=== PATIENT | female | born 1975 | race Caucasian/White ===

== ENCOUNTER 2018-04-30 19:15 | Emergency (ER) | payer OTHER, SELFPAY ==
[2018-04-30 19:16] VITALS: BP 160/94; PULSE 114; RESP 16; TEMP 36.9; O2SAT 97; BMI 21.7
--- NOTE | 2018-04-30 20:34 | ED.DCSUM_ITS ---
- ER Visit Summary Date of Service: 04/30/18 Chief Complaint: Wants EtOH level drawn History of Present Illness: The patient is a 42 F who reports that a custody agreement with her ex which allows for random alcohol checks. Patient reportedly blue at the level of approximately 0.014 tonight. Per the custody agreement she has to have a blood test drawn within 2 hours. Patient states she has not had any alcohol since 11 PM last night presents shortly after 7 PM for evaluation. She does not have a plan on how this blood test was supposed to be ordered when this is required so she came to the ER for her test. Physical Examination: Vital signs significant for blood pressure of 160/94 with a heart rate of 114. Patient sitting upright in bed no acute distress. Heart is regular rate and rhythm. Lung sounds clear. Abdomen soft nontender. Test Results: EtOH level was drawn and was specifically requested to run the same as she has a legal drop. This returns less than 3. Emergency Department Course and Treatment: I did discuss with the patient that this is not an appropriate emergency room test. The test that we run her alcohol levels off of it is not considered a legal test. Patient needs to contact her primary care physician or someone else who can have a standing order for this test when and if it is needed, but use of the emergency room for this test is not appropriate. Treatment Plan: [] Disposition: Discharge Impression: Requested lab draw This note was generated with [employer] dictation software. It may contain incorrect words, spelling, and punctuation that were not noted in review of the chart prior to signing ED Disposition - Plan for ED Patient: Disposition: Home or Assisted Living Chief Complaint: Abn Labs Referrals: Valerie Mullins MD [Primary Care Provider] -
[2018-04-30 21:47] LABS: Alcohol, Blood (Medical)-Serum < 3.0 mg/dL
[2018-04-30 22:12] VITALS: BP 149/99; PULSE 95; O2SAT 96
--- NOTE | 2018-04-30 22:13 | ED.RN ---
BLOOD ALCOHOL DONE ON ANOTHER MACHINE IN THE LAB WITH A RESULT OF < 3. RESULTS GIVEN TO PATIENT BY DR. BUSTAMANTE.
--- OUTSIDE RECORDS SUMMARY | 2018-06-24 00:53 | XMS RPT_ITS ---
:1975 Author Organization OH[facility] Care Team Providers Name Role Phone MICHAELA ABDUL Attending Unavailable TALAMPAS MICHAELA Aisha Attending Unavailable TALAMPASJULIANA Aisha Referring Unavailable Talampas, Michaela Attending Unavailable Talampas, Michaela Primary Care Unavailable Talampas Michaela Attending Unavailable Talampas, Michaela Referring Unavailable Talampas, Michaela Primary Care Unavailable Talampas, Michaela Primary Care Unavailable Edith Mccloud Attending Unavailable PROBLEMS PROBLEMS DATE TYPE CONDITION / CODE ATTENDING STATUS SOURCE 06/02/2017 Unknown G62.9 - Talampwillie, Michaela Active [facility] Polyneuropathy, Community unspecified / Hospital G62.9(ICD-10) Repository 06/02/2017 Unknown G43.109 - Talampas, Michaela Active [facility] Migraine with Community aura, not Hospital intractable, Repository without status migrainosus / G43.109(ICD-10) PROCEDURES PROCEDURES No Procedure Records FoundRESULTS RESULTS EMERGENCY DEPARTMENT Observed: 05/01/2018 Status: F Source: [place] SUMMARY 12:47 AM [facility] REPOSITORY [facility] Medical Records Department [address] [place] [address] Emergency Department Summary 04/30/182032 MR#: [id number] Acct: [id number] Name: ZARA MCINTOSH Rep #: [id number] : 1975 42 From: Edith Mccloud MD PCP: Michaela Abdul MD Status: DEP ER - ER Visit Summary Date of Service: 04/30/18 Chief Complaint: Wants EtOH level drawn History of Present Illness: The patient is a 42 F who reports that a custody agreement with her ex which allows for random alcohol checks. Patient reportedly blue at the level of approximately 0.014 tonight. Per the custody agreement she has to have a blood test drawn within 2 hours. Patient states she has not had any alcohol since 11 PM last night presents shortly after 7 PM for evaluation. She does not have a plan on how this blood test was supposed to be ordered when this is required so she came to the ER for her test. Physical Examination: Vital signs significant for blood pressure of 160/94 with a heart rate of 114. Patient sitting upright in bed no acute distress. Heart is regular rate and rhythm. Lung sounds clear. Abdomen soft nontender. Test Results: EtOH level was drawn and was specifically requested to run the same as she has a legal drop. This returns less than 3. Emergency Department Course and Treatment: I did discuss with the patient that this is not an appropriate emergency room test. The test that we run her alcohol levels off of it is not considered a legal test. Patient needs to contact her primary care physician or someone else who can have a standing order for this test when and if it is needed, but use of the emergency room for this test is not appropriate. Treatment Plan: [] Disposition: Discharge Impression: Requested lab draw This note was generated with Munchkin dictation software. It may contain incorrect words, spelling, and punctuation that were not noted in review of the chart prior to signing ED Disposition - Plan for ED Patient: Disposition: Home or Assisted Living Chief Complaint: Abn Labs Referrals: Michaela Abdul MD [Primary Care Provider] - What to do if you have Problems For any increased pain, shortness of breath, bleeding, nausea or vomiting, chest pain, or any unexpected problems, contact your Primary Care Provider. Call [facility] ([phone]) or report to the closest Emergency Room. Call 911 if necessary. 05/01/18 0047 <Electronically signed by Edith Mccloud MD> Date Edith Mccloud MD Cosigner Signature (If Indicated): Date CC: Michaela Abdul MD DISCHARGE INSTRUCTION Observed: 04/30/2018 Status: F Source: [place] 8:35 PM [facility] REPOSITORY [facility] Medical Records Department [address] [place] [address] Discharge Instruction 04/30/182033 MR#: [id number] Acct: [id number] Name: ZARA MCINTOSH Rep #: [id number] : 1975 42 From: Edith Mccloud MD PCP: Michaela Abdul MD Status: REG ER ED Disposition - Plan for ED Patient: Disposition: Home or Assisted Living Chief Complaint: Abn Labs Referrals: Michaela Abdul MD [Primary Care Provider] - What to do if you have Problems For any increased pain, shortness of breath, bleeding, nausea or vomiting, chest pain, or any unexpected problems, contact your Primary Care Provider. Call [facility] ([phone]) or report to the closest Emergency Room. Call 911 if necessary. 04/30/182034 <Electronically signed by Edith Mccloud MD> Date Edith Mccloud MD Cosigner Signature (If Indicated): Date CC: Michaela Abdul MD ALCOHOL, BLOOD Collected: 04/30/2018 Status: C Source: [place] (MEDICAL)-SERUM 7:44 PM [facility] REPOSITORY TYPE CODE TESTS RESULT OUT OF RANGE REFERENCE UNITS LAB L501.9100 mg/dL Normal SERUM < 3.0 ETOH Result Comment: RESULTS CALLED TO AMANDEEP 04/30/182145 Sofi Munguia. REPORT READ BACK BY SAME. The serum:whole blood ethanol ratio is approximately 1.14 and varies slightly with hematocrit. Medical Alcohol reference interval and critical value in non-tolerant individuals; 50 - 100 Impairment 100 Intoxication 100 - 250 Severe Poisoning 250 - 400 Deep/possible fatal coma AMENDED REPORT 04/30/182143 SERUM ETOH previously reported as: 3.0 mg/dL The serum:whole blood ethanol ratio is approximately 1.14 and varies slightly with hematocrit. Medical Alcohol reference interval and critical value in non-tolerant individuals; 50 - 100 Impairment 100 Intoxication 100 - 250 Severe Poisoning 250 - 400 Deep/possible fatal coma Performed By: #### L501.9100 #### [facility] [address] [place], [address] PROGRESS Observed: 04/18/2018 Status: COMPLETED Source: [place] 6:14 PM [facility] [place] REPOSITORY HNO ID: [id number] Author: Michaela Abdul Service: (none) Author Type: Physician Type: Progress Notes Filed: 04/30/2018 9:59 PM Note Text: This note was created using [employer]. Subjective Zara Mcintosh is a 42 year old female. Patient presents with: Recheck: Follow up SUBJECTIVE: Zara Mcintosh is a 42 year old year old lady here today for 6 month follow up appointment for review of medical conditions. Things doing okay. But still with nerve pain in hands. Tight shoes on feet feels better; cannot walk bare foot. Needs hard sole. Hands a little worse with being on computer more at work. Has not seen neurologist yet. Doing okay on anxiety med just orn. Noted spots on chest--not healing. at least 3 months. Can itch. Will bleed when itched but not severe bleeding. One with tiny crust. One in mid-chest there the longest. About 6mm diameter. Also noted issues with scalp psoriasis--scaling. has white plaques in the scalp. PAST MEDICAL HISTORY Diagnosis Date - Allergic rhinitis, cause unspecified 10/27/2006 - Diarrhea - Generalized anxiety disorder - Migraine headache with aura 01/17/2013 rarely has; only had 2 since last appointment - Polyneuropathy (HCC) EMG 2017 Current Outpatient Prescriptions: doxepin capsule 10 mg Take 2-3 capsules by mouth daily at bedtime. gabapentin (NEURONTIN) 100 mg capsule Take 1 capsule by mouth three times daily for 180 days. As directed DULoxetine (CYMBALTA) 20 mg capsule Take 1 capsule by mouth twice daily. SUMAtriptan (IMITREX) 50 mg tablet Take 1 tablet by mouth as needed. Take at onset of migraine and may repeat after 2 hours if needed prochlorperazine (COMPAZINE) 10 mg tablet Take 1 tablet by mouth every 6 hours as needed. Levocetirizine (XYZAL) 5 mg tablet Take one to two tablets once daily as needed (for itching, sneezing or runny nose.) Azelastine (ASTEPRO) 0.15 % (205.5 mcg) spry Use 2 Sprays in each nostril twice daily as needed. fluticasone (FLONASE) 50 mcg/actuation nasal spray 2 sprays to each nostril one to two times daily. olopatadine (PATANOL) 0.1 % ophthalmic solution Use 1-2 Drops in both eyes twice daily as needed. ALPRAZolam (XANAX) 0.25 mg tablet Take 1-2 tablets by mouth twice daily as needed for Anxiety for up to 30 days. cyanocobalamin (VITAMIN B-12) 1,000 mcg tab Take 1 tablet by mouth once daily. (Patient not taking: Reported on 10/22/2017 ) No current facility-administered medications for this visit. Review of Systems Skin: See HPI Neurological: See HPI Psychiatric/Behavioral: See HPI Objective BP 130/98 Pulse 88 Resp 20 Wt 61.9 kg (136 lb 6.4 oz) BMI 21.36 kg/m? Physical Exam Constitutional: She is oriented to person, place, and time. She appears well-developed and well-nourished. HENT: Head: Normocephalic. Eyes: Conjunctivae are normal. Cardiovascular: Normal rate and regular rhythm. Pulmonary/Chest: Effort normal and breath sounds normal. Neurological: She is alert and oriented to person, place, and time. Skin: Skin is warm and dry. Scalp with areas of white scale, some areas with thick while plaque Psychiatric: She has a normal mood and affect. Thought content normal. Assessment and Plan Encounter Diagnosis ICD-10-CM 1. Generalized anxiety disorder F41.1 ALPRAZolam (XANAX) 0.25 mg tablet DULoxetine (CYMBALTA) 20 mg capsule gabapentin (NEURONTIN) 100 mg capsule 2. Polyneuropathy (HCC) G62.9 DULoxetine (CYMBALTA) 20 mg capsule gabapentin (NEURONTIN) 100 mg capsule doxepin capsule 10 mg 3. Scalp psoriasis L40.9 mometasone (ELOCON) 0.1 % cream 4. Migraine with aura and without status migrainosus, not intractable G43.109 SUMAtriptan (IMITREX) 50 mg tablet flared up with stressors 5. Primary insomnia F51.01 gabapentin (NEURONTIN) 100 mg capsule doxepin capsule 10 mg 6. Skin lesions L98.9 CONSULT TO DERMATOLOGY chest--not resolving; nodular/papular; can be itchy Above issues addressed with patient. Patient involved in shared decision making for management of medical issues. History and medications reviewed. Epic updated as needed Refills taken care of and meds adjusted as indicated after reviewed history, exam and labs. Health Maintenance reviewed. Updated record and/or ordered tests as recorded. Encouraged on efforts at healthy diet and regular exercise and adequate sleep. Will try elocon for scalp while waiting to see instructional facilitator for scalp psoriasis issue as well as for the spot on her chest that she has been worried about. Further evaluation and treatment as indicated. Discussed ongoing pain issues. Meds as discussed. See neurologist as indicated. Further evaluation and treatment as indicated. Anxiety doing okay. Continue present management. PDMP website checked and validated. All prescriptions have been APPROPRIATELY filled. No suspicious activity was identified. 03/31/2018 by Michaela Abdul MD The majority of the visit was spent counseling and/or coordinating care for the patient. Cddz-km-zmjc time was at least 25 minutes. Michaela Abdul MD CNOV Observed: 04/18/2018 Status: COMPLETED Source: [place] 5:40 PM [facility] REPOSITORY Office Visit (INTMWS) ZARA MCINTOSH ([id number]) 1975 F Date Time Provider Department 04/18/18 5:40 PM MICHAELA ABDUL INTZ[place] During your visit today, we recorded the following information about you: Pulse Respiration Blood pressure Weight 88/minute 20/minute 130/98 61.9 kg Michaela Abdul MD 04/30/2018 9:59 PM Signed This note was created using [employer]. Subjective Zara Mcintosh is a 42 year old female. Patient presents with: Recheck: Follow up SUBJECTIVE: Zara Mcintosh is a 42 year old year old lady here today for 6 month follow up appointment for review of medical conditions. Things doing okay. But still with nerve pain in hands. Tight shoes on feet feels better; cannot walk bare foot. Needs hard sole. Hands a little worse with being on computer more at work. Has not seen neurologist yet. Doing okay on anxiety med just orn. Noted spots on chest--not healing. at least 3 months. Can itch. Will bleed when itched but not severe bleeding. One with tiny crust. One in mid-chest there the longest. About 6mm diameter. Also noted issues with scalp psoriasis--scaling. has white plaques in the scalp. PAST MEDICAL HISTORY Diagnosis Date - Allergic rhinitis, cause unspecified 10/27/2006 - Diarrhea - Generalized anxiety disorder - Migraine headache with aura 01/17/2013 rarely has; only had 2 since last appointment - Polyneuropathy (HCC) EMG 2017 Current Outpatient Prescriptions: doxepin capsule 10 mg Take 2-3 capsules by mouth daily at bedtime. gabapentin (NEURONTIN) 100 mg capsule Take 1 capsule by mouth three times daily for 180 days. As directed DULoxetine (CYMBALTA) 20 mg capsule Take 1 capsule by mouth twice daily. SUMAtriptan (IMITREX) 50 mg tablet Take 1 tablet by mouth as needed. Take at onset of migraine and may repeat after 2 hours if needed prochlorperazine (COMPAZINE) 10 mg tablet Take 1 tablet by mouth every 6 hours as needed. Levocetirizine (XYZAL) 5 mg tablet Take one to two tablets once daily as needed (for itching, sneezing or runny nose.) Azelastine (ASTEPRO) 0.15 % (205.5 mcg) spry Use 2 Sprays in each nostril twice daily as needed. fluticasone (FLONASE) 50 mcg/actuation nasal spray 2 sprays to each nostril one to two times daily. olopatadine (PATANOL) 0.1 % ophthalmic solution Use 1-2 Drops in both eyes twice daily as needed. ALPRAZolam (XANAX) 0.25 mg tablet Take 1-2 tablets by mouth twice daily as needed for Anxiety for up to 30 days. cyanocobalamin (VITAMIN B-12) 1,000 mcg tab Take 1 tablet by mouth once daily. (Patient not taking: Reported on 10/22/2017 ) No current facility-administered medications for this visit. Review of Systems Skin: See HPI Neurological: See HPI Psychiatric/Behavioral: See HPI Objective BP 130/98 Pulse 88 Resp 20 Wt 61.9 kg (136 lb 6.4 oz) BMI 21.36 kg/m? Physical Exam Constitutional: She is oriented to person, place, and time. She appears well-developed and well-nourished. HENT: Head: Normocephalic. Eyes: Conjunctivae are normal. Cardiovascular: Normal rate and regular rhythm. Pulmonary/Chest: Effort normal and breath sounds normal. Neurological: She is alert and oriented to person, place, and time. Skin: Skin is warm and dry. Scalp with areas of white scale, some areas with thick while plaque Psychiatric: She has a normal mood and affect. Thought content normal. Assessment and Plan Encounter Diagnosis ICD-10-CM 1. Generalized anxiety disorder F41.1 ALPRAZolam (XANAX) 0.25 mg tablet DULoxetine (CYMBALTA) 20 mg capsule gabapentin (NEURONTIN) 100 mg capsule 2. Polyneuropathy (HCC) G62.9 DULoxetine (CYMBALTA) 20 mg capsule gabapentin (NEURONTIN) 100 mg capsule doxepin capsule 10 mg 3. Scalp psoriasis L40.9 mometasone (ELOCON) 0.1 % cream 4. Migraine with aura and without status migrainosus, not intractable G43.109 SUMAtriptan (IMITREX) 50 mg tablet flared up with stressors 5. Primary insomnia F51.01 gabapentin (NEURONTIN) 100 mg capsule doxepin capsule 10 mg 6. Skin lesions L98.9 CONSULT TO DERMATOLOGY chest--not resolving; nodular/papular; can be itchy Above issues addressed with patient. Patient involved in shared decision making for management of medical issues. History and medications reviewed. Epic updated as needed Refills taken care of and meds adjusted as indicated after reviewed history, exam and labs. Health Maintenance reviewed. Updated record and/or ordered tests as recorded. Encouraged on efforts at healthy diet and regular exercise and adequate sleep. Will try elocon for scalp while waiting to see instructional facilitator for scalp psoriasis issue as well as for the spot on her chest that she has been worried about. Further evaluation and treatment as indicated. Discussed ongoing pain issues. Meds as discussed. See neurologist as indicated. Further evaluation and treatment as indicated. Anxiety doing okay. Continue present management. PDMP website checked and validated. All prescriptions have been APPROPRIATELY filled. No suspicious activity was identified. 03/31/2018 by Michaela Abdul MD The majority of the visit was spent counseling and/or coordinating care for the patient. Tqgq-ig-wdid time was at least 25 minutes. MD Michaela Dowell MD 04/18/2018 6:[address] Gonzalez--main practice in [place]; comes to [place]. Consider running socks or plantar fasciitis splints for night . Also can use the socks during the day. Okay to try Alpha lipoic acid and/or B12. Referring Provider: MICHAELA ABDUL [[id number]] Allergies As of Date: 04/18/2018 Noted Allergy Reaction CODEINE 11/29/2005 8 - GI Upset Comments: intolerance environmental [Other] 10/28/2011 14 - Other: See Comments Comments: Cats Dogs Dust mites grasses (September and October) weeds (December, January and February) ragweed (December, January and February MORPHINE 11/29/2005 11 - Vomiting PHENERGAN (PROMETHAZINE HCL) 11/29/2005 11 - Vomiting ZITHROMAX (AZITHROMYCIN) 11/29/2005 6 - Diarrhea 8 - GI Upset Comments: intolerance Date Reviewed: 04/18/2018 Reviewed by: Vanessa Barone LPN - Fully Assessed Reason for Visit: Recheck [92] Cmt: Follow up Primary Visit Diagnosis:Generalized anxiety disorder [F41.1] Other Visit Diagnoses:Polyneuropathy (HCC) [G62.9] Scalp psoriasis [L40.9] Migraine with aura and without status migrainosus, not intractable [G43.109] Comment:flared up with stressors Primary insomnia [F51.01] Skin lesions [L98.9] Comment:chest--not resolving; nodular/papular; can be itchy Order(s):ALPRAZolam (XANAX) 0.25 mg tabletTake 1-2 tablets by mouth twice daily as needed for Anxiety for up to 180 days.Disp: 40 tabletRfl: 1 DULoxetine (CYMBALTA) 20 mg capsuleTake 1 capsule by mouth twice daily.Disp: 180 capsuleRfl: 3 SUMAtriptan (IMITREX) 50 mg tabletTake 1 tablet by mouth as needed. Take at onset of migraine and may repeat after 2 hours if neededDisp: 27 tabletRfl: 3 gabapentin (NEURONTIN) 100 mg capsuleTake 1-2 capsules by mouth three times daily for 180 days. As directedDisp: 540 capsuleRfl: 1 doxepin capsule 10 mgTake 2 capsules by mouth daily at bedtime.Disp: 180 capsuleRfl: 3 CONSULT TO DERMATOLOGY [9003] Order #: [id number]: 1 mometasone (ELOCON) 0.1 % creamApply 1 application to affected area once daily. To scalp. Rinse off in morningDisp: 45 gRfl: 2 Prescriptions as of 04/18/2018 Sig: DULOXETINE 20 MG CAPSULE,CASSIE* Take 1 capsule by mouth twice* SUMATRIPTAN 50 MG TABLET Take 1 tablet by mouth as nee* GABAPENTIN 100 MG CAPSULE Take 1-2 capsules by mouth th* DOXEPIN 10 MG CAPSULE Take 2 capsules by mouth teresa* PROCHLORPERAZINE MALEATE 10 M* Take 1 tablet by mouth every * LEVOCETIRIZINE 5 MG TABLET Take one to two tablets once * AZELASTINE 0.15 % (205.5 MCG)* Use 2 Sprays in each nostril * FLUTICASONE 50 MCG/ACTUATION * 2 sprays to each nostril one * OLOPATADINE 0.1 % EYE DROPS Use 1-2 Drops in both eyes tw* ALPRAZOLAM 0.25 MG TABLET Take 1-2 tablets by mouth twi* MOMETASONE 0.1 % TOPICAL CREAM Apply 1 application to affect* CYANOCOBALAMIN (VIT B-12) 1,0* Take 1 tablet by mouth once d* Patient not taking: Reported on 10/22/2017 Problem List As Of Date 04/18/2018 Noted Resolved ALLERGIC RHINITIS NOS [J30.9] INVALID FOR* GENERALIZED ANXIETY DIS [F41.1] ASTHMA UNSPECIFIED WITH EXAC [J45.901] INVALID FOR* Insomnia [G47.00] INVALID FOR* Acute atopic conjunctivitis [H10.10] INVALID FOR* More... Menorrhagia [N92.0] INVALID FOR* PMDD (premenstrual dysphoric disorder) [F32.81] INVALID FOR* Dysmenorrhea [N94.6] INVALID FOR* Diarrhea [R19.7] Migraine with aura and without status migrainos*INVALID FOR* Polyneuropathy (HCC) [G62.9] More... Other instructions from your clinician: Dr. Gonzalez--main practice in [place]; comes to [place]. Consider running socks or plantar fasciitis splints for night . Also can use the socks during the day. Okay to try Alpha lipoic acid and/or B12. Prescriptions ordered this encounter Disp Refills Start End ALPRAZOLAM 0.25 MG TABLET 40 t* 1 04/18/2018 10/15/2018 Class: Print RX Cmt: 40 pills for 3 months and with 1 refill lasts at least 6 months Route: ORAL Sig: Take 1-2 tablets by mouth twice daily as needed for Anxiety for up to 180 days. DULOXETINE 20 MG CAPSULE,DELAYED REL* 180 * 3 04/18/2018 Route: ORAL Sig: Take 1 capsule by mouth twice daily. SUMATRIPTAN 50 MG TABLET 27 t* 3 04/18/2018 Class: [facility] Route: ORAL Sig: Take 1 tablet by mouth as needed. Take at onset of migraine and may repeat after 2 hours if needed GABAPENTIN 100 MG CAPSULE 540 * 1 04/18/2018 10/15/2018 Class: [facility] Route: ORAL Sig: Take 1-2 capsules by mouth three times daily for 180 days. As directed DOXEPIN 10 MG CAPSULE 180 * 3 04/18/2018 Class: [facility] Route: ORAL Sig: Take 2 capsules by mouth daily at bedtime. MOMETASONE 0.1 % TOPICAL CREAM 45 g 2 04/18/2018 Route: TOPICAL Sig: Apply 1 application to affected area once daily. To scalp. Rinse off in morning Medications Discontinued During This Encounter ALPRAZolam (XANAX) 0.25 mg tablet 20 t* 0 12/20/2017 04/18/2018 Class: Print RX Route: ORAL Sig: Take 1-2 tablets by mouth twice daily as needed for Anxiety for up to 30 days. Disc: Reason for discontinue is not on file. DULoxetine (CYMBALTA) 20 mg capsule 60 c* 5 10/22/2017 04/18/2018 Route: ORAL Sig: Take 1 capsule by mouth twice daily. Disc: Reason for discontinue is not on file. SUMAtriptan (IMITREX) 50 mg tablet 9 ta* 2 09/21/2017 04/18/2018 Route: ORAL Sig: Take 1 tablet by mouth as needed. Take at onset of migraine and may repeat after 2 hours if needed Disc: Reason for discontinue is not on file. gabapentin (NEURONTIN) 100 mg capsule 90 c* 5 10/22/2017 04/18/2018 Route: ORAL Sig: Take 1 capsule by mouth three times daily for 180 days. As directed Disc: Reason for discontinue is not on file. doxepin capsule 10 mg 90 c* 11 10/22/2017 04/18/2018 Route: ORAL Sig: Take 2-3 capsules by mouth daily at bedtime. Disc: Reason for discontinue is not on file. Disposition: Return in about 6 months (around 10/16/2018) for 6 months follow up. Follow-up and Disposition History Recorded Encounter Status:Closed by MICHAELA ABDUL MD on 04/30/18 PROGRESS Observed: 10/22/2017 Status: COMPLETED Source: [place] 9:04 AM [facility] REPOSITORY O ID: [id number] Author: Michaela Abdul Service: (none) Author Type: Physician Type: Progress Notes Filed: 11/02/2017 1:10 AM Note Text: Patient presents with: Recheck SUBJECTIVE: Zara Mcintosh is a 42 year old year old lady here today for follow up appointment for review of medical conditions. Ongoing pain in both feet. Hands numb but not painful. Noted had EMG lower extremities and declined getting upper extremity EMGs. Not sleeping well. Hard to be active. Contributes to depression and anxiety. PAST MEDICAL HISTORY Diagnosis Date - Allergic rhinitis, cause unspecified 10/27/2006 - Diarrhea - Generalized anxiety disorder - Migraine headache with aura 01/17/2013 rarely has; only had 2 since last appointment Current Outpatient Prescriptions: ALPRAZolam (XANAX) 0.25 mg tablet Take 1-2 tablets by mouth twice daily as needed for Anxiety for up to 30 days. doxepin capsule 10 mg Take 1-3 capsules by mouth daily at bedtime. SUMAtriptan (IMITREX) 50 mg tablet Take 1 tablet by mouth as needed. Take at onset of migraine and may repeat after 2 hours if needed gabapentin (NEURONTIN) 100 mg capsule Take 1 capsule by mouth daily at bedtime for 30 days. prochlorperazine (COMPAZINE) 10 mg tablet Take 1 tablet by mouth every 6 hours as needed. DULoxetine (CYMBALTA) 20 mg capsule Take 1 capsule by mouth once daily. Levocetirizine (XYZAL) 5 mg tablet Take one to two tablets once daily as needed (for itching, sneezing or runny nose.) Azelastine (ASTEPRO) 0.15 % (205.5 mcg) spry Use 2 Sprays in each nostril twice daily as needed. fluticasone (FLONASE) 50 mcg/actuation nasal spray 2 sprays to each nostril one to two times daily. olopatadine (PATANOL) 0.1 % ophthalmic solution Use 1-2 Drops in both eyes twice daily as needed. cyanocobalamin (VITAMIN B-12) 1,000 mcg tab Take 1 tablet by mouth once daily. (Patient not taking: Reported on 10/22/2017 ) No current facility-administered medications for this visit. OBJECTIVE: BP 112/60 (BP Site: Right Arm, BP Position: Sitting, BP Cuff Size: Regular Adult) Pulse 100 Temp 37.2 ?C (98.9 ?F) (Temporal Artery) Resp 20 Wt 58.1 kg (128 lb) BMI 20.05 kg/m? Patient is alert, oriented times 3, no apparent distress, affect is bright, reactive. Heart: Regular rate, rhythm, no murmurs, gallops, rubs. Lungs: Clear to auscultation, bilaterally, breathing non labored. Ext: No cyanosis, clubbing, or edema. pain with light touch legs ASSESSMENT AND PLAN: Encounter Diagnosis ICD-10-CM 1. Polyneuropathy (HCC) G62.9 doxepin capsule 10 mg gabapentin (NEURONTIN) 100 mg capsule DULoxetine (CYMBALTA) 20 mg capsule 2. Primary insomnia F51.01 doxepin capsule 10 mg gabapentin (NEURONTIN) 100 mg capsule 3. Generalized anxiety disorder F41.1 gabapentin (NEURONTIN) 100 mg capsule DULoxetine (CYMBALTA) 20 mg capsule Meds as above. Will adjust meds as needed to help with control of pain as well as depression and anxiety symptoms associated with persistent and chronic pain. Make sure sleeping adequately since sleep deprivation can contribute to increased pain. Discussed that Cymbalta can help with pain as well as depression and anxiety. Doxepin for sleep could be increased as needed as tolerated for better sleep and pain control. Further evaluation and treatment as indicated. Will hold off on EMG/NCT upper extremity for now. Above issues addressed with patient. Patient involved in shared decision making for management of her medical issues. History and medications reviewed. Epic updated as needed Refills taken care of and meds adjusted as indicated after reviewed history, exam and labs. Health Maintenance reviewed. Updated record and/or ordered tests as recorded. Encouraged on efforts at healthy diet and regular exercise and adequate sleep. The majority of the visit was spent counseling and/or coordinating care for the patient. Dwpw-oa-cnbv time was at least 25 minutes. Michaela Abdul MD CNOV Observed: 10/22/2017 Status: COMPLETED Source: [place] 8:20 AM [facility] REPOSITORY Office Visit (INTMWS) ZARA MCINTOSH ([id number]) 1975 F Date Time Provider Department 10/22/17 8:20 AM MICHAELA ABDUL [facility] During your visit today, we recorded the following information about you: Temperature Pulse Respiration Blood pressure 98.9 degrees 100/minute 20/minute 112/60 Weight 58.1 kg Michaela Abdul MD 11/02/2017 1:10 AM Signed Patient presents with: Recheck SUBJECTIVE: Zara Mcintosh is a 42 year old year old lady here today for follow up appointment for review of medical conditions. Ongoing pain in both feet. Hands numb but not painful. Noted had EMG lower extremities and declined getting upper extremity EMGs. Not sleeping well. Hard to be active. Contributes to depression and anxiety. PAST MEDICAL HISTORY Diagnosis Date - Allergic rhinitis, cause unspecified 10/27/2006 - Diarrhea - Generalized anxiety disorder - Migraine headache with aura 01/17/2013 rarely has; only had 2 since last appointment Current Outpatient Prescriptions: ALPRAZolam (XANAX) 0.25 mg tablet Take 1-2 tablets by mouth twice daily as needed for Anxiety for up to 30 days. doxepin capsule 10 mg Take 1-3 capsules by mouth daily at bedtime. SUMAtriptan (IMITREX) 50 mg tablet Take 1 tablet by mouth as needed. Take at onset of migraine and may repeat after 2 hours if needed gabapentin (NEURONTIN) 100 mg capsule Take 1 capsule by mouth daily at bedtime for 30 days. prochlorperazine (COMPAZINE) 10 mg tablet Take 1 tablet by mouth every 6 hours as needed. DULoxetine (CYMBALTA) 20 mg capsule Take 1 capsule by mouth once daily. Levocetirizine (XYZAL) 5 mg tablet Take one to two tablets once daily as needed (for itching, sneezing or runny nose.) Azelastine (ASTEPRO) 0.15 % (205.5 mcg) spry Use 2 Sprays in each nostril twice daily as needed. fluticasone (FLONASE) 50 mcg/actuation nasal spray 2 sprays to each nostril one to two times daily. olopatadine (PATANOL) 0.1 % ophthalmic solution Use 1-2 Drops in both eyes twice daily as needed. cyanocobalamin (VITAMIN B-12) 1,000 mcg tab Take 1 tablet by mouth once daily. (Patient not taking: Reported on 10/22/2017 ) No current facility-administered medications for this visit. OBJECTIVE: BP 112/60 (BP Site: Right Arm, BP Position: Sitting, BP Cuff Size: Regular Adult) Pulse 100 Temp 37.2 ?C (98.9 ?F) (Temporal Artery) Resp 20 Wt 58.1 kg (128 lb) BMI 20.05 kg/m? Patient is alert, oriented times 3, no apparent distress, affect is bright, reactive. Heart: Regular rate, rhythm, no murmurs, gallops, rubs. Lungs: Clear to auscultation, bilaterally, breathing non labored. Ext: No cyanosis, clubbing, or edema. pain with light touch legs ASSESSMENT AND PLAN: Encounter Diagnosis ICD-10-CM 1. Polyneuropathy (HCC) G62.9 doxepin capsule 10 mg gabapentin (NEURONTIN) 100 mg capsule DULoxetine (CYMBALTA) 20 mg capsule 2. Primary insomnia F51.01 doxepin capsule 10 mg gabapentin (NEURONTIN) 100 mg capsule 3. Generalized anxiety disorder F41.1 gabapentin (NEURONTIN) 100 mg capsule DULoxetine (CYMBALTA) 20 mg capsule Meds as above. Will adjust meds as needed to help with control of pain as well as depression and anxiety symptoms associated with persistent and chronic pain. Make sure sleeping adequately since sleep deprivation can contribute to increased pain. Discussed that Cymbalta can help with pain as well as depression and anxiety. Doxepin for sleep could be increased as needed as tolerated for better sleep and pain control. Further evaluation and treatment as indicated. Will hold off on EMG/NCT upper extremity for now. Above issues addressed with patient. Patient involved in shared decision making for management of her medical issues. History and medications reviewed. Epic updated as needed Refills taken care of and meds adjusted as indicated after reviewed history, exam and labs. Health Maintenance reviewed. Updated record and/or ordered tests as recorded. Encouraged on efforts at healthy diet and regular exercise and adequate sleep. The majority of the visit was spent counseling and/or coordinating care for the patient. Mwnn-ib-cjrm time was at least 25 minutes. MD Michaela Dowell MD 10/22/2017 9:[address] Gonzalez for Neurology Referring Provider: SELF [[id number]] Allergies As of Date: 10/22/2017 Noted Allergy Reaction CODEINE 11/29/2005 8 - GI Upset Comments: intolerance environmental [Other] 10/28/2011 14 - Other: See Comments Comments: Cats Dogs Dust mites grasses (September and October) weeds (December, January and February) ragweed (December, January and February MORPHINE 11/29/2005 11 - Vomiting PHENERGAN (PROMETHAZINE HCL) 11/29/2005 11 - Vomiting ZITHROMAX (AZITHROMYCIN) 11/29/2005 6 - Diarrhea 8 - GI Upset Comments: intolerance Date Reviewed: 10/22/2017 Reviewed by: Ave Lara LPN - Fully Assessed Reason for Visit: Recheck [92] Primary Visit Diagnosis:Polyneuropathy (HCC) [G62.9] Other Visit Diagnoses:Primary insomnia [F51.01] Generalized anxiety disorder [F41.1] Order(s):doxepin capsule 10 mgTake 2-3 capsules by mouth daily at bedtime.Disp: 90 capsuleRfl: 11 gabapentin (NEURONTIN) 100 mg capsuleTake 1 capsule by mouth three times daily for 180 days. As directedDisp: 90 capsuleRfl: 5 DULoxetine (CYMBALTA) 20 mg capsuleTake 1 capsule by mouth twice daily.Disp: 60 capsuleRfl: 5 Prescriptions as of 10/22/2017 Sig: DOXEPIN 10 MG CAPSULE Take 2-3 capsules by mouth da* GABAPENTIN 100 MG CAPSULE Take 1 capsule by mouth three* DULOXETINE 20 MG CAPSULE,CASSIE* Take 1 capsule by mouth twice* ALPRAZOLAM 0.25 MG TABLET Take 1-2 tablets by mouth twi* SUMATRIPTAN 50 MG TABLET Take 1 tablet by mouth as nee* PROCHLORPERAZINE MALEATE 10 M* Take 1 tablet by mouth every * LEVOCETIRIZINE 5 MG TABLET Take one to two tablets once * AZELASTINE 0.15 % (205.5 MCG)* Use 2 Sprays in each nostril * FLUTICASONE 50 MCG/ACTUATION * 2 sprays to each nostril one * OLOPATADINE 0.1 % EYE DROPS Use 1-2 Drops in both eyes tw* CYANOCOBALAMIN (VIT B-12) 1,0* Take 1 tablet by mouth once d* Patient not taking: Reported on 10/22/2017 Problem List As Of Date 10/22/2017 Noted Resolved ALLERGIC RHINITIS NOS [J30.9] INVALID FOR* GENERALIZED ANXIETY DIS [F41.1] ASTHMA UNSPECIFIED WITH EXAC [J45.901] INVALID FOR* Insomnia [G47.00] INVALID FOR* Acute atopic conjunctivitis [H10.10] INVALID FOR* More... Menorrhagia [N92.0] INVALID FOR* PMDD (premenstrual dysphoric disorder) [F32.81] INVALID FOR* Dysmenorrhea [N94.6] INVALID FOR* Diarrhea [R19.7] Migraine with aura and without status migrainos*INVALID FOR* Polyneuropathy (HCC) [G62.9] More... Other instructions from your clinician: Dr. Gonzalez for Neurology Prescriptions ordered this encounter Disp Refills Start End DOXEPIN 10 MG CAPSULE 90 c* 11 10/22/2017 Route: ORAL Sig: Take 2-3 capsules by mouth daily at bedtime. GABAPENTIN 100 MG CAPSULE 90 c* 5 10/22/2017 04/20/2018 Route: ORAL Sig: Take 1 capsule by mouth three times daily for 180 days. As directed DULOXETINE 20 MG CAPSULE,DELAYED REL* 60 c* 5 10/22/2017 Route: ORAL Sig: Take 1 capsule by mouth twice daily. Medications Discontinued During This Encounter doxepin capsule 10 mg 90 c* 0 09/21/2017 10/22/2017 Route: ORAL Sig: Take 1-3 capsules by mouth daily at bedtime. Disc: Reason for discontinue is not on file. gabapentin (NEURONTIN) 100 mg capsule 30 c* 0 09/21/2017 10/22/2017 Route: ORAL Sig: Take 1 capsule by mouth daily at bedtime for 30 days. Disc: Reason for discontinue is not on file. DULoxetine (CYMBALTA) 20 mg capsule 30 c* 2 04/25/2017 10/22/2017 Route: ORAL Sig: Take 1 capsule by mouth once daily. Disc: Reason for discontinue is not on file. Disposition: Return in about 6 months (around 04/24/2018) for 6 months follow up. Follow-up and Disposition History Recorded Encounter Status:Closed by MICHAELA ABDUL MD on 11/02/17 CNPTOUTRNNEKA Observed: 10/04/2017 Status: COMPLETED Source: [place] 12:00 AM [facility] REPOSITORY Patient Outreach (INTMWH) LEAZARA ([id number]) 1975 F Date Time Provider Department 10/04/17 MICHAELA ABDUL [facility] During your visit today, we recorded the following information about you: Allergies As of Date: 10/04/2017 Noted Allergy Reaction CODEINE 11/29/2005 8 - GI Upset Comments: intolerance environmental [Other] 10/28/2011 14 - Other: See Comments Comments: Cats Dogs Dust mites grasses (September and October) weeds (December, January and February) ragweed (December, January and February MORPHINE 11/29/2005 11 - Vomiting PHENERGAN (PROMETHAZINE HCL) 11/29/2005 11 - Vomiting ZITHROMAX (AZITHROMYCIN) 11/29/2005 6 - Diarrhea 8 - GI Upset Comments: intolerance Date Reviewed: 04/25/2017 Reviewed by: Vanessa Barone LPN - Fully Assessed Visit Diagnosis:Medication management [Z79.899] Order(s):HGB A1C [MRYYP2W] Order #: [id number] FUTURE LIPID PANEL BASIC [SQLIPB] Order #: [id number] FUTURE Prescriptions as of 10/04/2017 Sig: SUMATRIPTAN 50 MG TABLET Take 1 tablet by mouth as nee* X ALPRAZOLAM 0.25 MG TABLET Take 1-2 tablets by mouth twi* X DOXEPIN 10 MG CAPSULE Take 1-3 capsules by mouth da* X GABAPENTIN 100 MG CAPSULE Take 1 capsule by mouth daily* PROCHLORPERAZINE MALEATE 10 M* Take 1 tablet by mouth every * X DULOXETINE 20 MG CAPSULE,CASSIE* Take 1 capsule by mouth once * LEVOCETIRIZINE 5 MG TABLET Take one to two tablets once * CYANOCOBALAMIN (VIT B-12) 1,0* Take 1 tablet by mouth once d* Patient not taking: Reported on 10/22/2017 AZELASTINE 0.15 % (205.5 MCG)* Use 2 Sprays in each nostril * FLUTICASONE 50 MCG/ACTUATION * 2 sprays to each nostril one * OLOPATADINE 0.1 % EYE DROPS Use 1-2 Drops in both eyes tw* Problem List As Of Date 10/04/2017 Noted Resolved ALLERGIC RHINITIS NOS [J30.9] INVALID FOR* GENERALIZED ANXIETY DIS [F41.1] ASTHMA UNSPECIFIED WITH EXAC [J45.901] INVALID FOR* Insomnia [G47.00] INVALID FOR* Acute atopic conjunctivitis [H10.10] INVALID FOR* More... Menorrhagia [N92.0] INVALID FOR* PMDD (premenstrual dysphoric disorder) [F32.81] INVALID FOR* Dysmenorrhea [N94.6] INVALID FOR* Diarrhea [R19.7] Migraine with aura and without status migrainos*INVALID FOR* Encounter Status:Closed by EPIC, PRODUSER on 03/10/18 NCS AND/OR EMG Observed: 06/01/2017 Status: F Source: [place] PATIENT 3:44 PM [facility] REPOSITORY [facility] Pulmonary Services/Neurology [address] [place] [address] MR#: [id number] Acct: [id number] Name: ZARA MCINTOSH Rep #: [id number] : 1975 41 From: Tello Guillory MD Referring Dr: Michaela Abdul MD Status: REG CLI Ordering Dr: Date: Location: [facility] Sex: F C NCS and/or EMG Patient Report Ordering Doctor: Michaela Abdul DATE OF SERVICE: 06/01/17 Zara Mcintosh is a 41-year-old female with chief complaint of numbness and burning in both feet. Symptoms have been present for approximately 1 year. She also is noticing numbness in the fingertips. She denies any injury. She reports difficulty walking long distances. Electrodiagnostic findings: Left peroneal motor nerve demonstrates normal distal latency, amplitude with mildly reduction and reduced conduction velocity. Right peroneal motor nerve demonstrates normal distal latency, normal amplitude and mildly reduced conduction velocity. Reduced tibial conduction velocity is noted bilaterally with mildly prolonged right sided distal latency. Prolonged sural latency is noted bilaterally. On needle EMG, all muscles tested in the lower limbs showed no evidence of denervation with normal motor unit action potentials. Electrodiagnostic impression: This is an abnormal study in the lower limbs. 1. Findings suggestive of peripheral polyneuropathy, with evidence of motor and sensory nerve involvement. Etiology of this condition is unknown. Would recommend correlation with one upper limb for a more complete study. 2. No electrodiagnostic evidence is noted for lumbosacral radiculopathy. If there are any further questions, please do not hesitate to contact me 06/01/17 1544 <Electronically signed by Tello Guillory MD> Date Tello Guillory MD CC: Tello Guillory; Michaela Abdul MD Date Dictated: 06/01/17 1501 Date Transcribed: 06/01/171500 [employer] [place] Partie: PARRIS Signed ALLERGIES ALLERGIES DATE TYPE / CODE NAME / CODE REACTION SEVERITY SOURCE Drug codeine/[id number] Nausea Unknown [place] 8 Allergy/558687832( 0(RXNORM) [facility] Drug azithromycin/F006 Diarrhea Unknown [place] 8 Allergy/916639257( 569662(RXNORM) [facility] SNOMED CT) Hospital Repository Drug No Known Unknown [place] 3 Allergy/898441716( Allergies/C959869 [facility]) 388(RXNORM) Hospital Repository Miscellaneous OTHER OTHER: SEE C [place] 2 Allergy/570301779( [facility] SNOMED CT) [place] Rep[facility] DRUG CODEINE GI UPSET [place] 6 INGREDI/327615385( [facility] SNOMED CT) [place] [facility] DRUG MORPHINE Vomiting [place] 6 INGREDI/306833688( [facility] SNOMED CT) [place] [facility] DRUG PROMETHAZINE HCL Vomiting [place] 6 INGREDI/939062650( [facility] SNOMED CT) [place] Rep[facility] DRUG AZITHROMYCIN DIARRHEA [place] 6 INGREDI/590388142( [facility] SNOMED CT) [place] Rep[facility] ENCOUNTERS ENCOUNTERS ADMIT/DISCHARGE ACCOUNT ADMITTING ENCOUNTER LOCATION SOURCE NUMBER CLASS 04/30/2018/04/30/20 [id number] Emergency [place] 18 [facility] ing:ED Repository 04/18/2018/05/01/20 [id number] Ambulatory [address] Repository 10/22/2017/11/03/19 [id number] Ambulatory [address] Repository 09/13/2017 [id number] General acute hospital ing:PSN Repository 06/01/2017 [id number] General acute hospital ing:PSN Repository PAYERS PAYERS ENCOUNTER GUARANTOR PAYER SUBSCRIBER SOURCE 04/30/2018 ZARA L Primary ZARA L [place] [id number] Insurance:MEDICAL METSKERDOB: [facility] [id number] Number: Repository [address]Kje: [phone] [id number] [phone] () Date:[id number] [address] [place] [address]UR: 04/30/2018 Secondary NOT GIVENUNK Negin Insurance:SELF PAY [facility] Number: Effective Repository Date:2018-04-30 09/13/2017 ZARA L Primary ZARA L Negin [id number] [place] Insurance:[facility] METSKERDOB: [address] [id number] [address]Zgm: [phone]) Number: Repository [phone] () [id number] Date:[id number] [address], [place] [address]WX: 09/13/2017 Secondary NOT GIVENUNK Negin Insurance:SELF PAY [facility] Number: Effective Repository Date:2017-06-24 06/01/2017 ZARA L Primary ZARA L Negin [id number] Insurance:[facility] METSKERDOB: [place] [address], [place] Number: Repository [id number]: [phone] [phone] () Date:[id number], [place] [address]WO: 06/01/2017 Secondary NOT GIVENUNK Negin Insurance:SELF PAY [facility] Number: Effective Repository Date:2017-04-27
== END 2018-04-30 22:13 | disposition home or self-care (01) ==
PROVIDERS: Emergency Provider Emergency Medicine; Family Provider Internal Medicine; PCP Internal Medicine
DX: Z02.83 Encounter for blood-alcohol and blood-drug test (principal); F41.9 Anxiety disorder, unspecified; G62.9 Polyneuropathy, unspecified; Z79.899 Other long term (current) drug therapy
CPT/HCPCS: 80320; 99282; G0480

== ENCOUNTER 2019-08-30 12:28 | Inpatient (IN) | payer OTHER, SELFPAY ==
[2019-08-30 12:30] VITALS: BP 152/89; PULSE 115; RESP 18; TEMP 36.4; O2SAT 97; BMI 22.4
--- NOTE | 2019-08-30 12:42 | US_ITS ---
STUDY: ABDOMINAL ULTRASOUND - RIGHT UPPER QUADRANT REASON FOR VISIT: Female, 44 years old ABD PAIN -- ASCITES TECHNIQUE: Ultrasound evaluation of the right upper quadrant was performed with real-time and static santo-scale imaging. TECHNICAL QUALITY: Limited. Examination limited due to the patient?s condition. COMPARISON: None. FINDINGS: Liver: The liver is enlarged and measures 19.4 cm. There is increased echogenicity consistent with fatty infiltration. The bile ducts are within normal limits. There is hepatic color flow. The direction of portal flow is hepatopetal. There is no demonstrated mass lesion. Gallbladder: Normal distended gallbladder. The gallbladder wall measures 1.8 mm. There is a negative sonographic Moore''s sign. There is no pericholecystic fluid. There are no gallstones. Common Bile Duct (C.B.D.): The common bile duct measures 6.2 mm. Pancreas: Normal size of the head, body and tail of the pancreas. There is normal echogenicity of the pancreas. There is no demonstrated pancreatic mass or cyst. Right Kidney: Normal size of the right kidney. The right kidney measures 10.2 cm x 4.8 cm x 3.9 cm. Normal renal cortex. The right cortex measures 1.1 cm. There is no demonstrated renal mass or cyst. There is no right hydronephrosis. US/Abdomen Limited IMPRESSION: Hepatomegaly. Diffuse fatty infiltration of the liver. Electronically Signed: Denzel Quijano, at 14:25 EDT , Service support ,
--- NOTE | 2019-08-30 12:43 | EKG12_ITS ---
Test Reason : Blood Pressure : / mmHG Vent. Rate : 095 BPM Atrial Rate : 095 BPM P-R Int : 144 ms QRS Dur : 072 ms QT Int : 336 ms P-R-T Axes : 050 061 041 degrees QTc Int : 422 ms Normal sinus rhythm Normal ECG Confirmed by EDUARDO BECK, SIN ([id number]), digital editor YUE JACOBO ([id number]) on 09/04/2019 2:16:09 PM Referred By: CHAYO Confirmed By:TELMA CLARK MD
--- NOTE | 2019-08-30 12:44 | ED.DCSUM_ITS ---
History of Present Illness Informant: Patient - Abdominal Pain/Flank Pain Onset: Yesterday Context: Gradual Onset Timing: Continuous Quality: Dull Location: Diffuse Current Severity: Severe Maximum Severity: Severe Worsened by: Movement Relieved by: Remaining Still - Nausea/Vomiting/Emesis GI Symptom: Nausea. Negative for: Vomiting - Diarrhea/Melena/Hematochezia GI Symptom: Negative for: Diarrhea, Melena, Hematochezia Associated Symptoms: Negative for: Dysuria, Frequency, Hematuria, Urgency Narrative: 44-year-old female presents to the emergency department with diffuse abdominal pain and distention that she states is been getting worse since yesterday. Her abdomen is extremely swollen. She has not had any vomiting or diarrhea, melena or hematochezia. No urinary symptoms or back pain. No chest pain or shortness of breath. No leg pain or swelling. She denies history of similar symptoms. She has been eating and drinking normally. She has not had a fever. Denies alcohol use. Denies drug use. Denies history of cirrhosis or hepatitis. Prior similar symptoms: No Recent Illness/Hospitalization: No <Elliot Cabezas - Last Filed: 08/30/19 17:21> <Mya Davies - Last Filed: 08/30/19 18:25> Chief Complaint: Abd Pain Past Medical History Prior records reviewed: Yes Past Medical History: - - Hypertension, hyperlipidemia, type 2 diabetes mellitus, peripheral neuropathy Surgical History: no surgical history Smoking Status: Current every day smoker <Elliot Cabezas - Last Filed: 08/30/19 17:21> <Mya Davies - Last Filed: 08/30/19 18:25> - Allergies and Home Meds Allergies/Adverse Reactions: Allergies azithromycin [From Zithromax] Adverse Reaction (Verified 08/30/19 12:32) Diarrhea codeine Adverse Reaction (Verified 08/30/19 12:32) Nausea promethazine [From Phenergan] Adverse Reaction (Verified 08/30/19 15:11) Vomiting Primary Care Physician: Valerie Mullins MD [Primary Care Provider] - Review of Systems All systems negative except as indicated General: Denies: Chills, Fever Eyes: Denies: Visual changes - bilaterally, Blurred Vision - bilaterally, Diplopia ENT: Denies: Rhinorrhea, Sore throat Cardiovascular: Denies: Chest pain, Palpitations, Heart racing Respiratory: Denies: Dyspnea, Cough, Sputum, Dyspnea on exertion, Orthopnea, Paroxysmal nocturnal dyspnea Gastrointestinal: Reports: Abdominal pain. Denies: Nausea, Vomiting, Diarrhea, Constipation, Melena, Hematochezia Genitourinary: Denies: Dysuria, Hematuria, Frequency Musculoskeletal: Denies: Myalgias, Arthralgias, Neck pain, Back pain, Swelling, Extremity Pain Skin: Denies: Rash, Abscess, Abrasions, Wounds Neurological: Denies: Headache, Weakness, Parasthesia, Numbness <Elliot Cabezas - Last Filed: 08/30/19 17:21> Physical Exam Vital Signs/Narrative: Vital Signs Temp Pulse Resp BP Pulse Ox 08/30/19 12:30 97.6 F L 115 H 18 152/89 H 97 Inital Vital Signs reviewed: Yes General: Well nourished, Well developed, No Acute Distress Head: Normocephalic, Atraumatic Eyes: Perrl, EOMI ENT: Moist mucous membranes Neck: Supple, Nontender Cardiovascular: Regular rate, Regular rhythm, No murmurs Respiratory: No distress, CTA bilaterally, Chest nontender Abdomen: Soft, Nontender, Normal bowel sounds, - - diffusely distended with positive fluid wave Back: Nontender, Normal Inspection Extremities: Nontender, No edema Skin: Normal color, No rash, No Trauma Neurological: Alert, Oriented x3 Psychological: Normal affect, Normal Mood <Elliot Cabezas - Last Filed: 08/30/19 17:21> Vital Signs/Narrative: Vital Signs Pulse Resp BP Pulse Ox 08/30/19 17:08 89 16 143/91 H 96 <Mya Davies - Last Filed: 08/30/19 18:25> Diagnostic/Tx/Re-eval - Medical Decision Making Patient's pain initially treated with Toradol fluids and Zofran. Laboratory work-up was remarkable for white blood cell count of 12. Her lipase is nearly 7694. The rest of her labs are fairly unremarkable. We initially obtained an abdominal ultrasound that showed hepatomegaly with diffuse fatty infiltration of the liver but no other acute abnormality. No gallstones or signs of cholecystitis. Chest x-ray unremarkable as well. CT scan abdomen and pelvis shows findings that indicate non-complicated acute pancreatitis. Repeat exam patient was having continued pain and was given a dose of morphine. We spoke with the hospitalist Dr. Dominguez who evaluated patient in ED. Impressions Abdomen Ultrasound 08/30/19 12:42 IMPRESSION: Hepatomegaly. Diffuse fatty infiltration of the liver. Electronically Signed: Denzel Quijano, at 14:25 EDT , Service support , Chest X-Ray 08/30/19 13:55 IMPRESSION: Normal x-ray examination of the chest. Electronically Signed: Denzel Quijano, at 14:13 EDT , Service support , Abdomen/Pelvis CT 08/30/19 14:26 IMPRESSION: Findings indicative of a noncomplicated acute pancreatitis. Hepatomegaly and diffuse fatty infiltration of the liver. Electronically Signed: Denzel Quijano, at 15:49 EDT , Service support , 08/30/19 12:42 Abdomen Limited [US] Stat 08/30/19 13:55 Chest 1 View (Portable) [RAD] Stat 08/30/19 14:26 CT Abd [Abdomen/Pelvis W IV Cont ONLY] [CT] Stat Laboratory Results 08/30/19 08/30/19 08/30/19 12:45 12:45 12:45 WBC 12.2 H RBC 4.65 Hgb 16.2 H Hct 45.9 MCV 98.7 MCH 34.8 H MCHC 35.3 RDW Std Deviation 41.1 RDW Coeff of Teressa 11.4 L Plt Count 252 MPV 9.6 Immature Gran % (Auto) 0.900 Neut % (Auto) 73.3 H Lymph % (Auto) 18.7 L [place] % (Auto) 5.7 Eos % (Auto) 0.8 Baso % (Auto) 0.6 Absolute Neuts (auto) 9.0 H Absolute Lymphs (auto) 2.28 Nucleated RBC % 0 PT 12.8 INR 1.0 Sodium 136 Potassium 3.3 L Chloride 97 L Carbon Dioxide 26.0 Anion Gap 13 BUN 12 Creatinine 0.82 Estim Creat Clear Calc 81.11 Est GFR (MDRD) Af Amer 96 Est GFR (MDRD) Non-Af 80 BUN/Creatinine Ratio 14.5 Glucose 302 H Calcium 9.0 Total Bilirubin 0.40 AST 50 H ALT 64 H Alkaline Phosphatase 60 Ammonia Troponin I < 0.015 B-Natriuretic Peptide Total Protein 7.7 Albumin 3.8 Globulin 3.9 Albumin/Globulin Ratio 1.0 Lipase 7694 H Urine Color Urine Clarity Urine pH Ur Specific [place] Urine Protein Urine Glucose (UA) Urine Ketones Urine Occult Blood Urine Nitrite Urine Bilirubin Urine Urobilinogen Ur Leukocyte Esterase Urine RBC Urine WBC Ur Squamous Epith Cells Urine Bacteria Urine Mucus 08/30/19 08/30/19 08/30/19 12:45 12:50 13:05 WBC RBC Hgb Hct MCV MCH MCHC RDW Std Deviation RDW Coeff of Teressa Plt Count MPV Immature Gran % (Auto) Neut % (Auto) Lymph % (Auto) [place] % (Auto) Eos % (Auto) Baso % (Auto) Absolute Neuts (auto) Absolute Lymphs (auto) Nucleated RBC % PT INR Sodium Potassium Chloride Carbon Dioxide Anion Gap BUN Creatinine Estim Creat Clear Calc Est GFR (MDRD) Af Amer Est GFR (MDRD) Non-Af BUN/Creatinine Ratio Glucose Calcium Total Bilirubin AST ALT Alkaline Phosphatase Ammonia 23.0 Troponin I B-Natriuretic Peptide 4.8 Total Protein Albumin Globulin Albumin/Globulin Ratio Lipase Urine Color Yellow Urine Clarity Clear Urine pH 5.0 Ur Specific [place] 1.025 Urine Protein 30 H Urine Glucose (UA) 1000 H Urine Ketones 15 H Urine Occult Blood 250 H Urine Nitrite Negative Urine Bilirubin 1 H Urine Urobilinogen 1 H Ur Leukocyte Esterase 25 H Urine RBC 5-10 SEEN Urine WBC 0-5 SEEN Ur Squamous Epith Cells 0-5 SEEN Urine Bacteria RARE Urine Mucus 1+ <Elliot Cabezas - Last Filed: 08/30/19 17:21> - Medical Decision Making Patient reevaluated for pain. She had initially been given 4 mg of IV morphine after the Toradol as it did not provide adequate pain relief. Patient is evaluated by hospitalist who would like to replace potassium and see if we get her pain under control enough to be discharged home. Page was sent to her PCP. Spoke to the on-call physician who is not familiar with the patient. He works at a different office. He was hesitant about outpatient follow-up. On reevaluation the patient still having significant amount of abdominal pain. She is redosed with morphine and Zofran. Decision was made to admit her at this time. Patient agreeable with this plan. She is hemodynamically stable for the general medical floor at time of disposition. <Mya Davies - Last Filed: 08/30/19 18:25> ED Disposition <Elliot Cabezas - Last Filed: 08/30/19 17:21> <Mya Davies - Last Filed: 08/30/19 18:25> - Plan for ED Patient: Disposition: Acute Care Hospital [facility] Diagnosis: Acute pancreatitis Referrals: Valerie Mullins MD [Primary Care Provider] -
[2019-08-30 13:14] LABS: Absolute Lymphocyte Count 2.28 X10^3/uL (0.83-4.51); Basophil# 0.07 X10^3/uL; Basophil% 0.6 % (0-1); Eosinophils% 0.8 % (0-5); Hematocrit 45.9 % (37-47); Hemoglobin 16.2 g/dL (12.0-15.0); Lymphocyte # 2.28 X10^3/ul (4.0); Lymphocyte % 18.7 % (19-41); Mean Corp Hgb Conc 35.3 g/dL (32-36); Mean Corpuscular Hgb 34.8 pg (27.0-32.0); Mean Corpuscular Volume 98.7 fL (81-99); Mean Platelet Vol. 9.6 fl (6.2-12.0); Monocyte% 5.7 % (0-10); NRBC Flagged by Analyzer 0 % (0-5); Neutrophil # 8.95 X10^3/uL (2.7-7.7); Neutrophil % 73.3 % (47-70); Platelet Count 252 K/mm3 (150-450); RBC Distribution Width CV 11.4 % (11.6-14.6); RBC Distribution Width SD 41.1 fl (35.1-43.9); Red Blood Count 4.65 M/mm3 (4.2-5.4); White Blood Count 12.2 K/mm3 (4.4-11.0)
[2019-08-30 13:15] LABS: AST(SGOT) 50 U/L (15-37); Alanine Aminotransfer ALT/SGPT 64 U/L (13-56); Albumin, Serum 3.8 g/dL (3.2-5.0); Alkaline Phosphatase 60 U/L (45-117); Anion Gap 13 (5-15); BUN 12 mg/dL (7-18); BUN/Creat Ratio 14.5 RATIO (10-20); Chloride 97 mmol/L (98-107); Creatinine, Serum 0.82 mg/dL (0.55-1.02); EST Glomerular Filtration Rate 80 mL/min (>60); Est Glom Filt Rate - Afr Amer 96 mL/min (>60); Estimated Creatinine Clearance 81.11 ml/min; Globulin 3.9 g/dL (2.2-4.2); Glucose 302 mg/dL (74-106); Lipase 7694 U/L (73-393); Potassium 3.3 mmol/L (3.5-5.1); Protein, Total 7.7 g/dL (6.4-8.2); Prothrombin Time (Protime)PT. 12.8 SECONDS (11.7-14.9); Sodium Level 136 mmol/L (136-145)
[2019-08-30 13:16] LABS: Color, Urine Yellow (Yellow); Glucose, Dipstick 1000 mg/dl (Normal); Ketone-Dipstick 15 mg/dl (Negative); Leukocyte Esterase-Dipstick 25 /ul (Negative); Nitrite-Dipstick Negative (Negative); Occult Blood-Urine 250 /ul (Negative); Protein-Dipstick 30 mg/dl (Negative); Specific Gravity, Urine 1.025 (1.002-1.030); Urine Clarity Clear (Clear); Urine Urobilinogen 1 mg/dl (Normal)
[2019-08-30 13:21] LABS: Urine Bilirubin Dipstick 1 mg/dL (Negative)
[2019-08-30 13:23] LABS: Bacteria RARE /hpf (None Seen); Mucous, Urine 1+ /hpf (<or=2+); Red Blood Cells-Urine 5-10 SEEN /hpf (0-5); Squamous Epithelial Cells - UA 0-5 SEEN /hpf (5-10); White Blood Cells 0-5 SEEN /hpf (0-5)
[2019-08-30 13:33] LABS: BNP,B-Type NATRIURETIC PEPTIDE 4.8 pg/mL (0-100)
--- NOTE | 2019-08-30 13:55 | RAD_ITS ---
STUDY: X-RAY CHEST REASON FOR EXAM: Female, 44 years old. ABDOMEN PAIN, DISTENTION; -- COUGH TECHNIQUE: Single AP portable view of the chest. COMPARISON: None. FINDINGS: The lungs are clear and expanded. There is no demonstrated pleural abnormality. Normal size heart. Normal mediastinum and niurka. Normal visualized pulmonary arteries. Normal visualized aortic arch and descending thoracic aorta. Normal visualized thoracic spine. Normal visualized ribs, clavicles, and shoulders. There is no demonstrated abnormality of the visualized soft tissue structures of the upper abdomen. RAD/Chest 1 View (Portable) IMPRESSION: Normal x-ray examination of the chest. Electronically Signed: Denzel Quijano, at 14:13 EDT , Service support ,
--- NOTE | 2019-08-30 14:26 | CT_ITS ---
STUDY: CT ABDOMEN AND PELVIS WITHOUT CONTRAST REASON FOR EXAM: Female, 44 years old. ABD PAIN, DISTENTION, ALSO BEING TREATED FOR COUGH RADIATION DOSAGE (If Supplied By Facility): CTDIvol = ( 9.05 ) mGy, DLP = ( 406.11 ) mGycm TECHNIQUE: Transaxial images were obtained from the dome of the diaphragm to the symphysis pubis without oral contrast, and without intravenous contrast. Sagittal and coronal images were reconstructed. Individualized dose optimization techniques were used for this CT. COMPARISON: None. FINDINGS: The visualized lung bases are unremarkable. The visualized portions of the heart are within normal limits. There is decreased attenuation of the liver consistent with steatosis. Hepatomegaly. Normal gallbladder and extrahepatic biliary system. Normal spleen. There is diffuse enlargement of the pancreas with clive-pancreatic edema suggesting acute pancreatitis. Normal bilateral adrenal glands. Normal right kidney. Normal left kidney. Normal visualized stomach. Normal small intestine. Normal colon. The appendix is visualized and appears normal. Normal abdominal aorta. Normal inferior vena cava. Normal retroperitoneum. Normal urinary bladder. There is a 2.3 cm x 2.5 cm left ovarian cyst. Normal abdominal wall. Normal osseous structures. CT/Abdomen/Pelvis W IV Cont ONLY IMPRESSION: Findings indicative of a noncomplicated acute pancreatitis. Hepatomegaly and diffuse fatty infiltration of the liver. Electronically Signed: Denzel Quijano, at 15:49 EDT , Service support ,
[2019-08-30] MEDS: Ketorolac 30 MG/ML Syringe IV (15:12)
[2019-08-30] MEDS: Ondansetron 4 MG/2 ML Vial IV ×2 (15:20→18:37)
[2019-08-30 17:08] VITALS: BP 143/91; PULSE 89; RESP 16; O2SAT 96
[2019-08-30] MEDS: Morphine 4 MG/ML Syringe IV ×2 (17:10→21:42)
[2019-08-30] MEDS: 0.9% Normal Saline 1,000 ML 999 ML IV (17:11)
[2019-08-30] MEDS: Potassium Chloride 10mEq/100mL 10 MEQ/100 ML IV.SOLN. 100 MEQ IV BOLUS ×2 (17:11→18:32)
--- NOTE | 2019-08-30 18:28 | PCM.HP.STD ---
<Shon Valles - Last Filed: 08/30/19 18:28> Problem List (1) Acute pancreatitis Status: Acute (2) Diabetes Status: Chronic Qualifiers: Diabetes mellitus type: type 2 (3) HTN (hypertension) Status: Chronic (4) HLD (hyperlipidemia) Status: Chronic (5) Alcoholism Status: Chronic (6) Nicotine abuse Status: Chronic History of Present Illness Date of Admission: 08/30/19 Chief Complaint: abd pain The patient is a 44 year old F with pmhx of DMt2, HTN, HLD, alcoholism, nicotine abuse who presented to the ER with c/o abdominal pain. This began yesterday afternoon. It is a severe sharp pain in the midepigastric region radiating into the back at times. She is nauseous and vomited the last time she tried to eat a piece of banana breat this AM at about 0730. She also complains of bloating. No fever/chills, chronic diarrhea, no changes. She has had little improvement in the ER. She appears to have pancreatitis. She denies hx of pancreatitis. She states she has been sober 6 months. She does take a statin and losartan, and does not appear to have well controlled DMt2. She is on day 5 of a prednisone taper right now that she states was started for a chronic cough for the past 1.5 months. [] Past Medical History Past Medical History (Chronic Problems): Chronic Problems Diabetes (Chronic) HTN (hypertension) (Chronic) HLD (hyperlipidemia) (Chronic) Alcoholism (Chronic) Nicotine abuse (Chronic) Allergies azithromycin [From Zithromax] Adverse Reaction (Verified 08/30/19 12:32) Diarrhea codeine Adverse Reaction (Verified 08/30/19 12:32) Nausea promethazine [From Phenergan] Adverse Reaction (Verified 08/30/19 15:11) Vomiting Home Medications: Ambulatory Orders Medication Instructions Recorded Duloxetine Hcl [Cymbalta] 20 mg PO BID 04/30/18 Benzonatate [Tessalon Perle] 100 mg PO TID PRN PRN 08/30/19 Doxepin HCl 150 mg PO QHS 08/30/19 Gabapentin [Neurontin] 200 mg PO TID 08/30/19 Losartan Potassium [Cozaar] 50 mg PO DAILY 08/30/19 Prednisone See Taper PO DAILY 08/30/19 Rosuvastatin Calcium 5 mg PO QHS 08/30/19 metFORMIN (XR) [Glucophage Xr] 500 mg PO DAILY 08/30/19 Surgical History: no surgical history Psychiatric History: No pertinent psych hx TECHNICAL SOLUTION ARCHITECT History: No pertinent TECHNICAL SOLUTION ARCHITECT history Lives: With Family Smoking Status: Current every day smoker Tobacco Use: Cigarettes Alcohol: Sober Drugs: None - *Family History Maternal History Items: Cancer - breast cancer, uterine cancer Paternal History Items: Cancer Review of Systems Constitutional: Denies: Chills, Fever, Weight Change HEENT: Denies: Head Aches, Sinus Congestion, Sinus Drainage Cardiovascular: Denies: Chest Pain, Heaviness, Light Headedness, Palpitations Respiratory: Denies: Cough, Shortness of Breath, Shortness of breath at rest, Sputum production Gastrointestinal: Reports: Abdominal Pain, Diarrhea, Nausea, Vomiting Genitourinary: Denies: Dysuria, Hesitancy, Urgency Musculoskeletal: Denies: Joint Pain, Joint Tenderness Skin: Denies: Rash, Wounds Neurological: Denies: Numbness, Tingling, Focal weakness Psychiatric: Denies: Anxiety, Depression, Homicidal Ideations, Suicidal Ideations Hematologic/ Lymphatic: Denies: Easy Bruising, Easy Bleeding VTE Information - Inpt Only VTE Present on Admission: No VTE Mechan Device Prophylaxis: None VTE Pharm Prophylaxis ordered?: No Reason prophylaxis not ordered:: Procedure Not Indicated Patient Problems: Active and Suspected Problems Acute pancreatitis (Acute) - Physical Exam Vitals/I&O's: Vital Signs Temp Pulse Resp BP Pulse Ox 97.6 F L 89 16 143/91 H 96 08/30/19 12:30 08/30/19 17:08 08/30/19 17:08 08/30/19 17:08 08/30/19 17:08 Oxygen Delivery Method Room Air Weight: 138 lb 14.259 oz Body Mass Index (BMI) 22.4 General: Alert, Oriented x3, Cooperative HEENT: Atraumatic, PERRLA, EOMI, Normocephalic Neck: Supple, No JVD, Negative Carotid Bruits Lungs: Clear to auscultation, Normal air movement Cardiovascular: Regular rate, No murmurs Abdomen: Soft, Hypoactive Bowel Sounds, Distended, Tender Extremities: No edema, Capillary Refill Less than 3 Seconds Skin: No rashes, No breakdown Musculoskeletal: No Tenderness to Palpation of Joints or Extremities Neurological: Cranial nerves II-XII grossly intact Psych/Mental Status: Normal Affect, Appropriate, Alert and oriented to time, place, person, mood and affect Laboratory Results 08/30/19 12:45: WBC 12.2 H, RBC 4.65, Hgb 16.2 H, Hct 45.9, MCV 98.7, MCH 34.8 H, MCHC 35.3, RDW Std Deviation 41.1, RDW Coeff of Teressa 11.4 L, Plt Count 252, MPV 9.6, Immature Gran % (Auto) 0.900, Neut % (Auto) 73.3 H, Lymph % (Auto) 18.7 L, [place] % (Auto) 5.7, Eos % (Auto) 0.8, Baso % (Auto) 0.6, Absolute Neuts (auto) 9.0 H, Absolute Lymphs (auto) 2.28, Nucleated RBC % 0 08/30/19 12:45: PT 12.8, INR 1.0 08/30/19 12:45: Sodium 136, Potassium 3.3 L, Chloride 97 L, Carbon Dioxide 26.0, Anion Gap 13, BUN 12, Creatinine 0.82, Estim Creat Clear Calc 81.11, Est GFR (MDRD) Af Amer 96, Est GFR (MDRD) Non-Af 80, BUN/Creatinine Ratio 14.5, Glucose 302 H, Calcium 9.0, Total Bilirubin 0.40, AST 50 H, ALT 64 H, Alkaline Phosphatase 60, Troponin I < 0.015, Total Protein 7.7, Albumin 3.8, Globulin 3.9, Albumin/Globulin Ratio 1.0, Lipase 7694 H 08/30/19 12:45: B-Natriuretic Peptide 4.8 08/30/19 12:50: Ammonia 23.0 08/30/19 13:05: Urine Color Yellow, Urine Clarity Clear, Urine pH 5.0, Ur Specific [place] 1.025, Urine Protein 30 H, Urine Glucose (UA) 1000 H, Urine Ketones 15 H, Urine Occult Blood 250 H, Urine Nitrite Negative, Urine Bilirubin 1 H, Urine Urobilinogen 1 H, Ur Leukocyte Esterase 25 H, Urine RBC 5-10 SEEN, Urine WBC 0-5 SEEN, Ur Squamous Epith Cells 0-5 SEEN, Urine Bacteria RARE, Urine Mucus 1+ Current Medications Potassium Chloride () 10 meq in 100 mls @ 100 mls/hr IV BOLUS Q1H ABE Stop: 08/30/19 18:44 Last Admin: 08/30/19 17:11 Dose: 100 mls/hr Documented by: Assessment/Plan All Active Problems Acute pancreatitis (Acute) 1. Acute pancreatitis unclear etiology - no prior episode. Lipase 7693. CT c/w pancreatitis. Abd US shows hepatomegaly and fatty liver dz. WBC 12.2. K 3.3. Hold statin and losartan. Check lipid panel, a1c, etoh and drug screen. start fluids, pain meds, antiemetics. allergic to Phenergan. 2. DMt2 - glucose 302 and significant glycosuria. check a1c. provide SSI. hold orals. 3. HLD - hold statin 4. HTN - hold losartan. 5. ? Asthma, with chronic cough - on day 5 of prednisone taper. uses home albuterol inhaler. has had cough for 1.5 months. DVT ppx: early ambulation This patient was seen by Shon Valles PA-C under the supervision of Dr. Dominguez. <Lea Dominguez - Last Filed: 08/30/19 18:58> History of Present Illness The patient is a 44 year old F [] Past Medical History Allergies azithromycin [From Zithromax] Adverse Reaction (Verified 08/30/19 12:32) Diarrhea codeine Adverse Reaction (Verified 08/30/19 12:32) Nausea promethazine [From Phenergan] Adverse Reaction (Verified 08/30/19 15:11) Vomiting - Physical Exam Vitals/I&O's: Vital Signs Temp Pulse Resp BP Pulse Ox 97.6 F L 88 17 143/83 H 96 08/30/19 18:40 08/30/19 18:40 08/30/19 18:40 08/30/19 18:40 08/30/19 18:40 Oxygen Delivery Method Room Air Weight: 63 kg Body Mass Index (BMI) 22.4 Intake and Output for Last 24 Hours 08/28/19 08/29/19 08/30/19 23:59 23:59 23:59 Intake Total 100 / 100 Balance 100 / 100 Laboratory Results 08/30/19 12:45: WBC 12.2 H, RBC 4.65, Hgb 16.2 H, Hct 45.9, MCV 98.7, MCH 34.8 H, MCHC 35.3, RDW Std Deviation 41.1, RDW Coeff of Teressa 11.4 L, Plt Count 252, MPV 9.6, Immature Gran % (Auto) 0.900, Neut % (Auto) 73.3 H, Lymph % (Auto) 18.7 L, [place] % (Auto) 5.7, Eos % (Auto) 0.8, Baso % (Auto) 0.6, Absolute Neuts (auto) 9.0 H, Absolute Lymphs (auto) 2.28, Nucleated RBC % 0 08/30/19 12:45: PT 12.8, INR 1.0 08/30/19 12:45: Sodium 136, Potassium 3.3 L, Chloride 97 L, Carbon Dioxide 26.0, Anion Gap 13, BUN 12, Creatinine 0.82, Estim Creat Clear Calc 81.11, Est GFR (MDRD) Af Amer 96, Est GFR (MDRD) Non-Af 80, BUN/Creatinine Ratio 14.5, Glucose 302 H, Calcium 9.0, Total Bilirubin 0.40, AST 50 H, ALT 64 H, Alkaline Phosphatase 60, Troponin I < 0.015, Total Protein 7.7, Albumin 3.8, Globulin 3.9, Albumin/Globulin Ratio 1.0, Lipase 7694 H 08/30/19 12:45: B-Natriuretic Peptide 4.8 08/30/19 12:50: Ammonia 23.0 08/30/19 13:05: Urine Color Yellow, Urine Clarity Clear, Urine pH 5.0, Ur Specific [place] 1.025, Urine Protein 30 H, Urine Glucose (UA) 1000 H, Urine Ketones 15 H, Urine Occult Blood 250 H, Urine Nitrite Negative, Urine Bilirubin 1 H, Urine Urobilinogen 1 H, Ur Leukocyte Esterase 25 H, Urine RBC 5-10 SEEN, Urine WBC 0-5 SEEN, Ur Squamous Epith Cells 0-5 SEEN, Urine Bacteria RARE, Urine Mucus 1+ Assessment/Plan This patient was seen in conjunction with HERNÁN Kaufman. I have independently interviewed and examined the patient and reviewed pertinent historical, laboratory, and other data. Please refer to HERNÁN Kaufman note for his patient's presentation, findings, and recommendations. I have reviewed and his note and concur with his documentation 44-year-old female with past medical history of hypertension, type II DM, hyperlipidemia, history of alcohol use disorder but quit 6 months ago, nicotine dependence who comes in with progressive epigastric discomfort that radiates into her back associated with nausea and vomiting. She denied any fever or chills or diarrhea. She was kept in the ED and hydrated, she has minimal improvement in her symptoms. Recently was on a prednisone taper for chronic cough. Denied any active upper respiratory symptoms. No fevers. No sick contacts. Physical Exam: Gen: appears slightly in pain, not pale, not jaundiced CVS:HS I +II, regular, no murmurs RESP: CTA GI: Distended, BS present and normal, soft, tenderness over epigastric region, no palpable organs EXT:No edema Lipase was 7694, potassium 3.3 ASSESSMENT: 1. Acute pancreatitis, unclear etiology, ultrasound of the gallbladder was negative for cholelithiasis 2. Hypertension, controlled 3. Type II DM, uncontrolled 4. Hyperlipidemia 5. Hypokalemia Plan: Keep n.p.o., IV fluids Potassium replaced in the ED Hold metformin, losartan, rosuvastatin Hydralazine as needed Accu-Cheks with insulin sliding scale Recheck blood work in a.m. Inpatient E&M: [id number] Init Hosp L2
[2019-08-30] MEDS: morphine 8 MG/ML Syringe 6 MG IV (18:37)
[2019-08-30 18:40] VITALS: BP 143/83; PULSE 88; RESP 17; TEMP 36.4; O2SAT 96
[2019-08-30 18:57] VITALS: BMI 22.6
[2019-08-30 19:02] VITALS: BP 154/96; PULSE 78; RESP 16; TEMP 36.9; O2SAT 96
[2019-08-30 19:05] VITALS: BMI 22.6
[2019-08-30 19:31] LABS: Bedside Glucose 244 mg/dL (70-110)
[2019-08-30] MEDS: 0.9% Normal Saline 1,000 ML 150 ML IV (19:42)
[2019-08-30 20:00] VITALS: RESP 18
[2019-08-30 21:13] VITALS: BP 160/81; PULSE 85; RESP 20; TEMP 36.8; O2SAT 93
[2019-08-30] MEDS: 0.9% Saline Lock 10 ML Syringe IV (21:43)
[2019-08-30 21:44] LABS: Amphetamine Urine VISTA NEGATIVE (<1000 ng/mL); Barbiturate Urine VISTA NEGATIVE (< 200 ng/mL); Benzodiazepine Urine VISTA NEGATIVE (< 200 ng/mL); Cocaine Urine VISTA NEGATIVE (< 300 ng/mL); Ecstacy Urine VISTA NEGATIVE (< 500 ng/mL); Methadone Urine VISTA NEGATIVE (< 300 ng/mL); PCP Urine VISTA NEGATIVE (< 25 ng/mL); THC Urine VISTA NEGATIVE (< 50 ng/mL); Vista UDS pH Range 6
[2019-08-30] MEDS: proCHLORPERazine 10 MG/2 ML Vial 5 MG IV (23:44)
[2019-08-30] MEDS: Insulin Lispro 100 UNIT/ML INSULN.PEN SC (23:55)
[2019-08-31 00:01] VITALS: BP 153/82; PULSE 89; RESP 18; TEMP 36.9; O2SAT 93
[2019-08-31 00:41] LABS: Bedside Glucose 267 mg/dL (70-110)
[2019-08-31] MEDS: Morphine 4 MG/ML Syringe IV ×3 (01:09→07:26)
[2019-08-31] MEDS: 0.9% Normal Saline 1,000 ML 150 ML IV (02:07)
[2019-08-31 04:13] VITALS: BP 152/96; PULSE 103; RESP 18; TEMP 37.3; O2SAT 92
[2019-08-31] MEDS: Ondansetron 4 MG/2 ML Vial IV ×3 (04:15→20:00)
[2019-08-31 05:45] LABS: Absolute Lymphocyte Count 0.55 X10^3/uL (0.83-4.51); Absolute Neutrophil Count 12.2 X10^3/uL (2.0-7.7); Basophil# 0.04 X10^3/uL; Basophil% 0.3 % (0-1); Eosinophil# 0.07 X10^3/uL; Eosinophils% 0.5 % (0-5); Hematocrit 41.6 % (37-47); Hemoglobin 14.5 g/dL (12.0-15.0); Lymphocyte # 0.55 X10^3/ul (4.0); Lymphocyte % 4.1 % (19-41); Mean Corp Hgb Conc 34.9 g/dL (32-36); Mean Corpuscular Volume 100.5 fL (81-99); Mean Platelet Vol. 9.4 fl (6.2-12.0); NRBC Flagged by Analyzer 0 % (0-5); Neutrophil # 12.24 X10^3/uL (2.7-7.7); Neutrophil % 91.4 % (47-70); POSITIVE DIFFERENTIAL YES; Platelet Count 205 K/mm3 (150-450); RBC Distribution Width CV 11.6 % (11.6-14.6); RBC Distribution Width SD 42.3 fl (35.1-43.9); Red Blood Count 4.14 M/mm3 (4.2-5.4); White Blood Count 13.4 K/mm3 (4.4-11.0)
[2019-08-31 05:46] LABS: Differential Indicated SCAN CRITERIA MET
[2019-08-31] MEDS: Insulin Lispro 100 UNIT/ML INSULN.PEN SC ×3 (05:53→18:06)
[2019-08-31 05:59] LABS: AST(SGOT) 33 U/L (15-37); Alanine Aminotransfer ALT/SGPT 44 U/L (13-56); Albumin, Serum 3.1 g/dL (3.2-5.0); Alkaline Phosphatase 49 U/L (45-117); Anion Gap 8 (5-15); BUN 8 mg/dL (7-18); BUN/Creat Ratio 11.4 RATIO (10-20); Calcium,Total 7.6 mg/dL (8.5-10.1); Chloride 103 mmol/L (98-107); EST Glomerular Filtration Rate 96 mL/min (>60); Est Glom Filt Rate - Afr Amer 116 mL/min (>60); Estimated Creatinine Clearance 95.01 ml/min; Glucose 241 mg/dL (74-106); Lipase 12444 U/L (73-393); Potassium 4.1 mmol/L (3.5-5.1); Protein, Total 6.1 g/dL (6.4-8.2); Sodium Level 136 mmol/L (136-145)
[2019-08-31 06:06] LABS: Bedside Glucose 245 mg/dL (70-110)
[2019-08-31] MEDS: proCHLORPERazine 10 MG/2 ML Vial 5 MG IV ×3 (07:26→22:55)
[2019-08-31] MEDS: 0.9% Normal Saline 1,000 ML 200 ML IV ×3 (09:12→20:16)
--- NOTE | 2019-08-31 09:15 | CASEMGMT ---
According to the MMO website, the following are in-network tertiary facilities: [facility], [place], [facility], [facility], [facility], [facility], [facility], and . Jose DURAN CM
[2019-08-31 09:33] LABS: Cholesterol 247 mg/dL (200); High Density Lipoprotein 25 mg/dL; Triglycerides 640 mg/dL
[2019-08-31 09:34] LABS: Hemoglobin A1c 7.7 % (4.2-6.3)
--- NOTE | 2019-08-31 10:05 | PCM.PN.HOSP ---
<Shon Valles - Last Filed: 08/31/19 10:05> Patient Problems: Active and Suspected Problems Acute pancreatitis (Acute) Reason for Visit: abd pain Subjective: no improvement in abd pain. increased nausea/vomiting this AM. no bm. no fever / chills. Vitals/I&O's: Vital Signs Temp Pulse Resp BP Pulse Ox 99.1 F 103 H 18 152/96 H 92 08/31/19 04:13 08/31/19 04:13 08/31/19 04:13 08/31/19 04:13 08/31/19 04:13 Oxygen Delivery Method Room Air Weight: 140 lb 1.6 oz Body Mass Index (BMI) 22.6 Intake and Output for Last 24 Hours 08/29/19 08/30/19 08/31/19 23:59 23:59 23:59 Intake Total 1200 / 1200 2.5 / 1961.5 Balance 1200 / 1200 2.5 / 1961.5 General: Alert, Oriented x3, Cooperative HEENT: Atraumatic, PERRLA, EOMI, Normocephalic Neck: Supple, No JVD, Negative Carotid Bruits Lungs: Clear to auscultation, Normal air movement Cardiovascular: Regular rate, No murmurs Abdomen: Bowel Sounds Present, Soft, Tender - diffusely tender to light palp worse in midepigastric region Extremities: No edema, Capillary Refill Less than 3 Seconds Skin: No rashes, No breakdown Musculoskeletal: No Tenderness to Palpation of Joints or Extremities Neurological: Cranial nerves II-XII grossly intact Psych/Mental Status: Normal Affect, Appropriate, Alert and oriented to time, place, person, mood and affect Laboratory Results 08/30/19 12:45: WBC 12.2 H, RBC 4.65, Hgb 16.2 H, Hct 45.9, MCV 98.7, MCH 34.8 H, MCHC 35.3, RDW Std Deviation 41.1, RDW Coeff of Teressa 11.4 L, Plt Count 252, MPV 9.6, Immature Gran % (Auto) 0.900, Neut % (Auto) 73.3 H, Lymph % (Auto) 18.7 L, [place] % (Auto) 5.7, Eos % (Auto) 0.8, Baso % (Auto) 0.6, Absolute Neuts (auto) 9.0 H, Absolute Lymphs (auto) 2.28, Nucleated RBC % 0 08/30/19 12:45: PT 12.8, INR 1.0 08/30/19 12:45: Sodium 136, Potassium 3.3 L, Chloride 97 L, Carbon Dioxide 26.0, Anion Gap 13, BUN 12, Creatinine 0.82, Estim Creat Clear Calc 81.11, Est GFR (MDRD) Af Amer 96, Est GFR (MDRD) Non-Af 80, BUN/Creatinine Ratio 14.5, Glucose 302 H, Calcium 9.0, Total Bilirubin 0.40, AST 50 H, ALT 64 H, Alkaline Phosphatase 60, Troponin I < 0.015, Total Protein 7.7, Albumin 3.8, Globulin 3.9, Albumin/Globulin Ratio 1.0, Lipase 7694 H 08/30/19 12:45: B-Natriuretic Peptide 4.8 08/30/19 12:50: Ammonia 23.0 08/30/19 13:05: Urine Color Yellow, Urine Clarity Clear, Urine pH 5.0, Ur Specific [place] 1.025, Urine Protein 30 H, Urine Glucose (UA) 1000 H, Urine Ketones 15 H, Urine Occult Blood 250 H, Urine Nitrite Negative, Urine Bilirubin 1 H, Urine Urobilinogen 1 H, Ur Leukocyte Esterase 25 H, Urine RBC 5-10 SEEN, Urine WBC 0-5 SEEN, Ur Squamous Epith Cells 0-5 SEEN, Urine Bacteria RARE, Urine Mucus 1+ 08/30/19 13:05: Urine Opiates Screen NEGATIVE, Urine Methadone Screen NEGATIVE, Ur Barbiturates Screen NEGATIVE, Ur Phencyclidine Scrn NEGATIVE, Ur Amphetamines Screen NEGATIVE, U Methamphetamin-MDMA NEGATIVE, U Benzodiazepines Scrn NEGATIVE, Urine Cocaine Screen NEGATIVE, U Cannabinoids Screen NEGATIVE, Ur Drug Screen Comment 08/30/19 19:20: POC Glucose 244 H 08/30/19 19:21: Ethyl Alcohol 7.0 08/30/19 23:50: POC Glucose 267 H 08/31/19 05:20: WBC 13.4 H, RBC 4.14 L, Hgb 14.5, Hct 41.6, MCV 100.5 H, MCH 35.0 H, MCHC 34.9, RDW Std Deviation 42.3, RDW Coeff of Teressa 11.6, Plt Count 205, MPV 9.4, Immature Gran % (Auto) 0.700, Neut % (Auto) 91.4 H, Lymph % (Auto) 4.1 L, [place] % (Auto) 3.0, Eos % (Auto) 0.5, Baso % (Auto) 0.3, Absolute Neuts (auto) 12.2 H, Absolute Lymphs (auto) 0.55 L, Nucleated RBC % 0, Differential Comment 08/31/19 05:20: Sodium 136, Potassium 4.1, Chloride 103, Carbon Dioxide 25.0, Anion Gap 8, BUN 8, Creatinine 0.70, Estim Creat Clear Calc 95.01, Est GFR (MDRD) Af Amer 116, Est GFR (MDRD) Non-Af 96, BUN/Creatinine Ratio 11.4, Glucose 241 H, Calcium 7.6 L, Total Bilirubin 0.80, AST 33, ALT 44, Alkaline Phosphatase 49, Total Protein 6.1 L, Albumin 3.1 L, Globulin 3.0, Albumin/Globulin Ratio 1.0, Lipase 58382 H 08/31/19 05:20: Triglycerides 640 H, Cholesterol 247 H, LDL Cholesterol TNP, VLDL Cholesterol TNP, HDL Cholesterol 25 L 08/31/19 05:20: Hemoglobin A1c 7.7 H 08/31/19 05:52: POC Glucose 245 H Current Medications Dextrose (D50w Syringe) 0 gm IV X1 PRN; Protocol PRN Reason: Hypoglycemia Glucagon () 1 mg IM .X1 PRN PRN Reason: Hypoglycemia Hydromorphone HCl (Dilaudid Inj) 1 mg IV Q3H PRN PRN PRN Reason: Pain Score 6-10/10 Sodium Chloride () 1,000 mls @ 200 mls/hr IV .Q5H ABE Last Admin: 08/31/19 09:12 Dose: 200 mls/hr Documented by: Insulin Human Lispro (Humalog Kwikpen (Bk)) 0 unit SC Q6 ABE; Protocol Last Admin: 08/31/19 05:53 Dose: 2 u Documented by: Ketorolac Tromethamine (Toradol (Bkc)) 15 mg IV Q6H PRN PRN PRN Reason: pain 1-10/10 Stop: 09/05/19 09:33 Nutritional Formula (Lactose Free) (Glucerna Shake) 120 ml PO 4X/DAY [facility] Ondansetron HCl (Zofran) 4 mg IV Q6H PRN PRN PRN Reason: NAUSEA/VOMITING Last Admin: 08/31/19 04:15 Dose: 4 mg Documented by: Prednisone () 40 mg PO DAILY@0800 [facility]; Taper Stop: 09/10/19 07:59 Prochlorperazine Edisylate (Compazine Iv) 5 mg IV Q6H PRN PRN PRN Reason: NAUSEA/VOMITING Last Admin: 08/31/19 07:26 Dose: 5 mg Documented by: Senna/Docusate Sodium (Senokot-S, Marilia-Colace) 2 tablet PO BID PRN PRN PRN Reason: Constipation Sodium Chloride () 10 - 40 ml IV UD PRN PRN Reason: SALINE FLUSH Last Admin: 08/30/19 21:43 Dose: 10 ml Documented by: Medical Necessity - Tobacco Use Smoking Status: Current every day smoker Tobacco Use: Cigarettes Assessment/Plan All Active Problems Acute pancreatitis (Acute) 1. Acute pancreatitis unclear etiology - no prior episode. [place] [address], and wbc increased. CT c/w pancreatitis. Abd US shows hepatomegaly and fatty liver dz. WBC 12.2. K 3.3. Hold statin and losartan. moderately elevated trigs on lipid panel. 2. DMt2 - continue SSI. a1c pending. 3. HLD - hold statin 4. HTN - hold losartan. 5. ? Asthma, with chronic cough - on day 5 of prednisone taper. uses home albuterol inhaler. has had cough for 1.5 months. DVT ppx: early ambulation This patient was seen by Shon Valles PA-C under the supervision of Dr. Burk <Raymond Burk - Last Filed: 08/31/19 11:03> Subjective: Still with abdominal pain. Morphine of little help. Vitals/I&O's: Vital Signs Temp Pulse Resp BP Pulse Ox 37.2 C 94 18 164/95 H 94 08/31/19 10:06 08/31/19 10:06 08/31/19 10:06 08/31/19 10:06 08/31/19 10:06 Oxygen Delivery Method Room Air Weight: 63.548 kg Body Mass Index (BMI) 22.6 Intake and Output for Last 24 Hours 08/29/19 08/30/19 08/31/19 23:59 23:59 23:59 Intake Total 1199 / 1200 1961.1961. Balance 1199 / 1199 General: Alert, Cooperative HEENT: Atraumatic, Normocephalic Neck: No Nodes, Trachea Midline Lungs: Clear to auscultation, Normal air movement, No rhonchi, No wheeze Cardiovascular: Regular rate, Regular Rhythm, Normal S1, Normal S2, No murmurs Abdomen: Bowel Sounds Present, Soft, Tender Extremities: No edema, No Calf Tenderness Skin: No rashes, No breakdown Psych/Mental Status: Normal Affect, Appropriate Laboratory Results 08/30/19 12:45: WBC 12.2 H, RBC 4.65, Hgb 16.2 H, Hct 45.9, MCV 98.7, MCH 34.8 H, MCHC 35.3, RDW Std Deviation 41.1, RDW Coeff of Teressa 11.4 L, Plt Count 252, MPV 9.6, Immature Gran % (Auto) 0.900, Neut % (Auto) 73.3 H, Lymph % (Auto) 18.7 L, [place] % (Auto) 5.7, Eos % (Auto) 0.8, Baso % (Auto) 0.6, Absolute Neuts (auto) 9.0 H, Absolute Lymphs (auto) 2.28, Nucleated RBC % 0 08/30/19 12:45: PT 12.8, INR 1.0 08/30/19 12:45: Sodium 136, Potassium 3.3 L, Chloride 97 L, Carbon Dioxide 26.0, Anion Gap 13, BUN 12, Creatinine 0.82, Estim Creat Clear Calc 81.11, Est GFR (MDRD) Af Amer 96, Est GFR (MDRD) Non-Af 80, BUN/Creatinine Ratio 14.5, Glucose 302 H, Calcium 9.0, Total Bilirubin 0.40, AST 50 H, ALT 64 H, Alkaline Phosphatase 60, Troponin I < 0.015, Total Protein 7.7, Albumin 3.8, Globulin 3.9, Albumin/Globulin Ratio 1.0, Lipase 7694 H 08/30/19 12:45: B-Natriuretic Peptide 4.8 08/30/19 12:50: Ammonia 23.0 08/30/19 13:05: Urine Color Yellow, Urine Clarity Clear, Urine pH 5.0, Ur Specific [place] 1.025, Urine Protein 30 H, Urine Glucose (UA) 1000 H, Urine Ketones 15 H, Urine Occult Blood 250 H, Urine Nitrite Negative, Urine Bilirubin 1 H, Urine Urobilinogen 1 H, Ur Leukocyte Esterase 25 H, Urine RBC 5-10 SEEN, Urine WBC 0-5 SEEN, Ur Squamous Epith Cells 0-5 SEEN, Urine Bacteria RARE, Urine Mucus 1+ 08/30/19 13:05: Urine Opiates Screen NEGATIVE, Urine Methadone Screen NEGATIVE, Ur Barbiturates Screen NEGATIVE, Ur Phencyclidine Scrn NEGATIVE, Ur Amphetamines Screen NEGATIVE, U Methamphetamin-MDMA NEGATIVE, U Benzodiazepines Scrn NEGATIVE, Urine Cocaine Screen NEGATIVE, U Cannabinoids Screen NEGATIVE, Ur Drug Screen Comment 08/30/19 19:20: POC Glucose 244 H 08/30/19 19:21: Ethyl Alcohol 7.0 08/30/19 23:50: POC Glucose 267 H 08/31/19 05:20: WBC 13.4 H, RBC 4.14 L, Hgb 14.5, Hct 41.6, MCV 100.5 H, MCH 35.0 H, MCHC 34.9, RDW Std Deviation 42.3, RDW Coeff of Teressa 11.6, Plt Count 205, MPV 9.4, Immature Gran % (Auto) 0.700, Neut % (Auto) 91.4 H, Lymph % (Auto) 4.1 L, [place] % (Auto) 3.0, Eos % (Auto) 0.5, Baso % (Auto) 0.3, Absolute Neuts (auto) 12.2 H, Absolute Lymphs (auto) 0.55 L, Nucleated RBC % 0, Differential Comment 08/31/19 05:20: Sodium 136, Potassium 4.1, Chloride 103, Carbon Dioxide 25.0, Anion Gap 8, BUN 8, Creatinine 0.70, Estim Creat Clear Calc 95.01, Est GFR (MDRD) Af Amer 116, Est GFR (MDRD) Non-Af 96, BUN/Creatinine Ratio 11.4, Glucose 241 H, Calcium 7.6 L, Total Bilirubin 0.80, AST 33, ALT 44, Alkaline Phosphatase 49, Total Protein 6.1 L, Albumin 3.1 L, Globulin 3.0, Albumin/Globulin Ratio 1.0, Lipase 42638 H 08/31/19 05:20: Triglycerides 640 H, Cholesterol 247 H, LDL Cholesterol TNP, VLDL Cholesterol TNP, HDL Cholesterol 25 L 08/31/19 05:20: Hemoglobin A1c 7.7 H 08/31/19 05:52: POC Glucose 245 H Current Medications Dextrose (D50w Syringe) 0 gm IV X1 PRN; Protocol PRN Reason: Hypoglycemia Glucagon () 1 mg IM .X1 PRN PRN Reason: Hypoglycemia Hydromorphone HCl (Dilaudid Inj) 1 mg IV Q3H PRN PRN PRN Reason: Pain Score 6-03/08 Last Admin: 08/31/19 10:10 Dose: 1 mg Documented by: Sodium Chloride () 1,000 mls @ 200 mls/hr IV .Q5H ABE Last Admin: 08/31/19 09:12 Dose: 200 mls/hr Documented by: Insulin Human Lispro (Humalog Kwikpen (Bkc)) 0 unit SC Q6 ABE; Protocol Last Admin: 08/31/19 05:53 Dose: 2 u Documented by: Ketorolac Tromethamine (Toradol (Bkc)) 15 mg IV Q6H PRN PRN PRN Reason: pain -03/08 Stop: 09/05/19 09:33 Nutritional Formula (Lactose Free) (Glucerna Shake) 120 ml PO 4X/DAY [facility] Last Admin: 08/31/19 10:08 Dose: Not Given Documented by: Ondansetron HCl (Zofran) 4 mg IV Q6H PRN PRN PRN Reason: NAUSEA/VOMITING Last Admin: 08/31/19 04:15 Dose: 4 mg Documented by: Prednisone () 40 mg PO DAILY@0800 [facility]; Taper Stop: 09/10/19 07:59 Prochlorperazine Edisylate (Compazine Iv) 5 mg IV Q6H PRN PRN PRN Reason: NAUSEA/VOMITING Last Admin: 08/31/19 07:26 Dose: 5 mg Documented by: Senna/Docusate Sodium (Senokot-S, Marilia-Colace) 2 tablet PO BID PRN PRN PRN Reason: Constipation Sodium Chloride () 10 - 40 ml IV UD PRN PRN Reason: SALINE FLUSH Last Admin: 08/30/19 21:43 Dose: 10 ml Documented by: STROKE Vital Signs/Narrative: Vital Signs Temp Pulse Resp BP Pulse Ox 08/31/19 10:06 37.2 C 94 18 164/95 H 94 Assessment/Plan Patient seen and examined independently. Data reviewed. I agree with the above note by the physician computer assistant. 1. Acute pancreatitis: Ongoing. Lipase is worse. Continue with IV fluids but will increase rates from 150 to 200 cc/h. Will optimize pain medication with changing the morphine over to hydromorphone and add ketorolac as needed. Patient states that she is sober and her alcohol level is negative when she presented so not felt to be alcoholic. Ultrasound and CAT scan were negative for any gallstones so not felt to be gallstone related. No other clear etiology readily available at this time. Patient informed that if she gets worse, though unlikely, then she may need referral to a tertiary facility to be seen by gastroenterology. Inpatient E&M: 94324 Subs Hosp L2
[2019-08-31 10:06] VITALS: BP 164/95; PULSE 94; RESP 18; TEMP 37.2; O2SAT 94
[2019-08-31] MEDS: HYDROmorphone 1 MG/ML Syringe IV ×5 (10:10→22:55)
--- NOTE | 2019-08-31 11:08 | CASEMGMT ---
ROGER LEIJA assessment: Face to Face with patient for initial transition planning/care coordination assessment. ROGER LEIJA introduced self and role at [facility], pt voices understanding and consents to assessment at this time. Pt is lying in bed in no distress at this time. Pt is A/Ox4 at this time and answers all questions appropriately at this time. Care providers, pharmacy, and demographics verified at this time. PCP: Susanna Specialists: Carlos, neuro; Endo in [place]; [facility] Preferred Pharmacy: [facility] [place] Insurance: MMO Prescription Benefit: MMO Living Will/HPOA: Pt states does not have LW/HPOA but is interested in AD info at this time. Raymond SW aware, voices understanding. LNOK: Theresa Soares, mother Living Arrangements: Pt states lives in 1 story home with her 13 and 14yo children and states no concerns at home at this time. Pt states is independent with ADL's. Transportation: Pt states drives self and states no transportation concerns at this time. DME/HHC: Pt states no current DME or need for any at this time. Pt states no hx of HHC or SNF at this time. Pt states no concerns with going home at time of discharge. 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 Pt states does smoke about 7-10cigarettes daily and does not drink ETOH. Pt states no further concerns/needs at this time. CM to follow for any further discharge planning/needs. Advised pt to ask for CM if any further questions/concerns/needs arise, voices understanding. Pt Goal: Home Plan[place] ROGER LEIJA
[2019-08-31 11:36] LABS: Bedside Glucose 193 mg/dL (70-110)
[2019-08-31] MEDS: 0.9% Saline Lock 10 ML Syringe IV ×2 (13:13→15:23)
--- NOTE | 2019-08-31 14:41 | CASEMGMT ---
Social Work Referral received from RNCM that pt would like further information on Advance directives. SW met with pt who states that she just had medicine and does not want to complete information at this time. SW provided rack card on advance directives with number to call as outpatient if she would like assistance in completing documents. DIANA Akins
[2019-08-31 16:15] VITALS: BP 137/104; PULSE 98; RESP 18; TEMP 36.6; O2SAT 94
[2019-08-31 18:11] LABS: Bedside Glucose 219 mg/dL (70-110)
[2019-08-31 22:15] VITALS: BP 156/100; PULSE 115; RESP 16; TEMP 36.7; O2SAT 95
[2019-09-01] MEDS: HYDROmorphone 1 MG/ML Syringe IV ×3 (02:04→08:20)
[2019-09-01] MEDS: Ondansetron 4 MG/2 ML Vial IV ×3 (02:04→14:30)
[2019-09-01] MEDS: Insulin Lispro 100 UNIT/ML INSULN.PEN SC ×4 (02:16→21:47)
[2019-09-01] MEDS: 0.9% Normal Saline 1,000 ML 200 ML IV ×5 (02:18→22:58)
[2019-09-01 02:36] LABS: Bedside Glucose 193 mg/dL (70-110)
[2019-09-01 03:43] VITALS: BP 149/94; PULSE 87; RESP 16; TEMP 36.6; O2SAT 97
[2019-09-01] MEDS: proCHLORPERazine 10 MG/2 ML Vial 5 MG IV ×3 (05:38→18:34)
[2019-09-01 05:56] LABS: Bedside Glucose 181 mg/dL (70-110)
[2019-09-01 07:10] LABS: Absolute Lymphocyte Count 0.88 X10^3/uL (0.83-4.51); Absolute Neutrophil Count 12.3 X10^3/uL (2.0-7.7); Basophil# 0.06 X10^3/uL; Basophil% 0.4 % (0-1); Eosinophil# 0.24 X10^3/uL; Eosinophils% 1.7 % (0-5); Hematocrit 37.1 % (37-47); Hemoglobin 12.9 g/dL (12.0-15.0); Lymphocyte # 0.88 X10^3/ul (4.0); Lymphocyte % 6.1 % (19-41); Mean Corp Hgb Conc 34.8 g/dL (32-36); Mean Corpuscular Hgb 34.5 pg (27.0-32.0); Mean Corpuscular Volume 99.2 fL (81-99); Mean Platelet Vol. 9.7 fl (6.2-12.0); Monocyte# 0.73 X10^3/uL; Monocyte% 5.1 % (0-10); NRBC Flagged by Analyzer 0 % (0-5); Neutrophil # 12.26 X10^3/uL (2.7-7.7); Neutrophil % 85.7 % (47-70); Platelet Count 159 K/mm3 (150-450); RBC Distribution Width CV 11.6 % (11.6-14.6); RBC Distribution Width SD 41.8 fl (35.1-43.9); Red Blood Count 3.74 M/mm3 (4.2-5.4); White Blood Count 14.3 K/mm3 (4.4-11.0)
[2019-09-01 07:58] LABS: Anion Gap 6 (5-15); BUN 4 mg/dL (7-18); BUN/Creat Ratio 8.8 RATIO (10-20); Calcium,Total 7.2 mg/dL (8.5-10.1); Chloride 103 mmol/L (98-107); Creatinine, Serum 0.46 mg/dL (0.55-1.02); EST Glomerular Filtration Rate 158 mL/min (>60); Est Glom Filt Rate - Afr Amer 191 mL/min (>60); Estimated Creatinine Clearance 144.58 ml/min; Glucose 182 mg/dL (74-106); Lipase 1203 U/L (73-393); Potassium 3.1 mmol/L (3.5-5.1); Sodium Level 136 mmol/L (136-145)
[2019-09-01] MEDS: 0.9% Saline Lock 10 ML Syringe IV ×3 (08:20→18:34)
[2019-09-01] MEDS: Potassium Chloride 10mEq/100mL 10 MEQ/100 ML IV.SOLN. 100 MEQ IV BOLUS ×2 (09:15→09:16)
[2019-09-01 09:25] LABS: Magnesium 1.3 mg/dL (1.6-2.6); Phosphorus 1.6 mg/dL (2.5-4.9)
[2019-09-01 10:00] VITALS: BP 144/72; PULSE 70; RESP 16; RESP 18; TEMP 36.6; O2SAT 97
[2019-09-01] MEDS: Glucerna Shake 120 ML LIQUID PO ×3 (10:58→21:47)
--- NOTE | 2019-09-01 11:48 | PCM.PN.HOSP ---
<Shon Valles - Last Filed: 09/01/19 11:48> Patient Problems: Active and Suspected Problems Acute pancreatitis (Acute) Reason for Visit: abd pain Subjective: no appreciable improvement in subjective symptoms. ongoing RUQ pain, nausea, vomiting, bloating. no fever/chills. No cough/sob. Vitals/I&O's: Vital Signs Temp Pulse Resp BP Pulse Ox 97.8 F 70 18 144/72 H 97 09/01/19 10:00 09/01/19 10:00 09/01/19 10:00 09/01/19 10:00 09/01/19 10:00 Oxygen Delivery Method Room Air Weight: 140 lb 1.6 oz Body Mass Index (BMI) 22.6 Intake and Output for Last 24 Hours 08/30/19 08/31/19 09/01/19 23:59 23:59 23:59 Intake Total 1200 / 1200 3735.83 / 3735.83 2038.34 / 2038.34 Output Total 450 / 750 400 / 400 Balance 1200 / 1200 3285.83 / 2985.83 1638.34 / 1638.34 General: Alert, Oriented x3, Cooperative HEENT: Atraumatic, PERRLA, EOMI, Normocephalic, - - some mild swelling around the eyes and ears = bilaterally. Neck: Supple, No JVD, Negative Carotid Bruits Lungs: Clear to auscultation, Normal air movement Cardiovascular: Regular rate, No murmurs Abdomen: Hypoactive Bowel Sounds, Distended, Tender Extremities: No edema, Capillary Refill Less than 3 Seconds Skin: No rashes, No breakdown Musculoskeletal: No Tenderness to Palpation of Joints or Extremities Neurological: Cranial nerves II-XII grossly intact Psych/Mental Status: Normal Affect, Appropriate, Alert and oriented to time, place, person, mood and affect Laboratory Results 08/31/19 18:05: POC Glucose 219 H 09/01/19 02:15: POC Glucose 193 H 09/01/19 05:43: POC Glucose 181 H 09/01/19 06:38: WBC 14.3 H, RBC 3.74 L, Hgb 12.9, Hct 37.1, MCV 99.2 H, MCH 34.5 H, MCHC 34.8, RDW Std Deviation 41.8, RDW Coeff of Teressa 11.6, Plt Count 159, MPV 9.7, Immature Gran % (Auto) 1.000 H, Neut % (Auto) 85.7 H, Lymph % (Auto) 6.1 L, [place] % (Auto) 5.1, Eos % (Auto) 1.7, Baso % (Auto) 0.4, Absolute Neuts (auto) 12.3 H, Absolute Lymphs (auto) 0.88, Nucleated RBC % 0 09/01/19 06:38: Sodium 136, Potassium 3.1 L, Chloride 103, Carbon Dioxide 27.0, Anion Gap 6, BUN 4 L, Creatinine 0.46 L, Estim Creat Clear Calc 144.58, Est GFR (MDRD) Af Amer 191, Est GFR (MDRD) Non-Af 158, BUN/Creatinine Ratio 8.8 L, Glucose 182 H, Calcium 7.2 L, Lipase 1203 H 09/01/19 06:38: Phosphorus 1.6 L, Magnesium 1.3 L Current Medications Dextrose (D50w Syringe) 0 gm IV X1 PRN; Protocol PRN Reason: Hypoglycemia Glucagon () 1 mg IM .X1 PRN PRN Reason: Hypoglycemia Hydromorphone HCl (Dilaudid Inj) 0.5 mg IV Q3H PRN PRN PRN Reason: Pain Score 6-10/10 Sodium Chloride () 1,000 mls @ 200 mls/hr IV .Q5H [facility] Last Admin: 09/01/19 06:59 Dose: 200 mls/hr Documented by: Potassium Chloride () 10 meq in 100 mls @ 100 mls/hr IV BOLUS Q1H ABE Stop: 09/01/19 12:59 Last Infusion: 09/01/19 10:16 Dose: Infused Documented by: Potassium Chloride () 10 meq in 100 mls @ 100 mls/hr IV BOLUS Q1H ABE Stop: 09/01/19 13:29 Insulin Human Lispro (Humalog Kwikpen (Bkc)) 0 unit SC Q6 ABE; Protocol Last Admin: 09/01/19 05:43 Dose: 1 u Documented by: Ketorolac Tromethamine (Toradol (Bkc)) 15 mg IV Q6H PRN PRN PRN Reason: pain 1-10/10 Stop: 09/05/19 09:33 Nutritional Formula (Lactose Free) (Glucerna Shake) 120 ml PO 4X/DAY [facility] Last Admin: 09/01/19 10:58 Dose: 120 ml Documented by: Ondansetron HCl (Zofran) 4 mg IV Q6H PRN PRN PRN Reason: NAUSEA/VOMITING Last Admin: 09/01/19 08:20 Dose: 4 mg Documented by: Prednisone () 30 mg PO DAILY@0800 [facility]; Taper Stop: 09/10/19 07:59 Last Admin: 09/01/19 08:33 Dose: Not Given Documented by: Prochlorperazine Edisylate (Compazine Iv) 5 mg IV Q6H PRN PRN PRN Reason: NAUSEA/VOMITING Last Admin: 09/01/19 05:38 Dose: 5 mg Documented by: Senna/Docusate Sodium (Senokot-S, Marilia-Colace) 2 tablet PO BID PRN PRN PRN Reason: Constipation Sodium Chloride () 10 - 40 ml IV UD PRN PRN Reason: SALINE FLUSH Last Admin: 09/01/19 08:20 Dose: 10 ml Documented by: STROKE Vital Signs/Narrative: Vital Signs Temp Pulse Resp BP Pulse Ox 09/01/19 10:00 97.8 F 70 16 144/72 H 97 Medical Necessity - Tobacco Use Smoking Status: Current every day smoker Tobacco Use: Cigarettes Assessment/Plan All Active Problems Acute pancreatitis (Acute) 1. Acute pancreatitis unclear etiology - no prior episode. minimal subjective improvement. Lipase markedly improved. CT c/w pancreatitis. Abd US shows hepatomegaly and fatty liver dz. WBC 12.2. K 3.3. Hold statin and losartan. moderately elevated trigs on lipid panel. -continue iv fluids/npo. possibly start clears tomorrow depending how she feels. still nauseous and vomiting this AM. -replace K, mag, and phos. 2. DMt2 - continue SSI. a1c 7.7, will advise discussing optimization of her medication regimen after DC and resumption of a more normal diet, with her pcp at follow up. 3. HLD - hold statin 4. HTN - hold losartan. 5. Asthma - stable. prn albuterol. 6. nicotine abuse -patch declined 7. 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 etoh negative at presentation. DVT ppx: early ambulation This patient was seen by Shon Hai PA-C under the supervision of Dr. Burk <Raymond Burk - Last Filed: 09/01/19 12:59> Subjective: retching with pain medication. minimal relief with pain medication. Vitals/I&O's: Vital Signs Temp Pulse Resp BP Pulse Ox 36.6 C 70 18 144/72 H 97 09/01/19 10:00 09/01/19 10:00 09/01/19 10:00 09/01/19 10:00 09/01/19 10:00 Oxygen Delivery Method Room Air Weight: 63.548 kg Body Mass Index (BMI) 22.6 Intake and Output for Last 24 Hours 08/30/19 08/31/19 09/01/19 23:59 23:59 23:59 Intake Total 1200 / 1200 3735.83 / 3735.83 3116.34 / 3116.34 Output Total 450 / 750 400 / 400 Balance 1200 / 1200 3285.83 / 2985.83 2716.34 / 2716.34 General: Alert, Cooperative HEENT: Atraumatic, Normocephalic Neck: No Nodes, Trachea Midline Lungs: Clear to auscultation, Normal air movement, No rhonchi, No wheeze Cardiovascular: Regular rate, Regular Rhythm, Normal S1, Normal S2, No murmurs Abdomen: Bowel Sounds Present, Soft, Non Tender, Non-Distended Extremities: No edema, No Calf Tenderness Skin: No rashes, No breakdown Psych/Mental Status: Normal Affect, Appropriate Laboratory Results 08/31/19 18:05: POC Glucose 219 H 09/01/19 02:15: POC Glucose 193 H 09/01/19 05:43: POC Glucose 181 H 09/01/19 06:38: WBC 14.3 H, RBC 3.74 L, Hgb 12.9, Hct 37.1, MCV 99.2 H, MCH 34.5 H, MCHC 34.8, RDW Std Deviation 41.8, RDW Coeff of Teressa 11.6, Plt Count 159, MPV 9.7, Immature Gran % (Auto) 1.000 H, Neut % (Auto) 85.7 H, Lymph % (Auto) 6.1 L, [place] % (Auto) 5.1, Eos % (Auto) 1.7, Baso % (Auto) 0.4, Absolute Neuts (auto) 12.3 H, Absolute Lymphs (auto) 0.88, Nucleated RBC % 0 09/01/19 06:38: Sodium 136, Potassium 3.1 L, Chloride 103, Carbon Dioxide 27.0, Anion Gap 6, BUN 4 L, Creatinine 0.46 L, Estim Creat Clear Calc 144.58, Est GFR (MDRD) Af Amer 191, Est GFR (MDRD) Non-Af 158, BUN/Creatinine Ratio 8.8 L, Glucose 182 H, Calcium 7.2 L, Lipase 1203 H 09/01/19 06:38: Phosphorus 1.6 L, Magnesium 1.3 L 09/01/19 11:44: POC Glucose 183 H Current Medications Dextrose (D50w Syringe) 0 gm IV X1 PRN; Protocol PRN Reason: Hypoglycemia Glucagon () 1 mg IM .X1 PRN PRN Reason: Hypoglycemia Hydromorphone HCl (Dilaudid Inj) 0.5 mg IV Q3H PRN PRN PRN Reason: Pain Score 6-1010 Sodium Chloride () 1,000 mls @ 200 mls/hr IV .Q5H ABE Last Admin: 09/01/19 12:10 Dose: 200 mls/hr Documented by: Potassium Chloride () 10 meq in 100 mls @ 100 mls/hr IV BOLUS Q1H ABE Stop: 09/01/19 12:59 Last Infusion: 09/01/19 12:44 Dose: 50 mls/hr Documented by: Magnesium Sulfate 2 gm/ Sodium (Chloride) 104 mls @ 52 mls/hr IV X1 ONE Stop: 09/01/19 13:51 Insulin Human Lispro (Humalog Kwikpen (Bk)) 0 unit SC Q6 ABE; Protocol Last Admin: 09/01/19 05:43 Dose: 1 u Documented by: Ketorolac Tromethamine (Toradol (Bkc)) 15 mg IV Q6H PRN PRN PRN Reason: pain 1-03/08 Stop: 09/05/19 09:33 Last Admin: 09/01/19 12:09 Dose: 15 mg Documented by: Nutritional Formula (Lactose Free) (Glucerna Shake) 120 ml PO 4X/DAY [facility] Last Admin: 09/01/19 10:58 Dose: 120 ml Documented by: Ondansetron HCl (Zofran) 4 mg IV Q6H PRN PRN PRN Reason: NAUSEA/VOMITING Last Admin: 09/01/19 08:20 Dose: 4 mg Documented by: Prednisone () 30 mg PO DAILY@0800 [facility]; Taper Stop: 09/10/19 07:59 Last Admin: 09/01/19 12:20 Dose: 30 mg Documented by: Prochlorperazine Edisylate (Compazine Iv) 5 mg IV Q6H PRN PRN PRN Reason: NAUSEA/VOMITING Last Admin: 09/01/19 12:10 Dose: 5 mg Documented by: Senna/Docusate Sodium (Senokot-S, Marilia-Colace) 2 tablet PO BID PRN PRN PRN Reason: Constipation Sodium Chloride () 10 - 40 ml IV UD PRN PRN Reason: SALINE FLUSH Last Admin: 09/01/19 12:10 Dose: 10 ml Documented by: STROKE Vital Signs/Narrative: Vital Signs Temp Pulse Resp BP Pulse Ox 09/01/19 10:00 36.6 C 70 16 144/72 H 97 Assessment/Plan Patient seen and examined independently. Data reviewed. I agree with the above note by the physician assistant manager quality management. 1. Acute pancreatitis: Improving Lipase improved advance diet to clears Continue with IV fluids, decreased rate deescalate pain medication follow up with GI as outpt. Inpatient E&M: 30765 [facility] Hosp L2
[2019-09-01] MEDS: Ketorolac 15 MG/ML Vial IV ×2 (12:09→18:34)
[2019-09-01] MEDS: Potassium Chloride 10mEq/100mL 10 MEQ/100 ML IV.SOLN. 70 MEQ IV BOLUS (12:20)
[2019-09-01] MEDS: predniSONE 10 MG Tablet 30 MG PO (12:20)
[2019-09-01 12:36] LABS: Bedside Glucose 183 mg/dL (70-110)
[2019-09-01] MEDS: Potassium Chloride 10mEq/100mL 10 MEQ/100 ML IV.SOLN. 50 MEQ IV BOLUS (14:29)
[2019-09-01 15:36] VITALS: BP 148/81; PULSE 102; RESP 18; TEMP 36.9; O2SAT 93
[2019-09-01 15:45] VITALS: PULSE 100
[2019-09-01 17:35] LABS: Bedside Glucose 252 mg/dL (70-110)
[2019-09-01] MEDS: Acetaminophen 325 MG Tablet 650 MG PO (20:55)
[2019-09-01 21:30] VITALS: BP 130/80; PULSE 98; RESP 18; TEMP 37.3; O2SAT 94
[2019-09-01 22:05] LABS: Bedside Glucose 345 mg/dL (70-110)
[2019-09-02] MEDS: 0.9% Saline Lock 10 ML Syringe IV ×2 (00:07→14:14)
[2019-09-02] MEDS: Ketorolac 15 MG/ML Vial IV ×2 (01:44→14:14)
[2019-09-02] MEDS: proCHLORPERazine 10 MG/2 ML Vial 5 MG IV (01:44)
[2019-09-02 02:00] VITALS: BP 148/90; PULSE 88; RESP 18; TEMP 37.1; O2SAT 94
[2019-09-02] MEDS: Acetaminophen 325 MG Tablet 650 MG PO (04:22)
[2019-09-02] MEDS: 0.9% Normal Saline 1,000 ML 200 ML IV (04:23)
[2019-09-02 05:45] LABS: Absolute Lymphocyte Count 0.93 X10^3/uL (0.83-4.51); Absolute Neutrophil Count 7.5 X10^3/uL (2.0-7.7); Basophil# 0.04 X10^3/uL; Basophil% 0.4 % (0-1); Eosinophil# 0.02 X10^3/uL; Eosinophils% 0.2 % (0-5); Hematocrit 32.2 % (37-47); Hemoglobin 11.1 g/dL (12.0-15.0); Lymphocyte # 0.93 X10^3/ul (4.0); Lymphocyte % 10.2 % (19-41); Mean Corp Hgb Conc 34.5 g/dL (32-36); Mean Corpuscular Hgb 34.6 pg (27.0-32.0); Mean Corpuscular Volume 100.3 fL (81-99); Mean Platelet Vol. 10.3 fl (6.2-12.0); Monocyte# 0.52 X10^3/uL; Monocyte% 5.7 % (0-10); NRBC Flagged by Analyzer 0 % (0-5); Neutrophil # 7.52 X10^3/uL (2.7-7.7); Neutrophil % 82.2 % (47-70); Platelet Count 175 K/mm3 (150-450); RBC Distribution Width CV 11.4 % (11.6-14.6); RBC Distribution Width SD 41.5 fl (35.1-43.9); Red Blood Count 3.21 M/mm3 (4.2-5.4); White Blood Count 9.2 K/mm3 (4.4-11.0)
[2019-09-02 06:03] LABS: Anion Gap 4 (5-15); BUN 5 mg/dL (7-18); BUN/Creat Ratio 8.1 RATIO (10-20); Calcium,Total 7.5 mg/dL (8.5-10.1); Chloride 109 mmol/L (98-107); Creatinine, Serum 0.62 mg/dL (0.55-1.02); EST Glomerular Filtration Rate 111 mL/min (>60); Est Glom Filt Rate - Afr Amer 135 mL/min (>60); Estimated Creatinine Clearance 107.27 ml/min; Glucose 253 mg/dL (74-106); Lipase 776 U/L (73-393); Magnesium 2.2 mg/dL (1.6-2.6); Potassium 3.7 mmol/L (3.5-5.1); Sodium Level 138 mmol/L (136-145)
[2019-09-02] MEDS: Insulin Lispro 100 UNIT/ML INSULN.PEN SC ×2 (06:24→12:35)
[2019-09-02 06:31] LABS: Bedside Glucose 223 mg/dL (70-110)
[2019-09-02 08:00] VITALS: BP 158/108; PULSE 74; RESP 18; TEMP 36.6; O2SAT 100
[2019-09-02] MEDS: predniSONE 10 MG Tablet 30 MG PO (09:48)
[2019-09-02] MEDS: Glucerna Shake 120 ML LIQUID PO (09:51)
--- NOTE | 2019-09-02 10:36 | DCINST_ITS ---
- Discharge Diagnoses Current Active Problems: Current Active and Chronic Problems Acute pancreatitis (Acute) Diabetes (Chronic) HTN (hypertension) (Chronic) HLD (hyperlipidemia) (Chronic) Alcoholism (Chronic) Nicotine abuse (Chronic) You will use the following diet at home:: Calorie/Carbohydrate Controlled (specify 1200, 1400, etc) - 1800 maira / day, Other - Advance diet carefully, slowly. Start with liquids only. Avoid spicy or greasy foods. Your food should be the consistency of: Regular Your liquids should be the consistency of: Regular/Thin Discharge Activity: Return to Normal Activity Call your doctor if you observe: Uncontrolled pain Allergies/Adverse Reactions: Allergies azithromycin [From Zithromax] Adverse Reaction (Verified 08/30/19 12:32) Diarrhea codeine Adverse Reaction (Verified 08/30/19 12:32) Nausea promethazine [From Phenergan] Adverse Reaction (Verified 08/30/19 15:11) Vomiting Medications to take at Discharge Duloxetine Hcl [Cymbalta] 20 mg PO BID 04/30/18 Doxepin HCl 150 mg PO QHS 08/30/19 Gabapentin [Neurontin] 200 mg PO TID 08/30/19 Acetaminophen [Tylenol Tablet] 650 mg PO Q6H PRN PRN tablet 09/02/19 Ondansetron HCl [Zofran] 4 mg PO Q6H PRN PRN #16 tab 09/02/19 Oxycodone [Oxyir] 5 mg PO Q4H PRN PRN 3 Days #18 tablet 09/02/19 The following prescriptions were given: Oxycodone [Oxyir] 5 mg PO Q4H PRN PRN 3 Days #18 tablet PRN Reason: Pain Score 6-10/10 Transmission Status: Received by [address] Ondansetron HCl [Zofran] 4 mg PO Q6H PRN PRN #16 tab PRN Reason: Nausea Transmission Status: Pending to [address] Primary Care Physician: Valerie Mullins MD [Primary Care Provider] - Please follow up with your Primary Care Physician in: 1 week Test Results: Test results from this visit will be discussed in further detail at your follow- up appointment, if applicable. Proposed Discharge Date: 09/02/19
[2019-09-02] MEDS: 0.9% Normal Saline 1,000 ML 125 ML IV (10:37)
[2019-09-02 11:26] LABS: Bedside Glucose 199 mg/dL (70-110)
--- NOTE | 2019-09-02 13:02 | PCM.DC.SUM ---
<Shon Valles - Last Filed: 09/02/19 13:02> Discharge Date and Diagnosis - Problem List Patient Problems: Active and Suspected Problems Acute pancreatitis (Acute) Date of Admission: 08/30/19 Date of Discharge: 09/02/19 - Primary Discharge Diagnosis Active and Suspected Problems Acute pancreatitis (Acute), unclear etiology Alcoholism, in remission T2DM, uncontrolled HLD with triglyceridemia Nicotine abuse HTN Asthma, no exacerbation - Secondary Discharge Diagnosis Chronic Problems Diabetes (Chronic) HTN (hypertension) (Chronic) HLD (hyperlipidemia) (Chronic) Alcoholism (Chronic) Nicotine abuse (Chronic) Hospital Course and Treatment Imaging Results: US/Abdomen Limited IMPRESSION: Hepatomegaly. Diffuse fatty infiltration of the liver. RAD/Chest 1 View (Portable) IMPRESSION: Normal x-ray examination of the chest. CT/Abdomen/Pelvis W IV Cont ONLY IMPRESSION: Findings indicative of a noncomplicated acute pancreatitis. Hepatomegaly and diffuse fatty infiltration of the liver. Operations: None Procedures: None Summary of Care Provided: Hospital Course: The patient is a 44 year old F with pmhx as above who presented to the ER with c/o severe abdominal pain. This began the day prior, was a sharp midepigastric pain radiating into the back, with nausea, vomiting, and intolerance of PO intake. She came to the ER and had a workup remarkable for CT abdomen showing pancreatitis, elevated lipase, RUQ US negative for gallbladder pathology. She was admitted for acute pancreatitis, made NPO, and given supportive care/IV fluids. She had slow but gradual improvement in her symptoms. GB pathology was ruled out per US, lipids showed Trig of 640, and possible inciting meds including losartan and rosuvastatin were held. She reported that despite being an alcoholic she had remained sober for at least 6 months with zero alcohol intake, and her EtOH level was negative at presentation. The etiology for her pancreatitis remains unclear. She eventually was able to have her diet advanced. She was discharged home in stable condition and should follow up with her PCP in 1 week. She will need to cautiously advance her diet sticking mainly to liquids at first, and should avoid spicy/greasy foods as she adds in more typical dietary options as tolerated. She was given a short course of oxycodone and zofran to use as needed. While here she was found to have an a1c of 7.7, and given her age and elevated triglycerides she would markedly benefit from optimizing her glucose control. She will need to discuss possible additional oral medications at follow up with her PCP, and follow an 1800 maira / day diet at home. This patient was seen by Shon Valles PA-C under the supervision of Dr. Burk. [] Patient Problems: Active and Suspected Problems Acute pancreatitis (Acute) - Physical Exam Vitals/I&O's: Vital Signs Temp Pulse Resp BP Pulse Ox 97.9 F 74 18 158/108 H 100 09/02/19 08:00 09/02/19 08:00 09/02/19 08:00 09/02/19 08:00 09/02/19 08:00 Oxygen Delivery Method Room Air Weight: 140 lb 1.6 oz Body Mass Index (BMI) 22.6 Intake and Output for Last 24 Hours 08/31/19 09/01/19 09/02/19 23:59 23:59 23:59 Intake Total 3735.83 / 3735.83 5635.68 / 5635.68 1999 Output Total 450 / 750 400 / 400 Balance 3285.83 / 2985.83 5235.68 / 5235.68 1999 General: Alert, Oriented x3, Cooperative HEENT: Atraumatic, PERRLA, EOMI, Normocephalic Neck: Supple, No JVD, Negative Carotid Bruits Lungs: Clear to auscultation, Normal air movement Cardiovascular: Regular rate, No murmurs Abdomen: Bowel Sounds Present, Soft, Non Tender Extremities: No edema, Capillary Refill Less than 3 Seconds Skin: No rashes, No breakdown Musculoskeletal: No Tenderness to Palpation of Joints or Extremities Neurological: Cranial nerves II-XII grossly intact Psych/Mental Status: Normal Affect, Appropriate, Alert and oriented to time, place, person, mood and affect Laboratory Results 09/01/19 17:32: POC Glucose 252 H 09/01/19 21:45: POC Glucose 345 H 09/02/19 05:08: Sodium 138, Potassium 3.7, Chloride 109 H, Carbon Dioxide 25.0, Anion Gap 4 L, BUN 5 L, Creatinine 0.62, Estim Creat Clear Calc 107.27, Est GFR (MDRD) Af Amer 135, Est GFR (MDRD) Non-Af 111, BUN/Creatinine Ratio 8.1 L, Glucose 253 H, Calcium 7.5 L, Magnesium 2.2, Lipase 776 H 09/02/19 05:08: WBC 9.2, RBC 3.21 L, Hgb 11.1 L, Hct 32.2 L, MCV 100.3 H, MCH 34.6 H, MCHC 34.5, RDW Std Deviation 41.5, RDW Coeff of Teressa 11.4 L, Plt Count 175, MPV 10.3, Immature Gran % (Auto) 1.300 H, Neut % (Auto) 82.2 H, Lymph % (Auto) 10.2 L, Wells % (Auto) 5.7, Eos % (Auto) 0.2, Baso % (Auto) 0.4, Absolute Neuts (auto) 7.5, Absolute Lymphs (auto) 0.93, Nucleated RBC % 0 09/02/19 06:21: POC Glucose 223 H 09/02/19 11:17: POC Glucose 199 H Current Medications Acetaminophen (Tylenol) 650 mg PO Q6H PRN PRN PRN Reason: pain -03/08 Last Admin: 09/02/19 04:22 Dose: 650 mg Documented by: Albuterol Sulfate (Ventolin Aerosols) 2.5 mg INHALATION Q4H PRN PRN PRN Reason: SOB &/OR WHEEZING Dextrose (D50w Syringe) 0 gm IV X1 PRN; Protocol PRN Reason: Hypoglycemia Glucagon () 1 mg IM .X1 PRN PRN Reason: Hypoglycemia Hydromorphone HCl (Dilaudid Inj) 0.5 mg IV Q3H PRN PRN PRN Reason: Pain Score 6-10/10 Sodium Chloride () 1,000 mls @ 125 mls/hr IV .Q8H ABE Last Admin: 09/02/19 10:37 Dose: 125 mls/hr Documented by: Insulin Human Lispro (Humalog Kwikpen (Bk)) 0 unit SC ACHS [facility]; Protocol Last Admin: 09/02/19 12:35 Dose: 1 u Documented by: Ketorolac Tromethamine (Toradol (Bkc)) 15 mg IV Q6H PRN PRN PRN Reason: pain 1-03/08 Stop: 09/05/19 09:33 Last Admin: 09/02/19 01:44 Dose: 15 mg Documented by: Nutritional Formula (Lactose Free) (Glucerna Shake) 120 ml PO 4X/DAY [facility] Last Admin: 09/02/19 09:51 Dose: 120 ml Documented by: Ondansetron HCl (Zofran) 4 mg IV Q6H PRN PRN PRN Reason: NAUSEA/VOMITING Last Admin: 09/01/19 14:30 Dose: 4 mg Documented by: Potassium Phos/Sodium Phos (Neutra-Phos Packet) 1 packet PO TIDCM [facility] Prednisone () 30 mg PO DAILY@0800 [facility]; Taper Stop: 09/10/19 07:59 Last Admin: 09/02/19 09:48 Dose: 30 mg Documented by: Prochlorperazine Edisylate (Compazine Iv) 5 mg IV Q6H PRN PRN PRN Reason: NAUSEA/VOMITING Last Admin: 09/02/19 01:44 Dose: 5 mg Documented by: Senna/Docusate Sodium (Senokot-S, Marilia-Colace) 2 tablet PO BID PRN PRN PRN Reason: Constipation Sodium Chloride () 10 - 40 ml IV UD PRN PRN Reason: SALINE FLUSH Last Admin: 09/02/19 00:07 Dose: 10 ml Documented by: Discharge Diet: Low fat/ Low Cholesterol, 1800 Calorie Control Diet, 2000 mg Sodium Diet Discharge Activity: Return to Normal Activity Call your doctor if you observe: Uncontrolled pain Home Medications: Medications to take at Discharge Duloxetine Hcl [Cymbalta] 20 mg PO BID 04/30/18 Doxepin HCl 150 mg PO QHS 08/30/19 Gabapentin [Neurontin] 200 mg PO TID 08/30/19 Acetaminophen [Tylenol Tablet] 650 mg PO Q6H PRN PRN tab 09/02/19 Ondansetron HCl [Zofran] 4 mg PO Q6H PRN PRN #16 tab 09/02/19 Oxycodone [Oxyir] 5 mg PO Q4H PRN PRN 3 Days #18 tab 09/02/19 Following Prescrptions Were Given to Patient: Oxycodone [Oxyir] 5 mg PO Q4H PRN PRN 3 Days #18 tab PRN Reason: Pain Score 6-10/10 Transmission Status: Received by [facility] Ondansetron HCl [Zofran] 4 mg PO Q6H PRN PRN #16 tab PRN Reason: Nausea Transmission Status: Received by [facility] Primary Care Physician: Valerie Mullins MD [Primary Care Provider] - Please follow up with your Primary Care Physician in: 1 week Disposition: Home Minutes spent on discharge:: 35 Patient Condition:: Stable Medical Necessity - Tobacco Use Smoking Status: Current every day smoker Tobacco Use: Cigarettes Meaningful Use Info Meaningful Use Diagnoses (Choose all that apply): None applicable <Raymond Burk - Last Filed: 09/02/19 13:37> Discharge Date and Diagnosis - Primary Discharge Diagnosis Active and Suspected Problems Acute pancreatitis (Acute) - Secondary Discharge Diagnosis Chronic Problems Diabetes (Chronic) HTN (hypertension) (Chronic) HLD (hyperlipidemia) (Chronic) Alcoholism (Chronic) Nicotine abuse (Chronic) Hospital Course and Treatment Operations: None Procedures: None Summary of Care Provided: Patient seen and examined independently. Data reviewed. I agree with the above note by the physician criminal legal assistant. The patient is a 44 year old F presents with abdominal pain. Patient found to have acute pancreatitis. Lipase was elevated and then trended upward slightly and then went down precipitously the following day. Today it down again. Patient is diet was advanced to clears on the fourth and advanced to bland diet today which she is seem to of tolerated thus far. The etiology of her pancreatitis is not clearly identified as patient claims to be sober from alcohol and ultrasound and CAT scan were negative for any gallstones. Possibly could be associate with medications. Patient advised to follow-up with gastroenterology in the future in regards to further evaluating her pancreatitis. Patient was otherwise stable for discharge. [] - Physical Exam Vitals/I&O's: Vital Signs Temp Pulse Resp BP Pulse Ox 36.6 C 74 18 158/108 H 100 09/02/19 08:00 09/02/19 08:00 09/02/19 08:00 09/02/19 08:00 09/02/19 08:00 Oxygen Delivery Method Room Air Weight: 63.548 kg Body Mass Index (BMI) 22.6 Intake and Output for Last 24 Hours 08/31/19 09/01/19 09/02/19 23:59 23:59 23:59 Intake Total 3735.83 / 3735.83 5635.68 / 5635.68 236 / 2360 Output Total 450 / 750 400 / 400 Balance 3285.83 / 2985.83 5235.68 / 5235.68 236 / 2360 General: Alert, Cooperative, - - Up walking in room. Bending over to waste picker some shoes without any difficulty. HEENT: Atraumatic, Normocephalic Lungs: Clear to auscultation, Normal air movement, No rhonchi, No wheeze Cardiovascular: Regular rate, Regular Rhythm, Normal S1, Normal S2, No murmurs Abdomen: Bowel Sounds Present, Soft, Non Tender, Non-Distended Extremities: No edema, No Calf Tenderness Psych/Mental Status: Normal Affect, Appropriate Laboratory Results 09/01/19 17:32: POC Glucose 252 H 09/01/19 21:45: POC Glucose 345 H 09/02/19 05:08: Sodium 138, Potassium 3.7, Chloride 109 H, Carbon Dioxide 25.0, Anion Gap 4 L, BUN 5 L, Creatinine 0.62, Estim Creat Clear Calc 107.27, Est GFR (MDRD) Af Amer 135, Est GFR (MDRD) Non-Af 111, BUN/Creatinine Ratio 8.1 L, Glucose 253 H, Calcium 7.5 L, Magnesium 2.2, Lipase 776 H 09/02/19 05:08: WBC 9.2, RBC 3.21 L, Hgb 11.1 L, Hct 32.2 L, MCV 100.3 H, MCH 34.6 H, MCHC 34.5, RDW Std Deviation 41.5, RDW Coeff of Teressa 11.4 L, Plt Count 175, MPV 10.3, Immature Gran % (Auto) 1.300 H, Neut % (Auto) 82.2 H, Lymph % (Auto) 10.2 L, Wells % (Auto) 5.7, Eos % (Auto) 0.2, Baso % (Auto) 0.4, Absolute Neuts (auto) 7.5, Absolute Lymphs (auto) 0.93, Nucleated RBC % 0 09/02/19 06:21: POC Glucose 223 H 09/02/19 11:17: POC Glucose 199 H Current Medications Acetaminophen (Tylenol) 650 mg PO Q6H PRN PRN PRN Reason: pain 1-03/08 Last Admin: 09/02/19 04:22 Dose: 650 mg Documented by: Albuterol Sulfate (Ventolin Aerosols) 2.5 mg INHALATION Q4H PRN PRN PRN Reason: SOB &/OR WHEEZING Dextrose (D50w Syringe) 0 gm IV X1 PRN; Protocol PRN Reason: Hypoglycemia Glucagon () 1 mg IM .X1 PRN PRN Reason: Hypoglycemia Sodium Chloride () 1,000 mls @ 125 mls/hr IV .Q8H [facility] Last Admin: 09/02/19 10:37 Dose: 125 mls/hr Documented by: Insulin Human Lispro (Humalog Kwikpen (Bkc)) 0 unit [place] [facility]; Protocol Last Admin: 09/02/19 12:35 Dose: 1 u Documented by: Ketorolac Tromethamine (Toradol (Bkc)) 15 mg IV Q6H PRN PRN PRN Reason: pain 1-03/08 Stop: 09/05/19 09:33 Last Admin: 09/02/19 01:44 Dose: 15 mg Documented by: Nutritional Formula (Lactose Free) (Glucerna Shake) 120 ml PO 4X/DAY [facility] Last Admin: 09/02/19 09:51 Dose: 120 ml Documented by: Ondansetron HCl (Zofran) 4 mg IV Q6H PRN PRN PRN Reason: NAUSEA/VOMITING Last Admin: 09/01/19 14:30 Dose: 4 mg Documented by: Oxycodone HCl (Oxyir) 5 mg PO Q4H PRN PRN PRN Reason: Pain Score 6-10/10 Potassium Phos/Sodium Phos (Neutra-Phos Packet) [facility] Prednisone () 30 mg PO DAILY@0800 [facility]; Taper Stop: 09/10/19 07:59 Last Admin: 09/02/19 09:48 Dose: 30 mg Documented by: Prochlorperazine Edisylate (Compazine Iv) 5 mg IV Q6H PRN PRN PRN Reason: NAUSEA/VOMITING Last Admin: 09/02/19 01:44 Dose: 5 mg Documented by: Senna/Docusate Sodium (Senokot-S, Marilia-Colace) 2 tablet PO BID PRN PRN PRN Reason: Constipation Sodium Chloride () 10 - 40 ml IV UD PRN PRN Reason: SALINE FLUSH Last Admin: 09/02/19 00:07 Dose: 10 ml Documented by: Discharge Diet: Low fat/ Low Cholesterol, 1800 Calorie Control Diet, 2000 mg Sodium Diet Discharge Activity: Return to Normal Activity Call your doctor if you observe: Uncontrolled pain Disposition: Home Medical Necessity - Tobacco Use Tobacco Use: Cigarettes Meaningful Use Info Meaningful Use Diagnoses (Choose all that apply): None applicable Inpatient E&M: 81287 Disch Hosp
[2019-09-02 13:48] VITALS: BP 160/100; PULSE 88; RESP 18; TEMP 37.3; O2SAT 98
[2019-09-02] MEDS: Na Biphos/Potassium Phosphate PACKET 1 PACKET PO (13:59)
--- NOTE | 2019-09-02 14:09 | NURSING ---
Text sent to Shon making him aware that pt tolerated lunch a bit better than she did breakfast. Also notified him of pts BPs today.
== END 2019-09-02 15:18 | disposition home or self-care (01) | DRG 440 ==
LOC: ED 18:25 → PCU 18:33
PROVIDERS: Physician Assistant; Admitting Provider Internal Medicine; Emergency Provider Physician Assistant Medical; PCP Internal Medicine
DX: K85.90 Acute pancreatitis without necrosis or infection, unspecified (principal); K76.0 Fatty (change of) liver, not elsewhere classified; I10 Essential (primary) hypertension; E11.65 Type 2 diabetes mellitus with hyperglycemia; E78.5 Hyperlipidemia, unspecified; E78.1 Pure hyperglyceridemia; E87.6 Hypokalemia; J45.909 Unspecified asthma, uncomplicated; F10.21 Alcohol dependence, in remission; Y90.0 Blood alcohol level of less than 20 mg/100 ml; F17.210 Nicotine dependence, cigarettes, uncomplicated; Z79.84 Long term (current) use of oral hypoglycemic drugs
CPT/HCPCS: 36415; 71045; 74177; 76705; 80048; 80053; 80061; 80307; 80320; 81001; 82140; 82962; 83036; 83690; 83735; 83880; 84100; 84484; 85025; 85610; 93005; 99284; 99406; J7030; J7040; Q9967; A4216; G0480; J2405

== ENCOUNTER 2020-09-16 09:44 | Inpatient (IN) | payer MEDICAID, SELFPAY ==
[2020-09-16 09:45] VITALS: BP 147/85; PULSE 96; RESP 16; TEMP 36.1; O2SAT 97; BMI 21.9
--- NOTE | 2020-09-16 09:54 | CT_ITS ---
STUDY: CT ABDOMEN AND PELVIS WITH CONTRAST REASON FOR EXAM: Female, 45 years old. Abd distension, nausea. History of prior pancreatitis. RADIATION DOSAGE (If Supplied By Facility): CTDIvol = ( 16.45 ) mGy, DLP = ( 989.59 ) mGycm TECHNIQUE: Transaxial images were obtained from the dome of the diaphragm to the symphysis pubis without oral contrast. IV 100mL Isovue-300 was administered. Sagittal and coronal images were reconstructed. Individualized dose optimization techniques were used for this CT. COMPARISON: Comparison is made with prior study dated 08/30/2019. FINDINGS: The patient is status post bilateral breast prosthesis. The visualized lung bases are unremarkable. The visualized portions of the heart are within normal limits. There is decreased attenuation of the liver consistent with steatosis. Hepatomegaly. There now is evidence of a geographic areas of the hypodensities in the superior anterior aspect of the right lobe of liver as well as in the left lobe in the perivascular distribution. Decreased attenuation is also seen in the posterior inferior aspect of the right lobe. Correlation with ultrasound is recommended. Normal gallbladder and extrahepatic biliary system. Normal spleen. There is diffuse enlargement of the pancreas with clive-pancreatic edema suggesting acute pancreatitis. Normal bilateral adrenal glands. Normal right kidney. Normal left kidney. Normal visualized stomach. Normal small intestine. Normal colon. The appendix is visualized and appears normal. There is scattered atherosclerotic calcification of the abdominal aorta, without a demonstrated aneurysm. Normal inferior vena cava. Normal retroperitoneum. Normal urinary bladder. Enlarged fibroid uterus. 2.4 sinus cyst in the left ovary. Normal abdominal wall. Normal osseous structures. CT/Abdomen/Pelvis W IV Cont ONLY IMPRESSION: Hepatomegaly with diffuse fatty infiltration of the liver. At this time, there are several geographic areas of altered density within the right and left lobes of the liver as described. Correlation with ultrasound is recommended. Diffuse enlargement of the head and uncinate process of the pancreas with increased markings in the surrounding fat suggestive of acute pancreatitis. Electronically Signed: Denzel Quijano MD at 11:30 EDT , Service support ,
--- NOTE | 2020-09-16 10:00 | ED.VIS.GEN ---
History of Present Illness Chief Complaint: Abd Pain Informant: Patient Onset: Days Narrative: Patient presents increased abdominal distention over the past 2 days however today having pain and nausea. No vomiting. Normal bowel movement this morning with positive flatus. in the past his only abdominal surgery. 2 years ago similar symptoms with findings of pancreatitis reported secondary to diabetes. Denies alcohol history. Denies urinary symptoms. She is perimenopausal last menstrual period was November of last year. History hypertension, diabetes, hypercholesterolemia. Prior similar symptoms: Yes Past Medical History - Allergies and Home Meds Allergies/Adverse Reactions: Allergies azithromycin [From Zithromax] Adverse Reaction (Verified 09/16/20 09:45) Diarrhea codeine Adverse Reaction (Verified 09/16/20 09:45) Nausea promethazine [From Phenergan] Adverse Reaction (Verified 09/16/20 09:45) Vomiting Past Medical History: - - Hypertension, diabetes, hypercholesterolemia, history of pancreatitis Surgical History: no surgical history Smoking Status: Current every day smoker - Family History Maternal Family History: Reports: Cancer - breast cancer, uterine cancer Paternal Family History: Reports: Cancer Review of Systems General: Denies: Chills, Fever, Sweats Eyes: Denies: Visual changes - bilaterally, Diplopia ENT: Denies: Rhinorrhea, Sore throat Cardiovascular: Denies: Chest pain, Palpitations Respiratory: Denies: Dyspnea, Cough, Dyspnea on exertion Gastrointestinal: Reports: Abdominal pain, Nausea. Denies: Vomiting, Diarrhea, Melena, Hematochezia Genitourinary: Denies: Dysuria, Hematuria, Frequency Musculoskeletal: Denies: Back pain, Extremity Pain Skin: Denies: Rash, Wounds Neurological: Denies: Headache, Weakness, Numbness Physical Exam Vital Signs/Narrative: Vital Signs Temp Pulse Resp BP Pulse Ox 09/16/20 09:45 97 F L 96 16 147/85 H 97 Inital Vital Signs reviewed: Yes General: Well nourished, Well developed, No Acute Distress Head: Normocephalic, Atraumatic Eyes: Perrl, EOMI ENT: Moist mucous membranes, No rhinorrhea Neck: Supple, Nontender Cardiovascular: Regular rate, Regular rhythm, No murmurs Respiratory: No distress, CTA bilaterally, Chest nontender Abdomen: Soft, Nontender, Normal bowel sounds, - - Distended abdomen hypoactive bowel sounds, no guarding or rebound. Negative Moore's McBurney's tenderness. Back: Nontender, Normal Inspection Extremities: Nontender, No edema Skin: Normal color, No rash Neurological: Alert, Oriented x3, Cranial nerves II-XII grossly intact, Normal Strength, Normal Sensation Psychological: Normal affect, Normal Mood Diagnostic/Tx/Re-eval Clinical Impression(s) from Imaging Studies Abdomen/Pelvis CT 09/16/20 09:54 IMPRESSION: Hepatomegaly with diffuse fatty infiltration of the liver. At this time, there are several geographic areas of altered density within the right and left lobes of the liver as described. Correlation with ultrasound is recommended. Diffuse enlargement of the head and uncinate process of the pancreas with increased markings in the surrounding fat suggestive of acute pancreatitis. Electronically Signed: Denzel Quijano MD at 11:30 EDT , Service support , Gallbladder Ultrasound 09/16/20 11:35 IMPRESSION: Diffuse fatty infiltration of the liver. No focal amount is seen. Heterogeneous enlargement of the pancreas. Electronically Signed: Denzel Quijano MD at 13:04 EDT , Service support , Abnormal Lab Results 09/16/20 09/16/20 09/16/20 10:00 10:00 10:00 WBC 7.4 RBC 3.86 L Hgb 13.6 Hct 39.8 MCV 103.1 H MCH 35.2 H MCHC 34.2 RDW Std Deviation 45.2 H RDW Coeff of Teressa 12.0 Plt Count 186 MPV 9.4 Immature Gran % (Auto) 0.700 Neut % (Auto) 75.1 H Lymph % (Auto) 15.1 L Aiken % (Auto) 5.4 Eos % (Auto) 3.4 Baso % (Auto) 0.3 Absolute Neuts (auto) 5.6 Absolute Lymphs (auto) 1.12 Nucleated RBC % 0 Sodium 137 Potassium 3.7 Chloride 100 Carbon Dioxide 30.0 Anion Gap 7 BUN 6 L Creatinine 0.75 Estim Creat Clear Calc 87.74 Est GFR (MDRD) Af Amer 106 Est GFR (MDRD) Non-Af 88 BUN/Creatinine Ratio 8.0 L Glucose 174 H Calcium 10.1 Total Bilirubin 0.60 Direct Bilirubin 0.25 AST 71 H ALT 76 H Alkaline Phosphatase 72 Total Protein 6.7 Albumin 3.2 Globulin 3.5 Lipase 1050 H Serum , Qual NEGATIVE - Medical Decision Making Patient nonsurgical abdomen increased abdominal distention. History similar with pancreatitis. Morphine Zofran fluids started. Work-up initiated. Labs with acute pancreatitis lipase of 1050. There is slight transaminitis. CT scan confirms pancreatitis. There is reported concerns for hypodensities in the liver. There was no obstruction on CT. With her transaminitis ultrasound gallbladder obtained shows no acute process. Additional pain medicines fluids n.p.o. Discussed with hospitalist Dr. Aparicio for admission. ED Disposition - Plan for ED Patient: Disposition: Acute Care Hospital [facility] Diagnosis: Acute pancreatitis, Transaminitis, Abdominal pain
[2020-09-16 10:15] LABS: Absolute Lymphocyte Count 1.12 X10^3/uL (0.83-4.51); Absolute Neutrophil Count 5.6 X10^3/uL (2.0-7.7); Basophil# 0.02 X10^3/uL; Basophil% 0.3 % (0-1); Eosinophil# 0.25 X10^3/uL; Eosinophils% 3.4 % (0-5); Hematocrit 39.8 % (37-47); Hemoglobin 13.6 g/dL (12.0-15.0); Lymphocyte # 1.12 X10^3/ul (0.83-4.51); Lymphocyte % 15.1 % (19-41); Mean Corp Hgb Conc 34.2 g/dL (32-36); Mean Corpuscular Hgb 35.2 pg (27.0-32.0); Mean Corpuscular Volume 103.1 fL (81-99); Mean Platelet Vol. 9.4 fl (6.2-12.0); Monocyte% 5.4 % (0-10); NRBC Flagged by Analyzer 0 % (0-5); Neutrophil # 5.57 X10^3/uL (2.7-7.7); Neutrophil % 75.1 % (47-70); Platelet Count 186 K/mm3 (150-450); RBC Distribution Width SD 45.2 fl (35.1-43.9); Red Blood Count 3.86 M/mm3 (4.2-5.4); White Blood Count 7.4 K/mm3 (4.4-11.0)
[2020-09-16] MEDS: Morphine 4 MG/ML Syringe IV (10:17)
[2020-09-16] MEDS: Ondansetron 4 MG/2 ML Vial IV ×3 (10:17→22:48)
[2020-09-16] MEDS: 0.9% Normal Saline 1,000 ML 1000 ML IV (10:19)
[2020-09-16 10:22] LABS: Internal QC Validated? YES +Cl - CLEAR BKGD; Pregnancy, Serum, hCG Quali. NEGATIVE Negative
[2020-09-16 10:30] LABS: AST(SGOT) 71 U/L (15-37); Alanine Aminotransfer ALT/SGPT 76 U/L (13-56); Albumin, Serum 3.2 g/dL (3.2-5.0); Alkaline Phosphatase 72 U/L (45-117); Anion Gap 7 (5-15); BUN 6 mg/dL (7-18); Bilirubin, Direct 0.25 mg/dL (0.00-0.30); Calcium,Total 10.1 mg/dL (8.5-10.1); Chloride 100 mmol/L (98-107); Creatinine, Serum 0.75 mg/dL (0.55-1.02); EST Glomerular Filtration Rate 88 mL/min (>60); Est Glom Filt Rate - Afr Amer 106 mL/min (>60); Estimated Creatinine Clearance 87.74 ml/min; Globulin 3.5 g/dL (2.2-4.2); Glucose 174 mg/dL (74-106); Lipase 1050 U/L (73-393); Potassium 3.7 mmol/L (3.5-5.1); Protein, Total 6.7 g/dL (6.4-8.2); Sodium Level 137 mmol/L (136-145)
[2020-09-16] MEDS: HYDROmorphone 1 MG/ML Syringe IV ×5 (11:34→22:57)
--- NOTE | 2020-09-16 11:35 | US_ITS ---
STUDY: ABDOMINAL ULTRASOUND - RIGHT UPPER QUADRANT REASON FOR VISIT: Female, 45 years old pancreatitis, liver densities TECHNIQUE: Ultrasound evaluation of the right upper quadrant was performed with real-time and static santo-scale imaging. TECHNICAL QUALITY: Adequate. COMPARISON: Comparison is made with prior scan of the abdomen done earlier today. FINDINGS: Liver: The liver measures 15.7 cm. There is increased echogenicity consistent with fatty infiltration. No focal abnormality is seen. The bile ducts are within normal limits. There is hepatic color flow. The direction of portal flow is hepatopetal. There is no demonstrated mass lesion. Gallbladder: Normal distended gallbladder. The gallbladder wall measures 2.1 mm. There is a negative sonographic Moore''s sign. There is no pericholecystic fluid. There are no gallstones. Common Bile Duct (C.B.D.): The common bile duct measures 3.7 mm. Pancreas: Heterogeneous enlargement of the head and body portions of the pancreas. Right Kidney: Normal size of the right kidney. The right kidney measures 10.7 cm x 5.4 cm x 4.1 cm. Normal renal cortex. The right cortex measures 11.4 cm. There is no demonstrated renal mass or cyst. There is no right hydronephrosis. US/Gallbladder IMPRESSION: Diffuse fatty infiltration of the liver. No focal amount is seen. Heterogeneous enlargement of the pancreas. Electronically Signed: Denzel Quijano MD at 13:04 EDT , Service support ,
[2020-09-16 11:47] VITALS: BP 149/89; PULSE 86; RESP 16; O2SAT 99
--- NOTE | 2020-09-16 12:19 | PCM.HP.STD ---
Problem List (1) Acute pancreatitis Status: Acute (2) Alcoholism Status: Chronic (3) Diabetes Status: Chronic Qualifiers: Diabetes mellitus type: type 2 (4) HLD (hyperlipidemia) Status: Chronic (5) HTN (hypertension) Status: Chronic (6) Nicotine abuse Status: Chronic History of Present Illness Date of Admission: 09/16/20 Chief Complaint: Abdominal pain The patient is a 45 year old F past medical history segment for diabetes mellitus type 2, hypertension history of alcohol induced pancreatitis who presented with abdominal pain. Patient symptoms started 2 days prior to admission. Pain was located in the periumbilical area. Patient also did experience significant bloating with associated nausea and vomiting. In view of the persistent nature of her symptoms presented to the emergency department. Imaging studies in the ED demonstrated Diffuse enlargement of the head and uncinate process of the pancreas with increased markings in the surrounding fat suggestive of acute pancreatitis. Admitted to regular nursing floor for further management Past Medical History Past Medical History (Chronic Problems): Chronic Problems Diabetes (Chronic) HTN (hypertension) (Chronic) HLD (hyperlipidemia) (Chronic) Alcoholism (Chronic) Nicotine abuse (Chronic) Allergies azithromycin [From Zithromax] Adverse Reaction (Verified 09/16/20 09:45) Diarrhea codeine Adverse Reaction (Verified 09/16/20 09:45) Nausea promethazine [From Phenergan] Adverse Reaction (Verified 09/16/20 09:45) Vomiting Home Medications: Ambulatory Orders Medication Instructions Recorded Duloxetine Hcl [Cymbalta] 60 mg PO BID 04/30/18 Doxepin HCl 150 mg PO QHS 08/30/19 Gabapentin [Neurontin] 300 mg PO TID 08/30/19 Acetaminophen [Tylenol Tablet] 650 mg PO Q6H PRN PRN tab 09/02/19 Ondansetron HCl [Zofran] 4 mg PO Q6H PRN PRN #16 tab 09/02/19 ALPRAZolam [Xanax] 0.25 mg PO BID PRN PRN 09/16/20 ALPRAZolam [Xanax] 0.25 mg PO BID PRN PRN 09/16/20 Albuterol Sulfate [Proair 90 mcg IH BID 09/16/20 Respiclick] Eletriptan Hydrobromide 40 mg PO 09/16/20 [Eletriptan HBr] Eletriptan Hydrobromide [Relpax] 40 mg PO PRN PRN 09/16/20 Losartan Potassium [Cozaar] 50 mg PO DAILY 09/16/20 Meloxicam [Mobic] 15 mg PO DAILY 09/16/20 Nicotine [Nicoderm Cq (PBKC)] 14 mg TRANSDERM. DAILY 09/16/20 metFORMIN HCl [Glucophage] 500 mg PO BIDCM 09/16/20 Surgical History: no surgical history Psychiatric History: No pertinent psych hx LICENSED PRACTICAL NURSE History: No pertinent LICENSED PRACTICAL NURSE history Smoking Status: Current every day smoker - *Family History Maternal History Items: Cancer - breast cancer, uterine cancer Paternal History Items: Cancer Review of Systems Constitutional: Reports: Anorexia. Denies: Chills, Fever, Night Sweats, Weight Change HEENT: Denies: Head Aches, Sinus Congestion, Sinus Drainage Cardiovascular: Denies: Chest Pain, Orthopnea, Palpitations, Paroxysmal Noc. Dyspnea Respiratory: Denies: Cough, Shortness of breath at rest, Shortness of breath upon exertion, Sputum production Gastrointestinal: Reports: Abdominal Pain, Nausea, Vomiting. Denies: Hematemesis, Hematochezia, Melena Genitourinary: Denies: Dysuria, Frequency, Hematuria, Urgency Musculoskeletal: Denies: Joint Pain, Joint Tenderness Skin: Denies: Rash Neurological: Denies: Focal weakness, Numbness, Tingling Psychiatric: Denies: Homicidal Ideations, Suicidal Ideations Hematologic/ Lymphatic: Denies: Easy Bruising, Easy Bleeding VTE Information - Inpt Only VTE Present on Admission: No VTE Mechan Device Prophylaxis: None VTE Pharm Prophylaxis ordered?: Yes Objective: GENERAL: cooperative HEENT: Atraumatic; EYES; Anicteric, Normal Conjunctiva NECK; supple, normal thyroid, RESPIRATORY: Diminished to auscultation CARDIOVASCULAR: Regular S1 S2, GI: Distended, hypoactive bowel sounds : No Renal angle tenderness; EXTREMITIES: No edema, no clubbing, MUSCULOSKELETAL: no muscle waisting NEURO: Awake; no lateralizing signs. SKIN: No Rash PSYCH; Flat affect - Physical Exam Vitals/I&O's: Vital Signs Temp Pulse Resp BP Pulse Ox 97 F L 86 16 149/89 H 99 09/16/20 09:45 09/16/20 11:47 09/16/20 11:47 09/16/20 11:47 09/16/20 11:47 Oxygen Delivery Method Room Air Weight: 61.689 kg Body Mass Index (BMI) 21.9 Laboratory Results 09/16/20 10:00: WBC 7.4, RBC 3.86 L, Hgb 13.6, Hct 39.8, MCV 103.1 H, MCH 35.2 H, MCHC 34.2, RDW Std Deviation 45.2 H, RDW Coeff of Teressa 12.0, Plt Count 186, MPV 9.4, Immature Gran % (Auto) 0.700, Neut % (Auto) 75.1 H, Lymph % (Auto) 15.1 L, [place] % (Auto) 5.4, Eos % (Auto) 3.4, Baso % (Auto) 0.3, Absolute Neuts (auto) 5.6, Absolute Lymphs (auto) 1.12, Nucleated RBC % 0 09/16/20 10:00: Sodium 137, Potassium 3.7, Chloride 100, Carbon Dioxide 30.0, Anion Gap 7, BUN 6 L, Creatinine 0.75, Estim Creat Clear Calc 87.74, Est GFR (MDRD) Af Amer 106, Est GFR (MDRD) Non-Af 88, BUN/Creatinine Ratio 8.0 L, Glucose 174 H, Calcium 10.1, Total Bilirubin 0.60, Direct Bilirubin 0.25, AST 71 H, ALT 76 H, Alkaline Phosphatase 72, Total Protein 6.7, Albumin 3.2, Globulin 3.5, Lipase 1050 H 09/16/20 10:00: Serum , Qual NEGATIVE Current Medications Sodium Chloride () 1,000 mls @ 100 mls/hr IV .Q10H [facility] Assessment/Plan All Active Problems Acute pancreatitis (Acute) Patient is a 45-year-old lady presented with abdominal discomfort with associated nausea and vomiting found to have elevated lipase level consistent with acute pancreatitis 1. Acute on chronic pancreatitis ?Patient denies any recent alcohol use however has history of alcohol induced pancreatitis. Admitted to regular nursing floor for conservative management with clear liquids, antinausea medications, pain meds IV fluids and PPI 2. Hypertension - Blood pressure controlled, home medications continued with dose adjustment as needed 3. Dyslipidemia -Patient is managed on diet 4. Depression with anxiety ?Patient is on Cymbalta as well as alprazolam as needed 5. Tobacco dependence - Counseled on cessation, offered nicotine patch for tobacco cravings 6. DVT prophylaxis - On enoxaparin Inpatient E&M: 39085 Init Hosp L2
[2020-09-16] MEDS: 0.9% Normal Saline 1,000 ML 100 ML IV (12:30)
[2020-09-16 12:32] VITALS: BP 161/92; PULSE 73; RESP 16; TEMP 36.8; O2SAT 98
[2020-09-16 13:36] VITALS: BP 171/91; PULSE 73; RESP 16; TEMP 36.5; O2SAT 100; BMI 21.9
[2020-09-16 14:26] LABS: Bedside Glucose 88 mg/dL (70-110)
[2020-09-16 14:30] VITALS: BMI 22.0
[2020-09-16] MEDS: Gabapentin 300 MG Capsule PO ×2 (14:49→22:49)
[2020-09-16] MEDS: proCHLORPERazine 10 MG/2 ML Vial IV (16:59)
[2020-09-16 17:00] LABS: Bedside Glucose 133 mg/dL (70-110)
[2020-09-16] MEDS: Albuterol 2.5 MG/3 ML VIAL.NEB. INHALATION (19:45)
[2020-09-16 19:50] VITALS: PULSE 92; RESP 16
[2020-09-16 19:55] VITALS: BP 147/88; PULSE 85; RESP 16; TEMP 36.9; O2SAT 96
[2020-09-16] MEDS: MELATONIN 3 MG TABLET PO (22:48)
[2020-09-16] MEDS: DULoxetine Hcl 60 MG Capsule PO (22:49)
[2020-09-16] MEDS: DOXEPIN HCL 50 MG CAPSULE 150 MG PO (22:49)
[2020-09-16] MEDS: Insulin Lispro 100 UNIT/ML INSULN.PEN SC (22:57)
[2020-09-16 23:00] LABS: Bedside Glucose 205 mg/dL (70-110)
[2020-09-17] MEDS: HYDROmorphone 1 MG/ML Syringe IV ×7 (02:36→23:36)
[2020-09-17 02:48] VITALS: BP 161/91; PULSE 107; RESP 16; TEMP 36.8; O2SAT 92
[2020-09-17 05:34] LABS: Absolute Lymphocyte Count 0.47 X10^3/uL (0.83-4.51); Absolute Neutrophil Count 15.2 X10^3/uL (2.0-7.7); Basophil# 0.06 X10^3/uL; Basophil% 0.4 % (0-1); Eosinophil# 0.01 X10^3/uL; Eosinophils% 0.1 % (0-5); Hematocrit 44.7 % (37-47); Lymphocyte # 0.47 X10^3/ul (0.83-4.51); Lymphocyte % 2.8 % (19-41); Mean Corp Hgb Conc 33.6 g/dL (32-36); Mean Corpuscular Hgb 34.6 pg (27.0-32.0); Mean Corpuscular Volume 103.2 fL (81-99); Mean Platelet Vol. 9.9 fl (6.2-12.0); Monocyte# 0.69 X10^3/uL; Monocyte% 4.2 % (0-10); NRBC Flagged by Analyzer 0 % (0-5); Neutrophil # 15.18 X10^3/uL (2.7-7.7); POSITIVE DIFFERENTIAL YES; Platelet Count 167 K/mm3 (150-450); RBC Distribution Width SD 45.7 fl (35.1-43.9); Red Blood Count 4.33 M/mm3 (4.2-5.4); White Blood Count 16.5 K/mm3 (4.4-11.0)
[2020-09-17 05:42] LABS: Differential Indicated SCAN CRITERIA MET
[2020-09-17] MEDS: Gabapentin 300 MG Capsule PO ×3 (05:49→22:11)
[2020-09-17 06:02] LABS: ALB/GLOB Ratio 0.9 RATIO (0.9-2.4); AST(SGOT) 30 U/L (15-37); Alanine Aminotransfer ALT/SGPT 53 U/L (13-56); Alkaline Phosphatase 59 U/L (45-117); Anion Gap 9 (5-15); BUN 4 mg/dL (7-18); BUN/Creat Ratio 5.4 RATIO (10-20); Calcium,Total 8.5 mg/dL (8.5-10.1); Chloride 99 mmol/L (98-107); Creatinine, Serum 0.74 mg/dL (0.55-1.02); EST Glomerular Filtration Rate 90 mL/min (>60); Est Glom Filt Rate - Afr Amer 109 mL/min (>60); Estimated Creatinine Clearance 88.93 ml/min; Globulin 3.5 g/dL (2.2-4.2); Glucose 196 mg/dL (74-106); Lipase 4331 U/L (73-393); Magnesium 0.9 mg/dL (1.6-2.6); Phosphorus 3.7 mg/dL (2.5-4.9); Potassium 4.5 mmol/L (3.5-5.1); Protein, Total 6.5 g/dL (6.4-8.2); Sodium Level 132 mmol/L (136-145)
[2020-09-17] MEDS: Insulin Lispro 100 UNIT/ML INSULN.PEN SC ×4 (06:35→22:11)
[2020-09-17 06:40] LABS: Bedside Glucose 225 mg/dL (70-110)
[2020-09-17] MEDS: Magnesium Sulfate 4gm/100mL 4 GM/100 ML IV.SOLN. IV (06:48)
[2020-09-17 07:20] VITALS: PULSE 88; RESP 21
[2020-09-17] MEDS: Albuterol 2.5 MG/3 ML VIAL.NEB. INHALATION (07:28)
--- NOTE | 2020-09-17 07:49 | PCM.PN.HOSP ---
Patient Problems: Active and Suspected Problems Acute pancreatitis (Acute) Transaminitis (Acute) Abdominal pain (Acute) Reason for Visit: Acute pancreatitis Subjective: Patient is a 45-year-old lady presented with abdominal discomfort with associated nausea and vomiting found to have elevated lipase level consistent with acute pancreatitis Objective: GENERAL: cooperative HEENT: Atraumatic; EYES; Anicteric, Normal Conjunctiva NECK; supple, normal thyroid, RESPIRATORY: Diminished to auscultation CARDIOVASCULAR: Regular S1 S2, GI: Distended, hypoactive bowel sounds : No Renal angle tenderness; EXTREMITIES: No edema, no clubbing, MUSCULOSKELETAL: no muscle waisting NEURO: Awake; no lateralizing signs. SKIN: No Rash PSYCH; Flat affect Vitals/I&O's: Vital Signs Temp Pulse Resp BP Pulse Ox 98.2 F 107 H 16 161/91 H 92 09/17/20 02:48 09/17/20 02:48 09/17/20 02:48 09/17/20 02:48 09/17/20 02:48 Oxygen Delivery Method Room Air Weight: 61.7 kg Body Mass Index (BMI) 21.9 Intake and Output for Last 24 Hours 09/15/20 09/16/20 09/17/20 23:59 23:59 23:59 Intake Total 3390 / 3390 977.5 / 977.5 Output Total 900 / 900 275 / 275 Balance 2490 / 2490 702.5 / 702.5 Laboratory Results 09/16/20 10:00: WBC 7.4, RBC 3.86 L, Hgb 13.6, Hct 39.8, MCV 103.1 H, MCH 35.2 H, MCHC 34.2, RDW Std Deviation 45.2 H, RDW Coeff of Teressa 12.0, Plt Count 186, MPV 9.4, Immature Gran % (Auto) 0.700, Neut % (Auto) 75.1 H, Lymph % (Auto) 15.1 L, [place] % (Auto) 5.4, Eos % (Auto) 3.4, Baso % (Auto) 0.3, Absolute Neuts (auto) 5.6, Absolute Lymphs (auto) 1.12, Nucleated RBC % 0 09/16/20 10:00: Sodium 137, Potassium 3.7, Chloride 100, Carbon Dioxide 30.0, Anion Gap 7, BUN 6 L, Creatinine 0.75, Estim Creat Clear Calc 87.74, Est GFR (MDRD) Af Amer 106, Est GFR (MDRD) Non-Af 88, BUN/Creatinine Ratio 8.0 L, Glucose 174 H, Calcium 10.1, Total Bilirubin 0.60, Direct Bilirubin 0.25, AST 71 H, ALT 76 H, Alkaline Phosphatase 72, Total Protein 6.7, Albumin 3.2, Globulin 3.5, Lipase 1050 H 09/16/20 10:00: Serum , Qual NEGATIVE 09/16/20 14:19: POC Glucose 88 09/16/20 16:49: POC Glucose 133 H 09/16/20 22:44: POC Glucose 205 H 09/17/20 05:10: WBC 16.5 H, RBC 4.33, Hgb 15.0, Hct 44.7, MCV 103.2 H, MCH 34.6 H, MCHC 33.6, RDW Std Deviation 45.7 H, RDW Coeff of Teressa 12.0, Plt Count 167, MPV 9.9, Immature Gran % (Auto) 0.500, Neut % (Auto) 92.0 H, Lymph % (Auto) 2.8 L, [place] % (Auto) 4.2, Eos % (Auto) 0.1, Baso % (Auto) 0.4, Absolute Neuts (auto) 15.2 H, Absolute Lymphs (auto) 0.47 L, Nucleated RBC % 0 09/17/20 05:10: Sodium 132 L, Potassium 4.5, Chloride 99, Carbon Dioxide 24.0, Anion Gap 9, BUN 4 L, Creatinine 0.74, Estim Creat Clear Calc 88.93, Est GFR (MDRD) Af Amer 109, Est GFR (MDRD) Non-Af 90, BUN/Creatinine Ratio 5.4 L, Glucose 196 H, Calcium 8.5, Phosphorus 3.7, Magnesium 0.9 L*, Total Bilirubin 1.10 H, AST 30, ALT 53, Alkaline Phosphatase 59, Total Protein 6.5, Albumin 3.0 L, Globulin 3.5, Albumin/Globulin Ratio 0.9, Lipase 4331 H 09/17/20 06:33: POC Glucose 225 H Current Medications Acetaminophen (Acetaminophen 325 Mg Tablet) 650 mg PO Q6H PRN PRN PRN Reason: Pain Score 1-10/Temp > 100.7 F Al Hydroxide/Mg Hydroxide (Mag Hydrox/Al Hydrox/Simeth 30 Ml Udc) 30 ml PO Q6H PRN PRN PRN Reason: Gastric Burning Albuterol Sulfate (Albuterol 2.5 Mg/3 Ml Vial.Neb.) 2.5 mg INHALATION Q6HWA.RT COUNTS INCLUDE 234 BEDS AT THE [facility] Last Admin: 09/17/20 07:28 Dose: 2.5 mg Documented by: Albuterol Sulfate (Albuterol 2.5 Mg/3 Ml Vial.Neb.) 2.5 mg INHALATION Q2H PRN PRN PRN Reason: Shortness of Breath/Wheezing Alprazolam (Alprazolam 0.25 Mg Tablet) 0.25 mg PO BID PRN PRN PRN Reason: ANXIETY Dextrose (Dextrose 50%-Water 25 Gm/50 Ml Disp.Syrin) 0 gm IV X1 PRN; Protocol PRN Reason: Hypoglycemia Doxepin HCl (Doxepin Hcl 50 Mg Capsule) 150 mg PO QHS COUNTS INCLUDE 234 BEDS AT THE [facility] Last Admin: 09/16/20 22:49 Dose: 150 mg Documented by: Duloxetine HCl (Duloxetine Hcl 60 Mg Capsule) 60 mg PO BID COUNTS INCLUDE 234 BEDS AT THE [facility] Last Admin: 09/16/20 22:49 Dose: 60 mg Documented by: Enoxaparin Sodium (Enoxaparin 40 Mg/0.4 Ml Syringe) 40 mg SC DAILY COUNTS INCLUDE 234 BEDS AT THE [facility] Gabapentin (Gabapentin 300 Mg Capsule) 300 mg PO TID COUNTS INCLUDE 234 BEDS AT THE [facility] Last Admin: 09/17/20 05:49 Dose: 300 mg Documented by: Glucagon (Glucagon 1 Mg/Ml Syringe) 1 mg IM .X1 PRN PRN Reason: Hypoglycemia Guaifenesin (Guaifenesin 10 Ml Udc (200mg/10ml)) 20 ml PO Q4H PRN PRN PRN Reason: COUGH Hydromorphone HCl (Hydromorphone 1 Mg/Ml Syringe) 1 mg IV Q3H PRN PRN PRN Reason: Pain Score 6-10 Last Admin: 09/17/20 05:49 Dose: 1 mg Documented by: Potassium Chloride/Sodium Chloride () 1,000 mls @ 150 mls/hr IV .Q6H40M COUNTS INCLUDE 234 BEDS AT THE [facility] Stop: 09/17/20 22:44 Last Admin: 09/17/20 02:36 Dose: 150 mls/hr Documented by: Magnesium Sulfate () 4 gm in 100 mls @ 25 mls/hr IV X1 ONE Stop: 09/17/20 10:21 Last Admin: 09/17/20 06:48 Dose: 25 mls/hr Documented by: Insulin Human Lispro (Insulin Lispro 100 Unit/Ml Insuln.Pen) 0 unit SC ACHS ABE; Protocol Last Admin: 09/17/20 06:35 Dose: 2 u Documented by: Losartan Potassium (Losartan Potassium 50 Mg Tablet) 50 mg PO DAILY ABE Melatonin (Melatonin 3 Mg Tablet) 3 mg PO QHS PRN PRN PRN Reason: INSOMNIA Last Admin: 09/16/20 22:48 Dose: 3 mg Documented by: Nicotine (Nicotine 14 Mg Patch) 14 mg TD DAILY ABE Nitroglycerin (Nitroglycerin (Inpatient Use) 0.4 Mg Tab.Subl) 0.4 mg SL Q5M PRN PRN Reason: CARDIAC/CHEST PAIN Ondansetron HCl (Ondansetron 4 Mg/2 Ml Vial) 4 mg IV Q8H PRN PRN PRN Reason: NAUSEA/VOMITING Last Admin: 09/16/20 22:48 Dose: 4 mg Documented by: Oxycodone HCl (Oxycodone 5 Mg Tablet) 10 mg PO Q4H PRN PRN PRN Reason: Pain Score 4-5 Promethazine HCl (Promethazine 25 Mg/Ml Syringe) 25 mg IM Q6H PRN PRN PRN Reason: Breakthrough nausea/vomiting Rizatriptan Benzoate (Rizatriptan Benzoate 10 Mg Tablet) 10 mg PO DAILY PRN PRN PRN Reason: MIGRAINE SYMPTOMS Senna/Docusate Sodium (Senna/Docusate Sodium 1 Tablet) 2 tablet PO BID PRN PRN PRN Reason: Constipation Throat Lozenges (Benzocaine/Menthol 1 Lozenge) 1 lozenge MUCOUS MEM Q2H PRN PRN PRN Reason: SORE THROAT Medical Necessity - Tobacco Use Smoking Status: Former smoker Assessment/Plan All Active Problems Acute pancreatitis (Acute) Transaminitis (Acute) Abdominal pain (Acute) Patient is a 45-year-old lady presented with abdominal discomfort with associated nausea and vomiting found to have elevated lipase level consistent with acute pancreatitis 1. Acute on chronic pancreatitis ?Patient denies any recent alcohol use however has history of alcohol induced pancreatitis. Admitted to regular nursing floor for conservative management with clear liquids, antinausea medications, pain meds IV fluids and PPI -09/17/2020; patient symptoms worsened overnight requiring more pain medication with elevation in her lipase level 2. Hypertension - Blood pressure controlled, home medications continued with dose adjustment as needed 3. Dyslipidemia -Patient is managed on diet 4. Depression with anxiety ?Patient is on Cymbalta as well as alprazolam as needed 5. Tobacco dependence - Counseled on cessation, offered nicotine patch for tobacco cravings 6. DVT prophylaxis - On enoxaparin 7. Hypomagnesemia ?Corrected per protocol 8. Alcoholic fatty liver disease ?Monitoring liver function test Inpatient E&M: 46766 Subs Hosp L3
[2020-09-17 09:00] VITALS: BP 175/91; PULSE 97; RESP 18; TEMP 36.7; O2SAT 97
[2020-09-17] MEDS: Enoxaparin 40 MG/0.4 ML Syringe SC (09:11)
[2020-09-17] MEDS: DULoxetine Hcl 60 MG Capsule PO ×2 (09:11→22:11)
[2020-09-17] MEDS: Losartan Potassium 50 MG Tablet PO (09:11)
--- NOTE | 2020-09-17 10:15 | CASEMGMT ---
ROGER LEIJA Assessment: Face to Face with pt for initial transition planning/care coordination assessment. RN LISS introduced self and role at [facility], pt voices understanding and consents to assessment. Pt is A/O x4 and answers all questions appropriately at this time. Pt lying in bed in no distress. Care providers, pharmacy, and demographics verified/updated. Admitting Dx: acute pancreatitis PCP: Susanna Specialists: Neeru sr [facility] Insurance: [employer] Prescription Benefit: yes LW/HPOA: Pt denies having LW or DPOA. LNOK: Theresa Soares, mother; 2 children Living Arrangements: Pt lives with her two children in a single story hourse with 1 step to enter. Pt is I in ADL's. Denies concerns at home. Transportation: Pt drives self. Denies concerns with transportation. DME/HHC/SNF: Pt denies having DME, previous HHC or SNF stays. Pt states no concerns with going home at time of dc. Pt states no further concerns/needs. CM to follow. Advised pt to ask CM if any further question/concerns/needs arise, voices understanding. Pt Goal: Home Plan: Home with family support
[2020-09-17] MEDS: Acetaminophen 325 MG Tablet 650 MG PO ×2 (10:32→17:32)
[2020-09-17 10:37] VITALS: BP 167/98
[2020-09-17 12:10] LABS: Bedside Glucose 193 mg/dL (70-110)
[2020-09-17 13:40] LABS: Magnesium 2.4 mg/dL (1.6-2.6)
[2020-09-17 14:58] VITALS: BP 153/81; PULSE 101; RESP 18; TEMP 36.6; O2SAT 95
[2020-09-17 17:35] LABS: Bedside Glucose 165 mg/dL (70-110)
[2020-09-17 19:51] VITALS: BP 162/62; PULSE 99; RESP 18; TEMP 36.9; O2SAT 99
[2020-09-17] MEDS: Ondansetron 4 MG/2 ML Vial IV (19:53)
--- NOTE | 2020-09-17 19:53 | RAD_ITS ---
STUDY: X-RAY CHEST REASON FOR EXAM: Female, 45 years old. picc placement verification TECHNIQUE: Frontal view COMPARISON: 08/30/2019 FINDINGS: Right-sided PICC line with tip in the proximal SVC. The lungs are expanded. Left basilar atelectasis. Normal size heart. Normal mediastinum and niurka. Normal visualized pulmonary arteries. Normal visualized aortic arch and descending thoracic aorta. Degenerative changes of the thoracic spine. Left clavicular old injury. There is no demonstrated abnormality of the visualized soft tissue structures of the upper abdomen. RAD/CXR for Line Placement IMPRESSION: Left basilar atelectasis. Electronically Signed: Thomas Qiu DO at 20:11 EDT Tel [phone], Service support ,
[2020-09-17] MEDS: DOXEPIN HCL 50 MG CAPSULE 150 MG PO (22:11)
[2020-09-17 22:46] LABS: Bedside Glucose 156 mg/dL (70-110)
[2020-09-17] MEDS: proCHLORPERazine 10 MG/2 ML Vial 5 MG IV (23:36)
[2020-09-18] VITALS (8 sets, daily range): BP systolic 144–158; BP diastolic 80–103; PULSE 68–104; RESP 12–20; TEMP 36.3–36.9; O2SAT 95–99
[2020-09-18] MEDS: HYDROmorphone 1 MG/ML Syringe IV ×6 (02:25→22:43)
--- NOTE | 2020-09-18 05:55 | CT_ITS ---
STUDY: CT ABDOMEN AND PELVIS WITH CONTRAST REASON FOR EXAM: Female, 45 years old. Pancreatitis RADIATION DOSAGE (If Supplied By Facility): CTDIvol = ( 10.91 ) mGy, DLP = ( 475.55 ) mGycm TECHNIQUE: Transaxial images were obtained from the dome of the diaphragm to the symphysis pubis with oral contrast. Oral and amp; IV Gastrografin and amp; 100mL Isovue-300 was administered. Sagittal and coronal images were reconstructed. Individualized dose optimization techniques were used for this CT. COMPARISON: Comparison is made with prior study dated 09/16/2020. FINDINGS: Stable appearance of the bilateral breast prosthesis. New small bilateral pleural effusions more prominent on the left side with bibasilar atelectasis. The visualized portions of the heart are within normal limits. There is decreased attenuation of the liver consistent with steatosis. Stable focal areas of the altered attenuation in the left lobe of the liver as well as the medial aspect of the right lobe of the liver superiorly. Stable heterogeneous appearance of the inferior aspect of the right lobe of the liver. Normal gallbladder and extrahepatic biliary system. Normal spleen. There is diffuse enlargement of the pancreas with clive-pancreatic edema suggesting acute pancreatitis. Cystic changes are seen in the body of the pancreas and uncinate process of the pancreas. This has progressed as compared to prior study. There is thickening of the left pararenal fascia. Small amount of the fluid is now seen in the perihepatic space as well as in the paracolic gutters bilaterally. Increased markings within the mesenteric fat. Fluid is also seen in the pelvis. Normal bilateral adrenal glands. Normal right kidney. Normal left kidney. Normal visualized stomach. Normal small intestine. Normal colon. The appendix is visualized and appears normal. Normal abdominal aorta. Normal inferior vena cava. Normal retroperitoneum. Normal urinary bladder. Normal abdominal wall. Normal osseous structures. CT/Abdomen/Pelvis WITH Contrast IMPRESSION: Progressive changes of acute pancreatitis as described. New small bilateral pleural effusions greater on the left side with bibasilar atelectasis. Electronically Signed: Denzel Quijano MD at 9:10 EDT , Service support ,
[2020-09-18] MEDS: Insulin Lispro 100 UNIT/ML INSULN.PEN SC ×3 (06:40→22:42)
[2020-09-18] MEDS: Gabapentin 300 MG Capsule PO ×3 (06:41→22:43)
[2020-09-18] MEDS: proCHLORPERazine 10 MG/2 ML Vial 5 MG IV ×3 (06:41→20:05)
[2020-09-18 06:51] LABS: Bedside Glucose 151 mg/dL (70-110)
[2020-09-18] MEDS: Albuterol 2.5 MG/3 ML VIAL.NEB. INHALATION ×3 (06:58→18:47)
[2020-09-18 07:06] LABS: Absolute Lymphocyte Count 0.78 X10^3/uL (0.83-4.51); Absolute Neutrophil Count 12.1 X10^3/uL (2.0-7.7); Basophil# 0.06 X10^3/uL; Basophil% 0.4 % (0-1); Eosinophil# 0.17 X10^3/uL; Eosinophils% 1.2 % (0-5); Hematocrit 40.7 % (37-47); Hemoglobin 13.6 g/dL (12.0-15.0); Lymphocyte # 0.78 X10^3/ul (0.83-4.51); Lymphocyte % 5.6 % (19-41); Mean Corp Hgb Conc 33.4 g/dL (32-36); Mean Corpuscular Volume 104.6 fL (81-99); Mean Platelet Vol. 9.9 fl (6.2-12.0); Monocyte# 0.75 X10^3/uL; Monocyte% 5.4 % (0-10); NRBC Flagged by Analyzer 0 % (0-5); Neutrophil # 12.07 X10^3/uL (2.7-7.7); Neutrophil % 86.6 % (47-70); Platelet Count 139 K/mm3 (150-450); RBC Distribution Width CV 12.1 % (11.6-14.6); RBC Distribution Width SD 46.8 fl (35.1-43.9); Red Blood Count 3.89 M/mm3 (4.2-5.4); White Blood Count 13.9 K/mm3 (4.4-11.0)
[2020-09-18 07:30] LABS: ALB/GLOB Ratio 0.7 RATIO (0.9-2.4); AST(SGOT) 21 U/L (15-37); Alanine Aminotransfer ALT/SGPT 34 U/L (13-56); Albumin, Serum 2.5 g/dL (3.2-5.0); Alkaline Phosphatase 49 U/L (45-117); Anion Gap 5 (5-15); BUN 3 mg/dL (7-18); BUN/Creat Ratio 5.3 RATIO (10-20); Chloride 97 mmol/L (98-107); Creatinine, Serum 0.56 mg/dL (0.55-1.02); EST Glomerular Filtration Rate 123 mL/min (>60); Est Glom Filt Rate - Afr Amer 149 mL/min (>60); Estimated Creatinine Clearance 117.51 ml/min; Globulin 3.6 g/dL (2.2-4.2); Glucose 136 mg/dL (74-106); Lipase 886 U/L (73-393); Potassium 3.8 mmol/L (3.5-5.1); Protein, Total 6.1 g/dL (6.4-8.2); Sodium Level 132 mmol/L (136-145)
--- NOTE | 2020-09-18 07:59 | PN_ITS ---
Patient Problems: Active and Suspected Problems Acute pancreatitis (Acute) Transaminitis (Acute) Abdominal pain (Acute) Reason for Visit: Acute pancreatitis Subjective: Patient seen abdominal pain less severe compared to previously. Patient was started on antibiotics depressor results of worsening abdominal pain and elevated WBC count. CT of the abdomen ordered this a.m. for subsequent evaluation Objective: GENERAL: cooperative HEENT: Atraumatic; EYES; Anicteric, Normal Conjunctiva NECK; supple, normal thyroid, RESPIRATORY: Diminished to auscultation CARDIOVASCULAR: Regular S1 S2, GI: Distended, hypoactive bowel sounds : No Renal angle tenderness; EXTREMITIES: No edema, no clubbing, MUSCULOSKELETAL: no muscle waisting NEURO: Awake; no lateralizing signs. SKIN: No Rash PSYCH; Flat affect Vitals/I&O's: Vital Signs Temp Pulse Resp BP Pulse Ox 97.9 F 93 18 158/103 H 98 09/18/20 06:36 09/18/20 06:36 09/18/20 06:36 09/18/20 06:36 09/18/20 06:36 Oxygen Delivery Method Room Air Weight: 61.7 kg Body Mass Index (BMI) 21.9 Intake and Output for Last 24 Hours 09/16/20 09/17/20 09/18/20 23:59 23:59 23:59 Intake Total 3390 / 3390 4500.0 / 4500.0 300 / 300 Output Total 900 / 900 275 / 275 Balance 2490 / 2490 4225.0 / 4225.0 300 / 300 Laboratory Results 09/17/20 11:52: POC Glucose 193 H 09/17/20 13:08: Magnesium 2.4 09/17/20 17:27: POC Glucose 165 H 09/17/20 22:10: POC Glucose 156 H 09/18/20 06:00: WBC 13.9 H, RBC 3.89 L, Hgb 13.6, Hct 40.7, MCV 104.6 H, MCH 35.0 H, MCHC 33.4, RDW Std Deviation 46.8 H, RDW Coeff of Teressa 12.1, Plt Count 139 L, MPV 9.9, Immature Gran % (Auto) 0.800, Neut % (Auto) 86.6 H, Lymph % (Auto) 5.6 L, [place] % (Auto) 5.4, Eos % (Auto) 1.2, Baso % (Auto) 0.4, Absolute Neuts (auto) 12.1 H, Absolute Lymphs (auto) 0.78 L, Nucleated RBC % 0 09/18/20 06:00: Sodium 132 L, Potassium 3.8, Chloride 97 L, Carbon Dioxide 30.0, Anion Gap 5, BUN 3 L, Creatinine 0.56, Estim Creat Clear Calc 117.51, Est GFR (MDRD) Af Amer 149, Est GFR (MDRD) Non-Af 123, BUN/Creatinine Ratio 5.3 L, Glucose 136 H, Calcium 8.0 L, Total Bilirubin 1.70 H, AST 21, ALT 34, Alkaline Phosphatase 49, Total Protein 6.1 L, Albumin 2.5 L, Globulin 3.6, Albumin/Globulin Ratio 0.7 L, Lipase 886 H 09/18/20 06:39: POC Glucose 151 H Current Medications Acetaminophen (Acetaminophen 325 Mg Tablet) 650 mg PO Q6H PRN PRN PRN Reason: Pain Score 1-10/Temp > 100.7 F Last Admin: 09/17/20 17:32 Dose: 650 mg Documented by: Al Hydroxide/Mg Hydroxide (Mag Hydrox/Al Hydrox/Simeth 30 Ml Udc) 30 ml PO Q6H PRN PRN PRN Reason: Gastric Burning Albuterol Sulfate (Albuterol 2.5 Mg/3 Ml Vial.Neb.) 2.5 mg INHALATION Q6HWA.RT [facility] Last Admin: 09/18/20 06:58 Dose: 2.5 mg Documented by: Albuterol Sulfate (Albuterol 2.5 Mg/3 Ml Vial.Neb.) 2.5 mg INHALATION Q2H PRN PRN PRN Reason: Shortness of Breath/Wheezing Alprazolam (Alprazolam 0.25 Mg Tablet) 0.25 mg PO BID PRN PRN PRN Reason: ANXIETY Dextrose (Dextrose 50%-Water 25 Gm/50 Ml Disp.Syrin) 0 gm IV X1 PRN; Protocol PRN Reason: Hypoglycemia Doxepin HCl (Doxepin Hcl 50 Mg Capsule) 150 mg PO QHS [facility] Last Admin: 09/17/20 22:11 Dose: 150 mg Documented by: Duloxetine HCl (Duloxetine Hcl 60 Mg Capsule) 60 mg PO BID [facility] Last Admin: 09/17/20 22:11 Dose: 60 mg Documented by: Enoxaparin Sodium (Enoxaparin 40 Mg/0.4 Ml Syringe) 40 mg SC DAILY [facility] Last Admin: 09/17/20 09:11 Dose: 40 mg Documented by: Gabapentin (Gabapentin 300 Mg Capsule) 300 mg PO TID [facility] Last Admin: 09/18/20 06:41 Dose: 300 mg Documented by: Glucagon (Glucagon 1 Mg/Ml Syringe) 1 mg IM .X1 PRN PRN Reason: Hypoglycemia Guaifenesin (Guaifenesin 10 Ml Udc (200mg/10ml)) 20 ml PO Q4H PRN PRN PRN Reason: COUGH Hydromorphone HCl (Hydromorphone 1 Mg/Ml Syringe) 1 mg IV Q3H PRN PRN PRN Reason: Pain Score 6-10 Last Admin: 09/18/20 06:41 Dose: 1 mg Documented by: Ertapenem 1 gm/ Sodium (Chloride) 60 mls @ 100 mls/hr IV Q24 [facility] Insulin Human Lispro (Insulin Lispro 100 Unit/Ml Insuln.Pen) 0 unit SC [facility]; Protocol Last Admin: 09/18/20 06:40 Dose: 1 u Documented by: Losartan Potassium (Losartan Potassium 50 Mg Tablet) 50 mg PO DAILY [facility] Last Admin: 09/17/20 09:11 Dose: 50 mg Documented by: Melatonin (Melatonin 3 Mg Tablet) 3 mg PO QHS PRN PRN PRN Reason: INSOMNIA Last Admin: 09/16/20 22:48 Dose: 3 mg Documented by: Nicotine (Nicotine 14 Mg Patch) 14 mg TD DAILY [facility] Last Admin: 09/17/20 09:11 Dose: Not Given Documented by: Nitroglycerin (Nitroglycerin (Inpatient Use) 0.4 Mg Tab.Subl) 0.4 mg SL Q5M PRN PRN Reason: CARDIAC/CHEST PAIN Ondansetron HCl (Ondansetron 4 Mg/2 Ml Vial) 4 mg IV Q8H PRN PRN PRN Reason: NAUSEA/VOMITING Last Admin: 09/17/20 19:53 Dose: 4 mg Documented by: Oxycodone HCl (Oxycodone 5 Mg Tablet) 10 mg PO Q4H PRN PRN PRN Reason: Pain Score 4-5 Prochlorperazine Edisylate (Prochlorperazine 10 Mg/2 Ml Vial) 5 mg IV Q4H PRN PRN PRN Reason: NAUSEA/VOMITING Last Admin: 09/18/20 06:41 Dose: 5 mg Documented by: Rizatriptan Benzoate (Rizatriptan Benzoate 10 Mg Tablet) 10 mg PO DAILY PRN PRN PRN Reason: MIGRAINE SYMPTOMS Senna/Docusate Sodium (Senna/Docusate Sodium 1 Tablet) 2 tablet PO BID PRN PRN PRN Reason: Constipation Throat Lozenges (Benzocaine/Menthol 1 Lozenge) 1 lozenge MUCOUS MEM Q2H PRN PRN PRN Reason: SORE THROAT STROKE Vital Signs/Narrative: Vital Signs Temp Pulse Resp BP Pulse Ox 09/18/20 06:36 97.9 F 93 18 158/103 H 98 Medical Necessity - Tobacco Use Smoking Status: Former smoker Assessment/Plan All Active Problems Acute pancreatitis (Acute) Transaminitis (Acute) Abdominal pain (Acute) Patient is a 45-year-old lady presented with abdominal discomfort with associated nausea and vomiting found to have elevated lipase level consistent with acute pancreatitis 1. Acute on chronic pancreatitis ?Patient denies any recent alcohol use however has history of alcohol induced pancreatitis. Admitted to regular nursing floor for conservative management with clear liquids, antinausea medications, pain meds IV fluids and PPI -09/17/2020; patient symptoms worsened overnight requiring more pain medication with elevation in her lipase level -09/18/2020 patient seen abdominal pain less severe compared to previously. Patient was started on antibiotics depressor results of worsening abdominal pain and elevated WBC count. CT of the abdomen ordered this a.m. for subsequent evaluation 2. Hypertension - Blood pressure controlled, home medications continued with dose adjustment as needed 3. Dyslipidemia -Patient is managed on diet 4. Depression with anxiety ?Patient is on Cymbalta as well as alprazolam as needed 5. Tobacco dependence - Counseled on cessation, offered nicotine patch for tobacco cravings 6. DVT prophylaxis - On enoxaparin 7. Hypomagnesemia ?Corrected per protocol 8. Alcoholic fatty liver disease ?Monitoring liver function test Inpatient E&M: [id number] [facility] L[facility]
--- NOTE | 2020-09-18 09:25 | CASEMGMT ---
Pt screened with [facility] Palliative Care Tool due to Strata 3, pt did not meet criteria.
[2020-09-18] MEDS: Ondansetron 4 MG/2 ML Vial IV ×2 (09:49→17:22)
[2020-09-18] MEDS: DULoxetine Hcl 60 MG Capsule PO ×2 (09:56→22:42)
[2020-09-18] MEDS: Losartan Potassium 50 MG Tablet PO (09:56)
[2020-09-18] MEDS: Enoxaparin 40 MG/0.4 ML Syringe SC (09:57)
--- NOTE | 2020-09-18 10:06 | NURSING ---
This nurse went to give lovenox injection into her Rt qaud. Pt immediately verbalized it was painful, burning, aching to the point it made her nauseated thought she was going to vomit. After needle of lovenox take out of stomach/after injecting medicine, this nurse noticed stomach looked bigger and looked like it had a spasm. Also noticed sm raised area where injection site was along with tiny amt of drk red blood that came out. Pt complained of pain at injection site several minutes after the injection. Pt had lovenox yesterday and It did not hurt like that.
[2020-09-18 11:50] LABS: Bedside Glucose 131 mg/dL (70-110)
[2020-09-18 17:40] LABS: Bedside Glucose 164 mg/dL (70-110)
[2020-09-18] MEDS: oxyCODONE 5 MG Tablet 10 MG PO (20:05)
[2020-09-18 22:40] LABS: Bedside Glucose 157 mg/dL (70-110)
[2020-09-18] MEDS: DOXEPIN HCL 50 MG CAPSULE 150 MG PO (22:42)
[2020-09-18] MEDS: Senna/Docusate Sodium 1 Tablet 2 TABLET PO (22:43)
[2020-09-18] MEDS: MELATONIN 3 MG TABLET PO (22:44)
[2020-09-19 02:50] VITALS: BP 123/64; PULSE 101; RESP 18; TEMP 36.6; O2SAT 92
[2020-09-19] MEDS: HYDROmorphone 1 MG/ML Syringe IV (02:53)
[2020-09-19] MEDS: Ondansetron 4 MG/2 ML Vial IV (02:53)
[2020-09-19] MEDS: oxyCODONE 5 MG Tablet 10 MG PO ×4 (06:34→21:43)
[2020-09-19] MEDS: Senna/Docusate Sodium 1 Tablet 2 TABLET PO (06:35)
[2020-09-19] MEDS: proCHLORPERazine 10 MG/2 ML Vial 5 MG IV (06:35)
[2020-09-19] MEDS: Gabapentin 300 MG Capsule PO ×3 (06:36→21:43)
[2020-09-19 06:37] LABS: Absolute Neutrophil Count 7.6 X10^3/uL (2.0-7.7); Basophil# 0.04 X10^3/uL; Basophil% 0.4 % (0-1); Eosinophil# 0.21 X10^3/uL; Eosinophils% 2.1 % (0-5); Hematocrit 36.7 % (37-47); Hemoglobin 12.2 g/dL (12.0-15.0); Lymphocyte % 12.2 % (19-41); Mean Corp Hgb Conc 33.2 g/dL (32-36); Mean Corpuscular Hgb 34.9 pg (27.0-32.0); Mean Corpuscular Volume 104.9 fL (81-99); Mean Platelet Vol. 9.8 fl (6.2-12.0); Monocyte# 0.67 X10^3/uL; Monocyte% 6.8 % (0-10); NRBC Flagged by Analyzer 0 % (0-5); Neutrophil # 7.61 X10^3/uL (2.7-7.7); Neutrophil % 77.7 % (47-70); Platelet Count 148 K/mm3 (150-450); RBC Distribution Width SD 46.1 fl (35.1-43.9); White Blood Count 9.8 K/mm3 (4.4-11.0)
[2020-09-19 06:42] VITALS: PULSE 84; RESP 18
[2020-09-19] MEDS: Albuterol 2.5 MG/3 ML VIAL.NEB. INHALATION ×3 (06:42→19:07)
[2020-09-19 07:12] LABS: ALB/GLOB Ratio 0.6 RATIO (0.9-2.4); AST(SGOT) 21 U/L (15-37); Alanine Aminotransfer ALT/SGPT 28 U/L (13-56); Albumin, Serum 2.3 g/dL (3.2-5.0); Alkaline Phosphatase 48 U/L (45-117); Anion Gap 5 (5-15); BUN 5 mg/dL (7-18); BUN/Creat Ratio 8.8 RATIO (10-20); Calcium,Total 8.2 mg/dL (8.5-10.1); Chloride 98 mmol/L (98-107); Creatinine, Serum 0.57 mg/dL (0.55-1.02); EST Glomerular Filtration Rate 121 mL/min (>60); Est Glom Filt Rate - Afr Amer 147 mL/min (>60); Estimated Creatinine Clearance 115.45 ml/min; Globulin 3.7 g/dL (2.2-4.2); Glucose 113 mg/dL (74-106); Lipase 493 U/L (73-393); Potassium 3.7 mmol/L (3.5-5.1); Sodium Level 133 mmol/L (136-145)
--- NOTE | 2020-09-19 07:26 | PN_ITS ---
Patient Problems: Active and Suspected Problems Acute pancreatitis (Acute) Transaminitis (Acute) Abdominal pain (Acute) Reason for Visit: Acute pancreatitis Subjective: Patient seen lipase levels trending now however still has some pain did tolerate clear liquids. Objective: GENERAL: cooperative HEENT: Atraumatic; EYES; Anicteric, Normal Conjunctiva NECK; supple, normal thyroid, RESPIRATORY: Diminished to auscultation CARDIOVASCULAR: Regular S1 S2, GI: Distended, hypoactive bowel sounds : No Renal angle tenderness; EXTREMITIES: No edema, no clubbing, MUSCULOSKELETAL: no muscle waisting NEURO: Awake; no lateralizing signs. SKIN: No Rash PSYCH; Flat affect Vitals/I&O's: Vital Signs Temp Pulse Resp BP Pulse Ox 97.8 F 101 H 18 123/64 H 92 09/19/20 02:50 09/19/20 02:50 09/19/20 02:50 09/19/20 02:50 09/19/20 02:50 Oxygen Delivery Method Room Air Weight: 61.7 kg Body Mass Index (BMI) 21.9 Intake and Output for Last 24 Hours 09/17/20 09/18/20 09/19/20 23:59 23:59 23:59 Intake Total 4500.0 / 4500.0 1010 / 1010 500 / 500 Output Total 275 / 275 25 / 25 Balance 4225.0 / 4225.0 985 / 985 500 / 500 Laboratory Results 09/18/20 06:00: Sodium 132 L, Potassium 3.8, Chloride 97 L, Carbon Dioxide 30.0, Anion Gap 5, BUN 3 L, Creatinine 0.56, Estim Creat Clear Calc 117.51, Est GFR (MDRD) Af Amer 149, Est GFR (MDRD) Non-Af 123, BUN/Creatinine Ratio 5.3 L, Glucose 136 H, Calcium 8.0 L, Total Bilirubin 1.70 H, AST 21, ALT 34, Alkaline Phosphatase 49, Total Protein 6.1 L, Albumin 2.5 L, Globulin 3.6, Albumin/Globulin Ratio 0.7 L, Lipase 886 H 09/18/20 11:30: POC Glucose 131 H 09/18/20 17:27: POC Glucose 164 H 09/18/20 22:28: POC Glucose 157 H 09/19/20 06:10: WBC 9.8, RBC 3.50 L, Hgb 12.2, Hct 36.7 L, MCV 104.9 H, MCH 34.9 H, MCHC 33.2, RDW Std Deviation 46.1 H, RDW Coeff of Teressa 12.0, Plt Count 148 L, MPV 9.8, Immature Gran % (Auto) 0.800, Neut % (Auto) 77.7 H, Lymph % (Auto) 12.2 L, [place] % (Auto) 6.8, Eos % (Auto) 2.1, Baso % (Auto) 0.4, Absolute Neuts (auto) 7.6, Absolute Lymphs (auto) 1.20, Nucleated RBC % 0 09/19/20 06:10: Sodium 133 L, Potassium 3.7, Chloride 98, Carbon Dioxide 30.0, Anion Gap 5, BUN 5 L, Creatinine 0.57, Estim Creat Clear Calc 115.45, Est GFR (MDRD) Af Amer 147, Est GFR (MDRD) Non-Af 121, BUN/Creatinine Ratio 8.8 L, Gluc ose 113 H, Calcium 8.2 L, Total Bilirubin 1.70 H, AST 21, ALT 28, Alkaline Phosphatase 48, Total Protein 6.0 L, Albumin 2.3 L, Globulin 3.7, Albumin/Globulin Ratio 0.6 L, Lipase 493 H Current Medications Acetaminophen (Acetaminophen 325 Mg Tablet) 650 mg PO Q6H PRN PRN PRN Reason: Pain Score 1-10/Temp > 100.7 F Last Admin: 09/17/20 17:32 Dose: 650 mg Documented by: Al Hydroxide/Mg Hydroxide (Mag Hydrox/Al Hydrox/Simeth 30 Ml Udc) 30 ml PO Q6H PRN PRN PRN Reason: Gastric Burning Albuterol Sulfate (Albuterol 2.5 Mg/3 Ml Vial.Neb.) 2.5 mg INHALATION Q6HWA.RT [facility] Last Admin: 09/18/20 18:47 Dose: 2.5 mg Documented by: Albuterol Sulfate (Albuterol 2.5 Mg/3 Ml Vial.Neb.) 2.5 mg INHALATION Q2H PRN PRN PRN Reason: Shortness of Breath/Wheezing Alprazolam (Alprazolam 0.25 Mg Tablet) 0.25 mg PO BID PRN PRN PRN Reason: ANXIETY Dextrose (Dextrose 50%-Water 25 Gm/50 Ml Disp.Syrin) 0 gm IV X1 PRN; Protocol PRN Reason: Hypoglycemia Doxepin HCl (Doxepin Hcl 50 Mg Capsule) 150 mg PO QHS [facility] Last Admin: 09/18/20 22:42 Dose: 150 mg Documented by: Duloxetine HCl (Duloxetine Hcl 60 Mg Capsule) 60 mg PO BID [facility] Last Admin: 09/18/20 22:42 Dose: 60 mg Documented by: Gabapentin (Gabapentin 300 Mg Capsule) 300 mg PO TID [facility] Last Admin: 09/19/20 06:36 Dose: 300 mg Documented by: Glucagon (Glucagon 1 Mg/Ml Syringe) 1 mg IM .X1 PRN PRN Reason: Hypoglycemia Guaifenesin (Guaifenesin 10 Ml Udc (200mg/10ml)) 20 ml PO Q4H PRN PRN PRN Reason: COUGH Heparin Sodium (Beef Lung) (Heparin Pf Lock 10 Units/Ml 50 Units/5 Ml Syringe) 50 units IV UD PRN PRN Reason: PICC Line Heparin Flush Hydromorphone HCl (Hydromorphone 1 Mg/Ml Syringe) 1 mg IV Q3H PRN PRN PRN Reason: Pain Score 6-10 Last Admin: 09/19/20 02:53 Dose: 1 mg Documented by: Ertapenem 1 gm/ Sodium (Chloride) 60 mls @ 100 mls/hr IV Q24 [facility] Last Infusion: 09/18/20 11:20 Dose: Infused Documented by: Insulin Human Lispro (Insulin Lispro 100 Unit/Ml Insuln.Pen) 0 unit SC ACHS [facility]; Protocol Last Admin: 09/19/20 06:36 Dose: Not Given Documented by: Losartan Potassium (Losartan Potassium 50 Mg Tablet) 50 mg PO DAILY [facility] Last Admin: 09/18/20 09:56 Dose: 50 mg Documented by: Melatonin (Melatonin 3 Mg Tablet) 3 mg PO QHS PRN PRN PRN Reason: INSOMNIA Last Admin: 09/18/20 22:44 Dose: 3 mg Documented by: Nicotine (Nicotine 14 Mg Patch) 14 mg TD DAILY [facility] Last Admin: 09/18/20 09:57 Dose: Not Given Documented by: Nitroglycerin (Nitroglycerin (Inpatient Use) 0.4 Mg Tab.Subl) 0.4 mg SL Q5M PRN PRN Reason: CARDIAC/CHEST PAIN Ondansetron HCl (Ondansetron 4 Mg/2 Ml Vial) 4 mg IV Q8H PRN PRN PRN Reason: NAUSEA/VOMITING Last Admin: 09/19/20 02:53 Dose: 4 mg Documented by: Oxycodone HCl (Oxycodone 5 Mg Tablet) 10 mg PO Q4H PRN PRN PRN Reason: Pain Score 4-5 Last Admin: 09/19/20 06:34 Dose: 10 mg Documented by: Prochlorperazine Edisylate (Prochlorperazine 10 Mg/2 Ml Vial) 5 mg IV Q4H PRN PRN PRN Reason: NAUSEA/VOMITING Last Admin: 09/19/20 06:35 Dose: 5 mg Documented by: Rizatriptan Benzoate (Rizatriptan Benzoate 10 Mg Tablet) 10 mg PO DAILY PRN PRN PRN Reason: MIGRAINE SYMPTOMS Senna/Docusate Sodium (Senna/Docusate Sodium 1 Tablet) 2 tablet PO BID PRN PRN PRN Reason: Constipation Last Admin: 09/19/20 06:35 Dose: 2 tablet Documented by: Sodium Chloride (0.9% Saline Lock 10 Ml Syringe) 10 - 40 ml IV UD PRN PRN Reason: Open End PICC Flush Sodium Chloride (0.9 % Nacl (Sterile) Posiflush 10 Ml) 10 - 40 ml IV UD PRN PRN Reason: Port access or dressing change Throat Lozenges (Benzocaine/Menthol 1 Lozenge) 1 lozenge MUCOUS MEM Q2H PRN PRN PRN Reason: SORE THROAT Medical Necessity - Tobacco Use Smoking Status: Former smoker Assessment/Plan All Active Problems Acute pancreatitis (Acute) Transaminitis (Acute) Abdominal pain (Acute) Patient is a 45-year-old lady presented with abdominal discomfort with associated nausea and vomiting found to have elevated lipase level consistent with acute pancreatitis 1. Acute on chronic pancreatitis ?Patient denies any recent alcohol use however has history of alcohol induced pancreatitis. Admitted to regular nursing floor for conservative management with clear liquids, antinausea medications, pain meds IV fluids and PPI -09/17/2020; patient symptoms worsened overnight requiring more pain medication with elevation in her lipase level -09/18/2020 patient seen abdominal pain less severe compared to previously. Patient was started on antibiotics depressor results of worsening abdominal pain and elevated WBC count. CT of the abdomen ordered this a.m. for subsequent evaluation -09/19/2020 Patient seen lipase levels trending now however still has some pain did tolerate clear liquids. 2. Hypertension - Blood pressure controlled, home medications continued with dose adjustment as needed 3. Dyslipidemia -Patient is managed on diet 4. Depression with anxiety ?Patient is on Cymbalta as well as alprazolam as needed 5. Tobacco dependence - Counseled on cessation, offered nicotine patch for tobacco cravings 6. DVT prophylaxis - On enoxaparin 7. Hypomagnesemia ?Corrected per protocol 8. Alcoholic fatty liver disease ?Monitoring liver function test Inpatient E&M: [id number] Subs Hosp L2
--- NOTE | 2020-09-19 08:34 | NURSING ---
Pt's blood sugar was 113 per daily lab report.
--- NOTE | 2020-09-19 08:36 | NURSING ---
Pt walking in [place] at this time. This Morning during rounds, this nurse encouraged pt to ambulate in the [place].
[2020-09-19 09:00] LABS: Bedside Glucose 125 mg/dL (70-110)
[2020-09-19 09:21] VITALS: BP 108/61; PULSE 101; RESP 16; TEMP 36.9; O2SAT 99
[2020-09-19] MEDS: Losartan Potassium 50 MG Tablet PO (09:22)
[2020-09-19] MEDS: DULoxetine Hcl 60 MG Capsule PO ×2 (09:22→21:43)
[2020-09-19 11:55] LABS: Bedside Glucose 122 mg/dL (70-110)
[2020-09-19 13:00] VITALS: PULSE 87; RESP 16
--- NOTE | 2020-09-19 13:43 | NURSING ---
Walking in [place] at this time.
[2020-09-19 17:30] LABS: Bedside Glucose 123 mg/dL (70-110)
[2020-09-19 18:35] VITALS: PULSE 77; RESP 18; O2SAT 96
--- NOTE | 2020-09-19 19:44 | NURSING ---
Pt up ambulating in halls at this time
[2020-09-19 21:19] VITALS: BP 99/62; PULSE 99; RESP 16; TEMP 36.8; O2SAT 99
[2020-09-19 21:35] LABS: Bedside Glucose 204 mg/dL (70-110)
[2020-09-19] MEDS: 0.9% Saline Lock 10 ML Syringe IV (21:43)
[2020-09-19] MEDS: MELATONIN 3 MG TABLET PO (21:43)
[2020-09-19] MEDS: Insulin Lispro 100 UNIT/ML INSULN.PEN SC (21:44)
[2020-09-19] MEDS: DOXEPIN HCL 50 MG CAPSULE 150 MG PO (23:10)
[2020-09-20 02:20] VITALS: BP 102/60; PULSE 99; RESP 15; TEMP 37.1; O2SAT 93
[2020-09-20] MEDS: Gabapentin 300 MG Capsule PO (06:49)
[2020-09-20 06:55] LABS: Bedside Glucose 136 mg/dL (70-110)
[2020-09-20] MEDS: Albuterol 2.5 MG/3 ML VIAL.NEB. INHALATION (07:02)
[2020-09-20 07:04] VITALS: PULSE 88; RESP 16
--- NOTE | 2020-09-20 07:27 | DCINST_ITS ---
- Discharge Diagnoses Current Active Problems: Current Active and Chronic Problems Acute pancreatitis (Acute) Diabetes (Chronic) HTN (hypertension) (Chronic) HLD (hyperlipidemia) (Chronic) Alcoholism (Chronic) Nicotine abuse (Chronic) Transaminitis (Acute) Abdominal pain (Acute) You will use the following diet at home:: No restrictions Allergies/Adverse Reactions: Allergies azithromycin [From Zithromax] Adverse Reaction (Verified 09/16/20 09:45) Diarrhea codeine Adverse Reaction (Verified 09/16/20 09:45) Nausea promethazine [From Phenergan] Adverse Reaction (Verified 09/16/20 09:45) Vomiting Medications to take at Discharge Duloxetine Hcl [Cymbalta] 60 mg PO DAILY 04/30/18 Doxepin HCl 150 mg PO QHS 08/30/19 Gabapentin [Neurontin] 300 mg PO TID 08/30/19 Acetaminophen [Tylenol Tablet] 650 mg PO Q6H PRN PRN tab 09/02/19 ALPRAZolam [Xanax] 1 - 2 tablet PO BID PRN PRN 09/16/20 Albuterol Sulfate [Proair Respiclick] 90 mcg IH BID PRN 09/16/20 Eletriptan Hydrobromide [Relpax] 40 mg PO DAILY PRN 09/16/20 Losartan Potassium [Cozaar] 50 mg PO DAILY 09/16/20 Meloxicam [Mobic] 15 mg PO DAILY PRN 09/16/20 Nicotine [Nicoderm] 14 mg TRANSDERM. DAILY 09/16/20 Ondansetron [Zofran Odt] 4 mg PO Q8H PRN PRN 09/16/20 metFORMIN HCl [Glucophage] 500 mg PO BIDCM 09/16/20 proCHLORPERazine tablet [Compazine tablet] 10 mg PO Q6H PRN PRN 09/16/20 Primary Care Physician: Valerie Mullins MD [Primary Care Provider] - Please follow up with your Primary Care Physician in: in 1 week Test Results: Test results from this visit will be discussed in further detail at your follow- up appointment, if applicable. Proposed Discharge Date: 09/20/20
--- NOTE | 2020-09-20 09:22 | PCM.DC.SUM ---
Discharge Date and Diagnosis - Problem List Patient Problems: Active and Suspected Problems Acute pancreatitis (Acute) Transaminitis (Acute) Abdominal pain (Acute) Date of Admission: 09/16/20 Date of Discharge: 09/20/20 - Primary Discharge Diagnosis Acute Problems: Active Problems Acute pancreatitis (Acute) Transaminitis (Acute) Abdominal pain (Acute) - Secondary Discharge Diagnosis Chronic Problems: Chronic Problems Diabetes (Chronic) HTN (hypertension) (Chronic) HLD (hyperlipidemia) (Chronic) Alcoholism (Chronic) Nicotine abuse (Chronic) Hospital Course and Treatment Imaging Results: Clinical Impression(s) from Imaging Studies Abdomen/Pelvis CT 09/16/20 09:54 IMPRESSION: Hepatomegaly with diffuse fatty infiltration of the liver. At this time, there are several geographic areas of altered density within the right and left lobes of the liver as described. Correlation with ultrasound is recommended. Diffuse enlargement of the head and uncinate process of the pancreas with increased markings in the surrounding fat suggestive of acute pancreatitis. Electronically Signed: Denzel Quijano MD at 11:30 EDT , Service support , Gallbladder Ultrasound 09/16/20 11:35 IMPRESSION: Diffuse fatty infiltration of the liver. No focal amount is seen. Heterogeneous enlargement of the pancreas. Electronically Signed: Denzel Quijano MD at 13:04 EDT , Service support , Chest X-Ray 09/17/20 19:53 IMPRESSION: Left basilar atelectasis. Electronically Signed: Thomas Qiu DO at 20:11 EDT Tel [phone], Service support , Abdomen/Pelvis CT 09/18/20 05:55 IMPRESSION: Progressive changes of acute pancreatitis as described. New small bilateral pleural effusions greater on the left side with bibasilar atelectasis. Electronically Signed: Denzel Quijano MD at 9:10 EDT , Service support , Operations: None Summary of Care Provided: Patient is a 45-year-old lady presented with abdominal discomfort with associated nausea and vomiting found to have elevated lipase level consistent with acute pancreatitis 1. Acute on chronic pancreatitis ?Patient denies any recent alcohol use however has history of alcohol induced pancreatitis. Admitted to regular nursing floor for conservative management with clear liquids, antinausea medications, pain meds IV fluids and PPI -09/17/2020; patient symptoms worsened overnight requiring more pain medication with elevation in her lipase level -09/18/2020 patient seen abdominal pain less severe compared to previously. Patient was started on antibiotics depressor results of worsening abdominal pain and elevated WBC count. CT of the abdomen ordered this a.m. for subsequent evaluation -09/19/2020 Patient seen lipase levels trending now however still has some pain did tolerate clear liquids. ?09/20/2020. Patient condition stable pain tolerable plan is for patient to be discharged home after her diet has been advanced 2. Hypertension - Blood pressure controlled, home medications continued with dose adjustment as needed 3. Dyslipidemia -Patient is managed on diet 4. Depression with anxiety ?Patient is on Cymbalta as well as alprazolam as needed 5. Tobacco dependence - Counseled on cessation, offered nicotine patch for tobacco cravings 6. DVT prophylaxis - On enoxaparin 7. Hypomagnesemia ?Corrected per protocol 8. Alcoholic fatty liver disease ?Monitoring liver function test Patient Problems: Active and Suspected Problems Acute pancreatitis (Acute) Transaminitis (Acute) Abdominal pain (Acute) Objective: GENERAL: cooperative HEENT: Atraumatic; EYES; Anicteric, Normal Conjunctiva NECK; supple, normal thyroid, RESPIRATORY: Diminished to auscultation CARDIOVASCULAR: Regular S1 S2, GI: Slightly distended,normoactive bowel sounds : No Renal angle tenderness; EXTREMITIES: No edema, no clubbing, MUSCULOSKELETAL: no muscle waisting NEURO: Awake; no lateralizing signs. SKIN: No Rash PSYCH; Flat affect - Physical Exam Vitals/I&O's: Vital Signs Temp Pulse Resp BP Pulse Ox 98.7 F 88 16 102/60 93 09/20/20 02:20 09/20/20 07:04 09/20/20 07:04 09/20/20 02:20 09/20/20 02:20 Oxygen Delivery Method Room Air Weight: 61.7 kg Body Mass Index (BMI) 21.9 Intake and Output for Last 24 Hours 09/18/20 09/19/20 09/20/20 23:59 23:59 23:59 Intake Total 1010 / 1010 1160 / 1810 1050 / 1050 Output Total Balance 985 / 985 1160 / 1810 1050 / 1050 Laboratory Results 09/19/20 11:52: POC Glucose 122 H 09/19/20 17:15: POC Glucose 123 H 09/19/20 21:29: POC Glucose 204 H 09/20/20 06:48: POC Glucose 136 H Current Medications Acetaminophen (Acetaminophen 325 Mg Tablet) 650 mg PO Q6H PRN PRN PRN Reason: Pain Score 1-10/Temp > 100.7 F Last Admin: 09/17/20 17:32 Dose: 650 mg Documented by: Al Hydroxide/Mg Hydroxide (Mag Hydrox/Al Hydrox/Simeth 30 Ml Udc) 30 ml PO Q6H PRN PRN PRN Reason: Gastric Burning Albuterol Sulfate (Albuterol 2.5 Mg/3 Ml Vial.Neb.) 2.5 mg INHALATION Q6HWA.RT [facility] Last Admin: 09/20/20 07:02 Dose: 2.5 mg Documented by: Albuterol Sulfate (Albuterol 2.5 Mg/3 Ml Vial.Neb.) 2.5 mg INHALATION Q2H PRN PRN PRN Reason: Shortness of Breath/Wheezing Last Admin: 09/19/20 06:42 Dose: 2.5 mg Documented by: Alprazolam (Alprazolam 0.25 Mg Tablet) 0.25 mg PO BID PRN PRN PRN Reason: ANXIETY Dextrose (Dextrose 50%-Water 25 Gm/50 Ml Disp.Syrin) 0 gm IV X1 PRN; Protocol PRN Reason: Hypoglycemia Doxepin HCl (Doxepin Hcl 50 Mg Capsule) 150 mg PO QHS [facility] Last Admin: 09/19/20 23:10 Dose: 150 mg Documented by: Duloxetine HCl (Duloxetine Hcl 60 Mg Capsule) 60 mg PO BID [facility] Last Admin: 09/19/20 21:43 Dose: 60 mg Documented by: Gabapentin (Gabapentin 300 Mg Capsule) 300 mg PO TID [facility] Last Admin: 09/20/20 06:49 Dose: 300 mg Documented by: Glucagon (Glucagon 1 Mg/Ml Syringe) 1 mg IM .X1 PRN PRN Reason: Hypoglycemia Guaifenesin (Guaifenesin 10 Ml Udc (200mg/10ml)) 20 ml PO Q4H PRN PRN PRN Reason: COUGH Heparin Sodium (Beef Lung) (Heparin Pf Lock 10 Units/Ml 50 Units/5 Ml Syringe) 50 units IV UD PRN PRN Reason: PICC Line Heparin Flush Hydromorphone HCl (Hydromorphone 1 Mg/Ml Syringe) 1 mg IV Q3H PRN PRN PRN Reason: Pain Score 6-10 Last Admin: 09/19/20 02:53 Dose: 1 mg Documented by: Insulin Human Lispro (Insulin Lispro 100 Unit/Ml Insuln.Pen) 0 unit SC [facility]; Protocol Last Admin: 09/20/20 06:49 Dose: Not Given Documented by: Losartan Potassium (Losartan Potassium 50 Mg Tablet) 50 mg PO DAILY [facility] Last Admin: 09/19/20 09:22 Dose: 50 mg Documented by: Melatonin (Melatonin 3 Mg Tablet) 3 mg PO QHS PRN PRN PRN Reason: INSOMNIA Last Admin: 09/19/20 21:43 Dose: 3 mg Documented by: Nicotine (Nicotine 14 Mg Patch) 14 mg TD DAILY [facility] Last Admin: 09/19/20 08:35 Dose: Not Given Documented by: Nitroglycerin (Nitroglycerin (Inpatient Use) 0.4 Mg Tab.Subl) 0.4 mg SL Q5M PRN PRN Reason: CARDIAC/CHEST PAIN Ondansetron HCl (Ondansetron 4 Mg/2 Ml Vial) 4 mg IV Q8H PRN PRN PRN Reason: NAUSEA/VOMITING Last Admin: 09/19/20 02:53 Dose: 4 mg Documented by: Oxycodone HCl (Oxycodone 5 Mg Tablet) 10 mg PO Q4H PRN PRN PRN Reason: Pain Score 4-5 Last Admin: 09/19/20 21:43 Dose: 10 mg Documented by: Prochlorperazine Edisylate (Prochlorperazine 10 Mg/2 Ml Vial) 5 mg IV Q4H PRN PRN PRN Reason: NAUSEA/VOMITING Last Admin: 09/19/20 06:35 Dose: 5 mg Documented by: Rizatriptan Benzoate (Rizatriptan Benzoate 10 Mg Tablet) 10 mg PO DAILY PRN PRN PRN Reason: MIGRAINE SYMPTOMS Senna/Docusate Sodium (Senna/Docusate Sodium 1 Tablet) 2 tablet PO BID PRN PRN PRN Reason: Constipation Last Admin: 09/19/20 06:35 Dose: 2 tablet Documented by: Sodium Chloride (0.9% Saline Lock 10 Ml Syringe) 10 - 40 ml IV UD PRN PRN Reason: Open End PICC Flush Last Admin: 09/19/20 21:43 Dose: 10 ml Documented by: Sodium Chloride (0.9 % Nacl (Sterile) Posiflush 10 Ml) 10 - 40 ml IV UD PRN PRN Reason: Port access or dressing change Throat Lozenges (Benzocaine/Menthol 1 Lozenge) 1 lozenge MUCOUS MEM Q2H PRN PRN PRN Reason: SORE THROAT Discharge Diet: No Restrictions Home Medications: Medications to take at Discharge Duloxetine Hcl [Cymbalta] 60 mg PO DAILY 04/30/18 Doxepin HCl 150 mg PO QHS 08/30/19 Gabapentin [Neurontin] 300 mg PO TID 08/30/19 Acetaminophen [Tylenol Tablet] 650 mg PO Q6H PRN PRN tab 09/02/19 ALPRAZolam [Xanax] 1 - 2 tablet PO BID PRN PRN 09/16/20 Albuterol Sulfate [Proair Respiclick] 90 mcg IH BID PRN 09/16/20 Eletriptan Hydrobromide [Relpax] 40 mg PO DAILY PRN 09/16/20 Losartan Potassium [Cozaar] 50 mg PO DAILY 09/16/20 Meloxicam [Mobic] 15 mg PO DAILY PRN 09/16/20 Nicotine [Nicoderm] 14 mg TRANSDERM. DAILY 09/16/20 Ondansetron [Zofran Odt] 4 mg PO Q8H PRN PRN 09/16/20 metFORMIN HCl [Glucophage] 500 mg PO BIDCM 09/16/20 proCHLORPERazine tablet [Compazine tablet] 10 mg PO Q6H PRN PRN 09/16/20 Primary Care Physician: Valerie Mullins MD [Primary Care Provider] - Please follow up with your Primary Care Physician in: in 1 week Disposition: Home Minutes spent on discharge:: 35 Patient Condition:: Stable Medical Necessity - Tobacco Use Smoking Status: Former smoker Meaningful Use Info Meaningful Use Diagnoses (Choose all that apply): None applicable Inpatient E&M: 13526 Disch Hosp
[2020-09-20 09:35] VITALS: BP 108/54; PULSE 100; RESP 16; TEMP 36.8; O2SAT 97
--- NOTE | 2020-09-22 15:52 | CASEMGMT ---
ROGER LEIJA Discharge Follow-up Phone Call: MOO: 12 Strata: 3 Call Date: 09/22/20 Discharge Date: 09/20/20 Time of Call: 1555 Duration: 1 min Admitting Diagnosis: Pancreatitis RN LISS attempted to complete follow-up phone call after recent hospitalization. No answer, voice message left with return contact information.
== END 2020-09-20 10:34 | disposition home or self-care (01) | DRG 282 ==
LOC: ED 11:07 → MS3 12:56
PROVIDERS: Family Medicine; Admitting Provider Internal Medicine; Emergency Provider Emergency Medicine; PCP Internal Medicine; Visit Provider Internal Medicine
DX: K86.0 Alcohol-induced chronic pancreatitis (principal); K85.20 Alcohol induced acute pancreatitis without necrosis or infection; K70.0 Alcoholic fatty liver; F10.20 Alcohol dependence, uncomplicated; Y90.9 Presence of alcohol in blood, level not specified; E11.9 Type 2 diabetes mellitus without complications; E78.00 Pure hypercholesterolemia, unspecified; I10 Essential (primary) hypertension; F32.9 Major depressive disorder, single episode, unspecified; F41.9 Anxiety disorder, unspecified; E83.42 Hypomagnesemia; F17.200 Nicotine dependence, unspecified, uncomplicated; Z79.84 Long term (current) use of oral hypoglycemic drugs; Z79.1 Long term (current) use of non-steroidal anti-inflammatories (NSAID); Z79.899 Other long term (current) drug therapy
CPT/HCPCS: 36415; 36569; 71045; 74177; 76705; 80048; 80053; 80076; 82962; 83690; 83735; 84100; 84703; 85025; 94640; 99284; 99406; J7030; Q9967; A4216; J2405

== ENCOUNTER 2020-09-20 20:42 | Observation (INO) | payer MEDICAID, SELFPAY ==
[2020-09-20 20:42] VITALS: BP 109/73; PULSE 107; RESP 16; TEMP 36.8; O2SAT 99; BMI 21.9
[2020-09-20] MEDS: Ondansetron 4 MG/2 ML Vial IV (21:02)
[2020-09-20] MEDS: Morphine 4 MG/ML Syringe IV (21:02)
[2020-09-20] MEDS: 0.9% Normal Saline 1,000 ML 1000 ML IV (21:02)
[2020-09-20 21:05] LABS: Absolute Lymphocyte Count 1.12 X10^3/uL (0.83-4.51); Absolute Neutrophil Count 5.9 X10^3/uL (2.0-7.7); Basophil# 0.03 X10^3/uL; Basophil% 0.4 % (0-1); Eosinophils% 2.5 % (0-5); Hemoglobin 12.6 g/dL (12.0-15.0); Lymphocyte # 1.12 X10^3/ul (0.83-4.51); Lymphocyte % 13.8 % (19-41); Mean Corp Hgb Conc 33.2 g/dL (32-36); Mean Corpuscular Hgb 34.1 pg (27.0-32.0); Mean Corpuscular Volume 102.7 fL (81-99); Mean Platelet Vol. 9.2 fl (6.2-12.0); Monocyte% 8.6 % (0-10); NRBC Flagged by Analyzer 0 % (0-5); Neutrophil # 5.94 X10^3/uL (2.7-7.7); Neutrophil % 73.2 % (47-70); Platelet Count 187 K/mm3 (150-450); RBC Distribution Width CV 12.1 % (11.6-14.6); RBC Distribution Width SD 45.4 fl (35.1-43.9); White Blood Count 8.1 K/mm3 (4.4-11.0)
--- NOTE | 2020-09-20 21:15 | RAD_ITS ---
INDICATION: Pain EXAMINATION/TECHNIQUE: X-RAY - XR Abdomen Series W/ Chest 1 View COMPARISON: 09/17/2020 FINDINGS: --Chest: LINES/DEVICES: None. LUNGS: No consolidation, edema or effusion. No pneumothorax. Left basilar atelectasis. MEDIASTINUM AND CARDIOVASCULAR STRUCTURES: Cardiac silhouette not enlarged. Central airways and mediastinal contour are unremarkable. BONES AND SOFT TISSUES: No acute findings. --Abdomen: BOWEL GAS PATTERN: Non-obstructive. No bowel or stomach distention. FREE AIR: None visualized. ORGANOMEGALY: Not seen. CALCIFICATIONS: No abnormal calcifications observed. BONES AND SOFT TISSUES: No acute findings. RAD/Acute Abdomen Inc Chest IMPRESSION: Negative chest and abdominal series. Electronically Signed: Francisco Higgins MD at 22:10 EDT Tel , Service support ,
[2020-09-20 21:54] LABS: ALB/GLOB Ratio 0.6 RATIO (0.9-2.4); AST(SGOT) 111 U/L (15-37); Alanine Aminotransfer ALT/SGPT 73 U/L (13-56); Albumin, Serum 2.6 g/dL (3.2-5.0); Alkaline Phosphatase 137 U/L (45-117); Anion Gap 6 (5-15); BUN 5 mg/dL (7-18); BUN/Creat Ratio 6.7 RATIO (10-20); Calcium,Total 8.9 mg/dL (8.5-10.1); Chloride 97 mmol/L (98-107); Creatinine, Serum 0.74 mg/dL (0.55-1.02); EST Glomerular Filtration Rate 89 mL/min (>60); Est Glom Filt Rate - Afr Amer 108 mL/min (>60); Estimated Creatinine Clearance 88.93 ml/min; Globulin 4.5 g/dL (2.2-4.2); Glucose 155 mg/dL (74-106); Lipase 401 U/L (73-393); Potassium 3.2 mmol/L (3.5-5.1); Protein, Total 7.1 g/dL (6.4-8.2); Sodium Level 133 mmol/L (136-145)
--- NOTE | 2020-09-20 22:09 | ED.DCSUM_ITS ---
- ER Visit Summary Date of Service: 09/20/20 Chief Complaint: Abdominal pain History of Present Illness: The patient is a [address] Mullins. She reports that she has a history of pancreatitis. States that she was admitted the hospital 4 days ago with pancreatitis and was doing quite well. She was discharged in the hospital is 8 hours ago and states her pain is 5-10 severity when she was discharged. She reports that since that time she ate popsicles and drink flavored water and her pain has gotten much worse. Patient complains of a sharp, aching pain is 9-10 at worst and 7-10 currently. Is worsened by movement relieved by remaining still. She has had nausea without vomiting. She reports she had approximately 5 episodes of diarrhea today. However, she reports that she feels very distended and bloated since eating. She is passing flatus. She denies any dysuria or frequency. Patient reports that she had pancreatitis approximately a year ago that was thought to be due to high triglycerides. She does have a history of drinking. However, she reports that she has been sober since January 2019. Physical Examination: Vitals: Stable. Afebrile. General: Well-nourished and well-developed. Head: Normocephalic atraumatic. Neck: Supple, no lymphadenopathy. No JVD. Nontender. Cardiovascular: Regular rate and rhythm. No murmurs. Respiratory: No respiratory distress. Clear to auscultation bilaterally. Abdominal: Soft, moderate epigastric and right upper quadrant tenderness to palpation. Distended. Hypoactive bowel sounds. No guarding, rebound, or peritoneal signs. Back: Nontender. Extremities: Nontender, no edema. Skin: Normal color, no rash. Neurologic: Alert and oriented ?3. Cranial nerves II through XII are intact. Normal strength and sensation. Psych: Normal affect. Test Results: CBC shows segmented neutrophils 73, lymphocytes 14, angiogram site is 1.5%. Chem-7 shows a sodium 133, potassium 3.2, chloride 97, glucose 155, BUN of 5. LFTs show a total bili of 2.3, alk phos 137, ALT of 73, AST of 111. Lipase is 401. Albumin is 2.6 and globulin is 4.5. Of note patient's total bilirubin previously this year has been 0.6?1.7. 3 view of the abdomen in my opinion shows an ileus. There are multiple air-fluid levels with minimally dilated small bowel. There is air down throughout the colon. Emergency Department Course and Treatment: Patient had an IV placed. She was given a liter of normal saline. She was given morphine and Zofran IV. I reviewed her chart. She actually had a right upper quadrant ultrasound 4 days ago, a CT 4 days ago, and a CT 2 days ago. I do not know that repeat imaging at this point is necessary. However, the patient's bilirubin is increased as are her LFTs. Treatment Plan: Patient be discussed with Dr. Holloway and admitted to the hospital for further evaluation and treatment. Disposition: Admitted in improved condition. Impression: 1. Pancreatitis. 2. Ileus. 3. Abnormal LFTs. This note was generated with [employer] dictation software. It may contain incorrect words, spelling, and punctuation that were not noted in review of the chart prior to signing ED Disposition - Plan for ED Patient: Referrals: Valerie Mullins MD [Primary Care Provider] -
--- NOTE | 2020-09-20 22:17 | HP.PCM_ITS ---
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 use Diabetes mellitus complication status: with other specified complication Qualified Code(s): E11.69 - Type 2 diabetes mellitus with other specified complication (5) HTN (hypertension) Status: Chronic Qualifiers: Hypertension type: essential hypertension Qualified Code(s): I10 - Essential (primary) hypertension (6) HLD (hyperlipidemia) Status: Chronic Qualifiers: Hyperlipidemia type: unspecified Qualified Code(s): E78.5 - Hyperlipidemia, unspecified (7) Nicotine abuse Status: Chronic (8) History of alcohol abuse Status: Chronic History of Present Illness Date of Admission: 09/20/20 Chief Complaint: Abdominal pain The patient is a 45 y/o F w/ PMHx: EtOH abuse now sober, HTN, HLD, Diabetes mellitus type II, Tobacco use, Hx prior pancreatitis who was recently discharged following admission on 09/16/20 on same day of ED presentation now re-presenting to the [facility] ED on 09/20/20 evening with reported history of turning to home, intake only noted to be a popsicle with onset following significant discomfort, distention with nausea without emesis although reports ongoing flatus but no bowel movement following her discharge prompting eventual ED return given severity of discomfort. Patient notes the discomfort is cramping, sharp and dull in nature, a mix, generalized abdomen with radiation into her back. She notes 8- 9/10 at its worst, now after ED medications 5-/10. Work-up in the ED included T 98.3, heart rate 107, BP 109/73, respiratory rate 16, 99% on room air, CBC with WBC 8.1, hemoglobin 12.6, platelet 187 with increased immature granulocytes otherwise not marked shift, CMP with sodium 133, potassium 3.2, chloride 97, glucose 135, total bilirubin 2.30, AST/LT 111/73, alk phos 137, lipase 401, acute abdominal series read as radiology is negative however significant concern for noted distention and air-fluid levels more consistent with an ileus. Patient with recent right upper quadrant ultrasound on 09/16/[address] recent CT abdomen and pelvis on 09/16/2020 and 09/18/2020 therefore not repeated at this time. Past Medical History Past Medical History (Chronic Problems): Chronic Problems Diabetes (Chronic) HTN (hypertension) (Chronic) HLD (hyperlipidemia) (Chronic) Alcoholism (Chronic) Nicotine abuse (Chronic) History of alcohol abuse (Chronic) Allergies azithromycin [From Zithromax] Adverse Reaction (Verified 09/20/20 20:45) Diarrhea codeine Adverse Reaction (Verified 09/20/20 20:45) Nausea promethazine [From Phenergan] Adverse Reaction (Verified 09/20/20 20:45) Vomiting Home Medications: Ambulatory Orders Medication Instructions Recorded Duloxetine Hcl [Cymbalta] 60 mg PO DAILY 04/30/18 Doxepin HCl 150 mg PO QHS 08/30/19 Gabapentin [Neurontin] 300 mg PO TID 08/30/19 Acetaminophen [Tylenol Tablet] 650 mg PO Q6H PRN PRN tab 09/02/19 ALPRAZolam [Xanax] 1 - 2 tablet PO BID PRN PRN 09/16/20 Albuterol Sulfate [Proair 90 mcg IH BID PRN 09/16/20 Respiclick] Eletriptan Hydrobromide [Relpax] 40 mg PO DAILY PRN 09/16/20 Losartan Potassium [Cozaar] 50 mg PO DAILY 09/16/20 Meloxicam [Mobic] 15 mg PO DAILY PRN 09/16/20 Nicotine [Nicoderm] 14 mg TRANSDERM. DAILY 09/16/20 Ondansetron [Zofran Odt] 4 mg PO Q8H PRN PRN 09/16/20 metFORMIN HCl [Glucophage] 500 mg PO BIDCM 09/16/20 proCHLORPERazine tablet [Compazine 10 mg PO Q6H PRN PRN 09/16/20 tablet] Surgical History: - - Tonsillectomy, left knee arthroplastic surgery, unclear type of intervention for cervical cancer, possibly cone biopsy, endometrial ablations, x3, bilateral breast augmentation. 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 Tobacco Use: Non-smoker Alcohol: Sober - Patient reports being sober since January 2019. Drugs: None - *Family History Maternal History Items: Cancer - Mother with a history of breast cancer, uterine cancer., Diabetes Paternal History Items: Cancer - Father with a history of lung cancer, prior tobacco use history., Hypertension Review of Systems Constitutional: Reports: Anorexia, Malaise, Weakness, Fatigue. Denies: Chills, Fever, Weight Change HEENT: Denies: Head Aches, Sinus Congestion, Sinus Drainage Cardiovascular: Denies: Chest Pain, Palpitations Respiratory: Denies: Cough, Shortness of breath at rest, Sputum production Gastrointestinal: Reports: Abdominal Pain, Nausea, - - Distention.. Denies: Vomiting Genitourinary: Denies: Dysuria Musculoskeletal: Denies: Joint Pain, Joint Tenderness Skin: Denies: Rash, Wounds Neurological: Denies: Numbness, Tingling, Focal weakness Psychiatric: Reports: Anxiety, Depression. Denies: Homicidal Ideations, Suicidal Ideations Hematologic/ Lymphatic: Denies: Easy Bruising, Easy Bleeding VTE Information - Inpt Only VTE Present on Admission: No VTE Mechan Device Prophylaxis: SCD's VTE Pharm Prophylaxis ordered?: Yes Patient Problems: Active and Suspected Problems Acute pancreatitis (Acute) Transaminitis (Acute) Elevated bilirubin (Acute) Subjective: Patient seated upright in ED bed, fatigued, notes abdominal discomfort improving now 6 out of 10, still significant abdominal distention. Objective: Physical Examination: General: awake, alert, oriented x 3 and cooperative, seated upright in ED bed, fatigued, mildly uncomfortable appearing. Skin: normal color, turgor, no icterus, cyanosis. HEENT: AT/NC, EOMI, PERRLA, dry MM, no carotid bruits or JVD noted. Lungs: CTA bilaterally, moderate effort, mild decrease BL bases, no rales, ronchi or wheezing. Heart: Tachycardic with regular rhythm; no gallop, rub audible. Abdomen: soft, generalized discomfort with palpation, voluntary guarding, distended, hyperactive high-pitched bowel sounds, difficult to assess HSM given current distention and discomfort. Extremities: no cyanosis, clubbing, or edema. Neurological: patient awake, alert, oriented as noted; cognitive function intact; pupils equally reactive to light and accomodation; cranial nerves II-XII grossly normal, moving all 4 extremities, no focal deficits, strength moderately global decrease secondary to acute presentation as noted. Psychiatric: affect appears fatigued, uncomfortable, tearful noting that she is exhausted and would like to know why her abdomen keeps becoming distended, history of depression and anxiety. - Physical Exam Vitals/I&O's: Vital Signs Temp Pulse Resp BP Pulse Ox 98.3 F 107 H 16 109/73 99 09/20/20 20:42 09/20/20 20:42 09/20/20 20:42 09/20/20 20:42 09/20/20 20:42 Oxygen Delivery Method Room Air Weight: 136 lb Body Mass Index (BMI) 21.9 Laboratory Results 09/20/20 20:57: WBC 8.1, RBC 3.70 L, Hgb 12.6, Hct 38.0, MCV 102.7 H, MCH 34.1 H , MCHC 33.2, RDW Std Deviation 45.4 H, RDW Coeff of Teressa 12.1, Plt Count 187, MPV 9.2, Immature Gran % (Auto) 1.500 H, Neut % (Auto) 73.2 H, Lymph % (Auto) 13.8 L , Jack % (Auto) 8.6, Eos % (Auto) 2.5, Baso % (Auto) 0.4, Absolute Neuts (auto) 5.9, Absolute Lymphs (auto) 1.12, Nucleated RBC % 0 09/20/20 20:57: Sodium 133 L, Potassium 3.2 L, Chloride 97 L, Carbon Dioxide 30.0, Anion Gap 6, BUN 5 L, Creatinine 0.74, Estim Creat Clear Calc 88.93, Est GFR (MDRD) Af Amer 108, Est GFR (MDRD) Non-Af 89, BUN/Creatinine Ratio 6.7 L, Glucose 155 H, Calcium 8.9, Total Bilirubin 2.30 H, AST 111 H, ALT 73 H, Alkaline Phosphatase 137 H, Total Protein 7.1, Albumin 2.6 L, Globulin 4.5 H, Albumin/Globulin Ratio 0.6 L, Lipase 401 H Assessment/Plan All Active Problems Acute pancreatitis (Acute) Transaminitis (Acute) Abdominal pain (Acute) Elevated bilirubin (Acute) The patient is a 45 y/o F w/ PMHx: EtOH abuse now sober, HTN, HLD, Diabetes mellitus type II, Tobacco use, Hx prior pancreatitis who was recently discharged following admission on 09/16/20 on same day of ED presentation now re-presenting to the [facility] ED on 09/20/20 evening with reported history of turning to home, intake only noted to be a popsicle with onset following significant discomfort, distention with nausea without emesis although reports ongoing flatus but no bowel movement following her discharge prompting eventual ED return. 1. Acute pancreatitis w/ abdominal pain, nausea: Admission lipase 401, is improving since recent presentation with noted rise up to 4331, most recently on discharge 09/19/2020 493, given recurrent abdominal distention, rising LFTs of unclear etiology will admit to medical surgical floor, maintain on IVFs, NPO, PPI, IV/po pain control, trend lipase, CMP, request surgery consultation and may need to consider repeat imaging but will await their evaluation given recent serial imaging. 2. Elevated bilirubin, LFTs, increasing even from recent discharge: Admission total bilirubin 2.30, 09/19/2020 1.70 and noted to be normal range 0.6 on 09/16/2020, admission AST/ALT 111/73, recent 09/19/20 AST/ALT normal range 21/28, steadily increasing, unclear specific etiology, as noted recent right upper quadrant ultrasound 09/16/2020 with no acute finding and similarly CT abdomen and pelvis on 09/16/2020 and 09/18/2020 not marked appearing with no obvious etiology for rise as well as acute discomfort and abdominal distention. Hepatitic profile requested. Will also request coags. 3. Hypokalemia: Admission K+ 3.2, magnesium level requested, supplementation given, repeat level in AM. 4. Hypertension: Continue home regimen including losartan with hold parameters, PRN hydralazine. 5. Hyperlipidemia: Patient not on regimen, recent 08/31/2019 triglycerides 640, total cholesterol 247, HDL 25, LDL and VLDL not performed at that time. 6. Diabetes mellitus type II with neuropathy: Hold oral home regimen, currently n.p.o. status given presentation as noted, accu checks every 6 hours while n.p.o. status w/ ISS, continue gabapentin home regimen. 7. Tobacco use: Since recent presentation patient has not been smoking, will continue nicotine patch, RT for education. 8. Anxiety and depression: We will continue patient home Xanax and Cymbalta regimen. 9. DVT prophylaxis: SCDs, will await coags prior to any addition of chemoprophylaxis. OBSV E&M: 10509 Initial observation care L3
[2020-09-20 22:41] VITALS: BP 118/66; PULSE 104; RESP 16; TEMP 36.6; O2SAT 96
[2020-09-20 23:11] VITALS: BP 129/82; PULSE 90; RESP 16; TEMP 36.9; O2SAT 94; BMI 21.9
[2020-09-20 23:23] VITALS: BMI 22.0
[2020-09-20 23:23] LABS: Magnesium 2.1 mg/dL (1.6-2.6)
[2020-09-20 23:28] LABS: International Normalized Ratio 1.1; Partial Thromboplast Time 32.9 Seconds (24.1-36.2); Prothrombin Time (Protime)PT. 13.6 SECONDS (11.7-14.9)
[2020-09-20] MEDS: 0.9% Normal Saline 1,000 ML 150 ML IV (23:39)
[2020-09-20] MEDS: Potassium Chloride Oral Tablet 20 MEQ 40 MEQ PO (23:39)
[2020-09-20] MEDS: oxyCODONE 5 MG Tablet PO (23:39)
[2020-09-20 23:51] LABS: Bedside Glucose 148 mg/dL (70-110)
[2020-09-20] MEDS: Gabapentin 300 MG Capsule PO (23:54)
[2020-09-20] MEDS: DOXEPIN HCL 50 MG CAPSULE 150 MG PO (23:55)
[2020-09-20] MEDS: DULoxetine Hcl 60 MG Capsule PO (23:55)
[2020-09-21] MEDS: Morphine 4 MG/ML Syringe IV (01:25)
[2020-09-21 05:37] LABS: Absolute Lymphocyte Count 1.35 X10^3/uL (0.83-4.51); Absolute Neutrophil Count 4.6 X10^3/uL (2.0-7.7); Basophil# 0.05 X10^3/uL; Basophil% 0.7 % (0-1); Eosinophils% 2.8 % (0-5); Hemoglobin 11.7 g/dL (12.0-15.0); Lymphocyte # 1.35 X10^3/ul (0.83-4.51); Lymphocyte % 19.1 % (19-41); Mean Corp Hgb Conc 33.4 g/dL (32-36); Mean Corpuscular Hgb 35.3 pg (27.0-32.0); Mean Corpuscular Volume 105.7 fL (81-99); Mean Platelet Vol. 9.1 fl (6.2-12.0); Monocyte# 0.73 X10^3/uL; Monocyte% 10.4 % (0-10); NRBC Flagged by Analyzer 0 % (0-5); Neutrophil # 4.59 X10^3/uL (2.7-7.7); Neutrophil % 65.2 % (47-70); Platelet Count 167 K/mm3 (150-450); RBC Distribution Width CV 11.9 % (11.6-14.6); RBC Distribution Width SD 46.8 fl (35.1-43.9); Red Blood Count 3.31 M/mm3 (4.2-5.4); White Blood Count 7.1 K/mm3 (4.4-11.0)
[2020-09-21] MEDS: Gabapentin 300 MG Capsule PO (05:44)
[2020-09-21] MEDS: 0.9% Normal Saline 1,000 ML 150 ML IV ×2 (05:44→11:48)
[2020-09-21] MEDS: oxyCODONE 5 MG Tablet PO (05:44)
[2020-09-21 05:56] LABS: ALB/GLOB Ratio 0.6 RATIO (0.9-2.4); AST(SGOT) 59 U/L (15-37); Alanine Aminotransfer ALT/SGPT 55 U/L (13-56); Albumin, Serum 2.1 g/dL (3.2-5.0); Alkaline Phosphatase 110 U/L (45-117); Anion Gap 3 (5-15); BUN 5 mg/dL (7-18); BUN/Creat Ratio 8.4 RATIO (10-20); Chloride 104 mmol/L (98-107); EST Glomerular Filtration Rate 115 mL/min (>60); Est Glom Filt Rate - Afr Amer 139 mL/min (>60); Estimated Creatinine Clearance 109.68 ml/min; Globulin 3.6 g/dL (2.2-4.2); Glucose 120 mg/dL (74-106); Lipase 338 U/L (73-393); Potassium 3.6 mmol/L (3.5-5.1); Protein, Total 5.7 g/dL (6.4-8.2); Sodium Level 138 mmol/L (136-145)
[2020-09-21 05:58] VITALS: BP 117/77; PULSE 88; RESP 16; TEMP 36.3; O2SAT 98
[2020-09-21 06:45] LABS: Bedside Glucose 115 mg/dL (70-110)
--- NOTE | 2020-09-21 07:58 | PCM.PN.HOSP ---
Patient Problems: Active and Suspected Problems Acute pancreatitis (Acute) Transaminitis (Acute) Elevated bilirubin (Acute) Reason for Visit: Abdominal pain Subjective: Patient is a 45-year-old lady discharge on 09/20/2020 following admission for acute pancreatitis presented back to the emergency department later on in the evening with abdominal pain and distention. Found to have slightly elevated transaminases as well as bilirubin level admitted to regular nursing floor for further management Objective: GENERAL: cooperative HEENT: Atraumatic; EYES; Anicteric, Normal Conjunctiva NECK; supple, normal thyroid, RESPIRATORY: Diminished to auscultation CARDIOVASCULAR: Regular S1 S2, GI: Lightly distended, normoactive bowel sounds : No Renal angle tenderness; EXTREMITIES: No edema, no clubbing, MUSCULOSKELETAL: no muscle waisting NEURO: Awake; no lateralizing signs. SKIN: No Rash PSYCH; Flat affect Vitals/I&O's: Vital Signs Temp Pulse Resp BP Pulse Ox 97.4 F L 88 16 117/77 98 09/21/20 05:58 09/21/20 05:58 09/21/20 05:58 09/21/20 05:58 09/21/20 05:58 Oxygen Delivery Method Room Air Weight: 61.8 kg Body Mass Index (BMI) 21.9 Intake and Output for Last 24 Hours 09/19/20 09/20/20 09/21/20 23:59 23:59 23:59 Intake Total 1000 / 1000 912.5 / 912.5 Balance 1000 / 1000 912.5 / 912.5 Laboratory Results 09/20/20 20:57: WBC 8.1, RBC 3.70 L, Hgb 12.6, Hct 38.0, MCV 102.7 H, MCH 34.1 H, MCHC 33.2, RDW Std Deviation 45.4 H, RDW Coeff of Teressa 12.1, Plt Count 187, MPV 9.2, Immature Gran % (Auto) 1.500 H, Neut % (Auto) 73.2 H, Lymph % (Auto) 13.8 L, Tyrrell % (Auto) 8.6, Eos % (Auto) 2.5, Baso % (Auto) 0.4, Absolute Neuts (auto) 5.9, Absolute Lymphs (auto) 1.12, Nucleated RBC % 0 09/20/20 20:57: Sodium 133 L, Potassium 3.2 L, Chloride 97 L, Carbon Dioxide 30.0, Anion Gap 6, BUN 5 L, Creatinine 0.74, Estim Creat Clear Calc 88.93, Est GFR (MDRD) Af Amer 108, Est GFR (MDRD) Non-Af 89, BUN/Creatinine Ratio 6.7 L, Glucose 155 H, Calcium 8.9, Total Bilirubin 2.30 H, AST 111 H, ALT 73 H, Alkaline Phosphatase 137 H, Total Protein 7.1, Albumin 2.6 L, Globulin 4.5 H, Albumin/Globulin Ratio 0.6 L, Lipase 401 H 09/20/20 20:57: PT 13.6, INR 1.1, APTT 32.9 09/20/20 20:57: Magnesium 2.1 09/20/20 20:57: Hepatitis A IgM Ab Pending, Hepatitis A Ab Total Pending, Hep Bs Antigen Pending, Hep B Core Total Ab Pending, Hep B Core IgM Ab Pending 09/20/20 23:43: POC Glucose 148 H 09/21/20 05:32: WBC 7.1, RBC 3.31 L, Hgb 11.7 L, Hct 35.0 L, MCV 105.7 H, MCH 35.3 H, MCHC 33.4, RDW Std Deviation 46.8 H, RDW Coeff of Teressa 11.9, Plt Count 167, MPV 9.1, Immature Gran % (Auto) 1.800 H, Neut % (Auto) 65.2, Lymph % (Auto) 19.1, Tyrrell % (Auto) 10.4 H, Eos % (Auto) 2.8, Baso % (Auto) 0.7, Absolute Neuts (auto) 4.6, Absolute Lymphs (auto) 1.35, Nucleated RBC % 0 09/21/20 05:32: Sodium 138, Potassium 3.6, Chloride 104, Carbon Dioxide 31.0, Anion Gap 3 L, BUN 5 L, Creatinine 0.60, Estim Creat Clear Calc 109.68, Est GFR (MDRD) Af Amer 139, Est GFR (MDRD) Non-Af 115, BUN/Creatinine Ratio 8.4 L, Glucose 120 H, Calcium 8.0 L, Total Bilirubin 1.50 H, AST 59 H, ALT 55, Alkaline Phosphatase 110, Total Protein 5.7 L, Albumin 2.1 L, Globulin 3.6, Albumin/Globulin Ratio 0.6 L, Lipase 338 09/21/20 05:37: POC Glucose 115 H Current Medications Acetaminophen (Acetaminophen 325 Mg Tablet) 650 mg PO Q6H PRN PRN PRN Reason: Pain Score 1-10/Temp > 100.7 F Al Hydroxide/Mg Hydroxide (Mag Hydrox/Al Hydrox/Simeth 30 Ml Udc) 30 ml PO Q6H PRN PRN PRN Reason: Gastric Burning Albuterol Sulfate (Albuterol 2.5 Mg/3 Ml Vial.Neb.) 2.5 mg INHALATION Q2H PRN PRN PRN Reason: Dyspnea, wheezing Alprazolam (Alprazolam 0.25 Mg Tablet) 0.25 - 0.5 mg PO BID PRN PRN PRN Reason: ANXIETY Doxepin HCl (Doxepin Hcl 50 Mg Capsule) 150 mg PO QHS [facility] Last Admin: 09/20/20 23:55 Dose: 150 mg Documented by: Duloxetine HCl (Duloxetine Hcl 60 Mg Capsule) 60 mg PO QHS [facility] Gabapentin (Gabapentin 300 Mg Capsule) 300 mg PO TID [facility] Last Admin: 09/21/20 05:44 Dose: 300 mg Documented by: Guaifenesin (Guaifenesin 10 Ml Udc (200mg/10ml)) 20 ml PO Q4H PRN PRN PRN Reason: COUGH Hydralazine HCl (Hydralazine 20 Mg/Ml Vial) 10 mg IV Q4H PRN PRN PRN Reason: SBP > 160 Sodium Chloride () 1,000 mls @ 150 mls/hr IV .Q6H40M [facility] Last Admin: 09/21/20 05:44 Dose: 150 mls/hr Documented by: Insulin Human Lispro (Insulin Lispro 100 Unit/Ml Insuln.Pen) 0 unit SC Q6 [facility]; Protocol Last Admin: 09/21/20 05:40 Dose: Not Given Documented by: Losartan Potassium (Losartan Potassium 50 Mg Tablet) 50 mg PO DAILY [facility] Magnesium Hydroxide (Magnesium Hydroxide 30 Ml Udc) 30 ml PO DAILY PRN PRN PRN Reason: Constipation Morphine Sulfate (Morphine 4 Mg/Ml Syringe) 4 mg IV Q3H PRN PRN PRN Reason: Pain Score 6-10 Last Admin: 09/21/20 01:25 Dose: 4 mg Documented by: Nicotine (Nicotine 14 Mg Patch) 14 mg TD DAILY ABE Last Admin: 09/20/20 23:30 Dose: Not Given Documented by: Ondansetron HCl (Ondansetron 4 Mg/2 Ml Vial) 4 mg IV Q8H PRN PRN PRN Reason: NAUSEA/VOMITING Oxycodone HCl (Oxycodone 5 Mg Tablet) 5 mg PO Q4H PRN PRN PRN Reason: Pain Score 4-5 Last Admin: 09/21/20 05:44 Dose: 5 mg Documented by: Prochlorperazine Edisylate (Prochlorperazine 10 Mg/2 Ml Vial) 5 mg IV Q4H PRN PRN PRN Reason: Breakthrough nausea/vomiting Psyllium Hydrophilic Mucilloid (Psyllium 1 Packet) 1 packet PO DAILY PRN PRN PRN Reason: Constipation Senna/Docusate Sodium (Senna/Docusate Sodium 1 Tablet) 2 tablet PO BID PRN PRN PRN Reason: Constipation Sodium Chloride (0.9% Saline Lock 10 Ml Syringe) 10 - 40 ml IV UD PRN PRN Reason: SALINE FLUSH Temazepam (Temazepam 15 Mg Capsule) 15 mg PO QHS PRN PRN PRN Reason: INSOMNIA Throat Lozenges (Benzocaine/Menthol 1 Lozenge) 1 lozenge MUCOUS MEM Q2H PRN PRN PRN Reason: SORE THROAT STROKE Vital Signs/Narrative: Vital Signs Temp Pulse Resp BP Pulse Ox 09/21/20 05:58 97.4 F L 88 16 117/77 98 Medical Necessity - Tobacco Use Smoking Status: Former smoker Tobacco Use: Non-smoker Assessment/Plan All Active Problems Acute pancreatitis (Acute) Transaminitis (Acute) Abdominal pain (Acute) Elevated bilirubin (Acute) Patient is a 45-year-old lady discharge on 09/20/2020 following admission for acute pancreatitis presented back to the emergency department later on in the evening with abdominal pain and distention. Found to have slightly elevated transaminases as well as bilirubin level admitted to regular nursing floor for further management 1. Abdominal pain and bloating ?Patient recently discharged following admission for acute pancreatitis. Imaging studies obtained on her readmission unremarkable was however found to have slightly elevated bilirubin level which has since improved. Consult was placed to general surgery awaiting input. 2. Recent admission for acute on chronic pancreatitis ?Patient was managed conservatively with improvement in symptoms 3. Hypertension - Blood pressure controlled, home medications continued with dose adjustment as needed 4. Depression with anxiety ?Patient is on Cymbalta as well as alprazolam as needed 5. Tobacco dependence - Counseled on cessation, offered nicotine patch for tobacco cravings 6. Dyslipidemia -Patient is managed on diet 7. Alcoholic fatty liver disease ?Monitoring liver function test 8. DVT prophylaxis - On enoxaparin OBSV E&M: [id number] Initial observation care L2
[2020-09-21 08:48] VITALS: BP 125/81; PULSE 73; RESP 16; TEMP 36.7; O2SAT 96
[2020-09-21] MEDS: Losartan Potassium 50 MG Tablet PO (09:20)
[2020-09-21] MEDS: 0.9% Saline Lock 10 ML Syringe IV (09:21)
[2020-09-21] MEDS: HYDROmorphone 1 MG/ML Syringe IV (09:21)
[2020-09-21 11:49] VITALS: O2SAT 95
[2020-09-21 11:55] LABS: Bedside Glucose 149 mg/dL (70-110)
--- NOTE | 2020-09-21 12:27 | DCINST_ITS ---
- Discharge Diagnoses Current Active Problems: Current Active and Chronic Problems Acute pancreatitis (Acute) Diabetes (Chronic) HTN (hypertension) (Chronic) HLD (hyperlipidemia) (Chronic) Nicotine abuse (Chronic) Transaminitis (Acute) Elevated bilirubin (Acute) History of alcohol abuse (Chronic) You will use the following diet at home:: Calorie/Carbohydrate Controlled (specify 1200, 1400, etc) - 1800 Your food should be the consistency of: Regular Discharge Activity: Return to Normal Activity Allergies/Adverse Reactions: Allergies azithromycin [From Zithromax] Adverse Reaction (Verified 09/20/20 20:45) Diarrhea codeine Adverse Reaction (Verified 09/20/20 20:45) Nausea promethazine [From Phenergan] Adverse Reaction (Verified 09/20/20 20:45) Vomiting Medications to take at Discharge Duloxetine Hcl [Cymbalta] 60 mg PO QHS 04/30/18 Doxepin HCl 150 mg PO QHS 08/30/19 Gabapentin [Neurontin] 300 mg PO TID 08/30/19 Acetaminophen [Tylenol Tablet] 650 mg PO Q6H PRN PRN tab 09/02/19 ALPRAZolam [Xanax] 1 - 2 tablet PO BID PRN PRN 09/16/20 Albuterol Sulfate [Proair Respiclick] 90 mcg IH BID PRN 09/16/20 Eletriptan Hydrobromide [Relpax] 40 mg PO DAILY PRN 09/16/20 Losartan Potassium [Cozaar] 50 mg PO DAILY 09/16/20 Meloxicam [Mobic] 15 mg PO DAILY PRN 09/16/20 Nicotine [Nicoderm] 14 mg TRANSDERM. DAILY 09/16/20 Ondansetron [Zofran Odt] 4 mg PO Q8H PRN PRN 09/16/20 metFORMIN HCl [Glucophage] 500 mg PO BIDCM 09/16/20 proCHLORPERazine tablet [Compazine tablet] 10 mg PO Q6H PRN PRN 09/16/20 Primary Care Physician: Valerie Mullins MD [Primary Care Provider] - Please follow up with your Primary Care Physician in: IN 1 WEEK Test Results: Test results from this visit will be discussed in further detail at your follow- up appointment, if applicable. Please Follow Up With: Lynda Brooks MD When: IN 2-3 DAYS Proposed Discharge Date: 09/21/20
--- NOTE | 2020-09-21 12:28 | PCM.CONS.B ---
- Consult Date of Consult: 09/21/20 - Reason for Consult CC - abdominal pain HPI - Zara is a 45 y/o WF who is readmitted for abdominal pain, nausea/vomiting and acute pancreatitis. I was asked by the hospitalist service for evaluation of this patient. She had just been discharged from the hospital for acute pancreatitis but states that when she got home, she had worsening/return of her symptoms. She presented to the ED at [facility] with lipase of 401 (this morning it is normal at 338), her last admission lipase was 4331. She had previous admission in August 2019 with a acute pancreatitis and her lipase was 76423. She denies ETOH use since 2019. I even questioned her regarding small amounts of ETOH and she states that she abstains completely. Serial gallbladder ultrasounds reveal no cholelithiasis or evidence of gallbladder disease. She denies fevers. She was admitted for ileus - abdominal distention. Presently she feels much better, less distended, passing flatus. PAST MEDICAL HISTORY ? Alcohol abuse ?- none since 2018 ? Allergic rhinitis, cause unspecified 10/27/2006 ? Diarrhea ? ? Generalized anxiety disorder ? ? Migraine headache with aura 01/17/2013 rarely has; only had 2 since last appointment ? Polyneuropathy EMG 2016 ? Psoriasis ? ? PAST SURGICAL HISTORY ? BREAST AUGMENTATION W/PROSTHETIC IMPLANT Bilateral 12/14/2019 ? DELIVERY ONLY x 2 , low cervical ? COLONOSCOP W/ OR W/O [facility] SPEC 10/25/2013 ? D&C, DIAG AND/OR THERAPEUTIC ? ? ? EYE SURGERY HX ? ? ? KNEE SCOPE,DIAGNOSTIC ? ? ? PAST SURGICAL HISTORY OF laser surgery on cervix ? REMOVAL ADENOIDS,PRIMARY,<12 Y/O ? ? ? REMOVAL OF TONSILS,<12 Y/O Tonsillectomy ?? Current Outpatient Medications ? metFORMIN (GLUCOPHAGE) 500 mg tablet Take 1 tablet by mouth twice daily with meals. ? nicotine (NICODERM) 14 mg/24 hr Apply 1 Patch as directed every 24 hours. No smoking with patch. ? doxepin capsule 75 mg Take 2 capsules by mouth daily at bedtime. ? ALPRAZolam (XANAX) 0.25 mg tablet Take 1-2 tablets by mouth twice daily as needed for Anxiety for up to 90 days. ? ProAir RespiClick 90 mcg/actuation breath activated (albuterol sulfate) Inhale 1-2 Puffs as instructed twice daily as needed. ? DULoxetine (CYMBALTA) 20 mg capsule Take 1 capsule by mouth twice daily. ? glipiZIDE (GLUCOTROL) 5 mg tablet Take 0.5 tablets by mouth twice daily before meals. As directed ? gabapentin (NEURONTIN) 100 mg capsule Take 1-2 capsules by mouth three times daily for 30 days. As directed ? losartan (COZAAR) 50 mg tablet Take 1 tablet by mouth once daily. ? Blood Pressure Monitor 1 Each as needed. Dx: I10 ? ondansetron (ZOFRAN) 8 mg tablet Take 0.5 tablets by mouth every 8 hours as needed for Nausea/Vomiting (Take one half tablet as ? eletriptan (RELPAX) 40 mg tablet Take 1 tablet by mouth as needed. ? prochlorperazine (COMPAZINE) 10 mg tablet Take 1 tablet by mouth every 6 hours as needed. ?? ALLERGIES: Codeine, Environmental [Other], Morphine, Phenergan [Promethazine Hcl], and Zithromax [Azithromycin] ? PERSONAL HISTORY: Social History Tobacco Use ? Smoking status: Current Every Day Smoker ? ? Packs/day: 0.50 ? ? Last attempt to quit: 11/20/2019 ? ? Years since quittin.5 ? Smokeless tobacco: Never Used ? Tobacco comment: 2-3 cigarettes per day Substance Use Topics ? Alcohol use: Not Currently ? ? Comment: recovering alcoholic ? Drug use: No ? FAMILY HISTORY ? Cancer Father lung, Heart disease ? ? Breast Cancer Mother Cervical Cancer, Diabetes insulin depend, Coronary Artery Disease? ? Coronary Artery Disease Paternal Grandfather ? ? Stroke Sister left sided muscular dystrophy ? other (lung cancer) Maternal Aunt ? ? Cervical Cancer Maternal Aunt ? ? Alcohol/Drug Brother ? ? Diabetes Son 7 ?? REVIEW OF SYSTEMS: ?General:???The patient notes fatigue, denies weight loss, denies weight gain, denies feeling hot, and denies feelings of cold. ?Eyes: ?The patient denies glaucoma, NOTES eye injury/surgery, does not wear glasses or contacts. ?Ear/Nose/Throat: ?The patient NOTES allergies, denies hayfever, denies ear infections, and denies bloody noses. ?Cardiovascular: ?The patient denies chest pain, denies heart disease, denies high blood pressure,denies cardiac stent, denies prior heart attack, denies irregular heart beat, denies high cholesterol, ?denies poor circulation, denies heart failure, other cardiac issues, denies claudication, denies cold feet, denies peripheral arterial stent. ?Respiratory: admits to TOB use,?denies pneumonia, denies frequent cough, denies pulmonary embolism, denies shortness of breath, and denies coughing up blood. ?Gastrointestinal: ?The patient denies difficulty swallowing, denies acid reflux, denies ulcers, denies vomiting, denies jaundice/hepatitis, denies gallbladder problems, denies black or tarry stools, denies hemorrhoids, denies bleeding from rectum, denies diverticulitis, denies constipation, NOTES diarrhea, denies loss of stool control, and denies hernias. ?Kidney/Bladder: ?The patient denies kidney stones, denies urine infections, and denies bloody urine. ?Skin: ?The patient denies a history of skin cancer, denies bleeding/changing moles, and NOTES a history of skin rash. ?Neurologic: has migraine headaches, has unknown type of neuropathy of hands/feet,?denies a history of epilepsy/convulsions, denies head/spinal injuries, and denies stroke/TIA. ?Psychiatric: ?The patient denies psychiatric medications, denies depression, and denies voices, denies substance abuse. ?Endocrine: ?The patient denies thyroid disorders, NOTES diabetes, and denies hormonal problems. ?Hematologic: ?The patient denies a history of bruising, denies bleeding, and denies anemia, denies blood clots. ?Infections: ?The patient denies a history of measles and mumps, denies rheumatic fever, and denies sexually transmitted diseases. ?Musculoskeletal: ?The patient denies back pain/injury, denies back problems, denies sciatica, denies knee/foot trouble, denies arthritis, or denies gout. ?? PHYSICAL EXAMINATION: General: ?The patient is 43 year old female, well nourished, well hydrated in no acute distress. ?The patient is oriented to time, place, and person. VITALS: Temp 98.4F RR 16 HR 88 BP 125/81 Head ??Normocephalic. EOM intact with sclera clear and no icterus noted. Mouth with mucus membranes moist. Neck - supple with no jugular venous distention noted. Trachea is midline. Lungs ??normal respiratory excursion, no adventitial sounds noted. No labored breathing noted, such as retractions. No cough heard. Abdomen ??soft and benign tender in epigastrium but no peritoneal signs. No distention noted. Extremities ??no calf tenderness noted. No pitting edema noted. Skin ??non focal Psych ??calm and appropriate Impression: repeated bouts of pancreatitis - patient denies ETOH use and gallbladder normal PLAN: Will refer patient to GI medicine at main [facility] for evaluation - can be done as outpatient Patient states that she feels markedly improved Will discharge to home on light diet - low fat Patient acknowledges above.
--- NOTE | 2020-09-21 12:33 | DS.PCM_ITS ---
Discharge Date and Diagnosis - Problem List Patient Problems: Active and Suspected Problems Acute pancreatitis (Acute) Transaminitis (Acute) Elevated bilirubin (Acute) Date of Admission: 09/20/20 Date of Discharge: 09/21/20 - Primary Discharge Diagnosis Acute Problems: Active Problems Acute pancreatitis (Acute) Transaminitis (Acute) Elevated bilirubin (Acute) - Secondary Discharge Diagnosis Chronic Problems: Chronic Problems Diabetes (Chronic) HTN (hypertension) (Chronic) HLD (hyperlipidemia) (Chronic) Alcoholism (Chronic) Nicotine abuse (Chronic) History of alcohol abuse (Chronic) Hospital Course and Treatment Operations: None Summary of Care Provided: Patient is a 45-year-old lady discharge on 09/20/2020 following admission for acute pancreatitis presented back to the emergency department later on in the evening with abdominal pain and distention. Found to have slightly elevated transaminases as well as bilirubin level admitted to regular nursing floor for further management 1. Abdominal pain and bloating ?Patient recently discharged following admission for acute pancreatitis. Imaging studies obtained on her readmission unremarkable was however found to have slightly elevated bilirubin level which has since improved. Seen in consultation by Dr. Lynda Chawla with general surgery recommended discharge with outpatient follow-up with GI 2. Recent admission for acute on chronic pancreatitis ?Patient was managed conservatively with improvement in symptoms 3. Hypertension - Blood pressure controlled, home medications continued with dose adjustment as needed 4. Depression with anxiety ?Patient is on Cymbalta as well as alprazolam as needed 5. Tobacco dependence - Counseled on cessation, offered nicotine patch for tobacco cravings 6. Dyslipidemia -Patient is managed on diet 7. Alcoholic fatty liver disease ?Monitoring liver function test 8. DVT prophylaxis - On enoxaparin Patient Problems: Active and Suspected Problems Acute pancreatitis (Acute) Transaminitis (Acute) Elevated bilirubin (Acute) - Physical Exam Vitals/I&O's: Vital Signs Temp Pulse Resp BP Pulse Ox 98.0 F 73 16 125/81 H 95 09/21/20 08:48 09/21/20 08:48 09/21/20 08:48 09/21/20 08:48 09/21/20 11:49 Oxygen Delivery Method Room Air Weight: 61.8 kg Body Mass Index (BMI) 21.9 Intake and Output for Last 24 Hours 09/19/20 09/20/20 09/21/20 23:59 23:59 23:59 Intake Total 1000 / 1000 1822.5 / 1822.5 Balance 999 / 999 182.5 / 182.5 General: Alert HEENT: Atraumatic Lungs: Diminished Cardiovascular: Regular rate, Regular Rhythm Laboratory Results 09/20/20 20:57: WBC 8.1, RBC 3.70 L, Hgb 12.6, Hct 38.0, MCV 102.7 H, MCH 34.1 H , MCHC 33.2, RDW Std Deviation 45.4 H, RDW Coeff of Teressa 12.1, Plt Count 187, MPV 9.2, Immature Gran % (Auto) 1.500 H, Neut % (Auto) 73.2 H, Lymph % (Auto) 13.8 L , [place] % (Auto) 8.6, Eos % (Auto) 2.5, Baso % (Auto) 0.4, Absolute Neuts (auto) 5.9, Absolute Lymphs (auto) 1.12, Nucleated RBC % 0 09/20/20 20:57: Sodium 133 L, Potassium 3.2 L, Chloride 97 L, Carbon Dioxide 30.0, Anion Gap 6, BUN 5 L, Creatinine 0.74, Estim Creat Clear Calc 88.93, Est GFR (MDRD) Af Amer 108, Est GFR (MDRD) Non-Af 89, BUN/Creatinine Ratio 6.7 L, Glucose 155 H, Calcium 8.9, Total Bilirubin 2.30 H, AST 111 H, ALT 73 H, Alkaline Phosphatase 137 H, Total Protein 7.1, Albumin 2.6 L, Globulin 4.5 H, Albumin/Globulin Ratio 0.6 L, Lipase 401 H 09/20/20 20:57: PT 13.6, INR 1.1, APTT 32.9 09/20/20 20:57: Magnesium 2.1 09/20/20 20:57: Hepatitis A IgM Ab Pending, Hepatitis A Ab Total Pending, Hep Bs Antigen Pending, Hep B Core Total Ab Pending, Hep B Core IgM Ab Pending 09/20/20 23:43: POC Glucose 148 H 09/21/20 05:32: WBC 7.1, RBC 3.31 L, Hgb 11.7 L, Hct 35.0 L, MCV 105.7 H, MCH 35.3 H, MCHC 33.4, RDW Std Deviation 46.8 H, RDW Coeff of Teressa 11.9, Plt Count 167, MPV 9.1, Immature Gran % (Auto) 1.800 H, Neut % (Auto) 65.2, Lymph % (Auto) 19.1, [place] % (Auto) 10.4 H, Eos % (Auto) 2.8, Baso % (Auto) 0.7, Absolute Neuts (auto) 4.6, Absolute Lymphs (auto) 1.35, Nucleated RBC % 0 09/21/20 05:32: Sodium 138, Potassium 3.6, Chloride 104, Carbon Dioxide 31.0, Anion Gap 3 L, BUN 5 L, Creatinine 0.60, Estim Creat Clear Calc 109.68, Est GFR (MDRD) Af Amer 139, Est GFR (MDRD) Non-Af 115, BUN/Creatinine Ratio 8.4 L, Glucose 120 H, Calcium 8.0 L, Total Bilirubin 1.50 H, AST 59 H, ALT 55, Alkaline Phosphatase 110, Total Protein 5.7 L, Albumin 2.1 L, Globulin 3.6, Albumin/Globulin Ratio 0.6 L, Lipase 338 09/21/20 05:37: POC Glucose 115 H 09/21/20 11:46: POC Glucose 149 H Current Medications Acetaminophen (Acetaminophen 325 Mg Tablet) 650 mg PO Q6H PRN PRN PRN Reason: Pain Score 1-10/Temp > 100.7 F Al Hydroxide/Mg Hydroxide (Mag Hydrox/Al Hydrox/Simeth 30 Ml Udc) 30 ml PO Q6H PRN PRN PRN Reason: Gastric Burning Albuterol Sulfate (Albuterol 2.5 Mg/3 Ml Vial.Neb.) 2.5 mg INHALATION Q2H PRN PRN PRN Reason: Dyspnea, wheezing Alprazolam (Alprazolam 0.25 Mg Tablet) 0.25 - 0.5 mg PO BID PRN PRN PRN Reason: ANXIETY Doxepin HCl (Doxepin Hcl 50 Mg Capsule) 150 mg PO QHS [facility] Last Admin: 09/20/20 23:55 Dose: 150 mg Documented by: Duloxetine HCl (Duloxetine Hcl 60 Mg Capsule) 60 mg PO QHS ABE Gabapentin (Gabapentin 300 Mg Capsule) 300 mg PO TID [facility] Last Admin: 09/21/20 05:44 Dose: 300 mg Documented by: Guaifenesin (Guaifenesin 10 Ml Udc (200mg/10ml)) 20 ml PO Q4H PRN PRN PRN Reason: COUGH Hydralazine HCl (Hydralazine 20 Mg/Ml Vial) 10 mg IV Q4H PRN PRN PRN Reason: SBP > 160 Hydromorphone HCl (Hydromorphone 1 Mg/Ml Syringe) 1 mg IV Q4H PRN PRN PRN Reason: Pain Score 4-10 Last Admin: 09/21/20 09:21 Dose: 1 mg Documented by: Sodium Chloride () 1,000 mls @ 150 mls/hr IV .Q6H40M [facility] Last Admin: 09/21/20 11:48 Dose: 150 mls/hr Documented by: Insulin Human Lispro (Insulin Lispro 100 Unit/Ml Insuln.Pen) 0 unit SC Q6 [facility]; Protocol Last Admin: 09/21/20 11:47 Dose: Not Given Documented by: Losartan Potassium (Losartan Potassium 50 Mg Tablet) 50 mg PO DAILY [facility] Last Admin: 09/21/20 09:20 Dose: 50 mg Documented by: Magnesium Hydroxide (Magnesium Hydroxide 30 Ml Udc) 30 ml PO DAILY PRN PRN PRN Reason: Constipation Nicotine (Nicotine 14 Mg Patch) 14 mg TD DAILY [facility] Last Admin: 09/21/20 09:20 Dose: Not Given Documented by: Ondansetron HCl (Ondansetron 4 Mg/2 Ml Vial) 4 mg IV Q8H PRN PRN PRN Reason: NAUSEA/VOMITING Oxycodone HCl (Oxycodone 5 Mg Tablet) 5 mg PO Q4H PRN PRN PRN Reason: Pain Score 4-5 Last Admin: 09/21/20 05:44 Dose: 5 mg Documented by: Prochlorperazine Edisylate (Prochlorperazine 10 Mg/2 Ml Vial) 5 mg IV Q4H PRN PRN PRN Reason: Breakthrough nausea/vomiting Psyllium Hydrophilic Mucilloid (Psyllium 1 Packet) 1 packet PO DAILY PRN PRN PRN Reason: Constipation Senna/Docusate Sodium (Senna/Docusate Sodium 1 Tablet) 2 tablet PO BID PRN PRN PRN Reason: Constipation Sodium Chloride (0.9% Saline Lock 10 Ml Syringe) 10 - 40 ml IV UD PRN PRN Reason: SALINE FLUSH Last Admin: 09/21/20 09:21 Dose: 10 ml Documented by: Temazepam (Temazepam 15 Mg Capsule) 15 mg PO QHS PRN PRN PRN Reason: INSOMNIA Throat Lozenges (Benzocaine/Menthol 1 Lozenge) 1 lozenge MUCOUS MEM Q2H PRN PRN PRN Reason: SORE THROAT Discharge Diet: 1800 Calorie Control Diet Discharge Activity: Return to Normal Activity Home Medications: Medications to take at Discharge Duloxetine Hcl [Cymbalta] 60 mg PO QHS 04/30/18 Doxepin HCl 150 mg PO QHS 08/30/19 Gabapentin [Neurontin] 300 mg PO TID 08/30/19 Acetaminophen [Tylenol Tablet] 650 mg PO Q6H PRN PRN tab 09/02/19 ALPRAZolam [Xanax] 1 - 2 tablet PO BID PRN PRN 09/16/20 Albuterol Sulfate [Proair Respiclick] 90 mcg IH BID PRN 09/16/20 Eletriptan Hydrobromide [Relpax] 40 mg PO DAILY PRN 09/16/20 Losartan Potassium [Cozaar] 50 mg PO DAILY 09/16/20 Meloxicam [Mobic] 15 mg PO DAILY PRN 09/16/20 Nicotine [Nicoderm] 14 mg TRANSDERM. DAILY 09/16/20 Ondansetron [Zofran Odt] 4 mg PO Q8H PRN PRN 09/16/20 metFORMIN HCl [Glucophage] 500 mg PO BIDCM 09/16/20 proCHLORPERazine tablet [Compazine tablet] 10 mg PO Q6H PRN PRN 09/16/20 Primary Care Physician: Valerie Mullins MD [Primary Care Provider] - Please follow up with your Primary Care Physician in: IN 1 WEEK Please Follow Up With: Lynda Brooks MD When: IN 2-3 DAYS Disposition: Home Minutes spent on discharge:: 35 Patient Condition:: Stable Medical Necessity - Tobacco Use Smoking Status: Former smoker Tobacco Use: Non-smoker Meaningful Use Info Meaningful Use Diagnoses (Choose all that apply): None applicable OBSV E&M: 64235 Observation care discharge
[2020-09-21 13:25] VITALS: BP 119/69; PULSE 80; RESP 16; TEMP 37.1; O2SAT 98
[2020-09-23 08:09] LABS: HEPATITIS B SURFACE AG Negative (Negative); Hepatitis A AB, Total Negative (Negative); Hepatitis A IgM Antibody Negative (Negative); Hepatitis B Core AB IgM Negative (Negative); Hepatitis B Core Ab Total Negative (Negative); Hepatitis C Ab <0.1 s/co ratio (0.0-0.9)
[2020-09-23 12:45] LABS: Hep B Surface Antibodies Non Reactive (.)
== END 2020-09-21 14:18 | disposition home or self-care (01) ==
LOC: ED 21:04 → MS3 22:56
PROVIDERS: Admitting Provider Family Medicine; Emergency Provider Emergency Medicine; PCP Internal Medicine; Visit Provider Internal Medicine
DX: K85.90 Acute pancreatitis without necrosis or infection, unspecified (principal); K70.0 Alcoholic fatty liver; K86.1 Other chronic pancreatitis; F41.8 Other specified anxiety disorders; K56.7 Ileus, unspecified; I10 Essential (primary) hypertension; E78.5 Hyperlipidemia, unspecified; E11.42 Type 2 diabetes mellitus with diabetic polyneuropathy; F10.21 Alcohol dependence, in remission; E87.6 Hypokalemia; Z87.891 Personal history of nicotine dependence; Z79.899 Other long term (current) drug therapy; Z79.84 Long term (current) use of oral hypoglycemic drugs
CPT/HCPCS: 74022; 80053; 82962; 83690; 83735; 85025; 85610; 85730; 86704; 86705; 86706; 86708; 86709; 86803; 87340; 96361; 96374; 96375; 96376; 99218; 99284; 99406; J7030; A4216; G0378; J2405

== ENCOUNTER 2020-10-01 22:01 | Emergency (ER) | payer MEDICAID, SELFPAY ==
[2020-10-01 22:04] VITALS: BP 88/56; PULSE 95; RESP 16; TEMP 36.5; O2SAT 94; BMI 21.3
[2020-10-01 22:16] VITALS: BP 89/57; PULSE 89; RESP 16; O2SAT 95
[2020-10-01 22:21] LABS: Bedside Glucose 158 mg/dL (70-110)
--- NOTE | 2020-10-01 22:34 | CT_ITS ---
History: altered mental status EXAMINATION: CT Head or Brain W/O Contrast Injection . TECHNIQUE: Multiple axial images were obtained of the head without intravenous contrast. A radiation dose optimization technique was used for this scan. IV Contrast dosage and agent: None 231 COMPARISON: None FINDINGS: BRAIN PARENCHYMA: No intra- or extra-axial hemorrhage. No evidence of acute infarct. No intracranial mass or mass effect. There is preservation of the santo/white matter interface. Posterior fossa structures are unremarkable. CSF SPACES: Appropriate for age. No hydrocephalus. Basal cisterns are patent. CALVARIUM, SKULL BASE, PARANASAL SINUSES AND MASTOID AIR CELLS: Paranasal sinuses are clear. No discrete lytic or blastic abnormalities. ORBITS: Both globes, extraocular muscles, optic nerves and retrobulbar fat appear unremarkable. ASPECTS Score for Acute Strokes: 10 CT/Brain/Head without Contrast IMPRESSION: Negative Brain CT without contrast. Individualized dose optimization techniques were used for this CT. at 2302 Reported and signed by: Ozzie Nascimento MD Electronically Signed: Ozzie Nascimento MD at 23:01 EDT Tel , Service support ,
--- NOTE | 2020-10-01 22:35 | EKG12_ITS ---
Test Reason : ALT LOC Blood Pressure : / mmHG Vent. Rate : 081 BPM Atrial Rate : 081 BPM P-R Int : 176 ms QRS Dur : 082 ms QT Int : 396 ms P-R-T Axes : 051 059 044 degrees QTc Int : 460 ms Normal sinus rhythm Normal ECG Confirmed by RAFAEL BECK, TOMY ([id number]), editor managing newspaper AMAYA PITTMAN ([id number]) on 10/06/2020 12:24:28 PM Referred By: BB Confirmed By:TOMY HALL MD
--- NOTE | 2020-10-01 22:37 | EX.ED.DYSGE1 ---
HPI History of Present Illness Chief Complaint: Alt LOC Informant: patient and other (medical staff) Onset/Context/Timing Onset: Today Context: Gradual Onset Timing: Continuous Quality: sleepy Current Severity: Severe Maximum Severity: Severe Worsened by: n/a Relieved by: n/a Associated Symptoms Associated Symptoms: denies Narrative Narrative: Patient was in the sleep lab tonight and apparently went to the bathroom, slumped over, extremely sleepy and lethargic, and was sent to the ER out of concern. The patient was sleeping on my initial evaluation, I was able to wake her up and it was fairly easy. She is slurring her speech and states that she is exhausted and just very tired. She states that it currently is around 10-11 PM and she has been up since 4:30 in the morning, she was helping out of her mother. She denies any recent injury. She states she took her nighttime medications in addition to a Xanax that she is prescribed, because she was anxious. She did not drink any alcohol or take more than a single Xanax and denies any other illicit drug use. [facility] Medical History (Updated 10/01/20 @ 23:[address] Preet Lorenzana MD) Alcoholism Anxiety Diabetes HLD (hyperlipidemia) HTN (hypertension) Nicotine abuse Home Medications duloxetine 60 mg PO QHS 04/30/18 [History Last Taken 09/19/20] doxepin 150 mg PO QHS 08/30/19 [History Last Taken 09/19/20] gabapentin 300 mg PO TID 08/30/19 [History Last Taken 09/20/20] acetaminophen 650 mg PO Q6H PRN PRN tab 09/02/19 [Rx Last Taken Unknown] albuterol sulfate 90 mcg IH BID PRN 09/16/20 [History Last Taken 09/20/20] alprazolam 1 - 2 tablet PO BID PRN PRN 09/16/20 [History Last Taken Unknown] eletriptan 40 mg PO DAILY PRN 09/16/20 [History Last Taken 09/20/20] losartan 50 mg PO DAILY 09/16/20 [History Last Taken 09/20/20] meloxicam 15 mg PO DAILY PRN 09/16/20 [History Last Taken 09/20/20] metformin 500 mg PO BIDCM 09/16/20 [History Last Taken 09/20/20] nicotine 14 mg TRANSDERM. DAILY 09/16/20 [History Last Taken 09/20/20] ondansetron 4 mg PO Q8H PRN PRN 09/16/20 [History Last Taken Unknown] prochlorperazine maleate 10 mg PO Q6H PRN PRN 09/16/20 [History Last Taken Unknown] Allergy/AdvReac Type Severity Reaction Status Date / Time azithromycin [From Zithromax] AdvReac Diarrhea Verified 10/01/20 22:12 codeine AdvReac Nausea Verified 10/01/20 22:12 promethazine [From Phenergan] AdvReac Vomiting Verified 10/01/20 22:12 Social History Smoking Status: Former smoker ROS ROS ED Constitutional Constitutional ED: Reports lethargy and snoring; Denies chills or fever(s) Eyes Eyes: Denies change in vision or diplopia ENT ENT ED: Denies rhinorrhea or sore throat Cardiovascular Cardiovascular: Denies chest pain or palpitations Respiratory/Chest Respiratory/Chest: Denies cough or dyspnea Gastrointestinal Gastrointestinal: Denies abdominal pain, diarrhea, nausea or vomiting Genitourinary Genitourinary ED: Denies dysuria or hematuria Musculoskeletal Musculoskeletal: Denies back pain or neck pain Integumentary Denies abscess or rash Neurologic Neurologic: Reports paresthesias and other Details: Patient states she has chronic paresthesias distally in all 4 extremities that are stable and unchanged ; Denies headache(s) or weakness Psychiatric Psychiatric: Denies anxiety or suicidal thoughts EXAM Physical Exam Const Vital Signs: 10/01/20 22:04 10/01/20 22:16 10/01/20 23:10 Temperature 97.7 F L Temperature Source Oral Pulse Rate 95 89 92 Respiratory Rate 16 16 14 Blood Pressure 88/56 L 89/57 L 109/68 Blood Pressure Mean 66 67 81 Pulse Ox 94 95 99 Oxygen Delivery Method Room Air Room Air Room Air 10/01/20 23:28 Temperature Temperature Source Pulse Rate 88 Respiratory Rate 14 Blood Pressure 93/57 L Blood Pressure Mean Pulse Ox 98 Oxygen Delivery Method Positive well nourished and well developed General Appearance ED: well developed, NAD and other Sleeping/lethargic. Awakes to light stimulation and repeated verbal stimulation. GCS 14. HEENT Reports moist mucous membranes normocephalic and atraumatic Eyes PERRL and EOMs intact bilaterally Eyes Narrative: Pupils 3 mm. Neck full ROM, no lymphadenopathy and supple Chest Wall inspection of chest normal and palpation of chest normal Resp normal respiratory effort and clear to auscultation bilaterally Cardio regular rate, regular rhythm and no murmurs Rate: Negative for tachycardic GI non-tender and non-distended Auscultation: normoactive bowel sounds Palpation: soft Back/Spine no CVA tenderness General Back: other FROM Extremity normal to inspection General Extremety ED: Negative for edema, pulses abnormal or tenderness General Extremity: Negative for edema or pulses abnormal Neuro oriented x3, CN's II-XII intact bilaterally and no sensory deficits noted Sensorium / Orientation: awake, alert and lethargic Speech: speech abnormal Details: Positive for slurred (Mildly); Negative for expressive aphasia or receptive aphasia Motor Exam: strength 5/5 throughout Psych mental status grossly normal Skin no rashes or lesions noted and no wounds MDM MDM MDM Narrative Medical decision making narrative: Patient denies drinking any alcohol, yet her level is 242 indicating recent ingestion. Given that she took alprazolam along with that alcohol level, that certainly would explain why she is so sleepy and slurring her speech a little. I do not think the patient is having a stroke since she has no other abnormal neurologic findings. We will discuss with the sleep lab if they are comfortable having her go back, I am happy allowing her to. Her blood pressure is 109/68 and the rest of her vital signs are normal. Sleep lab states they cannot take the patient back because it is too late and she has a high alcohol level. Patient will be observed here until she can find a ride home. Lab Data Attestation: I reviewed the patient's lab results. Labs: Laboratory Results - last 24 hr 10/01/20 10/01/20 10/01/20 22:05 22:05 22:05 WBC 7.7 RBC 3.69 L Hgb 12.9 Hct 37.6 MCV 101.9 H MCH 35.0 H MCHC 34.3 RDW Std Deviation 44.7 H RDW Coeff of Teressa 11.9 Plt Count 346 MPV 9.8 Immature Gran % (Auto) 0.600 Neut % (Auto) 56.9 Lymph % (Auto) 31.3 [place] % (Auto) 6.2 Eos % (Auto) 4.4 Baso % (Auto) 0.6 Absolute Neuts (auto) 4.4 Absolute Lymphs (auto) 2.41 Nucleated RBC % 0 Sodium 141 Potassium 3.3 L Chloride 106 Carbon Dioxide 25.0 Anion Gap 10 BUN 8 Creatinine 0.90 Estim Creat Clear Calc 73.12 Est GFR (MDRD) Af Amer 87 Est GFR (MDRD) Non-Af 72 BUN/Creatinine Ratio 8.9 L Glucose 162 H Calcium 9.2 Troponin I < 0.015 Ethyl Alcohol 242.0 POC Glucose 10/01/20 22:15 WBC RBC Hgb Hct MCV MCH MCHC RDW Std Deviation RDW Coeff of Teressa Plt Count MPV Immature Gran % (Auto) Neut % (Auto) Lymph % (Auto) [place] % (Auto) Eos % (Auto) Baso % (Auto) Absolute Neuts (auto) Absolute Lymphs (auto) Nucleated RBC % Sodium Potassium Chloride Carbon Dioxide Anion Gap BUN Creatinine Estim Creat Clear Calc Est GFR (MDRD) Af Amer Est GFR (MDRD) Non-Af BUN/Creatinine Ratio Glucose Calcium Troponin I Ethyl Alcohol POC Glucose 158 H Radiography Chest X-Ray - ED: 1 View, Read by ED Physician, Normal and No Acute Disease Diagnostic Testing: Radiology Impression Brain CT 10/01/20 22:34 IMPRESSION: Negative Brain CT without contrast. Individualized dose optimization techniques were used for this CT. at 2302 Reported and signed by: Ozzie Nascimento MD Electronically Signed: Ozzie Nascimento MD at 23:01 EDT Tel , Service support , Chest X-Ray 10/01/20 22:55 IMPRESSION: Normal. at 2306 Reported and signed by: Ozzie Nascimento MD Electronically Signed: Ozzie Nascimento MD at 23:05 EDT Tel , Service support , EKG Initial EKG: Attestation: I personally reviewed and interpreted this EKG as follows: Interpretation: Sinus Rhythm and No Acute Injury Pattern (normal ekg) Prior EKG tracings: available for review Prior: Unchanged Discharge Plan Triage Chief Complaint: Alt LOC ED Provider: Preet Lorenzana Dx/Rx/DC Orders Clinical Impression: Fatigue, Alcohol intoxication Instructions: ED Alcohol Intoxication Prescriptions: No Action duloxetine 20 MG capsule 60 mg PO QHS RF: 0 doxepin 150 MG capsule 150 mg PO QHS RF: 0 gabapentin 100 MG capsule 300 mg PO TID RF: 0 acetaminophen 325 MG tablet 650 mg PO Q6H PRN PRN (Reason: pain -03/08) RF: 0 losartan 50 MG tablet 50 mg PO DAILY RF: 0 metformin 500 MG tablet 500 mg PO BIDCM RF: 0 nicotine 14 MG patch 14 mg TRANSDERM. DAILY RF: 0 meloxicam 15 MG tablet 15 mg PO DAILY PRN (Reason: pain) RF: 0 alprazolam 0.25 MG tablet 1 - 2 tablet PO BID PRN PRN (Reason: Anxiety) RF: 0 eletriptan 40 MG tablet 40 mg PO DAILY PRN (Reason: migraine headaches) RF: 0 albuterol sulfate 90 MCG aerosol powdr breath activated 90 mcg IH BID PRN (Reason: breathing) RF: 0 ondansetron 4 MG tablet 4 mg PO Q8H PRN PRN (Reason: Nausea) RF: 0 prochlorperazine maleate 5 MG tablet 10 mg PO Q6H PRN PRN (Reason: Nausea) RF: 0 Primary Care Provider: Valerie Mullins Referrals: Valerie Mullins MD [Primary Care Provider] - As Needed Disposition Disposition: Home, self care
--- NOTE | 2020-10-01 22:55 | RAD_ITS ---
HISTORY: altered mental status EXAM: XR Chest 1 View: COMPARISON: September 20 FINDINGS: # of images incl. paperwork: 1 Lungs are clear. Heart is not enlarged. No acute osseous pathology perceived. Pulmonary vascularity is distinct. No effusions. RAD/Chest 1 View (Portable) IMPRESSION: Normal. at 2306 Reported and signed by: Ozzie Nascimento MD Electronically Signed: Ozzie Nascimento MD at 23:05 EDT Tel , Service support ,
[2020-10-01 23:02] LABS: Absolute Lymphocyte Count 2.41 X10^3/uL (0.83-4.51); Absolute Neutrophil Count 4.4 X10^3/uL (2.0-7.7); Basophil# 0.05 X10^3/uL; Basophil% 0.6 % (0-1); Eosinophil# 0.34 X10^3/uL; Eosinophils% 4.4 % (0-5); Hematocrit 37.6 % (37-47); Hemoglobin 12.9 g/dL (12.0-15.0); Lymphocyte # 2.41 X10^3/ul (0.83-4.51); Lymphocyte % 31.3 % (19-41); Mean Corp Hgb Conc 34.3 g/dL (32-36); Mean Corpuscular Volume 101.9 fL (81-99); Mean Platelet Vol. 9.8 fl (6.2-12.0); Monocyte# 0.48 X10^3/uL; Monocyte% 6.2 % (0-10); NRBC Flagged by Analyzer 0 % (0-5); Neutrophil # 4.38 X10^3/uL (2.7-7.7); Neutrophil % 56.9 % (47-70); Platelet Count 346 K/mm3 (150-450); RBC Distribution Width CV 11.9 % (11.6-14.6); RBC Distribution Width SD 44.7 fl (35.1-43.9); Red Blood Count 3.69 M/mm3 (4.2-5.4); White Blood Count 7.7 K/mm3 (4.4-11.0)
[2020-10-01 23:10] VITALS: BP 109/68; PULSE 92; RESP 14; O2SAT 99
[2020-10-01 23:16] LABS: Anion Gap 10 (5-15); BUN 8 mg/dL (7-18); BUN/Creat Ratio 8.9 RATIO (10-20); Calcium,Total 9.2 mg/dL (8.5-10.1); Chloride 106 mmol/L (98-107); EST Glomerular Filtration Rate 72 mL/min (>60); Est Glom Filt Rate - Afr Amer 87 mL/min (>60); Estimated Creatinine Clearance 73.12 ml/min; Glucose 162 mg/dL (74-106); Potassium 3.3 mmol/L (3.5-5.1); Sodium Level 141 mmol/L (136-145)
[2020-10-01 23:28] VITALS: BP 93/57; PULSE 88; RESP 14; O2SAT 98
[2020-10-02 01:20] VITALS: RESP 14
[2020-10-02 02:18] VITALS: RESP 12
[2020-10-02 03:43] VITALS: PULSE 84; RESP 16; O2SAT 98
== END 2020-10-02 03:44 | disposition home or self-care (01) ==
LOC: ED 10-02 00:09
PROVIDERS: Emergency Provider Emergency Medicine; PCP Internal Medicine
DX: F10.229 Alcohol dependence with intoxication, unspecified (principal); Y90.8 Blood alcohol level of 240 mg/100 ml or more; E11.9 Type 2 diabetes mellitus without complications; E78.5 Hyperlipidemia, unspecified; I10 Essential (primary) hypertension; F41.9 Anxiety disorder, unspecified; Z79.84 Long term (current) use of oral hypoglycemic drugs; Z79.899 Other long term (current) drug therapy; Z87.891 Personal history of nicotine dependence
CPT/HCPCS: 70450; 71045; 80048; 82077; 82962; 84484; 85025; 93005; 96360; 99283; J7030; A4216

== ENCOUNTER → 2020-10-29 20:00 | Outpatient (CLI) | payer MEDICAID, SELFPAY | PROVIDERS: PCP Internal Medicine; Referring Provider Internal Medicine; Visit Provider Internal Medicine | DX: G47.10 Hypersomnia, unspecified (principal); R06.83 Snoring | CPT/HCPCS: 95810 ==

== ENCOUNTER 2021-06-21 19:28 | Inpatient (IN) | payer MEDICAID, SELFPAY ==
[2021-06-21 19:29] VITALS: BP 144/86; PULSE 96; RESP 16; TEMP 36.1; O2SAT 97
--- NOTE | 2021-06-21 19:40 | CT_ITS ---
STUDY: CT ABDOMEN AND PELVIS WITH CONTRAST REASON FOR EXAM: Female, 45 years old. Diffuse abdominal pain, elevated LFTs RADIATION DOSAGE (If Supplied By Facility): CTDIvol = ( 8.15 ) mGy, DLP = ( 307.46 ) mGycm TECHNIQUE: Transaxial images were obtained from the dome of the diaphragm to the symphysis pubis without oral contrast. IV 100mL Isovue-[id number] was administered. Sagittal and coronal images were reconstructed. Individualized dose optimization techniques were used for this CT. COMPARISON: 09/18/2020 FINDINGS: The visualized lung bases are unremarkable. The visualized portions of the heart are within normal limits. There is decreased attenuation of the liver consistent with steatosis. Stable area of hypoattenuation within the right lobe. Normal gallbladder and extrahepatic biliary system. Normal spleen. There is peripancreatic fluid with peripancreatic inflammatory changes consistent with acute pancreatitis. No demonstrated phlegmon or abscess. There is subtle thickening of the gastric antrum and proximal duodenum consistent with associated gastritis and duodenitis Normal bilateral adrenal glands. Normal right kidney. Normal left kidney. Normal visualized stomach. Multiple nondistended fluid-filled small bowel loops are noted consistent with ileus. . Normal colon. The appendix is visualized and appears normal. Appendix seen on coronal recon images 54 through 61 Normal abdominal aorta. Normal inferior vena cava. Normal retroperitoneum. Normal urinary bladder. Normal-appearing uterus. No suspicious cystic mass small amount of fluid in the dependent pelvis Normal abdominal wall. Normal osseous structures. CT/Abdomen/Pelvis W IV Cont ONLY IMPRESSION: Acute pancreatitis with associated gastritis and duodenitis. No demonstrated phlegmon or abscess. Stable fatty infiltration of the liver with stable hypoattenuation in the right lobe. No new suspicious lesion Small bowel ileus Normal appendix visualized Electronically Signed: Obinna Rodriguez MD at 21:25 EST , Service support ,
--- NOTE | 2021-06-21 19:42 | EDS_ITS ---
HPI History of Present Illness Chief Complaint: Abd Pain Informant: patient Onset/Context/Timing Onset: Today Context: Gradual Onset Current Severity: Moderate Maximum Severity: Moderate Narrative Narrative: Patient presents secondary to upper abdominal pain with nausea and vomiting. Symptoms started approximately 12 hours ago and have been progressively worsening. She denies fever or chills. She reports her abdomen has become increasingly distended. She does not feel as if she has passed gas. She does have a history of pancreatitis that feels similar. No prior problems with her gallbladder. She was told that her pancreatitis in the past been caused by alcoholism. She has not had a drink since 2019. [facility] Medical History Alcoholism Anxiety Breast implant status Diabetes HLD (hyperlipidemia) HTN (hypertension) Nicotine abuse Home Medications duloxetine 60 mg PO QHS 04/30/18 [History Last Taken 09/19/20] doxepin 150 mg PO QHS 08/30/19 [History Last Taken 09/19/20] gabapentin 300 mg PO TID 08/30/19 [History Last Taken 09/20/20] acetaminophen 650 mg PO Q6H PRN PRN tab 09/02/19 [Rx Last Taken Unknown] albuterol sulfate 90 mcg IH BID PRN 09/16/20 [History Last Taken 09/20/20] alprazolam 1 - 2 tablet PO BID PRN PRN 09/16/20 [History Last Taken Unknown] eletriptan 40 mg PO DAILY PRN 09/16/20 [History Last Taken 09/20/20] losartan 50 mg PO DAILY 09/16/20 [History Last Taken 09/20/20] meloxicam 15 mg PO DAILY PRN 09/16/20 [History Last Taken 09/20/20] metformin 500 mg PO BIDCM 09/16/20 [History Last Taken 09/20/20] ondansetron 4 mg PO Q8H PRN PRN 09/16/20 [History Last Taken Unknown] prochlorperazine maleate 10 mg PO Q6H PRN PRN 09/16/20 [History Last Taken Unknown] Allergy/AdvReac Type Severity Reaction Status Date / Time azithromycin [From Zithromax] AdvReac Diarrhea Verified 06/21/21 19:29 codeine AdvReac Nausea Verified 06/21/21 19:29 promethazine [From Phenergan] AdvReac Vomiting Verified 06/21/21 19:29 Social History Smoking Status: Current every day smoker tobacco type: cigarettes ROS ROS ED Constitutional Constitutional ED: Denies chills or fever(s) Eyes Eyes: Denies change in vision ENT ENT ED: Denies sore throat Cardiovascular Cardiovascular: Denies chest pain Respiratory/Chest Respiratory/Chest: Denies cough or dyspnea Gastrointestinal Gastrointestinal: Reports abdominal pain, nausea and vomiting; Denies diarrhea Genitourinary Genitourinary ED: Denies dysuria Musculoskeletal Musculoskeletal: Denies back pain Integumentary Denies rash Neurologic Neurologic: Denies headache(s) or weakness Allergic/Immunologic Allergic/Immunologic ED: Denies urticaria EXAM Physical Exam Const Vital Signs: 06/21/21 19:29 Temperature 97.0 F L Temperature Source Temporal Pulse Rate 96 Respiratory Rate 16 Blood Pressure 144/86 H Blood Pressure Mean 105 Pulse Ox 97 Oxygen Delivery Method Room Air Positive well nourished and well developed General Appearance ED: well developed HEENT Reports moist mucous membranes Eyes PERRL and EOMs intact bilaterally Neck supple Chest Wall inspection of chest normal and palpation of chest normal Resp normal respiratory effort and clear to auscultation bilaterally Cardio regular rate and regular rhythm GI GI Narrative: Epigastric and left lower quadrant tenderness to palpation. No g uarding or rebound. Bowel sounds are auscultated. Palpation: soft Extremity normal to inspection Neuro oriented x3 Sensorium / Orientation: alert Psych mental status grossly normal Skin no rashes or lesions noted MDM MDM MDM Narrative Medical decision making narrative: Patient given morphine and Zofran along with IV fluids. Lab work and CT abdomen pelvis with IV contrast obtained. Lab Data Attestation: I reviewed the patient's lab results. Labs: Laboratory Results - last 24 hr 06/21/21 06/21/21 19:55 19:55 WBC 8.0 RBC 3.89 L Hgb 13.5 Hct 39.6 MCV 101.8 H MCH 34.7 H MCHC 34.1 RDW Std Deviation 45.6 H RDW Coeff of Teressa 12.3 Plt Count 239 MPV 9.4 Immature Gran % (Auto) 0.600 Neut % (Auto) 72.7 H Lymph % (Auto) 16.1 L [place] % (Auto) 9.0 Eos % (Auto) 1.2 Baso % (Auto) 0.4 Absolute Neuts (auto) 5.8 Absolute Lymphs (auto) 1.29 Nucleated RBC % 0 Sodium 137 Potassium 3.7 Chloride 96 L Carbon Dioxide 31.0 Anion Gap 10 BUN 7 Creatinine 1.09 H Estim Creat Clear Calc 57.42 Est GFR (MDRD) Af Amer 69 Est GFR (MDRD) Non-Af 57 L BUN/Creatinine Ratio 6.4 L Glucose 138 H Calcium 12.1 H Total Bilirubin 1.40 H Direct Bilirubin 0.61 H AST 60 H ALT 51 Alkaline Phosphatase 119 H Total Protein 7.3 Albumin 3.2 Globulin 4.1 Lipase 3211 H Radiography Diagnostic Testing: Clinical Impression(s) from Imaging Studies Abdomen/Pelvis CT 06/21/21 19:40 IMPRESSION: Acute pancreatitis with associated gastritis and duodenitis. No demonstrated phlegmon or abscess. Stable fatty infiltration of the liver with stable hypoattenuation in the right lobe. No new suspicious lesion Small bowel ileus Normal appendix visualized Electronically Signed: Obinna Rodriguez MD at 21:25 EST , Service support , Treatment and Re-Evaluation Comments:: Lab work significant for elevated lipase at 3211. CT scan reveals evidence of acute pancreatitis with gastritis and duodenitis. No evidence of phlegmon or abscess. Patient was given second dose of morphine and Zofran to help with pain control. Patient be discussed with hospitalist for admission and further treatment. Discharge Plan Triage Chief Complaint: Abd Pain ED Provider: Edith Mccloud Dx/Rx/DC Orders Clinical Impression: Acute pancreatitis Instructions: ED Pancreatitis Prescriptions: No Action duloxetine 20 MG capsule 60 mg PO QHS RF: 0 doxepin 150 MG capsule 150 mg PO QHS RF: 0 gabapentin 100 MG capsule 300 mg PO TID RF: 0 acetaminophen 325 MG tablet 650 mg PO Q6H PRN PRN (Reason: pain 1-03/08) RF: 0 losartan 50 MG tablet 50 mg PO DAILY RF: 0 metformin 500 MG tablet 500 mg PO BIDCM RF: 0 meloxicam 15 MG tablet 15 mg PO DAILY PRN (Reason: pain) RF: 0 alprazolam 0.25 MG tablet 1 - 2 tablet PO BID PRN PRN (Reason: Anxiety) RF: 0 eletriptan 40 MG tablet 40 mg PO DAILY PRN (Reason: migraine headaches) RF: 0 albuterol sulfate 90 MCG aerosol powdr breath activated 90 mcg IH BID PRN (Reason: breathing) RF: 0 ondansetron 4 MG tablet 4 mg PO Q8H PRN PRN (Reason: Nausea) RF: 0 prochlorperazine maleate 5 MG tablet 10 mg PO Q6H PRN PRN (Reason: Nausea) RF: 0 Primary Care Provider: Valerie Mullins Referrals: Valerie Mullins MD [Primary Care Provider] - Disposition Disposition: Acute Care Hospital [facility]
[2021-06-21] MEDS: Morphine 4 MG/ML Syringe IV ×2 (20:02→21:24)
[2021-06-21] MEDS: Ondansetron 4 MG/2 ML Vial IV ×2 (20:02→22:13)
[2021-06-21 20:05] LABS: Absolute Lymphocyte Count 1.29 X10^3/uL (0.83-4.51); Absolute Neutrophil Count 5.8 X10^3/uL (2.0-7.7); Basophil# 0.03 X10^3/uL; Basophil% 0.4 % (0-1); Eosinophils% 1.2 % (0-5); Hematocrit 39.6 % (37-47); Hemoglobin 13.5 g/dL (12.0-15.0); Lymphocyte # 1.29 X10^3/ul (0.83-4.51); Lymphocyte % 16.1 % (19-41); Mean Corp Hgb Conc 34.1 g/dL (32-36); Mean Corpuscular Hgb 34.7 pg (27.0-32.0); Mean Corpuscular Volume 101.8 fL (81-99); Mean Platelet Vol. 9.4 fl (6.2-12.0); Monocyte# 0.72 X10^3/uL; NRBC Flagged by Analyzer 0 % (0-5); Neutrophil # 5.82 X10^3/uL (2.7-7.7); Neutrophil % 72.7 % (47-70); Platelet Count 239 K/mm3 (150-450); RBC Distribution Width CV 12.3 % (11.6-14.6); RBC Distribution Width SD 45.6 fl (35.1-43.9); Red Blood Count 3.89 M/mm3 (4.2-5.4)
[2021-06-21] MEDS: 0.9% Normal Saline 1,000 ML 1000 ML IV (20:06)
[2021-06-21 20:27] LABS: AST(SGOT) 60 U/L (15-37); Alanine Aminotransfer ALT/SGPT 51 U/L (13-56); Albumin, Serum 3.2 g/dL (3.2-5.0); Alkaline Phosphatase 119 U/L (45-117); Anion Gap 10 (5-15); BUN 7 mg/dL (7-18); BUN/Creat Ratio 6.4 RATIO (10-20); Bilirubin, Direct 0.61 mg/dL (0.00-0.30); Calcium,Total 12.1 mg/dL (8.5-10.1); Chloride 96 mmol/L (98-107); Creatinine, Serum 1.09 mg/dL (0.55-1.02); EST Glomerular Filtration Rate 57 mL/min (>60); Est Glom Filt Rate - Afr Amer 69 mL/min (>60); Estimated Creatinine Clearance 57.42 ml/min; Globulin 4.1 g/dL (2.2-4.2); Glucose 138 mg/dL (74-106); Lipase 3211 U/L (73-393); Potassium 3.7 mmol/L (3.5-5.1); Protein, Total 7.3 g/dL (6.4-8.2); Sodium Level 137 mmol/L (136-145)
[2021-06-21] MEDS: 0.9% Normal Saline 1,000 ML 150 ML IV (21:25)
[2021-06-21 21:28] VITALS: BP 168/96; PULSE 96; RESP 16; O2SAT 99
--- NOTE | 2021-06-21 21:43 | HP.PCM.HOS_ITS ---
HPI - General General Date of Admission: 06/21/21 HPI Narrative DAVID TATE, is a 45 F with a significant history of diabetes mellitus; hyperlipidemia; tobacco abuse; pancreatitis and prior alcoholism who presents to the emergency department with epigastric abdominal pain that radiated to right upper quadrant and right lower quadrant as well as her back. She described the pain as 8 out of 10. She described the pain as burning. She denies any aggravating or ameliorating factors to the pain at home. Morphine given in the emergency department help improve the pain. Associated with her symptom is nausea and vomiting. Also patient reports loose bowel movement of about 4 to 5-day before presentation. She reported chronically she has diarrhea. On the day of presentation she complains of constipation. She reports gradually worsening abdominal bloating. In regard to her hyperlipidemia she reported that her primary care doctor stop hypolipidemic medication because of elevated liver enzymes [facility] Medical History (Updated 06/21/21 @ 22:[address] Benny López MD) Alcoholism Anxiety Breast implant status Diabetes HLD (hyperlipidemia) HTN (hypertension) Nicotine abuse Home Medications duloxetine 60 mg PO QHS 04/30/18 [History Last Taken 09/19/20] doxepin 150 mg PO QHS 08/30/19 [History Last Taken 09/19/20] gabapentin 300 mg PO TID 08/30/19 [History Last Taken 09/20/20] acetaminophen 650 mg PO Q6H PRN PRN tab 09/02/19 [Rx Last Taken Unknown] albuterol sulfate 90 mcg IH BID PRN 09/16/20 [History Last Taken 09/20/20] alprazolam 1 - 2 tablet PO BID PRN PRN 09/16/20 [History Last Taken Unknown] eletriptan 40 mg PO DAILY PRN 09/16/20 [History Last Taken 09/20/20] losartan 50 mg PO DAILY 09/16/20 [History Last Taken 09/20/20] meloxicam 15 mg PO DAILY PRN 09/16/20 [History Last Taken 09/20/20] metformin 500 mg PO BIDCM 09/16/20 [History Last Taken 09/20/20] ondansetron 4 mg PO Q8H PRN PRN 09/16/20 [History Last Taken Unknown] prochlorperazine maleate 10 mg PO Q6H PRN PRN 09/16/20 [History Last Taken Unknown] Allergy/AdvReac Type Severity Reaction Status Date / Time azithromycin [From Zithromax] AdvReac Diarrhea Verified 06/21/21 19:29 codeine AdvReac Nausea Verified 06/21/21 19:29 promethazine [From Phenergan] AdvReac Vomiting Verified 06/21/21 19:29 Family History Other Cancer Diabetes Heart disease Surgical History H/O breast augmentation H/O: knee surgery Social History Smoking Status: Current every day smoker tobacco type: cigarettes ROS ROS Narrative Constitutional: Reports anorexia. Denies fever, chills, fatigue, and change in weight Eyes: Denies blurry vision, change in eye color, change in vision, discharge from eye(s), double vision, erythema, eye pain, loss of vision or other HEENT: Denies abnormal hearing, dysphagia, ear pain, epistaxis, headache(s), hearing loss, nasal congestion, nasal discharge, post nasal drip, sinus pressure, sore throat or other Cardiovascular: Denies chest pain or palpitations. Denies dyspnea on exertion, orthopnea and paroxysmal nocturnal dyspnea Respiratory/Chest: Denies cough, excessive phlegm production, shortness of breath with exertion and wheezing Gastrointestinal: Reports abdominal pain, nausea vomiting, constipation and abdominal bloating. Denies coffee ground emesis, hematemesis, hematochezia, melena, or other Genitourinary: Denies burning urination, difficulty urinating, dysuria, hematuria, nocturia, urinary frequency, urinary hesitancy, urinary incontinence, urinary urgency or other Musculoskeletal: Reports back pain. Denies arthralgias, joint pain, joint stiffness, joint swelling, myalgias, neck pain or other Neurologic: Denies abnormal gait, abnormal speech, confusion, disequilibrium, dizziness, focal weakness, headache(s), numbness, paresthesias, seizure-like activity, seizures, syncope, tingling, tremor(s) or other Psychiatric: Denies anxiety, depression, homicidal ideation, suicidal ideation or other Endocrinology: Denies change in body appearance, cold intolerance, excessive sweating, heat intolerance, polydipsia, polyuria or other Hematologic/Lymphatic: Denies anemia, easy bleeding, easy bruising, lymphadenopathy or other Integumentary: Denies rashes Allergic/Immunologic: Denies rhinitis, hives, eczema, asthma or other Vital Signs Vital Signs Vital Signs: 06/21/21 19:29 Temperature 97.0 F L Temperature Source Temporal Pulse Rate 96 Respiratory Rate 16 Blood Pressure 144/86 H Blood Pressure Mean 105 Pulse Ox 97 Oxygen Delivery Method Room Air Weight Weight: 56.4 kg Body Mass Index (BMI) 20.0 Physical Exam Narrative Physical exam: General: Well-nourished, well-developed. Head: Normocephalic, atraumatic, no tenderness Eyes: PERRLA, EOMI ENT, no trauma, moist mucous membranes, no rhinorrhea Neck: Nontender, full range of motion, no spinal tenderness, deformities, step- off CVS: Regular rate and rhythm. S1-S2 present. No murmur, gallop or rub. Respiratory : Mild wheezes, chest wall nontender. Abdomen: Soft, nontender, distended, normal bowel sounds, no masses : Deferred Back: Nontender, no CVA tenderness, no midline spinal tenderness, deformities, step-offs Extremities: Nontender full range of motion, no trauma Skin: Normal color, no trauma, abrasions Neuro: Alert, oriented, cranial nerves II through XII grossly intact. Psychiatry: Normal mood. Normal affect. Not depressed. Not anxious. Results Lab / Micro Data Result Diagrams: 06/21/21 19:55 06/21/21 19:55 Labs: Laboratory Results - last 24 hr 06/21/21 19:55: WBC 8.0, RBC 3.89 L, Hgb 13.5, Hct 39.6, MCV 101.8 H, MCH 34.7 H , MCHC 34.1, RDW Std Deviation 45.6 H, RDW Coeff of Teressa 12.3, Plt Count 239, MPV 9.4, Immature Gran % (Auto) 0.600, Neut % (Auto) 72.7 H, Lymph % (Auto) 16.1 L, [place] % (Auto) 9.0, Eos % (Auto) 1.2, Baso % (Auto) 0.4, Absolute Neuts (auto) 5.8, Absolute Lymphs (auto) 1.29, Nucleated RBC % 0 06/21/21 19:55: Sodium 137, Potassium 3.7, Chloride 96 L, Carbon Dioxide 31.0, Anion Gap 10, BUN 7, Creatinine 1.09 H, Estim Creat Clear Calc 57.42, Est GFR (M DRD) Af Amer 69, Est GFR (MDRD) Non-Af 57 L, BUN/Creatinine Ratio 6.4 L, Glucose 138 H, Calcium 12.1 H, Total Bilirubin 1.40 H, Direct Bilirubin 0.61 H, AST 60 H , ALT 51, Alkaline Phosphatase 119 H, Total Protein 7.3, Albumin 3.2, Globulin 4.1, Lipase 3211 H Radiology Impression Abdomen/Pelvis CT 06/21/21 19:40 IMPRESSION: Acute pancreatitis with associated gastritis and duodenitis. No demonstrated phlegmon or abscess. Stable fatty infiltration of the liver with stable hypoattenuation in the right lobe. No new suspicious lesion Small bowel ileus Normal appendix visualized Electronically Signed: Obinna Rodriguez MD at 21:25 EST , Service support , Assessment & Plan Assessment/Plan (1) Acute pancreatitis: QUALIFIERS: Acute pancreatitis complication: no infection or necrosis Pancreatitis type: unspecified pancreatitis type Qualified Code(s): K85.90 - Acute pancreatitis without necrosis or infection, unspecified (2) Acute duodenitis: (3) Gastritis and duodenitis: PLAN: Acute pancreatitis Review of abdomen pelvis CT showed inflamed pancreas. I agree with radiologist interpretation. Characteristic of pain: Epigastric pain radiated to back. Lipase level: 3211 Hematocrit: 39.6 BUN: 7 Lactated Ringer's at 250 ml/hr Pain regimen: Received morphine IV at emergency department. Morphine IV ordered. Antiemetics: Zofran IV ordered. Compazine IV ordered. Clear liquid diet if patient can tolerate. Workup to find etiology of pancreatitis BMP showed calcium of 12.1. AST elevated at 60, chronic. ALT is 51. Total bilirubin is elevated, chronic. Direct bilirubin is elevated at 0.61. Mildly elevated alkaline phosphatase. Trend CMP. Ultrasound gallbladder. N.p.o. for ultrasound Denies alcoholism at this time. Previously was alcoholic. Check lipid level. Gastritis and Duodenitis Per radiologist interpretation abdomen and pelvis CT showed gastritis and duodenitis. Abdomen pelvis CT was independently interpreted and I agree with radiologist interpretation Protonix ordered. Diabetes mellitus Patient with mildly elevated glucose on presentation. Hold home metformin. Accu-Chek every 6 hours of correction scale insulin ordered. Tobacco abuse Smokes 8-10 sticks of cigarettes per day. Counseled. DVT prophylaxis: Subcutaneous Lovenox ordered. Charges/Coding Visit Charges Inpatient E&M: 08265 Init Hosp L3
[2021-06-21 22:10] LABS: Cholesterol 219 mg/dL (200); High Density Lipoprotein 44 mg/dL; Triglycerides 207 mg/dL; Very Low Density Lipoprotein 41 mg/dL (5-40)
[2021-06-21 22:35] VITALS: BP 154/82; PULSE 87; RESP 16; TEMP 36.7; O2SAT 99
[2021-06-21 22:51] VITALS: BMI 19.7
[2021-06-21 22:52] VITALS: BP 159/83; PULSE 88; RESP 18; TEMP 36.8; O2SAT 97
[2021-06-21] MEDS: Lactated Ringers 1,000 ML 250 ML IV (23:22)
[2021-06-21] MEDS: proCHLORPERazine 10 MG/2 ML Vial 5 MG IV (23:23)
[2021-06-21] MEDS: Morphine 2 MG/ML Syringe IV (23:23)
[2021-06-21] MEDS: Gabapentin 300 MG Capsule PO (23:26)
[2021-06-21] MEDS: DOXEPIN HCL 50 MG CAPSULE 150 MG PO (23:26)
[2021-06-21] MEDS: DULoxetine Hcl 60 MG Capsule PO (23:26)
[2021-06-21 23:41] LABS: Bedside Glucose 120 mg/dL (70-110)
--- NOTE | 2021-06-21 23:49 | PCS.PANDOC ---
PANDEMIC DOCUMENTATION INITIATED: Date: 06/21/21 Time: 2300
[2021-06-22] MEDS: Morphine 2 MG/ML Syringe IV ×5 (03:24→14:23)
[2021-06-22] MEDS: Lactated Ringers 1,000 ML 250 ML IV ×4 (03:24→17:49)
[2021-06-22 03:27] VITALS: BP 146/96; PULSE 110; RESP 16; TEMP 37.1; O2SAT 91
--- NOTE | 2021-06-22 05:55 | US_ITS ---
STUDY: ABDOMINAL ULTRASOUND - RIGHT UPPER QUADRANT REASON FOR VISIT: Female, 45 years old Pancreatitis -- CT 06-21-21 -- US 09-16-20 TECHNIQUE: Ultrasound evaluation of the right upper quadrant was performed with real-time and static santo-scale imaging. TECHNICAL QUALITY: Adequate. COMPARISON: Comparison is made with prior CT scan of the abdomen dated 12/19/2021 and prior ultrasound dated 09/16/2020. FINDINGS: Liver: The liver is enlarged and measures 20.3 cm. There is a heterogeneous echogenicity of the liver. The bile ducts are within normal limits. There is hepatic color flow. The direction of portal flow is hepatopetal. There is no demonstrated mass lesion. Gallbladder: Normal distended gallbladder. The gallbladder wall measures 1.7 mm. There is a negative sonographic Moore''s sign. There is no pericholecystic fluid. There are no gallstones. Common Bile Duct (C.B.D.): The common bile duct measures 6.6 mm. Pancreas: There is a 2.8 cm x 2.5 cm hypodensity in the head and uncinate process of the pancreas. This may be related to the patient''s history of acute pancreatitis. There is evidence of peripancreatic inflammatory changes. Right Kidney: Normal size of the right kidney. The right kidney measures 11.17 x 4.7 cm x 3.4 cm. Normal renal cortex. The right cortex measures 1 cm. There is no demonstrated renal mass or cyst. There is no right hydronephrosis. US/Gallbladder IMPRESSION: Hepatomegaly and heterogeneous echotexture of the liver. 2.8 cm x 2.5 cm hypodensity in the head and uncinate process of the pancreas. This most likely represents focal acute pancreatitis with peripancreatic inflammatory change. Electronically Signed: Denzel Quijano MD at 12:52 EST , Service support ,
[2021-06-22 06:01] VITALS: BP 155/97; PULSE 105; RESP 16; TEMP 37; O2SAT 93
[2021-06-22 06:04] LABS: Absolute Lymphocyte Count 0.85 X10^3/uL (0.83-4.51); Absolute Neutrophil Count 4.3 X10^3/uL (2.0-7.7); Basophil# 0.02 X10^3/uL; Basophil% 0.3 % (0-1); Eosinophil# 0.14 X10^3/uL; Eosinophils% 2.4 % (0-5); Hematocrit 32.5 % (37-47); Hemoglobin 10.9 g/dL (12.0-15.0); Lymphocyte # 0.85 X10^3/ul (0.83-4.51); Lymphocyte % 14.3 % (19-41); Mean Corp Hgb Conc 33.5 g/dL (32-36); Mean Corpuscular Hgb 34.6 pg (27.0-32.0); Mean Corpuscular Volume 103.2 fL (81-99); Mean Platelet Vol. 9.7 fl (6.2-12.0); Monocyte# 0.63 X10^3/uL; Monocyte% 10.6 % (0-10); NRBC Flagged by Analyzer 0 % (0-5); Neutrophil # 4.27 X10^3/uL (2.7-7.7); Neutrophil % 71.9 % (47-70); Platelet Count 144 K/mm3 (150-450); RBC Distribution Width CV 12.3 % (11.6-14.6); RBC Distribution Width SD 46.4 fl (35.1-43.9); Red Blood Count 3.15 M/mm3 (4.2-5.4); White Blood Count 5.9 K/mm3 (4.4-11.0)
[2021-06-22 06:11] LABS: Bedside Glucose 129 mg/dL (70-110)
[2021-06-22 07:02] LABS: ALB/GLOB Ratio 0.8 RATIO (0.9-2.4); AST(SGOT) 33 U/L (15-37); Alanine Aminotransfer ALT/SGPT 34 U/L (13-56); Albumin, Serum 2.5 g/dL (3.2-5.0); Alkaline Phosphatase 83 U/L (45-117); Anion Gap 7 (5-15); BUN 6 mg/dL (7-18); BUN/Creat Ratio 7.7 RATIO (10-20); Calcium,Total 9.4 mg/dL (8.5-10.1); Chloride 99 mmol/L (98-107); Creatinine, Serum 0.78 mg/dL (0.55-1.02); EST Glomerular Filtration Rate 84 mL/min (>60); Est Glom Filt Rate - Afr Amer 102 mL/min (>60); Estimated Creatinine Clearance 78.82 ml/min; Globulin 3.1 g/dL (2.2-4.2); Glucose 120 mg/dL (74-106); Potassium 3.7 mmol/L (3.5-5.1); Protein, Total 5.6 g/dL (6.4-8.2); Sodium Level 136 mmol/L (136-145)
--- NOTE | 2021-06-22 07:39 | PN.HOSP_ITS ---
Objective Data Objective Data Vital Signs: Vital Signs Temp Pulse Resp BP Pulse Ox 98.6 F 105 H 16 155/97 H 93 06/22/21 06:01 06/22/21 06:01 06/22/21 06:01 06/22/21 06:01 06/22/21 06:01 Oxygen Delivery Method Room Air Weight: 122 lb 2.177 oz Body Mass Index (BMI) 19.7 Intake & Output: Intake and Output for Last 24 Hours 06/20/21 06/21/21 06/22/21 23:59 23:59 23:59 Intake Total 1612.5 / 1612.5 1687.5 / 1687.5 Output Total 700 / 700 Balance 1612.5 / 1612.5 987.5 / 987.5 Lab / Micro Data Result Diagrams: 06/22/21 05:35 06/22/21 05:35 Labs: Laboratory Results - last 24 hr 06/21/21 19:55: WBC 8.0, RBC 3.89 L, Hgb 13.5, Hct 39.6, MCV 101.8 H, MCH 34.7 H , MCHC 34.1, RDW Std Deviation 45.6 H, RDW Coeff of Teressa 12.3, Plt Count 239, MPV 9.4, Immature Gran % (Auto) 0.600, Neut % (Auto) 72.7 H, Lymph % (Auto) 16.1 L, [place] % (Auto) 9.0, Eos % (Auto) 1.2, Baso % (Auto) 0.4, Absolute Neuts (auto) 5.8, Absolute Lymphs (auto) 1.29, Nucleated RBC % 0 06/21/21 19:55: Sodium 137, Potassium 3.7, Chloride 96 L, Carbon Dioxide 31.0, Anion Gap 10, BUN 7, Creatinine 1.09 H, Estim Creat Clear Calc 57.42, Est GFR (M DRD) Af Amer 69, Est GFR (MDRD) Non-Af 57 L, BUN/Creatinine Ratio 6.4 L, Glucose 138 H, Calcium 12.1 H, Total Bilirubin 1.40 H, Direct Bilirubin 0.61 H, AST 60 H , ALT 51, Alkaline Phosphatase 119 H, Total Protein 7.3, Albumin 3.2, Globulin 4.1, Lipase 3211 H 06/21/21 19:55: Triglycerides 207 H, Cholesterol 219 H, LDL Cholesterol 134 H, VLDL Cholesterol 41 H, HDL Cholesterol 44 06/21/21 23:33: POC Glucose 120 H 06/22/21 05:35: WBC 5.9, RBC 3.15 L, Hgb 10.9 L, Hct 32.5 L, MCV 103.2 H, MCH 34.6 H, MCHC 33.5, RDW Std Deviation 46.4 H, RDW Coeff of Teressa 12.3, Plt Count 144 L, MPV 9.7, Immature Gran % (Auto) 0.500, Neut % (Auto) 71.9 H, Lymph % (Auto) 14.3 L, [place] % (Auto) 10.6 H, Eos % (Auto) 2.4, Baso % (Auto) 0.3, Abs olute Neuts (auto) 4.3, Absolute Lymphs (auto) 0.85, Nucleated RBC % 0 06/22/21 05:35: Sodium 136, Potassium 3.7, Chloride 99, Carbon Dioxide 30.0, Anion Gap 7, BUN 6 L, Creatinine 0.78, Estim Creat Clear Calc 78.82, Est GFR (MDRD) Af Amer 102, Est GFR (MDRD) Non-Af 84, BUN/Creatinine Ratio 7.7 L, Glucose 120 H, Calcium 9.4, Total Bilirubin 1.00, AST 33, ALT 34, Alkaline Phosphatase 83, Total Protein 5.6 L, Albumin 2.5 L, Globulin 3.1, Albumin/Globulin Ratio 0.8 L 06/22/21 06:05: POC Glucose 129 H Radiography Diagnostic Testing: Radiology Impression Abdomen/Pelvis CT 06/21/21 19:40 IMPRESSION: Acute pancreatitis with associated gastritis and duodenitis. No demonstrated phlegmon or abscess. Stable fatty infiltration of the liver with stable hypoattenuation in the right lobe. No new suspicious lesion Small bowel ileus Normal appendix visualized Electronically Signed: Obinna Rodriguez MD at 21:25 EST , Service support , Physical Exam Narrative General: Alert, Oriented x3, Cooperative HEENT:Often is around eyes Atraumatic, PERRLA, EOMI, Normocephalic Oral: No Gingival or Mucosal Lesions/ Ulcerations Neck: Supple, No JVD, Negative Carotid Bruits Lungs: Air entry diminished in bilateral lung bases. No crepitation/rhonchi Cardiovascular: Regular rate, Regular Rhythm, Normal S1, Normal S2, No murmurs Abdomen: Mild tenderness and distention present upper abdomen.Spleen not palpable. : No renal angle tenderness. No suprapubic tenderness. Extremities: No edema, Capillary Refill Less than 3 Seconds Skin: No rashes, No breakdown Musculoskeletal: No Tenderness to Palpation of Joints or Extremities Neurological: Cranial nerves II-XII grossly intact, DTR 2+/4 and Symmetrical, Neuro grossly intact Psych/Mental Status: Normal Affect, Appropriate. Assessment & Plan Assessment/Plan (1) Acute pancreatitis: QUALIFIERS: Acute pancreatitis complication: no infection or necrosis Pancreatitis type: unspecified pancreatitis type Qualified Code(s): K85.90 - Acute pancreatitis without necrosis or infection, unspecified (2) Gastritis and duodenitis: PLAN: This 45-year-old female with multiple comorbidities including diabetes mellitus type 2 and chronic alcohol use in past admitted with abdominal pain with radiation to right upper and lower quadrant and back and labs consistent with acute pancreatitis Acute pancreatitis: Lipase 3211. On Ringer lactate IV 250 mill per hour. AST 60. ALT 51. Total bilirubin, predominantly indirect chronically elevated. Calcium elevated 12.1 improved to 9.4. Ultrasound gallbladder done but not reported. Abdominal pain slightly better. Will start clear liquid from afternoon. Gastritis and Duodenitis: Abdomen and pelvis CT showed gastritis and duodenitis. Protonix ordered. Diabetes mellitus type II: Glucose 120 in BMP Patient with mildly elevated glucose on presentation. Hold home metformin. Accu-Chek every 6 hours of correction scale insulin ordered. Tobacco abuse Smokes 8-10 sticks of cigarettes per day. Counseled. DVT prophylaxis: Subcutaneous Lovenox ordered. Charges/Coding Visit Charges Inpatient E&M: 33034 Subs Hosp L2
[2021-06-22 08:58] VITALS: BP 144/94; PULSE 105; RESP 17; TEMP 37; O2SAT 93
[2021-06-22] MEDS: Ondansetron 4 MG/2 ML Vial IV ×2 (09:06→17:11)
[2021-06-22] MEDS: 0.9% Saline Lock 10 ML Syringe IV ×5 (09:06→17:11)
[2021-06-22] MEDS: Losartan Potassium 50 MG Tablet PO (09:10)
[2021-06-22] MEDS: Acetaminophen 325 MG Tablet 650 MG PO ×2 (10:56→19:53)
--- NOTE | 2021-06-22 11:10 | CASEMGMT ---
RN LISS FORM DRAFTER CM to room to meet with patient for initial transition planning/care coordination assessment. ROGER LEIJA introduced self and role at [facility]. Pt voices understanding and consents to assessment at this time. Pt sitting up in bed in no distress at this time. Pt is A/O at this time and answers all questions appropriately. Care providers, pharmacy, and demographics verified/updated at this time. PCP: Dr Mullins Specialists: Neeru sr. Dr Collins--GI in [place]. Pt had appt this past , but states he would not see her d/t having a slight cough. She has not re-scheduled another appt yet. Preferred Pharmacy: [facility] Retail pharmacy Insurance: [employer] Prescription Benefit: Yes Living Will/HPOA: States does not have LW or HCPOA . Interested in more information but states does not want to talk with SW at this time to complete paperwork. Provided information on advanced directives and given Social Service rac card with number to call if chooses in the future to utilize [facility] social work for advanced directive completion. Patient expresses understanding. LNOK: 3 children: ages 21, 16, 15. Mother, Theresa Soares. Living Arrangements: Lives w/her 2 youngest children in single-story home w/1 step to enter. Independent. Transportation: Pt states drives self and states no transportation concerns at this time. DME: Denies using any DME and denies needs. HHC/SNF: No hx of either. No needs identified. Pt wishes to return home and states has no concerns with going home at time of discharge. CM to follow for any discharge planning/needs. Pt voices no concerns/needs at this time. Advised pt to ask for CM if any questions/concerns/needs arise. Voices understanding. PLAN: Home Michelle FELICIANO RN, CM
[2021-06-22] MEDS: proCHLORPERazine 10 MG/2 ML Vial 5 MG IV ×2 (11:34→19:46)
[2021-06-22 11:40] LABS: Bedside Glucose 122 mg/dL (70-110)
--- NOTE | 2021-06-22 11:53 | NURSING ---
OFF UNIT VIA W/C FOR ORDERED TEST
[2021-06-22 14:00] VITALS: BP 139/92; PULSE 78; RESP 16; TEMP 36.9
[2021-06-22] MEDS: Gabapentin 300 MG Capsule PO ×2 (14:24→21:27)
[2021-06-22] MEDS: HYDROmorphone 0.5 MG/0.5 ML SYRINGE IV ×2 (17:11→21:15)
[2021-06-22 17:36] LABS: Bedside Glucose 123 mg/dL (70-110)
[2021-06-22] MEDS: DOXEPIN HCL 50 MG CAPSULE 150 MG PO (21:28)
[2021-06-22] MEDS: DULoxetine Hcl 60 MG Capsule PO (21:28)
[2021-06-22 21:35] LABS: Bedside Glucose 103 mg/dL (70-110)
[2021-06-22 22:23] VITALS: BP 134/91; PULSE 78; RESP 16; TEMP 36.6; O2SAT 95
[2021-06-23] VITALS (7 sets, daily range): BP systolic 124–146; BP diastolic 76–93; PULSE 80–94; RESP 14–18; TEMP 36.7–37.1; O2SAT 92–95
[2021-06-23] MEDS: Lactated Ringers 1,000 ML 250 ML IV ×3 (00:30→08:04)
[2021-06-23] MEDS: Ondansetron 4 MG/2 ML Vial IV ×2 (03:19→13:00)
[2021-06-23] MEDS: HYDROmorphone 0.5 MG/0.5 ML SYRINGE IV ×4 (03:20→17:29)
[2021-06-23] MEDS: Acetaminophen 325 MG Tablet 650 MG PO ×3 (03:30→19:56)
[2021-06-23 06:05] LABS: Bedside Glucose 99 mg/dL (70-110)
[2021-06-23] MEDS: Gabapentin 300 MG Capsule PO ×3 (06:11→21:17)
[2021-06-23 06:24] LABS: Absolute Lymphocyte Count 0.86 X10^3/uL (0.83-4.51); Absolute Neutrophil Count 3.1 X10^3/uL (2.0-7.7); Basophil# 0.01 X10^3/uL; Basophil% 0.2 % (0-1); Eosinophil# 0.17 X10^3/uL; Eosinophils% 3.7 % (0-5); Hematocrit 28.5 % (37-47); Hemoglobin 9.6 g/dL (12.0-15.0); Lymphocyte # 0.86 X10^3/ul (0.83-4.51); Lymphocyte % 18.7 % (19-41); Mean Corp Hgb Conc 33.7 g/dL (32-36); Mean Corpuscular Hgb 35.2 pg (27.0-32.0); Mean Corpuscular Volume 104.4 fL (81-99); Mean Platelet Vol. 9.6 fl (6.2-12.0); Monocyte# 0.41 X10^3/uL; Monocyte% 8.9 % (0-10); NRBC Flagged by Analyzer 0 % (0-5); Neutrophil # 3.12 X10^3/uL (2.7-7.7); Neutrophil % 67.8 % (47-70); Platelet Count 129 K/mm3 (150-450); RBC Distribution Width CV 12.1 % (11.6-14.6); RBC Distribution Width SD 46.2 fl (35.1-43.9); Red Blood Count 2.73 M/mm3 (4.2-5.4); White Blood Count 4.6 K/mm3 (4.4-11.0)
[2021-06-23 06:55] LABS: ALB/GLOB Ratio 0.8 RATIO (0.9-2.4); AST(SGOT) 20 U/L (15-37); Alanine Aminotransfer ALT/SGPT 22 U/L (13-56); Albumin, Serum 2.2 g/dL (3.2-5.0); Alkaline Phosphatase 64 U/L (45-117); Anion Gap 5 (5-15); BUN 4 mg/dL (7-18); BUN/Creat Ratio 6.3 RATIO (10-20); Calcium,Total 8.9 mg/dL (8.5-10.1); Chloride 102 mmol/L (98-107); Creatinine, Serum 0.64 mg/dL (0.55-1.02); EST Glomerular Filtration Rate 107 mL/min (>60); Est Glom Filt Rate - Afr Amer 129 mL/min (>60); Estimated Creatinine Clearance 96.06 ml/min; Globulin 2.6 g/dL (2.2-4.2); Glucose 94 mg/dL (74-106); Potassium 3.3 mmol/L (3.5-5.1); Protein, Total 4.8 g/dL (6.4-8.2); Sodium Level 139 mmol/L (136-145)
[2021-06-23] MEDS: proCHLORPERazine 10 MG/2 ML Vial 5 MG IV ×2 (08:22→17:28)
[2021-06-23] MEDS: Potassium Chloride Oral Tablet 20 MEQ 40 MEQ PO ×2 (09:46→13:10)
[2021-06-23] MEDS: Losartan Potassium 50 MG Tablet PO (09:47)
[2021-06-23 09:48] LABS: Lipase 732 U/L (73-393)
[2021-06-23] MEDS: DiphenhydrAMINE 25 MG Capsule PO (10:35)
[2021-06-23] MEDS: 0.9% Saline Lock 10 ML Syringe IV ×3 (11:03→21:48)
[2021-06-23 11:51] LABS: Bedside Glucose 102 mg/dL (70-110)
[2021-06-23] MEDS: Lactated Ringers 1,000 ML 150 ML IV ×2 (15:09→21:16)
--- NOTE | 2021-06-23 16:52 | PCM.PN.HOSP ---
Subjective Subjective Patient is still complaining of abdominal pain although slightly better with Dilaudid. Lipase improved. Objective Data Objective Data Vital Signs: Vital Signs Temp Pulse Resp BP Pulse Ox 98.5 F 94 18 135/84 H 94 06/23/21 15:33 06/23/21 15:33 06/23/21 15:33 06/23/21 15:33 06/23/21 15:33 Oxygen Delivery Method Room Air Weight: 122 lb 2.177 oz Body Mass Index (BMI) 19.7 Intake & Output: Intake and Output for Last 24 Hours 06/21/21 06/22/21 06/23/21 23:59 23:59 23:59 Intake Total 1612.5 / 1612.5 3907.50 / 4147.50 4410.83 / 4410.83 Output Total 700 / 1200 1700 / 1700 Balance 1612.5 / 1612.5 3207.50 / 2947.50 2710.83 / 2710.83 Lab / Micro Data Result Diagrams: 06/23/21 05:32 06/23/21 05:32 Labs: Laboratory Results - last 24 hr 06/22/21 17:19: POC Glucose 123 H 06/22/21 21:26: POC Glucose 103 06/23/21 05:32: WBC 4.6, RBC 2.73 L, Hgb 9.6 L, Hct 28.5 L, MCV 104.4 H, MCH 35.2 H, MCHC 33.7, RDW Std Deviation 46.2 H, RDW Coeff of Teressa 12.1, Plt Count 129 L, MPV 9.6, Immature Gran % (Auto) 0.700, Neut % (Auto) 67.8, Lymph % (Auto) 18.7 L, Sebastian % (Auto) 8.9, Eos % (Auto) 3.7, Baso % (Auto) 0.2, Absolute Neuts (auto) 3.1, Absolute Lymphs (auto) 0.86, Nucleated RBC % 0 06/23/21 05:32: Sodium 139, Potassium 3.3 L, Chloride 102, Carbon Dioxide 32.0, Anion Gap 5, BUN 4 L, Creatinine 0.64, Estim Creat Clear Calc 96.06, Est GFR (MDRD) Af Amer 129, Est GFR (MDRD) Non-Af 107, BUN/Creatinine Ratio 6.3 L, Glucose 94, Calcium 8.9, Total Bilirubin 1.10 H, AST 20, ALT 22, Alkaline Phosphatase 64, Total Protein 4.8 L, Albumin 2.2 L, Globulin 2.6, Albumin/Globulin Ratio 0.8 L 06/23/21 05:32: Lipase 732 H 06/23/21 05:58: POC Glucose 99 06/23/21 11:43: POC Glucose 102 Physical Exam Narrative General: Alert, Oriented x3, Cooperative HEENT:Often is around eyes Atraumatic, PERRLA, EOMI, Normocephalic Oral: No Gingival or Mucosal Lesions/ Ulcerations Neck: Supple, No JVD, Negative Carotid Bruits Lungs: Air entry diminished in bilateral lung bases. No crepitation/rhonchi Cardiovascular: Regular rate, Regular Rhythm, Normal S1, Normal S2, No murmurs Abdomen: Mild tenderness over epigastrium and right upper quadrant abdomen. Liver not enlarged spleen not palpable. : No renal angle tenderness. No suprapubic tenderness. Extremities: No edema, Capillary Refill Less than 3 Seconds Skin: No rashes, No breakdown Musculoskeletal: No Tenderness to Palpation of Joints or Extremities Neurological: Cranial nerves II-XII grossly intact, DTR 2+/4 and Symmetrical, Neuro grossly intact Psych/Mental Status: Normal Affect, Appropriate. Assessment & Plan Assessment/Plan (1) Acute pancreatitis: QUALIFIERS: Pancreatitis type: unspecified pancreatitis type Acute pancreatitis complication: no infection or necrosis Qualified Code(s): K85.90 - Acute pancreatitis without necrosis or infection, unspecified (2) Gastritis and duodenitis: PLAN: This 45-year-old female with multiple comorbidities including diabetes mellitus type 2 and chronic alcohol use in past admitted with abdominal pain with radiation to right upper and lower quadrant and back and labs consistent with acute pancreatitis Acute pancreatitis: Lipase 3211. On Ringer lactate IV 250 mill per hour. AST 60. ALT 51. Total bilirubin, predominantly indirect chronically elevated. Calcium elevated 12.1 improved to 9.4. Ultrasound gallbladder done but not reported. Abdominal pain slightly better. 06/23 started on full liquid diet. Lipase improved. Abdominal pain controlled on Dilaudid. Patient also complained of generalized itching therefore Benadryl overdose as needed ordered Gastritis and Duodenitis: Abdomen and pelvis CT showed gastritis and duodenitis. Protonix continue Diabetes mellitus type II: Glucose 120 in BMP Patient with mildly elevated glucose on presentation. Hold home metformin. Accu-Chek every 6 hours of correction scale insulin ordered. Tobacco abuse Smokes 8-10 sticks of cigarettes per day. Counseled. DVT prophylaxis: Subcutaneous Lovenox ordered. Charges/Coding Visit Charges Inpatient E&M: 14323 Subs Hosp L2
[2021-06-23 17:45] LABS: Bedside Glucose 94 mg/dL (70-110)
[2021-06-23] MEDS: DULoxetine Hcl 60 MG Capsule PO (21:17)
[2021-06-23] MEDS: DOXEPIN HCL 50 MG CAPSULE 150 MG PO (21:17)
[2021-06-24] MEDS: Polyethylene Glycol 3350 17 GM PACKET PO (00:14)
[2021-06-24] MEDS: HYDROmorphone 0.5 MG/0.5 ML SYRINGE IV ×3 (00:14→09:11)
[2021-06-24 00:26] LABS: Bedside Glucose 113 mg/dL (70-110)
[2021-06-24 03:29] VITALS: BP 159/98; PULSE 76; RESP 18; TEMP 36.9; O2SAT 96
[2021-06-24] MEDS: Acetaminophen 325 MG Tablet 650 MG PO ×2 (03:41→10:26)
[2021-06-24 03:44] VITALS: O2SAT 96
[2021-06-24] MEDS: Lactated Ringers 1,000 ML 150 ML IV (04:47)
[2021-06-24 04:52] LABS: Absolute Lymphocyte Count 0.96 X10^3/uL (0.83-4.51); Absolute Neutrophil Count 2.4 X10^3/uL (2.0-7.7); Basophil# 0.03 X10^3/uL; Basophil% 0.8 % (0-1); Eosinophil# 0.17 X10^3/uL; Eosinophils% 4.3 % (0-5); Hematocrit 30.1 % (37-47); Hemoglobin 10.1 g/dL (12.0-15.0); Lymphocyte # 0.96 X10^3/ul (0.83-4.51); Lymphocyte % 24.3 % (19-41); Mean Corp Hgb Conc 33.6 g/dL (32-36); Mean Corpuscular Hgb 34.6 pg (27.0-32.0); Mean Corpuscular Volume 103.1 fL (81-99); Mean Platelet Vol. 9.5 fl (6.2-12.0); Monocyte# 0.39 X10^3/uL; Monocyte% 9.9 % (0-10); NRBC Flagged by Analyzer 0 % (0-5); Neutrophil # 2.38 X10^3/uL (2.7-7.7); Neutrophil % 60.2 % (47-70); Platelet Count 142 K/mm3 (150-450); RBC Distribution Width SD 45.1 fl (35.1-43.9); Red Blood Count 2.92 M/mm3 (4.2-5.4)
[2021-06-24] MEDS: Enoxaparin 40 MG/0.4 ML Syringe SC (06:43)
[2021-06-24] MEDS: Gabapentin 300 MG Capsule PO (06:44)
[2021-06-24 06:50] VITALS: BP 154/98; PULSE 84; RESP 18; O2SAT 99
[2021-06-24 06:55] LABS: Bedside Glucose 109 mg/dL (70-110)
[2021-06-24] MEDS: DiphenhydrAMINE 25 MG Capsule PO (07:08)
[2021-06-24 07:33] LABS: ALB/GLOB Ratio 0.7 RATIO (0.9-2.4); AST(SGOT) 58 U/L (15-37); Alanine Aminotransfer ALT/SGPT 30 U/L (13-56); Albumin, Serum 2.3 g/dL (3.2-5.0); Alkaline Phosphatase 91 U/L (45-117); Anion Gap 5 (5-15); BUN 4 mg/dL (7-18); BUN/Creat Ratio 5.9 RATIO (10-20); Calcium,Total 9.2 mg/dL (8.5-10.1); Chloride 104 mmol/L (98-107); Creatinine, Serum 0.68 mg/dL (0.55-1.02); EST Glomerular Filtration Rate 100 mL/min (>60); Est Glom Filt Rate - Afr Amer 120 mL/min (>60); Estimated Creatinine Clearance 90.41 ml/min; Globulin 3.4 g/dL (2.2-4.2); Glucose 104 mg/dL (74-106); Protein, Total 5.7 g/dL (6.4-8.2); Sodium Level 136 mmol/L (136-145)
[2021-06-24] MEDS: Losartan Potassium 50 MG Tablet PO (09:11)
[2021-06-24 09:30] VITALS: BP 168/101; PULSE 79; RESP 18; TEMP 36.7; O2SAT 97
--- NOTE | 2021-06-24 11:00 | PCM.DC ---
Discharge Instructions Diet Discharge Diet: Soft diet (For 5 days and then regular diet) Activity Weight Bearing Status: Weight bearing as tolerated Dressing / Incision Call your doctor if you observe: Fever of 101 or Higher, Coldness, Increased Pain, Numbness or Tingling, Change in Color, Inability to urinate, Inability to have a bowel movement, Shortness of breath, Dizziness, Fainting spells, Swelling in the ankles, Chest pain, Prolonged hiccupping, Increased palpitations (irregular heartbeat), Calf discomfort and Uncontrolled pain Follow Up Care Test Results: Test results from this visit will be discussed in further detail at your follow-up appointment, if applicable. Discharge Plan Admission Admit Date/Time: 06/21/21 21:36 Primary Reason for Your Visit: Acute pancreatitis Attending Provider: Jericho Fields Primary Care Provider: Valerie Mullins Instructions Patient Instructions: ED Pancreatitis Discharge Orders/Prescriptions Prescriptions: New pantoprazole [Protonix] 40 mg tablet,delayed release (DR/EC) 40 mg PO DAILY Qty: 30 RF: 1 Continued duloxetine 20 MG capsule 60 mg PO QHS RF: 0 doxepin 150 MG capsule 150 mg PO QHS RF: 0 gabapentin 100 MG capsule 300 mg PO TID RF: 0 acetaminophen 325 MG tablet 650 mg PO Q6H PRN PRN (Reason: pain -03/08) RF: 0 losartan 50 MG tablet 50 mg PO DAILY RF: 0 meloxicam 15 MG tablet 15 mg PO DAILY PRN (Reason: pain) RF: 0 alprazolam 0.25 MG tablet 1 - 2 tablet PO BID PRN PRN (Reason: Anxiety) RF: 0 eletriptan 40 MG tablet 40 mg PO DAILY PRN (Reason: migraine headaches) RF: 0 albuterol sulfate 90 MCG aerosol powdr breath activated 90 mcg IH BID PRN (Reason: breathing) RF: 0 ondansetron 4 MG tablet 4 mg PO Q8H PRN PRN (Reason: Nausea) RF: 0 prochlorperazine maleate 5 MG tablet 10 mg PO Q6H PRN PRN (Reason: Nausea) RF: 0 metformin 500 MG tablet 500 mg PO BIDCM Qty: 0 RF: 0 Referrals / Follow Up: Valerie Mullins MD [Primary Care Provider] - Within 1 Week FriendDougie DO [STAFF PHYSICIAN] - Within 2 Weeks (For recurrent acute pancreatitis. Liver ultrasound does not show cholecystitis/gallstone) Disposition Disposition (needs filled in before D/C Order can be placed): Home, Self Care
--- NOTE | 2021-06-24 11:25 | DS.PCM_ITS ---
Providers Date of Admission: 06/21/21 Date of Discharge: 06/24/21 Primary Care Physician: Dr. Valerie Mullins MD Reason For Visit: ACUTE PANCREATITIS Diagnosis Discharge Diagnosis (1) Acute pancreatitis: Status: Acute Code(s): K85.90 - Acute pancreatitis without necrosis or infection, unspecified Qualifiers: Acute pancreatitis complication: no infection or necrosis Pancreatitis type: unspecified pancreatitis type Qualified Code(s): K85.90 - Acute pancreatitis without necrosis or infection, unspecified (2) Gastritis and duodenitis: Status: Acute Code(s): K29.90 - Gastroduodenitis, unspecified, without bleeding Medications at Discharge Home Medications duloxetine 60 mg PO QHS 04/30/18 doxepin 150 mg PO QHS 08/30/19 gabapentin 300 mg PO TID 08/30/19 acetaminophen 650 mg PO Q6H PRN PRN tab 09/02/19 albuterol sulfate 90 mcg IH BID PRN 09/16/20 alprazolam 1 - 2 tablet PO BID PRN PRN 09/16/20 eletriptan 40 mg PO DAILY PRN 09/16/20 losartan 50 mg PO DAILY 09/16/20 meloxicam 15 mg PO DAILY PRN 09/16/20 ondansetron 4 mg PO Q8H PRN PRN 09/16/20 prochlorperazine maleate 10 mg PO Q6H PRN PRN 09/16/20 metformin 500 mg PO BIDCM #0 tab 06/24/21 pantoprazole [Protonix] 40 mg PO DAILY #30 tab 06/24/21 Hospital Course Summary of Care Provided Hospital Course: This 45-year-old female with multiple comorbidities including diabetes mellitus type 2 and chronic alcohol use in past admitted with abdominal pain with radiation to right upper and lower quadrant and back and labs consistent with acute pancreatitis Acute pancreatitis: Lipase 3211. On Ringer lactate IV 250 mill per hour. AST 60. ALT 51. Total bilirubin, predominantly indirect chronically elevated. Calcium elevated 12.1 improved to 9.4. Ultrasound gallbladder done but not reported. Abdominal pain slightly better. Lipase improved. Diet was progressively advanced to clear liquid, full liquid in the soft diet. Abdominal pain controlled on Dilaudid. Patient also complained of generalized itching therefore Benadryl overdose as needed ordered. Liver ultrasound does not show gallstones or features of cholecystitis. Advised to follow-up with GI in 2 weeks as patient does not drink alcohol does not have features of cholecystitis/gallstones. Gastritis and Duodenitis: Abdomen and pelvis CT showed gastritis and duodenitis. Protonix continue. Prescription given for Protonix. Diabetes mellitus type II: Glucose 120 in BMP Patient with mildly elevated glucose on presentation. Hold home metformin. Accu-Chek every 6 hours of correction scale insulin ordered. Tobacco abuse Smokes 8-10 sticks of cigarettes per day. Counseled to quit. DVT prophylaxis: Subcutaneous Lovenox ordered. Discharge medication reconciliation done. Discharge follow-up instructions completed. Discharge process discussed with the patient and all questions were answered to patient's satisfaction. Total time spent, exact 35 minutes on discharge meds reconciliation, examination, coordination of care with nurses and ancillary staff, review of imaging and blood test and discussion with the patient on follow-up instructions Clinical Impression(s) from Imaging Studies Abdomen/Pelvis CT 06/21/21 19:40 IMPRESSION: Acute pancreatitis with associated gastritis and duodenitis. No demonstrated phlegmon or abscess. Stable fatty infiltration of the liver with stable hypoattenuation in the right lobe. No new suspicious lesion Small bowel ileus Normal appendix visualized Gallbladder Ultrasound 06/22/21 05:55 IMPRESSION: Hepatomegaly and heterogeneous echotexture of the liver. 2.8 cm x 2.5 cm hypodensity in the head and uncinate process of the pancreas. This most likely represents focal acute pancreatitis with peripancreatic inflammatory change. Electronically Signed: Denzel Quijano MD at 12:52 EST , Service support , Physical Exam Narrative Seen and examined. Abdominal pain is improved. Still complains of mild to moderate pain. Diet advanced to soft diet. General: Alert, Oriented x3, Cooperative HEENT:Often is around eyes Atraumatic, PERRLA, EOMI, Normocephalic Oral: No Gingival or Mucosal Lesions/ Ulcerations Neck: Supple, No JVD, Negative Carotid Bruits Lungs: Air entry diminished in bilateral lung bases. No crepitation/rhonchi Cardiovascular: Regular rate, Regular Rhythm, Normal S1, Normal S2, No murmurs Abdomen: Mild tenderness over epigastrium and right upper quadrant abdomen. Liver not enlarged spleen not palpable. : No renal angle tenderness. No suprapubic tenderness. Extremities: No edema, Capillary Refill Less than 3 Seconds Skin: No rashes, No breakdown Musculoskeletal: No Tenderness to Palpation of Joints or Extremities Neurological: Cranial nerves II-XII grossly intact, DTR 2+/4 and Symmetrical, Neuro grossly intact Psych/Mental Status: Normal Affect, Appropriate. Weight / BMI Weight Weight: 122 lb 2.177 oz Body Mass Index (BMI) 19.7 ABG / Lab / Microbiology Data Result Diagrams: 06/24/21 04:45 06/24/21 04:45 Laboratory: Laboratory Results - last 24 hr 06/23/21 11:43: POC Glucose 102 06/23/21 17:36: POC Glucose 94 06/24/21 00:17: POC Glucose 113 H 06/24/21 04:45: WBC 4.0 L, RBC 2.92 L, Hgb 10.1 L, Hct 30.1 L, MCV 103.1 H, MCH 34.6 H, MCHC 33.6, RDW Std Deviation 45.1 H, RDW Coeff of Teressa 12.0, Plt Count 142 L, MPV 9.5, Immature Gran % (Auto) 0.500, Neut % (Auto) 60.2, Lymph % (Auto) 24.3, [place] % (Auto) 9.9, Eos % (Auto) 4.3, Baso % (Auto) 0.8, Absolute Neuts (auto) 2.4, Absolute Lymphs (auto) 0.96, Nucleated RBC % 0 06/24/21 04:45: Sodium 136, Potassium 4.0, Chloride 104, Carbon Dioxide 27.0, Anion Gap 5, BUN 4 L, Creatinine 0.68, Estim Creat Clear Calc 90.41, Est GFR (MDRD) Af Amer 120, Est GFR (MDRD) Non-Af 100, BUN/Creatinine Ratio 5.9 L, Glucose 104, Calcium 9.2, Total Bilirubin 1.10 H, AST 58 H, ALT 30, Alkaline Luis Carlos sphatase 91, Total Protein 5.7 L, Albumin 2.3 L, Globulin 3.4, Albumin/Globulin Ratio 0.7 L 06/24/21 06:42: POC Glucose 109 Meaningful Use Info Meaningful Use Diagnoses (Choose all that apply): None applicable Discharge Plan Admission Admit Date/Time: 06/21/21 21:36 Primary Reason for Your Visit: Acute pancreatitis Attending Provider: Jericho Fields Primary Care Provider: Valerie Mullins Instructions Patient Instructions: ED Pancreatitis Additional Instructions / Restrictions: Patient Problems: Altered Health Status related to Hospitalization Patient Goals: *Optimal Level of Health *Keep Appointments *Medication Compliance *Remain Safe Discharge Orders/Prescriptions Prescriptions: New pantoprazole [Protonix] 40 mg tablet,delayed release (DR/EC) 40 mg PO DAILY Qty: 30 RF: 1 Continued duloxetine 20 MG capsule 60 mg PO QHS RF: 0 doxepin 150 MG capsule 150 mg PO QHS RF: 0 gabapentin 100 MG capsule 300 mg PO TID RF: 0 acetaminophen 325 MG tablet 650 mg PO Q6H PRN PRN (Reason: pain -03/08) RF: 0 losartan 50 MG tablet 50 mg PO DAILY RF: 0 meloxicam 15 MG tablet 15 mg PO DAILY PRN (Reason: pain) RF: 0 alprazolam 0.25 MG tablet 1 - 2 tablet PO BID PRN PRN (Reason: Anxiety) RF: 0 eletriptan 40 MG tablet 40 mg PO DAILY PRN (Reason: migraine headaches) RF: 0 albuterol sulfate 90 MCG aerosol powdr breath activated 90 mcg IH BID PRN (Reason: breathing) RF: 0 ondansetron 4 MG tablet 4 mg PO Q8H PRN PRN (Reason: Nausea) RF: 0 prochlorperazine maleate 5 MG tablet 10 mg PO Q6H PRN PRN (Reason: Nausea) RF: 0 metformin 500 MG tablet 500 mg PO BIDCM Qty: 0 RF: 0 Referrals / Follow Up: Valerie Mullins MD [Primary Care Provider] - Within 1 Week FriendDougie DO [STAFF PHYSICIAN] - 07/31/21 10:00 am (For recurrent acute pancreatitis. Liver ultrasound does not show cholecystitis/gallstone) Disposition Disposition (needs filled in before D/C Order can be placed): Home, Self Care Charges/Coding Visit Charges Inpatient E&M: 17047 Disch Hosp
--- NOTE | 2021-06-24 11:54 | CASEMGMT ---
Pt is independent in room and states no concerns with going home at time of discharge. SStjennyfer DURAN CM
[2021-06-24 12:10] LABS: Bedside Glucose 124 mg/dL (70-110)
== END 2021-06-24 13:12 | disposition home or self-care (01) | DRG 282 ==
LOC: ED 21:34 → MS2 22:11 → PCU 06-22 17:42
PROVIDERS: Admitting Provider Hospitalist; Emergency Provider Emergency Medicine; PCP Internal Medicine; Visit Provider Internal Medicine
DX: K85.90 Acute pancreatitis without necrosis or infection, unspecified (principal); E78.5 Hyperlipidemia, unspecified; F10.21 Alcohol dependence, in remission; K29.80 Duodenitis without bleeding; I10 Essential (primary) hypertension; F17.210 Nicotine dependence, cigarettes, uncomplicated; K29.70 Gastritis, unspecified, without bleeding; K29.90 Gastroduodenitis, unspecified, without bleeding; Z79.1 Long term (current) use of non-steroidal anti-inflammatories (NSAID); Z79.84 Long term (current) use of oral hypoglycemic drugs; Z79.899 Other long term (current) drug therapy
CPT/HCPCS: 36415; 74177; 76705; 80048; 80053; 80061; 80076; 82962; 83690; 85025; 99285; 99406; J7030; J7120; Q9967; A4216; J2405

== ENCOUNTER 2021-07-16 10:20 | Outpatient (CLI) | payer MEDICAID, SELFPAY ==
[2021-07-16 11:34] LABS: Erythrocyte Sedimentation Rate 11 mm/hr (0-30)
[2021-07-16 11:36] LABS: Absolute Lymphocyte Count 1.37 X10^3/uL (0.83-4.51); Absolute Neutrophil Count 3.8 X10^3/uL (2.0-7.7); Basophil# 0.04 X10^3/uL; Basophil% 0.7 % (0-1); Eosinophil# 0.19 X10^3/uL; Eosinophils% 3.2 % (0-5); Hematocrit 34.6 % (37-47); Hemoglobin 12.1 g/dL (12.0-15.0); Lymphocyte # 1.37 X10^3/ul (0.83-4.51); Lymphocyte % 23.3 % (19-41); Mean Corpuscular Hgb 35.6 pg (27.0-32.0); Mean Corpuscular Volume 101.8 fL (81-99); Mean Platelet Vol. 9.8 fl (6.2-12.0); Monocyte# 0.45 X10^3/uL; Monocyte% 7.7 % (0-10); NRBC Flagged by Analyzer 0 % (0-5); Neutrophil # 3.78 X10^3/uL (2.7-7.7); Neutrophil % 64.4 % (47-70); Platelet Count 180 K/mm3 (150-450); RBC Distribution Width CV 12.6 % (11.6-14.6); RBC Distribution Width SD 46.8 fl (35.1-43.9); White Blood Count 5.9 K/mm3 (4.4-11.0)
[2021-07-16 12:08] LABS: Hemoglobin A1c 6.3 % (3.8-5.6)
[2021-07-16 12:13] LABS: ALB/GLOB Ratio 0.8 RATIO (0.9-2.4); AST(SGOT) 87 U/L (15-37); Alanine Aminotransfer ALT/SGPT 40 U/L (13-56); Albumin, Serum 2.9 g/dL (3.2-5.0); Alkaline Phosphatase 118 U/L (45-117); Amylase 41 U/L (25-115); Anion Gap 11 (5-15); BUN 3 mg/dL (7-18); Bilirubin, Direct 0.25 mg/dL (0.00-0.30); CRP 7.29 mg/L (0.0-3.0); Chloride 105 mmol/L (98-107); Cholesterol 221 mg/dL (200); Creatinine, Serum 0.76 mg/dL (0.55-1.02); EST Glomerular Filtration Rate 87 mL/min (>60); Est Glom Filt Rate - Afr Amer 105 mL/min (>60); Ferritin 225 ng/mL (8-252); Globulin 3.5 g/dL (2.2-4.2); Glucose 127 mg/dL (74-106); High Density Lipoprotein 33 mg/dL; Iron 108 ug/dL (50-170); Iron Binding Capacity,Total 260 ug/dL (250-450); LDH 198 U/L (84-246); PERCENT IRON SATURATION 41.5 % (15.0-55.0); Potassium 2.9 mmol/L (3.5-5.1); Protein, Total 6.4 g/dL (6.4-8.2); Sodium Level 140 mmol/L (136-145); Thyroid Stim Hormone (TSH) 1.34 uIU/mL (0.358-3.74); Triglycerides 390 mg/dL; Very Low Density Lipoprotein 78 mg/dL (5-40)
[2021-07-16 12:32] LABS: HIV - WCH Non-Reactive (Nonreactive); Vitamin B12 358 pg/mL (211-911)
[2021-07-17 16:10] LABS: Anti-Centromere B Ab <0.2 AI (0.0-0.9); Anti-Chromatin <0.2 AI (0.0-0.9); Anti-Jo <0.2 AI (0.0-0.9); Anti-Scleroderma-70 AB <0.2 AI (0.0-0.9); RNP Ab <0.2 AI (0.0-0.9); SJOGREN'S Anti-SS-A test < 0.2 AI (0.0-0.9); SJOGREN'S Anti-SS-B test < 0.2 AI (0.0-0.9); Smith Ab <0.2 AI (0.0-0.9)
[2021-07-17 18:36] LABS: Anti-Mitochondrial AB <20.0 Units (0.0-20.0); Anti-dsDNA Ab <1 IU/mL (0-9)
[2021-07-22 06:08] LABS: Angiotensin Convert Enzyme 50 U/L (14-82); Ceruloplasmin 20.3 mg/dL (19.0-39.0); Cytoplasmic Ab (C-ANCA) <1:20 titer (Neg:<1:20); Endomysial Antibody IgA Negative (Negative); HEPATITIS B SURFACE AG Negative (Negative); Haptoglobin 158 mg/dL (42-296); Hepatitis A IgM Antibody Negative (Negative); Hepatitis B Core AB IgM Negative (Negative); Immunoglobulin A 196 mg/dL (87-352); Immunoglobulin E 947 IU/mL (6-495); Immunoglobulin G 788 mg/dL (586-1602)
[2021-07-22 10:15] LABS: Anti-Smooth Muscle ABS 6 Units (0-19); Hep C Antibodies <0.1 s/co ratio (0.0-0.9); Immunoglobulin M 56 mg/dL (26-217)
[2021-07-22 10:16] LABS: AFP, Tumor Marker 6.9 ng/mL (0.0-8.3); Copper, Serum or Plasma 101 ug/dL (80-158); Perinuclear Ab (P-ANCA) <1:20 titer (Neg:<1:20); t-Transglutaminase IgA <2 U/mL (0-3)
== END 2021-07-16 23:59 | disposition home or self-care (01) ==
PROVIDERS: PCP Internal Medicine; Referring Provider Nurse Practitioner Adult Health; Visit Provider Nurse Practitioner Adult Health
DX: K85.90 Acute pancreatitis without necrosis or infection, unspecified (principal); K76.0 Fatty (change of) liver, not elsewhere classified; D64.9 Anemia, unspecified
CPT/HCPCS: 36415; 80053; 80061; 80074; 82105; 82140; 82150; 82164; 82248; 82390; 82525; 82607; 82728; 82784; 82785; 83010; 83036; 83516; 83540; 83550; 83615; 84443; 85025; 85652; 86140; 86225; 86235; 86255; 86256; 86703

== ENCOUNTER 2021-07-28 07:59 | Outpatient (CLI) | payer MEDICAID, SELFPAY ==
--- NOTE | 2021-07-28 08:02 | US_ITS ---
STUDY: ABDOMINAL ULTRASOUND - ELASTOGRAPHY REASON FOR VISIT: Female, 45 years old. Fatty liver. History of acute pancreatitis. TECHNIQUE: Liver stiffness measurements were obtained on a [employer] RS 85 ultrasound machine using a CA 1-7 probe following the SRU guidelines. 3 measurements were obtained using a 2-D-SWE method. The IQR/M was 13% suggesting a quality data set. TECHNICAL QUALITY: Adequate. COMPARISON: Comparison is made with prior examination dated 06/22/2021. FINDINGS: Liver: And homogeneous echotexture of the liver. Median liver stiffness measured 19 kPa. US/Elastography Parenchyma/Organ IMPRESSION: Liver stiffness measures 19 kPa compatible with F4 Metavir score. Electronically Signed: Denzel Quijano MD at 14:50 EST ,
== END 2021-07-28 23:59 | disposition home or self-care (01) ==
LOC: US 08:00
PROVIDERS: PCP Internal Medicine; Referring Provider Nurse Practitioner Adult Health; Visit Provider Nurse Practitioner Adult Health
DX: K85.90 Acute pancreatitis without necrosis or infection, unspecified (principal); K76.0 Fatty (change of) liver, not elsewhere classified; D64.9 Anemia, unspecified
CPT/HCPCS: 76981

== ENCOUNTER 2021-08-04 07:18 | Outpatient (CLI) | payer MEDICAID, SELFPAY ==
--- NOTE | 2021-08-04 07:19 | MRI_ITS ---
STUDY: MR MRCP WITHOUT CONTRAST REASON FOR EXAM: Female, 45 years old. recurrent pancreatitis TECHNIQUE: Standard MRCP technique was utilized. COMPARISON: Ultrasound 06/22/2021 FINDINGS: Gall Bladder: Normal with no distention or demonstrated fixed intraluminal filling defect. Cystic duct: Normal with no demonstrated fixed filling defect. Intrahepatic ducts: Normal visualized intrahepatic ducts with no demonstrated fixed filling defect, dilation or stricture. Common hepatic duct: Normal with no demonstrated fixed filling defect, dilation or stricture. Common bile duct: Normal with no demonstrated fixed filling defect, dilation or stricture. Pancreatic duct: Normal with no demonstrated fixed filling defect, dilation or stricture. MRI/MRCP Abdomen without Contrast IMPRESSION: Normal MR Cholangiopancreatography (MRCP). Electronically Signed: Nam Degroot MD at 10:28 EST ,
== END 2021-08-04 23:59 | disposition home or self-care (01) ==
LOC: MRI 07:19
PROVIDERS: PCP Internal Medicine; Referring Provider Nurse Practitioner Adult Health; Visit Provider Nurse Practitioner Adult Health
DX: K85.90 Acute pancreatitis without necrosis or infection, unspecified (principal); K76.0 Fatty (change of) liver, not elsewhere classified; D64.9 Anemia, unspecified
CPT/HCPCS: 74181

== ENCOUNTER 2021-08-11 09:03 | Outpatient (CLI) | payer MEDICAID, SELFPAY ==
[2021-08-11 09:54] LABS: International Normalized Ratio 1.1; Prothrombin Time (Protime)PT. 13.3 SECONDS (11.7-14.9)
[2021-08-11 10:05] LABS: ALB/GLOB Ratio 0.7 RATIO (0.9-2.4); AST(SGOT) 173 U/L (15-37); Alanine Aminotransfer ALT/SGPT 71 U/L (13-56); Albumin, Serum 2.8 g/dL (3.2-5.0); Alkaline Phosphatase 221 U/L (45-117); Anion Gap 11 (5-15); BUN 13 mg/dL (7-18); BUN/Creat Ratio 5.1 RATIO (10-20); Bilirubin, Direct 1.48 mg/dL (0.00-0.30); Calcium,Total 8.6 mg/dL (8.5-10.1); Chloride 96 mmol/L (98-107); Creatinine, Serum 2.53 mg/dL (0.55-1.02); EST Glomerular Filtration Rate 22 mL/min (>60); Est Glom Filt Rate - Afr Amer 26 mL/min (>60); Glucose 173 mg/dL (74-106); Potassium 4.1 mmol/L (3.5-5.1); Protein, Total 6.8 g/dL (6.4-8.2); Sodium Level 133 mmol/L (136-145)
== END 2021-08-11 23:59 | disposition home or self-care (01) ==
LOC: LAB 09:04
PROVIDERS: PCP Internal Medicine; Referring Provider Nurse Practitioner Adult Health; Visit Provider Nurse Practitioner Adult Health
DX: K76.0 Fatty (change of) liver, not elsewhere classified (principal)
CPT/HCPCS: 80053; 82248; 85610; 36415

== ENCOUNTER 2021-08-11 11:49 | Observation (INO) | payer MEDICAID, SELFPAY ==
[2021-08-11 11:51] VITALS: BP 118/62; PULSE 108; RESP 16; TEMP 36; O2SAT 97; BMI 21.2
[2021-08-11 12:33] LABS: Lipase 169 U/L (73-393)
--- NOTE | 2021-08-11 12:44 | EDS_ITS ---
HPI History of Present Illness Chief Complaint: Abn Labs Narrative Narrative: Patient with past medical history of chronic nausea and vomiting, chronic diarrhea, fatty liver, recurrent pancreatitis, diabetes, presents with abnormal laboratory work. She states that she was going to see her primary care physician regarding liver issues, and received a call after blood work this morning approximately 1 hour later that her creatinine was elevated. She denies any fevers or chills. However, she states that she has had chronic nausea and vomiting over the last few months. No fevers or chills. She is still making urine. She does have past medical history of hypertension also. She was told that she saw the nurse practitioner was told to get to the hospital immediately because of an elevated creatinine. [facility] Medical History Alcoholism Anxiety Breast implant status Chronic diarrhea Diabetes Fatty liver Gastritis and duodenitis HLD (hyperlipidemia) HTN (hypertension) Nicotine abuse Recurrent acute pancreatitis Home Medications duloxetine 20 mg PO QHS 04/30/18 [History Last Taken 06/20/21] doxepin 150 mg PO QHS 08/30/19 [History Last Taken 06/20/21] albuterol sulfate 90 mcg IH BID PRN 09/16/20 [History Last Taken 09/20/20] alprazolam 0.25 mg PO BID PRN PRN 09/16/20 [History Last Taken Unknown] losartan 50 mg PO DAILY 09/16/20 [History Last Taken 06/21/21] meloxicam 15 mg PO DAILY PRN 09/16/20 [History Last Taken 09/20/20] metformin 500 mg PO BIDCM #0 tab 06/24/21 [Rx Last Taken 06/21/21] glipizide 5 mg tablet 5 mg PO DAILY 07/16/21 [History Last Taken Unknown] doxycycline hyclate 100 mg capsule 100 mg PO BID #28 cap 08/11/21 [Rx Last Taken Unknown] gabapentin 300 mg PO QHS 08/11/21 [History Last Taken Unknown] gabapentin 600 mg PO DAILY 08/11/21 [History Last Taken Unknown] ursodiol 300 mg capsule 300 mg PO BID #180 cap 08/11/21 [Rx Last Taken Unknown] vitamin E 400 unit capsule 800 unit PO DAILY #180 cap 08/11/21 [Rx Last Taken Unknown] Allergy/AdvReac Type Severity Reaction Status Date / Time azithromycin [From Zithromax] AdvReac Diarrhea Verified 08/11/21 11:51 codeine AdvReac Nausea Verified 08/11/21 11:51 promethazine [From Phenergan] AdvReac Vomiting Verified 08/11/21 11:51 Family History Other Cancer Diabetes Heart disease Surgical History H/O breast augmentation H/O: knee surgery Social History 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 HEENT: No sore throat. No neck pain. No loss of vision. No rhinorrhea. Cardiovascular: No chest pain. No palpitations. No pedal edema. Respiratory: No cough, no shortness of breath. Abdominal: No abdominal pain. Positive nausea and vomiting, chronic. Genitourinary: No dysuria. No hematuria. Musculoskeletal: No myalgias. No arthralgias. Neurologic: No headaches. No dizziness. No lightheadedness. Skin: No rash. No change in color. Psychiatric: No depression. No anxiety. EXAM Physical Exam Narrative Exam Narrative: Afebrile. Vital signs noted. HEENT: Normocephalic. Atraumatic. PERRL, EOMI. Neck soft and supple. No point tenderness or step off. Cardiovascular: Regular rate and rhythm. No murmurs, rubs, or gallops appreciated. Respiratory: No tachypnea. Lungs clear to auscultation bilaterally. Gastrointestinal: Abdomen soft, nontender, with normoactive bowel sounds. No rebound or guarding. Neurological: Awake. Alert. Nonfocal, nonlateralizing. Skin: No rash. Normal color. No pallor. Musculoskeletal: No pedal edema. Full range of motion extremities. Const Vital Signs: 08/11/21 11:51 08/11/21 11:57 Temperature 96.8 F L Temperature Source Temporal Pulse Rate 108 H Respiratory Rate 16 Respiratory Effort Normal Non-Labored Respiratory Pattern Normal Blood Pressure 118/62 Blood Pressure Mean 80 Pulse Ox 97 Oxygen Delivery Method Room Air MDM MDM MDM Narrative Medical decision making narrative: I added a lipase today which is normal at 169. I reviewed her records and her creatinine is elevated above 2 today at 2.53. Sodium slightly low 133. She was bolused normal saline. Given her acute kidney injury, I will discuss the patient with the hospitalist for admission. Patient discussed with Dr. Ingram. Patient is in stable condition. Lab Data Labs: Laboratory Results - last 24 hr 08/11/21 09:09 Lipase 169 Discharge Plan Dx/Rx/DC Orders Clinical Impression: Acute kidney injury Disposition Disposition: Acute Care Hospital [facility]
--- NOTE | 2021-08-11 12:59 | NURSING ---
DR WHIT LIEBERMAN
--- NOTE | 2021-08-11 13:00 | HP.PCM.HOS_ITS ---
HPI - General General Date of Admission: 08/11/21 Date of Service: 08/11/21 Chief Complaint: Abnormal labs HPI Narrative DAVID TATE, is a 45 F who presents with abnormal blood work. Patient was recently discharged on 06/24/21 for acute anxieties, duodenitis, gastritis, fatty liver. She was on a statin at the time and that was discontinued. Patient had followed up with GI and had MRCP ordered as well as as liver elastography. MRCP had showed fatty liver. Liver elastography showed liver stiffness measuring 19 kPa. Patient however stated that she has had chronic diarrhea and has multiple bowel movement during the day especially when she urinates. Bowel movements are large in volume. She is also been chronically nauseous and has been vomiting the last few days after eating. She was called to come to the ED because her recent blood work was abnormal with an increasing creatinine of 2.53. Her previous creatinine was less than 1. Patient denies any fever or chills or unusual medications or hematuria or hematemesis. She still says she still makes urine, although dark. Her blood pressure in the ED was 118/62, heart rate 96, pulse ox 96% on room air, temperature 98.2 F. Her sodium was 133, potassium 4.1, chloride 96, bicarbonate 26, BUN 13, creatinine 2.53. Total bilirubin was 2.20, WNL 1.48, AST 172, ALT 71, ALP 221. Lipase was 169. Urine sodium was 17, urine creatinine was 228. [facility] Medical History Alcoholism Anxiety Asthma Breast implant status Chronic diarrhea Cirrhosis Diabetes Diabetes Fatty liver Gastritis and duodenitis HLD (hyperlipidemia) HTN (hypertension) Migraines Nicotine abuse Pancreatitis Recurrent acute pancreatitis Smoker Home Medications duloxetine 20 mg PO QHS 04/30/18 [History Last Taken 08/10/21] doxepin 150 mg PO QHS 08/30/19 [History Last Taken 08/10/21] albuterol sulfate 90 mcg IH BID PRN 09/16/20 [History Last Taken 09/20/20] alprazolam 0.25 mg PO BID PRN PRN 09/16/20 [History Last Taken 08/07/21] losartan 50 mg PO DAILY 09/16/20 [History Last Taken 08/11/21] meloxicam 15 mg PO DAILY PRN 09/16/20 [History Last Taken 08/11/21] metformin 500 mg PO BIDCM #0 tab 06/24/21 [Rx Last Taken 08/11/21] glipizide 5 mg tablet 5 mg PO DAILY 07/16/21 [History Last Taken 08/10/21] doxycycline hyclate 100 mg PO BID 08/11/21 [History Last Taken Unknown] gabapentin 300 mg PO QHS 08/11/21 [History Last Taken 08/10/21] gabapentin 600 mg PO DAILY 08/11/21 [History Last Taken 08/11/21] ursodiol 300 mg PO BID 08/11/21 [History Last Taken Unknown] vitamin E 800 unit PO DAILY 08/11/21 [History Last Taken Unknown] Allergy/AdvReac Type Severity Reaction Status Date / Time azithromycin [From Zithromax] AdvReac Diarrhea Verified 08/11/21 11:51 codeine AdvReac Nausea Verified 08/11/21 11:51 promethazine [From Phenergan] AdvReac Vomiting Verified 08/11/21 11:51 Family History Other Cancer Diabetes Heart disease Surgical History H/O breast augmentation H/O: knee surgery Social History 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 Status: Current every day smoker tobacco type: cigarettes and e- cigarettes alcohol intake: former ROS ROS Narrative Constitutional:Denies: Anorexia, Chills, Fever, Night Sweats, Weight Change Eyes: Denies: Blurred vision, Cataracts, Conjunctivae Inflammation, Pain, Redness, Vision Change HEENT: Denies: Difficulty Hearing, Difficulty Swallowing, Head Aches, Hearing Changes, Sinus Congestion, Sinus Drainage Cardiovascular: Denies: Chest Pain, Orthopnea, Palpitations Respiratory: Denies: Cough, Shortness of breath at rest, Sputum production Gastrointestinal: Admits to nausea and vomiting denies: Abdominal Pain Genitourinary: Denies: Dysuria Musculoskeletal: Denies: Joint Pain, Joint stiffness, Joint swelling, Joint Tenderness Skin: Denies: Rash, Wounds Neurological: Denies: Numbness, Tingling, Focal weakness Vital Signs Vital Signs Vital Signs: 08/11/21 11:51 08/11/21 11:57 Temperature 96.8 F L Temperature Source Temporal Pulse Rate 108 H Respiratory Rate 16 Respiratory Effort Normal Non-Labored Respiratory Pattern Normal Blood Pressure 118/62 Blood Pressure Mean 80 Pulse Ox 97 Oxygen Delivery Method Room Air Weight Weight: 56.2 kg Body Mass Index (BMI) 21.2 Physical Exam Narrative Physical exam: General: Alert, Oriented x3, Cooperative, No apparent distress, Well developed HEENT: Atraumatic Oral: Moist Mucosa Neck: Supple Lungs: Clear to auscultation Cardiovascular: HS I+II, regular, no murmurs Abdomen: Bowel Sounds Present, Soft, Non Tender Extremities: No edema Skin: No rashes, No breakdown Neurological: Grossly intact Psych/Mental Status: Appropriate Results Lab / Micro Data Labs: Laboratory Results - last 24 hr 08/11/21 09:09: Lipase 169 Assessment & Plan Assessment/Plan (1) Acute kidney injury: (2) Transaminitis: PLAN: 1. DAMIR, pre-renal likely secondary to dehydration from chronic diarrhea and nausea vomiting Admitted creatinine 2.53, previous creatinine 0.76 Patient was also on losartan, meloxicam, Cold-Eeze Admit to MedSurg, IV fluids, check FeNa We will hold off on ordering ultrasound of the kidneys and nephrology consult unless her renal function does not improve 2. Elevated transaminases, elevated compared to previous, May be related to #1 Patient with underlying liver cirrhosis from fatty liver Hepatitis panel about a month ago were negative 3. Hyponatremia, admitting Na 133, likely related to #1, previous Na was 140 Will trend labs 4. Type II DM, on glipizide, Metformin We will hold these oral agents, continue with insulin scale blood sugar checks 5. Hypertension, relatively hypotensive, will hold off on losartan Continue to monitor blood pressures 6. DVT PPx- low risk; early ambulation recommended. Charges/Coding Visit Charges Inpatient E&M: 82117 Init Hosp L3
--- NOTE | 2021-08-11 13:05 | NURSING ---
MED SURG [facility] ACUTE KIDNEY INJURY
[2021-08-11 13:13] VITALS: BP 118/62; PULSE 108; RESP 16; TEMP 36; O2SAT 97
--- NOTE | 2021-08-11 13:43 | CM.ED ---
Addendum entered by Shruti Summers 08/11/21 17:30: Will use [facility] pharmacy as first preference if open at time of DC, otherwise [facility] in [place]. JHOANA Sosa Original Note: RN CM Assessment Introduced role of RN CM to patient and patient mother at bedside.? Patient is alert, oriented and able?to participate in RN CM Assessment. ?Care providers, pharmacy, and demographics verified. Admit Dx: IP for DAMIR Re-Admit: No. Was admitted 06/21-06/24/21 for Acute pancreatitis Barriers/Issues: Patient denies etoh use and states that she was told that they were going to refer her to a specialist to check into possibly removing her gallbladder. PCP: Valerie Mullins Specialists: [employer]- Juanita Alvarado Preferred Pharmacy: [facility] Insurance: [employer] Rx Benefit: Yes? LNOK: Mother Theresa Soares LW/HPOA: None, AD information given with SW rack card. Aware can complete inpatient or outpatient. Living Arrangements:?Lives with her 2 children- 15yo, 16yo. States that they are with their father currently. Lives in [facility], 2 steps to enter home. 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 ADL?s: Independent with ambulation and ADLs Transportation: Patient drives and drove self to hospital this episode. Plans to drive self at DC. DME: [employer] HHC: None SNF: None Goal: Home and denies any issues, concerns, or needs with going home. DC PLAN: Home with no anticipated needs identified at this time. JHOANA Sosa
[2021-08-11 14:15] VITALS: BP 93/57; PULSE 96; RESP 16; TEMP 36.8; O2SAT 96
[2021-08-11] MEDS: 0.9% Normal Saline 1,000 ML 125 ML IV ×2 (14:38→21:21)
[2021-08-11] MEDS: 0.9% Saline Lock 10 ML Syringe IV (14:38)
[2021-08-11 15:11] LABS: Bedside Glucose 130 mg/dL (74-106)
[2021-08-11 15:27] LABS: Urine Sodium 17 mmol/L (Not Establ.)
[2021-08-11 18:09] VITALS: BP 138/90; PULSE 104; RESP 18; TEMP 36.9; O2SAT 98
[2021-08-11] MEDS: Insulin Lispro 100 UNIT/ML INSULN.PEN SC (21:19)
[2021-08-11] MEDS: MELATONIN 3 MG TABLET PO (21:21)
[2021-08-11 21:51] LABS: Bedside Glucose 211 mg/dL (74-106)
[2021-08-12] VITALS (7 sets, daily range): BP systolic 130–143; BP diastolic 74–87; PULSE 48–109; RESP 16–18; TEMP 36.9–37.6; O2SAT 96–99
[2021-08-12] MEDS: Acetaminophen 325 MG Tablet 650 MG PO ×3 (02:36→14:43)
[2021-08-12] MEDS: 0.9% Normal Saline 1,000 ML 125 ML IV ×3 (04:46→20:09)
[2021-08-12 06:24] LABS: Absolute Lymphocyte Count 0.63 X10^3/uL (0.83-4.51); Absolute Neutrophil Count 4.2 X10^3/uL (2.0-7.7); Basophil# 0.02 X10^3/uL; Basophil% 0.4 % (0-1); Eosinophil# 0.11 X10^3/uL; Hematocrit 26.4 % (37-47); Hemoglobin 9.2 g/dL (12.0-15.0); Lymphocyte # 0.63 X10^3/ul (0.83-4.51); Lymphocyte % 11.7 % (19-41); Mean Corp Hgb Conc 34.8 g/dL (32-36); Mean Corpuscular Hgb 35.9 pg (27.0-32.0); Mean Corpuscular Volume 103.1 fL (81-99); Mean Platelet Vol. 9.7 fl (6.2-12.0); Monocyte# 0.42 X10^3/uL; Monocyte% 7.8 % (0-10); NRBC Flagged by Analyzer 0 % (0-5); Neutrophil # 4.16 X10^3/uL (2.7-7.7); Neutrophil % 77.5 % (47-70); Platelet Count 154 K/mm3 (150-450); RBC Distribution Width CV 13.8 % (11.6-14.6); Red Blood Count 2.56 M/mm3 (4.2-5.4); White Blood Count 5.4 K/mm3 (4.4-11.0)
[2021-08-12 06:26] LABS: Bedside Glucose 120 mg/dL (74-106)
[2021-08-12 06:52] LABS: ALB/GLOB Ratio 0.7 RATIO (0.9-2.4); AST(SGOT) 124 U/L (15-37); Alanine Aminotransfer ALT/SGPT 60 U/L (13-56); Albumin, Serum 2.4 g/dL (3.2-5.0); Alkaline Phosphatase 179 U/L (45-117); Anion Gap 7 (5-15); BUN 10 mg/dL (7-18); BUN/Creat Ratio 8.9 RATIO (10-20); Calcium,Total 7.5 mg/dL (8.5-10.1); Chloride 103 mmol/L (98-107); Creatinine, Serum 1.12 mg/dL (0.55-1.02); EST Glomerular Filtration Rate 55 mL/min (>60); Est Glom Filt Rate - Afr Amer 67 mL/min (>60); Estimated Creatinine Clearance 56.08 ml/min; Globulin 3.5 g/dL (2.2-4.2); Glucose 99 mg/dL (74-106); Potassium 4.1 mmol/L (3.5-5.1); Protein, Total 5.9 g/dL (6.4-8.2); Sodium Level 136 mmol/L (136-145)
[2021-08-12] MEDS: Ondansetron 4 MG/2 ML Vial IV ×2 (08:06→14:44)
[2021-08-12] MEDS: glipiZIDE 5 MG Tablet PO (08:44)
[2021-08-12] MEDS: Gabapentin 300 MG Capsule 600 MG PO (08:44)
[2021-08-12] MEDS: Ursodiol 250 MG Tablet PO ×2 (08:45→23:56)
[2021-08-12] MEDS: Vitamin E 400 UNITS Capsule 800 UNITS PO (08:45)
[2021-08-12 11:01] LABS: Bedside Glucose 129 mg/dL (74-106)
[2021-08-12] MEDS: ALPRAZolam 0.25 MG Tablet PO (11:01)
[2021-08-12] MEDS: Glucerna Shake 120 ML LIQUID PO ×2 (12:44→17:08)
--- NOTE | 2021-08-12 13:33 | PCM.PN.HOSP ---
Subjective Subjective Follow-up on DAMIR: Patient was seen and examined. She complains of episode of vomiting and nausea. She reported that she vomited 3 times yesterday. She continues to have loose stools. She however feels overall was somehow improved. Denied any fever or chills. Objective Data Objective Data Vital Signs: Vital Signs Temp Pulse Resp BP Pulse Ox 98.7 F 96 16 136/87 H 97 08/12/21 11:13 08/12/21 11:13 08/12/21 11:13 08/12/21 11:13 08/12/21 11:13 Oxygen Delivery Method Room Air Weight: 56.6 kg Body Mass Index (BMI) 20.0 Intake & Output: Intake and Output for Last 24 Hours 08/10/21 08/11/21 08/12/21 23:59 23:59 23:59 Intake Total 1339.58 / 1339.58 2372.91 / 2372.91 Output Total 175 / 175 Balance 1164.58 / 1164.58 2372.91 / 2372.91 Lab / Micro Data Result Diagrams: 08/12/21 05:50 08/12/21 05:50 Labs: Laboratory Results - last 24 hr 08/11/21 15:00: POC Glucose 130 H 08/11/21 15:05: Ur Random Sodium 17, Urine Creatinine 228.00 08/11/21 21:13: POC Glucose 211 H 08/12/21 05:50: WBC 5.4, RBC 2.56 L, Hgb 9.2 L, Hct 26.4 L, MCV 103.1 H, MCH 35.9 H, MCHC 34.8, RDW Std Deviation 52.0 H, RDW Coeff of Teressa 13.8, Plt Count 154, MPV 9.7, Immature Gran % (Auto) 0.600, Neut % (Auto) 77.5 H, Lymph % (Auto) 11.7 L, [place] % (Auto) 7.8, Eos % (Auto) 2.0, Baso % (Auto) 0.4, Absolute Neuts (auto) 4.2, Absolute Lymphs (auto) 0.63 L, Nucleated RBC % 0 08/12/21 05:50: Sodium 136, Potassium 4.1, Chloride 103, Carbon Dioxide 26.0, Anion Gap 7, BUN 10, Creatinine 1.12 H, Estim Creat Clear Calc 56.08, Est GFR (MDRD) Af Amer 67, Est GFR (MDRD) Non-Af 55 L, BUN/Creatinine Ratio 8.9 L, Glucose 99, Calcium 7.5 L, Total Bilirubin 1.80 H, AST 124 H, ALT 60 H, Alkaline Phosphatase 179 H, Total Protein 5.9 L, Albumin 2.4 L, Globulin 3.5, Albumin/Globulin Ratio 0.7 L 08/12/21 06:18: POC Glucose 120 H 08/12/21 10:56: POC Glucose 129 H Physical Exam Narrative Physical exam: General: Alert, Oriented x3, Cooperative, No apparent distress, Well developed HEENT: Atraumatic Oral: Moist Mucosa Neck: Supple Lungs: Clear to auscultation Cardiovascular: HS I+II, regular, no murmurs Abdomen: Bowel Sounds Present, Soft, Non Tender Extremities: No edema Skin: No rashes, No breakdown Neurological: Grossly intact Psych/Mental Status: Appropriate Assessment & Plan Assessment/Plan (1) Acute kidney injury: (2) Transaminitis: PLAN: 1. DAMIR, pre-renal likely secondary to dehydration from chronic diarrhea and nausea vomiting, improved Admitted creatinine 2.53, previous creatinine 0.76 Creatinine is now 1.12; FeNa is 0.1% Continue off losartan, meloxicam Continue on IVF, repeat blood work in a.m. 2. Elevated transaminases, elevated compared to previous, improving May be related to #1 Patient with underlying liver cirrhosis from fatty liver Hepatitis panel about a month ago were negative Continue to monitor 3. Chronic nausea/vomiting/diarrhea, history of pancreatitis, ? Malabsorption from chronic pancreatitis Will consult GI 4. Hyponatremia, hypovolemic, resolved Admitting Na 133, likely related to #1, previous Na was 140 Sodium now is normal at 136 Repeat blood work in a.m. 5. Type II DM, blood sugars are fairly controlled, We will resume on glipizide, Metformin Continue insulin sliding scale with blood glucose checks 6. Hypertension, controlled now, will continue to hold off on losartan Continue to monitor blood pressures 7. DVT PPx- low risk; early ambulation recommended. Charges/Coding Visit Charges Inpatient E&M: 50615 Subs Hosp L2
[2021-08-12 16:25] LABS: Bedside Glucose 110 mg/dL (74-106)
--- NOTE | 2021-08-12 18:22 | CON.PCM.GI_ITS ---
HPI Consult Data Date of Consult: 08/12/21 HPI Narrative HPI Narrative: DAVID TATE, is a 45 F who presented To the office this week for the medicine evaluation of abdominal pain, weight loss, acute idiopathic pancreatitis and abnormal liver function tests with abnormal liver enzymes. She has a 4-year history diagnosis of diabetes mellitus and is on oral medications for diabetes. She has had 3 separate Episodes of pancreatitis with no etiology. She does not drink any alcohol. 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 Her work-up for cholestatic hepatitis include a CT scan abdomen pelvis, ultrasound and eventual liver elastography. Her CT abdomen pelvis did show steatosis which was confirmed by ultrasound. The ultrasound that showed hepatomegaly without common bile duct dilation and steatosis. She recently underwent an elastography that had showed an F3 F4 fibrosis score. She says her last hemoglobin A1c was around 6.3. She has been having worsening nausea and vomiting. She always has loose stools but recently she has been having at least 3-4 episodes of loose stools per day. She has lost approximately 25 pounds. . [facility] Medical History Alcoholism Anxiety Asthma Breast implant status Chronic diarrhea Cirrhosis Diabetes Diabetes Fatty liver Gastritis and duodenitis HLD (hyperlipidemia) HTN (hypertension) Migraines Nicotine abuse Pancreatitis Recurrent acute pancreatitis Smoker Home Medications duloxetine 20 mg PO QHS 04/30/18 [History Last Taken 08/10/21] doxepin 150 mg PO QHS 08/30/19 [History Last Taken 08/10/21] albuterol sulfate 90 mcg IH BID PRN 09/16/20 [History Last Taken 09/20/20] alprazolam 0.25 mg PO BID PRN PRN 09/16/20 [History Last Taken 08/07/21] losartan 50 mg PO DAILY 09/16/20 [History Last Taken 08/11/21] meloxicam 15 mg PO DAILY PRN 09/16/20 [History Last Taken 08/11/21] metformin 500 mg PO BIDCM #0 tab 06/24/21 [Rx Last Taken 08/11/21] glipizide 5 mg tablet 5 mg PO DAILY 07/16/21 [History Last Taken 08/10/21] doxycycline hyclate 100 mg PO BID 08/11/21 [History Last Taken Unknown] gabapentin 300 mg PO QHS 08/11/21 [History Last Taken 08/10/21] gabapentin 600 mg PO DAILY 08/11/21 [History Last Taken 08/11/21] ursodiol 300 mg PO BID 08/11/21 [History Last Taken Unknown] vitamin E 800 unit PO DAILY 08/11/21 [History Last Taken Unknown] Allergy/AdvReac Type Severity Reaction Status Date / Time azithromycin [From Zithromax] AdvReac Diarrhea Verified 08/11/21 11:51 codeine AdvReac Nausea Verified 08/11/21 11:51 promethazine [From Phenergan] AdvReac Vomiting Verified 08/11/21 11:51 Family History Other Cancer Diabetes Heart disease Surgical History H/O breast augmentation H/O: knee surgery Social History 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 Status: Current every day smoker tobacco type: cigarettes and e- cigarettes alcohol intake: former ROS Gastrointestinal Gastrointestinal: Reports bloating, cramping, heartburn, loose stools and nausea Physical Exam Const alert General Appearance: cooperative Orientation / Consciousness: oriented to person HEENT hearing grossly normal bilaterally Head and Scalp: normal to inspection Face and Sinus: face symmetric Nose: external nose normal Mouth: oral and palatal mucosa normal Eyes conjunctivae normal General Eye: normal appearance of both eyes Neck full ROM General: normal visual inspection Lymph Lymphatic: no lymphadenopathy noted Chest inspection of chest normal and palpation of chest normal Chest: symmetrical chest wall rise Resp normal respiratory effort Effort and Inspection: able to speak in complete sentences Cardio regular rate GI non-distended Percussion: normal to percussion Rectal Exam: deferred Neuro Speech: speech normal Gait (Neuro): normal gait Lab / Micro Data Result Diagrams: 08/12/21 05:50 08/12/21 05:50 Labs: Laboratory Results - last 24 hr 08/11/21 21:13: POC Glucose 211 H 08/12/21 05:50: WBC 5.4, RBC 2.56 L, Hgb 9.2 L, Hct 26.4 L, MCV 103.1 H, MCH 35.9 H, MCHC 34.8, RDW Std Deviation 52.0 H, RDW Coeff of Teressa 13.8, Plt Count 154, MPV 9.7, Immature Gran % (Auto) 0.600, Neut % (Auto) 77.5 H, Lymph % (Auto) 11.7 L, [place] % (Auto) 7.8, Eos % (Auto) 2.0, Baso % (Auto) 0.4, Absolute Neuts (auto) 4.2, Absolute Lymphs (auto) 0.63 L, Nucleated RBC % 0 08/12/21 05:50: Sodium 136, Potassium 4.1, Chloride 103, Carbon Dioxide 26.0, Anion Gap 7, BUN 10, Creatinine 1.12 H, Estim Creat Clear Calc 56.08, Est GFR (MDRD) Af Amer 67, Est GFR (MDRD) Non-Af 55 L, BUN/Creatinine Ratio 8.9 L, Glucose 99, Calcium 7.5 L, Total Bilirubin 1.80 H, AST 124 H, ALT 60 H, Alkaline Phosphatase 179 H, Total Protein 5.9 L, Albumin 2.4 L, Globulin 3.5, Albumin/Globulin Ratio 0.7 L 08/12/21 06:18: POC Glucose 120 H 08/12/21 10:56: POC Glucose 129 H 08/12/21 16:21: POC Glucose 110 H Assessment & Plan Assessment/Plan (1) Transaminitis: PLAN: The differential diagnosis for transaminitis does include steatohepatitis,Autoimmune hepatitis,Less likely drug reaction. She denies any alcohol.She needs to undergo liver biopsy for evaluation. I will order that. Her autoimmune hepatitis work-up is pending. (2) Chronic diarrhea: PLAN: Differential diagnosis for chronic diarrhea would be diabetic diarrhea, small bacterial overgrowth, inflammatory bowel disease, dumping syndrome.She should undergo a EGD and colonoscopy with biopsies to rule out eosinophilic disease along with microscopic colitis. (3) Hepatomegaly: PLAN: Hepatomegaly possibly secondary to diabetes. Also dual diagnosis would be amyloidosis, sarcoidosis, hemochromatosis (4) Anemia: PLAN: Anemia chronic disease in the setting of iron deficiency anemia. She will need to go undergo upper and lower endoscopy and possible capsule endoscopy.
[2021-08-12] MEDS: Electrolyte Solution/Peg's 4000 ML PO (19:49)
[2021-08-12] MEDS: Scopolamine 1mg/72hr Patch 1 PATCH TD (19:56)
[2021-08-12] MEDS: Bisacodyl 5 MG Tablet 20 MG PO (19:57)
[2021-08-12] MEDS: Metoclopramide 10 MG/2 ML Vial 5 MG IV (19:59)
[2021-08-12] MEDS: oxyCODONE 5 MG Tablet PO (21:04)
[2021-08-12 21:51] LABS: Bedside Glucose 90 mg/dL (74-106)
[2021-08-12] MEDS: Gabapentin 300 MG Capsule PO (23:55)
[2021-08-12] MEDS: MELATONIN 3 MG TABLET PO (23:55)
[2021-08-12] MEDS: DOXEPIN HCL 50 MG CAPSULE 150 MG PO (23:55)
[2021-08-12] MEDS: DULoxetine Hcl 20 MG Capsule PO (23:55)
[2021-08-13] VITALS (11 sets, daily range): BP systolic 109–135; BP diastolic 73–98; PULSE 82–113; RESP 16–18; TEMP 36.7–37.3; O2SAT 94–100; BMI 20.3
[2021-08-13] MEDS: oxyCODONE 5 MG Tablet PO ×5 (04:20→23:59)
[2021-08-13] MEDS: 0.9% Normal Saline 1,000 ML 125 ML IV ×2 (04:21→13:52)
[2021-08-13 06:01] LABS: Bedside Glucose 101 mg/dL (74-106)
[2021-08-13 06:18] LABS: Absolute Neutrophil Count 2.7 X10^3/uL (2.0-7.7); Basophil# 0.02 X10^3/uL; Basophil% 0.5 % (0-1); Eosinophil# 0.09 X10^3/uL; Eosinophils% 2.3 % (0-5); Hematocrit 24.4 % (37-47); Hemoglobin 8.6 g/dL (12.0-15.0); Lymphocyte % 20.4 % (19-41); Mean Corp Hgb Conc 35.2 g/dL (32-36); Mean Corpuscular Volume 102.1 fL (81-99); Mean Platelet Vol. 9.8 fl (6.2-12.0); Monocyte# 0.29 X10^3/uL; Monocyte% 7.4 % (0-10); NRBC Flagged by Analyzer 0 % (0-5); Neutrophil # 2.69 X10^3/uL (2.7-7.7); Neutrophil % 68.6 % (47-70); Platelet Count 142 K/mm3 (150-450); RBC Distribution Width CV 13.8 % (11.6-14.6); RBC Distribution Width SD 51.8 fl (35.1-43.9); Red Blood Count 2.39 M/mm3 (4.2-5.4); White Blood Count 3.9 K/mm3 (4.4-11.0)
[2021-08-13 06:51] LABS: ALB/GLOB Ratio 0.7 RATIO (0.9-2.4); AST(SGOT) 95 U/L (15-37); Alanine Aminotransfer ALT/SGPT 51 U/L (13-56); Albumin, Serum 2.1 g/dL (3.2-5.0); Alkaline Phosphatase 141 U/L (45-117); Anion Gap 4 (5-15); BUN 5 mg/dL (7-18); BUN/Creat Ratio 7.6 RATIO (10-20); Calcium,Total 7.4 mg/dL (8.5-10.1); Chloride 108 mmol/L (98-107); Creatinine, Serum 0.66 mg/dL (0.55-1.02); EST Glomerular Filtration Rate 102 mL/min (>60); Est Glom Filt Rate - Afr Amer 123 mL/min (>60); Estimated Creatinine Clearance 96.18 ml/min; Glucose 96 mg/dL (74-106); Potassium 3.8 mmol/L (3.5-5.1); Protein, Total 5.1 g/dL (6.4-8.2); Sodium Level 139 mmol/L (136-145)
[2021-08-13] MEDS: ALPRAZolam 0.25 MG Tablet PO (08:27)
[2021-08-13 10:31] LABS: Bedside Glucose 96 mg/dL (74-106)
--- NOTE | 2021-08-13 10:31 | PCM.PN.HOSP ---
Subjective Subjective Follow-up on DAMIR/chronic diarrhea/anemia: Patient was seen and examined. She is n.p.o. going for EGD and colonoscopy. Biopsy scheduled for tomorrow as well as gastric emptying study. Objective Data Objective Data Vital Signs: Vital Signs Temp Pulse Resp BP Pulse Ox 98.3 F 95 18 121/73 H 96 08/13/21 08:29 08/13/21 08:29 08/13/21 08:29 08/13/21 08:29 08/13/21 08:29 Oxygen Delivery Method Room Air Weight: 57.2 kg Body Mass Index (BMI) 20.0 Intake & Output: Intake and Output for Last 24 Hours 08/11/21 08/12/21 08/13/21 23:59 23:59 23:59 Intake Total 1339.58 / 1339.58 3549.99 / 3549.99 1000 / 1000 Output Total 175 / 175 500 / 500 Balance 1164.58 / 1164.58 3549.99 / 3549.99 500 / 500 Lab / Micro Data Result Diagrams: 08/13/21 05:46 08/13/21 05:46 Labs: Laboratory Results - last 24 hr 08/12/21 10:56: POC Glucose 129 H 08/12/21 16:21: POC Glucose 110 H 08/12/21 21:07: POC Glucose 90 08/13/21 05:46: WBC 3.9 L, RBC 2.39 L, Hgb 8.6 L, Hct 24.4 L, MCV 102.1 H, MCH 36.0 H, MCHC 35.2, RDW Std Deviation 51.8 H, RDW Coeff of Teressa 13.8, Plt Count 142 L, MPV 9.8, Immature Gran % (Auto) 0.800, Neut % (Auto) 68.6, Lymph % (Auto) 20.4, [place] % (Auto) 7.4, Eos % (Auto) 2.3, Baso % (Auto) 0.5, Absolute Neuts (auto) 2.7, Absolute Lymphs (auto) 0.80 L, Nucleated RBC % 0 08/13/21 05:46: Sodium 139, Potassium 3.8, Chloride 108 H, Carbon Dioxide 27.0, Anion Gap 4 L, BUN 5 L, Creatinine 0.66, Estim Creat Clear Calc 96.18, Est GFR (MDRD) Af Amer 123, Est GFR (MDRD) Non-Af 102, BUN/Creatinine Ratio 7.6 L, Glucose 96, Calcium 7.4 L, Total Bilirubin 1.70 H, AST 95 H, ALT 51, Alkaline Phosphatase 141 H, Total Protein 5.1 L, Albumin 2.1 L, Globulin 3.0, Albumin/Globulin Ratio 0.7 L 08/13/21 05:55: POC Glucose 101 08/13/21 10:23: POC Glucose 96 Micro: Microbiology 08/13/21 09:30 Nasal Secretion SARS-CoV-2 Antigen (Rapid) - Final Physical Exam Narrative Physical exam: General: Alert, Oriented x3, Cooperative, No apparent distress, Well developed HEENT: Atraumatic Oral: Moist Mucosa Neck: Supple Lungs: Clear to auscultation Cardiovascular: HS I+II, regular, no murmurs Abdomen: Bowel Sounds Present, Soft, Non Tender Extremities: No edema Skin: No rashes, No breakdown Neurological: Grossly intact Psych/Mental Status: Appropriate Assessment & Plan Assessment/Plan (1) Acute kidney injury: (2) Transaminitis: PLAN: 1. DAMIR, pre-renal likely secondary to dehydration from chronic diarrhea and nausea vomiting, resolved Admitted creatinine 2.53, previous creatinine 0.76, FeNa is 0.1% Creatinine is back to baseline -0.66 Continue off losartan, meloxicam Continue on IVF, repeat blood work in a.m. 2. Elevated transaminases, elevated compared to previous, improving Patient with underlying liver cirrhosis from fatty liver Hepatitis panel about a month ago were negative GI consulted; liver biopsy planned for tomorrow 3.Chronic nausea/vomiting/diarrhea, history of pancreatitis,? Malabsorption from chronic pancreatitis GI consulted, stool studies pending, going for EGD and colonoscopy 4. Anemia, drop in hemoglobin to 8.6 today, hemoglobin was 12.1 about a month ago History of iron deficiency anemia, GI consulted, going for EGD and colonoscopy 5. Hyponatremia, hypovolemic, resolved We will trend lab 5. Type II DM, blood sugars are fairly controlled, Hold oral hypoglycemic agents on account of n.p.o. status Continue insulin sliding scale with blood glucose checks 6. Hypertension, controlled now, will continue to hold off on losartan Continue to monitor blood pressures 7. DVT PPx- low risk; early ambulation recommended. Charges/Coding Visit Charges Inpatient E&M: 53590 Subs Hosp L2
[2021-08-13 11:12] LABS: Ferritin 334 ng/mL (8-252); Iron 40 ug/dL (50-170); Iron Binding Capacity,Total 135 ug/dL (250-450); PERCENT IRON SATURATION 29.6 % (15.0-55.0)
--- NOTE | 2021-08-13 12:00 | IMM_PTH ---
PATIENT: DAVID TATE LOC: MS3 U#:[id number] AGE/SX: 45/F ROOM: [facility] [place] RE08/11/[address]: Dr. Lea Ingram MD : [id number] BED: 1 DIS: 08/14/2021 SPEC #: [id number] RECD: 08/14/21 10:14 STATUS: MILDRED RETom #: [id number] REECE: 08/13/21 12:[address]: Ra Arpithsaan DEPT: IMMUNOHISTOCHEMISTRY RECD BY: Kierra Bell ENTERED: 08/14/21 10:15 SP TYPE: IMMUNO OTHR DR: MD Dr. Valerie Aden MD Tissues: B - Stomach, NOS Procedures: H Pylori (initial) PHYSICIAN & INSTITUTION [place] [id number] SPECIMEN INFORMATION: Tissue Source: B ? Gastric body biopsy Clinical Info: Transaminitis, chronic diarrhea, hepatomegaly, anemia Specimen Number: [id number] CPT code: 48162 METHODOLOGY: Deparaffinized sections of prefer/formalin-fixed tissue or PAP/DQ stained slides are incubated with monoclonal/polyclonal antibodies/oligonucleotide probes. Localization is made via biotin free immunoperoxidase method. Appropriate controls are performed and reacted as expected. Results on target cell population are indicated in the following table: RESULTS: ANTIBODY / CLONE RESULT Block B H Pylori (polyclonal) positive These tests were developed and their performance characteristics determined by [facility]. They may not have been cleared or approved by the U.S. Food and Drug Administration. The FDA has determined that such clearance or approval is not necessary. INTERPRETATION: B. Gastric body, biopsy: Positive for Helicobacter pylori organisms. SJ:robby 08/17/2021
--- NOTE | 2021-08-13 12:00 | EGD_PTH ---
PATIENT: DAVID TATE LOC: MS3 U#:[id number] AGE/SX: 45/F ROOM: [facility] [place] RE08/11/[address]: Dr. Lea Ingram MD : 1975 BED: 1 DIS: 08/14/2021 SPEC #: [id number] RECD: 08/13/21 14:18 STATUS: MILDRED CAMACHO #: [id number] REECE: 08/13/21 12:[address]: Dougie Munson DEPT: SURGICAL PATHOLOGY RECD BY: Heaven Galindo ENTERED: 08/14/21 09:35 SP TYPE: EGD BIOPSY OTHR DR: MD Dr. Valerie Aden MD Tissues: A - Duodenum, NOS B - Gastric mucous membrane C - Ileum, NOS D - COLON BIOPSY E - Sigmoid colon biopsy Procedures: Surgery Specimen Level IV Comments: @ Ordering doctor for SUIV edited from to @ by AR at 08/14/21 1348 @ Submitting doctor edited from to @ by RGOOD at 08/14/21 1348 HEADER OPERATION: Colonoscopy, EGD ([facility] [place]), biopsy, polypectomy PRE-OP DIAGNOSIS: Transaminitis, chronic diarrhea, hepatomegaly, anemia TISSUE SUBMITTED: A ? Duodenum biopsy, B ? Gastric body biopsy, C ? Terminal ileum biopsy, D ? Random colonic biopsy, E ? Sigmoid polyp MICROSCOPIC DIAGNOSIS A. Duodenum, biopsy: Fragments of duodenal mucosa with focal gastric metaplasia. B. Gastric body, biopsy: Moderate chronic active gastritis. See comment. C. Terminal ileum, biopsy: Fragments of small intestinal mucosa, no pathologic diagnosis. D. Colon, random biopsy: Fragments of colonic mucosa, no pathologic diagnosis. E. Sigmoid polyp, polypectomy: Tubular adenoma. SJ:rg 08/17/2021 COMMENT B. The results of immunohistochemistry for Helicobacter pylori will be reported separately ([id number]). MICROSCOPIC DESCRIPTION Slides are reviewed. GROSS DESCRIPTION A - Received in fixative is one container labeled with the patient's name and designated duodenum biopsy. The specimen consists of two irregular fragments of light moya soft tissue that in aggregate measure 0.6 x 0.5 x 0.2 cm. The specimen is totally submitted in one cassette. B - Received in fixative is one container labeled with the patient's name and designated gastric body biopsy. The specimen consists of multiple irregular fragments of light moya soft tissue that in aggregate measure 1 x 0.8 x 0.1 cm. The specimen is totally submitted in one cassette. C - Received in fixative is one container labeled with the patient's name and designated terminal ileum biopsy. The specimen consists of two irregular fragments of light moya soft tissue that in aggregate measure 1 x 0.5 x 0.1 cm. The specimen is totally submitted in one cassette. D - Received in fixative is one container labeled with the patient's name and designated random colon biopsy. The specimen consists of multiple irregular fragments of light moya soft tissue that in aggregate measure 2.5 x 0.6 x 0.1 cm. The specimen is totally submitted in one cassette. E - Received in fixative is one container labeled with the patient's name and designated sigmoid polyp. The specimen consists of one irregular fragment of light moya soft tissue that measures 0.8 x 0.3 x 0.1 cm. The specimen is totally submitted in one cassette. / AM:robby 08/14/2021 TC:2 CPT: 53141 x5
--- NOTE | 2021-08-13 13:09 | OP.EGD_ITS ---
Patient Name: Zara Mcintosh Procedure Date: 08/13/2021 12:15 PM Date of : 1975 Age: 45 Procedure: Upper GI endoscopy Indications: Epigastric abdominal pain Providers: Dougie Munson DO Medicines: Propofol per Anesthesia Patient Profile: This is a 45 year old female. Refer to note in patient chart for documentation of history and physical. Patient has symptoms. Is status post in the distant past. Complications: No immediate complications. Procedure: Pre-Anesthesia Assessment: - Prior to the procedure, a History and Physical was performed, and patient medications and allergies were reviewed. The patient is competent. The risks and benefits of the procedure and the sedation options and risks were discussed with the patient. All questions were answered and informed consent was obtained. Patient identification and proposed procedure were verified by the physician in the pre-procedure area. Mental Status Examination: alert and oriented. Airway Examination: normal oropharyngeal airway and neck mobility. Respiratory Examination: clear to auscultation. CV Examination: normal. Prophylactic Antibiotics: The patient does not require prophylactic antibiotics. Prior Anticoagulants: The patient has taken no previous anticoagulant or antiplatelet agents. After reviewing the risks and benefits, the patient was deemed in satisfactory condition to undergo the procedure. The anesthesia plan was to use minimal sedation / analgesia (anxiolysis). Immediately prior to administration of medications, the patient was re-assessed for adequacy to receive sedatives. The heart rate, respiratory rate, oxygen saturations, blood pressure, adequacy of pulmonary ventilation, and response to care were monitored throughout the procedure. The physical status of the patient was re-assessed after the procedure. After obtaining informed consent, the endoscope was passed under direct vision. Throughout the procedure, the patient's blood pressure, pulse, and oxygen saturations were monitored continuously. The colonoscope was introduced through the mouth, and advanced to the second part of duodenum. The upper GI endoscopy was accomplished without difficulty. The patient tolerated the procedure well. Moderate Sedation: Moderate (conscious) sedation was administered by the endoscopy nurse and supervised by the endoscopist. The following parameters were monitored: oxygen saturation, heart rate, blood pressure, and response to care. Total physician intraservice time was 15 minutes. Scope In: 12:30:29 PM Scope Out: 12:37:55 PM Total Procedure Duration Time 0 hours 7 minutes 26 seconds Findings: The examined esophagus was normal. A single dispersed, 23 mm non-bleeding erosion was found in the gastric body. There were no stigmata of recent bleeding. Biopsies were taken with a cold forceps for histology. Verification of patient identification for the specimen was done. Estimated blood loss was minimal. Four non-bleeding superficial duodenal ulcers with no stigmata of bleeding were found in the duodenal bulb. The largest lesion was 3 mm in largest dimension. Biopsies were taken with a cold forceps for histology. Verification of patient identification for the specimen was done. Estimated blood loss was minimal. Impression: - Normal esophagus. - Non-bleeding erosive gastropathy. Biopsied. - Multiple non-bleeding duodenal ulcers with no stigmata of bleeding. Biopsied. Recommendation: - Return patient to [facility] for [facility] care. - Resume previous diet. - Continue present medications. - Await pathology results. - Return to GI office. Procedure Code(s): --- Professional --- 30612, Esophagogastroduodenoscopy, flexible, transoral; with biopsy, single or multiple 59829, 59, Moderate sedation services provided by the same physician or other qualified health child caregiver private home performing the diagnostic or therapeutic service that the sedation supports, requiring the presence of an independent trained observer to assist in the monitoring of the patient's level of consciousness and physiological status; initial 15 minutes of intraservice time, patient age 5 years or older CPT copyright 2017 [employer]. All rights reserved. The codes documented in this report are preliminary and upon medical coder review may be revised to meet current compliance requirements. Dougie Munson DO 08/13/2021 1:09:00 PM This report has been signed electronically. Number of Addenda: 1 Note Initiated On: 08/13/2021 12:15 PM Addendum Number: 1 Addendum Date: 02/24/2022 6:24:07 AM MAC was used as sedation for this procedure. Dougie Munson DO 02/24/2022 6:24:13 AM This report has been signed electronically.
--- NOTE | 2021-08-13 13:10 | OP.CCLET_ITS ---
02/24/2022 Valerie Mullins [address] [place] [address] Re : Upper GI endoscopy procedure for Zara Mcintosh Dear Dr. Mullins This procedure was performed on July. My impressions and recommendations are as follows: Impressions : - Normal esophagus. - Non-bleeding erosive gastropathy. Biopsied. - Multiple non-bleeding duodenal ulcers with no stigmata of bleeding. Biopsied. Recommendations : - Return patient to [facility] for ongoing care. - Resume previous diet. - Continue present medications. - Await pathology results. - Return to GI office. My findings are described in the full procedure note, which is enclosed. If I can be of further assistance, please feel free to contact me at . Sincerely, Dougie Munson, 08/13/2021 1:09:00 PM This report has been signed electronically.
--- NOTE | 2021-08-13 13:16 | OP.COLON_ITS ---
Patient Name: Zara Mcintosh Procedure Date: 08/13/2021 12:38 PM Date of : 1975 Age: 45 Procedure: Colonoscopy Indications: Clinically significant diarrhea of unexplained origin Providers: Dougie Munson DO Medicines: See the Anesthesia note for documentation of the administered medications Patient Profile: This is a 45 year old female. Refer to note in patient chart for documentation of history and physical. Patient has symptoms. Is status post in the distant past. Last Colonoscopy: several years ago. Complications: No immediate complications. Procedure: Pre-Anesthesia Assessment: - Prior to the procedure, a History and Physical was performed, and patient medications and allergies were reviewed. The patient is competent. The risks and benefits of the procedure and the sedation options and risks were discussed with the patient. All questions were answered and informed consent was obtained. Patient identification and proposed procedure were verified by the physician in the pre-procedure area. Mental Status Examination: alert and oriented. Airway Examination: normal oropharyngeal airway and neck mobility. Respiratory Examination: clear to auscultation. CV Examination: normal. Prophylactic Antibiotics: The patient does not require prophylactic antibiotics. Prior Anticoagulants: The patient has taken no previous anticoagulant or antiplatelet agents. After reviewing the risks and benefits, the patient was deemed in satisfactory condition to undergo the procedure. The anesthesia plan was to use minimal sedation / analgesia (anxiolysis). Immediately prior to administration of medications, the patient was re-assessed for adequacy to receive sedatives. The heart rate, respiratory rate, oxygen saturations, blood pressure, adequacy of pulmonary ventilation, and response to care were monitored throughout the procedure. The physical status of the patient was re-assessed after the procedure. After I obtained informed consent, the scope was passed under direct vision. Throughout the procedure, the patient's blood pressure, pulse, and oxygen saturations were monitored continuously. The colonoscope was introduced through the anus and advanced to the terminal ileum. The colonoscopy was performed without difficulty. The patient tolerated the procedure well. The quality of the bowel preparation was adequate. Moderate Sedation: Moderate (conscious) sedation was administered by the endoscopy nurse and supervised by the endoscopist. The patient's oxygen saturation, heart rate, blood pressure and response to care were monitored. Total physician intraservice time was 15 minutes. Scope In: 12:42:26 PM Scope Withdrawal Time 0 hours 10 minutes 57 seconds Scope Out: 1:00:34 PM Total Procedure Duration Time 0 hours 18 minutes 8 seconds Findings: The perianal and digital rectal examinations were normal. A 9 mm polyp was found in the sigmoid colon. The polyp was sessile. The polyp was removed with a hot snare. Resection and retrieval were complete. Verification of patient identification for the specimen was done. Estimated blood loss was minimal. An area of mildly congested mucosa was found in the sigmoid colon, in the descending colon, at the splenic flexure and at the hepatic flexure. Biopsies for histology were taken with a cold forceps from the ascending colon, right colon, left colon, transverse colon, right transverse colon, left transverse colon, descending colon and sigmoid colon for evaluation of microscopic colitis. Estimated blood loss was minimal. A patchy area of the terminal ileum was congested. Biopsies were taken with a cold forceps for histology. Verification of patient identification for the specimen was done. Estimated blood loss was minimal. Impression: - One 9 mm polyp in the sigmoid colon, removed with a hot snare. Resected and retrieved. - Congested mucosa in the sigmoid colon, in the descending colon, at the splenic flexure and at the hepatic flexure. Biopsied. - Congested mucosa in the terminal ileum. Biopsied. Recommendation: - Discharge patient to home. - Resume previous diet. - Continue present medications. - Await pathology results. - Repeat colonoscopy in 5 years for surveillance. - Return to GI office. Procedure Code(s): --- Professional --- 23585, Colonoscopy, flexible; with removal of tumor(s), polyp(s), or other lesion(s) by snare technique 97847, 59, Colonoscopy, flexible; with biopsy, single or multiple 82337, 59, Moderate sedation services provided by the same physician or other qualified health child caregiver performing the diagnostic or therapeutic service that the sedation supports, requiring the presence of an independent trained observer to assist in the monitoring of the patient's level of consciousness and physiological status; initial 15 minutes of intraservice time, patient age 5 years or older CPT copyright 2017 [employer]. All rights reserved. The codes documented in this report are preliminary and upon injection mold tooling technician review may be revised to meet current compliance requirements. Dougie Munson DO 08/13/2021 1:15:53 PM This report has been signed electronically. Number of Addenda: 1 Note Initiated On: 08/13/2021 12:38 PM Addendum Number: 1 Addendum Date: 02/24/2022 6:24:22 AM MAC was used as sedation for this procedure. Dougie Munson DO 02/24/2022 6:24:26 AM This report has been signed electronically.
--- NOTE | 2021-08-13 13:17 | OP.CCLET_ITS ---
02/24/2022 Valerie Mullins [address] [place] [address] Re : Colonoscopy procedure for Zara Mcintosh Dear Dr. Mullins This procedure was performed on July. My impressions and recommendations are as follows: Impressions : - One 9 mm polyp in the sigmoid colon, removed with a hot snare. Resected and retrieved. - Congested mucosa in the sigmoid colon, in the descending colon, at the splenic flexure and at the hepatic flexure. Biopsied. - Congested mucosa in the terminal ileum. Biopsied. Recommendations : - Discharge patient to home. - Resume previous diet. - Continue present medications. - Await pathology results. - Repeat colonoscopy in 5 years for surveillance. - Return to GI office. My findings are described in the full procedure note, which is enclosed. If I can be of further assistance, please feel free to contact me at . Sincerely, Dougie Munson, 08/13/2021 1:15:53 PM This report has been signed electronically.
[2021-08-13] MEDS: Gabapentin 300 MG Capsule 600 MG PO (16:03)
[2021-08-13 16:06] LABS: Bedside Glucose 225 mg/dL (74-106)
[2021-08-13] MEDS: Insulin Lispro 100 UNIT/ML INSULN.PEN SC ×2 (16:06→21:39)
[2021-08-13] MEDS: Glucerna Shake 120 ML LIQUID PO (18:23)
[2021-08-13] MEDS: Gabapentin 300 MG Capsule PO (20:01)
[2021-08-13] MEDS: DULoxetine Hcl 20 MG Capsule PO (21:38)
[2021-08-13] MEDS: DOXEPIN HCL 50 MG CAPSULE 150 MG PO (21:38)
[2021-08-13] MEDS: MELATONIN 3 MG TABLET PO (21:39)
[2021-08-13] MEDS: Ursodiol 250 MG Tablet PO (21:39)
[2021-08-13 21:46] LABS: Bedside Glucose 159 mg/dL (74-106)
[2021-08-14] VITALS (12 sets, daily range): BP systolic 101–142; BP diastolic 67–93; PULSE 75–92; RESP 14–25; TEMP 36.4–36.7; O2SAT 94–100; BMI 20.2
[2021-08-14] MEDS: 0.9% Normal Saline 1,000 ML 125 ML IV (00:01)
[2021-08-14] MEDS: oxyCODONE 5 MG Tablet PO ×4 (05:25→17:54)
[2021-08-14 06:25] LABS: Bedside Glucose 138 mg/dL (74-106)
[2021-08-14 06:51] LABS: Absolute Lymphocyte Count 0.94 X10^3/uL (0.83-4.51); Absolute Neutrophil Count 2.1 X10^3/uL (2.0-7.7); Basophil# 0.01 X10^3/uL; Basophil% 0.3 % (0-1); Eosinophil# 0.06 X10^3/uL; Eosinophils% 1.7 % (0-5); Hematocrit 25.2 % (37-47); Hemoglobin 8.5 g/dL (12.0-15.0); Lymphocyte # 0.94 X10^3/ul (0.83-4.51); Lymphocyte % 26.8 % (19-41); Mean Corp Hgb Conc 33.7 g/dL (32-36); Mean Corpuscular Hgb 35.4 pg (27.0-32.0); Mean Platelet Vol. 10.2 fl (6.2-12.0); Monocyte# 0.33 X10^3/uL; Monocyte% 9.4 % (0-10); NRBC Flagged by Analyzer 0 % (0-5); Neutrophil # 2.14 X10^3/uL (2.7-7.7); Neutrophil % 60.9 % (47-70); Platelet Count 144 K/mm3 (150-450); RBC Distribution Width SD 53.7 fl (35.1-43.9); White Blood Count 3.5 K/mm3 (4.4-11.0)
[2021-08-14 07:12] LABS: ALB/GLOB Ratio 0.7 RATIO (0.9-2.4); AST(SGOT) 79 U/L (15-37); Alanine Aminotransfer ALT/SGPT 49 U/L (13-56); Albumin, Serum 2.3 g/dL (3.2-5.0); Alkaline Phosphatase 134 U/L (45-117); Anion Gap 6 (5-15); BUN 4 mg/dL (7-18); BUN/Creat Ratio 5.8 RATIO (10-20); Calcium,Total 7.6 mg/dL (8.5-10.1); Chloride 108 mmol/L (98-107); Creatinine, Serum 0.68 mg/dL (0.55-1.02); EST Glomerular Filtration Rate 98 mL/min (>60); Est Glom Filt Rate - Afr Amer 118 mL/min (>60); Estimated Creatinine Clearance 93.18 ml/min; Globulin 3.4 g/dL (2.2-4.2); Glucose 132 mg/dL (74-106); Potassium 3.7 mmol/L (3.5-5.1); Protein, Total 5.7 g/dL (6.4-8.2); Sodium Level 140 mmol/L (136-145)
[2021-08-14 07:14] LABS: International Normalized Ratio 1.1; Prothrombin Time (Protime)PT. 13.4 SECONDS (11.7-14.9)
[2021-08-14 07:15] LABS: Partial Thromboplast Time 34.4 Seconds (24.1-36.2)
[2021-08-14] MEDS: Gabapentin 300 MG Capsule 600 MG PO (08:03)
[2021-08-14] MEDS: Ursodiol 250 MG Tablet PO (08:04)
[2021-08-14] MEDS: 0.9% Normal Saline 1,000 ML 75 ML IV (11:33)
[2021-08-14 12:11] LABS: Bedside Glucose 126 mg/dL (74-106)
--- NOTE | 2021-08-14 13:30 | US_ITS ---
CLINICAL HISTORY: Female, 45 years old. Steatosis. Concerns for cirrhosis. PROCEDURE: Ultrasound guided random liver biopsy. RADIATION DOSAGE (If Supplied By Facility): None. CONSENT: Obtained and placed in chart. SEDATION: 1 mg of VERSED. 50 mcg of FENTANYL. LIDOCAINE: 10 mL of 2% LIDOCAINE. TECHNIQUE: (All elements of maximal sterile barrier technique followed, including US elements as applicable) The right inferior hepatic lobe was surveyed with ultrasound. Skin surface was marked for needle entry. Utilizing ultrasound guidance, 3 18-gauge random core biopsy samples were obtained from the right inferior hepatic lobe and sent for pathology. Immediate post biopsy imaging of the liver and biopsy site demonstrated no acute findings. The patient was returned to the floor in stable condition. SAMPLES: 3 18-gauge random core biopsy samples obtained and sent for pathology. COMPLICATIONS: None. BLOOD LOSS: None. US/Liver Biopsy Ultrasound IMPRESSION: Successful ultrasound-guided random liver biopsy. Electronically Signed: Gonzalez Zhou, at 16:14 EDT ,
[2021-08-14] MEDS: Midazolam 2 MG/2 ML Syringe IV (14:38)
[2021-08-14] MEDS: fentaNYL 100 MCG/2 ML Ampul IV (14:38)
[2021-08-14] MEDS: Lidocaine 2% (20 ml mdv) 20 ML Vial INFILT (14:45)
--- NOTE | 2021-08-14 14:50 | LIV_PTH ---
PATIENT: DAVID TATE LOC: MS3 U#:[id number] AGE/SX: 45/F ROOM: [facility] [place] RE08/11/[address]: Dr. Lea Ingram MD : 1975 BED: 1 DIS: 08/14/2021 SPEC #: [id number] RECD: 08/14/21 15:11 STATUS: MILDRED CAMACHO #: [id number] REECE: 08/14/21 14:[address]: Lea Ingram DEPT: SURGICAL PATHOLOGY RECD BY: Heaven Galindo ENTERED: 08/17/21 10:33 SP TYPE: LIVER RES OTHR DR: Dr. Valerie Mullins MD Tissues: Liver, NOS Procedures: PAS with Diastase (control) Trichrome (control) Special Stain Group II PAS Stain (control) Surgery Specimen Level V Retic (control) Iron Stain (control) HEADER OPERATION: Ultrasound-guided liver biopsy PRE-OP DIAGNOSIS: Cirrhosis TISSUE SUBMITTED: Liver MICROSCOPIC DIAGNOSIS Liver, core biopsy: Consistent with cirrhosis with extensive macro- and microvesicular steatosis. See microscopic description and comment. SJ:robby 08/18/2021 COMMENT Correlation with clinical, laboratory findings and appropriate follow up are necessary. Case has been reviewed in consultation with Dr. Garber who concurs with the above diagnosis. IDC:POLO MICROSCOPIC DESCRIPTION Slides are reviewed. The specimen shows liver parenchymal tissue with distortion of normal lobular architecture into multiple nodules divided by fibrous septae. The hepatocytes show extensive macro- and microvesicular steatosis. Fibrous area between the nodules shows minimal chronic inflammation. Significant lobular inflammation is not seen. Iron stain shows absent iron. Trichrome and reticulin stain highlights the fibrous septae. Trichrome stain also shows pericellular fibrosis. PAS stain with and without diastase do not show any abnormal accumulation protein. All stains are performed with appropriate matched controls. GROSS DESCRIPTION Received in fixative is one container labeled with the patient's name and designated liver. The specimen consists of multiple elongated fragments of light moya soft tissue that in aggregate measure 2.3 x 0.5 x <0.1 cm. The specimen is totally submitted in one cassette. / AM:robby 08/17/2021 TC:5 [facility]: [id number], [id number] x5 ADDENDUM ADDENDUM ADDENDUM ADDENDUM ADDENDUM ADDENDUM ADDENDUM ADDENDUM ADDENDUM ADDENDUM ADDENDUM ADDENDUM ADDENDUM 11/18/2021 10:17 ADDENDUM 11/18/2021 10:17 ADDENDUM 11/18/2021 10:17 ADDENDUM 11/18/2021 10:17 ADDENDUM 11/18/2021 10:17 This addendum is added to incorporate an outside pathology consultation report. The case was examined at [facility] (#[id number]) and the following diagnosis was rendered. Liver, needle biopsy: Predominantly large droplet macrovesicular steatosis involving about 70% of the hepatic parenchyma with features of superimposed steatohepatitis (WILMA activity index 5/8). Advanced bridging fibrosis with occasional central stellate scarring (MARTINEZ fibrosis stage 3/4). Please see complete above mentioned consultation report in EMR
--- NOTE | 2021-08-14 14:52 | DS.PCM_ITS ---
Providers Date of Admission: 08/11/21 Date of Discharge: 08/14/21 Primary Care Physician: Dr. Valerie Mullins MD Consultations 08/12/21 10:55 Consult: Gastroenterology Routine Consulting Provider: [facility] Reason for Consult: Nausea/vomiting/chronic diarrhea EMERGENT Consult: No MD Notified: Yes Date Notified: 08/12/21 Time Notified: 10:55 Method of Notification: Verbal Reason For Visit: DAMIR Diagnosis Discharge Diagnosis (1) Acute kidney injury: Status: Acute Code(s): N17.9 - Acute kidney failure, unspecified (2) Transaminitis: Status: Acute Code(s): R74.01 - Elevation of levels of liver transaminase levels Medications at Discharge Home Medications duloxetine 20 mg PO QHS 04/30/18 doxepin 150 mg PO QHS 08/30/19 albuterol sulfate 90 mcg IH BID PRN 09/16/20 alprazolam 0.25 mg PO BID PRN PRN 09/16/20 glipizide 5 mg tablet 5 mg PO DAILY 07/16/21 gabapentin 300 mg PO QHS 08/11/21 gabapentin 600 mg PO DAILY 08/11/21 ursodiol 300 mg PO BID 08/11/21 vitamin E 800 unit PO DAILY 08/11/21 colestipol 1 g PO QHS 30 Days #30 tab 08/14/21 metoclopramide HCl 5 mg PO TID PRN 14 Days #42 tab 08/14/21 Hospital Course Operations None Procedures None Summary of Care Provided Minutes Spent on Discharge: 35 Hospital Course: 45-year-old female with past medical history of chronic diarrhea, type II DM, history of duodenitis, fatty liver, who follows up with GI in the outpatient. Patient was referred from the GI office with abnormal blood work. Her baseline creatinine is less than 1 and routine blood work showed creatinine of 2.53. Patient stated that she she has chronic diarrhea and has also been vomiting. She is also on meloxicam and losartan. Patient was admitted to the MedSurg floor, started on IV fluids. Her Nasima was 0.1%. She was held off losartan and meloxicam. Her blood pressure remained stable. GI was consulted and patient underwent EGD and colonoscopy for evaluation for possible malabsorption and iron deficiency anemia. Patient hemo globin was 8.6, hemoglobin was 12.1 about a month ago. EGD was done on 08/13/21 showed normal esophagus, nonbleeding erosive gastropathy, multiple nonbleeding duodenal ulcers with no stigmata of bleeding. Colonoscopy done on the same day showed one 9 mm polyp in the sigmoid colon, removed with a hot snare, resected and retrieved. Congested mucosa in the sigmoid colon and the descending colon at the splenic flexure and hepatic flexure. Congested mucosa in the terminal ileum. Patient was continued on PPI, started on Reglan. She was discharged on Reglan and colestipol. She will follow-up with GI in 1 week. On the day of discharge, patient was seen and examined. She underwent liver biopsy. Gastric emptying study is planned for the outpatient. Physical Exam Narrative Physical exam: General: Alert, Oriented x3, Cooperative, No apparent distress, Well developed HEENT: Atraumatic Oral: Moist Mucosa Neck: Supple Lungs: Clear to auscultation Cardiovascular: HS I+II, regular, no murmurs Abdomen: Bowel Sounds Present, Soft, Non Tender Extremities: No edema Skin: No rashes, No breakdown Neurological: Grossly intact Psych/Mental Status: Appropriate Weight / BMI Weight Weight: 57.1 kg Body Mass Index (BMI) 20.2 ABG / Lab / Microbiology Data Result Diagrams: 08/14/21 05:45 08/14/21 05:45 Laboratory: Laboratory Results - last 24 hr 08/13/21 16:01: POC Glucose 225 H 08/13/21 21:37: POC Glucose 159 H 08/14/21 05:45: WBC 3.5 L, RBC 2.40 L, Hgb 8.5 L, Hct 25.2 L, MCV 105.0 H, MCH 35.4 H, MCHC 33.7, RDW Std Deviation 53.7 H, RDW Coeff of Teressa 14.0, Plt Count 144 L, MPV 10.2, Immature Gran % (Auto) 0.900, Neut % (Auto) 60.9, Lymph % ( Auto) 26.8, [place] % (Auto) 9.4, Eos % (Auto) 1.7, Baso % (Auto) 0.3, Absolute Neuts (auto) 2.1, Absolute Lymphs (auto) 0.94, Nucleated RBC % 0 08/14/21 05:45: Sodium 140, Potassium 3.7, Chloride 108 H, Carbon Dioxide 26.0, Anion Gap 6, BUN 4 L, Creatinine 0.68, Estim Creat Clear Calc 93.18, Est GFR (MDRD) Af Amer 118, Est GFR (MDRD) Non-Af 98, BUN/Creatinine Ratio 5.8 L, Glucose 132 H, Calcium 7.6 L, Total Bilirubin 1.60 H, AST 79 H, ALT 49, Alkaline Phosphatase 134 H, Total Protein 5.7 L, Albumin 2.3 L, Globulin 3.4, Albumin/Globulin Ratio 0.7 L 08/14/21 05:45: PT 13.4, INR 1.1, APTT 34.4 08/14/21 06:19: POC Glucose 138 H 08/14/21 11:36: POC Glucose 126 H Microbiology: Microbiology 08/13/21 09:30 Nasal Secretion SARS-CoV-2 Antigen (Rapid) - Final D/C Instructions Discharge Diet: 1999 Calorie Control Diet Meaningful Use Info Meaningful Use Diagnoses (Choose all that apply): None applicable Discharge Plan Admission Admit Date/Time: 08/11/21 12:56 Primary Reason for Your Visit: Acute kidney injury Attending Provider: Lea Ingram Primary Care Provider: Valerie Mullins Instructions Patient Instructions: Understanding Liver Biopsy, Biopsy Liver Dc Additional Instructions / Restrictions: Take note of changes to your medications. Follow-up with Dr. Munson in a week. Follow-up with your primary care doctor within 1 to 2 weeks. Discharge Orders/Prescriptions Prescriptions: New metoclopramide HCl 5 mg tablet 5 mg PO TID PRN (Reason: nausea and vomiting) 14 Days Qty: 42 RF: 0 colestipol 1 gram tablet 1 g PO QHS 30 Days Qty: 30 RF: 0 Continued glipizide 5 mg tablet 5 mg PO DAILY RF: 0 duloxetine 20 MG capsule 20 mg PO QHS RF: 0 doxepin 150 MG capsule 150 mg PO QHS RF: 0 alprazolam 0.25 MG tablet 0.25 mg PO BID PRN PRN (Reason: Anxiety) RF: 0 albuterol sulfate 90 MCG aerosol powdr breath activated 90 mcg IH BID PRN (Reason: breathing) RF: 0 gabapentin 300 mg capsule 600 mg PO DAILY RF: 0 gabapentin 300 mg capsule 300 mg PO QHS RF: 0 ursodiol 300 mg capsule 300 mg PO BID RF: 0 vitamin E 400 unit capsule 800 unit PO DAILY RF: 0 Discontinued losartan 50 MG tablet 50 mg PO DAILY RF: 0 meloxicam 15 MG tablet 15 mg PO DAILY PRN (Reason: pain) RF: 0 metformin 500 MG tablet 500 mg PO BIDCM Qty: 0 RF: 0 doxycycline hyclate 100 mg capsule 100 mg PO BID RF: 0 Referrals / Follow Up: Valerie Mullins MD [Primary Care Provider] - Disposition Disposition (needs filled in before D/C Order can be placed): Home, Self Care Charges/Coding Visit Charges Inpatient E&M: 73119 Disch Hosp
--- NOTE | 2021-08-14 16:45 | RAD_ITS ---
EXAM: XR ABDOMEN, 2 VIEWS CLINICAL INDICATION: abdominal distention/firmness TECHNIQUE: Frontal view of the abdomen/pelvis with upright view of the abdomen. This report was created using [employer] report generation technology. COMPARISON: None. FINDINGS: LOWER THORAX: No acute pathology. INTRAPERITONEAL SPACE: No free air. GASTROINTESTINAL TRACT: Unremarkable. Non-obstructive. No bowel or stomach distention. ORGANS: Unremarkable as visualized. No organomegaly. No abnormal calcifications. BONES/JOINTS: No acute pathology. SOFT TISSUES: No acute pathology. RAD/Abd Decub and/or Erect(Portabl IMPRESSION: Unremarkable abdominal series. Electronically Signed: Santy Chilel MD at 17:30 EDT ,
[2021-08-14 17:11] LABS: Bedside Glucose 100 mg/dL (74-106)
== END 2021-08-14 18:38 | disposition home or self-care (01) | DRG 469 ==
LOC: ED 12:59 → MS3 13:11
PROVIDERS: Internal Medicine Gastroenterology; Radiology Diagnostic Radiology; Admitting Provider Internal Medicine; Emergency Provider Emergency Medicine; PCP Internal Medicine; Visit Provider Internal Medicine
PROC: 0DJD8ZZ Inspection of Lower Intestinal Tract, Via Natural or Artificial Opening Endoscopic (ICD-10-PCS; CPT 45378; principal; 2021-08-13 11:55)
DX: N17.9 Acute kidney failure, unspecified (principal); K70.30 Alcoholic cirrhosis of liver without ascites; F10.20 Alcohol dependence, uncomplicated; E11.40 Type 2 diabetes mellitus with diabetic neuropathy, unspecified; K86.1 Other chronic pancreatitis; E88.89 Other specified metabolic disorders; A04.8 Other specified bacterial intestinal infections; E87.1 Hypo-osmolality and hyponatremia; D63.8 Anemia in other chronic diseases classified elsewhere; K26.9 Duodenal ulcer, unspecified as acute or chronic, without hemorrhage or perforation; E86.0 Dehydration; D50.9 Iron deficiency anemia, unspecified; I10 Essential (primary) hypertension; E78.5 Hyperlipidemia, unspecified; F17.210 Nicotine dependence, cigarettes, uncomplicated; K52.9 Noninfective gastroenteritis and colitis, unspecified; K76.0 Fatty (change of) liver, not elsewhere classified; F17.290 Nicotine dependence, other tobacco product, uncomplicated; R11.2 Nausea with vomiting, unspecified; E86.1 Hypovolemia; K29.50 Unspecified chronic gastritis without bleeding; D12.5 Benign neoplasm of sigmoid colon; K31.A0 Gastric intestinal metaplasia, unspecified; K90.9 Intestinal malabsorption, unspecified; Z79.84 Long term (current) use of oral hypoglycemic drugs; Z79.899 Other long term (current) drug therapy; R19.7 Diarrhea, unspecified; R74.01 Elevation of levels of liver transaminase levels
CPT/HCPCS: 43239; 45380; 45385; 47000; 36415; 74019; 76942; 80053; 82248; 82570; 82728; 82962; 83540; 83550; 83690; 84300; 85025; 85610; 85730; 87426; 88305; 88307; 88313; 88342; 96361; 96374; 96375; 96376; 97802; 99156; 99218; 99251; 99284; J7030; J7040; A4216; G0378; G0463; J2405

== ENCOUNTER 2021-08-21 11:31 | Outpatient (CLI) | payer MEDICAID, SELFPAY ==
[2021-08-25 21:28] LABS: Calprotectin, Stool 198 ug/g (0-120)
== END 2021-08-21 23:59 | disposition home or self-care (01) ==
LOC: LABSPEC 11:32
PROVIDERS: PCP Internal Medicine; Visit Provider Nurse Practitioner Adult Health
DX: K52.9 Noninfective gastroenteritis and colitis, unspecified (principal)
CPT/HCPCS: 83630; 83993; 87177; 87209; 87329; 87506

== ENCOUNTER 2021-08-31 19:35 | Emergency (ER) | payer MEDICAID, SELFPAY ==
[2021-08-31 19:35] VITALS: BP 122/73; PULSE 122; RESP 16; TEMP 35.8; O2SAT 97; BMI 19.7
--- NOTE | 2021-08-31 20:20 | EDS_ITS ---
HPI History of Present Illness Chief Complaint: Abd Pain Informant: patient Onset/Context/Timing Onset: Days (3 days) Current Severity: Moderate Maximum Severity: Moderate Narrative Narrative: Patient presents secondary abdominal pain and bloating. She has a history of chronic pancreatitis. The symptoms started 2 days ago. She does report nausea and vomiting. She reports having chronic diarrhea but was recently started on some new meds by GI. She now has been more constipated. No fever or chills. PFSH PFSH Medical History Alcoholism Anxiety Asthma Breast implant status Chronic diarrhea Cirrhosis Diabetes Diabetes Fatty liver Gastritis and duodenitis H. pylori infection HLD (hyperlipidemia) HTN (hypertension) Migraines Nicotine abuse Pancreatitis Post-menopausal Recurrent acute pancreatitis Smoker Home Medications duloxetine 20 mg PO QHS 04/30/18 [History Last Taken 08/10/21] doxepin 150 mg PO QHS 08/30/19 [History Last Taken 08/10/21] albuterol sulfate 90 mcg IH BID PRN 09/16/20 [History Last Taken 09/20/20] alprazolam 0.25 mg PO BID PRN PRN 09/16/20 [History Last Taken 08/07/21] glipizide 5 mg tablet 5 mg PO DAILY 07/16/21 [History Last Taken 08/10/21] gabapentin 300 mg PO QHS 08/11/21 [History Last Taken 08/10/21] gabapentin 600 mg PO DAILY 08/11/21 [History Last Taken 08/11/21] ursodiol 300 mg PO BID 08/11/21 [History Last Taken Unknown] colestipol 1 g PO QHS 30 Days #30 tab 08/14/21 [Rx Last Taken Unknown] metoclopramide HCl 5 mg PO TID PRN 14 Days #42 tab 08/14/21 [Rx Last Taken Unknown] ondansetron 4 mg PO Q8H PRN #10 tab 08/31/21 [Rx Last Taken Unknown] oxycodone 5 mg PO Q6H PRN 3 Days #10 tab 08/31/21 [Rx Last Taken Unknown] Allergy/AdvReac Type Severity Reaction Status Date / Time azithromycin [From Zithromax] AdvReac Diarrhea Verified 08/31/21 19:37 codeine AdvReac Nausea Verified 08/31/21 19:37 promethazine [From Phenergan] AdvReac Vomiting Verified 08/31/21 19:37 Family History Other Cancer Diabetes Heart disease Surgical History H/O breast augmentation H/O: knee surgery Social History 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 Status: Current every day smoker tobacco type: cigarettes and e- cigarettes alcohol intake: former ROS ROS ED Constitutional Constitutional ED: Denies chills or fever(s) Eyes Eyes: Denies change in vision ENT ENT ED: Denies sore throat Cardiovascular Cardiovascular: Denies chest pain Respiratory/Chest Respiratory/Chest: Denies cough or dyspnea Gastrointestinal Gastrointestinal: Reports abdominal pain, nausea and vomiting; Denies diarrhea Genitourinary Genitourinary ED: Denies dysuria Musculoskeletal Musculoskeletal: Denies back pain Integumentary Denies rash Neurologic Neurologic: Denies headache(s) or weakness Allergic/Immunologic Allergic/Immunologic ED: Denies urticaria EXAM Physical Exam Const Vital Signs: 08/31/21 19:35 08/31/21 22:05 Temperature 96.5 F L Temperature Source Temporal Pulse Rate 122 H 71 Respiratory Rate 16 16 Blood Pressure 122/73 H 124/77 H Blood Pressure Mean 89 92 Pulse Ox 97 98 Oxygen Delivery Method Room Air Room Air Positive well nourished and well developed General Appearance ED: well developed HEENT Reports moist mucous membranes Eyes PERRL and EOMs intact bilaterally Neck supple Chest Wall inspection of chest normal and palpation of chest normal Resp normal respiratory effort and clear to auscultation bilaterally Cardio regular rate and regular rhythm GI GI Narrative: Abdomen firm and distended. Hypoactive but present bowel sounds noted. Upper abdominal tenderness with no guarding. Extremity normal to inspection Neuro oriented x3 Sensorium / Orientation: alert Psych mental status grossly normal Skin no rashes or lesions noted MDM MDM MDM Narrative Medical decision making narrative: Patient given morphine and Zofran for pain and nausea. Lab work obtained. Lab Data Attestation: I reviewed the patient's lab results. Labs: Laboratory Results - last 24 hr 08/31/21 08/31/21 20:44 20:44 WBC 5.4 RBC 3.24 L Hgb 11.3 L Hct 32.6 L MCV 100.6 H MCH 34.9 H MCHC 34.7 RDW Std Deviation 50.5 H RDW Coeff of Teressa 13.8 Plt Count 181 MPV 10.4 Immature Gran % (Auto) 0.400 Neut % (Auto) 70.1 H Lymph % (Auto) 18.8 L [place] % (Auto) 8.4 Eos % (Auto) 1.9 Baso % (Auto) 0.4 Absolute Neuts (auto) 3.8 Absolute Lymphs (auto) 1.01 Nucleated RBC % 0.4 Sodium 132 L Potassium 3.3 L Chloride 94 L Carbon Dioxide 27.0 Anion Gap 11 BUN 4 L Creatinine 0.76 Estim Creat Clear Calc 79.94 Est GFR (MDRD) Af Amer 105 Est GFR (MDRD) Non-Af 87 BUN/Creatinine Ratio 5.3 L Glucose 339 H Calcium 9.4 Total Bilirubin 2.40 H Direct Bilirubin 1.47 H AST 60 H ALT 35 Alkaline Phosphatase 195 H Total Protein 7.2 Albumin 3.0 L Globulin 4.2 Lipase 631 H Treatment and Re-Evaluation Narrative: Compared to most recent visit lab work appears stable. Her hemoglob in is actually improved. Renal function is improved. Glucose is elevated tonight at 339. Total bilirubin is 2.4 and direct bilirubin is 1.47. AST is 60. Alk phos is 195. These values are consistent with prior labs. Lipase tonight is 631. On repeat evaluation patient is resting more comfortably. Test results are discussed with her. Her lipase is elevated but not quite to the level where I can say she has an acute pancreatitis attack. She will be discharged with prescription for oxycodone and Zofran. She will follow a bland liquid diet. If outpatient management fails she is to return for repeat labs and further evaluation. She voices understanding and agreement. Discharge Plan Triage Chief Complaint: Abd Pain ED Provider: Edith Mccloud Dx/Rx/DC Orders Clinical Impression: Abdominal pain, Elevated lipase Instructions: Abdominal Pain Prescriptions: New oxycodone 5 mg tablet 5 mg PO Q6H PRN (Reason: pain) 3 Days Qty: 10 RF: 0 ondansetron 4 mg tablet,disintegrating 4 mg PO Q8H PRN (Reason: nausea and vomiting) Qty: 10 RF: 0 No Action glipizide 5 mg tablet 5 mg PO DAILY RF: 0 duloxetine 20 MG capsule 20 mg PO QHS RF: 0 doxepin 150 MG capsule 150 mg PO QHS RF: 0 alprazolam 0.25 MG tablet 0.25 mg PO BID PRN PRN (Reason: Anxiety) RF: 0 albuterol sulfate 90 MCG aerosol powdr breath activated 90 mcg IH BID PRN (Reason: breathing) RF: 0 gabapentin 300 mg capsule 600 mg PO DAILY RF: 0 gabapentin 300 mg capsule 300 mg PO QHS RF: 0 ursodiol 300 mg capsule 300 mg PO BID RF: 0 metoclopramide HCl 5 mg tablet 5 mg PO TID PRN (Reason: nausea and vomiting) 14 Days Qty: 42 RF: 0 colestipol 1 gram tablet 1 g PO QHS 30 Days Qty: 30 RF: 0 Primary Care Provider: Valerie Mullins Referrals: Valerie Mullins MD [Primary Care Provider] - Dougie Munson DO [STAFF PHYSICIAN] - 1 Week if not improving Disposition Disposition: Home, Self Care
[2021-08-31] MEDS: Morphine 4 MG/ML Syringe IV (20:42)
[2021-08-31] MEDS: Ondansetron 4 MG/2 ML Vial IV (20:42)
[2021-08-31] MEDS: 0.9% Normal Saline 1,000 ML 150 ML IV (20:44)
[2021-08-31 21:10] LABS: Absolute Lymphocyte Count 1.01 X10^3/uL (0.83-4.51); Absolute Neutrophil Count 3.8 X10^3/uL (2.0-7.7); Basophil# 0.02 X10^3/uL; Basophil% 0.4 % (0-1); Eosinophils% 1.9 % (0-5); Hematocrit 32.6 % (37-47); Hemoglobin 11.3 g/dL (12.0-15.0); Lymphocyte # 1.01 X10^3/ul (0.83-4.51); Lymphocyte % 18.8 % (19-41); Mean Corp Hgb Conc 34.7 g/dL (32-36); Mean Corpuscular Hgb 34.9 pg (27.0-32.0); Mean Corpuscular Volume 100.6 fL (81-99); Mean Platelet Vol. 10.4 fl (6.2-12.0); Monocyte# 0.45 X10^3/uL; Monocyte% 8.4 % (0-10); NRBC Flagged by Analyzer 0.4 % (0-5); Neutrophil # 3.77 X10^3/uL (2.7-7.7); Neutrophil % 70.1 % (47-70); Platelet Count 181 K/mm3 (150-450); RBC Distribution Width CV 13.8 % (11.6-14.6); RBC Distribution Width SD 50.5 fl (35.1-43.9); Red Blood Count 3.24 M/mm3 (4.2-5.4); White Blood Count 5.4 K/mm3 (4.4-11.0)
[2021-08-31 21:20] LABS: AST(SGOT) 60 U/L (15-37); Alanine Aminotransfer ALT/SGPT 35 U/L (13-56); Alkaline Phosphatase 195 U/L (45-117); Anion Gap 11 (5-15); BUN 4 mg/dL (7-18); BUN/Creat Ratio 5.3 RATIO (10-20); Bilirubin, Direct 1.47 mg/dL (0.00-0.30); Calcium,Total 9.4 mg/dL (8.5-10.1); Chloride 94 mmol/L (98-107); Creatinine, Serum 0.76 mg/dL (0.55-1.02); EST Glomerular Filtration Rate 87 mL/min (>60); Est Glom Filt Rate - Afr Amer 105 mL/min (>60); Estimated Creatinine Clearance 79.94 ml/min; Globulin 4.2 g/dL (2.2-4.2); Glucose 339 mg/dL (74-106); Lipase 631 U/L (73-393); Potassium 3.3 mmol/L (3.5-5.1); Protein, Total 7.2 g/dL (6.4-8.2); Sodium Level 132 mmol/L (136-145)
[2021-08-31 22:05] VITALS: BP 124/77; PULSE 71; RESP 16; O2SAT 98
[2021-08-31 22:50] VITALS: BP 139/84; PULSE 72; RESP 16; O2SAT 97
== END 2021-08-31 23:38 | disposition home or self-care (01) ==
PROVIDERS: Emergency Provider Emergency Medicine; PCP Internal Medicine; Visit Provider Emergency Medicine
DX: R10.10 Upper abdominal pain, unspecified (principal); E11.9 Type 2 diabetes mellitus without complications; R74.8 Abnormal levels of other serum enzymes; I10 Essential (primary) hypertension; E78.5 Hyperlipidemia, unspecified; F41.9 Anxiety disorder, unspecified; F17.210 Nicotine dependence, cigarettes, uncomplicated; F17.290 Nicotine dependence, other tobacco product, uncomplicated; Z79.84 Long term (current) use of oral hypoglycemic drugs; Z79.899 Other long term (current) drug therapy
CPT/HCPCS: 80048; 80076; 83690; 85025; 96361; 96374; 96375; 99283; J7030; A4216; J2405

== ENCOUNTER 2021-10-01 09:59 | Emergency (ER) | payer MEDICAID, SELFPAY ==
[2021-10-01 10:00] VITALS: BP 109/81; PULSE 114; RESP 14; TEMP 36; BMI 18.5
[2021-10-01 11:11] LABS: Bacteria 0 SEEN /hpf (None Seen); Mucous, Urine 0 SEEN /hpf (<or=2+); Red Blood Cells-Urine 0 SEEN /hpf (0-5)
[2021-10-01 11:14] LABS: Color, Urine Amber (Yellow); Glucose, Dipstick 1000 mg/dl (Normal); Ketone-Dipstick 15 mg/dl (Negative); Leukocyte Esterase-Dipstick 500 /ul (Negative); Nitrite-Dipstick Negative (Negative); Occult Blood-Urine Negative /ul (Negative); Protein-Dipstick 30 mg/dl (Negative); Specific Gravity, Urine 1.015 (1.002-1.030); Urine Clarity Clear (Clear); Urine Urobilinogen 4 mg/dl (Normal); Urine pH 6.5 (5.0 - 8.0)
[2021-10-01 11:15] LABS: Urine Bilirubin Dipstick 3 mg/dL (Negative)
[2021-10-01 11:20] LABS: Internal QC Validated? YES +Cl - CLEAR BKGD; Pregnancy, Urine Negative Negative; Squamous Epithelial Cells - UA 0-5 SEEN /hpf (5-10); White Blood Cells 0-5 SEEN /hpf (0-5)
[2021-10-01] MEDS: 0.9% Normal Saline 1,000 ML 1000 ML IV (11:24)
[2021-10-01] MEDS: Ondansetron 4 MG/2 ML Vial IV ×2 (11:24→13:24)
[2021-10-01] MEDS: Morphine 4 MG/ML Syringe IV ×2 (11:24→13:24)
[2021-10-01 11:34] LABS: Absolute Lymphocyte Count 1.27 X10^3/uL (0.83-4.51); Absolute Neutrophil Count 5.1 X10^3/uL (2.0-7.7); Basophil# 0.02 X10^3/uL; Basophil% 0.3 % (0-1); Eosinophils% 1.4 % (0-5); Hematocrit 36.5 % (37-47); Hemoglobin 12.5 g/dL (12.0-15.0); Lymphocyte # 1.27 X10^3/ul (0.83-4.51); Lymphocyte % 18.3 % (19-41); Mean Corp Hgb Conc 34.2 g/dL (32-36); Mean Corpuscular Hgb 35.6 pg (27.0-32.0); Mean Platelet Vol. 10.1 fl (6.2-12.0); Monocyte# 0.41 X10^3/uL; Monocyte% 5.9 % (0-10); NRBC Flagged by Analyzer 0 % (0-5); Neutrophil # 5.13 X10^3/uL (2.7-7.7); Neutrophil % 73.8 % (47-70); Platelet Count 212 K/mm3 (150-450); RBC Distribution Width SD 55.5 fl (35.1-43.9); Red Blood Count 3.51 M/mm3 (4.2-5.4)
[2021-10-01 11:51] LABS: AST(SGOT) 99 U/L (15-37); Alanine Aminotransfer ALT/SGPT 58 U/L (13-56); Albumin, Serum 3.2 g/dL (3.2-5.0); Alkaline Phosphatase 237 U/L (45-117); Anion Gap 10 (5-15); BUN 4 mg/dL (7-18); BUN/Creat Ratio 4.5 RATIO (10-20); Bilirubin, Direct 1.57 mg/dL (0.00-0.30); Calcium,Total 9.4 mg/dL (8.5-10.1); Chloride 89 mmol/L (98-107); Creatinine, Serum 0.88 mg/dL (0.55-1.02); EST Glomerular Filtration Rate 73 mL/min (>60); Est Glom Filt Rate - Afr Amer 88 mL/min (>60); Globulin 4.1 g/dL (2.2-4.2); Glucose 425 mg/dL (74-106); Lipase 296 U/L (73-393); Potassium 3.2 mmol/L (3.5-5.1); Protein, Total 7.3 g/dL (6.4-8.2); Sodium Level 130 mmol/L (136-145)
--- NOTE | 2021-10-01 13:20 | EDS_ITS ---
HPI <HERNÁN Fairbanks - Last Filed: 10/01/21 15:32> History of Present Illness Chief Complaint: Abd Pain Narrative Narrative: 46-year-old female with PMH of alcoholic cirrhosis, recurrent pancreatitis, type 2 diabetes presents with abdominal pain and distention which started yesterday. Pain is mainly epigastric she has had nausea and vomiting. She does have a longstanding history of nausea/vomiting and has Zofran but this is not helped. She reports her normal 1-2 episodes of nonbloody diarrhea a day. Normal urination. She is concerned this may be pancreatitis as it feels similar. She stopped drinking alcohol in 2019. She states she is just at the beginning stages of being worked up for liver transplant at [facility]. While undergoing EGD/colonoscopy as a part of this a few weeks ago she was told she had H. pylori but she was not able to keep down the antibiotics. PFSH <HERNÁN Fairbanks - Last Filed: 10/01/21 15:32> PFSH Medical History Alcoholism Anxiety Asthma Breast implant status Chronic diarrhea Cirrhosis Diabetes Diabetes Fatty liver Gastritis and duodenitis H. pylori infection HLD (hyperlipidemia) HTN (hypertension) Migraines Nicotine abuse Pancreatitis Post-menopausal Recurrent acute pancreatitis Smoker Home Medications duloxetine 20 mg PO QHS 04/30/18 [History Last Taken 08/10/21] doxepin 150 mg PO QHS 08/30/19 [History Last Taken 08/10/21] albuterol sulfate 90 mcg IH BID PRN 09/16/20 [History Last Taken 09/20/20] alprazolam 0.25 mg PO BID PRN PRN 09/16/20 [History Last Taken 08/07/21] glipizide 5 mg tablet 5 mg PO DAILY 07/16/21 [History Last Taken 08/10/21] gabapentin 300 mg PO QHS 08/11/21 [History Last Taken 08/10/21] gabapentin 600 mg PO DAILY 08/11/21 [History Last Taken 08/11/21] ursodiol 300 mg PO BID 08/11/21 [History Last Taken Unknown] colestipol 1 g PO QHS 30 Days #30 tab 08/14/21 [Rx Last Taken Unknown] metoclopramide HCl 5 mg PO TID PRN 14 Days #42 tab 08/14/21 [Rx Last Taken Unknown] ondansetron 4 mg PO Q8H PRN #10 tab 08/31/21 [Rx Last Taken Unknown] oxycodone 5 mg PO Q6H PRN 3 Days #10 tab 08/31/21 [Rx Last Taken Unknown] sucralfate [Carafate] 10 ml PO TID #200 ml 10/01/21 [Rx Last Taken Unknown] Allergy/AdvReac Type Severity Reaction Status Date / Time azithromycin [From Zithromax] AdvReac Diarrhea Verified 10/01/21 10:00 codeine AdvReac Nausea Verified 10/01/21 10:00 promethazine [From Phenergan] AdvReac Vomiting Verified 10/01/21 10:00 Family History Other Cancer Diabetes Heart disease Surgical History H/O breast augmentation H/O: knee surgery Social History 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 Eyes: Negative for visual change. ENT: Negative for sore throat, ear pain, rhinorrhea. CVS: Negative for palpitations, chest pain, syncope. Respiratory: Negative for shortness of breath, cough, orthopnea. GI: Positive for abdominal pain, nausea, vomiting, chronic diarrhea. Negative for constipation, melena, hematochezia. : Negative for dysuria, hematuria or frequency. Neuro: Negative for headache, motor/sensory dysfunction. Skin: Negative for rash, abscess, or wound. Musc: Negative for joint pain, swelling, trauma. Heme: Negative for easy bruising, bleeding, lymphadenopathy. EXAM <HERNÁN Fairbanks - Last Filed: 10/01/21 15:32> Physical Exam Narrative Exam Narrative: CONST: Patient sitting in no acute distress. EYES: Normal inspection. ENT: Normal inspection, moist mucous membranes. NECK: Normal inspection. RESP: No respiratory distress, CTAB. CVS: Regular rate and rhythm, no murmur, no gallop. ABD: Moderate abdominal distention with midline epigastric tenderness, hepatomegaly, soft with no guarding or rebound. SKIN: Color normal, no rash, warm, dry, intact. EXTREMITIES: Normal appearance, no pedal edema. NEURO: Oriented x4. PSYCH: Normal affect. Const Vital Signs: 10/01/21 10:00 10/01/21 15:03 Temperature 96.8 F L Temperature Source Temporal Pulse Rate 114 H 72 Respiratory Rate 14 18 Blood Pressure 109/81 H 116/84 H Blood Pressure Mean 90 94 Pulse Ox 98 Oxygen Delivery Method Room Air <Dr. Lj Lundberg DO - Last Filed: 10/01/21 15:50> Physical Exam Const Vital Signs: 10/01/21 10:00 10/01/21 15:03 Temperature 96.8 F L Temperature Source Temporal Pulse Rate 114 H 72 Respiratory Rate 14 18 Blood Pressure 109/81 H 116/84 H Blood Pressure Mean 90 94 Pulse Ox 98 Oxygen Delivery Method Room Air MDM <HERNÁN Fairbanks - Last Filed: 10/01/21 15:32> [facility] Narrative Medical decision making narrative: Patient presents with epigastric pain and abdominal distention. She has a history of cirrhosis, pancreatitis, and GERD with untreated H. pylori. She appears well nontoxic. She was tachycardic at 114, otherwise normal vital signs. Afebrile. She had midline epigastric tenderness and moderate abdominal distention. She has no guarding or rebound. Her labs are all essentially at baseline. She has a normal white count and hemoglobin. BMP shows hyponatremia 130, hypokalemia 3.2 both typical for her. Glucose is 425 with a normal anion gap. Total bili of 2.2, direct bili 1.57, AST/ALT 99/58 all at baseline. Lipase is 296 which is lower than previous. CT scan shows hepatomegaly/fatty liver and mild gallbladder distention but nothing acute. This seems like a flareup of her chronic symptoms and today there is no evidence of infection or pancreatitis or acute gallbladder etiology. I checked [facility] and she was given a short supply of Percocet 1 month ago from the ER. Other than that she is on gabapentin/benzos. I do not feel that opioids are indicated at this time as this is a flareup of a chronic issue. She declined Phenergan stating she is allergic and she has Zofran at home. She did not want a prescription for Carafate or Pepcid I recommended she follow-up with her PCP and GI doctor. Patient counseled on return precautions and was discharged in stable condition. Diagnoses 1. Abdominal pain 2. History of cirrhosis and recurrent pancreatitis Lab Data Labs: Laboratory Results - last 24 hr 10/01/21 10/01/21 10/01/21 11:07 11:15 11:15 WBC 7.0 RBC 3.51 L Hgb 12.5 Hct 36.5 L MCV 104.0 H MCH 35.6 H MCHC 34.2 RDW Std Deviation 55.5 H RDW Coeff of Teressa 15.0 H Plt Count 212 MPV 10.1 Immature Gran % (Auto) 0.300 Neut % (Auto) 73.8 H Lymph % (Auto) 18.3 L [place] % (Auto) 5.9 Eos % (Auto) 1.4 Baso % (Auto) 0.3 Absolute Neuts (auto) 5.1 Absolute Lymphs (auto) 1.27 Nucleated RBC % 0 Sodium 130 L Potassium 3.2 L Chloride 89 L Carbon Dioxide 31.0 Anion Gap 10 BUN 4 L Creatinine 0.88 Estim Creat Clear Calc 65.00 Est GFR (MDRD) Af Amer 88 Est GFR (MDRD) Non-Af 73 BUN/Creatinine Ratio 4.5 L Glucose 425 H Calcium 9.4 Total Bilirubin 2.20 H Direct Bilirubin 1.57 H AST 99 H ALT 58 H Alkaline Phosphatase 237 H Total Protein 7.3 Albumin 3.2 Globulin 4.1 Lipase 296 Urine Color Olga Urine Clarity Clear Urine pH 6.5 Ur Specific [employer] 1.015 Urine Protein 30 H Urine Glucose (UA) 1000 H Urine Ketones 15 H Urine Occult Blood Negative Urine Nitrite Negative Urine Bilirubin 3 H Urine Urobilinogen 4 H Ur Leukocyte Esterase 500 H Urine RBC 0 SEEN Urine WBC 0-5 SEEN Ur Squamous Epith Cells 0-5 SEEN Urine Bacteria 0 SEEN Urine Mucus 0 SEEN Urine Test Negative Radiography Diagnostic Testing: Clinical Impression(s) from Imaging Studies Abdomen/Pelvis CT 10/01/21 13:32 IMPRESSION: Hepatomegaly and diffuse fatty infiltration with the evidence of focal areas of focal fatty sparing. Mild distention of the gallbladder. Electronically Signed: Denzel Quijano MD at 13:50 EDT , <Dr. Lj Lundberg, DO - Last Filed: 10/01/21 15:50> [facility] MDM Narrative Medical decision making narrative: 46-year-old female presenting with acute exacerbation of chronic abdominal pain. Her blood work today was unremarkable. She has no signs of leukocytosis and her hemoglobin are stable. Platelets are normal. Renal function within normal limits. Sodium slightly low at 130 potassium was 3.2. Glucose slightly elevated at 425 without anion gap. LFTs slightly elevated but near baseline. Urinalysis negative for infection. hCG negative. Patient initially medicated for her pain and does request narcotics for home however this does appear to be a chronic issue without any acute findings. I did offer to give the patient Carafate to help with her symptoms and she was amenable to this. She states she is on the transplant list and will likely be following up with GI at [facility] even though she is previously seen Dr. Munson. Patient discharged home in stable condition. Lab Data Attestation: I reviewed the patient's lab results. Labs: Laboratory Results - last 24 hr 10/01/21 10/01/21 10/01/21 11:07 11:15 11:15 WBC 7.0 RBC 3.51 L Hgb 12.5 Hct 36.5 L MCV 104.0 H MCH 35.6 H MCHC 34.2 RDW Std Deviation 55.5 H RDW Coeff of Teressa 15.0 H Plt Count 212 MPV 10.1 Immature Gran % (Auto) 0.300 Neut % (Auto) 73.8 H Lymph % (Auto) 18.3 L [place] % (Auto) 5.9 Eos % (Auto) 1.4 Baso % (Auto) 0.3 Absolute Neuts (auto) 5.1 Absolute Lymphs (auto) 1.27 Nucleated RBC % 0 Sodium 130 L Potassium 3.2 L Chloride 89 L Carbon Dioxide 31.0 Anion Gap 10 BUN 4 L Creatinine 0.88 Estim Creat Clear Calc 65.00 Est GFR (MDRD) Af Amer 88 Est GFR (MDRD) Non-Af 73 BUN/Creatinine Ratio 4.5 L Glucose 425 H Calcium 9.4 Total Bilirubin 2.20 H Direct Bilirubin 1.57 H AST 99 H ALT 58 H Alkaline Phosphatase 237 H Total Protein 7.3 Albumin 3.2 Globulin 4.1 Lipase 296 Urine Color Olga Urine Clarity Clear Urine pH 6.5 Ur Specific [employer] 1.015 Urine Protein 30 H Urine Glucose (UA) 1000 H Urine Ketones 15 H Urine Occult Blood Negative Urine Nitrite Negative Urine Bilirubin 3 H Urine Urobilinogen 4 H Ur Leukocyte Esterase 500 H Urine RBC 0 SEEN Urine WBC 0-5 SEEN Ur Squamous Epith Cells 0-5 SEEN Urine Bacteria 0 SEEN Urine Mucus 0 SEEN Urine Test Negative Radiography Diagnostic Testing: Clinical Impression(s) from Imaging Studies Abdomen/Pelvis CT 10/01/21 13:32 IMPRESSION: Hepatomegaly and diffuse fatty infiltration with the evidence of focal areas of focal fatty sparing. Mild distention of the gallbladder. Electronically Signed: Denzel Quijano MD at 13:50 EDT , Discharge Plan Triage Chief Complaint: Abd Pain ED Provider: Patricia Ronquillo Dx/Rx/DC Orders Clinical Impression: Abdominal pain, Fatty liver Instructions: Abdominal Pain Prescriptions: New sucralfate [Carafate] 100 mg/mL suspension 10 ml PO TID Qty: 200 RF: 0 No Action glipizide 5 mg tablet 5 mg PO DAILY RF: 0 duloxetine 20 MG capsule 20 mg PO QHS RF: 0 doxepin 150 MG capsule 150 mg PO QHS RF: 0 alprazolam 0.25 MG tablet 0.25 mg PO BID PRN PRN (Reason: Anxiety) RF: 0 albuterol sulfate 90 MCG aerosol powdr breath activated 90 mcg IH BID PRN (Reason: breathing) RF: 0 gabapentin 300 mg capsule 600 mg PO DAILY RF: 0 gabapentin 300 mg capsule 300 mg PO QHS RF: 0 ursodiol 300 mg capsule 300 mg PO BID RF: 0 metoclopramide HCl 5 mg tablet 5 mg PO TID PRN (Reason: nausea and vomiting) 14 Days Qty: 42 RF: 0 colestipol 1 gram tablet 1 g PO QHS 30 Days Qty: 30 RF: 0 oxycodone 5 mg tablet 5 mg PO Q6H PRN (Reason: pain) 3 Days Qty: 10 RF: 0 ondansetron 4 mg tablet,disintegrating 4 mg PO Q8H PRN (Reason: nausea and vomiting) Qty: 10 RF: 0 Primary Care Provider: Valerie Mullins Referrals: Valerie Mullins MD [Primary Care Provider] - Activity Restrictions/Additional Instructions: Today your blood work looked at your normal levels. There is no sign of infection. You chronically have some elevated liver enzymes and bilirubin but today's was the same. Lipase was 296 which is down from previous so there is no sign of acute pancreatitis. This may be a flareup of your chronic underlying issues. You do need to follow-up with GI again to get H. pylori treatment. Avoid spicy and fatty foods. I prescribed Phenergan to take as needed for nausea/vomiting. Return if symptoms worsen. Disposition Disposition: Home, Self Care
--- NOTE | 2021-10-01 13:32 | CT_ITS ---
STUDY: CT ABDOMEN AND PELVIS WITH CONTRAST REASON FOR EXAM: Female, 46 years old. Abdominal pain. RADIATION DOSAGE (If Supplied By Facility): CTDIvol = ( 8.00 ) mGy, DLP = ( 316.62 ) mGycm TECHNIQUE: Transaxial images were obtained from the dome of the diaphragm to the symphysis pubis without oral contrast. IV 100mL Isovue-300 was administered. Sagittal and coronal images were reconstructed. Individualized dose optimization techniques were used for this CT. COMPARISON: Comparison is made with prior study dated 2021. FINDINGS: Stable appearance of the bilateral breast implants. The visualized lung bases are unremarkable. The visualized portions of the heart are within normal limits. There is decreased attenuation of the liver consistent with steatosis. Stable focal areas of focal fatty sparing within the right lobe. Hepatomegaly. The gallbladder is mildly distended. Normal spleen. Normal pancreas. Normal bilateral adrenal glands. Normal right kidney. Normal left kidney. Normal visualized stomach. Normal small intestine. There are scattered colonic diverticula consistent with diverticulosis. The appendix is visualized and appears normal. Normal abdominal aorta. Normal inferior vena cava. Normal retroperitoneum. Normal urinary bladder. Normal abdominal wall. Normal osseous structures. CT/Abdomen/Pelvis W IV Cont ONLY IMPRESSION: Hepatomegaly and diffuse fatty infiltration with the evidence of focal areas of focal fatty sparing. Mild distention of the gallbladder. Electronically Signed: Denzel Quijano MD at 13:50 EDT ,
[2021-10-01] MEDS: Potassium Chloride Oral Tablet 20 MEQ PO (14:59)
[2021-10-01 15:03] VITALS: BP 116/84; PULSE 72; RESP 18; O2SAT 98
== END 2021-10-01 15:51 | disposition home or self-care (01) ==
PROVIDERS: Emergency Provider Physician Assistant; PCP Internal Medicine; Visit Provider Physician Assistant
DX: R10.13 Epigastric pain (principal); K70.30 Alcoholic cirrhosis of liver without ascites; F10.20 Alcohol dependence, uncomplicated; E11.65 Type 2 diabetes mellitus with hyperglycemia; K76.0 Fatty (change of) liver, not elsewhere classified; Y90.9 Presence of alcohol in blood, level not specified; G89.29 Other chronic pain; I10 Essential (primary) hypertension; E78.5 Hyperlipidemia, unspecified; E87.1 Hypo-osmolality and hyponatremia; F41.9 Anxiety disorder, unspecified; F17.290 Nicotine dependence, other tobacco product, uncomplicated; Z79.84 Long term (current) use of oral hypoglycemic drugs; Z79.899 Other long term (current) drug therapy; Z87.19 Personal history of other diseases of the digestive system
CPT/HCPCS: 74177; 80048; 80076; 81001; 81025; 83690; 85025; 96361; 96374; 96375; 96376; 99283; Q9967; J2405

== ENCOUNTER 2021-10-05 10:06 | Emergency (ER) | payer MEDICAID, SELFPAY ==
[2021-10-05 10:07] VITALS: BP 134/85; PULSE 99; RESP 16; TEMP 36.2; O2SAT 97; BMI 18.5
--- NOTE | 2021-10-05 10:19 | EDS_ITS ---
HPI History of Present Illness Chief Complaint: Burn Detail of Chief Complaint: Burn to left hand Informant: patient Onset/Context/Timing Onset: Days (Occurred at son's track meet on Tuesday) Mechanism/Context: Burn Location of pain/injuries: Left hand Current Severity: Mild Maximum Severity: Moderate Worsened by: Hot chocolate and blister formation thenar eminence and webspace between th Relieved by: Nothing Associated Symptoms Associated Symptoms: Negative for Parasthesias and Weakness Narrative Narrative: Patient is a 46-year-old who has history of asthma, type 2 diabetes who presents because of discoloration of blister over her thenar eminence. She contacted her physician's office who recommended she come to the emergency department. She has no complaints of paresthesia, anesthesia motors. Tetanus Immunization: 5-10 years Prior similar symptoms: No Recent Illness/Hospitalization: No PFSH PFSH Medical History Alcoholism Anxiety Asthma Breast implant status Chronic diarrhea Cirrhosis Diabetes Diabetes Fatty liver Gastritis and duodenitis H. pylori infection HLD (hyperlipidemia) HTN (hypertension) Migraines Nicotine abuse Pancreatitis Post-menopausal Recurrent acute pancreatitis Smoker Home Medications duloxetine 20 mg PO QHS 04/30/18 [History Last Taken 08/10/21] doxepin 150 mg PO QHS 08/30/19 [History Last Taken 08/10/21] albuterol sulfate 90 mcg IH BID PRN 09/16/20 [History Last Taken 09/20/20] alprazolam 0.25 mg PO BID PRN PRN 09/16/20 [History Last Taken 08/07/21] glipizide 5 mg tablet 5 mg PO DAILY 07/16/21 [History Last Taken 08/10/21] gabapentin 300 mg PO QHS 08/11/21 [History Last Taken 08/10/21] gabapentin 600 mg PO DAILY 08/11/21 [History Last Taken 08/11/21] ursodiol 300 mg PO BID 08/11/21 [History Last Taken Unknown] colestipol 1 g PO QHS 30 Days #30 tab 08/14/21 [Rx Last Taken Unknown] metoclopramide HCl 5 mg PO TID PRN 14 Days #42 tab 08/14/21 [Rx Last Taken Unknown] ondansetron 4 mg PO Q8H PRN #10 tab 08/31/21 [Rx Last Taken Unknown] oxycodone 5 mg PO Q6H PRN 3 Days #10 tab 08/31/21 [Rx Last Taken Unknown] sucralfate [Carafate] 10 ml PO TID #200 ml 10/01/21 [Rx Last Taken Unknown] Allergy/AdvReac Type Severity Reaction Status Date / Time azithromycin [From Zithromax] AdvReac Diarrhea Verified 10/05/21 10:09 codeine AdvReac Nausea Verified 10/05/21 10:09 promethazine [From Phenergan] AdvReac Vomiting Verified 10/05/21 10:09 Family History Other Cancer Diabetes Heart disease Surgical History H/O breast augmentation H/O: knee surgery Social History (Updated 10/05/21 @ 10:[address] 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 Status: Current every day smoker tobacco type: e-cigarettes alcohol intake: former substance use type: does not use ROS ROS ED Constitutional Constitutional ED: Denies chills, fever(s), subjective, sweats or weight loss Gastrointestinal Gastrointestinal: Denies nausea or vomiting Integumentary Reports other Details: Blisters hemorrhagic over thenar eminence ; Denies abscess, Abrasions or rash Endocrine Endocrinology: Denies polydipsia, polyphagia or polyuria Hematologic/Lymphatic Hematologic/Lymphatic: Denies easy bleeding, easy bruising or lymphadenopathy EXAM Physical Exam Const Vital Signs: 10/05/21 10:07 Temperature 97.1 F L Temperature Source Temporal Pulse Rate 99 Respiratory Rate 16 Blood Pressure 134/85 H Blood Pressure Mean 101 Pulse Ox 97 Oxygen Delivery Method Room Air Positive well nourished and well developed General Appearance ED: well developed and NAD HEENT atraumatic Eyes PERRL and EOMs intact bilaterally Resp normal respiratory effort Cardio regular rhythm Rate: regular rate Extremity full ROM; Negative for normal to inspection Extremity Narrative: Hemorrhagic blister thenar eminence left hand and webspace between the thumb and index finger. There is no erythema, warmth, induration. There is no lymphangitis. There is no epitrochlear adenopathy. General Extremety ED: Yes tenderness; Negative for deformity or edema General Extremity: Negative for deformity or edema Neuro oriented x3 and CN's II-XII intact bilaterally Sensorium / Orientation: alert Skin Skin Narrative: Blister thenar eminence that is 3-1/2 x 2-1/2 cm and spherical blister that is 3 cm in diameter webspace of left hand between the index and thumb. Wounds: wounds noted MDM MDM MDM Narrative Medical decision making narrative: Patient has blister formation. These were as pirated using a 25-gauge needle. 3 cc of bloody serous fluid was aspirated from the thenar eminence blister and 5 cc of straw-colored clear fluid was aspirated from the blister in the webspace between the index and thumb, left hand Discharge Plan Triage Chief Complaint: Burn ED Provider: Raphael Huertas Dx/Rx/DC Orders Clinical Impression: Blister of hand without infection Prescriptions: No Action glipizide 5 mg tablet 5 mg PO DAILY RF: 0 duloxetine 20 MG capsule 20 mg PO QHS RF: 0 doxepin 150 MG capsule 150 mg PO QHS RF: 0 alprazolam 0.25 MG tablet 0.25 mg PO BID PRN PRN (Reason: Anxiety) RF: 0 albuterol sulfate 90 MCG aerosol powdr breath activated 90 mcg IH BID PRN (Reason: breathing) RF: 0 gabapentin 300 mg capsule 600 mg PO DAILY RF: 0 gabapentin 300 mg capsule 300 mg PO QHS RF: 0 ursodiol 300 mg capsule 300 mg PO BID RF: 0 metoclopramide HCl 5 mg tablet 5 mg PO TID PRN (Reason: nausea and vomiting) 14 Days Qty: 42 RF: 0 colestipol 1 gram tablet 1 g PO QHS 30 Days Qty: 30 RF: 0 oxycodone 5 mg tablet 5 mg PO Q6H PRN (Reason: pain) 3 Days Qty: 10 RF: 0 ondansetron 4 mg tablet,disintegrating 4 mg PO Q8H PRN (Reason: nausea and vomiting) Qty: 10 RF: 0 sucralfate [Carafate] 100 mg/mL suspension 10 ml PO TID Qty: 200 RF: 0 Primary Care Provider: Valerie Mullins Referrals: Valerie Mullins MD [Primary Care Provider] - As Needed Disposition Disposition: Home, Self Care
== END 2021-10-05 10:37 | disposition home or self-care (01) ==
LOC: ED 10:36
PROVIDERS: Emergency Provider Emergency Medicine; PCP Internal Medicine; Visit Provider Emergency Medicine
DX: S60.522A Blister (nonthermal) of left hand, initial encounter (principal); E11.9 Type 2 diabetes mellitus without complications; X12.XXXA Contact with other hot fluids, initial encounter; Y93.89 Activity, other specified; Y99.8 Other external cause status; Y92.89 Other specified places as the place of occurrence of the external cause; I10 Essential (primary) hypertension; J45.909 Unspecified asthma, uncomplicated; E78.5 Hyperlipidemia, unspecified; F17.290 Nicotine dependence, other tobacco product, uncomplicated; Z79.84 Long term (current) use of oral hypoglycemic drugs; Z79.899 Other long term (current) drug therapy
CPT/HCPCS: 10140; 10060; 99282

== ENCOUNTER → 2021-11-12 | Outpatient (CLI) | payer MEDICAID, SELFPAY ==
[2021-11-18 12:20] LABS: H. PYLORI STOOL AG Negative (Negative)
== END | disposition home or self-care (01) ==
LOC: LABSPEC 14:18
PROVIDERS: PCP Internal Medicine; Visit Provider Nurse Practitioner Adult Health
DX: A04.8 Other specified bacterial intestinal infections (principal)

== ENCOUNTER 2021-12-07 17:00 | Outpatient (RCR) | payer MEDICAID, SELFPAY ==
--- NOTE | 2021-11-16 18:54 | HP.PTEVAL_ITS ---
Patient's Visit Information DAVID TATE is a 46 year old F referred to Physical Therapy by CRICKET Castillo with a diagnosis of DEBILITY AND MALAISE. Date of Evaluation: 11/16/21 Physical Therapist: Whitney Mccloud PT, Cert MDT - Visit Plan Frequency: 2-3x /Week Duration: 2 Months Plan: GENERAL BALANCE AND STRENGTH TRAINING TO HELP MEET SET GOALS. 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 MAIN CLIENT IS IN THE HOSPITAL RIGHT NOW. ABOUT 32 HOURS A WEEK CURRENTLY. 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 HEAVY LIFTING AT TIMES. CURRENTLY HAS 350 LB PATIENT THAT SHE HELPS MOVE IN A LIFT THAT IS VERY CHALLENGING. Disability: NO. Present symptoms: TOTAL BODY WEAKNESS AND BEING OFF BALANCE. I HAVE NO STRENGTH. I EVEN HAVE TO HOLD A MUG WITH 2 HANDS DOMINIC USE I AM SO WEAK. CURRENTLY ON KIDNEY TRANSPLANT LIST. HAS LOST ABOUT 20 LBS IN ABOUT 4-5 MONTHS. PATIENT RELATES HER WEAKNESS TO VOMITING, DIARHEA, STOMACH BACTERIA AND LIVER FAILURE. SHE REPORTS SHE JUST REALLY HAS A LOT GOING ON MEDICALLY. PATIENT DENIES PAIN. PATIENT REPORTS SHE IS HAVING GREAT DIFFICULTY ON STEPS AND IS VERY HANDRAIL DEPENDENT TO GO UP AND DOWN STEPS. Present since: WEAKNESS STARTED 4-5 MONTHS AGO. Gait: PATIENT REPORTS SHE HAS HAD SEVERAL RECENT FALLS. I HAVE NO BALANCE AND NO STRENGTH. DENIES ANY FX'S WITH THE FALLS BUT BRUISED RIGHT RIBS ABOUT A WEEK AGO. 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 PMH/Recent major surgery: Alcoholism. Anxiety. Asthma. Breast implant status. Chronic diarrhea. Cirrhosis. Diabetes. Fatty liver. Gastritis and duodenitis. HLD (hyperlipidemia). HTN (hypertension). Migraines. Nicotine abuse. Pancreatitis. Recurrent acute pancreatitis. Smoker - Objective Sitting/Standing Posture: POOR. RH. RS'S. Lordosis: REDUCED. Other Observations: INDEP GAIT INTO PT WITHOUT ANY ASSISTIVE DEVICES WITH OCCASSIONAL LOB THAT IS REGAINED INDEP'LY. LIGHT UE ASSIST NEEDED TO TRANSFER FROM SIT TO STAND. PATIENT WALKS WITH DECREASED MARY STRIDE LENGTH. SHE LOSES HER BALANCE EASILY WHEN MOVING HER TRUNK OUTSIDE OF HER CENTER OF GRAVITY. Sensory deficit: MARY UE AND LE LIGHT TOUCH SENSATION IS GROSSLY INTACT AND SYMMETRICAL EXCEPT MARY LOWER LEGS AND FEET. PATIENT REPORTS IT FEELS LIKE SHE HAS TUBE SOCKS ON. ROM deficit: MARY UE AND LE ROM IS WFL. Motor deficit: MARY UE AND LE WEAKNESS GROSSLY 4-/5. Dural Signs: NEGATIVE MARY LE'S. Lumbar mvmt loss: flex - NIL. ext - MOD. R SG - MOD. L SG - MOD. OTHER: PATIENT IS UNABLE TO SLS > 1-2 SEC ON EACH LE. Core strength: POOR - Balance/Special Test Scores Lower Extremity Functional Score: 18 TUG Test Time Seconds: 10.98 30 Second Chair Rise Test Seconds: 10 - Goals Goal 1:: PATIENT WILL COMPLETE 12 STANDS IN 30 SECS WITHOUT UE ASSIST TO DEMONSTRATE IMPROVED FUNCTIONAL STRENGTH Goal Time Frame: 6-8 Weeks Goal 2:: PATIENT WILL COMPLETE TUG IN < 10 SECS TO DEMONSTRATE IMPROVED GAIT STABILITY Goal Time Frame: 6-8 Weeks Goal 3:: PATIENT WILL COMPLETE SLS ON MARY LE'S X > 20 SEC WITH EO AND EC TO SHOW IMPROVED GAIT STABILITY. Goal Time Frame: 6-8 Weeks Goal 4:: PATIENT WILL BE INDEP WITH A HEP FOR CONTINUED IMPROVEMENT ONCE FORMAL PHYSICAL THERAPY CONCLUDES. Goal Time Frame: 6-8 Weeks Goal 5:: PATIENT WILL BE ABLE TO ASCEND AND DESCEND ONE FLIGHT OF STEPS RECIP WITHOUT UE ASSIST. Goal Time Frame: 6-8 Weeks - Anticipated Interventions Patient/Client Instruction: Educate patient on: Condition, Plan of Care, Risk Factors For the Purpose of:: To improve self management Therapeutic Exercise to Include: Strength training, Endurance training, Balance training, Body mechanics, Postural training, Gait and locomotor training, Neuromotor development, Dynamic Lumbar Stabilization For the Purpose of:: To improve muscle performance and motor function, To increase tolerance to activity/condition/position, To improve ability of physical actions for home/community/work/leisure, To improve gait and locomotor functions, To improve endurance, To improve balance Thank you for the opportunity to evaluate your patient. For Medicare and Medicare HMO plans, please review the plan of care and approve it. It will need to be FAXED BACK to us at [phone] for Medicare purposes. For Medicare only, by signing this I certify the plan of care. Please let me know if there are questions or concerns regarding this plan of care. Physician Signature: Date:
--- NOTE | 2022-03-09 12:43 | HP.PT.NRP ---
DAVID TATE was seen in my office for initial evaluation on 11/16/21. The following Plan of Care was established for this patient: Initial Frequency: 2-3x /Week Initial Duration: 2 Months Patient/Client Instruction: Educate patient on: Condition, Plan of Care, Risk Factors For the Purpose of:: To improve self management Therapeutic Exercise to Include: Strength training, Endurance training, Balance training, Body mechanics, Postural training, Gait and locomotor training, Neuromotor development, Dynamic Lumbar Stabilization For the Purpose of:: To improve muscle performance and motor function, To increase tolerance to activity/condition/position, To improve ability of physical actions for home/community/work/leisure, To improve gait and locomotor functions, To improve endurance, To improve balance This patient was last seen in our office 12/07/21. Pertinent comments regarding their Physical therapy will appear below: This patient has not returned to Physical Therapy and is appropriate to return to MD for further follow-up as needed. At this point I will be discontinuing this patient from physical therapy. I would be happy to see this patient again in the future if found appropriate by the physician. Thank you! Whitney Mccloud, PT, Cert MDT Balance/Gait/Functional tests - Balance/Special Test Scores Lower Extremity Functional Score: 18 TUG Test Time Seconds: 10.98 Tug Test: <20 sec.=mostly independent 30 Second Chair Rise Test Seconds: 10
== END 2021-12-07 19:00 | disposition home or self-care (01) ==
LOC: PT 17:00
PROVIDERS: PCP Internal Medicine; Referring Provider Nurse Practitioner Adult Health; Visit Provider Nurse Practitioner Adult Health
DX: R53.81 Other malaise (principal)
CPT/HCPCS: 97110; 97162; 97530

== ENCOUNTER 2021-12-10 14:25 | Observation (INO) | payer MEDICAID, SELFPAY ==
[2021-12-10 14:26] VITALS: BP 123/64; PULSE 101; RESP 16; TEMP 36.6; O2SAT 100; BMI 18.1
--- NOTE | 2021-12-10 15:07 | CT_ITS ---
STUDY: CT BRAIN WITHOUT CONTRAST REASON FOR EXAM: Female, 46 years old. Stuttering, spe ach problems x 2 days RADIATION DOSAGE (If Supplied By Facility): CTDIvol = ( 44.99 ) mGy, DLP = ( 779.24 ) mGycm TECHNIQUE: Transaxial CT imaging of the brain was performed without administration of intravenous contrast material. Individualized dose optimization techniques were used for this CT. COMPARISON: Comparison is made with prior study dated 10/01/2020. FINDINGS: Normal soft tissue structures. Normal calvarium. Normal size ventricles and extra-axial spaces for the patient''s age. Normal white matter tracts of the cerebral hemispheres. Normal basal ganglia and thalami. Normal brainstem. Normal cerebellum. There is no intracranial hemorrhage. There are no findings of an acute ischemic infarction. Normal visualized paranasal sinuses. CT/Brain/Head without Contrast IMPRESSION: Normal unenhanced CT scan of the brain. Electronically Signed: Denzel Quijano MD at 15:43 EDT ,
--- NOTE | 2021-12-10 15:11 | EKG12_ITS ---
Test Reason : neuro Blood Pressure : / mmHG Vent. Rate : 094 BPM Atrial Rate : 094 BPM P-R Int : 154 ms QRS Dur : 074 ms QT Int : 374 ms P-R-T Axes : 035 056 037 degrees QTc Int : 467 ms Normal sinus rhythm Low voltage QRS Borderline ECG Confirmed by TOMY HALL MD ([id number]), newspaper managing editor NATALYA ALMAZAN ([id number]) on 12/14/2021 11:21:13 AM Referred By: Michele Confirmed By:TOMY HALL MD
[2021-12-10 15:30] LABS: Absolute Lymphocyte Count 1.59 X10^3/uL (0.83-4.51); Absolute Neutrophil Count 5.2 X10^3/uL (2.0-7.7); Basophil# 0.03 X10^3/uL; Basophil% 0.4 % (0-1); Eosinophil# 0.16 X10^3/uL; Eosinophils% 2.1 % (0-5); Hematocrit 30.5 % (37-47); Hemoglobin 10.4 g/dL (12.0-15.0); Lymphocyte # 1.59 X10^3/ul (0.83-4.51); Lymphocyte % 20.9 % (19-41); Mean Corp Hgb Conc 34.1 g/dL (32-36); Mean Corpuscular Hgb 37.5 pg (27.0-32.0); Mean Corpuscular Volume 110.1 fL (81-99); Mean Platelet Vol. 10.3 fl (6.2-12.0); Monocyte# 0.62 X10^3/uL; Monocyte% 8.1 % (0-10); NRBC Flagged by Analyzer 0 % (0-5); Neutrophil # 5.17 X10^3/uL (2.7-7.7); Platelet Count 203 K/mm3 (150-450); RBC Distribution Width CV 13.9 % (11.6-14.6); RBC Distribution Width SD 56.7 fl (35.1-43.9); Red Blood Count 2.77 M/mm3 (4.2-5.4); White Blood Count 7.6 K/mm3 (4.4-11.0)
--- NOTE | 2021-12-10 15:35 | RAD_ITS ---
STUDY: X-RAY CHEST REASON FOR EXAM: Female, 46 years old. Weakness TECHNIQUE: Single AP portable view of the chest. COMPARISON: Comparison is made with prior chest radiograph dated 10/01/2020. FINDINGS: EKG electrodes are seen. The lungs are clear and expanded. There is no demonstrated pleural abnormality. Normal size heart. Normal mediastinum and niurka. Normal visualized pulmonary arteries. Normal visualized aortic arch and descending thoracic aorta. Normal visualized thoracic spine. Normal visualized ribs, clavicles, and shoulders. There is no demonstrated abnormality of the visualized soft tissue structures of the upper abdomen. RAD/Chest 1 View (Portable) IMPRESSION: Normal x-ray examination of the chest. Electronically Signed: Denzel Quijano MD at 15:45 EDT ,
[2021-12-10 15:36] LABS: POSITIVE COUNT NO; POSITIVE DIFFERENTIAL NO; POSITIVE MORPHOLOGY NO
[2021-12-10 15:39] LABS: International Normalized Ratio 1.2; Prothrombin Time (Protime)PT. 14.7 SECONDS (11.7-14.9)
--- NOTE | 2021-12-10 15:40 | EX.ED.DYSGE1 ---
HPI History of Present Illness Chief Complaint: Neuro S/Sx Informant: patient Narrative Narrative: Is a 46-year-old female with extensive medical history including history of cirrhosis, hepatic encephalopathy (not currently on lactulose secondary to not sure what medication she supposed to be on), neuropathy, chronic diarrhea, pancreatitis and recent hospitalization for C. difficile as well as COVID-19 infection presenting for stuttering speech. Patient states she is had some word finding difficulties where she has been mumbling and intermittent stuttering for the past 2 days. She states when she tach she can communicate just fine. She states generally she is been feeling very weak and tends to spill things regardless of what hand she is holding it and. She notes this weakness been going on for some time now. States her breathing feels fine. She denies any vision changes. She notes that sometimes she does have some trouble swallowing but attributes that to anxiety. No other complaints at this time. PFSH PFSH Medical History Alcoholism Anxiety Asthma Breast implant status Chronic diarrhea Cirrhosis COVID-19 Diabetes Diabetes Fatty liver Gastritis and duodenitis H. pylori infection HLD (hyperlipidemia) HTN (hypertension) Migraines Nicotine abuse Pancreatitis Post-menopausal Recurrent acute pancreatitis Smoker Home Medications gabapentin 300 mg capsule 300 mg PO BID pain 08/11/21 [History Last Taken 12/10/21] doxepin 75 mg capsule 150 mg PO QHS mood 12/10/21 [History Last Taken 12/09/21] duloxetine 60 mg capsule,delayed release 60 mg PO DAILY depression 12/10/21 [History Last Taken 12/09/21] losartan 50 mg tablet 50 mg PO DAILY BP 12/10/21 [History Last Taken 12/10/21] metformin 500 mg tablet 500 mg PO BID 12/10/21 [History Last Taken 12/10/21] promethazine 25 mg tablet 25 mg PO Q6H PRN Nausea 12/10/21 [History Last Taken 12/08/21] ursodiol 300 mg capsule 300 mg PO BID 12/10/21 [History Last Taken 12/10/21] vitamin E 268 mg (400 unit) capsule 536 mg PO DAILY SUPPLEMENT 12/10/21 [History Last Taken 12/09/21] Allergy/AdvReac Type Severity Reaction Status Date / Time azithromycin [From Zithromax] AdvReac Diarrhea Verified 12/10/21 14:27 codeine AdvReac Nausea Verified 12/10/21 14:27 promethazine [From Phenergan] AdvReac Vomiting Verified 12/10/21 14:27 Family History (Updated 12/10/21 @ 19:[address] Ariane Holloway MD) Father Cancer Lung CA with tobacco use history. Heart disease Mother Cancer Hx breast CA. Diabetes Hypertension Surgical History (Updated 12/10/21 @ 19:[address] Ariane Holloway MD) H/O breast augmentation H/O: knee surgery Previous section S/P tonsillectomy and adenoidectomy Social History (Updated 12/10/21 @ 19:[address] Ariane Holloway MD) housing: other details: Lives at home, her 15, 16 year old children live with her. 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 substance use type: does not use ROS ROS ED Constitutional Constitutional ED: Denies chills or fever(s) Eyes Eyes: Denies blurry vision or change in vision ENT ENT ED: Denies rhinorrhea or sore throat Cardiovascular Cardiovascular: Denies chest pain or palpitations Respiratory/Chest Respiratory/Chest: Denies cough or dyspnea Gastrointestinal Gastrointestinal: Reports diarrhea; Denies abdominal pain, nausea or vomiting Genitourinary Genitourinary ED: Denies dysuria or hematuria Musculoskeletal Musculoskeletal: Denies arthralgias Integumentary Denies rash Neurologic Neurologic: Reports paresthesias RLE and LLE and other Details: mumbling/stuttering speech ; Denies headache(s) or weakness Psychiatric Psychiatric: Denies anxiety EXAM Physical Exam Const Vital Signs: 12/10/21 14:26 12/10/21 16:26 12/10/21 18:00 Temperature 97.8 F Temperature Source Temporal Pulse Rate 101 H 66 89 Respiratory Rate 16 14 14 Blood Pressure 123/64 H 134/78 H 115/78 Blood Pressure Mean 83 96 90 Pulse Ox 100 98 94 Oxygen Delivery Method Room Air Room Air Room Air Positive well nourished and well developed General Appearance ED: well developed and NAD HEENT Reports moist mucous membranes Eyes PERRL and EOMs intact bilaterally Neck supple and no JVD Neck Narrative: No meningeal signs Chest Wall inspection of chest normal Resp normal respiratory effort and clear to auscultation bilaterally Cardio regular rhythm Rate: tachycardic GI normal to inspection, nondistended, normoactive bowel sounds Extremity normal to inspection Neuro oriented x3 and CN's II-XII intact bilaterally Neuro Narrative: Paresthesias of the bilateral lower extremities which is chronic for patient. No other focal sensory deficits. No word finding difficulties and able to name objects appropriately. Intermittently has normal speech and then intermittently stumbles over her words and stutters. No focal weakness. Patient does have asterixis of her bilateral hands. Psych mental status grossly normal Skin no rashes or lesions noted and no wounds General Skin Exam: Negative for jaundice MDM MDM MDM Narrative Medical decision making narrative: Patient is evaluated for stuttering and mumbling speech intermittently. Patient has an odd affect. Her NIH is 0. I do not think this is an acute stroke and she is not a tPA candidate especially as her symptoms been going on for at least 48 hours. Question she could have something more encephalopathic going on. Hemoglobin is mildly low at 10.4. Her BMP shows a potassium of 3.0 but is otherwise normal. She does have an elevated AST to ALT ratio and her bilirubin is mildly elevated 1.5. These are all near her baseline. Her high since he troponin is less than 3 I do not think this is cardiac in nature. Patient's lipase is normal. Her platelets and coags are normal. Her alcohol level is significantly elevated at 240. Patient is insistent that she has not been drinking alcohol and she does not know why her alcohol level be elevated. I did career development counselor her that there is no other reason why it would be elevated. Patient will be admitted for rule out TIA she continues to have intermittent speech changes and I cannot definitively rule it out with a CT given the timing of symptoms. Patient is given aspirin the emergency room. Lab Data Labs: Laboratory Results - last 24 hr 12/10/21 12/10/21 12/10/21 14:50 14:50 14:50 WBC 7.6 RBC 2.77 L Hgb 10.4 L Hct 30.5 L MCV 110.1 H MCH 37.5 H MCHC 34.1 RDW Std Deviation 56.7 H RDW Coeff of Teressa 13.9 Plt Count 203 MPV 10.3 Immature Gran % (Auto) 0.500 Neut % (Auto) 68.0 Lymph % (Auto) 20.9 [place] % (Auto) 8.1 Eos % (Auto) 2.1 Baso % (Auto) 0.4 Absolute Neuts (auto) 5.2 Absolute Lymphs (auto) 1.59 Nucleated RBC % 0 PT 14.7 INR 1.2 Sodium 137 Potassium 3.0 L Chloride 99 Carbon Dioxide 26.0 Anion Gap 12 BUN 3 L Creatinine 0.75 Estim Creat Clear Calc 74.37 Est GFR (MDRD) Af Amer 107 Est GFR (MDRD) Non-Af 88 BUN/Creatinine Ratio 4.0 L Glucose 181 H Calcium 8.7 Phosphorus Magnesium Total Bilirubin 1.50 H AST 107 H ALT 32 Alkaline Phosphatase 272 H Ammonia Troponin I High Sens < 3 L Total Protein 6.9 Albumin 2.7 L Globulin 4.2 Albumin/Globulin Ratio 0.6 L Lipase 80 Vitamin B12 Folate Ethyl Alcohol 12/10/21 12/10/21 12/10/21 14:50 14:50 14:50 WBC RBC Hgb Hct MCV MCH MCHC RDW Std Deviation RDW Coeff of Teressa Plt Count MPV Immature Gran % (Auto) Neut % (Auto) Lymph % (Auto) [place] % (Auto) Eos % (Auto) Baso % (Auto) Absolute Neuts (auto) Absolute Lymphs (auto) Nucleated RBC % PT INR Sodium Potassium Chloride Carbon Dioxide Anion Gap BUN Creatinine Estim Creat Clear Calc Est GFR (MDRD) Af Amer Est GFR (MDRD) Non-Af BUN/Creatinine Ratio Glucose Calcium Phosphorus 3.5 Magnesium 1.3 L Total Bilirubin AST ALT Alkaline Phosphatase Ammonia 25.0 Troponin I High Sens Total Protein Albumin Globulin Albumin/Globulin Ratio Lipase Vitamin B12 Folate Ethyl Alcohol 240.0 12/10/21 12/10/21 14:50 14:50 WBC RBC Hgb Hct MCV MCH MCHC RDW Std Deviation RDW Coeff of Teressa Plt Count MPV Immature Gran % (Auto) Neut % (Auto) Lymph % (Auto) [place] % (Auto) Eos % (Auto) Baso % (Auto) Absolute Neuts (auto) Absolute Lymphs (auto) Nucleated RBC % PT INR Sodium Potassium Chloride Carbon Dioxide Anion Gap BUN Creatinine Estim Creat Clear Calc Est GFR (MDRD) Af Amer Est GFR (MDRD) Non-Af BUN/Creatinine Ratio Glucose Calcium Phosphorus Magnesium Total Bilirubin AST ALT Alkaline Phosphatase Ammonia Troponin I High Sens Total Protein Albumin Globulin Albumin/Globulin Ratio Lipase Vitamin B12 415 Folate 6.70 Ethyl Alcohol Radiography Chest X-Ray - ED: 1 View, Read by ED Physician, Read by Radiologist and No Acute Disease Diagnostic Testing: Clinical Impression(s) from Imaging Studies Brain CT 12/10/21 15:07 IMPRESSION: Normal unenhanced CT scan of the brain. Electronically Signed: Denzel Quijano MD at 15:43 EDT , Chest X-Ray 12/10/21 15:35 IMPRESSION: Normal x-ray examination of the chest. Electronically Signed: Denzel Quijano MD at 15:45 EDT , Rhythm Strip Rhythm Strip: Sinus Rhythm Rate: 94 Ectopy: None EKG Initial EKG: Attestation: I personally reviewed and interpreted this EKG as follows: Interpretation: Sinus Rhythm Comments: Normal sinus rhythm at a rate of 94 Normal axis Normal intervals Normal ST segments Low voltage QRS Discharge Plan Dx/Rx/DC Orders Clinical Impression: Episode of change in speech, Elevated blood alcohol level Disposition Disposition: Acute Care Hospital [facility]
[2021-12-10 15:50] LABS: ALB/GLOB Ratio 0.6 RATIO (0.9-2.4); AST(SGOT) 107 U/L (15-37); Alanine Aminotransfer ALT/SGPT 32 U/L (13-56); Albumin, Serum 2.7 g/dL (3.2-5.0); Alkaline Phosphatase 272 U/L (45-117); Anion Gap 12 (5-15); BUN 3 mg/dL (7-18); Calcium,Total 8.7 mg/dL (8.5-10.1); Chloride 99 mmol/L (98-107); Creatinine, Serum 0.75 mg/dL (0.55-1.02); EST Glomerular Filtration Rate 88 mL/min (>60); Est Glom Filt Rate - Afr Amer 107 mL/min (>60); Estimated Creatinine Clearance 74.37 ml/min; Globulin 4.2 g/dL (2.2-4.2); Glucose 181 mg/dL (74-106); Lipase 80 U/L (73-393); Protein, Total 6.9 g/dL (6.4-8.2); Sodium Level 137 mmol/L (136-145); Troponin-I HS < 3 pg/mL (3.0-54.0)
[2021-12-10 16:26] VITALS: BP 134/78; PULSE 66; RESP 14; O2SAT 98
--- NOTE | 2021-12-10 17:21 | ED.RN ---
route specialist went into collect urine. pt. gets upset yells at route specialist calling her a bitch. pt. refuses cath, and refuses to get up to urinate. aware
[2021-12-10 18:00] VITALS: BP 115/78; PULSE 89; RESP 14; O2SAT 94
--- NOTE | 2021-12-10 18:45 | HP.PCM.HOS_ITS ---
HPI - General General Date of Admission: 12/10/21 Date of Service: 12/10/21 Chief Complaint: Intermittent slurred speech. HPI Narrative The patient is a 46 y/o F w/ PMHx: Anxiety and Depression, Asthma, HTN, HLD, Alcoholic cirrhosis with ongoing EtOH abuse, Chronic anemia/AOCD, Chronic pancreatitis with chronic diarrhea, Diabetes mellitus type II with peripheral neuropathy, GERD w/ Hx duodenitits, Tobacco use, Chronic migraines, Hx C. di fficile colitis who presents to the [facility] ED on 12/10/21 with history of episodes of stuttering speech with some word finding difficulties with mumbling concurrently noted over the past 2 days with intermittent periods of completely normal communication with complaint of weakness and difficulty with activities sometimes spilling what she is attempting to eat or difficulty holding onto things although this has been going on for some time prompting eventual ED evaluation. In the ED includes T97.8, heart rate 101 with most recent repeat 66, BP 123/64, respiratory rate 16, 100% room air, CBC with WC 7.6, hemoglobin 10.4, MCV 110.1, platelet 203 without marked shift, unremarkable coags, CMP with pot assium 3.0, glucose 181, total bilirubin 1.50, AST/LT 107/32, alk phos 272, ammonia 25, troponin less than 3, lipase 80, ethyl alcohol level 240, chest x- ray with no acute cardiopulmonary findings, CT brain with no acute intracranial findings, EKG with sinus rhythm with no acute evidence of ischemia, UA and UDS pending upon evaluation. In the ED patient ministered full-strength aspirin. [facility] Medical History Alcoholism Anxiety Asthma Breast implant status Chronic diarrhea Cirrhosis COVID-19 Diabetes Diabetes Fatty liver Gastritis and duodenitis H. pylori infection HLD (hyperlipidemia) HTN (hypertension) Migraines Nicotine abuse Pancreatitis Post-menopausal Recurrent acute pancreatitis Smoker Home Medications gabapentin 300 mg capsule 300 mg PO BID pain 08/11/21 [History Last Taken 12/10/21] doxepin 75 mg capsule 150 mg PO QHS mood 12/10/21 [History Last Taken 12/09/21] duloxetine 60 mg capsule,delayed release 60 mg PO DAILY depression 12/10/21 [History Last Taken 12/09/21] losartan 50 mg tablet 50 mg PO DAILY BP 12/10/21 [History Last Taken 12/10/21] metformin 500 mg tablet 500 mg PO BID 12/10/21 [History Last Taken 12/10/21] promethazine 25 mg tablet 25 mg PO Q6H PRN Nausea 12/10/21 [History Last Taken 12/08/21] ursodiol 300 mg capsule 300 mg PO BID 12/10/21 [History Last Taken 12/10/21] vitamin E 268 mg (400 unit) capsule 536 mg PO DAILY SUPPLEMENT 12/10/21 [History Last Taken 12/09/21] Allergy/AdvReac Type Severity Reaction Status Date / Time azithromycin [From Zithromax] AdvReac Diarrhea Verified 12/10/21 14:27 codeine AdvReac Nausea Verified 12/10/21 14:27 promethazine [From Phenergan] AdvReac Vomiting Verified 12/10/21 14:27 Family History (Updated 12/10/21 @ 19:[address] Ariane Holloway MD) Father Cancer Lung CA with tobacco use history. Heart disease Mother Cancer Hx breast CA. Diabetes Hypertension Surgical History (Updated 12/10/21 @ 19:[address] Ariane Holloway MD) H/O breast augmentation H/O: knee surgery Previous section S/P tonsillectomy and adenoidectomy Social History (Updated 12/10/21 @ 19:[address] Ariane Holloway MD) housing: other details: Lives at home, her 15, 16 year old children live with her. 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 substance use type: does not use ROS ROS Narrative Admission Review of Systems: CONSTITUTIONAL: No weight loss, fever, chills, + weakness or fatigue. HEENT: Eyes: No visual loss, blurred vision, double vision or yellow sclerae. Ears, Nose, Throat: No hearing loss, sneezing, congestion, runny nose or sore throat. SKIN: No rash or itching, lesions, wounds. CARDIOVASCULAR: No chest pain, chest pressure or chest discomfort, palpitations, edema, orthopnea, syncopal events. RESPIRATORY: No shortness of breath, cough or sputum, wheezing, hemoptysis. GASTROINTESTINAL: + Occasional dysphagia sensation. No anorexia, nausea, vomiting or diarrhea, abdominal pain, melena, BRBPR. GENITOURINARY: No dysuria, frequency, urgency or retention. NEUROLOGICAL: + Expressive aphasia, repeating her sentences, No headache, dizziness, syncope, paralysis, ataxia, numbness or tingling in the extremities, focal weakness, change in bowel or bladder control, seizure. MUSCULOSKELETAL: + muscle, back pain, joint pain or stiffness. HEMATOLOGIC: + anemia, bleeding or bruising. LYMPHATICS: No enlarged nodes. No history of splenectomy. PSYCHIATRIC: + history of depression or anxiety. ENDOCRINOLOGIC: No reports of sweating, cold or heat intolerance. No polyuria or polydipsia. ALLERGIES: + history of asthma, rhinitis. Vital Signs Vital Signs Vital Signs: 12/10/21 14:26 12/10/21 16:26 Temperature 97.8 F Temperature Source Temporal Pulse Rate 101 H 66 Respiratory Rate 16 14 Blood Pressure 123/64 H 134/78 H Blood Pressure Mean 83 96 Pulse Ox 100 98 Oxygen Delivery Method Room Air Room Air Weight Weight: 112 lb Body Mass Index (BMI) 18.1 Physical Exam Narrative Physical Examination: General: Awake, alert, oriented x 3 and cooperative, seated upright in the ED bed in no apparent distress, was needing assistance to walk in the ED to the restroom, appears intoxicated but continues to deny any current alcohol intake. Skin: Normal color, normal turgor, no icterus, no cyanosis. HEENT: AT/NC, EOMI, PERRLA, mildly dry MM, no carotid bruits or JVD noted. Lungs: Mildly diminished, greater bases, appropriate effort no rales, ronchi or wheezing. Heart: Regular rate and rhythm; no gallop, rub audible. Abdomen: Soft, NTTP, ND, mildly hyperactive BS, + HM Extremities: No cyanosis, clubbing, or edema. Neurological: Patient awake, alert, oriented as noted, cognitive function intact; pupils equally reactive to light and accommodation, cranial nerves II- XII grossly normal, moving all 4 extremities, no focal deficits, strength moderately global decrease, do suspect intoxication especially based on if alcohol level, denies ongoing alcohol use however, bilateral upper extremity mildly tremulous against gravity, finger-nose mostly intact, [id number]-[id number] intact, no no obvious sensation alterations, negative Babinski Psychiatric: Affect appears mildly flat, no acute evidence of depressive or anxiety feelings but does have underlying history. Results Lab / Micro Data Result Diagrams: 12/10/21 14:50 12/10/21 14:50 Labs: Laboratory Results - last 24 hr 12/10/21 14:50: WBC 7.6, RBC 2.77 L, Hgb 10.4 L, Hct 30.5 L, MCV 110.1 H, MCH 37.5 H, MCHC 34.1, RDW Std Deviation 56.7 H, RDW Coeff of Teressa 13.9, Plt Count 203, MPV 10.3, Immature Gran % (Auto) 0.500, Neut % (Auto) 68.0, Lymph % (Auto) 20.9, [place] % (Auto) 8.1, Eos % (Auto) 2.1, Baso % (Auto) 0.4, Absolute Neuts (auto) 5.2, Absolute Lymphs (auto) 1.59, Nucleated RBC % 0 12/10/21 14:50: Sodium 137, Potassium 3.0 L, Chloride 99, Carbon Dioxide 26.0, Anion Gap 12, BUN 3 L, Creatinine 0.75, Estim Creat Clear Calc 74.37, Est GFR (MDRD) Af Amer 107, Est GFR (MDRD) Non-Af 88, BUN/Creatinine Ratio 4.0 L, Glucose 181 H, Calcium 8.7, Total Bilirubin 1.50 H, AST 107 H, ALT 32, Alkaline Phosphatase 272 H, Troponin I High Sens < 3 L, Total Protein 6.9, Albumin 2.7 L, Globulin 4.2, Albumin/Globulin Ratio 0.6 L, Lipase 80 12/10/21 14:50: PT 14.7, INR 1.2 12/10/21 14:50: Ammonia 25.0 12/10/21 14:50: Ethyl Alcohol 240.0 Rhythm Strip Rhythm Strip: Sinus Rhythm Rate: 94 Ectopy: None Radiology Impression Brain CT 12/10/21 15:07 IMPRESSION: Normal unenhanced CT scan of the brain. Electronically Signed: Denzel Quijano MD at 15:43 EDT , Chest X-Ray 12/10/21 15:35 IMPRESSION: Normal x-ray examination of the chest. Electronically Signed: Denzel Quijano MD at 15:45 EDT , Assessment & Plan Assessment/Plan (1) TIA (transient ischemic attack): PLAN: Plan The patient is a 46 y/o F w/ PMHx: Anxiety and Depression, Asthma, HTN, HLD, Alcoholic cirrhosis with ongoing EtOH abuse, Chronic anemia/AOCD, Chronic pancreatitis with chronic diarrhea, Diabetes mellitus type II with peripheral neuropathy, GERD w/ Hx duodenitits, Tobacco use, Chronic migraines, Hx C. diffic ile colitis who presents to the [facility] ED on 12/10/21 with history of episodes of stuttering speech with some word finding difficulties with mumbling concurrently noted over the past 2 days with intermittent periods of completely normal communication with complaint of weakness and difficulty with activities sometimes spilling what she is attempting to eat or difficulty holding onto things although this has been going on for some time prompting eventual ED evaluation. #1. Expressive aphasia, weakness concerning for TIA/CVA versus associated w/ #2: Will admit to PCU, will obtain MRI Brain, MRA Head and Neck, ECHO, PT/OT/Speech/Nutrition evaluation per protocol. Will allow permissive HTN, maint ain on asa, add statin w/ AM FLP, fall precautions. Mag, TSH, FLP, HgbA1c requested. If MRI unremarkable, although still suspect related to #2 with intoxication potentially, but may need to consider complex migraine given migraine history or potentially seizure if periods of withdrawal in between EtOH intake. #2. EtOH Abuse with alcoholic cirrhosis with history of prior hepatic encephalopathy with chronically elevated bilirubin, LFTs: Patient denying alcohol intake however upon presentation significantly elevated ethyl alcohol level of 240, obviously patient is still abusing alcohol, ammonia level is normal, CT brain with no acute findings, will maintain on CIWA protocol, MVI, thiamine and folic acid. Magnesium and phosphorus levels requested. Will consult case management for substance abuse although of note patient has denied any ongoing alcohol intake and reports that she is been sober since 2019. Elevated bilirubin and AST/ALT, alk phos similar to prior, will trend. We will continue patient chronic home lactulose regimen. #3. Hypokalemia: Admission K+ 3.0, magnesium level request, supplementation given, repeat level in AM. #4. Diabetes mellitus type II with peripheral neuropathy: Hold oral home regimen, ADA diet, accu checks w/ ISS, hemoglobin A1c pending as noted above. #5. History of Clostridium difficile colitis: We will initiate lactobacillus regimen. #6. Anxiety and depression: We will continue patient home duloxetine and doxepin home regimen. #7. Hypertension: Will temporarily hold losartan regimen for permissive hypertension, PRN agents per #1. #8. Hyperlipidemia: Not on statin therapy, add given #1, FLP in AM. #9. Chronic anemia/AOCD, EtOH abuse related: Admission hemoglobin 10.4, prior baseline has been similar although she is vacillated up and down from this, will continue on multivitamin, vitamin B12 and folic acid given alcohol abuse, trend CBC. Vitamin B12, folic acid levels pending given #1. #10. Tobacco Abuse: Encouraged cessation, inpatient consultation per RT, NR if desired. #11. Chronic asthma: Not on any routine regimen, encourage tobacco cessation, as needed albuterol. #12. GERD with history of duodenitis: Patient not on any regimen, given c. difficile history will defer PPI addition. #13. History of chronic pancreatitis: Associate with patient's alcohol abuse, lipase level normal currently. #14. DVT prophylaxis: SCDs, Lovenox. Charges/Coding Visit Charges OBSV E&M: 95974 Initial observation care L3
[2021-12-10] MEDS: 0.9% Normal Saline 1,000 ML 999 ML IV (19:01)
[2021-12-10 19:03] VITALS: BMI 18.1
[2021-12-10] MEDS: Aspirin 325 MG Tablet PO (19:06)
[2021-12-10 19:19] LABS: Mucous, Urine 0 SEEN /hpf (<or=2+); Red Blood Cells-Urine 0 SEEN /hpf (0-5)
[2021-12-10 19:22] LABS: Color, Urine Yellow (Yellow); Glucose, Dipstick Normal (Normal); Ketone-Dipstick Negative (Negative); Leukocyte Esterase-Dipstick 25 /ul (Negative); Nitrite-Dipstick Negative (Negative); Occult Blood-Urine Negative /ul (Negative); Protein-Dipstick Negative (Negative); Specific Gravity, Urine 1.005 (1.002-1.030); Urine Bilirubin Dipstick Negative (Negative); Urine Clarity Clear (Clear); Urine Urobilinogen Normal (Normal)
[2021-12-10 19:49] VITALS: BP 132/78; PULSE 78; RESP 14; TEMP 37.2; O2SAT 99
[2021-12-10 19:56] LABS: Squamous Epithelial Cells - UA 0-5 SEEN /hpf (5-10); White Blood Cells 0-5 SEEN /hpf (0-5)
[2021-12-10 19:57] LABS: Bacteria 1+ /hpf (None Seen)
[2021-12-10 19:57] LABS: Magnesium 1.3 mg/dL (1.6-2.6); Phosphorus 3.5 mg/dL (2.5-4.9)
[2021-12-10 20:22] LABS: Amphetamine Urine VISTA NEGATIVE (<1000 ng/mL); Barbiturate Urine VISTA NEGATIVE (< 200 ng/mL); Benzodiazepine Urine VISTA NEGATIVE (< 200 ng/mL); Cocaine Urine VISTA NEGATIVE (< 300 ng/mL); Ecstacy Urine VISTA NEGATIVE (< 500 ng/mL); Methadone Urine VISTA NEGATIVE (< 300 ng/mL); PCP Urine VISTA NEGATIVE (< 25 ng/mL); THC Urine VISTA NEGATIVE (< 50 ng/mL); Vista UDS pH Range 7
[2021-12-10 20:41] VITALS: BP 107/67; PULSE 84; PULSE 93; RESP 18; TEMP 36.6; O2SAT 97; BMI 18.0
[2021-12-10 21:15] LABS: Vitamin B12 415 pg/mL (211-911)
[2021-12-10] MEDS: 0.9% Normal Saline 1,000 ML 100 ML IV (21:49)
[2021-12-10] MEDS: Atorvastatin Calcium 40 MG Tablet PO (21:51)
[2021-12-10] MEDS: Ursodiol 250 MG Tablet PO (21:51)
[2021-12-10] MEDS: DOXEPIN HCL 50 MG CAPSULE 150 MG PO (21:51)
[2021-12-10] MEDS: Gabapentin 300 MG Capsule PO (21:56)
[2021-12-10] MEDS: Potassium Chloride Oral Tablet 20 MEQ 40 MEQ PO (21:56)
[2021-12-10] MEDS: Acetaminophen 325 MG Tablet 650 MG PO (22:04)
[2021-12-10] MEDS: Ondansetron 4 MG/2 ML Vial IV (22:07)
[2021-12-10 22:20] LABS: Bedside Glucose 124 mg/dL (74-106)
[2021-12-10 22:30] VITALS: O2SAT 96
[2021-12-11 00:45] VITALS: BMI 18.0
[2021-12-11 02:41] VITALS: BP 110/72; PULSE 74; PULSE 88; RESP 18; TEMP 36.6; O2SAT 97
[2021-12-11 05:15] LABS: Absolute Lymphocyte Count 1.46 X10^3/uL (0.83-4.51); Absolute Neutrophil Count 3.2 X10^3/uL (2.0-7.7); Basophil# 0.02 X10^3/uL; Basophil% 0.4 % (0-1); Eosinophil# 0.24 X10^3/uL; Eosinophils% 4.4 % (0-5); Hematocrit 25.2 % (37-47); Hemoglobin 8.4 g/dL (12.0-15.0); Lymphocyte # 1.46 X10^3/ul (0.83-4.51); Lymphocyte % 26.7 % (19-41); Mean Corp Hgb Conc 33.3 g/dL (32-36); Mean Corpuscular Hgb 36.7 pg (27.0-32.0); Mean Platelet Vol. 9.7 fl (6.2-12.0); Monocyte% 9.1 % (0-10); NRBC Flagged by Analyzer 0 % (0-5); Neutrophil # 3.22 X10^3/uL (2.7-7.7); Neutrophil % 58.9 % (47-70); Platelet Count 162 K/mm3 (150-450); RBC Distribution Width CV 14.1 % (11.6-14.6); RBC Distribution Width SD 56.6 fl (35.1-43.9); Red Blood Count 2.29 M/mm3 (4.2-5.4); White Blood Count 5.5 K/mm3 (4.4-11.0)
[2021-12-11 05:43] LABS: ALB/GLOB Ratio 0.6 RATIO (0.9-2.4); AST(SGOT) 96 U/L (15-37); Alanine Aminotransfer ALT/SGPT 25 U/L (13-56); Albumin, Serum 2.1 g/dL (3.2-5.0); Alkaline Phosphatase 218 U/L (45-117); Anion Gap 10 (5-15); BUN 2 mg/dL (7-18); BUN/Creat Ratio 4.6 RATIO (10-20); Chloride 110 mmol/L (98-107); Cholesterol 156 mg/dL (200); Creatinine, Serum 0.43 mg/dL (0.55-1.02); EST Glomerular Filtration Rate 167 mL/min (>60); Est Glom Filt Rate - Afr Amer 202 mL/min (>60); Estimated Creatinine Clearance 129.25 ml/min; Globulin 3.3 g/dL (2.2-4.2); Glucose 99 mg/dL (74-106); High Density Lipoprotein 18 mg/dL; Potassium 3.5 mmol/L (3.5-5.1); Protein, Total 5.4 g/dL (6.4-8.2); Sodium Level 144 mmol/L (136-145); Thyroid Stim Hormone (TSH) 3.41 uIU/mL (0.358-3.74); Triglycerides 298 mg/dL; Very Low Density Lipoprotein 60 mg/dL (5-40)
[2021-12-11] MEDS: Acetaminophen 325 MG Tablet 650 MG PO (05:55)
[2021-12-11] MEDS: hydrOXYzine PAM 25 MG Capsule 50 MG PO (05:58)
[2021-12-11 06:20] LABS: Bedside Glucose 118 mg/dL (74-106)
[2021-12-11 07:01] VITALS: PULSE 97
--- NOTE | 2021-12-11 07:07 | MRI_ITS ---
STUDY: MRA OF THE HEAD WITHOUT CONTRAST REASON FOR EXAM: Female, 46 years old. CVA. Aphasia TECHNIQUE: 3-D [id number] (TOF) imaging was performed with MIPs. The study was performed unenhanced. COMPARISON: None. FINDINGS: Normal bilateral petrous carotid arteries. Normal right cavernous carotid artery with a normal supraclinoid bifurcation. Normal left cavernous carotid artery with a normal supraclinoid bifurcation. Normal right A1 segment of the anterior cerebral artery. Developmentally absent left A1 segment of the anterior cerebral artery. Normal in ct anterior communicating artery (ACOM). Normal bilateral A2 segments of the anterior cerebral arteries. Normal right M1 and M2 segments of the middle cerebral arteries, with a normal M1 bifurcation. Normal left M1 and M2 segments of the middle cerebral arteries, with a normal M1 bifurcation. No visible right posterior communicating artery (PCOM). Normal left posterior communicating artery (PCOM). Normal bilateral vertebral arteries. Normal basilar artery with a normal basilar bifurcation. The visualized bilateral superior cerebellar (SCA) arteries are normal. Normal bilateral P1, P2 and visualized P3 segments of the posterior cerebral arteries. There is no demonstrated aneurysm of the [place] of [place]. There is no major vessel occlusion or hemodynamically significant stenosis. There is no demonstrated abnormality of the visualized brain. MRI/MRA Head ONLY without Contrast IMPRESSION: Normal MRA of the head Electronically Signed: Pratik Beauchamp MD at 12:26 EDT ,
--- NOTE | 2021-12-11 07:07 | MRI_ITS ---
STUDY: MRA NECK WITHOUT CONTRAST REASON FOR EXAM: Female, 46 years old. CVA. Garbled speech. TECHNIQUE: Source images were obtained, MIPs were performed. The study was performed unenhanced. COMPARISON: None. FINDINGS: RIGHT CAROTID ARTERIES: Normal right common carotid artery (CCA). Normal right carotid bulb. Normal origin of the right internal carotid (ICA) artery without a hemodynamically significant stenosis. Normal visualized cervical portion of the right internal carotid artery. Normal origin of the right external carotid artery (ECA). LEFT CAROTID ARTERIES: Normal left common carotid artery (CCA). Normal left carotid bulb. Normal origin of the left internal carotid (ICA) artery without a hemodynamically significant stenosis. Normal visualized cervical portion of the left internal carotid artery. Normal origin of the left external carotid artery (ECA). VERTEBRAL ARTERIES: Normal antegrade flow within the bilateral vertebral artery without a hemodynamically significant stenosis. The right is more dominant. MRI/MRA Neck without Contrast IMPRESSION: Normal bilateral cervical carotid and vertebral arteries. Electronically Signed: Pratik Beauchamp MD at 11:26 EDT ,
--- NOTE | 2021-12-11 07:07 | MRI_ITS ---
EXAM: MR HEAD WITHOUT INTRAVENOUS CONTRAST CLINICAL INDICATION: CVA. Garbled speech. TECHNIQUE: Multiplanar and multisequence MR images of the brain were obtained without intravenous contrast. This report was created using [employer] report generation technology. COMPARISON: CT head without contrast 12/10/2021. FINDINGS: BRAIN AND EXTRA-AXIAL SPACES: Unremarkable. No intra- or extra-axial hemorrhage. No evidence of acute infarct. No intracranial mass or mass effect. There is preservation of the santo/white matter interface. Posterior fossa structures are unremarkable. Ventricles are appropriate for age. No hydrocephalus. Basal cisterns are patent. SELLA: Unremarkable. Normal sella turcica, pituitary gland, infundibular stalk, optic chiasm and hypothalamus. AUDITORY SYSTEM: Unremarkable. The internal auditory canals are patent. BONES/JOINTS: Unremarkable. No discrete lytic or blastic abnormalities. SINUSES: Unremarkable as visualized. Clear. MASTOID AIR CELLS: Unremarkable as visualized. Clear. ORBITS: Unremarkable as visualized. Both globes, extraocular muscles, optic nerves and retrobulbar fat appear unremarkable. VASCULATURE: Unremarkable as visualized. Normal flow voids in the major intracranial circulation. MRI/Brain without Contrast IMPRESSION: Negative MRI brain without intravenous contrast. Electronically Signed: Pratik Beauchamp MD at 11:24 EDT ,
[2021-12-11 07:54] LABS: Hemoglobin A1c 7.4 % (3.8-5.6)
[2021-12-11 07:58] VITALS: O2SAT 94
[2021-12-11 09:08] LABS: Iron 80 ug/dL (50-170); Iron Binding Capacity,Total 143 ug/dL (250-450); PERCENT IRON SATURATION 55.9 % (15.0-55.0)
[2021-12-11 10:00] VITALS: BP 115/61; PULSE 95; RESP 18; TEMP 36.5; O2SAT 100
--- NOTE | 2021-12-11 10:30 | CASEMGMT ---
Addendum entered by Shruti Hickey 12/11/21 11:14: Pt back from MRI and this RN CM to room. OP speech order explained and pt would like it faxed to [facility]. Pt voices no further questions/concerns/needs for discharge. Jose DURAN CM Original Note: Per speech therapy, pt need order for OP speech therapy at discharge. This RN CM to room with script but pt is out of dept for MRI. CM to follow. Jose DURAN CM
[2021-12-11] MEDS: Enoxaparin 40 MG/0.4 ML Syringe SC (11:21)
[2021-12-11] MEDS: Ursodiol 250 MG Tablet PO (11:22)
[2021-12-11] MEDS: Gabapentin 300 MG Capsule PO (11:22)
[2021-12-11] MEDS: DULoxetine Hcl 60 MG Capsule PO (11:22)
[2021-12-11] MEDS: Folic Acid 1 MG Tablet PO (11:22)
[2021-12-11] MEDS: Thiamine Hydrochloride 100 MG Tablet PO (11:22)
[2021-12-11] MEDS: Aspirin 81 MG TAB.CHEW PO (11:22)
[2021-12-11] MEDS: Multivitamins,Therapeutic Tablet 1 TABLET PO (11:22)
[2021-12-11 13:01] LABS: Bedside Glucose 131 mg/dL (74-106)
[2021-12-11 13:45] VITALS: BP 125/66; PULSE 102; RESP 18; TEMP 36.5; O2SAT 99
--- NOTE | 2021-12-11 14:53 | DCINST_ITS ---
Discharge Instructions Diet Discharge Diet: 1800 Calorie Control Diet Activity Discharge Activity: Return to Normal Activity Weight Bearing Status: Full weight bearing Follow Up Care Test Results: Test results from this visit will be discussed in further detail at your follow- up appointment, if applicable. Discharge Plan Admission Admit Date/Time: 12/10/21 18:54 Primary Reason for Your Visit: speech difficulties Attending Provider: Ron Tejada Primary Care Provider: Valerie Mullins Consulting Providers: Ariane Holloway Instructions Additional Instructions / Restrictions: Follow up with sppech therapy Discharge Orders/Prescriptions Prescriptions: Continued gabapentin 300 mg capsule 300 mg PO BID Label Comments: take 1 capsule by mouth three times a day as directed losartan 50 mg tablet 50 mg PO DAILY metformin 500 mg tablet 500 mg PO BID doxepin 75 mg capsule 150 mg PO QHS Label Comments: take 2 capsules by mouth at bedtime promethazine 25 mg tablet 25 mg PO Q6H PRN (Reason: Nausea) Label Comments: take 1 tablet by mouth every 6 hours if needed for nausea ursodiol 300 mg capsule 300 mg PO BID Label Comments: take 1 capsule by mouth twice a day vitamin E 268 mg (400 unit) Capsule 536 mg PO DAILY duloxetine 60 mg capsule,delayed release(DR/EC) 60 mg PO DAILY Label Comments: take 1 capsule by mouth once daily Referrals / Follow Up: Valerie Mullins MD [Primary Care Provider] - Within 2 Weeks Disposition Disposition (needs filled in before D/C Order can be placed): Home, Self Care
--- NOTE | 2021-12-11 15:02 | DS.PCM_ITS ---
Providers Date of Admission: 12/10/21 Date of Discharge: 12/11/21 Primary Care Physician: Dr. Valerie Mullins MD Reason For Visit: TIA/CVA Diagnosis Discharge Diagnosis (1) TIA (transient ischemic attack): Status: Acute Code(s): G45.9 - Transient cerebral ischemic attack, unspecified Plan 1. Speech difficulties-etiology unclear #2 alcohol intoxication #3 chronic anemia-etiology unclear #4 elevated liver enzymes-etiology unclear #5 hepatic cirrhosis Stroke and TIA were ruled out Medications at Discharge Home Medications gabapentin 300 mg capsule 300 mg PO BID pain 08/11/21 doxepin 75 mg capsule 150 mg PO QHS mood 12/10/21 duloxetine 60 mg capsule,delayed release 60 mg PO DAILY depression 12/10/21 losartan 50 mg tablet 50 mg PO DAILY BP 12/10/21 metformin 500 mg tablet 500 mg PO BID 12/10/21 promethazine 25 mg tablet 25 mg PO Q6H PRN Nausea 12/10/21 ursodiol 300 mg capsule 300 mg PO BID 12/10/21 vitamin E 268 mg (400 unit) capsule 536 mg PO DAILY SUPPLEMENT 12/10/21 Hospital Course Operations None Procedures None Summary of Care Provided Minutes Spent on Discharge: 30 Hospital Course: This 46-year-old white female was seen in the emergency room at [facility] with a chief complaint of problems with her speech-she stated that she had a stuttering and she had some word finding difficulties. This had been going on for the past 48 hours off and on. Work-up in the emergency room included labs which showed a hemoglobin of 10.4, patient's potassium was low at 3, bilirubin was elevated at 1.5, alkaline phosphatase was 272, AST was 107, and ethyl alcohol level was 240. Patient denied any alcohol intake. She has a past history of alcoholism. Brain CT was performed, no abnormalities were noted, patient was placed in observation status on PCU, she received potassium supplementation, she was seen by speech therapy as well as PT and OT, it was determined that she would benefit from outpatient speech therapy and the patient agreed to this. An MRI was performed of the brain as well as an MRA of the head and neck-these imaging studies were unremarkable. On 12/11/2021, patient was seen and examined: On examination she appeared in good health and spirits, she does not appear to be in any distress. Vital signs as documented. Skin warm and dry and without overt rashes. Neck without JVD, thyroid appears normal, trachea is midline, neck is supple. Lungs clear, normal air movement was noted. Heart exam notable for regular rhythm, normal sounds and absence of murmurs, rubs or gallops. Abdomen unremarkable and without evidence of organomegaly, masses, or abdominal aortic enlargement, bowel sounds are present in all 4 quadrants, no abdominal tenderness was noted. Extremities nonedematous, no cyanosis was noted, no clubbing was noted. Neuro: Cranial nerves II through XII are grossly intact, no focal motor deficits were noted, sensation to light touch and pinprick is intact, motor exam 5/5 throughout. Psych: Patient is alert and oriented x3, she does not appear anxious or depressed, she does not appear agitated. On 12/11/2021, patient was seen and examined and felt to be stable for discharge home. Weight / BMI Weight Weight: 50.621 kg Body Mass Index (BMI) 18.0 ABG / Lab / Microbiology Data Result Diagrams: 12/11/21 04:45 12/11/21 04:45 Laboratory: Laboratory Results - last 24 hr 12/10/21 14:50: WBC 7.6, RBC 2.77 L, Hgb 10.4 L, Hct 30.5 L, MCV 110.1 H, MCH 37.5 H, MCHC 34.1, RDW Std Deviation 56.7 H, RDW Coeff of Teressa 13.9, Plt Count 203, MPV 10.3, Immature Gran % (Auto) 0.500, Neut % (Auto) 68.0, Lymph % (Auto) 20.9, [place] % (Auto) 8.1, Eos % (Auto) 2.1, Baso % (Auto) 0.4, Absolute Neuts (auto) 5.2, Absolute Lymphs (auto) 1.59, Nucleated RBC % 0 12/10/21 14:50: Sodium 137, Potassium 3.0 L, Chloride 99, Carbon Dioxide 26.0, Anion Gap 12, BUN 3 L, Creatinine 0.75, Estim Creat Clear Calc 74.37, Est GFR (MDRD) Af Amer 107, Est GFR (MDRD) Non-Af 88, BUN/Creatinine Ratio 4.0 L, Glucose 181 H, Calcium 8.7, Total Bilirubin 1.50 H, AST 107 H, ALT 32, Alkaline Phosphatase 272 H, Troponin I High Sens < 3 L, Total Protein 6.9, Albumin 2.7 L, Globulin 4.2, Albumin/Globulin Ratio 0.6 L, Lipase 80 12/10/21 14:50: PT 14.7, INR 1.2 12/10/21 14:50: Ammonia 25.0 12/10/21 14:50: Ethyl Alcohol 240.0 12/10/21 14:50: Phosphorus 3.5, Magnesium 1.3 L 12/10/21 14:50: Vitamin B12 415 12/10/21 14:50: Folate 6.70 12/10/21 19:15: Urine Color Yellow, Urine Clarity Clear, Urine pH 7.0, Ur Specific [place] 1.005, Urine Protein Negative, Urine Glucose (UA) Normal, Urine Ketones Negative, Urine Occult Blood Negative, Urine Nitrite Negative, Urine Bilirubin Negative, Urine Urobilinogen Normal, Ur Leukocyte Esterase 25 H, Urine RBC 0 SEEN, Urine WBC 0-5 SEEN, Ur Squamous Epith Cells 0-5 SEEN, Urine Bacteria 1+, Urine Mucus 0 SEEN 12/10/21 19:15: Urine Opiates Screen NEGATIVE, Urine Methadone Screen NEGATIVE, Ur Barbiturates Screen NEGATIVE, Ur Phencyclidine Scrn NEGATIVE, Ur Amphetamines Screen NEGATIVE, MDMA (Ecstasy) Screen NEGATIVE, U Benzodiazepines Scrn NEGATIVE, Urine Cocaine Screen NEGATIVE, U Cannabinoids Screen NEGATIVE, Ur Drug Screen Comment 12/10/21 21:48: POC Glucose 124 H 12/11/21 04:45: WBC 5.5, RBC 2.29 L, Hgb 8.4 L, Hct 25.2 L, MCV 110.0 H, MCH 36.7 H, MCHC 33.3, RDW Std Deviation 56.6 H, RDW Coeff of Teressa 14.1, Plt Count 162, MPV 9.7, Immature Gran % (Auto) 0.500, Neut % (Auto) 58.9, Lymph % (Auto) 26.7, [place] % (Auto) 9.1, Eos % (Auto) 4.4, Baso % (Auto) 0.4, Absolute Neuts (auto) 3.2, Absolute Lymphs (auto) 1.46, Nucleated RBC % 0 12/11/21 04:45: Sodium 144, Potassium 3.5, Chloride 110 H, Carbon Dioxide 24.0, Anion Gap 10, BUN 2 L, Creatinine 0.43 L, Estim Creat Clear Calc 129.25, Est GFR (MDRD) Af Amer 202, Est GFR (MDRD) Non-Af 167, BUN/Creatinine Ratio 4.6 L, Glucose 99, Calcium 8.0 L, Total Bilirubin 1.00, AST 96 H, ALT 25, Alkaline Phosphatase 218 H, Total Protein 5.4 L, Albumin 2.1 L, Globulin 3.3, Albumin/Globulin Ratio 0.6 L, Triglycerides 298 H, Cholesterol 156, LDL Cholesterol 78, VLDL Cholesterol 60 H, HDL Cholesterol 18 L, TSH 3.41 12/11/21 04:45: Hemoglobin A1c 7.4 H 12/11/21 04:45: Iron 80, TIBC 143 L, Iron Saturation 55.9 H 12/11/21 05:51: POC Glucose 118 H 12/11/21 11:19: POC Glucose 131 H Radiography Diagnostic Testing: Radiology Impression Brain CT 12/10/21 15:07 IMPRESSION: Normal unenhanced CT scan of the brain. Electronically Signed: Denzel Quijano MD at 15:43 EDT , Chest X-Ray 12/10/21 15:35 IMPRESSION: Normal x-ray examination of the chest. Electronically Signed: Denzel Quijano MD at 15:45 EDT , Brain MRI 12/11/21 07:07 IMPRESSION: Negative MRI brain without intravenous contrast. Electronically Signed: Pratik Beauchamp MD at 11:24 EDT , Head MRA 12/11/21 07:07 IMPRESSION: Normal MRA of the head Electronically Signed: Pratik Beauchamp MD at 12:26 EDT , Neck MRA 12/11/21 07:07 IMPRESSION: Normal bilateral cervical carotid and vertebral arteries. Electronically Signed: Pratik Beauchamp MD at 11:26 EDT , D/C Instructions Discharge Diet: 1800 Calorie Control Diet Weight Bearing Status: Full weight bearing Meaningful Use Info Meaningful Use Diagnoses (Choose all that apply): None applicable Discharge Plan Admission Admit Date/Time: 12/10/21 18:54 Primary Reason for Your Visit: speech difficulties Attending Provider: Ron Tejada Primary Care Provider: Valerie Mullins Consulting Providers: Ariane Holloway Instructions Additional Instructions / Restrictions: Follow up with sppech therapy Discharge Orders/Prescriptions Prescriptions: Continued gabapentin 300 mg capsule 300 mg PO BID Label Comments: take 1 capsule by mouth three times a day as directed losartan 50 mg tablet 50 mg PO DAILY metformin 500 mg tablet 500 mg PO BID doxepin 75 mg capsule 150 mg PO QHS Label Comments: take 2 capsules by mouth at bedtime promethazine 25 mg tablet 25 mg PO Q6H PRN (Reason: Nausea) Label Comments: take 1 tablet by mouth every 6 hours if needed for nausea ursodiol 300 mg capsule 300 mg PO BID Label Comments: take 1 capsule by mouth twice a day vitamin E 268 mg (400 unit) Capsule 536 mg PO DAILY duloxetine 60 mg capsule,delayed release(DR/EC) 60 mg PO DAILY Label Comments: take 1 capsule by mouth once daily Referrals / Follow Up: Valerie Mullins MD [Primary Care Provider] - Within 2 Weeks Disposition Disposition (needs filled in before D/C Order can be placed): Home, Self Care Charges/Coding Visit Charges OBSV E&M: 91805 Observation care discharge
== END 2021-12-11 15:01 | disposition home or self-care (01) ==
LOC: ED 14:55 → PCU 19:57
PROVIDERS: Admitting Provider Family Medicine; Emergency Provider Emergency Medicine; PCP Internal Medicine; Visit Provider Internal Medicine
DX: G45.9 Transient cerebral ischemic attack, unspecified (principal); K70.30 Alcoholic cirrhosis of liver without ascites; F10.20 Alcohol dependence, uncomplicated; E11.42 Type 2 diabetes mellitus with diabetic polyneuropathy; R47.81 Slurred speech; Z79.84 Long term (current) use of oral hypoglycemic drugs; R13.10 Dysphagia, unspecified; D63.8 Anemia in other chronic diseases classified elsewhere; Z86.16 Personal history of COVID-19; I10 Essential (primary) hypertension; K52.9 Noninfective gastroenteritis and colitis, unspecified; E78.5 Hyperlipidemia, unspecified; F41.9 Anxiety disorder, unspecified; Z79.899 Other long term (current) drug therapy; Y90.8 Blood alcohol level of 240 mg/100 ml or more; F17.210 Nicotine dependence, cigarettes, uncomplicated; R29.700 NIHSS score 0; R47.01 Aphasia; E87.6 Hypokalemia
CPT/HCPCS: 36415; 70450; 70544; 70547; 70551; 71045; 80053; 80061; 80307; 81001; 82077; 82140; 82607; 82746; 82962; 83036; 83540; 83550; 83690; 83735; 84100; 84443; 84484; 85025; 85610; 92521; 92523; 92610; 93005; 94762; 96361; 96372; 96374; 97161; 97166; 97802; 99218; 99251; 99285; 99406; J7030; A4216; G0378; G0463; J2405

== ENCOUNTER 2022-01-12 13:56 | Emergency (ER) | payer MEDICAID, SELFPAY ==
[2022-01-12 13:57] VITALS: BP 103/66; PULSE 96; RESP 16; TEMP 35.6; O2SAT 99; BMI 18.3
--- NOTE | 2022-01-12 15:30 | CT_ITS ---
INDICATION: episode of amnesia EXAMINATION: CT BRAIN - CT Head or Brain W/O Contrast Injection TECHNIQUE: Multiple axial images were obtained of the head without intravenous contrast. A radiation dose optimization technique was used for this scan. IV Contrast dosage and agent: None. COMPARISON: 12/10/2021. FINDINGS: BRAIN PARENCHYMA: No intra- or extra-axial hemorrhage. No evidence of acute infarct. No intracranial mass or mass effect. There is preservation of the santo/white matter interface. Posterior fossa structures are unremarkable. CSF SPACES: Appropriate for age. No hydrocephalus. Basal cisterns are patent. CALVARIUM, SKULL BASE, PARANASAL SINUSES AND MASTOID AIR CELLS: Mild circumferential mucosal disease visualized in the ethmoid air cells. No discrete lytic or blastic abnormalities. ORBITS: Both globes, extraocular muscles, optic nerves and retrobulbar fat appear unremarkable. ASPECTS Score for Acute Strokes: 10 CT/Brain/Head without Contrast IMPRESSION: Negative Brain CT without contrast. Electronically Signed: Justyn Manzo MD at 16:19 EDT ,
--- NOTE | 2022-01-12 15:31 | EKG12_ITS ---
Test Reason : DYSRHYTHMIA Blood Pressure : / mmHG Vent. Rate : 086 BPM Atrial Rate : 086 BPM P-R Int : 162 ms QRS Dur : 080 ms QT Int : 402 ms P-R-T Axes : 040 060 030 degrees QTc Int : 481 ms Normal sinus rhythm Prolonged QT Abnormal ECG Confirmed by RAFAEL BECK, TOMY ([id number]), slot editor AMAYA PITTMAN ([id number]) on 01/14/2022 10:05:49 AM Referred By: TANK Confirmed By:TOMY HALL MD
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
[2022-01-12] MEDS: 0.9% Normal Saline 1,000 ML 999 ML IV (15:48)
[2022-01-12 15:50] LABS: Absolute Lymphocyte Count 1.64 X10^3/uL (0.83-4.51); Basophil# 0.04 X10^3/uL; Basophil% 0.5 % (0-1); Eosinophil# 0.18 X10^3/uL; Eosinophils% 2.4 % (0-5); Hemoglobin 9.5 g/dL (12.0-15.0); Lymphocyte # 1.64 X10^3/ul (0.83-4.51); Lymphocyte % 22.1 % (19-41); Mean Corp Hgb Conc 33.9 g/dL (32-36); Mean Corpuscular Hgb 38.6 pg (27.0-32.0); Mean Corpuscular Volume 113.8 fL (81-99); Mean Platelet Vol. 9.4 fl (6.2-12.0); Monocyte# 0.55 X10^3/uL; Monocyte% 7.4 % (0-10); NRBC Flagged by Analyzer 0 % (0-5); Neutrophil # 4.96 X10^3/uL (2.7-7.7); Neutrophil % 67.1 % (47-70); POSITIVE MORPHOLOGY YES; Platelet Count 252 K/mm3 (150-450); RBC Distribution Width CV 15.9 % (11.6-14.6); RBC Distribution Width SD 65.3 fl (35.1-43.9); Red Blood Count 2.46 M/mm3 (4.2-5.4); White Blood Count 7.4 K/mm3 (4.4-11.0)
[2022-01-12 15:53] LABS: Mucous, Urine 0 SEEN /hpf (<or=2+); Red Blood Cells-Urine 0 SEEN /hpf (0-5); White Blood Cells 0 SEEN /hpf (0-5)
[2022-01-12 16:00] LABS: Differential Indicated SCAN CRITERIA MET
[2022-01-12 16:09] LABS: ALB/GLOB Ratio 0.6 RATIO (0.9-2.4); AST(SGOT) 107 U/L (15-37); Alanine Aminotransfer ALT/SGPT 29 U/L (13-56); Albumin, Serum 2.5 g/dL (3.2-5.0); Alkaline Phosphatase 352 U/L (45-117); Anion Gap 11 (5-15); BUN 2 mg/dL (7-18); BUN/Creat Ratio 3.2 RATIO (10-20); Calcium,Total 8.9 mg/dL (8.5-10.1); Chloride 101 mmol/L (98-107); Creatinine, Serum 0.62 mg/dL (0.55-1.02); EST Glomerular Filtration Rate 109 mL/min (>60); Est Glom Filt Rate - Afr Amer 132 mL/min (>60); Estimated Creatinine Clearance 91.57 ml/min; Globulin 4.2 g/dL (2.2-4.2); Glucose 117 mg/dL (74-106); Potassium 3.1 mmol/L (3.5-5.1); Protein, Total 6.7 g/dL (6.4-8.2); Sodium Level 139 mmol/L (136-145)
[2022-01-12 16:13] LABS: Color, Urine Yellow (Yellow); Glucose, Dipstick Normal (Normal); Ketone-Dipstick Negative (Negative); Leukocyte Esterase-Dipstick Negative /ul (Negative); Nitrite-Dipstick Negative (Negative); Occult Blood-Urine Negative /ul (Negative); Protein-Dipstick Negative (Negative); Specific Gravity, Urine 1.005 (1.002-1.030); Urine Bilirubin Dipstick Negative (Negative); Urine Clarity Clear (Clear); Urine Urobilinogen Normal (Normal)
[2022-01-12 16:16] LABS: Bacteria 1+ /hpf (None Seen); Squamous Epithelial Cells - UA 0-5 SEEN /hpf (5-10)
[2022-01-12 16:25] LABS: Amphetamine Urine VISTA NEGATIVE (<1000 ng/mL); Barbiturate Urine VISTA NEGATIVE (< 200 ng/mL); Benzodiazepine Urine VISTA NEGATIVE (< 200 ng/mL); Cocaine Urine VISTA NEGATIVE (< 300 ng/mL); Ecstacy Urine VISTA NEGATIVE (< 500 ng/mL); Methadone Urine VISTA NEGATIVE (< 300 ng/mL); PCP Urine VISTA NEGATIVE (< 25 ng/mL); THC Urine VISTA NEGATIVE (< 50 ng/mL); Vista UDS pH Range 7
--- NOTE | 2022-01-12 16:25 | RAD_ITS ---
STUDY: X-RAY CHEST REASON FOR EXAM: Female, 46 years old. confusion TECHNIQUE: PA and lateral views of the chest. COMPARISON: 12/10/2021 FINDINGS: The lungs are clear and expanded. There is no demonstrated pleural abnormality. Normal size heart. Normal mediastinum and niurka. Normal visualized pulmonary arteries. Normal visualized aortic arch and descending thoracic aorta. Normal visualized thoracic spine. Normal visualized ribs, clavicles, and shoulders. There is no demonstrated abnormality of the visualized soft tissue structures of the upper abdomen. RAD/Chest PA and Lateral IMPRESSION: Normal x-ray examination of the chest. Electronically Signed: Nam Degroot MD at 16:38 EDT ,
[2022-01-12 16:26] LABS: Anisocytosis 1+; Differential Comment SCANNED
[2022-01-12] MEDS: Potassium Chloride Oral Tablet 20 MEQ 40 MEQ PO (16:58)
[2022-01-12 17:34] VITALS: BP 114/66; PULSE 88; RESP 16; O2SAT 98
== END 2022-01-12 17:40 | disposition home or self-care (01) ==
PROVIDERS: Emergency Provider Emergency Medicine; PCP Internal Medicine; Visit Provider Emergency Medicine
DX: G45.4 Transient global amnesia (principal); K70.30 Alcoholic cirrhosis of liver without ascites; F10.20 Alcohol dependence, uncomplicated; E11.40 Type 2 diabetes mellitus with diabetic neuropathy, unspecified; D64.9 Anemia, unspecified; E87.6 Hypokalemia; E80.7 Disorder of bilirubin metabolism, unspecified; I10 Essential (primary) hypertension; S09.90XA Unspecified injury of head, initial encounter; W50.0XXA Accidental hit or strike by another person, initial encounter; Y93.89 Activity, other specified; Y99.8 Other external cause status; Y90.7 Blood alcohol level of 200-239 mg/100 ml; F17.210 Nicotine dependence, cigarettes, uncomplicated; F17.290 Nicotine dependence, other tobacco product, uncomplicated; Z79.84 Long term (current) use of oral hypoglycemic drugs; Z79.899 Other long term (current) drug therapy; Z86.16 Personal history of COVID-19
CPT/HCPCS: 70450; 71046; 80053; 80307; 81001; 82077; 82140; 85025; 93005; 96360; 96361; 99285; J7030; A4216

== ENCOUNTER 2022-02-03 18:32 | Inpatient (IN) | payer MEDICAID, SELFPAY ==
[2022-02-03 18:33] VITALS: BP 96/43; PULSE 103; RESP 18; TEMP 36.7; O2SAT 100
[2022-02-03 20:04] LABS: Absolute Neutrophil Count 7.2 X10^3/uL (2.0-7.7); Basophil# 0.04 X10^3/uL; Basophil% 0.4 % (0-1); Eosinophil# 0.07 X10^3/uL; Eosinophils% 0.7 % (0-5); Hematocrit 31.1 % (37-47); Hemoglobin 10.3 g/dL (12.0-15.0); Lymphocyte % 13.6 % (19-41); Mean Corp Hgb Conc 33.1 g/dL (32-36); Mean Corpuscular Hgb 37.3 pg (27.0-32.0); Mean Corpuscular Volume 112.7 fL (81-99); Mean Platelet Vol. 9.9 fl (6.2-12.0); Monocyte% 9.4 % (0-10); NRBC Flagged by Analyzer 0 % (0-5); Neutrophil # 7.23 X10^3/uL (2.7-7.7); Neutrophil % 75.4 % (47-70); Platelet Count 244 K/mm3 (150-450); RBC Distribution Width CV 15.2 % (11.6-14.6); RBC Distribution Width SD 61.4 fl (35.1-43.9); Red Blood Count 2.76 M/mm3 (4.2-5.4); White Blood Count 9.6 K/mm3 (4.4-11.0)
--- NOTE | 2022-02-03 20:14 | EDS_ITS ---
HPI HPI - GI History of Present Illness Chief Complaint: Abd Pain Detail of Chief Complaint: Liver cirrhosis with abdominal ascites. Informant: patient Abdominal Pain/Flank Pain Onset: Days Context: Gradual Onset Timing: Continuous Location: Diffuse Current Severity: Mild Maximum Severity: Mild Nausea/Vomiting/Emesis GI Symptom: Positive for Nausea and Vomiting Severity: Mild Diarrhea/Melena/Hematochezia GI Symptom: Negative for Diarrhea, Melena or Hematochezia Associated Symptoms Associated Symptoms: Negative for Dysuria, Frequency, Hematuria or Urgency Narrative Narrative: 46-year-old female history of alcohol abuse, diabetes, pancreatitis, cirrhosis. Basically over the last several days has developed abdominal ascites with swelling. She is never had a paracentesis. States she has had some nausea and vomiting last several days. No diarrhea. Constipation. No dysuria. No fever. Prior abdominal surgery includes 3 C-sections. Prior similar symptoms: Yes Recent Illness/Hospitalization: No PFSH PFSH Medical History Alcoholism Anxiety Asthma Breast implant status Chronic diarrhea Cirrhosis COVID-19 Diabetes Diabetes Fatty liver Gastritis and duodenitis H. pylori infection HLD (hyperlipidemia) HTN (hypertension) Migraines Nicotine abuse Pancreatitis Post-menopausal Recurrent acute pancreatitis Smoker Home Medications gabapentin 300 mg capsule 300 mg PO BID pain 08/11/21 [History Last Taken 12/10/21] doxepin 75 mg capsule 150 mg PO QHS mood 12/10/21 [History Last Taken 12/09/21] duloxetine 60 mg capsule,delayed release 60 mg PO DAILY depression 12/10/21 [History Last Taken 12/09/21] losartan 50 mg tablet 50 mg PO DAILY BP 12/10/21 [History Last Taken 12/10/21] metformin 500 mg tablet 500 mg PO BID 12/10/21 [History Last Taken 12/10/21] promethazine 25 mg tablet 25 mg PO Q6H PRN Nausea 12/10/21 [History Last Taken 12/08/21] ursodiol 300 mg capsule 300 mg PO BID 12/10/21 [History Last Taken 12/10/21] vitamin E 268 mg (400 unit) capsule 536 mg PO DAILY SUPPLEMENT 12/10/21 [History Last Taken 12/09/21] Allergy/AdvReac Type Severity Reaction Status Date / Time azithromycin [From Zithromax] AdvReac Diarrhea Verified 02/03/22 18:33 codeine AdvReac Nausea Verified 02/03/22 18:33 promethazine [From Phenergan] AdvReac Vomiting Verified 02/03/22 18:33 Family History Father Cancer Lung CA with tobacco use history. Heart disease Mother Cancer Hx breast CA. Diabetes Hypertension Surgical History H/O breast augmentation H/O: knee surgery Previous section S/P tonsillectomy and adenoidectomy Social History housing: other details: Lives at home, her 15, 16 year old children live with her. 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 substance use type: does not use ROS ROS ED ROS Narrative Abdominal swelling. Abdominal pain. Nausea vomiting. Review of Systems ROS Unobtainable: Denies due to encephalopathy Constitutional Constitutional ED: Denies chills or fever(s) ENT ENT ED: Denies ear pain Cardiovascular Cardiovascular: Denies chest pain Respiratory/Chest Respiratory/Chest: Denies cough Gastrointestinal Gastrointestinal: Reports abdominal pain, constipation, nausea and vomiting; Denies diarrhea or melena Genitourinary Genitourinary ED: Denies dysuria Musculoskeletal Musculoskeletal: Denies arthralgias Integumentary Denies abscess Neurologic Neurologic: Denies headache(s) Psychiatric Psychiatric: Denies anxiety Endocrine Endocrinology: Denies polydipsia Hematologic/Lymphatic Hematologic/Lymphatic: Denies easy bleeding Allergic/Immunologic Allergic/Immunologic ED: Denies mouth swelling EXAM Physical Exam Narrative Exam Narrative: Middle-aged female no acute distress. Vital signs stable afebrile. Blood pressure is low at 96/43. Pulse ox 100% on room air no hypoxia. No distress. H EENT exam mild DryMax membranes otherwise unremarkable. Neck nontender no JVD. Lungs clear to auscultation. Heart regular rhythm rate about 100 no murmur. Abdomen distended consistent with ascites. No significant tenderness. No peritoneal signs. Moving all 4 extremities. Trace ankle edema bilaterally. Normal motor strength both upper and lower extremities. Back nontender. Neurologically she is awake and alert. No focal motor deficits. Const Vital Signs: 02/03/22 18:33 02/03/22 21:43 Temperature 98.1 F 97.0 F L Temperature Source Temporal Temporal Pulse Rate 103 H 97 Respiratory Rate 18 16 Blood Pressure 96/43 L 107/51 L Blood Pressure Mean 60 69 Pulse Ox 100 96 Oxygen Delivery Method Room Air Room Air Positive well nourished and well developed; Negative for obese, cachectic, contractures or unkempt General Appearance ED: well developed and NAD; Negative for unkempt, cachectic, contractures or pallor Nutritional Appearance: Negative for cachectic or obese HEENT Reports dry mucous membranes; Denies moist mucous membranes normocephalic and atraumatic; Negative for trauma or tenderness Mouth ED: Yes dry mucous membranes Mouth: dry mucous membranes Eyes PERRL and EOMs intact bilaterally General Eye ED: Yes scleral icterus; Negative for pale conjunctiva Neck no lymphadenopathy, supple and no JVD General: Negative for tenderness Carotids: Negative for other Lymph Lymphatic: Negative for other Resp normal respiratory effort and clear to auscultation bilaterally Effort and Inspection: Negative for respiratory distress Auscultation: Negative for rales, rhonchi or wheezes Cardio regular rate, regular rhythm, S1 normal heart sound, S2 normal heart sound and no murmurs Rate: Negative for bradycardia or tachycardic Rhythm: Negative for abnormal rhythm GI non-tender and no masses; Negative for non-distended GI Narrative: Abdomen distended consistent with abdominal ascites. No peritoneal signs. Inspection: abdominal distention Auscultation: normoactive bowel sounds Back/Spine no CVA tenderness General Back: Negative for CVA tenderness Cervical Spine: Negative for cervical spine tenderness Thoracic Spine / Upper Back: Negative for thoracic spinal tenderness Lumbar Spine / Lower Back: Negative for lumbar spinal tenderness Coccyx: Negative for other Extremity full ROM General Extremety ED: Yes edema; Negative for tenderness General Extremity: edema Neuro CN's II-XII intact bilaterally and moves all extremities Sensorium / Orientation: alert, oriented to person, oriented to place and oriented to time; Negative for orientation impaired, confused, lethargic or stuporous Motor Exam: strength 5/5 throughout Psych mental status grossly normal and thought process normal Appearance: Negative for unkempt Attitude: No agitated Mood & Affect: Negative for depressed, anxious or tearful Skin no wounds General Skin Exam: jaundice; Negative for pallor Lesions: no lesions Rashes: no rashes Trauma: Negative for abrasion Nails: Negative for discolored MDM MDM MDM Narrative Medical decision making narrative: 46-year-old female with known cirrhosis with abdominal ascites. Nausea and vomiting. She will be treated with IV fluids half a liter Zofran for nausea and screening labs to be obtained. She will need abdominal paracentesis as not available tonight. We may admit her and do that or possibly had her set up to have it done as an outpatient. Repeat exam at 10:29 PM unchanged. Patient's have abdominal pain from the ascites. She was treated with Zofran for nausea. That has improved. She and I discussed options. I will speak to the hospitalist about admission for paracentesis in the morning. Lab Data Attestation: I reviewed the patient's lab results. Lab results narrative: CBC shows normal white count 9.6. H&H 10.3 and 31.1. Platelets 244. Electrolytes show potassium 3.0. Gap 11 normal BUN and creatinine glucose 105. Liver enzymes show total bilirubin of 7.4 direct 6.5 AST of 55 alk phos 267. Lipase normal at 82. PT is 16 INR was normal at 1. PTT 33. UA shows positive nitrates no white or red cells. Positive bacteria. No urinary symptoms. A c ulture will be sent. Labs are consistent with prior labs on this patient. Labs: Laboratory Results - last 24 hr 02/03/22 02/03/22 02/03/22 19:40 19:40 19:40 WBC 9.6 RBC 2.76 L Hgb 10.3 L Hct 31.1 L MCV 112.7 H MCH 37.3 H MCHC 33.1 RDW Std Deviation 61.4 H RDW Coeff of Teressa 15.2 H Plt Count 244 MPV 9.9 Immature Gran % (Auto) 0.500 Neut % (Auto) 75.4 H Lymph % (Auto) 13.6 L [place] % (Auto) 9.4 Eos % (Auto) 0.7 Baso % (Auto) 0.4 Absolute Neuts (auto) 7.2 Absolute Lymphs (auto) 1.30 Nucleated RBC % 0 PT INR APTT Sodium 136 Potassium 3.0 L Chloride 94 L Carbon Dioxide 31.0 Anion Gap 11 BUN 2 L Creatinine 0.65 Estim Creat Clear Calc 95.27 Est GFR (MDRD) Af Amer 125 Est GFR (MDRD) Non-Af 104 BUN/Creatinine Ratio 3.1 L Glucose 105 Calcium 8.5 Total Bilirubin 7.40 H Direct Bilirubin 6.54 H AST 55 H ALT 21 Alkaline Phosphatase 267 H Total Protein 6.2 L Albumin 2.1 L Globulin 4.1 Lipase 82 Urine Color Urine Clarity Urine pH Ur Specific [place] Urine Protein Urine Glucose (UA) Urine Ketones Urine Occult Blood Urine Nitrite Urine Bilirubin Urine Urobilinogen Ur Leukocyte Esterase Urine RBC Urine WBC Ur Squamous Epith Cells Urine Bacteria Hyaline Casts Urine Mucus 02/03/22 02/03/22 20:28 21:12 WBC RBC Hgb Hct MCV MCH MCHC RDW Std Deviation RDW Coeff of Teressa Plt Count MPV Immature Gran % (Auto) Neut % (Auto) Lymph % (Auto) [place] % (Auto) Eos % (Auto) Baso % (Auto) Absolute Neuts (auto) Absolute Lymphs (auto) Nucleated RBC % PT 16.6 H INR 1.4 APTT 33.3 Sodium Potassium Chloride Carbon Dioxide Anion Gap BUN Creatinine Estim Creat Clear Calc Est GFR (MDRD) Af Amer Est GFR (MDRD) Non-Af BUN/Creatinine Ratio Glucose Calcium Total Bilirubin Direct Bilirubin AST ALT Alkaline Phosphatase Total Protein Albumin Globulin Lipase Urine Color Olga Urine Clarity Clear Urine pH 6.5 Ur Specific [place] 1.010 Urine Protein 100 H Urine Glucose (UA) Normal Urine Ketones 15 H Urine Occult Blood 10 H Urine Nitrite Positive H Urine Bilirubin 6 H Urine Urobilinogen 12 H Ur Leukocyte Esterase 25 H Urine RBC 0-5 SEEN Urine WBC 0-5 SEEN Ur Squamous Epith Cells 10-25 SEEN Urine Bacteria 2+ Hyaline Casts 5-10 SEEN Urine Mucus 1+ Discharge Plan Triage Chief Complaint: Abd Pain ED Provider: Kristian Smith Dx/Rx/DC Orders Clinical Impression: Abdominal pain, Alcoholic cirrhosis of liver with ascites, Vomiting, History of diabetes mellitus, History of pancreatitis Prescriptions: No Action gabapentin 300 mg capsule 300 mg PO BID Label Comments: take 1 capsule by mouth three times a day as directed losartan 50 mg tablet 50 mg PO DAILY metformin 500 mg tablet 500 mg PO BID doxepin 75 mg capsule 150 mg PO QHS Label Comments: take 2 capsules by mouth at bedtime promethazine 25 mg tablet 25 mg PO Q6H PRN (Reason: Nausea) Label Comments: take 1 tablet by mouth every 6 hours if needed for nausea ursodiol 300 mg capsule 300 mg PO BID Label Comments: take 1 capsule by mouth twice a day vitamin E 268 mg (400 unit) Capsule 536 mg PO DAILY duloxetine 60 mg capsule,delayed release(DR/EC) 60 mg PO DAILY Label Comments: take 1 capsule by mouth once daily Primary Care Provider: Valerie Mullins Referrals: Valerie Mullins MD [Primary Care Provider] - Disposition Disposition: Acute Care Hospital [facility]
[2022-02-03 20:24] LABS: Anion Gap 11 (5-15); BUN 2 mg/dL (7-18); BUN/Creat Ratio 3.1 RATIO (10-20); Calcium,Total 8.5 mg/dL (8.5-10.1); Chloride 94 mmol/L (98-107); Creatinine, Serum 0.65 mg/dL (0.55-1.02); EST Glomerular Filtration Rate 104 mL/min (>60); Est Glom Filt Rate - Afr Amer 125 mL/min (>60); Estimated Creatinine Clearance 95.27 ml/min; Glucose 105 mg/dL (74-106); Sodium Level 136 mmol/L (136-145)
[2022-02-03 20:52] LABS: AST(SGOT) 55 U/L (15-37); Alanine Aminotransfer ALT/SGPT 21 U/L (13-56); Albumin, Serum 2.1 g/dL (3.2-5.0); Alkaline Phosphatase 267 U/L (45-117); Bilirubin, Direct 6.54 mg/dL (0.00-0.30); Globulin 4.1 g/dL (2.2-4.2); Lipase 82 U/L (73-393); Protein, Total 6.2 g/dL (6.4-8.2)
[2022-02-03 20:52] LABS: International Normalized Ratio 1.4; Partial Thromboplast Time 33.3 Seconds (24.1-36.2); Prothrombin Time (Protime)PT. 16.6 SECONDS (11.7-14.9)
[2022-02-03 21:29] LABS: Color, Urine Amber (Yellow); Glucose, Dipstick Normal (Normal); Ketone-Dipstick 15 mg/dl (Negative); Leukocyte Esterase-Dipstick 25 /ul (Negative); Nitrite-Dipstick Positive (Negative); Occult Blood-Urine 10 /ul (Negative); Protein-Dipstick 100 mg/dl (Negative); Urine Clarity Clear (Clear); Urine Urobilinogen 12 mg/dl (Normal); Urine pH 6.5 (5.0 - 8.0)
[2022-02-03 21:31] LABS: Urine Bilirubin Dipstick 6 mg/dL (Negative)
[2022-02-03 21:40] LABS: Bacteria 2+ /hpf (None Seen); Red Blood Cells-Urine 0-5 SEEN /hpf (0-5); Squamous Epithelial Cells - UA 10-25 SEEN /hpf (5-10); White Blood Cells 0-5 SEEN /hpf (0-5)
[2022-02-03 21:41] LABS: Hyaline Cast 5-10 SEEN /lpf (0-5); Mucous, Urine 1+ /hpf (<or=2+)
[2022-02-03 21:43] VITALS: BP 107/51; PULSE 97; RESP 16; TEMP 36.1; O2SAT 96
--- NOTE | 2022-02-03 22:41 | HP.PCM.HOS_ITS ---
HPI - General General Date of Admission: 02/03/22 Date of Service: 02/03/22 Chief Complaint: abdominal pain HPI Narrative DAVID TATE, is a 46 F with a PMH as outlined who presents via the ED on 02/03/2022 with a complaint of abdominal pain and swelling. She has a history of cirrhosis due to alcohol abuse and complained of abdominal pain and swelling over the last few days prior to admission, with associated nausea and vomiting. She has never had a paracentesis. She went to see her GI and it was thought that she would need paracentesis, so she was sent to the ED. Vitals were BP of 107/51, AR of 97, RR of 16 and and temp of 97F. She was saturating at 96% on room air. CBC showed hb of 10.3, platelets of 244 and wbc of 9.6. INR is 1.4 nad chemistry showed sodium of 136 and potassium of 3 as well as chloride of 94. Total bilirubin was 7.4 with direct bilirubiin of 6.54; AST was 55 and ALT was 21 with ALP of 267. Urinalysis showed 2+ bacteria and 0-5 wbcs; she appears to have bacteria in her urine since November 2021. She is being admitted to be managed for new onset ascites in a patient with known cirrhosis due to alcoholic liver disease. PFSH Medical History Alcoholism Anxiety Asthma Breast implant status Chronic diarrhea Cirrhosis COVID-19 Diabetes Diabetes Fatty liver Gastritis and duodenitis H. pylori infection HLD (hyperlipidemia) HTN (hypertension) Migraines Nicotine abuse Pancreatitis Post-menopausal Recurrent acute pancreatitis Smoker Home Medications gabapentin 300 mg capsule 300 mg PO BID pain 08/11/21 [History Last Taken 12/10/21] doxepin 75 mg capsule 150 mg PO QHS mood 12/10/21 [History Last Taken 12/09/21] duloxetine 60 mg capsule,delayed release 60 mg PO DAILY depression 12/10/21 [History Last Taken 12/09/21] losartan 50 mg tablet 50 mg PO DAILY BP 12/10/21 [History Last Taken 12/10/21] metformin 500 mg tablet 500 mg PO BID 12/10/21 [History Last Taken 12/10/21] promethazine 25 mg tablet 25 mg PO Q6H PRN Nausea 12/10/21 [History Last Taken 12/08/21] ursodiol 300 mg capsule 300 mg PO BID 12/10/21 [History Last Taken 12/10/21] vitamin E 268 mg (400 unit) capsule 536 mg PO DAILY SUPPLEMENT 12/10/21 [History Last Taken 12/09/21] Allergy/AdvReac Type Severity Reaction Status Date / Time azithromycin [From Zithromax] AdvReac Diarrhea Verified 02/03/22 18:33 codeine AdvReac Nausea Verified 02/03/22 18:33 promethazine [From Phenergan] AdvReac Vomiting Verified 02/03/22 18:33 Family History Father Cancer Lung CA with tobacco use history. Heart disease Mother Cancer Hx breast CA. Diabetes Hypertension Surgical History H/O breast augmentation H/O: knee surgery Previous section S/P tonsillectomy and adenoidectomy Social History housing: other details: Lives at home, her 15, 16 year old children live with her. 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 substance use type: does not use ROS Constitutional Constitutional: Reports fatigue, malaise and weakness; Denies anorexia, chills or fever(s) Eyes Eyes: Denies change in vision ENT HEENT: Denies abnormal hearing, epistaxis, headache(s) or nasal congestion Cardiovascular Cardiovascular: Denies chest pain, dyspnea on exertion, edema, lightheadedness, orthopnea, palpitations, paroxysmal nocturnal dyspnea or rapid heart rate Respiratory/Chest Respiratory/Chest: Denies cough, dyspnea, productive cough, shortness of breath at rest or shortness of breath with exertion Gastrointestinal Gastrointestinal: Reports abdominal pain and other Details: abdominal distension ; Denies constipation, diarrhea, dyspepsia, hematemesis, hematochezia, loose stools, nausea or vomiting Genitourinary Genitourinary: Denies burning urination, dysuria or urinary hesitancy Musculoskeletal Musculoskeletal: Denies arthralgias, joint stiffness or joint swelling Neurologic Neurologic: Denies confusion, dizziness, focal weakness, headache(s), numbness, seizures or syncope Psychiatric Psychiatric: Denies anxiety or depression Endocrine Endocrinology: Reports change in body appearance Hematologic/Lymphatic Hematologic/Lymphatic: Denies anemia Vital Signs Vital Signs Vital Signs: 02/03/22 18:33 02/03/22 21:43 Temperature 98.1 F 97.0 F L Temperature Source Temporal Temporal Pulse Rate 103 H 97 Respiratory Rate 18 16 Blood Pressure 96/43 L 107/51 L Blood Pressure Mean 60 69 Pulse Ox 100 96 Oxygen Delivery Method Room Air Room Air Weight Weight: 124 lb 5.451 oz Body Mass Index (BMI) 20.0 Physical Exam Const alert, oriented x3 and no apparent distress Constitutional Narrative: jaundiced sclera General Appearance: cooperative HEENT normocephalic, head/scalp atraumatic, hearing grossly normal bilaterally and moist oral mucous membranes Mouth: oral and palatal mucosa normal Eyes PERRL, EOMs intact bilaterally and conjunctivae normal Eyes Narrative: jaundice of conjuctivae Neck no lymphadenopathy, supple and no JVD Resp normal respiratory effort, no retractions, no use of accessory muscles and clear to auscultation bilaterally Cardio regular rate, regular rhythm, S1 normal heart sound, S2 normal heart sound and no murmurs GI GI Narrative: abdomen markedly distended, with positive fluid thrill, difficult to assess for organomegaly in light of marked ascites Extremity normal to inspection, full ROM and no clubbing, cyanosis or edema Neuro oriented x3, CN's II-XII intact bilaterally, moves all extremities and no focal motor deficits Sensorium / Orientation: awake and alert Speech: speech normal Motor Exam: strength 5/5 throughout Psych affect normal Results Lab / Micro Data Result Diagrams: 02/03/22 19:40 02/03/22 19:40 Labs: Laboratory Results - last 24 hr 02/03/22 19:40: WBC 9.6, RBC 2.76 L, Hgb 10.3 L, Hct 31.1 L, MCV 112.7 H, MCH 37.3 H, MCHC 33.1, RDW Std Deviation 61.4 H, RDW Coeff of Teressa 15.2 H, Plt Count 244, MPV 9.9, Immature Gran % (Auto) 0.500, Neut % (Auto) 75.4 H, Lymph % (Auto) 13.6 L, [place] % (Auto) 9.4, Eos % (Auto) 0.7, Baso % (Auto) 0.4, Absolute Neuts (auto) 7.2, Absolute Lymphs (auto) 1.30, Nucleated RBC % 0 02/03/22 19:40: Sodium 136, Potassium 3.0 L, Chloride 94 L, Carbon Dioxide 31.0, Anion Gap 11, BUN 2 L, Creatinine 0.65, Estim Creat Clear Calc 95.27, Est GFR (MDRD) Af Amer 125, Est GFR (MDRD) Non-Af 104, BUN/Creatinine Ratio 3.1 L, Glucose 105, Calcium 8.5 02/03/22 19:40: Total Bilirubin 7.40 H, Direct Bilirubin 6.54 H, AST 55 H, ALT 21, Alkaline Phosphatase 267 H, Total Protein 6.2 L, Albumin 2.1 L, Globulin 4.1, Lipase 82 02/03/22 20:28: PT 16.6 H, INR 1.4, APTT 33.3 02/03/22 21:12: Urine Color Olga, Urine Clarity Clear, Urine pH 6.5, Ur Specific [place] 1.010, Urine Protein 100 H, Urine Glucose (UA) Normal, Urine Ketones 15 H, Urine Occult Blood 10 H, Urine Nitrite Positive H, Urine Bilirubin 6 H, Urine Urobilinogen 12 H, Ur Leukocyte Esterase 25 H, Urine RBC 0-5 SEEN, Urine WBC 0-5 SEEN, Ur Squamous Epith Cells 10-25 SEEN, Urine Bacteria 2+, Hyaline Casts 5-10 SEEN, Urine Mucus 1+ Assessment & Plan Assessment/Plan (1) Alcoholic cirrhosis of liver with ascites: PLAN: Plan Abdominal ascites due to cirrhosis from alcoholic liver disease * admit to med surg * ascites is new, and she has never had paracentesis before * total bilirubin is 7.4, with direct bilirubin of 6.54 * consult gastroenterology * for diagnostic and therapeutic paracentesis tomorrow * to give albumin if >5L of fluid removed * #Cirrhosis due to alcoholic liver disease: as above. Says she doesnt drink any alcohol anymore. On ursodiol #Diabetes mellitus * hold metformin. ISS> Accuchecks ACHS * #Depression: on duloxetine DVT prophylaxis: SCDs. COde status: Charges/Coding Visit Charges Inpatient E&M: 30452 Init Hosp L3
[2022-02-03 22:59] VITALS: BP 113/69; PULSE 94; RESP 16; TEMP 36.7; O2SAT 98
[2022-02-03] MEDS: HYDROcodone Bitartrate/Apap 5/325 Tablet PO (23:12)
[2022-02-03 23:41] VITALS: BP 97/61; PULSE 94; RESP 16; TEMP 36.9; O2SAT 96
[2022-02-04] VITALS (7 sets, daily range): BP systolic 93–116; BP diastolic 50–64; PULSE 76–95; RESP 16–18; TEMP 36.5–37.1; O2SAT 93–100
[2022-02-04] MEDS: Ondansetron 4 MG/2 ML Vial IV ×5 (00:07→22:15)
[2022-02-04] MEDS: 0.9% Saline Lock 10 ML Syringe IV ×6 (00:07→23:17)
[2022-02-04 00:21] LABS: Bedside Glucose 102 mg/dL (74-106)
[2022-02-04] MEDS: oxyCODONE 5 MG Tablet PO (05:30)
[2022-02-04 06:00] LABS: Absolute Lymphocyte Count 1.44 X10^3/uL (0.83-4.51); Absolute Neutrophil Count 5.1 X10^3/uL (2.0-7.7); Basophil# 0.04 X10^3/uL; Basophil% 0.5 % (0-1); Eosinophils% 1.3 % (0-5); Hematocrit 26.4 % (37-47); Hemoglobin 8.7 g/dL (12.0-15.0); Lymphocyte # 1.44 X10^3/ul (0.83-4.51); Lymphocyte % 19.1 % (19-41); Mean Corpuscular Hgb 37.7 pg (27.0-32.0); Mean Corpuscular Volume 114.3 fL (81-99); Mean Platelet Vol. 10.2 fl (6.2-12.0); Monocyte% 10.6 % (0-10); NRBC Flagged by Analyzer 0 % (0-5); Platelet Count 183 K/mm3 (150-450); RBC Distribution Width CV 15.4 % (11.6-14.6); RBC Distribution Width SD 62.4 fl (35.1-43.9); Red Blood Count 2.31 M/mm3 (4.2-5.4); White Blood Count 7.5 K/mm3 (4.4-11.0)
[2022-02-04 06:30] LABS: ALB/GLOB Ratio 0.5 RATIO (0.9-2.4); AST(SGOT) 51 U/L (15-37); Alanine Aminotransfer ALT/SGPT 18 U/L (13-56); Albumin, Serum 1.8 g/dL (3.2-5.0); Alkaline Phosphatase 227 U/L (45-117); Anion Gap 9 (5-15); BUN 3 mg/dL (7-18); BUN/Creat Ratio 6.1 RATIO (10-20); Calcium,Total 7.7 mg/dL (8.5-10.1); Chloride 97 mmol/L (98-107); Creatinine, Serum 0.49 mg/dL (0.55-1.02); EST Glomerular Filtration Rate 143 mL/min (>60); Est Glom Filt Rate - Afr Amer 173 mL/min (>60); Estimated Creatinine Clearance 126.37 ml/min; Globulin 3.4 g/dL (2.2-4.2); Glucose 98 mg/dL (74-106); Potassium 3.1 mmol/L (3.5-5.1); Protein, Total 5.2 g/dL (6.4-8.2); Sodium Level 137 mmol/L (136-145)
[2022-02-04 06:42] LABS: Bedside Glucose 108 mg/dL (74-106)
--- NOTE | 2022-02-04 07:00 | US_ITS ---
PROCEDURE: Ultrasound guided paracentesis. DATE OF EXAMINATION: 02/04/2022. INDICATION: Female, 46 years old. Ascites. PHYSICIAN: Denzel Quijano M.D. TECHNIQUE: The risks, benefits, and alternatives to the procedure were explained to the patient. The specific risks of bleeding, infection, and damage to bowel were detailed and accepted. Witnessed informed consent was obtained. The abdomen was ultrasonographically surveyed. An appropriate pocket of fluid was identified at the right lower quadrant. The skin were cleaned and prepped in the usual sterile fashion. Using ultrasound guidance, the peritoneal cavity was accessed with a 5-Fijian paracentesis needle/catheter system. The trocar was removed. A total of 1150 ml of annalisa-colored fluid were removed from the peritoneal cavity. A 100 mL sample was sent to the laboratory for analysis. The catheter was removed and a sterile dressing was applied. The procedure was well tolerated. US/Paracentesis with US IMPRESSION: Ultrasound guided paracentesis. Electronically Signed: Denzel Quijano MD at 14:57 EDT ,
[2022-02-04] MEDS: Gabapentin 300 MG Capsule PO ×2 (07:44→16:12)
[2022-02-04] MEDS: Ursodiol 250 MG Tablet PO ×2 (07:44→16:11)
--- NOTE | 2022-02-04 07:55 | PN.HOSP_ITS ---
Subjective Subjective Patient is a 46-year-old lady with history of alcoholic liver disease admitted with abdominal pain and distention Objective Data Objective Data Vital Signs: Vital Signs Temp Pulse Resp BP Pulse Ox O2 Del Method 97.7 F L 85 18 101/60 96 Room Air 02/04/22 07:31 02/04/22 07:31 02/04/22 07:31 02/04/22 07:31 02/04/22 07:31 02/04/22 07:35 Oxygen Delivery Method Room Air Weight: 56.4 kg Body Mass Index (BMI) 20.0 Intake & Output: Intake and Output for Last 24 Hours 02/02/22 02/03/22 02/04/22 23:59 23:59 23:59 Intake Total 500 / 500 Balance 500 / 500 Lab / Micro Data Result Diagrams: 02/04/22 05:06 02/04/22 05:06 Labs: Laboratory Results - last 24 hr 02/03/22 19:40: WBC 9.6, RBC 2.76 L, Hgb 10.3 L, Hct 31.1 L, MCV 112.7 H, MCH 37.3 H, MCHC 33.1, RDW Std Deviation 61.4 H, RDW Coeff of Teressa 15.2 H, Plt Count 244, MPV 9.9, Immature Gran % (Auto) 0.500, Neut % (Auto) 75.4 H, Lymph % (Auto) 13.6 L, [place] % (Auto) 9.4, Eos % (Auto) 0.7, Baso % (Auto) 0.4, Absolute Neuts (auto) 7.2, Absolute Lymphs (auto) 1.30, Nucleated RBC % 0 02/03/22 19:40: Sodium 136, Potassium 3.0 L, Chloride 94 L, Carbon Dioxide 31.0, Anion Gap 11, BUN 2 L, Creatinine 0.65, Estim Creat Clear Calc 95.27, Est GFR (MDRD) Af Amer 125, Est GFR (MDRD) Non-Af 104, BUN/Creatinine Ratio 3.1 L, Glucose 105, Calcium 8.5 02/03/22 19:40: Total Bilirubin 7.40 H, Direct Bilirubin 6.54 H, AST 55 H, ALT 21, Alkaline Phosphatase 267 H, Total Protein 6.2 L, Albumin 2.1 L, Globulin 4.1, Lipase 82 02/03/22 20:28: PT 16.6 H, INR 1.4, APTT 33.3 02/03/22 21:12: Urine Color Olga, Urine Clarity Clear, Urine pH 6.5, Ur Specific [place] 1.010, Urine Protein 100 H, Urine Glucose (UA) Normal, Urine Ketones 15 H, Urine Occult Blood 10 H, Urine Nitrite Positive H, Urine Bilirubin 6 H, Urine Urobilinogen 12 H, Ur Leukocyte Esterase 25 H, Urine RBC 0-5 SEEN, Urine WBC 0-5 SEEN, Ur Squamous Epith Cells 10-25 SEEN, Urine Bacteria 2+, Hyaline Casts 5-10 SEEN, Urine Mucus 1+ 02/03/22 23:59: POC Glucose 102 02/04/22 05:06: WBC 7.5, RBC 2.31 L, Hgb 8.7 L, Hct 26.4 L, MCV 114.3 H, MCH 37.7 H, MCHC 33.0, RDW Std Deviation 62.4 H, RDW Coeff of Teressa 15.4 H, Plt Count 183, MPV 10.2, Immature Gran % (Auto) 0.500, Neut % (Auto) 68.0, Lymph % (Auto) 19.1, [place] % (Auto) 10.6 H, Eos % (Auto) 1.3, Baso % (Auto) 0.5, Absolute Neuts (auto) 5.1, Absolute Lymphs (auto) 1.44, Nucleated RBC % 0 02/04/22 05:06: Sodium 137, Potassium 3.1 L, Chloride 97 L, Carbon Dioxide 31.0, Anion Gap 9, BUN 3 L, Creatinine 0.49 L, Estim Creat Clear Calc 126.37, Est GFR (MDRD) Af Amer 173, Est GFR (MDRD) Non-Af 143, BUN/Creatinine Ratio 6.1 L, Glucose 98, Calcium 7.7 L, Total Bilirubin 7.30 H, AST 51 H, ALT 18, Alkaline Phosphatase 227 H, Total Protein 5.2 L, Albumin 1.8 L, Globulin 3.4, Albumin/Globulin Ratio 0.5 L 02/04/22 05:18: POC Glucose 108 H Physical Exam Narrative GENERAL: cooperative HEENT: Atraumatic; EYES; Anicteric, Normal Conjunctiva NECK; supple, normal thyroid, RESPIRATORY: Diminished to auscultation CARDIOVASCULAR: Regular S1 S2, GI: Abdomen distended, : No Renal angle tenderness; EXTREMITIES: No edema, no clubbing, MUSCULOSKELETAL: no muscle wasting NEURO: Awake; no lateralizing signs. SKIN: No Rash PSYCH; Flat affect Assessment & Plan Assessment/Plan (1) Alcoholic cirrhosis of liver with ascites: PLAN: Plan Patient is a 46-year-old lady with history of alcoholic liver disease admitted with abdominal pain and distention 1. Ascites secondary to cirrhosis ? Patient has been admitted to regular nursing floor. Plan is for patient to undergo diagnostic and therapeutic paracentesis. Consult was placed to GI on admission 2. 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 Presented with ascites management as described above 3. Diabetes mellitus type II -patient's oral hypoglycemics held. Placed on long acting insulin, Accu-Cheks a.c. and at bedtime and covered with sliding scale insulin 4. Depression ? Patient is on duloxetine 5. Anemia - Secondary to chronic disorder monitoring H&H and transfuse if patient becomes symptomatic or hemoglobin falls below 7 6. Hypokalemia ? Corrected per protocol 7. DVT prophylaxis ? Bilateral SCDs Charges/Coding Visit Charges Inpatient E&M: 83744 Subs Hosp L2
--- NOTE | 2022-02-04 10:40 | CASEMGMT ---
RN LISS Face to Face with patient for initial transition planning/care coordination assessment. RN CM introduced self and role at [facility]. Patient lying in bed, alert and oriented. Patient willing to participate in assessment and is able to answer all questions appropriately. Care providers, pharmacy, and demographics verified. Patient wishes to discharge home, denies need for home health at this time. Patient states she has no further needs or concerns at this time. CM to follow for discharge planning needs that may arise. PCP: Susanna Specialists: Liver transplant [facility] Preferred Pharmacy: [facility] Insurance: [employer] Prescription Benefit: yes Living Will/HPOA: none LNOK: mother, 2 children 17yo, 16yo Living Arrangements: Patient lives with children, who are currently staying with their father, in a single story home. 2 steps and railing to enter the home. Patient states she is independent at home. Transportation: self, mother DME/HHC: Patient denies DME in the home. No previous HHC or SNF. Patient states she was to go to outpatient therapy for PT but never made appt. Patient would like to be setup for outpatient PT at discharge. Patient request to schedule her own appt. CM to assist with obtaining script for outpatient PT and provide to patient. Disposition Plan: Patient to discharge home with outpatient therapy, family support, and follow-up plans. Shruti FELICIANO, RN, CM
[2022-02-04 11:45] LABS: Bedside Glucose 128 mg/dL (74-106)
[2022-02-04] MEDS: Lidocaine 2% (10 ml mdv) 10 ML Vial INFILT (14:00)
--- NOTE | 2022-02-04 14:05 | FLU_PTH ---
PATIENT: DAVID TATE LOC: MS3 U#:[id number] AGE/SX: 46/F ROOM: OK316 RE02/03/[address]: Dr. Damien Valdovinos MD : 1975 BED: 1 DIS: 02/09/2022 SPEC #: [id number] RECD: 02/04/22 14:27 STATUS: MILDRED DOUG #: [id number] REECE: 02/04/22 14:[address]: Sai Aparicio DEPT: CYTOLOGY RECD BY: Heaven Galindo ENTERED: 02/05/22 08:05 SP TYPE: Fluid OTHR DR: MD Dr. Cielo Greene MD Tissues: Abdominal cavity, NOS Procedures: Special Stain Group II Surgery Specimen Level IV Cytospin Fluid HEADER OPERATION: Ultrasound-guided paracentesis PRE-OP DIAGNOSIS: Ascites TISSUE SUBMITTED: Paracentesis fluid for cytology DIAGNOSIS CYTOLOGY Paracentesis fluid for cytology (cytospin and cell block): Negative for malignant cells. See comment. BRODIE:robby 02/08/2022 COMMENT Clinical correlation and appropriate follow up are necessary. CYTOLOGY STUDY Slides are reviewed. CYTOLOGY GROSS Received is 90 ml of yellow cloudy fluid labeled with the patient's name and and designated per the requisition as paracentesis. Submitted for cytology preparation including cell block. / robby 02/05/2022 TC:5 CPT: 16501, 53254
[2022-02-04 14:53] LABS: Body Fluid Mononuclear WBC # 0.078 10^3/uL; Body Fluid Mononuclear WBC % 67.3 %; Body Fluid Polynuclear WBC # 0.038 10^3/uL; Body Fluid Polynuclear WBC % 32.7 %; Body Fluid Total Cells Counted 0.148 10^3/ul; White Blood Count/Body Fluid 0.116 10^3/uL
[2022-02-04 14:57] LABS: Appearance/Body Fluid SL CLDY; Auto B Fluid Analyzer BKGD Ct COUNTS W/IN LIMITS (W/IN LIMITS); Color/Body Fluid YELLOW; Source- Body Fluid OTHER
[2022-02-04 15:07] LABS: Glucose, Body Fluid 116 mg/dL (40-70); LDH,Body Fluid 51 Units/l (Not Establ.); Protein, Body Fluid 1.6 g/dL (Not Establ.)
[2022-02-04 15:34] LABS: Lymphocytes 48 %; Monocytes 20 %; Neutrophil (Segs) 32 %
[2022-02-04 15:35] LABS: Body Fluid QC Type(s) BF1Q; Red Cell Count/Body Fluid 9 /mm3
[2022-02-04 16:31] LABS: Bedside Glucose 110 mg/dL (74-106)
[2022-02-04] MEDS: Ensure Plus High Protein 120 ML LIQUID PO (17:51)
--- NOTE | 2022-02-04 18:16 | CON.PCM_ITS ---
Assessment & Plan Assessment/Plan (1) Alcoholic cirrhosis of liver with ascites: PLAN: She currently has decompensated alcoholic cirrhosis due to ascites. Her large-volume paracentesis did not show any signs of bacterial peritonitis. She does need to have cytology drawn from the fluid to make sure she does not have any signs of cancer. Her last alpha-fetoprotein is stable for screening for hepatocellular carcinoma. We will have to redraw that. She will need to be placed Lasix 20 mg twice daily and Aldactone 25 mg twice daily. She also will need to stay on a 1500 mL fluid restriction (2) Hepatic encephalopathy: PLAN: . Need we will need to check an ammonia level and she will need to be on Xifaxan 5 50 mg twice daily and lactulose twice a day. HPI Consult Data Date of Consult: 02/04/22 HPI Narrative Reason for Consultation: cirrhosis HPI Narrative: ZARA TATE, is a 46 F who presents to the ED with worsening abdominal di stention. Well-known to the GI service due to history cirrhosis with a meld of 10, child Montes class B complicated by encephalopathy. At that visit we discussed positive H pylori result on biopsy from EGD done 08/13/21. We treated H pylori with Pepto bismol, levofloxacin, pantoprazole and metronidazole. I spoke to her PCP Dr Mullins yesterday; pt had been unclear about treatment for H. pylori infection.? Today Zara states she finished all the meds for treating H. pylori.? She says the only new medication she has been prescribed that she is not taking is ursodiol, since she was not sure what it was for. Liver, core biopsy: Consistent with cirrhosis with extensive macro-and microvesicular steatosis. No alcohol since 2019. We have referred her to [facility] liver transplant group for, age; we have received notification from the liver transplant nurse coordinator that they have been in contact with her; Zara reports she has orders to get blood work done as the initial step, then the consult appointment will be made. She reports she has not been feeling well; tired, no energy. She has been more forgetful, this really bothers her son.? We did not use lactulose before because of her significant diarrhea, however she would like to try lactulose now.? She denies any bleeding.? She denies pruritus.? No jaundice.? She has had some falls recently, she attributes that to being very weak, she would like to do physical therapy. She presented via the ED on 02/03/2022 with a complaint of abdominal pain and swelling. She complained of abdominal pain and swelling over the last few days prior to admission, with associated nausea and vomiting. She has never had a paracentesis. She was sent to the ED for the possible paracentesis. She underwent large-volume paracentesis today and feels a lot better PFSH Medical History Alcoholism Anxiety Asthma Breast implant status Chronic diarrhea Cirrhosis COVID-19 Diabetes Diabetes Fatty liver Gastritis and duodenitis H. pylori infection HLD (hyperlipidemia) HTN (hypertension) Hypertension Migraines Nicotine abuse Pancreatitis Post-menopausal Recurrent acute pancreatitis Smoker Home Medications gabapentin 300 mg capsule 300 mg PO BID pain 08/11/21 [History Last Taken 12/10/21] doxepin 75 mg capsule 150 mg PO QHS mood 12/10/21 [History Last Taken 12/09/21] duloxetine 60 mg capsule,delayed release 60 mg PO DAILY depression 12/10/21 [Hi story Last Taken 12/09/21] losartan 50 mg tablet 50 mg PO DAILY BP 12/10/21 [History Last Taken 12/10/21] metformin 500 mg tablet 500 mg PO BID Check with primary doctor 12/10/21 [History Last Taken 12/10/21] promethazine 25 mg tablet 25 mg PO Q6H PRN Nausea 12/10/21 [History Last Taken 12/08/21] ursodiol 300 mg capsule 300 mg PO BID Check with primary doctor 12/10/21 [History Last Taken 12/10/21] vitamin E 268 mg (400 unit) capsule 536 mg PO DAILY SUPPLEMENT 12/10/21 [History Last Taken 12/09/21] alprazolam 0.25 mg tablet 0.25 - 0.5 mg PO BID PRN Anxiety 02/03/22 [History Last Taken Unknown] Allergy/AdvReac Type Severity Reaction Status Date / Time azithromycin [From Zithromax] AdvReac Diarrhea Verified 02/03/22 18:33 codeine AdvReac Nausea Verified 02/03/22 18:33 promethazine [From Phenergan] AdvReac Vomiting Verified 02/03/22 18:33 Family History Father Cancer Lung CA with tobacco use history. Heart disease Mother Cancer Hx breast CA. Diabetes Hypertension Surgical History H/O breast augmentation H/O: knee surgery Previous section S/P tonsillectomy and adenoidectomy Social History housing: other details: Lives at home, her 15, 16 year old children live with her. 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 substance use type: does not use ROS Constitutional Constitutional: Reports fatigue, malaise and weakness; Denies anorexia, chills or fever(s) Eyes Eyes: Denies change in vision ENT HEENT: Denies abnormal hearing, epistaxis, headache(s) or nasal congestion Cardiovascular Cardiovascular: Denies chest pain, dyspnea on exertion, edema, lightheadedness, orthopnea, palpitations, paroxysmal nocturnal dyspnea or rapid heart rate Respiratory/Chest Respiratory/Chest: Denies cough, dyspnea, productive cough, shortness of breath at rest or shortness of breath with exertion Gastrointestinal Gastrointestinal: Reports abdominal pain and other Details: abdominal distension ; Denies constipation, diarrhea, dyspepsia, hematemesis, hematochezia, loose stools, nausea or vomiting Genitourinary Genitourinary: Denies burning urination, dysuria or urinary hesitancy Musculoskeletal Musculoskeletal: Denies arthralgias, joint stiffness or joint swelling Neurologic Neurologic: Denies confusion, dizziness, focal weakness, headache(s), numbness, seizures or syncope Psychiatric Psychiatric: Denies anxiety or depression Endocrine Endocrinology: Reports change in body appearance Hematologic/Lymphatic Hematologic/Lymphatic: Denies anemia Physical Exam Narrative GENERAL: cooperative HEENT: Atraumatic; EYES; Anicteric, Normal Conjunctiva NECK; supple, normal thyroid, RESPIRATORY: Diminished to auscultation CARDIOVASCULAR: Regular S1 S2, GI: Abdomen distended, : No Renal angle tenderness; EXTREMITIES: No edema, no clubbing, MUSCULOSKELETAL: no muscle wasting NEURO: Awake; no lateralizing signs. SKIN: No Rash PSYCH; Flat affect Medical Records Data Medical Nutrition Assessment Dietitian: Malnutrition Criteria Met Start: 02/04/22 14:26 Freq: Status: Active Protocol: Document 02/04/22 14:43 LO (Rec: 02/04/22 14:43 LO [id number]) Nutrition Malnutrition Evidence of Malnutrition Exists Yes Malnutrition (moderate): Chronic Evidenced By Suboptimal Energy Intake ( Severe),Physical Changes ( Moderate) Clinical Problem Chronic Disease or Condition Related Malnutrition Etiology (moderate) related to ascites, alcoholic liver disease, nausea, and emesis Signs/Symptoms as evidenced by estimated PO intake <75% of estimated needs for >1 month and fat and muscle wasting to orbital and temporal regions Status Active Problem Recommendation Dietitian Recommendations/Changes Continue [address] will order Ensure Plus High Protein 120mL 4x daily with medpass. Lab / Micro Data Result Diagrams: 02/04/22 05:06 02/04/22 05:06 Labs: Laboratory Results - last 24 hr 02/03/22 19:40: WBC 9.6, RBC 2.76 L, Hgb 10.3 L, Hct 31.1 L, MCV 112.7 H, MCH 37.3 H, MCHC 33.1, RDW Std Deviation 61.4 H, RDW Coeff of Teressa 15.2 H, Plt Count 244, MPV 9.9, Immature Gran % (Auto) 0.500, Neut % (Auto) 75.4 H, Lymph % (Auto) 13.6 L, [place] % (Auto) 9.4, Eos % (Auto) 0.7, Baso % (Auto) 0.4, Absolute Neuts (auto) 7.2, Absolute Lymphs (auto) 1.30, Nucleated RBC % 0 02/03/22 19:40: Sodium 136, Potassium 3.0 L, Chloride 94 L, Carbon Dioxide 31.0, Anion Gap 11, BUN 2 L, Creatinine 0.65, Estim Creat Clear Calc 95.27, Est GFR (MDRD) Af Amer 125, Est GFR (MDRD) Non-Af 104, BUN/Creatinine Ratio 3.1 L, Glucose 105, Calcium 8.5 02/03/22 19:40: Total Bilirubin 7.40 H, Direct Bilirubin 6.54 H, AST 55 H, ALT 21, Alkaline Phosphatase 267 H, Total Protein 6.2 L, Albumin 2.1 L, Globulin 4.1, Lipase 82 02/03/22 20:28: PT 16.6 H, INR 1.4, APTT 33.3 02/03/22 21:12: Urine Color Olga, Urine Clarity Clear, Urine pH 6.5, Ur Specific [place] 1.010, Urine Protein 100 H, Urine Glucose (UA) Normal, Urine Ketones 15 H, Urine Occult Blood 10 H, Urine Nitrite Positive H, Urine Bilirubin 6 H, Urine Urobilinogen 12 H, Ur Leukocyte Esterase 25 H, Urine RBC 0-5 SEEN, Urine WBC 0-5 SEEN, Ur Squamous Epith Cells 10-25 SEEN, Urine Bacteria 2+, Hyaline Casts 5-10 SEEN, Urine Mucus 1+ 02/03/22 23:59: POC Glucose 102 02/04/22 05:06: WBC 7.5, RBC 2.31 L, Hgb 8.7 L, Hct 26.4 L, MCV 114.3 H, MCH 37.7 H, MCHC 33.0, RDW Std Deviation 62.4 H, RDW Coeff of Teressa 15.4 H, Plt Count 183, MPV 10.2, Immature Gran % (Auto) 0.500, Neut % (Auto) 68.0, Lymph % (Auto) 19.1, [place] % (Auto) 10.6 H, Eos % (Auto) 1.3, Baso % (Auto) 0.5, Absolute Neuts (auto) 5.1, Absolute Lymphs (auto) 1.44, Nucleated RBC % 0 02/04/22 05:06: Sodium 137, Potassium 3.1 L, Chloride 97 L, Carbon Dioxide 31.0, Anion Gap 9, BUN 3 L, Creatinine 0.49 L, Estim Creat Clear Calc 126.37, Est GFR (MDRD) Af Amer 173, Est GFR (MDRD) Non-Af 143, BUN/Creatinine Ratio 6.1 L, Glucose 98, Calcium 7.7 L, Total Bilirubin 7.30 H, AST 51 H, ALT 18, Alkaline Phosphatase 227 H, Total Protein 5.2 L, Albumin 1.8 L, Globulin 3.4, Albumin/Globulin Ratio 0.5 L 02/04/22 05:18: POC Glucose 108 H 02/04/22 11:25: POC Glucose 128 H 02/04/22 14:05: Fluid Glucose 116 H, Fluid Total Protein 1.6, Fluid LDH 51 02/04/22 14:05: Fluid Source OTHER, Fluid Color YELLOW, Fluid Appearance SL CLDY, Fluid WBC 0.116, Fluid RBC 9, Fluid Tot Cell Count 0.148 H, Fld Polynuclear WBCs # 0.038, Fld Polynuclear WBCs % 32.7, Fluid Mononuclear WBCs 0.078, Fld Mononuclear WBCs % 67.3, Fluid Neutrophils 32, Fluid Lymphocytes 48, Fluid Monocytes 20, Fl Pathologist Comment May follow, Fluid Comment 2 SEE COMMENT 02/04/22 16:08: POC Glucose 110 H Micro: Microbiology 02/03/22 21:12 Urine, Clean Catch Urine Culture - Preliminary GNR lactose lead atg developer Radiology Impression Paracentesis Ultrasound 02/04/22 07:00 IMPRESSION: Ultrasound guided paracentesis. Electronically Signed: Denzel Quijano MD at 14:57 EDT , Charges/Coding Visit Charges Inpatient E&M: 44804 Init Hosp L3
[2022-02-04] MEDS: Scopolamine 1mg/72hr Patch 1 PATCH TD (20:31)
[2022-02-04] MEDS: Albumin Human 25% (100 mL) 25 GM/100 ML BAG IV (20:32)
[2022-02-04 22:05] LABS: Bedside Glucose 95 mg/dL (74-106)
[2022-02-04] MEDS: DOXEPIN HCL 50 MG CAPSULE 150 MG PO (22:15)
[2022-02-04] MEDS: Metoclopramide 10 MG/2 ML Vial IV (23:17)
[2022-02-05 04:33] VITALS: BP 116/70; PULSE 103; RESP 18; TEMP 37.1; O2SAT 93
[2022-02-05] MEDS: Metoclopramide 10 MG/2 ML Vial IV ×3 (04:38→18:09)
[2022-02-05] MEDS: 0.9% Saline Lock 10 ML Syringe IV ×2 (04:38→20:33)
[2022-02-05 06:25] LABS: Bedside Glucose 102 mg/dL (74-106)
--- NOTE | 2022-02-05 07:51 | PN.HOSP_ITS ---
Subjective Subjective Patient underwent ultrasound guided paracentesis on 02/04/2022. A total of 1150 ml of ? annalisa-colored fluid? were removed from the peritoneal cavity.? A 100 mL sample was sent to the laboratory for analysis.? Objective Data Objective Data Vital Signs: Vital Signs Temp Pulse Resp BP Pulse Ox O2 Del Method 98.8 F 103 H 18 116/70 93 Room Air 02/05/22 04:33 02/05/22 04:33 02/05/22 04:33 02/05/22 04:33 02/05/22 04:33 02/05/22 04:33 Oxygen Delivery Method [3] Room Air Oxygen Delivery Method [2] Room Air Oxygen Delivery Method [1 ( Room Air Initial Baseline)] Oxygen Delivery Method Room Air Weight: 56.4 kg Body Mass Index (BMI) 20.0 Intake & Output: Intake and Output for Last 24 Hours 02/03/22 02/04/22 02/05/22 23:59 23:59 23:59 Intake Total 500 / 500 600 / 600 240 / 240 Output Total 1750 / 1750 Balance 500 / 500 -1150 / -1150 240 / 240 Medical Nutrition Assessment Dietitian: Malnutrition Criteria Met Start: 02/04/22 14:26 Freq: Status: Active Protocol: Document 02/04/22 14:43 LO (Rec: 02/04/22 14:43 [id number]) Nutrition Malnutrition Evidence of Malnutrition Exists Yes Malnutrition (moderate): Chronic Evidenced By Suboptimal Energy Intake ( Severe),Physical Changes ( Moderate) Clinical Problem Chronic Disease or Condition Related Malnutrition Etiology (moderate) related to ascites, alcoholic liver disease, nausea, and emesis Signs/Symptoms as evidenced by estimated PO intake <75% of estimated needs for >1 month and fat and muscle wasting to orbital and temporal regions Status Active Problem Recommendation Dietitian Recommendations/Changes Continue [address] will order Ensure Plus High Protein 120mL 4x daily with medpass. Lab / Micro Data Result Diagrams: 02/04/22 05:06 02/04/22 05:06 Labs: Laboratory Results - last 24 hr 02/04/22 11:25: POC Glucose 128 H 02/04/22 14:05: Fluid Glucose 116 H, Fluid Total Protein 1.6, Fluid LDH 51 02/04/22 14:05: Fluid Source OTHER, Fluid Color YELLOW, Fluid Appearance SL CLDY, Fluid WBC 0.116, Fluid RBC 9, Fluid Tot Cell Count 0.148 H, Fld Polynuclear WBCs # 0.038, Fld Polynuclear WBCs % 32.7, Fluid Mononuclear WBCs 0.078, Fld Mononuclear WBCs % 67.3, Fluid Neutrophils 32, Fluid Lymphocytes 48, Fluid Monocytes 20, Fl Pathologist Comment May follow, Fluid Comment 2 SEE COMMENT 02/04/22 16:08: POC Glucose 110 H 02/04/22 20:38: POC Glucose 95 02/05/22 04:38: POC Glucose 102 Micro: Microbiology 02/03/22 21:12 Urine, Clean Catch Urine Culture - Preliminary GNR lactose manager research and development Radiography Diagnostic Testing: Radiology Impression Paracentesis Ultrasound 02/04/22 07:00 IMPRESSION: Ultrasound guided paracentesis. Electronically Signed: Denzel Quijano MD at 14:57 EDT Reading Location ID and State: [facility] / [place] , Service support , Physical Exam Narrative GENERAL: cooperative HEENT: Atraumatic; EYES; Anicteric, Normal Conjunctiva NECK; supple, normal thyroid, RESPIRATORY: Diminished to auscultation CARDIOVASCULAR: Regular S1 S2, GI: Abdomen distended, : No Renal angle tenderness; EXTREMITIES: No edema, no clubbing, MUSCULOSKELETAL: no muscle wasting NEURO: Awake; no lateralizing signs. SKIN: No Rash PSYCH; Flat affect Assessment & Plan Assessment/Plan (1) Alcoholic cirrhosis of liver with ascites: PLAN: Plan Patient is a 46-year-old lady with history of alcoholic liver disease admitted with abdominal pain and distention 1. Ascites secondary to cirrhosis ? Patient has been admitted to regular nursing floor. Plan is for patient to undergo diagnostic and therapeutic paracentesis. Consult was placed to GI on admission -02/05/2022; Patient underwent ultrasound guided paracentesis on 02/04/2022. A total of 1150 ml of ? annalisa-colored fluid? were removed from the peritoneal cavity.? A 100 mL sample was sent to the laboratory for analysis.. Patient was also seen in consultation by Dr. Munson with GI's recommendations reviewed 2. 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 Presented with ascites management as described above 3. Diabetes mellitus type II -patient's oral hypoglycemics held. Placed on long acting insulin, Accu-Cheks a.c. and at bedtime and covered with sliding scale insulin 4. Depression ? Patient is on duloxetine 5. Anemia - Secondary to chronic disorder monitoring H&H and transfuse if patient becomes symptomatic or hemoglobin falls below 7 6. Hypokalemia ? Corrected per protocol 7. DVT prophylaxis ? Bilateral SCDs Charges/Coding Visit Charges Inpatient E&M: 68132 Subs Hosp L2
[2022-02-05 09:00] VITALS: BP 101/55; PULSE 90; RESP 18; TEMP 36.7; O2SAT 97
[2022-02-05] MEDS: DULoxetine Hcl 60 MG Capsule PO (09:31)
[2022-02-05] MEDS: Gabapentin 300 MG Capsule PO ×2 (09:31→18:13)
[2022-02-05] MEDS: Ursodiol 250 MG Tablet PO ×2 (09:31→18:09)
[2022-02-05] MEDS: Vitamin E 400 UNITS Capsule 800 UNITS PO (09:33)
--- NOTE | 2022-02-05 09:56 | PCM.DC.SUM ---
Providers Date of Admission: 02/03/22 Date of Discharge: 02/05/22 Primary Care Physician: Dr. Valerie Mullins MD Consultations 02/03/22 23:23 Consult: Gastroenterology Routine Consulting Provider: [facility] Reason for Consult: alcoholic liver disease with ascites EMERGENT Consult: No MD Notified: Yes Date Notified: 02/03/22 Time Notified: 22:57 Method of Notification: Text Reason For Visit: ASCITES DUE TO ALCOHOLIC LIVER DISEASE Diagnosis Discharge Diagnosis (1) Alcoholic cirrhosis of liver with ascites: Status: Acute Code(s): K70.31 - Alcoholic cirrhosis of liver with ascites Plan Patient is a 46-year-old lady with history of alcoholic liver disease admitted with abdominal pain and distention 1. Ascites secondary to cirrhosis ? Patient has been admitted to regular nursing floor. Plan is for patient to undergo diagnostic and therapeutic paracentesis. Consult was placed to GI on admission -02/05/2022; Patient underwent ultrasound guided paracentesis on 02/04/2022. A total of 1150 ml of ? annalisa-colored fluid? were removed from the peritoneal cavity.? A 100 mL sample was sent to the laboratory for analysis.. Patient was also seen in consultation by Dr. Munson with GI's recommendations reviewed 2. 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 Presented with ascites management as described above 3. Diabetes mellitus type II -patient's oral hypoglycemics held. Placed on long acting insulin, Accu-Cheks a.c. and at bedtime and covered with sliding scale insulin 4. Depression ? Patient is on duloxetine 5. Anemia - Secondary to chronic disorder monitoring H&H and transfuse if patient becomes symptomatic or hemoglobin falls below 7 6. Hypokalemia ? Corrected per protocol 7. DVT prophylaxis ? Bilateral SCDs Medications at Discharge Home Medications gabapentin 300 mg capsule 300 mg PO BID pain 08/11/21 doxepin 75 mg capsule 150 mg PO QHS mood 12/10/21 duloxetine 60 mg capsule,delayed release 60 mg PO DAILY depression 12/10/21 losartan 50 mg tablet 50 mg PO DAILY BP 12/10/21 metformin 500 mg tablet 500 mg PO BID Check with primary doctor 12/10/21 promethazine 25 mg tablet 25 mg PO Q6H PRN Nausea 12/10/21 ursodiol 300 mg capsule 300 mg PO BID Check with primary doctor 12/10/21 vitamin E 268 mg (400 unit) capsule 536 mg PO DAILY SUPPLEMENT 12/10/21 alprazolam 0.25 mg tablet 0.25 - 0.5 mg PO BID PRN Anxiety 02/03/22 furosemide 20 mg tablet (Lasix) 20 mg PO DAILY #60 tabs 02/05/22 lactulose 20 gram/30 mL oral solution 20 g (30 mL) PO BID #3,000 mL 02/05/22 rifaximin 550 mg tablet (Xifaxan) 550 mg PO TID #120 tabs 02/05/22 spironolactone 25 mg tablet (Aldactone) 25 mg PO BID #120 tabs 02/05/22 Hospital Course Summary of Care Provided Minutes Spent on Discharge: 35 Physical Exam Narrative GENERAL: cooperative HEENT: Atraumatic; EYES; Anicteric, Normal Conjunctiva NECK; supple, normal thyroid, RESPIRATORY: Diminished to auscultation CARDIOVASCULAR: Regular S1 S2, GI: Abdomen distended, : No Renal angle tenderness; EXTREMITIES: No edema, no clubbing, MUSCULOSKELETAL: no muscle wasting NEURO: Awake; no lateralizing signs. SKIN: No Rash PSYCH; Flat affect Medical Records Data Medical Nutrition Assessment Dietitian: Malnutrition Criteria Met Start: 02/04/22 14:26 Freq: Status: Active Protocol: Document 02/04/22 14:43 LO (Rec: 02/04/22 14:43 [id number]) Nutrition Malnutrition Evidence of Malnutrition Exists Yes Malnutrition (moderate): Chronic Evidenced By Suboptimal Energy Intake ( Severe),Physical Changes ( Moderate) Clinical Problem Chronic Disease or Condition Related Malnutrition Etiology (moderate) related to ascites, alcoholic liver disease, nausea, and emesis Signs/Symptoms as evidenced by estimated PO intake <75% of estimated needs for >1 month and fat and muscle wasting to orbital and temporal regions Status Active Problem Recommendation Dietitian Recommendations/Changes Continue [address] will order Ensure Plus High Protein 120mL 4x daily with medpass. Weight / BMI Weight Weight: 56.4 kg Body Mass Index (BMI) 20.0 ABG / Lab / Microbiology Data Result Diagrams: 02/04/22 05:06 02/04/22 05:06 Laboratory: Laboratory Results - last 24 hr 02/04/22 11:25: POC Glucose 128 H 02/04/22 14:05: Fluid Glucose 116 H, Fluid Total Protein 1.6, Fluid LDH 51 02/04/22 14:05: Fluid Source OTHER, Fluid Color YELLOW, Fluid Appearance SL CLDY, Fluid WBC 0.116, Fluid RBC 9, Fluid Tot Cell Count 0.148 H, Fld Polynuclear WBCs # 0.038, Fld Polynuclear WBCs % 32.7, Fluid Mononuclear WBCs 0.078, Fld Mononuclear WBCs % 67.3, Fluid Neutrophils 32, Fluid Lymphocytes 48, Fluid Monocytes 20, Fl Pathologist Comment May follow, Fluid Comment 2 SEE COMMENT 02/04/22 16:08: POC Glucose 110 H 02/04/22 20:38: POC Glucose 95 02/05/22 04:38: POC Glucose 102 Microbiology: Microbiology 02/03/22 21:12 Urine, Clean Catch Urine Culture - Final Escherichia coli Radiography Diagnostic Testing: Radiology Impression Paracentesis Ultrasound 02/04/22 07:00 IMPRESSION: Ultrasound guided paracentesis. Electronically Signed: Denzel Quijano MD at 14:57 EDT Reading Location ID and State: [facility] / [place] , Service support , D/C Instructions Discharge Diet: 6 Cup Fluid Restriction Discharge Activity: Return to Normal Activity Call your doctor if you observe: Fever of 101 or Higher, Shortness of breath, Fainting spells and Chest pain Meaningful Use Info Meaningful Use Diagnoses (Choose all that apply): None applicable Discharge Plan Admission Admit Date/Time: 02/03/22 22:54 Attending Provider: Sai Aparicio Primary Care Provider: Valerie Mullins Consulting Providers: Cielo Roque Discharge Orders/Prescriptions Prescriptions: New spironolactone [Aldactone] 25 mg tablet 25 mg PO BID Qty: 120 0RF furosemide [Lasix] 20 mg tablet 20 mg PO DAILY Qty: 60 0RF Xifaxan 550 mg tablet 550 mg PO TID Qty: 120 0RF lactulose 20 gram/30 mL solution 20 g PO BID Qty: 3000 0RF Continued gabapentin 300 mg capsule 300 mg PO BID Label Comments: take 1 capsule by mouth three times a day as directed losartan 50 mg tablet 50 mg PO DAILY metformin 500 mg tablet 500 mg PO BID doxepin 75 mg capsule 150 mg PO QHS Label Comments: take 2 capsules by mouth at bedtime promethazine 25 mg tablet 25 mg PO Q6H PRN (Reason: Nausea) Label Comments: take 1 tablet by mouth every 6 hours if needed for nausea ursodiol 300 mg capsule 300 mg PO BID Label Comments: take 1 capsule by mouth twice a day vitamin E 268 mg (400 unit) Capsule 536 mg PO DAILY duloxetine 60 mg capsule,delayed release(DR/EC) 60 mg PO DAILY Label Comments: take 1 capsule by mouth once daily alprazolam 0.25 mg tablet 0.25 - 0.5 mg PO BID PRN (Reason: Anxiety) Label Comments: take 1-2 tablets by mouth twice a day if needed for anxiety for up to 90 DAYS Referrals / Follow Up: Valerie Mullins MD [Primary Care Provider] - Within 1 Week Dougie Munson DO [Med Staff - Active Staff] - Within 2 Weeks Disposition Disposition (needs filled in before D/C Order can be placed): Home, Self Care Charges/Coding Visit Charges Inpatient E&M: 00889 Disch Hosp
--- NOTE | 2022-02-05 10:31 | CASEMGMT ---
Social Work Pt admitted with dx of alcoholic liver disease. SW met with pt and introduced self and role of SW. SW spoke with pt regarding current health issues, liver transplant process and alcohol use. Pt states that she had been sober since 2019 and relapsed about 3 months ago. Pt has since been involved with [facility] and has gone through the outpt program and followup program and attends AA meetings a few times a week. Pt feels this has helped her regain sobriety. SW spoke with pt regarding mental health and pt declines any concerns at this time but does state she has seen a mental health counselor at [facility] in the past and can call her if needed. SW explored support systems with pt and pt confirms she has a mother and sister who are very supportive of her with recovery. Pt is connected to community resources and social supports and denies any further needs at this time. DIANA Akins
[2022-02-05 11:45] LABS: Bedside Glucose 136 mg/dL (74-106)
[2022-02-05 11:58] LABS: Pathologist Comment/Body Fluid Reviewed
[2022-02-05] MEDS: oxyCODONE 5 MG Tablet PO ×2 (12:35→20:55)
--- NOTE | 2022-02-05 12:49 | CASEMGMT ---
Addendum entered by Mercy Gordon 02/05/22 13:25: ROGER LEIJA in to pt room, provided pt with a signed script for PT and OT. Pt would like to take to facility of her choice and does not want ROGER LEIJA to set up. Pt is aware of the prior auth for her xifaxin. She will check with the pharmacy Tuesday and will follow up with if unable to obtain. Denies further needs. Original Note: Received tc from [facility] stating xifaxin needs PA. TC to and PA started, serrano for cover my meds is [id number]. Request submitted.
--- NOTE | 2022-02-05 14:57 | US_ITS ---
STUDY: LIMITED RIGHT UPPER QUADRANT ABDOMINAL ULTRASOUND EXAMINATION 1602 HOURS ON 02/05/2022 REASON FOR VISIT: 46-year-old female for ascites check. TECHNIQUE: Ultrasound evaluation of the right upper quadrant was performed with real-time and static santo-scale imaging. TECHNICAL QUALITY: Adequate. COMPARISON: None. FINDINGS: There are findings of prominent four-quadrant ascites with the largest pocket in the right lower quadrant adjacent to the site of the patient''s previous paracentesis. US/Abdomen Limited IMPRESSION: Prominent four-quadrant ascites with the largest pocket in the right lower quadrant. Electronically Signed: Ky Ivey MD at 18:45 EDT ,
--- NOTE | 2022-02-05 15:42 | PHA.DC.MC ---
Pharmacy Service has performed discharge medication reconciliation and counseling for this patient. 1. FUROSEMIDE 20MG PO DAILY 2. LACTULOSE 20GM PO BID 3. SPIRONOLACTONE 25MG PO BID 4. RIFAXIMIN 550MG PO TID The patient's discharge medication list was reviewed for discrepancies and discrepancies were resolved. Home Medications gabapentin 300 mg capsule 300 mg PO BID pain 08/11/21 doxepin 75 mg capsule 150 mg PO QHS mood 12/10/21 duloxetine 60 mg capsule,delayed release 60 mg PO DAILY depression 12/10/21 losartan 50 mg tablet 50 mg PO DAILY BP 12/10/21 metformin 500 mg tablet 500 mg PO BID Check with primary doctor 12/10/21 promethazine 25 mg tablet 25 mg PO Q6H PRN Nausea 12/10/21 ursodiol 300 mg capsule 300 mg PO BID Check with primary doctor 12/10/21 vitamin E 268 mg (400 unit) capsule 536 mg PO DAILY SUPPLEMENT 12/10/21 alprazolam 0.25 mg tablet 0.25 - 0.5 mg PO BID PRN Anxiety 02/03/22 furosemide 20 mg tablet (Lasix) 20 mg PO DAILY #60 tabs 02/05/22 lactulose 20 gram/30 mL oral solution 20 g (30 mL) PO BID #3,000 mL 02/05/22 rifaximin 550 mg tablet (Xifaxan) 550 mg PO TID #120 tabs 02/05/22 spironolactone 25 mg tablet (Aldactone) 25 mg PO BID #120 tabs 02/05/22 The patient was counseled on the following discharge medications and changes in medications for homegoing were reviewed. The Reason for Use, instructions for use, and potential side effects were reviewed for all new medications. The patient's questions regarding all of their medications were answered. The patient was able to verbally demonstrate an understanding of their discharge medications. Patient counseled by pharmacy grad internKan.
[2022-02-05 16:00] VITALS: PULSE 80
[2022-02-05 20:23] VITALS: BP 105/68; PULSE 96; RESP 18; TEMP 37.7; O2SAT 97
[2022-02-05] MEDS: Furosemide 20 MG/2 ML VIAL IV (20:32)
[2022-02-05] MEDS: DOXEPIN HCL 50 MG CAPSULE 150 MG PO (20:36)
[2022-02-05 21:10] LABS: Bedside Glucose 121 mg/dL (74-106)
[2022-02-06] MEDS: Metoclopramide 10 MG/2 ML Vial IV ×4 (00:27→17:54)
[2022-02-06] MEDS: 0.9% Saline Lock 10 ML Syringe IV ×3 (00:27→21:43)
[2022-02-06 03:20] VITALS: BP 134/81; PULSE 90; RESP 16; TEMP 36.9; O2SAT 93
[2022-02-06] MEDS: oxyCODONE 5 MG Tablet PO ×2 (05:13→23:15)
[2022-02-06 06:05] LABS: Bedside Glucose 121 mg/dL (74-106)
--- NOTE | 2022-02-06 08:37 | PN.HOSP_ITS ---
Subjective Subjective Patient discharged the day prior was discontinued after she developed significant abdominal pain. Repeat ultrasound did show Prominent four-quadrant ascites with the largest pocket in the right lower quadrant. Objective Data Objective Data Vital Signs: Vital Signs Temp Pulse Resp BP Pulse Ox O2 Del Method 98.4 F 90 16 134/81 H 93 Room Air 02/06/22 03:20 02/06/22 03:20 02/06/22 03:20 02/06/22 03:20 02/06/22 03:20 02/06/22 03:20 Oxygen Delivery Method [3] Room Air Oxygen Delivery Method [2] Room Air Oxygen Delivery Method [1 ( Room Air Initial Baseline)] Oxygen Delivery Method Room Air Weight: 56.4 kg Body Mass Index (BMI) 20.0 Intake & Output: Intake and Output for Last 24 Hours 02/04/22 02/05/22 02/06/22 23:59 23:59 23:59 Intake Total 600 / 600 240 / 240 Output Total 1750 / 1750 1000 / 1000 Balance -1150 / -1150 240 / 240 -1000 / -1000 Medical Nutrition Assessment Dietitian: Malnutrition Criteria Met Start: 02/04/22 14:26 Freq: Status: Active Protocol: Document 02/04/22 14:43 LO (Rec: 02/04/22 14:43 LO [id number]) Nutrition Malnutrition Evidence of Malnutrition Exists Yes Malnutrition (moderate): Chronic Evidenced By Suboptimal Energy Intake ( Severe),Physical Changes ( Moderate) Clinical Problem Chronic Disease or Condition Related Malnutrition Etiology (moderate) related to ascites, alcoholic liver disease, nausea, and emesis Signs/Symptoms as evidenced by estimated PO intake <75% of estimated needs for >1 month and fat and muscle wasting to orbital and temporal regions Status Active Problem Recommendation Dietitian Recommendations/Changes Continue [address] will order Ensure Plus High Protein 120mL 4x daily with medpass. Lab / Micro Data Result Diagrams: 02/04/22 05:06 02/04/22 05:06 Labs: Laboratory Results - last 24 hr 02/04/22 14:05: Fl Pathologist Comment Reviewed 02/05/22 11:19: POC Glucose 136 H 02/05/22 20:49: POC Glucose 121 H 02/06/22 05:19: POC Glucose 121 H Micro: Microbiology 02/03/22 21:12 Urine, Clean Catch Urine Culture - Final Escherichia coli Radiography Diagnostic Testing: Radiology Impression Abdomen Ultrasound 02/05/22 14:57 IMPRESSION: Prominent four-quadrant ascites with the largest pocket in the right lower quadrant. Electronically Signed: Ky Ivey MD at 18:45 EDT , Physical Exam Narrative GENERAL: cooperative HEENT: Atraumatic; EYES; Anicteric, Normal Conjunctiva NECK; supple, normal thyroid, RESPIRATORY: Diminished to auscultation CARDIOVASCULAR: Regular S1 S2, GI: Abdomen distended, : No Renal angle tenderness; EXTREMITIES: No edema, no clubbing, MUSCULOSKELETAL: no muscle wasting NEURO: Awake; no lateralizing signs. SKIN: No Rash PSYCH; Flat affect Assessment & Plan Assessment/Plan (1) Alcoholic cirrhosis of liver with ascites: PLAN: Plan Patient is a 46-year-old lady with history of alcoholic liver disease admitted with abdominal pain and distention 1. Ascites secondary to cirrhosis ? Patient has been admitted to regular nursing floor. Plan is for patient to undergo diagnostic and therapeutic paracentesis. Consult was placed to GI on admission -02/05/2022; Patient underwent ultrasound guided paracentesis on 02/04/2022. A total of 1150 ml of ? annalisa-colored fluid? were removed from the peritoneal cavity.? A 100 mL sample was sent to the laboratory for analysis.. Patient was also seen in consultation by Dr. Munson with GI's recommendations reviewed 02/06/2022; Patient discharged the day prior was discontinued after she developed significant abdominal pain. Repeat ultrasound did show Prominent four-quadrant ascites with the largest pocket in the right lower quadrant.. Plan is to repeat paracentesis on 02/08/2022 given significant ascit es on ultrasound 2. 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 Presented with ascites management as described above 3. Diabetes mellitus type II -patient's oral hypoglycemics held. Placed on long acting insulin, Accu-Cheks a.c. and at bedtime and covered with sliding scale insulin 4. Depression ? Patient is on duloxetine 5. Anemia - Secondary to chronic disorder monitoring H&H and transfuse if patient becomes symptomatic or hemoglobin falls below 7 6. Hypokalemia ? Corrected per protocol 7. DVT prophylaxis ? Bilateral SCDs Charges/Coding Visit Charges Inpatient E&M: 97884 Subs Hosp L2
[2022-02-06 09:20] VITALS: BP 106/66; PULSE 74; RESP 18; TEMP 36.8; O2SAT 94
[2022-02-06] MEDS: Gabapentin 300 MG Capsule PO ×2 (10:09→16:29)
[2022-02-06] MEDS: Cephalexin 500 MG Capsule PO ×3 (10:09→23:15)
[2022-02-06] MEDS: DULoxetine Hcl 60 MG Capsule PO (10:10)
[2022-02-06] MEDS: Ursodiol 250 MG Tablet PO ×2 (10:10→16:30)
[2022-02-06] MEDS: Vitamin E 400 UNITS Capsule 800 UNITS PO (10:10)
[2022-02-06] MEDS: ALPRAZolam 0.5 MG Tablet PO (11:37)
[2022-02-06] MEDS: HYDROmorphone 1 MG/ML Syringe IV (11:37)
[2022-02-06 12:00] LABS: Bedside Glucose 114 mg/dL (74-106)
[2022-02-06 15:08] VITALS: BP 107/67; PULSE 83; RESP 16; TEMP 37.1; O2SAT 94
[2022-02-06 17:25] LABS: Bedside Glucose 96 mg/dL (74-106)
[2022-02-06] MEDS: Ensure Plus High Protein 120 ML LIQUID PO (17:51)
[2022-02-06 21:17] VITALS: BP 119/71; PULSE 94; RESP 16; TEMP 36.6; O2SAT 97
[2022-02-06] MEDS: Ondansetron 4 MG/2 ML Vial IV (21:44)
[2022-02-06] MEDS: DOXEPIN HCL 50 MG CAPSULE 150 MG PO (23:14)
[2022-02-07] MEDS: 0.9% Saline Lock 10 ML Syringe IV ×4 (00:01→17:30)
[2022-02-07] MEDS: Metoclopramide 10 MG/2 ML Vial IV ×4 (00:01→17:30)
[2022-02-07 03:00] VITALS: BP 118/70; PULSE 98; RESP 16; TEMP 36.6; O2SAT 94
[2022-02-07 03:41] LABS: Bedside Glucose 116 mg/dL (74-106)
[2022-02-07] MEDS: Cephalexin 500 MG Capsule PO ×2 (06:02→14:31)
[2022-02-07 06:36] LABS: Bedside Glucose 126 mg/dL (74-106)
[2022-02-07 07:04] LABS: Absolute Lymphocyte Count 1.13 X10^3/uL (0.83-4.51); Absolute Neutrophil Count 5.6 X10^3/uL (2.0-7.7); Basophil# 0.03 X10^3/uL; Basophil% 0.4 % (0-1); Eosinophil# 0.04 X10^3/uL; Eosinophils% 0.5 % (0-5); Hematocrit 28.1 % (37-47); Hemoglobin 9.2 g/dL (12.0-15.0); Lymphocyte # 1.13 X10^3/ul (0.83-4.51); Mean Corp Hgb Conc 32.7 g/dL (32-36); Mean Corpuscular Hgb 37.2 pg (27.0-32.0); Mean Corpuscular Volume 113.8 fL (81-99); Mean Platelet Vol. 10.4 fl (6.2-12.0); Monocyte# 0.75 X10^3/uL; Monocyte% 9.9 % (0-10); NRBC Flagged by Analyzer 0 % (0-5); Neutrophil # 5.56 X10^3/uL (2.7-7.7); Neutrophil % 73.7 % (47-70); Platelet Count 156 K/mm3 (150-450); RBC Distribution Width CV 15.6 % (11.6-14.6); RBC Distribution Width SD 63.6 fl (35.1-43.9); Red Blood Count 2.47 M/mm3 (4.2-5.4); White Blood Count 7.6 K/mm3 (4.4-11.0)
[2022-02-07 07:07] LABS: AST(SGOT) 48 U/L (15-37); Alanine Aminotransfer ALT/SGPT 16 U/L (13-56); Alkaline Phosphatase 178 U/L (45-117); Anion Gap 7 (5-15); BUN 4 mg/dL (7-18); BUN/Creat Ratio 7.9 RATIO (10-20); Bilirubin, Direct 8.06 mg/dL (0.00-0.30); Calcium,Total 8.3 mg/dL (8.5-10.1); Chloride 94 mmol/L (98-107); EST Glomerular Filtration Rate 139 mL/min (>60); Est Glom Filt Rate - Afr Amer 168 mL/min (>60); Estimated Creatinine Clearance 123.85 ml/min; Globulin 3.5 g/dL (2.2-4.2); Glucose 121 mg/dL (74-106); Magnesium 1.8 mg/dL (1.6-2.6); Protein, Total 5.5 g/dL (6.4-8.2); Sodium Level 133 mmol/L (136-145)
[2022-02-07 07:10] LABS: International Normalized Ratio 1.6; Prothrombin Time (Protime)PT. 19.1 SECONDS (11.7-14.9)
[2022-02-07] MEDS: Gabapentin 300 MG Capsule PO ×2 (08:32→16:45)
[2022-02-07] MEDS: Potassium Chloride Oral Tablet 20 MEQ 40 MEQ PO (08:32)
[2022-02-07] MEDS: ALPRAZolam 0.5 MG Tablet PO ×2 (08:32→21:59)
[2022-02-07] MEDS: oxyCODONE 5 MG Tablet PO ×2 (08:32→14:39)
[2022-02-07] MEDS: Ursodiol 250 MG Tablet PO ×2 (08:33→16:34)
[2022-02-07 09:00] VITALS: BP 118/68; PULSE 90; RESP 16; TEMP 36.1; O2SAT 94
--- NOTE | 2022-02-07 09:45 | PN.HOSP_ITS ---
Subjective Subjective Patient seen still complains of abdominal discomfort. There also appears to be significant abdominal distention dull to percussion. Requested for repeat paracentesis to be performed on 02/08/2022. Objective Data Objective Data Vital Signs: Vital Signs Temp Pulse Resp BP Pulse Ox O2 Del Method O2 Flow Rate 98 F 98 16 118/70 94 Room Air 2 02/07/22 03:00 02/07/22 03:00 02/07/22 03:00 02/07/22 03:00 02/07/22 03:00 02/07/22 03:00 02/06/22 15:08 Oxygen Flow Rate (L/min) 2 Oxygen Delivery Method [3] Room Air Oxygen Delivery Method [2] Room Air Oxygen Delivery Method [1 ( Room Air Initial Baseline)] Oxygen Delivery Method Room Air Weight: 56.4 kg Body Mass Index (BMI) 20.0 Intake & Output: Intake and Output for Last 24 Hours 02/05/22 02/06/22 02/07/22 23:59 23:59 23:59 Intake Total 240 / 240 590 / 590 Output Total 3250 / 3250 Balance 240 / 240 -2660 / -2660 Medical Nutrition Assessment Dietitian: Malnutrition Criteria Met Start: 02/04/22 14:26 Freq: Status: Active Protocol: Document 02/04/22 14:43 [email or web address] (Rec: 02/04/22 14:43 LO [id number]) Nutrition Malnutrition Evidence of Malnutrition Exists Yes Malnutrition (moderate): Chronic Evidenced By Suboptimal Energy Intake ( Severe),Physical Changes ( Moderate) Clinical Problem Chronic Disease or Condition Related Malnutrition Etiology (moderate) related to ascites, alcoholic liver disease, nausea, and emesis Signs/Symptoms as evidenced by estimated PO intake <75% of estimated needs for >1 month and fat and muscle wasting to orbital and temporal regions Status Active Problem Recommendation Dietitian Recommendations/Changes Continue [address] will order Ensure Plus High Protein 120mL 4x daily with medpass. Lab / Micro Data Result Diagrams: 02/07/22 06:02 02/07/22 06:02 Labs: Laboratory Results - last 24 hr 02/06/22 11:36: POC Glucose 114 H 02/06/22 16:25: POC Glucose 96 02/06/22 21:35: POC Glucose 116 H 02/07/22 06:02: WBC 7.6, RBC 2.47 L, Hgb 9.2 L, Hct 28.1 L, MCV 113.8 H, MCH 37.2 H, MCHC 32.7, RDW Std Deviation 63.6 H, RDW Coeff of Teressa 15.6 H, Plt Count 156, MPV 10.4, Immature Gran % (Auto) 0.500, Neut % (Auto) 73.7 H, Lymph % (Auto) 15.0 L, [place] % (Auto) 9.9, Eos % (Auto) 0.5, Baso % (Auto) 0.4, Absolute Neuts (auto) 5.6, Absolute Lymphs (auto) 1.13, Nucleated RBC % 0 02/07/22 06:02: PT 19.1 H, INR 1.6 02/07/22 06:02: Sodium 133 L, Potassium 3.0 L, Chloride 94 L, Carbon Dioxide 32.0, Anion Gap 7, BUN 4 L, Creatinine 0.50 L, Estim Creat Clear Calc 123.85, Est GFR (MDRD) Af Amer 168, Est GFR (MDRD) Non-Af 139, BUN/Creatinine Ratio 7.9 L, Glucose 121 H, Calcium 8.3 L, Phosphorus 3.0, Magnesium 1.8, Total Bilirubin 9.20 H, Direct Bilirubin 8.06 H, AST 48 H, ALT 16, Alkaline Phosphatase 178 H, Total Protein 5.5 L, Albumin 2.0 L, Globulin 3.5 02/07/22 06:13: POC Glucose 126 H Micro: Microbiology 02/03/22 21:12 Urine, Clean Catch Urine Culture - Final Escherichia coli Physical Exam Narrative GENERAL: cooperative HEENT: Atraumatic; EYES; Anicteric, Normal Conjunctiva NECK; supple, normal thyroid, RESPIRATORY: Diminished to auscultation CARDIOVASCULAR: Regular S1 S2, GI: Abdomen distended, dull to percussion : No Renal angle tenderness; EXTREMITIES: No edema, no clubbing, MUSCULOSKELETAL: no muscle wasting NEURO: Awake; no lateralizing signs. SKIN: No Rash PSYCH; Flat affect Assessment & Plan Assessment/Plan (1) Alcoholic cirrhosis of liver with ascites: PLAN: Plan Patient is a 46-year-old lady with history of alcoholic liver disease admitted with abdominal pain and distention 1. Ascites secondary to cirrhosis ? Patient has been admitted to regular nursing floor. Plan is for patient to undergo diagnostic and therapeutic paracentesis. Consult was placed to GI on admission -02/05/2022; Patient underwent ultrasound guided paracentesis on 02/04/2022. A total of 1150 ml of ? annalisa-colored fluid? were removed from the peritoneal cavity.? A 100 mL sample was sent to the laboratory for analysis.. Patient was also seen in consultation by Dr. Munson with GI's recommendations reviewed 02/06/2022; Patient discharged the day prior was discontinued after she developed significant abdominal pain. Repeat ultrasound did show Prominent four-quadrant ascites with the largest pocket in the right lower quadrant.. Plan is to repeat paracentesis on 02/08/2022 given significant ascites on ultrasound -02/07/2022; Patient seen still complains of abdominal discomfort. There also appears to be significant abdominal distention dull to percussion. Requested for repeat paracentesis to be performed on 02/08/2022. 2. 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 Presented with ascites management as described above 3. Diabetes mellitus type II -patient's oral hypoglycemics held. Placed on long acting insulin, Accu-Cheks a.c. and at bedtime and covered with sliding scale insulin 4. Depression ? Patient is on duloxetine 5. Anemia - Secondary to chronic disorder monitoring H&H and transfuse if patient becomes symptomatic or hemoglobin falls below 7 6. Hypokalemia ? Corrected per protocol 7. DVT prophylaxis ? Bilateral SCDs 9. Moderate protein calorie malnutrition ? As evidenced by suboptimal energy intake and physical changes this is related to patient underlying alcoholic liver disease. Recommendation as given by dietitian Charges/Coding Visit Charges Inpatient E&M: 57297 Subs Hosp L2
[2022-02-07] MEDS: Furosemide 40 MG Tablet PO (10:24)
[2022-02-07] MEDS: Spironolactone 25 MG Tablet PO (10:24)
[2022-02-07] MEDS: Vitamin E 400 UNITS Capsule 800 UNITS PO (10:25)
[2022-02-07] MEDS: DULoxetine Hcl 60 MG Capsule PO (10:26)
[2022-02-07] MEDS: Lactulose 20 GM/30 ML UDC PO (11:55)
[2022-02-07] MEDS: rifAXIMin 550 MG Tablet PO ×3 (11:55→21:59)
[2022-02-07 12:15] LABS: Bedside Glucose 119 mg/dL (74-106)
[2022-02-07 14:34] VITALS: BP 101/59; PULSE 88; RESP 18; TEMP 36.6; O2SAT 94
[2022-02-07] MEDS: Ensure Plus High Protein 120 ML LIQUID PO (16:45)
[2022-02-07 16:55] LABS: Bedside Glucose 114 mg/dL (74-106)
[2022-02-07] MEDS: Scopolamine 1mg/72hr Patch 1 PATCH TD (17:30)
[2022-02-07] MEDS: Ondansetron 4 MG/2 ML Vial IV (20:58)
[2022-02-07 21:01] VITALS: BP 106/44; PULSE 100; RESP 16; TEMP 36.9; O2SAT 98
[2022-02-07 21:26] LABS: Bedside Glucose 114 mg/dL (74-106)
[2022-02-07] MEDS: DOXEPIN HCL 50 MG CAPSULE 150 MG PO (21:59)
[2022-02-08] MEDS: Metoclopramide 10 MG/2 ML Vial IV ×5 (00:07→23:30)
[2022-02-08 03:28] VITALS: BP 109/59; PULSE 103; RESP 14; TEMP 36.8; O2SAT 93
[2022-02-08 05:51] LABS: Absolute Lymphocyte Count 1.01 X10^3/uL (0.83-4.51); Absolute Neutrophil Count 5.2 X10^3/uL (2.0-7.7); Basophil# 0.03 X10^3/uL; Basophil% 0.4 % (0-1); Eosinophil# 0.03 X10^3/uL; Eosinophils% 0.4 % (0-5); Hematocrit 27.4 % (37-47); Hemoglobin 8.9 g/dL (12.0-15.0); Lymphocyte # 1.01 X10^3/ul (0.83-4.51); Mean Corp Hgb Conc 32.5 g/dL (32-36); Mean Corpuscular Hgb 36.3 pg (27.0-32.0); Mean Corpuscular Volume 111.8 fL (81-99); Mean Platelet Vol. 10.2 fl (6.2-12.0); Monocyte# 0.87 X10^3/uL; Monocyte% 12.1 % (0-10); NRBC Flagged by Analyzer 0 % (0-5); Neutrophil # 5.21 X10^3/uL (2.7-7.7); Neutrophil % 72.4 % (47-70); Platelet Count 168 K/mm3 (150-450); RBC Distribution Width CV 15.7 % (11.6-14.6); RBC Distribution Width SD 63.5 fl (35.1-43.9); Red Blood Count 2.45 M/mm3 (4.2-5.4); White Blood Count 7.2 K/mm3 (4.4-11.0)
[2022-02-08 05:54] LABS: International Normalized Ratio 1.5
[2022-02-08] MEDS: rifAXIMin 550 MG Tablet PO (06:00)
[2022-02-08] MEDS: Cephalexin 500 MG Capsule PO ×3 (06:00→21:27)
[2022-02-08] MEDS: Insulin Lispro 100 UNIT/ML INSULN.PEN SC ×2 (06:04→16:33)
[2022-02-08 06:11] LABS: AST(SGOT) 48 U/L (15-37); Alanine Aminotransfer ALT/SGPT 17 U/L (13-56); Alkaline Phosphatase 161 U/L (45-117); Anion Gap 9 (5-15); BUN 5 mg/dL (7-18); BUN/Creat Ratio 8.8 RATIO (10-20); Bilirubin, Direct 8.23 mg/dL (0.00-0.30); Calcium,Total 8.4 mg/dL (8.5-10.1); Chloride 93 mmol/L (98-107); Creatinine, Serum 0.57 mg/dL (0.55-1.02); EST Glomerular Filtration Rate 122 mL/min (>60); Est Glom Filt Rate - Afr Amer 147 mL/min (>60); Estimated Creatinine Clearance 108.64 ml/min; Globulin 3.5 g/dL (2.2-4.2); Glucose 142 mg/dL (74-106); Magnesium 1.8 mg/dL (1.6-2.6); Potassium 2.9 mmol/L (3.5-5.1); Protein, Total 5.5 g/dL (6.4-8.2); Sodium Level 132 mmol/L (136-145)
[2022-02-08 06:15] LABS: Bedside Glucose 159 mg/dL (74-106)
[2022-02-08 06:17] LABS: Phosphorus 2.6 mg/dL (2.5-4.9)
--- NOTE | 2022-02-08 08:00 | US_ITS ---
PROCEDURE: Ultrasound guided paracentesis. DATE OF EXAMINATION: 02/08/2022. INDICATION: Female, 46 years old. Ascites. PHYSICIAN: Denzel Quijano M.D. TECHNIQUE: The risks, benefits, and alternatives to the procedure were explained to the patient. The specific risks of bleeding, infection, and damage to bowel were detailed and accepted. Witnessed informed consent was obtained. The abdomen was ultrasonographically surveyed. An appropriate pocket of fluid was identified at the right lower quadrant. The skin were cleaned and prepped in the usual sterile fashion. Using ultrasound guidance, the peritoneal cavity was accessed with a 5-Sudanese paracentesis needle/catheter system. The trocar was removed. A total of 1050 ml of annalisa-colored fluid were removed from the peritoneal cavity. The catheter was removed and a sterile dressing was applied. The procedure was well tolerated. US/Paracentesis with US IMPRESSION: Ultrasound guided paracentesis. Electronically Signed: Denzel Quijano MD at 14:31 EDT ,
[2022-02-08] MEDS: Lactulose 20 GM/30 ML UDC PO ×2 (09:21→21:27)
[2022-02-08] MEDS: Gabapentin 300 MG Capsule PO ×2 (09:21→16:29)
[2022-02-08] MEDS: Furosemide 40 MG Tablet PO (09:22)
[2022-02-08] MEDS: Spironolactone 25 MG Tablet PO ×2 (09:22→21:28)
[2022-02-08] MEDS: DULoxetine Hcl 60 MG Capsule PO (09:22)
[2022-02-08] MEDS: Vitamin E 400 UNITS Capsule 800 UNITS PO (09:23)
[2022-02-08] MEDS: Ursodiol 250 MG Tablet PO ×2 (09:23→16:26)
[2022-02-08 09:28] VITALS: BP 112/57; PULSE 97; RESP 16; TEMP 36.6; O2SAT 95
--- NOTE | 2022-02-08 09:57 | PN.HOSP_ITS ---
Subjective Subjective Doing well, less abdominal pain today but still distended. Continues to be jaundiced Objective Data Objective Data Vital Signs: Vital Signs Temp Pulse Resp BP Pulse Ox O2 Del Method O2 Flow Rate 97.8 F 97 16 112/57 L 95 Room Air 2 02/08/22 09:28 02/08/22 09:28 02/08/22 09:28 02/08/22 09:28 02/08/22 09:28 02/08/22 09:02/06/22 15:08 Oxygen Flow Rate (L/min) 2 Oxygen Delivery Method [3] Room Air Oxygen Delivery Method [2] Room Air Oxygen Delivery Method [1 ( Room Air Initial Baseline)] Oxygen Delivery Method Room Air Weight: 124 lb 5.451 oz Body Mass Index (BMI) 20.0 Intake & Output: Intake and Output for Last 24 Hours 02/07/22 02/08/22 02/09/22 03:59 03:59 03:59 Intake Total 590 / 590 740 / 740 150 / 150 Output Total 3250 / 3250 Balance -2660 / -2660 740 / 740 150 / 150 Medical Nutrition Assessment Dietitian: Malnutrition Criteria Met Start: 02/04/22 14 :26 Freq: Status: Active Protocol: Document 02/04/22 14:43 LO (Rec: 02/04/22 14:43 [id number]) Nutrition Malnutrition Evidence of Malnutrition Exists Yes Malnutrition (moderate): Chronic Evidenced By Suboptimal Energy Intake ( Severe),Physical Changes ( Moderate) Clinical Problem Chronic Disease or Condition Related Malnutrition Etiology (moderate) related to ascites, alcoholic liver disease, nausea, and emesis Signs/Symptoms as evidenced by estimated PO intake <75% of estimated needs for >1 month and fat and muscle wasting to orbital and temporal regions Status Active Problem Recommendation Dietitian Recommendations/Changes Continue [address] will order Ensure Plus High Protein 120mL 4x daily with medpass. Lab / Micro Data Result Diagrams: 02/08/22 04:15 02/08/22 04:15 Labs: Laboratory Results - last 24 hr 02/07/22 11:54: POC Glucose 119 H 02/07/22 16:31: POC Glucose 114 H 02/07/22 21:04: POC Glucose 114 H 02/08/22 04:15: WBC 7.2, RBC 2.45 L, Hgb 8.9 L, Hct 27.4 L, MCV 111.8 H, MCH 36.3 H, MCHC 32.5, RDW Std Deviation 63.5 H, RDW Coeff of Teressa 15.7 H, Plt Count 168, MPV 10.2, Immature Gran % (Auto) 0.700, Neut % (Auto) 72.4 H, Lymph % (Auto) 14.0 L, [place] % (Auto) 12.1 H, Eos % (Auto) 0.4, Baso % (Auto) 0.4, Absolute Neuts (auto) 5.2, Absolute Lymphs (auto) 1.01, Nucleated RBC % 0 02/08/22 04:15: Sodium 132 L, Potassium 2.9 L, Chloride 93 L, Carbon Dioxide 30.0, Anion Gap 9, BUN 5 L, Creatinine 0.57, Estim Creat Clear Calc 108.64, Est GFR (MDRD) Af Amer 147, Est GFR (MDRD) Non-Af 122, BUN/Creatinine Ratio 8.8 L, Glucose 142 H, Calcium 8.4 L, Magnesium 1.8, Total Bilirubin 9.50 H, Direct Bilirubin 8.23 H, AST 48 H, ALT 17, Alkaline Phosphatase 161 H, Total Protein 5.5 L, Albumin 2.0 L, Globulin 3.5 02/08/22 04:15: PT 18.0 H, INR 1.5 02/08/22 04:15: Phosphorus 2.6 02/08/22 05:53: POC Glucose 159 H Micro: Microbiology 02/03/22 21:12 Urine, Clean Catch Urine Culture - Final Escherichia coli Physical Exam Narrative General: Alert, Oriented x3, Cooperative, No apparent distress HEENT: Atraumatic, PERRLA, EOMI, Normocephalic, scleral icterus Oral: Moist Mucosa Neck: Supple, No JVD Lungs: Clear to auscultation, Normal air movement, No rhonchi, No wheeze, No rales Cardiovascular: Regular rate, Regular Rhythm, Normal S1, Normal S2, No murmurs Abdomen: Soft, Non Tender, Distended, No Hepato-splenomegaly Extremities: No edema, Capillary Refill Less than 3 Seconds Skin: Jaundice Musculoskeletal: No Tenderness to Palpation of Joints or Extremities Neurological: Cranial nerves II-XII grossly intact, Motor Exam 5/5 strength t hroughout, Sensory exam intact to light touch and pain Psych/Mental Status: Normal Affect, Appropriate Assessment & Plan Assessment/Plan (1) Alcoholic cirrhosis of liver with ascites: PLAN: Plan 1. Ascites secondary to alcoholic cirrhosis/anemia of chronic disease/moderate protein calorie malnutrition ? Patient has been admitted to regular nursing floor. Plan is for patient to undergo diagnostic and therapeutic paracentesis. Consult was placed to GI on admission -02/05/2022; Patient underwent ultrasound guided paracentesis on 02/04/2022. A total of 1150 ml of ? annalisa-colored fluid? were removed from the peritoneal cavity.? A 100 mL sample was sent to the laboratory for analysis.. Patient was also seen in consultation by Dr. Munson with GI's recommendations reviewed 02/06/2022; Patient discharged the day prior was discontinued after she developed significant abdominal pain. Repeat ultrasound did show Prominent four-quadrant ascites with the largest pocket in the right lower quadrant.. Plan is to repeat paracentesis on 02/08/2022 given significant ascites on ultrasound -02/07/2022; Patient seen still complains of abdominal discomfort. There also appears to be significant abdominal distention dull to percussion. Requested for repeat paracentesis to be performed on 02/08/2022. ?02/08/2022: Plan for paracentesis today. Insurance has denied Xifaxan therefore we will continue treatment with lactulose. She is undergoing evaluation for liver transplant. We will discuss case and discharge planning with GI. Continue with nutritional services for her moderate protein calorie malnutrition 2. Diabetes mellitus type II -patient's oral hypoglycemics held. Placed on long acting insulin, Accu-Cheks a.c. and at bedtime and covered with sliding scale insulin ? We will continue to monitor make adjustments as necessary 3. Depression ? Patient is on duloxetine DVT: SCDs Charges/Coding Visit Charges Inpatient E&M: 54639 Subs Hosp L2
[2022-02-08] MEDS: oxyCODONE 5 MG Tablet PO ×3 (11:07→23:45)
[2022-02-08] MEDS: Potassium Chloride 10mEq/100mL 10 MEQ/100 ML IV.SOLN. 100 MEQ IV BOLUS ×2 (11:08→12:26)
[2022-02-08 11:50] LABS: Bedside Glucose 136 mg/dL (74-106)
[2022-02-08] MEDS: Lidocaine 2% (10 ml mdv) 10 ML Vial INFILT (13:53)
[2022-02-08 14:17] VITALS: BP 100/56; BP 102/60; BP 107/66; BP 118/69; PULSE 79; PULSE 80; PULSE 83; PULSE 84; RESP 16; TEMP 36.2; O2SAT 100; O2SAT 95; O2SAT 97; O2SAT 99
[2022-02-08] MEDS: Potassium Chloride 10mEq/100mL 10 MEQ/100 ML IV.SOLN. 50 MEQ IV BOLUS (14:51)
[2022-02-08 15:15] VITALS: BP 103/54; PULSE 88; RESP 16; TEMP 36.5; O2SAT 94
[2022-02-08] MEDS: Potassium Chloride 10mEq/100mL 10 MEQ/100 ML IV.SOLN. 75 MEQ IV BOLUS (16:23)
[2022-02-08 17:01] LABS: Bedside Glucose 157 mg/dL (74-106)
[2022-02-08 21:13] VITALS: BP 103/65; PULSE 94; RESP 16; TEMP 37; O2SAT 94
[2022-02-08] MEDS: Ensure Plus High Protein 120 ML LIQUID PO (21:27)
[2022-02-08] MEDS: DOXEPIN HCL 50 MG CAPSULE 150 MG PO (21:27)
[2022-02-08 22:26] LABS: Bedside Glucose 119 mg/dL (74-106)
[2022-02-08] MEDS: 0.9% Saline Lock 10 ML Syringe IV ×2 (23:30→23:45)
[2022-02-09 03:37] VITALS: BP 108/61; PULSE 89; RESP 16; TEMP 36.5; O2SAT 92
[2022-02-09 06:10] LABS: Absolute Lymphocyte Count 1.41 X10^3/uL (0.83-4.51); Absolute Neutrophil Count 4.7 X10^3/uL (2.0-7.7); Basophil# 0.04 X10^3/uL; Basophil% 0.5 % (0-1); Eosinophil# 0.13 X10^3/uL; Eosinophils% 1.7 % (0-5); Hematocrit 26.8 % (37-47); Hemoglobin 8.8 g/dL (12.0-15.0); Lymphocyte # 1.41 X10^3/ul (0.83-4.51); Lymphocyte % 18.7 % (19-41); Mean Corp Hgb Conc 32.8 g/dL (32-36); Mean Corpuscular Hgb 36.5 pg (27.0-32.0); Mean Corpuscular Volume 111.2 fL (81-99); Mean Platelet Vol. 10.1 fl (6.2-12.0); Monocyte# 1.13 X10^3/uL; NRBC Flagged by Analyzer 0 % (0-5); Neutrophil # 4.74 X10^3/uL (2.7-7.7); Platelet Count 151 K/mm3 (150-450); RBC Distribution Width CV 15.7 % (11.6-14.6); RBC Distribution Width SD 63.8 fl (35.1-43.9); Red Blood Count 2.41 M/mm3 (4.2-5.4); White Blood Count 7.5 K/mm3 (4.4-11.0)
[2022-02-09 06:53] LABS: ALB/GLOB Ratio 0.6 RATIO (0.9-2.4); AST(SGOT) 46 U/L (15-37); Alanine Aminotransfer ALT/SGPT 16 U/L (13-56); Albumin, Serum 1.9 g/dL (3.2-5.0); Alkaline Phosphatase 139 U/L (45-117); Anion Gap 9 (5-15); BUN 5 mg/dL (7-18); Calcium,Total 8.5 mg/dL (8.5-10.1); Chloride 99 mmol/L (98-107); Creatinine, Serum 0.63 mg/dL (0.55-1.02); EST Glomerular Filtration Rate 108 mL/min (>60); Est Glom Filt Rate - Afr Amer 131 mL/min (>60); Estimated Creatinine Clearance 98.29 ml/min; Globulin 3.2 g/dL (2.2-4.2); Glucose 127 mg/dL (74-106); Magnesium 1.7 mg/dL (1.6-2.6); Phosphorus 2.9 mg/dL (2.5-4.9); Potassium 2.8 mmol/L (3.5-5.1); Protein, Total 5.1 g/dL (6.4-8.2); Sodium Level 137 mmol/L (136-145)
[2022-02-09] MEDS: 0.9% Saline Lock 10 ML Syringe IV ×2 (06:58→12:17)
[2022-02-09] MEDS: Cephalexin 500 MG Capsule PO ×2 (06:58→14:08)
[2022-02-09] MEDS: Metoclopramide 10 MG/2 ML Vial IV ×2 (06:58→12:17)
[2022-02-09 07:25] LABS: Bedside Glucose 124 mg/dL (74-106)
[2022-02-09 07:38] LABS: International Normalized Ratio 1.6; Prothrombin Time (Protime)PT. 18.5 SECONDS (11.7-14.9)
[2022-02-09 07:39] LABS: Partial Thromboplast Time 35.5 Seconds (24.1-36.2)
--- NOTE | 2022-02-09 07:40 | PCM.PROGNOTE ---
Subjective Subjective Patient is status paracentesis. She feels a little bit better. Her blood pressure has been stable. She is a little less nauseous today. She is not have any abdominal pain. She denies any chest pain or shortness of breath. Objective Data Objective Data Vital Signs: Vital Signs Temp Pulse Resp BP Pulse Ox O2 Del Method O2 Flow Rate 97.7 F L 89 16 108/61 92 Room Air 2 02/09/22 03:37 02/09/22 03:37 02/09/22 03:37 02/09/22 03:37 02/09/22 03:37 02/09/22 03:37 02/06/22 15:08 Oxygen Flow Rate (L/min) 2 Oxygen Delivery Method [4] Room Air Oxygen Delivery Method [3] Room Air Oxygen Delivery Method [2] Room Air Oxygen Delivery Method [1 ( Room Air Initial Baseline)] Oxygen Delivery Method [3] Room Air Oxygen Delivery Method [2] Room Air Oxygen Delivery Method [1 ( Room Air Initial Baseline)] Oxygen Delivery Method Room Air Weight: 124 lb 5.451 oz Body Mass Index (BMI) 20.0 Intake & Output: Intake and Output for Last 24 Hours 02/07/22 02/08/22 02/09/22 23:59 23:59 23:59 Intake Total 590 / 740 640.84 / 640.84 300 / 300 Output Total 1050 / 1050 Balance 590 / 740 -409.16 / -409.16 300 / 300 Medical Nutrition Assessment Dietitian: Malnutrition Criteria Met Start: 02/04/22 14:26 Freq: Status: Active Protocol: Document 02/04/22 14:43 [email or web address] (Rec: 02/04/22 14:43 [id number]) Nutrition Malnutrition Evidence of Malnutrition Exists Yes Malnutrition (moderate): Chronic Evidenced By Suboptimal Energy Intake ( Severe),Physical Changes ( Moderate) Clinical Problem Chronic Disease or Condition Related Malnutrition Etiology (moderate) related to ascites, alcoholic liver disease, nausea, and emesis Signs/Symptoms as evidenced by estimated PO intake <75% of estimated needs for >1 month and fat and muscle wasting to orbital and temporal regions Status Active Problem Recommendation Dietitian Recommendations/Changes Continue [address] will order Ensure Plus High Protein 120mL 4x daily with medpass. Lab / Micro Data Result Diagrams: 02/09/22 05:33 02/09/22 05:33 Labs: Laboratory Results - last 24 hr 02/08/22 11:29: POC Glucose 136 H 02/08/22 16:33: POC Glucose 157 H 02/08/22 21:23: POC Glucose 119 H 02/09/22 05:33: WBC 7.5, RBC 2.41 L, Hgb 8.8 L, Hct 26.8 L, MCV 111.2 H, MCH 36.5 H, MCHC 32.8, RDW Std Deviation 63.8 H, RDW Coeff of Teressa 15.7 H, Plt Count 151, MPV 10.1, Immature Gran % (Auto) 1.100 H, Neut % (Auto) 63.0, Lymph % (Auto) 18.7 L, [place] % (Auto) 15.0 H, Eos % (Auto) 1.7, Baso % (Auto) 0.5, Absolute Neuts (auto) 4.7, Absolute Lymphs (auto) 1.41, Nucleated RBC % 0 02/09/22 05:33: Sodium 137, Potassium 2.8 L, Chloride 99, Carbon Dioxide 29.0, Anion Gap 9, BUN 5 L, Creatinine 0.63, Estim Creat Clear Calc 98.29, Est GFR (MDRD) Af Amer 131, Est GFR (MDRD) Non-Af 108, BUN/Creatinine Ratio 8.0 L, Glucose 127 H, Calcium 8.5, Phosphorus 2.9, Magnesium 1.7, Total Bilirubin 8.70 H, AST 46 H, ALT 16, Alkaline Phosphatase 139 H, Total Protein 5.1 L, Albumin 1.9 L, Globulin 3.2, Albumin/Globulin Ratio 0.6 L 02/09/22 06:56: POC Glucose 124 H 02/09/22 07:01: PT 18.5 H, INR 1.6, APTT 35.5 Micro: Microbiology 02/03/22 21:12 Urine, Clean Catch Urine Culture - Final Escherichia coli Radiography Diagnostic Testing: Radiology Impression Paracentesis Ultrasound 02/08/22 08:00 IMPRESSION: Ultrasound guided paracentesis. Electronically Signed: Denzel Quijano MD at 14:31 EDT , Physical Exam Narrative General: Alert, Oriented x3, Cooperative, No apparent distress HEENT: Atraumatic, PERRLA, EOMI, Normocephalic, scleral icterus Oral: Moist Mucosa Neck: Supple, No JVD Lungs: Clear to auscultation, Normal air movement, No rhonchi, No wheeze, No rales Cardiovascular: Regular rate, Regular Rhythm, Normal S1, Normal S2, No murmurs Abdomen: Soft, Non Tender, Distended, No Hepato-splenomegaly Extremities: No edema, Capillary Refill Less than 3 Seconds Skin: Jaundice Musculoskeletal: No Tenderness to Palpation of Joints or Extremities Neurological: Cranial nerves II-XII grossly intact, Motor Exam 5/5 strength throughout, Sensory exam intact to light touch and pain Psych/Mental Status: Normal Affect, Appropriate Assessment & Plan Assessment/Plan (1) Abdominal pain: PLAN: Abdominal pain secondary to large volume ascites status post paracentesis. There was no sign of SBP. She did get 1 dose of Lasix but is not currently on scheduled diuretic therapy. I will initiate Lasix and Aldactone. We will also start midodrine as it has some effect of decreasing ascites formation. This will also help maintain normal blood pressure in the setting of diuretic therapy. I will order an alpha-fetoprotein. If she is still able to eat, maintain a normal blood pressure, and not have any nausea she should be able to is discharged to home (2) Cirrhosis: PLAN: Her meld went up to 22 and she is now a child Montes class B. I am not sure why she decompensated and started developing recalcitrant ascites. Hopefully with the use of diuretic therapy, midodrine, and a small amount of steroids for her persistent jaundice will help her. It is very difficult to determine if she is still drinking alcohol due to the hepatomegaly does seem and her lab work that resembles alcoholic hepatitis. I will check an INR, PT, PTT, LDH and lactate. She has not shown any signs of encephalopathy or GI bleeding at this time. Patient is okay with this plan as discussed at the bedside. (3) Vomiting: PLAN: Vomiting I think is multifactorial secondary to gastroparesis which is mechanical from ascites and diabetes mellitus. We will her on scheduled metoclopramide. Charges/Coding Visit Charges Inpatient E&M: 75828 Subs Hosp L3
[2022-02-09 09:05] VITALS: BP 103/62; PULSE 86; RESP 18; TEMP 36.6; O2SAT 95
[2022-02-09] MEDS: oxyCODONE 5 MG Tablet PO (09:22)
[2022-02-09] MEDS: DULoxetine Hcl 60 MG Capsule PO (09:22)
[2022-02-09] MEDS: Furosemide 40 MG Tablet PO (09:22)
[2022-02-09] MEDS: Ursodiol 250 MG Tablet PO (09:22)
[2022-02-09] MEDS: Gabapentin 300 MG Capsule PO (09:22)
[2022-02-09] MEDS: Vitamin E 400 UNITS Capsule 800 UNITS PO (09:22)
[2022-02-09] MEDS: predniSONE 20 MG Tablet PO (09:23)
[2022-02-09] MEDS: Lactulose 20 GM/30 ML UDC PO (09:23)
[2022-02-09] MEDS: Spironolactone 25 MG Tablet PO (09:23)
[2022-02-09] MEDS: Ensure Plus High Protein 120 ML LIQUID PO (09:24)
[2022-02-09] MEDS: Midodrine HCl 5 MG Tablet 10 MG PO ×2 (09:24→12:17)
--- NOTE | 2022-02-09 11:53 | DCINST_ITS ---
Discharge Instructions Diet Discharge Diet: 6 Cup Fluid Restriction Activity Discharge Activity: Return to Normal Activity Dressing / Incision Call your doctor if you observe: Fever of 101 or Higher, Shortness of breath, Dizziness, Fainting spells, Swelling in the ankles, Chest pain and Increased palpitations (irregular heartbeat) Follow Up Care Test Results: Test results from this visit will be discussed in further detail at your follow- up appointment, if applicable. Discharge Plan Admission Admit Date/Time: 02/03/22 22:54 Attending Provider: Damien Valdovinos Primary Care Provider: Valerie Mullins Consulting Providers: Cielo Roque ; Sai Aparicio Instructions Patient Instructions: ANDRES RN Paracentesis Dc Additional Instructions / Restrictions: Follow-up with your PCP to obtain a BMP to monitor your renal function as well as your potassium Discharge Orders/Prescriptions Prescriptions: New spironolactone [Aldactone] 25 mg tablet 25 mg PO BID Qty: 120 0RF lactulose 20 gram/30 mL solution 20 g PO BID Qty: 3000 0RF furosemide 40 mg Tablet 40 mg PO DAILY Qty: 30 0RF prednisone 20 mg Tablet 20 mg PO BREAKFAST Qty: 30 0RF midodrine 5 mg Tablet 10 mg PO TIDCM 30 Days Qty: 180 0RF potassium chloride 20 mEq tablet extended release 20 meq PO BID 30 Days Qty: 60 0RF Continued gabapentin 300 mg capsule 300 mg PO BID Label Comments: take 1 capsule by mouth three times a day as directed losartan 50 mg tablet 50 mg PO DAILY metformin 500 mg tablet 500 mg PO BID doxepin 75 mg capsule 150 mg PO QHS Label Comments: take 2 capsules by mouth at bedtime promethazine 25 mg tablet 25 mg PO Q6H PRN (Reason: Nausea) Label Comments: take 1 tablet by mouth every 6 hours if needed for nausea ursodiol 300 mg capsule 300 mg PO BID Label Comments: take 1 capsule by mouth twice a day vitamin E 268 mg (400 unit) Capsule 536 mg PO DAILY duloxetine 60 mg capsule,delayed release(DR/EC) 60 mg PO DAILY Label Comments: take 1 capsule by mouth once daily alprazolam 0.25 mg tablet 0.25 - 0.5 mg PO BID PRN (Reason: Anxiety) Label Comments: take 1-2 tablets by mouth twice a day if needed for anxiety for up to 90 DAYS Referrals / Follow Up: Valerie Mullins MD [Primary Care Provider] - 02/15/22 2:00 pm Friend,DO Dougie [Med Staff - Active Staff] - Within 2 Weeks Disposition Disposition (needs filled in before D/C Order can be placed): Home, Self Care
[2022-02-09] MEDS: Insulin Lispro 100 UNIT/ML INSULN.PEN SC (12:17)
[2022-02-09] MEDS: Potassium Chloride Oral Tablet 20 MEQ 60 MEQ PO (12:27)
--- NOTE | 2022-02-09 12:28 | PCM.DC.SUM ---
Providers Date of Admission: 02/03/22 Primary Care Physician: Dr. Valerie Mullins MD Consultations 02/03/22 23:23 Consult: Gastroenterology Routine Consulting Provider: [facility] Reason for Consult: alcoholic liver disease with ascites EMERGENT Consult: No MD Notified: Yes Date Notified: 02/03/22 Time Notified: 22:57 Method of Notification: Text Reason For Visit: ASCITES DUE TO ALCOHOLIC LIVER DISEASE Diagnosis Discharge Diagnosis (1) Abdominal pain: Status: Acute Code(s): R10.9 - Unspecified abdominal pain (2) Cirrhosis: Status: Acute Code(s): K74.60 - Unspecified cirrhosis of liver (3) Vomiting: Status: Acute Code(s): R11.10 - Vomiting, unspecified Plan 1. Ascites secondary to alcoholic cirrhosis/anemia of chronic disease/moderate protein calorie malnutrition ? Patient has been admitted to regular nursing floor. Plan is for patient to undergo diagnostic and therapeutic paracentesis. Consult was placed to GI on admission -02/05/2022; Patient underwent ultrasound guided paracentesis on 02/04/2022. A total of 1150 ml of ? annalisa-colored fluid? were removed from the peritoneal cavity.? A 100 mL sample was sent to the laboratory for analysis.. Patient was also seen in consultation by Dr. Munson with GI's recommendations reviewed 02/06/2022; Patient discharged the day prior was discontinued after she developed significant abdominal pain. Repeat ultrasound did show Prominent four-quadrant ascites with the largest pocket in the right lower quadrant.. Plan is to repeat paracentesis on 02/08/2022 given significant ascites on ultrasound -02/07/2022; Patient seen still complains of abdominal discomfort. There also appears to be significant abdominal distention dull to percussion. Requested for repeat paracentesis to be performed on 02/08/2022. ?02/08/2022: Plan for paracentesis today. Insurance has denied Xifaxan therefore we will continue treatment with lactulose. She is undergoing evaluation for liver transplant. We will discuss case and discharge planning with GI. Continue with nutritional services for her moderate protein calorie malnutrition 2. Diabetes mellitus type II -patient's oral hypoglycemics held. Placed on long acting insulin, Accu-Cheks a.c. and at bedtime and covered with sliding scale insulin ? We will continue to monitor make adjustments as necessary 3. Depression ? Patient is on duloxetine DVT: SCDs Medications at Discharge Home Medications gabapentin 300 mg capsule 300 mg PO BID pain 08/11/21 doxepin 75 mg capsule 150 mg PO QHS mood 12/10/21 duloxetine 60 mg capsule,delayed release 60 mg PO DAILY depression 12/10/21 losartan 50 mg tablet 50 mg PO DAILY BP 12/10/21 metformin 500 mg tablet 500 mg PO BID Check with primary doctor 12/10/21 promethazine 25 mg tablet 25 mg PO Q6H PRN Nausea 12/10/21 ursodiol 300 mg capsule 300 mg PO BID Check with primary doctor 12/10/21 vitamin E 268 mg (400 unit) capsule 536 mg PO DAILY SUPPLEMENT 12/10/21 alprazolam 0.25 mg tablet 0.25 - 0.5 mg PO BID PRN Anxiety 02/03/22 lactulose 20 gram/30 mL oral solution 20 g (30 mL) PO BID #3,000 mL 02/05/22 spironolactone 25 mg tablet (Aldactone) 25 mg PO BID #120 tabs 02/05/22 furosemide 40 mg tablet 40 mg PO DAILY #30 tabs 02/09/22 midodrine 5 mg tablet 10 mg PO TIDCM 30 days #180 tabs 02/09/22 potassium chloride 20 mEq tablet,extended release 20 meq PO BID 30 days #60 tabs 02/09/22 prednisone 20 mg tablet 20 mg PO BREAKFAST #30 tabs 02/09/22 Hospital Course Operations None Procedures Paracentesis Summary of Care Provided Minutes Spent on Discharge: 42 Hospital Course: Per HPI: DAVID TATE, is a 46 F with a PMH as outlined who presents via the ED on 02/03/2022 with a complaint of abdominal pain and swelling. She has a history of cirrhosis due to alcohol abuse and complained of abdominal pain and swelling over the last few days prior to admission, with associated nausea and vomiting. She has never had a paracentesis. She went to see her GI and it was thought that she would need paracentesis, so she was sent to the ED. Vitals were BP of 107/51, WV of 97, RR of 16 and? and temp of 97F. She was saturating at 96% on room air. CBC showed hb of 10.3, platelets of 244 and wbc of 9.6. INR is 1.4 nad chemistry showed sodium of 136 and potassium of 3 as well as chloride of 94. Total bilirubin was 7.4 with direct bilirubiin of 6.54; AST was 55 and ALT was 21 with ALP of 267. Urinalysis showed 2+ bacteria and 0-5 wbcs; she appears to have bacteria in her urine since November 2021. She is being admitted to be managed for new onset ascites in a patient with known cirrhosis due to alcoholic liver disease. Hospital Course: 1.? Ascites secondary to alcoholic cirrhosis/anemia of chronic disease/moderate protein calorie malnutrition ? Patient has been admitted to regular nursing floor.? Plan is for patient to undergo diagnostic and therapeutic paracentesis.? Consult was placed to GI on admission -02/05/2022;? ? Patient underwent ultrasound guided paracentesis on 02/04/2022.? A total of 1150 ml of ? annalisa-colored fluid? were removed from the peritoneal cavity.? A 100 mL sample was sent to the laboratory for analysis..? Patient was also seen in consultation by Dr. Munson with GI's recommendations reviewed 02/06/2022; Patient discharged the day prior was discontinued after she developed significant abdominal pain.? Repeat ultrasound did show Prominent four-quadrant ascites with the largest pocket in the right lower quadrant..? Plan is to repeat paracentesis on 02/08/2022 given significant ascites on ultrasound -02/07/2022; Patient seen still complains of abdominal discomfort.? There also appears to be significant abdominal distention dull to percussion.? Requested for repeat paracentesis to be performed on 02/08/2022. ?02/08/2022: Plan for paracentesis today.? Insurance has denied Xifaxan therefore we will continue treatment with lactulose.? She is undergoing evaluation for liver transplant.? We will discuss case and discharge planning with GI.? Continue with nutritional services for her moderate protein calorie malnutrition ? 02/09/2022: She did have about a liter taken off of her paracentesis yesterday and she is feeling better. I discussed with her the plan for discharge today she expressed understanding of the risk benefits of going home and would like to go home today. I did discuss with her her medication regimen which include an increased dose of her Lasix to 40 mg daily, continuing her Aldactone at 25 mg p.o. twice daily, she will also be started on steroids for 30 days as well as midodrine to see if we can push her diuretic therapy to get more of her ascitic fluid off. I do recommend outpatient follow-up for her CBC as well as her BMP for renal function as well as her potassium which has been low. Despite her being on Aldactone I will send her with twice daily dosing of potassium chloride to help boost her potassium. Hopefully as an outpatient she is monitored closely by her PCP and her potassium chloride is discontinued when appropriate. She will need to follow-up with gastroenterology as an outpatient and to continue following up with the liver transplant team as well. 2.? Diabetes mellitus type II -patient's oral hypoglycemics held. Placed on long acting insulin, Accu-Cheks a.c. and at bedtime and covered with sliding scale insulin ? We will continue to monitor make adjustments as necessary ? On discharge she can all of her home medications 3.? Depression ? Patient is on duloxetine Physical Exam Narrative General: Alert, Oriented x3, Cooperative, No apparent distress HEENT: Atraumatic, PERRLA, EOMI, Normocephalic, scleral icterus Oral: Moist Mucosa Neck: Supple, No JVD Lungs: Clear to auscultation, Normal air movement, No rhonchi, No wheeze, No rales Cardiovascular: Regular rate, Regular Rhythm, Normal S1, Normal S2, No murmurs Abdomen: Soft, Non Tender, Distended, No Hepato-splenomegaly Extremities: No edema, Capillary Refill Less than 3 Seconds Skin: Jaundice Musculoskeletal: No Tenderness to Palpation of Joints or Extremities Neurological: Cranial nerves II-XII grossly intact, Motor Exam 5/5 strength throughout, Sensory exam intact to light touch and pain Psych/Mental Status: Normal Affect, Appropriate Medical Records Data Medical Nutrition Assessment Dietitian: Malnutrition Criteria Met Start: 02/04/22 14:26 Freq: Status: Active Protocol: Document 02/04/22 14:43 LO (Rec: 02/04/22 14:43 [id number]) Nutrition Malnutrition Evidence of Malnutrition Exists Yes Malnutrition (moderate): Chronic Evidenced By Suboptimal Energy Intake ( Severe),Physical Changes ( Moderate) Clinical Problem Chronic Disease or Condition Related Malnutrition Etiology (moderate) related to ascites, alcoholic liver disease, nausea, and emesis Signs/Symptoms as evidenced by estimated PO intake <75% of estimated needs for >1 month and fat and muscle wasting to orbital and temporal regions Status Active Problem Recommendation Dietitian Recommendations/Changes Continue [address] will order Ensure Plus High Protein 120mL 4x daily with medpass. Weight / BMI Weight Weight: 124 lb 5.451 oz Body Mass Index (BMI) 20.0 ABG / Lab / Microbiology Data Result Diagrams: 02/09/22 05:33 02/09/22 05:33 Laboratory: Laboratory Results - last 24 hr 02/08/22 16:33: POC Glucose 157 H 02/08/22 21:23: POC Glucose 119 H 02/09/22 05:33: WBC 7.5, RBC 2.41 L, Hgb 8.8 L, Hct 26.8 L, MCV 111.2 H, MCH 36.5 H, MCHC 32.8, RDW Std Deviation 63.8 H, RDW Coeff of Teressa 15.7 H, Plt Count 151, MPV 10.1, Immature Gran % (Auto) 1.100 H, Neut % (Auto) 63.0, Lymph % (Auto) 18.7 L, Sebastian % (Auto) 15.0 H, Eos % (Auto) 1.7, Baso % (Auto) 0.5, Absolute Neuts (auto) 4.7, Absolute Lymphs (auto) 1.41, Nucleated RBC % 0 02/09/22 05:33: Sodium 137, Potassium 2.8 L, Chloride 99, Carbon Dioxide 29.0, Anion Gap 9, BUN 5 L, Creatinine 0.63, Estim Creat Clear Calc 98.29, Est GFR (MDRD) Af Amer 131, Est GFR (MDRD) Non-Af 108, BUN/Creatinine Ratio 8.0 L, Glucose 127 H, Calcium 8.5, Phosphorus 2.9, Magnesium 1.7, Total Bilirubin 8.70 H, AST 46 H, ALT 16, Alkaline Phosphatase 139 H, Total Protein 5.1 L, Albumin 1.9 L, Globulin 3.2, Albumin/Globulin Ratio 0.6 L 02/09/22 06:56: POC Glucose 124 H 02/09/22 07:01: PT 18.5 H, INR 1.6, APTT 35.5 Microbiology: Microbiology 02/03/22 21:12 Urine, Clean Catch Urine Culture - Final Escherichia coli Radiography Diagnostic Testing: Radiology Impression Paracentesis Ultrasound 02/08/22 08:00 IMPRESSION: Ultrasound guided paracentesis. Electronically Signed: Denzel Quijano MD at 14:31 EDT , D/C Instructions Discharge Diet: 6 Cup Fluid Restriction Call your doctor if you observe: Fever of 101 or Higher, Shortness of breath, Dizziness, Fainting spells, Swelling in the ankles, Chest pain and Increased palpitations (irregular heartbeat) Meaningful Use Info Meaningful Use Diagnoses (Choose all that apply): None applicable Discharge Plan Admission Admit Date/Time: 02/03/22 22:54 Attending Provider: Damien Valdovinos Primary Care Provider: Valerie Mullins Consulting Providers: Cielo Roque ; Sai Aparicio Instructions Patient Instructions: ANDRES RN Paracentesis Dc Additional Instructions / Restrictions: Follow-up with your PCP to obtain a BMP to monitor your renal function as well as your potassium Discharge Orders/Prescriptions Prescriptions: New spironolactone [Aldactone] 25 mg tablet 25 mg PO BID Qty: 120 0RF lactulose 20 gram/30 mL solution 20 g PO BID Qty: 3000 0RF furosemide 40 mg Tablet 40 mg PO DAILY Qty: 30 0RF prednisone 20 mg Tablet 20 mg PO BREAKFAST Qty: 30 0RF midodrine 5 mg Tablet 10 mg PO TIDCM 30 Days Qty: 180 0RF potassium chloride 20 mEq tablet extended release 20 meq PO BID 30 Days Qty: 60 0RF Continued gabapentin 300 mg capsule 300 mg PO BID Label Comments: take 1 capsule by mouth three times a day as directed losartan 50 mg tablet 50 mg PO DAILY metformin 500 mg tablet 500 mg PO BID doxepin 75 mg capsule 150 mg PO QHS Label Comments: take 2 capsules by mouth at bedtime promethazine 25 mg tablet 25 mg PO Q6H PRN (Reason: Nausea) Label Comments: take 1 tablet by mouth every 6 hours if needed for nausea ursodiol 300 mg capsule 300 mg PO BID Label Comments: take 1 capsule by mouth twice a day vitamin E 268 mg (400 unit) Capsule 536 mg PO DAILY duloxetine 60 mg capsule,delayed release(DR/EC) 60 mg PO DAILY Label Comments: take 1 capsule by mouth once daily alprazolam 0.25 mg tablet 0.25 - 0.5 mg PO BID PRN (Reason: Anxiety) Label Comments: take 1-2 tablets by mouth twice a day if needed for anxiety for up to 90 DAYS Referrals / Follow Up: Valerie Mullins MD [Primary Care Provider] - 02/15/22 2:00 pm FriendDougie DO [Med Staff - Active Staff] - Within 2 Weeks Disposition Disposition (needs filled in before D/C Order can be placed): Home, Self Care Charges/Coding Visit Charges Inpatient E&M: 19563 Disch Hosp
[2022-02-09 12:30] LABS: Bedside Glucose 170 mg/dL (74-106)
[2022-02-09 14:02] VITALS: BP 119/62; PULSE 78; RESP 18; TEMP 36.7; O2SAT 94
== END 2022-02-09 14:54 | disposition home or self-care (01) | DRG 280 ==
LOC: ED 22:33 → MS3 22:59
PROVIDERS: Internal Medicine; Internal Medicine Gastroenterology; Admitting Provider Student in an Organized Health Care Education/Training Program; Emergency Provider Emergency Medicine; PCP Internal Medicine; Visit Provider Family Medicine
DX: K70.31 Alcoholic cirrhosis of liver with ascites (principal); K70.40 Alcoholic hepatic failure without coma; K85.20 Alcohol induced acute pancreatitis without necrosis or infection; Z76.82 Awaiting organ transplant status; E44.0 Moderate protein-calorie malnutrition; D63.8 Anemia in other chronic diseases classified elsewhere; N30.00 Acute cystitis without hematuria; E11.9 Type 2 diabetes mellitus without complications; B96.20 Unspecified Escherichia coli [E. coli] as the cause of diseases classified elsewhere; F10.20 Alcohol dependence, uncomplicated; F17.210 Nicotine dependence, cigarettes, uncomplicated; I10 Essential (primary) hypertension; E78.5 Hyperlipidemia, unspecified; E87.6 Hypokalemia; F17.290 Nicotine dependence, other tobacco product, uncomplicated; K70.11 Alcoholic hepatitis with ascites; F32.A Depression, unspecified; R29.6 Repeated falls; Y90.8 Blood alcohol level of 240 mg/100 ml or more; Z68.20 Body mass index [BMI] 20.0-20.9, adult; Z79.84 Long term (current) use of oral hypoglycemic drugs; Z79.899 Other long term (current) drug therapy; Z86.16 Personal history of COVID-19
CPT/HCPCS: 36415; 49083; 76705; 80048; 80053; 80076; 81001; 82105; 82945; 82962; 83615; 83690; 83735; 84100; 84157; 85025; 85610; 85730; 87077; 87086; 87088; 87186; 88108; 88305; 88313; 89050; 97802; 99283; 99406; J7040; P9047; A4216; J1940; J2405

== ENCOUNTER 2022-02-17 14:16 | Inpatient (IN) | payer MEDICAID, SELFPAY ==
[2022-02-17] VITALS (8 sets, daily range): BP systolic 95–106; BP diastolic 41–71; PULSE 85–96; RESP 12–17; TEMP 36.3–37.1; O2SAT 94–98; BMI 18.1; BMI 17.9
--- NOTE | 2022-02-17 15:21 | CT_ITS ---
INDICATION: fall, injury EXAMINATION: CT BRAIN - CT Head or Brain W/O Contrast Injection TECHNIQUE: Multiple axial images were obtained of the head without intravenous contrast. A radiation dose optimization technique was used for this scan. IV Contrast dosage and agent: None. COMPARISON: 01/12/2022 FINDINGS: There is a 2.2 x 2.6 x 0.9 cm subcutaneous soft tissue hematoma visualized in the left frontal scalp soft tissues, no underlying osseous abnormality is seen. No evidence of intra or extra-axial hemorrhage is seen. No evidence of parenchymal hemorrhages or contusions. No intracranial mass or mass effect. There is preservation of the santo/white matter interface. Posterior fossa structures are unremarkable. CSF SPACES: Appropriate for age. No hydrocephalus. Basal cisterns are patent. CALVARIUM, SKULL BASE, PARANASAL SINUSES AND MASTOID AIR CELLS: Clear. No discrete lytic or blastic abnormalities. ORBITS: Both globes, extraocular muscles, optic nerves and retrobulbar fat appear unremarkable. ASPECTS Score for Acute Strokes: 10 CT/Brain/Head without Contrast IMPRESSION: 2.6 cm left frontal scalp soft tissue hematoma. No evidence of traumatic intracranial pathology is seen. Electronically Signed: Justyn Manzo MD at 15:59 EDT Reading Location ID and State: [facility] / [place] Tel , Service support ,
--- NOTE | 2022-02-17 15:24 | EX.ED.DYSGE1 ---
HPI History of Present Illness Chief Complaint: Abd Pain Informant: patient Narrative Narrative: Patient is a 46 year old female with history of liver cirrhosis, alcohol abuse, DM, pancreatitis and alcohol abuse presenting with falls, weakness and increased abdominal swelling and discomfort. Patient states she had 2 paracentesis in the past week. Each 1 had about 2.5 L taken off. Patient states this was done at our hospital however chart review shows that she had 1150 mL taken off on 02/05 and she was admitted for GI eval. She was started on lactulose treatment. Patient states has been compliant with the lactulose take it twice a day however she notes she has not had a bowel movement in a couple of days. She continues have nausea and vomiting. Chart review shows that patient had ultrasound-guided paracentesis on 02/08 (11 days ago at our facility). Patient notes that she is been having multiple falls and falls 2-3 times a week. She fell yesterday as well as a week ago and at that time she did hit her head on the left side. She is complaining of left-sided rib pain from where she injured herself. She denies any fever or chills. She notes that she does not have any exercise tolerance and even after taking 2 steps starts to get short of breath. PFSH PFSH Medical History Alcoholism Anxiety Asthma Breast implant status Chronic diarrhea Cirrhosis COVID-19 Diabetes Diabetes Fatty liver Gastritis and duodenitis H. pylori infection HLD (hyperlipidemia) HTN (hypertension) Hypertension Migraines Nicotine abuse Pancreatitis Post-menopausal Recurrent acute pancreatitis Smoker Home Medications gabapentin 300 mg capsule 300 mg PO BID pain 08/11/21 [History Last Taken 02/16/22] doxepin 75 mg capsule 150 mg PO QHS mood 12/10/21 [History Last Taken 02/16/22] duloxetine 60 mg capsule,delayed release 60 mg PO DAILY depression 12/10/21 [History Last Taken 02/16/22] losartan 50 mg tablet 50 mg PO DAILY BP 12/10/21 [History Last Taken 02/16/22] metformin 500 mg tablet 500 mg PO BID Check with primary doctor 12/10/21 [History Last Taken 02/16/22] ursodiol 300 mg capsule 300 mg PO BID Check with primary doctor 12/10/21 [History Last Taken 02/16/22] vitamin E 268 mg (400 unit) capsule 536 mg PO DAILY SUPPLEMENT 12/10/21 [History Last Taken 02/16/22] alprazolam 0.25 mg tablet 0.25 - 0.5 mg PO BID PRN Anxiety 02/03/22 [History Last Taken 02/16/22] ondansetron 4 mg disintegrating tablet 4 mg PO Q8H PRN nausea and vomiting #14 tabs 02/09/22 [Rx Last Taken 02/17/22] furosemide 40 mg tablet 40 mg PO DAILY water 02/17/22 [History Last Taken 02/16/22] lactulose 20 gram/30 mL oral solution 20 g PO BID supplement 02/17/22 [History Last Taken 02/16/22] prednisone 20 mg tablet 20 mg PO BREAKFAST steroid 02/17/22 [History Last Taken 02/16/22] spironolactone 25 mg tablet (Aldactone) 25 mg PO BID bp 02/17/22 [History Last Taken Unknown] Allergy/AdvReac Type Severity Reaction Status Date / Time azithromycin [From Zithromax] AdvReac Diarrhea Verified 02/17/22 14:17 codeine AdvReac Nausea Verified 02/17/22 14:17 promethazine [From Phenergan] AdvReac Vomiting Verified 02/17/22 14:17 Family History Father Cancer Lung CA with tobacco use history. Heart disease Mother Cancer Hx breast CA. Diabetes Hypertension Surgical History H/O breast augmentation H/O: knee surgery Previous section S/P tonsillectomy and adenoidectomy Social History housing: other details: Lives at home, her 15, 16 year old children live with her. 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 substance use type: does not use ROS ROS ED Constitutional Constitutional ED: Denies chills or fever(s) Eyes Eyes: Denies change in vision ENT ENT ED: Denies rhinorrhea or sore throat Cardiovascular Cardiovascular: Denies chest pain Respiratory/Chest Respiratory/Chest: Denies cough Gastrointestinal Gastrointestinal: Reports abdominal pain, constipation, nausea and vomiting Musculoskeletal Musculoskeletal: Denies arthralgias or myalgias Integumentary Denies rash Neurologic Neurologic: Reports headache(s); Denies weakness Hematologic/Lymphatic Hematologic/Lymphatic: Reports easy bleeding and easy bruising EXAM Physical Exam Const Vital Signs: 02/17/22 14:17 02/17/22 16:00 Temperature 97.8 F Temperature Source Temporal Pulse Rate 96 Respiratory Rate 15 Blood Pressure 97/71 97/42 L Blood Pressure Mean 79 60 Pulse Ox 96 Oxygen Delivery Method Room Air Constitutional Narrative: Chronically ill-appearing, thin General Appearance ED: NAD HEENT Reports TM's clear and moist mucous membranes HEENT Narrative: Cephalhematoma to the left forehead with surrounding ecchymosis trauma Tympanic Membrane ED: Yes TM's clear Eyes PERRL and EOMs intact bilaterally General Eye ED: Yes scleral icterus Neck supple and no JVD Neck Narrative: No midline tenderness Chest Wall inspection of chest normal and palpation of chest normal Resp normal respiratory effort and clear to auscultation bilaterally Cardio regular rate, regular rhythm and no murmurs GI GI Narrative: Positive fluid wave, pronounced abdominal varices present Inspection: abdominal distention Palpation: soft; Negative for tender Back/Spine no CVA tenderness Extremity normal to inspection General Extremety ED: Negative for edema General Extremity: Negative for edema Neuro oriented x3 Neuro Narrative: No asterixis Sensorium / Orientation: alert Motor Exam: general weakness Psych mental status grossly normal Mood & Affect: anxious Skin Skin Narrative: Ecchymosis and scab on the left forehead General Skin Exam: jaundice MDM MDM MDM Narrative Medical decision making narrative: However generalized weakness and multiple falls as well as worsening abdominal ascites. Patient has a history of alcoholic cirrhosis of the liver and has required paracentesis in the past. During her last hospitalization of about 10 days ago she was started on a diuretic, spironolactone and Lasix, as well as lactulose and midodrine. Patient's had multiple falls and has head injury. CT of the brain obtained which does not show any acute intracranial process. She does not have any focal neurologic deficits. No asterixis on exam and her ammonia level is normal. Work-up shows a mild leukocytosis of 12.9, stable/improved anemia with a hemoglobin of 10.2 and normal platelets. Her INR is normal at 1.3. Sodium is low at 130, potassium is very low at 2.5, chloride is 82, bicarb is 37, creatinine is 2.54 which is significantly above her baseline of 0.6-1. Patient has a stable hyperbilirubinemia with a bilirubin today of 7 and alkaline phosphatase of 137. AST is 35 and ALT is 22. Her ammonia is negative. Urinalysis shows 500 with esterase, 5-10 white blood cells, significant squamous epithelial cell contamination and 1+ bacteria. Urine culture sent. Patient is given a dose of fentanyl for her pain associated with her recent fall. Rib series interpreted by myself as well as radiology does not show any acute process but does show an old healed left rib fracture. Case discussed with Dr. Arpit RAYA, as is not clear if patient could be developing hepatorenal syndrome versus dehydration/overdiuresis. He recommend starting patient on Zosyn to cover for SBP, increasing her midodrine, starting albumin, octreotide, lactulose and Xifaxan. This is relayed to admitting physician. Patient started antibiotics, midodrine, albumin and octreotide in the emergency room. Patient agreeable with admission. She started on potassium replacement in the ER. Lab Data Attestation: I reviewed the patient's lab results. Labs: Laboratory Results - last 24 hr 02/17/22 02/17/22 02/17/22 15:30 15:30 15:35 WBC RBC Hgb Hct MCV MCH MCHC RDW Std Deviation RDW Coeff of Teressa Plt Count MPV Immature Gran % (Auto) Neut % (Auto) Lymph % (Auto) [place] % (Auto) Eos % (Auto) Baso % (Auto) Absolute Neuts (auto) Absolute Lymphs (auto) Nucleated RBC % PT 15.6 H INR 1.3 Sodium Potassium Chloride Carbon Dioxide Anion Gap BUN Creatinine Estim Creat Clear Calc Est GFR (MDRD) Af Amer Est GFR (MDRD) Non-Af BUN/Creatinine Ratio Glucose Calcium Total Bilirubin Direct Bilirubin AST ALT Alkaline Phosphatase Ammonia Troponin I High Sens Total Protein Albumin Globulin Lipase Urine Color Olga Urine Clarity Sl. Cloudy Urine pH 6.0 Ur Specific [place] 1.010 Urine Protein 30 H Urine Glucose (UA) Normal Urine Ketones 5 H Urine Occult Blood 10 H Urine Nitrite Negative Urine Bilirubin 3 H Urine Urobilinogen 4 H Ur Leukocyte Esterase 500 H Urine RBC 0 SEEN Urine WBC 5-10 SEEN Ur Squamous Epith Cells 10-25 SEEN Urine Bacteria 1+ Urine Mucus 0 SEEN Urine Opiates Screen NEGATIVE Urine Methadone Screen NEGATIVE Ur Barbiturates Screen NEGATIVE Ur Phencyclidine Scrn POSITIVE H Ur Amphetamines Screen NEGATIVE MDMA (Ecstasy) Screen NEGATIVE U Benzodiazepines Scrn POSITIVE H Urine Cocaine Screen NEGATIVE U Cannabinoids Screen NEGATIVE Ur Drug Screen Comment Ethyl Alcohol 02/17/22 02/17/22 02/17/22 15:35 15:35 15:35 WBC 12.9 H RBC 2.75 L Hgb 10.2 L Hct 29.9 L MCV 108.7 H MCH 37.1 H MCHC 34.1 RDW Std Deviation 55.2 H RDW Coeff of Teressa 14.0 Plt Count 292 MPV 10.8 Immature Gran % (Auto) 0.400 Neut % (Auto) 80.6 H Lymph % (Auto) 11.2 L [place] % (Auto) 7.0 Eos % (Auto) 0.5 Baso % (Auto) 0.3 Absolute Neuts (auto) 10.4 H Absolute Lymphs (auto) 1.45 Nucleated RBC % 0 PT INR Sodium 130 L Potassium 2.5 L* Chloride 82 L Carbon Dioxide 37.0 H Anion Gap 11 BUN 21 H Creatinine 2.54 H Estim Creat Clear Calc 21.96 Est GFR (MDRD) Af Amer 26 L Est GFR (MDRD) Non-Af 22 L BUN/Creatinine Ratio 8.3 L Glucose 105 Calcium 9.9 Total Bilirubin 7.00 H Direct Bilirubin 6.06 H AST 75 H ALT 22 Alkaline Phosphatase 137 H Ammonia Troponin I High Sens 6 Total Protein 5.8 L Albumin 2.1 L Globulin 3.7 Lipase 195 Urine Color Urine Clarity Urine pH Ur Specific [place] Urine Protein Urine Glucose (UA) Urine Ketones Urine Occult Blood Urine Nitrite Urine Bilirubin Urine Urobilinogen Ur Leukocyte Esterase Urine RBC Urine WBC Ur Squamous Epith Cells Urine Bacteria Urine Mucus Urine Opiates Screen Urine Methadone Screen Ur Barbiturates Screen Ur Phencyclidine Scrn Ur Amphetamines Screen MDMA (Ecstasy) Screen U Benzodiazepines Scrn Urine Cocaine Screen U Cannabinoids Screen Ur Drug Screen Comment Ethyl Alcohol < 3.0 02/17/22 15:35 WBC RBC Hgb Hct MCV MCH MCHC RDW Std Deviation RDW Coeff of Teressa Plt Count MPV Immature Gran % (Auto) Neut % (Auto) Lymph % (Auto) [place] % (Auto) Eos % (Auto) Baso % (Auto) Absolute Neuts (auto) Absolute Lymphs (auto) Nucleated RBC % PT INR Sodium Potassium Chloride Carbon Dioxide Anion Gap BUN Creatinine Estim Creat Clear Calc Est GFR (MDRD) Af Amer Est GFR (MDRD) Non-Af BUN/Creatinine Ratio Glucose Calcium Total Bilirubin Direct Bilirubin AST ALT Alkaline Phosphatase Ammonia < 10.0 L Troponin I High Sens Total Protein Albumin Globulin Lipase Urine Color Urine Clarity Urine pH Ur Specific [place] Urine Protein Urine Glucose (UA) Urine Ketones Urine Occult Blood Urine Nitrite Urine Bilirubin Urine Urobilinogen Ur Leukocyte Esterase Urine RBC Urine WBC Ur Squamous Epith Cells Urine Bacteria Urine Mucus Urine Opiates Screen Urine Methadone Screen Ur Barbiturates Screen Ur Phencyclidine Scrn Ur Amphetamines Screen MDMA (Ecstasy) Screen U Benzodiazepines Scrn Urine Cocaine Screen U Cannabinoids Screen Ur Drug Screen Comment Ethyl Alcohol Radiography Diagnostic Testing: Clinical Impression(s) from Imaging Studies Brain CT 02/17/22 15:21 IMPRESSION: 2.6 cm left frontal scalp soft tissue hematoma. No evidence of traumatic intracranial pathology is seen. Electronically Signed: Justyn Manzo MD at 15:59 EDT , Ribs w/Chest X-Ray 02/17/22 15:55 IMPRESSION: RIBS: Old healed fracture of left ninth rib CHEST: Normal x-ray examination of the chest. Electronically Signed: Jose Gomez MD at 16:51 EDT , Rhythm Strip Rhythm Strip: Sinus Rhythm Rate: 78 Ectopy: None EKG Initial EKG: Attestation: I personally reviewed and interpreted this EKG as follows: Interpretation: Sinus Rhythm Comments: Normal sinus rhythm at a rate of 78 Normal axis Normal MA and QRS Prolonged QTC of 544 Low voltage QRS Nonspecific T wave changes Discharge Plan Dx/Rx/DC Orders Clinical Impression: DAMIR (acute kidney injury), History of alcohol abuse, Cirrhosis, Alcoholic cirrhosis of liver with ascites, Acute hypokalemia, Closed head injury Disposition Disposition: Acute Care Hospital [facility] Discharge Date/Time: 02/17/22 17:44
[2022-02-17 15:41] LABS: Mucous, Urine 0 SEEN /hpf (<or=2+); Red Blood Cells-Urine 0 SEEN /hpf (0-5)
[2022-02-17 15:44] LABS: Absolute Lymphocyte Count 1.45 X10^3/uL (0.83-4.51); Absolute Neutrophil Count 10.4 X10^3/uL (2.0-7.7); Basophil# 0.04 X10^3/uL; Basophil% 0.3 % (0-1); Eosinophil# 0.06 X10^3/uL; Eosinophils% 0.5 % (0-5); Hematocrit 29.9 % (37-47); Hemoglobin 10.2 g/dL (12.0-15.0); Lymphocyte # 1.45 X10^3/ul (0.83-4.51); Lymphocyte % 11.2 % (19-41); Mean Corp Hgb Conc 34.1 g/dL (32-36); Mean Corpuscular Hgb 37.1 pg (27.0-32.0); Mean Corpuscular Volume 108.7 fL (81-99); Mean Platelet Vol. 10.8 fl (6.2-12.0); Monocyte# 0.91 X10^3/uL; NRBC Flagged by Analyzer 0 % (0-5); Neutrophil # 10.42 X10^3/uL (2.7-7.7); Neutrophil % 80.6 % (47-70); Platelet Count 292 K/mm3 (150-450); RBC Distribution Width SD 55.2 fl (35.1-43.9); Red Blood Count 2.75 M/mm3 (4.2-5.4); White Blood Count 12.9 K/mm3 (4.4-11.0)
[2022-02-17 15:52] LABS: Color, Urine Amber (Yellow); Glucose, Dipstick Normal (Normal); Ketone-Dipstick 5 mg/dl (Negative); Leukocyte Esterase-Dipstick 500 /ul (Negative); Nitrite-Dipstick Negative (Negative); Occult Blood-Urine 10 /ul (Negative); Protein-Dipstick 30 mg/dl (Negative); Urine Clarity Sl. Cloudy (Clear); Urine Urobilinogen 4 mg/dl (Normal)
[2022-02-17 15:54] LABS: International Normalized Ratio 1.3; Prothrombin Time (Protime)PT. 15.6 SECONDS (11.7-14.9)
--- NOTE | 2022-02-17 15:55 | RAD_ITS ---
STUDY: X-RAY - BILATERAL RIBS WITH CHEST REASON FOR EXAM: Female, 46 years old. fall, pain TECHNIQUE - RIBS: 8 view(s) of the ribs. TECHNIQUE - CHEST: PA COMPARISON: None. FINDINGS - RIBS : Old healed fracture of the left ninth rib FINDINGS - CHEST: The lungs are clear and expanded. There is no demonstrated pleural abnormality. Normal size heart. Normal mediastinum and niurka. Normal visualized pulmonary arteries. Normal visualized aortic arch and descending thoracic aorta. Normal visualized thoracic spine. Normal visualized, clavicles, and shoulders. Old healed fracture of left ninth rib There is no demonstrated abnormality of the visualized soft tissue structures of the upper abdomen. RAD/Ribs Jesus Min 4V w/PA Chest IMPRESSION: RIBS: Old healed fracture of left ninth rib CHEST: Normal x-ray examination of the chest. Electronically Signed: Jose Gomez MD at 16:51 EDT ,
[2022-02-17 16:03] LABS: Bacteria 1+ /hpf (None Seen); Squamous Epithelial Cells - UA 10-25 SEEN /hpf (5-10); Urine Bilirubin Dipstick 3 mg/dL (Negative); White Blood Cells 5-10 SEEN /hpf (0-5)
[2022-02-17 16:25] LABS: Alcohol, Blood (Medical)-Serum < 3.0 mg/dL
[2022-02-17 16:26] LABS: AST(SGOT) 75 U/L (15-37); Alanine Aminotransfer ALT/SGPT 22 U/L (13-56); Albumin, Serum 2.1 g/dL (3.2-5.0); Alkaline Phosphatase 137 U/L (45-117); Anion Gap 11 (5-15); BUN 21 mg/dL (7-18); BUN/Creat Ratio 8.3 RATIO (10-20); Bilirubin, Direct 6.06 mg/dL (0.00-0.30); Calcium,Total 9.9 mg/dL (8.5-10.1); Chloride 82 mmol/L (98-107); Creatinine, Serum 2.54 mg/dL (0.55-1.02); EST Glomerular Filtration Rate 22 mL/min (>60); Est Glom Filt Rate - Afr Amer 26 mL/min (>60); Estimated Creatinine Clearance 21.96 ml/min; Globulin 3.7 g/dL (2.2-4.2); Glucose 105 mg/dL (74-106); Lipase 195 U/L (73-393); Potassium 2.5 mmol/L (3.5-5.1); Protein, Total 5.8 g/dL (6.4-8.2); Sodium Level 130 mmol/L (136-145); Troponin-I HS 6 pg/mL (3.0-54.0)
[2022-02-17 16:52] LABS: Amphetamine Urine VISTA NEGATIVE (<1000 ng/mL); Barbiturate Urine VISTA NEGATIVE (< 200 ng/mL); Benzodiazepine Urine VISTA POSITIVE (< 200 ng/mL); Cocaine Urine VISTA NEGATIVE (< 300 ng/mL); Ecstacy Urine VISTA NEGATIVE (< 500 ng/mL); Methadone Urine VISTA NEGATIVE (< 300 ng/mL); PCP Urine VISTA POSITIVE (< 25 ng/mL); THC Urine VISTA NEGATIVE (< 50 ng/mL); Vista UDS pH Range 6
[2022-02-17 17:01] LABS: Ammonia < 10.0 umol/L (11-32)
[2022-02-17] MEDS: fentaNYL 100 MCG/2 ML Ampul 50 MCG IV (17:04)
[2022-02-17] MEDS: Midodrine HCl 5 MG Tablet 10 MG PO (17:28)
[2022-02-17] MEDS: 0.9% Normal Saline 1,000 ML 999 ML IV (17:29)
[2022-02-17] MEDS: Potassium Chloride 10mEq/100mL 10 MEQ/100 ML IV.SOLN. 100 MEQ IV BOLUS ×4 (17:29→21:27)
--- NOTE | 2022-02-17 17:38 | ED.RN ---
3 RNs attempted to get a second IV on patient-all unsuccessful at this time.
--- NOTE | 2022-02-17 18:09 | HP.PCM.HOS_ITS ---
HPI - General General Date of Admission: 02/17/22 Date of Service: 02/17/22 HPI Narrative DAVID TATE, is a 46 F with a PMh as outlined who presents via the ED on 02/17/2022 with a complaint of generalised weakness, nausea, vomiting and abdominal pain. She has a history of liver cirrhosis due to alcohol and was recently discharged 2 weeks ago after she had paracentesis. She says she has had some further paracentesis since then. She denied any fever, chills, chest pain, palpitations, or any urinary symptoms. She also complained of several falls recently due to weakness and lethargy. Review of systems is otherwise negative Vitals in the ED were BP of 95/41, OK of 85, RR of 17 and temp of 97.4F, with oxygen sats of 97% on room air. CBC showed wbc of 12.9, hb of 10.2 and platelets of 292. INR was 1.3. Chemistry showed sodium of 130, potassium of 2.5 and Cr of 2.54; baseline Cr is 0.63. Total bilirubin is 7, wiht direct bilirubin of 6.06 and AST is 75. Ammonia level is <10. Urinalysis showed 1+ bacteria. Urinalysis was positive for phencyclidine and benzodiazepine. CT of the brain showed a 2.6cm left frontal soft tissue hematoma with no acute intracranial pathology. XRay of the chest showed old healed fracture of the left ninth rib, and CXR showed no other acute cardiopulmonary pathology otherwise. PFSH Medical History Alcoholism Anxiety Asthma Breast implant status Chronic diarrhea Cirrhosis COVID-19 Diabetes Diabetes Fatty liver Gastritis and duodenitis H. pylori infection HLD (hyperlipidemia) HTN (hypertension) Hypertension Migraines Nicotine abuse Pancreatitis Post-menopausal Recurrent acute pancreatitis Smoker Home Medications gabapentin 300 mg capsule 300 mg PO BID pain 08/11/21 [History Last Taken 02/16/22] doxepin 75 mg capsule 150 mg PO QHS mood 12/10/21 [History Last Taken 02/16/22] duloxetine 60 mg capsule,delayed release 60 mg PO DAILY depression 12/10/21 [History Last Taken 02/16/22] losartan 50 mg tablet 50 mg PO DAILY BP 12/10/21 [History Last Taken 02/16/22] metformin 500 mg tablet 500 mg PO BID Check with primary doctor 12/10/21 [History Last Taken 02/16/22] ursodiol 300 mg capsule 300 mg PO BID Check with primary doctor 12/10/21 [History Last Taken 02/16/22] vitamin E 268 mg (400 unit) capsule 536 mg PO DAILY SUPPLEMENT 12/10/21 [History Last Taken 02/16/22] alprazolam 0.25 mg tablet 0.25 - 0.5 mg PO BID PRN Anxiety 02/03/22 [History Last Taken 02/16/22] ondansetron 4 mg disintegrating tablet 4 mg PO Q8H PRN nausea and vomiting #14 tabs 02/09/22 [Rx Last Taken 02/17/22] furosemide 40 mg tablet 40 mg PO DAILY water 02/17/22 [History Last Taken 02/16/22] lactulose 20 gram/30 mL oral solution 20 g PO BID supplement 02/17/22 [History Last Taken 02/16/22] prednisone 20 mg tablet 20 mg PO BREAKFAST steroid 02/17/22 [History Last Taken 02/16/22] spironolactone 25 mg tablet (Aldactone) 25 mg PO BID bp 02/17/22 [History Last Taken Unknown] Allergy/AdvReac Type Severity Reaction Status Date / Time azithromycin [From Zithromax] AdvReac Diarrhea Verified 02/17/22 14:17 codeine AdvReac Nausea Verified 02/17/22 14:17 promethazine [From Phenergan] AdvReac Vomiting Verified 02/17/22 14:17 Family History Father Cancer Lung CA with tobacco use history. Heart disease Mother Cancer Hx breast CA. Diabetes Hypertension Surgical History H/O breast augmentation H/O: knee surgery Previous section S/P tonsillectomy and adenoidectomy Social History housing: other details: Lives at home, her 15, 16 year old children live with her. 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 substance use type: does not use ROS Review of Systems ROS Unobtainable: Denies due to encephalopathy Constitutional Constitutional: Reports fatigue, malaise and weakness; Denies anorexia, change in weight, chills or fever(s) Eyes Eyes: Denies change in vision ENT HEENT: Denies dysphagia, headache(s), nasal congestion or sore throat Cardiovascular Cardiovascular: Denies chest pain, dyspnea on exertion, edema, lightheadedness, orthopnea, palpitations, paroxysmal nocturnal dyspnea, rapid heart rate or syncope Respiratory/Chest Respiratory/Chest: Denies cough, dyspnea, productive cough, shortness of breath at rest or shortness of breath with exertion Gastrointestinal Gastrointestinal: Reports nausea and vomiting; Denies abdominal pain, constipation, diarrhea, dyspepsia, hematemesis or loose stools Genitourinary Genitourinary: Denies burning urination, dysuria or hematuria Musculoskeletal Musculoskeletal: Denies arthralgias Psychiatric Psychiatric: Denies anxiety or depression Hematologic/Lymphatic Hematologic/Lymphatic: Denies anemia Vital Signs Vital Signs Vital Signs: 02/17/22 14:17 02/17/22 16:00 02/17/22 17:39 Temperature 97.8 F 98.1 F Temperature Source Temporal Temporal Pulse Rate 96 89 Respiratory Rate 15 12 Blood Pressure 97/71 97/42 L 101/52 L Blood Pressure Mean 79 60 68 Pulse Ox 96 98 Oxygen Delivery Method Room Air Room Air Weight Weight: 110 lb 10.753 oz Body Mass Index (BMI) 17.9 Physical Exam Const alert, oriented x3 and no apparent distress General Appearance: cooperative HEENT normocephalic, head/scalp atraumatic and hearing grossly normal bilaterally HEENT Narrative: dry oral mucosal membranes Eyes PERRL, EOMs intact bilaterally and conjunctivae normal Eyes Narrative: jaundice Neck no lymphadenopathy, supple and no JVD Resp normal respiratory effort, no retractions, no use of accessory muscles and clear to auscultation bilaterally Cardio regular rate, regular rhythm, S1 normal heart sound, S2 normal heart sound and no murmurs GI GI Narrative: abdomen distended, generalised tenderness with mild guarding, but no rebound tenderness. Hepatomegaly, but no splenomegaly Extremity normal to inspection, full ROM and no clubbing, cyanosis or edema Neuro oriented x3, CN's II-XII intact bilaterally, moves all extremities and no focal motor deficits Sensorium / Orientation: awake Motor Exam: strength 5/5 throughout Psych affect normal Results Lab / Micro Data Result Diagrams: 02/17/22 15:35 02/17/22 15:35 Labs: Laboratory Results - last 24 hr 02/17/22 15:30: Urine Opiates Screen NEGATIVE, Urine Methadone Screen NEGATIVE, Ur Barbiturates Screen NEGATIVE, Ur Phencyclidine Scrn POSITIVE H, Ur Amphetamines Screen NEGATIVE, MDMA (Ecstasy) Screen NEGATIVE, U Benzodiazepines Scrn POSITIVE H, Urine Cocaine Screen NEGATIVE, U Cannabinoids Screen NEGATIVE, Ur Drug Screen Comment 02/17/22 15:30: Urine Color Olga, Urine Clarity Sl. Cloudy, Urine pH 6.0, Ur Specific [place] 1.010, Urine Protein 30 H, Urine Glucose (UA) Normal, Urine Ketones 5 H, Urine Occult Blood 10 H, Urine Nitrite Negative, Urine Bilirubin 3 H, Urine Urobilinogen 4 H, Ur Leukocyte Esterase 500 H, Urine RBC 0 SEEN, Urine WBC 5-10 SEEN, Ur Squamous Epith Cells 10-25 SEEN, Urine Bacteria 1+, Urine Mucus 0 SEEN 02/17/22 15:35: PT 15.6 H, INR 1.3 02/17/22 15:35: Ethyl Alcohol < 3.0 02/17/22 15:35: WBC 12.9 H, RBC 2.75 L, Hgb 10.2 L, Hct 29.9 L, MCV 108.7 H, MCH 37.1 H, MCHC 34.1, RDW Std Deviation 55.2 H, RDW Coeff of Teressa 14.0, Plt Count 292, MPV 10.8, Immature Gran % (Auto) 0.400, Neut % (Auto) 80.6 H, Lymph % (Auto) 11.2 L, [place] % (Auto) 7.0, Eos % (Auto) 0.5, Baso % (Auto) 0.3, Absolute Neuts (auto) 10.4 H, Absolute Lymphs (auto) 1.45, Nucleated RBC % 0 02/17/22 15:35: Sodium 130 L, Potassium 2.5 L*, Chloride 82 L, Carbon Dioxide 37.0 H, Anion Gap 11, BUN 21 H, Creatinine 2.54 H, Estim Creat Clear Calc 21.96, Est GFR (MDRD) Af Amer 26 L, Est GFR (MDRD) Non-Af 22 L, BUN/Creatinine Ratio 8.3 L, Glucose 105, Calcium 9.9, Total Bilirubin 7.00 H, Direct Bilirubin 6.06 H , AST 75 H, ALT 22, Alkaline Phosphatase 137 H, Troponin I High Sens 6, Total Protein 5.8 L, Albumin 2.1 L, Globulin 3.7, Lipase 195 02/17/22 15:35: Ammonia < 10.0 L Radiology Impression Brain CT 02/17/22 15:21 IMPRESSION: 2.6 cm left frontal scalp soft tissue hematoma. No evidence of traumatic intracranial pathology is seen. Electronically Signed: Justyn Manzo MD at 15:59 EDT , Ribs w/Chest X-Ray 02/17/22 15:55 IMPRESSION: RIBS: Old healed fracture of left ninth rib CHEST: Normal x-ray examination of the chest. Electronically Signed: Jose Gomez MD at 16:51 EDT , Assessment & Plan Assessment/Plan (1) Elevated serum creatinine: (2) DAMIR (acute kidney injury): (3) SBP (spontaneous bacterial peritonitis): PLAN: Plan #Abdominal pain, concerning for spontaneous bacterial peritonitis * admit to PCU o/a of significant hypokalemia * having generalised abdominal pain * ED spoke to gastroeenterologist who recommeneded patient be treated for SBP * for diagnostic paracentesis tomorrow * start on IV zosyn * get blood cultures and urine cultures * hydrate with IVF NS * #DAMIR * CR is 2.54, with baseline Cr of 0.63 * likely pre renal, due to incessant nausea and vomiting as well as decreased intake * hydrate with IVF NS * if Cr doesnt improve, then get further renal workup including renal USG and consult nephrology as hepatorenal syndrome may be a probability * #Hypokalemia * potassium is 2.5. Will replace aggressively adn trend * #Liver cirrhosis due to acloholic liver disease, with ascites * on lactulose. GI recommends to start rifaximin and octreotide drip * bilirubin chronically elevated. * on lactulose * ammonia level is <10 * on furosemide, spironolactone and ursodiol * #Hyponatremia * sodium level is 130; last baseline was 137 * chloride is also low. Likely due to dehydration as she has not been eating and drinking well and also having nausea and vomiting * hydrate gently with IVF for now and trend sodium * #Hypertension * on losartan * #Type 2 diabetes mellitus: hold metformin o.a of kidney injury DVT prophylaxis: SCDs Code status: full code * Patient counseled extensively about different types of CODE STATUS including full code, DNR CCA and DNR CCA. Patient elects to be full code. * Total [id number] time 16 minutes. Charges/Coding Visit Charges Inpatient E&M: 33441 Init Hosp L3 Procedures Hospitalists Procedures: 26860 Advncd Care Plan 30 Min
[2022-02-17] MEDS: Ondansetron 4 MG/2 ML Vial IV (19:50)
[2022-02-17] MEDS: Gabapentin 300 MG Capsule PO (23:10)
[2022-02-17] MEDS: Lactulose 20 GM/30 ML UDC PO (23:12)
[2022-02-17] MEDS: DOXEPIN HCL 50 MG CAPSULE 150 MG PO (23:12)
[2022-02-17] MEDS: Ursodiol 250 MG Tablet PO (23:12)
[2022-02-17] MEDS: Spironolactone 25 MG Tablet PO (23:13)
[2022-02-17] MEDS: rifAXIMin 550 MG Tablet PO (23:14)
[2022-02-17] MEDS: 0.9% Normal Saline 1,000 ML 125 ML IV (23:17)
[2022-02-17] MEDS: Albumin Human 25% (50 mL) 12.5 GM/50 ML IV.SOLN IV (23:39)
[2022-02-17 23:41] LABS: Bedside Glucose 144 mg/dL (74-106)
[2022-02-17] MEDS: oxyCODONE 5 MG Tablet PO (23:52)
[2022-02-17] MEDS: proCHLORPERazine 10 MG/2 ML Vial 5 MG IV (23:56)
[2022-02-18] VITALS (12 sets, daily range): BP systolic 97–130; BP diastolic 57–82; PULSE 77–96; RESP 16–18; TEMP 36.4–37.3; O2SAT 92–98
[2022-02-18 05:00] LABS: Absolute Lymphocyte Count 0.89 X10^3/uL (0.83-4.51); Absolute Neutrophil Count 7.8 X10^3/uL (2.0-7.7); Basophil# 0.02 X10^3/uL; Basophil% 0.2 % (0-1); Eosinophil# 0.04 X10^3/uL; Eosinophils% 0.4 % (0-5); Hematocrit 25.7 % (37-47); Hemoglobin 8.8 g/dL (12.0-15.0); Lymphocyte # 0.89 X10^3/ul (0.83-4.51); Lymphocyte % 9.4 % (19-41); Mean Corp Hgb Conc 34.2 g/dL (32-36); Mean Corpuscular Hgb 36.8 pg (27.0-32.0); Mean Corpuscular Volume 107.5 fL (81-99); Mean Platelet Vol. 9.9 fl (6.2-12.0); Monocyte# 0.67 X10^3/uL; Monocyte% 7.1 % (0-10); NRBC Flagged by Analyzer 0 % (0-5); Neutrophil % 82.5 % (47-70); Platelet Count 210 K/mm3 (150-450); RBC Distribution Width CV 13.8 % (11.6-14.6); Red Blood Count 2.39 M/mm3 (4.2-5.4); White Blood Count 9.5 K/mm3 (4.4-11.0)
[2022-02-18 05:37] LABS: ALB/GLOB Ratio 0.6 RATIO (0.9-2.4); AST(SGOT) 46 U/L (15-37); Alanine Aminotransfer ALT/SGPT 15 U/L (13-56); Alkaline Phosphatase 108 U/L (45-117); Anion Gap 9 (5-15); BUN 18 mg/dL (7-18); BUN/Creat Ratio 12.3 RATIO (10-20); Calcium,Total 9.6 mg/dL (8.5-10.1); Chloride 92 mmol/L (98-107); Creatinine, Serum 1.46 mg/dL (0.55-1.02); EST Glomerular Filtration Rate 41 mL/min (>60); Est Glom Filt Rate - Afr Amer 49 mL/min (>60); Estimated Creatinine Clearance 37.75 ml/min; Globulin 3.2 g/dL (2.2-4.2); Glucose 163 mg/dL (74-106); LDH 163 U/L (84-246); Potassium 2.8 mmol/L (3.5-5.1); Protein, Total 5.2 g/dL (6.4-8.2); Sodium Level 135 mmol/L (136-145)
[2022-02-18 07:20] LABS: Bedside Glucose 144 mg/dL (74-106)
[2022-02-18] MEDS: Potassium Chloride 10mEq/100mL 10 MEQ/100 ML IV.SOLN. 100 MEQ IV BOLUS ×4 (09:38→14:16)
[2022-02-18] MEDS: Lactulose 20 GM/30 ML UDC PO ×2 (10:11→21:09)
[2022-02-18] MEDS: Losartan Potassium 50 MG Tablet PO (10:11)
[2022-02-18] MEDS: Spironolactone 25 MG Tablet PO ×2 (10:11→21:09)
[2022-02-18] MEDS: Ursodiol 250 MG Tablet PO ×2 (10:11→21:09)
[2022-02-18] MEDS: predniSONE 20 MG Tablet PO (10:11)
[2022-02-18] MEDS: Vitamin E 400 UNITS Capsule PO (10:12)
[2022-02-18] MEDS: DULoxetine Hcl 60 MG Capsule PO (10:12)
[2022-02-18] MEDS: oxyCODONE 5 MG Tablet PO ×2 (10:12→19:46)
[2022-02-18] MEDS: rifAXIMin 550 MG Tablet PO ×2 (10:12→21:09)
[2022-02-18] MEDS: Glucerna Shake 120 ML LIQUID PO ×2 (10:19→16:21)
[2022-02-18] MEDS: Ondansetron 4 MG/2 ML Vial IV ×2 (10:20→19:47)
[2022-02-18] MEDS: 0.9% Saline Lock 10 ML Syringe IV ×2 (10:20→19:51)
[2022-02-18] MEDS: Gabapentin 300 MG Capsule PO ×2 (10:28→21:09)
--- NOTE | 2022-02-18 12:12 | PN.HOSP_ITS ---
Subjective Subjective Patient seen and examined. She still complains of abdominal pain and says she still feels weak and lethargic. Review of systems otherwise negative. Potassium remains low at 2.8 today. Objective Data Objective Data Vital Signs: Vital Signs Temp Pulse Resp BP Pulse Ox O2 Del Method 98.2 F 84 18 111/80 95 Room Air 02/18/22 10:00 02/18/22 10:00 02/18/22 10:00 02/18/22 10:00 02/18/22 10:00 02/18/22 10:00 Oxygen Delivery Method Room Air Weight: 110 lb 10.753 oz Body Mass Index (BMI) 17.9 Intake & Output: Intake and Output for Last 24 Hours 02/16/22 02/17/22 02/18/22 23:59 23:59 23:59 Intake Total 350 / 350 1350 / 1350 Balance 350 / 350 1350 / 1350 Medical Nutrition Assessment Dietitian: Malnutrition Criteria Met Start: 02/18/22 10:02 Freq: Status: Active Protocol: Document 02/18/22 10:03 PHUONG (Rec: 02/18/22 10:03 [id number]) Nutrition Malnutrition Evidence of Malnutrition Exists Yes Malnutrition (moderate): Chronic Evidenced By Suboptimal Energy Intake ( Severe),Physical Changes ( Moderate) Clinical Problem Chronic Disease or Condition Related Malnutrition Etiology (moderate) related to ascites, alcoholic liver disease, nausea, and emesis Signs/Symptoms as evidenced by estimated PO intake <75% of estimated needs for >1 month and fat and muscle wasting to orbital and temporal regions Status Active Problem Recommendation Dietitian Recommendations/Changes Continue 1800 Consistent carbohydrate diet. Continue Glucerna 120mL 4x daily with medpass. Lab / Micro Data Result Diagrams: 02/18/22 04:54 02/18/22 04:54 Labs: Laboratory Results - last 24 hr 02/17/22 15:30: Urine Opiates Screen NEGATIVE, Urine Methadone Screen NEGATIVE, Ur Barbiturates Screen NEGATIVE, Ur Phencyclidine Scrn POSITIVE H, Ur Amphetamines Screen NEGATIVE, MDMA (Ecstasy) Screen NEGATIVE, U Benzodiazepines Scrn POSITIVE H, Urine Cocaine Screen NEGATIVE, U Cannabinoids Screen NEGATIVE, Ur Drug Screen Comment 02/17/22 15:30: Urine Color Olga, Urine Clarity Sl. Cloudy, Urine pH 6.0, Ur Specific [place] 1.010, Urine Protein 30 H, Urine Glucose (UA) Normal, Urine Ketones 5 H, Urine Occult Blood 10 H, Urine Nitrite Negative, Urine Bilirubin 3 H, Urine Urobilinogen 4 H, Ur Leukocyte Esterase 500 H, Urine RBC 0 SEEN, Urine WBC 5-10 SEEN, Ur Squamous Epith Cells 10-25 SEEN, Urine Bacteria 1+, Urine Mucus 0 SEEN 02/17/22 15:35: PT 15.6 H, INR 1.3 02/17/22 15:35: Ethyl Alcohol < 3.0 02/17/22 15:35: WBC 12.9 H, RBC 2.75 L, Hgb 10.2 L, Hct 29.9 L, MCV 108.7 H, MCH 37.1 H, MCHC 34.1, RDW Std Deviation 55.2 H, RDW Coeff of Teressa 14.0, Plt Count 292, MPV 10.8, Immature Gran % (Auto) 0.400, Neut % (Auto) 80.6 H, Lymph % (Auto) 11.2 L, Williams % (Auto) 7.0, Eos % (Auto) 0.5, Baso % (Auto) 0.3, Absolute Neuts (auto) 10.4 H, Absolute Lymphs (auto) 1.45, Nucleated RBC % 0 02/17/22 15:35: Sodium 130 L, Potassium 2.5 L*, Chloride 82 L, Carbon Dioxide 37.0 H, Anion Gap 11, BUN 21 H, Creatinine 2.54 H, Estim Creat Clear Calc 21.96, Est GFR (MDRD) Af Amer 26 L, Est GFR (MDRD) Non-Af 22 L, BUN/Creatinine Ratio 8.3 L, Glucose 105, Calcium 9.9, Total Bilirubin 7.00 H, Direct Bilirubin 6.06 H , AST 75 H, ALT 22, Alkaline Phosphatase 137 H, Troponin I High Sens 6, Total Protein 5.8 L, Albumin 2.1 L, Globulin 3.7, Lipase 195 02/17/22 15:35: Ammonia < 10.0 L 02/17/22 23:19: POC Glucose 144 H 02/18/22 04:54: WBC 9.5, RBC 2.39 L, Hgb 8.8 L, Hct 25.7 L, MCV 107.5 H, MCH 36.8 H, MCHC 34.2, RDW Std Deviation 54.0 H, RDW Coeff of Teressa 13.8, Plt Count 210, MPV 9.9, Immature Gran % (Auto) 0.400, Neut % (Auto) 82.5 H, Lymph % (Auto) 9.4 L, Williams % (Auto) 7.1, Eos % (Auto) 0.4, Baso % (Auto) 0.2, Absolute Neuts (auto) 7.8 H, Absolute Lymphs (auto) 0.89, Nucleated RBC % 0 02/18/22 04:54: Sodium 135 L, Potassium 2.8 L, Chloride 92 L, Carbon Dioxide 34.0 H, Anion Gap 9, BUN 18, Creatinine 1.46 H, Estim Creat Clear Calc 37.75, Est GFR (MDRD) Af Amer 49 L, Est GFR (MDRD) Non-Af 41 L, BUN/Creatinine Ratio 12.3, Glucose 163 H, Calcium 9.6, Total Bilirubin 6.80 H, AST 46 H, ALT 15, Alkaline Phosphatase 108, Lactate Dehydrogenase 163, Total Protein 5.2 L, Albumin 2.0 L, Globulin 3.2, Albumin/Globulin Ratio 0.6 L 02/18/22 07:01: POC Glucose 144 H Micro: Microbiology 02/17/22 15:30 Urine, Clean Catch Urine Culture - Preliminary Presumptive E. coli Radiography Diagnostic Testing: Radiology Impression Brain CT 02/17/22 15:21 IMPRESSION: 2.6 cm left frontal scalp soft tissue hematoma. No evidence of traumatic intracranial pathology is seen. Electronically Signed: Justyn Manzo MD at 15:59 EDT , Ribs w/Chest X-Ray 02/17/22 15:55 IMPRESSION: RIBS: Old healed fracture of left ninth rib CHEST: Normal x-ray examination of the chest. Electronically Signed: Jose Gomez MD at 16:51 EDT , Rhythm Strip Rhythm Strip: Sinus Rhythm Rate: 78 Ectopy: None Physical Exam Const alert, oriented x3 and no apparent distress General Appearance: cooperative HEENT normocephalic, head/scalp atraumatic and hearing grossly normal bilaterally Eyes PERRL, EOMs intact bilaterally and conjunctivae normal Eyes Narrative: jaundice Neck no lymphadenopathy, supple and no JVD Resp normal respiratory effort, no retractions, no use of accessory muscles and clear to auscultation bilaterally Cardio regular rate, regular rhythm, S1 normal heart sound, S2 normal heart sound and no murmurs GI GI Narrative: abdomen distended, generalised tenderness with mild guarding, but no rebound tenderness. Hepatomegaly, but no splenomegaly Extremity normal to inspection, full ROM and no clubbing, cyanosis or edema Neuro oriented x3, CN's II-XII intact bilaterally, moves all extremities and no focal motor deficits Sensorium / Orientation: awake Motor Exam: strength 5/5 throughout Psych affect normal Assessment & Plan Assessment/Plan (1) Elevated serum creatinine: (2) DAMIR (acute kidney injury): (3) SBP (spontaneous bacterial peritonitis): PLAN: Plan #Abdominal pain, concerning for spontaneous bacterial peritonitis * still having abdominal pain * for diagnostic and therapeutic paracentesis today * on IV zosyn * blood and urine cultures pending * patient was hydrated with IVF NS * gastroenterology on board * #DAMIR * CR is down to 1.46, from 2.54 on admission. * continue very gentle hydration with IVF * * #Hypokalemia * potassium is 2.8 today. Will replace aggressively adn trend. Check magnesium levels * #Liver cirrhosis due to acloholic liver disease, with ascites * on lactulose, octreotide drip and rifaximin. * bilirubin chronically elevated. * on lactulose * ammonia level is <10 * on furosemide, spironolactone and ursodiol * #Hyponatremia * sodium level has improved to 135 today from 130 on admission after hydration with IVF * #Hypertension * on losartan * #Type 2 diabetes mellitus: hold metformin o/a of kidney injury. ISS. Accuchcks ACHS DVT prophylaxis: SCDs Code status: full code Charges/Coding Visit Charges Inpatient E&M: 69311 Subs Hosp L2
[2022-02-18 12:20] LABS: Bedside Glucose 132 mg/dL (74-106)
[2022-02-18 13:01] LABS: Magnesium 1.3 mg/dL (1.6-2.6)
--- NOTE | 2022-02-18 13:22 | CASEMGMT ---
SKIP reviewed patient's chart and noted patient has a history of alcoholism and SW spoke with her last visit. SW went to patient's room, however she had a visitor. SW briefly checked in and introduced self. SW asked patient how she is doing and she said right now not so good. She will be having a procedure later today that may offer some relief. SW let her know SW can check back. Christy Brambila [employer]OSH
[2022-02-18] MEDS: 0.9% Normal Saline 1,000 ML 125 ML IV (13:39)
--- NOTE | 2022-02-18 14:20 | CASEMGMT ---
ROGER LEIJA chart review: Patient was admitted 02/03-02/09/22 for ascites due to alcohol liver disease, patient had paracentesis and discharged home on lactulose and script for outpatient therapy. Patient returned to [facility] ED on 02/17/22 for abdominal pain. Patient states she was taken all medications as prescribed. Patient admitted for hypokalemia and DAMIR, receiving K+ replacement. GI consulted and concern for SBP, blood and urine cultures pending. Patient scheduled for diagnostic paracentesis. Patient had appts scheduled prior to previous discharge. Patient states she cancelled or rescheduled her appts either due to not feeling well or having to work. ROGER LEIJA educated patient on the importance of attending follow-up appointment to prevent readmission to hospital and for follow-up care. Patient voiced understanding. Patient voiced no further concerns at discharge. CM to continue to follow this patient and plan for a safe discharge.
--- NOTE | 2022-02-18 14:55 | FLU_PTH ---
PATIENT: DAVID TATE LOC: [facility] U#:[id number] AGE/SX: 46/F ROOM: [facility] RE02/17/[address]: Dr. Cielo Roque MD : 1975 BED: 1 DIS: 02/20/2022 SPEC #: [id number] RECD: 02/18/22 15:36 STATUS: MILDRED CAMACHO #: [id number] REECE: 02/18/22 14:[address]: Cielo Roque DEPT: CYTOLOGY RECD BY: Nkechi Douglas ENTERED: 02/19/22 07:54 SP TYPE: Fluid OTHR DR: Dr. Valerie Mullins MD Tissues: PARACENTESIS FLUID Procedures: Special Stain Group II Surgery Specimen Level IV Cytospin Fluid HEADER OPERATION: Paracentesis right lower quadrant PRE-OP DIAGNOSIS: Ascites TISSUE SUBMITTED: Paracentesis fluid for cytology DIAGNOSIS CYTOLOGY Paracentesis fluid for cytology (cytospin and cell block): Negative for malignant cells. AM:robby 02/22/2022 CYTOLOGY STUDY Slides are reviewed. CYTOLOGY GROSS Received is 100 ml of yellow hazy fluid labeled with the patient's name and and designated per the requisition as paracentesis. Submitted for cytology preparation including cell block. / robby 02/19/2022 TC:5 CPT: 92434, 80426
[2022-02-18] MEDS: Lidocaine 2% (10 ml mdv) 10 ML Vial INFILT (15:13)
[2022-02-18] MEDS: Insulin Lispro 100 UNIT/ML INSULN.PEN SC ×2 (16:21→21:37)
[2022-02-18 16:36] LABS: Body Fluid Mononuclear WBC # 0.152 10^3/uL; Body Fluid Mononuclear WBC % 84.5 %; Body Fluid Polynuclear WBC # 0.028 10^3/uL; Body Fluid Polynuclear WBC % 15.5 %
[2022-02-18 16:41] LABS: Bedside Glucose 186 mg/dL (74-106)
--- NOTE | 2022-02-18 17:30 | CON.PCM_ITS ---
Assessment & Plan Assessment/Plan (1) Cirrhosis: PLAN: Patient has a history of alcoholic cirrhosis of the liver and has required paracentesis in the past.? During her last hospitalization of about 10 days ago she was started on a diuretic, spironolactone and Lasix, as well as lactulose and midodrine.? Patient's had multiple falls and has head injury.? CT of the brain obtained which does not show any acute intracranial process.? She does not have any focal neurologic deficits.? No asterixis on exam and her ammonia level is normal.? Work-up shows a mild leukocytosis of 12.9, stable/improved anemia with a hemoglobin of 10.2 and normal platelets.? Her INR is normal at 1.3.? Sodium is low at 130, potassium is very low at 2.5, chloride is 82, bicarb is 37, creatinine is 2.54 which is significantly above her baseline of 0.6-1.? Patient has a stable hyperbilirubinemia with a bilirubin today of 7 and alkaline phosphatase of 137.? AST is 35 and ALT is 22.? Her ammonia is negative.? Urinalysis shows 500 with esterase, 5-10 white blood cells, significant squamous epithelial cell contamination and 1+ bacteria.? Urine culture sent. Patient is given a dose of fentanyl for her pain associated with her recent fall.? Rib series interpreted by myself as well as radiology does not show any acute process but does show an old healed left rib fracture.? She is on on Zosyn to cover for SBP, increasing her midodrine, starting albumin, octreotide, lactulose and Xifaxan.? ? Patient started antibiotics, midodrine, albumin and octreotide in the emergency room.? (2) Ascites: PLAN: There was no sign of SBP on her recent paracentesis. (3) Alcoholism: PLAN: She denies any recent intake of alcohol. I still recommend steroid therapy for her. I will 40 mg of prednisone per day (4) Acute hypokalemia: PLAN: . Recent potassium was 2.9. She will continue to give potassium replacement. (5) SBP (spontaneous bacterial peritonitis): PLAN: Zosyn therapy stopped as her paracentesis fluid did not show any signs of SBP. HPI Consult Data Date of Consult: 02/18/22 Attending Care Provider: Cirrhosis HPI Narrative Reason for Consultation: Cirrhosis HPI Narrative: ZARA TATE, is a 46 F who present to the ED with worsening abdominal distention.? Well-known to the GI service due to history cirrhosis with a meld of 10 that recently increased to 20, child Montes class B/C complicated by encephalopathy. ?At that visit we discussed positive H pylori result on biopsy from EGD done 08/13/21. We treated H pylori with Pepto bismol, levofloxacin, pantoprazole and metronidazole. I spoke to her PCP Dr Mullins yesterday; pt had been unclear about treatment for H. pylori infection.? Today Zara states she finished all the meds for treating H. pylori.? She says the only new medication she has been prescribed that she is not taking is ursodiol, since she was not sure what it was for. Liver, core biopsy: Consistent with cirrhosis with extensive macro-and microvesicular steatosis. We have referred her to [facility] liver transplant group for, age; we have received notification from the liver transplant nurse coordinator that they have been in contact with her; Zara reports she has orders to get blood work done as the initial step, then the consult appointment will be made. She reports she has not been feeling well; tired, no energy. She has been more forgetful, this really bothers her son.? We did not use lactulose before because of her significant diarrhea, however she would like to try lactulose now.? She denies any bleeding.? She denies pruritus.? No jaundice.? She has had some falls recently, she attributes that to being very weak, she would like to do physical therapy. She presented via the ED on 02/03/2022 with a complaint of abdominal pain and swelling. She complained of abdominal pain and swelling over the last few days prior to admission, with associated nausea and vomiting. She has never had a paracentesis. She was sent to the ED for the possible paracentesis. She underwent large-volume paracentesis and did not show any signs of SBP. She is back to the ED on 02/17/2022 with again worsening lethargy and a distended abdomen. She underwent (paracentesis today and it did not show any of SBP. Yesterday when she was admitted she was noted to be in acute renal failure. In the ED I requested that she get started on octreotide, midodrine and albumin. Her kidney function has gotten better but she is still in a lot of pain. I monica an alcohol level and it was almost 3. During her last 3 years she has had alcohol levels in the 200s and 300s. She was treated last visit for acute alcoholic hepatitis after her Madrey score was at 50. She was treated with prednisone and there was not continued as an outpatient. Her bilirubin was 9 and is down to 6.8. AST and ALT are 46/15, alkaline phosphatase 108. PFSH Medical History Alcoholism Anxiety Asthma Breast implant status Chronic diarrhea Cirrhosis COVID-19 Diabetes Diabetes Fatty liver Gastritis and duodenitis H. pylori infection HLD (hyperlipidemia) HTN (hypertension) Hypertension Migraines Nicotine abuse Pancreatitis Post-menopausal Recurrent acute pancreatitis Smoker Home Medications gabapentin 300 mg capsule 300 mg PO BID pain 08/11/21 [History Last Taken 02/16/22] doxepin 75 mg capsule 150 mg PO QHS mood 12/10/21 [History Last Taken 02/16/22] duloxetine 60 mg capsule,delayed release 60 mg PO DAILY depression 12/10/21 [History Last Taken 02/16/22] losartan 50 mg tablet 50 mg PO DAILY BP 12/10/21 [History Last Taken 02/16/22] metformin 500 mg tablet 500 mg PO BID Check with primary doctor 12/10/21 [History Last Taken 02/16/22] ursodiol 300 mg capsule 300 mg PO BID Check with primary doctor 12/10/21 [History Last Taken 02/16/22] vitamin E 268 mg (400 unit) capsule 536 mg PO DAILY SUPPLEMENT 12/10/21 [History Last Taken 02/16/22] alprazolam 0.25 mg tablet 0.25 - 0.5 mg PO BID PRN Anxiety 02/03/22 [History Last Taken 02/16/22] ondansetron 4 mg disintegrating tablet 4 mg PO Q8H PRN nausea and vomiting #14 tabs 02/09/22 [Rx Last Taken 02/17/22] furosemide 40 mg tablet 40 mg PO DAILY water 02/17/22 [History Last Taken 02/16/22] lactulose 20 gram/30 mL oral solution 20 g PO BID supplement 02/17/22 [History Last Taken 02/16/22] prednisone 20 mg tablet 20 mg PO BREAKFAST steroid 02/17/22 [History Last Taken 02/16/22] spironolactone 25 mg tablet (Aldactone) 25 mg PO BID bp 02/17/22 [History Last Taken Unknown] Allergy/AdvReac Type Severity Reaction Status Date / Time azithromycin [From Zithromax] AdvReac Diarrhea Verified 02/17/22 14:17 codeine AdvReac Nausea Verified 02/17/22 14:17 promethazine [From Phenergan] AdvReac Vomiting Verified 02/17/22 14:17 Family History Father Cancer Lung CA with tobacco use history. Heart disease Mother Cancer Hx breast CA. Diabetes Hypertension Surgical History H/O breast augmentation H/O: knee surgery Previous section S/P tonsillectomy and adenoidectomy Social History housing: other details: Lives at home, her 15, 16 year old children live with her. 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 substance use type: does not use Medical Records Data Medical Nutrition Assessment Dietitian: Malnutrition Criteria Met Start: 02/18/22 10:02 Freq: Status: Active Protocol: Document 02/18/22 10:03 PHUONG (Rec: 02/18/22 10:03 [id number]) Nutrition Malnutrition Evidence of Malnutrition Exists Yes Malnutrition (moderate): Chronic Evidenced By Suboptimal Energy Intake ( Severe),Physical Changes ( Moderate) Clinical Problem Chronic Disease or Condition Related Malnutrition Etiology (moderate) related to ascites, alcoholic liver disease, nausea, and emesis Signs/Symptoms as evidenced by estimated PO intake <75% of estimated needs for >1 month and fat and muscle wasting to orbital and temporal regions Status Active Problem Recommendation Dietitian Recommendations/Changes Continue 1800 Consistent carbohydrate diet. Continue Glucerna 120mL 4x daily with medpass. Lab / Micro Data Result Diagrams: 02/18/22 04:54 02/18/22 04:54 Labs: Laboratory Results - last 24 hr 02/17/22 23:19: POC Glucose 144 H 02/18/22 04:54: WBC 9.5, RBC 2.39 L, Hgb 8.8 L, Hct 25.7 L, MCV 107.5 H, MCH 36.8 H, MCHC 34.2, RDW Std Deviation 54.0 H, RDW Coeff of Teressa 13.8, Plt Count 210, MPV 9.9, Immature Gran % (Auto) 0.400, Neut % (Auto) 82.5 H, Lymph % (Auto) 9.4 L, Donley % (Auto) 7.1, Eos % (Auto) 0.4, Baso % (Auto) 0.2, Absolute Neuts (auto) 7.8 H, Absolute Lymphs (auto) 0.89, Nucleated RBC % 0 02/18/22 04:54: Sodium 135 L, Potassium 2.8 L, Chloride 92 L, Carbon Dioxide 34.0 H, Anion Gap 9, BUN 18, Creatinine 1.46 H, Estim Creat Clear Calc 37.75, Est GFR (MDRD) Af Amer 49 L, Est GFR (MDRD) Non-Af 41 L, BUN/Creatinine Ratio 12.3, Glucose 163 H, Calcium 9.6, Total Bilirubin 6.80 H, AST 46 H, ALT 15, Alkaline Phosphatase 108, Lactate Dehydrogenase 163, Total Protein 5.2 L, Albumin 2.0 L, Globulin 3.2, Albumin/Globulin Ratio 0.6 L 02/18/22 04:54: Magnesium 1.3 L 02/18/22 07:01: POC Glucose 144 H 02/18/22 11:57: POC Glucose 132 H 02/18/22 14:55: Fluid WBC 0.180, Fluid Tot Cell Count 0.210 H, Fld Polynuclear WBCs # 0.028, Fld Polynuclear WBCs % 15.5, Fluid Mononuclear WBCs 0.152, Fld Mononuclear WBCs % 84.5 02/18/22 16:16: POC Glucose 186 H 02/18/22 16:30: Ethyl Alcohol 3.0 Micro: Microbiology 02/17/22 15:30 Urine, Clean Catch Urine Culture - Preliminary Presumptive E. coli Rhythm Strip Rhythm Strip: Sinus Rhythm Rate: 78 Ectopy: None Radiology Impression Paracentesis Ultrasound 02/18/22 18:32 IMPRESSION: Ultrasound guided paracentesis. Electronically Signed: Justyn Manzo MD at 16:57 EDT , Charges/Coding Visit Charges Inpatient E&M: 41540 Init Hosp L3
[2022-02-18 17:49] LABS: Auto B Fluid Analyzer BKGD Ct COUNTS W/IN LIMITS (W/IN LIMITS); Lymphocytes 27 %; Macrophages 23 %; Mesothelial Cells 11 %; Monocytes 12 %; Neutrophil (Segs) 27 %
[2022-02-18 17:50] LABS: Appearance/Body Fluid CLEAR; Color/Body Fluid YELLOW; Red Cell Count/Body Fluid 44 /mm3; Source- Body Fluid PERITONEAL FLUID
[2022-02-18 17:52] LABS: Body Fluid QC Type(s) BF1Q
--- NOTE | 2022-02-18 18:32 | US_ITS ---
PROCEDURE: ULTRASOUND GUIDED PARACENTESIS CLINICAL HISTORY: Female, 46 years old. ASCITES PHYSICIAN: Marry Manzo MD INFORMED CONSENT: The risks, benefits, and alternatives to the procedure were explained to the patient. The specific risks of bleeding, infection, and damage to bowel were detailed and accepted. Witnessed informed consent was obtained. TECHNIQUES: The abdomen was ultrasonographically surveyed. An appropriate pocket of fluid was identified at the right lower quadrant. The skin was cleaned and prepped in the usual sterile fashion. Using ultrasound guidance, the peritoneal cavity was accessed with a 5-Canadian paracentesis needle/catheter system. The trocar was removed. A total of 950 ml straw-colored ascitic fluid was removed from the peritoneal cavity. The catheter was removed and a sterile dressing was applied. The procedure was well tolerated. The patient did not receive albumin during the procedure. # of Images: 10 US/Paracentesis with US IMPRESSION: Ultrasound guided paracentesis. Electronically Signed: Justyn Manzo MD at 16:57 EDT ,
[2022-02-18 19:44] LABS: Glucose, Body Fluid 177 mg/dL (40-70); LDH,Body Fluid 49 Units/l (Not Establ.); Protein, Body Fluid 1.9 g/dL (Not Establ.)
[2022-02-18] MEDS: DOXEPIN HCL 50 MG CAPSULE 150 MG PO (21:09)
[2022-02-19] VITALS (10 sets, daily range): BP systolic 109–140; BP diastolic 70–100; PULSE 76–97; RESP 12–18; TEMP 36.5–37.2; O2SAT 95–98
[2022-02-19 00:36] LABS: Bedside Glucose 194 mg/dL (74-106)
[2022-02-19] MEDS: oxyCODONE 5 MG Tablet PO ×4 (03:25→19:41)
[2022-02-19] MEDS: Morphine 2 MG/ML Syringe IV (04:44)
[2022-02-19] MEDS: 0.9% Saline Lock 10 ML Syringe IV (04:47)
[2022-02-19 06:33] LABS: Absolute Neutrophil Count 9.5 X10^3/uL (2.0-7.7); Basophil# 0.04 X10^3/uL; Basophil% 0.3 % (0-1); Eosinophil# 0.03 X10^3/uL; Eosinophils% 0.3 % (0-5); Hematocrit 35.1 % (37-47); Hemoglobin 10.5 g/dL (12.0-15.0); Lymphocyte % 9.5 % (19-41); Mean Corp Hgb Conc 29.9 g/dL (32-36); Mean Corpuscular Hgb 37.2 pg (27.0-32.0); Mean Corpuscular Volume 124.5 fL (81-99); Mean Platelet Vol. 10.5 fl (6.2-12.0); Monocyte# 0.84 X10^3/uL; Monocyte% 7.2 % (0-10); NRBC Flagged by Analyzer 0 % (0-5); POSITIVE MORPHOLOGY YES; Platelet Count 175 K/mm3 (150-450); RBC Distribution Width CV 14.2 % (11.6-14.6); RBC Distribution Width SD 66.2 fl (35.1-43.9); Red Blood Count 2.82 M/mm3 (4.2-5.4); White Blood Count 11.6 K/mm3 (4.4-11.0)
[2022-02-19 06:36] LABS: Differential Indicated SCAN CRITERIA MET
[2022-02-19 06:36] LABS: Bedside Glucose 166 mg/dL (74-106)
[2022-02-19] MEDS: Insulin Lispro 100 UNIT/ML INSULN.PEN SC ×2 (06:39→15:46)
[2022-02-19 06:55] LABS: Differential Comment SCANNED
[2022-02-19 06:56] LABS: ALB/GLOB Ratio 0.6 RATIO (0.9-2.4); AST(SGOT) 47 U/L (15-37); Alanine Aminotransfer ALT/SGPT 18 U/L (13-56); Albumin, Serum 2.2 g/dL (3.2-5.0); Alkaline Phosphatase 115 U/L (45-117); Anion Gap 9 (5-15); Anisocytosis 2+; BUN 14 mg/dL (7-18); Calcium,Total 9.2 mg/dL (8.5-10.1); Chloride 99 mmol/L (98-107); EST Glomerular Filtration Rate 63 mL/min (>60); Est Glom Filt Rate - Afr Amer 76 mL/min (>60); Estimated Creatinine Clearance 55.12 ml/min; Globulin 3.6 g/dL (2.2-4.2); Glucose 144 mg/dL (74-106); Macrocytosis 2+; Potassium 3.3 mmol/L (3.5-5.1); Protein, Total 5.8 g/dL (6.4-8.2); Sodium Level 137 mmol/L (136-145)
[2022-02-19] MEDS: predniSONE 20 MG Tablet PO (08:08)
[2022-02-19] MEDS: Glucerna Shake 120 ML LIQUID PO (08:17)
[2022-02-19] MEDS: Potassium Chloride Oral Tablet 20 MEQ 40 MEQ PO (08:17)
[2022-02-19] MEDS: Spironolactone 25 MG Tablet PO ×2 (10:14→23:05)
[2022-02-19] MEDS: DULoxetine Hcl 60 MG Capsule PO (10:14)
[2022-02-19] MEDS: Losartan Potassium 50 MG Tablet PO (10:14)
[2022-02-19] MEDS: Ursodiol 250 MG Tablet PO ×2 (10:15→23:06)
[2022-02-19] MEDS: rifAXIMin 550 MG Tablet PO ×2 (10:15→23:06)
[2022-02-19] MEDS: Vitamin E 400 UNITS Capsule PO (10:15)
[2022-02-19 11:40] LABS: Bedside Glucose 176 mg/dL (74-106)
--- NOTE | 2022-02-19 12:29 | PN.HOSP_ITS ---
Subjective Subjective Patient seen and examined. She still complains of abdominal pain. She denies any nausea, vomiting, fever, chills, chestpain, palpitations, dizziness or diarrhea. Review of systems is otherwise negative. Objective Data Objective Data Vital Signs: Vital Signs Temp Pulse Resp BP Pulse Ox O2 Del Method 99 F 92 14 121/84 H 98 Room Air 02/19/22 10:10 02/19/22 10:10 02/19/22 10:10 02/19/22 10:10 02/19/22 10:10 02/19/22 10:10 Oxygen Delivery Method [3] Room Air Oxygen Delivery Method [2] Room Air Oxygen Delivery Method [1 ( Room Air Initial Baseline)] Oxygen Delivery Method Room Air Weight: 110 lb 10.753 oz Body Mass Index (BMI) 17.9 Intake & Output: Intake and Output for Last 24 Hours 02/17/22 02/18/22 02/19/22 23:59 23:59 23:59 Intake Total 350 / 350 2951 / 2951 1100 / 1100 Output Total 952 / 952 Balance 350 / 350 1998 1100 / 1100 Medical Nutrition Assessment Dietitian: Malnutrition Criteria Met Start: 02/18/22 10:02 Freq: Status: Active Protocol: Document 02/18/22 10:03 (Rec: 02/18/22 10:03 [id number]) Nutrition Malnutrition Evidence of Malnutrition Exists Yes Malnutrition (moderate): Chronic Evidenced By Suboptimal Energy Intake ( Severe),Physical Changes ( Moderate) Clinical Problem Chronic Disease or Condition Related Malnutrition Etiology (moderate) related to ascites, alcoholic liver disease, nausea, and emesis Signs/Symptoms as evidenced by estimated PO intake <75% of estimated needs for >1 month and fat and muscle wasting to orbital and temporal regions Status Active Problem Recommendation Dietitian Recommendations/Changes Continue 1800 Consistent carbohydrate diet. Continue Glucerna 120mL 4x daily with medpass. Lab / Micro Data Result Diagrams: 02/19/22 05:40 02/19/22 05:40 Labs: Laboratory Results - last 24 hr 02/18/22 04:54: Magnesium 1.3 L 02/18/22 08:00: Fluid Glucose 177 H, Fluid Total Protein 1.9, Fluid LDH 49 02/18/22 14:55: Fluid Source PERITONEAL FLUID, Fluid Color YELLOW, Fluid A ppearance CLEAR, Fluid WBC 0.180, Fluid RBC 44, Fluid Tot Cell Count 0.210 H, Fld Polynuclear WBCs # 0.028, Fld Polynuclear WBCs % 15.5, Fluid Mononuclear WBCs 0.152, Fld Mononuclear WBCs % 84.5, Fluid Neutrophils 27, Fluid Lymphocytes 27, Fluid Monocytes 12, Fluid Macrophages 23, Fld Mesothelial Cells 11, Fl Pathologist Comment May follow, Fluid Comment 2 SEE COMMENT 02/18/22 16:16: POC Glucose 186 H 02/18/22 16:30: Ethyl Alcohol 3.0 02/18/22 21:20: POC Glucose 194 H 02/19/22 05:40: Sodium 137, Potassium 3.3 L, Chloride 99, Carbon Dioxide 29.0, Anion Gap 9, BUN 14, Creatinine 1.00, Estim Creat Clear Calc 55.12, Est GFR (MDRD) Af Amer 76, Est GFR (MDRD) Non-Af 63, BUN/Creatinine Ratio 14.0, Glucose 144 H, Calcium 9.2, Total Bilirubin 5.50 H, AST 47 H, ALT 18, Alkaline Phosphatase 115, Total Protein 5.8 L, Albumin 2.2 L, Globulin 3.6, Albumin/Globulin Ratio 0.6 L 02/19/22 05:40: WBC 11.6 H, RBC 2.82 L, Hgb 10.5 L, Hct 35.1 L, MCV 124.5 H D, MCH 37.2 H, MCHC 29.9 L D, RDW Std Deviation 66.2 H, RDW Coeff of Teressa 14.2, Plt Count 175, MPV 10.5, Immature Gran % (Auto) 0.700, Neut % (Auto) 82.0 H, Lymph % (Auto) 9.5 L, [place] % (Auto) 7.2, Eos % (Auto) 0.3, Baso % (Auto) 0.3, Absolute Neuts (auto) 9.5 H, Absolute Lymphs (auto) 1.10, Nucleated RBC % 0, Differential Comment SCANNED, Anisocytosis 2+, Macrocytosis 2+ 02/19/22 06:14: POC Glucose 166 H 02/19/22 11:21: POC Glucose 176 H Micro: Microbiology 02/17/22 15:30 Urine, Clean Catch Urine Culture - Final Presumptive E. coli Radiography Diagnostic Testing: Radiology Impression Paracentesis Ultrasound 02/18/22 18:32 IMPRESSION: Ultrasound guided paracentesis. Electronically Signed: Justyn Manzo MD at 16:57 EDT , Rhythm Strip Rhythm Strip: Sinus Rhythm Rate: 78 Ectopy: None Physical Exam Const alert, oriented x3 and no apparent distress General Appearance: cooperative HEENT normocephalic, head/scalp atraumatic, hearing grossly normal bilaterally and moist oral mucous membranes Head and Scalp: normocephalic Mouth: oral and palatal mucosa normal Eyes PERRL, EOMs intact bilaterally and conjunctivae normal Eyes Narrative: jaundice Neck no lymphadenopathy, supple and no JVD Resp normal respiratory effort, no retractions, no use of accessory muscles and clear to auscultation bilaterally Cardio regular rate, regular rhythm, S1 normal heart sound, S2 normal heart sound and no murmurs GI GI Narrative: abdomen distended, generalised tenderness with mild guarding, but no rebound tenderness. Hepatomegaly, but no splenomegaly Extremity normal to inspection, full ROM and no clubbing, cyanosis or edema Neuro oriented x3, CN's II-XII intact bilaterally, moves all extremities and no focal motor deficits Sensorium / Orientation: awake and alert Motor Exam: strength 5/5 throughout Psych affect normal Assessment & Plan Assessment/Plan (1) Elevated serum creatinine: (2) DAMIR (acute kidney injury): (3) SBP (spontaneous bacterial peritonitis): PLAN: Plan #Abdominal pain, concerning for spontaneous bacterial peritonitis * still having abdominal pain; describes it as burning, like reflux pain * had diagnostic and therapeutic paracentesis yesterday; GI evaluated patient and didnt think she met the criteria for SBP, so recommended antibiotics be discontinued. * urine culture growing E coli. * de-escalate IV zosyn to ceftriaxone in light of urine culture results. * gastroenterology on board * Will start on PO famotidine #UTI * urine culture growing E coli. * will give iV ceftriaxone * #DAMIR * resolved * * #Hypokalemia * potassium is 3.3 today. Will replace and trend * #Liver cirrhosis due to acloholic liver disease, with ascites * on lactulose, octreotide drip and rifaximin. * bilirubin chronically elevated. * on lactulose * ammonia level is <10 * on furosemide, spironolactone and ursodiol * #Hyponatremia * sodium level has improved to 135 today from 130 on admission after hydration with IVF * #Hypertension * on losartan * #Type 2 diabetes mellitus: hold metformin o/a of kidney injury. ISS. Accuchcks ACHS DVT prophylaxis: SCDs Code status: full code Charges/Coding Visit Charges Inpatient E&M: 92000 Subs Hosp L2
[2022-02-19 13:38] LABS: Pathologist Comment/Body Fluid Reviewed
[2022-02-19] MEDS: Famotidine 20 MG Tablet PO ×2 (13:53→23:05)
--- NOTE | 2022-02-19 15:35 | NURSING ---
This RN is taking over care at this time.
[2022-02-19 16:25] LABS: Bedside Glucose 190 mg/dL (74-106)
--- NOTE | 2022-02-19 18:00 | PCM.PROGNOTE ---
Subjective Subjective Patient is feeling a little bit better as today. She has 4 friends at the bedside. She did have 1 bowel movement today. She has not been going to the bathroom much. She does feel better since undergoing large-volume paracentesis yesterday but she still feels very bloated. She states that she is having some memory issues and is not sleeping well but overall she feels at baseline. She denies any fevers. She denies any dizziness. She says that her appetite is still very poor. Objective Data Objective Data Vital Signs: Vital Signs Temp Pulse Resp BP Pulse Ox O2 Del Method 98.5 F 76 12 140/89 H 98 Room Air 02/19/22 16:00 02/19/22 16:00 02/19/22 16:00 02/19/22 16:00 02/19/22 16:00 02/19/22 16:00 Oxygen Delivery Method [3] Room Air Oxygen Delivery Method [2] Room Air Oxygen Delivery Method [1 ( Room Air Initial Baseline)] Oxygen Delivery Method Room Air Weight: 110 lb 10.753 oz Body Mass Index (BMI) 17.9 Intake & Output: Intake and Output for Last 24 Hours 02/17/22 02/18/22 02/19/22 23:59 23:59 23:59 Intake Total 350 / 350 2951 / 2951 1868.96 / 1868.96 Output Total 952 / 952 Balance 350 / 350 1998 1868.96 / 1868.96 Medical Nutrition Assessment Dietitian: Malnutrition Criteria Met Start: 02/18/22 10:02 Freq: Status: Active Protocol: Document 02/18/22 10:03 PHUONG (Rec: 02/18/22 10:03 [id number]) Nutrition Malnutrition Evidence of Malnutrition Exists Yes Malnutrition (moderate): Chronic Evidenced By Suboptimal Energy Intake ( Severe),Physical Changes ( Moderate) Clinical Problem Chronic Disease or Condition Related Malnutrition Etiology (moderate) related to ascites, alcoholic liver disease, nausea, and emesis Signs/Symptoms as evidenced by estimated PO intake <75% of estimated needs for >1 month and fat and muscle wasting to orbital and temporal regions Status Active Problem Recommendation Dietitian Recommendations/Changes Continue 1800 Consistent carbohydrate diet. Continue Glucerna 120mL 4x daily with medpass. Lab / Micro Data Result Diagrams: 02/19/22 05:40 02/19/22 05:40 Labs: Laboratory Results - last 24 hr 02/18/22 08:00: Fluid Glucose 177 H, Fluid Total Protein 1.9, Fluid LDH 49 02/18/22 14:55: Fl Pathologist Comment Reviewed 02/18/22 21:20: POC Glucose 194 H 02/19/22 05:40: Sodium 137, Potassium 3.3 L, Chloride 99, Carbon Dioxide 29.0, Anion Gap 9, BUN 14, Creatinine 1.00, Estim Creat Clear Calc 55.12, Est GFR (MDRD) Af Amer 76, Est GFR (MDRD) Non-Af 63, BUN/Creatinine Ratio 14.0, Glucose 144 H, Calcium 9.2, Total Bilirubin 5.50 H, AST 47 H, ALT 18, Alkaline Phosphatase 115, Total Protein 5.8 L, Albumin 2.2 L, Globulin 3.6, Albumin/Globulin Ratio 0.6 L 02/19/22 05:40: WBC 11.6 H, RBC 2.82 L, Hgb 10.5 L, Hct 35.1 L, MCV 124.5 H D, MCH 37.2 H, MCHC 29.9 L D, RDW Std Deviation 66.2 H, RDW Coeff of Teressa 14.2, Plt Count 175, MPV 10.5, Immature Gran % (Auto) 0.700, Neut % (Auto) 82.0 H, Lymph % (Auto) 9.5 L, [place] % (Auto) 7.2, Eos % (Auto) 0.3, Baso % (Auto) 0.3, Absolute Neuts (auto) 9.5 H, Absolute Lymphs (auto) 1.10, Nucleated RBC % 0, Differential Comment SCANNED, Anisocytosis 2+, Macrocytosis 2+ 02/19/22 06:14: POC Glucose 166 H 02/19/22 11:21: POC Glucose 176 H 02/19/22 15:44: POC Glucose 190 H Micro: Microbiology 02/17/22 15:30 Urine, Clean Catch Urine Culture - Final Presumptive E. coli Rhythm Strip Rhythm Strip: Sinus Rhythm Rate: 78 Ectopy: None Physical Exam Const alert, oriented x3 and no apparent distress General Appearance: cooperative HEENT normocephalic, head/scalp atraumatic, hearing grossly normal bilaterally and moist oral mucous membranes Head and Scalp: normocephalic Mouth: oral and palatal mucosa normal Eyes PERRL, EOMs intact bilaterally and conjunctivae normal Eyes Narrative: jaundice Neck no lymphadenopathy, supple and no JVD Resp normal respiratory effort, no retractions, no use of accessory muscles and clear to auscultation bilaterally Cardio regular rate, regular rhythm, S1 normal heart sound, S2 normal heart sound and no murmurs GI GI Narrative: abdomen distended, generalised tenderness with mild guarding, but no rebound tenderness. Hepatomegaly, but no splenomegaly Extremity normal to inspection, full ROM and no clubbing, cyanosis or edema Neuro oriented x3, CN's II-XII intact bilaterally, moves all extremities and no focal motor deficits Sensorium / Orientation: awake and alert Motor Exam: strength 5/5 throughout Psych affect normal Assessment & Plan Assessment/Plan (1) Alcoholism: PLAN: She says that she has not had any alcohol within the last 6 months. I checked her alcohol level today and it was 3. I do not think she has been drinking any alcohol. (2) Ascites: PLAN: She has refractory ascites to diuretic therapy. She also has acute kidney injury from dehydration and possible diuretic therapy. She is status post large-volume paracentesis and she did receive albumin. (3) Acute hypokalemia: PLAN: Hypokalemia secondary to malnutrition status posttreatment with IV potassium (4) SBP (spontaneous bacterial peritonitis): PLAN: There are no signs of spontaneous bacterial peritonitis at this time. She does not need antibiotic therapy. (5) DAMIR (acute kidney injury): PLAN: Acute kidney injury likely secondary to prerenal azotemia. No signs of hepatorenal syndrome. Octreotide can be stopped. I would continue midodrine as there are some studies that show that it can reduce ascites formation. She does not need a fluid restriction. (6) Cirrhosis: PLAN: Her current meld is 20. She has a child class C. She does not have significant anemia, leukopenia or thrombocytopenia secondary to cirrhosis. I sent her to [facility] for evaluation. She does not want to go back there and wants to go to [facility]. We can send a referral as an outpatient. I would recommend lactulose 30 cc p.o. every 6 hours and Xifaxan 5 to 50 mg twice a day. She is down 65 pounds and is suffering from sarcopenia from cirrhosis. She is continue to decompensate very fast. Charges/Coding Visit Charges Inpatient E&M: 00587 Subs Hosp L3
[2022-02-19] MEDS: Lactulose 20 GM/30 ML UDC PO (23:05)
[2022-02-19] MEDS: Gabapentin 300 MG Capsule PO (23:05)
[2022-02-19] MEDS: DOXEPIN HCL 50 MG CAPSULE 150 MG PO (23:06)
[2022-02-20] VITALS (10 sets, daily range): BP systolic 122–152; BP diastolic 71–113; PULSE 74–107; RESP 18; TEMP 36.4–36.6; O2SAT 95–100
[2022-02-20 00:51] LABS: Bedside Glucose 127 mg/dL (74-106)
[2022-02-20] MEDS: Ondansetron ODT 4 MG Tablet PO (04:57)
[2022-02-20] MEDS: oxyCODONE 5 MG Tablet PO ×2 (05:02→09:31)
[2022-02-20 07:21] LABS: Bedside Glucose 143 mg/dL (74-106)
[2022-02-20 09:17] LABS: Absolute Lymphocyte Count 1.84 X10^3/uL (0.83-4.51); Basophil# 0.04 X10^3/uL; Basophil% 0.2 % (0-1); Eosinophils% 0.6 % (0-5); Hematocrit 34.2 % (37-47); Hemoglobin 11.1 g/dL (12.0-15.0); Lymphocyte # 1.84 X10^3/ul (0.83-4.51); Lymphocyte % 11.3 % (19-41); Mean Corp Hgb Conc 32.5 g/dL (32-36); Mean Corpuscular Hgb 35.6 pg (27.0-32.0); Mean Corpuscular Volume 109.6 fL (81-99); Mean Platelet Vol. 9.5 fl (6.2-12.0); Monocyte# 1.19 X10^3/uL; Monocyte% 7.3 % (0-10); NRBC Flagged by Analyzer 0 % (0-5); Neutrophil # 13.04 X10^3/uL (2.7-7.7); Platelet Count 237 K/mm3 (150-450); RBC Distribution Width CV 13.7 % (11.6-14.6); RBC Distribution Width SD 55.5 fl (35.1-43.9); Red Blood Count 3.12 M/mm3 (4.2-5.4); White Blood Count 16.3 K/mm3 (4.4-11.0)
[2022-02-20] MEDS: predniSONE 20 MG Tablet PO (09:31)
[2022-02-20] MEDS: Gabapentin 300 MG Capsule PO (09:31)
[2022-02-20] MEDS: Spironolactone 25 MG Tablet PO (09:32)
[2022-02-20] MEDS: Lactulose 20 GM/30 ML UDC PO (09:32)
[2022-02-20] MEDS: DULoxetine Hcl 60 MG Capsule PO (09:33)
[2022-02-20] MEDS: Famotidine 20 MG Tablet PO (09:34)
[2022-02-20] MEDS: Vitamin E 400 UNITS Capsule PO (09:34)
[2022-02-20] MEDS: Ursodiol 250 MG Tablet PO (09:34)
[2022-02-20] MEDS: Losartan Potassium 50 MG Tablet PO (09:34)
[2022-02-20] MEDS: rifAXIMin 550 MG Tablet PO (09:35)
[2022-02-20 09:45] LABS: ALB/GLOB Ratio 0.6 RATIO (0.9-2.4); AST(SGOT) 44 U/L (15-37); Alanine Aminotransfer ALT/SGPT 19 U/L (13-56); Albumin, Serum 2.4 g/dL (3.2-5.0); Alkaline Phosphatase 110 U/L (45-117); Anion Gap 11 (5-15); BUN 11 mg/dL (7-18); BUN/Creat Ratio 15.3 RATIO (10-20); Calcium,Total 9.3 mg/dL (8.5-10.1); Chloride 98 mmol/L (98-107); Creatinine, Serum 0.72 mg/dL (0.55-1.02); EST Glomerular Filtration Rate 92 mL/min (>60); Est Glom Filt Rate - Afr Amer 111 mL/min (>60); Estimated Creatinine Clearance 76.55 ml/min; Globulin 3.9 g/dL (2.2-4.2); Glucose 108 mg/dL (74-106); Potassium 3.1 mmol/L (3.5-5.1); Protein, Total 6.3 g/dL (6.4-8.2); Sodium Level 137 mmol/L (136-145)
[2022-02-20] MEDS: 0.9% Saline Lock 10 ML Syringe IV (11:21)
[2022-02-20 11:41] LABS: Bedside Glucose 145 mg/dL (74-106)
--- NOTE | 2022-02-20 14:44 | PCM.PROGNOTE ---
Subjective Subjective Patient states that she feels about the same. Her abdomen is becoming more distended as per the patient. She has not been able to urinate much. She denies any fevers. She did have 1 small bowel movement. Objective Data Objective Data Vital Signs: Vital Signs Temp Pulse Resp BP Pulse Ox O2 Del Method 97.5 F L 91 18 122/71 H 100 Room Air 02/20/22 09:50 02/20/22 11:00 02/20/22 09:50 02/20/22 09:50 02/20/22 09:50 02/20/22 09:50 Oxygen Delivery Method [3] Room Air Oxygen Delivery Method [2] Room Air Oxygen Delivery Method [1 ( Room Air Initial Baseline)] Oxygen Delivery Method Room Air Weight: 110 lb 10.753 oz Body Mass Index (BMI) 17.9 Intake & Output: Intake and Output for Last 24 Hours 02/18/22 02/19/22 02/20/22 23:59 23:59 23:59 Intake Total 2951 / 2951 2468.96 / 2468.96 550.63 / 550.63 Output Total 952 / 952 550 / 550 Balance 1998 1918.96 / 1918.96 550.63 / 550.63 Medical Nutrition Assessment Dietitian: Malnutrition Criteria Met Start: 02/18/22 10:02 Freq: Status: Active Protocol: Document 02/18/22 10:03 PHUONG (Rec: 02/18/22 10:03 [id number]) Nutrition Malnutrition Evidence of Malnutrition Exists Yes Malnutrition (moderate): Chronic Evidenced By Suboptimal Energy Intake ( Severe),Physical Changes ( Moderate) Clinical Problem Chronic Disease or Condition Related Malnutrition Etiology (moderate) related to ascites, alcoholic liver disease, nausea, and emesis Signs/Symptoms as evidenced by estimated PO intake <75% of estimated needs for >1 month and fat and muscle wasting to orbital and temporal regions Status Active Problem Recommendation Dietitian Recommendations/Changes Continue 1800 Consistent carbohydrate diet. Continue Glucerna 120mL 4x daily with medpass. Lab / Micro Data Result Diagrams: 02/20/22 09:00 02/20/22 09:00 Labs: Laboratory Results - last 24 hr 02/19/22 15:44: POC Glucose 190 H 02/19/22 23:04: POC Glucose 127 H 02/20/22 07:03: POC Glucose 143 H 02/20/22 09:00: Sodium 137, Potassium 3.1 L, Chloride 98, Carbon Dioxide 28.0, Anion Gap 11, BUN 11, Creatinine 0.72, Estim Creat Clear Calc 76.55, Est GFR (MDRD) Af Amer 111, Est GFR (MDRD) Non-Af 92, BUN/Creatinine Ratio 15.3, Glucose 108 H, Calcium 9.3, Total Bilirubin 5.30 H, AST 44 H, ALT 19, Alkaline Phosphatase 110, Total Protein 6.3 L, Albumin 2.4 L, Globulin 3.9, Albumin/Globulin Ratio 0.6 L 02/20/22 09:00: WBC 16.3 H, RBC 3.12 L, Hgb 11.1 L, Hct 34.2 L, MCV 109.6 H D, MCH 35.6 H, MCHC 32.5 D, RDW Std Deviation 55.5 H, RDW Coeff of Teressa 13.7, Plt Count 237, MPV 9.5, Immature Gran % (Auto) 0.600, Neut % (Auto) 80.0 H, Lymph % (Auto) 11.3 L, [place] % (Auto) 7.3, Eos % (Auto) 0.6, Baso % (Auto) 0.2, Absolute Neuts (auto) 13.0 H, Absolute Lymphs (auto) 1.84, Nucleated RBC % 0 02/20/22 11:17: POC Glucose 145 H Micro: Microbiology 02/17/22 15:30 Urine, Clean Catch Urine Culture - Final Presumptive E. coli Rhythm Strip Rhythm Strip: Sinus Rhythm Rate: 78 Ectopy: None Physical Exam Const alert, oriented x3 and no apparent distress General Appearance: cooperative HEENT normocephalic, head/scalp atraumatic, hearing grossly normal bilaterally and moist oral mucous membranes Head and Scalp: normocephalic Mouth: oral and palatal mucosa normal Eyes PERRL, EOMs intact bilaterally and conjunctivae normal Eyes Narrative: jaundice Neck no lymphadenopathy, supple and no JVD Resp normal respiratory effort, no retractions, no use of accessory muscles and clear to auscultation bilaterally Cardio regular rate, regular rhythm, S1 normal heart sound, S2 normal heart sound and no murmurs GI GI Narrative: abdomen distended, generalised tenderness with mild guarding, but no rebound tenderness. Hepatomegaly, but no splenomegaly Extremity normal to inspection, full ROM and no clubbing, cyanosis or edema Neuro oriented x3, CN's II-XII intact bilaterally, moves all extremities and no focal motor deficits Sensorium / Orientation: awake and alert Motor Exam: strength 5/5 throughout Psych affect normal Assessment & Plan Assessment/Plan (1) Ascites: PLAN: Status post removal of 5 L of fluid and administration of albumin. Her kidney function is already back down to normal. She is on antibiotic therapy. She has gained about 3 pounds. Recommend to start diuretic therapy back and see how her kidneys tolerate it. Recommend bladder scan with possible straight cath if she has more than 300 cc of urine. Continue antibiotic therapy. I am unsure why her white blood cell count is increasing. (2) Transaminitis: PLAN: . Transaminitis is improving. I suspect that some of it is from passive congestion along with subacute alcoholic hepatitis in the setting of cirrhosis. Recommend to continue steroid therapy. (3) Cirrhosis: PLAN: She is a child Montes C with a meld of 16-20. She is not showing any signs of overt encephalopathy but I recommend to increase her lactulose to 20 cc every 6 hours. Recommend to recheck an ammonia level. Recommend to continue Xifaxan 550 mg twice a day. I had a long talk with her with her friends regarding her prognosis without liver transplant. The conclusion was it was not very good for her without liver transplant due to the fact that she may be diuretic resistant and needing multiple paracentesis per week. A permanent catheter is not recommended for periodic ascites removal due to the infection risks.
--- NOTE | 2022-02-20 15:31 | DS.PCM_ITS ---
Providers Date of Admission: 02/17/22 Date of Discharge: 02/20/22 Primary Care Physician: Dr. Valerie Mullins MD Consultations 02/17/22 18:32 Consult: Gastroenterology Routine Consulting Provider: [facility] Reason for Consult: spontaneous bacterial peritonitis EMERGENT Consult: No MD Notified: Yes Date Notified: 02/17/22 Time Notified: 18:36 Method of Notification: Text Reason For Visit: HYPOKALEMIA,DAMIR Diagnosis Discharge Diagnosis (1) Ascites: Status: Acute Code(s): R18.8 - Other ascites (2) Transaminitis: Status: Acute Code(s): R74.01 - Elevation of levels of liver transaminase levels (3) Cirrhosis: Status: Acute Code(s): K74.60 - Unspecified cirrhosis of liver Plan #Abdominal pain, concerning for spontaneous bacterial peritonitis * still having abdominal pain; describes it as burning, like reflux pain * had diagnostic and therapeutic paracentesis yesterday; GI evaluated patient and didnt think she met the criteria for SBP, so recommended antibiotics be discontinued. * urine culture growing E coli. * de-escalate IV zosyn to ceftriaxone in light of urine culture results. * gastroenterology on board * Will start on PO famotidine #UTI * urine culture growing E coli. * will give iV ceftriaxone * #DAMIR * resolved * * #Hypokalemia * potassium is 3.3 today. Will replace and trend * #Liver cirrhosis due to acloholic liver disease, with ascites * on lactulose, octreotide drip and rifaximin. * bilirubin chronically elevated. * on lactulose * ammonia level is <10 * on furosemide, spironolactone and ursodiol * #Hyponatremia * sodium level has improved to 135 today from 130 on admission after hydration with IVF * #Hypertension * on losartan * #Type 2 diabetes mellitus: hold metformin o/a of kidney injury. ISS. Accuchcks ACHS DVT prophylaxis: SCDs Code status: full code Medications at Discharge Home Medications gabapentin 300 mg capsule 300 mg PO BID pain 08/11/21 doxepin 75 mg capsule 150 mg PO QHS mood 12/10/21 duloxetine 60 mg capsule,delayed release 60 mg PO DAILY depression 12/10/21 losartan 50 mg tablet 50 mg PO DAILY BP 12/10/21 metformin 500 mg tablet 500 mg PO BID Check with primary doctor 12/10/21 ursodiol 300 mg capsule 300 mg PO BID Check with primary doctor 12/10/21 vitamin E 268 mg (400 unit) capsule 536 mg PO DAILY SUPPLEMENT 12/10/21 alprazolam 0.25 mg tablet 0.25 - 0.5 mg PO BID PRN Anxiety 02/03/22 ondansetron 4 mg disintegrating tablet 4 mg PO Q8H PRN nausea and vomiting #14 tabs 02/09/22 prednisone 20 mg tablet 20 mg PO BREAKFAST steroid 02/17/22 spironolactone 25 mg tablet (Aldactone) 25 mg PO BID bp 02/17/22 ciprofloxacin HCl 500 mg tablet (Cipro) 500 mg PO Q12H #14 tabs 02/20/22 famotidine 20 mg tablet 20 mg PO BID #60 tabs 02/20/22 furosemide 40 mg tablet 40 mg PO BIDCM water #60 tabs 02/20/22 lactulose 20 gram/30 mL oral solution 20 g (30 mL) PO Q6H supplement #3,600 mL 02/20/22 metronidazole 500 mg tablet 500 mg PO Q8H #21 tabs 02/20/22 rifaximin 550 mg tablet (Xifaxan) 550 mg PO BID #60 tabs 02/20/22 Hospital Course Operations None Procedures Paracentesis Summary of Care Provided Minutes Spent on Discharge: 45 Hospital Course: DAVID TATE, is a 46 F with a PMh as outlined who presents via the ED on 02/17/2022 with a complaint of generalised weakness, nausea, vomiting and abdominal pain. She has a history of liver cirrhosis due to alcohol and was rece ntly discharged? 2 weeks ago after she had paracentesis. She says she has had some further paracentesis since then. She denied any fever, chills, chest pain, palpitations, or any urinary symptoms. She also complained of several falls recently due to weakness and lethargy. Review of systems is otherwise negative Vitals in the ED were BP of 95/41, NM of 85, RR of 17 and temp of 97.4F, with oxygen sats of 97% on room air. CBC showed wbc of 12.9, hb of 10.2 and platelets of 292. INR was 1.3. Chemistry showed sodium of 130, potassium of 2.5 and Cr of 2.54; baseline Cr is 0.63. Total bilirubin is 7, wiht direct bilirubin of 6.06 and AST is 75. Ammonia level is <10. Urinalysis showed 1+ bacteria. Urinalysis was positive for phencyclidine and benzodiazepine. CT of the brain showed a 2.6cm left frontal soft tissue hematoma with no acute intracranial pathology. XRay of the chest showed old healed fracture of the left ninth rib, and CXR showed no other acute cardiopulmonary pathology otherwise. She was admitted and managed for probable spontaneous bacterial peritonitis and UTI as well as debil ity with mechanical falls. She was started on IV zosyn due to concerns about SBP. She was hydrated with IVF o/;a of DAMIR. She also had hyponatremia which resolved with fluid administration. Creatinine trended downwards with fluids. She had diagnostic paracentesis and analysis of fluid did not show any evidence of SBP. Antibiotics were therefore discontinued. Gastroenterology was consulted. Jace daniel was placed on rifaximin and octreotide drip during this admission. Octreotide drip was subsequently discontinued. He was placed on famotidine as he kept on having abdominal pain which seem like reflux. She felt better and was discharged home on 02/20/2022. Her wbc did trend up to 16; she was on steroids which could explain this. SHe was however sent home on a 7 day course of ciprofloxacin and metronidazole per discussion with GI. She is to follow up with her pCP and gastroenterology on outpatient basis. GI plans to refer patient to [facility] per her request to follow up for possible liver transplant. Lactulose dose frequency was increased to 20mls every 6 hours. Patient seen and examined. She does feel better this morning. SHe still does have some abdominal pain but it is better. Review of systems otherwise negative. Labs and vitals reviewed. Home meds reviewed and reconciled. Physical Exam Const alert, oriented x3 and no apparent distress General Appearance: cooperative and comfortable Orientation / Consciousness: awake Exam Limitations: no limitations HEENT normocephalic, head/scalp atraumatic, hearing grossly normal bilaterally and moist oral mucous membranes Eyes PERRL, EOMs intact bilaterally and conjunctivae normal Eyes Narrative: jaundice Neck no lymphadenopathy, supple and no JVD Resp normal respiratory effort, no retractions, no use of accessory muscles and clear to auscultation bilaterally Cardio regular rate, regular rhythm, S1 normal heart sound, S2 normal heart sound and no murmurs GI GI Narrative: abdomen distended, generalised tenderness with mild guarding, but no rebound tenderness. Hepatomegaly, but no splenomegaly Extremity normal to inspection, full ROM and no clubbing, cyanosis or edema Skin no rashes or lesions noted and no wounds Neuro oriented x3, CN's II-XII intact bilaterally, moves all extremities and no focal motor deficits Sensorium / Orientation: awake and alert Motor Exam: strength 5/5 throughout Psych affect normal Medical Records Data Medical Nutrition Assessment Dietitian: Malnutrition Criteria Met Start: 02/18/22 10 :02 Freq: Status: Active Protocol: Document 02/18/22 10:03 (Rec: 02/18/22 10:03 [id number]) Nutrition Malnutrition Evidence of Malnutrition Exists Yes Malnutrition (moderate): Chronic Evidenced By Suboptimal Energy Intake ( Severe),Physical Changes ( Moderate) Clinical Problem Chronic Disease or Condition Related Malnutrition Etiology (moderate) related to ascites, alcoholic liver disease, nausea, and emesis Signs/Symptoms as evidenced by estimated PO intake <75% of estimated needs for >1 month and fat and muscle wasting to orbital and temporal regions Status Active Problem Recommendation Dietitian Recommendations/Changes Continue 1800 Consistent carbohydrate diet. Continue Glucerna 120mL 4x daily with medpass. Weight / BMI Weight Weight: 110 lb 10.753 oz Body Mass Index (BMI) 17.9 ABG / Lab / Microbiology Data Result Diagrams: 02/20/22 09:00 02/20/22 09:00 Laboratory: Laboratory Results - last 24 hr 02/19/22 15:44: POC Glucose 190 H 02/19/22 23:04: POC Glucose 127 H 02/20/22 07:03: POC Glucose 143 H 02/20/22 09:00: Sodium 137, Potassium 3.1 L, Chloride 98, Carbon Dioxide 28.0, Anion Gap 11, BUN 11, Creatinine 0.72, Estim Creat Clear Calc 76.55, Est GFR (MDRD) Af Amer 111, Est GFR (MDRD) Non-Af 92, BUN/Creatinine Ratio 15.3, Glucose 108 H, Calcium 9.3, Total Bilirubin 5.30 H, AST 44 H, ALT 19, Alkaline Phosphatase 110, Total Protein 6.3 L, Albumin 2.4 L, Globulin 3.9, Albumin/Globulin Ratio 0.6 L 02/20/22 09:00: WBC 16.3 H, RBC 3.12 L, Hgb 11.1 L, Hct 34.2 L, MCV 109.6 H D, MCH 35.6 H, MCHC 32.5 D, RDW Std Deviation 55.5 H, RDW Coeff of Teressa 13.7, Plt Count 237, MPV 9.5, Immature Gran % (Auto) 0.600, Neut % (Auto) 80.0 H, Lymph % (Auto) 11.3 L, [place] % (Auto) 7.3, Eos % (Auto) 0.6, Baso % (Auto) 0.2, Absolute Neuts (auto) 13.0 H, Absolute Lymphs (auto) 1.84, Nucleated RBC % 0 02/20/22 11:17: POC Glucose 145 H Microbiology: Microbiology 02/17/22 15:30 Urine, Clean Catch Urine Culture - Final Presumptive E. coli D/C Instructions Discharge Diet: Low fat / Low cholesterol Discharge Activity: Return to Normal Activity Weight Bearing Status: Weight bearing as tolerated Call your doctor if you observe: Fever of 101 or Higher, Shortness of breath, Dizziness, Swelling in the ankles, Increased palpitations (irregular heartbeat) and Uncontrolled pain Meaningful Use Info Meaningful Use Diagnoses (Choose all that apply): None applicable Discharge Plan Admission Admit Date/Time: 02/17/22 17:11 Attending Provider: Cielo Roque Primary Care Provider: Valerie Mullins Discharge Orders/Prescriptions Prescriptions: New famotidine 20 mg Tablet 20 mg PO BID Qty: 60 1RF Xifaxan 550 mg Tablet 550 mg PO BID Qty: 60 1RF ciprofloxacin HCl [Cipro] 500 mg tablet 500 mg PO Q12H Qty: 14 0RF metronidazole 500 mg tablet 500 mg PO Q8H Qty: 21 0RF Continued gabapentin 300 mg capsule 300 mg PO BID Label Comments: take 1 capsule by mouth three times a day as directed losartan 50 mg tablet 50 mg PO DAILY metformin 500 mg tablet 500 mg PO BID doxepin 75 mg capsule 150 mg PO QHS Label Comments: take 2 capsules by mouth at bedtime ursodiol 300 mg capsule 300 mg PO BID Label Comments: take 1 capsule by mouth twice a day vitamin E 268 mg (400 unit) Capsule 536 mg PO DAILY duloxetine 60 mg capsule,delayed release(DR/EC) 60 mg PO DAILY Label Comments: take 1 capsule by mouth once daily alprazolam 0.25 mg tablet 0.25 - 0.5 mg PO BID PRN (Reason: Anxiety) Label Comments: take 1-2 tablets by mouth twice a day if needed for anxiety for up to 90 DAYS ondansetron 4 mg tablet,disintegrating 4 mg PO Q8H PRN (Reason: nausea and vomiting) Qty: 14 0RF prednisone 20 mg tablet 20 mg PO BREAKFAST spironolactone [Aldactone] 25 mg tablet 25 mg PO BID Changed furosemide 40 mg tablet 40 mg PO BIDCM Qty: 60 1RF lactulose 20 gram/30 mL solution 20 g PO Q6H Qty: 3600 2RF Referrals / Follow Up: Valerie Mullins MD [Primary Care Provider] - Within 1 Week FriendDougie DO [Med Staff - Active Staff] - Within 2 Weeks Disposition Disposition (needs filled in before D/C Order can be placed): Home, Self Care Charges/Coding Visit Charges Inpatient E&M: 74019 Disch Hosp
[2022-02-20 15:48] LABS: Mucous, Urine 0 SEEN /hpf (<or=2+); Red Blood Cells-Urine 0 SEEN /hpf (0-5)
[2022-02-20 15:50] LABS: Color, Urine Yellow (Yellow); Glucose, Dipstick Normal (Normal); Ketone-Dipstick Negative (Negative); Leukocyte Esterase-Dipstick 25 /ul (Negative); Nitrite-Dipstick Negative (Negative); Occult Blood-Urine Negative /ul (Negative); Protein-Dipstick 15 mg/dl (Negative); Urine Clarity Clear (Clear); Urine Urobilinogen Normal (Normal)
[2022-02-20 15:51] LABS: Urine Bilirubin Dipstick 1 mg/dL (Negative)
[2022-02-20 15:58] LABS: Bacteria 1+ /hpf (None Seen); Squamous Epithelial Cells - UA 5-10 SEEN /hpf (5-10); White Blood Cells 0-5 SEEN /hpf (0-5)
== END 2022-02-20 18:11 | disposition home or self-care (01) | DRG 280 ==
LOC: ED 15:55 → PCU 18:26
PROVIDERS: Internal Medicine Gastroenterology; Admitting Provider Student in an Organized Health Care Education/Training Program; Emergency Provider Emergency Medicine; PCP Internal Medicine; Visit Provider Student in an Organized Health Care Education/Training Program
DX: K70.31 Alcoholic cirrhosis of liver with ascites (principal); K70.11 Alcoholic hepatitis with ascites; E44.0 Moderate protein-calorie malnutrition; N17.9 Acute kidney failure, unspecified; E87.1 Hypo-osmolality and hyponatremia; N39.0 Urinary tract infection, site not specified; E11.9 Type 2 diabetes mellitus without complications; E78.5 Hyperlipidemia, unspecified; E87.6 Hypokalemia; B96.20 Unspecified Escherichia coli [E. coli] as the cause of diseases classified elsewhere; F10.20 Alcohol dependence, uncomplicated; F17.290 Nicotine dependence, other tobacco product, uncomplicated; I10 Essential (primary) hypertension; S00.03XA Contusion of scalp, initial encounter; K76.0 Fatty (change of) liver, not elsewhere classified; W19.XXXA Unspecified fall, initial encounter; K21.9 Gastro-esophageal reflux disease without esophagitis; Y90.0 Blood alcohol level of less than 20 mg/100 ml; R53.81 Other malaise; R29.6 Repeated falls; Z68.1 Body mass index [BMI] 19.9 or less, adult; Z79.84 Long term (current) use of oral hypoglycemic drugs; Z79.899 Other long term (current) drug therapy; Z86.16 Personal history of COVID-19
CPT/HCPCS: 36415; 49083; 70450; 71101; 71111; 80048; 80053; 80076; 80307; 81001; 82077; 82140; 82945; 82962; 83615; 83690; 83735; 84157; 84484; 85025; 85610; 87040; 87086; 87088; 87186; 88108; 88305; 88313; 89050; 93005; 97162; 97802; 99285; 99406; J7030; P9047; A4216; J2405

== ENCOUNTER 2022-03-03 10:23 | Emergency (ER) | payer MEDICAID, SELFPAY ==
[2022-03-03 10:24] VITALS: BP 110/50; PULSE 89; RESP 14; TEMP 36.2; O2SAT 99; BMI 17.1
--- NOTE | 2022-03-03 10:37 | CT_ITS ---
STUDY: CT BRAIN WITHOUT CONTRAST REASON FOR EXAM: Female, 46 years old. Head injury due to multiple falls. RADIATION DOSAGE (If Supplied By Facility): CTDIvol = ( 47.06 ) mGy, DLP = ( 837.39 ) mGycm TECHNIQUE: Transaxial CT imaging of the brain was performed without administration of intravenous contrast material. Individualized dose optimization techniques were used for this CT. COMPARISON: Comparison is made with prior study dated 02/17/2022. FINDINGS: Minimal residual scalp hematoma overlying the left frontal bone. Normal calvarium. Normal size ventricles and extra-axial spaces for the patient''s age. Normal white matter tracts of the cerebral hemispheres. Normal basal ganglia and thalami. Normal brainstem. Normal cerebellum. There is no intracranial hemorrhage. There are no findings of an acute ischemic infarction. Minimal mucosal thickening along the posterior ethmoid sinuses. CT/Brain/Head without Contrast IMPRESSION: Minimal residual scalp hematoma overlying the left frontal bone. Electronically Signed: Denzel Quijano MD at 12:02 EDT ,
[2022-03-03 10:40] LABS: Bacteria 0 SEEN /hpf (None Seen); Mucous, Urine 0 SEEN /hpf (<or=2+); Red Blood Cells-Urine 0 SEEN /hpf (0-5); Squamous Epithelial Cells - UA 0 SEEN /hpf (5-10)
[2022-03-03 10:41] LABS: Color, Urine Yellow (Yellow); Glucose, Dipstick 1000 mg/dl (Normal); Ketone-Dipstick Negative (Negative); Leukocyte Esterase-Dipstick Negative /ul (Negative); Nitrite-Dipstick Negative (Negative); Occult Blood-Urine Negative /ul (Negative); Protein-Dipstick Negative (Negative); Urine Bilirubin Dipstick Negative (Negative); Urine Clarity Clear (Clear); Urine Urobilinogen Normal (Normal)
--- NOTE | 2022-03-03 10:42 | EX.ED.DYSGE1 ---
HPI History of Present Illness Chief Complaint: Hyperglycemia Narrative Narrative: 46-year-old female with history of liver cirrhosis, alcohol abuse, DM, pancreatitis, need for recurrent paracentesis, diabetes presenting with hyperglycemia. She states her blood sugars have been reading over 600. She states has been drinking a lot of water to try to get her blood sugar down. Patient recently admitted for transaminitis and paracentesis. Patient states she saw Dr. Munson in consult while she was in the hospital. She is currently on prednisone. She states she has been out of her metformin for a couple of weeks and she was hospitalized and she states that while she was in the hospital she was on sliding scale insulin. She states she had blood work done on the by her primary care physician who had reached out to her today to tell her her blood results and was told to come to the emergency room. She does not know any of her results. She states that she does have falls at least 3 times a day. She states she was previously seen for a left-sided head injury and she reports that she fell again and hit the right side of her head and complains of bruising around the right forehead and right eye. She is not complaining of a headache and blurred vision. She is not complaining of nausea or vomiting. [facility] Medical History Alcoholic cirrhosis of liver with ascites Alcoholism Anxiety Ascites Asthma Breast implant status Chronic diarrhea Cirrhosis Closed head injury COVID-19 Diabetes Diabetes Fatty liver Gastritis and duodenitis H. pylori infection History of alcohol abuse HLD (hyperlipidemia) HTN (hypertension) Hypertension Migraines Nicotine abuse Pancreatitis Post-menopausal Recurrent acute pancreatitis SBP (spontaneous bacterial peritonitis) Smoker Transaminitis Home Medications gabapentin 300 mg capsule 300 mg PO BID pain 08/11/21 [History Last Taken 02/16/22] doxepin 75 mg capsule 150 mg PO QHS mood 12/10/21 [History Last Taken 02/16/22] duloxetine 60 mg capsule,delayed release 60 mg PO DAILY depression 12/10/21 [History Last Taken 02/16/22] losartan 50 mg tablet 50 mg PO DAILY BP 12/10/21 [History Last Taken 02/16/22] metformin 500 mg tablet 500 mg PO BID Check with primary doctor 12/10/21 [History Last Taken 02/16/22] ursodiol 300 mg capsule 300 mg PO BID Check with primary doctor 12/10/21 [History Last Taken 02/16/22] vitamin E 268 mg (400 unit) capsule 536 mg PO DAILY SUPPLEMENT 12/10/21 [History Last Taken 02/16/22] alprazolam 0.25 mg tablet 0.25 - 0.5 mg PO BID PRN Anxiety 02/03/22 [History Last Taken 02/16/22] ondansetron 4 mg disintegrating tablet 4 mg PO Q8H PRN nausea and vomiting #14 tabs 02/09/22 [Rx Last Taken 02/17/22] prednisone 20 mg tablet 20 mg PO BREAKFAST steroid 02/17/22 [History Last Taken 02/16/22] spironolactone 25 mg tablet (Aldactone) 25 mg PO BID bp 02/17/22 [History Last Taken Unknown] ciprofloxacin HCl 500 mg tablet (Cipro) 500 mg PO Q12H #14 tabs 02/20/22 [Rx Last Taken Unknown] famotidine 20 mg tablet 20 mg PO BID #60 tabs 02/20/22 [Rx Last Taken Unknown] furosemide 40 mg tablet 40 mg PO BIDCM water #60 tabs 02/20/22 [Rx Last Taken 02/16/22] lactulose 20 gram/30 mL oral solution 20 g (30 mL) PO Q6H supplement #3,600 mL 02/20/22 [Rx Last Taken 02/16/22] metronidazole 500 mg tablet 500 mg PO Q8H #21 tabs 02/20/22 [Rx Last Taken Unknown] rifaximin 550 mg tablet (Xifaxan) 550 mg PO BID #60 tabs 02/20/22 [Rx Last Taken Unknown] Allergy/AdvReac Type Severity Reaction Status Date / Time azithromycin [From Zithromax] AdvReac Diarrhea Verified 03/03/22 10:24 codeine AdvReac Nausea Verified 03/03/22 10:24 promethazine [From Phenergan] AdvReac Vomiting Verified 03/03/22 10:24 Family History Father Cancer Lung CA with tobacco use history. Heart disease Mother Cancer Hx breast CA. Diabetes Hypertension Other Alcoholic cirrhosis of liver with ascites Surgical History H/O breast augmentation H/O: knee surgery Previous section S/P tonsillectomy and adenoidectomy Social History housing: other details: Lives at home, her 15, 16 year old children live with her. 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 substance use type: does not use ROS ROS ED Review of Systems ROS Unobtainable: due to encephalopathy Constitutional Constitutional ED: Denies chills or fever(s) Eyes Eyes: Denies change in vision ENT ENT ED: Denies rhinorrhea or sore throat Cardiovascular Cardiovascular: Denies chest pain or palpitations Respiratory/Chest Respiratory/Chest: Denies cough or dyspnea Gastrointestinal Gastrointestinal: Reports abdominal pain; Denies nausea or vomiting Genitourinary Genitourinary ED: Denies dysuria or hematuria Musculoskeletal Musculoskeletal: Denies arthralgias or back pain Integumentary Reports other Details: Bruising of the forehead Neurologic Neurologic: Denies headache(s) Psychiatric Psychiatric: Denies anxiety or depression EXAM Physical Exam Const Vital Signs: 03/03/22 10:24 03/03/22 11:31 Temperature 97.2 F L Temperature Source Temporal Pulse Rate 89 Respiratory Rate 14 Respiratory Effort Normal Non-Labored Blood Pressure 110/50 L Blood Pressure Mean 70 Pulse Ox 99 Oxygen Delivery Method Room Air Positive well nourished General Appearance ED: NAD HEENT Reports moist mucous membranes HEENT Narrative: Bruising noted to the bilateral forehead with old healing wound to the left side of the forehead. There is a new bruising pattern to the right side of the forehead and supraorbital ridge without any deformity. Eyes PERRL and EOMs intact bilaterally General Eye ED: Yes scleral icterus Chest Wall inspection of chest normal Resp normal respiratory effort and clear to auscultation bilaterally Cardio regular rate and regular rhythm GI GI Narrative: Mildly distended. No rebound or guarding. Back/Spine no CVA tenderness Neuro oriented x3 and CN's II-XII intact bilaterally Sensorium / Orientation: alert Motor Exam: strength 5/5 throughout Psych mental status grossly normal Skin no rashes or lesions noted General Skin Exam: jaundice MDM MDM MDM Narrative Medical decision making narrative: Patient presenting with elevated blood sugars. She is currently on prednisone and she has a history of cirrhosis. She states she would not of come in for her abdominal pain if she was not told to come in for hyperglycemia. She states her stomach is full but not as distended as it has been. I reviewed the medical record and found her outpatient blood work. She had a CMP performed which showed a bilirubin of 3.5., Glucose of 370, AST and ALT were normal. Albumin was low at 3.1. Calcium 7.8. Anion gap was normal at 13. Sodium 134, potassium 3.1, chloride 95, creatinine 0.63, BUN 4, GFR hypercholesterolemia 110. Will obtain repeat lab work as the patient now states her blood sugars are over 600. Urinalysis was obtained which shows 1000 glucose. Negative for nitrites or leukocyte esterase. Patient will be given a liter of IV fluids. Patient CBC shows white blood cell count of 8.8. Hemoglobin stable at 10.9. Platelets 246. CMP shows a potassium of 3.0. BUN 5, creatinine 1.91... Glucose is 539 without an anion gap. Total bilirubin is 2.10 and is trending downward. Direct bilirubin 2.15 this is also trending downward. Lipase elevated at 673 which is more elevated than previous however she is not complaining of acute epigastric pain and she does have some history of chronic pancreatitis. Patient given 15 units of subcutaneous insulin. It sounds that she has been noncompliant with her metformin as well. The patient is also currently on prednisone. Recheck her blood sugars 473. I spoke with Dr. Castillo who is on-call for Dr. Capone. I discussed the case with him at length. She had told me that she was out of her metformin but he was able to confirm that she has a year supply of this. She is not in DKA and will need follow-up and she will need to continue to take her metformin. CT of her brain was negative today. I discussed with him about her falls and likely this is because of alcohol use. Her alcohol was 108 today. Patient is discharged home in stable condition. Impression: 1. History as falls 2. Closed head injury 3. Chronic anemia 4. Hyperglycemia 5. Noncompliance with metformin 6. EtOH abuse 7. Cirrhosis Lab Data Labs: Laboratory Results - last 24 hr 03/03/22 03/03/22 03/03/22 10:34 10:39 11:05 WBC 8.8 RBC 3.04 L Hgb 10.9 L Hct 32.7 L MCV 107.6 H MCH 35.9 H MCHC 33.3 RDW Std Deviation 50.7 H RDW Coeff of Teressa 12.9 Plt Count 246 MPV 9.7 Immature Gran % (Auto) 0.500 Neut % (Auto) 89.0 H Lymph % (Auto) 6.7 L [place] % (Auto) 3.5 Eos % (Auto) 0.1 Baso % (Auto) 0.2 Absolute Neuts (auto) 7.9 H Absolute Lymphs (auto) 0.59 L Nucleated RBC % 0 Platelet Estimate ADEQUATE Macrocytosis 1+ PT INR Sodium Potassium Chloride Carbon Dioxide Anion Gap BUN Creatinine Estim Creat Clear Calc Est GFR (MDRD) Af Amer Est GFR (MDRD) Non-Af BUN/Creatinine Ratio Glucose Calcium Total Bilirubin Direct Bilirubin AST ALT Alkaline Phosphatase Total Protein Albumin Globulin Lipase Urine Color Yellow Urine Clarity Clear Urine pH 8.0 Ur Specific [place] 1.010 Urine Protein Negative Urine Glucose (UA) 1000 H Urine Ketones Negative Urine Occult Blood Negative Urine Nitrite Negative Urine Bilirubin Negative Urine Urobilinogen Normal Ur Leukocyte Esterase Negative Urine RBC 0 SEEN Urine WBC 0-5 SEEN Ur Squamous Epith Cells 0 SEEN Urine Bacteria 0 SEEN Urine Mucus 0 SEEN Ethyl Alcohol POC Glucose 473 H* 03/03/22 03/03/22 03/03/22 11:05 11:05 11:05 WBC RBC Hgb Hct MCV MCH MCHC RDW Std Deviation RDW Coeff of Teressa Plt Count MPV Immature Gran % (Auto) Neut % (Auto) Lymph % (Auto) [place] % (Auto) Eos % (Auto) Baso % (Auto) Absolute Neuts (auto) Absolute Lymphs (auto) Nucleated RBC % Platelet Estimate Macrocytosis PT 16.5 H INR 1.4 Sodium 136 Potassium 3.0 L Chloride 98 Carbon Dioxide 29.0 Anion Gap 9 BUN 5 L Creatinine 0.91 Estim Creat Clear Calc 58.01 Est GFR (MDRD) Af Amer 85 Est GFR (MDRD) Non-Af 70 BUN/Creatinine Ratio 5.5 L Glucose 539 H* Calcium 8.8 Total Bilirubin 2.10 H Direct Bilirubin 2.15 H AST 35 ALT 19 Alkaline Phosphatase 115 Total Protein 6.5 Albumin 2.7 L Globulin 3.8 Lipase 673 H Urine Color Urine Clarity Urine pH Ur Specific [place] Urine Protein Urine Glucose (UA) Urine Ketones Urine Occult Blood Urine Nitrite Urine Bilirubin Urine Urobilinogen Ur Leukocyte Esterase Urine RBC Urine WBC Ur Squamous Epith Cells Urine Bacteria Urine Mucus Ethyl Alcohol 108.0 POC Glucose Radiography Diagnostic Testing: Clinical Impression(s) from Imaging Studies Brain CT 03/03/22 10:37 IMPRESSION: Minimal residual scalp hematoma overlying the left frontal bone. Electronically Signed: Denzel Quijano MD at 12:02 EDT , Discharge Plan Triage Chief Complaint: Hyperglycemia ED Provider: Lj Lundberg Dx/Rx/DC Orders Prescriptions: No Action gabapentin 300 mg capsule 300 mg PO BID Label Comments: take 1 capsule by mouth three times a day as directed losartan 50 mg tablet 50 mg PO DAILY metformin 500 mg tablet 500 mg PO BID doxepin 75 mg capsule 150 mg PO QHS Label Comments: take 2 capsules by mouth at bedtime ursodiol 300 mg capsule 300 mg PO BID Label Comments: take 1 capsule by mouth twice a day vitamin E 268 mg (400 unit) Capsule 536 mg PO DAILY duloxetine 60 mg capsule,delayed release(DR/EC) 60 mg PO DAILY Label Comments: take 1 capsule by mouth once daily alprazolam 0.25 mg tablet 0.25 - 0.5 mg PO BID PRN (Reason: Anxiety) Label Comments: take 1-2 tablets by mouth twice a day if needed for anxiety for up to 90 DAYS ondansetron 4 mg tablet,disintegrating 4 mg PO Q8H PRN (Reason: nausea and vomiting) Qty: 14 0RF prednisone 20 mg tablet 20 mg PO BREAKFAST spironolactone [Aldactone] 25 mg tablet 25 mg PO BID famotidine 20 mg Tablet 20 mg PO BID Qty: 60 1RF Xifaxan 550 mg Tablet 550 mg PO BID Qty: 60 1RF ciprofloxacin HCl [Cipro] 500 mg tablet 500 mg PO Q12H Qty: 14 0RF metronidazole 500 mg tablet 500 mg PO Q8H Qty: 21 0RF furosemide 40 mg tablet 40 mg PO BIDCM Qty: 60 1RF lactulose 20 gram/30 mL solution 20 g PO Q6H Qty: 3600 2RF Primary Care Provider: Valerie Mullins Referrals: Valerie Mullins MD [Primary Care Provider] -
[2022-03-03 10:54] LABS: White Blood Cells 0-5 SEEN /hpf (0-5)
[2022-03-03 11:00] LABS: Bedside Glucose 473 mg/dL (74-106)
[2022-03-03] MEDS: 0.9% Normal Saline 1,000 ML 1000 ML IV (11:00)
[2022-03-03 11:16] LABS: Absolute Lymphocyte Count 0.59 X10^3/uL (0.83-4.51); Absolute Neutrophil Count 7.9 X10^3/uL (2.0-7.7); Basophil# 0.02 X10^3/uL; Basophil% 0.2 % (0-1); Eosinophil# 0.01 X10^3/uL; Eosinophils% 0.1 % (0-5); Hematocrit 32.7 % (37-47); Hemoglobin 10.9 g/dL (12.0-15.0); Lymphocyte # 0.59 X10^3/ul (0.83-4.51); Lymphocyte % 6.7 % (19-41); Mean Corp Hgb Conc 33.3 g/dL (32-36); Mean Corpuscular Hgb 35.9 pg (27.0-32.0); Mean Corpuscular Volume 107.6 fL (81-99); Mean Platelet Vol. 9.7 fl (6.2-12.0); Monocyte# 0.31 X10^3/uL; Monocyte% 3.5 % (0-10); NRBC Flagged by Analyzer 0 % (0-5); Neutrophil # 7.85 X10^3/uL (2.7-7.7); POSITIVE DIFFERENTIAL YES; Platelet Count 246 K/mm3 (150-450); RBC Distribution Width CV 12.9 % (11.6-14.6); RBC Distribution Width SD 50.7 fl (35.1-43.9); Red Blood Count 3.04 M/mm3 (4.2-5.4); White Blood Count 8.8 K/mm3 (4.4-11.0)
[2022-03-03 11:28] LABS: Differential Indicated SCAN CRITERIA MET
[2022-03-03 11:29] LABS: International Normalized Ratio 1.4; Prothrombin Time (Protime)PT. 16.5 SECONDS (11.7-14.9)
[2022-03-03 11:41] LABS: AST(SGOT) 35 U/L (15-37); Alanine Aminotransfer ALT/SGPT 19 U/L (13-56); Albumin, Serum 2.7 g/dL (3.2-5.0); Alkaline Phosphatase 115 U/L (45-117); Anion Gap 9 (5-15); BUN 5 mg/dL (7-18); BUN/Creat Ratio 5.5 RATIO (10-20); Bilirubin, Direct 2.15 mg/dL (0.00-0.30); Calcium,Total 8.8 mg/dL (8.5-10.1); Chloride 98 mmol/L (98-107); Creatinine, Serum 0.91 mg/dL (0.55-1.02); EST Glomerular Filtration Rate 70 mL/min (>60); Est Glom Filt Rate - Afr Amer 85 mL/min (>60); Estimated Creatinine Clearance 58.01 ml/min; Globulin 3.8 g/dL (2.2-4.2); Glucose 539 mg/dL (74-106); Lipase 673 U/L (73-393); Protein, Total 6.5 g/dL (6.4-8.2); Sodium Level 136 mmol/L (136-145)
[2022-03-03 12:00] LABS: Macrocytosis 1+; Platelet Estimate ADEQUATE (ADEQ)
[2022-03-03] MEDS: Insulin Lispro 100 UNIT/ML INSULN.PEN 15 UNIT SC (12:19)
[2022-03-03] MEDS: Potassium Chloride Oral Tablet 20 MEQ 40 MEQ PO (12:20)
[2022-03-03 13:40] LABS: Bedside Glucose 434 mg/dL (74-106)
[2022-03-03 14:00] VITALS: BP 103/74; PULSE 94; RESP 17; TEMP 36.9; O2SAT 98
[2022-03-03 14:21] LABS: Bedside Glucose 314 mg/dL (74-106)
== END 2022-03-03 14:02 | disposition home or self-care (01) ==
PROVIDERS: Emergency Provider Student in an Organized Health Care Education/Training Program; PCP Internal Medicine; Visit Provider Student in an Organized Health Care Education/Training Program
DX: E11.65 Type 2 diabetes mellitus with hyperglycemia (principal); K70.30 Alcoholic cirrhosis of liver without ascites; R29.6 Repeated falls; D64.9 Anemia, unspecified; Z91.14 Patient's other noncompliance with medication regimen; I10 Essential (primary) hypertension; E78.5 Hyperlipidemia, unspecified; F10.10 Alcohol abuse, uncomplicated; F17.290 Nicotine dependence, other tobacco product, uncomplicated; Y90.8 Blood alcohol level of 240 mg/100 ml or more; Z79.84 Long term (current) use of oral hypoglycemic drugs; Z79.899 Other long term (current) drug therapy; Z86.16 Personal history of COVID-19
CPT/HCPCS: 36415; 70450; 80048; 80076; 81001; 82077; 82962; 83690; 85025; 85610; 96360; 96361; 99284; J7030; A4216

== ENCOUNTER 2022-03-10 08:51 | Inpatient (IN) | payer MEDICAID, SELFPAY ==
[2022-03-10] VITALS (15 sets, daily range): BP systolic 72–109; BP diastolic 35–75; PULSE 79–115; RESP 12–18; TEMP 35.6–37.1; O2SAT 92–100; BMI 16.5; BMI 16.7
--- NOTE | 2022-03-10 09:07 | RAD_ITS ---
STUDY: X-RAY CHEST REASON FOR EXAM: Female, 46 years old. Hypoxia TECHNIQUE: Single AP portable view of the chest. COMPARISON: Comparison is made with prior study dated 01/12/2022. FINDINGS: EKG electrodes are seen. Bilateral breast implants. The lungs are clear and expanded. There is no demonstrated pleural abnormality. Normal size heart. Normal mediastinum and niurka. Normal visualized pulmonary arteries. Normal visualized aortic arch and descending thoracic aorta. Normal visualized thoracic spine. Normal visualized ribs, clavicles, and shoulders. There is no demonstrated abnormality of the visualized soft tissue structures of the upper abdomen. RAD/Chest 1 View (Portable) IMPRESSION: No acute abnormality is seen. Electronically Signed: Denzel Quijano MD at 11:15 EDT ,
--- NOTE | 2022-03-10 09:07 | EKG12_ITS ---
Test Reason : VISION PROB Blood Pressure : / mmHG Vent. Rate : 102 BPM Atrial Rate : 102 BPM P-R Int : 120 ms QRS Dur : 078 ms QT Int : 418 ms P-R-T Axes : 003 072 030 degrees QTc Int : 544 ms Sinus tachycardia Low voltage QRS Prolonged QT Abnormal ECG Confirmed by EDUARDO BECK, SIN ([id number]), index editor AMAYA PITTMAN ([id number]) on 03/11/2022 1:48:03 P M Referred By: DARIUS Confirmed By:TELMA CLARK MD
--- NOTE | 2022-03-10 09:09 | CT_ITS ---
STUDY: CT BRAIN WITHOUT CONTRAST REASON FOR EXAM: Female, 46 years old. Blurry vision due to head trauma. RADIATION DOSAGE (If Supplied By Facility): CTDIvol = ( 44.99 ) mGy, DLP = ( 762.36 ) mGycm TECHNIQUE: Transaxial CT imaging of the brain was performed without administration of intravenous contrast material. Individualized dose optimization techniques were used for this CT. COMPARISON: Comparison is made with prior examination dated 03/03/2022. FINDINGS: Normal soft tissue structures. Normal calvarium. Normal size ventricles and extra-axial spaces for the patient''s age. Normal white matter tracts of the cerebral hemispheres. Normal basal ganglia and thalami. Normal brainstem. Normal cerebellum. There is no intracranial hemorrhage. There are no findings of an acute ischemic infarction. Mild degree of mucosal thickening along the proximal aspect of the ethmoid sinuses. CT/Brain/Head without Contrast IMPRESSION: Stable examination. No acute abnormality is seen. Electronically Signed: Denzel Quijano MD at 11:12 EDT ,
--- NOTE | 2022-03-10 09:18 | CT_ITS ---
STUDY: CT CERVICAL SPINE WITHOUT CONTRAST REASON FOR EXAM: Female, 46 years old. Neck pain and blurry vision due to frequent falls. RADIATION DOSAGE (If Supplied By Facility): CTDIvol = ( 11.96 ) mGy, DLP = ( 241.15 ) mGycm TECHNIQUE: High resolution transaxial imaging was performed without contrast material. Sagittal and coronal images were reconstructed. Individualized dose optimization techniques were used for this CT. COMPARISON: None FINDINGS: Normal craniovertebral junction. Normal anterior atlantoaxial articulation. Normal odontoid process. There is straightening of the normal cervical lordosis. Normal vertebral bodies and posterior osseous elements. C2-3: Normal endplates. Normal disc height and morphology. Normal central canal and intervertebral neuroforamina. C3-4: Normal endplates. Normal disc height and morphology. Normal central canal and intervertebral neuroforamina. C4-5: Facet joint osteoarthritis and hypertrophy worse on the right side. No significant stenosis seen. C5-6: Moderate degree of disc space narrowing with anterior spondylosis. Uncovertebral arthrosis. Mild degree of central and left neural foraminal stenosis. C6-7: Normal endplates. Normal disc height and morphology. Normal central canal and intervertebral neuroforamina. C7-T1: Normal endplates. Normal disc height and morphology. Normal central canal and intervertebral neuroforamina. Normal visualized soft tissue structures. CT/Spine Cervical without Contras IMPRESSION: Multilevel degenerative changes, as described above. Electronically Signed: Denzel Quijano MD at 11:14 EDT ,
--- NOTE | 2022-03-10 09:18 | EDS_ITS ---
HPI History of Present Illness Chief Complaint: Vision Prob Narrative Narrative: 46-year-old female with history of diabetes, cirrhosis, ascites, anemia, recurrent pancreatitis presenting with a sensation of lightheadedness which has been ongoing since her previous visit to the emergency room. She states she has had some falls at home which is not a new issue for her. She does fall frequently. She does not have a headache but she states that her vision is somewhat blurred at times. This is worse when she stands and moves. She states she did hit her head recently but not severely and she did not have any loss of consciousness. Patient states that she does have chronic diarrhea and she states she has noted some black stools. She has not had bloody stools or coffee-ground emesis/hematemesis. She has not had to have paracentesis since her last one prior to her previous visit to the emergency room. She states that her stomach is not distended, and she has no abdominal pain. She states she previously saw Dr. Munson at [facility], and has also seen another GI doc tor at the [facility] in regards to being evaluated for a liver transplant but was told she is not a good candidate. She states that she did not like him very much and does not want to see him anymore. Patient also notes that she has some stuttering problems which she states has been going on for a couple of months. This is intermittent. She states at times when she starts to speak she will suddenly gasp for air but she does not have any specific shortness of breath. Patient states that she not coughing or had a fever. Patient states that she does get some muscle twitches frequently and these are sporadic. These occur in any of her extremities. She does relate that she has a history of chronic hypokalemia. She states my potassium is always low. She states she has been able to eat regularly. If she not hungry she still make sure she drinks Ensure for nutrition. She is drinking fluids. Previously she had been off of her metformin for her diabetes when she was discharged from the hospital, but she relates she has been taking the metformin. She denies having any fever, chills, cough. She denies chest pain. She has no urinary complaints. [facility] Medical History Alcoholic cirrhosis of liver with ascites Alcoholism Anxiety Ascites Asthma Breast implant status Chronic diarrhea Cirrhosis Closed head injury COVID-19 Diabetes Diabetes Fatty liver Gastritis and duodenitis H. pylori infection History of alcohol abuse HLD (hyperlipidemia) HTN (hypertension) Hypertension Migraines Nicotine abuse Pancreatitis Post-menopausal Recurrent acute pancreatitis SBP (spontaneous bacterial peritonitis) Smoker Transaminitis Home Medications gabapentin 300 mg capsule 300 mg PO BID pain 08/11/21 [History Last Taken 02/16/22] doxepin 75 mg capsule 150 mg PO QHS mood 12/10/21 [History Last Taken 02/16/22] duloxetine 60 mg capsule,delayed release 60 mg PO DAILY depression 12/10/21 [History Last Taken 02/16/22] losartan 50 mg tablet 50 mg PO DAILY BP 12/10/21 [History Last Taken 02/16/22] metformin 500 mg tablet 500 mg PO BID Check with primary doctor 12/10/21 [History Last Taken 02/16/22] ursodiol 300 mg capsule 300 mg PO BID Check with primary doctor 12/10/21 [History Last Taken 02/16/22] vitamin E 268 mg (400 unit) capsule 536 mg PO DAILY SUPPLEMENT 12/10/21 [History Last Taken 02/16/22] alprazolam 0.25 mg tablet 0.25 - 0.5 mg PO BID PRN Anxiety 02/03/22 [History Last Taken 02/16/22] ondansetron 4 mg disintegrating tablet 4 mg PO Q8H PRN nausea and vomiting #14 tabs 02/09/22 [Rx Last Taken 02/17/22] prednisone 20 mg tablet 20 mg PO BREAKFAST steroid 02/17/22 [History Last Taken 02/16/22] spironolactone 25 mg tablet (Aldactone) 25 mg PO BID bp 02/17/22 [History Last Taken Unknown] ciprofloxacin HCl 500 mg tablet (Cipro) 500 mg PO Q12H #14 tabs 02/20/22 [Rx Last Taken Unknown] famotidine 20 mg tablet 20 mg PO BID #60 tabs 02/20/22 [Rx Last Taken Unknown] furosemide 40 mg tablet 40 mg PO BIDCM water #60 tabs 02/20/22 [Rx Last Taken 02/16/22] lactulose 20 gram/30 mL oral solution 20 g (30 mL) PO Q6H supplement #3,600 mL 02/20/22 [Rx Last Taken 02/16/22] metronidazole 500 mg tablet 500 mg PO Q8H #21 tabs 02/20/22 [Rx Last Taken Unknown] rifaximin 550 mg tablet (Xifaxan) 550 mg PO BID #60 tabs 02/20/22 [Rx Last Taken Unknown] Allergy/AdvReac Type Severity Reaction Status Date / Time azithromycin [From Zithromax] AdvReac Diarrhea Verified 03/10/22 08:53 codeine AdvReac Nausea Verified 03/10/22 08:53 promethazine [From Phenergan] AdvReac Vomiting Verified 03/10/22 08:53 Family History Father Cancer Lung CA with tobacco use history. Heart disease Mother Cancer Hx breast CA. Diabetes Hypertension Other Alcoholic cirrhosis of liver with ascites Surgical History H/O breast augmentation H/O: knee surgery Previous section S/P tonsillectomy and adenoidectomy Social History housing: other details: Lives at home, her 15, 16 year old children live with her. 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 substance use type: does not use EXAM Physical Exam Const Vital Signs: 03/10/22 08:53 03/10/22 09:34 03/10/22 09:35 Temperature 96.1 F L Temperature Source Temporal Pulse Rate 115 H Respiratory Rate 14 Blood Pressure 72/62 L 83/35 L Blood Pressure Mean 65 51 Pulse Ox 93 Oxygen Delivery Method Room Air Room Air 03/10/22 10:38 03/10/22 11:50 Temperature Temperature Source Pulse Rate 89 87 Respiratory Rate 18 16 Blood Pressure 73/62 L 88/49 L Blood Pressure Mean 65 62 Pulse Ox 97 Oxygen Delivery Method Room Air Room Air Positive well nourished General Appearance ED: NAD and pallor HEENT Reports moist mucous membranes Eyes PERRL and EOMs intact bilaterally General Eye ED: Negative for pale conjunctiva Chest Wall inspection of chest normal Resp normal respiratory effort Auscultation: Negative for rales, rhonchi or wheezes Cardio regular rate Rate: tachycardic GI normal to inspection, nondistended, normoactive bowel sounds Neuro oriented x3 and CN's II-XII intact bilaterally Sensorium / Orientation: alert Psych mental status grossly normal Skin no rashes or lesions noted General Skin Exam: jaundice and pallor MDM MDM MDM Narrative Medical decision making narrative: Patient presenting with multiple complaints. She has had recurrent falls and lightheadedness. On arrival her blood pressure is low at 72/62 and repeated this was 83/35. Patient states that her blood pressure does run low but not quite this low. Patient reports that she is eating and drinking at home. She also reports chronic black diarrhea. She does have a history of GI bleed but states she has never had have a blood transfusion. Because of her hypotension and tachycardia sepsis work-up was pursued although I suspect she is anemic. She was typed and screened. She was given a liter of normal saline. Patient did have a evaluation from the transplant specialist at [facility] (Dr. West) apparently he ran a test of phosphatidylethanol which is apparently a test to see if the patient has been consuming alcohol over the long-term. If this is less than 10 then its not detected. If it is less than 20 suggest absence or light alcohol consumption if it is 20-200 and suggests moderate alc ohol consumption. If it is greater than 200 get suggest heavy alcohol consumption. Her level was 678 on 01/04/2022. It does appear that on her last visit to the emergency room here she had an elevated alcohol level as well. She reports that she is not drinking anymore. She reports that she was told she is not a good candidate for liver transplant. She does not want to see the specialist again. It does not appear that the patient is followed up with her PCP or GI specialist since her last visit. Today she has a slight leukocytosis 12.1 on her CBC. Her hemoglobin is 9.7 which is not dramatically changed. Her platelets are normal at 196. The patient's kidney function has again declined and her creatinine is 3.43. She was initially given a fluid bolus of 1 L normal saline. Her lactic acid was elevated at 2.8 but I suspect this is likely due to dehydration and not infection. Her total bilirubin and direct bilirubin are about the same. Her LFTs are unremarkable. High-sensitivity troponin is less than 3. EKG on my interpretation is a sinus tachycardia with a ventricular to 102 bpm without sign of ischemic change. EtOH negative. Ammonia level normal clinically she is orthostatic based on her symptoms. CT brain is negative for any acute findings. CT cervical spine shows degenerative changes. Chest x-ray on my interpretation shows no acute cardiopulmonary process and the radiologist agree. I discussed case with Dr. Munson who suspects that the patient likely is over diuresed and that is why she has not had to have a repeat paracentesis. He recommended admission and hydration. Patient was given a second liter of IV fluids her blood pressure is improved since her arrival blood pressure 88/49. Patient was discussed with the hospitalist for admission. Impression: 1. Anemia 2. DAMIR 3. History of cirrhosis 4. History of EtOH abuse 5. Lactic acidosis 6. Falls 7. Closed head injury 8. Apical strain Lab Data Labs: Laboratory Results - last 24 hr 03/10/22 03/10/22 03/10/22 09:48 09:48 10:03 WBC Cancelled Corrected WBC Cancelled RBC Cancelled Hgb Cancelled Hct Cancelled MCV Cancelled MCH Cancelled MCHC Cancelled RDW Std Deviation Cancelled RDW Coeff of Teressa Cancelled Plt Count Cancelled MPV Cancelled Immature Gran % (Auto) Cancelled Neut % (Auto) Cancelled Lymph % (Auto) Cancelled [place] % (Auto) Cancelled Eos % (Auto) Cancelled Baso % (Auto) Cancelled Absolute Neuts (auto) Cancelled Absolute Lymphs (auto) Cancelled Total Counted Cancelled Neutrophils % (Manual) Cancelled Band Neutrophils % Cancelled Lymphocytes % (Manual) Cancelled Monocytes % (Manual) Cancelled Eosinophils % (Manual) Cancelled Basophils % (Manual) Cancelled Metamyelocytes % Cancelled Myelocytes % Cancelled Promyelocytes % Cancelled Blast Cells % Cancelled Plasma Cell % (Manual) Cancelled Other Cells % Cancelled Nucleated RBC % Cancelled Nucleated RBCs/100 WBC Cancelled Differential Comment Cancelled Diff Path Review Cancelled Hypersegmented Neuts Cancelled Atypical Lymphocytes Cancelled Reactive Lymphocytes Cancelled Smudge Cells Cancelled Toxic Granulation Cancelled Toxic Vacuolation Cancelled Dohle Bodies Cancelled Earnestine Rods Cancelled Platelet Estimate Cancelled Plt Morphology Comment Cancelled RBC Morphology Cancelled Polychromasia Cancelled Hypochromasia Cancelled Poikilocytosis Cancelled Basophilic Stippling Cancelled Anisocytosis Cancelled Microcytosis Cancelled Macrocytosis Cancelled Spherocytes Cancelled Sickle Cells Cancelled Target Cells Cancelled Tear Drop Cells Cancelled Ovalocytes Cancelled Stomatocytes Cancelled [place] Bodies Cancelled [place] Cells Cancelled Bite Cells Cancelled Crenated Cell Cancelled Acanthocytes (Spur) Cancelled Rouleaux Cancelled Schistocytes Cancelled PT 17.9 H INR 1.5 APTT 32.6 Sodium Potassium Chloride Carbon Dioxide Anion Gap BUN Creatinine Estim Creat Clear Calc Est GFR (MDRD) Af Amer Est GFR (MDRD) Non-Af BUN/Creatinine Ratio Glucose Lactic Acid Calcium Total Bilirubin Direct Bilirubin AST ALT Alkaline Phosphatase Ammonia 22.0 Troponin I High Sens Total Protein Albumin Globulin Lipase Ethyl Alcohol Blood Type Antibody Screen 03/10/22 03/10/22 03/10/22 10:03 10:03 10:32 WBC 12.1 H Corrected WBC RBC 2.80 L Hgb 9.7 L Hct 29.9 L MCV 106.8 H MCH 34.6 H MCHC 32.4 RDW Std Deviation 51.8 H RDW Coeff of Teressa 13.2 Plt Count 196 MPV 10.9 Immature Gran % (Auto) 0.600 Neut % (Auto) 89.3 H Lymph % (Auto) 3.1 L [place] % (Auto) 5.2 Eos % (Auto) 1.4 Baso % (Auto) 0.4 Absolute Neuts (auto) 10.8 H Absolute Lymphs (auto) 0.38 L Total Counted Neutrophils % (Manual) Band Neutrophils % Lymphocytes % (Manual) Monocytes % (Manual) Eosinophils % (Manual) Basophils % (Manual) Metamyelocytes % Myelocytes % Promyelocytes % Blast Cells % Plasma Cell % (Manual) Other Cells % Nucleated RBC % 0 Nucleated RBCs/100 WBC Differential Comment COMMENT Diff Path Review Hypersegmented Neuts Atypical Lymphocytes Reactive Lymphocytes Smudge Cells Toxic Granulation Toxic Vacuolation Dohle Bodies Earnestine Rods Platelet Estimate Plt Morphology Comment RBC Morphology Polychromasia Hypochromasia Poikilocytosis Basophilic Stippling Anisocytosis Microcytosis Macrocytosis Spherocytes Sickle Cells Target Cells Tear Drop Cells Ovalocytes Stomatocytes [place] Bodies Steven Cells Bite Cells Crenated Cell Acanthocytes (Spur) Rouleaux Schistocytes PT INR APTT Sodium 132 L Potassium 3.4 L Chloride 95 L Carbon Dioxide 22.0 Anion Gap 15 BUN 32 H Creatinine 3.43 H Estim Creat Clear Calc 14.81 Est GFR (MDRD) Af Amer 18 L Est GFR (MDRD) Non-Af 15 L BUN/Creatinine Ratio 9.3 L Glucose 190 H Lactic Acid Calcium 8.5 Total Bilirubin 2.40 H Direct Bilirubin 2.11 H AST 15 ALT 12 L Alkaline Phosphatase 103 Ammonia Troponin I High Sens < 3 L Total Protein 5.9 L Albumin 2.6 L Globulin 3.3 Lipase 219 Ethyl Alcohol 4.0 Blood Type Antibody Screen 03/10/22 03/10/22 11:05 11:05 WBC Corrected WBC RBC Hgb Hct MCV MCH MCHC RDW Std Deviation RDW Coeff of Teressa Plt Count MPV Immature Gran % (Auto) Neut % (Auto) Lymph % (Auto) [place] % (Auto) Eos % (Auto) Baso % (Auto) Absolute Neuts (auto) Absolute Lymphs (auto) Total Counted Neutrophils % (Manual) Band Neutrophils % Lymphocytes % (Manual) Monocytes % (Manual) Eosinophils % (Manual) Basophils % (Manual) Metamyelocytes % Myelocytes % Promyelocytes % Blast Cells % Plasma Cell % (Manual) Other Cells % Nucleated RBC % Nucleated RBCs/100 WBC Differential Comment Diff Path Review Hypersegmented Neuts Atypical Lymphocytes Reactive Lymphocytes Smudge Cells Toxic Granulation Toxic Vacuolation Dohle Bodies Earnestine Rods Platelet Estimate Plt Morphology Comment RBC Morphology Polychromasia Hypochromasia Poikilocytosis Basophilic Stippling Anisocytosis Microcytosis Macrocytosis Spherocytes Sickle Cells Target Cells Tear Drop Cells Ovalocytes Stomatocytes [place] Bodies [place] Cells Bite Cells Crenated Cell Acanthocytes (Spur) Rouleaux Schistocytes PT INR APTT Sodium Potassium Chloride Carbon Dioxide Anion Gap BUN Creatinine Estim Creat Clear Calc Est GFR (MDRD) Af Amer Est GFR (MDRD) Non-Af BUN/Creatinine Ratio Glucose Lactic Acid 2.8 H* Calcium Total Bilirubin Direct Bilirubin AST ALT Alkaline Phosphatase Ammonia Troponin I High Sens Total Protein Albumin Globulin Lipase Ethyl Alcohol Blood Type AB NEGATIVE Antibody Screen NEGATIVE Radiography Diagnostic Testing: Clinical Impression(s) from Imaging Studies Chest X-Ray 03/10/22 09:07 IMPRESSION: No acute abnormality is seen. Electronically Signed: Denzel Quijano MD at 11:15 EDT , Brain CT 03/10/22 09:09 IMPRESSION: Stable examination. No acute abnormality is seen. Electronically Signed: Denzel Quijano MD at 11:12 EDT , Cervical Spine CT 03/10/22 09:18 IMPRESSION: Multilevel degenerative changes, as described above. Electronically Signed: Denzel Quijano MD at 11:14 EDT , Discharge Plan Triage Chief Complaint: Vision Prob ED Provider: Lj Lundberg Dx/Rx/DC Orders Prescriptions: No Action gabapentin 300 mg capsule 300 mg PO BID Label Comments: take 1 capsule by mouth three times a day as directed losartan 50 mg tablet 50 mg PO DAILY metformin 500 mg tablet 500 mg PO BID doxepin 75 mg capsule 150 mg PO QHS Label Comments: take 2 capsules by mouth at bedtime ursodiol 300 mg capsule 300 mg PO BID Label Comments: take 1 capsule by mouth twice a day vitamin E 268 mg (400 unit) Capsule 536 mg PO DAILY duloxetine 60 mg capsule,delayed release(DR/EC) 60 mg PO DAILY Label Comments: take 1 capsule by mouth once daily alprazolam 0.25 mg tablet 0.25 - 0.5 mg PO BID PRN (Reason: Anxiety) Label Comments: take 1-2 tablets by mouth twice a day if needed for anxiety for up to 90 DAYS ondansetron 4 mg tablet,disintegrating 4 mg PO Q8H PRN (Reason: nausea and vomiting) Qty: 14 0RF prednisone 20 mg tablet 20 mg PO BREAKFAST spironolactone [Aldactone] 25 mg tablet 25 mg PO BID famotidine 20 mg Tablet 20 mg PO BID Qty: 60 1RF Xifaxan 550 mg Tablet 550 mg PO BID Qty: 60 1RF ciprofloxacin HCl [Cipro] 500 mg tablet 500 mg PO Q12H Qty: 14 0RF metronidazole 500 mg tablet 500 mg PO Q8H Qty: 21 0RF furosemide 40 mg tablet 40 mg PO BIDCM Qty: 60 1RF lactulose 20 gram/30 mL solution 20 g PO Q6H Qty: 3600 2RF Primary Care Provider: Valerie Mullins Referrals: Valerie Mullins MD [Primary Care Provider] -
[2022-03-10] MEDS: 0.9% Normal Saline 1,000 ML 999 ML IV ×2 (10:16→18:07)
[2022-03-10 11:04] LABS: Absolute Lymphocyte Count 0.38 X10^3/uL (0.83-4.51); Absolute Neutrophil Count 10.8 X10^3/uL (2.0-7.7); Basophil# 0.05 X10^3/uL; Basophil% 0.4 % (0-1); Eosinophil# 0.17 X10^3/uL; Eosinophils% 1.4 % (0-5); Hematocrit 29.9 % (37-47); Hemoglobin 9.7 g/dL (12.0-15.0); Lymphocyte # 0.38 X10^3/ul (0.83-4.51); Lymphocyte % 3.1 % (19-41); Mean Corp Hgb Conc 32.4 g/dL (32-36); Mean Corpuscular Hgb 34.6 pg (27.0-32.0); Mean Corpuscular Volume 106.8 fL (81-99); Mean Platelet Vol. 10.9 fl (6.2-12.0); Monocyte# 0.63 X10^3/uL; Monocyte% 5.2 % (0-10); NRBC Flagged by Analyzer 0 % (0-5); Neutrophil # 10.79 X10^3/uL (2.7-7.7); Neutrophil % 89.3 % (47-70); POSITIVE DIFFERENTIAL YES; Platelet Count 196 K/mm3 (150-450); RBC Distribution Width CV 13.2 % (11.6-14.6); RBC Distribution Width SD 51.8 fl (35.1-43.9); White Blood Count 12.1 K/mm3 (4.4-11.0)
[2022-03-10 11:08] LABS: International Normalized Ratio 1.5; Prothrombin Time (Protime)PT. 17.9 SECONDS (11.7-14.9)
[2022-03-10 11:09] LABS: Partial Thromboplast Time 32.6 Seconds (24.1-36.2)
[2022-03-10 11:09] LABS: Differential Indicated SCAN CRITERIA MET
[2022-03-10 11:13] LABS: AST(SGOT) 15 U/L (15-37); Alanine Aminotransfer ALT/SGPT 12 U/L (13-56); Albumin, Serum 2.6 g/dL (3.2-5.0); Alkaline Phosphatase 103 U/L (45-117); Anion Gap 15 (5-15); BUN 32 mg/dL (7-18); BUN/Creat Ratio 9.3 RATIO (10-20); Bilirubin, Direct 2.11 mg/dL (0.00-0.30); Calcium,Total 8.5 mg/dL (8.5-10.1); Chloride 95 mmol/L (98-107); Creatinine, Serum 3.43 mg/dL (0.55-1.02); EST Glomerular Filtration Rate 15 mL/min (>60); Est Glom Filt Rate - Afr Amer 18 mL/min (>60); Estimated Creatinine Clearance 14.81 ml/min; Globulin 3.3 g/dL (2.2-4.2); Glucose 190 mg/dL (74-106); Lipase 219 U/L (73-393); Potassium 3.4 mmol/L (3.5-5.1); Protein, Total 5.9 g/dL (6.4-8.2); Sodium Level 132 mmol/L (136-145); Troponin-I HS < 3 pg/mL (3.0-54.0)
[2022-03-10 11:48] LABS: Lactic Acid 2.8 mmol/L (0.4-1.9)
--- NOTE | 2022-03-10 12:45 | HP.PCM.HOS_ITS ---
HPI - General General Date of Admission: 03/10/22 Date of Service: 03/10/22 Chief Complaint: Dizziness?2 days HPI Narrative 46-year-old female with past medical history of alcoholic liver cirrhosis with ascites, hypertension, type II DM who comes in with complaints of dizziness ongoing for 2 days. Patient stated that a day before admission, she was driving and could not see because everything was blurred, she felt dizzy. She was able to drive home. On the day of admission, this happened again. She got to a railroad track and got started because she could not see outside but she could see inside. She admits to palpitations, feeling weak, feeling jerky movement. She has been having 3 loose stools a day. She is also on spironolactone and Lasix. She denies any fever chills or dysuria or frequency. Patient's blood pressure in the ED was 72/62, heart rate 115, respiratory rate 14, temperature 96.1 F, oxygen sat at 93% on room air. WBC count 12.1, hemoglobin 9.7, platelet count 197, INR is 1.5, sodium is 132, potassium 3.4, chloride 95, bicarbonate 20, BUN 32, creatinine 3.43, previous creatinine was 0.91. UA shows cloudy urine, nitrite negative, leukocyte positive, WBC and bacteria counts were pending. Chest x-ray was unremarkable. Brain CT showed no acute abnormality. Cervical spine CT showed multilevel degenerative changes. [facility] Medical History Alcoholic cirrhosis of liver with ascites Alcoholism Anxiety Ascites Asthma Breast implant status Chronic diarrhea Cirrhosis Closed head injury COVID-19 Diabetes Diabetes Fatty liver Gastritis and duodenitis H. pylori infection History of alcohol abuse HLD (hyperlipidemia) HTN (hypertension) Hypertension Migraines Nicotine abuse Pancreatitis Post-menopausal Recurrent acute pancreatitis SBP (spontaneous bacterial peritonitis) Smoker Transaminitis Home Medications gabapentin 300 mg capsule 300 mg PO BID pain 08/11/21 [History Last Taken 02/16/22] doxepin 75 mg capsule 150 mg PO QHS mood 12/10/21 [History Last Taken 02/16/22] duloxetine 60 mg capsule,delayed release 60 mg PO DAILY depression 12/10/21 [ History Last Taken 02/16/22] losartan 50 mg tablet 50 mg PO DAILY BP 12/10/21 [History Last Taken 02/16/22] metformin 500 mg tablet 500 mg PO BID Check with primary doctor 12/10/21 [History Last Taken 02/16/22] ursodiol 300 mg capsule 300 mg PO BID Check with primary doctor 12/10/21 [History Last Taken 02/16/22] vitamin E 268 mg (400 unit) capsule 536 mg PO DAILY SUPPLEMENT 12/10/21 [History Last Taken 02/16/22] alprazolam 0.25 mg tablet 0.25 - 0.5 mg PO BID PRN Anxiety 02/03/22 [History Last Taken 02/16/22] ondansetron 4 mg disintegrating tablet 4 mg PO Q8H PRN nausea and vomiting #14 tabs 02/09/22 [Rx Last Taken 02/17/22] prednisone 20 mg tablet 20 mg PO BREAKFAST steroid 02/17/22 [History Last Taken 02/16/22] spironolactone 25 mg tablet (Aldactone) 25 mg PO BID bp 02/17/22 [History Last Taken Unknown] ciprofloxacin HCl 500 mg tablet (Cipro) 500 mg PO Q12H #14 tabs 02/20/22 [Rx Last Taken Unknown] famotidine 20 mg tablet 20 mg PO BID #60 tabs 02/20/22 [Rx Last Taken Unknown] furosemide 40 mg tablet 40 mg PO BIDCM water #60 tabs 02/20/22 [Rx Last Taken 02/16/22] lactulose 20 gram/30 mL oral solution 20 g (30 mL) PO Q6H supplement #3,600 mL 02/20/22 [Rx Last Taken 02/16/22] metronidazole 500 mg tablet 500 mg PO Q8H #21 tabs 02/20/22 [Rx Last Taken Unknown] rifaximin 550 mg tablet (Xifaxan) 550 mg PO BID #60 tabs 02/20/22 [Rx Last Taken Unknown] Allergy/AdvReac Type Severity Reaction Status Date / Time azithromycin [From Zithromax] AdvReac Diarrhea Verified 03/10/22 08:53 codeine AdvReac Nausea Verified 03/10/22 08:53 promethazine [From Phenergan] AdvReac Vomiting Verified 03/10/22 08:53 Family History Father Cancer Lung CA with tobacco use history. Heart disease Mother Cancer Hx breast CA. Diabetes Hypertension Other Alcoholic cirrhosis of liver with ascites Surgical History H/O breast augmentation H/O: knee surgery Previous section S/P tonsillectomy and adenoidectomy Social History housing: other details: Lives at home, her 15, 16 year old children live with her. 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 substance use type: does not use ROS ROS Narrative Constitutional: Reports: Malaise, Weakness, Fatigue. Denies: Anorexia, Chills, Fever, Night Sweats, Weight Change Eyes: Denies: Blurred vision, Cataracts, Conjunctivae Inflammation, Pain, Redness, Vision Change HEENT: Denies: Difficulty Hearing, Difficulty Swallowing, Head Aches, Hearing Changes, Sinus Congestion, Sinus Drainage Cardiovascular: Admits to dizziness, palpitations. Denies: Chest Pain, Orthopnea Respiratory: Denies: Cough, Shortness of breath at rest, Sputum production Gastrointestinal: Denies: Abdominal Pain, Nausea, Vomiting Genitourinary: Denies: Dysuria Musculoskeletal: Denies: Joint Pain, Joint stiffness, Joint swelling, Joint Tenderness Skin: Denies: Rash, Wounds Neurological: Denies: Numbness, Tingling, Focal weakness Vital Signs Vital Signs Vital Signs: 03/10/22 08:53 03/10/22 09:34 03/10/22 09:35 Temperature 96.1 F L Temperature Source Temporal Pulse Rate 115 H Respiratory Rate 14 Blood Pressure 72/62 L 83/35 L Blood Pressure Mean 65 51 Pulse Ox 93 Oxygen Delivery Method Room Air Room Air 03/10/22 10:38 03/10/22 11:50 Temperature Temperature Source Pulse Rate 89 87 Respiratory Rate 18 16 Blood Pressure 73/62 L 88/49 L Blood Pressure Mean 65 62 Pulse Ox 97 Oxygen Delivery Method Room Air Room Air Weight Weight: 46.266 kg Body Mass Index (BMI) 16.5 Physical Exam Narrative Physical exam: General: Alert, Oriented x3, Cooperative, No apparent distress HEENT: Atraumatic Oral: Very dry mucosa Neck: Supple Lungs: Clear to auscultation Cardiovascular: HS I+II, regular, no murmurs Abdomen: Bowel Sounds Present, Soft, Non Tender Extremities: No edema Skin: Dry skin, no rashes, no breakdown Neurological: Grossly intact Psych/Mental Status: Appropriate Results Lab / Micro Data Result Diagrams: 03/10/22 10:32 03/10/22 10:03 Labs: Laboratory Results - last 24 hr 03/10/22 09:48: WBC Cancelled, Corrected WBC Cancelled, RBC Cancelled, Hgb Cancelled, Hct Cancelled, MCV Cancelled, MCH Cancelled, MCHC Cancelled, RDW Std Deviation Cancelled, RDW Coeff of Teresas Cancelled, Plt Count Cancelled, MPV Cancelled, Immature Gran % (Auto) Cancelled, Neut % (Auto) Cancelled, Lymph % (Auto) Cancelled, [place] % (Auto) Cancelled, Eos % (Auto) Cancelled, Baso % (Auto) Cancelled, Absolute Neuts (auto) Cancelled, Absolute Lymphs (auto) Cancelled, Total Counted Cancelled, Neutrophils % (Manual) Cancelled, Band Neutrophils % Cancelled, Lymphocytes % (Manual) Cancelled, Monocytes % (Manual) Cancelled, Eosinophils % (Manual) Cancelled, Basophils % (Manual) Cancelled, Metamyelocytes % Cancelled, Myelocytes % Cancelled, Promyelocytes % Cancelled, Blast Cells % Cancelled, Plasma Cell % (Manual) Cancelled, Other Cells % Cancelled, Nucleated RBC % Cancelled, Nucleated RBCs/100 WBC Cancelled, Differential Comment Cancelled, Diff Path Review Cancelled, Hypersegmented Neuts Cancelled, Atypical Lymphocytes Cancelled, Reactive Lymphocytes Cancelled, Smudge Cells Cancelled, Toxic Granulation Cancelled, Toxic Vacuolation Cancelled, Dohle Bodies Cancelled, Earnestine Rods Cancelled, Platelet Estimate Cancelled, Plt Morphology Comment Cancelled, RBC Morphology Cancelled, Polychromasia Cancelled, Hypochromasia Cancelled, Poikilocytosis Cancelled, Basophilic Stippling Cancelled, Anisocytosis Cancelled, Microcytosis Cancelled, Macrocytosis Cancelled, Spherocytes Cancelled, Sickle Cells Cancelled, Target Cells Can celled, Tear Drop Cells Cancelled, Ovalocytes Cancelled, Stomatocytes Cancelled, [place] Bodies Cancelled, [place] Cells Cancelled, Bite Cells Cancelled, Crenated Cell Cancelled, Acanthocytes (Spur) Cancelled, Rouleaux Cancelled, Schistocytes Cancelled 03/10/22 09:48: Ammonia 22.0 03/10/22 10:03: PT 17.9 H, INR 1.5, APTT 32.6 03/10/22 10:03: Sodium 132 L, Potassium 3.4 L, Chloride 95 L, Carbon Dioxide 22.0, Anion Gap 15, BUN 32 H, Creatinine 3.43 H, Estim Creat Clear Calc 14.81, Est GFR (MDRD) Af Amer 18 L, Est GFR (MDRD) Non-Af 15 L, BUN/Creatinine Ratio 9.3 L, Glucose 190 H, Calcium 8.5, Total Bilirubin 2.40 H, Direct Bilirubin 2.11 H, AST 15, ALT 12 L, Alkaline Phosphatase 103, Troponin I High Sens < 3 L, Total Protein 5.9 L, Albumin 2.6 L, Globulin 3.3, Lipase 219 03/10/22 10:03: Ethyl Alcohol 4.0 03/10/22 10:32: WBC 12.1 H, RBC 2.80 L, Hgb 9.7 L, Hct 29.9 L, MCV 106.8 H, MCH 34.6 H, MCHC 32.4, RDW Std Deviation 51.8 H, RDW Coeff of Teressa 13.2, Plt Count 196, MPV 10.9, Immature Gran % (Auto) 0.600, Neut % (Auto) 89.3 H, Lymph % (Auto) 3.1 L, Ruther[place] % (Auto) 5.2, Eos % (Auto) 1.4, Baso % (Auto) 0.4, Absolute Neuts (auto) 10.8 H, Absolute Lymphs (auto) 0.38 L, Nucleated RBC % 0, Differential Comment COMMENT 03/10/22 11:05: Lactic Acid 2.8 H* 03/10/22 11:05: Blood Type AB NEGATIVE, Antibody Screen NEGATIVE Radiology Impression Chest X-Ray 03/10/22 09:07 IMPRESSION: No acute abnormality is seen. Electronically Signed: Denzel Quijano MD at 11:15 EDT , Brain CT 03/10/22 09:09 IMPRESSION: Stable examination. No acute abnormality is seen. Electronically Signed: Denzel Quijano MD at 11:12 EDT , Cervical Spine CT 03/10/22 09:18 IMPRESSION: Multilevel degenerative changes, as described above. Electronically Signed: Denzel Quijano MD at 11:14 EDT , Assessment & Plan Assessment/Plan (1) DAMIR (acute kidney injury): PLAN: Plan 1. DAMIR, pre-renal secondary to dehydration/hypovolemia Patient presented with creatinine of 3.43, previous creatinine is 0.91 Admit to PCU, continue on IV fluids, urine sodium, urine creatinine Hold spironolactone, Lasix, blood pressure meds 2. Hypertension/hypovolemia, responsive to fluids, continue on IV fluids Hold blood pressure medications 3. Hypokalemia, replaced, recheck in am 4. Hyponatremia, acute, secondary dehydration, will trend 5. Lactic acidosis, likely secondary to dehydration and metformin use Hold metformin, trend lactic acid 6. Chronic liver disease/alcoholic liver cirrhosis, not decompensated at the moment We will hold on Lasix, spironolactone Continue lactulose and rifaximin 7. Type II DM, on metformin, hold metformin, continue on insulin sliding scale blood glucose checks 8. DVT PPx - SCDs Charges/Coding Visit Charges Inpatient E&M: 44137 Init Hosp L3
[2022-03-10 13:06] LABS: Bacteria 0 SEEN /hpf (None Seen); Mucous, Urine 0 SEEN /hpf (<or=2+); Red Blood Cells-Urine 0 SEEN /hpf (0-5)
[2022-03-10 13:09] LABS: Color, Urine Yellow (Yellow); Glucose, Dipstick Normal (Normal); Ketone-Dipstick Negative (Negative); Leukocyte Esterase-Dipstick 100 /ul (Negative); Nitrite-Dipstick Negative (Negative); Occult Blood-Urine Negative /ul (Negative); Protein-Dipstick 15 mg/dl (Negative); Urine Bilirubin Dipstick Negative (Negative); Urine Clarity Sl. Cloudy (Clear); Urine Urobilinogen Normal (Normal)
[2022-03-10 13:17] LABS: Squamous Epithelial Cells - UA 5-10 SEEN /hpf (5-10); White Blood Cells 10-25 SEEN /hpf (0-5)
[2022-03-10 13:55] LABS: Urine Sodium 48 mmol/L (Not Establ.)
--- NOTE | 2022-03-10 14:28 | EKG12_ITS ---
Test Reason : Blood Pressure : / mmHG Vent. Rate : 077 BPM Atrial Rate : 077 BPM P-R Int : 134 ms QRS Dur : 078 ms QT Int : 412 ms P-R-T Axes : 020 062 032 degrees QTc Int : 466 ms Normal sinus rhythm Normal ECG When compared with ECG of 10-MAR-2022 09:16, MANUAL COMPARISON REQUIRED, DATA IS UNCONFIRMED Confirmed by EDUARDO BECK, SIN ([id number]), acquisitions editor NATALYA ALMAZAN ([id number]) on 03/12/2022 8:17:24 AM Referred By: Kenna Confirmed By:TELMA CLARK MD
[2022-03-10 15:10] LABS: Reflex Lactate? Y
--- NOTE | 2022-03-10 17:19 | PCM.CONS.GEN ---
Assessment & Plan Assessment/Plan (1) DAMIR (acute kidney injury): PLAN: Acute kidney injury does not seem to be hepatorenal syndrome. I think it is prerenal azotemia as she is not having any symptoms of encephalopathy at this time. I think we should get a urine sodium to see if her urine sodium is high which would be more consistent with hepatorenal syndrome versus a low sodium will be associated with prerenal azotemia. I think she could also have possible ATN due to frequent paracentesis and she uses diuretics. Recommend to hold diuretic therapy today to get a bolus of fluid of 1 L and) of fluid should be set at her 110 mL/h. (2) Alcoholic cirrhosis of liver with ascites: PLAN: She has a meld of 20. She has drank alcohol within the last month. I cannot confirm at alcohol she was drinking. At this time she is showing minimal jaundice, no encephalopathy, no signs of GI bleeding which she is in renal failure. Hopefully holding her diuretic therapy will allow her to progress in the right leg. Recommend Xifaxan 5 to 50 mg p.o. twice daily, 30 cc of lactulose every 6 hours. HPI Consult Data Date of Consult: 03/10/22 HPI Narrative Reason for Consultation: Cirrhosis HPI Narrative: ZARA TATE, is a 46 F who presents to the ED with worsening lethargy and fatigue. She also does fall frequently.? She does not have a headache but she states that her vision is somewhat blurred at times.? This is worse when she stands and moves.? She states she did hit her head recently but not severely and she did not have any loss of consciousness.? Patient states that she does have chronic diarrhea and she states she has noted some black stools.? This was in the past to be secondary to lactulose therapy that she has to take on a daily basis because of her history of cirrhosis. She has not had bloody stools or coffee-ground emesis/hematemesis.? She has not had to have paracentesis since her last one prior to her previous visit to the emergency room.? She states that her stomach is not distended, and she has no abdominal pain.? Well-known to the GI service due to history cirrhosis with a meld of 10 that recently increased to 20, child Montes class B/C complicated by encephalopathy. ?At that visit we discussed positive H pylori result on biopsy from EGD done 08/13/21. We treated H pylori with Pepto bismol, levofloxacin, pantoprazole and metronidazole. I spoke to her PCP Dr Mullins yesterday; pt had been unclear about treatment for H. pylori infection.? Today Zara states she finished all the meds for treating H. pylori.? She says the only new medication she has been prescribed that she is not taking is ursodiol, since she was not sure what it was for. Liver, core biopsy: Consistent with cirrhosis with extensive macro-and microvesicular steatosis.? We have referred her to [facility] liver transplant group for, age; we have received notification from the liver transplant nurse coordinator that they have been in contact with her; Zara reports she has orders to get blood work done as the initial step, then the consult appointment will be made. She reports she has not been feeling well; tired, no energy. She has been more forgetful, this really bothers her son.? We did not use lactulose before because of her significant diarrhea, however she would like to try lactulose now.? She denies any bleeding.? She denies pruritus.? No jaundice.? She has had some falls recently, she attributes that to being very weak, she would like to do physical therapy. She presented via the ED on 02/03/2022 with a complaint of abdominal pain and swelling. She complained of abdominal pain and swelling over the last few days prior to admission, with associated nausea and vomiting. She has never had a paracentesis. She was sent to the ED for the possible paracentesis.? She underwent large-volume paracentesis and did not show any signs of SBP. She is back to the ED on 02/17/2022 with again worsening lethargy and a distended abdomen.? She underwent (paracentesis today and it did not show any of SBP.? Yesterday when she was admitted she was noted to be in acute renal failure.? In the ED I requested that she get started on octreotide, midodrine and albumin.? Her kidney function has gotten better but she is still in a lot of pain.? I monica an alcohol level and it was almost 3.? During her last 3 years she has had alcohol levels in the 200s and 300s.? She was treated last visit for acute alcoholic hepatitis after her Madrey score was at 50.? She was treated with prednisone and there was not continued as an outpatient.? Her bilirubin was 9 and is down to 6.8. AST and ALT are 46/15, alkaline phosphatase 108. PFSH Medical History Alcoholic cirrhosis of liver with ascites Alcoholism Anxiety Ascites Asthma Breast implant status Chronic diarrhea Cirrhosis Closed head injury COVID-19 Diabetes Diabetes Fatty liver Gastritis and duodenitis H. pylori infection History of alcohol abuse HLD (hyperlipidemia) HTN (hypertension) Hypertension Migraines Nicotine abuse Pancreatitis Post-menopausal Recurrent acute pancreatitis SBP (spontaneous bacterial peritonitis) Smoker Transaminitis Home Medications gabapentin 300 mg capsule 600 mg PO DAILY pain 08/11/21 [History Last Taken 03/10/22] doxepin 75 mg capsule 150 mg PO QHS mood 12/10/21 [History Last Taken 03/09/22] duloxetine 60 mg capsule,delayed release 60 mg PO DAILY depression 12/10/21 [History Last Taken 03/10/22] metformin 500 mg tablet 500 mg PO BID Check with primary doctor 12/10/21 [History Last Taken 03/10/22] ursodiol 300 mg capsule 300 mg PO BID Check with primary doctor 12/10/21 [History Last Taken 03/10/22] ondansetron 4 mg disintegrating tablet 4 mg PO Q8H PRN nausea and vomiting #14 tabs 02/09/22 [Rx Last Taken 3 Days Ago ~03/07/22] prednisone 20 mg tablet 20 mg PO BREAKFAST steroid 02/17/22 [History Last Taken 03/10/22] spironolactone 25 mg tablet (Aldactone) 25 mg PO BID bp 02/17/22 [History Last Taken 03/10/22] ciprofloxacin HCl 500 mg tablet (Cipro) 500 mg PO Q12H #14 tabs 02/20/22 [Rx Last Taken 03/10/22] famotidine 20 mg tablet 20 mg PO BID #60 tabs 02/20/22 [Rx Last Taken 03/09/22] metronidazole 500 mg tablet 500 mg PO Q8H #21 tabs 02/20/22 [Rx Last Taken 03/10/22] rifaximin 550 mg tablet (Xifaxan) 550 mg PO BID #60 tabs 02/20/22 [Rx Last Taken 03/10/22] cholecalciferol (vitamin D3) 25 mcg (1,000 unit) tablet (Vitamin D3) 25 mcg PO QHS 03/10/22 [History Last Taken 03/09/22] furosemide 40 mg tablet 40 mg PO DAILY water 03/10/22 [History Last Taken 03/10/22] gabapentin 300 mg capsule 300 mg PO QHS 03/10/22 [History Last Taken 03/09/22] lactulose 10 gram/15 mL oral solution 30 ml PO BID 03/10/22 [History Last Taken 03/09/22] losartan 25 mg tablet 25 mg PO DAILY 03/10/22 [History Last Taken 03/10/22] midodrine 5 mg tablet 10 mg PO TID 03/10/22 [History Last Taken 03/10/22] Allergy/AdvReac Type Severity Reaction Status Date / Time azithromycin [From Zithromax] AdvReac Diarrhea Verified 03/10/22 08:53 codeine AdvReac Nausea Verified 03/10/22 08:53 promethazine [From Phenergan] AdvReac Vomiting Verified 03/10/22 08:53 Family History Father Cancer Lung CA with tobacco use history. Heart disease Mother Cancer Hx breast CA. Diabetes Hypertension Other Alcoholic cirrhosis of liver with ascites Surgical History H/O breast augmentation H/O: knee surgery Previous section S/P tonsillectomy and adenoidectomy Social History housing: other details: Lives at home, her 15, 16 year old children live with her. 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 substance use type: does not use ROS ROS Narrative Constitutional: Reports: Malaise, Weakness, Fatigue. Denies: Anorexia, Chills, Fever, Night Sweats, Weight Change Eyes: Denies: Blurred vision, Cataracts, Conjunctivae Inflammation, Pain, Redness, Vision Change HEENT: Denies: Difficulty Hearing, Difficulty Swallowing, Head Aches, Hearing Changes, Sinus Congestion, Sinus Drainage Cardiovascular: Admits to dizziness, palpitations. Denies: Chest Pain, Orthopnea Respiratory: Denies: Cough, Shortness of breath at rest, Sputum production Gastrointestinal: Denies: Abdominal Pain, Nausea, Vomiting Genitourinary: Denies: Dysuria Musculoskeletal: Denies: Joint Pain, Joint stiffness, Joint swelling, Joint Tenderness Skin: Denies: Rash, Wounds Neurological: Denies: Numbness, Tingling, Focal weakness Physical Exam Narrative Physical exam: General: Alert, Oriented x3, Cooperative, No apparent distress HEENT: Atraumatic Oral: Very dry mucosa Neck: Supple Lungs: Clear to auscultation Cardiovascular: HS I+II, regular, no murmurs Abdomen: Bowel Sounds Present, Soft, Non Tender Extremities: No edema Skin: Dry skin, no rashes, no breakdown Neurological: Grossly intact Psych/Mental Status: Appropriate Medical Records Data Medical Nutrition Assessment Dietitian: Malnutrition Criteria Met Start: 03/10/22 16:18 Freq: Status: Active Protocol: Document 03/10/22 16:18 RMA (Rec: 03/10/22 16:18 RMA [id number]) Nutrition Malnutrition Evidence of Malnutrition Exists Yes Malnutrition (severe): Chronic Evidenced By Suboptimal Energy Intake ( Severe),Weight Loss (Severe), Physical Changes (Severe) Clinical Problem Chronic Disease or Condition Related Malnutrition Etiology Severe protein-calorie malnutrition in the context of chronic disease related to ETOH abuse and inadequate oral intake Signs/Symptoms as evidenced by 15% wt loss x 6 months, BMI 16.8, muscle/fat wasting in the face, clavicle , arms and legs and PO meeting less than 50% estimated nutrition needs x past 6 months Status Active Problem Recommendation Dietitian Recommendations/Changes Given malnutrition criteria, will liberalize diet to regular/no added salt. Will add 120 ml glucerna shake TID w/ meals and TID w/ medpass. Monitor need to restrict carbohydrates once intake established w/ meals. Jevity as needed for skin integrity. Possible consideration for TF if PO and weight continue to decline. Lab / Micro Data Result Diagrams: 03/10/22 10:32 03/10/22 10:03 Labs: Laboratory Results - last 24 hr 03/10/22 09:48: WBC Cancelled, Corrected WBC Cancelled, RBC Cancelled, Hgb Cancelled, Hct Cancelled, MCV Cancelled, MCH Cancelled, MCHC Cancelled, RDW Std Deviation Cancelled, RDW Coeff of Teressa Cancelled, Plt Count Cancelled, MPV Cancelled, Immature Gran % (Auto) Cancelled, Neut % (Auto) Cancelled, Lymph % (Auto) Cancelled, [place] % (Auto) Cancelled, Eos % (Auto) Cancelled, Baso % (Auto) Cancelled, Absolute Neuts (auto) Cancelled, Absolute Lymphs (auto) Cancelled, Total Counted Cancelled, Neutrophils % (Manual) Cancelled, Band Neutrophils % Cancelled, Lymphocytes % (Manual) Cancelled, Monocytes % (Manual) Cancelled, Eosinophils % (Manual) Cancelled, Basophils % (Manual) Cancelled, Metamyelocytes % Cancelled, Myelocytes % Cancelled, Promyelocytes % Cancelled, Blast Cells % Cancelled, Plasma Cell % (Manual) Cancelled, Other Cells % Cancelled, Nucleated RBC % Cancelled, Nucleated RBCs/100 WBC Cancelled, Differential Comment Cancelled, Diff Path Review Cancelled, Hypersegmented Neuts Cancelled, Atypical Lymphocytes Cancelled, Reactive Lymphocytes Cancelled, Smudge Cells Cancelled, Toxic Granulation Cancelled, Toxic Vacuolation Cancelled, Dohle Bodies Cancelled, Earnestine Rods Cancelled, Platelet Estimate Cancelled, Plt Morphology Comment Cancelled, RBC Morphology Cancelled, Polychromasia Cancelled, Hypochromasia Cancelled, Poikilocytosis Cancelled, Basophilic Stippling Cancelled, Anisocytosis Cancelled, Microcytosis Cancelled, Macrocytosis Cancelled, Spherocytes Cancelled, Sickle Cells Cancelled, Target Cells Cancelled, Tear Drop Cells Cancelled, Ovalocytes Cancelled, Stomatocytes Cancelled, [place] Bodies Cancelled, Steven Cells Cancelled, Bite Cells Cancelled, Crenated Cell Cancelled, Acanthocytes (Spur) Cancelled, Rouleaux Cancelled, Schistocytes Cancelled 03/10/22 09:48: Ammonia 22.0 03/10/22 10:03: PT 17.9 H, INR 1.5, APTT 32.6 03/10/22 10:03: Sodium 132 L, Potassium 3.4 L, Chloride 95 L, Carbon Dioxide 22.0, Anion Gap 15, BUN 32 H, Creatinine 3.43 H, Estim Creat Clear Calc 14.81, Est GFR (MDRD) Af Amer 18 L, Est GFR (MDRD) Non-Af 15 L, BUN/Creatinine Ratio 9.3 L, Glucose 190 H, Calcium 8.5, Total Bilirubin 2.40 H, Direct Bilirubin 2.11 H, AST 15, ALT 12 L, Alkaline Phosphatase 103, Troponin I High Sens < 3 L, Total Protein 5.9 L, Albumin 2.6 L, Globulin 3.3, Lipase 219 03/10/22 10:03: Ethyl Alcohol 4.0 03/10/22 10:32: WBC 12.1 H, RBC 2.80 L, Hgb 9.7 L, Hct 29.9 L, MCV 106.8 H, MCH 34.6 H, MCHC 32.4, RDW Std Deviation 51.8 H, RDW Coeff of Teressa 13.2, Plt Count 196, MPV 10.9, Immature Gran % (Auto) 0.600, Neut % (Auto) 89.3 H, Lymph % (Auto) 3.1 L, [place] % (Auto) 5.2, Eos % (Auto) 1.4, Baso % (Auto) 0.4, Absolute Neuts (auto) 10.8 H, Absolute Lymphs (auto) 0.38 L, Nucleated RBC % 0, Differential Comment COMMENT 03/10/22 11:05: Lactic Acid 2.8 H* 03/10/22 11:05: Blood Type AB NEGATIVE, Antibody Screen NEGATIVE 03/10/22 12:55: Urine Color Yellow, Urine Clarity Sl. Cloudy, Urine pH 6.0, Ur Specific [place] 1.010, Urine Protein 15 H, Urine Glucose (UA) Normal, Urine Ketones Negative, Urine Occult Blood Negative, Urine Nitrite Negative, Urine Bilirubin Negative, Urine Urobilinogen Normal, Ur Leukocyte Esterase 100 H, Urine RBC 0 SEEN, Urine WBC 10-25 SEEN, Ur Squamous Epith Cells 5-10 SEEN, Urine Bacteria 0 SEEN, Urine Mucus 0 SEEN 03/10/22 12:55: Ur Random Sodium 48, Urine Creatinine 51.80 Micro: Microbiology 03/10/22 12:35 Stool Stool Occult Blood (LINDA) - Final Radiology Impression Chest X-Ray 03/10/22 09:07 IMPRESSION: No acute abnormality is seen. Electronically Signed: Denzel Quijano MD at 11:15 EDT , Brain CT 03/10/22 09:09 IMPRESSION: Stable examination. No acute abnormality is seen. Electronically Signed: Denzel Quijano MD at 11:12 EDT , Cervical Spine CT 03/10/22 09:18 IMPRESSION: Multilevel degenerative changes, as described above. Electronically Signed: Denzel Quijano MD at 11:14 EDT ,
[2022-03-10 17:39] LABS: Lactic Acid 4.1 mmol/L (0.4-1.9)
[2022-03-10] MEDS: Insulin Lispro 100 UNIT/ML INSULN.PEN SC ×2 (18:15→21:48)
[2022-03-10] MEDS: Potassium Chloride Oral Tablet 20 MEQ 40 MEQ PO (18:21)
[2022-03-10 18:30] LABS: Bedside Glucose 280 mg/dL (74-106)
[2022-03-10] MEDS: 0.9% Normal Saline 1,000 ML 150 ML IV (19:26)
[2022-03-10] MEDS: Glucerna Shake 120 ML LIQUID PO (19:26)
--- NOTE | 2022-03-10 21:23 | PN.HOSP_ITS ---
Hospitalist Note Patient reporting significant chronic lower extremity neuropathic pain and requesting addition back of her gabapentin. Reviewed other medications and discussed with staff that medications have been on hold secondary to her acute presentation especially with her significant acute kidney injury. Did review her renal function with most recent creatinine clearance 14 and at this time she would be appropriate for a 90% reduction so essentially she would only be able to have 300 mg once daily therefore we will continue her nightly 300 mg once d aily which was discussed with nursing staff.
[2022-03-10] MEDS: predniSONE 20 MG Tablet PO (21:48)
[2022-03-10] MEDS: Lactulose 20 GM/30 ML UDC PO (21:49)
[2022-03-10] MEDS: Midodrine HCl 5 MG Tablet 10 MG PO (21:49)
[2022-03-10] MEDS: Ursodiol 250 MG Tablet PO (21:50)
[2022-03-10] MEDS: rifAXIMin 550 MG Tablet PO (21:50)
[2022-03-10] MEDS: Gabapentin 300 MG Capsule PO (22:01)
[2022-03-10] MEDS: Ondansetron 4 MG/2 ML Vial IV (22:11)
[2022-03-10 22:32] LABS: Bedside Glucose 235 mg/dL (74-106)
[2022-03-11] VITALS (11 sets, daily range): BP systolic 100–116; BP diastolic 60–71; PULSE 72–111; RESP 16–18; TEMP 36.3–37.3; O2SAT 94–100
[2022-03-11] MEDS: 0.9% Normal Saline 1,000 ML 150 ML IV ×3 (01:29→17:32)
[2022-03-11] MEDS: proCHLORPERazine 10 MG/2 ML Vial IV ×3 (04:02→20:26)
[2022-03-11 04:55] LABS: Absolute Lymphocyte Count 0.51 X10^3/uL (0.83-4.51); Absolute Neutrophil Count 7.3 X10^3/uL (2.0-7.7); Basophil# 0.02 X10^3/uL; Basophil% 0.2 % (0-1); Eosinophil# 0.01 X10^3/uL; Eosinophils% 0.1 % (0-5); Hematocrit 30.4 % (37-47); Hemoglobin 9.9 g/dL (12.0-15.0); Lymphocyte # 0.51 X10^3/ul (0.83-4.51); Lymphocyte % 6.2 % (19-41); Mean Corp Hgb Conc 32.6 g/dL (32-36); Mean Corpuscular Hgb 34.1 pg (27.0-32.0); Mean Corpuscular Volume 104.8 fL (81-99); Mean Platelet Vol. 10.4 fl (6.2-12.0); Monocyte# 0.32 X10^3/uL; Monocyte% 3.9 % (0-10); NRBC Flagged by Analyzer 0 % (0-5); Neutrophil # 7.33 X10^3/uL (2.7-7.7); Neutrophil % 89.1 % (47-70); POSITIVE DIFFERENTIAL YES; Platelet Count 207 K/mm3 (150-450); RBC Distribution Width SD 50.3 fl (35.1-43.9); White Blood Count 8.2 K/mm3 (4.4-11.0)
[2022-03-11 05:26] LABS: ALB/GLOB Ratio 0.8 RATIO (0.9-2.4); AST(SGOT) 16 U/L (15-37); Alanine Aminotransfer ALT/SGPT 12 U/L (13-56); Albumin, Serum 2.4 g/dL (3.2-5.0); Alkaline Phosphatase 101 U/L (45-117); Anion Gap 8 (5-15); BUN 27 mg/dL (7-18); BUN/Creat Ratio 15.7 RATIO (10-20); Calcium,Total 7.8 mg/dL (8.5-10.1); Chloride 105 mmol/L (98-107); Creatinine, Serum 1.72 mg/dL (0.55-1.02); EST Glomerular Filtration Rate 34 mL/min (>60); Est Glom Filt Rate - Afr Amer 41 mL/min (>60); Estimated Creatinine Clearance 30.08 ml/min; Globulin 3.2 g/dL (2.2-4.2); Glucose 273 mg/dL (74-106); Magnesium 1.2 mg/dL (1.6-2.6); Phosphorus 2.6 mg/dL (2.5-4.9); Potassium 4.2 mmol/L (3.5-5.1); Protein, Total 5.6 g/dL (6.4-8.2); Sodium Level 138 mmol/L (136-145)
[2022-03-11 05:38] LABS: Differential Indicated SCAN CRITERIA MET
[2022-03-11 06:04] LABS: Differential Comment SCANNED
[2022-03-11] MEDS: Insulin Lispro 100 UNIT/ML INSULN.PEN SC ×4 (06:55→21:36)
[2022-03-11 07:15] LABS: Bedside Glucose 247 mg/dL (74-106)
[2022-03-11] MEDS: rifAXIMin 550 MG Tablet PO ×2 (08:04)
[2022-03-11] MEDS: Glucerna Shake 120 ML LIQUID PO ×2 (08:04→11:58)
[2022-03-11] MEDS: Midodrine HCl 5 MG Tablet 10 MG PO ×3 (08:04→16:22)
[2022-03-11] MEDS: Ursodiol 250 MG Tablet PO ×2 (08:04→21:35)
[2022-03-11] MEDS: predniSONE 20 MG Tablet PO (08:08)
[2022-03-11] MEDS: Magnesium Sulfate 4gm/100mL 4 GM/100 ML IV.SOLN. IV (09:39)
[2022-03-11] MEDS: Lactulose 20 GM/30 ML UDC PO ×2 (10:49→21:36)
[2022-03-11 11:11] LABS: Bedside Glucose 339 mg/dL (74-106)
--- NOTE | 2022-03-11 11:20 | CASEMGMT ---
Readmission chart review: 02/03-02/09/22 Ascites d/t alcoholic liver disease 02/17-02/20/22 Hypokalemia, DAMIR 03/10/22-current DAMIR Pt with known alcoholic cirrhosis with multiple admits d/t same. Per notes, pt is not a candidate for transplant d/t to still drinking ETOH. Pt is active with Dr. Munson, [facility] and has next appt scheduled for 04/05/22. Pt has had several scripts for OP therapy in recent past but no showed/cancelled 10 of them but has been setup again for 03/22/22. Pt had 1st ever paracentesis on 02/04 with 1150ml out then had repeats on 02/08 for 1050ml and 02/18 950ml. All of these were done while inpatient. Pt was seen in the ED on 03/03/22 for hyperglycemia/fall and pt's ETOH level was elevated at that time, 108. Pt was discharged home. Pt informs this RN CM that she has not had a drink in 3 months despite the elevated level documented on 03/03/22. Pt states Dr. Munson is working on getting her set up with another liver doctor in [place] but she does not have an appt yet. Pt states has been taking all meds as prescribed. Pt states was to f/u with Dr. Mullins yesterday but ended up in ED and missed appt. Call to Susanna' office and they state pt was scheduled yesterday at 1400 for hospital f/u. Pt also has appt scheduled with her office again on 03/29/22 at 1400 and this was placed on pt d/c instructions as well as her other appts with Dr. Munson and therapy per pt request. Pt also updated on all, voices understanding. CM to follow for any further discharge planning/needs. SStaten RN CM
--- NOTE | 2022-03-11 11:58 | PN.HOSP_ITS ---
Subjective Subjective Follow-up on DAMIR: Patient was seen and examined. Denied any new complaints. She feels much improved. She is less dizzy. Denies any palpitations or shortness of breath Objective Data Objective Data Vital Signs: Vital Signs Temp Pulse Resp BP Pulse Ox O2 Del Method 97.5 F L 86 18 100/62 94 Room Air 03/11/22 10:00 03/11/22 10:00 03/11/22 10:00 03/11/22 10:00 03/11/22 10:00 03/11/22 10:18 Oxygen Delivery Method Room Air Weight: 47.128 kg Body Mass Index (BMI) 16.7 Intake & Output: Intake and Output for Last 24 Hours 03/09/22 03/10/22 03/11/22 23:59 23:59 23:59 Intake Total 2300 / 2400 2582.5 / 2582.5 Balance 2300 / 2400 2582.5 / 2582.5 Medical Nutrition Assessment Dietitian: Malnutrition Criteria Met Start: 03/10/22 16:18 Freq: Status: Active Protocol: Document 03/10/22 16:18 RMA (Rec: 03/10/22 16:18 RMA [id number]) Nutrition Malnutrition Evidence of Malnutrition Exists Yes Malnutrition (severe): Chronic Evidenced By Suboptimal Energy Intake ( Severe),Weight Loss (Severe), Physical Changes (Severe) Clinical Problem Chronic Disease or Condition Related Malnutrition Etiology Severe protein-calorie malnutrition in the context of chronic disease related to ETOH abuse and inadequate oral intake Signs/Symptoms as evidenced by 15% wt loss x 6 months, BMI 16.8, muscle/fat wasting in the face, clavicle , arms and legs and PO meeting less than 50% estimated nutrition needs x past 6 months Status Active Problem Recommendation Dietitian Recommendations/Changes Given malnutrition criteria, will liberalize diet to regular/no added salt. Will add 120 ml glucerna shake TID w/ meals and TID w/ medpass. Monitor need to restrict carbohydrates once intake established w/ meals. Jevity as needed for skin integrity. Possible consideration for TF if PO and weight continue to decline. Lab / Micro Data Result Diagrams: 03/11/22 04:31 03/11/22 04:31 Labs: Laboratory Results - last 24 hr 03/10/22 11:05: Blood Type AB NEGATIVE, Antibody Screen NEGATIVE 03/10/22 12:55: Urine Color Yellow, Urine Clarity Sl. Cloudy, Urine pH 6.0, Ur Specific [place] 1.010, Urine Protein 15 H, Urine Glucose (UA) Normal, Urine Ketones Negative, Urine Occult Blood Negative, Urine Nitrite Negative, Urine Bilirubin Negative, Urine Urobilinogen Normal, Ur Leukocyte Esterase 100 H, Urine RBC 0 SEEN, Urine WBC 10-25 SEEN, Ur Squamous Epith Cells 5-10 SEEN, Urine Bacteria 0 SEEN, Urine Mucus 0 SEEN 03/10/22 12:55: Ur Random Sodium 48, Urine Creatinine 51.80 03/10/22 16:50: Lactic Acid 4.1 H* 03/10/22 18:11: POC Glucose 280 H 03/10/22 21:46: POC Glucose 235 H 03/11/22 04:31: WBC 8.2, RBC 2.90 L, Hgb 9.9 L, Hct 30.4 L, MCV 104.8 H, MCH 34.1 H, MCHC 32.6, RDW Std Deviation 50.3 H, RDW Coeff of Teressa 13.0, Plt Count 207, MPV 10.4, Immature Gran % (Auto) 0.500, Neut % (Auto) 89.1 H, Lymph % (Auto) 6.2 L, [place] % (Auto) 3.9, Eos % (Auto) 0.1, Baso % (Auto) 0.2, Absolute Neuts (auto) 7.3, Absolute Lymphs (auto) 0.51 L, Nucleated RBC % 0, Differential Comment SCANNED 03/11/22 04:31: Sodium 138, Potassium 4.2, Chloride 105, Carbon Dioxide 25.0, Anion Gap 8, BUN 27 H, Creatinine 1.72 H, Estim Creat Clear Calc 30.08, Est GFR (MDRD) Af Amer 41 L, Est GFR (MDRD) Non-Af 34 L, BUN/Creatinine Ratio 15.7, Glucose 273 H, Calcium 7.8 L, Phosphorus 2.6, Magnesium 1.2 L, Total Bilirubin 1.70 H, AST 16, ALT 12 L, Alkaline Phosphatase 101, Total Protein 5.6 L, Albumin 2.4 L, Globulin 3.2, Albumin/Globulin Ratio 0.8 L 03/11/22 06:48: POC Glucose 247 H 03/11/22 10:48: POC Glucose 339 H Micro: Microbiology 03/10/22 12:55 Urine, Clean Catch Urine Culture - Preliminary Culture exhibits no growth. 03/10/22 12:35 Stool Stool Occult Blood (LINDA) - Final Physical Exam Narrative Physical exam: General: Alert, Oriented x3, Cooperative, No apparent distress HEENT: Atraumatic Oral: Moist mucosa Neck: Supple Lungs: Clear to auscultation Cardiovascular: HS I+II, regular, no murmurs Abdomen: Bowel Sounds Present, Soft, Non Tender Extremities: No edema Skin: Dry skin, no rashes, no breakdown Neurological: Grossly intact Psych/Mental Status: Appropriate Assessment & Plan Assessment/Plan (1) DAMIR (acute kidney injury): PLAN: Plan 1. DAMIR, pre-renal secondary to dehydration/hypovolemia, improving Patient presented with creatinine of 3.43, previous creatinine is 0.91 Creatinine today is 1.72, Continue to hold spironolactone, Lasix, blood pressure meds Continue IV 2. Hypertension/hypovolemia, improved, responsive to fluids, continue on IV f luids Hold blood pressure medications 3. Hypokalemia, resolved 4. Hyponatremia, acute, secondary dehydration, resolved 5. Lactic acidosis, likely secondary to dehydration and metformin use Hold metformin, trend lactic acid 6. Chronic liver disease/alcoholic liver cirrhosis, not decompensated at the moment Continue to hold on Lasix, spironolactone Continue lactulose and rifaximin 7. Type II DM, on metformin, hold metformin, continue on insulin sliding scale blood glucose checks 8. Severe protein calorie malnutrition, wrapper sheeter consulted, regular diet, on supplements 9. DVT PPx - SCDs Charges/Coding Visit Charges Inpatient E&M: 49061 Subs Hosp L2
[2022-03-11] MEDS: Ondansetron 4 MG/2 ML Vial IV (14:10)
[2022-03-11] MEDS: Mag Hydrox/Al Hydrox/Simeth 30 ML UDC PO ×2 (16:21→22:24)
[2022-03-11 16:45] LABS: Bedside Glucose 387 mg/dL (74-106)
--- NOTE | 2022-03-11 18:46 | PCM.PROGNOTE ---
Subjective Subjective Patient is feeling a little bit better as today.? She did have 2 bowel movement today.? She has not been going to the bathroom much.? She does feel better than yesterday. She states that she is having some memory issues and is not sleeping well but overall she feels at baseline.? She denies any fevers.? She denies any dizziness.? She says that her appetite is still very poor. Objective Data Objective Data Vital Signs: Vital Signs Temp Pulse Resp BP Pulse Ox O2 Del Method 97.3 F L 79 18 116/60 100 Room Air 03/11/22 15:45 03/11/22 15:45 03/11/22 15:45 03/11/22 15:45 03/11/22 15:45 03/11/22 15:45 Oxygen Delivery Method Room Air Weight: 103 lb 14.391 oz Body Mass Index (BMI) 16.7 Intake & Output: Intake and Output for Last 24 Hours 03/09/22 03/10/22 03/11/22 23:59 23:59 23:59 Intake Total 2300 / 2400 4075.0 / 4075.0 Balance 2300 / 2400 4075.0 / 4075.0 Medical Nutrition Assessment Dietitian: Malnutrition Criteria Met Start: 03/10/22 16:18 Freq: Status: Active Protocol: Document 03/10/22 16:18 RMA (Rec: 03/10/22 16:18 RMA [id number]) Nutrition Malnutrition Evidence of Malnutrition Exists Yes Malnutrition (severe): Chronic Evidenced By Suboptimal Energy Intake ( Severe),Weight Loss (Severe), Physical Changes (Severe) Clinical Problem Chronic Disease or Condition Related Malnutrition Etiology Severe protein-calorie malnutrition in the context of chronic disease related to ETOH abuse and inadequate oral intake Signs/Symptoms as evidenced by 15% wt loss x 6 months, BMI 16.8, muscle/fat wasting in the face, clavicle , arms and legs and PO meeting less than 50% estimated nutrition needs x past 6 months Status Active Problem Recommendation Dietitian Recommendations/Changes Given malnutrition criteria, will liberalize diet to regular/no added salt. Will add 120 ml glucerna shake TID w/ meals and TID w/ medpass. Monitor need to restrict carbohydrates once intake established w/ meals. Jevity as needed for skin integrity. Possible consideration for TF if PO and weight continue to decline. Lab / Micro Data Result Diagrams: 03/11/22 04:31 03/11/22 04:31 Labs: Laboratory Results - last 24 hr 03/10/22 21:46: POC Glucose 235 H 03/11/22 04:31: WBC 8.2, RBC 2.90 L, Hgb 9.9 L, Hct 30.4 L, MCV 104.8 H, MCH 34.1 H, MCHC 32.6, RDW Std Deviation 50.3 H, RDW Coeff of Teressa 13.0, Plt Count 207, MPV 10.4, Immature Gran % (Auto) 0.500, Neut % (Auto) 89.1 H, Lymph % (Auto) 6.2 L, [place] % (Auto) 3.9, Eos % (Auto) 0.1, Baso % (Auto) 0.2, Absolute Neuts (auto) 7.3, Absolute Lymphs (auto) 0.51 L, Nucleated RBC % 0, Differential Comment SCANNED 03/11/22 04:31: Sodium 138, Potassium 4.2, Chloride 105, Carbon Dioxide 25.0, Anion Gap 8, BUN 27 H, Creatinine 1.72 H, Estim Creat Clear Calc 30.08, Est GFR (MDRD) Af Amer 41 L, Est GFR (MDRD) Non-Af 34 L, BUN/Creatinine Ratio 15.7, Glucose 273 H, Calcium 7.8 L, Phosphorus 2.6, Magnesium 1.2 L, Total Bilirubin 1.70 H, AST 16, ALT 12 L, Alkaline Phosphatase 101, Total Protein 5.6 L, Albumin 2.4 L, Globulin 3.2, Albumin/Globulin Ratio 0.8 L 03/11/22 06:48: POC Glucose 247 H 03/11/22 10:48: POC Glucose 339 H 03/11/22 16:20: POC Glucose 387 H Micro: Microbiology 03/10/22 12:55 Urine, Clean Catch Urine Culture - Preliminary Culture exhibits no growth. 03/10/22 12:35 Stool Stool Occult Blood (LINDA) - Final Physical Exam Narrative Physical exam: General: Alert, Oriented x3, Cooperative, No apparent distress HEENT: Atraumatic Oral: Moist mucosa Neck: Supple Lungs: Clear to auscultation Cardiovascular: HS I+II, regular, no murmurs Abdomen: Bowel Sounds Present, Soft, Non Tender Extremities: No edema Skin: Dry skin, no rashes, no breakdown Neurological: Grossly intact Psych/Mental Status: Appropriate Assessment & Plan Assessment/Plan (1) DAMIR (acute kidney injury): PLAN: I think her acute kidney injury was secondary to diuretic therapy in the setting of poor appetite resulting in prerenal azotemia. I do not think she has ATN or hepatorenal syndrome at this time. She is still losing weight. (2) Alcoholic cirrhosis of liver with ascites: PLAN: She is a child Montes C with a meld of 16-20.? She is not showing any signs of overt encephalopathy but I recommend to increase her lactulose to 20 cc every 6 hours.? Recommend to recheck an ammonia level.? Recommend to continue Xifaxan 550 mg twice a day.? (3) Abdominal pain: PLAN: She is not having much ascites at this time and has not had a large-volume paracentesis for the last 2 weeks. Charges/Coding Visit Charges Inpatient E&M: 72104 Subs Hosp L2
[2022-03-11] MEDS: Gabapentin 300 MG Capsule PO (21:36)
[2022-03-11] MEDS: DOXEPIN HCL 50 MG CAPSULE 150 MG PO (22:24)
[2022-03-11 22:41] LABS: Bedside Glucose 285 mg/dL (74-106)
[2022-03-12] VITALS (9 sets, daily range): BP systolic 99–127; BP diastolic 56–72; PULSE 83–105; RESP 16–20; TEMP 36.3–37.1; O2SAT 95–99
[2022-03-12] MEDS: Ondansetron 4 MG/2 ML Vial IV (03:36)
[2022-03-12] MEDS: LORazepam 2 MG/ML Syringe 0.5 MG IV (04:06)
[2022-03-12 06:22] LABS: Absolute Lymphocyte Count 1.49 X10^3/uL (0.83-4.51); Absolute Neutrophil Count 7.2 X10^3/uL (2.0-7.7); Basophil# 0.01 X10^3/uL; Basophil% 0.1 % (0-1); Eosinophil# 0.06 X10^3/uL; Eosinophils% 0.6 % (0-5); Hematocrit 28.3 % (37-47); Hemoglobin 9.2 g/dL (12.0-15.0); Lymphocyte # 1.49 X10^3/ul (0.83-4.51); Lymphocyte % 15.5 % (19-41); Mean Corp Hgb Conc 32.5 g/dL (32-36); Mean Corpuscular Hgb 34.6 pg (27.0-32.0); Mean Corpuscular Volume 106.4 fL (81-99); Mean Platelet Vol. 9.7 fl (6.2-12.0); Monocyte# 0.77 X10^3/uL; NRBC Flagged by Analyzer 0 % (0-5); Neutrophil # 7.22 X10^3/uL (2.7-7.7); Neutrophil % 75.4 % (47-70); Platelet Count 216 K/mm3 (150-450); RBC Distribution Width CV 12.9 % (11.6-14.6); RBC Distribution Width SD 50.8 fl (35.1-43.9); Red Blood Count 2.66 M/mm3 (4.2-5.4); White Blood Count 9.6 K/mm3 (4.4-11.0)
[2022-03-12] MEDS: Insulin Lispro 100 UNIT/ML INSULN.PEN SC ×2 (06:40→11:04)
[2022-03-12] MEDS: 0.9% Normal Saline 1,000 ML 150 ML IV ×2 (06:41)
[2022-03-12 07:09] LABS: ALB/GLOB Ratio 0.8 RATIO (0.9-2.4); AST(SGOT) 16 U/L (15-37); Alanine Aminotransfer ALT/SGPT 11 U/L (13-56); Albumin, Serum 2.1 g/dL (3.2-5.0); Alkaline Phosphatase 96 U/L (45-117); Anion Gap 6 (5-15); BUN 17 mg/dL (7-18); BUN/Creat Ratio 21.5 RATIO (10-20); Calcium,Total 7.5 mg/dL (8.5-10.1); Chloride 110 mmol/L (98-107); Creatinine, Serum 0.79 mg/dL (0.55-1.02); EST Glomerular Filtration Rate 83 mL/min (>60); Est Glom Filt Rate - Afr Amer 100 mL/min (>60); Globulin 2.8 g/dL (2.2-4.2); Glucose 255 mg/dL (74-106); Potassium 3.5 mmol/L (3.5-5.1); Protein, Total 4.9 g/dL (6.4-8.2); Sodium Level 139 mmol/L (136-145)
[2022-03-12 07:15] LABS: Bedside Glucose 246 mg/dL (74-106)
[2022-03-12 08:37] LABS: Hemoglobin A1c 6.6 % (3.8-5.6)
[2022-03-12] MEDS: Lactulose 20 GM/30 ML UDC PO (09:00)
[2022-03-12] MEDS: rifAXIMin 550 MG Tablet PO (09:00)
[2022-03-12] MEDS: predniSONE 20 MG Tablet PO (09:00)
[2022-03-12] MEDS: proCHLORPERazine 10 MG/2 ML Vial IV (09:00)
[2022-03-12] MEDS: Midodrine HCl 5 MG Tablet 10 MG PO ×2 (09:00→12:04)
[2022-03-12] MEDS: Ursodiol 250 MG Tablet PO (09:00)
[2022-03-12] MEDS: Glucerna Shake 120 ML LIQUID PO (11:04)
[2022-03-12 11:25] LABS: Bedside Glucose 171 mg/dL (74-106)
--- NOTE | 2022-03-12 11:48 | CASEMGMT ---
Per admission questions patient does not have a Healthcare Power of Dubbing Machine Operator or Healthcare Living Will and she is not interested in information. Christy Brambila CENTRAL PROCESSING TECH JOSH
--- NOTE | 2022-03-12 12:14 | US_ITS ---
PROCEDURE: Ultrasound guided paracentesis. DATE OF EXAMINATION: 03/12/2022. INDICATION: Female, 46 years old. Ascites. PHYSICIAN: Denzel Quijano M.D. TECHNIQUE: The risks, benefits, and alternatives to the procedure were explained to the patient. The specific risks of bleeding, infection, and damage to bowel were detailed and accepted. Witnessed informed consent was obtained. The abdomen was ultrasonographically surveyed. An appropriate pocket of fluid was identified at the right lower quadrant. The skin were cleaned and prepped in the usual sterile fashion. Using ultrasound guidance, the peritoneal cavity was accessed with a 5-Montserratian paracentesis needle/catheter system. The trocar was removed. A total of 2400 ml of annalisa-colored fluid were removed from the peritoneal cavity. The catheter was removed and a sterile dressing was applied. The procedure was well tolerated. US/Paracentesis with US IMPRESSION: Ultrasound guided paracentesis. Electronically Signed: Denzel Quijano MD at 14:15 EDT ,
--- NOTE | 2022-03-12 12:36 | DCINST_ITS ---
Discharge Instructions Diet Discharge Diet: 8 Cup Fluid Restriction and 2000 mg Sodium Diet Activity Discharge Activity: Return to Normal Activity Follow Up Care Test Results: Test results from this visit will be discussed in further detail at your follow- up appointment, if applicable. Discharge Plan Admission Admit Date/Time: 03/10/22 12:40 Primary Reason for Your Visit: Acute kidney injury Attending Provider: Lea Ingram Primary Care Provider: Valerie Mullins Instructions Additional Instructions / Restrictions: Take note of changes to your medications Continue to take your lactulose and rifaximin Follow-up with your primary care doctor for repeat blood work within 1 week Follow-up with salesperson terrazzo tiles as previously scheduled. Discharge Orders/Prescriptions Prescriptions: New furosemide [Lasix] 20 mg tablet 20 mg PO DAILY 30 Days Qty: 30 0RF spironolactone 25 mg tablet 25 mg PO DAILY 30 Days Qty: 30 0RF Continued gabapentin 300 mg capsule 600 mg PO DAILY Label Comments: take 1 capsule by mouth three times a day as directed ursodiol 300 mg capsule 300 mg PO BID Label Comments: take 1 capsule by mouth twice a day duloxetine 60 mg capsule,delayed release(DR/EC) 60 mg PO DAILY Label Comments: take 1 capsule by mouth once daily ondansetron 4 mg tablet,disintegrating 4 mg PO Q8H PRN (Reason: nausea and vomiting) Qty: 14 0RF prednisone 20 mg tablet 20 mg PO BREAKFAST famotidine 20 mg Tablet 20 mg PO BID Qty: 60 1RF Xifaxan 550 mg Tablet 550 mg PO BID Qty: 60 1RF midodrine 5 mg tablet 10 mg PO TID Label Comments: TAKE TWO TABLETS (10 MG)CBY MOUTH 3 TIMES A DAY WITH MEALS gabapentin 300 mg capsule 300 mg PO QHS Label Comments: take 1 capsule by mouth three times a day as directed lactulose 10 gram/15 mL solution 30 ml PO BID Label Comments: TAKE 30 ML BY MOUTH 2CTIMES A DAY cholecalciferol (vitamin D3) [Vitamin D3] 25 mcg (1,000 unit) Tablet 25 mcg PO QHS alprazolam 0.25 mg tablet 0.25 mg PO BID PRN (Reason: Anxiety) Label Comments: take 1-2 tablets by mouth twice a day if needed for anxiety for up to 90 DAYS Discontinued metformin 500 mg tablet 500 mg PO BID doxepin 75 mg capsule 150 mg PO QHS Label Comments: take 2 capsules by mouth at bedtime spironolactone [Aldactone] 25 mg tablet 25 mg PO BID ciprofloxacin HCl [Cipro] 500 mg tablet 500 mg PO Q12H Qty: 14 0RF metronidazole 500 mg tablet 500 mg PO Q8H Qty: 21 0RF losartan 25 mg tablet 25 mg PO DAILY Label Comments: take 1 tablet by mouth once daily furosemide 40 mg tablet 40 mg PO DAILY Referrals / Follow Up: Valerie Mullins MD [Primary Care Provider] - 03/29/22 2:00 pm (2:00pm appt time) FriendDougie DO [Med Staff - Active Staff] - 04/05/22 2:00 pm (2:00pm appt time) Disposition Disposition (needs filled in before D/C Order can be placed): Home, Self Care
[2022-03-12] MEDS: Lidocaine 2% (20 ml mdv) 20 ML Vial INFILT (13:35)
[2022-03-12 14:03] LABS: International Normalized Ratio 1.4; Prothrombin Time (Protime)PT. 17.2 SECONDS (11.7-14.9)
[2022-03-12] MEDS: Furosemide 20 MG/2 ML VIAL IV (14:48)
[2022-03-12] MEDS: 0.9% Saline Lock 10 ML Syringe IV (14:48)
--- NOTE | 2022-03-12 15:09 | PCM.DC.SUM ---
Providers Date of Admission: 03/10/22 Date of Discharge: 03/12/22 Primary Care Physician: Dr. Valerie Mullins MD Consultations 03/12/22 12:32 Consult: Gastroenterology Routine Consulting Provider: [facility] Reason for Consult: liver cirrhosis EMERGENT Consult: No MD Notified: Yes Date Notified: 03/12/22 Time Notified: 12:32 Method of Notification: Verbal Reason For Visit: DAMIR Diagnosis Discharge Diagnosis (1) DAMIR (acute kidney injury): Status: Acute Code(s): N17.9 - Acute kidney failure, unspecified (2) Alcoholic cirrhosis of liver with ascites: Status: Acute Code(s): K70.31 - Alcoholic cirrhosis of liver with ascites (3) Abdominal pain: Status: Acute Code(s): R10.9 - Unspecified abdominal pain Plan 1. DAMIR, pre-renal secondary to dehydration/hypovolemia 2. Hypertension/hypovolemia 3. Hypokalemia 4. Hyponatremia, acute, secondary dehydration 5. Lactic acidosis, likely secondary to dehydration 6. Chronic liver disease/alcoholic liver cirrhosis, not decompensated 7. Type II DM 8. Severe protein calorie malnutrition Medications at Discharge Home Medications gabapentin 300 mg capsule 600 mg PO DAILY pain 08/11/21 duloxetine 60 mg capsule,delayed release 60 mg PO DAILY depression 12/10/21 ursodiol 300 mg capsule 300 mg PO BID Check with primary doctor 12/10/21 ondansetron 4 mg disintegrating tablet 4 mg PO Q8H PRN nausea and vomiting #14 tabs 02/09/22 prednisone 20 mg tablet 20 mg PO BREAKFAST steroid 02/17/22 famotidine 20 mg tablet 20 mg PO BID #60 tabs 02/20/22 rifaximin 550 mg tablet (Xifaxan) 550 mg PO BID #60 tabs 02/20/22 cholecalciferol (vitamin D3) 25 mcg (1,000 unit) tablet (Vitamin D3) 25 mcg PO QHS 03/10/22 gabapentin 300 mg capsule 300 mg PO QHS 03/10/22 lactulose 10 gram/15 mL oral solution 30 ml PO BID 03/10/22 midodrine 5 mg tablet 10 mg PO TID 03/10/22 alprazolam 0.25 mg tablet 0.25 mg PO BID PRN Anxiety 03/12/22 furosemide 20 mg tablet (Lasix) 20 mg PO DAILY 30 days #30 tabs 03/12/22 spironolactone 25 mg tablet 25 mg PO DAILY 30 days #30 tabs 03/12/22 Hospital Course Operations None Procedures None Summary of Care Provided Minutes Spent on Discharge: 35 Hospital Course: 46y/o female with PMHx of alcoholic liver cirrhosis with ascites, hypertension, Type 2 DM who comes in with complains of dizziness and blurred vision ongoing for 2 days. Patient was found in the emergency room to be relatively hypotensive, tachycardic. She had evidence of acute kidney injury with creatinine of 3.43, previous creatinine was 0.91. Patient was admitted to the progressive care unit and continued on IV fluids. She had improvement in her renal function. Lasix and spironolactone and blood pressure medications were held. She had hypokalemia that was replaced, hyponatremia that resolved with IV fluids. Her kidney function was back to normal at time of discharge Patient had evidence of worsening ascites on the day of discharge. She had abdominal paracentesis done when 2400 mils of fluid were removed. Patient was discharged home on Lasix 20 mg daily as well as spironolactone 25 mg p.o. daily. She was also continue on the lactulose and rifaximin. She will need to follow-up with her primary care doctor within 1 week for repeat blood work to follow-up on kidney function. She would also follow-up with GI as previously scheduled Physical Exam Narrative Physical exam: General: Alert, Oriented x3, Cooperative, No apparent distress HEENT: Atraumatic Oral: Moist mucosa Neck: Supple Lungs: Clear to auscultation Cardiovascular: HS I+II, regular, no murmurs Abdomen: Abdomen was distended, ascites+, bowel Sounds Present, Soft, Non Tender Extremities: No edema Skin: Dry skin, no rashes, no breakdown Neurological: Grossly intact Psych/Mental Status: Appropriate Medical Records Data Medical Nutrition Assessment Dietitian: Malnutrition Criteria Met Start: 03/10/22 16:18 Freq: Status: Active Protocol: Document 03/10/22 16:18 RMA (Rec: 03/10/22 16:18 RMA [id number]) Nutrition Malnutrition Evidence of Malnutrition Exists Yes Malnutrition (severe): Chronic Evidenced By Suboptimal Energy Intake ( Severe),Weight Loss (Severe), Physical Changes (Severe) Clinical Problem Chronic Disease or Condition Related Malnutrition Etiology Severe protein-calorie malnutrition in the context of chronic disease related to ETOH abuse and inadequate oral intake Signs/Symptoms as evidenced by 15% wt loss x 6 months, BMI 16.8, muscle/fat wasting in the face, clavicle , arms and legs and PO meeting less than 50% estimated nutrition needs x past 6 months Status Active Problem Recommendation Dietitian Recommendations/Changes Given malnutrition criteria, will liberalize diet to regular/no added salt. Will add 120 ml glucerna shake TID w/ meals and TID w/ medpass. Monitor need to restrict carbohydrates once intake established w/ meals. Jevity as needed for skin integrity. Possible consideration for TF if PO and weight continue to decline. Weight / BMI Weight Weight: 47.128 kg Body Mass Index (BMI) 16.7 ABG / Lab / Microbiology Data Result Diagrams: 03/12/22 05:40 03/12/22 05:40 Laboratory: Laboratory Results - last 24 hr 03/11/22 16:20: POC Glucose 387 H 03/11/22 21:34: POC Glucose 285 H 03/12/22 05:40: WBC 9.6, RBC 2.66 L, Hgb 9.2 L, Hct 28.3 L, MCV 106.4 H, MCH 34.6 H, MCHC 32.5, RDW Std Deviation 50.8 H, RDW Coeff of Teressa 12.9, Plt Count 216, MPV 9.7, Immature Gran % (Auto) 0.400, Neut % (Auto) 75.4 H, Lymph % (Auto) 15.5 L, [place] % (Auto) 8.0, Eos % (Auto) 0.6, Baso % (Auto) 0.1, Absolute Neuts (auto) 7.2, Absolute Lymphs (auto) 1.49, Nucleated RBC % 0 03/12/22 05:40: Sodium 139, Potassium 3.5, Chloride 110 H, Carbon Dioxide 23.0, Anion Gap 6, BUN 17, Creatinine 0.79, Estim Creat Clear Calc 65.50, Est GFR (MDRD) Af Amer 100, Est GFR (MDRD) Non-Af 83, BUN/Creatinine Ratio 21.5 H, Glucose 255 H, Calcium 7.5 L, Total Bilirubin 1.30 H, AST 16, ALT 11 L, Alkaline Phosphatase 96, Total Protein 4.9 L, Albumin 2.1 L, Globulin 2.8, Albumin/Globulin Ratio 0.8 L 03/12/22 05:40: Hemoglobin A1c 6.6 H 03/12/22 06:39: POC Glucose 246 H 03/12/22 11:03: POC Glucose 171 H 03/12/22 12:25: Ammonia 47.0 H 03/12/22 12:25: PT 17.2 H, INR 1.4 Microbiology: Microbiology 03/10/22 12:55 Urine, Clean Catch Urine Culture - Final Presumptive C albicans 03/10/22 09:45 Blood Culture (Wb) - Anticubital Left Blood Culture - Preliminary No growth in 48 hours. 03/10/22 09:48 Blood Culture (Wb) - Anticubital Right Blood Culture - Preliminary No growth in 48 hours. 03/10/22 12:35 Stool Stool Occult Blood (LINDA) - Final Radiography Diagnostic Testing: Radiology Impression Paracentesis Ultrasound 03/12/22 12:14 IMPRESSION: Ultrasound guided paracentesis. Electronically Signed: Denzel Quijano MD at 14:15 EDT Reading Location ID and State: [facility] / [place] , Service support , D/C Instructions Discharge Diet: 8 Cup Fluid Restriction and 2000 mg Sodium Diet Meaningful Use Info Meaningful Use Diagnoses (Choose all that apply): None applicable Discharge Plan Admission Admit Date/Time: 03/10/22 12:40 Primary Reason for Your Visit: Acute kidney injury Attending Provider: Lea Ingram Primary Care Provider: Valerie Mullins Instructions Additional Instructions / Restrictions: Take note of changes to your medications Continue to take your lactulose and rifaximin Follow-up with your primary care doctor for repeat blood work within 1 week Follow-up with rehabilitation construction specialist as previously scheduled. Discharge Orders/Prescriptions Prescriptions: New furosemide [Lasix] 20 mg tablet 20 mg PO DAILY 30 Days Qty: 30 0RF spironolactone 25 mg tablet 25 mg PO DAILY 30 Days Qty: 30 0RF Continued gabapentin 300 mg capsule 600 mg PO DAILY Label Comments: take 1 capsule by mouth three times a day as directed ursodiol 300 mg capsule 300 mg PO BID Label Comments: take 1 capsule by mouth twice a day duloxetine 60 mg capsule,delayed release(DR/EC) 60 mg PO DAILY Label Comments: take 1 capsule by mouth once daily ondansetron 4 mg tablet,disintegrating 4 mg PO Q8H PRN (Reason: nausea and vomiting) Qty: 14 0RF prednisone 20 mg tablet 20 mg PO BREAKFAST famotidine 20 mg Tablet 20 mg PO BID Qty: 60 1RF Xifaxan 550 mg Tablet 550 mg PO BID Qty: 60 1RF midodrine 5 mg tablet 10 mg PO TID Label Comments: TAKE TWO TABLETS (10 MG)CBY MOUTH 3 TIMES A DAY WITH MEALS gabapentin 300 mg capsule 300 mg PO QHS Label Comments: take 1 capsule by mouth three times a day as directed lactulose 10 gram/15 mL solution 30 ml PO BID Label Comments: TAKE 30 ML BY MOUTH 2CTIMES A DAY cholecalciferol (vitamin D3) [Vitamin D3] 25 mcg (1,000 unit) Tablet 25 mcg PO QHS alprazolam 0.25 mg tablet 0.25 mg PO BID PRN (Reason: Anxiety) Label Comments: take 1-2 tablets by mouth twice a day if needed for anxiety for up to 90 DAYS Discontinued metformin 500 mg tablet 500 mg PO BID doxepin 75 mg capsule 150 mg PO QHS Label Comments: take 2 capsules by mouth at bedtime spironolactone [Aldactone] 25 mg tablet 25 mg PO BID ciprofloxacin HCl [Cipro] 500 mg tablet 500 mg PO Q12H Qty: 14 0RF metronidazole 500 mg tablet 500 mg PO Q8H Qty: 21 0RF losartan 25 mg tablet 25 mg PO DAILY Label Comments: take 1 tablet by mouth once daily furosemide 40 mg tablet 40 mg PO DAILY Referrals / Follow Up: Valerie Mullins MD [Primary Care Provider] - 03/29/22 2:00 pm (2:00pm appt time) Dougie Munson DO [Med Staff - Active Staff] - 04/05/22 2:00 pm (2:00pm appt time) Disposition Disposition (needs filled in before D/C Order can be placed): Home, Self Care Charges/Coding Visit Charges Inpatient E&M: 73374 Disch Hosp
== END 2022-03-12 16:40 | disposition home or self-care (01) | DRG 469 ==
LOC: ED 09:59 → PCU 13:43
PROVIDERS: Admitting Provider Internal Medicine; Emergency Provider Student in an Organized Health Care Education/Training Program; PCP Internal Medicine; Visit Provider Internal Medicine
DX: N17.9 Acute kidney failure, unspecified (principal); E43 Unspecified severe protein-calorie malnutrition; K70.31 Alcoholic cirrhosis of liver with ascites; E11.40 Type 2 diabetes mellitus with diabetic neuropathy, unspecified; D64.9 Anemia, unspecified; E78.5 Hyperlipidemia, unspecified; E86.1 Hypovolemia; F10.20 Alcohol dependence, uncomplicated; I10 Essential (primary) hypertension; E87.6 Hypokalemia; F17.290 Nicotine dependence, other tobacco product, uncomplicated; R29.6 Repeated falls; Y90.0 Blood alcohol level of less than 20 mg/100 ml; Z68.1 Body mass index [BMI] 19.9 or less, adult; Z79.84 Long term (current) use of oral hypoglycemic drugs; Z79.899 Other long term (current) drug therapy; Z86.16 Personal history of COVID-19
CPT/HCPCS: 36415; 49083; 70450; 71045; 72125; 80048; 80053; 80076; 81001; 82077; 82140; 82274; 82570; 82962; 83036; 83605; 83690; 83735; 84100; 84300; 84484; 85025; 85610; 85730; 86850; 86900; 86901; 87040; 87086; 87088; 93005; 97802; 99251; 99285; 99406; J7030; A4216; G0463; J1940; J2405

== ENCOUNTER 2022-03-16 14:05 | Emergency (ER) | payer MEDICAID, SELFPAY ==
[2022-03-16 14:06] VITALS: BP 94/68; PULSE 112; RESP 16; TEMP 36.6; O2SAT 99; BMI 16.5
--- NOTE | 2022-03-16 14:44 | EX.ED.DYSGE1 ---
HPI History of Present Illness Chief Complaint: Abd Pain Informant: patient Narrative Narrative: Patient presents requesting need for paracentesis. She states she is taking all her medicines. She is watching her diet. But she is filling up with fluid again. This is starting to cause nausea. She got lightheaded and fell yesterday but not today. She states when the fluid builds up she will get drops in blood pressure. She feels like it is hard to take a deep breath but she is not actually short of breath significantly at this time. She is not having notable abdominal pain. She is not having fevers or chills. She did call Dr. Munson earlier in the week and talked that her abdomen was feeling up. They were able to get an appointment on to have the fluid drawn out but she does not think she can make it that far. She did have fluid taken out while she was in the hospital recently. They took off 5-1/2 L. It did help her symptoms. Patient is also getting on the transplant list. [facility] Medical History Alcoholic cirrhosis of liver with ascites Alcoholism Anxiety Asthma Breast implant status Chronic diarrhea Closed head injury COVID-19 Diabetes Fatty liver Gastritis and duodenitis H. pylori infection History of alcohol abuse HLD (hyperlipidemia) HTN (hypertension) Hypertension Migraines Nicotine abuse Pancreatitis Post-menopausal Recurrent acute pancreatitis SBP (spontaneous bacterial peritonitis) Smoker Transaminitis Home Medications gabapentin 300 mg capsule 600 mg PO DAILY pain 08/11/21 [History Last Taken 03/10/22] duloxetine 60 mg capsule,delayed release 60 mg PO DAILY depression 12/10/21 [History Last Taken 03/10/22] ursodiol 300 mg capsule 300 mg PO BID Check with primary doctor 12/10/21 [History Last Taken 03/10/22] ondansetron 4 mg disintegrating tablet 4 mg PO Q8H PRN nausea and vomiting #14 tabs 02/09/22 [Rx Last Taken 3 Days Ago ~03/07/22] prednisone 20 mg tablet 20 mg PO BREAKFAST steroid 02/17/22 [History Last Taken 03/10/22] famotidine 20 mg tablet 20 mg PO BID #60 tabs 02/20/22 [Rx Last Taken 03/09/22] rifaximin 550 mg tablet (Xifaxan) 550 mg PO BID #60 tabs 02/20/22 [Rx Last Taken 03/10/22] cholecalciferol (vitamin D3) 25 mcg (1,000 unit) tablet (Vitamin D3) 25 mcg PO QHS 03/10/22 [History Last Taken 03/09/22] gabapentin 300 mg capsule 300 mg PO QHS 03/10/22 [History Last Taken 03/09/22] lactulose 10 gram/15 mL oral solution 30 ml PO BID 03/10/22 [History Last Taken 03/09/22] midodrine 5 mg tablet 10 mg PO TID 03/10/22 [History Last Taken 03/10/22] alprazolam 0.25 mg tablet 0.25 mg PO BID PRN Anxiety 03/12/22 [History Last Taken Unknown] furosemide 20 mg tablet (Lasix) 20 mg PO DAILY 30 days #30 tabs 03/12/22 [Rx Last Taken Unknown] spironolactone 25 mg tablet 25 mg PO DAILY 30 days #30 tabs 03/12/22 [Rx Last Taken Unknown] Allergy/AdvReac Type Severity Reaction Status Date / Time azithromycin [From Zithromax] AdvReac Diarrhea Verified 03/16/22 14:09 codeine AdvReac Nausea Verified 03/16/22 14:09 promethazine [From Phenergan] AdvReac Vomiting Verified 03/16/22 14:09 Family History Father Cancer Lung CA with tobacco use history. Heart disease Mother Cancer Hx breast CA. Diabetes Hypertension Other Alcoholic cirrhosis of liver with ascites Surgical History H/O breast augmentation H/O: knee surgery Previous section S/P tonsillectomy and adenoidectomy Social History housing: other details: Lives at home, her 15, 16 year old children live with her. 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 substance use type: does not use ROS ROS ED Constitutional Constitutional ED: Denies chills, fever(s), subjective or sweats Eyes Eyes: Denies change in vision ENT ENT ED: Denies rhinorrhea or sore throat Cardiovascular Cardiovascular: Denies chest pain, palpitations or racing heartbeat Respiratory/Chest Respiratory/Chest: Reports dyspnea; Denies cough or sputum Gastrointestinal Gastrointestinal: Reports nausea; Denies vomiting Genitourinary Genitourinary ED: Denies dysuria Musculoskeletal Musculoskeletal: Denies myalgias Integumentary Denies rash Neurologic Neurologic: Denies headache(s), paresthesias or weakness Endocrine Endocrinology: Denies polydipsia or polyuria Hematologic/Lymphatic Hematologic/Lymphatic: Reports anemia Allergic/Immunologic Allergic/Immunologic ED: Denies urticaria EXAM Physical Exam Const Vital Signs: 03/16/22 14:06 03/16/22 16:26 Temperature 97.8 F Temperature Source Temporal Pulse Rate 112 H 88 Respiratory Rate 16 18 Blood Pressure 94/68 102/69 Blood Pressure Mean 76 Pulse Ox 99 98 Oxygen Delivery Method Room Air Positive well nourished and well developed Constitutional Narrative: Patient actually looks comfortable in bed. She is nontoxic. She is not does not look significantly or acutely ill or septic. She does have significant ascites however. General Appearance ED: well developed and NAD HEENT Reports moist mucous membranes Neck no JVD Resp normal respiratory effort and clear to auscultation bilaterally Resp Narrative: Lungs sound clear. However it is hard for her to take a really deep breath because of the distention of her abdomen. Cardio regular rate and regular rhythm Rate: other Other Details: Rate is about 95 right now on the monitor. It was a little more tachycardic when she came in. GI GI Narrative: Abdomen is obviously distended with fluid wave. But is not tender. Clinically there is no indication of SBP. Back/Spine no CVA tenderness Extremity normal to inspection Extremity Narrative: She does have mild edema at the ankles which she states is normal. Neuro oriented x3 Neuro Narrative: Patient is awake alert appropriate. No sign of confusion lethargy or clinical indication of hyperammonemia. Psych mental status grossly normal Skin no rashes or lesions noted MDM MDM MDM Narrative Medical decision making narrative: Patient's blood work actually looks pretty good for her. There is a minimal rise of the bilirubin but down from prior. Hemoglobin is good. INR is actually better. I was not able to arrange paracentesis today. But they were able to move her appointment from till tomorrow morning. I discussed the case with her water control station engineer, Dr. Friend. We are all comfortable with her following up tomorrow for paracentesis. Lab Data Attestation: I reviewed the patient's lab results. Labs: Laboratory Results - last 24 hr 03/16/22 03/16/22 03/16/22 14:45 14:45 14:45 WBC 9.8 RBC 3.33 L Hgb 11.2 L Hct 35.0 L MCV 105.1 H MCH 33.6 H MCHC 32.0 RDW Std Deviation 50.3 H RDW Coeff of Teressa 13.0 Plt Count 274 MPV 10.1 Immature Gran % (Auto) 0.300 Neut % (Auto) 70.1 H Lymph % (Auto) 18.8 L Evangeline % (Auto) 7.4 Eos % (Auto) 3.2 Baso % (Auto) 0.2 Absolute Neuts (auto) 6.9 Absolute Lymphs (auto) 1.84 Nucleated RBC % 0 PT 15.3 H INR 1.2 Sodium 139 Potassium 3.2 L Chloride 105 Carbon Dioxide 27.0 Anion Gap 7 BUN 5 L Creatinine 0.68 Estim Creat Clear Calc 74.70 Est GFR (MDRD) Af Amer 119 Est GFR (MDRD) Non-Af 98 BUN/Creatinine Ratio 7.4 L Glucose 167 H Calcium 9.1 Total Bilirubin 1.60 H AST 22 ALT 17 Alkaline Phosphatase 154 H Total Protein 6.0 L Albumin 2.5 L Globulin 3.5 Albumin/Globulin Ratio 0.7 L Discharge Plan Triage Chief Complaint: Abd Pain ED Provider: Farhat Plascencia Dx/Rx/DC Orders Clinical Impression: Ascites Instructions: ED Ascites Prescriptions: No Action gabapentin 300 mg capsule 600 mg PO DAILY Label Comments: take 1 capsule by mouth three times a day as directed ursodiol 300 mg capsule 300 mg PO BID Label Comments: take 1 capsule by mouth twice a day duloxetine 60 mg capsule,delayed release(DR/EC) 60 mg PO DAILY Label Comments: take 1 capsule by mouth once daily ondansetron 4 mg tablet,disintegrating 4 mg PO Q8H PRN (Reason: nausea and vomiting) Qty: 14 0RF prednisone 20 mg tablet 20 mg PO BREAKFAST famotidine 20 mg Tablet 20 mg PO BID Qty: 60 1RF Xifaxan 550 mg Tablet 550 mg PO BID Qty: 60 1RF midodrine 5 mg tablet 10 mg PO TID Label Comments: TAKE TWO TABLETS (10 MG)CBY MOUTH 3 TIMES A DAY WITH MEALS gabapentin 300 mg capsule 300 mg PO QHS Label Comments: take 1 capsule by mouth three times a day as directed lactulose 10 gram/15 mL solution 30 ml PO BID Label Comments: TAKE 30 ML BY MOUTH 2CTIMES A DAY cholecalciferol (vitamin D3) [Vitamin D3] 25 mcg (1,000 unit) Tablet 25 mcg PO QHS alprazolam 0.25 mg tablet 0.25 mg PO BID PRN (Reason: Anxiety) Label Comments: take 1-2 tablets by mouth twice a day if needed for anxiety for up to 90 DAYS furosemide [Lasix] 20 mg tablet 20 mg PO DAILY 30 Days Qty: 30 0RF spironolactone 25 mg tablet 25 mg PO DAILY 30 Days Qty: 30 0RF Primary Care Provider: Valerie Mullins Referrals: Valerie Mullins MD [Primary Care Provider] - Friend,DO Dougie [Med Staff - Active Staff] - Keep Teresa appointment Activity Restrictions/Additional Instructions: We have removed your appointment up for a paracentesis to 10:30 in the morning tomorrow Tuesday, 17 March 2022. Disposition Disposition: Home, Self Care Discharge Date/Time: 03/16/22 16:30
[2022-03-16 14:54] LABS: Absolute Lymphocyte Count 1.84 X10^3/uL (0.83-4.51); Absolute Neutrophil Count 6.9 X10^3/uL (2.0-7.7); Basophil# 0.02 X10^3/uL; Basophil% 0.2 % (0-1); Eosinophil# 0.31 X10^3/uL; Eosinophils% 3.2 % (0-5); Hemoglobin 11.2 g/dL (12.0-15.0); Lymphocyte # 1.84 X10^3/ul (0.83-4.51); Lymphocyte % 18.8 % (19-41); Mean Corpuscular Hgb 33.6 pg (27.0-32.0); Mean Corpuscular Volume 105.1 fL (81-99); Mean Platelet Vol. 10.1 fl (6.2-12.0); Monocyte# 0.72 X10^3/uL; Monocyte% 7.4 % (0-10); NRBC Flagged by Analyzer 0 % (0-5); Neutrophil # 6.87 X10^3/uL (2.7-7.7); Neutrophil % 70.1 % (47-70); Platelet Count 274 K/mm3 (150-450); RBC Distribution Width SD 50.3 fl (35.1-43.9); Red Blood Count 3.33 M/mm3 (4.2-5.4); White Blood Count 9.8 K/mm3 (4.4-11.0)
[2022-03-16 15:10] LABS: International Normalized Ratio 1.2; Prothrombin Time (Protime)PT. 15.3 SECONDS (11.7-14.9)
[2022-03-16 15:11] LABS: ALB/GLOB Ratio 0.7 RATIO (0.9-2.4); AST(SGOT) 22 U/L (15-37); Alanine Aminotransfer ALT/SGPT 17 U/L (13-56); Albumin, Serum 2.5 g/dL (3.2-5.0); Alkaline Phosphatase 154 U/L (45-117); Anion Gap 7 (5-15); BUN 5 mg/dL (7-18); BUN/Creat Ratio 7.4 RATIO (10-20); Calcium,Total 9.1 mg/dL (8.5-10.1); Chloride 105 mmol/L (98-107); Creatinine, Serum 0.68 mg/dL (0.55-1.02); EST Glomerular Filtration Rate 98 mL/min (>60); Est Glom Filt Rate - Afr Amer 119 mL/min (>60); Globulin 3.5 g/dL (2.2-4.2); Glucose 167 mg/dL (74-106); Potassium 3.2 mmol/L (3.5-5.1); Sodium Level 139 mmol/L (136-145)
--- NOTE | 2022-03-16 15:24 | ED.RN ---
multiple IV attempts by 3 people. states ok to change IV zofran to PO.
[2022-03-16] MEDS: Ondansetron ODT 4 MG Tablet PO (15:28)
[2022-03-16 16:26] VITALS: BP 102/69; PULSE 88; RESP 18; O2SAT 98
== END 2022-03-16 16:30 | disposition home or self-care (01) ==
PROVIDERS: Emergency Provider Emergency Medicine; PCP Internal Medicine; Visit Provider Emergency Medicine
DX: R18.8 Other ascites (principal); I10 Essential (primary) hypertension; E78.5 Hyperlipidemia, unspecified; F41.9 Anxiety disorder, unspecified; F17.210 Nicotine dependence, cigarettes, uncomplicated; F17.290 Nicotine dependence, other tobacco product, uncomplicated; Z79.899 Other long term (current) drug therapy; Z86.16 Personal history of COVID-19
CPT/HCPCS: J2405; 80053; 85025; 85610; 99283; A4216

== ENCOUNTER → 2022-03-17 | Outpatient (CLI) | payer MEDICAID, SELFPAY ==
--- NOTE | 2022-03-17 10:36 | US_ITS ---
PROCEDURE: ULTRASOUND GUIDED PARACENTESIS CLINICAL HISTORY: Female, 46 years old. CIRRHOSIS CONSENT: Informed consent obtained Time-Out Called: Yes. Consent form signed: Yes. PT-PTT Levels Checked: Yes. SEDATION: Local TECHNIQUE: Ultrasound guided FINDINGS: FLUID PRE-PROCEDURE There is posterior enhancement. The findings appear anechoic. There is no loculation. FLUID POST-PROCEDURE Amount of fluid drained: 2300 ml. After informed consent was obtained, the patient was placed in the supine position on the sonographic exam bed, and an appropriate site for paracentesis was determined. The area was marked. The area was prepped and draped in a sterile manner, 1% XYLOCAINE was used as local anesthetic. Under sonographic guidance, a drainage catheter was advanced into the peritoneal cavity and approximately 2300 mL of straw-colored serous fluid was withdrawn from the abdomen. There were no immediate complications, and patient tolerated the procedure well US/Paracentesis with US IMPRESSION: Successful sonographically guided paracentesis Electronically Signed: Obinna Rodriguez MD at 12:13 EDT ,
[2022-03-17 10:48] VITALS: BP 101/57; BP 98/60; PULSE 91; PULSE 98; RESP 18; O2SAT 100
[2022-03-17] MEDS: Lidocaine 2% (20 ml mdv) 20 ML Vial INFILT (11:17)
== END | disposition home or self-care (01) ==
PROVIDERS: PCP Internal Medicine; Referring Provider Internal Medicine Gastroenterology; Visit Provider Internal Medicine Gastroenterology
DX: K70.31 Alcoholic cirrhosis of liver with ascites (principal)
CPT/HCPCS: 49083

== ENCOUNTER → 2022-03-23 | Outpatient (CLI) | payer MEDICAID, SELFPAY ==
--- NOTE | 2022-03-23 10:43 | US_ITS ---
PROCEDURE: Ultrasound guided paracentesis. DATE OF EXAMINATION: 03/23/2022. INDICATION: Female, 46 years old. Ascites. PHYSICIAN: Denzel Quijano M.D. TECHNIQUE: The risks, benefits, and alternatives to the procedure were explained to the patient. The specific risks of bleeding, infection, and damage to bowel were detailed and accepted. Witnessed informed consent was obtained. The abdomen was ultrasonographically surveyed. An appropriate pocket of fluid was identified at the left lower quadrant. The skin were cleaned and prepped in the usual sterile fashion. Using ultrasound guidance, the peritoneal cavity was accessed with a 5-Mohawk paracentesis needle/catheter system. The trocar was removed. A total of 1600 ml of annalisa-colored fluid were removed from the peritoneal cavity. The catheter was removed and a sterile dressing was applied. The procedure was well tolerated. US/Paracentesis with US IMPRESSION: Ultrasound guided paracentesis. Electronically Signed: Denzel Quijano MD at 12:12 EDT ,
[2022-03-23 10:51] VITALS: BP 110/64; BP 116/66; BP 123/34; PULSE 84; PULSE 92; PULSE 93; RESP 18; TEMP 36.3; O2SAT 98
[2022-03-23] MEDS: Lidocaine 2% (20 ml mdv) 20 ML Vial INFILT (11:00)
== END | disposition home or self-care (01) ==
PROVIDERS: PCP Internal Medicine; Referring Provider Internal Medicine Gastroenterology; Visit Provider Internal Medicine Gastroenterology
DX: K70.31 Alcoholic cirrhosis of liver with ascites (principal)
CPT/HCPCS: 49083

== ENCOUNTER → 2022-03-30 | Outpatient (CLI) | payer MEDICAID, SELFPAY ==
--- NOTE | 2022-03-30 10:44 | US_ITS ---
PROCEDURE: Ultrasound guided paracentesis. DATE OF EXAMINATION: 03/30/2022. INDICATION: Female, 46 years old. Ascites. PHYSICIAN: Denzel Quijano M.D. TECHNIQUE: The risks, benefits, and alternatives to the procedure were explained to the patient. The specific risks of bleeding, infection, and damage to bowel were detailed and accepted. Witnessed informed consent was obtained. The abdomen was ultrasonographically surveyed. An appropriate pocket of fluid was identified at the right lower quadrant. The skin were cleaned and prepped in the usual sterile fashion. Using ultrasound guidance, the peritoneal cavity was accessed with a 5-[place] Citizen paracentesis needle/catheter system. The trocar was removed. A total of 1390 ml of annalisa-colored fluid were removed from the peritoneal cavity. The catheter was removed and a sterile dressing was applied. The procedure was well tolerated. US/Paracentesis with US IMPRESSION: Ultrasound guided paracentesis. Electronically Signed: Denzel Quijano MD at 12:30 EDT ,
[2022-03-30 11:03] VITALS: BP 104/64; BP 112/53; PULSE 80; PULSE 83; RESP 14; RESP 16; TEMP 36.6; O2SAT 100; O2SAT 98
[2022-03-30] MEDS: Lidocaine 2% (20 ml mdv) 20 ML Vial INFILT (11:03)
== END | disposition home or self-care (01) ==
LOC: US 10:43
PROVIDERS: PCP Internal Medicine; Referring Provider Internal Medicine Gastroenterology; Visit Provider Internal Medicine Gastroenterology
DX: K70.31 Alcoholic cirrhosis of liver with ascites (principal)
CPT/HCPCS: 49083

== ENCOUNTER → 2022-04-06 | Outpatient (CLI) | payer MEDICAID, SELFPAY ==
--- NOTE | 2022-04-06 10:30 | CASEMGMT ---
Addendum entered by Kelly Rm 04/06/22 14:51: Advised Radiology Nursing of pt's concern with the following: increase in forgetfulness, decrease in wgt, and increased weakness. Original Note: Complex Iron Installer Assessment ? CM was in the room during pt's paracentesis procedure on 04/06/22. Once the procedure was completed, pt wanted to speak with CM regarding needs. An entire assessment was not completed due to the pt having a hard time remembering things and being focused on possible needs. Dx:? Alcoholic with Cirrhosis of the liver with ascites, DM, Hepatomegaly, Anemia, Elevated bilirubin, Peripheral neuropathy, Recurrent acute pancreatitis, HTN. Hospitalizations in 2021: -03/10/22 ? 03/12/22 [facility] -02/17/22 ? 02/20/22 Hypokalemia, [facility] -02/03/22 ? 02/09/22 Ascites d/t Alcoholic Liver Disease -12/10/21 ? 12/11/21 TIA/CVA -08/11/21 ? 08/14/21 [facility] -06/21/21 ? 06/24/21 Acute pancreatitis ? New concerns: -?Lump on jaw?. -Decrease in wgt. Pt now weighs 98lbs. -Increased weakness. ? Providers:? -Susanna, PCP. -Friend, GI. ? Insurance:? -[employer]. ? Medication:? -No report, by pt, regarding medication changes. ? Scheduled appointments:? -Pt reports going to [place] today to have a CT scan on a lump on my jaw. ?-04/07/22 Dr. Munson. -04/19/22 PT/OT Evaluation at [facility]. -04/20/22 Paracentesis. Pt reports being aware of the appointments and plans to attend. ? Alcohol use: -Pt denies any current alcohol use since relapsing. ? Understanding of the disease process: -Pt voices understanding of her diagnoses. Pt is willing to accept any further education regarding the disease process. ? SDOH (Finances, Housing, Transportation, Phone/Internet, Food, Support/Family, Employment): -Pt denied any financial issues at this time. Pt owns her own housing and is still paying the mortgage. Pt recently applied for PIPP/HEAP. Pt is able to drive self and is leasing a vehicle. Pt has a phone and internet access. Pt is receiving food assistance. Pt has three children. Pt's mother and sister are supportive. Pt continues to attend three AA meetings per week. Pt continues to work for [employer] and is currently working 25 hours per week. ? Needs: -Someone to assist with yard and drive-way. -Possibly someone to come to the home to help with housework and ADLs if needed. ? Goals: -Pt reports being ?pre-transplant?. Pt voiced still wanting to be placed on the transport list. Pt said she spoke with [facility]?s office on Tuesday. Per pt, the office is working on transplant paperwork. Pt reports having an appointment with Social Security on 04/12/22 for disability. Pt is considering eventually getting a HH aide if possible due to weakness. [facility] services discussed in the event pt would qualify in the future. Information to be provided at next appointment. Pt would like to eventually receive care through [employer] since she is currently employed there. ?
--- NOTE | 2022-04-06 10:35 | US_ITS ---
PROCEDURE: Ultrasound guided paracentesis. DATE OF EXAMINATION: 04/16/2022. INDICATION: Female, 46 years old. Ascites. PHYSICIAN: Denzel Quijano M.D. TECHNIQUE: The risks, benefits, and alternatives to the procedure were explained to the patient. The specific risks of bleeding, infection, and damage to bowel were detailed and accepted. Witnessed informed consent was obtained. The abdomen was ultrasonographically surveyed. An appropriate pocket of fluid was identified at the right lower quadrant. The skin were cleaned and prepped in the usual sterile fashion. Using ultrasound guidance, the peritoneal cavity was accessed with a 5-Iraqi paracentesis needle/catheter system. The trocar was removed. A total of 1500 ml of annalisa-colored fluid were removed from the peritoneal cavity. The catheter was removed and a sterile dressing was applied. The procedure was well tolerated. US/Paracentesis with US IMPRESSION: Ultrasound guided paracentesis. Electronically Signed: Denzel Quijano MD at 12:19 EST ,
[2022-04-06 10:47] VITALS: BP 108/67; BP 110/69; BP 118/71; PULSE 96; PULSE 97; PULSE 98; RESP 14; TEMP 36.2; O2SAT 95; O2SAT 98
[2022-04-06] MEDS: Lidocaine 2% (20 ml mdv) 20 ML Vial (10:50)
== END | disposition home or self-care (01) ==
PROVIDERS: PCP Internal Medicine; Referring Provider Internal Medicine Gastroenterology; Visit Provider Internal Medicine Gastroenterology
DX: R18.8 Other ascites (principal); K74.60 Unspecified cirrhosis of liver
CPT/HCPCS: 49083

== ENCOUNTER → 2022-04-13 | Outpatient (CLI) | payer MEDICAID, SELFPAY ==
--- NOTE | 2022-04-13 11:50 | US_ITS ---
PROCEDURE: Ultrasound guided paracentesis. DATE OF EXAMINATION: 04/13/2022.. INDICATION: Female, 46 years old. Ascites. PHYSICIAN: Denzel Quijano M.D. TECHNIQUE: The risks, benefits, and alternatives to the procedure were explained to the patient. The specific risks of bleeding, infection, and damage to bowel were detailed and accepted. Witnessed informed consent was obtained. The abdomen was ultrasonographically surveyed. An appropriate pocket of fluid was identified at the mid lower quadrant. The skin were cleaned and prepped in the usual sterile fashion. Using ultrasound guidance, the peritoneal cavity was accessed with a 5-Arabic paracentesis needle/catheter system. The trocar was removed. A total of 2500 ml of annalisa-colored fluid were removed from the peritoneal cavity. The catheter was removed and a sterile dressing was applied. The procedure was well tolerated. US/Paracentesis with US IMPRESSION: Ultrasound guided paracentesis. Electronically Signed: Denzel Quijano MD at 13:47 EST ,
[2022-04-13 12:07] VITALS: BMI 16.5
[2022-04-13] MEDS: Lidocaine 2% (20 ml mdv) 20 ML Vial INFILT (12:12)
--- NOTE | 2022-04-13 12:49 | CASEMGMT ---
Addendum entered by Kelly Rm 04/13/22 15:42: TC to pt. Pt had stated she was feeling weak and tired after her paracentesis d/t her blood pressure dropping. Complex Sheep Clipper advised she just wanted to check-in. Pt said she is feeling better. She had an appointment and now heading home. Pt thanked the Navigator for checking in. Addendum entered by Kelly Rm 04/13/22 14:33: Complex Sheep Clipper was advised of the concern regarding pt's health. There is concern that pt does not realize the severity of the current state of health. Navigator spoke with her building rental manager regarding this. Navigator was encouraged to speak with Dr. Munson's Office and [facility]. Navigator called Dr. Munson's Office and spoke with ROGER Ruiz. Per Sara, during the last visit, it was noted that pt needs a liver transplant. Pt denied any alcohol intake. Per Sara, Dr. Munson realized time is limited. Palliative Care was discussed. Sara advised Dr. Munson would be agreeable to Palliative Care. He doesn't like to jump to Hospice. Navigator then called [facility]. Per the staff member, pt is not in the system. Navigator called pt's PCP's Office. Pt has an appointment on 05/11/2022. Pt was also seen a couple weeks ago. It was noted that pt is looking into a transplant and is established with Dr. Munson. ROGER Fleming, will send a note to Dr. Mullins regarding concerns. Original Note: Complex Sheep Clipper into Radiology to meet with pt. Pt was finished with Paracentesis but was being monitored. Pt advised she has been tired and weak. Navigator provided the following information: [facility] flyer, [employer] information, [employer] [facility] information, a list of local churches, and 211 resource directory information. Pt advised her main concern is finding someone to sit with her at night and while she's sleeping. Pt is concerned with falls. Navigator explained that [facility] may be able to provide an aide. However, the aide is to assist with ADL's and housework, not to sit with a pt during times of sleep. That would likely be an [id number] cost. Navigator encouraged pt to at least contact [facility] to gather more information and note whether or not she would qualify for services. Pt denied needing assistance with lawn care or shoveling at this time but will keep the resource information. Pt reports she connected with Social Security yesterday. There are a few documents they need from pt. Pt wrote the information down and will gather it. Pt reports she still plans to go to [facility] for the PT/OT eval. No further needs expressed at this time.
[2022-04-13 13:20] VITALS: BP 102/54; BP 77/27; BP 92/54; BP 93/51; BP 95/49; BP 97/60; PULSE 93; PULSE 95; PULSE 96; PULSE 97; PULSE 99; RESP 16; TEMP 36.6; O2SAT 100; O2SAT 98; O2SAT 99
== END | disposition home or self-care (01) ==
PROVIDERS: PCP Internal Medicine; Referring Provider Internal Medicine Gastroenterology; Visit Provider Internal Medicine Gastroenterology
DX: R18.8 Other ascites (principal)
CPT/HCPCS: 49083

== ENCOUNTER → 2022-04-20 | Outpatient (CLI) | payer MEDICAID, SELFPAY ==
--- NOTE | 2022-04-20 11:40 | US_ITS ---
PROCEDURE: Ultrasound guided paracentesis. DATE OF EXAMINATION: 04/20/2022. INDICATION: Female, 46 years old. Ascites. PHYSICIAN: Gonzalez Zhou D.O. TECHNIQUE: The risks, benefits, and alternatives to the procedure were explained to the patient. The specific risks of bleeding, infection, and damage to bowel were detailed and accepted. Witnessed informed consent was obtained. The abdomen was ultrasonographically surveyed. An appropriate pocket of fluid was identified at the right lower quadrant. The skin were cleaned and prepped in the usual sterile fashion. Using ultrasound guidance, the peritoneal cavity was accessed with a 5-Setswana paracentesis needle/catheter system. The trocar was removed. A total of 2550 ml of clear straw-colored ascites fluid were removed from the peritoneal cavity. The catheter was removed and a sterile dressing was applied. The procedure was well tolerated. The patient was discharged in stable condition. US/Paracentesis with US IMPRESSION: Ultrasound guided therapeutic paracentesis. Electronically Signed: Gonzalez Zhou, at 13:45 EST ,
[2022-04-20 12:18] VITALS: BP 75/34; BP 79/30; BP 80/33; BP 86/41; PULSE 91; PULSE 93; PULSE 94; RESP 16; RESP 18; TEMP 37.1; O2SAT 100; O2SAT 97; O2SAT 98
[2022-04-20] MEDS: Lidocaine 2% (20 ml mdv) 20 ML Vial INFILT (12:18)
--- NOTE | 2022-04-20 12:58 | CASEMGMT ---
Complex Bulk Receiver requested the radiology nurse make contact once Pt's paracentesis procedure was complete. Navigator planned to meet with Pt to discuss Palliative Care and LW/HPOA. Radiology nurse contacted Navigator and said Pt declined meeting. 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
== END | disposition home or self-care (01) ==
PROVIDERS: PCP Internal Medicine; Visit Provider Internal Medicine Gastroenterology
DX: R18.8 Other ascites (principal); K74.60 Unspecified cirrhosis of liver
CPT/HCPCS: 49083; A4216

== ENCOUNTER → 2022-04-27 | Outpatient (CLI) | payer MEDICAID, SELFPAY ==
--- NOTE | 2022-04-27 12:08 | US_ITS ---
PROCEDURE: Ultrasound guided paracentesis. DATE OF EXAMINATION: 04/27/2022. INDICATION: Female, 46 years old. Ascites. PHYSICIAN: Denzel Quijano M.D. TECHNIQUE: The risks, benefits, and alternatives to the procedure were explained to the patient. The specific risks of bleeding, infection, and damage to bowel were detailed and accepted. Witnessed informed consent was obtained. The abdomen was ultrasonographically surveyed. An appropriate pocket of fluid was identified at the right lower quadrant. The skin were cleaned and prepped in the usual sterile fashion. Using ultrasound guidance, the peritoneal cavity was accessed with a 5-Tajik paracentesis needle/catheter system. The trocar was removed. A total of 2200 ml of annalisa-colored fluid were removed from the peritoneal cavity. The catheter was removed and a sterile dressing was applied. The procedure was well tolerated. US/Paracentesis with US IMPRESSION: Ultrasound guided paracentesis. Electronically Signed: Denzel Quijano MD at 14:11 EST ,
[2022-04-27 12:29] VITALS: BP 102/55; BP 90/36; PULSE 97; PULSE 99; RESP 16; RESP 18; O2SAT 100; O2SAT 99
[2022-04-27] MEDS: Lidocaine 2% (20 ml mdv) 20 ML Vial (12:30)
--- NOTE | 2022-04-27 12:55 | CASEMGMT ---
Addendum entered by Kelly Rm 04/27/22 15:54: Pt also stated PCP put in an Order for a shower chair and rollator. Original Note: Complex Brakes Inspector met with pt during paracentesis procedure. Pt said she has lots of good news. Pt stated the transplant center called her. Pt will return the call to start the process. Pt also said the Social Security Disability should soon be approved. Pt was approved for PIPP/HEAP. Pt plans to contact [employer] for possible qualification. It is getting more difficult for pt to do housework. Pt's work hours have decreased to 8 or 10 per week. Navigator talked with pt regarding Palliative Care. Pt agreed. List of Palliative Care Providers given. Pt denied having a preference and requested Navigator pick one. No further needs at this time.
--- NOTE | 2022-04-27 13:28 | CASEMGMT ---
Addendum entered by Kelly Rm 04/27/22 15:56: Notification from Lilian with [facility] regarding Palliative Care. Lilian reached out to pt's PCP to request the Palliative Care Order. Nurse Castro took a message to send to PCP. Lilian attempted to reach pt via phone but had to leave a voicemail. Lilian will keep Complex Supervisor Plastic Sheets updated on admission date and any changes. Original Note: Referral sent to [facility] for Palliative Care.
--- NOTE | 2022-04-28 09:50 | CASEMGMT ---
TC to Dr. Munson's Office. Complex Double Cut Off Saw Operator spoke with Chery. Navigator advised a referral was sent yesterday for Palliative Care. Chery advised she will relay the information to Dr. Munson.
== END | disposition home or self-care (01) ==
PROVIDERS: PCP Internal Medicine; Referring Provider Internal Medicine Gastroenterology; Visit Provider Internal Medicine Gastroenterology
DX: K70.31 Alcoholic cirrhosis of liver with ascites (principal)
CPT/HCPCS: 49083

== ENCOUNTER 2022-04-29 22:25 | Inpatient (IN) | payer MEDICAID, SELFPAY ==
[2022-04-29 22:26] VITALS: BP 110/69; PULSE 107; RESP 15; TEMP 35.4; O2SAT 98; BMI 14.6
--- NOTE | 2022-04-29 22:51 | EX.ED.DYSGE1 ---
HPI History of Present Illness Chief Complaint: Abn Labs Narrative Narrative: This 46-year-old female here with concern for hyponatremia in the setting of alcoholic liver cirrhosis, hepatic encephalopathy, T2DM. Patient states her sodium level was 116 was told by her doctor to come in to be admitted. Patient denies any seizures, headaches, loss of consciousness does note diarrhea but this is chronic for her not worse than usual. Denies any vomiting or other volume loss. Denies drinking any alcohol. Old chart reviewed: Last sodium level on 03/16/2022 was 139 PFSH PFSH Medical History Alcoholic cirrhosis of liver with ascites Alcoholism Anxiety Asthma Breast implant status Chronic diarrhea Closed head injury COVID-19 Diabetes Fatty liver Gastritis and duodenitis H. pylori infection History of alcohol abuse HLD (hyperlipidemia) HTN (hypertension) Hypertension Migraines Nicotine abuse Pancreatitis Post-menopausal Recurrent acute pancreatitis SBP (spontaneous bacterial peritonitis) Smoker Transaminitis Home Medications duloxetine 60 mg capsule,delayed release 60 mg PO DAILY depression 12/10/21 [History Last Taken 03/10/22] ursodiol 300 mg capsule 300 mg PO BID Check with primary doctor 12/10/21 [History Last Taken 03/10/22] ondansetron 4 mg disintegrating tablet 4 mg PO Q8H PRN nausea and vomiting #14 tabs 02/09/22 [Rx Last Taken 3 Days Ago ~03/07/22] famotidine 20 mg tablet 20 mg PO BID #60 tabs 02/20/22 [Rx Last Taken 03/09/22] rifaximin 550 mg tablet (Xifaxan) 550 mg PO BID #60 tabs 02/20/22 [Rx Last Taken 03/10/22] gabapentin 300 mg capsule 300 mg PO QHS 03/10/22 [History Last Taken 03/09/22] lactulose 10 gram/15 mL oral solution 30 ml PO BID 03/10/22 [History Last Taken 03/09/22] midodrine 5 mg tablet 10 mg PO TID 03/10/22 [History Last Taken 03/10/22] furosemide 20 mg tablet (Lasix) 20 mg PO DAILY 30 days #30 tabs 03/12/22 [Rx Last Taken Unknown] spironolactone 25 mg tablet 25 mg PO DAILY 30 days #30 tabs 03/12/22 [Rx Last Taken Unknown] prednisone 20 mg tablet 20 mg PO DAILY #14 tabs 04/07/22 [Rx Last Taken Unknown] Allergy/AdvReac Type Severity Reaction Status Date / Time azithromycin [From Zithromax] AdvReac Diarrhea Verified 04/29/22 22:26 codeine AdvReac Nausea Verified 04/29/22 22:26 promethazine [From Phenergan] AdvReac Vomiting Verified 04/29/22 22:26 Family History Father Cancer Lung CA with tobacco use history. Heart disease Mother Cancer Hx breast CA. Diabetes Hypertension Other Alcoholic cirrhosis of liver with ascites Surgical History H/O breast augmentation H/O: knee surgery Previous section S/P tonsillectomy and adenoidectomy Social History housing: other details: Lives at home, her 15, 16 year old children live with her. 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 substance use type: does not use ROS ROS ED ROS Narrative Constitutional: Denies fever HEENT: Denies sore throat Neck: Denies neck pain Cardiovascular: Denies chest pain, syncope Respiratory: Denies shortness of breath GI: Denies nausea vomiting or abdominal pain : Denies changes in urinary habits Musculoskeletal: Denies muscle or joint pain Neurologic: Denies numbness weakness or loss of sensation Skin denies rash EXAM Physical Exam Narrative Exam Narrative: Nursing triage notes reviewed, Vital signs reviewed Constitutional: please see mdm HENT: MMM Eyes: Pupils equal round and reactive to light, Extraocular muscles intact Neck: No stridor, no JVD, full neck ROM Lungs: Clear to auscultation, No wheezing or rales. No increased work of breathing, no conversational dyspnea, no accessory muscle use, no nasal flaring. No respiratory distress noted Heart: Regular rate and rhythm, No murmurs, No rubs and No gallops, 2+ distal pulses (radial, femoral, posterior tibial) in all extremities Abdomen: Soft, there is no tenderness, rigidity, rebound or guarding, no obvious peritoneal signs, no palpable pulsatile abdominal masses, no auscultated abdominal bruit : No CVAT Extremities: No edema Neuro: No focal neurological deficits, cranial nerves II through XII intact, 5/5 strength in all extremities. Intact sensation to light touch in all extremities, 2+ reflexes bilateral patella dens. Normal gait. No ataxia. Skin: No rash or lesions noted Const Vital Signs: 04/29/22 22:26 04/30/22 00:28 Temperature 95.7 F L Temperature Source Temporal Pulse Rate 107 H 103 H Respiratory Rate 15 18 Respiratory Pattern Normal Blood Pressure 110/69 Blood Pressure Mean 82 Pulse Ox 98 Oxygen Delivery Method Room Air MDM MDM MDM Narrative Medical decision making narrative: 46-year-old female here with concern for hyponatremia states her sodium levels 116 on earlier lab assessment. Labs repeated here with a sodium level of 120 and more concerning a glucose level of 923. Concern for DKA, HHS, other electrolyte abnormalities. Patient had pseudohyponatremia. Patient's bicarb was greater than 15 and she had no anion gap, the patient was not in DKA. She is not altered she did appear mildly dehydrated but otherwise no evidence of HHS. labs evidence of systemic inflammation, significant anemia, noted small amount of serum ketones. Patient was given 10 units of insulin, albuterol to treat hyperkalemia as well as hyperglycemia she was given 2 L normal saline for hyponatremia. Patient was admitted to ICU. Discussed with inpatient Dr. López (it security administrator) who accepted the patient's case. Lab Data Attestation: I reviewed the patient's lab results. Lab results narrative: CBC without leukocytosis, severe anemia, no thrombocytopenia. BMP with pseudohyponatremia, hyperkalemia, no anion gap, DAMIR, severe hyperglycemia Magnesium within normal limits LFTs with hyperbilirubinemia, no significant hyperbilirubinemia, no significant elevations in liver enzymes Acetone levels positive for serum ketones UA with ketonuria no obvious evidence of infection VBG with metabolic acidosis Labs: Laboratory Results - last 24 hr 04/29/22 04/29/22 04/29/22 22:25 22:50 22:55 WBC 10.5 RBC 4.27 Hgb 13.6 Hct 39.8 MCV 93.2 MCH 31.9 MCHC 34.2 RDW Std Deviation 43.4 RDW Coeff of Teressa 12.7 Plt Count 442 MPV 10.6 Sodium Potassium Chloride Carbon Dioxide Anion Gap BUN Creatinine Estim Creat Clear Calc Est GFR (MDRD) Af Amer Est GFR (MDRD) Non-Af BUN/Creatinine Ratio Glucose Serum Osmolality 320 H Calcium Magnesium Total Bilirubin AST ALT Alkaline Phosphatase Total Protein Albumin Globulin Albumin/Globulin Ratio Acetone Level SMALL H 04/29/22 22:55 WBC RBC Hgb Hct MCV MCH MCHC RDW Std Deviation RDW Coeff of Teressa Plt Count MPV Sodium 120 L Potassium 5.7 H Chloride 85 L Carbon Dioxide 21.0 Anion Gap 14 BUN 26 H Creatinine 1.26 H Estim Creat Clear Calc 35.89 Est GFR (MDRD) Af Amer 58 L Est GFR (MDRD) Non-Af 48 L BUN/Creatinine Ratio 20.6 H Glucose 923 H* Serum Osmolality Calcium 9.1 Magnesium 1.9 Total Bilirubin 0.80 AST 12 L ALT 16 Alkaline Phosphatase 113 Total Protein 6.4 Albumin 3.0 L Globulin 3.4 Albumin/Globulin Ratio 0.9 Acetone Level ABG Data ABG results: ABG 04/30/22 01:16 Specimen Type SANDRINE VBG pH 7.28 L VBG pO2 36 VBG HCO3 17 L VBG Total CO2 18 L VBG O2 Sat (Calc) 62 VBG Base Excess -10 L POC Mix VBG pCO2 Pt Tmp 35.7 L O2 Delivery Device Room Air EKG Initial EKG: Attestation: I personally reviewed and interpreted this EKG as follows: Comments: EKG with normal sinus rhythm, normal axis, normal intervals, no STEMI Treatment and Re-Evaluation Narrative: The patient remained hemodynamically stable is appropriate for admission to the intensive care unit repeat BMP showed improvement in blood glucose level, pseudohyponatremia, hyperkalemia, DAMIR. Patient continued to have an anion gap, bicarb increased from 21-23. These are reassuring signs. Discharge Plan Dx/Rx/DC Orders Clinical Impression: Hyperglycemia due to diabetes mellitus, Ketonuria, Pseudohyponatremia, Acute hyperkalemia, Metabolic acidosis with normal anion gap and bicarbonate losses Disposition Disposition: Acute Care Hospital [facility]
--- NOTE | 2022-04-29 23:07 | EKG12_ITS ---
Test Reason : DYSRHYTHMIA Blood Pressure : / mmHG Vent. Rate : 098 BPM Atrial Rate : 098 BPM P-R Int : 144 ms QRS Dur : 072 ms QT Int : 336 ms P-R-T Axes : 081 080 066 degrees QTc Int : 428 ms Normal sinus rhythm Biatrial enlargement Abnormal ECG Confirmed by RAFAEL BECK, TOMY ([id number]), metropolitan editor AMAYA PITTMAN ([id number]) on 05/04/2022 11:45:26 AM Referred By: RAKAN Confirmed By:TOMY HALL MD
[2022-04-29 23:26] LABS: Hematocrit 39.8 % (37-47); Hemoglobin 13.6 g/dL (12.0-15.0); Mean Corp Hgb Conc 34.2 g/dL (32-36); Mean Corpuscular Hgb 31.9 pg (27.0-32.0); Mean Corpuscular Volume 93.2 fL (81-99); Mean Platelet Vol. 10.6 fl (6.2-12.0); Platelet Count 442 K/mm3 (150-450); RBC Distribution Width CV 12.7 % (11.6-14.6); RBC Distribution Width SD 43.4 fl (35.1-43.9); Red Blood Count 4.27 M/mm3 (4.2-5.4); White Blood Count 10.5 K/mm3 (4.4-11.0)
[2022-04-29] MEDS: 0.9% Normal Saline 1,000 ML 1000 ML IV (23:28)
[2022-04-30] VITALS (26 sets, daily range): BP systolic 87–128; BP diastolic 58–85; PULSE 74–103; RESP 10–18; TEMP 36.3–37.2; O2SAT 96–100; BMI 14.9
[2022-04-30 00:08] LABS: ALB/GLOB Ratio 0.9 RATIO (0.9-2.4); AST(SGOT) 12 U/L (15-37); Alanine Aminotransfer ALT/SGPT 16 U/L (13-56); Alkaline Phosphatase 113 U/L (45-117); Anion Gap 14 (5-15); BUN 26 mg/dL (7-18); BUN/Creat Ratio 20.6 RATIO (10-20); Calcium,Total 9.1 mg/dL (8.5-10.1); Chloride 85 mmol/L (98-107); Creatinine, Serum 1.26 mg/dL (0.55-1.02); EST Glomerular Filtration Rate 48 mL/min (>60); Est Glom Filt Rate - Afr Amer 58 mL/min (>60); Estimated Creatinine Clearance 35.89 ml/min; Globulin 3.4 g/dL (2.2-4.2); Glucose 923 mg/dL (74-106); Magnesium 1.9 mg/dL (1.6-2.6); Potassium 5.7 mmol/L (3.5-5.1); Protein, Total 6.4 g/dL (6.4-8.2); Sodium Level 120 mmol/L (136-145)
[2022-04-30] MEDS: Albuterol 2.5 MG/3 ML VIAL.NEB. INHALATION (00:28)
[2022-04-30] MEDS: 0.9% Normal Saline 1,000 ML 999 ML IV ×2 (00:54→03:42)
[2022-04-30 01:20] LABS: Blood Gas Specimen Type VEN; O2 Delivery Device Room Air; VBG BASE EXCESS -10 mmol/L (-1.0-3.5); VBG Bicarbonate 17 mmol/L (22-26); VBG PO2 36 mmHg (25-40); VBG SO2 62 % (50-70); VBG TCO2 18 mmol/L (23-33); VBG pCO2 35.7 mmHg (41-51); VBG pH 7.28 (7.32-7.42)
--- NOTE | 2022-04-30 01:46 | PCM.HP.STD ---
[facility] - General General Date of Service: 04/30/22 Chief Complaint: hyponatremia HPI Narrative DAVID TATE, is a 46 F with a significant history of alcoholic liver cirrhosis who presents emergency department with hyponatremia. Reportedly patient went for a routine blood work. She was called to come to the emergency department because his sodium was 116. She reports malaise. She reports chronic diarrhea which has not changed. [facility] Medical History Alcoholic cirrhosis of liver with ascites Alcoholism Anxiety Asthma Breast implant status Chronic diarrhea Closed head injury COVID-19 Diabetes Fatty liver Gastritis and duodenitis H. pylori infection History of alcohol abuse HLD (hyperlipidemia) HTN (hypertension) Hypertension Migraines Nicotine abuse Pancreatitis Post-menopausal Recurrent acute pancreatitis SBP (spontaneous bacterial peritonitis) Smoker Transaminitis Home Medications duloxetine 60 mg capsule,delayed release 60 mg PO DAILY depression 12/10/21 [History Last Taken 03/10/22] ursodiol 300 mg capsule 300 mg PO BID Check with primary doctor 12/10/21 [History Last Taken 03/10/22] ondansetron 4 mg disintegrating tablet 4 mg PO Q8H PRN nausea and vomiting #14 tabs 02/09/22 [Rx Last Taken 3 Days Ago ~03/07/22] famotidine 20 mg tablet 20 mg PO BID #60 tabs 02/20/22 [Rx Last Taken 03/09/22] rifaximin 550 mg tablet (Xifaxan) 550 mg PO BID #60 tabs 02/20/22 [Rx Last Taken 03/10/22] gabapentin 300 mg capsule 300 mg PO QHS 03/10/22 [History Last Taken 03/09/22] lactulose 10 gram/15 mL oral solution 30 ml PO BID 03/10/22 [History Last Taken 03/09/22] midodrine 5 mg tablet 10 mg PO TID 03/10/22 [History Last Taken 03/10/22] furosemide 20 mg tablet (Lasix) 20 mg PO DAILY 30 days #30 tabs 03/12/22 [Rx Last Taken Unknown] spironolactone 25 mg tablet 25 mg PO DAILY 30 days #30 tabs 03/12/22 [Rx Last Taken Unknown] prednisone 20 mg tablet 20 mg PO DAILY #14 tabs 04/07/22 [Rx Last Taken Unknown] Allergy/AdvReac Type Severity Reaction Status Date / Time azithromycin [From Zithromax] AdvReac Diarrhea Verified 04/29/22 22:26 codeine AdvReac Nausea Verified 04/29/22 22:26 promethazine [From Phenergan] AdvReac Vomiting Verified 04/29/22 22:26 Family History Father Cancer Lung CA with tobacco use history. Heart disease Mother Cancer Hx breast CA. Diabetes Hypertension Other Alcoholic cirrhosis of liver with ascites Surgical History H/O breast augmentation H/O: knee surgery Previous section S/P tonsillectomy and adenoidectomy Social History housing: other details: Lives at home, her 15, 16 year old children live with her. 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 substance use type: does not use ROS ROS Narrative Pertinent positives and pertinent negatives as noted in HPI. All other systems were reviewed and are negative Vital Signs Vital Signs Vital Signs: 04/29/22 22:26 04/30/22 00:28 Temperature 95.7 F L Temperature Source Temporal Pulse Rate 107 H 103 H Respiratory Rate 15 18 Respiratory Pattern Normal Blood Pressure 110/69 Blood Pressure Mean 82 Pulse Ox 98 Oxygen Delivery Method Room Air Weight Weight: 41.186 kg Body Mass Index (BMI) 14.6 Physical Exam Narrative Physical exam: General: Well-nourished, well-developed. Head: Normocephalic, atraumatic, no tenderness Eyes: Vision is grossly intact. EOMI ENT, no trauma, dry mucous membranes, no rhinorrhea Neck: Nontender, full range of motion, no spinal tenderness, deformities, step-off CVS: Regular rate and rhythm. S1-S2 present. No murmur, gallop or rub. Respiratory : clear to auscultation bilaterally, chest wall nontender, no wheezing Abdomen: Soft, nontender, nondistended, normal bowel sounds, no masses : Deferred Back: Nontender, no CVA tenderness, no midline spinal tenderness, deformities, step-offs Extremities: Cachectic, no trauma Skin: Normal color, no trauma, abrasions Neuro: Alert, oriented, cranial nerves II through XII grossly intact. Psychiatry: Normal mood. Normal affect. Not depressed. Not anxious. Results Lab / Micro Data Result Diagrams: 04/29/22 22:55 04/29/22 22:55 Labs: Laboratory Results - last 24 hr 04/29/22 22:25: Acetone Level SMALL H 04/29/22 22:55: WBC 10.5, RBC 4.27, Hgb 13.6, Hct 39.8, MCV 93.2, MCH 31.9, MCHC 34.2, RDW Std Deviation 43.4, RDW Coeff of Teressa 12.7, Plt Count 442, MPV 10.6 04/29/22 22:55: Sodium 120 L, Potassium 5.7 H, Chloride 85 L, Carbon Dioxide 21.0, Anion Gap 14, BUN 26 H, Creatinine 1.26 H, Estim Creat Clear Calc 35.89, Est GFR (MDRD) Af Amer 58 L, Est GFR (MDRD) Non-Af 48 L, BUN/Creatinine Ratio 20.6 H, Glucose 923 H*, Calcium 9.1, Magnesium 1.9, Total Bilirubin 0.80, AST 12 L, ALT 16, Alkaline Phosphatase 113, Total Protein 6.4, Albumin 3.0 L, Globulin 3.4, Albumin/Globulin Ratio 0.9 ABG Data ABG results: ABG 04/30/22 01:16 Specimen Type SANDRINE VBG pH 7.28 L VBG pO2 36 VBG HCO3 17 L VBG Total CO2 18 L VBG O2 Sat (Calc) 62 VBG Base Excess -10 L POC Mix VBG pCO2 Pt Tmp 35.7 L O2 Delivery Device Room Air Assessment & Plan Assessment/Plan (1) Hyperglycemia due to diabetes mellitus: (2) DAMIR (acute kidney injury): (3) Malnutrition: PLAN: Plan Acute Hyperglycemia Serum glucose : 923 acetone level: small No anion gap Sodium 120. Corrected sodium 133 Insulin drip started from emergency department; continue Completed IV bolus of normal saline and normal saline infusion BMP every 4 hours N.p.o. for now; ice chips okay Check A1c DAMIR/dehydration Dry mucous membrane Creatinine of 1.26. Baseline creatinine of around 0.8 BUN of 26. BUN/CR 20.6 IVF ordered. Trend BMP Severe protein calorie malnutrition BMI of 14.7 with cachexia. Nutrition consult. Alcohol liver cirrhosis With DAMIR and hyperglycemia hold home Lasix and Aldactone. DVT prophylaxis: Subcutaneous Lovenox ordered. Charges/Coding Visit Charges Inpatient E&M: 44550 Init Hosp L3
[2022-04-30 01:53] LABS: Bacteria 0 SEEN /hpf (None Seen); Mucous, Urine 0 SEEN /hpf (<or=2+); Red Blood Cells-Urine 0 SEEN /hpf (0-5); Squamous Epithelial Cells - UA 0 SEEN /hpf (5-10); White Blood Cells 0 SEEN /hpf (0-5)
[2022-04-30 01:54] LABS: Color, Urine Yellow (Yellow); Glucose, Dipstick 1000 mg/dl (Normal); Ketone-Dipstick 50 mg/dl (Negative); Leukocyte Esterase-Dipstick Negative /ul (Negative); Nitrite-Dipstick Negative (Negative); Occult Blood-Urine 25 /ul (Negative); Protein-Dipstick 15 mg/dl (Negative); Urine Bilirubin Dipstick Negative (Negative); Urine Clarity Clear (Clear); Urine Urobilinogen Normal (Normal); Urine pH 6.5 (5.0 - 8.0)
[2022-04-30 01:56] LABS: Bedside Glucose > 500 mg/dL (74-106)
--- NOTE | 2022-04-30 02:34 | ED.RN ---
Hugh Baptiste in ICU will call back to get report shortly
[2022-04-30 02:43] LABS: Anion Gap 12 (5-15); BUN 22 mg/dL (7-18); BUN/Creat Ratio 20.2 RATIO (10-20); Calcium,Total 8.2 mg/dL (8.5-10.1); Chloride 93 mmol/L (98-107); Creatinine, Serum 1.09 mg/dL (0.55-1.02); EST Glomerular Filtration Rate 57 mL/min (>60); Est Glom Filt Rate - Afr Amer 69 mL/min (>60); Estimated Creatinine Clearance 41.49 ml/min; Glucose 619 mg/dL (74-106); Potassium 3.6 mmol/L (3.5-5.1); Sodium Level 128 mmol/L (136-145)
[2022-04-30 02:56] LABS: Osmolality, Serum 320 mOsm/KG (275-295)
[2022-04-30 04:25] LABS: Anion Gap 12 (5-15); BUN 20 mg/dL (7-18); BUN/Creat Ratio 20.6 RATIO (10-20); Calcium,Total 7.8 mg/dL (8.5-10.1); Chloride 96 mmol/L (98-107); Creatinine, Serum 0.97 mg/dL (0.55-1.02); EST Glomerular Filtration Rate 65 mL/min (>60); Est Glom Filt Rate - Afr Amer 79 mL/min (>60); Glucose 509 mg/dL (74-106); Potassium 3.6 mmol/L (3.5-5.1); Sodium Level 126 mmol/L (136-145)
[2022-04-30 04:26] LABS: Bedside Glucose > 500 mg/dL (74-106)
[2022-04-30] MEDS: 0.9% Normal Saline 1,000 ML 500 ML IV (04:47)
[2022-04-30 05:55] LABS: Bedside Glucose 479 mg/dL (74-106)
[2022-04-30] MEDS: Midodrine HCl 5 MG Tablet 10 MG PO ×3 (06:48→21:01)
[2022-04-30 07:01] LABS: Bedside Glucose 418 mg/dL (74-106)
[2022-04-30] MEDS: 0.9% Normal Saline 1,000 ML 150 ML IV ×2 (07:05→14:02)
[2022-04-30 07:38] LABS: Absolute Neutrophil Count 8.5 X10^3/uL (2.0-7.7); Basophil# 0.01 X10^3/uL; Basophil% 0.1 % (0-1); Hematocrit 44.6 % (37-47); Hemoglobin 14.9 g/dL (12.0-15.0); Lymphocyte % 9.9 % (19-41); Mean Corp Hgb Conc 33.4 g/dL (32-36); Mean Corpuscular Hgb 31.5 pg (27.0-32.0); Mean Corpuscular Volume 94.3 fL (81-99); Monocyte# 0.46 X10^3/uL; Monocyte% 4.6 % (0-10); NRBC Flagged by Analyzer 0 % (0-5); Neutrophil # 8.53 X10^3/uL (2.7-7.7); Neutrophil % 84.8 % (47-70); Platelet Count 394 K/mm3 (150-450); RBC Distribution Width CV 12.8 % (11.6-14.6); RBC Distribution Width SD 43.9 fl (35.1-43.9); Red Blood Count 4.73 M/mm3 (4.2-5.4); White Blood Count 10.1 K/mm3 (4.4-11.0)
[2022-04-30] MEDS: predniSONE 20 MG Tablet PO (07:51)
[2022-04-30] MEDS: Enoxaparin 40 MG/0.4 ML Syringe SC (08:57)
[2022-04-30] MEDS: Lactulose 20 GM/30 ML UDC PO ×2 (08:57→21:00)
[2022-04-30] MEDS: rifAXIMin 550 MG Tablet PO ×2 (08:57→21:03)
[2022-04-30] MEDS: Ursodiol 250 MG Tablet PO ×2 (08:57)
[2022-04-30] MEDS: Famotidine 20 MG Tablet PO ×2 (08:57→20:33)
[2022-04-30] MEDS: DULoxetine Hcl 60 MG Capsule PO (08:57)
[2022-04-30] MEDS: FLU VACC QS2022-23(6MOS UP)/PF 60 MCG/0.5 ML SYRINGE IM (09:00)
[2022-04-30 09:30] LABS: Bedside Glucose 355 mg/dL (74-106)
[2022-04-30 09:32] LABS: Anion Gap 8 (5-15); BUN 16 mg/dL (7-18); BUN/Creat Ratio 23.7 RATIO (10-20); Calcium,Total 7.8 mg/dL (8.5-10.1); Chloride 104 mmol/L (98-107); Creatinine, Serum 0.67 mg/dL (0.55-1.02); EST Glomerular Filtration Rate 99 mL/min (>60); Est Glom Filt Rate - Afr Amer 120 mL/min (>60); Estimated Creatinine Clearance 70.79 ml/min; Glucose 342 mg/dL (74-106); Potassium 3.4 mmol/L (3.5-5.1); Sodium Level 134 mmol/L (136-145)
--- NOTE | 2022-04-30 09:37 | PN.HOSP_ITS ---
Subjective Subjective Patient seen and examined. She had no active complaints and had an uneventful night. She denied any fever, chills, cough, chest pain, palpitations, dizziness, nausea, vomiting or diarrhea. Review of systems is otherwise negative. SHe was down to 1 unit per insulin drip. BMP is pending. Objective Data Objective Data Vital Signs: Vital Signs Temp Pulse Resp BP Pulse Ox O2 Del Method 97.9 F 80 12 108/67 100 Room Air 04/30/22 05:52 04/30/22 08:00 04/30/22 08:00 04/30/22 08:00 04/30/22 08:00 04/30/22 09:29 Oxygen Delivery Method Room Air Weight: 95 lb 3.835 oz Body Mass Index (BMI) 14.9 Intake & Output: Intake and Output for Last 24 Hours 04/28/22 04/29/22 04/30/22 23:59 23:59 23:59 Intake Total 4012.16 / 4012.16 Balance 4012.16 / 4012.16 Lab / Micro Data Result Diagrams: 04/30/22 07:00 04/30/22 09:05 Labs: Laboratory Results - last 24 hr 04/29/22 22:25: Acetone Level SMALL H 04/29/22 22:50: Serum Osmolality 320 H 04/29/22 22:55: WBC 10.5, RBC 4.27, Hgb 13.6, Hct 39.8, MCV 93.2, MCH 31.9, MCHC 34.2, RDW Std Deviation 43.4, RDW Coeff of Teressa 12.7, Plt Count 442, MPV 10.6 04/29/22 22:55: Sodium 120 L, Potassium 5.7 H, Chloride 85 L, Carbon Dioxide 21.0, Anion Gap 14, BUN 26 H, Creatinine 1.26 H, Estim Creat Clear Calc 35.89, Est GFR (MDRD) Af Amer 58 L, Est GFR (MDRD) Non-Af 48 L, BUN/Creatinine Ratio 20.6 H, Glucose 923 H*, Calcium 9.1, Magnesium 1.9, Total Bilirubin 0.80, AST 12 L, ALT 16, Alkaline Phosphatase 113, Total Protein 6.4, Albumin 3.0 L, Globulin 3.4, Albumin/Globulin Ratio 0.9 04/30/22 01:33: POC Glucose > 500 H* 04/30/22 01:35: Urine Color Yellow, Urine Clarity Clear, Urine pH 6.5, Ur Specific [place] 1.010, Urine Protein 15 H, Urine Glucose (UA) 1000 H, Urine Ketones 50 H, Urine Occult Blood 25 H, Urine Nitrite Negative, Urine Bilirubin Negative, Urine Urobilinogen Normal, Ur Leukocyte Esterase Negative, Urine RBC 0 SEEN, Urine WBC 0 SEEN, Ur Squamous Epith Cells 0 SEEN, Urine Bacteria 0 SEEN, Urine Mucus 0 SEEN 04/30/22 02:20: Sodium 128 L, Potassium 3.6, Chloride 93 L, Carbon Dioxide 23.0, Anion Gap 12, BUN 22 H, Creatinine 1.09 H, Estim Creat Clear Calc 41.49, Est GFR (MDRD) Af Amer 69, Est GFR (MDRD) Non-Af 57 L, BUN/Creatinine Ratio 20.2 H, Glucose 619 H*, Calcium 8.2 L 04/30/22 03:41: POC Glucose > 500 H* 04/30/22 03:50: Sodium 126 L, Potassium 3.6, Chloride 96 L, Carbon Dioxide 18.0 L, Anion Gap 12, BUN 20 H, Creatinine 0.97, Estim Creat Clear Calc 48.90, Est GFR (MDRD) Af Amer 79, Est GFR (MDRD) Non-Af 65, BUN/Creatinine Ratio 20.6 H, Glucose 509 H*, Calcium 7.8 L 04/30/22 05:33: POC Glucose 479 H* 04/30/22 06:41: POC Glucose 418 H 04/30/22 07:00: WBC 10.1, RBC 4.73, Hgb 14.9, Hct 44.6, MCV 94.3, MCH 31.5, MCHC 33.4, RDW Std Deviation 43.9, RDW Coeff of Teressa 12.8, Plt Count 394, MPV 11.0, Immature Gran % (Auto) 0.600, Neut % (Auto) 84.8 H, Lymph % (Auto) 9.9 L, [place] % (Auto) 4.6, Eos % (Auto) 0.0, Baso % (Auto) 0.1, Absolute Neuts (auto) 8.5 H, Absolute Lymphs (auto) 1.00, Nucleated RBC % 0 04/30/22 07:00: Hemoglobin A1c 13.0 H 04/30/22 07:31: POC Glucose 355 H 04/30/22 09:05: Sodium 134 L, Potassium 3.4 L, Chloride 104, Carbon Dioxide 22.0, Anion Gap 8, BUN 16, Creatinine 0.67, Estim Creat Clear Calc 70.79, Est GFR (MDRD) Af Amer 120, Est GFR (MDRD) Non-Af 99, BUN/Creatinine Ratio 23.7 H, Glucose 342 H, Calcium 7.8 L ABG Data ABG results: ABG 04/30/22 01:16 Specimen Type SANDRINE VBG pH 7.28 L VBG pO2 36 VBG HCO3 17 L VBG Total CO2 18 L VBG O2 Sat (Calc) 62 VBG Base Excess -10 L POC Mix VBG pCO2 Pt Tmp 35.7 L O2 Delivery Device Room Air Physical Exam Const alert, oriented x3 and no apparent distress HEENT head/scalp atraumatic, moist oral mucous membranes and oropharynx normal Head and Scalp: normocephalic Mouth: oral and palatal mucosa normal Eyes PERRL and EOMs intact bilaterally Neck no lymphadenopathy and supple Resp normal respiratory effort, no retractions, no use of accessory muscles and clear to auscultation bilaterally Cardio regular rate, regular rhythm, S1 normal heart sound, S2 normal heart sound and no murmurs GI normal to inspection, nondistended, normoactive bowel sounds, soft to palpation, non-tender and non-distended Extremity normal to inspection, full ROM and no clubbing, cyanosis or edema Neuro oriented x3, CN's II-XII intact bilaterally, moves all extremities and no focal motor deficits Sensorium / Orientation: awake and alert Motor Exam: strength 5/5 throughout Psych affect normal Assessment & Plan Assessment/Plan (1) Hyperglycemia due to diabetes mellitus: (2) Pseudohyponatremia: PLAN: Plan #Hyperosmolar hyperglycemia * blood sugar down to the 300s this morning. On 1U of insulin per insulin drip * repeat BMP pending * patient says she was taken off her metformin, but she doesnt know if she was supposed to be taking any other diabetes meds * continue hydration with iVF * switch to sq insulin once glucose is <250 and then start oral diet * #Hyponatremia * sodium was 120 on admission, with corrected sodium being 133. * sodium is 126 this morning; likely exacerbated by hypeglycemia * being hydrated with IVF. * will trend sodium; should improve once hyperglycemia has resolved * #DAMIR: Cr has trended downwards; likely due to hyperglycemia and dehydration. WIll trend sodium #Alcoholic liver cirrhosis * aldactone and lasix held due to DAMIR and dehydration. WIll resume * on rivaximin and ursodiol as well as prednisone * on midodrine for hypotension * #Hypertension: on losartan.
[2022-04-30 10:56] LABS: Bedside Glucose 337 mg/dL (74-106)
--- NOTE | 2022-04-30 11:50 | CASEMGMT ---
ROGER LEIJA Face to Face with patient for initial transition planning/care coordination assessment. RN CM introduced self and role at [facility]. Patient lying in bed, alert and oriented, friend at bedside. Patient willing to participate in assessment and is able to answer all questions appropriately. Care providers, pharmacy, and demographics verified. Patient wishes to discharge home with resumption of outpatient therapy. Patient states she has no further needs or concerns at this time. CM to follow for discharge planning needs that may arise. PCP: Susanna Specialists: Friend, GI; [facility] Liver specialist Preferred Pharmacy: [facility] Insurance: [place] Prescription Benefit: yes Living Will/HPOA: none LNOK: mother Living Arrangements: Patient lives alone in a single story home with 2 steps and railing to enter the home. Patient states she is independent at home. Transportation: self, mother DME/HHC: Patient states she has cane at home. Patient states she has missed placed her glucometer. Patient to be provided script at discharge. Patient is currently active at [facility] for outpatient therapy. Disposition Plan: Patient to discharge home with resumption of outpatient therapy, family support, and follow-up plans in place. Shruti FELICIANO, RN, CM
[2022-04-30 12:06] LABS: Bedside Glucose 294 mg/dL (74-106)
[2022-04-30 13:05] LABS: Bedside Glucose 352 mg/dL (74-106)
[2022-04-30 13:11] LABS: Bedside Glucose 290 mg/dL (74-106)
[2022-04-30 14:10] LABS: Bedside Glucose 341 mg/dL (74-106)
[2022-04-30] MEDS: Acetaminophen 325 MG Tablet 650 MG PO (14:55)
[2022-04-30 15:26] LABS: Bedside Glucose 235 mg/dL (74-106)
[2022-04-30 15:54] LABS: Anion Gap 9 (5-15); BUN 12 mg/dL (7-18); BUN/Creat Ratio 18.5 RATIO (10-20); Calcium,Total 7.6 mg/dL (8.5-10.1); Chloride 106 mmol/L (98-107); Creatinine, Serum 0.65 mg/dL (0.55-1.02); EST Glomerular Filtration Rate 104 mL/min (>60); Est Glom Filt Rate - Afr Amer 126 mL/min (>60); Estimated Creatinine Clearance 72.97 ml/min; Glucose 263 mg/dL (74-106); Potassium 3.8 mmol/L (3.5-5.1); Sodium Level 135 mmol/L (136-145)
[2022-04-30] MEDS: Insulin Lispro 100 UNIT/ML INSULN.PEN SC ×2 (16:25→20:32)
[2022-04-30] MEDS: Insulin Glargine-YFGN 100 UNIT/ML Pen 10 UNIT SC (16:25)
[2022-04-30] MEDS: Dext 5%-0.45% NS 1,000 ML 75 ML IV (16:26)
[2022-04-30 16:50] LABS: Bedside Glucose 233 mg/dL (74-106)
[2022-04-30 19:21] LABS: Anion Gap 5 (5-15); BUN 11 mg/dL (7-18); BUN/Creat Ratio 18.1 RATIO (10-20); Calcium,Total 7.7 mg/dL (8.5-10.1); Chloride 107 mmol/L (98-107); Creatinine, Serum 0.61 mg/dL (0.55-1.02); EST Glomerular Filtration Rate 112 mL/min (>60); Est Glom Filt Rate - Afr Amer 135 mL/min (>60); Estimated Creatinine Clearance 77.75 ml/min; Glucose 328 mg/dL (74-106); Potassium 3.8 mmol/L (3.5-5.1); Sodium Level 134 mmol/L (136-145)
[2022-04-30] MEDS: Gabapentin 300 MG Capsule PO (20:33)
[2022-04-30] MEDS: MELATONIN 3 MG TABLET PO (22:06)
[2022-04-30 23:43] LABS: Anion Gap 7 (5-15); BUN 10 mg/dL (7-18); BUN/Creat Ratio 13.4 RATIO (10-20); Chloride 107 mmol/L (98-107); Creatinine, Serum 0.74 mg/dL (0.55-1.02); EST Glomerular Filtration Rate 89 mL/min (>60); Est Glom Filt Rate - Afr Amer 107 mL/min (>60); Estimated Creatinine Clearance 64.09 ml/min; Glucose 413 mg/dL (74-106); Potassium 3.7 mmol/L (3.5-5.1); Sodium Level 135 mmol/L (136-145)
[2022-05-01] VITALS (14 sets, daily range): BP systolic 98–118; BP diastolic 68–85; PULSE 66–96; RESP 15–18; TEMP 36.4–37.3; O2SAT 94–99
[2022-05-01 00:36] LABS: Bedside Glucose 366 mg/dL (74-106)
[2022-05-01] MEDS: Midodrine HCl 5 MG Tablet 10 MG PO ×3 (05:20→22:47)
[2022-05-01] MEDS: Insulin Lispro 100 UNIT/ML INSULN.PEN SC ×2 (05:23→12:34)
[2022-05-01] MEDS: Ondansetron ODT 4 MG Tablet PO ×2 (06:49→17:08)
[2022-05-01 06:56] LABS: Absolute Lymphocyte Count 2.88 X10^3/uL (0.83-4.51); Absolute Neutrophil Count 4.8 X10^3/uL (2.0-7.7); Basophil# 0.03 X10^3/uL; Basophil% 0.4 % (0-1); Eosinophil# 0.06 X10^3/uL; Eosinophils% 0.7 % (0-5); Hematocrit 33.5 % (37-47); Hemoglobin 11.3 g/dL (12.0-15.0); Lymphocyte # 2.88 X10^3/ul (0.83-4.51); Lymphocyte % 34.4 % (19-41); Mean Corp Hgb Conc 33.7 g/dL (32-36); Mean Corpuscular Hgb 32.2 pg (27.0-32.0); Mean Corpuscular Volume 95.4 fL (81-99); Mean Platelet Vol. 9.2 fl (6.2-12.0); Monocyte# 0.58 X10^3/uL; Monocyte% 6.9 % (0-10); NRBC Flagged by Analyzer 0 % (0-5); Neutrophil # 4.75 X10^3/uL (2.7-7.7); Neutrophil % 56.9 % (47-70); Platelet Count 281 K/mm3 (150-450); RBC Distribution Width CV 12.9 % (11.6-14.6); RBC Distribution Width SD 44.8 fl (35.1-43.9); Red Blood Count 3.51 M/mm3 (4.2-5.4); White Blood Count 8.4 K/mm3 (4.4-11.0)
[2022-05-01 07:49] LABS: AST(SGOT) 11 U/L (15-37); Alanine Aminotransfer ALT/SGPT 11 U/L (13-56); Alkaline Phosphatase 66 U/L (45-117); Anion Gap 9 (5-15); BUN 8 mg/dL (7-18); BUN/Creat Ratio 11.6 RATIO (10-20); Calcium,Total 7.7 mg/dL (8.5-10.1); Chloride 109 mmol/L (98-107); Creatinine, Serum 0.69 mg/dL (0.55-1.02); EST Glomerular Filtration Rate 97 mL/min (>60); Est Glom Filt Rate - Afr Amer 117 mL/min (>60); Estimated Creatinine Clearance 72.88 ml/min; Globulin 2.1 g/dL (2.2-4.2); Glucose 364 mg/dL (74-106); Potassium 3.5 mmol/L (3.5-5.1); Protein, Total 4.1 g/dL (6.4-8.2); Sodium Level 137 mmol/L (136-145)
[2022-05-01] MEDS: predniSONE 20 MG Tablet PO (09:19)
[2022-05-01] MEDS: DULoxetine Hcl 60 MG Capsule PO (09:20)
[2022-05-01] MEDS: Insulin Glargine-YFGN 100 UNIT/ML Pen 10 UNIT SC ×2 (09:21→22:49)
[2022-05-01] MEDS: Enoxaparin 40 MG/0.4 ML Syringe SC (09:21)
[2022-05-01] MEDS: rifAXIMin 550 MG Tablet PO ×2 (09:22→22:48)
[2022-05-01] MEDS: Famotidine 20 MG Tablet PO ×2 (09:22→22:48)
[2022-05-01] MEDS: Ursodiol 250 MG Tablet PO ×2 (09:23→22:48)
[2022-05-01 11:40] LABS: Bedside Glucose 363 mg/dL (74-106)
--- NOTE | 2022-05-01 12:22 | PN.HOSP_ITS ---
Subjective Subjective Patient seen and examined. She feels quite weak. She denies any fever, chills, cough, chest pain, palpitations, dizziness, nausea, vomiting or diarrhea. Review of systems is otherwise negative. Objective Data Objective Data Vital Signs: Vital Signs Temp Pulse Resp BP Pulse Ox O2 Del Method 98.0 F 87 15 113/76 94 Room Air 05/01/22 12:22 05/01/22 12:22 05/01/22 12:22 05/01/22 12:22 05/01/22 12:22 05/01/22 12:22 Oxygen Delivery Method Room Air Weight: 100 lb 15.547 oz Body Mass Index (BMI) 14.9 Intake & Output: Intake and Output for Last 24 Hours 04/29/22 04/30/22 05/01/22 23:59 23:59 23:59 Intake Total 5599.50 / 5599.50 1480 / 1480 Balance 5599.50 / 5599.50 1480 / 1480 Medical Nutrition Assessment Dietitian: Malnutrition Criteria Met Start: 04/30/22 11:42 Freq: Status: Active Protocol: Document 04/30/22 11:42 SLA (Rec: 04/30/22 11:42 SLA [id number]) Nutrition Malnutrition Evidence of Malnutrition Exists Yes Malnutrition (severe): Chronic Evidenced By Suboptimal Energy Intake ( Severe),Weight Loss (Severe), Physical Changes (Severe) Clinical Problem Chronic Disease or Condition Related Malnutrition Etiology related to pt inability to consume adequate nutrition to meet est nutritional needs with increased nutritional needs r/t cirrhosis Signs/Symptoms as evidenced by 22.1% wt loss x 11 mo, po intake meeting <75 % of estimated nutritional needs and obvious fat/muscle loss to face, arms, legs, torso. Status Active Problem Recommendation Dietitian Recommendations/Changes When medically able, rec LAURYN to 1800 maira Sodium restricted diet Rec provide 8 oz ensure plus high protein w/ meals per pt request (does not like glucerna shake) Lab / Micro Data Result Diagrams: 05/01/22 06:36 05/01/22 06:36 Labs: Laboratory Results - last 24 hr 04/30/22 08:54: POC Glucose 352 H 04/30/22 12:51: POC Glucose 290 H 04/30/22 13:50: POC Glucose 341 H 04/30/22 14:52: Sodium 135 L, Potassium 3.8, Chloride 106, Carbon Dioxide 20.0 L , Anion Gap 9, BUN 12, Creatinine 0.65, Estim Creat Clear Calc 72.97, Est GFR (MDRD) Af Amer 126, Est GFR (MDRD) Non-Af 104, BUN/Creatinine Ratio 18.5, Glucose 263 H, Calcium 7.6 L 04/30/22 15:03: POC Glucose 235 H 04/30/22 16:25: POC Glucose 233 H 04/30/22 18:30: Sodium 134 L, Potassium 3.8, Chloride 107, Carbon Dioxide 22.0, Anion Gap 5, BUN 11, Creatinine 0.61, Estim Creat Clear Calc 77.75, Est GFR (MDRD) Af Amer 135, Est GFR (MDRD) Non-Af 112, BUN/Creatinine Ratio 18.1, Glucose 328 H, Calcium 7.7 L 04/30/22 20:09: POC Glucose 366 H 04/30/22 23:07: Sodium 135 L, Potassium 3.7, Chloride 107, Carbon Dioxide 21.0, Anion Gap 7, BUN 10, Creatinine 0.74, Estim Creat Clear Calc 64.09, Est GFR (MDRD) Af Amer 107, Est GFR (MDRD) Non-Af 89, BUN/Creatinine Ratio 13.4, Glucose 413 H, Calcium 8.0 L 05/01/22 05:22: POC Glucose 363 H 05/01/22 06:36: WBC 8.4, RBC 3.51 L, Hgb 11.3 L, Hct 33.5 L, MCV 95.4, MCH 32.2 H, MCHC 33.7, RDW Std Deviation 44.8 H, RDW Coeff of Teressa 12.9, Plt Count 281, MPV 9.2, Immature Gran % (Auto) 0.700, Neut % (Auto) 56.9, Lymph % (Auto) 34.4, [place] % (Auto) 6.9, Eos % (Auto) 0.7, Baso % (Auto) 0.4, Absolute Neuts (auto) 4.8, Absolute Lymphs (auto) 2.88, Nucleated RBC % 0 05/01/22 06:36: Sodium 137, Potassium 3.5, Chloride 109 H, Carbon Dioxide 19.0 L , Anion Gap 9, BUN 8, Creatinine 0.69, Estim Creat Clear Calc 72.88, Est GFR (MDRD) Af Amer 117, Est GFR (MDRD) Non-Af 97, BUN/Creatinine Ratio 11.6, Glucose 364 H, Calcium 7.7 L, Total Bilirubin 0.30, AST 11 L, ALT 11 L, Alkaline Phosphatase 66, Total Protein 4.1 L, Albumin 2.0 L, Globulin 2.1 L, Albumin/Globulin Ratio 1.0 Physical Exam Const alert, oriented x3 and no apparent distress Orientation / Consciousness: confused HEENT head/scalp atraumatic, moist oral mucous membranes and oropharynx normal Head and Scalp: normocephalic Mouth: oral and palatal mucosa normal Eyes PERRL and EOMs intact bilaterally Neck no lymphadenopathy and supple Resp normal respiratory effort, no retractions, no use of accessory muscles and clear to auscultation bilaterally Cardio regular rate, regular rhythm, S1 normal heart sound, S2 normal heart sound and no murmurs GI normal to inspection, nondistended, normoactive bowel sounds, soft to palpation, non-tender and non-distended Extremity normal to inspection, full ROM and no clubbing, cyanosis or edema Neuro oriented x3, CN's II-XII intact bilaterally, moves all extremities and no focal motor deficits Sensorium / Orientation: awake and alert Motor Exam: strength 5/5 throughout Psych affect normal Assessment & Plan Assessment/Plan (1) Hyperglycemia due to diabetes mellitus: (2) Pseudohyponatremia: PLAN: Plan #Hyperosmolar hyperglycemia due to poorly controlled diabetes mellitus * on lantus 10 units daily * ISS. Accuchecks ACHS. * off metformin due to episodes of hypoglycemia * * #Hyponatremia * sodium is 137. today. Resolved * * #DAMIR: resolved. Cr is 0.69 today #Alcoholic liver cirrhosis * aldactone and lasix held due to DAMIR and dehydration. WIll resume * on rivaximin and ursodiol as well as prednisone * on midodrine for hypotension * #Hypertension: on losartan. DVT prophylaxis:lovenox Disposition: anticipate dc tomorrow Charges/Coding Visit Charges Inpatient E&M: 54415 Subs Hosp L2
[2022-05-01 13:16] LABS: Bedside Glucose 432 mg/dL (74-106)
[2022-05-01 17:30] LABS: Bedside Glucose > 500 mg/dL (74-106)
[2022-05-01] MEDS: Insulin Lispro 100 UNIT/ML INSULN.PEN 20 UNIT SC (17:51)
--- NOTE | 2022-05-01 19:24 | NURSING ---
BS:479 @ 1928
[2022-05-01 19:41] LABS: Bedside Glucose 479 mg/dL (74-106)
[2022-05-01] MEDS: Gabapentin 300 MG Capsule PO (22:48)
[2022-05-01] MEDS: MELATONIN 3 MG TABLET PO (22:48)
[2022-05-01] MEDS: Lactulose 20 GM/30 ML UDC PO (22:50)
[2022-05-01] MEDS: Insulin Lispro 100 UNIT/ML INSULN.PEN 18 UNIT SC (23:26)
[2022-05-02] VITALS (8 sets, daily range): BP systolic 122–143; BP diastolic 86–89; PULSE 63–95; RESP 15–18; TEMP 36.4–37.1; O2SAT 97–99
[2022-05-02 00:50] LABS: Bedside Glucose 454 mg/dL (74-106)
[2022-05-02 00:50] LABS: Bedside Glucose 438 mg/dL (74-106)
[2022-05-02] MEDS: Insulin Lispro 100 UNIT/ML INSULN.PEN 12 UNIT SC (02:42)
[2022-05-02 02:51] LABS: Bedside Glucose 346 mg/dL (74-106)
[2022-05-02] MEDS: Ondansetron ODT 4 MG Tablet PO (06:51)
[2022-05-02] MEDS: Midodrine HCl 5 MG Tablet 10 MG PO (06:51)
[2022-05-02 07:20] LABS: Bedside Glucose 106 mg/dL (74-106)
[2022-05-02 07:44] LABS: Absolute Lymphocyte Count 2.71 X10^3/uL (0.83-4.51); Absolute Neutrophil Count 6.1 X10^3/uL (2.0-7.7); Basophil# 0.03 X10^3/uL; Basophil% 0.3 % (0-1); Eosinophil# 0.02 X10^3/uL; Eosinophils% 0.2 % (0-5); Hematocrit 34.4 % (37-47); Hemoglobin 11.4 g/dL (12.0-15.0); Lymphocyte # 2.71 X10^3/ul (0.83-4.51); Mean Corp Hgb Conc 33.1 g/dL (32-36); Mean Corpuscular Hgb 31.9 pg (27.0-32.0); Mean Corpuscular Volume 96.4 fL (81-99); Mean Platelet Vol. 9.7 fl (6.2-12.0); Monocyte# 0.81 X10^3/uL; Monocyte% 8.4 % (0-10); NRBC Flagged by Analyzer 0 % (0-5); Neutrophil # 6.06 X10^3/uL (2.7-7.7); Neutrophil % 62.5 % (47-70); Platelet Count 267 K/mm3 (150-450); RBC Distribution Width CV 12.7 % (11.6-14.6); RBC Distribution Width SD 45.1 fl (35.1-43.9); Red Blood Count 3.57 M/mm3 (4.2-5.4); White Blood Count 9.7 K/mm3 (4.4-11.0)
[2022-05-02 08:11] LABS: ALB/GLOB Ratio 0.9 RATIO (0.9-2.4); AST(SGOT) 10 U/L (15-37); Alanine Aminotransfer ALT/SGPT 12 U/L (13-56); Albumin, Serum 2.2 g/dL (3.2-5.0); Alkaline Phosphatase 69 U/L (45-117); Anion Gap 7 (5-15); BUN 10 mg/dL (7-18); BUN/Creat Ratio 18.1 RATIO (10-20); Calcium,Total 8.8 mg/dL (8.5-10.1); Chloride 111 mmol/L (98-107); Creatinine, Serum 0.55 mg/dL (0.55-1.02); EST Glomerular Filtration Rate 125 mL/min (>60); Est Glom Filt Rate - Afr Amer 151 mL/min (>60); Estimated Creatinine Clearance 92.42 ml/min; Globulin 2.5 g/dL (2.2-4.2); Glucose 124 mg/dL (74-106); Potassium 3.4 mmol/L (3.5-5.1); Protein, Total 4.7 g/dL (6.4-8.2); Sodium Level 138 mmol/L (136-145)
[2022-05-02] MEDS: rifAXIMin 550 MG Tablet PO (08:43)
[2022-05-02] MEDS: Ursodiol 250 MG Tablet PO (08:44)
[2022-05-02] MEDS: Famotidine 20 MG Tablet PO (08:44)
[2022-05-02] MEDS: DULoxetine Hcl 60 MG Capsule PO (08:44)
[2022-05-02] MEDS: predniSONE 20 MG Tablet PO (08:44)
[2022-05-02] MEDS: Enoxaparin 40 MG/0.4 ML Syringe SC (08:45)
[2022-05-02] MEDS: Insulin Glargine-YFGN 100 UNIT/ML Pen 10 UNIT SC (08:48)
[2022-05-02] MEDS: Insulin Lispro 100 UNIT/ML INSULN.PEN SC (11:30)
--- NOTE | 2022-05-02 11:39 | DS.PCM_ITS ---
Providers Date of Admission: 04/30/22 Date of Discharge: 05/02/22 Primary Care Physician: Dr. Valerie Mullins MD Reason For Visit: HYPERGLCEMIA STATE Diagnosis Discharge Diagnosis (1) Hyperglycemia due to diabetes mellitus: Status: Acute Code(s): E11.65 - Type 2 diabetes mellitus with hyperglycemia (2) Pseudohyponatremia: Status: Acute Code(s): R79.89 - Other specified abnormal findings of blood chemistry Plan #Hyperosmolar hyperglycemia due to poorly controlled diabetes mellitus * on lantus 10 units daily * ISS. Accuchecks ACHS. * off metformin due to episodes of hypoglycemia * * #Hyponatremia * sodium is 137. today. Resolved * * #DAMIR: resolved. Cr is 0.69 today #Alcoholic liver cirrhosis * aldactone and lasix held due to DAMIR and dehydration. WIll resume * on rivaximin and ursodiol as well as prednisone * on midodrine for hypotension * #Hypertension: on losartan. DVT prophylaxis:lovenox Disposition: anticipate dc tomorrow Medications at Discharge Home Medications duloxetine 60 mg capsule,delayed release 60 mg PO DAILY depression 12/10/21 ursodiol 300 mg capsule 300 mg PO BID gallbladder 12/10/21 ondansetron 4 mg disintegrating tablet 4 mg PO Q8H PRN nausea and vomiting #14 tabs 02/09/22 famotidine 20 mg tablet 20 mg PO BID #60 tabs 02/20/22 rifaximin 550 mg tablet (Xifaxan) 550 mg PO BID #60 tabs 02/20/22 gabapentin 300 mg capsule 300 mg PO QHS nerve pain 03/10/22 lactulose 10 gram/15 mL oral solution 30 ml PO BID cirrhosis 03/10/22 midodrine 5 mg tablet 10 mg PO TID blood pressure 03/10/22 furosemide 20 mg tablet (Lasix) 20 mg PO DAILY 30 days #30 tabs 03/12/22 spironolactone 25 mg tablet 25 mg PO DAILY 30 days #30 tabs 03/12/22 prednisone 20 mg tablet 20 mg PO DAILY #14 tabs 04/07/22 insulin glargine 100 unit/mL (3 mL) subcutaneous pen (Lantus Solostar U-100 Insulin) 15 unit (0.15 mL) subcut DAILY #15 mL 05/02/22 lancets #100 ea 05/02/22 needle (disp) #500 ea 05/02/22 Hospital Course Operations None Procedures None Summary of Care Provided Minutes Spent on Discharge: 43 Hospital Course: Patient is a 46-year-old female with a past medical history as outlined which includes alcoholic liver cirrhosis and diabetes was admitted through the ED on 04/30/2022 with a complaint of hyponatremia. She had gone for routine blood work and was called to come to the ED because sodium was 116 on the blood work. She also complained of generalized malaise but denied any fever, chills, nausea vomiting or diarrhea. Review of systems otherwise negative. Patient had recently been admitted in the hospital for hypoglycemia and her metformin was discontinued. On admission her blood sugar was markedly elevated at 923 with no anion gap. Corrected sodium was 133 and measured sodium was 120. Creatinine was also mildly elevated. She was admitted and managed for hyperosmolar nonketotic hyperglycemia as well as pseudohyponatremia and DAMIR due to dehy dration. She was started on insulin drip and admitted to the ICU. Her Lasix and Aldactone were initially held due to DAMIR. Her blood sugar gradually trended downwards and she was switched to subcu Lantus. Insulin drip was discontinued. He was placed on Lantus 10 units daily. She was started on a diet. A1c checked was 13. She remained stable and was discharged home on 05/02/2022 on subcu insu ferdinand 15 units daily. She is to follow-up with her primary care doctor and was referred to endocrinology. She was counseled to check blood sugars twice daily and present the log to her PCP for insulin dose to be adjusted as needed. She is to follow-up with her primary care doctor and to book an appointment with endocrinology to establish care. Patient was seen and examined prior to discharge. She felt well and had no complaints. She had an uneventful night and review of systems otherwise neg ative. Labs and vitals reviewed. Her medication reviewed and reconciled. Physical Exam Const alert, oriented x3 and no apparent distress General Appearance: cooperative and comfortable Orientation / Consciousness: awake Exam Limitations: no limitations Nutritional Appearance: cachectic HEENT normocephalic, head/scalp atraumatic, hearing grossly normal bilaterally, moist oral mucous membranes and oropharynx normal Mouth: oral and palatal mucosa normal Eyes PERRL and EOMs intact bilaterally Neck no lymphadenopathy and supple Resp normal respiratory effort, no retractions, no use of accessory muscles and clear to auscultation bilaterally Cardio regular rate, regular rhythm, S1 normal heart sound, S2 normal heart sound and no murmurs GI normal to inspection, nondistended, normoactive bowel sounds, soft to palpation, non-tender and non-distended Extremity normal to inspection, full ROM and no clubbing, cyanosis or edema Skin no rashes or lesions noted Neuro oriented x3, CN's II-XII intact bilaterally, moves all extremities and no focal motor deficits Sensorium / Orientation: awake and alert Motor Exam: strength 5/5 throughout Psych affect normal Medical Records Data Medical Nutrition Assessment Dietitian: Malnutrition Criteria Met Start: 04/30/22 11:42 Freq: Status: Active Protocol: Document 04/30/22 11:42 [facility] (Rec: 04/30/22 11:42 [facility] [id number]) Nutrition Malnutrition Evidence of Malnutrition Exists Yes Malnutrition (severe): Chronic Evidenced By Suboptimal Energy Intake ( Severe),Weight Loss (Severe), Physical Changes (Severe) Clinical Problem Chronic Disease or Condition Related Malnutrition Etiology related to pt inability to consume adequate nutrition to meet est nutritional needs with increased nutritional needs r/t cirrhosis Signs/Symptoms as evidenced by 22.1% wt loss x 11 mo, po intake meeting <75 % of estimated nutritional needs and obvious fat/muscle loss to face, arms, legs, torso. Status Active Problem Recommendation Dietitian Recommendations/Changes When medically able, rec LAURYN to 1800 maira Sodium restricted diet Rec provide 8 oz ensure plus high protein w/ meals per pt request (does not like glucerna shake) Weight / BMI Weight Weight: 102 lb 1.184 oz Body Mass Index (BMI) 14.9 ABG / Lab / Microbiology Data Result Diagrams: 05/02/22 06:32 05/02/22 06:32 Laboratory: Laboratory Results - last 24 hr 05/01/22 05:22: POC Glucose 363 H 05/01/22 12:34: POC Glucose 432 H 05/01/22 17:00: POC Glucose > 500 H* 05/01/22 19:21: POC Glucose 479 H* 05/01/22 22:45: POC Glucose 454 H* 05/02/22 00:01: POC Glucose 438 H 05/02/22 02:16: POC Glucose 346 H 05/02/22 06:32: WBC 9.7, RBC 3.57 L, Hgb 11.4 L, Hct 34.4 L, MCV 96.4, MCH 31.9, MCHC 33.1, RDW Std Deviation 45.1 H, RDW Coeff of Teressa 12.7, Plt Count 267, MPV 9.7, Immature Gran % (Auto) 0.600, Neut % (Auto) 62.5, Lymph % (Auto) 28.0, [place] % (Auto) 8.4, Eos % (Auto) 0.2, Baso % (Auto) 0.3, Absolute Neuts (auto) 6.1, Absolute Lymphs (auto) 2.71, Nucleated RBC % 0 05/02/22 06:32: Sodium 138, Potassium 3.4 L, Chloride 111 H, Carbon Dioxide 20.0 L, Anion Gap 7, BUN 10, Creatinine 0.55, Estim Creat Clear Calc 92.42, Est GFR (MDRD) Af Amer 151, Est GFR (MDRD) Non-Af 125, BUN/Creatinine Ratio 18.1, Glucose 124 H, Calcium 8.8, Total Bilirubin 0.40, AST 10 L, ALT 12 L, Alkaline Phosphatase 69, Total Protein 4.7 L, Albumin 2.2 L, Globulin 2.5, Albumi n/Globulin Ratio 0.9 05/02/22 06:51: POC Glucose 106 D/C Instructions Discharge Diet: Low fat / Low cholesterol and 1800 Calorie Control Diet Discharge Activity: Return to Normal Activity Weight Bearing Status: Weight bearing as tolerated Call your doctor if you observe: Fever of 101 or Higher, Shortness of breath, Dizziness, Swelling in the ankles, Chest pain and Increased palpitations (irregular heartbeat) Meaningful Use Info Meaningful Use Diagnoses (Choose all that apply): None applicable Discharge Plan Admission Admit Date/Time: 04/30/22 01:30 Primary Reason for Your Visit: hyperglycemia Attending Provider: Cielo Roque Primary Care Provider: Valerie Mullins Consulting Providers: Benny López Instructions Patient Instructions: Diabetes Blood Glucose Check Ch, Diabetes Carbs Fats Protein Additional Instructions / Restrictions: keep blood sugar log by checking blood sugar in the morning and evening. Present log to PCP for adjustment of diabetes meds Patient Problems: Altered Health Status related to Hospitalization Patient Goals: *Optimal Level of Health *Keep Appointments *Medication Compliance *Remain Safe Discharge Orders/Prescriptions Prescriptions: New insulin glargine [Lantus Solostar U-100 Insulin] 100 unit/mL (3 mL) insulin pen 15 unit subcut DAILY Qty: 15 0RF (DME) lancets Misc See Rx Instructions .Route Qty: 100 0RF Rx Instructions: As directed (DME) needle (disp) Needle See Rx Instructions .Route Qty: 500 0RF Rx Instructions: As directed Continued prednisone 20 mg tablet 20 mg PO DAILY Qty: 14 1RF ursodiol 300 mg capsule 300 mg PO BID Label Comments: take 1 capsule by mouth twice a day duloxetine 60 mg capsule,delayed release(DR/EC) 60 mg PO DAILY Label Comments: take 1 capsule by mouth once daily ondansetron 4 mg tablet,disintegrating 4 mg PO Q8H PRN (Reason: nausea and vomiting) Qty: 14 0RF famotidine 20 mg Tablet 20 mg PO BID Qty: 60 1RF Xifaxan 550 mg Tablet 550 mg PO BID Qty: 60 1RF midodrine 5 mg tablet 10 mg PO TID Label Comments: TAKE TWO TABLETS (10 MG)CBY MOUTH 3 TIMES A DAY WITH MEALS gabapentin 300 mg capsule 300 mg PO QHS Label Comments: take 1 capsule by mouth three times a day as directed lactulose 10 gram/15 mL solution 30 ml PO BID Label Comments: TAKE 30 ML BY MOUTH 2CTIMES A DAY furosemide [Lasix] 20 mg tablet 20 mg PO DAILY 30 Days Qty: 30 0RF spironolactone 25 mg tablet 25 mg PO DAILY 30 Days Qty: 30 0RF Referrals / Follow Up: Valerie Mullins MD [Primary Care Provider] - Within 2 Weeks Shon Talavera MD [Med Staff - Courtesy Staff] - Within 2 Weeks Disposition Disposition (needs filled in before D/C Order can be placed): Home, Self Care Charges/Coding Visit Charges Inpatient E&M: 60608 Disch Hosp
[2022-05-02 11:51] LABS: Bedside Glucose 265 mg/dL (74-106)
--- NOTE | 2022-05-04 13:59 | CASEMGMT ---
-Complex Brick Sorter to room during paracentesis. Advanced Care Directives information provided. Pt plans to review the information so LW/HCPOA can be completed during next visit. Radiology nurse calling PCP's office and Dr. Talavera's office to try to get pt in sooner than scheduled appt d/t high blood sugar levels. Pt knows to go to the ED if needed. Pt spoke to Navigator regarding getting an aide to assist at the home with housework. Complex Brick Sorter reminded pt that typically that is paid [id number]. However, pt can contact [facility] to see if she qualifies for services. Pt stated Social Security is still processing her application for disability. Pt stopped at the Social Security office this morning. Pt stated she is too weak to go further with the liver transplant process. They want her to drink protein and increase her weight first. Pt said someone from [facility] tried to call her but she misplaced the phone number. Navigator provided pt with the phone number again.
== END 2022-05-02 14:10 | disposition home or self-care (01) | DRG 420 ==
LOC: ED 04-30 02:12 → ICU 04-30 02:33 → PCU 05-01 01:15
PROVIDERS: Admitting Provider Hospitalist; Emergency Provider Emergency Medicine; PCP Internal Medicine; Visit Provider Student in an Organized Health Care Education/Training Program
DX: E11.65 Type 2 diabetes mellitus with hyperglycemia (principal); E43 Unspecified severe protein-calorie malnutrition; N17.9 Acute kidney failure, unspecified; E87.20 Acidosis, unspecified; K70.30 Alcoholic cirrhosis of liver without ascites; E86.0 Dehydration; D64.9 Anemia, unspecified; E78.5 Hyperlipidemia, unspecified; E87.1 Hypo-osmolality and hyponatremia; F17.210 Nicotine dependence, cigarettes, uncomplicated; E87.5 Hyperkalemia; I10 Essential (primary) hypertension; Z86.16 Personal history of COVID-19; R79.89 Other specified abnormal findings of blood chemistry; Z68.1 Body mass index [BMI] 19.9 or less, adult
CPT/HCPCS: 36415; 49083; 80048; 80053; 81001; 82009; 82803; 82962; 83036; 83735; 83930; 85025; 85027; 93005; 94640; 97802; 99251; 99284; 99406; J7030; 90686; A4216; G0463; J7799

== ENCOUNTER → 2022-05-04 | Outpatient (CLI) | payer MEDICAID, SELFPAY ==
--- NOTE | 2022-05-04 12:03 | US_ITS ---
PROCEDURE: Ultrasound guided paracentesis. DATE OF EXAMINATION: 05/04/2022.. INDICATION: Female, 46 years old. Ascites. PHYSICIAN: Denzel Quijano M.D. TECHNIQUE: The risks, benefits, and alternatives to the procedure were explained to the patient. The specific risks of bleeding, infection, and damage to bowel were detailed and accepted. Witnessed informed consent was obtained. The abdomen was ultrasonographically surveyed. An appropriate pocket of fluid was identified at the right lower quadrant. The skin were cleaned and prepped in the usual sterile fashion. Using ultrasound guidance, the peritoneal cavity was accessed with a 5-Spanish paracentesis needle/catheter system. The trocar was removed. A total of 1950 ml of annalisa-colored fluid were removed from the peritoneal cavity. The catheter was removed and a sterile dressing was applied. The procedure was well tolerated. US/Paracentesis with US IMPRESSION: Ultrasound guided paracentesis. Electronically Signed: Denzel Quijano MD at 13:28 EST ,
[2022-05-04] MEDS: Lidocaine 2% (10 ml mdv) 10 ML Vial INFILT (12:15)
[2022-05-04 12:31] VITALS: BP 104/57; PULSE 90; RESP 16; O2SAT 97
== END | disposition home or self-care (01) ==
PROVIDERS: PCP Internal Medicine; Referring Provider Internal Medicine Gastroenterology; Visit Provider Internal Medicine Gastroenterology
DX: K70.31 Alcoholic cirrhosis of liver with ascites (principal)
CPT/HCPCS: 49083

== ENCOUNTER → 2022-05-14 | Outpatient (CLI) | payer MEDICAID, SELFPAY ==
--- NOTE | 2022-05-14 12:28 | US_ITS ---
PROCEDURE: Ultrasound guided paracentesis. DATE OF EXAMINATION: 05/14/2022. INDICATION: Female, 46 years old. Ascites. PHYSICIAN: Denzel Quijano M.D. TECHNIQUE: The risks, benefits, and alternatives to the procedure were explained to the patient. The specific risks of bleeding, infection, and damage to bowel were detailed and accepted. Witnessed informed consent was obtained. The abdomen was ultrasonographically surveyed. An appropriate pocket of fluid was identified at the midline lower quadrant. The skin were cleaned and prepped in the usual sterile fashion. Using ultrasound guidance, the peritoneal cavity was accessed with a 5-Tajik paracentesis needle/catheter system. The trocar was removed. A total of 2000 ml of annalisa color fluid were removed from the peritoneal cavity. The catheter was removed and a sterile dressing was applied. The procedure was well tolerated. US/Paracentesis with US IMPRESSION: Ultrasound guided paracentesis. Electronically Signed: Denzel Quijano MD at 14:11 EST ,
[2022-05-14] MEDS: Lidocaine 1% (20 ml mdv) 20 ML Vial INFILT (13:31)
[2022-05-14 13:50] VITALS: BP 110/77; BP 111/67; BP 112/71; BP 116/71; PULSE 102; PULSE 92; PULSE 96; PULSE 98; RESP 16; O2SAT 100; O2SAT 97; O2SAT 98; O2SAT 99
== END | disposition home or self-care (01) ==
PROVIDERS: PCP Internal Medicine; Referring Provider Internal Medicine Gastroenterology; Visit Provider Internal Medicine Gastroenterology
DX: K70.31 Alcoholic cirrhosis of liver with ascites (principal)
CPT/HCPCS: 49083

== ENCOUNTER → 2022-05-18 | Outpatient (CLI) | payer MEDICAID, SELFPAY ==
--- NOTE | 2022-05-12 14:23 | CASEMGMT ---
Addendum entered by Kelly Rm 05/12/22 14:27: -TC to Dr. Mullins' office to advise the Palliative Care referral has been cancelled by [facility]. Spoke with nurse Atkinson to advise. -TC to Dr. Munson's office to advise the Palliative Care referral has been cancelled by [facility]. Spoke with Rachael to advise. Original Note: -Notification from Lilian with [facility]. Lilian has reached out to pt multiple times with no response. The agency will cancel the referral for Palliative Care at this time.
--- NOTE | 2022-05-18 10:46 | US_ITS ---
PROCEDURE: Ultrasound guided paracentesis. DATE OF EXAMINATION: 05/18/2022. INDICATION: Female, 46 years old. Ascites. PHYSICIAN: Denzel Quijano M.D. TECHNIQUE: The risks, benefits, and alternatives to the procedure were explained to the patient. The specific risks of bleeding, infection, and damage to bowel were detailed and accepted. Witnessed informed consent was obtained. The abdomen was ultrasonographically surveyed. An appropriate pocket of fluid was identified in the midline. The skin were cleaned and prepped in the usual sterile fashion. Using ultrasound guidance, the peritoneal cavity was accessed with a 5-Occitan paracentesis needle/catheter system. The trocar was removed. A total of 1800 ml of annalisa-colored fluid were removed from the peritoneal cavity. The catheter was removed and a sterile dressing was applied. The procedure was well tolerated. US/Paracentesis with US IMPRESSION: Ultrasound guided paracentesis. Electronically Signed: Denzel Quijano MD at 11:35 EST ,
[2022-05-18 11:09] VITALS: BP 106/65; BP 111/62; PULSE 101; PULSE 102; RESP 16; TEMP 36.6; O2SAT 95; O2SAT 97
[2022-05-18] MEDS: Lidocaine 1% (20 ml mdv) 20 ML Vial INFILT (11:16)
== END | disposition home or self-care (01) ==
LOC: US 10:38
PROVIDERS: PCP Internal Medicine; Referring Provider Internal Medicine Gastroenterology; Visit Provider Internal Medicine Gastroenterology
DX: K74.60 Unspecified cirrhosis of liver (principal); R18.8 Other ascites
CPT/HCPCS: 49083

== ENCOUNTER 2022-05-25 17:30 | Outpatient (RCR) | payer MEDICAID, SELFPAY ==
--- NOTE | 2022-04-19 17:23 | HP.PTEVAL_ITS ---
Patient's Visit Information DAVID TATE is a 46 year old F referred to Physical Therapy by Dr. Constantino Friend, with a diagnosis of Debility. Date of Evaluation: 04/19/22 Physical Therapist: Flora Adam DPT - Visit Plan Frequency: 2-3x /Week Duration: 4 Weeks Plan: Focus on LE and core strength/stabilization and proprioception- Functional Mobility. HEP Given: kitchen sink ex: HR/TR, Hip flexion/extn/abd, Mini Squat - Subjective Patient reports that she is on a pre-transplant list for liver- she is just very weak- this has been going on for over a year. She feels that its progressively getting worse. Lives by herself- she has shared parenting for kids that are 16 and 17. She lives in a ranch- and the only stairs are to go to the basement with 2 stairs to enter. Laundry is in the basement- with a hand rail. Fully I with all ADL's. She has lost about 40 lbs in a short amount of time- she is trying to gain weight but its not working. She doesn't have any pain. The last time she fell was today- she falls daily. She uses the cane in the community but not the house. She has not used a walker but she has a rollator. She was always really active and athletic. 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 So she is only sitting 50% of the day. 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 She has applied for disability so she is waiting for that. She has no gym equipment at home or access to workout equipment. Every Tuesday she goes to the hospital for paracentesis- takes about 45 min. PMHx/Meds: no changes since Gastro 04/07/22. - Objective Posture: FH, RS-can correct with verbal cues but does not maintain- pt is very thin. Gait: antalgic- quad cane- wide JORDI- decreased costa and step length bilateral. HR: able with UE A. TR: diminished by 50% standing- full ROM in sitting. ROM: WFL in all planes. Strength: Core: poor, Hip: 4-/5, Knee: 4+/5, Ankle: 4+/5. Transfers: sit to stand requires bilateral UE. Flex: HS: moderate, Gastroc: moderate. Stairs: asc/desc 8 recip with 2 HR- asc uses UE for propulsion forwards- descent is uncontrolled- SBA for safety - Balance/Special Test Scores Functional Gait Assessment Score: 10 % Disability: 66.6700 Lower Extremity Functional Score: 15 - Goals Goal 1:: Patient will be I with HEP and progression Goal Time Frame: 4-6 Weeks Goal 2:: Patient will asc/desc 8 recip with 1 HR Goal Time Frame: 4-6 Weeks Goal 3:: Patient will ambulate >300 feet with a normalized gait pattern and LRD Goal Time Frame: 4-6 Weeks Goal 4:: Patient will sit to stand x10 without UE A Goal Time Frame: 4-6 Weeks Goal 5:: Patient will improve her FGA score by 5 points Goal Time Frame: 4-6 Weeks Goal 6:: Patient will report 80% improvement Goal Time Frame: 4-6 Weeks - Rehabilitation Potential Physical Therapy Diagnosis: Patient presents with hypomobility- she has decreased LE and core strength/stabilization, proprioception, flex and muscular endurance leading to poor posture, poor balance and decreased ability to perform ADlL's Rehabilitation Potential: Fair - Anticipated Interventions Patient/Client Instruction: Educate patient on: Benefits of Fitness Program Therapeutic Exercise to Include: Strength training, Endurance training, Balance training, Coordination, Agility training, Body mechanics, Postural training, Flexibilty training, Gait and locomotor training, Neuromotor development, Dynamic Lumbar Stabilization, Scapular Strength/Stabilization For the Purpose of:: To improve muscle performance and motor function Thank you for the opportunity to evaluate your patient. For Medicare and Medicare HMO plans, please review the plan of care and approve it. It will need to be FAXED BACK to us at [phone] for Medicare purposes. For Medicare only, by signing this I certify the plan of care. Please let me know if there are questions or concerns regarding this plan of care. Physician Signature: Date:
--- NOTE | 2022-04-19 17:51 | HP.OTEVAL ---
Patient's Visit Information DAVID TATE is a 46 year old F, referred to Occupational Therapy by Dr. Constantino Friend, DO, with a diagnosis of malaise, alcoholic cirrhosis of the liver with ascites. Date of Evaluation: 04/19/22 Occupational Therapist: Corina Chavarria, SHARON/Renee, CHT - Subjective This 46 year old female was seen for OT eval with dx of Alcoholic Cirrhosis of the liver with ascites, malaise - pt states she started having issue over a year ago-pt states she has lost 40# over the four months. pt states she struggles with weakness and has struggled with her strength. pt states she get periocintisis every tues. pt states she is on pre transplant waiting list-. pt has 22 year old 17 year old and 16 year old- pt states she has shared parenting. 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 pt would like to gain wt and get strength back to become more ind. with ADls and IADLs. - ADLs Fasteners: Snaps Kitchen: Open jars, Open bottle caps, Lift gallon of milk, Take dish out of oven Household: Vacuum, Sweep/mop, Wash windows - ROM ROM Comments: pt demo ROM WNL - Strength Shoulder: right 7# left 4# Elbow: triceps right 7# left 8# biceps 6# left 7# Steel Detailer: right 20# left 15# Lateral Pinch: right 2# left unable Tripod Pinch: right unable left trace Strength Comments: pt demo with decline in functional strength - Sensation Sensation Comments: denies in hands - Quick DASH-Disab of Arm,Shoulder& Hand Quick DASH Score: 45.0000 - Rehabilitation General Assessment: pt demo with generalized weakness limiting her with her abilities to perform ADLs and IADLS. Pt would benefit from skilled OT services 3x week for 4 weeks to ed. pt on strengthening HEP, energy conservation and safety precautions. Today therapist initiated PRE with orange t-band HEP for shoulder/biceps/triceps etc. pt demo understanding and agree to POC. Rehabilitation Potential: Good - Anticipated Interventions Strengthening, Education re assistive Equipment, Home Program - Visit Plan Frequency: 2-3x /Week Duration: 4 Weeks General Plan: PRE get good HEP with bands transition to exercise free wts and gym eq. TEXT: Thank you for the opportunity to evaluate your patient. For Medicare and Medicare HMO plans, please review the plan of care and approve it. It will need to be FAXED BACK to us at [phone] for Medicare purposes. Please let me know if there are questions or concerns regarding this plan of care. Physician Signature: Date:
--- NOTE | 2022-04-19 17:55 | HP.OTEVAL_ITS ---
Patient's Visit Information DAVID TATE is a 46 year old F, referred to Occupational Therapy by Dr. Constantino Friend, DO, with a diagnosis of malaise, alcoholic cirrhosis of the liver with ascites. Date of Evaluation: 04/19/22 Occupational Therapist: Corina Chavarria, SHARON/Renee, CHT - Subjective This 46 year old female was seen for OT eval with dx of Alcoholic Cirrhosis of the liver with ascites, malaise - pt states she started having issue over a year ago-pt states she has lost 40# over the four months. pt states she struggles with weakness and has struggled with her strength. pt states she get periocintisis every tues. pt states she is on pre transplant waiting list-. pt has 22 year old 17 year old and 16 year old- pt states she has shared parenting. 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 pt would like to gain wt and get strength back to become more ind. with ADls and IADLs. - ADLs Fasteners: Snaps Kitchen: Open jars, Open bottle caps, Lift gallon of milk, Take dish out of oven Household: Vacuum, Sweep/mop, Wash windows - ROM ROM Comments: pt demo ROM WNL - Strength Shoulder: right 7# left 4# Elbow: triceps right 7# left 8# biceps 6# left 7# Relationship Banker: right 20# left 15# Lateral Pinch: right 2# left unable Tripod Pinch: right unable left trace Strength Comments: pt demo with decline in functional strength - Sensation Sensation Comments: denies in hands - Quick DASH-Disab of Arm,Shoulder& Hand Quick DASH Score: 45.0000 - Goals Goal:: pt will test with fit2 a peak force of 25# or greater indicating increase in UB strength by dc. pt will test bilateral inside sales engineer strength at 35# or greater to increase ind. with ADLs by d/c. pt will demo the ability to lift 20# from knee to waist level with good safety to increase ind with ADLs by d/c. Goal:: pt will report IND with opening jar lids IND by d.c. pt will demo understanding of using ad. eq. ie shower chair to increase safety with self care by end of 2nd session. - Rehabilitation General Assessment: pt demo with generalized weakness limiting her with her abilities to perform ADLs and IADLS. Pt would benefit from skilled OT services 3x week for 4 weeks to ed. pt on strengthening HEP, energy conservation and safety precautions. Today therapist initiated PRE with orange t-band HEP for shoulder/biceps/triceps etc. pt demo understanding and agree to POC. Rehabilitation Potential: Good - Anticipated Interventions Strengthening, Joint Protection/Energy Conservation, Education re assistive Equipment, Home Program, Other Other Interventions: health and wellness program - Visit Plan Frequency: 2-3x /Week Duration: 4 Weeks General Plan: PRE get good HEP with bands transition to exercise free wts and gym eq. TEXT: Thank you for the opportunity to evaluate your patient. For Medicare and Medicare HMO plans, please review the plan of care and approve it. It will need to be FAXED BACK to us at [phone] for Medicare purposes. Please let me know if there are questions or concerns regarding this plan of care. Physician Signature: Date:
--- NOTE | 2022-04-23 15:45 | CASEMGMT ---
Complex Agronomy Advisor attempted to contact pt regarding a possible Palliative Care referral. Navigator planned to speak with pt at last paracentesis procedure. However, pt declined d/t having an appointment and preparing for Thanksgiving. Pt did not answer the call. Navigator will attempt to speak with pt at next paracentesis procedure appointment.
--- NOTE | 2022-09-15 16:00 | HP.OT.NRP ---
DAVID TATE was seen in my office for initial evaluation on 04/19/22. The following Plan of Care was established for this patient: Initial Frequency: 2-3x /Week Initial Duration: 4 Weeks Anticipated Interventions: Strengthening, Joint Protection/Energy Conservation, Education re assistive Equipment, Home Program, Other Other Interventions: health and wellness program This patient was last seen in our office 05/25/22. Pertinent comments regarding their Occupational therapy will appear below: pt was seen for OT due to debility. Pt cancelled her last scheduled apt. due to time lapse in services pt d/c. At this point I will be discontinuing this patient from occupational therapy. I would be happy to see this patient again in the future if found appropriate by the physician. Thank you! Corina Chavarria, OTR/L, CHT
== END 2022-05-25 19:00 | disposition home or self-care (01) ==
LOC: OT 17:30
PROVIDERS: PCP Internal Medicine; Referring Provider Internal Medicine Gastroenterology; Visit Provider Internal Medicine Gastroenterology
DX: R53.81 Other malaise (principal); K70.31 Alcoholic cirrhosis of liver with ascites
CPT/HCPCS: 97110; 97162; 97166

== ENCOUNTER → 2022-05-25 | Outpatient (CLI) | payer MEDICAID, SELFPAY ==
--- NOTE | 2022-05-25 11:57 | US_ITS ---
PROCEDURE: Ultrasound guided paracentesis. DATE OF EXAMINATION: 05/25/2022. INDICATION: Female, 46 years old. Ascites. PHYSICIAN: Gonzalez Zhou D.O. TECHNIQUE: The risks, benefits, and alternatives to the procedure were explained to the patient. The specific risks of bleeding, infection, and damage to bowel were detailed and accepted. Witnessed informed consent was obtained. The abdomen was ultrasonographically surveyed. An appropriate pocket of fluid was identified at the right lower quadrant. The skin were cleaned and prepped in the usual sterile fashion. Using ultrasound guidance, the peritoneal cavity was accessed with a 5-Maltese paracentesis needle/catheter system. The trocar was removed. A total of 3400 ml of clear straw-colored ascites fluid were removed from the peritoneal cavity. The catheter was removed and a sterile dressing was applied. The procedure was well tolerated. The patient was discharged in stable condition. US/Paracentesis with US IMPRESSION: Ultrasound guided therapeutic paracentesis. Electronically Signed: Gonzalez Zhou, at 13:39 EST ,
[2022-05-25 12:09] VITALS: BP 109/64; BP 120/72; BP 125/69; PULSE 105; PULSE 107; PULSE 110; RESP 16; TEMP 36.8; O2SAT 95; O2SAT 96; O2SAT 97
[2022-05-25] MEDS: Lidocaine 1% (20 ml mdv) 20 ML Vial INFILT (12:15)
== END | disposition home or self-care (01) ==
PROVIDERS: PCP Internal Medicine; Referring Provider Internal Medicine Gastroenterology; Visit Provider Internal Medicine Gastroenterology
DX: K70.31 Alcoholic cirrhosis of liver with ascites (principal)
CPT/HCPCS: 49083

== ENCOUNTER → 2022-06-01 | Outpatient (CLI) | payer MEDICAID, SELFPAY ==
--- NOTE | 2022-06-01 12:15 | US_ITS ---
PROCEDURE: Ultrasound guided paracentesis. DATE OF EXAMINATION: 2022. INDICATION: Female, 46 years old. Ascites. PHYSICIAN: Denzel Quijano M.D. TECHNIQUE: The risks, benefits, and alternatives to the procedure were explained to the patient. The specific risks of bleeding, infection, and damage to bowel were detailed and accepted. Witnessed informed consent was obtained. The abdomen was ultrasonographically surveyed. An appropriate pocket of fluid was identified at the left lower quadrant. The skin were cleaned and prepped in the usual sterile fashion. Using ultrasound guidance, the peritoneal cavity was accessed with a 5-English paracentesis needle/catheter system. The trocar was removed. A total of 2700 ml of annalisa-colored fluid were removed from the peritoneal cavity. The catheter was removed and a sterile dressing was applied. The procedure was well tolerated. US/Paracentesis with US IMPRESSION: Ultrasound guided paracentesis. Electronically Signed: Denzel Quijano MD at 13:29 EST ,
[2022-06-01 12:25] VITALS: BP 114/56; BP 122/63; BP 126/82; PULSE 100; PULSE 103; PULSE 99; RESP 18; TEMP 36.6; O2SAT 100; O2SAT 99
[2022-06-01] MEDS: Lidocaine 1% (20 ml mdv) 20 ML Vial INFILT (12:35)
[2022-06-01 12:59] VITALS: BP 114/56; PULSE 96; RESP 18; O2SAT 99
== END | disposition home or self-care (01) ==
PROVIDERS: PCP Internal Medicine; Referring Provider Internal Medicine Gastroenterology; Visit Provider Internal Medicine Gastroenterology
DX: K70.31 Alcoholic cirrhosis of liver with ascites (principal); R18.8 Other ascites
CPT/HCPCS: 49083

== ENCOUNTER → 2022-06-08 | Outpatient (CLI) | payer MEDICAID, SELFPAY ==
--- NOTE | 2022-06-08 10:34 | US_ITS ---
PROCEDURE: Ultrasound guided paracentesis. DATE OF EXAMINATION: 06/08/2022. INDICATION: Female, 46 years old. Ascites. PHYSICIAN: Denzel Quijano M.D. TECHNIQUE: The risks, benefits, and alternatives to the procedure were explained to the patient. The specific risks of bleeding, infection, and damage to bowel were detailed and accepted. Witnessed informed consent was obtained. The abdomen was ultrasonographically surveyed. An appropriate pocket of fluid was identified at the midline lower quadrant. The skin were cleaned and prepped in the usual sterile fashion. Using ultrasound guidance, the peritoneal cavity was accessed with a 5-Marshallese paracentesis needle/catheter system. The trocar was removed. A total of 2300 ml of annalisa-colored fluid were removed from the peritoneal cavity. The catheter was removed and a sterile dressing was applied. The procedure was well tolerated. US/Paracentesis with US IMPRESSION: Ultrasound guided paracentesis. Electronically Signed: Denzel Quijano MD at 12:42 EST ,
[2022-06-08] MEDS: Lidocaine 2% (5ml sdv) 5 ML VIAL.MPF INFILT (10:52)
[2022-06-08 11:11] VITALS: BP 113/75; BP 114/71; BP 117/72; PULSE 100; PULSE 101; PULSE 97; RESP 14; RESP 16; TEMP 37.1; O2SAT 96; O2SAT 97
== END | disposition home or self-care (01) ==
PROVIDERS: PCP Internal Medicine; Referring Provider Internal Medicine Gastroenterology; Visit Provider Internal Medicine Gastroenterology
DX: K70.31 Alcoholic cirrhosis of liver with ascites (principal)
CPT/HCPCS: 49083

== ENCOUNTER → 2022-06-15 | Outpatient (CLI) | payer MEDICAID, SELFPAY ==
--- NOTE | 2022-06-15 10:42 | US_ITS ---
PROCEDURE: Ultrasound guided paracentesis. DATE OF EXAMINATION: 06/15/2022. INDICATION: Female, 46 years old. Ascites. PHYSICIAN: Denzel Quijano M.D. TECHNIQUE: The risks, benefits, and alternatives to the procedure were explained to the patient. The specific risks of bleeding, infection, and damage to bowel were detailed and accepted. Witnessed informed consent was obtained. The abdomen was ultrasonographically surveyed. An appropriate pocket of fluid was identified at the right lower quadrant. The skin were cleaned and prepped in the usual sterile fashion. Using ultrasound guidance, the peritoneal cavity was accessed with a 5-East Timorese paracentesis needle/catheter system. The trocar was removed. A total of 1950 ml of annalisa-colored fluid were removed from the peritoneal cavity. The catheter was removed and a sterile dressing was applied. The procedure was well tolerated. US/Paracentesis with US IMPRESSION: Ultrasound guided paracentesis. Electronically Signed: Denzel Quijano MD at 12:17 EST ,
[2022-06-15 10:55] VITALS: BP 108/63; BP 111/66; BP 116/70; PULSE 106; PULSE 107; PULSE 111; RESP 14; TEMP 36.8; O2SAT 97; O2SAT 99
[2022-06-15] MEDS: Lidocaine 1% (30 ml sdv) 30 ML Vial INFILT (11:00)
== END | disposition home or self-care (01) ==
PROVIDERS: PCP Internal Medicine; Referring Provider Internal Medicine Gastroenterology; Visit Provider Internal Medicine Gastroenterology
DX: R18.8 Other ascites (principal)
CPT/HCPCS: 49083

== ENCOUNTER → 2022-06-22 | Outpatient (CLI) | payer MEDICAID, SELFPAY ==
--- NOTE | 2022-06-22 10:30 | US_ITS ---
PROCEDURE: Ultrasound guided paracentesis. DATE OF EXAMINATION: 06/22/2022. INDICATION: Female, 46 years old. Ascites. PHYSICIAN: Denzel Quijano M.D. TECHNIQUE: The risks, benefits, and alternatives to the procedure were explained to the patient. The specific risks of bleeding, infection, and damage to bowel were detailed and accepted. Witnessed informed consent was obtained. The abdomen was ultrasonographically surveyed. An appropriate pocket of fluid was identified at the right lower quadrant. The skin were cleaned and prepped in the usual sterile fashion. Using ultrasound guidance, the peritoneal cavity was accessed with a 5-Moroccan paracentesis needle/catheter system. The trocar was removed. A total of 2500 ml of annalisa-colored fluid were removed from the peritoneal cavity. The catheter was removed and a sterile dressing was applied. The procedure was well tolerated. US/Paracentesis with US IMPRESSION: Ultrasound guided paracentesis. Electronically Signed: Denzel Quijano MD at 12:02 EST ,
[2022-06-22 10:54] VITALS: BP 106/77; BP 126/87; BP 129/80; PULSE 103; PULSE 109; PULSE 112; RESP 14; RESP 16; TEMP 37; O2SAT 100; O2SAT 96
[2022-06-22] MEDS: Lidocaine 2% (20 ml mdv) 20 ML Vial INFILT (10:56)
[2022-06-22 12:11] LABS: Absolute Lymphocyte Count 1.35 X10^3/uL (0.83-4.51); Absolute Neutrophil Count 6.5 X10^3/uL (2.0-7.7); Basophil# 0.05 X10^3/uL; Basophil% 0.6 % (0-1); Eosinophil# 0.11 X10^3/uL; Eosinophils% 1.2 % (0-5); Hemoglobin 12.4 g/dL (12.0-15.0); Lymphocyte # 1.35 X10^3/ul (0.83-4.51); Lymphocyte % 15.1 % (19-41); Mean Corp Hgb Conc 32.6 g/dL (32-36); Mean Corpuscular Hgb 32.2 pg (27.0-32.0); Mean Corpuscular Volume 98.7 fL (81-99); Mean Platelet Vol. 9.1 fl (6.2-12.0); Monocyte# 0.86 X10^3/uL; Monocyte% 9.6 % (0-10); NRBC Flagged by Analyzer 0 % (0-5); Neutrophil % 72.8 % (47-70); Platelet Count 288 K/mm3 (150-450); RBC Distribution Width SD 54.1 fl (35.1-43.9); Red Blood Count 3.85 M/mm3 (4.2-5.4); White Blood Count 8.9 K/mm3 (4.4-11.0)
[2022-06-22 12:34] LABS: International Normalized Ratio 1.4; Prothrombin Time (Protime)PT. 16.5 SECONDS (11.7-14.9)
[2022-06-22 13:02] LABS: ALB/GLOB Ratio 0.6 RATIO (0.9-2.4); AST(SGOT) 14 U/L (15-37); Alanine Aminotransfer ALT/SGPT 10 U/L (13-56); Albumin, Serum 2.3 g/dL (3.2-5.0); Alkaline Phosphatase 117 U/L (45-117); Anion Gap 9 (5-15); BUN 4 mg/dL (7-18); BUN/Creat Ratio 6.3 RATIO (10-20); Calcium,Total 8.3 mg/dL (8.5-10.1); Chloride 100 mmol/L (98-107); Creatinine, Serum 0.64 mg/dL (0.55-1.02); EST Glomerular Filtration Rate 106 mL/min (>60); Est Glom Filt Rate - Afr Amer 129 mL/min (>60); Globulin 3.6 g/dL (2.2-4.2); Glucose 165 mg/dL (74-106); Potassium 3.6 mmol/L (3.5-5.1); Protein, Total 5.9 g/dL (6.4-8.2); Sodium Level 139 mmol/L (136-145)
== END | disposition home or self-care (01) ==
PROVIDERS: PCP Internal Medicine; Referring Provider Internal Medicine Gastroenterology; Visit Provider Internal Medicine Gastroenterology
DX: K70.31 Alcoholic cirrhosis of liver with ascites (principal)
CPT/HCPCS: 49083; 36415; 80053; 82140; 85025; 85610

== ENCOUNTER → 2022-06-29 | Outpatient (CLI) | payer MEDICAID, SELFPAY ==
--- NOTE | 2022-06-29 10:37 | US_ITS ---
PROCEDURE: Ultrasound guided paracentesis. DATE OF EXAMINATION: 06/29/2022. INDICATION: Female, 46 years old. Ascites. PHYSICIAN: Denzel Quijano M.D. TECHNIQUE: The risks, benefits, and alternatives to the procedure were explained to the patient. The specific risks of bleeding, infection, and damage to bowel were detailed and accepted. Witnessed informed consent was obtained. The abdomen was ultrasonographically surveyed. An appropriate pocket of fluid was identified at the midline lower quadrant. The skin were cleaned and prepped in the usual sterile fashion. Using ultrasound guidance, the peritoneal cavity was accessed with a 5-Belizean paracentesis needle/catheter system. The trocar was removed. A total of 2050 ml of annalisa-colored fluid were removed from the peritoneal cavity. The catheter was removed and a sterile dressing was applied. The procedure was well tolerated. US/Paracentesis with US IMPRESSION: Ultrasound guided paracentesis. Electronically Signed: Denzel Quijano MD at 12:25 EST ,
[2022-06-29 10:49] VITALS: BP 104/57; BP 111/61; BP 113/64; BP 120/61; PULSE 89; PULSE 90; PULSE 92; PULSE 94; RESP 16; TEMP 36.4; O2SAT 96; O2SAT 97; O2SAT 98
[2022-06-29] MEDS: Lidocaine 2% (20 ml mdv) 20 ML Vial INFILT (10:59)
== END | disposition home or self-care (01) ==
PROVIDERS: PCP Internal Medicine; Referring Provider Internal Medicine Gastroenterology; Visit Provider Internal Medicine Gastroenterology
DX: K70.31 Alcoholic cirrhosis of liver with ascites (principal)
CPT/HCPCS: 49083

== ENCOUNTER → 2022-07-06 | Outpatient (CLI) | payer MEDICAID, SELFPAY ==
--- NOTE | 2022-07-06 10:41 | US_ITS ---
STUDY: ABDOMINAL ULTRASOUND - 4 quadrants. REASON FOR VISIT: Female, 46 years old ASCITES TECHNIQUE: Ultrasound evaluation of the 4 was performed with real-time and static santo-scale imaging. TECHNICAL QUALITY: Adequate. COMPARISON: None. FINDINGS: Assessment of the 4 quadrants was obtained. Small amount of pelvic fluid. Not enough fluid for safe paracentesis. US/Abdomen Limited IMPRESSION: Not enough fluid for safe paracentesis. Electronically Signed: Denzel Quijano MD at 9:08 EST ,
== END | disposition home or self-care (01) ==
PROVIDERS: PCP Internal Medicine; Referring Provider Internal Medicine Gastroenterology; Visit Provider Internal Medicine Gastroenterology
DX: K70.31 Alcoholic cirrhosis of liver with ascites (principal)
CPT/HCPCS: 76705

== ENCOUNTER → 2022-07-13 | Outpatient (CLI) | payer MEDICAID, SELFPAY ==
--- NOTE | 2022-07-13 10:36 | US_ITS ---
STUDY: ABDOMINAL ULTRASOUND - 4 quadrants. REASON FOR VISIT: Female, 46 years old ASCITES TECHNIQUE: Ultrasound evaluation of the 4 quadrants was performed with real-time and static santo-scale imaging. TECHNICAL QUALITY: Adequate. COMPARISON: None. FINDINGS: There is no evidence of ascites at this time. US/Abdomen Limited IMPRESSION: No evidence of ascites at this time. Electronically Signed: Denzel Quijano MD at 12:02 EST ,
== END | disposition home or self-care (01) ==
LOC: US 10:35
PROVIDERS: PCP Internal Medicine; Visit Provider Internal Medicine Gastroenterology
DX: K70.31 Alcoholic cirrhosis of liver with ascites (principal)
CPT/HCPCS: 76705

== ENCOUNTER → 2022-07-20 | Outpatient (CLI) | payer MEDICAID, SELFPAY ==
--- NOTE | 2022-07-20 10:21 | US_ITS ---
STUDY: ABDOMINAL ULTRASOUND - ascites survey. REASON FOR VISIT: Female, 46 years old ASCITES TECHNIQUE: Ultrasound evaluation of the 4 quadrants was performed with real-time and static santo-scale imaging. TECHNICAL QUALITY: Adequate. COMPARISON: None. FINDINGS: No evidence of ascites at this time. US/Abdomen Limited IMPRESSION: No evidence of ascites at this time. Electronically Signed: Denzel Quijano MD at 14:59 EST ,
== END | disposition home or self-care (01) ==
PROVIDERS: PCP Internal Medicine; Visit Provider Internal Medicine Gastroenterology
DX: K70.31 Alcoholic cirrhosis of liver with ascites (principal)
CPT/HCPCS: 76705

== ENCOUNTER 2022-08-02 15:53 | Emergency (ER) | payer MEDICAID, SELFPAY ==
[2022-08-02 15:54] VITALS: BP 112/90; PULSE 106; RESP 16; TEMP 36.6; O2SAT 98; BMI 17.1
--- NOTE | 2022-08-02 16:04 | EX.ED.DYSGE1 ---
HPI History of Present Illness Chief Complaint: General Illness Detail of Chief Complaint: Dehydration Informant: patient Narrative Narrative: Patient presents secondary to concerns for dehydration. She was at her endocrinology visit today and her heart rate was noted to be 121. They recommend she call her GI doctor as the patient is on lactulose. The GI office recommended she come to the emergency room due to concern for dehydration. Patient states otherwise she has no significant complaints. She has had some recent vomiting where she vomits once in the morning and then is okay the rest of the day. She has chronic diarrhea given her lactulose. She states she has been more fatigued and tired recently. No fever or chills. [facility] Medical History Alcoholic cirrhosis of liver with ascites Alcoholism Anxiety Asthma Breast implant status Chronic diarrhea Closed head injury COVID-19 Diabetes Fatty liver Gastritis and duodenitis H. pylori infection History of alcohol abuse HLD (hyperlipidemia) HTN (hypertension) Hypertension Malnutrition Migraines Nicotine abuse Pancreatitis Post-menopausal Recurrent acute pancreatitis SBP (spontaneous bacterial peritonitis) Smoker Transaminitis Home Medications duloxetine 60 mg capsule,delayed release 60 mg PO DAILY depression 12/10/21 [History Last Taken 03/10/22] ursodiol 300 mg capsule 300 mg PO BID gallbladder 12/10/21 [History Last Taken 03/10/22] ondansetron 4 mg disintegrating tablet 4 mg PO Q8H PRN nausea and vomiting #14 tabs 02/09/22 [Rx Last Taken 3 Days Ago ~03/07/22] famotidine 20 mg tablet 20 mg PO BID #60 tabs 02/20/22 [Rx Last Taken 03/09/22] rifaximin 550 mg tablet (Xifaxan) 550 mg PO BID #60 tabs 02/20/22 [Rx Last Taken 03/10/22] gabapentin 300 mg capsule 300 mg PO QHS nerve pain 03/10/22 [History Last Taken 03/09/22] midodrine 5 mg tablet 10 mg PO TID blood pressure 03/10/22 [History Last Taken 03/10/22] furosemide 20 mg tablet (Lasix) 20 mg PO DAILY 30 days #30 tabs 03/12/22 [Rx Last Taken Unknown] spironolactone 25 mg tablet 25 mg PO DAILY 30 days #30 tabs 03/12/22 [Rx Last Taken Unknown] insulin glargine 100 unit/mL (3 mL) subcutaneous pen (Lantus Solostar U-100 Insulin) 15 unit (0.15 mL) subcut DAILY #15 mL 05/02/22 [Rx Last Taken Unknown] lancets #100 ea 05/02/22 [Rx Last Taken Unknown] needle (disp) #500 ea 05/02/22 [Rx Last Taken Unknown] DOXIPIN PO 08/02/22 [History Last Taken Unknown] alprazolam 0.25 mg tablet 0.25 mg PO BID 08/02/22 [History Last Taken Unknown] lactulose 10 gram/15 mL oral solution 30 ml PO BID cirrhosis 08/02/22 [History Last Taken Unknown] pantoprazole 40 mg tablet,delayed release 40 mg PO DAILY 08/02/22 [History Last Taken Unknown] Allergy/AdvReac Type Severity Reaction Status Date / Time azithromycin [From Zithromax] AdvReac Diarrhea Verified 08/02/22 15:55 codeine AdvReac Nausea Verified 08/02/22 15:55 promethazine [From Phenergan] AdvReac Vomiting Verified 08/02/22 15:55 Family History Father Cancer Lung CA with tobacco use history. Heart disease Mother Cancer Hx breast CA. Diabetes Hypertension Other Alcoholic cirrhosis of liver with ascites Breast cancer High cholesterol Liver disease Osteoporosis Skin cancer Surgical History H/O breast augmentation H/O: knee surgery Previous section S/P tonsillectomy and adenoidectomy Social History housing: other details: Lives at home, her 15, 16 year old children live with her. 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 substance use type: does not use what type of physical activity do you participate in: none ROS ROS ED Constitutional Constitutional ED: Denies chills or fever(s) Eyes Eyes: Denies change in vision or discharge from eye(s) ENT ENT ED: Denies discharge from eye(s), rhinorrhea or sore throat Cardiovascular Cardiovascular: Denies chest pain or palpitations Respiratory/Chest Respiratory/Chest: Denies cough or dyspnea Gastrointestinal Gastrointestinal: Reports diarrhea, nausea and vomiting; Denies abdominal pain Genitourinary Genitourinary ED: Denies difficulty urinating or dysuria Musculoskeletal Musculoskeletal: Denies back pain or extremity pain Integumentary Denies Abrasions or rash Neurologic Neurologic: Denies headache(s) or weakness Psychiatric Psychiatric: Denies anxiety or depression Allergic/Immunologic Allergic/Immunologic ED: Denies lip swelling or urticaria EXAM Physical Exam Const Vital Signs: 08/02/22 15:54 08/02/22 16:14 Temperature 97.9 F Temperature Source Temporal Pulse Rate 106 H Respiratory Rate 16 Respiratory Effort Normal Non-Labored Respiratory Pattern Normal Blood Pressure 112/90 H Blood Pressure Mean 97 Pulse Ox 98 Oxygen Delivery Method Room Air Positive well nourished and well developed General Appearance ED: well developed HEENT Reports normocephalic and head/scalp atraumatic Eyes PERRL and EOMs intact bilaterally Neck supple Chest Wall inspection of chest normal and palpation of chest normal Resp normal respiratory effort and clear to auscultation bilaterally Cardio regular rhythm Rate: tachycardic GI non-tender Auscultation: hypoactive bowel sounds Palpation: soft Extremity normal to inspection Neuro oriented x3 and no sensory deficits noted Sensorium / Orientation: alert Motor Exam: strength 5/5 throughout Psych mental status grossly normal Skin no rashes or lesions noted MDM MDM MDM Narrative Medical decision making narrative: Patient given a liter IV fluid due to concern for dehydration. Lab work obtained to evaluate for anemia and electrolyte status. Lab Data Attestation: I reviewed the patient's lab results. Labs: Laboratory Results - last 24 hr 08/02/22 08/02/22 16:12 16:12 WBC 8.0 RBC 4.15 L Hgb 13.1 Hct 39.2 MCV 94.5 MCH 31.6 MCHC 33.4 RDW Std Deviation 43.3 RDW Coeff of Teressa 12.4 Plt Count 255 MPV 9.9 Immature Gran % (Auto) 0.200 Neut % (Auto) 60.4 Lymph % (Auto) 26.6 [place] % (Auto) 6.2 Eos % (Auto) 6.2 H Baso % (Auto) 0.4 Absolute Neuts (auto) 4.9 Absolute Lymphs (auto) 2.14 Nucleated RBC % 0 Sodium 136 Potassium 3.7 Chloride 98 Carbon Dioxide 30.0 Anion Gap 8 BUN 17 Creatinine 1.04 H Estim Creat Clear Calc 50.76 Est GFR (MDRD) Af Amer 73 Est GFR (MDRD) Non-Af 60 BUN/Creatinine Ratio 16.3 Glucose 201 H Calcium 10.7 H Total Bilirubin 0.50 AST 12 L ALT 13 Alkaline Phosphatase 70 Total Protein 7.6 Albumin 3.7 Globulin 3.9 Albumin/Globulin Ratio 0.9 Treatment and Re-Evaluation Vital Sign Attestation:: CBC reveals normal white count and hemoglobin level. Chemistry studies reveal a BUN of 17 and a creatinine of 1.04. It appears her baseline creatinine is around 0.6. On repeat evaluation patient resting comfortably. She will be discharged home to continue her current medication regimen. Discharge Plan Triage Chief Complaint: General Illness ED Provider: Edith Mccloud Dx/Rx/DC Orders Clinical Impression: Dehydration Instructions: ED Dehydration (Adult) Prescriptions: No Action alprazolam 0.25 mg tablet 0.25 mg PO BID pantoprazole 40 mg tablet,delayed release (DR/EC) 40 mg PO DAILY DOXIPIN PO ursodiol 300 mg capsule 300 mg PO BID Label Comments: take 1 capsule by mouth twice a day duloxetine 60 mg capsule,delayed release(DR/EC) 60 mg PO DAILY Label Comments: take 1 capsule by mouth once daily ondansetron 4 mg tablet,disintegrating 4 mg PO Q8H PRN (Reason: nausea and vomiting) Qty: 14 0RF famotidine 20 mg Tablet 20 mg PO BID Qty: 60 1RF Xifaxan 550 mg Tablet 550 mg PO BID Qty: 60 1RF midodrine 5 mg tablet 10 mg PO TID Label Comments: TAKE TWO TABLETS (10 MG)CBY MOUTH 3 TIMES A DAY WITH MEALS gabapentin 300 mg capsule 300 mg PO QHS Label Comments: take 1 capsule by mouth three times a day as directed furosemide [Lasix] 20 mg tablet 20 mg PO DAILY 30 Days Qty: 30 0RF spironolactone 25 mg tablet 25 mg PO DAILY 30 Days Qty: 30 0RF lactulose 10 gram/15 mL solution 30 ml PO BID Label Comments: TAKE 30 ML BY MOUTH 4CTIMES A DAY insulin glargine [Lantus Solostar U-100 Insulin] 100 unit/mL (3 mL) insulin pen 15 unit subcut DAILY Qty: 15 0RF (DME) lancets Misc See Rx Instructions .Route Qty: 100 0RF Rx Instructions: As directed (DME) needle (disp) Needle See Rx Instructions .Route Qty: 500 0RF Rx Instructions: As directed Primary Care Provider: Valerie Mullins Referrals: Valerie Mullins MD [Primary Care Provider] - As Needed Disposition Disposition: Home, Self Care
[2022-08-02] MEDS: 0.9% Normal Saline 1,000 ML 1000 ML IV (16:14)
[2022-08-02 16:36] LABS: Absolute Lymphocyte Count 2.14 X10^3/uL (0.83-4.51); Absolute Neutrophil Count 4.9 X10^3/uL (2.0-7.7); Basophil# 0.03 X10^3/uL; Basophil% 0.4 % (0-1); Eosinophils% 6.2 % (0-5); Hematocrit 39.2 % (37-47); Hemoglobin 13.1 g/dL (12.0-15.0); Lymphocyte # 2.14 X10^3/ul (0.83-4.51); Lymphocyte % 26.6 % (19-41); Mean Corp Hgb Conc 33.4 g/dL (32-36); Mean Corpuscular Hgb 31.6 pg (27.0-32.0); Mean Corpuscular Volume 94.5 fL (81-99); Mean Platelet Vol. 9.9 fl (6.2-12.0); Monocyte% 6.2 % (0-10); NRBC Flagged by Analyzer 0 % (0-5); Neutrophil # 4.85 X10^3/uL (2.7-7.7); Neutrophil % 60.4 % (47-70); Platelet Count 255 K/mm3 (150-450); RBC Distribution Width CV 12.4 % (11.6-14.6); RBC Distribution Width SD 43.3 fl (35.1-43.9); Red Blood Count 4.15 M/mm3 (4.2-5.4)
[2022-08-02 16:41] LABS: ALB/GLOB Ratio 0.9 RATIO (0.9-2.4); AST(SGOT) 12 U/L (15-37); Alanine Aminotransfer ALT/SGPT 13 U/L (13-56); Albumin, Serum 3.7 g/dL (3.2-5.0); Alkaline Phosphatase 70 U/L (45-117); Anion Gap 8 (5-15); BUN 17 mg/dL (7-18); BUN/Creat Ratio 16.3 RATIO (10-20); Calcium,Total 10.7 mg/dL (8.5-10.1); Chloride 98 mmol/L (98-107); Creatinine, Serum 1.04 mg/dL (0.55-1.02); EST Glomerular Filtration Rate 60 mL/min (>60); Est Glom Filt Rate - Afr Amer 73 mL/min (>60); Estimated Creatinine Clearance 50.76 ml/min; Globulin 3.9 g/dL (2.2-4.2); Glucose 201 mg/dL (74-106); Potassium 3.7 mmol/L (3.5-5.1); Protein, Total 7.6 g/dL (6.4-8.2); Sodium Level 136 mmol/L (136-145)
[2022-08-02 17:30] VITALS: BP 124/83; PULSE 97; RESP 16; O2SAT 97
== END 2022-08-02 17:35 | disposition home or self-care (01) ==
PROVIDERS: Emergency Provider Emergency Medicine; PCP Internal Medicine; Visit Provider Emergency Medicine
DX: E86.0 Dehydration (principal); K76.0 Fatty (change of) liver, not elsewhere classified; F17.290 Nicotine dependence, other tobacco product, uncomplicated; Z86.16 Personal history of COVID-19
CPT/HCPCS: 80053; 85025; 96360; 99283; J7030; A4216

== ENCOUNTER → 2022-08-03 | Outpatient (CLI) | payer MEDICAID, SELFPAY ==
--- NOTE | 2022-08-03 10:48 | US_ITS ---
STUDY: ABDOMINAL ULTRASOUND -ascites survey. REASON FOR VISIT: Female, 46 years old ASCITES TECHNIQUE: Ultrasound evaluation of the 4 quadrants was performed with real-time and static santo-scale imaging. TECHNICAL QUALITY: Adequate. COMPARISON: None. FINDINGS: No evidence of ascites. US/Abdomen Limited IMPRESSION: No evidence of ascites. Electronically Signed: Denzel Quijano MD at 12:43 EST ,
== END | disposition home or self-care (01) ==
PROVIDERS: PCP Internal Medicine; Referring Provider Internal Medicine Gastroenterology; Visit Provider Internal Medicine Gastroenterology
DX: R18.8 Other ascites (principal)
CPT/HCPCS: 76705

== ENCOUNTER 2022-08-15 20:38 | Observation (INO) | payer MEDICAID, SELFPAY ==
[2022-08-15 20:40] VITALS: BP 127/85; PULSE 113; RESP 18; TEMP 36; O2SAT 99; BMI 17.6
--- NOTE | 2022-08-15 20:51 | EKG12_ITS ---
Test Reason : DYSRHYTHMIA Blood Pressure : / mmHG Vent. Rate : 094 BPM Atrial Rate : 094 BPM P-R Int : 150 ms QRS Dur : 074 ms QT Int : 358 ms P-R-T Axes : 044 066 057 degrees QTc Int : 447 ms Normal sinus rhythm Nonspecific ST abnormality Abnormal ECG Confirmed by RAFAEL BECK, TOMY ([id number]), slot editor AMAYA PITTMAN ([id number]) on 08/16/2022 12:44:06 PM Referred By: DARIUS Confirmed By:TOMY HALL MD
[2022-08-15 21:15] LABS: Bedside Glucose > 500 mg/dL (74-106)
[2022-08-15] MEDS: 0.9% Normal Saline 1,000 ML 999 ML IV ×2 (21:18→22:02)
[2022-08-15 21:28] LABS: Bacteria 0 SEEN /hpf (None Seen); Mucous, Urine 0 SEEN /hpf (<or=2+); Red Blood Cells-Urine 0 SEEN /hpf (0-5); White Blood Cells 0 SEEN /hpf (0-5)
[2022-08-15 21:32] LABS: Color, Urine Yellow (Yellow); Glucose, Dipstick 1000 mg/dl (Normal); Ketone-Dipstick Negative (Negative); Leukocyte Esterase-Dipstick Negative /ul (Negative); Nitrite-Dipstick Negative (Negative); Occult Blood-Urine Negative /ul (Negative); Protein-Dipstick Negative (Negative); Urine Bilirubin Dipstick Negative (Negative); Urine Clarity Sl. Cloudy (Clear); Urine Urobilinogen Normal (Normal); Urine pH 6.5 (5.0 - 8.0)
--- NOTE | 2022-08-15 21:34 | EX.ED.DYSGE1 ---
HPI History of Present Illness Chief Complaint: Hyperglycemia Narrative Narrative: 46-year-old female with history of alcoholic cirrhosis, insulin-dependent diabetes presenting with generalized weakness, nausea, hyperglycemia. She states that her blood sugars have been high at home. 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 She is on Lantus and sliding scale NovoLog. She states is been trying her blood sugar down however its not been able to. She states she was at her primary care physician's office and the nurse practitioner was concerned she is developing rheumatoid arthritis due to the pain in her joints. She started on prednisone. Patient does take 2 days of prednisone 20 mg daily. Patient now feeling a bit lightheaded, nauseous, generalized fatigue. He is not having chest pain or shortness of breath. He has not any falls. [facility] Medical History Alcoholic cirrhosis of liver with ascites Alcoholism Anxiety Asthma Breast implant status Chronic diarrhea Closed head injury COVID-19 Diabetes Fatty liver Gastritis and duodenitis H. pylori infection History of alcohol abuse HLD (hyperlipidemia) HTN (hypertension) Hypertension Malnutrition Migraines Nicotine abuse Pancreatitis Post-menopausal Recurrent acute pancreatitis SBP (spontaneous bacterial peritonitis) Smoker Transaminitis Home Medications duloxetine 60 mg capsule,delayed release 60 mg PO DAILY depression 12/10/21 [History Last Taken 03/10/22] ursodiol 300 mg capsule 300 mg PO BID gallbladder 12/10/21 [History Last Taken 03/10/22] ondansetron 4 mg disintegrating tablet 4 mg PO Q8H PRN nausea and vomiting #14 tabs 02/09/22 [Rx Last Taken 3 Days Ago ~03/07/22] famotidine 20 mg tablet 20 mg PO BID #60 tabs 02/20/22 [Rx Last Taken 03/09/22] rifaximin 550 mg tablet (Xifaxan) 550 mg PO BID #60 tabs 02/20/22 [Rx Last Taken 03/10/22] gabapentin 300 mg capsule 300 mg PO BID nerve pain 03/10/22 [History Last Taken 03/09/22] midodrine 5 mg tablet 10 mg PO TID blood pressure 03/10/22 [History Last Taken 03/10/22] insulin glargine 100 unit/mL (3 mL) subcutaneous pen (Lantus Solostar U-100 Insulin) 15 unit (0.15 mL) subcut DAILY #15 mL 05/02/22 [Rx Last Taken Unknown] lancets #100 ea 05/02/22 [Rx Last Taken Unknown] needle (disp) #500 ea 05/02/22 [Rx Last Taken Unknown] DOXIPIN 150 mg PO QHS 08/02/22 [History Last Taken Unknown] alprazolam 0.25 mg tablet 0.25 mg PO BID 08/02/22 [History Last Taken Unknown] lactulose 10 gram/15 mL oral solution 30 ml PO 3XD cirrhosis 08/02/22 [History Last Taken Unknown] pantoprazole 40 mg tablet,delayed release 40 mg PO DAILY 08/02/22 [History Last Taken Unknown] furosemide 20 mg tablet (Lasix) 40 mg PO DAILY 08/15/22 [History Last Taken Unknown] prednisone 10 mg tablet See Taper PO DAILY 08/15/22 [History Last Taken Unknown] spironolactone 25 mg tablet 50 mg PO DAILY 08/15/22 [History Last Taken Unknown] Allergy/AdvReac Type Severity Reaction Status Date / Time azithromycin [From Zithromax] AdvReac Diarrhea Verified 08/15/22 20:40 codeine AdvReac Nausea Verified 08/15/22 20:40 promethazine [From Phenergan] AdvReac Vomiting Verified 08/15/22 20:40 Family History Father Cancer Lung CA with tobacco use history. Heart disease Mother Cancer Hx breast CA. Diabetes Hypertension Other Alcoholic cirrhosis of liver with ascites Breast cancer High cholesterol Liver disease Osteoporosis Skin cancer Surgical History H/O breast augmentation H/O: knee surgery Previous section S/P tonsillectomy and adenoidectomy Social History housing: other details: Lives at home, her 15, 16 year old children live with her. 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 substance use type: does not use what type of physical activity do you participate in: none ROS ROS ED ROS Narrative Generalized Constitutional Constitutional ED: Denies chills or fever(s) Eyes Eyes: Denies change in vision or diplopia ENT ENT ED: Denies rhinorrhea or sore throat Cardiovascular Cardiovascular: Denies chest pain or palpitations Respiratory/Chest Respiratory/Chest: Denies cough or dyspnea Gastrointestinal Gastrointestinal: Reports nausea; Denies abdominal pain Genitourinary Genitourinary ED: Denies dysuria or hematuria Musculoskeletal Musculoskeletal: Denies arthralgias Integumentary Denies abscess Neurologic Neurologic: Reports headache(s) Psychiatric Psychiatric: Denies anxiety or depression EXAM Physical Exam Const Vital Signs: 08/15/22 20:40 08/15/22 22:39 08/15/22 23:28 Temperature 96.8 F L Temperature Source Temporal Pulse Rate 113 H 99 95 Respiratory Rate 18 14 14 Blood Pressure 127/85 H 130/98 H 138/87 H Blood Pressure Mean 99 108 104 Pulse Ox 99 98 98 Oxygen Delivery Method Room Air Room Air Room Air Positive well nourished General Appearance ED: NAD HEENT Reports moist mucous membranes Eyes PERRL and EOMs intact bilaterally General Eye ED: Yes pale conjunctiva Resp normal respiratory effort and clear to auscultation bilaterally Auscultation: Negative for rales, rhonchi or wheezes Cardio regular rhythm Rate: tachycardic GI normal to inspection, nondistended, normoactive bowel sounds Palpation: soft Extremity normal to inspection Neuro oriented x3 and CN's II-XII intact bilaterally Sensorium / Orientation: alert Psych mental status grossly normal Skin no rashes or lesions noted MDM MDM MDM Narrative Medical decision making narrative: Patient arriving with history of hyperglycemia over the last few weeks. Its been reading high. POC glucose here is greater than 500. Patient started with a liter of normal saline. Differential diagnosis at this point is hyperglycemia, DKA. So I will obtain patient also with history of cirrhosis. CBC to assess white blood cell count, hemoglobin, platelets, differential. Serum ketones. CMP to assess liver function, renal function, glucose, anion gap. Ammonia because the patient has a history of hepatic encephalopathy. She appears to be alert and awake. Urinalysis to assess for infection and urine ketones. Patient given Zofran for nausea. Patient was given an additional unit of normal saline. CBC shows a white blood cell count of 10.8. Hemoglobin stable 11.0. Platelets are normal. Creatinine 1.20, electrolytes within normal limits. Glucose is 537 on arrival without anion gap. Serum ketones are negative. Ammonia level is normal. LFTs within normal limits. After 2 L of fluids patient was given 20 units of Lantus. Repeat BMP was ordered but was apparently done at the same time at the insulin was given. Even though the patient not received insulin with 2 L of fluids that her glucose has gone up to 780. Bedside blood sugar was obtained 30 minutes after insulin was given still reading of greater than 500. Blood sugar was checked at 1 hour at bedside and still 588. Discussed with hospitalist for admission. He recommended PCU. He requested 8 units of subcutaneous insulin. He requested serum osmolality. This will be followed on the floor. Patient made in stable condition for Impression: 1. Hyperglycemia Lab Data Labs: Laboratory Results - last 24 hr 08/15/22 08/15/22 08/15/22 20:55 21:04 21:04 WBC 10.8 RBC 3.57 L Hgb 11.0 L Hct 33.5 L MCV 93.8 MCH 30.8 MCHC 32.8 RDW Std Deviation 42.7 RDW Coeff of Teressa 12.4 Plt Count 224 MPV 10.4 Immature Gran % (Auto) 0.600 Neut % (Auto) 75.6 H Lymph % (Auto) 16.5 L [place] % (Auto) 7.0 Eos % (Auto) 0.0 Baso % (Auto) 0.3 Absolute Neuts (auto) 8.2 H Absolute Lymphs (auto) 1.79 Nucleated RBC % 0 Sodium 136 Potassium 3.7 Chloride 98 Carbon Dioxide 27.0 Anion Gap 11 BUN 27 H Creatinine 1.20 H Estim Creat Clear Calc 45.19 Est GFR (MDRD) Af Amer 62 Est GFR (MDRD) Non-Af 51 L BUN/Creatinine Ratio 22.5 H Glucose 537 H* Calcium 9.5 Total Bilirubin 0.40 AST 9 L ALT 17 Alkaline Phosphatase 74 Ammonia Total Protein 7.3 Albumin 3.6 Globulin 3.7 Albumin/Globulin Ratio 1.0 Urine Color Urine Clarity Urine pH Ur Specific [place] Urine Protein Urine Glucose (UA) Urine Ketones Urine Occult Blood Urine Nitrite Urine Bilirubin Urine Urobilinogen Ur Leukocyte Esterase Urine RBC Urine WBC Ur Squamous Epith Cells Urine Bacteria Urine Mucus Acetone Level POC Glucose > 500 H* 08/15/22 08/15/22 08/15/22 21:04 21:04 21:20 WBC RBC Hgb Hct MCV MCH MCHC RDW Std Deviation RDW Coeff of Teressa Plt Count MPV Immature Gran % (Auto) Neut % (Auto) Lymph % (Auto) [place] % (Auto) Eos % (Auto) Baso % (Auto) Absolute Neuts (auto) Absolute Lymphs (auto) Nucleated RBC % Sodium Potassium Chloride Carbon Dioxide Anion Gap BUN Creatinine Estim Creat Clear Calc Est GFR (MDRD) Af Amer Est GFR (MDRD) Non-Af BUN/Creatinine Ratio Glucose Calcium Total Bilirubin AST ALT Alkaline Phosphatase Ammonia < 10.0 L Total Protein Albumin Globulin Albumin/Globulin Ratio Urine Color Yellow Urine Clarity Sl. Cloudy Urine pH 6.5 Ur Specific [place] 1.010 Urine Protein Negative Urine Glucose (UA) 1000 H Urine Ketones Negative Urine Occult Blood Negative Urine Nitrite Negative Urine Bilirubin Negative Urine Urobilinogen Normal Ur Leukocyte Esterase Negative Urine RBC 0 SEEN Urine WBC 0 SEEN Ur Squamous Epith Cells 0-5 SEEN Urine Bacteria 0 SEEN Urine Mucus 0 SEEN Acetone Level NEGATIVE POC Glucose 08/15/22 08/15/22 08/16/22 23:43 23:50 00:36 WBC RBC Hgb Hct MCV MCH MCHC RDW Std Deviation RDW Coeff of Teressa Plt Count MPV Immature Gran % (Auto) Neut % (Auto) Lymph % (Auto) [place] % (Auto) Eos % (Auto) Baso % (Auto) Absolute Neuts (auto) Absolute Lymphs (auto) Nucleated RBC % Sodium Potassium Chloride Carbon Dioxide Anion Gap BUN Creatinine Estim Creat Clear Calc Est GFR (MDRD) Af Amer Est GFR (MDRD) Non-Af BUN/Creatinine Ratio Glucose 780 H* Calcium Total Bilirubin AST ALT Alkaline Phosphatase Ammonia Total Protein Albumin Globulin Albumin/Globulin Ratio Urine Color Urine Clarity Urine pH Ur Specific [place] Urine Protein Urine Glucose (UA) Urine Ketones Urine Occult Blood Urine Nitrite Urine Bilirubin Urine Urobilinogen Ur Leukocyte Esterase Urine RBC Urine WBC Ur Squamous Epith Cells Urine Bacteria Urine Mucus Acetone Level POC Glucose > 500 H* > 500 H* Discharge Plan Triage Chief Complaint: Hyperglycemia ED Provider: Lj Lundberg Dx/Rx/DC Orders Prescriptions: No Action alprazolam 0.25 mg tablet 0.25 mg PO BID pantoprazole 40 mg tablet,delayed release (DR/EC) 40 mg PO DAILY DOXIPIN 150 mg PO QHS ursodiol 300 mg capsule 300 mg PO BID Label Comments: take 1 capsule by mouth twice a day duloxetine 60 mg capsule,delayed release(DR/EC) 60 mg PO DAILY Label Comments: take 1 capsule by mouth once daily ondansetron 4 mg tablet,disintegrating 4 mg PO Q8H PRN (Reason: nausea and vomiting) Qty: 14 0RF famotidine 20 mg Tablet 20 mg PO BID Qty: 60 1RF Xifaxan 550 mg Tablet 550 mg PO BID Qty: 60 1RF midodrine 5 mg tablet 10 mg PO TID Label Comments: TAKE TWO TABLETS (10 MG)CBY MOUTH 3 TIMES A DAY WITH MEALS gabapentin 300 mg capsule 300 mg PO BID Label Comments: take 1 capsule by mouth three times a day as directed lactulose 10 gram/15 mL solution 30 ml PO 3XD Label Comments: TAKE 30 ML BY MOUTH 4CTIMES A DAY insulin glargine [Lantus Solostar U-100 Insulin] 100 unit/mL (3 mL) insulin pen 15 unit subcut DAILY Qty: 15 0RF (DME) lancets Misc See Rx Instructions .Route Qty: 100 0RF Rx Instructions: As directed (DME) needle (disp) Needle See Rx Instructions .Route Qty: 500 0RF Rx Instructions: As directed prednisone 10 mg tablet See Taper PO DAILY Taper: Prednisone Taper 60 mg WITH BREAKFAST for 3 Days and 0 Hour 50 mg WITH BREAKFAST for 3 Days and 0 Hour 40 mg WITH BREAKFAST for 3 Days and 0 Hour 30 mg WITH BREAKFAST for 3 Days and 0 Hour 20 mg WITH BREAKFAST for 3 Days and 0 Hour 10 mg WITH BREAKFAST for 3 Days and 0 Hour spironolactone 25 mg tablet 50 mg PO DAILY furosemide [Lasix] 20 mg tablet 40 mg PO DAILY Primary Care Provider: Valerie Mullins Referrals: Valerie Mullins MD [Primary Care Provider] -
[2022-08-15 21:42] LABS: Squamous Epithelial Cells - UA 0-5 SEEN /hpf (5-10)
[2022-08-15 21:43] LABS: Absolute Lymphocyte Count 1.79 X10^3/uL (0.83-4.51); Absolute Neutrophil Count 8.2 X10^3/uL (2.0-7.7); Basophil# 0.03 X10^3/uL; Basophil% 0.3 % (0-1); Hematocrit 33.5 % (37-47); Lymphocyte # 1.79 X10^3/ul (0.83-4.51); Lymphocyte % 16.5 % (19-41); Mean Corp Hgb Conc 32.8 g/dL (32-36); Mean Corpuscular Hgb 30.8 pg (27.0-32.0); Mean Corpuscular Volume 93.8 fL (81-99); Mean Platelet Vol. 10.4 fl (6.2-12.0); Monocyte# 0.76 X10^3/uL; NRBC Flagged by Analyzer 0 % (0-5); Neutrophil # 8.18 X10^3/uL (2.7-7.7); Neutrophil % 75.6 % (47-70); Platelet Count 224 K/mm3 (150-450); RBC Distribution Width CV 12.4 % (11.6-14.6); RBC Distribution Width SD 42.7 fl (35.1-43.9); Red Blood Count 3.57 M/mm3 (4.2-5.4); White Blood Count 10.8 K/mm3 (4.4-11.0)
[2022-08-15] MEDS: Ondansetron 4 MG/2 ML Vial IV (21:46)
[2022-08-15 21:55] LABS: AST(SGOT) 9 U/L (15-37); Alanine Aminotransfer ALT/SGPT 17 U/L (13-56); Albumin, Serum 3.6 g/dL (3.2-5.0); Alkaline Phosphatase 74 U/L (45-117); Anion Gap 11 (5-15); BUN 27 mg/dL (7-18); BUN/Creat Ratio 22.5 RATIO (10-20); Calcium,Total 9.5 mg/dL (8.5-10.1); Chloride 98 mmol/L (98-107); EST Glomerular Filtration Rate 51 mL/min (>60); Est Glom Filt Rate - Afr Amer 62 mL/min (>60); Estimated Creatinine Clearance 45.19 ml/min; Globulin 3.7 g/dL (2.2-4.2); Glucose 537 mg/dL (74-106); Potassium 3.7 mmol/L (3.5-5.1); Protein, Total 7.3 g/dL (6.4-8.2); Sodium Level 136 mmol/L (136-145)
[2022-08-15 21:57] LABS: Ammonia < 10.0 umol/L (11-32)
[2022-08-15 22:39] VITALS: BP 130/98; PULSE 99; RESP 14; O2SAT 98
[2022-08-15 23:28] VITALS: BP 138/87; PULSE 95; RESP 14; O2SAT 98
[2022-08-15] MEDS: Insulin Lispro 100 UNIT/ML INSULN.PEN 10 UNIT SC (23:57)
[2022-08-16] VITALS (9 sets, daily range): BP systolic 128–149; BP diastolic 89–104; PULSE 70–91; RESP 16–19; TEMP 36.7–37.1; O2SAT 93–98; BMI 18.2
[2022-08-16 00:05] LABS: Bedside Glucose > 500 mg/dL (74-106)
[2022-08-16 00:31] LABS: Glucose 780 mg/dL (74-106)
[2022-08-16 00:56] LABS: Bedside Glucose > 500 mg/dL (74-106)
--- NOTE | 2022-08-16 01:18 | PCM.HP.STD ---
HPI - General General Date of Admission: 08/16/22 Date of Service: 08/16/22 Chief Complaint: Hyperglycemia HPI Narrative DAVID TATE, is a 46 F with a significant history of alcoholic liver cirrhosis awaiting transplantation; and tobacco abuse who presents to the emergency department because of elevated blood glucose for 1 week. Outpatient her blood glucose regimen was adjusted with basal insulin increased from 14 units daily to 15 units daily. Also previous prandial regimen was escalated. She continues to be on a correction scale insulin. On the day of presentation because her blood glucose was high it could not register on her machine so she came to the emergency department. Because of suspected rheumatoid arthritis the patient had been started on outpatient prednisone for 2 days. At the emergency department her blood glucose was severely elevated. [facility] Medical History Alcoholic cirrhosis of liver with ascites Alcoholism Anxiety Asthma Breast implant status Chronic diarrhea Closed head injury COVID-19 Diabetes Fatty liver Gastritis and duodenitis H. pylori infection History of alcohol abuse HLD (hyperlipidemia) HTN (hypertension) Hypertension Malnutrition Migraines Nicotine abuse Pancreatitis Post-menopausal Recurrent acute pancreatitis SBP (spontaneous bacterial peritonitis) Smoker Transaminitis Home Medications duloxetine 60 mg capsule,delayed release 60 mg PO DAILY depression 12/10/21 [History Last Taken 03/10/22] ursodiol 300 mg capsule 300 mg PO BID gallbladder 12/10/21 [History Last Taken 03/10/22] ondansetron 4 mg disintegrating tablet 4 mg PO Q8H PRN nausea and vomiting #14 tabs 02/09/22 [Rx Last Taken 3 Days Ago ~03/07/22] famotidine 20 mg tablet 20 mg PO BID #60 tabs 02/20/22 [Rx Last Taken 03/09/22] rifaximin 550 mg tablet (Xifaxan) 550 mg PO BID #60 tabs 02/20/22 [Rx Last Taken 03/10/22] gabapentin 300 mg capsule 300 mg PO BID nerve pain 03/10/22 [History Last Taken 03/09/22] midodrine 5 mg tablet 10 mg PO TID blood pressure 03/10/22 [History Last Taken 03/10/22] insulin glargine 100 unit/mL (3 mL) subcutaneous pen (Lantus Solostar U-100 Insulin) 15 unit (0.15 mL) subcut DAILY #15 mL 05/02/22 [Rx Last Taken Unknown] lancets #100 ea 05/02/22 [Rx Last Taken Unknown] needle (disp) #500 ea 05/02/22 [Rx Last Taken Unknown] DOXIPIN 150 mg PO QHS 08/02/22 [History Last Taken Unknown] alprazolam 0.25 mg tablet 0.25 mg PO BID 08/02/22 [History Last Taken Unknown] lactulose 10 gram/15 mL oral solution 30 ml PO 3XD cirrhosis 08/02/22 [History Last Taken Unknown] pantoprazole 40 mg tablet,delayed release 40 mg PO DAILY 08/02/22 [History Last Taken Unknown] furosemide 20 mg tablet (Lasix) 40 mg PO DAILY 08/15/22 [History Last Taken Unknown] prednisone 10 mg tablet See Taper PO DAILY 08/15/22 [History Last Taken Unknown] spironolactone 25 mg tablet 50 mg PO DAILY 08/15/22 [History Last Taken Unknown] Allergy/AdvReac Type Severity Reaction Status Date / Time azithromycin [From Zithromax] AdvReac Diarrhea Verified 08/15/22 20:40 codeine AdvReac Nausea Verified 08/15/22 20:40 promethazine [From Phenergan] AdvReac Vomiting Verified 08/15/22 20:40 Family History Father Cancer Lung CA with tobacco use history. Heart disease Mother Cancer Hx breast CA. Diabetes Hypertension Other Alcoholic cirrhosis of liver with ascites Breast cancer High cholesterol Liver disease Osteoporosis Skin cancer Surgical History H/O breast augmentation H/O: knee surgery Previous section S/P tonsillectomy and adenoidectomy Social History housing: other details: Lives at home, her 15, 16 year old children live with her. 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 substance use type: does not use what type of physical activity do you participate in: none ROS ROS Narrative Pertinent positives and pertinent negatives as noted in HPI. All other systems were reviewed and are negative Vital Signs Vital Signs Vital Signs: 08/15/22 20:40 08/15/22 22:39 08/15/22 23:28 Temperature 96.8 F L Temperature Source Temporal Pulse Rate 113 H 99 95 Respiratory Rate 18 14 14 Blood Pressure 127/85 H 130/98 H 138/87 H Blood Pressure Mean 99 108 104 Pulse Ox 99 98 98 Oxygen Delivery Method Room Air Room Air Room Air Weight Weight: 49.396 kg Body Mass Index (BMI) 17.6 Physical Exam Narrative Physical exam: General: Well-nourished, well-developed. Head: Normocephalic, atraumatic, no tenderness Eyes: Vision is grossly intact. EOMI ENT, no trauma, dry mucous membranes, no rhinorrhea Neck: Nontender, No thyromegaly. CVS: Regular rate and rhythm. S1-S2 present. No murmur, gallop or rub. Respiratory : clear to auscultation bilaterally, chest wall nontender, no wheezing Abdomen: Soft, nontender, nondistended, normal bowel sounds, no masses : Deferred Back: Nontender, no CVA tenderness, no midline spinal tenderness, deformities, step-offs Extremities: Nontender full range of motion, no trauma Skin: Normal color, no trauma, abrasions Neuro: Alert, oriented, cranial nerves II through XII grossly intact. Psychiatry: Normal mood. Normal affect. Not depressed. Not anxious. Results Lab / Micro Data Result Diagrams: 08/15/22 21:04 08/15/22 23:50 Labs: Laboratory Results - last 24 hr 08/15/22 20:55: POC Glucose > 500 H* 08/15/22 21:04: WBC 10.8, RBC 3.57 L, Hgb 11.0 L, Hct 33.5 L, MCV 93.8, MCH 30.8, MCHC 32.8, RDW Std Deviation 42.7, RDW Coeff of Teressa 12.4, Plt Count 224, MPV 10.4, Immature Gran % (Auto) 0.600, Neut % (Auto) 75.6 H, Lymph % (Auto) 16.5 L, [place] % (Auto) 7.0, Eos % (Auto) 0.0, Baso % (Auto) 0.3, Absolute Neuts (auto) 8.2 H, Absolute Lymphs (auto) 1.79, Nucleated RBC % 0 08/15/22 21:04: Sodium 136, Potassium 3.7, Chloride 98, Carbon Dioxide 27.0, Anion Gap 11, BUN 27 H, Creatinine 1.20 H, Estim Creat Clear Calc 45.19, Est GFR (MDRD) Af Amer 62, Est GFR (MDRD) Non-Af 51 L, BUN/Creatinine Ratio 22.5 H, Glucose 537 H*, Calcium 9.5, Total Bilirubin 0.40, AST 9 L, ALT 17, Alkaline Phosphatase 74, Total Protein 7.3, Albumin 3.6, Globulin 3.7, Albumin/Globulin Ratio 1.0 08/15/22 21:04: Acetone Level NEGATIVE 08/15/22 21:04: Ammonia < 10.0 L 08/15/22 21:20: Urine Color Yellow, Urine Clarity Sl. Cloudy, Urine pH 6.5, Ur Specific [place] 1.010, Urine Protein Negative, Urine Glucose (UA) 1000 H, Urine Ketones Negative, Urine Occult Blood Negative, Urine Nitrite Negative, Urine Bilirubin Negative, Urine Urobilinogen Normal, Ur Leukocyte Esterase Negative, Urine RBC 0 SEEN, Urine WBC 0 SEEN, Ur Squamous Epith Cells 0-5 SEEN, Urine Bacteria 0 SEEN, Urine Mucus 0 SEEN 08/15/22 23:43: POC Glucose > 500 H* 08/15/22 23:50: Glucose 780 H* 08/16/22 00:36: POC Glucose > 500 H* Assessment & Plan Assessment/Plan (1) Hyperglycemia: (2) Diabetes 1.5, managed as type 1: PLAN: Plan Acute hyperglycemia Osmolarities pending. Last A1c was on 08/02/2021. A1c was 7.7. Received normal saline bolus at the emergency department and subcutaneous insulin x2 in the emergency department with improved blood glucose. We will admit patient to progressive care unit. Accu-Chek every 2 hours with correction scale insulin ordered. Continue home basal insulin. N.p.o. except meds. Gentle IV hydration. Of note patient is a cirrhotic patient who previously used to get paracentesis. Cautious use of fluids. Hold prednisone. As needed IV Zofran ordered. DAMIR Creatinine presentation was 1.20. His baseline creatinine was less than 0.7. BUN is 27. BUN over creatinine 22.5. IV fluids as above. Avoid nephrotoxins. Trend BMP. Liver cirrhosis and history of hepatic encephalopathy With hyperglycemia and dehydration requiring IV fluids hold home Lasix and Aldactone. Lactulose held for hypoglycemia. Rifaximin continued. Headaches/joint pain Maxalt and. As needed Tylenol ordered. Tobacco abuse Counseled DVT prophylaxis Subcutaneous Lovenox ordered. Charges/Coding Visit Charges Inpatient E&M: 76412 Init Hosp L3
[2022-08-16 01:26] LABS: Bedside Glucose > 500 mg/dL (74-106)
[2022-08-16] MEDS: Insulin Lispro 100 UNIT/ML INSULN.PEN 8 UNIT SC (01:27)
[2022-08-16 02:01] LABS: Osmolality, Serum 316 mOsm/KG (275-295)
[2022-08-16 02:06] LABS: Glucose 645 mg/dL (74-106)
[2022-08-16] MEDS: Rizatriptan Benzoate 10 MG Tablet PO ×2 (02:37→02:56)
[2022-08-16] MEDS: 0.9% Normal Saline 1,000 ML 100 ML IV (02:55)
[2022-08-16] MEDS: Gabapentin 300 MG Capsule PO ×2 (02:58→21:30)
--- NOTE | 2022-08-16 03:19 | NURSING ---
This RN and primary RN Beck observed pt bringing electronic device to her mouth that appeared to be a vape. This RN and primary RN Beck entered pt's room and could smell nicotine vape. Pt admits to vaping in the room and is updated that vaping and smoking of any type are against [facility] policy and that her purse needs to be put in her closet. Pt refuses putting her purse in the closet and states that she will not vape and is open to a nicotine patch. Pt is informed that if she is observed vaping again, her purse will need to be locked up and she voices understanding. Pt also states that this isn't going to work and is frustrated with having her bed alarm on and does not understand why she cannot get up unassisted, as she does at home. Pt is given teaching of her risk of falls d/t fall two weeks ago and IV fluid administration with pump and pole. Pt again states this isn't going to work and teaching is reinforced. pt is requesting xanax at this time, home medication which is not currently ordered. Primary RN to address with MD. Lofton RN
--- NOTE | 2022-08-16 03:22 | NURSING ---
Pt ambulatory to restroom with this RN, IV pole and pt purse. When asked about taking purse into restroom pt states, I would like to brush my teeth. pt provided with toothbrush and toothpaste. Pt noted to guard purse and insist that RN leave restroom immediately. Supervision provided pt return to bed and bed alarm placed on bed. Pt states fall at home 2 weeks ago per pt. pt also states, numerous falls in recent months. Pt has NS at 100 ml/ hr infusing via pump at bedside. due to pt behavior door to patient left open, curtain pulled. Pt placed on camera at nursing station desk. pt noted to vape in pt room, nicotine place offered to pt, pt refused to allow purse to be placed in pt room cabinet, pt educated by charge nurse that [facility] is a non smoking facility. Pt is aware of this RN concern for pt safety d/t recent fall, acute treatment and IV pole. pt requests Xanax per home medication, Dr López contacted, will monitor patient.
[2022-08-16] MEDS: Insulin Lispro 100 UNIT/ML INSULN.PEN SC ×6 (04:11→21:37)
[2022-08-16] MEDS: ALPRAZolam 0.25 MG Tablet PO ×2 (04:11→21:31)
[2022-08-16] MEDS: 0.9% Saline Lock 10 ML Syringe IV ×3 (04:12→18:15)
[2022-08-16 05:38] LABS: Absolute Lymphocyte Count 1.25 X10^3/uL (0.83-4.51); Absolute Neutrophil Count 7.3 X10^3/uL (2.0-7.7); Basophil# 0.03 X10^3/uL; Basophil% 0.3 % (0-1); Eosinophil# 0.01 X10^3/uL; Eosinophils% 0.1 % (0-5); Hematocrit 34.1 % (37-47); Lymphocyte # 1.25 X10^3/ul (0.83-4.51); Mean Corp Hgb Conc 32.3 g/dL (32-36); Mean Corpuscular Hgb 30.8 pg (27.0-32.0); Mean Corpuscular Volume 95.5 fL (81-99); Mean Platelet Vol. 10.2 fl (6.2-12.0); Monocyte# 0.31 X10^3/uL; Monocyte% 3.5 % (0-10); NRBC Flagged by Analyzer 0 % (0-5); Neutrophil # 7.29 X10^3/uL (2.7-7.7); Neutrophil % 81.5 % (47-70); Platelet Count 215 K/mm3 (150-450); RBC Distribution Width CV 12.4 % (11.6-14.6); RBC Distribution Width SD 43.8 fl (35.1-43.9); Red Blood Count 3.57 M/mm3 (4.2-5.4); White Blood Count 8.9 K/mm3 (4.4-11.0)
[2022-08-16 06:26] LABS: Anion Gap 7 (5-15); BUN 21 mg/dL (7-18); BUN/Creat Ratio 24.1 RATIO (10-20); Chloride 102 mmol/L (98-107); Creatinine, Serum 0.87 mg/dL (0.55-1.02); EST Glomerular Filtration Rate 74 mL/min (>60); Est Glom Filt Rate - Afr Amer 89 mL/min (>60); Estimated Creatinine Clearance 64.74 ml/min; Glucose 407 mg/dL (74-106); Potassium 4.3 mmol/L (3.5-5.1); Sodium Level 135 mmol/L (136-145)
[2022-08-16 07:15] LABS: Bedside Glucose 359 mg/dL (74-106)
[2022-08-16 07:25] LABS: Bedside Glucose 406 mg/dL (74-106)
[2022-08-16] MEDS: DULoxetine Hcl 60 MG Capsule PO (07:59)
[2022-08-16] MEDS: Ursodiol 250 MG Tablet PO ×2 (07:59→16:35)
[2022-08-16] MEDS: Famotidine 20 MG Tablet PO (07:59)
[2022-08-16] MEDS: Insulin Glargine-YFGN 100 UNIT/ML Pen 15 UNIT SC ×2 (07:59→21:35)
[2022-08-16] MEDS: Enoxaparin 40 MG/0.4 ML Syringe SC (07:59)
[2022-08-16] MEDS: Pantoprazole Sodium 40 MG Tablet PO (07:59)
[2022-08-16] MEDS: rifAXIMin 550 MG Tablet PO ×2 (07:59→21:30)
[2022-08-16] MEDS: Acetaminophen 325 MG Tablet 650 MG PO (09:20)
[2022-08-16 09:40] LABS: Bedside Glucose 425 mg/dL (74-106)
--- NOTE | 2022-08-16 11:17 | PN.HOSP_ITS ---
Reason for Visit Reason for Visit: Diagnoses Other specified diabetes mellitus without complications (08/16/22) Hyperglycemia, unspecified (08/16/22) Subjective Subjective Patient is a 46-year-old lady with history of diabetes mellitus type 2 recently started on steroid therapy for suspected rheumatoid arthritis presented to the emergency department due to inability to control blood glucose levels Objective Data Objective Data Vital Signs: Vital Signs Temp Pulse Resp BP Pulse Ox O2 Del Method 98.1 F 85 16 140/90 H 98 Room Air 08/16/22 07:59 08/16/22 07:59 08/16/22 07:59 08/16/22 07:59 08/16/22 07:59 08/16/22 07:59 Oxygen Delivery Method Room Air Weight: 51.3 kg Body Mass Index (BMI) 18.2 Intake & Output: Intake and Output for Last 24 Hours 08/14/22 08/15/22 08/16/22 23:59 23:59 23:59 Intake Total 1732.6 / 1732.6 0 / 0 Balance 1732.6 / 1732.6 0 / 0 Lab / Micro Data Result Diagrams: 08/16/22 05:20 08/16/22 05:20 Labs: Laboratory Results - last 24 hr 08/15/22 20:55: POC Glucose > 500 H* 08/15/22 21:04: WBC 10.8, RBC 3.57 L, Hgb 11.0 L, Hct 33.5 L, MCV 93.8, MCH 30.8, MCHC 32.8, RDW Std Deviation 42.7, RDW Coeff of Teressa 12.4, Plt Count 224, MPV 10.4, Immature Gran % (Auto) 0.600, Neut % (Auto) 75.6 H, Lymph % (Auto) 16.5 L, [place] % (Auto) 7.0, Eos % (Auto) 0.0, Baso % (Auto) 0.3, Absolute Neuts (auto) 8.2 H, Absolute Lymphs (auto) 1.79, Nucleated RBC % 0 08/15/22 21:04: Sodium 136, Potassium 3.7, Chloride 98, Carbon Dioxide 27.0, Anion Gap 11, BUN 27 H, Creatinine 1.20 H, Estim Creat Clear Calc 45.19, Est GFR (MDRD) Af Amer 62, Est GFR (MDRD) Non-Af 51 L, BUN/Creatinine Ratio 22.5 H, Glucose 537 H*, Calcium 9.5, Total Bilirubin 0.40, AST 9 L, ALT 17, Alkaline Phosphatase 74, Total Protein 7.3, Albumin 3.6, Globulin 3.7, Albumin/Globulin Ratio 1.0 08/15/22 21:04: Acetone Level NEGATIVE 08/15/22 21:04: Ammonia < 10.0 L 08/15/22 21:20: Urine Color Yellow, Urine Clarity Sl. Cloudy, Urine pH 6.5, Ur Specific [place] 1.010, Urine Protein Negative, Urine Glucose (UA) 1000 H, Urine Ketones Negative, Urine Occult Blood Negative, Urine Nitrite Negative, Urine Bi lirubin Negative, Urine Urobilinogen Normal, Ur Leukocyte Esterase Negative, Urine RBC 0 SEEN, Urine WBC 0 SEEN, Ur Squamous Epith Cells 0-5 SEEN, Urine Bacteria 0 SEEN, Urine Mucus 0 SEEN 08/15/22 23:43: POC Glucose > 500 H* 08/15/22 23:50: Glucose 780 H* 08/16/22 00:36: POC Glucose > 500 H* 08/16/22 01:02: Serum Osmolality 316 H 08/16/22 01:03: POC Glucose > 500 H* 08/16/22 01:20: Glucose 645 H* 08/16/22 04:09: POC Glucose 406 H 08/16/22 05:20: WBC 8.9, RBC 3.57 L, Hgb 11.0 L, Hct 34.1 L, MCV 95.5, MCH 30.8, MCHC 32.3, RDW Std Deviation 43.8, RDW Coeff of Teressa 12.4, Plt Count 215, MPV 10.2, Immature Gran % (Auto) 0.600, Neut % (Auto) 81.5 H, Lymph % (Auto) 14.0 L, [place] % (Auto) 3.5, Eos % (Auto) 0.1, Baso % (Auto) 0.3, Absolute Neuts (auto) 7.3, Absolute Lymphs (auto) 1.25, Nucleated RBC % 0 08/16/22 05:20: Sodium 135 L, Potassium 4.3, Chloride 102, Carbon Dioxide 26.0, Anion Gap 7, BUN 21 H, Creatinine 0.87, Estim Creat Clear Calc 64.74, Est GFR (MDRD) Af Amer 89, Est GFR (MDRD) Non-Af 74, BUN/Creatinine Ratio 24.1 H, Glucose 407 H, Calcium 9.0 08/16/22 06:50: POC Glucose 359 H 08/16/22 09:15: POC Glucose 425 H Physical Exam Narrative GENERAL: cooperative HEENT: Atraumatic; normocephalic EYES; Anicteric, Normal Conjunctiva NECK; supple, normal thyroid, RESPIRATORY: Diminished to auscultation CARDIOVASCULAR: Regular S1 S2, GI: soft, normoactive bowel sounds, : No Renal angle tenderness; EXTREMITIES: No edema, no clubbing, MUSCULOSKELETAL: no muscle wasting NEURO: Awake; no lateralizing signs. SKIN: No Rash PSYCH; Flat affect Assessment & Plan Assessment/Plan (1) Hyperglycemia: PLAN: Plan Patient is a 46-year-old lady with history of diabetes mellitus type 2 recently started on steroid therapy for suspected rheumatoid arthritis presented to the emergency department due to inability to control blood glucose levels 1. Diabetes mellitus type 2 with uncontrolled blood glucose ? Secondary to concomitant use of steroids. Patient admitted to a monitored bed adjusted her long-acting insulin and placed on Accu-Cheks before meals and at bedtime with sliding scale coverage 2.? 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 Patient is currently stable on Xifaxan and lactulose 3.? Acute renal insufficiency ? Started on IV fluid with monitoring 4.? Depression with anxiety ? Patient is on alprazolam as needed in addition to duloxetine 5.? Anemia - Secondary to chronic disorder monitoring H&H and transfuse if patient becomes symptomatic or hemoglobin falls below? 7 6. Tobacco dependence - Counseled on cessation, offered nicotine patch for tobacco cravings 7. DVT prophylaxis ? Bilateral SCDs Time spent in the patient's overall evaluation,decision-making process, review of diagnostic data, adjustment of management, discussion with other providers, nursing nursing and ancillary staff involved in patient's care documentation, 40 Minutes Charges/Coding Visit Charges Inpatient E&M: 22381 Subs Hosp L2
[2022-08-16] MEDS: Insulin Glargine-YFGN 100 UNIT/ML Pen 30 UNIT SC (11:18)
[2022-08-16] MEDS: Lactulose 20 GM/30 ML UDC PO ×2 (11:18→21:31)
[2022-08-16] MEDS: Midodrine HCl 5 MG Tablet 10 MG PO (11:20)
--- NOTE | 2022-08-16 11:25 | CASEMGMT ---
ROGER LEIJA Face to Face with patient for initial transition planning/care coordination assessment. RN CM introduced self and role at [facility]. Patient lying in bed, alert and oriented. Patient willing to participate in assessment and is able to answer all questions appropriately. Care providers, pharmacy, and demographics verified. Patient wishes to discharge home, denies need for home health at this time. Patient states she has no further needs or concerns at this time. CM to follow for discharge planning needs that may arise. PCP: Susanna Specialists: Friend, GI; , emergency man; [facility] transplant team Preferred Pharmacy: [facility] Insurance: [employer] Prescription Benefit: yes Living Will/HPOA: yes, Micah Mcintosh son LNOK: son, mother Living Arrangements: Patient lives with 17yo and 16yo son in a single story home with 2 steps and railing to enter the home. Patient states she is independent at home. Transportation: self, mother, BF DME/HHC: Patient has shower chair, BSC, cane, rollator, glucometer and insulin with supplies. No previous HHC or SNF Disposition Plan: Patient to discharge home with family support and follow-up plans in place. Shruti FELICIANO, RN, CM
[2022-08-16 11:40] LABS: Bedside Glucose 464 mg/dL (74-106)
[2022-08-16] MEDS: Ketorolac 15 MG/ML Vial IV (14:36)
[2022-08-16] MEDS: Glucerna Shake 120 ML LIQUID PO (16:35)
[2022-08-16 16:56] LABS: Bedside Glucose 313 mg/dL (74-106)
[2022-08-16] MEDS: Ondansetron 4 MG/2 ML Vial IV (18:15)
[2022-08-16] MEDS: DOXEPIN HCL 50 MG CAPSULE 150 MG PO (21:34)
[2022-08-16 22:45] LABS: Bedside Glucose 409 mg/dL (74-106)
[2022-08-16] MEDS: Rizatriptan Benzoate 5 MG Tablet PO (23:08)
[2022-08-17 00:15] VITALS: BP 138/85; PULSE 96; RESP 18; TEMP 36.6; O2SAT 97
[2022-08-17 06:15] VITALS: BP 142/89; PULSE 85; RESP 18; TEMP 36.7; O2SAT 98
[2022-08-17 06:28] LABS: Absolute Lymphocyte Count 2.14 X10^3/uL (0.83-4.51); Absolute Neutrophil Count 4.7 X10^3/uL (2.0-7.7); Basophil# 0.03 X10^3/uL; Basophil% 0.4 % (0-1); Eosinophil# 0.16 X10^3/uL; Eosinophils% 2.1 % (0-5); Hematocrit 38.6 % (37-47); Hemoglobin 12.6 g/dL (12.0-15.0); Lymphocyte # 2.14 X10^3/ul (0.83-4.51); Lymphocyte % 27.6 % (19-41); Mean Corp Hgb Conc 32.6 g/dL (32-36); Mean Corpuscular Hgb 30.8 pg (27.0-32.0); Mean Corpuscular Volume 94.4 fL (81-99); Monocyte# 0.65 X10^3/uL; Monocyte% 8.4 % (0-10); NRBC Flagged by Analyzer 0 % (0-5); Neutrophil # 4.74 X10^3/uL (2.7-7.7); Platelet Count 205 K/mm3 (150-450); RBC Distribution Width CV 12.4 % (11.6-14.6); RBC Distribution Width SD 42.9 fl (35.1-43.9); Red Blood Count 4.09 M/mm3 (4.2-5.4); White Blood Count 7.8 K/mm3 (4.4-11.0)
[2022-08-17 06:50] LABS: ALB/GLOB Ratio 0.9 RATIO (0.9-2.4); AST(SGOT) 10 U/L (15-37); Alanine Aminotransfer ALT/SGPT 13 U/L (13-56); Albumin, Serum 3.1 g/dL (3.2-5.0); Alkaline Phosphatase 62 U/L (45-117); Anion Gap 6 (5-15); BUN 18 mg/dL (7-18); Calcium,Total 9.4 mg/dL (8.5-10.1); Chloride 102 mmol/L (98-107); EST Glomerular Filtration Rate 71 mL/min (>60); Est Glom Filt Rate - Afr Amer 86 mL/min (>60); Estimated Creatinine Clearance 62.58 ml/min; Globulin 3.4 g/dL (2.2-4.2); Glucose 368 mg/dL (74-106); Magnesium 1.6 mg/dL (1.6-2.6); Phosphorus 3.8 mg/dL (2.5-4.9); Potassium 3.7 mmol/L (3.5-5.1); Protein, Total 6.5 g/dL (6.4-8.2); Sodium Level 135 mmol/L (136-145)
[2022-08-17] MEDS: Lactulose 20 GM/30 ML UDC PO (07:02)
[2022-08-17] MEDS: Insulin Lispro 100 UNIT/ML INSULN.PEN SC ×2 (07:02→11:12)
[2022-08-17 07:30] LABS: Bedside Glucose 342 mg/dL (74-106)
[2022-08-17 07:40] VITALS: O2SAT 94
--- NOTE | 2022-08-17 07:44 | PN.HOSP_ITS ---
Reason for Visit Reason for Visit: Diagnoses Other specified diabetes mellitus without complications (08/16/22) Hyperglycemia, unspecified (08/16/22) Subjective Subjective Patient seen blood glucose levels still remain elevated however improved co mpared to her admission levels. Plan is for patient to be discharged home with adjustment of her insulin dose Objective Data Objective Data Vital Signs: Vital Signs Temp Pulse Resp BP Pulse Ox O2 Del Method 98.0 F 85 18 142/89 H 94 Room Air 08/17/22 06:15 08/17/22 06:15 08/17/22 06:15 08/17/22 06:15 08/17/22 07:40 08/17/22 07:40 Oxygen Delivery Method Room Air Weight: 51.3 kg Body Mass Index (BMI) 18.2 Intake & Output: Intake and Output for Last 24 Hours 08/15/22 08/16/22 08/17/22 23:59 23:59 23:59 Intake Total 1732.6 / 1732.6 2039 Balance 1732.6 / 1732.6 2039 Medical Nutrition Assessment Dietitian: Malnutrition Criteria Met Start: 08/16/22 14:48 Freq: Status: Active Protocol: Document 08/16/22 14:48 RMA (Rec: 08/16/22 14:48 RMA [id number]) Nutrition Malnutrition Evidence of Malnutrition Exists Yes Malnutrition (severe): Chronic Evidenced By Suboptimal Energy Intake ( Severe),Weight Loss (Severe), Physical Changes (Moderate) Clinical Problem Chronic Disease or Condition Related Malnutrition Etiology Severe protein-calorie malnutrition in the context of chronic disease related to inadequate oral intake and poor glycemic control Signs/Symptoms as evidenced by ~18% wt loss x 8-9 months, moderate muscle wasting/fat depletion in the clavicle, temporal and orbital regions and oral intake meeting less than 50% estimated nutrition needs x past 3-6 months Status Active Problem Recommendation Dietitian Recommendations/Changes 1800 calorie/consistent carbohydrate; sodium- restricted diet with extra 1-2 oz protein Q meal 120ml glucerna shake TID w/ medpass Lab / Micro Data Result Diagrams: 08/17/22 05:08 08/17/22 05:08 Labs: Laboratory Results - last 24 hr 08/16/22 09:15: POC Glucose 425 H 08/16/22 11:16: POC Glucose 464 H* 08/16/22 16:35: POC Glucose 313 H 08/16/22 21:21: POC Glucose 409 H 08/17/22 05:08: WBC 7.8, RBC 4.09 L, Hgb 12.6, Hct 38.6, MCV 94.4, MCH 30.8, MCHC 32.6, RDW Std Deviation 42.9, RDW Coeff of Teressa 12.4, Plt Count 205, MPV 10.0, Immature Gran % (Auto) 0.500, Neut % (Auto) 61.0, Lymph % (Auto) 27.6, [place] % (Auto) 8.4, Eos % (Auto) 2.1, Baso % (Auto) 0.4, Absolute Neuts (auto) 4.7, Absolute Lymphs (auto) 2.14, Nucleated RBC % 0 08/17/22 05:08: Sodium 135 L, Potassium 3.7, Chloride 102, Carbon Dioxide 27.0, Anion Gap 6, BUN 18, Creatinine 0.90, Estim Creat Clear Calc 62.58, Est GFR (MDRD) Af Amer 86, Est GFR (MDRD) Non-Af 71, BUN/Creatinine Ratio 20.0, Glucose 368 H, Calcium 9.4, Phosphorus 3.8, Magnesium 1.6, Total Bilirubin 0.30, AST 10 L, ALT 13, Alkaline Phosphatase 62, Total Protein 6.5, Albumin 3.1 L, Globulin 3.4, Albumin/Globulin Ratio 0.9 08/17/22 07:01: POC Glucose 342 H Physical Exam Narrative GENERAL: cooperative HEENT: Atraumatic; normocephalic EYES; Anicteric, Normal Conjunctiva NECK; supple, normal thyroid, RESPIRATORY: Diminished to auscultation CARDIOVASCULAR: Regular S1 S2, GI: soft, normoactive bowel sounds, : No Renal angle tenderness; EXTREMITIES: No edema, no clubbing, MUSCULOSKELETAL: no muscle wasting NEURO: Awake; no lateralizing signs. SKIN: No Rash PSYCH; Flat affect Assessment & Plan Assessment/Plan (1) Hyperglycemia: PLAN: Plan Patient is a 46-year-old lady with history of diabetes mellitus type 2 recently started on steroid therapy for suspected rheumatoid arthritis presented to the emergency department due to inability to control blood glucose levels 1. Diabetes mellitus type 2 with uncontrolled blood glucose ? Secondary to concomitant use of steroids. Patient admitted to a monitored bed adjusted her long-acting insulin and placed on Accu-Cheks before meals and at bedtime with sliding scale coverage ? 08/17/2022; Patient seen blood glucose levels still remain elevated however improved compared to her admission levels. Plan is for patient to be discharged home with adjustment of her insulin dose 2.? 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 Patient is currently stable on Xifaxan and lactulose 3.? Acute renal insufficiency ? Started on IV fluid with monitoring 4.? Depression with anxiety ? Patient is on alprazolam as needed in addition to duloxetine 5.? Anemia - Secondary to chronic disorder monitoring H&H and transfuse if patient becomes symptomatic or hemoglobin falls below? 7 6. Tobacco dependence - Counseled on cessation, offered nicotine patch for tobacco cravings 7. DVT prophylaxis ? Bilateral SCDs Time spent in the patient's overall evaluation,decision-making process, review of diagnostic data, adjustment of management, discussion with other providers, nursing nursing and ancillary staff involved in patient's care documentation, 40 Minutes Charges/Coding Visit Charges Inpatient E&M: 00913 Subs Hosp L2
[2022-08-17 09:16] VITALS: BP 118/76; PULSE 96; RESP 16; TEMP 36.7; O2SAT 96
[2022-08-17] MEDS: Enoxaparin 40 MG/0.4 ML Syringe SC (09:16)
[2022-08-17] MEDS: Insulin Glargine-YFGN 100 UNIT/ML Pen 30 UNIT SC (09:16)
[2022-08-17] MEDS: Glucerna Shake 120 ML LIQUID PO ×2 (09:16→11:12)
[2022-08-17] MEDS: Ursodiol 250 MG Tablet PO (09:17)
[2022-08-17] MEDS: DULoxetine Hcl 60 MG Capsule PO (09:17)
[2022-08-17] MEDS: Gabapentin 300 MG Capsule PO (09:17)
[2022-08-17] MEDS: rifAXIMin 550 MG Tablet PO (09:17)
[2022-08-17] MEDS: Pantoprazole Sodium 40 MG Tablet PO (09:17)
[2022-08-17] MEDS: ALPRAZolam 0.25 MG Tablet PO (09:17)
[2022-08-17] MEDS: Famotidine 20 MG Tablet PO (09:17)
--- NOTE | 2022-08-17 10:26 | DS.PCM_ITS ---
Providers Date of Admission: 08/16/22 Date of Discharge: 08/17/22 Primary Care Physician: Dr. Valerie Mullins MD Reason For Visit: HYPERGLYCEMIA Diagnosis Discharge Diagnosis (1) Hyperglycemia: Status: Acute Code(s): R73.9 - Hyperglycemia, unspecified Plan Patient is a 46-year-old lady with history of diabetes mellitus type 2 recently started on steroid therapy for suspected rheumatoid arthritis presented to the emergency department due to inability to control blood glucose levels 1. Diabetes mellitus type 2 with uncontrolled blood glucose ? Secondary to concomitant use of steroids. Patient admitted to a monitored bed adjusted her long-acting insulin and placed on Accu-Cheks before meals and at bedtime with sliding scale coverage ? 08/17/2022; Patient seen blood glucose levels still remain elevated however improved compared to her admission levels. Plan is for patient to be discharged home with adjustment of her insulin dose 2.? 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 Patient is currently stable on Xifaxan and lactulose 3.? Acute renal insufficiency ? Started on IV fluid with monitoring 4.? Depression with anxiety ? Patient is on alprazolam as needed in addition to duloxetine 5.? Anemia - Secondary to chronic disorder monitoring H&H and transfuse if patient becomes symptomatic or hemoglobin falls below? 7 6. Tobacco dependence - Counseled on cessation, offered nicotine patch for tobacco cravings 7. DVT prophylaxis ? Bilateral SCDs Time spent in the patient's overall evaluation,decision-making process, review of diagnostic data, adjustment of management, discussion with other providers, nursing nursing and ancillary staff involved in patient's care documentation, 40 Minutes Medications at Discharge Home Medications duloxetine 60 mg capsule,delayed release 60 mg PO DAILY depression 12/10/21 ursodiol 300 mg capsule 300 mg PO BID gallbladder 12/10/21 ondansetron 4 mg disintegrating tablet 4 mg PO Q8H PRN nausea and vomiting #14 tabs 02/09/22 famotidine 20 mg tablet 20 mg PO BID #60 tabs 02/20/22 rifaximin 550 mg tablet (Xifaxan) 550 mg PO BID #60 tabs 02/20/22 gabapentin 300 mg capsule 300 mg PO BID nerve pain 03/10/22 midodrine 5 mg tablet 10 mg PO TID blood pressure 03/10/22 lancets #100 ea 05/02/22 needle (disp) #500 ea 05/02/22 DOXIPIN 150 mg PO QHS 08/02/22 alprazolam 0.25 mg tablet 0.25 mg PO BID 08/02/22 lactulose 10 gram/15 mL oral solution 30 ml PO 3XD cirrhosis 08/02/22 pantoprazole 40 mg tablet,delayed release 40 mg PO DAILY 08/02/22 furosemide 20 mg tablet (Lasix) 40 mg PO DAILY 08/15/22 spironolactone 25 mg tablet 50 mg PO DAILY 08/15/22 insulin glargine 100 unit/mL (3 mL) subcutaneous pen (Lantus Solostar U-100 Insulin) 25 unit (0.25 mL) subcut BIDCM #15 mL 08/17/22 Hospital Course Summary of Care Provided Minutes Spent on Discharge: 40 Physical Exam Narrative GENERAL: cooperative HEENT: Atraumatic; normocephalic EYES; Anicteric, Normal Conjunctiva NECK; supple, normal thyroid, RESPIRATORY: Diminished to auscultation CARDIOVASCULAR: Regular S1 S2, GI: soft, normoactive bowel sounds, : No Renal angle tenderness; EXTREMITIES: No edema, no clubbing, MUSCULOSKELETAL: no muscle wasting NEURO: Awake; no lateralizing signs. SKIN: No Rash PSYCH; Flat affect Medical Records Data Medical Nutrition Assessment Dietitian: Malnutrition Criteria Met Start: 08/16/22 14:48 Freq: Status: Active Protocol: Document 08/16/22 14:48 RMA (Rec: 08/16/22 14:48 RMA [id number]) Nutrition Malnutrition Evidence of Malnutrition Exists Yes Malnutrition (severe): Chronic Evidenced By Suboptimal Energy Intake ( Severe),Weight Loss (Severe), Physical Changes (Moderate) Clinical Problem Chronic Disease or Condition Related Malnutrition Etiology Severe protein-calorie malnutrition in the context of chronic disease related to inadequate oral intake and poor glycemic control Signs/Symptoms as evidenced by ~18% wt loss x 8-9 months, moderate muscle wasting/fat depletion in the clavicle, temporal and orbital regions and oral intake meeting less than 50% estimated nutrition needs x past 3-6 months Status Active Problem Recommendation Dietitian Recommendations/Changes 1800 calorie/consistent carbohydrate; sodium- restricted diet with extra 1-2 oz protein Q meal 120ml glucerna shake TID w/ medpass Weight / BMI Weight Weight: 51.3 kg Body Mass Index (BMI) 18.2 ABG / Lab / Microbiology Data Result Diagrams: 08/17/22 05:08 08/17/22 05:08 Laboratory: Laboratory Results - last 24 hr 08/16/22 11:16: POC Glucose 464 H* 08/16/22 16:35: POC Glucose 313 H 08/16/22 21:21: POC Glucose 409 H 08/17/22 05:08: WBC 7.8, RBC 4.09 L, Hgb 12.6, Hct 38.6, MCV 94.4, MCH 30.8, MCHC 32.6, RDW Std Deviation 42.9, RDW Coeff of Teressa 12.4, Plt Count 205, MPV 10.0, Immature Gran % (Auto) 0.500, Neut % (Auto) 61.0, Lymph % (Auto) 27.6, [place] % (Auto) 8.4, Eos % (Auto) 2.1, Baso % (Auto) 0.4, Absolute Neuts (auto) 4.7, Absolute Lymphs (auto) 2.14, Nucleated RBC % 0 08/17/22 05:08: Sodium 135 L, Potassium 3.7, Chloride 102, Carbon Dioxide 27.0, Anion Gap 6, BUN 18, Creatinine 0.90, Estim Creat Clear Calc 62.58, Est GFR (MDRD) Af Amer 86, Est GFR (MDRD) Non-Af 71, BUN/Creatinine Ratio 20.0, Glucose 368 H, Calcium 9.4, Phosphorus 3.8, Magnesium 1.6, Total Bilirubin 0.30, AST 10 L, ALT 13, Alkaline Phosphatase 62, Total Protein 6.5, Albumin 3.1 L, Globulin 3.4, Albumin/Globulin Ratio 0.9 08/17/22 07:01: POC Glucose 342 H D/C Instructions Discharge Diet: 1800 Calorie Control Diet Discharge Activity: Return to Normal Activity Call your doctor if you observe: Fever of 101 or Higher, Shortness of breath, Fainting spells and Chest pain Meaningful Use Info Meaningful Use Diagnoses (Choose all that apply): None applicable Discharge Plan Admission Admit Date/Time: 08/16/22 01:02 Attending Provider: Sai Aparicio Primary Care Provider: Valerie Mullins Consulting Providers: Benny López Discharge Orders/Prescriptions Prescriptions: Continued alprazolam 0.25 mg tablet 0.25 mg PO BID pantoprazole 40 mg tablet,delayed release (DR/EC) 40 mg PO DAILY DOXIPIN 150 mg PO QHS ursodiol 300 mg capsule 300 mg PO BID Label Comments: take 1 capsule by mouth twice a day duloxetine 60 mg capsule,delayed release(DR/EC) 60 mg PO DAILY Label Comments: take 1 capsule by mouth once daily ondansetron 4 mg tablet,disintegrating 4 mg PO Q8H PRN (Reason: nausea and vomiting) Qty: 14 0RF famotidine 20 mg Tablet 20 mg PO BID Qty: 60 1RF Xifaxan 550 mg Tablet 550 mg PO BID Qty: 60 1RF midodrine 5 mg tablet 10 mg PO TID Label Comments: TAKE TWO TABLETS (10 MG)CBY MOUTH 3 TIMES A DAY WITH MEALS gabapentin 300 mg capsule 300 mg PO BID Label Comments: take 1 capsule by mouth three times a day as directed lactulose 10 gram/15 mL solution 30 ml PO 3XD Label Comments: TAKE 30 ML BY MOUTH 4CTIMES A DAY (DME) lancets Misc See Rx Instructions .Route Qty: 100 0RF Rx Instructions: As directed (DME) needle (disp) Needle See Rx Instructions .Route Qty: 500 0RF Rx Instructions: As directed spironolactone 25 mg tablet 50 mg PO DAILY furosemide [Lasix] 20 mg tablet 40 mg PO DAILY Changed insulin glargine [Lantus Solostar U-100 Insulin] 100 unit/mL (3 mL) insulin pen 25 unit subcut BIDCM Qty: 15 0RF Discontinued prednisone 10 mg tablet See Taper PO DAILY Taper: Prednisone Taper 60 mg WITH BREAKFAST for 3 Days and 0 Hour 50 mg WITH BREAKFAST for 3 Days and 0 Hour 40 mg WITH BREAKFAST for 3 Days and 0 Hour 30 mg WITH BREAKFAST for 3 Days and 0 Hour 20 mg WITH BREAKFAST for 3 Days and 0 Hour 10 mg WITH BREAKFAST for 3 Days and 0 Hour Referrals / Follow Up: Valerie Mullins MD [Primary Care Provider] - Within 1 Week Disposition Disposition (needs filled in before D/C Order can be placed): Home, Self Care Charges/Coding Visit Charges Inpatient E&M: 86003 Disch Hosp >30min
--- NOTE | 2022-08-17 10:56 | PHA.DC.MR ---
Pharmacy Service has performed discharge medication reconciliation for this patient. The patient's discharge medication list was reviewed for discrepancies and discrepancies were resolved. Home Medications duloxetine 60 mg capsule,delayed release 60 mg PO DAILY depression 12/10/21 ursodiol 300 mg capsule 300 mg PO BID gallbladder 12/10/21 ondansetron 4 mg disintegrating tablet 4 mg PO Q8H PRN nausea and vomiting #14 tabs 02/09/22 famotidine 20 mg tablet 20 mg PO BID #60 tabs 02/20/22 rifaximin 550 mg tablet (Xifaxan) 550 mg PO BID #60 tabs 02/20/22 gabapentin 300 mg capsule 300 mg PO BID nerve pain 03/10/22 midodrine 5 mg tablet 10 mg PO TID blood pressure 03/10/22 lancets #100 ea 05/02/22 needle (disp) #500 ea 05/02/22 DOXIPIN 150 mg PO QHS 08/02/22 alprazolam 0.25 mg tablet 0.25 mg PO BID 08/02/22 lactulose 10 gram/15 mL oral solution 30 ml PO 3XD cirrhosis 08/02/22 pantoprazole 40 mg tablet,delayed release 40 mg PO DAILY 08/02/22 furosemide 20 mg tablet (Lasix) 40 mg PO DAILY 08/15/22 spironolactone 25 mg tablet 50 mg PO DAILY 08/15/22 insulin glargine 100 unit/mL (3 mL) subcutaneous pen (Lantus Solostar U-100 Insulin) 25 unit (0.25 mL) subcut BIDCM #15 mL 08/17/22
[2022-08-17 11:56] LABS: Bedside Glucose 272 mg/dL (74-106)
== END 2022-08-17 12:56 | disposition home or self-care (01) | DRG 420 ==
LOC: ED 21:04 → PCU 08-16 07:22
PROVIDERS: Admitting Provider Hospitalist; Emergency Provider Student in an Organized Health Care Education/Training Program; PCP Internal Medicine; Visit Provider Internal Medicine
DX: E13.65 Other specified diabetes mellitus with hyperglycemia (principal); E43 Unspecified severe protein-calorie malnutrition; M06.9 Rheumatoid arthritis, unspecified; K70.30 Alcoholic cirrhosis of liver without ascites; F10.20 Alcohol dependence, uncomplicated; Z79.4 Long term (current) use of insulin; Z76.82 Awaiting organ transplant status; D63.8 Anemia in other chronic diseases classified elsewhere; E78.5 Hyperlipidemia, unspecified; I10 Essential (primary) hypertension; F17.290 Nicotine dependence, other tobacco product, uncomplicated; F41.9 Anxiety disorder, unspecified; N28.9 Disorder of kidney and ureter, unspecified; F32.A Depression, unspecified; T38.0X5A Adverse effect of glucocorticoids and synthetic analogues, initial encounter; Z68.1 Body mass index [BMI] 19.9 or less, adult; Z79.899 Other long term (current) drug therapy; Z86.16 Personal history of COVID-19
CPT/HCPCS: 36415; 80048; 80053; 81001; 82009; 82140; 82947; 82962; 83735; 83930; 84100; 85025; 93005; 96361; 96372; 96374; 96375; 96376; 97802; 99221; 99284; J7030; A4216; G0378; J2405

== ENCOUNTER → 2022-08-30 | Outpatient (CLI) | payer MEDICAID, SELFPAY ==
--- NOTE | 2022-08-30 08:13 | US_ITS ---
PROCEDURE: Ultrasound guided paracentesis. DATE OF EXAMINATION: August 30, 2022.. INDICATION: Female, 47 years old. Ascites. PHYSICIAN: Denzel Quijano M.D. TECHNIQUE: The risks, benefits, and alternatives to the procedure were explained to the patient. The specific risks of bleeding, infection, and damage to bowel were detailed and accepted. Witnessed informed consent was obtained. The abdomen was ultrasonographically surveyed. An appropriate pocket of fluid was identified at the mid lower quadrant. The skin were cleaned and prepped in the usual sterile fashion. Using ultrasound guidance, the peritoneal cavity was accessed with a 5-[place] paracentesis needle/catheter system. The trocar was removed. A total of 150 ml of annalisa-colored fluid were removed from the peritoneal cavity. The catheter was removed and a sterile dressing was applied. The procedure was well tolerated. US/Paracentesis with US IMPRESSION: Ultrasound guided paracentesis. Electronically Signed: Denzel Quijano MD at 10:16 EDT ,
[2022-08-30] MEDS: Lidocaine 2% (20 ml mdv) 20 ML Vial INFILT (08:29)
[2022-08-30 08:32] VITALS: BP 119/78; BP 133/81; PULSE 94; RESP 14; O2SAT 93; O2SAT 99
== END | disposition home or self-care (01) ==
PROVIDERS: PCP Internal Medicine; Visit Provider Internal Medicine Gastroenterology
DX: K74.60 Unspecified cirrhosis of liver (principal); R18.8 Other ascites
CPT/HCPCS: 49083

== ENCOUNTER → 2022-10-13 | Outpatient (CLI) | payer MEDICAID, SELFPAY ==
[2022-10-13 17:09] LABS: Anion Gap 6 (5-15); BUN 19 mg/dL (7-18); BUN/Creat Ratio 19.1 RATIO (10-20); Calcium,Total 9.7 mg/dL (8.5-10.1); Chloride 105 mmol/L (98-107); Creatinine, Serum 0.99 mg/dL (0.55-1.02); EST Glomerular Filtration Rate 63 mL/min (>60); Est Glom Filt Rate - Afr Amer 77 mL/min (>60); Glucose 86 mg/dL (74-106); Potassium 3.9 mmol/L (3.5-5.1); Sodium Level 139 mmol/L (136-145)
== END | disposition home or self-care (01) ==
PROVIDERS: PCP Internal Medicine
DX: K70.31 Alcoholic cirrhosis of liver with ascites (principal)
CPT/HCPCS: 36415; 80048

== ENCOUNTER → 2022-10-21 | Outpatient (CLI) | payer MEDICAID, SELFPAY ==
--- NOTE | 2022-10-21 09:34 | US_ITS ---
STUDY: ABDOMINAL ULTRASOUND - RIGHT UPPER QUADRANT REASON FOR VISIT: Female, 47 years old CIRRHOSIS/ASCITES TECHNIQUE: Ultrasound evaluation of the right upper quadrant was performed with real-time and static santo-scale imaging. TECHNICAL QUALITY: Adequate. COMPARISON: None. FINDINGS: Liver: The liver measures 17.2 cm. There is heterogeneous echogenicity of the liver. The bile ducts are within normal limits. There is hepatic color flow. The direction of portal flow is hepatopetal. There is no demonstrated mass lesion. Gallbladder: Normal distended gallbladder. The gallbladder wall measures 2 mm. There is a negative sonographic Moore''s sign. There is trace of pericholecystic fluid. There are no gallstones. Common Bile Duct (C.B.D.): The common bile duct measures 9 mm. Pancreas: Normal size of the head, body and tail of the pancreas. There is normal echogenicity of the pancreas. There is no demonstrated pancreatic mass or cyst. Right Kidney: Normal size of the right kidney. The right kidney measures 10.2 x 4.9 x 4.2 cm. Normal renal cortex. The right cortex measures 1.4 cm. There is no demonstrated renal mass or cyst. There is no right hydronephrosis. US/Abdomen Limited IMPRESSION: Enlarged liver demonstrating diffuse hepatocellular disease.. No gallstones identified or definitive evidence for acute cholecystitis. There is a trace of pericholecystic fluid Dilated distal common bile duct without evidence for intraductal stone. MRI/MRCP would be useful for further evaluation if indicated. Electronically Signed: Jose Gomez MD at 17:30 EDT ,
== END | disposition home or self-care (01) ==
LOC: US 09:32
PROVIDERS: PCP Internal Medicine
DX: K70.31 Alcoholic cirrhosis of liver with ascites (principal)
CPT/HCPCS: 76705

== ENCOUNTER 2022-12-27 02:18 | Emergency (ER) | payer MEDICAID, SELFPAY ==
[2022-12-27 02:22] VITALS: BP 130/87; PULSE 77; RESP 16; TEMP 36.4; O2SAT 92; BMI 22.0
--- NOTE | 2022-12-27 02:56 | RAD_ITS ---
EXAM: XR LUMBOSACRAL SPINE, 2 OR 3 VIEWS CLINICAL INDICATION: pain pain TECHNIQUE: Frontal and lateral views of the lumbar spine and sacrum. COMPARISON: No relevant prior studies available. FINDINGS: VERTEBRAE: There is a wedge-shaped compression fracture of the L1 superior vertebral endplate which appears to be acute. There is an approximately 25% loss of intervertebral body height. There is mild lumbar dextroscoliosis. There are multilevel degenerative changes of facet joints in the lower spine. No spondylolisthesis. DISC SPACES: No acute findings. Disc spaces are maintained. GASTROINTESTINAL TRACT: Unremarkable as visualized. Included bowel gas pattern is non-obstructive. RAD/Lumbar Spine 2 or 3 Views IMPRESSION: L1 vertebral compression fracture, probably acute. Electronically Signed: Louis Lee MD at 4:06 EDT Reading Location ID and State: [facility] / [place] , Service support ,
[2022-12-27] MEDS: Morphine 4 MG/ML Syringe IV (03:00)
[2022-12-27] MEDS: Ondansetron 4 MG/2 ML Vial IV (03:00)
[2022-12-27] MEDS: Orphenadrine 60 MG/2 ML Ampul IV (03:01)
[2022-12-27 03:37] VITALS: BP 124/77; PULSE 87; RESP 16; O2SAT 90
[2022-12-27 04:20] VITALS: BP 139/89; PULSE 92; RESP 16; O2SAT 90
--- NOTE | 2022-12-27 04:36 | EDS_ITS ---
HPI History of Present Illness Chief Complaint: Back Informant: patient and family Narrative Narrative: Patient is a 47-year-old female with past medical history of hypertension hyperlipidemia diabetes and alcohol abuse. She states that she fell asleep while eating cereal and dropped her bowl onto the floor. She states she awoke but then slipped on the contents of the cereal bowl and fell landing directly onto her buttocks. She denies striking her head or any loss of consciousness. She states that she developed pain in the low back following the fall. She states it is difficult to ambulate secondary to the pain. She denies any loss of bowel or bladder control or IV drug use however with sudden onset pain status post fall she has concern for fracture and presents for evaluation [facility] Medical History Alcoholic cirrhosis of liver with ascites Alcoholism Anxiety Asthma Breast implant status Chronic diarrhea Closed head injury COVID-19 Diabetes Fatty liver Gastritis and duodenitis H. pylori infection History of alcohol abuse HLD (hyperlipidemia) HTN (hypertension) Hypertension Malnutrition Migraines Nicotine abuse Pancreatitis Post-menopausal Recurrent acute pancreatitis SBP (spontaneous bacterial peritonitis) Smoker Transaminitis Home Medications duloxetine 60 mg capsule,delayed release 60 mg PO DAILY depression 12/10/21 [History Last Taken 03/10/22] ursodiol 300 mg capsule 300 mg PO BID gallbladder 12/10/21 [History Last Taken 03/10/22] ondansetron 4 mg disintegrating tablet 4 mg PO Q8H PRN nausea and vomiting #14 tabs 02/09/22 [Rx Last Taken 3 Days Ago ~03/07/22] famotidine 20 mg tablet 20 mg PO BID #60 tabs 02/20/22 [Rx Last Taken 03/09/22] rifaximin 550 mg tablet (Xifaxan) 550 mg PO BID #60 tabs 02/20/22 [Rx Last Taken 03/10/22] gabapentin 300 mg capsule 900 mg PO TID nerve pain 03/10/22 [History Last Taken 03/09/22] midodrine 5 mg tablet 10 mg PO TID blood pressure 03/10/22 [History Last Taken 03/10/22] lancets #100 ea 05/02/22 [Rx Last Taken Unknown] needle (disp) #500 ea 05/02/22 [Rx Last Taken Unknown] alprazolam 0.25 mg tablet 0.25 mg PO BID 08/02/22 [History Last Taken Unknown] lactulose 10 gram/15 mL oral solution 30 ml PO 3XD cirrhosis 08/02/22 [History Last Taken Unknown] pantoprazole 40 mg tablet,delayed release 40 mg PO DAILY 08/02/22 [History Last Taken Unknown] furosemide 20 mg tablet (Lasix) 40 mg PO DAILY 08/15/22 [History Last Taken Unknown] spironolactone 25 mg tablet 50 mg PO DAILY 08/15/22 [History Last Taken Unknown] insulin glargine 100 unit/mL (3 mL) subcutaneous pen (Lantus Solostar U-100 Insulin) 55 unit (0.55 mL) subcut DAILY #18 mL 08/20/22 [Rx Last Taken Unknown] blood sugar diagnostic (OneTouch Ultra Test strips) #100 ea 10/07/22 [Rx Last Taken Unknown] blood-glucose meter (OneTouch Ultra2 Meter) #1 ea 10/07/22 [Rx Last Taken Unknown] flash glucose sensor (FreeStyle Jevon 2 Sensor kit) #2 ea 10/22/22 [Rx Last Taken Unknown] Dexcom G6 Sensor (blood-glucose sensor) #3 ea 11/16/22 [Rx Last Taken Unknown] Omnipod 5 G6 Intro Kit (Gen 5) subcutaneous cartridge with controller (insulin pump cart,auto,BT-cntr) #1 ea 11/16/22 [Rx Last Taken Unknown] insulin aspart U-100 100 unit/mL (3 mL) subcutaneous pen (Novolog FlexPen U-100 Insulin aspart) 1 sliding scale dose subcut TID 12/27/22 [History Last Taken Unknown] ondansetron 4 mg disintegrating tablet 4 mg PO TID PRN nausea and vomiting #21 tabs 12/27/22 [Rx Last Taken Unknown] oxycodone-acetaminophen 5 mg-325 mg tablet (Percocet) 1 tab PO Q6H PRN pain 5 days #20 tabs 12/27/22 [Rx Last Taken Unknown] Allergy/AdvReac Type Severity Reaction Status Date / Time azithromycin [From Zithromax] AdvReac Diarrhea Verified 11/16/22 13:07 codeine AdvReac Nausea Verified 11/16/22 13:07 promethazine [From Phenergan] AdvReac Vomiting Verified 11/16/22 13:07 Family History Father Cancer Lung CA with tobacco use history. Heart disease Mother Cancer Hx breast CA. Diabetes Hypertension Other Alcoholic cirrhosis of liver with ascites Breast cancer High cholesterol Liver disease Osteoporosis Skin cancer Surgical History H/O breast augmentation H/O: knee surgery Previous section S/P tonsillectomy and adenoidectomy Social History housing: other details: Lives at home, her 15, 16 year old children live with her. 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 substance use type: does not use what type of physical activity do you participate in: none ROS ROS ED Constitutional Constitutional ED: Denies chills or fever(s) Eyes Eyes: Denies change in vision ENT ENT ED: Denies sore throat Cardiovascular Cardiovascular: Denies chest pain Respiratory/Chest Respiratory/Chest: Denies cough or dyspnea Gastrointestinal Gastrointestinal: Denies abdominal pain, diarrhea, nausea or vomiting Genitourinary Genitourinary ED: Denies dysuria Musculoskeletal Musculoskeletal: Reports back pain Integumentary Denies Abrasions or rash Neurologic Neurologic: Denies headache(s) Hematologic/Lymphatic Hematologic/Lymphatic: Denies easy bleeding or easy bruising EXAM Physical Exam Const Vital Signs: 12/27/22 02:22 12/27/22 03:37 12/27/22 04:20 Temperature 97.6 F L Temperature Source Oral Pulse Rate 77 87 92 Respiratory Rate 16 16 16 Blood Pressure 130/87 H 124/77 H 139/89 H Blood Pressure Mean 101 92 105 Pulse Ox 92 90 90 Oxygen Delivery Method Room Air Room Air Room Air Positive well nourished and well developed General Appearance ED: well developed HEENT HEENT Narrative: Normocephalic atraumatic Eyes PERRL and EOMs intact bilaterally Neck supple Resp normal respiratory effort and clear to auscultation bilaterally Cardio regular rate and regular rhythm GI normal to inspection, nondistended, normoactive bowel sounds, non-tender, non- distended and no masses Auscultation: normoactive bowel sounds Palpation: soft Back/Spine Back/Spine Narrative: No bony deformity or step-off of the cervical or thoracic or lumbar spine. However there is pain with palpation along the midline of the mid to upper lumbar region. No saddle anesthesia. Negative straight leg raise. No clonus or Babinski. Patellar reflexes are plus 1 out of 4 bilaterally. Extremity normal to inspection Extremity Narrative: Pelvis is stable there is no shortening or external rotation of either lower extremity Neuro oriented x3 and CN's II-XII intact bilaterally Sensorium / Orientation: alert Psych mental status grossly normal Skin no rashes or lesions noted Skin Narrative: No abrasions or ecchymosis noted MDM MDM MDM Narrative Medical decision making narrative: Patient presented to the ER with stable vital signs and reported a mechanical fall. Therefore there is no need for cardiac or syncope work-up. She did not strike her head or have loss of consciousness nor does she report bleeding disorder or blood thinner use so underlying concern for skull fracture versus epidural or subdural hematoma is low. Also she denies any loss of bowel or bladder control or IV drug use of my concern for cauda equina or epidural abscess is low. At this time most likely differential is a compression fracture versus spondylolisthesis based on the mechanism of the injury. X-rays were obtained and do confirm a grade 125% compression fracture to the L1 vertebrae without retropulsion. At this time as patient is closed and neurovascularly in tact without signs of neuro claudication and x-ray does not show retropulsion there is no need for emergent orthopedic/neurosurgery evaluation. Patient can be given symptomatic pain medication and discharged home. The patient was noted able to walk to and from the bathroom in the ER with steady gait. History & Record Review Discussion w/independent historian: Patient and Family Radiography Diagnostic Testing: Clinical Impression(s) from Imaging Studies Lumbar Spine X-Ray 12/27/22 02:56 IMPRESSION: L1 vertebral compression fracture, probably acute. Electronically Signed: Louis Lee MD at 4:06 EDT Reading Location ID and State: [facility] / [place] , Service support , X-ray of the lumbar spine as interpreted by the emergency medicine physician reveals a grade 1 L1 compression fracture Discharge Plan Triage Chief Complaint: Back ED Provider: Jayme Cloud Dx/Rx/DC Orders Clinical Impression: Closed compression fracture of L1 vertebra, History of diabetes mellitus Instructions: Compression Fx Prescriptions: New oxycodone-acetaminophen [Percocet] 5-325 mg tablet 1 tab PO Q6H PRN (Reason: pain) 5 Days Qty: 20 0RF ondansetron 4 mg tablet,disintegrating 4 mg PO TID PRN (Reason: nausea and vomiting) Qty: 21 0RF No Action alprazolam 0.25 mg tablet 0.25 mg PO BID pantoprazole 40 mg tablet,delayed release (DR/EC) 40 mg PO DAILY (DME) Omnipod 5 G6 Intro Kit (Gen 5) Cartridge See Rx Instructions .Route Qty: 1 0RF Rx Instructions: As directed (DME) Dexcom G6 Sensor Device See Rx Instructions .Route Qty: 3 6RF Rx Instructions: As directed ursodiol 300 mg capsule 300 mg PO BID Patient Comments: take 1 capsule by mouth twice a day duloxetine 60 mg capsule,delayed release(DR/EC) 60 mg PO DAILY Patient Comments: take 1 capsule by mouth once daily ondansetron 4 mg tablet,disintegrating 4 mg PO Q8H PRN (Reason: nausea and vomiting) Qty: 14 0RF famotidine 20 mg Tablet 20 mg PO BID Qty: 60 1RF Xifaxan 550 mg Tablet 550 mg PO BID Qty: 60 1RF midodrine 5 mg tablet 10 mg PO TID Patient Comments: TAKE TWO TABLETS (10 MG)CBY MOUTH 3 TIMES A DAY WITH MEALS gabapentin 300 mg capsule 900 mg PO TID Patient Comments: take 1 capsule by mouth three times a day as directed lactulose 10 gram/15 mL solution 30 ml PO 3XD Patient Comments: TAKE 30 ML BY MOUTH 4CTIMES A DAY (DME) lancets Misc See Rx Instructions .Route Qty: 100 0RF Rx Instructions: As directed (DME) needle (disp) Needle See Rx Instructions .Route Qty: 500 0RF Rx Instructions: As directed spironolactone 25 mg tablet 50 mg PO DAILY furosemide [Lasix] 20 mg tablet 40 mg PO DAILY insulin aspart U-100 [Novolog FlexPen U-100 Insulin] 100 unit/mL (3 mL) insulin pen 1 sliding scale dose subcut TID insulin glargine [Lantus Solostar U-100 Insulin] 100 unit/mL (3 mL) insulin pen 55 unit subcut DAILY Qty: 18 3RF (DME) blood-glucose meter [OneTouch Ultra2 Meter] Misc See Rx Instructions .Route Qty: 1 0RF Rx Instructions: As directed (DME) OneTouch Ultra Test Strip See Rx Instructions .Route Qty: 100 5RF Rx Instructions: TID (DME) FreeStyle Jevon 2 Sensor Kit See Rx Instructions .Route Qty: 2 1RF Rx Instructions: As directed Stand Alone Forms: ED Work / School Excuse Primary Care Provider: Valerie Mullins Referrals: Valerie Mullins MD [Primary Care Provider] - Luis Lassiter DO [Med Staff - Active Staff] - Activity Restrictions/Additional Instructions: Please follow-up with the orthopedic spine surgeon to discuss further testing and/or treatment options regarding your L1 compression fracture. If you have any further concerns please return to the ER for repeat evaluation Disposition Disposition: Home, Self Care
[2022-12-27] MEDS: Acetaminophen 500 MG Tablet 1000 MG PO (05:05)
== END 2022-12-27 05:47 | disposition home or self-care (01) ==
PROVIDERS: Emergency Provider Emergency Medicine; PCP Internal Medicine; Visit Provider Emergency Medicine
DX: S32.019A Unspecified fracture of first lumbar vertebra, initial encounter for closed fracture (principal); F10.20 Alcohol dependence, uncomplicated; E11.9 Type 2 diabetes mellitus without complications; Z79.4 Long term (current) use of insulin; W01.0XXA Fall on same level from slipping, tripping and stumbling without subsequent striking against object, initial encounter; I10 Essential (primary) hypertension; E78.5 Hyperlipidemia, unspecified; Y90.8 Blood alcohol level of 240 mg/100 ml or more; Z79.899 Other long term (current) drug therapy; Z86.16 Personal history of COVID-19; Z87.891 Personal history of nicotine dependence
CPT/HCPCS: 72100; 96374; 96375; 99284; A4216; J2405

== ENCOUNTER 2022-12-29 14:53 | Inpatient (IN) | payer MEDICAID, SELFPAY ==
[2022-12-29 14:54] VITALS: BP 124/66; PULSE 89; RESP 16; TEMP 36.3; O2SAT 98; BMI 21.5
--- NOTE | 2022-12-29 16:43 | EKG12_ITS ---
Test Reason : Blood Pressure : / mmHG Vent. Rate : 082 BPM Atrial Rate : 082 BPM P-R Int : 138 ms QRS Dur : 078 ms QT Int : 352 ms P-R-T Axes : 031 052 031 degrees QTc Int : 411 ms Normal sinus rhythm Normal ECG Confirmed by EDUARDO BECK, SIN ([id number]), development editor AMAYA PITTMAN ([id number]) on 12/31/2022 1:29:53 PM Referred By: FELIX Confirmed By:TELMA CLARK MD
--- NOTE | 2022-12-29 16:44 | EX.ED.DYSGE1 ---
HPI History of Present Illness Chief Complaint: Nausea/Vomiting Detail of Chief Complaint: Nausea and vomiting Informant: patient Narrative Narrative: Patient presents to the emergency department with complaint of nausea and vomiting that started 2 days ago. Patient states that she was seen on December 27 after she had a fall. She was diagnosed with an L1 compression fracture. Patient was sent home with Zofran and oxycodone. Patient states that she started vomiting and at one point was thrown up about every 15 minutes. She has not taken any pain medicine since this morning. She complains of pain in her back. She denies fever or recent illness. She denies diarrhea. Patient consulted with her primary care physician and was referred to the ER for evaluation concern for dehydration. Today she started having abdominal discomfort and cramping. [facility] Medical History Alcoholic cirrhosis of liver with ascites Alcoholism Anxiety Asthma Breast implant status Chronic diarrhea Closed head injury COVID-19 Diabetes Fatty liver Gastritis and duodenitis H. pylori infection History of alcohol abuse HLD (hyperlipidemia) HTN (hypertension) Hypertension Malnutrition Migraines Nicotine abuse Pancreatitis Post-menopausal Recurrent acute pancreatitis SBP (spontaneous bacterial peritonitis) Smoker Transaminitis Home Medications duloxetine 60 mg capsule,delayed release 60 mg PO DAILY depression 12/10/21 [History Last Taken 03/10/22] ursodiol 300 mg capsule 300 mg PO BID gallbladder 12/10/21 [History Last Taken 03/10/22] ondansetron 4 mg disintegrating tablet 4 mg PO Q8H PRN nausea and vomiting #14 tabs 02/09/22 [Rx Last Taken 3 Days Ago ~03/07/22] famotidine 20 mg tablet 20 mg PO BID #60 tabs 02/20/22 [Rx Last Taken 03/09/22] rifaximin 550 mg tablet (Xifaxan) 550 mg PO BID #60 tabs 02/20/22 [Rx Last Taken 03/10/22] gabapentin 300 mg capsule 900 mg PO TID nerve pain 03/10/22 [History Last Taken 03/09/22] midodrine 5 mg tablet 10 mg PO TID blood pressure 03/10/22 [History Last Taken 03/10/22] lancets #100 ea 05/02/22 [Rx Last Taken Unknown] needle (disp) #500 ea 05/02/22 [Rx Last Taken Unknown] alprazolam 0.25 mg tablet 0.25 mg PO BID PRN anxiety 08/02/22 [History Last Taken Unknown] lactulose 10 gram/15 mL oral solution 30 ml PO 3XD cirrhosis 08/02/22 [History Last Taken Unknown] pantoprazole 40 mg tablet,delayed release 40 mg PO DAILY 08/02/22 [History Last Taken Unknown] furosemide 20 mg tablet (Lasix) 40 mg PO DAILY 08/15/22 [History Last Taken Unknown] spironolactone 25 mg tablet 50 mg PO DAILY 08/15/22 [History Last Taken Unknown] insulin glargine 100 unit/mL (3 mL) subcutaneous pen (Lantus Solostar U-100 Insulin) 55 unit (0.55 mL) subcut DAILY #18 mL 08/20/22 [Rx Last Taken Unknown] blood sugar diagnostic (ProfitPointTouch Ultra Test strips) #100 ea 10/07/22 [Rx Last Taken Unknown] blood-glucose meter (ProfitPointTouch Ultra2 Meter) #1 ea 10/07/22 [Rx Last Taken Unknown] flash glucose sensor (FreeStyle Jevon 2 Sensor kit) #2 ea 10/22/22 [Rx Last Taken Unknown] Dexcom G6 Sensor (blood-glucose sensor) #3 ea 11/16/22 [Rx Last Taken Unknown] Omnipod 5 G6 Intro Kit (Gen 5) subcutaneous cartridge with controller (insulin pump cart,auto,BT-cntr) #1 ea 11/16/22 [Rx Last Taken Unknown] insulin aspart U-100 100 unit/mL (3 mL) subcutaneous pen (Novolog FlexPen U-100 Insulin aspart) 1 sliding scale dose subcut TID 12/27/22 [History Last Taken Unknown] Allergy/AdvReac Type Severity Reaction Status Date / Time azithromycin [From Zithromax] AdvReac Diarrhea Verified 12/29/22 14:57 codeine AdvReac Nausea Verified 12/29/22 14:57 promethazine [From Phenergan] AdvReac Vomiting Verified 12/29/22 14:57 Family History Father Cancer Lung CA with tobacco use history. Heart disease Mother Cancer Hx breast CA. Diabetes Hypertension Other Alcoholic cirrhosis of liver with ascites Breast cancer High cholesterol Liver disease Osteoporosis Skin cancer Surgical History H/O breast augmentation H/O: knee surgery Previous section S/P tonsillectomy and adenoidectomy Social History housing: other details: Lives at home, her 15, 16 year old children live with her. 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 substance use type: does not use what type of physical activity do you participate in: none ROS ROS ED Review of Systems ROS Unobtainable: other Constitutional Constitutional ED: Reports lethargy; Denies chills, fever(s), sweats or weight loss Eyes Eyes: Denies blurry vision, change in vision or diplopia ENT ENT ED: Denies rhinorrhea or sore throat Cardiovascular Cardiovascular: Denies chest pain, orthopnea or racing heartbeat Respiratory/Chest Respiratory/Chest: Denies cough, dyspnea, dyspnea on exertion, orthopnea or sputum Gastrointestinal Gastrointestinal: Reports abdominal pain, nausea and vomiting; Denies diarrhea Genitourinary Genitourinary ED: Denies dysuria, hematuria or urinary frequency Musculoskeletal Musculoskeletal: Reports back pain; Denies arthralgias, myalgias or neck pain Integumentary Denies abscess, Abrasions or rash Neurologic Neurologic: Denies headache(s) or weakness Psychiatric Psychiatric: Denies anxiety, depression or suicidal thoughts Endocrine Endocrinology: Denies polydipsia, polyphagia or polyuria Hematologic/Lymphatic Hematologic/Lymphatic: Denies easy bleeding, easy bruising or lymphadenopathy Allergic/Immunologic Allergic/Immunologic ED: Denies mouth swelling, tongue swelling or urticaria EXAM Physical Exam Const Vital Signs: 12/29/22 14:54 12/29/22 18:58 12/29/22 21:58 Temperature 97.4 F L Temperature Source Temporal Pulse Rate 89 85 75 Respiratory Rate 16 18 18 Blood Pressure 124/66 H 129/90 H 153/90 H Blood Pressure Mean 85 103 111 Pulse Ox 98 95 100 Oxygen Delivery Method Room Air Room Air Positive well nourished and well developed General Appearance ED: well developed and NAD HEENT Reports TM's clear and moist mucous membranes normocephalic and atraumatic; Negative for trauma or tenderness Tympanic Membrane ED: Yes TM's clear Eyes PERRL and EOMs intact bilaterally General Eye ED: Negative for pale conjunctiva or scleral icterus Neck no lymphadenopathy, supple and no JVD General: Negative for tenderness Chest Wall inspection of chest normal and palpation of chest normal Chest: Negative for tenderness Resp normal respiratory effort and clear to auscultation bilaterally Effort and Inspection: Negative for respiratory distress or pain with movement Auscultation: Negative for rhonchi, wheezes or diminished lung sounds Cardio regular rate, regular rhythm, S1 normal heart sound, S2 normal heart sound and no murmurs Peripheral Pulses: pulses 2+ throughout GI normal to inspection, nondistended, normoactive bowel sounds, soft to palpation, non-distended and no masses GI Narrative: Mild diffuse tenderness. No rebound, rigidity, or pedal signs. No mass palpated. Back/Spine no CVA tenderness and no thoracic nor lumbar tenderness Extremity normal to inspection General Extremety ED: Negative for edema General Extremity: Negative for edema Neuro oriented x3, CN's II-XII intact bilaterally, no sensory deficits noted and gait normal Sensorium / Orientation: awake, alert, oriented to person, oriented to place and oriented to time Motor Exam: strength 5/5 throughout and strength abnormal Psych mental status grossly normal Skin no rashes or lesions noted and no wounds MDM MDM MDM Narrative Medical decision making narrative: Patient presents with vomiting. In the differential would be medication side effect versus viral etiology versus intra-abdominal acute process which I feel is less likely. She does have remote history of pancreatitis. Patient on transplant program at [facility] for liver transplant due to cirrhosis of the liver from alcohol abuse. IV line was to be established. Patient will be given a liter of the same fluid bolus. She will be given Zofran and morphine for pain. Patient had a CBC with differential that showed a white count of 5.7 with hemoglobin 12.9 and platelet count of 145. Chemistries unremarkable. LFTs unremarkable. BUN was 11 and creatinine 1.07. Lipase 19. Patient continues to complain of pain was remedicated with morphine and Zofran. CT scan of the abdomen pelvis showed an ileus with stool retention. Patient continues to complain of pain. I ordered Bentyl 20 mg IM. Case will be discussed with hospitalist to evaluate patient for admission Lab Data Attestation: I reviewed the patient's lab results. Labs: Laboratory Results - last 24 hr 12/29/22 12/29/22 17:00 18:53 WBC 5.7 RBC 4.30 Hgb 12.9 Hct 38.7 MCV 90.0 MCH 30.0 MCHC 33.3 RDW Std Deviation 44.9 H RDW Coeff of Teressa 13.7 Plt Count 145 L MPV 9.4 Immature Gran % (Auto) 0.300 Neut % (Auto) 65.8 Lymph % (Auto) 21.8 [place] % (Auto) 8.6 Eos % (Auto) 2.8 Baso % (Auto) 0.7 Absolute Neuts (auto) 3.8 Absolute Lymphs (auto) 1.25 Nucleated RBC % 0 Sodium 128 L Potassium 3.1 L Chloride 89 L Carbon Dioxide 29.0 Anion Gap 10 BUN 11 Creatinine 1.07 H Estim Creat Clear Calc 60.19 Est GFR (MDRD) Af Amer 70 Est GFR (MDRD) Non-Af 58 L BUN/Creatinine Ratio 10.3 Glucose 321 H Calcium 9.8 Total Bilirubin 1.40 H AST 24 ALT 33 Alkaline Phosphatase 104 Troponin I High Sens < 3 L Total Protein 8.1 Albumin 4.2 Globulin 3.9 Albumin/Globulin Ratio 1.1 Lipase 19 POC Glucose 279 H Radiography Diagnostic Testing: Clinical Impression(s) from Imaging Studies Abdomen/Pelvis CT 12/29/22 20:42 IMPRESSION: Nonspecific ileus with diffuse fecal retention in the colon. Enlarged liver with findings consistent with hepatic cirrhosis.. Borderline splenic enlargement and varices consistent with portal hypertension No evidence for small bowel obstruction or acute appendicitis Other findings as above Electronically Signed: Jose Gomez MD at 21:25 EDT , EKG Initial EKG: Attestation: I personally reviewed and interpreted this EKG as follows: Comments: Sinus rhythm with a rate of 82 bpm with no acute ST segment changes Discharge Plan Dx/Rx/DC Orders Clinical Impression: Hyponatremia, Ileus, History of cirrhosis of liver, Abdominal pain, Hypokalemia Disposition Disposition: Acute Care Hospital [facility]
[2022-12-29] MEDS: 0.9% Normal Saline 1,000 ML 1000 ML IV (17:01)
[2022-12-29] MEDS: Ondansetron 4 MG/2 ML Vial IV (17:01)
[2022-12-29] MEDS: Morphine 4 MG/ML Syringe IV ×2 (17:01→21:05)
[2022-12-29 17:19] LABS: Absolute Lymphocyte Count 1.25 X10^3/uL (0.83-4.51); Absolute Neutrophil Count 3.8 X10^3/uL (2.0-7.7); Basophil# 0.04 X10^3/uL; Basophil% 0.7 % (0-1); Eosinophil# 0.16 X10^3/uL; Eosinophils% 2.8 % (0-5); Hematocrit 38.7 % (37-47); Hemoglobin 12.9 g/dL (12.0-15.0); Lymphocyte # 1.25 X10^3/ul (0.83-4.51); Lymphocyte % 21.8 % (19-41); Mean Corp Hgb Conc 33.3 g/dL (32-36); Mean Platelet Vol. 9.4 fl (6.2-12.0); Monocyte# 0.49 X10^3/uL; Monocyte% 8.6 % (0-10); NRBC Flagged by Analyzer 0 % (0-5); Neutrophil # 3.77 X10^3/uL (2.7-7.7); Neutrophil % 65.8 % (47-70); Platelet Count 145 K/mm3 (150-450); RBC Distribution Width CV 13.7 % (11.6-14.6); RBC Distribution Width SD 44.9 fl (35.1-43.9); White Blood Count 5.7 K/mm3 (4.4-11.0)
[2022-12-29 17:35] LABS: ALB/GLOB Ratio 1.1 RATIO (0.9-2.4); AST(SGOT) 24 U/L (15-37); Alanine Aminotransfer ALT/SGPT 33 U/L (13-56); Albumin, Serum 4.2 g/dL (3.2-5.0); Alkaline Phosphatase 104 U/L (45-117); Anion Gap 10 (5-15); BUN 11 mg/dL (7-18); BUN/Creat Ratio 10.3 RATIO (10-20); Calcium,Total 9.8 mg/dL (8.5-10.1); Chloride 89 mmol/L (98-107); Creatinine, Serum 1.07 mg/dL (0.55-1.02); EST Glomerular Filtration Rate 58 mL/min (>60); Est Glom Filt Rate - Afr Amer 70 mL/min (>60); Estimated Creatinine Clearance 60.19 ml/min; Globulin 3.9 g/dL (2.2-4.2); Glucose 321 mg/dL (74-106); Lipase 19 U/L (13-75); Potassium 3.1 mmol/L (3.5-5.1); Protein, Total 8.1 g/dL (6.4-8.2); Sodium Level 128 mmol/L (136-145); Troponin-I HS < 3 pg/mL (3.0-54.0)
[2022-12-29] MEDS: Potassium Chloride Oral Tablet 20 MEQ 40 MEQ PO (17:47)
[2022-12-29 18:58] VITALS: BP 129/90; PULSE 85; RESP 18; O2SAT 95
--- NOTE | 2022-12-29 19:02 | CM.ED ---
Social Work SW performed chart review, HCPOA on file since 2021 and LW on file since 2022. Patient's identified HCPOAs are Jayme Lea and alternate is Theresa Dawson MSW, JOSH
[2022-12-29 19:11] LABS: Bedside Glucose 279 mg/dL (74-106)
--- NOTE | 2022-12-29 20:42 | CT_ITS ---
STUDY: CT ABDOMEN AND PELVIS WITHOUT CONTRAST REASON FOR EXAM: Female, 47 years old. abdominal pain RADIATION DOSAGE (If Supplied By Facility): CTDIvol = ( 6.10 ) mGy, DLP = ( 288.06 ) mGycm TECHNIQUE: Transaxial images were obtained from the dome of the diaphragm to the symphysis pubis without oral contrast, and without intravenous contrast. Sagittal and coronal images were reconstructed. Individualized dose optimization techniques were used for this CT. COMPARISON: October 01, 2021 FINDINGS: The visualized lung bases are unremarkable. The visualized portions of the heart are within normal limits. Bilateral breast prostheses are noted Liver is enlarged and mildly lobular consistent with hepatic cirrhosis. Attenuation is homogeneous. Bile ducts are not dilated. Contracted thick-walled gallbladder without calcified stones Borderline splenic enlargement. Mild gastroesophageal and perigastric varices consistent with portal hypertension. Normal pancreas. Normal bilateral adrenal glands. Normal right kidney. Normal left kidney. Normal visualized stomach. Mild ileus with diffuse fecal retention in the colon. Mild diverticular changes of the colon without evidence for acute diverticulitis No evidence for acute appendicitis. Mild atherosclerotic change of the aorta without evidence for aneurysm. Normal inferior vena cava. Normal retroperitoneum. Poorly distended thick walled bladder likely of no significance Normal abdominal wall. Lumbar spine demonstrates mild spondylosis. Old compression fracture of L1 CT/Abdomen/Pelvis without Cont IMPRESSION: Nonspecific ileus with diffuse fecal retention in the colon. Enlarged liver with findings consistent with hepatic cirrhosis.. Borderline splenic enlargement and varices consistent with portal hypertension No evidence for small bowel obstruction or acute appendicitis Other findings as above Electronically Signed: Jose Gomez MD at 21:25 EDT ,
[2022-12-29] MEDS: Dicyclomine 20 MG/2 ML Vial IM (21:54)
[2022-12-29 21:58] VITALS: BP 153/90; PULSE 75; RESP 18; O2SAT 100
--- NOTE | 2022-12-29 23:17 | HP.PCM.HOS_ITS ---
HPI - General General Date of Admission: 12/29/22 HPI Narrative DAVID TATE, is a 47 F who presents with nausea, vomiting, and abdominal pain. This started yesterday and then became worse today. On 12/27/2022 she presented to the ER with back pain and was found to have an L1 mild compression fracture after a fall. This was a mechanical fall and she was discharged home on narcotics which she had taken about 7 tablets of prior to this afternoon when she started developing her nausea and vomiting. Based on the CT scan it does appear to be potentially narcotic induced especially in the setting of the fact that she had run out of her lactulose and had not been taking it for couple of days. No fevers or chills and she denies any sick contacts at home. FORMERLY [facility] Medical History Alcoholic cirrhosis of liver with ascites Alcoholism Anxiety Asthma Breast implant status Chronic diarrhea Closed head injury COVID-19 Diabetes Fatty liver Gastritis and duodenitis H. pylori infection History of alcohol abuse HLD (hyperlipidemia) HTN (hypertension) Hypertension Malnutrition Migraines Nicotine abuse Pancreatitis Post-menopausal Recurrent acute pancreatitis SBP (spontaneous bacterial peritonitis) Smoker Transaminitis Home Medications duloxetine 60 mg capsule,delayed release 60 mg PO DAILY depression 12/10/21 [History Last Taken 03/10/22] ursodiol 300 mg capsule 300 mg PO BID gallbladder 12/10/21 [History Last Taken 03/10/22] ondansetron 4 mg disintegrating tablet 4 mg PO Q8H PRN nausea and vomiting #14 tabs 02/09/22 [Rx Last Taken 3 Days Ago ~03/07/22] famotidine 20 mg tablet 20 mg PO BID #60 tabs 02/20/22 [Rx Last Taken 03/09/22] rifaximin 550 mg tablet (Xifaxan) 550 mg PO BID #60 tabs 02/20/22 [Rx Last Taken 03/10/22] gabapentin 300 mg capsule 900 mg PO TID nerve pain 03/10/22 [History Last Taken 03/09/22] midodrine 5 mg tablet 10 mg PO TID blood pressure 03/10/22 [History Last Taken 03/10/22] lancets #100 ea 05/02/22 [Rx Last Taken Unknown] needle (disp) #500 ea 05/02/22 [Rx Last Taken Unknown] alprazolam 0.25 mg tablet 0.25 mg PO BID PRN anxiety 08/02/22 [History Last Taken Unknown] lactulose 10 gram/15 mL oral solution 30 ml PO 3XD cirrhosis 08/02/22 [History Last Taken Unknown] pantoprazole 40 mg tablet,delayed release 40 mg PO DAILY 08/02/22 [History Last Taken Unknown] furosemide 20 mg tablet (Lasix) 40 mg PO DAILY 08/15/22 [History Last Taken Unknown] spironolactone 25 mg tablet 50 mg PO DAILY 08/15/22 [History Last Taken Unknown] insulin glargine 100 unit/mL (3 mL) subcutaneous pen (Lantus Solostar U-100 Insulin) 55 unit (0.55 mL) subcut DAILY #18 mL 08/20/22 [Rx Last Taken Unknown] blood sugar diagnostic (SaludFÁCILTouch Ultra Test strips) #100 ea 10/07/22 [Rx Last Taken Unknown] blood-glucose meter (SaludFÁCILTouch Ultra2 Meter) #1 ea 10/07/22 [Rx Last Taken Unknown] flash glucose sensor (FreeStyle Jevon 2 Sensor kit) #2 ea 10/22/22 [Rx Last Taken Unknown] Dexcom G6 Sensor (blood-glucose sensor) #3 ea 11/16/22 [Rx Last Taken Unknown] Omnipod 5 G6 Intro Kit (Gen 5) subcutaneous cartridge with controller (insulin pump cart,auto,BT-cntr) #1 ea 11/16/22 [Rx Last Taken Unknown] insulin aspart U-100 100 unit/mL (3 mL) subcutaneous pen (Novolog FlexPen U-100 Insulin aspart) 1 sliding scale dose subcut TID 12/27/22 [History Last Taken Unknown] Allergy/AdvReac Type Severity Reaction Status Date / Time azithromycin [From Zithromax] AdvReac Diarrhea Verified 12/29/22 14:57 codeine AdvReac Nausea Verified 12/29/22 14:57 promethazine [From Phenergan] AdvReac Vomiting Verified 12/29/22 14:57 Family History Father Cancer Lung CA with tobacco use history. Heart disease Mother Cancer Hx breast CA. Diabetes Hypertension Other Alcoholic cirrhosis of liver with ascites Breast cancer High cholesterol Liver disease Osteoporosis Skin cancer Surgical History H/O breast augmentation H/O: knee surgery Previous section S/P tonsillectomy and adenoidectomy Social History housing: other details: Lives at home, her 15, 16 year old children live with her. 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 substance use type: does not use what type of physical activity do you participate in: none ROS Constitutional Constitutional: Denies chills, fatigue, fever(s) or malaise Eyes Eyes: Denies blurry vision ENT HEENT: Denies headache(s) or nasal discharge Cardiovascular Cardiovascular: Denies chest pain, dyspnea on exertion or syncope Respiratory/Chest Respiratory/Chest: Denies cough, shortness of breath at rest or shortness of breath with exertion Gastrointestinal Gastrointestinal: Reports abdominal pain, constipation, nausea and vomiting; Denies diarrhea Genitourinary Genitourinary: Denies dysuria Neurologic Neurologic: Denies focal weakness, numbness or tremor(s) Psychiatric Psychiatric: Denies anxiety or depression Vital Signs Vital Signs Vital Signs: 12/29/22 14:54 12/29/22 18:58 12/29/22 21:58 Temperature 97.4 F L Temperature Source Temporal Pulse Rate 89 85 75 Respiratory Rate 16 18 18 Blood Pressure 124/66 H 129/90 H 153/90 H Blood Pressure Mean 85 103 111 Pulse Ox 98 95 100 Oxygen Delivery Method Room Air Room Air Weight Weight: 133 lb 7 oz Body Mass Index (BMI) 21.5 Physical Exam Narrative General: Alert, Oriented x3, Cooperative, No apparent distress HEENT: Atraumatic, PERRLA, EOMI, Normocephalic Oral: Moist Mucosa Neck: Supple, No JVD Lungs: Clear to auscultation, Normal air movement, No rhonchi, No wheeze, No rales Cardiovascular: Regular rate, Regular Rhythm, Normal S1, Normal S2, No murmurs Abdomen: Soft, mild diffuse tender, slightly-Distended, No Hepato-splenomegaly Extremities: No edema, Capillary Refill Less than 3 Seconds Skin: No rashes, No breakdown Musculoskeletal: No Tenderness to Palpation of Joints or Extremities Neurological: Cranial nerves II-XII grossly intact, Motor Exam 5/5 strength throughout, Sensory exam intact to light touch and pain Psych/Mental Status: Normal Affect, Appropriate Results Lab / Micro Data 12/29/22 17:00 12/29/22 17:00 Labs: Laboratory Results - last 24 hr 12/29/22 17:00: WBC 5.7, RBC 4.30, Hgb 12.9, Hct 38.7, MCV 90.0, MCH 30.0, MCHC 33.3, RDW Std Deviation 44.9 H, RDW Coeff of Teressa 13.7, Plt Count 145 L, MPV 9.4, Immature Gran % (Auto) 0.300, Neut % (Auto) 65.8, Lymph % (Auto) 21.8, Sharp % (Auto) 8.6, Eos % (Auto) 2.8, Baso % (Auto) 0.7, Absolute Neuts (auto) 3.8, Absolute Lymphs (auto) 1.25, Nucleated RBC % 0, Sodium 128 L, Potassium 3.1 L, Chloride 89 L, Carbon Dioxide 29.0, Anion Gap 10, BUN 11, Creatinine 1.07 H, Estim Creat Clear Calc 60.19, Est GFR (MDRD) Af Amer 70, Est GFR (MDRD) Non-Af 58 L, BUN/Creatinine Ratio 10.3, Glucose 321 H, Calcium 9.8, Total Bilirubin 1.40 H, AST 24, ALT 33, Alkaline Phosphatase 104, Troponin I High Sens < 3 L, Total Protein 8.1, Albumin 4.2, Globulin 3.9, Albumin/Globulin Ratio 1.1, Lipase 19 12/29/22 18:53: POC Glucose 279 H Radiology Impression Abdomen/Pelvis CT 12/29/22 20:42 IMPRESSION: Nonspecific ileus with diffuse fecal retention in the colon. Enlarged liver with findings consistent with hepatic cirrhosis.. Borderline splenic enlargement and varices consistent with portal hypertension No evidence for small bowel obstruction or acute appendicitis Other findings as above Electronically Signed: Jose oGmez MD at 21:25 EDT , Assessment & Plan Assessment/Plan (1) Ileus: PLAN: Plan 1. Narcotic induced constipation secondary to L1 compression fracture ? We will discontinue her narcotics and place her on a lidocaine patch ? We will resume her p.o. lactulose as well as other modalities to ease her constipation next ? Continue with Zofran 2. Alcoholic cirrhosis/anemia of chronic disease ? She has not been needing paracentesis as frequently ? Can resume her home lactulose as well as Tifaxin ? We will hold her Lasix and her spironolactone for today while we place her on IV fluids given her nausea and vomiting ? Can resume her midodrine as well as her GI prophylaxis given her varices with PPI and Pepcid 3. DM2 ? We will place her on a sliding scale insulin but hold her long-acting insulin secondary to her decreased p.o. intake and monitor ? We will make adjustments as necessary 4. Anxiety/depression ? Stable ? Can continue with her home medications DVT: Ambulation 76 minutes was spent on direct patient care, including documentation as well as chart review and collaboration with colleagues Charges/Coding Visit Charges Inpatient E&M: 05138 Init Hosp L3
[2022-12-29 23:19] VITALS: BP 145/87; PULSE 85; RESP 16; TEMP 37.2; O2SAT 96
[2022-12-29 23:40] VITALS: BMI 22.0
[2022-12-29 23:45] VITALS: BP 174/84; PULSE 86; RESP 16; TEMP 37; O2SAT 99
[2022-12-30] MEDS: Ondansetron ODT 4 MG Tablet PO ×2 (00:04→09:41)
[2022-12-30] MEDS: Lidocaine 5% Patch 1 PATCH TOPICAL ×2 (00:05→09:43)
[2022-12-30] MEDS: Senna/Docusate Sodium 1 Tablet 2 TABLET PO ×3 (00:05→21:15)
[2022-12-30] MEDS: Lactulose 20 GM/30 ML UDC PO ×4 (00:05→21:15)
[2022-12-30] MEDS: Famotidine 20 MG Tablet PO ×3 (00:06→21:15)
[2022-12-30] MEDS: Pantoprazole Sodium 40 MG Tablet PO ×2 (00:06→09:41)
[2022-12-30] MEDS: 0.9% Normal Saline 1,000 ML 75 ML IV (00:13)
[2022-12-30] MEDS: 0.9% Saline Lock 10 ML Syringe IV ×4 (00:13→21:30)
[2022-12-30] MEDS: ALPRAZolam 0.25 MG Tablet PO ×3 (00:35→21:36)
[2022-12-30] MEDS: Insulin Lispro 100 UNIT/ML INSULN.PEN SC ×5 (00:53→22:53)
[2022-12-30 01:01] LABS: Bedside Glucose 292 mg/dL (74-106)
[2022-12-30] MEDS: proCHLORPERazine 10 MG/2 ML Vial 5 MG IV (03:46)
[2022-12-30] MEDS: Amitriptyline 25 MG Tablet PO ×2 (03:47→21:30)
[2022-12-30 03:54] VITALS: BP 145/95; PULSE 107; RESP 16; TEMP 36.6; O2SAT 95
[2022-12-30] MEDS: Gabapentin 300 MG Capsule 900 MG PO ×3 (05:09→21:15)
[2022-12-30 06:43] LABS: Absolute Lymphocyte Count 1.04 X10^3/uL (0.83-4.51); Absolute Neutrophil Count 4.4 X10^3/uL (2.0-7.7); Basophil# 0.03 X10^3/uL; Basophil% 0.5 % (0-1); Eosinophil# 0.11 X10^3/uL; Eosinophils% 1.8 % (0-5); Hematocrit 35.5 % (37-47); Lymphocyte # 1.04 X10^3/ul (0.83-4.51); Lymphocyte % 16.8 % (19-41); Mean Corp Hgb Conc 33.8 g/dL (32-36); Mean Corpuscular Hgb 30.3 pg (27.0-32.0); Mean Corpuscular Volume 89.6 fL (81-99); Mean Platelet Vol. 9.6 fl (6.2-12.0); Monocyte# 0.57 X10^3/uL; Monocyte% 9.2 % (0-10); NRBC Flagged by Analyzer 0 % (0-5); Neutrophil # 4.41 X10^3/uL (2.7-7.7); Neutrophil % 71.2 % (47-70); Platelet Count 144 K/mm3 (150-450); RBC Distribution Width CV 13.7 % (11.6-14.6); RBC Distribution Width SD 44.6 fl (35.1-43.9); Red Blood Count 3.96 M/mm3 (4.2-5.4); White Blood Count 6.2 K/mm3 (4.4-11.0)
[2022-12-30 07:05] LABS: Bedside Glucose 306 mg/dL (74-106)
[2022-12-30 07:06] LABS: Anion Gap 10 (5-15); BUN 10 mg/dL (7-18); BUN/Creat Ratio 11.9 RATIO (10-20); Calcium,Total 9.1 mg/dL (8.5-10.1); Chloride 100 mmol/L (98-107); Creatinine, Serum 0.84 mg/dL (0.55-1.02); EST Glomerular Filtration Rate 77 mL/min (>60); Est Glom Filt Rate - Afr Amer 93 mL/min (>60); Estimated Creatinine Clearance 76.67 ml/min; Glucose 326 mg/dL (74-106); Potassium 3.7 mmol/L (3.5-5.1); Sodium Level 131 mmol/L (136-145)
--- NOTE | 2022-12-30 07:07 | PCM.PN.HOSP ---
Reason for Visit Reason for Visit: Diagnoses Ileus, unspecified (12/29/22) Subjective Subjective Have some BM. Abdomen still distended. Objective Data Objective Data Vital Signs: Vital Signs Temp Pulse Resp BP Pulse Ox O2 Del Method 36.6 C 107 H 16 145/95 H 95 Room Air 12/30/22 03:54 12/30/22 03:54 12/30/22 03:54 12/30/22 03:54 12/30/22 03:54 12/30/22 03:54 Oxygen Delivery Method Room Air Weight: 62.006 kg Body Mass Index (BMI) 22.0 Intake & Output: Intake and Output for Last 24 Hours 12/28/22 12/29/22 12/30/22 23:59 23:59 23:59 Intake Total 1000 / 1000 200 / 200 Balance 1000 / 1000 200 / 200 Lab / Micro Data 12/30/22 06:08 12/30/22 06:08 Labs: Laboratory Results - last 24 hr 12/29/22 17:00: WBC 5.7, RBC 4.30, Hgb 12.9, Hct 38.7, MCV 90.0, MCH 30.0, MCHC 33.3, RDW Std Deviation 44.9 H, RDW Coeff of Teressa 13.7, Plt Count 145 L, MPV 9.4, Immature Gran % (Auto) 0.300, Neut % (Auto) 65.8, Lymph % (Auto) 21.8, Alexander % (Auto) 8.6, Eos % (Auto) 2.8, Baso % (Auto) 0.7, Absolute Neuts (auto) 3.8, Absolute Lymphs (auto) 1.25, Nucleated RBC % 0, Sodium 128 L, Potassium 3.1 L, Chloride 89 L, Carbon Dioxide 29.0, Anion Gap 10, BUN 11, Creatinine 1.07 H, Estim Creat Clear Calc 60.19, Est GFR (MDRD) Af Amer 70, Est GFR (MDRD) Non-Af 58 L, BUN/Creatinine Ratio 10.3, Glucose 321 H, Calcium 9.8, Total Bilirubin 1.40 H, AST 24, ALT 33, Alkaline Phosphatase 104, Troponin I High Sens < 3 L, Total Protein 8.1, Albumin 4.2, Globulin 3.9, Albumin/Globulin Ratio 1.1, Lipase 19 12/29/22 18:53: POC Glucose 279 H 12/30/22 00:17: POC Glucose 292 H 12/30/22 06:08: WBC 6.2, RBC 3.96 L, Hgb 12.0, Hct 35.5 L, MCV 89.6, MCH 30.3, MCHC 33.8, RDW Std Deviation 44.6 H, RDW Coeff of Teressa 13.7, Plt Count 144 L, MPV 9.6, Immature Gran % (Auto) 0.500, Neut % (Auto) 71.2 H, Lymph % (Auto) 16.8 L, Alexander % (Auto) 9.2, Eos % (Auto) 1.8, Baso % (Auto) 0.5, Absolute Neuts (auto) 4.4, Absolute Lymphs (auto) 1.04, Nucleated RBC % 0, Sodium 131 L, Potassium 3.7, Chloride 100, Carbon Dioxide 21.0, Anion Gap 10, BUN 10, Creatinine 0.84, Estim Creat Clear Calc 76.67, Est GFR (MDRD) Af Amer 93, Est GFR (MDRD) Non-Af 77, BUN/Creatinine Ratio 11.9, Glucose 326 H, Calcium 9.1 12/30/22 06:43: POC Glucose 306 H Radiography Diagnostic Testing: Radiology Impression Abdomen/Pelvis CT 12/29/22 20:42 IMPRESSION: Nonspecific ileus with diffuse fecal retention in the colon. Enlarged liver with findings consistent with hepatic cirrhosis.. Borderline splenic enlargement and varices consistent with portal hypertension No evidence for small bowel obstruction or acute appendicitis Other findings as above Electronically Signed: Jose Gomez MD at 21:25 EDT , Physical Exam Const alert and no apparent distress HEENT head/scalp atraumatic and moist oral mucous membranes Resp normal respiratory effort, no retractions, no use of accessory muscles and clear to auscultation bilaterally Cardio regular rate, regular rhythm, S1 normal heart sound and S2 normal heart sound GI GI Narrative: distended. hypoactive BS. Extremity normal to inspection Assessment & Plan Assessment/Plan (1) Ileus: PLAN: Ileus but also w constipation. Likely complicated by narcotics, which have been held Back on lactulose Add metoclopramide encouraged ambulation. (2) Compression fracture of L1 lumbar vertebra: QUALIFIERS: Encounter type: subsequent encounter Fracture healing: with routine healing Qualified Code(s): S32.010D - Wedge compression fracture of first lumbar vertebra, subsequent encounter for fracture with routine healing PLAN: s/p fall check 25 OH d level. avoid narcotics given above lidoderm patch. short course of ketorolac PRN. PLAN: Plan Chronic conditions: Alcoholic cirrhosis/anemia of chronic disease? She has not been needing paracentesis as frequently? Can resume her home lactulose as well as Tifaxin? We will hold her Lasix and her spironolactone for today while we place her on IV fluids given her nausea and vomiting? Can resume her midodrine as well as her GI prophylaxis given her varices with PPI and Pepcid DM2? We will place her on a sliding scale insulin but hold her long-acting insulin secondary to her decreased p.o. intake and monitor? We will make adjustments as necessary Anxiety/depression? Stable? Can continue with her home medications DVT: Ambulation Charges/Coding Visit Charges Inpatient E&M: 50428 Subs Hosp L2
[2022-12-30 07:58] LABS: Vitamin D,25 Hydroxy 18.1 ng/mL
[2022-12-30] MEDS: DULoxetine Hcl 60 MG Capsule PO (09:30)
[2022-12-30] MEDS: Ursodiol 250 MG Tablet PO ×2 (09:30→18:06)
[2022-12-30] MEDS: rifAXIMin 550 MG Tablet PO ×2 (09:30→21:15)
[2022-12-30] MEDS: Midodrine HCl 5 MG Tablet 10 MG PO ×3 (09:30→18:06)
[2022-12-30] MEDS: Ergocalciferol 1.25 MG (50, 000 UNIT) Capsule PO (09:41)
[2022-12-30 10:00] VITALS: BP 145/84; PULSE 114; RESP 16; TEMP 37.1; O2SAT 95
[2022-12-30] MEDS: Metoclopramide 10 MG/2 ML Vial 5 MG IV ×2 (13:20→18:06)
[2022-12-30 13:31] LABS: Bedside Glucose 256 mg/dL (74-106)
[2022-12-30] MEDS: Ketorolac 15 MG/ML Vial IV ×2 (15:24→21:29)
[2022-12-30 15:59] LABS: Bedside Glucose 269 mg/dL (74-106)
[2022-12-30 16:00] VITALS: BP 157/95; PULSE 96; RESP 16; TEMP 37.1; O2SAT 97
[2022-12-30 20:35] VITALS: BP 155/71; PULSE 83; RESP 16; TEMP 36.8; O2SAT 98
[2022-12-30 21:36] LABS: Bedside Glucose 488 mg/dL (74-106)
[2022-12-30] MEDS: Insulin Glargine-YFGN 100 UNIT/ML Pen 25 UNIT SC (22:53)
[2022-12-31] MEDS: Metoclopramide 10 MG/2 ML Vial 5 MG IV ×4 (00:28→18:01)
[2022-12-31] MEDS: 0.9% Saline Lock 10 ML Syringe IV ×3 (00:28→18:01)
[2022-12-31 02:15] VITALS: BP 121/72; PULSE 85; RESP 16; TEMP 36.6; O2SAT 98
[2022-12-31] MEDS: Ketorolac 15 MG/ML Vial IV ×3 (05:41→18:01)
[2022-12-31] MEDS: Gabapentin 300 MG Capsule 900 MG PO ×3 (05:41→21:19)
[2022-12-31] MEDS: Lactulose 20 GM/30 ML UDC PO ×3 (05:41→21:19)
[2022-12-31] MEDS: Insulin Lispro 100 UNIT/ML INSULN.PEN SC ×4 (06:29→21:18)
[2022-12-31 06:49] LABS: Bedside Glucose 326 mg/dL (74-106)
--- NOTE | 2022-12-31 08:35 | PN.HOSP_ITS ---
Reason for Visit Reason for Visit: Diagnoses Ileus, unspecified (12/29/22) Wedge compression fracture of first lumbar vertebra, subsequent encounter for fracture with routine healing (12/29/22) Subjective Subjective Feeling better, but abdomen still distended. Objective Data Objective Data Vital Signs: Vital Signs Temp Pulse Resp BP Pulse Ox O2 Del Method 36.6 C 85 16 121/72 H 98 Room Air 12/31/22 02:15 12/31/22 02:15 12/31/22 02:15 12/31/22 02:15 12/31/22 02:15 12/31/22 02:15 Oxygen Delivery Method Room Air Weight: 62.006 kg Body Mass Index (BMI) 22.0 Intake & Output: Intake and Output for Last 24 Hours 12/29/22 12/30/22 12/31/22 23:59 23:59 23:59 Intake Total 1000 / 1000 1200 / 1200 Balance 1000 / 1000 1200 / 1200 Lab / Micro Data 12/30/22 06:08 12/30/22 06:08 Labs: Laboratory Results - last 24 hr 12/30/22 13:06: POC Glucose 256 H 12/30/22 15:37: POC Glucose 269 H 12/30/22 21:14: POC Glucose 488 H* 12/31/22 06:28: POC Glucose 326 H Physical Exam Const alert and no apparent distress Resp normal respiratory effort, no retractions, no use of accessory muscles and clear to auscultation bilaterally Cardio regular rate, regular rhythm, S1 normal heart sound and S2 normal heart sound GI normal to inspection, nondistended, normoactive bowel sounds, soft to palpation, non-tender and non-distended Assessment & Plan Assessment/Plan (1) Ileus: PLAN: Ileus but also w constipation. Likely complicated by narcotics, which have been held Back on lactulose Add metoclopramide encouraged ambulation. (2) Compression fracture of L1 lumbar vertebra: QUALIFIERS: Encounter type: subsequent encounter Fracture healing: with routine healing Qualified Code(s): S32.010D - Wedge compression fracture of first lumbar vertebra, subsequent encounter for fracture with routin e healing PLAN: s/p fall avoid narcotics given above lidoderm patch. short course of ketorolac PRN. (3) Vitamin D deficiency: PLAN: started 50,000 units of ergocalciferol continue to total of 8 doses (4) Diabetes 1.5, managed as type 1: PLAN: Glargine cut down to 25 from 55 on admission. Glucose has been running high. A1c 8.3 from October Resume glargine continue SSI. PLAN: Plan Chronic conditions: * Alcoholic cirrhosis/anemia of chronic disease? She has not been needing parac entesis as frequently? Can resume her home lactulose as well as Tifaxin? We will hold her Lasix and her spironolactone for today while we place her on IV fluids given her nausea and vomiting? Can resume her midodrine as well as her GI prophylaxis given her varices with PPI and Pepcid * Anxiety/depression? Stable? Can continue with her home medications DVT: Ambulation Charges/Coding Visit Charges Inpatient E&M: 39890 Subs Hosp L2
[2022-12-31] MEDS: Pantoprazole Sodium 40 MG Tablet PO (09:46)
[2022-12-31] MEDS: Midodrine HCl 5 MG Tablet 10 MG PO ×3 (09:46→16:28)
[2022-12-31] MEDS: DULoxetine Hcl 60 MG Capsule PO (09:46)
[2022-12-31] MEDS: Ursodiol 250 MG Tablet PO ×2 (09:46→16:28)
[2022-12-31] MEDS: rifAXIMin 550 MG Tablet PO ×2 (09:47→21:20)
[2022-12-31] MEDS: Senna/Docusate Sodium 1 Tablet 2 TABLET PO ×2 (09:47→21:19)
[2022-12-31] MEDS: Famotidine 20 MG Tablet PO ×2 (09:47→21:20)
[2022-12-31] MEDS: Lidocaine 5% Patch 1 PATCH TOPICAL (09:54)
[2022-12-31 10:00] VITALS: BP 115/76; PULSE 98; RESP 18; TEMP 37.1; O2SAT 95
[2022-12-31 12:27] LABS: Bedside Glucose 396 mg/dL (74-106)
[2022-12-31] MEDS: ALPRAZolam 0.25 MG Tablet PO (16:25)
[2022-12-31 17:00] VITALS: BP 108/78; PULSE 100; RESP 18; TEMP 37.1; O2SAT 98
[2022-12-31 18:31] LABS: Bedside Glucose 314 mg/dL (74-106)
[2022-12-31 20:30] VITALS: BP 151/90; PULSE 94; RESP 16; TEMP 37.1; O2SAT 97
[2022-12-31] MEDS: Insulin Glargine-YFGN 100 UNIT/ML Pen 55 UNIT SC (21:18)
[2022-12-31] MEDS: Amitriptyline 25 MG Tablet PO (21:21)
[2022-12-31 21:56] LABS: Bedside Glucose 407 mg/dL (74-106)
[2023-01-01] MEDS: ALPRAZolam 0.25 MG Tablet PO ×2 (00:02→22:08)
[2023-01-01] MEDS: Metoclopramide 10 MG/2 ML Vial 5 MG IV ×4 (00:02→18:10)
[2023-01-01] MEDS: 0.9% Saline Lock 10 ML Syringe IV ×3 (00:02→18:25)
[2023-01-01] MEDS: Ketorolac 15 MG/ML Vial IV ×3 (00:02→18:23)
[2023-01-01 02:20] VITALS: BP 135/87; PULSE 82; RESP 16; TEMP 36.7; O2SAT 97
[2023-01-01] MEDS: Gabapentin 300 MG Capsule 900 MG PO ×3 (06:20→22:02)
[2023-01-01] MEDS: Lactulose 20 GM/30 ML UDC PO ×3 (06:20→22:03)
[2023-01-01] MEDS: Insulin Lispro 100 UNIT/ML INSULN.PEN SC ×3 (06:25→22:10)
[2023-01-01 06:54] LABS: Bedside Glucose 397 mg/dL (74-106)
--- NOTE | 2023-01-01 07:54 | PN.HOSP_ITS ---
Reason for Visit Reason for Visit: Diagnoses Other specified diabetes mellitus without complications (12/29/22) Vitamin D deficiency, unspecified (12/29/22) Ileus, unspecified (12/29/22) Wedge compression fracture of first lumbar vertebra, subsequent encounter for fracture with routine healing (12/29/22) Subjective Subjective Still with flatus. Still distended, though tolerating PO. Followed up this afternoon and she says she ate, her abdomen is feeling better, but still distended. Objective Data Objective Data Vital Signs: Vital Signs Temp Pulse Resp BP Pulse Ox O2 Del Method 36.7 C 82 16 135/87 H 97 Room Air 01/01/23 02:20 01/01/23 02:20 01/01/23 02:20 01/01/23 02:20 01/01/23 02:20 01/01/23 02:20 Oxygen Delivery Method Room Air Weight: 62.006 kg Body Mass Index (BMI) 22.0 Intake & Output: Intake and Output for Last 24 Hours 12/30/22 12/31/22 01/01/23 23:59 23:59 23:59 Intake Total 1200 / 1200 450 / 450 Balance 1200 / 1200 450 / 450 Lab / Micro Data 12/30/22 06:08 01/01/23 13:05 Labs: Laboratory Results - last 24 hr 12/31/22 12:00: POC Glucose 396 H 12/31/22 16:27: POC Glucose 314 H 12/31/22 21:17: POC Glucose 407 H 01/01/23 06:19: POC Glucose 397 H Physical Exam Const alert Constitutional Narrative: uncomfortable. non-toxic. Resp normal respiratory effort, no retractions, no use of accessory muscles and clear to auscultation bilaterally Cardio regular rate, regular rhythm, S1 normal heart sound and S2 normal heart sound GI GI Narrative: distended. Follow up in the afternoon, abdomen appeared to be less distended. Auscultation: hypoactive bowel sounds Extremity normal to inspection Assessment & Plan Assessment/Plan (1) Ileus: PLAN: Ileus but also w constipation. Likely complicated by narcotics, which have been held Ongoing Back on lactulose Add metoclopramide encouraged ambulation. cannot rule out component of gastroparesis. No erythromycin due to macrolide allergy. (2) Compression fracture of L1 lumbar vertebra: QUALIFIERS: Encounter type: subsequent encounter Fracture healing: with routine healing Qualified Code(s): S32.010D - Wedge compression fracture of first lumbar vertebra, subsequent encounter for fracture with routine healing PLAN: s/p fall avoid narcotics given above lidoderm patch. short course of ketorolac PRN. (3) Vitamin D deficiency: PLAN: started 50,000 units of ergocalciferol continue to total of 8 doses (4) Diabetes 1.5, managed as type 1: PLAN: Glargine cut down to 25 from 55 on admission. Glucose has been running high. A1c 8.3 from October Resume 55 glargine, started on 12/31. 01/01, change glargine to 35 BID continue SSI. PLAN: Plan Chronic conditions: * Alcoholic cirrhosis/anemia of chronic disease? She has not been needing paracentesis as frequently? Can resume her home lactulose as well as Tifaxin? We will hold her Lasix and her spironolactone for today while we place her on IV fluids given her nausea and vomiting? Can resume her midodrine as well as her GI prophylaxis given her varices with PPI and Pepcid * Anxiety/depression? Stable? Can continue with her home medications DVT: Ambulation Charges/Coding Visit Charges Inpatient E&M: 75612 Subs Hosp L2
[2023-01-01 07:57] VITALS: BP 128/57; PULSE 83; RESP 18; TEMP 36.8; O2SAT 96
[2023-01-01] MEDS: Senna/Docusate Sodium 1 Tablet 2 TABLET PO ×2 (08:03→22:03)
[2023-01-01] MEDS: Midodrine HCl 5 MG Tablet 10 MG PO ×3 (08:04→18:09)
[2023-01-01] MEDS: Ursodiol 250 MG Tablet PO ×2 (08:05→18:12)
[2023-01-01] MEDS: Famotidine 20 MG Tablet PO ×2 (08:05→22:04)
[2023-01-01] MEDS: DULoxetine Hcl 60 MG Capsule PO (08:06)
[2023-01-01] MEDS: Pantoprazole Sodium 40 MG Tablet PO (08:06)
[2023-01-01] MEDS: rifAXIMin 550 MG Tablet PO ×2 (08:07→22:02)
[2023-01-01] MEDS: Lidocaine 5% Patch 1 PATCH TOPICAL (08:09)
--- NOTE | 2023-01-01 11:35 | RAD_ITS ---
HISTORY: Abdominal pain, distention. TECHNIQUE: XR Abdomen 1 View. COMPARISON: CT 08/29/2022. FINDINGS: BOWEL GAS PATTERN: Gaseous distention of small bowel and colon. Scattered stool throughout the colon FREE AIR: Not assessed on supine view. CALCIFICATIONS: Right pelvic phleboliths observed. BONES: Unremarkable. SOFT TISSUES: Lung bases clear. RAD/Abdomen Single View IMPRESSION: Persistent gaseous distention of bowel suggesting ileus. Electronically Signed: Jessica Bernabe MD at 14:15 EDT ,
--- NOTE | 2023-01-01 12:56 | NURSING ---
Blood sugar is 555 on our hospital glucometer. This RN called for lab to come perform lab back up. order is in as well.
--- NOTE | 2023-01-01 13:08 | NURSING ---
lab here doing lab back up.
[2023-01-01 13:15] LABS: Bedside Glucose > 500 mg/dL (74-106)
--- NOTE | 2023-01-01 13:32 | NURSING ---
lab called this RN and said glucose was 568. Dr. Burk aware that it was 555 recently and order to give 20 units of novolog.
[2023-01-01 13:33] LABS: Glucose 568 mg/dL (74-106)
[2023-01-01] MEDS: Insulin Lispro 100 UNIT/ML INSULN.PEN 20 UNIT SC (13:41)
[2023-01-01 14:39] VITALS: BP 155/87; PULSE 64; RESP 18; TEMP 36.8; O2SAT 96
--- NOTE | 2023-01-01 14:44 | NURSING ---
blood sugar checked at this time now that 20 units of insulin was given approximately 40min ago. Blood sugar is 488.
[2023-01-01 15:09] LABS: Bedside Glucose 488 mg/dL (74-106)
[2023-01-01] MEDS: Lidocaine 5% Patch 2 PATCH TOPICAL (18:08)
[2023-01-01 18:32] LABS: Bedside Glucose 324 mg/dL (74-106)
[2023-01-01 22:00] VITALS: BP 188/93; PULSE 64; RESP 16; TEMP 37.1; O2SAT 98
[2023-01-01] MEDS: Amitriptyline 25 MG Tablet PO (22:08)
[2023-01-01] MEDS: Insulin Glargine-YFGN 100 UNIT/ML Pen 35 UNIT SC (22:10)
[2023-01-01 22:38] LABS: Bedside Glucose 209 mg/dL (74-106)
[2023-01-02] MEDS: Ketorolac 15 MG/ML Vial IV ×3 (00:26→18:29)
[2023-01-02] MEDS: Metoclopramide 10 MG/2 ML Vial 5 MG IV ×4 (00:27→18:22)
[2023-01-02] MEDS: 0.9% Saline Lock 10 ML Syringe IV ×3 (00:27→18:27)
[2023-01-02 04:00] VITALS: BP 125/74; PULSE 80; RESP 18; TEMP 36.4; O2SAT 98
[2023-01-02] MEDS: Gabapentin 300 MG Capsule 900 MG PO ×3 (06:40→22:26)
[2023-01-02] MEDS: Lactulose 20 GM/30 ML UDC PO ×3 (06:40→22:26)
[2023-01-02 07:22] LABS: Bedside Glucose > 500 mg/dL (74-106)
--- NOTE | 2023-01-02 07:29 | PN.HOSP_ITS ---
Reason for Visit Reason for Visit: Diagnoses Other specified diabetes mellitus without complications (12/29/22) Vitamin D deficiency, unspecified (12/29/22) Ileus, unspecified (12/29/22) Wedge compression fracture of first lumbar vertebra, subsequent encounter for fracture with routine healing (12/29/22) Subjective Subjective Had some BM. Still with abdominal distention and discomfort. Objective Data Objective Data Vital Signs: Vital Signs Temp Pulse Resp BP Pulse Ox O2 Del Method 36.4 C L 80 18 125/74 H 98 Room Air 01/02/23 04:00 01/02/23 04:00 01/02/23 04:00 01/02/23 04:00 01/02/23 04:00 01/02/23 04:00 Oxygen Delivery Method Room Air Weight: 62.006 kg Body Mass Index (BMI) 22.0 Intake & Output: Intake and Output for Last 24 Hours 12/31/22 01/01/23 01/02/23 23:59 23:59 23:59 Intake Total 450 / 450 420 / 420 Balance 450 / 450 420 / 420 Lab / Micro Data 12/30/22 06:08 01/02/23 07:00 Labs: Laboratory Results - last 24 hr 01/01/23 12:54: POC Glucose > 500 H* 01/01/23 13:05: Glucose 568 H* 01/01/23 14:38: POC Glucose 488 H* 01/01/23 18:07: POC Glucose 324 H 01/01/23 22:00: POC Glucose 209 H 01/02/23 06:35: POC Glucose > 500 H* Radiography Diagnostic Testing: Radiology Impression KUB X-Ray 01/01/23 11:35 IMPRESSION: Persistent gaseous distention of bowel suggesting ileus. Electronically Signed: Jessica Bernabe MD at 14:15 EDT , Physical Exam Const alert and no apparent distress GI GI Narrative: distended. minimally tender to palpation. Assessment & Plan Assessment/Plan (1) Ileus: PLAN: Ileus but also w constipation. Likely complicated by narcotics, which have been held Ongoing Back on lactulose Add metoclopramide encouraged ambulation. cannot rule out component of gastroparesis. No erythromycin due to macrolide intolerance. Try Fleets enema. If ineffective, will order SBFT. (2) Compression fracture of L1 lumbar vertebra: QUALIFIERS: Encounter type: subsequent encounter Fracture healing: with routine healing Qualified Code(s): S32.010D - Wedge compression fracture of first lumbar vertebra, subsequent encounter for fracture with routine healing PLAN: s/p fall avoid narcotics given above lidoderm patch. short course of ketorolac PRN. (3) Vitamin D deficiency: PLAN: started 50,000 units of ergocalciferol continue to total of 8 doses (4) Diabetes 1.5, managed as type 1: PLAN: Uncontrolled. Patient acknowleges that, but states it is significantly better than months prior when her a1c was 14. Glargine cut down to 25 from 55 on admission. Glucose has been running high. A1c 8.3 from October Resume 55 glargine, started on 12/31. 01/01, change glargine to 35 BID continue SSI. PLAN: Plan Chronic conditions: * Alcoholic cirrhosis/anemia of chronic disease? She has not been needing paracentesis as frequently? Can resume her home lactulose as well as Tifaxin? We will hold her Lasix and her spironolactone for today while we place her on IV fluids given her nausea and vomiting? Can resume her midodrine as well as her GI prophylaxis given her varices with PPI and Pepcid * Anxiety/depression? Stable? Can continue with her home medications DVT: Ambulation Charges/Coding Visit Charges Inpatient E&M: 99097 Subs Hosp L2
[2023-01-02 07:31] LABS: Glucose 553 mg/dL (74-106)
--- NOTE | 2023-01-02 07:32 | NURSING ---
This Nurse is aware of blood sugar being 553
[2023-01-02] MEDS: Lidocaine 5% Patch 2 PATCH TOPICAL (07:55)
[2023-01-02] MEDS: Insulin Glargine-YFGN 100 UNIT/ML Pen 35 UNIT SC ×2 (07:55→22:36)
[2023-01-02] MEDS: Senna/Docusate Sodium 1 Tablet 2 TABLET PO ×2 (07:59→22:28)
[2023-01-02] MEDS: Midodrine HCl 5 MG Tablet 10 MG PO ×2 (07:59→12:24)
[2023-01-02] MEDS: Ursodiol 250 MG Tablet PO ×2 (07:59→16:33)
[2023-01-02] MEDS: Pantoprazole Sodium 40 MG Tablet PO (08:00)
[2023-01-02] MEDS: Famotidine 20 MG Tablet PO ×2 (08:00→22:27)
[2023-01-02] MEDS: rifAXIMin 550 MG Tablet PO ×2 (08:01→22:28)
[2023-01-02] MEDS: Insulin Lispro 100 UNIT/ML INSULN.PEN 16 UNIT SC (08:05)
[2023-01-02 10:42] LABS: Bedside Glucose 401 mg/dL (74-106)
[2023-01-02] MEDS: Insulin Lispro 100 UNIT/ML INSULN.PEN SC ×3 (12:22→22:36)
[2023-01-02] MEDS: Fleet Enema 1 ML RC (12:24)
[2023-01-02 13:26] LABS: Bedside Glucose 274 mg/dL (74-106)
[2023-01-02] MEDS: ALPRAZolam 0.25 MG Tablet PO (14:54)
[2023-01-02 16:43] VITALS: BP 180/90; PULSE 66; RESP 16; TEMP 36.5; O2SAT 97
[2023-01-02 17:06] LABS: Bedside Glucose 328 mg/dL (74-106)
[2023-01-02] MEDS: Spironolactone 50 MG Tablet PO (18:31)
[2023-01-02 20:23] VITALS: BP 175/95; PULSE 67; RESP 18; TEMP 36.8; O2SAT 97
[2023-01-02] MEDS: Amitriptyline 25 MG Tablet PO (22:48)
[2023-01-02 23:03] LABS: Bedside Glucose 437 mg/dL (74-106)
[2023-01-03] MEDS: Metoclopramide 10 MG/2 ML Vial 5 MG IV ×5 (00:47→22:33)
[2023-01-03] MEDS: 0.9% Saline Lock 10 ML Syringe IV ×5 (00:47→22:34)
[2023-01-03] MEDS: ALPRAZolam 0.25 MG Tablet PO ×2 (00:48→22:33)
[2023-01-03] MEDS: Ketorolac 15 MG/ML Vial IV ×4 (00:48→21:04)
[2023-01-03 02:30] VITALS: BP 142/94; PULSE 86; RESP 18; TEMP 36.7; O2SAT 97
[2023-01-03] MEDS: Gabapentin 300 MG Capsule 900 MG PO ×3 (05:38→21:03)
[2023-01-03] MEDS: Lactulose 20 GM/30 ML UDC PO ×3 (05:42→21:02)
[2023-01-03] MEDS: Insulin Lispro 100 UNIT/ML INSULN.PEN SC ×4 (05:49→21:02)
--- NOTE | 2023-01-03 07:49 | PCM.PN.HOSP ---
Reason for Visit Reason for Visit: Diagnoses Other specified diabetes mellitus without complications (12/29/22) Vitamin D deficiency, unspecified (12/29/22) Ileus, unspecified (12/29/22) Wedge compression fracture of first lumbar vertebra, subsequent encounter for fracture with routine healing (12/29/22) Subjective Subjective Patient is a 47-year-old lady admitted with abdominal pain with associated nausea and vomiting. CT of the abdomen and pelvis obtained on admission demonstrated nonspecific ileus with diffuse fecal retention in the colon. Admitted to regular nursing floor for subsequent management Objective Data Objective Data Vital Signs: Vital Signs Temp Pulse Resp BP Pulse Ox O2 Del Method 98.0 F 86 18 142/94 H 97 Room Air 01/03/23 02:30 01/03/23 02:30 01/03/23 02:30 01/03/23 02:30 01/03/23 02:30 01/03/23 02:30 Oxygen Delivery Method Room Air Weight: 62.006 kg Body Mass Index (BMI) 22.0 Intake & Output: Intake and Output for Last 24 Hours 01/01/23 01/02/23 01/03/23 23:59 23:59 23:59 Intake Total 420 / 420 480 / 730 600 / 600 Balance 420 / 420 480 / 730 600 / 600 Lab / Micro Data 12/30/22 06:08 01/02/23 07:00 Labs: Laboratory Results - last 24 hr 01/02/23 10:23: POC Glucose 401 H 01/02/23 12:21: POC Glucose 274 H 01/02/23 16:38: POC Glucose 328 H 01/02/23 22:35: POC Glucose 437 H Physical Exam Narrative GENERAL: cooperative HEENT: Atraumatic; normocephalic EYES; Anicteric, Normal Conjunctiva NECK; supple, normal thyroid, RESPIRATORY: Diminished to auscultation CARDIOVASCULAR: Regular S1 S2, GI: soft, normoactive bowel sounds, : No Renal angle tenderness; EXTREMITIES: No edema, no clubbing, MUSCULOSKELETAL: no muscle wasting NEURO: Awake; no lateralizing signs. SKIN: No Rash PSYCH; Flat affect Assessment & Plan Assessment/Plan (1) Abdominal pain: PLAN: Plan Patient is a 47-year-old lady admitted with abdominal pain with associated nausea and vomiting. CT of the abdomen and pelvis obtained on admission demonstrated nonspecific ileus with diffuse fecal retention in the colon. Admitted to regular nursing floor for subsequent management 1. Narcotic induced ileus ? Patient had apparently been prescribed narcotics for recent L1 compression fracture. Presented with nausea vomiting. CT of the abdomen and pelvis obtained on admission demonstrated nonspecific ileus with diffuse fecal retention in the colon. Admitted to regular nursing floor for subsequent management. Narcotics discontinued patient started on Reglan with small bowel follow-through ordered for subsequent eval ? Small bowel follow-through did not show any evidence of obstruction there was however evidence of some mild degree of ileus. Patient currently on soft diet which has been advanced as tolerated 2. Recent L1 compression fracture ? Symptomatic management; Do plan to avoid narcotics 3. Diabetes mellitus type II with uncontrolled blood glucose level -patient's oral hypoglycemics held. Placed on long acting insulin, Accu-Cheks a.c. and at bedtime and covered with sliding scale insulin 4.? 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 Patient is currently stable on Xifaxan and lactulose 5.? Depression with anxiety ? Patient is on alprazolam as needed in addition to duloxetine 6.? Anemia - Secondary to chronic disorder monitoring H&H and transfuse if patient becomes symptomatic or hemoglobin falls below? 7 7. Tobacco dependence - Counseled on cessation, offered nicotine patch for tobacco cravings 8. DVT prophylaxis ? Bilateral SCDs Time spent in the patient's overall evaluation,decision-making process, review of diagnostic data, adjustment of management, discussion with other providers, nursing nursing and ancillary staff involved in patient's care documentation, 40 Minutes Charges/Coding Visit Charges Inpatient E&M: 77718 Subs Hosp L2
[2023-01-03 11:00] VITALS: BP 167/94; PULSE 101; RESP 18; TEMP 36.4; O2SAT 98
--- NOTE | 2023-01-03 11:05 | RAD_ITS ---
STUDY: GASTROGRAFIN SMALL BOWEL FOLLOW-THROUGH EXAMINATION. REASON FOR EXAM: Female, 47 years old. Abdominal pain and distention. TECHNIQUE: The patient drank a mixture of 120 mL of Gastrografin and 120 mL of water. A small bowel follow-through examination was then obtained. 8 images were obtained. COMPARISON: None. FINDINGS: The ultrasound tester film demonstrates mild dilated central small bowel loops. The patient ingested the oral mixture. The colon is seen within the abdomen 15 minutes. There is no evidence of bowel obstruction. RAD/Small Bowel Series Only IMPRESSION: No evidence of bowel obstruction. This may represent a mild degree of ileus pattern. Electronically Signed: Denzel Quijano MD at 13:00 EDT ,
[2023-01-03] MEDS: Lidocaine 5% Patch 2 PATCH TOPICAL (11:21)
[2023-01-03] MEDS: rifAXIMin 550 MG Tablet PO ×2 (11:21→21:04)
[2023-01-03] MEDS: Pantoprazole Sodium 40 MG Tablet PO (11:21)
[2023-01-03] MEDS: DULoxetine Hcl 60 MG Capsule PO (11:22)
[2023-01-03] MEDS: Spironolactone 50 MG Tablet PO (11:22)
[2023-01-03] MEDS: Insulin Glargine-YFGN 100 UNIT/ML Pen 35 UNIT SC ×2 (11:22→21:02)
[2023-01-03] MEDS: Senna/Docusate Sodium 1 Tablet 2 TABLET PO ×2 (11:22→21:04)
[2023-01-03] MEDS: Famotidine 20 MG Tablet PO ×2 (11:22→21:03)
[2023-01-03] MEDS: Ursodiol 250 MG Tablet PO ×2 (11:22→18:05)
[2023-01-03 12:01] LABS: Bedside Glucose 279 mg/dL (74-106)
[2023-01-03 12:01] LABS: Bedside Glucose 413 mg/dL (74-106)
[2023-01-03 14:25] VITALS: BP 149/82; PULSE 88; RESP 18; TEMP 36.7; O2SAT 99
[2023-01-03] MEDS: Insulin Lispro 100 UNIT/ML INSULN.PEN 15 UNIT SC (16:23)
[2023-01-03 16:53] LABS: Bedside Glucose 386 mg/dL (74-106)
[2023-01-03] MEDS: Midodrine HCl 5 MG Tablet 10 MG PO (18:05)
[2023-01-03 20:48] VITALS: BP 186/99; PULSE 66; RESP 16; TEMP 36.9; O2SAT 100
[2023-01-03 22:32] VITALS: BP 153/96
[2023-01-03] MEDS: Amitriptyline 25 MG Tablet PO (22:34)
[2023-01-04 02:50] VITALS: BP 126/88; PULSE 87; RESP 16; TEMP 36.6; O2SAT 98
[2023-01-04] MEDS: 0.9% Saline Lock 10 ML Syringe IV ×4 (02:56→18:19)
[2023-01-04] MEDS: Ketorolac 15 MG/ML Vial IV ×3 (02:58→18:19)
[2023-01-04 02:59] LABS: Bedside Glucose 199 mg/dL (74-106)
[2023-01-04] MEDS: Metoclopramide 10 MG/2 ML Vial 5 MG IV ×2 (05:29→16:16)
[2023-01-04] MEDS: Gabapentin 300 MG Capsule 900 MG PO ×3 (05:29→21:31)
[2023-01-04] MEDS: Lactulose 20 GM/30 ML UDC PO ×3 (05:29→21:30)
[2023-01-04 06:23] LABS: Absolute Lymphocyte Count 1.58 X10^3/uL (0.83-4.51); Basophil# 0.05 X10^3/uL; Basophil% 0.9 % (0-1); Eosinophil# 0.25 X10^3/uL; Eosinophils% 4.5 % (0-5); Hematocrit 39.2 % (37-47); Hemoglobin 12.8 g/dL (12.0-15.0); Lymphocyte # 1.58 X10^3/ul (0.83-4.51); Lymphocyte % 28.7 % (19-41); Mean Corp Hgb Conc 32.7 g/dL (32-36); Mean Corpuscular Hgb 30.5 pg (27.0-32.0); Mean Corpuscular Volume 93.3 fL (81-99); Mean Platelet Vol. 9.6 fl (6.2-12.0); Monocyte# 0.58 X10^3/uL; Monocyte% 10.5 % (0-10); NRBC Flagged by Analyzer 0 % (0-5); Neutrophil # 3.01 X10^3/uL (2.7-7.7); Neutrophil % 54.9 % (47-70); Platelet Count 212 K/mm3 (150-450); RBC Distribution Width CV 14.1 % (11.6-14.6); RBC Distribution Width SD 48.1 fl (35.1-43.9); White Blood Count 5.5 K/mm3 (4.4-11.0)
[2023-01-04 06:48] LABS: Anion Gap 4 (5-15); BUN 20 mg/dL (7-18); BUN/Creat Ratio 18.9 RATIO (10-20); Calcium,Total 9.6 mg/dL (8.5-10.1); Chloride 102 mmol/L (98-107); Creatinine, Serum 1.06 mg/dL (0.55-1.02); EST Glomerular Filtration Rate 59 mL/min (>60); Est Glom Filt Rate - Afr Amer 71 mL/min (>60); Estimated Creatinine Clearance 60.76 ml/min; Glucose 432 mg/dL (74-106); Potassium 4.3 mmol/L (3.5-5.1); Sodium Level 131 mmol/L (136-145)
--- NOTE | 2023-01-04 08:03 | PCM.DC.SUM ---
Providers Date of Admission: 01/01/23 Date of Discharge: 01/04/23 Primary Care Physician: Dr. Valerie Mullins MD Reason For Visit: NARCOTIC INDUCED CONSTIPATION Diagnosis Discharge Diagnosis (1) Abdominal pain: Status: Acute Code(s): R10.9 - Unspecified abdominal pain Qualifiers: Abdominal location: generalized Qualified Code(s): R10.84 - Generalized abdominal pain Plan Patient is a 47-year-old lady admitted with abdominal pain with associated nausea and vomiting. CT of the abdomen and pelvis obtained on admission demonstrated nonspecific ileus with diffuse fecal retention in the colon. Admitted to regular nursing floor for subsequent management 1. Narcotic induced ileus ? Patient had apparently been prescribed narcotics for recent L1 compression fracture. Presented with nausea vomiting. CT of the abdomen and pelvis obtained on admission demonstrated nonspecific ileus with diffuse fecal retention in the colon. Admitted to regular nursing floor for subsequent management. Narcotics discontinued patient started on Reglan with small bowel follow-through ordered for subsequent eval ? Small bowel follow-through did not show any evidence of obstruction there was however evidence of some mild degree of ileus. Patient currently on soft diet which has been advanced as tolerated 2. Recent L1 compression fracture ? Symptomatic management; Do plan to avoid narcotics 3. Diabetes mellitus type II with uncontrolled blood glucose level -patient's oral hypoglycemics held. Placed on long acting insulin, Accu-Cheks a.c. and at bedtime and covered with sliding scale insulin 4.? 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 Patient is currently stable on Xifaxan and lactulose 5.? Depression with anxiety ? Patient is on alprazolam as needed in addition to duloxetine 6.? Anemia - Secondary to chronic disorder monitoring H&H and transfuse if patient becomes symptomatic or hemoglobin falls below? 7 7. Tobacco dependence - Counseled on cessation, offered nicotine patch for tobacco cravings 8. DVT prophylaxis ? Bilateral SCDs Time spent in the patient's overall evaluation,decision-making process, review of diagnostic data, adjustment of management, discussion with other providers, nursing nursing and ancillary staff involved in patient's care documentation, 35 Minutes Medications at Discharge Home Medications duloxetine 60 mg capsule,delayed release 60 mg PO DAILY depression 12/10/21 ursodiol 300 mg capsule 300 mg PO BID gallbladder 12/10/21 ondansetron 4 mg disintegrating tablet 4 mg PO Q8H PRN nausea and vomiting #14 tabs 02/09/22 famotidine 20 mg tablet 20 mg PO BID #60 tabs 02/20/22 rifaximin 550 mg tablet (Xifaxan) 550 mg PO BID #60 tabs 02/20/22 gabapentin 300 mg capsule 900 mg PO TID nerve pain 03/10/22 midodrine 5 mg tablet 10 mg PO TID blood pressure 03/10/22 lancets #100 ea 05/02/22 needle (disp) #500 ea 05/02/22 alprazolam 0.25 mg tablet 0.25 mg PO BID PRN anxiety 08/02/22 lactulose 10 gram/15 mL oral solution 30 ml PO 3XD cirrhosis 08/02/22 pantoprazole 40 mg tablet,delayed release 40 mg PO DAILY 08/02/22 furosemide 20 mg tablet (Lasix) 40 mg PO DAILY 08/15/22 spironolactone 25 mg tablet 50 mg PO DAILY 08/15/22 insulin glargine 100 unit/mL (3 mL) subcutaneous pen (Lantus Solostar U-100 Insulin) 55 unit (0.55 mL) subcut DAILY #18 mL 08/20/22 blood sugar diagnostic (OneTouch Ultra Test strips) #100 ea 10/07/22 blood-glucose meter (OneTouch Ultra2 Meter) #1 ea 10/07/22 flash glucose sensor (FreeStyle Jevon 2 Sensor kit) #2 ea 10/22/22 Dexcom G6 Sensor (blood-glucose sensor) #3 ea 11/16/22 Omnipod 5 G6 Intro Kit (Gen 5) subcutaneous cartridge with controller (insulin pump cart,auto,BT-cntr) #1 ea 11/16/22 insulin aspart U-100 100 unit/mL (3 mL) subcutaneous pen (Novolog FlexPen U-100 Insulin aspart) 1 sliding scale dose subcut TID 12/27/22 amitriptyline 25 mg tablet 25 mg PO QHS PRN sleep 12/30/22 doxepin 75 mg capsule 150 mg PO QHS PRN sleep 12/30/22 lidocaine 5 % topical patch 2 patch topical DAILY 30 days #60 ea 01/04/23 sennosides 8.6 mg-docusate sodium 50 mg tablet (Stool Softener-Stimulant Laxative) 2 tab PO BID #60 tabs 01/04/23 Hospital Course Summary of Care Provided Minutes Spent on Discharge: 35 Weight / BMI Weight Weight: 62.006 kg Body Mass Index (BMI) 22.0 ABG / Lab / Microbiology Data 01/04/23 06:00 01/04/23 06:00 Laboratory: Laboratory Results - last 24 hr 01/03/23 05:46: POC Glucose 279 H 01/03/23 11:39: POC Glucose 413 H 01/03/23 16:21: POC Glucose 386 H 01/03/23 20:59: POC Glucose 199 H 01/04/23 06:00: WBC 5.5, RBC 4.20, Hgb 12.8, Hct 39.2, MCV 93.3, MCH 30.5, MCHC 32.7, RDW Std Deviation 48.1 H, RDW Coeff of Teressa 14.1, Plt Count 212, MPV 9.6, Immature Gran % (Auto) 0.500, Neut % (Auto) 54.9, Lymph % (Auto) 28.7, Bland % (Auto) 10.5 H, Eos % (Auto) 4.5, Baso % (Auto) 0.9, Absolute Neuts (auto) 3.0, Absolute Lymphs (auto) 1.58, Nucleated RBC % 0, Sodium 131 L, Potassium 4.3, Chloride 102, Carbon Dioxide 25.0, Anion Gap 4 L, BUN 20 H, Creatinine 1.06 H, Estim Creat Clear Calc 60.76, Est GFR (MDRD) Af Amer 71, Est GFR (MDRD) Non-Af 59 L, BUN/Creatinine Ratio 18.9, Glucose 432 H, Calcium 9.6, Phosphorus 5.0 H, Magnesium 2.0 Radiography Diagnostic Testing: Radiology Impression Small Bowel X-Ray 01/03/23 11:05 IMPRESSION: No evidence of bowel obstruction. This may represent a mild degree of ileus pattern. Electronically Signed: Denzel Quijano MD at 13:00 EDT , D/C Instructions Discharge Diet: 1800 Calorie Control Diet Discharge Activity: Return to Normal Activity Call your doctor if you observe: Fever of 101 or Higher, Shortness of breath, Fainting spells and Chest pain Meaningful Use Info Meaningful Use Diagnoses (Choose all that apply): None applicable Discharge Plan Admission Admit Date/Time: 01/01/23 11:35 Attending Provider: Sai Aparicio Primary Care Provider: Valerie Mullins Consulting Providers: Damien Valdovinos Eric Discharge Orders/Prescriptions Prescriptions: New sennosides-docusate sodium [Stool Softener-Stimulant Laxat] 8.6-50 mg Tablet 2 tab PO BID Qty: 60 0RF lidocaine 5 % Adhesive Patch,Medicated 2 patch topical DAILY 30 Days Qty: 60 0RF Protocol: *Topical Application Instructions APPLICATION INSTRUCTIONS: Lumbar spine Continued alprazolam 0.25 mg tablet 0.25 mg PO BID PRN (Reason: anxiety) pantoprazole 40 mg tablet,delayed release (DR/EC) 40 mg PO DAILY (DME) Omnipod 5 G6 Intro Kit (Gen 5) Cartridge See Rx Instructions .Route Qty: 1 0RF Rx Instructions: As directed (DME) [employer] G6 Sensor Device See Rx Instructions .Route Qty: 3 6RF Rx Instructions: As directed ursodiol 300 mg capsule 300 mg PO BID Patient Comments: take 1 capsule by mouth twice a day duloxetine 60 mg capsule,delayed release(DR/EC) 60 mg PO DAILY Patient Comments: take 1 capsule by mouth once daily ondansetron 4 mg tablet,disintegrating 4 mg PO Q8H PRN (Reason: nausea and vomiting) Qty: 14 0RF famotidine 20 mg Tablet 20 mg PO BID Qty: 60 1RF Xifaxan 550 mg Tablet 550 mg PO BID Qty: 60 1RF midodrine 5 mg tablet 10 mg PO TID Patient Comments: TAKE TWO TABLETS (10 MG)CBY MOUTH 3 TIMES A DAY WITH MEALS gabapentin 300 mg capsule 900 mg PO TID Patient Comments: take 1 capsule by mouth three times a day as directed lactulose 10 gram/15 mL solution 30 ml PO 3XD Patient Comments: TAKE 30 ML BY MOUTH 4CTIMES A DAY (DME) lancets Misc See Rx Instructions .Route Qty: 100 0RF Rx Instructions: As directed (DME) needle (disp) Needle See Rx Instructions .Route Qty: 500 0RF Rx Instructions: As directed spironolactone 25 mg tablet 50 mg PO DAILY furosemide [Lasix] 20 mg tablet 40 mg PO DAILY amitriptyline 25 mg tablet 25 mg PO QHS PRN doxepin 75 mg capsule 150 mg PO QHS PRN Patient Comments: take 2 capsules by mouth at bedtime insulin aspart U-100 [Novolog FlexPen U-100 Insulin] 100 unit/mL (3 mL) insulin pen 1 sliding scale dose subcut TID insulin glargine [Lantus Solostar U-100 Insulin] 100 unit/mL (3 mL) insulin pen 55 unit subcut DAILY Qty: 18 3RF (DME) blood-glucose meter [OneTouch Ultra2 Meter] Misc See Rx Instructions .Route Qty: 1 0RF Rx Instructions: As directed (DME) OneTouch Ultra Test Strip See Rx Instructions .Route Qty: 100 5RF Rx Instructions: TID (DME) FreeStyle Jevon 2 Sensor Kit See Rx Instructions .Route Qty: 2 1RF Rx Instructions: As directed Referrals / Follow Up: Valerie Mullins MD [Primary Care Provider] - In 1 Week Disposition Disposition (needs filled in before D/C Order can be placed): Home, Self Care
[2023-01-04 08:34] VITALS: BP 170/95; PULSE 81; RESP 14; TEMP 36.8; O2SAT 100
[2023-01-04 09:00] LABS: Bedside Glucose > 500 mg/dL (74-106)
[2023-01-04] MEDS: Insulin Lispro 100 UNIT/ML INSULN.PEN 10 UNIT SC (09:05)
[2023-01-04] MEDS: Insulin Lispro 100 UNIT/ML INSULN.PEN 15 UNIT SC ×2 (09:06→11:08)
[2023-01-04] MEDS: Insulin Lispro 100 UNIT/ML INSULN.PEN SC ×4 (09:06→21:30)
[2023-01-04] MEDS: DULoxetine Hcl 60 MG Capsule PO (09:08)
[2023-01-04] MEDS: Ursodiol 250 MG Tablet PO ×2 (09:08→17:49)
[2023-01-04] MEDS: Spironolactone 50 MG Tablet PO (09:08)
[2023-01-04] MEDS: Senna/Docusate Sodium 1 Tablet 2 TABLET PO ×2 (09:09→21:32)
[2023-01-04] MEDS: rifAXIMin 550 MG Tablet PO ×2 (09:09→21:32)
[2023-01-04] MEDS: Pantoprazole Sodium 40 MG Tablet PO (09:09)
--- NOTE | 2023-01-04 09:38 | PHA.DC.MC.R ---
Pharmacy [facility] has performed discharge medication reconciliation and counseling for this patient. Patient requested meds to beds, this [facility] called retail and requested delivery. 1. LIDOCAINE 5% PATCH 2 PATCHES TOPICAL (LUMBAR SPINE) DAILY 2. SENNA/DOCUSATE 2T PO BID The patient's discharge medication list was reviewed for discrepancies and discrepancies were resolved. The patient was counseled on the following discharge medications and changes in medications for homegoing were reviewed. The Reason for Use, instructions for use, and potential side effects were reviewed for all new medications. The patient's questions regarding all of their medications were answered. The patient was able to verbally demonstrate an understanding of their discharge medications. Patient counseled by certified pharmacy technicianEunice. Medications at Discharge Home Medications duloxetine 60 mg capsule,delayed release 60 mg PO DAILY depression 12/10/21 ursodiol 300 mg capsule 300 mg PO BID gallbladder 12/10/21 ondansetron 4 mg disintegrating tablet 4 mg PO Q8H PRN nausea and vomiting #14 tabs 02/09/22 famotidine 20 mg tablet 20 mg PO BID #60 tabs 02/20/22 rifaximin 550 mg tablet (Xifaxan) 550 mg PO BID #60 tabs 02/20/22 gabapentin 300 mg capsule 900 mg PO TID nerve pain 03/10/22 midodrine 5 mg tablet 10 mg PO TID blood pressure 03/10/22 lancets #100 ea 05/02/22 needle (disp) #500 ea 05/02/22 alprazolam 0.25 mg tablet 0.25 mg PO BID PRN anxiety 08/02/22 lactulose 10 gram/15 mL oral solution 30 ml PO 3XD cirrhosis 08/02/22 pantoprazole 40 mg tablet,delayed release 40 mg PO DAILY 08/02/22 furosemide 20 mg tablet (Lasix) 40 mg PO DAILY 08/15/22 spironolactone 25 mg tablet 50 mg PO DAILY 08/15/22 insulin glargine 100 unit/mL (3 mL) subcutaneous pen (Lantus Solostar U-100 Insulin) 55 unit (0.55 mL) subcut DAILY #18 mL 08/20/22 blood sugar diagnostic (OneTouch Ultra Test strips) #100 ea 10/07/22 blood-glucose meter (OneTouch Ultra2 Meter) #1 ea 10/07/22 flash glucose sensor (FreeStyle Jevon 2 Sensor kit) #2 ea 10/22/22 Dexcom G6 Sensor (blood-glucose sensor) #3 ea 11/16/22 Omnipod 5 G6 Intro Kit (Gen 5) subcutaneous cartridge with controller (insulin pump cart,auto,BT-cntr) #1 ea 11/16/22 insulin aspart U-100 100 unit/mL (3 mL) subcutaneous pen (Novolog FlexPen U-100 Insulin aspart) 1 sliding scale dose subcut TID 12/27/22 amitriptyline 25 mg tablet 25 mg PO QHS PRN sleep 12/30/22 doxepin 75 mg capsule 150 mg PO QHS PRN sleep 12/30/22 lidocaine 5 % topical patch 2 patch topical DAILY 30 days #60 ea 01/04/23 sennosides 8.6 mg-docusate sodium 50 mg tablet (Stool Softener-Stimulant Laxative) 2 tab PO BID #60 tabs 01/04/23
[2023-01-04] MEDS: Insulin Glargine-YFGN 100 UNIT/ML Pen 50 UNIT SC ×2 (10:00→21:31)
[2023-01-04] MEDS: Famotidine 20 MG Tablet PO ×2 (10:01→21:31)
[2023-01-04 10:19] LABS: Bedside Glucose > 500 mg/dL (74-106)
--- NOTE | 2023-01-04 11:24 | PN.HOSP_ITS ---
Reason for Visit Reason for Visit: Diagnoses Other specified diabetes mellitus without complications (01/01/23) Vitamin D deficiency, unspecified (01/01/23) Ileus, unspecified (01/01/23) Generalized abdominal pain (01/01/23) Unspecified abdominal pain (01/01/23) Wedge compression fracture of first lumbar vertebra, subsequent encounter for fracture with routine healing (01/01/23) Subjective Subjective Since seen plan was for patient to have been discharged home She was found to have markedly elevated blood glucose level as well as blood pressure necessitating patient discharge green discontinued Objective Data Objective Data Vital Signs: Vital Signs Temp Pulse Resp BP Pulse Ox O2 Del Method 98.3 F 81 14 170/95 H 100 Room Air 01/04/23 08:34 01/04/23 08:34 01/04/23 08:34 01/04/23 08:34 01/04/23 08:34 01/04/23 08:34 Oxygen Delivery Method Room Air Weight: 62.006 kg Body Mass Index (BMI) 22.0 Intake & Output: Intake and Output for Last 24 Hours 01/02/23 01/03/23 01/04/23 23:59 23:59 23:59 Intake Total 480 / 730 600 / 950 350 / 350 Balance 480 / 730 600 / 950 350 / 350 Lab / Micro Data 01/04/23 06:00 01/04/23 06:00 Labs: Laboratory Results - last 24 hr 01/03/23 05:46: POC Glucose 279 H 01/03/23 11:39: POC Glucose 413 H 01/03/23 16:21: POC Glucose 386 H 01/03/23 20:59: POC Glucose 199 H 01/04/23 06:00: WBC 5.5, RBC 4.20, Hgb 12.8, Hct 39.2, MCV 93.3, MCH 30.5, MCHC 32.7, RDW Std Deviation 48.1 H, RDW Coeff of Teressa 14.1, Plt Count 212, MPV 9.6, Immature Gran % (Auto) 0.500, Neut % (Auto) 54.9, Lymph % (Auto) 28.7, Noble % (Auto) 10.5 H, Eos % (Auto) 4.5, Baso % (Auto) 0.9, Absolute Neuts (auto) 3.0, Absolute Lymphs (auto) 1.58, Nucleated RBC % 0, Sodium 131 L, Potassium 4.3, Chloride 102, Carbon Dioxide 25.0, Anion Gap 4 L, BUN 20 H, Creatinine 1.06 H, Estim Creat Clear Calc 60.76, Est GFR (MDRD) Af Amer 71, Est GFR (MDRD) Non-Af 59 L, BUN/Creatinine Ratio 18.9, Glucose 432 H, Calcium 9.6, Phosphorus 5.0 H, Magnesium 2.0 01/04/23 08:41: POC Glucose > 500 H* 01/04/23 09:59: POC Glucose > 500 H* Radiography Diagnostic Testing: Radiology Impression Small Bowel X-Ray 01/03/23 11:05 IMPRESSION: No evidence of bowel obstruction. This may represent a mild degree of ileus pattern. Electronically Signed: Denzel Quijano MD at 13:00 EDT , Physical Exam Narrative GENERAL: cooperative HEENT: Atraumatic; normocephalic EYES; Anicteric, Normal Conjunctiva NECK; supple, normal thyroid, RESPIRATORY: Diminished to auscultation CARDIOVASCULAR: Regular S1 S2, GI: soft, normoactive bowel sounds, : No Renal angle tenderness; EXTREMITIES: No edema, no clubbing, MUSCULOSKELETAL: no muscle wasting NEURO: Awake; no lateralizing signs. SKIN: No Rash PSYCH; Flat affect Assessment & Plan Assessment/Plan (1) Abdominal pain: QUALIFIERS: Abdominal location: generalized Qualified Code(s): R10.84 - Generalized abdominal pain PLAN: Plan Patient is a 47-year-old lady admitted with abdominal pain with associated nausea and vomiting. CT of the abdomen and pelvis obtained on admission demonstrated nonspecific ileus with diffuse fecal retention in the colon. Admitted to regular nursing floor for subsequent management 1. Narcotic induced ileus ? Patient had apparently been prescribed narcotics for recent L1 compression fracture. Presented with nausea vomiting. CT of the abdomen and pelvis obtained on admission demonstrated nonspecific ileus with diffuse fecal retention in the colon. Admitted to regular nursing floor for subsequent management. Narcotics discontinued patient started on Reglan with small bowel follow-through ordered f or subsequent eval ? Small bowel follow-through did not show any evidence of obstruction there was however evidence of some mild degree of ileus. Patient currently on soft diet which has been advanced as tolerated ? 01/04/2023; patient was placed on full liquid however she is hardly taking in much 2. Recent L1 compression fracture ? Symptomatic management; Do plan to avoid narcotics 3. Diabetes mellitus type II with uncontrolled blood glucose level -patient's oral hypoglycemics held. Placed on long acting insulin, Accu-Cheks a.c. and at bedtime and covered with sliding scale insulin ? 01/04/2023 patient has markedly elevated blood glucose levels greater than 500. Adjusted patient long-acting insulin level. Added scheduled short acting insulin 4.? 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 Patient is currently stable on Xifaxan and lactulose 5.? Depression with anxiety ? Patient is on alprazolam as needed in addition to duloxetine 6.? Anemia - Secondary to chronic disorder monitoring H&H and transfuse if patient becomes symptomatic or hemoglobin falls below? 7 7. Tobacco dependence - Counseled on cessation, offered nicotine patch for tobacco cravings 8. DVT prophylaxis ? Bilateral SCDs 9. Elevated blood pressure ? Patient does not have any history of hypertension, blood pressure this a.m. 170/95. Patient started on scheduled hydralazine Time spent in the patient's overall evaluation,decision-making process, review of diagnostic data, adjustment of management, discussion with other providers, nursing nursing and ancillary staff involved in patient's care documentation, 50 Minutes Charges/Coding Visit Charges Inpatient E&M: 52605 [facility] Hosp L3
[2023-01-04 11:35] LABS: Bedside Glucose 446 mg/dL (74-106)
[2023-01-04 13:09] LABS: Bedside Glucose 156 mg/dL (74-106)
[2023-01-04 14:30] VITALS: BP 146/88; PULSE 82; RESP 16; TEMP 36.8; O2SAT 100
--- NOTE | 2023-01-04 14:41 | NURSING ---
Paperwork filled out and called plumbing hardware assembler to get pt set up for a midline
[2023-01-04] MEDS: ALPRAZolam 0.25 MG Tablet PO ×2 (14:43→22:18)
[2023-01-04] MEDS: Lidocaine 5% Patch 2 PATCH TOPICAL (14:43)
[2023-01-04 14:57] LABS: Bedside Glucose 143 mg/dL (74-106)
[2023-01-04] MEDS: 0.9% Normal Saline 1,000 ML 200 ML IV ×2 (16:15→21:20)
[2023-01-04 16:28] LABS: Bedside Glucose 178 mg/dL (74-106)
[2023-01-04] MEDS: Insulin Lispro 100 UNIT/ML INSULN.PEN 25 UNIT SC (17:48)
[2023-01-04] MEDS: Magnesium Citrate 300 ML PO (17:54)
[2023-01-04 18:16] LABS: Bedside Glucose 223 mg/dL (74-106)
[2023-01-04 20:00] LABS: Bedside Glucose 208 mg/dL (74-106)
[2023-01-04 21:00] VITALS: BP 153/87; PULSE 78; RESP 14; TEMP 36.6; O2SAT 99
[2023-01-04] MEDS: Amitriptyline 25 MG Tablet PO (22:18)
[2023-01-04 22:31] LABS: Bedside Glucose 193 mg/dL (74-106)
[2023-01-05] MEDS: Metoclopramide 10 MG/2 ML Vial 5 MG IV ×2 (00:15→06:25)
[2023-01-05] MEDS: Ketorolac 15 MG/ML Vial IV ×2 (00:18→06:26)
[2023-01-05 02:29] VITALS: BP 163/98; PULSE 66; RESP 15; TEMP 36.6; O2SAT 99
[2023-01-05 03:59] LABS: Bedside Glucose 272 mg/dL (74-106)
[2023-01-05] MEDS: Insulin Lispro 100 UNIT/ML INSULN.PEN 6 UNIT SC (04:09)
[2023-01-05 04:31] LABS: Bedside Glucose 211 mg/dL (74-106)
[2023-01-05] MEDS: Lactulose 20 GM/30 ML UDC PO (06:25)
[2023-01-05] MEDS: Gabapentin 300 MG Capsule 900 MG PO (06:25)
[2023-01-05 07:05] LABS: Absolute Lymphocyte Count 2.24 X10^3/uL (0.83-4.51); Absolute Neutrophil Count 2.4 X10^3/uL (2.0-7.7); Basophil# 0.06 X10^3/uL; Basophil% 1.1 % (0-1); Eosinophil# 0.27 X10^3/uL; Eosinophils% 4.7 % (0-5); Hematocrit 38.2 % (37-47); Hemoglobin 12.3 g/dL (12.0-15.0); Lymphocyte # 2.24 X10^3/ul (0.83-4.51); Lymphocyte % 39.3 % (19-41); Mean Corp Hgb Conc 32.2 g/dL (32-36); Mean Corpuscular Volume 93.2 fL (81-99); Mean Platelet Vol. 10.3 fl (6.2-12.0); Monocyte# 0.65 X10^3/uL; Monocyte% 11.4 % (0-10); NRBC Flagged by Analyzer 0 % (0-5); Neutrophil # 2.44 X10^3/uL (2.7-7.7); Neutrophil % 42.8 % (47-70); POSITIVE COUNT YES; Platelet Count 243 K/mm3 (150-450); RBC Distribution Width CV 13.9 % (11.6-14.6); RBC Distribution Width SD 48.2 fl (35.1-43.9); White Blood Count 5.7 K/mm3 (4.4-11.0)
[2023-01-05 07:08] LABS: Differential Indicated SCAN CRITERIA MET
--- NOTE | 2023-01-05 07:12 | PN.HOSP_ITS ---
Reason for Visit Reason for Visit: Diagnoses Other specified diabetes mellitus without complications (01/01/23) Vitamin D deficiency, unspecified (01/01/23) Ileus, unspecified (01/01/23) Generalized abdominal pain (01/01/23) Unspecified abdominal pain (01/01/23) Wedge compression fracture of first lumbar vertebra, subsequent encounter for fracture with routine healing (01/01/23) Subjective Subjective Patient seen blood glucose control has significantly improved. Patient to be assessed for possible disc Objective Data Objective Data Vital Signs: Vital Signs Temp Pulse Resp BP Pulse Ox O2 Del Method 97.8 F 66 15 163/98 H 99 Room Air 01/05/23 02:29 01/05/23 02:29 01/05/23 02:29 01/05/23 02:29 01/05/23 02:01/05/23 02:29 Oxygen Delivery Method Room Air Weight: 62 kg Body Mass Index (BMI) 22.0 Intake & Output: Intake and Output for Last 24 Hours 01/03/23 01/04/23 01/05/23 23:59 23:59 23:59 Intake Total 600 / 950 1350 / 1950 1840 / 1840 Balance 600 / 950 1350 / 1950 1840 / 1840 Lab / Micro Data 01/05/23 06:25 01/05/23 06:25 Labs: Laboratory Results - last 24 hr 01/04/23 08:41: POC Glucose > 500 H* 01/04/23 09:59: POC Glucose > 500 H* 01/04/23 11:06: POC Glucose 446 H 01/04/23 12:50: POC Glucose 156 H 01/04/23 14:37: POC Glucose 143 H 01/04/23 16:08: POC Glucose 178 H 01/04/23 17:46: POC Glucose 223 H 01/04/23 19:21: POC Glucose 208 H 01/04/23 21:19: POC Glucose 193 H 01/05/23 02:25: POC Glucose 272 H 01/05/23 04:09: POC Glucose 211 H 01/05/23 06:25: WBC 5.7, RBC 4.10 L, Hgb 12.3, Hct 38.2, MCV 93.2, MCH 30.0, MCHC 32.2, RDW Std Deviation 48.2 H, RDW Coeff of Teressa 13.9, Plt Count 243, MPV 10.3, Immature Gran % (Auto) 0.700, Neut % (Auto) 42.8 L, Lymph % (Auto) 39.3, Sterling % (Auto) 11.4 H, Eos % (Auto) 4.7, Baso % (Auto) 1.1 H, Absolute Neuts (auto) 2.4, Absolute Lymphs (auto) 2.24, Nucleated RBC % 0 Physical Exam Narrative GENERAL: cooperative HEENT: Atraumatic; normocephalic EYES; Anicteric, Normal Conjunctiva NECK; supple, normal thyroid, RESPIRATORY: Diminished to auscultation CARDIOVASCULAR: Regular S1 S2, GI: soft, normoactive bowel sounds, : No Renal angle tenderness; EXTREMITIES: No edema, no clubbing, MUSCULOSKELETAL: no muscle wasting NEURO: Awake; no lateralizing signs. SKIN: No Rash PSYCH; Flat affect Assessment & Plan Assessment/Plan (1) Abdominal pain: QUALIFIERS: Abdominal location: generalized Qualified Code(s): R10.84 - Generalized abdominal pain PLAN: Plan Patient is a 47-year-old lady admitted with abdominal pain with associated nausea and vomiting. CT of the abdomen and pelvis obtained on admission demons trated nonspecific ileus with diffuse fecal retention in the colon. Admitted to regular nursing floor for subsequent management 1. Narcotic induced ileus ? Patient had apparently been prescribed narcotics for recent L1 compression fracture. Presented with nausea vomiting. CT of the abdomen and pelvis obtained on admission demonstrated nonspecific ileus with diffuse fecal retention in the colon. Admitted to regular nursing floor for subsequent management. Narcotics discontinued patient started on Reglan with small bowel follow-through ordered for subsequent eval ? Small bowel follow-through did not show any evidence of obstruction there was however evidence of some mild degree of ileus. Patient currently on soft diet which has been advanced as tolerated ? 01/04/2023; patient was placed on full liquid however she is hardly taking in much 2. Recent L1 compression fracture ? Symptomatic management; Do plan to avoid narcotics 3. Diabetes mellitus type II with uncontrolled blood glucose level -patient's oral hypoglycemics held. Placed on long acting insulin, Accu-Cheks a.c. and at bedtime and covered with sliding scale insulin ? 01/04/2023 patient has markedly elevated blood glucose levels greater than 500. Adjusted patient long-acting insulin level. Added scheduled short acting insulin 4.? 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 Patient is currently stable on Xifaxan and lactulose 5.? Depression with anxiety ? Patient is on alprazolam as needed in addition to duloxetine 6.? Anemia - Secondary to chronic disorder monitoring H&H and transfuse if patient becomes symptomatic or hemoglobin falls below? 7 7. Tobacco dependence - Counseled on cessation, offered nicotine patch for tobacco cravings 8. DVT prophylaxis ? Bilateral SCDs 9. Elevated blood pressure ? Patient does not have any history of hypertension, blood pressure this a.m. 170/95. Patient started on scheduled hydralazine Time spent in the patient's overall evaluation,decision-making process, review of diagnostic data, adjustment of management, discussion with other providers, nursing nursing and ancillary staff involved in patient's care documentation, 35 Minutes Charges/Coding Visit Charges Inpatient E&M: 78104 Subs Hosp L2
[2023-01-05 07:35] LABS: Anion Gap 6 (5-15); BUN 14 mg/dL (7-18); BUN/Creat Ratio 18.9 RATIO (10-20); Calcium,Total 9.1 mg/dL (8.5-10.1); Chloride 110 mmol/L (98-107); Creatinine, Serum 0.74 mg/dL (0.55-1.02); EST Glomerular Filtration Rate 89 mL/min (>60); Est Glom Filt Rate - Afr Amer 108 mL/min (>60); Estimated Creatinine Clearance 87.04 ml/min; Glucose 124 mg/dL (74-106); Potassium 3.8 mmol/L (3.5-5.1); Sodium Level 141 mmol/L (136-145)
[2023-01-05 07:51] LABS: Bedside Glucose 128 mg/dL (74-106)
[2023-01-05 08:37] VITALS: BP 149/96; PULSE 80; RESP 16; TEMP 36.6; O2SAT 99
[2023-01-05] MEDS: Midodrine HCl 5 MG Tablet 10 MG PO (08:51)
[2023-01-05] MEDS: Ursodiol 250 MG Tablet PO (08:52)
--- NOTE | 2023-01-05 09:20 | CASEMGMT ---
ROGER LEIJA Discharge Planning Assessment: Face to Face with patient for initial transition planning/care coordination assessment. ROGER LEIJA introduced self and role at [facility], Pt alert, oriented x4, voices understanding and is agreeable to participating in assessment.? Care providers, pharmacy,?and demographics verified. Admitting dx: narcotic induced constipation, ileus PCP: [facility] Specialists: (endocrinology), Friend (GI), [facility] Liver transplant team Preferred Pharmacy: [facility] Retail at discharge Insurance: [employer] Prescription Benefit:?yes LNOK: son (Jayme), two teenage children (17yo daughter and 16yo son), mother Theresa Living Arrangements: Pt lives with two teenage children in a single story home. Pt states she is independent with ADLs and her mother is able to assist her if needed. States her mother did stay with her and assisted with ADLs initially when she first fx her vertebrae. Transportation: Pt drives and denies any issues with transportation DME: cane, rollator, shower chair, BSC, CGM/[employer] with supplies. HHC/SNF: denies any previous providers ETOH: pt states she is a recovering alcoholic Pt's Goal/Plan: Return home with the support of her family. Pt requested a nonnarcotic pain medication in replace of the toradol she was receiving here and in addition to the lidocaine patches. Dr. Aparicio notified via backline message. DC Plan: Home Abilio Garsia RN CM
[2023-01-05] MEDS: DULoxetine Hcl 60 MG Capsule PO (09:58)
[2023-01-05] MEDS: Spironolactone 50 MG Tablet PO (09:58)
[2023-01-05] MEDS: Insulin Glargine-YFGN 100 UNIT/ML Pen 50 UNIT SC (09:59)
[2023-01-05] MEDS: Lidocaine 5% Patch 2 PATCH TOPICAL (10:00)
[2023-01-05] MEDS: Famotidine 20 MG Tablet PO (10:00)
[2023-01-05] MEDS: Pantoprazole Sodium 40 MG Tablet PO (10:00)
[2023-01-05] MEDS: Senna/Docusate Sodium 1 Tablet 2 TABLET PO (10:01)
[2023-01-05] MEDS: rifAXIMin 550 MG Tablet PO (10:01)
[2023-01-05 11:57] LABS: Bedside Glucose 303 mg/dL (74-106)
[2023-01-05] MEDS: Insulin Lispro 100 UNIT/ML INSULN.PEN SC (12:31)
== END 2023-01-05 12:43 | disposition home or self-care (01) | DRG 254 ==
LOC: ED 21:51 → MS3 12-30 01:52
PROVIDERS: Admitting Provider Family Medicine; Emergency Provider Emergency Medicine; PCP Internal Medicine; Visit Provider Internal Medicine
DX: K59.03 Drug induced constipation (principal); Z76.82 Awaiting organ transplant status; E87.1 Hypo-osmolality and hyponatremia; D63.8 Anemia in other chronic diseases classified elsewhere; K70.30 Alcoholic cirrhosis of liver without ascites; Z79.4 Long term (current) use of insulin; E11.65 Type 2 diabetes mellitus with hyperglycemia; F10.20 Alcohol dependence, uncomplicated; E55.9 Vitamin D deficiency, unspecified; E78.5 Hyperlipidemia, unspecified; W18.30XD Fall on same level, unspecified, subsequent encounter; F32.A Depression, unspecified; F41.9 Anxiety disorder, unspecified; Y90.8 Blood alcohol level of 240 mg/100 ml or more; Z96.41 Presence of insulin pump (external) (internal); S32.010D Wedge compression fracture of first lumbar vertebra, subsequent encounter for fracture with routine healing; T40.2X5A Adverse effect of other opioids, initial encounter; R03.0 Elevated blood-pressure reading, without diagnosis of hypertension; Z79.899 Other long term (current) drug therapy; Z86.16 Personal history of COVID-19; Z87.891 Personal history of nicotine dependence
CPT/HCPCS: 36415; 74018; 74176; 74250; 80048; 80053; 82306; 82947; 82962; 83690; 83735; 84100; 84484; 85025; 93005; 99283; 99406; J7030; A4216; J2405

== ENCOUNTER → 2023-01-19 | Outpatient (CLI) | payer MEDICAID, SELFPAY ==
--- NOTE | 2023-01-19 14:07 | MRI_ITS ---
EXAM: MR LUMBAR SPINE WITHOUT INTRAVENOUS CONTRAST CLINICAL INDICATION: compression fracture, RECENT FALL TECHNIQUE: Multiplanar and multisequence MR images of the lumbar spine without intravenous contrast. COMPARISON: X-ray 12/27/2022. FINDINGS: VERTEBRAE: Acute wedge compression fracture of L1 with approximately 50% loss of vertebral body height. Mild bony retrolisthesis. Normal alignment. No spondylolisthesis. There is preservation of the normal lumbar lordosis. SPINAL CORD: Unremarkable. Normal position and signal intensity of the conus medullaris. SOFT TISSUES: Unremarkable. DISCS/SPINAL CANAL/NEURAL FORAMINA: T12-L1: Normal disc height and morphology. Mild bony retrolisthesis of L1 due to the compression fracture. No canal stenosis. Normal bilateral facet joints. Normal central canal. Normal bilateral lateral recesses. Normal intervertebral neural foramina. L1-2: Normal disc height and morphology. Normal bilateral facet joints. Normal central canal. Normal bilateral lateral recesses. Normal intervertebral neural foramina. L2-3: Normal disc height and morphology. Normal bilateral facet joints. Normal central canal. Normal bilateral lateral recesses. Normal intervertebral neural foramina. L3-4: Normal disc height and morphology. Normal bilateral facet joints. Normal central canal. Normal bilateral lateral recesses. Normal intervertebral neural foramina. L4-5: Normal disc height and morphology. Normal bilateral facet joints. Normal central canal. Normal bilateral lateral recesses. Normal intervertebral neural foramina. L5-S1: Disc dehydration. Small, central, noncompressive disc protrusion. No canal or foraminal stenosis. MRI/Spine Lumbar (Routine) IMPRESSION: Acute wedge compression fracture of the L1 vertebral body. No canal stenosis. Noncompressive L5-S1 disc protrusion. Electronically Signed: Maye Murdock MD at 16:59 EDT Reading Location ID and State: [id number] / Tel , Service support ,
== END | disposition home or self-care (01) ==
LOC: MRI 14:05
PROVIDERS: PCP Internal Medicine; Referring Provider Orthopaedic Surgery; Visit Provider Orthopaedic Surgery
DX: S32.010A Wedge compression fracture of first lumbar vertebra, initial encounter for closed fracture (principal); W19.XXXA Unspecified fall, initial encounter
CPT/HCPCS: 72148

== ENCOUNTER 2023-03-10 13:57 | Emergency (ER) | payer MEDICAID, SELFPAY ==
[2023-03-10 13:57] VITALS: BP 120/75; PULSE 114; RESP 18; TEMP 35.9; O2SAT 98; BMI 21.9
--- NOTE | 2023-03-10 14:53 | RAD_ITS ---
STUDY: X-RAY - RIGHT SHOULDER REASON FOR EXAM: Female, 47 years old. FALL/PAIN TECHNIQUE: 4 view(s) of the shoulder. COMPARISON: None. FINDINGS: Normal glenohumeral articulation. Normal acromioclavicular joint. Normal acromion. Normal humeral head and visualized proximal humerus. A small linear calcific focus is present at the supraspinatus insertion site compatible with mild calcific tendinitis. The soft tissue structures are unremarkable. There is no demonstrated fracture. Normal visualized pulmonary apex. RAD/Shoulder min 2 Views IMPRESSION: 1. No demonstrated acute process. A small linear calcific focus is present at the supraspinatus insertion site compatible with mild calcific tendinitis. Electronically Signed: Alex Birch MD at 15:31 EDT ,
--- NOTE | 2023-03-10 15:40 | ED.VIS.FALL ---
HPI HPI - Fall History of Present Illness Chief Complaint: Fall PFSH PFSH Medical History Alcohol abuse Alcoholic cirrhosis of liver with ascites Alcoholism Anxiety Anxiety Asthma Back pain due to injury Bleeding tendency Breast implant status Chronic diarrhea Cirrhosis Closed head injury COVID-19 Current use of insulin Diabetes Diabetes Fatty liver Gastritis and duodenitis GERD (gastroesophageal reflux disease) H. pylori infection High cholesterol History of alcohol abuse History of stress test HLD (hyperlipidemia) HTN (hypertension) Hypertension Irritable bowel Malnutrition Migraines Nicotine abuse Pancreatitis Post-menopausal Post-menopausal Recurrent acute pancreatitis SBP (spontaneous bacterial peritonitis) Smoker Transaminitis Home Medications duloxetine 60 mg capsule,delayed release 60 mg PO DAILY depression 12/10/21 [History Last Taken 03/10/22] ursodiol 300 mg capsule 300 mg PO BID gallbladder 12/10/21 [History Last Taken 03/10/22] ondansetron 4 mg disintegrating tablet 4 mg PO Q8H PRN nausea and vomiting #14 tabs 02/09/22 [Rx Last Taken 3 Days Ago ~03/07/22] famotidine 20 mg tablet 20 mg PO BID #60 tabs 02/20/22 [Rx Last Taken 03/09/22] rifaximin 550 mg tablet (Xifaxan) 550 mg PO BID #60 tabs 02/20/22 [Rx Last Taken 03/10/22] gabapentin 300 mg capsule 900 mg PO TID nerve pain 03/10/22 [History Last Taken 03/09/22] midodrine 5 mg tablet 10 mg PO TID blood pressure 03/10/22 [History Last Taken 03/10/22] lancets #100 ea 05/02/22 [Rx Last Taken Unknown] needle (disp) #500 ea 05/02/22 [Rx Last Taken Unknown] alprazolam 0.25 mg tablet 0.25 mg PO BID PRN anxiety 08/02/22 [History Last Taken Unknown] lactulose 10 gram/15 mL oral solution 30 ml PO 3XD cirrhosis 08/02/22 [History Last Taken Unknown] pantoprazole 40 mg tablet,delayed release 40 mg PO DAILY 08/02/22 [History Last Taken Unknown] furosemide 20 mg tablet (Lasix) 40 mg PO DAILY 08/15/22 [History Last Taken Unknown] spironolactone 25 mg tablet 50 mg PO DAILY 08/15/22 [History Last Taken Unknown] insulin glargine 100 unit/mL (3 mL) subcutaneous pen (Lantus Solostar U-100 Insulin) 55 unit (0.55 mL) subcut DAILY #18 mL 08/20/22 [Rx Last Taken Unknown] blood sugar diagnostic (OneTouch Ultra Test strips) #100 ea 10/07/22 [Rx Last Taken Unknown] blood-glucose meter (OneTouch Ultra2 Meter) #1 ea 10/07/22 [Rx Last Taken Unknown] flash glucose sensor (FreeStyle Jevon 2 Sensor kit) #2 ea 10/22/22 [Rx Last Taken Unknown] Dexcom G6 Sensor (blood-glucose sensor) #3 ea 11/16/22 [Rx Last Taken Unknown] Omnipod 5 G6 Intro Kit (Gen 5) subcutaneous cartridge with controller (insulin pump cart,auto,BT-cntr) #1 ea 11/16/22 [Rx Last Taken Unknown] insulin aspart U-100 100 unit/mL (3 mL) subcutaneous pen (Novolog FlexPen U-100 Insulin aspart) 1 sliding scale dose subcut TID 12/27/22 [History Last Taken Unknown] amitriptyline 25 mg tablet 25 mg PO QHS PRN sleep 12/30/22 [History Last Taken Unknown] lidocaine 5 % topical patch 2 patch topical DAILY 30 days #60 ea 01/04/23 [Rx Last Taken Unknown] sennosides 8.6 mg-docusate sodium 50 mg tablet (Stool Softener-Stimulant Laxative) 2 tab PO BID #60 tabs 01/04/23 [Rx Last Taken Unknown] tramadol 50 mg tablet 50 mg PO Q8H PRN pain #20 tabs 01/05/23 [Rx Last Taken Unknown] blood-glucose transmitter (Dexcom G6 Transmitter device) #1 ea 02/20/23 [Rx Last Taken Unknown] Allergy/AdvReac Type Severity Reaction Status Date / Time azithromycin [From Zithromax] AdvReac Diarrhea Verified 03/10/23 13:59 codeine AdvReac Nausea Verified 03/10/23 13:59 promethazine [From Phenergan] AdvReac Vomiting Verified 03/10/23 13:59 Family History Father Cancer Lung CA with tobacco use history. Heart disease Mother Cancer Hx breast CA. Diabetes Hypertension Other Alcoholic cirrhosis of liver with ascites Breast cancer High cholesterol Liver disease Osteoporosis Skin cancer Surgical History H/O breast augmentation H/O: knee surgery Previous section S/P tonsillectomy and adenoidectomy Social History housing: other details: Lives at home, her 15, 16 year old children live with her. 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 substance use type: does not use what type of physical activity do you participate in: none EXAM Physical Exam Const Vital Signs: 03/10/23 13:57 Temperature 96.7 F L Temperature Source Temporal Pulse Rate 114 H Respiratory Rate 18 Blood Pressure 120/75 Blood Pressure Mean 90 Pulse Ox 98 Oxygen Delivery Method Room Air MDM MDM MDM Narrative Medical decision making narrative: HISTORY OF PRESENT ILLNESS: 47-year-old female here with right shoulder pain. States she fell lost her balance yesterday and injured her right shoulder. Denies any head trauma or loss of consciousness. REVIEW OF SYSTEMS: Pertinent positives: Right shoulder pain Pertinent negatives: numbness, tingling PHYSICAL EXAM: Nursing triage notes reviewed, Vital signs reviewed Constitutional: please see mdm HENT: MMM Eyes: Pupils equal round and reactive to light, Extraocular muscles intact Neck: No stridor, no JVD, full neck ROM, no cervical spine step-offs or deformities Lungs: Clear to auscultation, No wheezing or rales. No increased work of breathing, no conversational dyspnea, no accessory muscle use, no nasal flaring. No respiratory distress noted Heart: Regular rate and rhythm, No murmurs, No rubs and No gallops, 2+ distal pulses (radial, femoral, posterior tibial) in all extremities Abdomen: Soft, there is no tenderness, rigidity, rebound or guarding, no obvious peritoneal signs, no palpable pulsatile abdominal masses, no auscultated abdominal bruit : No CVAT Extremities: No edema, TTP over the right pectoralis, right deltoid, Neuro: Intact 5/5 strength with ok sign (median), intact finger abduction (ulnar) intact wrist extension (radial n). Intact sensation in the radial, ulnar, and median nerve distributions. Skin: No rash or lesions noted MEDICAL DECISION MAKING: Chief Complaint: Right shoulder pain External records reviewed: Recent advanced imaging of the involved extremity Factors affecting care: Liver cirrhosis, type 2 diabetes, Social determinants of health: Flores abuse History obtained from others: none Consults: none [facility] Narrative: Patient was initially tachycardic otherwise hemodynamically stable afebrile and nontoxic-appearing. Exam without obvious deformity to the right upper extremity. Right upper extremity is neurovascular intact. No clinical evidence to suggest arterial occlusion, DVT, compartment syndrome, necrotizing fasciitis. I considered the following differential diagnosis: Shoulder fracture, dislocation, contusion, rotator cuff strain ALL IMAGES (IF OBTAINED) HAVE BEEN PERSONALLY REVIEWED AND INTERPRETED BY MYSELF. X-ray of the right shoulder was personally read reviewed myself shows no evidence of obvious dislocation fracture or other bony abnormality. The patient and/or family, caregivers express understanding. The patient and/or family, caregivers agrees with the plan. Shared decision making: I will have a discussion with the patient and or visitors regarding risk/benefits of further testing or admission. They will be made aware of of the risk/benefits inherent in this decision they will be given the opportunity to voice understanding. Total critical care time today provided was at least 0 minutes. This excludes separately billable procedures. Critical care time (if documented) is secondary to the patient having high probability of clinically significant/life threatening deterioration in the patient's condition which required my urgent intervention. Impression: 1. Right shoulder strain 2. Right shoulder calcific tendinitis Dispo: Discharge Radiography Diagnostic Testing: Clinical Impression(s) from Imaging Studies Shoulder X-Ray 03/10/23 14:53 IMPRESSION: 1. No demonstrated acute process. A small linear calcific focus is present at the supraspinatus insertion site compatible with mild calcific tendinitis. Electronically Signed: Alex Birch MD at 15:31 EDT Reading Location ID and State: [address] [place] [address] , Service support , Discharge Plan Triage Chief Complaint: Fall ED Provider: Abhinav Matthews Dx/Rx/DC Orders Instructions: ED Shoulder Sprain Prescriptions: No Action alprazolam 0.25 mg tablet 0.25 mg PO BID PRN (Reason: anxiety) pantoprazole 40 mg tablet,delayed release (DR/EC) 40 mg PO DAILY (DME) Omnipod 5 G6 Intro Kit (Gen 5) Cartridge See Rx Instructions .Route Qty: 1 0RF Rx Instructions: As directed (DME) Dexcom G6 Sensor Device See Rx Instructions .Route Qty: 3 6RF Rx Instructions: As directed ursodiol 300 mg capsule 300 mg PO BID Patient Comments: take 1 capsule by mouth twice a day duloxetine 60 mg capsule,delayed release(DR/EC) 60 mg PO DAILY Patient Comments: take 1 capsule by mouth once daily ondansetron 4 mg tablet,disintegrating 4 mg PO Q8H PRN (Reason: nausea and vomiting) Qty: 14 0RF famotidine 20 mg Tablet 20 mg PO BID Qty: 60 1RF Xifaxan 550 mg Tablet 550 mg PO BID Qty: 60 1RF midodrine 5 mg tablet 10 mg PO TID Patient Comments: TAKE TWO TABLETS (10 MG)CBY MOUTH 3 TIMES A DAY WITH MEALS gabapentin 300 mg capsule 900 mg PO TID Patient Comments: take 1 capsule by mouth three times a day as directed lactulose 10 gram/15 mL solution 30 ml PO 3XD Patient Comments: TAKE 30 ML BY MOUTH 4CTIMES A DAY (DME) lancets Misc See Rx Instructions .Route Qty: 100 0RF Rx Instructions: As directed (DME) needle (disp) Needle See Rx Instructions .Route Qty: 500 0RF Rx Instructions: As directed spironolactone 25 mg tablet 50 mg PO DAILY furosemide [Lasix] 20 mg tablet 40 mg PO DAILY amitriptyline 25 mg tablet 25 mg PO QHS PRN sennosides-docusate sodium [Stool Softener-Stimulant Laxat] 8.6-50 mg Tablet 2 tab PO BID Qty: 60 0RF lidocaine 5 % Adhesive Patch,Medicated 2 patch topical DAILY 30 Days Qty: 60 0RF Protocol: *Topical Application Instructions APPLICATION INSTRUCTIONS: Lumbar spine tramadol 50 mg tablet 50 mg PO Q8H PRN (Reason: pain) Qty: 20 0RF insulin aspart U-100 [Novolog FlexPen U-100 Insulin] 100 unit/mL (3 mL) insulin pen 1 sliding scale dose subcut TID insulin glargine [Lantus Solostar U-100 Insulin] 100 unit/mL (3 mL) insulin pen 55 unit subcut DAILY Qty: 18 3RF (DME) blood-glucose meter [OneTouch Ultra2 Meter] Misc See Rx Instructions .Route Qty: 1 0RF Rx Instructions: As directed (DME) OneTouch Ultra Test Strip See Rx Instructions .Route Qty: 100 5RF Rx Instructions: TID (DME) FreeStyle Jevon 2 Sensor Kit See Rx Instructions .Route Qty: 2 1RF Rx Instructions: As directed (DME) Dexcom G6 Transmitter Device See Rx Instructions .Route Qty: 1 3RF Rx Instructions: As directed Stand Alone Forms: ED Work / School Excuse Primary Care Provider: Valerie Mullins Referrals: Valerie Mullins MD [Primary Care Provider] - Activity Restrictions/Additional Instructions: Thank you for trusting us with your care today! Please take Tylenol (2 pills, 650 mg), ibuprofen (2 pills, 400 mg) every 6 hours as needed for pain and fever control. Please return to the emergency department if your symptoms change or worsen. Please follow with your primary care physician for further outpatient evaluation and management. Disposition Disposition: Home, Self Care
== END 2023-03-10 16:12 | disposition home or self-care (01) ==
LOC: ED 16:09
PROVIDERS: Emergency Provider Emergency Medicine; PCP Internal Medicine; Visit Provider Emergency Medicine
DX: S46.911A Strain of unspecified muscle, fascia and tendon at shoulder and upper arm level, right arm, initial encounter (principal); K74.60 Unspecified cirrhosis of liver; M75.31 Calcific tendinitis of right shoulder; K76.0 Fatty (change of) liver, not elsewhere classified; W19.XXXA Unspecified fall, initial encounter; Z86.16 Personal history of COVID-19; Z87.891 Personal history of nicotine dependence
CPT/HCPCS: 73030; 96374; 99282

== ENCOUNTER → 2023-03-16 | Outpatient (CLI) | payer MEDICAID, SELFPAY ==
--- NOTE | 2023-03-16 13:05 | NEURO ---
NCS and/or EMG Patient Report Ordering Doctor: Valerie Mullins DATE OF SERVICE: 03/16/23 Zara presents for electrodiagnostic testing of the upper limbs. She reports numbness and tingling in both hands. Electrodiagnostic findings: Right median motor nerve demonstrates prolonged distal latency with normal amplitude and reduced conduction velocity. Left median motor nerve demonstrates normal distal latency and amplitude with reduced conduction velocity. Right ulnar motor response is within normal limits left ulnar motor response demonstrates mildly decreased conduction velocity, without evidence of conduction block at the elbow. Prolonged median and ulnar F waves. Median sensory latency is prolonged at the wrist bilaterally absent median palmar latency bilaterally. Normal ulnar and radial sensory responses. Needle EMG testing was performed the upper limbs. 1+ fibrillations noted in the left pronator teres. Other muscles tested showed no evidence of denervation with normal motor unit action potentials. Electrodiagnostic impression: This is an abnormal study in the upper limbs 1. Electrodiagnostic findings are suggestive of bilateral median mononeuropathy. This is consistent with a mild to moderate bilateral carpal tunnel syndrome. 2. No electrodiagnostic evidence is noted for cervical radiculopathy. Multi Select Codes Neurology Neurology Interp Codes: 74545-31 Musc test done w/n test comp (interp) (2) and 30794-57 Nrv cndj test 13/> studies (interp)
== END | disposition home or self-care (01) ==
LOC: PSN 10:36
PROVIDERS: PCP Internal Medicine; Referring Provider Internal Medicine; Visit Provider Internal Medicine
DX: G56.03 Carpal tunnel syndrome, bilateral upper limbs (principal); G62.9 Polyneuropathy, unspecified
CPT/HCPCS: 95886; 95913

== ENCOUNTER → 2023-04-05 | Outpatient (CLI) | payer MEDICAID, SELFPAY ==
--- NOTE | 2023-04-05 15:44 | BD_ITS ---
STUDY: DUAL ENERGY X-RAY ABSORPTIOMETRY / DXA REASON FOR EXAM: Female, 47 years old. Recent L1 fracture TECHNIQUE: Bone Mineral Density (BMD) measurements of lumbar spine and bilateral hips were obtained. COMPARISON: None. FINDINGS: Lumbar Spine (L1-L4): g/cm2 (0.940) / T-score (-1.5) / Z-score (-0.8) Findings are suggestive of osteopenia with a low fracture risk. Left Femur Total: g/cm2 (0.791) / T-score (-1.2) / Z-score (-0.8) Left Femoral Neck: g/cm2 (0.611) / T-score (-2.1) / Z-score (-1.5) Right Femur Total: g/cm2 (0.729) / T-score (-1.7) / Z-score (-1.3) Right Femoral Neck: g/cm2 (0.587) / T-score (-2.4) / Z-score (-1.7) BD/Dexa Bone Density Study IMPRESSION: The patient is considered osteopenic as outlined below according to World Abraham Organization (WHO) criteria with a high fracture risk. Reference Information: The T-score is the number of standard deviations above or below the standard which is normal for young adults at their peak bone mineral density. The World Health Organization (WHO) interprets the T-scores as follows: Above -1 Normal bone density Between -1 and -2.5 Osteopenia Equal to / or below -2.5 Osteoporosis As a practical clinical guideline, osteopenia may be graded as follows: Mild -1 through -1.5 Moderate -1.6 through -2.0 Severe -2.1 through -2.4 The Z-score is the number of standard deviations above or below age-matched controls. A Z-score of less than -1.5 would be considered abnormal. References: 1. NIH Osteoporosis and Related Bone Diseases www osteo.org 2. International Society for Clinical Densitometry www iscd.org 3. National Osteoporosis Foundation www nof.org Electronically Signed: Denzel Quijano MD at 14:49 EST ,
== END | disposition home or self-care (01) ==
LOC: OPBD 15:40
PROVIDERS: PCP Internal Medicine; Referring Provider Orthopaedic Surgery Orthopaedic Surgery of the Spine; Visit Provider Orthopaedic Surgery Orthopaedic Surgery of the Spine
DX: Z13.820 Encounter for screening for osteoporosis (principal)
CPT/HCPCS: 77080

== ENCOUNTER 2023-05-05 14:30 | Outpatient (RCR) | payer MEDICAID, SELFPAY ==
--- NOTE | 2023-04-08 09:21 | HP.PTEVAL_ITS ---
Patient's Visit Information Visit Information Visit Information: DAVID TATE is a 47 year old F referred to Physical Therapy by Dr. Son Peterson MD with a diagnosis of SPONDYLOLYSIS ,LUMBAR. Date of Evaluation: 04/07/23 Physical Therapist: Charles Bartholomew, PT, Cert MDT, OCS Visit Plan Frequency: 2x /Week Duration: 4 Weeks Plan: PRECAUTION: KYPHOPLASTY COMPRRESSION FX L1 PT INTERVENTIONS DLS ,POSTURAL EX'S ,FUNCTIONAL STRENGTHENING ,BLE -QUADS/HAMS ESPECIALLY HIP STRENGTHENING ,AND BALANCE PROGRAM Subjective Subjective: This 47 y/o female presents physical therapy with spondylolysis lumbar. Patient had fell at home ~ 2months ago causing compression fracture thus had kyphoplasty in Dec by Dr Perry. Patient had MRI showed L5-S1 spondyl olysis. Patient seen Dr Lassiter who recommended to Dr Peterson for consult. Dr Recommended PT and pain management by Dr Perry. Patient dexa scan ( bone density test) yesterday. No medication. Possible lumbar fusion L5-S1 if doesn't get better. Patient has comorbities with liver failure needs a liver transplant. Patient uses cane for balance. Patient pain located symmetrical lumbar. Aggravating factors standing ,walking ,bending lifting which affects housework tasks and ADLS . Alleviating rest. Coughing/sneezing + Bowel/bladder-. C/O parestehesia hands/feet from neuropathy. Patient sleeping okay. Patient has had falls in past. Patient condition affects QOL and function. Patient goals to have no more pain. 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 Back: Pain Intensity (Out of 10): 6 Pain Intensity Range: 10 Objective Objective: POSTURE: mild forward posture GAIT: ambulates with cane unsteady gait slow costa mild forward posture NEURO: c/o paresthesia/tingling feet/hands SYMMTRIES: align PALPATION: tender SI/LS LUMBAR ROM: flexion mod loss ,extension mod loss , side glides mod loss MMT: ( peak force) quads left 17.8 ,right 19.8 ,hamstring 17.8 left ,right 18.8 ,hip flexion right 12.4 ,left 12.7 ,abduction 9.9 left ,right 10.1 Special Tests L/S Slump test left side: Negative L/S Slump test right side: Negative L/S Left Straight Leg Raise: Negative L/S Right Straight Leg Raise: Negative Balance/Special Test Scores CATSIB Score (Max score 120 seconds): 55 Oswestry Low Back Score: 32 Goals Goal 1:: Patient to be I with HEP Goal Time Frame: 4-6 Weeks Goal 2:: Patient improve peak force quads/hams/hip by 5-10# strength to improve gait Goal Time Frame: 4-6 Weeks Goal 3:: Patient to improve back oswestry score by 5 points or > to improve QOL and function Goal Time Frame: 4-6 Weeks Goal 4:: Patient to improve lumbar ROM for function of recovery for ADLS Goal Time Frame: 4-6 Weeks Goal 5:: Patient to improve demonstrate 50% improvement with less pain and improved function Goal 6:: Patient to improve CATSIB by 5-10 points to improve balance and decrease risk falls Goal Time Frame: 4-6 Weeks Rehabilitation Potential Physical Therapy Diagnosis: This patient has h/o lumbar L1 compression fx with kyphoplasty and lumbar spondylolysis with weakens legs ,decrease gait and ba toni thus benefit skilled PT Rehabilitation Potential: Good Anticipated Interventions Patient/Client Instruction: Educate patient on: Condition and Plan of Care For the Purpose of:: To decrease pain, To increase ROM, To improve muscle performance and motor function, To improve ability to perform ADL's, To increase tolerance to activity/condition/position, To improve ability of physical actions for home/community/work/leisure, To improve gait and locomotor functions, To increase flexibility/ROM, To improve endurance, To improve balance and To improve tolerance to ADL's Therapeutic Exercise to Include: Strength training, Endurance training, Balance training, Postural training, Flexibilty training and Dynamic Lumbar Stabilization Comment: BLE For the Purpose of:: To decrease pain, To increase ROM, To improve muscle perfo rmance and motor function, To increase tolerance to activity/condition/position, To improve ability of physical actions for home/community/work/leisure, To improve gait and locomotor functions, To decrease soft tissue restriction, To increase flexibility/ROM, To improve endurance, To improve balance, To prevent re-injury and To improve tolerance to ADL's Text: Thank you for the opportunity to evaluate your patient. For Medicare and Medicare HMO plans, please review the plan of care and approve it. It will need to be FAXED BACK to us at [phone] for Medicare purposes. For Medicare only, by signing this I certify the plan of care. Please let me know if there are questions or concerns regarding this plan of care. Physician Signature: Date:
--- NOTE | 2023-09-12 16:51 | HP.PT.NRP ---
Patient Information Patient Information: DAVID TATE was seen in my office for initial evaluation on 04/07/23. The following Plan of Care was established for this patient: POC Established Initial Frequency: 2x /Week Initial Duration: 4 Weeks Anticipated Interventions Patient/Client Instruction: Educate patient on: Condition and Plan of Care For the Purpose of:: To decrease pain, To increase ROM, To improve muscle performance and motor function, To improve ability to perform ADL's, To increase tolerance to activity/condition/position, To improve ability of physical actions for home/community/work/leisure, To improve gait and locomotor functions, To increase flexibility/ROM, To improve endurance, To improve balance and To improve tolerance to ADL's Therapeutic Exercise to Include: Strength training, Endurance training, Balance training, Postural training, Flexibilty training and Dynamic Lumbar Stabilization For the Purpose of:: To decrease pain, To increase ROM, To improve muscle performance and motor function, To increase tolerance to activity/condition/position, To improve ability of physical actions for home/community/work/leisure, To improve gait and locomotor functions, To decrease soft tissue restriction, To increase flexibility/ROM, To improve endurance, To improve balance, To prevent re-injury and To improve tolerance to ADL's Last Seen Last Seen: This patient was last seen in our office . Pertinent comments regarding their Physical therapy will appear below: Patient was seen for kyphoplasty lumbar for HEP At this point I will be discontinuing this patient from physical therapy. I would be happy to see this patient again in the future if found appropriate by the physician. Thank you! Charles Bartholomew, PT, Cert MDT, OCS Balance/Gait/Functional tests Balance/Special Test Scores CATSIB Score (Max score 120 seconds): 55 Oswestry Low Back Score: 32
== END 2023-05-05 19:00 | disposition home or self-care (01) ==
LOC: PT 14:30
PROVIDERS: PCP Internal Medicine; Visit Provider Orthopaedic Surgery Orthopaedic Surgery of the Spine
DX: M43.06 Spondylolysis, lumbar region (principal)
CPT/HCPCS: 97110; 97162

== ENCOUNTER 2023-06-21 21:32 | Emergency (ER) | payer MEDICAID, SELFPAY ==
[2023-06-21 21:34] VITALS: BP 103/80; PULSE 81; RESP 18; TEMP 35.7; O2SAT 98; BMI 21.7
--- NOTE | 2023-06-21 21:46 | EDS_ITS ---
HPI History of Present Illness Chief Complaint: Hyperglycemia Narrative Narrative: 47-year-old female past medical history of insulin-dependent diabetes, has an insulin pump, states that she ran out of her insulin today. She is not due for a prescription refill until a week from now. She states that her pump was telling her that it was empty and that she needed to refill the pod, but she cannot find her insulin. She states she has a headache, that her blood sugars shot up to over 400. She states her sugars usually run in the 130s and vary. She presents because of the reported elevated blood sugars from not having any insulin in her pump. [facility] Medical History Alcohol abuse Alcoholic cirrhosis of liver with ascites Alcoholism Anxiety Anxiety Asthma Back pain due to injury Bleeding tendency Breast implant status Chronic diarrhea Cirrhosis Closed head injury COVID-19 Current use of insulin Diabetes Diabetes Fatty liver Gastritis and duodenitis GERD (gastroesophageal reflux disease) H. pylori infection High cholesterol History of alcohol abuse History of stress test HLD (hyperlipidemia) HTN (hypertension) Hypertension Insulin pump titration Irritable bowel Malnutrition Migraines Nicotine abuse Pancreatitis Post-menopausal Post-menopausal Presence of insulin pump Recurrent acute pancreatitis SBP (spontaneous bacterial peritonitis) Smoker Transaminitis Home Medications duloxetine 60 mg capsule,delayed release 60 mg PO DAILY depression 12/10/21 [History Last Taken 03/10/22] ursodiol 300 mg capsule 300 mg PO BID gallbladder 12/10/21 [History Last Taken 03/10/22] ondansetron 4 mg disintegrating tablet 4 mg PO Q8H PRN nausea and vomiting #14 tabs 02/09/22 [Rx Last Taken 3 Days Ago ~03/07/22] rifaximin 550 mg tablet (Xifaxan) 550 mg PO BID #60 tabs 02/20/22 [Rx Last Taken 03/10/22] gabapentin 300 mg capsule 900 mg PO TID nerve pain 03/10/22 [History Last Taken 03/09/22] midodrine 5 mg tablet 10 mg PO TID blood pressure 03/10/22 [History Last Taken 03/10/22] lancets #100 ea 05/02/22 [Rx Last Taken Unknown] needle (disp) #500 ea 05/02/22 [Rx Last Taken Unknown] alprazolam 0.25 mg tablet 0.25 mg PO BID PRN anxiety 08/02/22 [History Last Taken Unknown] lactulose 10 gram/15 mL oral solution 30 ml PO 3XD cirrhosis 08/02/22 [History Last Taken Unknown] pantoprazole 40 mg tablet,delayed release 40 mg PO DAILY 08/02/22 [History Last Taken Unknown] furosemide 20 mg tablet (Lasix) 40 mg PO DAILY 08/15/22 [History Last Taken Unknown] spironolactone 25 mg tablet 50 mg PO DAILY 08/15/22 [History Last Taken Unknown] blood sugar diagnostic (OneTouch Ultra Test strips) #100 ea 10/07/22 [Rx Last Taken Unknown] blood-glucose meter (OneTouch Ultra2 Meter) #1 ea 10/07/22 [Rx Last Taken Unknown] Dexcom G6 Sensor (blood-glucose sensor) #3 ea 11/16/22 [Rx Last Taken Unknown] Omnipod 5 G6 Intro Kit (Gen 5) subcutaneous cartridge with controller (insulin pump cart,auto,BT-cntr) #1 ea 11/16/22 [Rx Last Taken Unknown] amitriptyline 25 mg tablet 25 mg PO QHS PRN sleep 12/30/22 [History Last Taken Unknown] lidocaine 5 % topical patch 2 patch topical DAILY 30 days #60 ea 01/04/23 [Rx L ast Taken Unknown] blood-glucose transmitter (Dexcom G6 Transmitter device) #1 ea 02/20/23 [Rx Last Taken Unknown] insulin aspart U-100 100 unit/mL subcutaneous solution (Novolog U-100 Insulin aspart) 100 unit continuous subcutaneous infusion .continuous #90 mL 03/16/23 [Rx Last Taken Unknown] blood-glucose transmitter (Dexcom G6 Transmitter device) #1 ea 03/30/23 [Rx Last Taken Unknown] insulin pump cart,automated,BT (Omnipod 5 G6 Pods (Gen 5) subcutaneous cartridge) #10 ea 04/19/23 [Rx Last Taken Unknown] insulin lispro 100 unit/mL subcutaneous solution See Rx Instructions .Route .COMPLEX #10 mL 06/21/23 [Rx Last Taken Unknown] pregabalin 50 mg capsule 50 mg PO Q12H 06/21/23 [History Last Taken Unknown] Allergy/AdvReac Type Severity Reaction Status Date / Time azithromycin [From Zithromax] AdvReac Diarrhea Verified 06/21/23 21:33 codeine AdvReac Nausea Verified 06/21/23 21:33 promethazine [From Phenergan] AdvReac Vomiting Verified 06/21/23 21:33 Family History Father Cancer Lung CA with tobacco use history. Heart disease Mother Cancer Hx breast CA. Diabetes Hypertension Other Alcoholic cirrhosis of liver with ascites Breast cancer High cholesterol Liver disease Osteoporosis Skin cancer Surgical History H/O breast augmentation H/O: knee surgery Previous section S/P tonsillectomy and adenoidectomy Social History housing: other details: Lives at home, her 15, 16 year old children live with her. 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 substance use type: does not use what type of physical activity do you participate in: none ROS ROS ED ROS Narrative Constitutional: No fever, no chills. Elevated blood sugars. HEENT: No sore throat. No neck pain. No loss of vision. No rhinorrhea. Cardiovascular: No chest pain. No palpitations. No pedal edema. Respiratory: No cough, no shortness of breath. Abdominal: No abdominal pain. No nausea. No vomiting. Genitourinary: No dysuria. No hematuria. Musculoskeletal: No myalgias. No arthralgias. Neurologic: Positive headaches. No dizziness. No lightheadedness. Skin: No rash. No change in color. Psychiatric: No depression. No anxiety. EXAM Physical Exam Narrative Exam Narrative: Afebrile. Vital signs noted. HEENT: Normocephalic. Atraumatic. PERRL, EOMI. Neck soft and supple. No point tenderness or step off. Cardiovascular: Regular rate and rhythm. No murmurs, rubs, or gallops appreciated. Respiratory: No tachypnea. Lungs clear to auscultation bilaterally. Gastrointestinal: Abdomen soft, nontender, with normoactive bowel sounds. No rebound or guarding. Neurological: Awake. Alert. Nonfocal, nonlateralizing. Skin: No rash. Normal color. No pallor. Musculoskeletal: No pedal edema. Full range of motion extremities. Const Vital Signs: 06/21/23 21:34 06/21/23 21:42 Temperature 96.3 F L Temperature Source Temporal Pulse Rate 81 Respiratory Rate 18 Respiratory Effort Normal Blood Pressure 103/80 Blood Pressure Mean 87 Pulse Ox 98 Oxygen Delivery Method Room Air MDM MDM MDM Narrative Medical decision making narrative: Given her reported elevated blood sugars, concern would be for diabetic ketoacidosis versus hyperglycemia with history of diabetes because of lack of insulin in her pump. I have lower concern for diabetic ketoacidosis given that its only been a few hours since she ran out of insulin. Blood glucose will be checked here. I will obtain a CBC, CMP, and acetone levels. She will be bolused normal saline intravenously. I reviewed her laboratory work and she has normal white count of 6.3, hemoglobin 12.4, hematocrit 38.2, platelet count normal at 202. She has a BUN of 16 and creatinine of 1.06, glucose is elevated at 348 with normal LFTs. Sodium is slightly low at 134 which I think is secondary to her hyperglycemia. Potassium normal at 3.6, chloride normal at 100. She has normal anion gap of 5 so I have low concern for diabetic ketoacidosis. Additionally, her acetone level is negative. Her blood sugar came down to the 290s. She was started on her second bolus, and she had been given insulin 10 units intravenously. Approximately 30 minutes later, her blood sugar is 188. So as not to bottom her out, her IV fluids were stopped. I did discuss with the pharmacist getting her a vial of insulin so that she can refill her insulin pump at home. At this point in time, as her blood sugars have lowered with IV fluids and insulin, I feel she can be discharged to follow-up with her primary care provider and/or an caramel cutter helper. Return instructions to the emergency department were reviewed. Disposition is discharged home in stable condition. History & Record Review Discussion w/independent historian: Patient Additional record(s) reviewed:: Prior ED visit Lab Data Attestation: I reviewed the patient's lab results. Labs: Laboratory Results - last 24 hr 06/21/23 06/21/23 21:55 22:08 WBC 6.3 RBC 3.88 L Hgb 12.4 Hct 38.2 MCV 98.5 MCH 32.0 MCHC 32.5 RDW Std Deviation 46.3 H RDW Coeff of Teressa 12.9 Plt Count 202 MPV 9.4 Immature Gran % (Auto) 0.300 Neut % (Auto) 52.4 Lymph % (Auto) 37.9 [place] % (Auto) 6.0 Eos % (Auto) 2.9 Baso % (Auto) 0.5 Absolute Neuts (auto) 3.3 Absolute Lymphs (auto) 2.39 Nucleated RBC % 0 Sodium 134 L Potassium 3.6 Chloride 100 Carbon Dioxide 29.0 Anion Gap 5 BUN 16 Creatinine 1.06 H Estim Creat Clear Calc 60.76 Est GFR (MDRD) Af Amer 71 Est GFR (MDRD) Non-Af 59 L BUN/Creatinine Ratio 15.1 Glucose 348 H Calcium 9.8 Total Bilirubin 0.60 AST 25 ALT 39 Alkaline Phosphatase 100 Total Protein 7.8 Albumin 3.9 Globulin 3.9 Albumin/Globulin Ratio 1.0 Acetone Level NEGATIVE POC Glucose 293 H Management Discussion w/another healthcare provider: Pharmacist Discharge Plan Triage Chief Complaint: Hyperglycemia ED Provider: Pratik Olson Dx/Rx/DC Orders Clinical Impression: Medication refill, Hyperglycemia, Presence of insulin pump Instructions: ED Diabetic Hyperglycemia Prescriptions: New insulin lispro 100 unit/mL solution See Rx Instructions .ROUTE .COMPLEX Qty: 10 0RF Rx Instructions: Fill insulin pump as previously directed No Action alprazolam 0.25 mg tablet 0.25 mg PO BID PRN (Reason: anxiety) pantoprazole 40 mg tablet,delayed release (DR/EC) 40 mg PO DAILY (DME) Omnipod 5 G6 Intro Kit (Gen 5) Cartridge See Rx Instructions .Route Qty: 1 0RF Rx Instructions: As directed (DME) Dexcom G6 Sensor Device See Rx Instructions .Route Qty: 3 6RF Rx Instructions: As directed ursodiol 300 mg capsule 300 mg PO BID Patient Comments: take 1 capsule by mouth twice a day duloxetine 60 mg capsule,delayed release(DR/EC) 60 mg PO DAILY Patient Comments: take 1 capsule by mouth once daily ondansetron 4 mg tablet,disintegrating 4 mg PO Q8H PRN (Reason: nausea and vomiting) Qty: 14 0RF Xifaxan 550 mg Tablet 550 mg PO BID Qty: 60 1RF midodrine 5 mg tablet 10 mg PO TID Patient Comments: TAKE TWO TABLETS (10 MG)CBY MOUTH 3 TIMES A DAY WITH MEALS gabapentin 300 mg capsule 900 mg PO TID Patient Comments: take 1 capsule by mouth three times a day as directed lactulose 10 gram/15 mL solution 30 ml PO 3XD Patient Comments: TAKE 30 ML BY MOUTH 4CTIMES A DAY (DME) lancets Misc See Rx Instructions .Route Qty: 100 0RF Rx Instructions: As directed (DME) needle (disp) Needle See Rx Instructions .Route Qty: 500 0RF Rx Instructions: As directed spironolactone 25 mg tablet 50 mg PO DAILY furosemide [Lasix] 20 mg tablet 40 mg PO DAILY amitriptyline 25 mg tablet 25 mg PO QHS PRN lidocaine 5 % Adhesive Patch,Medicated 2 patch topical DAILY 30 Days Qty: 60 0RF Protocol: *Topical Application Instructions APPLICATION INSTRUCTIONS: Lumbar spine pregabalin 50 mg capsule 50 mg PO Q12H Patient Comments: take 1 capsule by mouth twice a day (DME) blood-glucose meter [OneTouch Ultra2 Meter] Misc See Rx Instructions .Route Qty: 1 0RF Rx Instructions: As directed (DME) OneTouch Ultra Test Strip See Rx Instructions .Route Qty: 100 5RF Rx Instructions: TID (DME) Dexcom G6 Transmitter Device See Rx Instructions .Route Qty: 1 3RF Rx Instructions: As directed insulin aspart U-100 [Novolog U-100 Insulin aspart] 100 unit/mL solution 100 unit continuous subcutaneous infusion .continuous Qty: 90 5RF (DME) Dexcom G6 Transmitter Device See Rx Instructions .Route Qty: 1 0RF Rx Instructions: x1 (DME) Omnipod 5 G6 Pods (Gen 5) Cartridge See Rx Instructions .Route Qty: 10 6RF Rx Instructions: As directed Primary Care Provider: Valerie Mullins Referrals: Valerie Mullins MD [Primary Care Provider] - 3-5 Days if not improving Activity Restrictions/Additional Instructions: Refill your insulin in 7 days as planned. Follow-up with your primary care provider/caramel cutter helper. Resume your previous settings on your insulin pump. Disposition Disposition: Home, Self Care
[2023-06-21] MEDS: 0.9% Normal Saline (1000mL) 1,000 ML 999 ML IV ×2 (21:58→23:00)
[2023-06-21 22:04] LABS: Absolute Lymphocyte Count 2.39 X10^3/uL (0.83-4.51); Absolute Neutrophil Count 3.3 X10^3/uL (2.0-7.7); Basophil# 0.03 X10^3/uL; Basophil% 0.5 % (0-1); Eosinophil# 0.18 X10^3/uL; Eosinophils% 2.9 % (0-5); Hematocrit 38.2 % (37-47); Hemoglobin 12.4 g/dL (12.0-15.0); Lymphocyte # 2.39 X10^3/ul (0.83-4.51); Lymphocyte % 37.9 % (19-41); Mean Corp Hgb Conc 32.5 g/dL (32-36); Mean Corpuscular Volume 98.5 fL (81-99); Mean Platelet Vol. 9.4 fl (6.2-12.0); Monocyte# 0.38 X10^3/uL; NRBC Flagged by Analyzer 0 % (0-5); Neutrophil % 52.4 % (47-70); Platelet Count 202 K/mm3 (150-450); RBC Distribution Width CV 12.9 % (11.6-14.6); RBC Distribution Width SD 46.3 fl (35.1-43.9); Red Blood Count 3.88 M/mm3 (4.2-5.4); White Blood Count 6.3 K/mm3 (4.4-11.0)
[2023-06-21 22:19] LABS: AST(SGOT) 25 U/L (15-37); Alanine Aminotransfer ALT/SGPT 39 U/L (13-56); Albumin, Serum 3.9 g/dL (3.2-5.0); Alkaline Phosphatase 100 U/L (45-117); Anion Gap 5 (5-15); BUN 16 mg/dL (7-18); BUN/Creat Ratio 15.1 RATIO (10-20); Calcium,Total 9.8 mg/dL (8.5-10.1); Chloride 100 mmol/L (98-107); Creatinine, Serum 1.06 mg/dL (0.55-1.02); EST Glomerular Filtration Rate 59 mL/min (>60); Est Glom Filt Rate - Afr Amer 71 mL/min (>60); Estimated Creatinine Clearance 60.76 ml/min; Globulin 3.9 g/dL (2.2-4.2); Glucose 348 mg/dL (74-106); Potassium 3.6 mmol/L (3.5-5.1); Protein, Total 7.8 g/dL (6.4-8.2); Sodium Level 134 mmol/L (136-145)
[2023-06-21 22:26] LABS: Bedside Glucose 293 mg/dL (74-106)
[2023-06-21 23:52] VITALS: BP 105/78; PULSE 70; RESP 16; O2SAT 97
[2023-06-21 23:53] LABS: Bedside Glucose 188 mg/dL (74-106)
== END 2023-06-21 23:56 | disposition home or self-care (01) ==
PROVIDERS: Emergency Provider Emergency Medicine; PCP Internal Medicine; Visit Provider Emergency Medicine
DX: E11.65 Type 2 diabetes mellitus with hyperglycemia (principal); Z79.4 Long term (current) use of insulin; Z96.41 Presence of insulin pump (external) (internal); F17.290 Nicotine dependence, other tobacco product, uncomplicated; Z76.0 Encounter for issue of repeat prescription; Z79.899 Other long term (current) drug therapy; Z86.16 Personal history of COVID-19
CPT/HCPCS: 80053; 82009; 82962; 85025; 96360; 96361; 99283; J7030

== ENCOUNTER 2023-07-31 22:32 | Emergency (ER) | payer MEDICAID, SELFPAY ==
[2023-07-31 22:33] VITALS: BP 131/74; PULSE 90; RESP 18; TEMP 36.6; O2SAT 94; BMI 22.3
--- NOTE | 2023-07-31 22:43 | EX.ED.DYSGE1 ---
HPI History of Present Illness Chief Complaint: Hypoglycemia Informant: patient and spouse/S.O. Onset/Context/Timing Onset: Today Context: Sudden Onset Timing: Continuous Quality: Cramping Location: Abdomen Worsened by: Nothing Relieved by: Nothing Narrative Narrative: Patient presents with reported hypoglycemia. states that patient told him that her blood sugar was 50 and then she became confused and slumped over in her chair. When EMS arrived, patient was more awake and alert but still confused. Blood sugar was better on EMS arrival. Patient states she still feels weird and does not feel right. Patient states she has been having some cramping in her abdomen. Patient states nothing makes her symptoms better nothing makes them worse. Patient denies any recent fevers or chills. Patient states she has had some diarrhea recently. Patient denies any nausea or vomiting. Patient denies any urinary complaints. [facility] Medical History Alcohol abuse Alcoholic cirrhosis of liver with ascites Alcoholism Anxiety Anxiety Asthma Back pain due to injury Bleeding tendency Breast implant status Chronic diarrhea Cirrhosis Closed head injury COVID-19 Current use of insulin Diabetes Diabetes Fatty liver Gastritis and duodenitis GERD (gastroesophageal reflux disease) H. pylori infection High cholesterol History of alcohol abuse History of stress test HLD (hyperlipidemia) HTN (hypertension) Hypertension Insulin pump titration Irritable bowel Malnutrition Migraines Nicotine abuse Pancreatitis Post-menopausal Post-menopausal Presence of insulin pump Recurrent acute pancreatitis SBP (spontaneous bacterial peritonitis) Smoker Transaminitis Home Medications duloxetine 60 mg capsule,delayed release 60 mg PO DAILY depression 12/10/21 [History Last Taken 03/10/22] ursodiol 300 mg capsule 300 mg PO BID gallbladder 12/10/21 [History Last Taken 03/10/22] ondansetron 4 mg disintegrating tablet 4 mg PO Q8H PRN nausea and vomiting #14 tabs 02/09/22 [Rx Last Taken 3 Days Ago ~03/07/22] rifaximin 550 mg tablet (Xifaxan) 550 mg PO BID #60 tabs 02/20/22 [Rx Last Taken 03/10/22] gabapentin 300 mg capsule 900 mg PO TID nerve pain 03/10/22 [History Last Taken 03/09/22] midodrine 5 mg tablet 10 mg PO TID blood pressure 03/10/22 [History Last Taken 03/10/22] lancets #100 ea 05/02/22 [Rx Last Taken Unknown] needle (disp) #500 ea 05/02/22 [Rx Last Taken Unknown] alprazolam 0.25 mg tablet 0.25 mg PO BID PRN anxiety 08/02/22 [History Last Taken Unknown] lactulose 10 gram/15 mL oral solution 30 ml PO 3XD cirrhosis 08/02/22 [History Last Taken Unknown] pantoprazole 40 mg tablet,delayed release 40 mg PO DAILY 08/02/22 [History Last Taken Unknown] furosemide 20 mg tablet (Lasix) 40 mg PO DAILY 08/15/22 [History Last Taken Unknown] spironolactone 25 mg tablet 50 mg PO DAILY 08/15/22 [History Last Taken Unknown] blood sugar diagnostic (OneTouch Ultra Test strips) #100 ea 10/07/22 [Rx Last Taken Unknown] blood-glucose meter (OneTouch Ultra2 Meter) #1 ea 10/07/22 [Rx Last Taken Unknown] Dexcom G6 Sensor (blood-glucose sensor) #3 ea 11/16/22 [Rx Last Taken Unknown] Omnipod 5 G6 Intro Kit (Gen 5) subcutaneous cartridge with controller (insulin pump cart,auto,BT-cntr) #1 ea 11/16/22 [Rx Last Taken Unknown] amitriptyline 25 mg tablet 25 mg PO QHS PRN sleep 12/30/22 [History Last Taken Unknown] lidocaine 5 % topical patch 2 patch topical DAILY 30 days #60 ea 01/04/23 [Rx Last Taken Unknown] blood-glucose transmitter (Dexcom G6 Transmitter device) #1 ea 02/20/23 [Rx Last Taken Unknown] insulin aspart U-100 100 unit/mL subcutaneous solution (Novolog U-100 Insulin aspart) 100 unit continuous subcutaneous infusion .continuous #90 mL 03/16/23 [Rx Last Taken Unknown] blood-glucose transmitter (Dexcom G6 Transmitter device) #1 ea 03/30/23 [Rx Last Taken Unknown] insulin pump cart,automated,BT (Omnipod 5 G6 Pods (Gen 5) subcutaneous cartridge) #10 ea 04/19/23 [Rx Last Taken Unknown] insulin lispro 100 unit/mL subcutaneous solution See Rx Instructions .Route .COMPLEX #10 mL 06/21/23 [Rx Last Taken Unknown] pregabalin 50 mg capsule 50 mg PO Q12H 06/21/23 [History Last Taken Unknown] Allergy/AdvReac Type Severity Reaction Status Date / Time azithromycin [From Zithromax] AdvReac Diarrhea Verified 07/31/23 22:37 codeine AdvReac Nausea Verified 07/31/23 22:37 promethazine [From Phenergan] AdvReac Vomiting Verified 07/31/23 22:37 Family History Father Cancer Lung CA with tobacco use history. Heart disease Mother Cancer Hx breast CA. Diabetes Hypertension Other Alcoholic cirrhosis of liver with ascites Breast cancer High cholesterol Liver disease Osteoporosis Skin cancer Surgical History H/O breast augmentation H/O: knee surgery Previous section S/P tonsillectomy and adenoidectomy Social History housing: other details: Lives at home, her 15, 16 year old children live with her. 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 substance use type: does not use what type of physical activity do you participate in: none ROS ROS ED Constitutional Constitutional ED: Denies chills or fever(s) Eyes Eyes: Denies blurry vision or change in vision ENT ENT ED: Denies rhinorrhea or sore throat Cardiovascular Cardiovascular: Denies chest pain or palpitations Respiratory/Chest Respiratory/Chest: Denies cough or dyspnea Gastrointestinal Gastrointestinal: Reports abdominal pain and diarrhea; Denies nausea or vomiting Genitourinary Genitourinary ED: Denies dysuria or hematuria Musculoskeletal Musculoskeletal: Denies back pain or neck pain Integumentary Denies abscess or rash Neurologic Neurologic: Reports headache(s); Denies weakness Allergic/Immunologic Allergic/Immunologic ED: Denies mouth swelling or urticaria EXAM Physical Exam Const Vital Signs: 07/31/23 22:33 07/31/23 22:33 08/01/23 00:55 Temperature 97.9 F 98.2 F Temperature Source Temporal Oral Pulse Rate 90 80 Respiratory Rate 18 17 Respiratory Effort Normal Respiratory Pattern Normal Blood Pressure 131/74 H 137/87 H Blood Pressure Mean 93 103 Pulse Ox 94 97 Oxygen Delivery Method Room Air Room Air Positive well nourished and well developed General Appearance ED: well developed and NAD HEENT Reports moist mucous membranes Eyes PERRL and EOMs intact bilaterally General Eye ED: Negative for scleral icterus Neck supple and no JVD Resp normal respiratory effort and clear to auscultation bilaterally Cardio regular rate and regular rhythm GI non-distended Palpation: soft and tender epigastric, LLQ, RLQ, LUQ, RUQ, periumbilical and suprapubic Neuro oriented x3, CN's II-XII intact bilaterally and no sensory deficits noted Sensorium / Orientation: alert Motor Exam: strength 5/5 throughout Psych mental status grossly normal MDM MDM MDM Narrative Medical decision making narrative: Differential diagnosis includes hepatic encephalopathy, hypoglycemia, electrolyte abnormality, dehydration, pancreatitis, bowel obstruction, perforation, gastroenteritis, and urinary tract infection. CBC will be obtained to assess for leukocytosis and anemia. Comprehensive metabolic profile will be obtained to assess for hepatic function, renal function, and electrolyte abnormality. Serum ammonia level will be obtained to assess for hepatic encephalopathy. Lipase will be obtained to assess for pancreatitis. CT scan of the abdomen pelvis will be obtained to assess for bowel obstruction and perforation. Lab Data Attestation: I reviewed the patient's lab results. Lab results narrative: CBC was reviewed. There is a slight leukocytosis of 12.1. The remainder is within normal limits. Comprehensive metabolic profile was reviewed. Glucose was slightly elevated at 126 but was otherwise within normal limits. Serum ammonia level was reviewed and was normal. Lipase was reviewed and was slightly elevated at 111. Urinalysis was reviewed. There is no evidence of urinary tract infection or hematuria. Labs: Laboratory Results - last 24 hr 07/31/23 07/31/23 08/01/23 22:41 23:00 00:25 WBC 12.1 H RBC 4.05 L Hgb 12.7 Hct 37.9 MCV 93.6 MCH 31.4 MCHC 33.5 RDW Std Deviation 43.8 RDW Coeff of Teressa 12.6 Plt Count 207 MPV 9.8 Immature Gran % (Auto) 0.200 Neut % (Auto) 61.7 Lymph % (Auto) 28.0 Vance % (Auto) 7.0 Eos % (Auto) 2.6 Baso % (Auto) 0.5 Absolute Neuts (auto) 7.4 Absolute Lymphs (auto) 3.38 Nucleated RBC % 0 Sodium 137 Potassium 3.7 Chloride 105 Carbon Dioxide 28.0 Anion Gap 4 L BUN 16 Creatinine 1.00 Estim Creat Clear Calc 64.41 Est GFR (MDRD) Af Amer 76 Est GFR (MDRD) Non-Af 63 BUN/Creatinine Ratio 16.0 Glucose 126 H Calcium 9.4 Total Bilirubin 0.50 AST 18 ALT 27 Alkaline Phosphatase 85 Ammonia 24.0 Total Protein 7.2 Albumin 3.6 Globulin 3.6 Albumin/Globulin Ratio 1.0 Lipase 111 H Urine Color Yellow Urine Clarity Clear Urine pH 7.0 Ur Specific [place] 1.010 Urine Protein Negative Urine Glucose (UA) Normal Urine Ketones Negative Urine Occult Blood Negative Urine Nitrite Negative Urine Bilirubin Negative Urine Urobilinogen Normal Ur Leukocyte Esterase Negative Urine RBC 0 SEEN Urine WBC 0 SEEN Ur Squamous Epith Cells 0 SEEN Urine Bacteria 0 SEEN Urine Mucus 0 SEEN POC Glucose 151 H Radiography Diagnostic Testing: Clinical Impression(s) from Imaging Studies Abdomen/Pelvis CT 07/31/23 22:50 IMPRESSION: 1. Focal masslike wall thickening and luminal narrowing of the second part of the duodenum medial to the pancreas. This may be due to inflammation but endoscopy is suggested to evaluate for neoplasm. No evidence of high-grade obstruction. 2. A few punctate calcifications in the proximal pancreas may indicate chronic calcific pancreatitis. 3. No evidence of acute cholecystitis or biliary distention. 4. Mild mesenteric adenopathy, uncertain etiology and significance. 5. Moderate gas redundant sigmoid but no evidence of a significant degree of distention or obstruction. There does not appear to be ludy sigmoid volvulus. 6. Chronic spine changes. Old healed rib fractures. Electronically Signed: Jennifer Gates MD at 1:20 EST , CT scan of the abdomen pelvis was obtained. There is a masslike wall thickening and luminal narrowing of the second part of the duodenum medial to the pancreas. This may be due to inflammation but could also be due to neoplasm. There is no evidence of obstruction. There are some calcifications noted in the proximal pancreas. There is no evidence of cholecystitis or cholelithiasis. There is no free air or free fluid. This was interpreted by the radiologist and was also independently reviewed by myself. Treatment and Re-Evaluation :: Patient was given IV fluids. Patient was given a dose of ibuprofen here for her headache. Patient was feeling better on reevaluation. Patient was advised of her findings. Patient states she has an endoscopy scheduled this week with Dr. Munson. Patient was instructed to let him know about the swelling of the duodenum. Patient was instructed to eat a bland diet and continue with her bowel prep for her endoscopy. Patient understood and was agreeable with the plan. All questions were answered. Discharge Plan Triage Chief Complaint: Hypoglycemia ED Provider: Raymond Juan Dx/Rx/DC Orders Clinical Impression: Abdominal pain, Hypoglycemia associated with diabetes Instructions: ED Abdominal Pain Unkn Cause Fem Prescriptions: No Action alprazolam 0.25 mg tablet 0.25 mg PO BID PRN (Reason: anxiety) pantoprazole 40 mg tablet,delayed release (DR/EC) 40 mg PO DAILY (DME) Omnipod 5 G6 Intro Kit (Gen 5) Cartridge See Rx Instructions .Route Qty: 1 0RF Rx Instructions: As directed (DME) Dexcom G6 Sensor Device See Rx Instructions .Route Qty: 3 6RF Rx Instructions: As directed ursodiol 300 mg capsule 300 mg PO BID Patient Comments: take 1 capsule by mouth twice a day duloxetine 60 mg capsule,delayed release(DR/EC) 60 mg PO DAILY Patient Comments: take 1 capsule by mouth once daily ondansetron 4 mg tablet,disintegrating 4 mg PO Q8H PRN (Reason: nausea and vomiting) Qty: 14 0RF Xifaxan 550 mg Tablet 550 mg PO BID Qty: 60 1RF midodrine 5 mg tablet 10 mg PO TID Patient Comments: TAKE TWO TABLETS (10 MG)CBY MOUTH 3 TIMES A DAY WITH MEALS gabapentin 300 mg capsule 900 mg PO TID Patient Comments: take 1 capsule by mouth three times a day as directed lactulose 10 gram/15 mL solution 30 ml PO 3XD Patient Comments: TAKE 30 ML BY MOUTH 4CTIMES A DAY (DME) lancets Misc See Rx Instructions .Route Qty: 100 0RF Rx Instructions: As directed (DME) needle (disp) Needle See Rx Instructions .Route Qty: 500 0RF Rx Instructions: As directed spironolactone 25 mg tablet 50 mg PO DAILY furosemide [Lasix] 20 mg tablet 40 mg PO DAILY amitriptyline 25 mg tablet 25 mg PO QHS PRN lidocaine 5 % Adhesive Patch,Medicated 2 patch topical DAILY 30 Days Qty: 60 0RF Protocol: *Topical Application Instructions APPLICATION INSTRUCTIONS: Lumbar spine pregabalin 50 mg capsule 50 mg PO Q12H Patient Comments: take 1 capsule by mouth twice a day insulin lispro 100 unit/mL solution See Rx Instructions .ROUTE .COMPLEX Qty: 10 0RF Rx Instructions: [place] [OneTouch Ultra2 Meter] Misc See Rx Instructions .Route Qty: 1 0RF Rx Instructions: As directed [place] OneTouch Ultra Test Strip See Rx Instructions .Route Qty: 100 5RF Rx Instructions: TID [place] Dexcom G6 Transmitter Device See Rx Instructions .Route Qty: 1 3RF Rx Instructions: As directed insulin aspart U-100 [Novolog U-100 Insulin aspart] 100 unit/mL solution 100 unit continuous subcutaneous infusion .continuous Qty: 90 5RF [place] Dexcom G6 Transmitter Device See Rx Instructions .Route Qty: 1 0RF Rx Instructions: x1 [place] Omnipod 5 G6 Pods (Gen 5) Cartridge See Rx Instructions .Route Qty: 10 6RF Rx Instructions: As directed Primary Care Provider: Valerie Mullins Referrals: Valerie Mullins MD [Primary Care Provider] - 3-5 Days Dougie Munson DO [Med Staff - Active Staff] - Keep Teresa appointment Disposition Disposition: Home, Self Care
--- NOTE | 2023-07-31 22:50 | CT_ITS ---
EXAM: CT ABDOMEN AND PELVIS WITH INTRAVENOUS CONTRAST CLINICAL INDICATION: Abdominal pain TECHNIQUE: Helically acquired images were obtained of the abdomen and pelvis with intravenous contrast. This CT exam was performed using one or more of the following dose reduction techniques: automated exposure control, adjustment of the mA and/or kV according to patient size, and/or use of iterative reconstruction technique. CONTRAST: IV 75mL Isovue-370. RADIATION DOSE: CTDIvol = 10.91 mGy, DLP = 598.83 mGy-cm COMPARISON: No relevant prior studies available. FINDINGS: LOWER THORAX: Unremarkable. Lung bases are clear. No cardiomegaly. No significant pericardial effusion. ABDOMEN: LIVER: Mildly nodular contour liver may indicate early cirrhosis, the right lobe is 16 cm craniocaudal. GALLBLADDER AND BILE DUCTS: Unremarkable. No calcified gallstones. No gallbladder distention or wall edema. No intra- or extrahepatic biliary ductal dilation. PANCREAS: 2 tiny calcifications in the proximal pancreas may indicate chronic calcific pancreatitis. No focal cystic or solid mass. SPLEEN: Upper limits of normal spleen, 12.9 cm AP. ADRENALS: Unremarkable. No nodules. KIDNEYS AND URETERS: Slightly small pancreatic duct of 4 mm at the junction of the head and neck of the pancreas. Right renal pelvis and ureter, no ludy hydronephrosis or ureter stone. Normal renal size and position. STOMACH AND BOWEL: Mild fluid and gas in the stomach mild scattered gas and fluid small bowel. Moderate stool in the right colon, mild gas and stool in the transverse colon, moderate gas in the redundant sigmoid and rectum. There is focal circumferential thick-walled appearance the second part of the duodenum for a length of roughly 3.4 cm, wall roughly 9 mm. No stomach or bowel distention. PELVIS: APPENDIX: Normal appendix is best seen on sagittal images 54 through 66. BLADDER: Unremarkable. REPRODUCTIVE: Unremarkable as visualized. No mass. ABDOMEN and PELVIS: INTRAPERITONEAL SPACE: Unremarkable. No ascites or other fluid collection. No free air. BONES/JOINTS: There is moderate compression deformity and intraosseous vertebroplasty material in L1 with mild retropulsion bulging posterior bone, retropulsed about 6 mm, mildly narrowing the ventral thecal sac. No acute fracture lines. There are bilateral pars defects at L5 without significant retrolisthesis. Minimal bulging disc at L5-S1 slightly flattening the ventral thecal sac. Old healed fractures of right posterior 10th and 11th ribs. Subtle old healed right lumbar transverse fractures are suspected, not well seen. No suspicious lytic or blastic abnormality. SOFT TISSUES: Right breast implant is partially included. No discrete abdominal or pelvic wall hernia. VASCULATURE: Minimal aortoiliac atherosclerotic calcification, no aneurysm or dissection. LYMPH NODES: Mild mesenteric adenopathy, best seen on coronal images. CT/Abdomen/Pelvis W IV Cont ONLY IMPRESSION: 1. Focal masslike wall thickening and luminal narrowing of the second part of the duodenum medial to the pancreas. This may be due to inflammation but endoscopy is suggested to evaluate for neoplasm. No evidence of high-grade obstruction. 2. A few punctate calcifications in the proximal pancreas may indicate chronic calcific pancreatitis. 3. No evidence of acute cholecystitis or biliary distention. 4. Mild mesenteric adenopathy, uncertain etiology and significance. 5. Moderate gas redundant sigmoid but no evidence of a significant degree of distention or obstruction. There does not appear to be ludy sigmoid volvulus. 6. Chronic spine changes. Old healed rib fractures. Electronically Signed: Jennifer Gates MD at 1:20 EST ,
[2023-07-31 22:59] LABS: Bedside Glucose 151 mg/dL (74-106)
[2023-07-31] MEDS: 0.9% Normal Saline (1000mL) 1,000 ML 1000 ML IV (23:00)
[2023-07-31 23:17] LABS: Absolute Lymphocyte Count 3.38 X10^3/uL (0.83-4.51); Absolute Neutrophil Count 7.4 X10^3/uL (2.0-7.7); Basophil# 0.06 X10^3/uL; Basophil% 0.5 % (0-1); Eosinophil# 0.31 X10^3/uL; Eosinophils% 2.6 % (0-5); Hematocrit 37.9 % (37-47); Hemoglobin 12.7 g/dL (12.0-15.0); Lymphocyte # 3.38 X10^3/ul (0.83-4.51); Mean Corp Hgb Conc 33.5 g/dL (32-36); Mean Corpuscular Hgb 31.4 pg (27.0-32.0); Mean Corpuscular Volume 93.6 fL (81-99); Mean Platelet Vol. 9.8 fl (6.2-12.0); Monocyte# 0.84 X10^3/uL; NRBC Flagged by Analyzer 0 % (0-5); Neutrophil # 7.43 X10^3/uL (2.7-7.7); Neutrophil % 61.7 % (47-70); Platelet Count 207 K/mm3 (150-450); RBC Distribution Width CV 12.6 % (11.6-14.6); RBC Distribution Width SD 43.8 fl (35.1-43.9); Red Blood Count 4.05 M/mm3 (4.2-5.4); White Blood Count 12.1 K/mm3 (4.4-11.0)
[2023-07-31] MEDS: Ibuprofen 600 MG Tablet PO (23:17)
[2023-07-31 23:35] LABS: AST(SGOT) 18 U/L (15-37); Alanine Aminotransfer ALT/SGPT 27 U/L (13-56); Albumin, Serum 3.6 g/dL (3.2-5.0); Alkaline Phosphatase 85 U/L (45-117); Anion Gap 4 (5-15); BUN 16 mg/dL (7-18); Calcium,Total 9.4 mg/dL (8.5-10.1); Chloride 105 mmol/L (98-107); EST Glomerular Filtration Rate 63 mL/min (>60); Est Glom Filt Rate - Afr Amer 76 mL/min (>60); Estimated Creatinine Clearance 64.41 ml/min; Globulin 3.6 g/dL (2.2-4.2); Glucose 126 mg/dL (74-106); Lipase 111 U/L (13-75); Potassium 3.7 mmol/L (3.5-5.1); Protein, Total 7.2 g/dL (6.4-8.2); Sodium Level 137 mmol/L (136-145)
[2023-08-01 00:33] LABS: Bacteria 0 SEEN /hpf (None Seen); Mucous, Urine 0 SEEN /hpf (<or=2+); Red Blood Cells-Urine 0 SEEN /hpf (0-5); Squamous Epithelial Cells - UA 0 SEEN /hpf (5-10); White Blood Cells 0 SEEN /hpf (0-5)
[2023-08-01 00:34] LABS: Color, Urine Yellow (Yellow); Glucose, Dipstick Normal (Normal); Ketone-Dipstick Negative (Negative); Leukocyte Esterase-Dipstick Negative /ul (Negative); Nitrite-Dipstick Negative (Negative); Occult Blood-Urine Negative /ul (Negative); Protein-Dipstick Negative (Negative); Urine Bilirubin Dipstick Negative (Negative); Urine Clarity Clear (Clear); Urine Urobilinogen Normal (Normal)
[2023-08-01 00:55] VITALS: BP 137/87; PULSE 80; RESP 17; TEMP 36.8; O2SAT 97
[2023-08-01 02:02] VITALS: BP 131/74; PULSE 74; RESP 16; TEMP 36.6; O2SAT 97
[2023-08-01 02:03] VITALS: BP 131/74
== END 2023-08-01 02:04 | disposition home or self-care (01) ==
PROVIDERS: Emergency Provider Emergency Medicine; PCP Internal Medicine; Visit Provider Emergency Medicine
DX: E11.649 Type 2 diabetes mellitus with hypoglycemia without coma (principal); Z79.4 Long term (current) use of insulin; R10.84 Generalized abdominal pain; I10 Essential (primary) hypertension; Z96.41 Presence of insulin pump (external) (internal); Z79.899 Other long term (current) drug therapy; Z86.16 Personal history of COVID-19; Z87.891 Personal history of nicotine dependence
CPT/HCPCS: 74177; 80053; 81001; 82140; 82962; 83690; 85025; 99283; J7030; Q9967; A4216

== ENCOUNTER 2023-08-03 10:09 | Day surgery (SDC) | payer MEDICAID, SELFPAY ==
[2023-08-03 10:41] VITALS: BP 122/77; PULSE 81; RESP 16; TEMP 36.9; O2SAT 100; BMI 22.0
--- NOTE | 2023-08-03 10:55 | HP.PCM_ITS ---
History and Physical Date of Admission: 08/03/23 46 F who presents to the office today for Follow up. Zara established with this clinic 07.16.[address] [facility] hospitalization for acute pancreatitis (gastroenterology not consulted). Presented to [facility] ED 06.21.21 with imaging finding acute pancreatitis, duodenitis, gastritis, fatty liver, small bowel ileus with a lipase of 3211 and discharged 06.24.21. She had multiple episodes of acute pancreatitis with no apparent etiology; it was later discovered that she was/is drinking alcohol. CT abd/pel 06.21.21 abd pain elevated LFT noting hepatic steatosis; pancreatic changes consistent with pancreatitis; gastritis; duodenitis; small bowel ileus. US RUQ 06.22.21 pancreatitis hepatomegaly at 20.3cm. Liver elastography .06.20 measuring 19 kPa F4 MRCP 08.04.21 noting hepatic fatty infiltration. EGD and colonoscopy 08.13.21. EGD found non-bleeding erosive gastropathy; focal gastric metaplasia; gastritis; multiple non-bleeding duodenal ulcers. H.Pylori + treated with pepto bismol, levofloxacin, protonix and flagyl. Colonoscopy found one 9mm sigmoid tubular adenoma polyp; congested mucosa of sigmoid through splenic flexure and the hepatic flexure and TI. Liver biopsy 08.14.21 consistent with cirrhosis with extensive macro/microvesicular steatosis with fibrous minimal chronic inflammation; iron stains absent; pericellular fibrosis; no abnormal protein accumulation. CT abd/pel 10.01.21 with hepatic steatosis and hepatomegaly (normal spleen) Zara has presented to ED and been hospitalized numerous times since establishing with [facility] for alcoholic cirrhosis with ascites and HE, TIA and kidney injury. Referred to [facility] for liver transplant evaluation . Alcohol A1c ran noting a level of 678 indicating heavy alcohol consumption making her a poor candidate for transplant. [facility] ED presentation 03.03.22 for hyperglycemia with BS >600. She was noted to have recently ingested alcohol. She was discharged in stable condition. [facility] hospitalizations 03.10.22-03.12.22. [facility] ED presentation with lightheadedness, falls (not new), blurred vision, speech difficult, black stools. Shew as noted to by hypotensive and dehydration suspected, possibly r/t over diuresed for ascites management. She was admitted for stabilization and ma nagement of DAMIR. From a HE standpoint she was doing well. Diuretics held during hospitalization. Neomycin has been out of stock with expected availability in 2022. He is continuing to have difficulty with HE despite use of lactulose and Xifaxan. Recommend use of Flagyl 375 TID. Paracentesis 02.04.22 removing 1150mL Cytology negative for malignancy Feels she is doing well. Continues to have some difficulty with confusion, balance impairment with some falls, sleep is disturbed and she is restless (She attributes to anxiety) and some weakness and mild tremor of her hands. She is starting PT/OT later this month. ROS Const Constitutional: Positive for frequent falls; No fatigue ENT ENT: No difficulty swallowing Gastro GI: Positive for abdominal pain, constipation, diarrhea, heartburn, nausea/d yspepsia and vomiting; No belching, bloating, change in bowel habits, change in stool character, coffee ground emesis, cramping, difficulty swallowing, feeling full early, excessive flatus, incontinent of stools, Vomiting blood/hematemesis, Blood in stool, loose stools, Black,tarry stools, pain with swallowing or other Musc Musculoskeletal: Positive for numbness, tingling and Arthritis; No joint pain Skin Skin: No yellowing of the eye or itchy eyes Neuro Neurology: Positive for frequent falls, numbness and tingling Psych Psychiatric: Positive for anxiety and No depression Endo Endocrine: No fatigue Aller/Imm Allergy/Immunologic: No itchy eyes Edi/Lymp Hematologic/Lymphatic: No easy bleeding or easy bruising Exam Const General: well groomed and ill appearing chronically Nutritional Appearance: underweight Eyes Sclera: sclerae normal Resp Effort & Inspection: normal respiratory effort GI Inspection: distended Palpation: firm, nontender and No ascites Skin General: no jaundice Quality Reporting Tobacco Screening ([facility] 138) Smoking Status: Current every day smoker Assessment and Plan Assessment and Plan (1) Alcoholic cirrhosis of liver with ascites: Status: Chronic Plan: Her current meld is a 10. He is still decompensated and the fact that she is getting weekly paracentesis. Due to hypotension. Some acute kidney injury we have stopped her diuretics. Also hypotension secondary weight loss patient pounds. She is reporting sarcopenia. We had her on low-dose prednisone therapy and Giving her Ensure 3 times a day. Her last upper endoscopy had only 1 esophageal varices without gastric varices. She had a capsule endoscopy that did not show any signs of duodenal varices. As per the patient she has not had any alcohol in the last 8 months. Her other issue is that she has been struggling with our hypokalemia hyponatremia hypoglycemia. We will recheck her complete blood count, CBC and INR. She Was also given a referral to [facility]. (2) Hepatic encephalopathy: Status: Chronic Plan: She is not exhibiting any signs of overt encephalopathy at this time. We will continue twice a day for Xifaxan 550 mg. She will also be on lactulose 20 cc p.o. 3 times a day to maintain 3-4 bowel movements per day. Orders: Orders I have examined the patient and the H&P has been reviewed. There are no clinical changes since date of exam.
[2023-08-03] MEDS: Lactated Ringers 1,000 ML 15 ML IV (11:13)
--- NOTE | 2023-08-03 11:15 | EGD_PTH ---
PATHOLOGY RESULTS PATIENT: DAVID TATE LOC: EN U#:[id number] AGE/SX: 47/F ROOM: RE08/03/[address]: Dr. Dougie Munson DO : 1975 BED: DIS: 08/03/2023 SPEC #: [id number] RECD: 08/04/23 08:57 STATUS: MILDRED RETom #: [id number] REECE: 08/03/23 11:[address]: Dougie Munson DEPT: SURGICAL PATHOLOGY RECD BY: Mounika Whyte ENTERED: 08/04/23 08:57 SP TYPE: EGD BIOPSY ASHLEY DR: Dr. Valerie Mullins MD Tissues: Esophagus, NOS Procedures: Special Stain Group II Surgery Specimen Level IV Alcian Blue/PAS (control) HEADER OPERATION: EGD PRE-OP DIAGNOSIS: Alcoholic cirrhosis of liver with ascites, hepatic encephalopathy TISSUE SUBMITTED: Distal esophagus biopsy MICROSCOPIC DIAGNOSIS Distal esophagus, biopsy: Gastroesophageal junctional mucosa with mild chronic inflammation. No evidence of goblet cell metaplasia. See comment. AM:robby 08/05/2023 COMMENT Alcian blue/PAS stain with matched control supports the above diagnosis. MICROSCOPIC DESCRIPTION Slides are reviewed. GROSS DESCRIPTION Received in fixative is one container labeled with the patient's name and designated distal esophagus. The specimen consists of multiple irregular fragments of light moya soft tissue that in aggregate measure 0.7 x 0.5 x 0.1 cm. The specimen is totally submitted in one cassette. / SJ:robby 08/04/2023 TC:3 CPT: 56926, 20696
[2023-08-03 11:39] LABS: Bedside Glucose 127 mg/dL (74-106)
--- NOTE | 2023-08-03 12:08 | OP.EGD_ITS ---
Patient Name: Zara Mcintosh Procedure Date: 08/03/2023 11:51 AM Date of : 1975 Age: 47 Procedure: Upper GI endoscopy Indications: Heartburn, Cirrhosis with suspected esophageal varices Providers: Dougie Munson DO Referring MD: Valerie Mullins Medicines: Monitored Anesthesia Care Patient Profile: This is a 47 year old female. Refer to note in patient chart for documentation of history and physical. Patient has symptoms of chronic heartburn, chronic nausea and chronic vomiting. Complications: No immediate complications. Procedure: Pre-Anesthesia Assessment: - Prior to the procedure, a History and Physical was performed, and patient medications and allergies were reviewed. The patient is competent. The risks and benefits of the procedure and the sedation options and risks were discussed with the patient. All questions were answered and informed consent was obtained. Patient identification and proposed procedure were verified by the physician in the pre-procedure area. Mental Status Examination: alert and oriented. Airway Examination: normal oropharyngeal airway and neck mobility. Respiratory Examination: clear to auscultation. CV Examination: normal. Prophylactic Antibiotics: The patient does not require prophylactic antibiotics. Prior Anticoagulants: The patient has taken no anticoagulant or antiplatelet agents. ASA Grade Assessment: III - A patient with severe systemic disease. After reviewing the risks and benefits, the patient was deemed in satisfactory condition to undergo the procedure. The anesthesia plan was to use monitored anesthesia care (MAC). Immediately prior to administration of medications, the patient was re-assessed for adequacy to receive sedatives. The heart rate, respiratory rate, oxygen saturations, blood pressure, adequacy of pulmonary ventilation, and response to care were monitored throughout the procedure. The physical status of the patient was re-assessed after the procedure. After obtaining informed consent, the endoscope was passed under direct vision. Throughout the procedure, the patient's blood pressure, pulse, and oxygen saturations were monitored continuously. The Endoscope was introduced through the mouth, and advanced to the second part of duodenum. The upper GI endoscopy was accomplished without difficulty. The patient tolerated the procedure well. Scope In: 12:00:10 PM Scope Out: 12:02:30 PM Total Procedure Duration Time 0 hours 2 minutes 20 seconds Findings: There were esophageal mucosal changes consistent with short-segment Guevara's esophagus present in the lower third of the esophagus. The maximum longitudinal extent of these mucosal changes was 3 cm in length. Mucosa was biopsied with a cold forceps for histology in a targeted manner at intervals of 1 cm in the lower third of the esophagus. One specimen bottle was sent to pathology. Verification of patient identification for the specimen was done. Estimated blood loss was minimal. The entire examined stomach was normal. The first portion of the duodenum was normal. Impression: - Esophageal mucosal changes consistent with short-segment Guevara's esophagus. Biopsied. - Normal stomach. - Normal first portion of the duodenum. Recommendation: - Discharge patient to home. - Resume previous diet. - Continue present medications. - Await pathology results. - Repeat upper endoscopy in 1 year for surveillance. Procedure Code(s): --- Professional --- 88881, Esophagogastroduodenoscopy, flexible, transoral; with biopsy, single or multiple CPT copyright 2021 [employer]. All rights reserved. The codes documented in this report are preliminary and upon tower hoist operator review may be revised to meet current compliance requirements. Dougie Munson DO 08/03/2023 12:08:34 PM This report has been signed electronically. Number of Addenda: 0 Note Initiated On: 08/03/2023 11:51 AM
--- NOTE | 2023-08-03 12:09 | OP.CCLET_ITS ---
08/03/2023 Valerie Mullins [address] [place] [address] Re : Upper GI endoscopy procedure for Zara Dayna Dear Dr. Mullins This procedure was performed on Thursday, August 03, 2023. My impressions and recommendations are as follows: Impressions : - Esophageal mucosal changes consistent with short-segment Guevara's esophagus. Biopsied. - Normal stomach. - Normal first portion of the duodenum. Recommendations : - Discharge patient to home. - Resume previous diet. - Continue present medications. - Await pathology results. - Repeat upper endoscopy in 1 year for surveillance. My findings are described in the full procedure note, which is enclosed. If I can be of further assistance, please feel free to contact me at . Sincerely, Dougie Munson, 08/03/2023 12:08:34 PM This report has been signed electronically.
[2023-08-03 12:10] VITALS: BP 116/69; BP 122/77; PULSE 82; RESP 16; TEMP 36.6; O2SAT 95
[2023-08-03 12:15] VITALS: BP 112/72; BP 122/77; PULSE 78; RESP 16; O2SAT 95
[2023-08-03 12:20] VITALS: BP 110/70; BP 122/77; PULSE 78; RESP 16; O2SAT 97
[2023-08-03 12:24] VITALS: BP 119/74; BP 122/77; PULSE 88; RESP 16; TEMP 36.1; O2SAT 98
[2023-08-03 12:46] VITALS: BP 122/77
== END 2023-08-03 12:49 | disposition home or self-care (01) ==
LOC: EN 10:11 → AC 10:12
PROVIDERS: PCP Internal Medicine; Referring Provider Internal Medicine; Visit Provider Internal Medicine Gastroenterology
PROC: 0DJ08ZZ Inspection of Upper Intestinal Tract, Via Natural or Artificial Opening Endoscopic (ICD-10-PCS; CPT 43235; principal; 2023-08-03 11:10)
DX: R12 Heartburn (principal); K70.31 Alcoholic cirrhosis of liver with ascites; E13.40 Other specified diabetes mellitus with diabetic neuropathy, unspecified; Z79.4 Long term (current) use of insulin; F17.200 Nicotine dependence, unspecified, uncomplicated; Z96.41 Presence of insulin pump (external) (internal); Z79.899 Other long term (current) drug therapy; Z86.16 Personal history of COVID-19
CPT/HCPCS: 43239; 82962; 88305; 88313; J7120; J2405

== ENCOUNTER → 2023-08-04 | Outpatient (CLI) | payer MEDICAID, SELFPAY ==
[2023-08-04 17:14] LABS: Absolute Lymphocyte Count 3.34 X10^3/uL (0.83-4.51); Absolute Neutrophil Count 5.1 X10^3/uL (2.0-7.7); Basophil# 0.05 X10^3/uL; Basophil% 0.5 % (0-1); Eosinophil# 0.16 X10^3/uL; Eosinophils% 1.7 % (0-5); Hematocrit 38.6 % (37-47); Hemoglobin 12.9 g/dL (12.0-15.0); Lymphocyte # 3.34 X10^3/ul (0.83-4.51); Lymphocyte % 36.1 % (19-41); Mean Corp Hgb Conc 33.4 g/dL (32-36); Mean Corpuscular Volume 95.8 fL (81-99); Monocyte# 0.58 X10^3/uL; Monocyte% 6.3 % (0-10); NRBC Flagged by Analyzer 0 % (0-5); Neutrophil # 5.05 X10^3/uL (2.7-7.7); Neutrophil % 54.8 % (47-70); Platelet Count 201 K/mm3 (150-450); RBC Distribution Width CV 12.4 % (11.6-14.6); Red Blood Count 4.03 M/mm3 (4.2-5.4); White Blood Count 9.2 K/mm3 (4.4-11.0)
[2023-08-04 17:31] LABS: Prothrombin Time (Protime)PT. 13.2 SECONDS (11.7-14.9)
[2023-08-04 17:50] LABS: AST(SGOT) 15 U/L (15-37); Alanine Aminotransfer ALT/SGPT 28 U/L (13-56); Albumin, Serum 3.6 g/dL (3.2-5.0); Alkaline Phosphatase 82 U/L (45-117); Anion Gap 7 (5-15); BUN 18 mg/dL (7-18); BUN/Creat Ratio 16.8 RATIO (10-20); Bilirubin, Direct 0.11 mg/dL (0.00-0.30); Calcium,Total 9.1 mg/dL (8.5-10.1); Chloride 104 mmol/L (98-107); Creatinine, Serum 1.07 mg/dL (0.55-1.02); EST Glomerular Filtration Rate 58 mL/min (>60); Est Glom Filt Rate - Afr Amer 70 mL/min (>60); Globulin 3.8 g/dL (2.2-4.2); Glucose 231 mg/dL (74-106); Potassium 3.9 mmol/L (3.5-5.1); Protein, Total 7.4 g/dL (6.4-8.2); Sodium Level 138 mmol/L (136-145)
== END | disposition home or self-care (01) ==
LOC: LAB 16:52
PROVIDERS: PCP Internal Medicine
DX: K70.31 Alcoholic cirrhosis of liver with ascites (principal)
CPT/HCPCS: 36415; 80048; 80076; 85025; 85610

== ENCOUNTER 2023-12-04 01:56 | Inpatient (IN) | payer MEDICAID, SELFPAY ==
[2023-12-04] VITALS (32 sets, daily range): BP systolic 117–153; BP diastolic 59–108; PULSE 84–113; RESP 8–26; TEMP 34.7–36.9; O2SAT 90–100; BMI 27.2; BMI 24.5
--- NOTE | 2023-12-04 02:00 | EKG12_ITS ---
Test Reason : UNRESPONSIVE Blood Pressure : / mmHG Vent. Rate : 091 BPM Atrial Rate : 091 BPM P-R Int : 188 ms QRS Dur : 084 ms QT Int : 366 ms P-R-T Axes : 000 122 130 degrees QTc Int : 450 ms Normal sinus rhythm ? LIMB LEAD REVERSAL PROBABLY NORMAL Confirmed by Jose Antonio Turk ([id number]), department editor NATALYA ALMAZAN ([id number]) on 12/05/2023 1:51:17 PM Referred By: RAKAN Confirmed By:Jose Antonio Turk
--- NOTE | 2023-12-04 02:01 | EX.ED.DYSGE1 ---
HPI History of Present Illness Chief Complaint: Unresponsive [facility] Medical History Insulin pump titration Presence of insulin pump Bleeding tendency Post-menopausal Current use of insulin Irritable bowel Back pain due to injury High cholesterol History of stress test Alcohol abuse Anxiety Diabetes GERD (gastroesophageal reflux disease) Cirrhosis Malnutrition Closed head injury SBP (spontaneous bacterial peritonitis) Hypertension Alcoholic cirrhosis of liver with ascites COVID-19 H. pylori infection Post-menopausal Pancreatitis Asthma Smoker Migraines Chronic diarrhea Recurrent acute pancreatitis Fatty liver Gastritis and duodenitis Breast implant status Anxiety History of alcohol abuse Transaminitis Nicotine abuse Alcoholism HLD (hyperlipidemia) HTN (hypertension) Diabetes Home Medications ?Medication ?Instructions ?Recorded ?Last Taken ?Type duloxetine 60 mg capsule,delayed 60 mg PO DAILY depression 12/10/21 03/10/22 History release ondansetron 4 mg disintegrating 4 mg PO Q8H PRN nausea and 02/09/22 3 Days Ago Rx tablet vomiting #14 tabs ~03/07/22 rifaximin 550 mg tablet (Xifaxan) 550 mg PO BID #60 tabs 02/20/22 03/10/22 Rx gabapentin 300 mg capsule 900 mg PO TID nerve pain 03/10/22 08/03/23 History midodrine 5 mg tablet 10 mg PO TID blood pressure 03/10/22 08/03/23 History lancets #100 ea 05/02/22 Unknown Rx needle (disp) #500 ea 05/02/22 Unknown Rx alprazolam 0.25 mg tablet 0.25 mg PO BID PRN anxiety 08/02/22 Unknown History lactulose 10 gram/15 mL oral 30 ml PO 3XD cirrhosis 08/02/22 Unknown History solution furosemide 20 mg tablet (Lasix) 40 mg PO DAILY 08/15/22 Unknown History blood sugar diagnostic (OneTouch #100 ea 10/07/22 Unknown Rx Ultra Test strips) blood-glucose meter (OneTouch #1 ea 10/07/22 Unknown Rx Ultra2 Meter) Omnipod 5 G6 Intro Kit (Gen 5) #1 ea 11/16/22 Unknown Rx subcutaneous cartridge with controller (insulin pump cart,auto,BT-cntr) blood-glucose transmitter (Dexcom #1 ea 02/20/23 Unknown Rx G6 Transmitter device) insulin lispro 100 unit/mL See Rx Instructions .Route 06/21/23 Unknown Rx subcutaneous solution .COMPLEX #10 mL pregabalin 50 mg capsule 50 mg PO Q12H 06/21/23 08/03/23 History lidocaine 5 % topical patch 2 patch topical DAILY PRN pain 08/01/23 Unknown History insulin pump cart,automated,BT #15 ea 08/10/23 Unknown Rx (Omnipod 5 G6 Pods (Gen 5) subcutaneous cartridge) Dexcom G6 Sensor (blood-glucose #3 ea 10/26/23 Unknown Rx sensor) amitriptyline 50 mg tablet 50 mg PO QHS 11/07/23 Unknown History blood-glucose transmitter (Dexcom #1 ea 11/07/23 Unknown Rx G6 Transmitter device) estradiol 0.01% (0.1 mg/gram) 1 g vaginal 2XW 11/07/23 Unknown History vaginal cream insulin aspart U-100 100 unit/mL 100 unit continuous subcutaneous 11/07/23 Unknown Rx subcutaneous solution (Novolog infusion .continuous #90 mL U-100 Insulin aspart) Allergy/AdvReac Type Severity Reaction Status Date / Time azithromycin (From Zithromax) AdvReac Diarrhea Verified 11/07/23 11:35 codeine AdvReac Nausea Verified 11/07/23 11:35 promethazine (From Phenergan) AdvReac Vomiting Verified 11/07/23 11:35 Family History Father Cancer Lung CA with tobacco use history. Heart disease Mother Cancer Hx breast CA. Diabetes Hypertension Other Alcoholic cirrhosis of liver with ascites Breast cancer High cholesterol Liver disease Osteoporosis Skin cancer Surgical History Previous back surgery S/P tonsillectomy and adenoidectomy Previous section H/O: knee surgery H/O breast augmentation Social History housing: other details: Lives at home, her 15, 16 year old children live with her. 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 substance use type: does not use what type of physical activity do you participate in: none [facility] MDM MDM Narrative Medical decision making narrative: HISTORY OF PRESENT ILLNESS: 48-year-old female presents with altered mental status. Per EMS patient was found unresponsive in bed with symptoms on. EMS concern that she may have overdosed. Per officers patient reported she wanted to kill himself through text message. Stated the patient's significant other who initially called EMS and police stated she took approximately 30 pills. Of an unknown substance at approximately 1 AM. REVIEW OF SYSTEMS: Patient is unable to participate reliably in review of systems secondary to alteration mental status PHYSICAL EXAM: Nursing triage notes reviewed, Vital signs reviewed Constitutional: please see mdm HENT: MMM Eyes: Pupils equal round and reactive to light, Extraocular muscles intact Neck: No stridor, no JVD, full neck ROM Lungs: Clear to auscultation, No wheezing or rales. No increased work of breathing, no conversational dyspnea, no accessory muscle use, no nasal flaring. No respiratory distress noted Heart: Regular rate and rhythm, No murmurs, No rubs and No gallops, 2+ distal pulses (radial, femoral, posterior tibial) in all extremities Abdomen: Soft, there is no tenderness, rigidity, rebound or guarding, no obvious peritoneal signs, no palpable pulsatile abdominal masses, no auscultated abdominal bruit : No CVAT Extremities: No edema Neuro: Somnolent, responsive to painful stimuli, oriented to person but not place or time, moves all 4 extremities, has sensation intact in all 4 extremities, Skin: No rash or lesions noted MEDICAL DECISION MAKING: Chief Complaint: Altered mental status External records reviewed: Prior inpatient records reviewed: No recent hospitalizations noted. Last hospitalization was in December 2022 for abdominal pain, narcotic induced ileus, L1 compression fracture, cirrhosis Factors affecting care: Alcoholism cirrhosis, anemia, type 1 diabetes Social determinants of health: history of tobacco and alcohol abuse History obtained from others: EMS, police Consults: Internal Medicine MDM Narrative: Patient was initially hemodynamically stable, afebrile, nontoxic-appearing. Exam with a somnolent but arousable to painful stimuli patient cannot provide reliable history. No signs of trauma. No obvious focal neurologic deficits. I considered the following differential diagnosis: Toxic ingestion, ICH, metabolic encephalopathy, infectious cephalopathy, hepatic encephalopathy secondary to liver cirrhosis, hypoglycemia I obtained a broad lab and imaging workup to further elucidate the etiology of the patient's complaints. ALL IMAGES (IF OBTAINED) HAVE BEEN PERSONALLY REVIEWED AND INTERPRETED BY MYSELF. EKG with normal sinus rhythm, extreme right axis deviation, normal intervals, normal QT and QRS interval, no STEMI High-sensitivity troponin is negative, no evidence of myocardial ischemia Coingestants are negative emergency Tylenol salicylate) negative Urinalysis shows no evidence of urinary inflammation suggestive of UTI CBC without leukocytosis, no anemia or thrombocytopenia Serum acetone is negative VBG was abnormal, metabolic acidosis noted however this is likely taken from a sample while the patient had a tourniquet on Lactate also elevated likely a false positive given tourniquet in place The patient was reassessed at 4:23 AM. Still having sinus respirations maintaining her oxygen level at 98% on 2 L, breathing approximately 16 times per minute. She has sonorous respirations. She arouses to painful stimuli. No indication for airway at this time. The synthesis the patient's history, physical exam, labs images suggest likely multifactorial altered mental status including alcohol intoxication, baseline liver dysfunction and Given altered mental status The patient and/or family, caregivers express understanding. The patient and/or family, caregivers agrees with the plan. Shared decision making: I will have a discussion with the patient and or visitors regarding risk/benefits of further testing or admission. They will be made aware of of the risk/benefits inherent in this decision they will be given the opportunity to voice understanding. Total critical care time today provided was at least 60 minutes. This excludes separately billable procedures. Critical care time (if documented) is secondary to the patient having high probability of clinically significant/life threatening deterioration in the patient's condition which required my urgent intervention. Impression: 1. AMS 2. Intentional overdose 3. Alcohol intoxication 4. Hypoxia 5. Thrombocytopenia 6. Hypothermia Dispo: Admit This note was generated with [employer] dictation software. It may contain incorrect words, spelling, and punctuation that were not noted in review of the chart prior to signing. Discharge Plan Triage Chief Complaint: Unresponsive ED Provider: Abhinav Matthews Dx/Rx/DC Orders Prescriptions: No Action alprazolam 0.25 mg tablet 0.25 mg PO BID PRN (Reason: anxiety) (DME) Omnipod 5 G6 Intro Kit (Gen 5) Cartridge See Rx Instructions .Route Qty: 1 0RF Rx Instructions: As directed amitriptyline 50 mg tablet 50 mg PO QHS estradiol 0.01 % (0.1 mg/gram) cream 1 g vaginal 2XW (DME) Dexcom G6 Transmitter Device See Rx Instructions .Route Qty: 1 0RF Rx Instructions: x1 insulin aspart U-100 [Novolog U-100 Insulin aspart] 100 unit/mL solution 100 unit continuous subcutaneous infusion .continuous Qty: 90 5RF duloxetine 60 mg capsule,delayed release(DR/EC) 60 mg PO DAILY Patient Comments: take 1 capsule by mouth once daily ondansetron 4 mg tablet,disintegrating 4 mg PO Q8H PRN (Reason: nausea and vomiting) Qty: 14 0RF Xifaxan 550 mg Tablet 550 mg PO BID Qty: 60 1RF midodrine 5 mg tablet 10 mg PO TID Patient Comments: TAKE TWO TABLETS (10 MG)CBY MOUTH 3 TIMES A DAY WITH MEALS gabapentin 300 mg capsule 900 mg PO TID Patient Comments: take 1 capsule by mouth three times a day as directed lactulose 10 gram/15 mL solution 30 ml PO 3XD Patient Comments: TAKE 30 ML BY MOUTH 4CTIMES A DAY (DME) lancets Misc See Rx Instructions .Route Qty: 100 0RF Rx Instructions: As directed (DME) needle (disp) Needle See Rx Instructions .Route Qty: 500 0RF Rx Instructions: As directed furosemide [Lasix] 20 mg tablet 40 mg PO DAILY lidocaine 5 % Adhesive Patch,Medicated 2 patch topical DAILY PRN (Reason: pain) Protocol: *Topical Application Instructions APPLICATION INSTRUCTIONS: Lumbar spine pregabalin 50 mg capsule 50 mg PO Q12H Patient Comments: take 1 capsule by mouth twice a day insulin lispro 100 unit/mL solution See Rx Instructions .ROUTE .COMPLEX Qty: 10 0RF Rx Instructions: Fill insulin pump as previously directed (DME) blood-glucose meter [OneTouch Ultra2 Meter] Misc See Rx Instructions .Route Qty: 1 0RF Rx Instructions: As directed ([facility]) OneTouch Ultra Test Strip See Rx Instructions .Route Qty: 100 5RF Rx Instructions: TID (DME) Dexcom G6 Transmitter Device See Rx Instructions .Route Qty: 1 3RF Rx Instructions: As directed ([facility]) Omnipod 5 G6 Pods (Gen 5) Cartridge See Rx Instructions .Route Qty: 15 6RF Rx Instructions: 1 pod q 48 hours (DME) Dexcom G6 Sensor Device See Rx Instructions .Route Qty: 3 6RF Rx Instructions: As directed Primary Care Provider: Valerie Mullins Referrals: Valerie Mullins MD [Primary Care Provider] - Print Language: Japanese
--- NOTE | 2023-12-04 02:05 | ED.RN ---
Mehul's deputy shows up stating he is pink slipping her because they found multiple texts on her phone states she was going to kill herself and no one was going to find her. Dr Matthews at bedside
--- NOTE | 2023-12-04 02:11 | CT_ITS ---
EXAM: CT HEAD WITHOUT INTRAVENOUS CONTRAST CLINICAL INDICATION: Altered mental status TECHNIQUE: Multiple axial images were obtained of the head without intravenous contrast. This CT exam was performed using one or more of the following dose reduction techniques: automated exposure control, adjustment of the mA and/or kV according to patient size, and/or use of iterative reconstruction technique. RADIATION DOSE: CTDIvol = 44.99 mGy, DLP = 796.11 mGy-cm COMPARISON: 03/10/2022. FINDINGS: BRAIN AND EXTRA-AXIAL SPACES: Unremarkable. No intra- or extra-axial hemorrhage. No evidence of acute infarct. No intracranial mass or mass effect. There is preservation of the santo/white matter interface. Posterior fossa structures are unremarkable. Ventricles are appropriate for age. No hydrocephalus. Basal cisterns are patent. BONES/JOINTS: Unremarkable. No discrete lytic or blastic abnormalities. SINUSES: Unremarkable as visualized. Clear. MASTOID AIR CELLS: Unremarkable. Clear. ORBITS: Visualized globes, extraocular muscles, optic nerves and retrobulbar fat appear unremarkable. CT/Brain/Head without Contrast IMPRESSION: Negative head/brain CT without intravenous contrast. Electronically Signed: Jose Antonio Segura MD at 4:11 EDT ,
[2023-12-04 02:47] LABS: Bacteria 0 SEEN /hpf (None Seen); Mucous, Urine 0 SEEN /hpf (<or=2+); Red Blood Cells-Urine 0 SEEN /hpf (0-5); Squamous Epithelial Cells - UA 0 SEEN /hpf (5-10); White Blood Cells 0 SEEN /hpf (0-5)
[2023-12-04 02:49] LABS: Color, Urine Yellow (Yellow); Glucose, Dipstick 250 mg/dl (Normal); Ketone-Dipstick Negative (Negative); Leukocyte Esterase-Dipstick Negative /ul (Negative); Nitrite-Dipstick Negative (Negative); Occult Blood-Urine Negative /ul (Negative); Protein-Dipstick 30 mg/dl (Negative); Urine Bilirubin Dipstick Negative (Negative); Urine Clarity Clear (Clear); Urine Urobilinogen Normal (Normal)
[2023-12-04] MEDS: Ondansetron 4 MG/2 ML Vial IV (02:51)
[2023-12-04] MEDS: 0.9% Normal Saline (1000mL) 1,000 ML 1000 ML IV (02:51)
[2023-12-04 03:05] LABS: Internal QC Validated? YES +Cl - CLEAR BKGD; Pregnancy, Urine Negative Negative
--- NOTE | 2023-12-04 03:10 | RAD_ITS ---
EXAM: XR CHEST, 1 VIEW CLINICAL INDICATION: Altered mental status TECHNIQUE: Frontal view of the chest. COMPARISON: No relevant prior studies available. FINDINGS: LUNGS AND PLEURAL SPACES: Unremarkable. No consolidation or edema. No pneumothorax. No effusion. HEART: Unremarkable. Cardiac silhouette not enlarged. MEDIASTINUM: Central airways and mediastinal contour are unremarkable. BONES/JOINTS: Unremarkable. No acute fracture. SOFT TISSUES: Unremarkable. RAD/Chest 1 View (Portable) IMPRESSION: No radiographic evidence of acute cardiopulmonary disease. Electronically Signed: Jose Antonio Segura MD at 4:10 EDT ,
[2023-12-04 03:18] LABS: Acetaminophen (Tylenol) Level < 2.0 ug/mL (10.0-30.0); Salicylate < 1.7 mg/dL (2.8-20.0)
[2023-12-04 03:21] LABS: AST(SGOT) 124 U/L (15-37); Alanine Aminotransfer ALT/SGPT 89 U/L (13-56); Albumin, Serum 3.6 g/dL (3.2-5.0); Alkaline Phosphatase 95 U/L (45-117); Anion Gap 11 (5-15); BUN 11 mg/dL (7-18); BUN/Creat Ratio 11.6 RATIO (10-20); Bilirubin, Direct 0.07 mg/dL (0.00-0.30); Calcium,Total 8.5 mg/dL (8.5-10.1); Chloride 106 mmol/L (98-107); Creatinine, Serum 0.95 mg/dL (0.55-1.02); EST Glomerular Filtration Rate 67 mL/min (>60); Est Glom Filt Rate - Afr Amer 80 mL/min (>60); Estimated Creatinine Clearance 74.84 ml/min; Globulin 3.7 g/dL (2.2-4.2); Glucose 314 mg/dL (74-106); Lactic Acid 2.5 mmol/L (0.4-1.9); Lipase 30 U/L (13-75); Potassium 4.6 mmol/L (3.5-5.1); Protein, Total 7.3 g/dL (6.4-8.2); Sodium Level 139 mmol/L (136-145); Troponin-I HS 4 pg/mL (3.0-54.0)
[2023-12-04 03:33] LABS: Absolute Lymphocyte Count 2.41 X10^3/uL (0.83-4.51); Absolute Neutrophil Count 1.6 X10^3/uL (2.0-7.7); Basophil# 0.07 X10^3/uL; Basophil% 1.5 % (0-1); Eosinophil# 0.12 X10^3/uL; Eosinophils% 2.6 % (0-5); Hematocrit 37.7 % (37-47); Hemoglobin 12.4 g/dL (12.0-15.0); Lymphocyte # 2.41 X10^3/ul (0.83-4.51); Lymphocyte % 51.6 % (19-41); Mean Corp Hgb Conc 32.9 g/dL (32-36); Mean Corpuscular Hgb 32.5 pg (27.0-32.0); Mean Platelet Vol. 9.1 fl (6.2-12.0); Monocyte# 0.38 X10^3/uL; Monocyte% 8.1 % (0-10); NRBC Flagged by Analyzer 0 % (0-5); Neutrophil # 1.59 X10^3/uL (2.7-7.7); Neutrophil % 34.1 % (47-70); Platelet Count 124 K/mm3 (150-450); RBC Distribution Width CV 13.2 % (11.6-14.6); Red Blood Count 3.81 M/mm3 (4.2-5.4); White Blood Count 4.7 K/mm3 (4.4-11.0)
[2023-12-04 03:40] LABS: Blood Gas Specimen Type VEN; O2 Delivery Device Not entered; SITE Not entered; VBG BASE EXCESS -8 mmol/L (-1.0-3.5); VBG Bicarbonate 21 mmol/L (22-26); VBG PO2 71 mmHg (25-40); VBG SO2 89 % (50-70); VBG TCO2 22 mmol/L (23-33); VBG pCO2 56.3 mmHg (41-51); VBG pH 7.17 (7.32-7.42)
--- NOTE | 2023-12-04 04:26 | PCM.HP.STD ---
[facility] - General General Date of Admission: 12/04/23 Date of Service: 12/04/23 Chief Complaint: Altered Mental Status after apparent Intentional Overdose. HPI Narrative DAVID MCINTOSH, is a 48 F with a past medical history of essential hypertension, hyperlipidemia, overweight; with BMI of 27.2 this admission, chronic tobacco abuse; with history of asthma, DM-1.5; s/p insulin pump, chronic EtOH abuse; with subsequent fatty liver and cirrhosis on Lactulose and Xifaxan, history of hepatic encephalopathy, history of SBP, recurrent EtOH pancreatitis; with chronic diarrhea, uncontrolled depression with anxiety, history of gastritis and duodenitis, history of migraine headaches, history of L1 compression fracture, history of herniated nucleus pulposus L5-S1, peripheral neuropathy, chronic anemia, history breast augmentation, history of COVID-19, history of H. pylori, IBS and GERD who presents to [facility] ER with her family noting altered mental status. Ms. Mcintosh is not a reliable historian at this time so information was gathered from chart, medical staff and computer. According to the records she was apparently found unresponsive in bed by her family with concern she may have overdosed with suspicion that she took ~30 pills of an unknown substance at ~1:00 AM causing them to activate EMS. Her boyfriend told the ER provider that she sent him text messages saying that she could not take it anymoreand that she apparently intended to overdose according to him. Her laboratory tests this admission reveal a ZELALEM of 296 mg/dL consistent with Acute EtOH Intoxication in the setting of Chronic EtOH Abuse with suspected Intentional Overdose together culminating in Toxic Encephalopathy with VBG evidence of Severe Metabolic Acidosis with pH 7.17 and Lactic Acid level of 2.5 mmol/L present on admission compounded by Hypothermia; evidenced by a core temperature of 94.5 ?F present on admission with negative serum acetone level, negative urine drug screen, acetaminophen level < 2 mcg/mL and negative test. She was then admitted to the ICU under suicide precautions for ongoing care for a stay that is expected to extend beyond 2 midnights. [facility] Medical History Insulin pump titration Presence of insulin pump Bleeding tendency Post-menopausal Current use of insulin Irritable bowel Back pain due to injury High cholesterol History of stress test Alcohol abuse Anxiety Diabetes GERD (gastroesophageal reflux disease) Cirrhosis Malnutrition Closed head injury SBP (spontaneous bacterial peritonitis) Hypertension Alcoholic cirrhosis of liver with ascites COVID-19 H. pylori infection Post-menopausal Pancreatitis Asthma Smoker Migraines Chronic diarrhea Recurrent acute pancreatitis Fatty liver Gastritis and duodenitis Breast implant status Anxiety History of alcohol abuse Transaminitis Nicotine abuse Alcoholism HLD (hyperlipidemia) HTN (hypertension) Diabetes Home Medications ?Medication ?Instructions ?Recorded ?Last Taken ?Type duloxetine 60 mg capsule,delayed 60 mg PO DAILY depression 12/10/21 03/10/22 History release ondansetron 4 mg disintegrating 4 mg PO Q8H PRN nausea and 02/09/22 3 Days Ago Rx tablet vomiting #14 tabs ~03/07/22 rifaximin 550 mg tablet (Xifaxan) 550 mg PO BID #60 tabs 02/20/22 03/10/22 Rx gabapentin 300 mg capsule 900 mg PO TID nerve pain 03/10/22 08/03/23 History midodrine 5 mg tablet 10 mg PO TID blood pressure 03/10/22 08/03/23 History lancets #100 ea 05/02/22 Unknown Rx needle (disp) #500 ea 05/02/22 Unknown Rx alprazolam 0.25 mg tablet 0.25 mg PO BID PRN anxiety 08/02/22 Unknown History lactulose 10 gram/15 mL oral 30 ml PO 3XD cirrhosis 08/02/22 Unknown History solution furosemide 20 mg tablet (Lasix) 40 mg PO DAILY 08/15/22 Unknown History blood sugar diagnostic (OneTouch #100 ea 10/07/22 Unknown Rx Ultra Test strips) blood-glucose meter (OneTouch #1 ea 10/07/22 Unknown Rx Ultra2 Meter) Omnipod 5 G6 Intro Kit (Gen 5) #1 ea 11/16/22 Unknown Rx subcutaneous cartridge with controller (insulin pump cart,auto,BT-cntr) blood-glucose transmitter (Dexcom #1 ea 02/20/23 Unknown Rx G6 Transmitter device) insulin lispro 100 unit/mL See Rx Instructions .Route 06/21/23 Unknown Rx subcutaneous solution .COMPLEX #10 mL pregabalin 50 mg capsule 50 mg PO Q12H 06/21/23 08/03/23 History lidocaine 5 % topical patch 2 patch topical DAILY PRN pain 08/01/23 Unknown History insulin pump cart,automated,BT #15 ea 08/10/23 Unknown Rx (Omnipod 5 G6 Pods (Gen 5) subcutaneous cartridge) Dexcom G6 Sensor (blood-glucose #3 ea 10/26/23 Unknown Rx sensor) amitriptyline 50 mg tablet 50 mg PO QHS 11/07/23 Unknown History blood-glucose transmitter (Dexcom #1 ea 11/07/23 Unknown Rx G6 Transmitter device) estradiol 0.01% (0.1 mg/gram) 1 g vaginal 2XW 11/07/23 Unknown History vaginal cream insulin aspart U-100 100 unit/mL 100 unit continuous subcutaneous 11/07/23 Unknown Rx subcutaneous solution (Novolog infusion .continuous #90 mL U-100 Insulin aspart) Allergy/AdvReac Type Severity Reaction Status Date / Time azithromycin (From Zithromax) AdvReac Diarrhea Verified 11/07/23 11:35 codeine AdvReac Nausea Verified 11/07/23 11:35 promethazine (From Phenergan) AdvReac Vomiting Verified 11/07/23 11:35 Family History Father Cancer Lung CA with tobacco use history. Heart disease Mother Cancer Hx breast CA. Diabetes Hypertension Other Alcoholic cirrhosis of liver with ascites Breast cancer High cholesterol Liver disease Osteoporosis Skin cancer Surgical History Previous back surgery S/P tonsillectomy and adenoidectomy Previous section H/O: knee surgery H/O breast augmentation Social History housing: other details: Lives at home, her 15, 16 year old children live with her. 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 substance use type: does not use what type of physical activity do you participate in: none ROS ROS Narrative Patient is acutely ill and encephalopathic and cannot complete a full review of systems at this time. Vital Signs Vital Signs Vital Signs: 12/04/23 01:57 12/04/23 03:16 12/04/23 03:30 Temperature 95.6 F L Temperature Source Temporal Pulse Rate 91 88 97 Respiratory Rate 14 8 L 14 Respiratory Effort Respiratory Pattern Blood Pressure 128/85 H Blood Pressure Mean 99 Pulse Ox 100 99 95 Oxygen Delivery Method Nasal Cannula Oxygen Flow Rate (L/min) 4 12/04/23 03:32 12/04/23 03:45 12/04/23 04:00 Temperature Temperature Source Pulse Rate 98 104 H 98 Respiratory Rate 14 15 15 Respiratory Effort Respiratory Pattern Blood Pressure 120/74 120/63 Blood Pressure Mean 89 79 Pulse Ox 94 94 96 Oxygen Delivery Method Oxygen Flow Rate (L/min) 12/04/23 04:15 12/04/23 04:15 Temperature Temperature Source Pulse Rate 97 Respiratory Rate 14 Respiratory Effort Normal Respiratory Pattern Normal Blood Pressure Blood Pressure Mean Pulse Ox 96 Oxygen Delivery Method Oxygen Flow Rate (L/min) Weight Weight: 168 lb 10.458 oz Body Mass Index (BMI) 27.2 Physical Exam Const alert, no apparent distress and average body habitus Constitutional Narrative: Patient is lethargic and confused. General Appearance: cooperative Orientation / Consciousness: confused and lethargic HEENT normocephalic, head/scalp atraumatic and hearing grossly normal bilaterally HEENT Narrative: Mucous membranes dry. Eyes PERRL and EOMs intact bilaterally Neck no lymphadenopathy and supple Resp normal respiratory effort, no retractions, no use of accessory muscles and clear to auscultation bilaterally Cardio regular rate and regular rhythm GI normal to inspection, nondistended, normoactive bowel sounds, soft to palpation, non-tender and non-distended Extremity normal to inspection, full ROM and no clubbing, cyanosis or edema Skin Skin Narrative: Patient has no evidence of jaundice, abscess or rash. Neuro CN's II-XII intact bilaterally, moves all extremities and no focal motor deficits Sensorium / Orientation: awake, alert and oriented to person Psych Mood & Affect: depressed Results Lab / Micro Data 12/04/23 03:22 12/04/23 02:10 Labs: Laboratory Results - last 24 hr 12/04/23 02:10: WBC Cancelled, Corrected WBC Cancelled, RBC Cancelled, Hgb Cancelled, Hct Cancelled, MCV Cancelled, MCH Cancelled, MCHC Cancelled, RDW Std Deviation Cancelled, RDW Coeff of Teressa Cancelled, Plt Count Cancelled, MPV Cancelled, Immature Gran % (Auto) Cancelled, Neut % (Auto) Cancelled, Lymph % (Auto) Cancelled, Love % (Auto) Cancelled, Eos % (Auto) Cancelled, Baso % (Auto) Cancelled, Absolute Neuts (auto) Cancelled, Absolute Lymphs (auto) Cancelled, Total Counted Cancelled, Neutrophils % (Manual) Cancelled, Band Neutrophils % Cancelled, Lymphocytes % (Manual) Cancelled, Monocytes % (Manual) Cancelled, Eosinophils % (Manual) Cancelled, Basophils % (Manual) Cancelled, Metamyelocytes % Cancelled, Myelocytes % Cancelled, Promyelocytes % Cancelled, Blast Cells % Cancelled, Plasma Cell % (Manual) Cancelled, Other Cells % Cancelled, Nucleated RBC % Cancelled, Nucleated RBCs/100 WBC Cancelled, Differential Comment Cancelled, Diff Path Review Cancelled, Hypersegmented Neuts Cancelled, Atypical Lymphocytes Cancelled, Reactive Lymphocytes Cancelled, Smudge Cells Cancelled, Toxic Granulation Cancelled, Toxic Vacuolation Cancelled, Dohle Bodies Cancelled, Earnestine Rods Cancelled, Platelet Estimate Cancelled, Plt Morphology Comment Cancelled, RBC Morphology Cancelled 12/04/23 02:10: RBC Morphology Cancelled, Polychromasia Cancelled, Hypochromasia Cancelled, Basophilic Stippling Cancelled, Anisocytosis Cancelled, Microcytosis Cancelled, Macrocytosis Cancelled, Spherocytes Cancelled, Sickle Cells Cancelled, Target Cells Cancelled, Tear Drop Cells Cancelled, Ovalocytes Cancelled, Stomatocytes Cancelled, [place] Bodies Cancelled, [place] Cells Cancelled, Bite Cells Cancelled, Crenated Cell Cancelled, Acanthocytes (Spur) Cancelled, Rouleaux Cancelled, Schistocytes Cancelled, Sodium 139, Potassium 4.6, Chloride 106, Carbon Dioxide 22.0, Anion Gap 11, BUN 11, Creatinine 0.95, Estim Creat Clear Calc 74.84, Est GFR (MDRD) Af Amer 80, Est GFR (MDRD) Non-Af 67, BUN/Creatinine Ratio 11.6, Glucose 314 H, Lactic Acid 2.5 H*, Calcium 8.5, Total Bilirubin 0.40, Direct Bilirubin 0.07, AST 124 H, ALT 89 H, Alkaline Phosphatase 95, Ammonia Cancelled, Troponin I High Sens 4, Total Protein 7.3, Albumin 3.6, Globulin 3.7, Lipase 30, Urine Color Yellow, Urine Clarity Clear, Urine pH 6.0, Ur Specific [place] 1.010, Urine Protein 30 H, Urine Glucose (UA) 250 H, Urine Ketones Negative, Urine Occult Blood Negative, Urine Nitrite Negative, Urine Bilirubin Negative, Urine Urobilinogen Normal, Ur Leukocyte Esterase Negative, Urine RBC 0 SEEN, Urine WBC 0 SEEN, Ur Squamous Epith Cells 0 SEEN, Urine Bacteria 0 SEEN, Urine Mucus 0 SEEN, Urine Test Negative, Salicylates < 1.7 L, Acetaminophen < 2.0 L, Ethyl Alcohol 296.0, Acetone Level NEGATIVE 12/04/23 02:19: Ur Drug Screen Comment 12/04/23 03:22: WBC 4.7, RBC 3.81 L, Hgb 12.4, Hct 37.7, MCV 99.0, MCH 32.5 H, MCHC 32.9, RDW Std Deviation 48.0 H, RDW Coeff of Teressa 13.2, Plt Count 124 L, MPV 9.1, Immature Gran % (Auto) 2.100 H, Neut % (Auto) 34.1 L, Lymph % (Auto) 51.6 H, Love % (Auto) 8.1, Eos % (Auto) 2.6, Baso % (Auto) 1.5 H, Absolute Neuts (auto) 1.6 L, Absolute Lymphs (auto) 2.41, Nucleated RBC % 0, Ammonia 17.0 ABG Data ABG results: ABG 12/04/23 03:36 Specimen Type SANDRINE Sample Site Not entered VBG pH 7.17 L* VBG pO2 71 H VBG HCO3 21 L VBG Total CO2 22 L VBG O2 Sat (Calc) 89 H VBG Base Excess -8 L POC Mix VBG pCO2 Pt Tmp 56.3 H O2 Delivery Device Not entered Crit Call To/Read Back Yes Blood Gas Notified Whom JUDITH Blood Gas Notified Time 03:37:49 Imaging Radiology Impression Brain CT 12/04/23 02:11 IMPRESSION: Negative head/brain CT without intravenous contrast. Electronically Signed: Jose Antonio Segura MD at 4:11 EDT , Chest X-Ray 12/04/23 03:10 IMPRESSION: No radiographic evidence of acute cardiopulmonary disease. Electronically Signed: Jose Antonio Segura MD at 4:10 EDT , Assessment & Plan Assessment/Plan (1) Acute alcohol intoxication: QUALIFIERS: Complication of substance-induced condition: with delirium Qualified Code(s): F10.921 - Alcohol use, unspecified with intoxication delirium (2) Chronic alcohol abuse: (3) History of cirrhosis of liver: (4) Metabolic acidosis: (5) Lactic acidosis: (6) Toxic encephalopathy: QUALIFIERS: Toxic encephalopathy cause: unspecified toxin Qualified Code(s): G92.9 - Unspecified toxic encephalopathy (7) Suicide attempt: (8) Uncontrolled depression: (9) Recurrent acute pancreatitis: (10) Diabetes 1.5, managed as type 1: PLAN: Plan 1. ZELALEM of 296 mg/dL consistent with Acute EtOH Intoxication in the setting of Chronic EtOH Abuse with suspected Intentional Overdose of an unknown substance - Admit to ICU for treatment under the alcohol addiction protocol. Start phenobarbital IV to prevent impending alcohol withdrawal. Give IV Ativan as needed for breakthrough seizure activity. Restart Lactulose and Xifaxan when patient is able to tolerate oral intake. Avoid Tylenol and other potentially hepatotoxic agents. Once this patient can be medically stabilized she should strongly be considered for inpatient psychiatric therapy. 2. Severe Metabolic Acidosis with pH 7.17 and Lactic Acid level of 2.5 mmol/L present on admission complicating #1 - Check ABG to assess effectiveness of initial round of treatment in the ER. Serialize lactate. 3. Hypothermia; evidenced by a core temperature of 94.5 ?F present on admission compounding #1 & #2 - Place patient on Shama hugger to achieve normal temperatures and then wean as tolerated. 4. Toxic/metabolic encephalopathy arising from #1 - #3 with negative serum acetone level, negative urine drug screen, acetaminophen level < 2 mcg/mL and negative test - Continue supportive care and monitor for improvement. 5. Uncontrolled depression and anxiety with apparent suicide attempt precipitating #1 - #4 - Restart home treatment regimen when patient can safely tolerate oral intake and obtain formal psychiatric evaluation. Check TSH. 6. Chronic EtOH abuse; with subsequent fatty liver, cirrhosis and hepatic encephalopathy on Lactulose and Xifaxan - Ammonia level normal at 17 ?mol/L present on admission. We will restart lactulose and Xifaxan when able. Check PT/INR to evaluate current level of liver's synthetic function of the clotting factors. 7. History of recurrent alcoholic pancreatitis; with chronic diarrhea - Serum lipase normal at 30 units/L present on admission. Monitor for signs of abdominal pain and check CT scan of abdomen if signs and symptoms of pancreatitis develop. 8. DM-1.5; s/p insulin pump - Stop insulin pump at this time. We will treat with sliding scale insulin per protocol. Check hemoglobin A1c to objectively assess quality of diabetic control. 9. Chronic tobacco abuse; with history of asthma - Tobacco cessation will be strongly encouraged when patient is sober. Patient has no evidence of asthma flare. Give nebulizers as needed. Place nicotine patch. 10. History of gastritis, duodenitis, H. pylori and GERD - Noted. Give Protonix 40 mg IV daily for GI prophylaxis. 11. Essential hypertension - Hold scheduled antihypertensives. Give IV hydralazine as needed for systolic blood pressure greater than 160 mmHg. 12. Hyperlipidemia - Patient currently not on statin likely due to chronic liver disease arising from ongoing alcohol abuse. Check lipid profile. 13. Overweight; with BMI of 27.2 this admission - Weight loss will be recommended. 14. History of SBP - Noted. 15. History of migraine headaches - Noted. Give sumatriptan as needed should migraine headache develop. 16. History of L1 compression fracture with history of herniated nucleus pulposus L5-S1 - Noted. 17. Peripheral neuropathy - Stable. 18. Chronic anemia - Stable with hemoglobin of 12.4 g/dL present on admission. 19. History breast augmentation - Noted. 20. History of COVID-19 - Noted. 21. History of H. pylori - Noted. 22. IBS - Stable. 23. DVT prophylaxis - Lovenox 40 mg sq daily plus SCD's. Total time: Approximately 75 minutes. Charges/Coding Visit Charges Inpatient E&M: 80307 Init Hosp L3
[2023-12-04 04:28] LABS: Amphetamine Urine NEGATIVE (<1000 ng/mL); Barbiturate Urine NEGATIVE (< 200 ng/mL); Benzodiazepine Urine NEGATIVE (< 200 ng/mL); Cocaine Urine NEGATIVE (< 300 ng/mL); Ecstacy Urine NEGATIVE (< 500 ng/mL); Methadone Urine NEGATIVE (< 300 ng/mL); Opiates Urine NEGATIVE (< 300 ng/mL); PCP Urine NEGATIVE (< 25 ng/mL); THC Urine NEGATIVE (< 50 ng/mL); Vista UDS pH Range 6
[2023-12-04 06:45] LABS: Reflex Lactate? Y
[2023-12-04 07:26] LABS: Magnesium 1.8 mg/dL (1.6-2.6); Phosphorus 4.2 mg/dL (2.5-4.9)
[2023-12-04 07:31] LABS: Allen Test Positive; Base Excess -8 mmol/L (-2 to +2); Bicarbonate 19.6 mmol/L (22-26); Blood Gas Specimen Type ART; Mode Not entered; PO2 112 mmHG (75-100); SITE R Radial; SO2 97 % (95-99); Total Carbon Dioxide 21 mmol/L; pCO2 45.8 mmHg (35-45); pH 7.24 (7.35-7.45)
[2023-12-04 07:41] LABS: Lactic Acid 2.3 mmol/L (0.4-1.9)
[2023-12-04 07:58] LABS: O2 Delivery Device Nasal Can
[2023-12-04] MEDS: Lactated Ringers 1,000 ML 100 ML IV ×2 (08:07→17:59)
[2023-12-04] MEDS: Insulin Lispro 100 UNIT/ML INSULN.PEN SC ×3 (08:38→21:09)
[2023-12-04 08:54] LABS: Cholesterol 267 mg/dL (200); High Density Lipoprotein 39 mg/dL; Thyroid Stim Hormone (TSH) 1.17 uIU/mL (0.358-3.74); Triglycerides 237 mg/dL; Very Low Density Lipoprotein 47 mg/dL (5-40)
[2023-12-04 09:00] LABS: Bedside Glucose 273 mg/dL (74-106)
[2023-12-04 09:29] LABS: Hemoglobin A1c 7.3 % (3.8-5.6)
[2023-12-04 09:41] LABS: International Normalized Ratio 1.2; Prothrombin Time (Protime)PT. 15.4 SECONDS (11.7-14.9)
[2023-12-04] MEDS: Pantoprazole Sodium 40 MG in 0.9% Normal Saline (100mL MB+) 100 ML 330 MG IV (10:39)
[2023-12-04] MEDS: Enoxaparin 40 MG/0.4 ML Syringe SC (10:43)
[2023-12-04] MEDS: Phenobarbital 32.4 MG Tablet 64.8 MG PO ×4 (10:49→21:10)
[2023-12-04 17:25] LABS: Bedside Glucose 226 mg/dL (74-106)
[2023-12-04] MEDS: 0.9% Saline Lock 10 ML Syringe IV (21:10)
[2023-12-04 21:32] LABS: Bedside Glucose 309 mg/dL (74-106)
[2023-12-05] VITALS (21 sets, daily range): BP systolic 121–174; BP diastolic 68–100; PULSE 76–100; RESP 13–20; TEMP 36.5–36.9; O2SAT 93–100; BMI 25.7
[2023-12-05] MEDS: Dicyclomine 10 MG Capsule 20 MG PO (00:11)
[2023-12-05] MEDS: Phenobarbital 32.4 MG Tablet 64.8 MG PO ×5 (00:51→21:37)
[2023-12-05] MEDS: Lactated Ringers 1,000 ML 100 ML IV ×2 (03:59→14:15)
[2023-12-05] MEDS: 0.9% Saline Lock 10 ML Syringe IV (05:20)
[2023-12-05 05:36] LABS: Absolute Lymphocyte Count 1.19 X10^3/uL (0.83-4.51); Basophil# 0.02 X10^3/uL; Basophil% 0.6 % (0-1); Eosinophil# 0.07 X10^3/uL; Eosinophils% 1.9 % (0-5); Hematocrit 33.6 % (37-47); Hemoglobin 11.3 g/dL (12.0-15.0); Lymphocyte # 1.19 X10^3/ul (0.83-4.51); Mean Corp Hgb Conc 33.6 g/dL (32-36); Mean Corpuscular Hgb 32.5 pg (27.0-32.0); Mean Corpuscular Volume 96.6 fL (81-99); Mean Platelet Vol. 9.3 fl (6.2-12.0); Monocyte# 0.35 X10^3/uL; Monocyte% 9.7 % (0-10); NRBC Flagged by Analyzer 0 % (0-5); Neutrophil # 1.96 X10^3/uL (2.7-7.7); Neutrophil % 54.2 % (47-70); Platelet Count 113 K/mm3 (150-450); RBC Distribution Width CV 12.9 % (11.6-14.6); RBC Distribution Width SD 45.1 fl (35.1-43.9); Red Blood Count 3.48 M/mm3 (4.2-5.4); White Blood Count 3.6 K/mm3 (4.4-11.0)
[2023-12-05 06:02] LABS: AST(SGOT) 44 U/L (15-37); Alanine Aminotransfer ALT/SGPT 62 U/L (13-56); Albumin, Serum 2.9 g/dL (3.2-5.0); Alkaline Phosphatase 76 U/L (45-117); Anion Gap 8 (5-15); BUN 10 mg/dL (7-18); BUN/Creat Ratio 12.8 RATIO (10-20); Calcium,Total 8.8 mg/dL (8.5-10.1); Chloride 99 mmol/L (98-107); Creatinine, Serum 0.78 mg/dL (0.55-1.02); EST Glomerular Filtration Rate 84 mL/min (>60); Est Glom Filt Rate - Afr Amer 101 mL/min (>60); Estimated Creatinine Clearance 88.95 ml/min; Globulin 2.9 g/dL (2.2-4.2); Glucose 341 mg/dL (74-106); Potassium 4.3 mmol/L (3.5-5.1); Protein, Total 5.8 g/dL (6.4-8.2); Sodium Level 134 mmol/L (136-145)
--- NOTE | 2023-12-05 07:29 | PN.HOSP_ITS ---
Reason for Visit Reason for Visit: Diagnoses Other specified diabetes mellitus without complications (12/04/23) Acidosis, unspecified (12/04/23) Alcohol abuse, uncomplicated (12/04/23) Alcohol use, unspecified with intoxication delirium (12/04/23) Depression, unspecified (12/04/23) Unspecified toxic encephalopathy (12/04/23) Acute pancreatitis without necrosis or infection, unspecified (12/04/23) Suicide attempt, initial encounter (12/04/23) Personal history of other diseases of the digestive system (12/04/23) Subjective Subjective States she has no recollection of the events. Upon further questioning, she thinks that she may have taken a large quantity of her alprazolam. Objective Data Objective Data Vital Signs: Vital Signs Temp Pulse Resp BP Pulse Ox O2 Del Method O2 Flow Rate 36.6 C 92 20 H 133/80 H 98 Room Air 2 12/05/23 04:00 12/05/23 07:00 12/05/23 07:00 12/05/23 07:00 12/05/23 07:00 12/05/23 07:00 12/04/23 07:30 Oxygen Flow Rate (L/min) 2 Oxygen Delivery Method Room Air Weight: 72.5 kg Body Mass Index (BMI) 25.7 Intake & Output: Intake and Output for Last 24 Hours 12/03/23 12/04/23 12/05/23 23:59 23:59 23:59 Intake Total 2578.33 / 2578.33 1000 / 1000 Output Total 450 / 450 Balance 2128.33 / 2128.33 1000 / 1000 Lab / Micro Data 12/05/23 05:20 12/05/23 05:20 Labs: Laboratory Results - last 24 hr 12/04/23 07:00: Lactic Acid 2.3 H* 12/04/23 08:06: PT 15.4 H, INR 1.2, Hemoglobin A1c 7.3 H, Triglycerides 237 H, C holesterol 267 H, LDL Cholesterol 181 H, VLDL Cholesterol 47 H, HDL Cholesterol 39 L, Folate 10.10, TSH 1.17 12/04/23 08:34: POC Glucose 273 H 12/04/23 16:32: POC Glucose 226 H 12/04/23 21:06: POC Glucose 309 H 12/05/23 05:20: WBC 3.6 L, RBC 3.48 L, Hgb 11.3 L, Hct 33.6 L, MCV 96.6, MCH 32.5 H, MCHC 33.6, RDW Std Deviation 45.1 H, RDW Coeff of Teressa 12.9, Plt Count 113 L, MPV 9.3, Immature Gran % (Auto) 0.600, Neut % (Auto) 54.2, Lymph % (Auto) 33.0, [place] % (Auto) 9.7, Eos % (Auto) 1.9, Baso % (Auto) 0.6, Absolute Neuts (auto) 2.0, Absolute Lymphs (auto) 1.19, Nucleated RBC % 0, Sodium 134 L, Potassium 4.3, Chloride 99, Carbon Dioxide 27.0, Anion Gap 8, BUN 10, Creatinine 0.78, Estim Creat Clear Calc 88.95, Est GFR (MDRD) Af Amer 101, Est GFR (MDRD) Non-Af 84, BUN/Creatinine Ratio 12.8, Glucose 341 H, Calcium 8.8, Total Bilirubin 0.80, AST 44 H, ALT 62 H, Alkaline Phosphatase 76, Total Protein 5.8 L , Albumin 2.9 L, Globulin 2.9, Albumin/Globulin Ratio 1.0 ABG Data ABG results: ABG 12/04/23 07:25 Specimen Type ART Sample Site R Radial pH 7.24 L Bicarbonate Actual 19.6 L Total CO2 21 Base Excess -8 L O2 Saturation 97 ABG pCO2 45.8 H ABG pO2 112 H David Test Positive O2 Delivery Device Nasal Can Liter Flow 2.0 Vent Mode Not entered Physical Exam Const alert and no apparent distress HEENT head/scalp atraumatic and moist oral mucous membranes Resp normal respiratory effort, no retractions, no use of accessory muscles and clear to auscultation bilaterally Cardio regular rate, regular rhythm, S1 normal heart sound, S2 normal heart sound and no murmurs GI normal to inspection, nondistended, normoactive bowel sounds, soft to palpation, non-tender and non-distended Extremity normal to inspection, full ROM and no clubbing, cyanosis or edema Neuro Sensorium / Orientation: awake and alert Assessment & Plan Assessment/Plan (1) Acute alcohol intoxication: QUALIFIERS: Complication of substance-induced condition: with delirium Qualified Code(s): F10.921 - Alcohol use, unspecified with intoxication delirium (2) Chronic alcohol abuse: (3) History of cirrhosis of liver: (4) Metabolic acidosis: (5) Lactic acidosis: (6) Toxic encephalopathy: QUALIFIERS: Toxic encephalopathy cause: unspecified toxin Q ualified Code(s): G92.9 - Unspecified toxic encephalopathy (7) Suicide attempt: (8) Uncontrolled depression: (9) Recurrent acute pancreatitis: (10) Diabetes 1.5, managed as type 1: PLAN: Plan Suspected intentional overdose/Toxic encephalopathy * Pt sent text that she could not take it anymore and was subsequently found unresonsive. * Unknown substance (though the patient thinks it may have been alprazolam), but apparently took that and alcohol. * Drug screen negative. Alcohol level 296 * CRISIS eval on hold until patient can be determined to be medically stable. If patient is stable overnight then I feel the patient would be appropriate to initiate the CRISIS eval. * gabapentin held, would not resume upon discharge given suicide attempt Alcohol abuse * started on phenobarbital taper plus thiamine and folate * addiction medicine to see Metabolic acidosis * unclear etiology. Has DM2, but not in DKA. * supportive mgmt. Hypothermia * POA * no s/s of infection * likely 2/2 drug overdose. DM2 * a1c 7.3 * insulin pump at home, not on here due to policy * SSI Depression * duloxetine held given intentional overdose Cirrhosis * lactulose and rifaximin held * alcoholic VTE prophylaxis - enoxaparin . Will transfer to the general medical floor. Charges/Coding Visit Charges Inpatient E&M: 61229 Subs Hosp L2
[2023-12-05] MEDS: Enoxaparin 40 MG/0.4 ML Syringe SC (07:48)
[2023-12-05] MEDS: Insulin Lispro 100 UNIT/ML INSULN.PEN SC ×4 (07:48→21:38)
[2023-12-05] MEDS: Folic Acid 1 MG Tablet PO (07:48)
[2023-12-05] MEDS: Thiamine Hydrochloride 100 MG Tablet PO (07:48)
[2023-12-05] MEDS: Pantoprazole Sodium 40 MG in 0.9% Normal Saline (100mL MB+) 100 ML 330 MG IV (09:24)
[2023-12-05 11:44] LABS: Bedside Glucose 372 mg/dL (74-106)
[2023-12-05 12:16] LABS: Vitamin B12 334 pg/mL (211-911)
[2023-12-05 16:53] LABS: Bedside Glucose 434 mg/dL (74-106)
[2023-12-05] MEDS: rifAXIMin 550 MG Tablet PO (21:57)
[2023-12-05 23:48] LABS: Bedside Glucose 387 mg/dL (74-106)
[2023-12-06] VITALS: RESP 15
[2023-12-06] MEDS: Phenobarbital 32.4 MG Tablet 64.8 MG PO ×4 (01:48→14:03)
[2023-12-06 01:51] VITALS: BP 151/97; PULSE 88; RESP 15; TEMP 36.4; O2SAT 97
[2023-12-06 02:00] VITALS: BP 151/97; PULSE 88; RESP 15; TEMP 36.4; O2SAT 97
[2023-12-06 06:42] LABS: Bedside Glucose 452 mg/dL (74-106)
[2023-12-06 06:48] LABS: Absolute Neutrophil Count 2.1 X10^3/uL (2.0-7.7); Basophil# 0.02 X10^3/uL; Basophil% 0.5 % (0-1); Eosinophil# 0.12 X10^3/uL; Eosinophils% 3.1 % (0-5); Hematocrit 36.4 % (37-47); Hemoglobin 12.7 g/dL (12.0-15.0); Lymphocyte % 31.1 % (19-41); Mean Corp Hgb Conc 34.9 g/dL (32-36); Mean Corpuscular Hgb 32.7 pg (27.0-32.0); Mean Corpuscular Volume 93.8 fL (81-99); Mean Platelet Vol. 9.6 fl (6.2-12.0); Monocyte# 0.41 X10^3/uL; Monocyte% 10.6 % (0-10); NRBC Flagged by Analyzer 0 % (0-5); Neutrophil # 2.06 X10^3/uL (2.7-7.7); Neutrophil % 53.4 % (47-70); Platelet Count 117 K/mm3 (150-450); RBC Distribution Width CV 12.5 % (11.6-14.6); RBC Distribution Width SD 42.9 fl (35.1-43.9); Red Blood Count 3.88 M/mm3 (4.2-5.4); White Blood Count 3.9 K/mm3 (4.4-11.0)
[2023-12-06] MEDS: Insulin Lispro 100 UNIT/ML INSULN.PEN SC ×5 (06:59→22:25)
--- NOTE | 2023-12-06 07:10 | PN.HOSP_ITS ---
Reason for Visit Reason for Visit: Diagnoses Other specified diabetes mellitus without complications (12/04/23) Acidosis, unspecified (12/04/23) Alcohol abuse, uncomplicated (12/04/23) Alcohol use, unspecified with intoxication delirium (12/04/23) Depression, unspecified (12/04/23) Unspecified toxic encephalopathy (12/04/23) Acute pancreatitis without necrosis or infection, unspecified (12/04/23) Suicide attempt, initial encounter (12/04/23) Personal history of other diseases of the digestive system (12/04/23) Subjective Subjective Feeling nauseated. Objective Data Objective Data Vital Signs: Vital Signs Temp Pulse Resp BP Pulse Ox O2 Del Method O2 Flow Rate 36.4 C L 88 15 151/97 H 97 Room Air 2 12/06/23 02:00 12/06/23 02:00 12/06/23 02:00 12/06/23 02:00 12/06/23 02:00 12/06/23 04:00 12/04/23 07:30 Oxygen Flow Rate (L/min) 2 Oxygen Delivery Method Room Air Weight: 72.5 kg Body Mass Index (BMI) 25.7 Intake & Output: Intake and Output for Last 24 Hours 12/04/23 12/05/23 12/06/23 23:59 23:59 23:59 Intake Total 2578.33 / 2578.33 2131.67 / 2131.67 Output Total 450 / 450 Balance 2128.33 / 2128.33 2131.67 / 2131.67 Lab / Micro Data 12/06/23 06:17 12/06/23 06:17 Labs: Laboratory Results - last 24 hr 12/04/23 08:06: Vitamin B12 334 12/05/23 11:23: POC Glucose 372 H 12/05/23 16:22: POC Glucose 434 H 12/05/23 21:30: POC Glucose 387 H 12/06/23 06:17: WBC 3.9 L, RBC 3.88 L, Hgb 12.7, Hct 36.4 L, MCV 93.8, MCH 32.7 H, MCHC 34.9, RDW Std Deviation 42.9, RDW Coeff of Teressa 12.5, Plt Count 117 L, MPV 9.6, Immature Gran % (Auto) 1.300 H, Neut % (Auto) 53.4, Lymph % (Auto) 31.1, [place] % (Auto) 10.6 H, Eos % (Auto) 3.1, Baso % (Auto) 0.5, Absolute Neuts (auto) 2.1, Absolute Lymphs (auto) 1.20, Nucleated RBC % 0 12/06/23 06:22: POC Glucose 452 H* Physical Exam Const alert Resp normal respiratory effort, no retractions, no use of accessory muscles and clear to auscultation bilaterally Cardio regular rate, regular rhythm, S1 normal heart sound and S2 normal heart sound GI normal to inspection, nondistended, normoactive bowel sounds, soft to palpation, non-tender and non-distended Neuro Sensorium / Orientation: awake and alert Assessment & Plan Assessment/Plan (1) Acute alcohol intoxication: QUALIFIERS: Complication of substance-induced condition: with delirium Qualified Code(s): F10.921 - Alcohol use, unspecified with intoxication delirium (2) Chronic alcohol abuse: (3) History of cirrhosis of liver: (4) Metabolic acidosis: (5) Lactic acidosis: (6) Toxic encephalopathy: QUALIFIERS: Toxic encephalopathy cause: unspecified toxin Q ualified Code(s): G92.9 - Unspecified toxic encephalopathy (7) Suicide attempt: (8) Uncontrolled depression: (9) Recurrent acute pancreatitis: PLAN: Plan Suspected intentional overdose/Toxic encephalopathy * Pt sent text that she could not take it anymore and was subsequently found unresonsive. * Unknown substance (though the patient thinks it may have been alprazolam), but apparently took that and alcohol. * Drug screen negative. Alcohol level 296 * CRISIS eval * gabapentin held, would not resume upon discharge given suicide attempt Alcohol abuse * started on phenobarbital taper plus thiamine and folate * addiction medicine to see Metabolic acidosis * unclear etiology. Has DM2, but not in DKA. * supportive mgmt. Hypothermia * POA * no s/s of infection * likely 2/2 drug overdose. DM2 * a1c 7.3 * insulin pump at home, not on here due to policy * SSI. Add glargine until can be discharged so that she may resume insulin pump. Depression * duloxetine held given intentional overdose Cirrhosis * lactulose and rifaximin held * alcoholic VTE prophylaxis - enoxaparin . Charges/Coding Visit Charges Inpatient E&M: 22436 Subs Hosp L2
[2023-12-06 07:15] LABS: Anion Gap 10 (5-15); BUN 10 mg/dL (7-18); BUN/Creat Ratio 11.6 RATIO (10-20); Calcium,Total 9.3 mg/dL (8.5-10.1); Chloride 95 mmol/L (98-107); Creatinine, Serum 0.86 mg/dL (0.55-1.02); EST Glomerular Filtration Rate 74 mL/min (>60); Est Glom Filt Rate - Afr Amer 90 mL/min (>60); Estimated Creatinine Clearance 80.67 ml/min; Glucose 438 mg/dL (74-106); Potassium 4.2 mmol/L (3.5-5.1); Sodium Level 130 mmol/L (136-145)
[2023-12-06] MEDS: DULoxetine Hcl 60 MG Capsule PO (07:52)
[2023-12-06] MEDS: rifAXIMin 550 MG Tablet PO ×2 (07:52→21:45)
[2023-12-06] MEDS: Folic Acid 1 MG Tablet PO (07:58)
[2023-12-06] MEDS: Enoxaparin 40 MG/0.4 ML Syringe SC (07:58)
[2023-12-06] MEDS: 0.9% Saline Lock 10 ML Syringe IV (07:59)
[2023-12-06] MEDS: Thiamine Hydrochloride 100 MG Tablet PO (07:59)
[2023-12-06] MEDS: Ondansetron 4 MG/2 ML Vial IV (07:59)
[2023-12-06 10:00] VITALS: BP 160/105; PULSE 87; RESP 13; TEMP 36.3; O2SAT 97
[2023-12-06] MEDS: Insulin Glargine-YFGN 100 UNIT/ML Pen 20 UNIT SC (11:12)
[2023-12-06 11:33] LABS: Bedside Glucose 439 mg/dL (74-106)
--- NOTE | 2023-12-06 11:53 | CASEMGMT ---
Social Work- Pt was deemed medically stable by physician. SKIP called [facility] and spoke with field irrigation worker to advise that pt was in need of an eval and is now medically stable. SKIP faxed paperwork to [facility] for review. Bedside nurse advised. DIANA Toth
[2023-12-06 14:00] VITALS: BP 158/107; PULSE 87; RESP 12; TEMP 36.9; O2SAT 96
--- NOTE | 2023-12-06 15:32 | CASEMGMT ---
Social Work- SKIP met with [facility] log pond worker Shruti, following her meeting with pt. Shruti states that the plan is to place pt. SKIP received pink slip from physician, which was faxed to [facility]. Shruti will update with placement information as available. DIANA Toth
--- NOTE | 2023-12-06 15:46 | DCINST_ITS ---
Discharge Instructions Diet Discharge Diet: 2000 Calorie Control Diet Follow Up Care Test Results: Test results from this visit will be discussed in further detail at your follow- up appointment, if applicable. Discharge Plan Admission Admit Date/Time: 12/04/23 05:22 Primary Reason for Your Visit: overdose Attending Provider: Raymond Burk Primary Care Provider: Valerie Mullins Consulting Providers: Sai Ruiz; Damien Valdovinos Discharge Orders/Prescriptions Prescriptions: Continued (DME) Omnipod 5 G6 Intro Kit (Gen 5) Cartridge See Rx Instructions .Route Qty: 1 0RF Rx Instructions: As directed estradiol 0.01 % (0.1 mg/gram) cream 1 g vaginal 2XW (DME) Dexcom G6 Transmitter Device See Rx Instructions .Route Qty: 1 0RF Rx Instructions: x1 insulin aspart U-100 [Novolog U-100 Insulin aspart] 100 unit/mL solution 100 unit continuous subcutaneous infusion .continuous Qty: 90 5RF duloxetine 60 mg capsule,delayed release(DR/EC) 60 mg PO DAILY Patient Comments: take 1 capsule by mouth once daily ondansetron 4 mg tablet,disintegrating 4 mg PO Q8H PRN (Reason: nausea and vomiting) Qty: 14 0RF Xifaxan 550 mg Tablet 550 mg PO BID Qty: 60 1RF midodrine 5 mg tablet 10 mg PO TID Patient Comments: TAKE TWO TABLETS (10 MG)CBY MOUTH 3 TIMES A DAY WITH MEALS lactulose 10 gram/15 mL solution 30 ml PO 3XD Patient Comments: TAKE 30 ML BY MOUTH 4CTIMES A DAY (DME) lancets Misc See Rx Instructions .Route Qty: 100 0RF Rx Instructions: As directed (DME) needle (disp) Needle See Rx Instructions .Route Qty: 500 0RF Rx Instructions: As directed furosemide [Lasix] 20 mg tablet 40 mg PO DAILY insulin lispro 100 unit/mL solution See Rx Instructions .ROUTE .COMPLEX Qty: 10 0RF Rx Instructions: Fill insulin pump as previously directed (DME) blood-glucose meter [OneTouch Ultra2 Meter] Misc See Rx Instructions .Route Qty: 1 0RF Rx Instructions: As directed (DME) OneTouch Ultra Test Strip See Rx Instructions .Route Qty: 100 5RF Rx Instructions: TID (DME) Dexcom G6 Transmitter Device See Rx Instructions .Route Qty: 1 3RF Rx Instructions: As directed (DME) Omnipod 5 G6 Pods (Gen 5) Cartridge See Rx Instructions .Route Qty: 15 6RF Rx Instructions: 1 pod q 48 hours (DME) Dexcom G6 Sensor Device See Rx Instructions .Route Qty: 3 6RF Rx Instructions: As directed Discontinued alprazolam 0.25 mg tablet 0.25 mg PO BID PRN (Reason: anxiety) amitriptyline 50 mg tablet 50 mg PO QHS gabapentin 300 mg capsule 900 mg PO TID Patient Comments: take 1 capsule by mouth three times a day as directed lidocaine 5 % Adhesive Patch,Medicated 2 patch topical DAILY PRN (Reason: pain) Protocol: *Topical Application Instructions APPLICATION INSTRUCTIONS: Lumbar spine pregabalin 50 mg capsule 50 mg PO Q12H Patient Comments: take 1 capsule by mouth twice a day Referrals / Follow Up: Valerie Mullins MD [Primary Care Provider] - Within 2 Weeks Disposition Disposition (needs filled in before D/C Order can be placed): [facility]
[2023-12-06 16:45] LABS: Bedside Glucose 387 mg/dL (74-106)
[2023-12-06 21:37] VITALS: BP 157/92; PULSE 83; RESP 16; TEMP 36.6; O2SAT 97
[2023-12-06] MEDS: hydrOXYzine PAM 25 MG Capsule 50 MG PO (21:45)
[2023-12-06] MEDS: traZODone 100 MG Tablet PO (21:45)
--- NOTE | 2023-12-06 21:57 | PCM.HOSP.N ---
Hospitalist Note Patient with ongoing hyperglycemia. Recent start of glargine. From records had prior insulin pump. Will change to high dose ISS.
[2023-12-06 23:14] LABS: Bedside Glucose 464 mg/dL (74-106)
[2023-12-07 04:00] VITALS: BP 111/77; PULSE 85; RESP 16; TEMP 36.6; O2SAT 98
[2023-12-07 06:00] VITALS: BMI 25.5
[2023-12-07 07:02] LABS: Bedside Glucose 486 mg/dL (74-106)
[2023-12-07] MEDS: Insulin Lispro 100 UNIT/ML INSULN.PEN SC ×4 (07:37→22:33)
--- NOTE | 2023-12-07 07:39 | PN.HOSP_ITS ---
Reason for Visit Reason for Visit: Diagnoses Other specified diabetes mellitus without complications (12/04/23) Acidosis, unspecified (12/04/23) Alcohol abuse, uncomplicated (12/04/23) Alcohol use, unspecified with intoxication delirium (12/04/23) Depression, unspecified (12/04/23) Unspecified toxic encephalopathy (12/04/23) Acute pancreatitis without necrosis or infection, unspecified (12/04/23) Suicide attempt, initial encounter (12/04/23) Personal history of other diseases of the digestive system (12/04/23) Subjective Subjective Feeling well. Blood sugars have been elevated this AM. Objective Data Objective Data Vital Signs: Vital Signs Temp Pulse Resp BP Pulse Ox O2 Del Method O2 Flow Rate 36.6 C 85 16 111/77 98 Room Air 2 12/07/23 04:00 12/07/23 04:00 12/07/23 04:00 12/07/23 04:00 12/07/23 04:00 12/07/23 04:00 12/04/23 07:30 Oxygen Flow Rate (L/min) 2 Oxygen Delivery Method Room Air Weight: 72.2 kg Body Mass Index (BMI) 25.5 Intake & Output: Intake and Output for Last 24 Hours 12/05/23 12/06/23 12/07/23 23:59 23:59 23:59 Intake Total 2131.67 / 2131.67 1070 / 1070 Balance 2131.67 / 2131.67 1070 / 1070 Lab / Micro Data 12/06/23 06:17 12/07/23 07:23 Labs: Laboratory Results - last 24 hr 12/06/23 11:11: POC Glucose 439 H 12/06/23 16:21: POC Glucose 387 H 12/06/23 21:40: POC Glucose 464 H* 12/07/23 06:43: POC Glucose 486 H* Physical Exam Const alert and no apparent distress Constitutional Narrative: non toxic. appears much more alert and appropriate. Neuro Sensorium / Orientation: awake and alert Psych affect normal Assessment & Plan Assessment/Plan (1) Acute alcohol intoxication: QUALIFIERS: Complication of substance-induced condition: with delirium Qualified Code(s): F10.921 - Alcohol use, unspecified with intoxication delirium (2) Chronic alcohol abuse: (3) History of cirrhosis of liver: (4) Metabolic acidosis: (5) Lactic acidosis: (6) Toxic encephalopathy: QUALIFIERS: Toxic encephalopathy cause: unspecified toxin Q ualified Code(s): G92.9 - Unspecified toxic encephalopathy (7) Suicide attempt: (8) Uncontrolled depression: (9) Recurrent acute pancreatitis: PLAN: Plan Suspected intentional overdose/Toxic encephalopathy * Pt sent text that she could not take it anymore and was subsequently found unresonsive. * Unknown substance (though the patient thinks it may have been alprazolam), but apparently took that and alcohol. * Drug screen negative. Alcohol level 296 * CRISIS eval determined patient would be appropriate for psychiatric admission before discharge. Placement pending. * gabapentin held, would not resume upon discharge given suicide attempt Alcohol abuse * started on phenobarbital taper plus thiamine and folate * addiction medicine to see Metabolic acidosis * unclear etiology. Has DM2, but not in DKA. * supportive mgmt. Hypothermia * POA * no s/s of infection * likely 2/2 drug overdose. DM2 * a1c 7.3 * insulin pump at home, not on here due to policy * SSI and glargine (will increase from 20 to 40)Add glargine until can be discharged so that she may resume insulin pump. Depression * duloxetine held given intentional overdose Cirrhosis * lactulose and rifaximin held * alcoholic VTE prophylaxis - enoxaparin . Charges/Coding Visit Charges Inpatient E&M: 31765 Subs Hosp L2
[2023-12-07] MEDS: Folic Acid 1 MG Tablet PO (07:40)
[2023-12-07] MEDS: rifAXIMin 550 MG Tablet PO ×2 (07:40→22:54)
[2023-12-07] MEDS: Thiamine Hydrochloride 100 MG Tablet PO (07:40)
[2023-12-07] MEDS: DULoxetine Hcl 60 MG Capsule PO (07:40)
[2023-12-07] MEDS: Enoxaparin 40 MG/0.4 ML Syringe SC (07:41)
[2023-12-07] MEDS: Insulin Glargine-YFGN 100 UNIT/ML Pen 40 UNIT SC (07:47)
[2023-12-07 08:00] VITALS: BP 118/75; PULSE 88; RESP 12; TEMP 36.6; O2SAT 95
[2023-12-07] MEDS: Acetaminophen 325 MG Tablet 650 MG PO ×2 (08:13→18:25)
[2023-12-07 08:18] LABS: Glucose 565 mg/dL (74-106)
--- NOTE | 2023-12-07 08:18 | PCA ---
Addendum entered by Makeda Munguia 12/07/23 10:34: [facility] denied pt Addendum entered by Makeda Munguia 12/07/23 08:20: [facility], [facility] referral d/t blood sugar levels Original Note: [facility] to [facility] for placement, [facility], [facility], [facility], and [facility]
[2023-12-07 11:21] LABS: Bedside Glucose 428 mg/dL (74-106)
[2023-12-07 14:00] VITALS: BP 131/78; PULSE 86; RESP 14; TEMP 36.7; O2SAT 96
--- NOTE | 2023-12-07 14:38 | CASEMGMT ---
Social Work- SW collaboration on psychiatric hospitalization with charge nurse who reports that [facility] and [facility] have declined pt referral. There are 3 outstanding referrals as reported by [facility] ornamental bronze worker. SW will continue to follow. DIANA Toth
[2023-12-07 16:44] LABS: Bedside Glucose 354 mg/dL (74-106)
--- NOTE | 2023-12-07 20:27 | NURSING ---
Patient accepted to [facility] in [place]. transport set up for 12/08/23 [id number] report to be called to [phone]
[2023-12-07 22:26] VITALS: BP 144/90; PULSE 78; RESP 18; TEMP 36.7; O2SAT 97
[2023-12-07] MEDS: traZODone 100 MG Tablet PO (22:50)
[2023-12-07] MEDS: hydrOXYzine PAM 25 MG Capsule 50 MG PO (22:50)
[2023-12-07 23:34] LABS: Bedside Glucose 380 mg/dL (74-106)
[2023-12-08 01:10] VITALS: BP 125/77; PULSE 82; RESP 18; TEMP 36.6; O2SAT 97
[2023-12-08 05:09] VITALS: BMI 25.3
[2023-12-08 07:04] VITALS: BP 135/80; PULSE 94; RESP 18; TEMP 36.8; O2SAT 95
[2023-12-08] MEDS: Insulin Lispro 100 UNIT/ML INSULN.PEN SC (07:08)
[2023-12-08 07:27] LABS: Bedside Glucose 313 mg/dL (74-106)
--- NOTE | 2023-12-08 07:43 | DS.PCM_ITS ---
Providers Date of Admission: 12/04/23 Primary Care Physician: Dr. Valerie Mullins MD Reason For Visit: ACUTE ETOH INTOXICATION, CHRONIC ETOH ABUSE; WITH Diagnosis Discharge Diagnosis (1) Acute alcohol intoxication: Status: Acute Code(s): F10.929 - Alcohol use, unspecified with intoxication, unspecified Qualifiers: Complication of substance-induced condition: with delirium Qualified Code(s): F10.921 - Alcohol use, unspecified with intoxication delirium (2) Chronic alcohol abuse: Status: Chronic Code(s): F10.10 - Alcohol abuse, uncomplicated (3) History of cirrhosis of liver: Status: Acute Code(s): Z87.19 - Personal history of other diseases of the digestive system (4) Metabolic acidosis: Status: Acute Code(s): E87.20 - Acidosis, unspecified (5) Lactic acidosis: Status: Acute Code(s): E87.20 - Acidosis, unspecified (6) Toxic encephalopathy: Status: Acute Code(s): G92.9 - Unspecified toxic encephalopathy Qualifiers: Toxic encephalopathy cause: unspecified toxin Qualified Code(s): G92.9 - Unspecified toxic encephalopathy (7) Suicide attempt: Status: Acute Code(s): T14.91XA - Suicide attempt, initial encounter (8) Uncontrolled depression: Status: Acute Code(s): F32.A - Depression, unspecified (9) Recurrent acute pancreatitis: Status: Acute Code(s): K85.90 - Acute pancreatitis without necrosis or infection, unspecified Plan Suspected intentional overdose/Toxic encephalopathy * Pt sent text that she could not take it anymore and was subsequently found unresonsive. * Unknown substance (though the patient thinks it may have been alprazolam), but apparently took that and alcohol. * Drug screen negative. Alcohol level 296 * CRISIS eval determined patient would be appropriate for psychiatric admission before discharge. Placement pending. * gabapentin held, would not resume upon discharge given suicide attempt Alcohol abuse * started on phenobarbital taper plus thiamine and folate * addiction medicine to see Metabolic acidosis * unclear etiology. Has DM2, but not in DKA. * supportive mgmt. Hypothermia * POA * no s/s of infection * likely 2/2 drug overdose. DM2 * a1c 7.3 * insulin pump at home, not on here due to policy * SSI and glargine (will increase from 20 to 40)Add glargine until can be discharged so that she may resume insulin pump. Depression * duloxetine held given intentional overdose Cirrhosis * lactulose and rifaximin held * alcoholic VTE prophylaxis - enoxaparin . Medications at Discharge Home Medications duloxetine 60 mg capsule,delayed release 60 mg PO DAILY depression 12/10/21 ondansetron 4 mg disintegrating tablet 4 mg PO Q8H PRN nausea and vomiting #14 tabs 02/09/22 rifaximin 550 mg tablet (Xifaxan) 550 mg PO BID #60 tabs 02/20/22 midodrine 5 mg tablet 10 mg PO TID blood pressure 03/10/22 lancets #100 ea 05/02/22 needle (disp) #500 ea 05/02/22 lactulose 10 gram/15 mL oral solution 30 ml PO 3XD cirrhosis 08/02/22 furosemide 20 mg tablet (Lasix) 40 mg PO DAILY diuretic 08/15/22 blood sugar diagnostic (OneTouch Ultra Test strips) #100 ea 10/07/22 blood-glucose meter (OneTouch Ultra2 Meter) #1 ea 10/07/22 Omnipod 5 G6 Intro Kit (Gen 5) subcutaneous cartridge with controller (insulin pump cart,auto,BT-cntr) #1 ea 11/16/22 blood-glucose transmitter (Dexcom G6 Transmitter device) #1 ea 02/20/23 insulin lispro 100 unit/mL subcutaneous solution See Rx Instructions .Route .COMPLEX #10 mL 06/21/23 insulin pump cart,automated,BT (Omnipod 5 G6 Pods (Gen 5) subcutaneous cartridge) #15 ea 08/10/23 Dexcom G6 Sensor (blood-glucose sensor) #3 ea 10/26/23 blood-glucose transmitter (Dexcom G6 Transmitter device) #1 ea 11/07/23 estradiol 0.01% (0.1 mg/gram) vaginal cream 1 g vaginal 2XW yeast 11/07/23 insulin aspart U-100 100 unit/mL subcutaneous solution (Novolog U-100 Insulin aspart) 100 unit continuous subcutaneous infusion .continuous #90 mL 11/07/23 Hospital Course Operations None Procedures None Summary of Care Provided Hospital Course: Patient mated with suicide attempt. Patient took an overdose of what may have been alprazolam but also was intoxicated with an alcohol level of 296. Patient was encephalopathic. Patient did improve. Patient has no recollection of the event but before she was found unresponsive, she had sent a cryptic text to her seeming other that was concerning for ending her life. Patient did improve and was seen by crisis who evaluated her and deemed that she would be appropriate for inpatient psychiatric evaluation. Patient was pink slipped and waiting on accepting facility. Accepting facility was found and patient will be discharged to [facility] in [place]. Complicating her hospitalization is that she was diabetic and had to be taken off of her insulin pump which her blood sugars did get high but did require 20 mg of insulin glargine twice daily. Patient will resume her insulin pump upon discharge. Weight / BMI Weight Weight: 71.6 kg Body Mass Index (BMI) 25.3 ABG / Lab / Microbiology Data 12/06/23 06:17 12/07/23 07:23 Laboratory: Laboratory Results - last 24 hr 12/07/23 07:23: Glucose 565 H* 12/07/23 11:00: POC Glucose 428 H 12/07/23 16:26: POC Glucose 354 H 12/07/23 22:30: POC Glucose 380 H 12/08/23 07:03: POC Glucose 313 H D/C Instructions Discharge Diet: 2000 Calorie Control Diet Meaningful Use Info Meaningful Use Meaningful Use Diagnoses (Choose all that apply): None applicable Ischemic Stroke Statin Dosing Therapy Reference: STATIN DOSE THERAPY REFERENCE: * Patients > 75 years receive moderate or high dose statin therapy. * Patients 75 years or YOUNGER should receive HIGH intensity statin dose unless contraindicated. You will be required to document reason for non-treatment if statin daily dose does not meet guidelines. HIGH DOSE STATIN THERAPY DAILY Atorvastatin > than or = to 40 mg Rosuvastatin > than or = to 20 mg Amlodipine + Atorvastatin > than or = to 2.5/40 mg Ezetimibe + Simvastatin 10/80 mg Simvastatin 80mg Discharge Plan Admission Admit Date/Time: 12/04/23 05:22 Primary Reason for Your Visit: overdose Attending Provider: Raymond Burk Primary Care Provider: Valerie Mullins Consulting Providers: Sai Ruiz; Damien Valdovinos Discharge Orders/Prescriptions Prescriptions: Continued (DME) Omnipod 5 G6 Intro Kit (Gen 5) Cartridge See Rx Instructions .Route Qty: 1 0RF Rx Instructions: As directed estradiol 0.01 % (0.1 mg/gram) cream 1 g vaginal 2XW ([facility]) Dexcom G6 Transmitter Device See Rx Instructions .Route Qty: 1 0RF Rx Instructions: x1 insulin aspart U-100 [Novolog U-100 Insulin aspart] 100 unit/mL solution 100 unit continuous subcutaneous infusion .continuous Qty: 90 5RF duloxetine 60 mg capsule,delayed release(DR/EC) 60 mg PO DAILY Patient Comments: take 1 capsule by mouth once daily ondansetron 4 mg tablet,disintegrating 4 mg PO Q8H PRN (Reason: nausea and vomiting) Qty: 14 0RF Xifaxan 550 mg Tablet 550 mg PO BID Qty: 60 1RF midodrine 5 mg tablet 10 mg PO TID Patient Comments: TAKE TWO TABLETS (10 MG)CBY MOUTH 3 TIMES A DAY WITH MEALS lactulose 10 gram/15 mL solution 30 ml PO 3XD Patient Comments: TAKE 30 ML BY MOUTH 4CTIMES A DAY ([facility]) lancets Misc See Rx Instructions .Route Qty: 100 0RF Rx Instructions: As directed ([facility]) needle (disp) Needle See Rx Instructions .Route Qty: 500 0RF Rx Instructions: As directed furosemide [Lasix] 20 mg tablet 40 mg PO DAILY insulin lispro 100 unit/mL solution See Rx Instructions .ROUTE .COMPLEX Qty: 10 0RF Rx Instructions: Fill insulin pump as previously directed ([facility]) blood-glucose meter [OneTouch Ultra2 Meter] [facility] See Rx Instructions .Route Qty: 1 0RF Rx Instructions: As directed ([facility]) OneTouch Ultra Test Strip See Rx Instructions .Route Qty: 100 5RF Rx Instructions: TID ([facility]) Dexcom G6 Transmitter Device See Rx Instructions .Route Qty: 1 3RF Rx Instructions: As directed ([facility]) Omnipod 5 G6 Pods (Gen 5) Cartridge See Rx Instructions .Route Qty: 15 6RF Rx Instructions: 1 pod q 48 hours ([facility]) Dexcom G6 Sensor Device See Rx Instructions .Route Qty: 3 6RF Rx Instructions: As directed Discontinued alprazolam 0.25 mg tablet 0.25 mg PO BID PRN (Reason: anxiety) amitriptyline 50 mg tablet 50 mg PO QHS gabapentin 300 mg capsule 900 mg PO TID Patient Comments: take 1 capsule by mouth three times a day as directed lidocaine 5 % Adhesive Patch,Medicated 2 patch topical DAILY PRN (Reason: pain) Protocol: *Topical Application Instructions APPLICATION INSTRUCTIONS: Lumbar spine pregabalin 50 mg capsule 50 mg PO Q12H Patient Comments: take 1 capsule by mouth twice a day Referrals / Follow Up: Valerie Mullins MD [Primary Care Provider] - Within 2 Weeks Disposition Disposition (needs filled in before D/C Order can be placed): [facility]
[2023-12-08] MEDS: hydrOXYzine PAM 25 MG Capsule 50 MG PO (08:25)
[2023-12-08] MEDS: Enoxaparin 40 MG/0.4 ML Syringe SC (08:27)
[2023-12-08] MEDS: DULoxetine Hcl 60 MG Capsule PO (08:28)
[2023-12-08] MEDS: Folic Acid 1 MG Tablet PO (08:28)
[2023-12-08] MEDS: Thiamine Hydrochloride 100 MG Tablet PO (08:29)
[2023-12-08] MEDS: rifAXIMin 550 MG Tablet PO (08:29)
[2023-12-08] MEDS: Insulin Glargine-YFGN 100 UNIT/ML Pen 40 UNIT SC (08:30)
[2023-12-08 08:37] VITALS: BP 125/66; PULSE 95; RESP 18; TEMP 37.1; O2SAT 99
== END 2023-12-08 09:35 | DRG 817 ==
LOC: ED 02:06 → ICU 05:50 → MS3 12-05 14:59
PROVIDERS: Family Medicine; Admitting Provider Internal Medicine; Emergency Provider Emergency Medicine; PCP Internal Medicine
DX: T42.4X2A Poisoning by benzodiazepines, intentional self-harm, initial encounter (principal); G92.8 Other toxic encephalopathy; F10.121 Alcohol abuse with intoxication delirium; K76.82 Hepatic encephalopathy; E10.42 Type 1 diabetes mellitus with diabetic polyneuropathy; K86.0 Alcohol-induced chronic pancreatitis; E87.21 Acute metabolic acidosis; F32.A Depression, unspecified; I10 Essential (primary) hypertension; J45.909 Unspecified asthma, uncomplicated; E10.65 Type 1 diabetes mellitus with hyperglycemia; T51.0X2A Toxic effect of ethanol, intentional self-harm, initial encounter; K70.30 Alcoholic cirrhosis of liver without ascites; E78.00 Pure hypercholesterolemia, unspecified; K58.9 Irritable bowel syndrome, unspecified; F41.9 Anxiety disorder, unspecified; K21.9 Gastro-esophageal reflux disease without esophagitis; T68.XXXA Hypothermia, initial encounter; Y90.8 Blood alcohol level of 240 mg/100 ml or more; R09.02 Hypoxemia; E66.3 Overweight; Z68.27 Body mass index [BMI] 27.0-27.9, adult; Z87.891 Personal history of nicotine dependence; Z96.41 Presence of insulin pump (external) (internal); Z79.899 Other long term (current) drug therapy
CPT/HCPCS: 36415; 36600; 70450; 71045; 80048; 80053; 80061; 80076; 80307; 80329; 81001; 81025; 82009; 82077; 82140; 82607; 82746; 82803; 82947; 82962; 83036; 83605; 83690; 83735; 84100; 84443; 84484; 85025; 85610; 93005; 97802; 99252; 99285; A4216; G0463; G0480; J2405

== ENCOUNTER 2023-12-13 16:27 | Emergency (ER) | payer MEDICAID, SELFPAY ==
[2023-12-13 16:28] VITALS: BP 119/63; PULSE 106; RESP 16; TEMP 36.1; O2SAT 93; BMI 24.6
--- NOTE | 2023-12-13 17:08 | EKG12_ITS ---
Test Reason : HIGH BP Blood Pressure : / mmHG Vent. Rate : 098 BPM Atrial Rate : 098 BPM P-R Int : 172 ms QRS Dur : 074 ms QT Int : 356 ms P-R-T Axes : 026 062 039 degrees QTc Int : 454 ms Normal sinus rhythm Normal ECG Confirmed by EDUARDO BECK, SIN ([id number]), senior technical editor AMAYA PITTMAN ([id number]) on 12/15/2023 10:36:59 A M Referred By: Confirmed By:TELMA CLARK MD
[2023-12-13] MEDS: 0.9% Normal Saline (1000mL) 1,000 ML 999 ML IV ×2 (17:25→17:49)
[2023-12-13 17:32] LABS: Absolute Lymphocyte Count 2.02 X10^3/uL (0.83-4.51); Absolute Neutrophil Count 4.6 X10^3/uL (2.0-7.7); Basophil# 0.09 X10^3/uL; Basophil% 1.2 % (0-1); Eosinophil# 0.17 X10^3/uL; Eosinophils% 2.3 % (0-5); Hematocrit 36.8 % (37-47); Hemoglobin 12.5 g/dL (12.0-15.0); Lymphocyte # 2.02 X10^3/ul (0.83-4.51); Lymphocyte % 27.2 % (19-41); Mean Corpuscular Hgb 32.3 pg (27.0-32.0); Mean Corpuscular Volume 95.1 fL (81-99); Mean Platelet Vol. 10.3 fl (6.2-12.0); Monocyte# 0.51 X10^3/uL; Monocyte% 6.9 % (0-10); NRBC Flagged by Analyzer 0 % (0-5); Platelet Count 226 K/mm3 (150-450); RBC Distribution Width CV 12.6 % (11.6-14.6); RBC Distribution Width SD 43.7 fl (35.1-43.9); Red Blood Count 3.87 M/mm3 (4.2-5.4); White Blood Count 7.4 K/mm3 (4.4-11.0)
[2023-12-13 17:37] LABS: Amphetamine Urine VISTA NEGATIVE (<1000 ng/mL); Barbiturate Urine VISTA POSITIVE (< 200 ng/mL); Benzodiazepine Urine VISTA NEGATIVE (< 200 ng/mL); Cocaine Urine VISTA NEGATIVE (< 300 ng/mL); Ecstacy Urine VISTA NEGATIVE (< 500 ng/mL); Methadone Urine VISTA NEGATIVE (< 300 ng/mL); PCP Urine VISTA NEGATIVE (< 25 ng/mL); THC Urine VISTA NEGATIVE (< 50 ng/mL); Vista UDS pH Range 5
[2023-12-13 17:38] LABS: Bacteria 0 SEEN /hpf (None Seen); Mucous, Urine 0 SEEN /hpf (<or=2+); Red Blood Cells-Urine 0 SEEN /hpf (0-5); White Blood Cells 0 SEEN /hpf (0-5)
[2023-12-13 17:47] LABS: Color, Urine Yellow (Yellow); Glucose, Dipstick 1000 mg/dl (Normal); Ketone-Dipstick Negative (Negative); Leukocyte Esterase-Dipstick Negative /ul (Negative); Nitrite-Dipstick Negative (Negative); Occult Blood-Urine Negative /ul (Negative); Protein-Dipstick 15 mg/dl (Negative); Urine Bilirubin Dipstick Negative (Negative); Urine Clarity Clear (Clear); Urine Urobilinogen Normal (Normal)
[2023-12-13 17:53] LABS: Squamous Epithelial Cells - UA 0-5 SEEN /hpf (5-10)
[2023-12-13 17:55] LABS: AST(SGOT) 43 U/L (15-37); Alanine Aminotransfer ALT/SGPT 45 U/L (13-56); Albumin, Serum 3.3 g/dL (3.2-5.0); Alkaline Phosphatase 86 U/L (45-117); Anion Gap 11 (5-15); BUN 18 mg/dL (7-18); BUN/Creat Ratio 17.1 RATIO (10-20); Bilirubin, Direct 0.11 mg/dL (0.00-0.30); Calcium,Total 8.4 mg/dL (8.5-10.1); Chloride 101 mmol/L (98-107); Creatinine, Serum 1.05 mg/dL (0.55-1.02); EST Glomerular Filtration Rate 59 mL/min (>60); Est Glom Filt Rate - Afr Amer 72 mL/min (>60); Estimated Creatinine Clearance 60.67 ml/min; Globulin 3.5 g/dL (2.2-4.2); Glucose 461 mg/dL (74-106); Lipase 110 U/L (13-75); Potassium 3.9 mmol/L (3.5-5.1); Protein, Total 6.8 g/dL (6.4-8.2); Sodium Level 135 mmol/L (136-145); Troponin-I HS 4 pg/mL (3.0-54.0)
[2023-12-13 18:34] VITALS: BP 138/85; PULSE 65; RESP 16; O2SAT 98
[2023-12-13 18:50] LABS: Bedside Glucose 461 mg/dL (74-106)
[2023-12-13 19:01] VITALS: BP 138/88; PULSE 81; RESP 17; TEMP 36.2; O2SAT 100
--- NOTE | 2023-12-13 19:02 | ED.RN ---
pT. WANTED TO LEAVE, DR NEVAREZ NOTIFIED, HE STATED PT. WOULD CALL FOR A RIDE. DR. NEVAREZ STATED HE WOULD GIVE HER A DOSE OF INSULIN AND D/C PAPERS
--- NOTE | 2023-12-13 19:03 | EX.ED.DYSGE1 ---
HPI History of Present Illness Chief Complaint: Hyperglycemia Narrative Narrative: 48-year-old female presenting via EMS as she felt lightheaded at [facility]. She is intoxicated currently. She also states that her blood sugars have been running high. She is initially admitted here at [facility] because she was intoxicated but she needed to be at a [facility] hospital. She states that when she was hospitalized they took her insulin pump off of her and they have been giving her subcu insulin. She was eventually transferred to [place] but she states the facility that she was at ran out of insulin so she was transferred to another facility and had insulin. She was discharged today and her blood sugars have been in the 400s recently. She states she walked to the [facility] and thought maybe her blood sugar dropped but it was elevated had a moment of confusion and someone helped her to her car. EMS was called. She states that the symptoms that she had are gone and she feels fine at this point. [facility] Medical History Insulin pump titration Presence of insulin pump Bleeding tendency Post-menopausal Current use of insulin Irritable bowel Back pain due to injury High cholesterol History of stress test Alcohol abuse Anxiety Diabetes GERD (gastroesophageal reflux disease) Cirrhosis Malnutrition Closed head injury SBP (spontaneous bacterial peritonitis) Hypertension Alcoholic cirrhosis of liver with ascites COVID-19 H. pylori infection Post-menopausal Pancreatitis Asthma Smoker Migraines Chronic diarrhea Recurrent acute pancreatitis Fatty liver Gastritis and duodenitis Breast implant status Anxiety History of alcohol abuse Transaminitis Nicotine abuse Alcoholism HLD (hyperlipidemia) HTN (hypertension) Diabetes Home Medications ?Medication ?Instructions ?Recorded ?Last Taken ?Type duloxetine 60 mg capsule,delayed 60 mg PO DAILY depression 12/10/21 12/03/23 History release ondansetron 4 mg disintegrating 4 mg PO Q8H PRN nausea and 02/09/22 12/03/23 Rx tablet vomiting #14 tabs rifaximin 550 mg tablet (Xifaxan) 550 mg PO BID #60 tabs 02/20/22 12/03/23 Rx midodrine 5 mg tablet 10 mg PO TID blood pressure 03/10/22 12/03/23 History lancets #100 ea 05/02/22 Unknown Rx needle (disp) #500 ea 05/02/22 Unknown Rx lactulose 10 gram/15 mL oral 30 ml PO 3XD cirrhosis 08/02/22 12/03/23 History solution furosemide 20 mg tablet (Lasix) 40 mg PO DAILY diuretic 08/15/22 12/03/23 History blood sugar diagnostic (OneTouch #100 ea 10/07/22 Unknown Rx Ultra Test strips) blood-glucose meter (OneTouch #1 ea 10/07/22 Unknown Rx Ultra2 Meter) Omnipod 5 G6 Intro Kit (Gen 5) #1 ea 11/16/22 Unknown Rx subcutaneous cartridge with controller (insulin pump cart,auto,BT-cntr) blood-glucose transmitter (Dexcom #1 ea 02/20/23 Unknown Rx G6 Transmitter device) insulin lispro 100 unit/mL See Rx Instructions .Route 06/21/23 Unknown Rx subcutaneous solution .COMPLEX #10 mL insulin pump cart,automated,BT #15 ea 08/10/23 Unknown Rx (Omnipod 5 G6 Pods (Gen 5) subcutaneous cartridge) Dexcom G6 Sensor (blood-glucose #3 ea 10/26/23 Unknown Rx sensor) blood-glucose transmitter (Dexcom #1 ea 11/07/23 Unknown Rx G6 Transmitter device) estradiol 0.01% (0.1 mg/gram) 1 g vaginal 2XW yeast 11/07/23 Unknown History vaginal cream insulin aspart U-100 100 unit/mL 100 unit continuous subcutaneous 11/07/23 Unknown Rx subcutaneous solution (Novolog infusion .continuous #90 mL U-100 Insulin aspart) Allergy/AdvReac Type Severity Reaction Status Date / Time azithromycin (From Zithromax) AdvReac Diarrhea Verified 11/07/23 11:35 codeine AdvReac Nausea Verified 11/07/23 11:35 promethazine (From Phenergan) AdvReac Vomiting Verified 11/07/23 11:35 Family History Father Cancer Lung CA with tobacco use history. Heart disease Mother Cancer Hx breast CA. Diabetes Hypertension Other Alcoholic cirrhosis of liver with ascites Breast cancer High cholesterol Liver disease Osteoporosis Skin cancer Surgical History Previous back surgery S/P tonsillectomy and adenoidectomy Previous section H/O: knee surgery H/O breast augmentation Social History housing: other details: Lives at home, her 15, 16 year old children live with her. 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 substance use type: does not use what type of physical activity do you participate in: none ROS ROS ED Constitutional Constitutional ED: Denies chills, fever(s) or sweats Eyes Eyes: Reports blurry vision bilateral; Denies change in vision ENT ENT ED: Denies ear pain or sore throat Cardiovascular Cardiovascular: Reports other Details: Lightheadedness ; Denies chest pain, palpitations or racing heartbeat Respiratory/Chest Respiratory/Chest: Denies cough, dyspnea or sputum Gastrointestinal Gastrointestinal: Denies abdominal pain, constipation, diarrhea, nausea or vomiting Genitourinary Genitourinary ED: Denies dysuria, hematuria or urinary frequency Musculoskeletal Musculoskeletal: Denies arthralgias, myalgias or neck pain Integumentary Denies abscess, Abrasions or rash Neurologic Neurologic: Denies headache(s), paresthesias or weakness Psychiatric Psychiatric: Denies anxiety, depression, suicidal ideation or suicidal thoughts Endocrine Endocrinology: Denies polydipsia or polyuria EXAM Physical Exam Const Vital Signs: 12/13/23 16:28 12/13/23 16:34 12/13/23 18:34 Temperature 97.0 F L Temperature Source Oral Pulse Rate 106 H 65 Respiratory Rate 16 16 Respiratory Pattern Normal Blood Pressure 119/63 138/85 H Blood Pressure Mean 81 102 Pulse Ox 93 98 Oxygen Delivery Method Room Air Room Air 12/13/23 19:01 Temperature 97.2 F L Temperature Source Pulse Rate 81 Respiratory Rate 17 Respiratory Pattern Blood Pressure 138/88 H Blood Pressure Mean 104 Pulse Ox 100 Oxygen Delivery Method Positive well nourished General Appearance ED: Negative for pallor HEENT Reports moist mucous membranes trauma Eyes PERRL and EOMs intact bilaterally Chest Wall inspection of chest normal Resp normal respiratory effort and clear to auscultation bilaterally Auscultation: Negative for rales, rhonchi or wheezes Cardio regular rate and regular rhythm GI normal to inspection, nondistended, normoactive bowel sounds Neuro oriented x3 and CN's II-XII intact bilaterally Sensorium / Orientation: alert Motor Exam: strength 5/5 throughout Psych mental status grossly normal Skin no rashes or lesions noted General Skin Exam: Negative for jaundice or pallor MDM MDM MDM Narrative Medical decision making narrative: Patient presenting with an episode of lightheadedness and dizziness. She states her blurry. She was helped to her car and she states she is fine at this. Her blood sugars were elevated in the 400s so we discussed doing a little work. Patient also intoxicated. Differential includes alcohol intoxication, drug abuse, dehydration, anemia, hyperglycemia. CBC will be obtained to assess white blood cell count, hemoglobin, platelets. CMP to assess renal function, electrolytes, liver function, glucose. Lipase to assess for pancreatitis. Urinalysis to assess for UTI. CBC shows normal white blood cell count of 7.4. Hemoglobin 12.5. Platelets are normal at 226. Creatinine slightly elevated at 1.05. LFTs unremarkable with exception of a AST of 43. Urinalysis negative for infection. Urine drug screen shows barbiturates. Patient recently detox from alcohol. Patient was given 2 L of IV fluids. Her blood sugar came down to 391. EKG was sinus rhythm at 90 bpm without ischemic change or ectopy. High-sensitivity troponin is 4. Her alcohol level was 259 today but she is an alert and clinically does does not appear to be intoxicated. She has been very pleasant. She states that she has an insulin pump but she has not been able to get home yet to put it on. She was given 10 units of insulin here and she called for sober ride. Impression: 1. Hyperglycemia 2. Lightheadedness 3. EtOH intoxication Lab Data Attestation: I reviewed the patient's lab results. Labs: Laboratory Results - last 24 hr 12/13/23 12/13/23 12/13/23 16:45 17:10 18:56 WBC 7.4 RBC 3.87 L Hgb 12.5 Hct 36.8 L MCV 95.1 MCH 32.3 H MCHC 34.0 RDW Std Deviation 43.7 RDW Coeff of Teressa 12.6 Plt Count 226 MPV 10.3 Immature Gran % (Auto) 0.400 Neut % (Auto) 62.0 Lymph % (Auto) 27.2 Graham % (Auto) 6.9 Eos % (Auto) 2.3 Baso % (Auto) 1.2 H Absolute Neuts (auto) 4.6 Absolute Lymphs (auto) 2.02 Nucleated RBC % 0 Sodium 135 L Potassium 3.9 Chloride 101 Carbon Dioxide 23.0 Anion Gap 11 BUN 18 Creatinine 1.05 H Estim Creat Clear Calc 60.67 Est GFR (MDRD) Af Amer 72 Est GFR (MDRD) Non-Af 59 L BUN/Creatinine Ratio 17.1 Glucose 461 H* Calcium 8.4 L Total Bilirubin 0.20 Direct Bilirubin 0.11 AST 43 H ALT 45 Alkaline Phosphatase 86 Troponin I High Sens 4 Total Protein 6.8 Albumin 3.3 Globulin 3.5 Lipase 110 H Urine Color Yellow Urine Clarity Clear Urine pH 6.0 Ur Specific [place] 1.010 Urine Protein 15 H Urine Glucose (UA) 1000 H Urine Ketones Negative Urine Occult Blood Negative Urine Nitrite Negative Urine Bilirubin Negative Urine Urobilinogen Normal Ur Leukocyte Esterase Negative Urine RBC 0 SEEN Urine WBC 0 SEEN Ur Squamous Epith Cells 0-5 SEEN Urine Bacteria 0 SEEN Urine Mucus 0 SEEN Urine Opiates Screen NEGATIVE Urine Methadone Screen NEGATIVE Ur Barbiturates Screen POSITIVE H Ur Phencyclidine Scrn NEGATIVE Ur Amphetamines Screen NEGATIVE MDMA (Ecstasy) Screen NEGATIVE U Benzodiazepines Scrn NEGATIVE Urine Cocaine Screen NEGATIVE U Cannabinoids Screen NEGATIVE Ur Drug Screen Comment Ethyl Alcohol 259.0 POC Glucose 461 H* 391 H Discharge Plan Triage Chief Complaint: Hyperglycemia ED Provider: Lj Lundberg Dx/Rx/DC Orders Instructions: ED Diabetic Hyperglycemia, ED Alcohol Intoxication Prescriptions: No Action (DME) Omnipod 5 G6 Intro Kit (Gen 5) Cartridge See Rx Instructions .Route Qty: 1 0RF Rx Instructions: As directed estradiol 0.01 % (0.1 mg/gram) cream 1 g vaginal 2XW (DME) Dexcom G6 Transmitter Device See Rx Instructions .Route Qty: 1 0RF Rx Instructions: x1 insulin aspart U-100 [Novolog U-100 Insulin aspart] 100 unit/mL solution 100 unit continuous subcutaneous infusion .continuous Qty: 90 5RF duloxetine 60 mg capsule,delayed release(DR/EC) 60 mg PO DAILY Patient Comments: take 1 capsule by mouth once daily ondansetron 4 mg tablet,disintegrating 4 mg PO Q8H PRN (Reason: nausea and vomiting) Qty: 14 0RF Xifaxan 550 mg Tablet 550 mg PO BID Qty: 60 1RF midodrine 5 mg tablet 10 mg PO TID Patient Comments: TAKE TWO TABLETS (10 MG)CBY MOUTH 3 TIMES A DAY WITH MEALS lactulose 10 gram/15 mL solution 30 ml PO 3XD Patient Comments: TAKE 30 ML BY MOUTH 4CTIMES A DAY (DME) lancets Mis See Rx Instructions .Route Qty: 100 0RF Rx Instructions: As directed (DME) needle (disp) Needle See Rx Instructions .Route Qty: 500 0RF Rx Instructions: As directed furosemide [Lasix] 20 mg tablet 40 mg PO DAILY insulin lispro 100 unit/mL solution See Rx Instructions .ROUTE .COMPLEX Qty: 10 0RF Rx Instructions: Fill insulin pump as previously directed (DME) blood-glucose meter [OneTouch Ultra2 Meter] [facility] [place] See Rx Instructions .Route Qty: 1 0RF Rx Instructions: As directed (DME) OneTouch Ultra Test Strip See Rx Instructions .Route Qty: 100 5RF Rx Instructions: TID (DME) Dexcom G6 Transmitter Device See Rx Instructions .Route Qty: 1 3RF Rx Instructions: As directed (DME) Omnipod 5 G6 Pods (Gen 5) Cartridge See Rx Instructions .Route Qty: 15 6RF Rx Instructions: 1 pod q 48 hours (DME) Dexcom G6 Sensor Device See Rx Instructions .Route Qty: 3 6RF Rx Instructions: As directed Primary Care Provider: Valerie Mullins Referrals: Valerie Mullins MD [Primary Care Provider] - Print Language: Scottish Disposition Disposition: Home, Self Care Discharge Date/Time: 12/13/23 19:15
[2023-12-13] MEDS: Insulin Lispro 100 UNIT/ML INSULN.PEN 10 UNIT SC (19:07)
[2023-12-13 19:15] LABS: Bedside Glucose 391 mg/dL (74-106)
== END 2023-12-13 19:15 | disposition home or self-care (01) ==
PROVIDERS: Emergency Provider Student in an Organized Health Care Education/Training Program; PCP Internal Medicine; Visit Provider Student in an Organized Health Care Education/Training Program
DX: E11.65 Type 2 diabetes mellitus with hyperglycemia (principal); Z79.4 Long term (current) use of insulin; E78.00 Pure hypercholesterolemia, unspecified; I10 Essential (primary) hypertension; F10.120 Alcohol abuse with intoxication, uncomplicated; Y90.8 Blood alcohol level of 240 mg/100 ml or more; R42 Dizziness and giddiness; Z96.41 Presence of insulin pump (external) (internal); Z79.899 Other long term (current) drug therapy; Z86.16 Personal history of COVID-19
CPT/HCPCS: 80048; 80076; 80307; 81001; 82077; 82962; 83690; 84484; 85025; 93005; 96360; 96361; 99283; J7030

== ENCOUNTER → 2024-03-14 | Outpatient (CLI) | payer MEDICARE, MEDICAID, SELFPAY ==
--- NOTE | 2024-03-14 09:01 | NEURO ---
NCS and/or EMG Patient Report Ordering Doctor: Jose Fox DATE OF SERVICE: 03/14/24 Zara presents numbness and tingling in both legs. She has a history of lower back pain. Electrodiagnostic findings: Right peroneal motor nerve demonstrates prolonged latency with reduced amplitude and reduced conduction velocity. Left peroneal motor response when measuread at the tib anterior shows decreased amplitude and conduction velocity. Right tibial motor nerve demonstrates prolonged latency with reduced amplitude reduced conduction velocity. Left tibial motor response cannot be obtained. Sensory responses are not obtainable. Prolonged H?reflex bilaterally. Needle EMG testing was performed the lower limbs. The peroneus longus, gastrocnemius and tibialis anterior bilaterally showed motor units of increased amplitude and duration. Electrodiagnostic impression: This is an abnormal study in the lower limbs 1. Electrodiagnostic findings suggestive of peripheral polyneuropathy, with motor and sensory nerve involvement. There is both demyelination and axonal loss. 2. There is no electrodiagnostic evidence for lumbosacral radiculopathy Multi Select Codes Neurology Neurology Interp Codes: 20667-99 Musc test done w/n test comp (interp) (2) and 00703-19 Nrv cndj test 11-12 studies (interp)
== END | disposition home or self-care (01) ==
PROVIDERS: PCP Internal Medicine; Referring Provider Orthopaedic Surgery; Visit Provider Orthopaedic Surgery
DX: G90.09 Other idiopathic peripheral autonomic neuropathy (principal); R20.2 Paresthesia of skin
CPT/HCPCS: 95886; 95912

== ENCOUNTER 2024-05-31 17:52 | Inpatient (IN) | payer MEDICARE, MEDICAID, SELFPAY ==
[2024-05-31 17:53] VITALS: BP 127/69; PULSE 124; RESP 13; TEMP 35.7; O2SAT 100; BMI 19.8
[2024-05-31 19:03] LABS: Absolute Lymphocyte Count 1.39 X10^3/uL (0.83-4.51); Absolute Neutrophil Count 8.7 X10^3/uL (2.0-7.7); Basophil# 0.11 X10^3/uL; Hematocrit 44.8 % (37-47); Hemoglobin 15.4 g/dL (12.0-15.0); Lymphocyte # 1.39 X10^3/ul (0.83-4.51); Lymphocyte % 12.5 % (19-41); Mean Corp Hgb Conc 34.4 g/dL (32-36); Mean Corpuscular Hgb 29.8 pg (27.0-32.0); Mean Corpuscular Volume 86.7 fL (81-99); Mean Platelet Vol. 9.1 fl (6.2-12.0); Monocyte# 0.71 X10^3/uL; Monocyte% 6.4 % (0-10); NRBC Flagged by Analyzer 1.2 % (0-5); Neutrophil # 8.67 X10^3/uL (2.7-7.7); Platelet Count 328 K/mm3 (150-450); RBC Distribution Width CV 13.5 % (11.6-14.6); RBC Distribution Width SD 41.9 fl (35.1-43.9); Red Blood Count 5.17 M/mm3 (4.2-5.4); White Blood Count 11.1 K/mm3 (4.4-11.0)
[2024-05-31 19:17] LABS: Internal QC Validated? YES +Cl - CLEAR BKGD; Pregnancy, Serum, hCG Quali. NEGATIVE Negative
[2024-05-31 19:23] LABS: ALB/GLOB Ratio 0.9 RATIO (0.9-2.4); AST(SGOT) 17 U/L (15-37); Alanine Aminotransfer ALT/SGPT 30 U/L (13-56); Albumin, Serum 4.3 g/dL (3.2-5.0); Alkaline Phosphatase 131 U/L (45-117); Anion Gap 27 (5-15); BUN 20 mg/dL (7-18); BUN/Creat Ratio 10.3 RATIO (10-20); Calcium,Total 10.2 mg/dL (8.5-10.1); Chloride 86 mmol/L (98-107); Creatinine, Serum 1.94 mg/dL (0.55-1.02); EST Glomerular Filtration Rate 29 mL/min (>60); Est Glom Filt Rate - Afr Amer 35 mL/min (>60); Globulin 4.8 g/dL (2.2-4.2); Glucose 616 mg/dL (74-106); Potassium 2.7 mmol/L (3.5-5.1); Protein, Total 9.1 g/dL (6.4-8.2); Sodium Level 123 mmol/L (136-145)
--- NOTE | 2024-05-31 19:46 | CT_ITS ---
INDICATION: abdominal pain EXAMINATION: CT ABDOMEN AND PELVIS WITHOUT CONTRAST - CT Abdomen And Pelvis W/O Contrast Injection TECHNIQUE: Helically acquired images were obtained of the abdomen and pelvis without oral or IV contrast. A radiation dose optimization technique was used for this scan. IV Contrast dosage and agent: None. Oral contrast: None. RADIATION DOSAGE (If Supplied By Facility): CTDIvol = ( 6.07 ) mGy, DLP = ( 294.12 ) mGycm COMPARISON: No pertinent previous examinations for comparison.. FINDINGS: LOWER CHEST: 1. Lung bases are clear. 2. No cardiomegaly or pericardial effusion. 3. No significant coronary vascular calcifications. LIVER: There is a mildly lobulated contour of the liver at, early cirrhotic changes are consideration however no hepatic masses or ductal dilatation. No focal mass. GALLBLADDER AND BILIARY TREE: No calcified gallstones. No gallbladder distension or wall edema. No intra- or extrahepatic biliary ductal dilation. PANCREAS: No focal cystic or solid mass. SPLEEN: Normal size without focal cystic or solid mass. ADRENAL GLANDS: No nodules. KIDNEYS AND URETERS: Normal renal size and position. No hydronephrosis. PERITONEUM: No ascites or free air. No other fluid collection. BOWEL: No evidence of acute appendicitis. No stomach or bowel distension. No focal inflammatory change. LYMPH NODES: No enlarged mesenteric or retroperitoneal lymph nodes. VESSELS: Aorta is non-dilated. URINARY BLADDER: Unremarkable. REPRODUCTIVE ORGANS: Normal appearance the uterus and pelvic sidewalls. ABDOMINAL WALL: No discrete abdominal or pelvic wall hernia. BONES: Normal appearance of the lumbar spine from L2 to S1. There is abnormal appearance of L1 which has chronic loss of vertebral body height and evidence of vertebroplasty. No acute bony changes in the remaining bony structure. CT/Abdomen/Pelvis without Cont IMPRESSION: 1. Negative CT abdomen and pelvis without oral or IV contrast. 2. No evidence of masses bowel obstruction abscess free fluid or free air. There is a normal appendix. 3. No evidence of renal calcification or obstructive uropathy. 4. Early cirrhotic changes involving the liver. No hepatic masses. 5. No evidence cholelithiasis. 6. Remote compression deformity of L1 and evidence of vertebroplasty. Electronically Signed: Nam Carrera MD at 20:32 EST ,
--- NOTE | 2024-05-31 19:54 | EKG12_ITS ---
Test Reason : DYSRHYTHMIA Blood Pressure : */* mmHG Vent. Rate : 110 BPM Atrial Rate : 110 BPM P-R Int : 160 ms QRS Dur : 80 ms QT Int : 372 ms P-R-T Axes : 45 70 54 degrees QTcB Int : 503 ms Sinus tachycardia Otherwise normal ECG Confirmed by RAFAEL BECK, TOMY ([id number]), editorial director NATALYA ALMAZAN ([id number]) on 06/01/2024 8:24:59 AM Referred By: Abhinav Matthews Confirmed By: TOMY HALL MD
[2024-05-31 19:56] LABS: Mucous, Urine 0 SEEN /hpf (<or=2+)
[2024-05-31 19:59] LABS: Color, Urine Yellow (Yellow); Glucose, Dipstick 1000 mg/dl (Normal); Leukocyte Esterase-Dipstick Negative /ul (Negative); Nitrite-Dipstick Negative (Negative); Occult Blood-Urine 150 /ul (Negative); Protein-Dipstick 100 mg/dl (Negative); Urine Bilirubin Dipstick Negative (Negative); Urine Clarity Clear (Clear); Urine Urobilinogen Normal (Normal)
[2024-05-31 20:01] LABS: Ketone-Dipstick 150 mg/dl (Negative)
--- NOTE | 2024-05-31 20:02 | EX.ED.DYSGE1 ---
HPI <HERNÁN Dean - Last Filed: 05/31/24 22:05> History of Present Illness Chief Complaint: Nausea/Vomiting Narrative Narrative: Patient presenting today due to nausea, vomiting, and generalized abdominal pain that has been ongoing for about a week. She reports that she has lost about 30 pounds over the past 2 to 3 months without trying. She does have a history of type 1 diabetes and has an insulin pump, however, she has not been compliant with her insulin over the last week because she has not been feeling well. She has been checking her glucose at home and reports that it has been high consistently around 400. She has never been in DKA. She has a history of alcohol related liver cirrhosis, she has not drank alcohol since December 2023. She denies having abdominal pain at this time, she denies fevers, chills, urinary symptoms, diarrhea. PFS <HERNÁN Dean - Last Filed: 05/31/24 22:05> [facility] Medical History Insulin pump titration Presence of insulin pump Vitamin D deficiency Diabetes 1.5, managed as type 1 HTN (hypertension) Diabetes Uncontrolled depression Chronic alcohol abuse Lumbar compression fracture Insufficiency fracture Lumbar spondylolysis Impingement of right shoulder Herniated nucleus pulposus, L5-S1 Facet syndrome, lumbar Compression fracture of L1 lumbar vertebra History of cirrhosis of liver History of diabetes mellitus Hepatomegaly Peripheral neuropathy Diabetes type 2, controlled Anemia Elevated bilirubin Bleeding tendency Post-menopausal Current use of insulin Irritable bowel Back pain due to injury High cholesterol History of stress test Alcohol abuse Anxiety Diabetes GERD (gastroesophageal reflux disease) Cirrhosis Malnutrition Closed head injury SBP (spontaneous bacterial peritonitis) Hypertension Alcoholic cirrhosis of liver with ascites COVID-19 H. pylori infection Post-menopausal Pancreatitis Asthma Smoker Migraines Chronic diarrhea Recurrent acute pancreatitis Fatty liver Gastritis and duodenitis Breast implant status Anxiety History of alcohol abuse Transaminitis Nicotine abuse Alcoholism HLD (hyperlipidemia) Home Medications ?Medication ?Instructions ?Recorded ?Last Taken ?Type duloxetine 60 mg capsule,delayed 60 mg PO DAILY depression 12/10/21 12/03/23 History release ondansetron 4 mg disintegrating 4 mg PO Q8H PRN nausea and 02/09/22 12/03/23 Rx tablet vomiting #14 tabs rifaximin 550 mg tablet (Xifaxan) 550 mg PO BID see doctor #60 tabs 02/20/22 12/03/23 Rx midodrine 5 mg tablet 10 mg PO TID blood pressure 03/10/22 12/03/23 History lancets #100 ea 05/02/22 Unknown Rx needle (disp) #500 ea 05/02/22 Unknown Rx lactulose 10 gram/15 mL oral 30 ml PO 3XD cirrhosis 08/02/22 12/03/23 History solution furosemide 20 mg tablet (Lasix) 40 mg PO DAILY diuretic 08/15/22 12/03/23 History blood sugar diagnostic (OneTouch #100 ea 10/07/22 Unknown Rx Ultra Test strips) blood-glucose meter (OneTouch #1 ea 10/07/22 Unknown Rx Ultra2 Meter) Omnipod 5 G6 Intro Kit (Gen 5) #1 ea 11/16/22 Unknown Rx subcutaneous cartridge with controller (insulin pump cart,auto,BT-cntr) estradiol 0.01% (0.1 mg/gram) 1 g vaginal 2XW yeast 11/07/23 Unknown History vaginal cream blood-glucose transmitter (Dexcom #1 ea 01/12/24 Unknown Rx G6 Transmitter device) alprazolam 0.25 mg tablet (Xanax) 0.25 mg PO BID PRN PRN anxiety 03/15/24 Unknown History amitriptyline 10 mg tablet 10 mg PO QDAY see doctor 03/15/24 Unknown History gabapentin 300 mg capsule 300 mg PO TID see doctor 03/15/24 Unknown History hydrochlorothiazide 12.5 mg capsule 12.5 mg PO QAM PRN see doctor 03/15/24 Unknown History trazodone 50 mg tablet 25 mg PO QDAY sleep 03/15/24 Unknown History Dexcom G6 Sensor (blood-glucose #3 ea 04/02/24 Unknown Rx sensor) blood-glucose transmitter (Dexcom #1 ea 04/02/24 Unknown Rx G6 Transmitter device) insulin aspart U-100 100 unit/mL 100 unit continuous subcutaneous 04/02/24 Unknown Rx subcutaneous solution (Novolog infusion .continuous pump #90 mL U-100 Insulin aspart) insulin pump cart,automated,BT #15 ea 04/02/24 Unknown Rx insulin lispro 100 unit/mL 80 unit (0.8 mL) subcut DAILY #70 04/17/24 Unknown Rx subcutaneous solution (Humalog mL U-100 Insulin) Allergy/AdvReac Type Severity Reaction Status Date / Time azithromycin (From Zithromax) AdvReac Diarrhea Verified 05/31/24 17:53 codeine AdvReac Nausea Verified 05/31/24 17:53 promethazine (From Phenergan) AdvReac Vomiting Verified 05/31/24 17:53 Family History Father Cancer Lung CA with tobacco use history. Heart disease Mother Cancer Hx breast CA. Diabetes Hypertension Other Alcoholic cirrhosis of liver with ascites Breast cancer High cholesterol Liver disease Osteoporosis Skin cancer Surgical History Previous back surgery S/P tonsillectomy and adenoidectomy Previous section H/O: knee surgery H/O breast augmentation Social History housing: other details: Lives at home, her 15, 16 year old children live with her. 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 substance use type: does not use what type of physical activity do you participate in: none ROS <HERNÁN Dean - Last Filed: 05/31/24 22:05> ROS ED Constitutional Constitutional ED: Denies chills or fever(s) Cardiovascular Cardiovascular: Denies chest pain Respiratory/Chest Respiratory/Chest: Denies cough or dyspnea Gastrointestinal Gastrointestinal: Reports abdominal pain, constipation, nausea and vomiting; Denies diarrhea Genitourinary Genitourinary ED: Denies dysuria, hematuria or urinary urgency Musculoskeletal Musculoskeletal: Denies arthralgias or myalgias Integumentary Denies rash Neurologic Neurologic: Denies weakness EXAM <HERNÁN Dean - Last Filed: 05/31/24 22:05> Physical Exam Const Vital Signs: 05/31/24 17:53 05/31/24 21:39 Temperature 96.3 F L Temperature Source Temporal Pulse Rate 124 H 107 H Respiratory Rate 13 18 Blood Pressure 127/69 H 117/93 H Blood Pressure Mean 88 101 Pulse Ox 100 99 Oxygen Delivery Method Room Air Room Air Positive well nourished, well developed and no apparent distress General Appearance ED: well developed HEENT Reports normocephalic and head/scalp atraumatic Mouth ED: Yes moist mucous membranes normal Eyes PERRL and EOMs intact bilaterally Neck full ROM and supple Chest Wall inspection of chest normal Resp normal respiratory effort and clear to auscultation bilaterally Cardio regular rate and regular rhythm GI soft to palpation, non-distended and no masses GI Narrative: Generalized pain to palpation to the abdomen, no rigidity or guarding. Back/Spine normal ROM and normal to inspection Extremity normal to inspection and full ROM Neuro oriented x3, CN's II-XII intact bilaterally, moves all extremities, no focal motor deficits and no sensory deficits noted Sensorium / Orientation: awake and alert Psych mental status grossly normal and thought process normal Skin no rashes or lesions noted and no wounds <Dr. Abhinav Matthews DO - Last Filed: 06/01/24 01:03> Physical Exam Const Vital Signs: 05/31/24 17:53 05/31/24 21:39 Temperature 96.3 F L Temperature Source Temporal Pulse Rate 124 H 107 H Respiratory Rate 13 18 Blood Pressure 127/69 H 117/93 H Blood Pressure Mean 88 101 Pulse Ox 100 99 Oxygen Delivery Method Room Air Room Air [facility] <HERNÁN Dean - Last Filed: 05/31/24 22:05> [facility] Narrative Medical decision making narrative: Patient presenting today with nausea, vomiting, and generalized abdominal pain she has had for the past week. She reports that the abdominal pain is intermittent, she does not currently have pain at this time. She is tachycardic at 124 bpm. Labs are concerning for DKA, she has a glucose of 616, anion gap of 27, and UA does show urine ketones. Serum acetone and VBG added on, this shows a pH of 7.02, bicarb of 5.9. Patient given 2L IV fluids, IV potassium, and started on an insulin drip. I will speak with hospitalist regarding admission to to ICU for DKA. Patient admitted to the hospital in stable condition. CT scan of the abdomen pelvis obtained given her abdominal tenderness, this is to assess for appendicitis, bowel obstruction, diverticulitis, mass, and other etiology and is negative for any acute findings, does show early cirrhotic changes of the liver. Lab Data Attestation: I reviewed the patient's lab results. Labs: Laboratory Results - last 24 hr 05/31/24 05/31/24 18:52 19:52 WBC 11.1 H RBC 5.17 Hgb 15.4 H Hct 44.8 MCV 86.7 MCH 29.8 MCHC 34.4 RDW Std Deviation 41.9 RDW Coeff of Teressa 13.5 Plt Count 328 MPV 9.1 Immature Gran % (Auto) 2.100 H Neut % (Auto) 78.0 H Lymph % (Auto) 12.5 L [place] % (Auto) 6.4 Eos % (Auto) 0.0 Baso % (Auto) 1.0 Absolute Neuts (auto) 8.7 H Absolute Lymphs (auto) 1.39 Nucleated RBC % 1.2 Sodium 123 L Potassium 2.7 L* Chloride 86 L Carbon Dioxide 10.0 L Anion Gap 27 H BUN 20 H Creatinine 1.94 H Estim Creat Clear Calc 30.90 Est GFR (MDRD) Af Amer 35 L Est GFR (MDRD) Non-Af 29 L BUN/Creatinine Ratio 10.3 Glucose 616 H* Calcium 10.2 H Phosphorus 4.0 Magnesium 2.3 Total Bilirubin 0.90 AST 17 ALT 30 Alkaline Phosphatase 131 H Total Protein 9.1 H Albumin 4.3 Globulin 4.8 H Albumin/Globulin Ratio 0.9 Serum , Qual NEGATIVE Urine Color Yellow Urine Clarity Clear Urine pH 6.0 Ur Specific [place] 1.020 Urine Protein 100 H Urine Glucose (UA) 1000 H Urine Ketones 150 A* Urine Occult Blood 150 H Urine Nitrite Negative Urine Bilirubin Negative Urine Urobilinogen Normal Ur Leukocyte Esterase Negative Urine RBC 0-5 SEEN Urine WBC 0-5 SEEN Ur Squamous Epith Cells 0-5 SEEN Urine Bacteria RARE Urine Mucus 0 SEEN Acetone Level SMALL H ABG Data ABG results: ABG 05/31/24 21:40 Specimen Type SANDRINE Sample Site Not entered VBG pH 7.02 L* VBG pO2 49 H VBG HCO3 6 L VBG Total CO2 7 L VBG O2 Sat (Calc) 66 VBG Base Excess -25 L POC Mix VBG pCO2 Pt Tmp 22.6 L O2 Delivery Device Room Air Crit Call To/Read Back Yes Blood Gas Notified Whom Byron Blood Gas Notified Time 21:41:29 Radiography Diagnostic Testing: Clinical Impression(s) from Imaging Studies Abdomen/Pelvis CT 05/31/24 19:46 IMPRESSION: 1. Negative CT abdomen and pelvis without oral or IV contrast. 2. No evidence of masses bowel obstruction abscess free fluid or free air. There is a normal appendix. 3. No evidence of renal calcification or obstructive uropathy. 4. Early cirrhotic changes involving the liver. No hepatic masses. 5. No evidence cholelithiasis. 6. Remote compression deformity of L1 and evidence of vertebroplasty. Electronically Signed: Nam Carrera MD at 20:32 EST , EKG Initial EKG: Comments: 110 bpm, sinus tachycardia, no ST elevation, no hyperkalemic changes, interpreted by attending ED physician <Dr. Abhinav Matthews, DO - Last Filed: 06/01/24 01:03> [facility] MDM Narrative Medical decision making narrative: Patient presenting today with nausea, vomiting, and generalized abdominal pain she has had for the past week. She reports that the abdominal pain is intermittent, she does not currently have pain at this time. She is tachycardic at 124 bpm. Labs are concerning for DKA, she has a glucose of 616, anion gap of 27, and UA does show urine ketones. Serum acetone and VBG added on, this shows a pH of 7.02, bicarb of 5.9. Patient given 2L IV fluids, IV potassium, and started on an insulin drip. I will speak with hospitalist regarding admission to to ICU for DKA. Patient admitted to the hospital in stable condition. CT scan of the abdomen pelvis obtained given her abdominal tenderness, this is to assess for appendicitis, bowel obstruction, diverticulitis, mass, and other etiology and is negative for any acute findings, does show early cirrhotic changes of the liver. ED attending note: I evaluated the patient in conjunction with the ANAYA. I agree with his/her statements and above findings. I have personally performed a face to face assessment of the patient and have reviewed the ANAYA Note. I performed a substantive portion of the visit including all aspects of the following. I personally saw the patient performed chart review, physical exam, reviewed labs, imaging (if obtained), and formulated a treatment and management plan. This note was generated with [employer] dictation software. It may contain incorrect words, spelling, and punctuation that were not noted in review of the chart prior to signing. Lab Data Labs: Laboratory Results - last 24 hr 05/31/24 05/31/24 18:52 19:52 WBC 11.1 H RBC 5.17 Hgb 15.4 H Hct 44.8 MCV 86.7 MCH 29.8 MCHC 34.4 RDW Std Deviation 41.9 RDW Coeff of Teressa 13.5 Plt Count 328 MPV 9.1 Immature Gran % (Auto) 2.100 H Neut % (Auto) 78.0 H Lymph % (Auto) 12.5 L [place] % (Auto) 6.4 Eos % (Auto) 0.0 Baso % (Auto) 1.0 Absolute Neuts (auto) 8.7 H Absolute Lymphs (auto) 1.39 Nucleated RBC % 1.2 Sodium 123 L Potassium 2.7 L* Chloride 86 L Carbon Dioxide 10.0 L Anion Gap 27 H BUN 20 H Creatinine 1.94 H Estim Creat Clear Calc 30.90 Est GFR (MDRD) Af Amer 35 L Est GFR (MDRD) Non-Af 29 L BUN/Creatinine Ratio 10.3 Glucose 616 H* Calcium 10.2 H Phosphorus 4.0 Magnesium 2.3 Total Bilirubin 0.90 AST 17 ALT 30 Alkaline Phosphatase 131 H Total Protein 9.1 H Albumin 4.3 Globulin 4.8 H Albumin/Globulin Ratio 0.9 Serum , Qual NEGATIVE Urine Color Yellow Urine Clarity Clear Urine pH 6.0 Ur Specific [place] 1.020 Urine Protein 100 H Urine Glucose (UA) 1000 H Urine Ketones 150 A* Urine Occult Blood 150 H Urine Nitrite Negative Urine Bilirubin Negative Urine Urobilinogen Normal Ur Leukocyte Esterase Negative Urine RBC 0-5 SEEN Urine WBC 0-5 SEEN Ur Squamous Epith Cells 0-5 SEEN Urine Bacteria RARE Urine Mucus 0 SEEN Acetone Level SMALL H ABG Data ABG results: ABG 05/31/24 21:40 Specimen Type SANDRINE Sample Site Not entered VBG pH 7.02 L* VBG pO2 49 H VBG HCO3 6 L VBG Total CO2 7 L VBG O2 Sat (Calc) 66 VBG Base Excess -25 L POC Mix VBG pCO2 Pt Tmp 22.6 L O2 Delivery Device Room Air Crit Call To/Read Back Yes Blood Gas Notified Whom Byron Blood Gas Notified Time 21:41:29 Radiography Diagnostic Testing: Clinical Impression(s) from Imaging Studies Abdomen/Pelvis CT 05/31/24 19:46 IMPRESSION: 1. Negative CT abdomen and pelvis without oral or IV contrast. 2. No evidence of masses bowel obstruction abscess free fluid or free air. There is a normal appendix. 3. No evidence of renal calcification or obstructive uropathy. 4. Early cirrhotic changes involving the liver. No hepatic masses. 5. No evidence cholelithiasis. 6. Remote compression deformity of L1 and evidence of vertebroplasty. Electronically Signed: Nam Carrera MD at 20:32 EST , <Dr. Abhinav Matthews, DO - Last Filed: 06/01/24 01:03> Critical Care Time Critical Care Time: Yes Critical care time (excluding procedures): 30-74 minutes Discharge Plan Dx/Rx/DC Orders Clinical Impression: DKA (diabetic ketoacidosis), Nausea & vomiting, Cirrhosis of liver, Hypokalemia Disposition Disposition: Acute Care Hospital [facility] Discharge Date/Time: 05/31/24 22:52
[2024-05-31 20:12] LABS: Bacteria RARE /hpf (None Seen); Red Blood Cells-Urine 0-5 SEEN /hpf (0-5); Squamous Epithelial Cells - UA 0-5 SEEN /hpf (5-10); White Blood Cells 0-5 SEEN /hpf (0-5)
[2024-05-31] MEDS: 0.9% Normal Saline (1000mL) 1,000 ML 999 ML IV ×3 (20:31→23:30)
[2024-05-31] MEDS: Potassium Chloride 10mEq/100mL 10 MEQ/100 ML IV.SOLN. 100 MEQ IV BOLUS ×3 (20:31→23:26)
[2024-05-31] MEDS: Insulin Lispro 100 UNIT in 0.9% Normal Saline (100mL Bag) 99 ML 5.6 UNIT CONT INF (21:20)
[2024-05-31 21:39] VITALS: BP 117/93; PULSE 107; RESP 18; O2SAT 99
[2024-05-31] MEDS: Ondansetron 4 MG/2 ML Vial IV (21:40)
[2024-05-31 21:43] LABS: Blood Gas Specimen Type VEN; O2 Delivery Device Room Air; SITE Not entered; VBG BASE EXCESS -25 mmol/L (-1.0-3.5); VBG Bicarbonate 6 mmol/L (22-26); VBG PO2 49 mmHg (25-40); VBG SO2 66 % (50-70); VBG TCO2 7 mmol/L (23-33); VBG pCO2 22.6 mmHg (41-51); VBG pH 7.02 (7.32-7.42)
--- NOTE | 2024-05-31 22:18 | PCM.HP.STD ---
HPI - General General Date of Admission: 05/31/24 Date of Service: 05/31/24 Chief Complaint: Abdominal pain/nausea/vomiting HPI Narrative DAVID TATE, is a 48 F who presented to the emergency department at [facility] on 05/31/2024 secondary to abdominal pain/nausea/vomiting that has been ongoing for the past 7 days now. 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 She has not been compliant with her insulin pump at this time. She states her son is getting at the end of September and she has been trying to lose weight and noticed that she did not wear her insulin pump she lost weight quite quickly and she is lost about 30 pounds. She stated it has been sometime since she is not on her insulin pump on a consistent basis. She denies any fever or chills, chest pain, shortness of breath but does admit to polydipsia and polyuria with pretty significant nausea vomiting has been worsening. Patient does follow with Dr. hSon Talavera with her last appointment being on 03/15/2024. Patient states she is never had DKA before. Hemoglobin A1c at her February appointment was 7.8. Vital signs on presentation demonstrated temperature of 96.3, heart rate 124, blood pressure 127/69, respiratory was 13 and oxygen saturation was 100% on room air. CBC shows mild leukocytosis with a white count 11.1, left shift with a neutrophilia of 78 and hemoglobin was elevated at 15.4. I suspect this is related to hemoconcentration. Venous blood gas was obtained and her pH was 7.02. Chemistry panel was markedly abnormal with hyponatremia however when sodium corrected for glucose sodium is about 135, hypokalemia with a potassium of 2.7, hypochloremia, serum bicarb of 10, anion gap of 27, BUN of 20, and serum creatinine of 1.94. (Baseline serum creatinine appears to run between 0.75 and 1). Serum glucose was 616, calcium was 10.2, liver functions are unremarkable. test was negative. Urine was positive for ketones but no signs of infection and serum acetone was small. CT of the abdomen pelvis was essentially unremarkable other than remote compression fracture at L1 with previous evidence of vertebroplasty. She was treated with aggressive IV fluids and started insulin drip in the emergency department and will be minute intensive care unit. [facility]LY [facility] Medical History Insulin pump titration Presence of insulin pump Vitamin D deficiency Diabetes 1.5, managed as type 1 HTN (hypertension) Diabetes Uncontrolled depression Chronic alcohol abuse Lumbar compression fracture Insufficiency fracture Lumbar spondylolysis Impingement of right shoulder Herniated nucleus pulposus, L5-S1 Facet syndrome, lumbar Compression fracture of L1 lumbar vertebra History of cirrhosis of liver History of diabetes mellitus Hepatomegaly Peripheral neuropathy Diabetes type 2, controlled Anemia Elevated bilirubin Bleeding tendency Post-menopausal Current use of insulin Irritable bowel Back pain due to injury High cholesterol History of stress test Alcohol abuse Anxiety Diabetes GERD (gastroesophageal reflux disease) Cirrhosis Malnutrition Closed head injury SBP (spontaneous bacterial peritonitis) Hypertension Alcoholic cirrhosis of liver with ascites COVID-19 H. pylori infection Post-menopausal Pancreatitis Asthma Smoker Migraines Chronic diarrhea Recurrent acute pancreatitis Fatty liver Gastritis and duodenitis Breast implant status Anxiety History of alcohol abuse Transaminitis Nicotine abuse Alcoholism HLD (hyperlipidemia) Home Medications ?Medication ?Instructions ?Recorded ?Last Taken ?Type duloxetine 60 mg capsule,delayed 60 mg PO DAILY depression 12/10/21 12/03/23 History release ondansetron 4 mg disintegrating 4 mg PO Q8H PRN nausea and 02/09/22 12/03/23 Rx tablet vomiting #14 tabs rifaximin 550 mg tablet (Xifaxan) 550 mg PO BID see doctor #60 tabs 02/20/22 12/03/23 Rx midodrine 5 mg tablet 10 mg PO TID blood pressure 03/10/22 12/03/23 History lancets #100 ea 05/02/22 Unknown Rx needle (disp) #500 ea 05/02/22 Unknown Rx lactulose 10 gram/15 mL oral 30 ml PO 3XD cirrhosis 08/02/22 12/03/23 History solution furosemide 20 mg tablet (Lasix) 40 mg PO DAILY diuretic 08/15/22 12/03/23 History blood sugar diagnostic (OneTouch #100 ea 10/07/22 Unknown Rx Ultra Test strips) blood-glucose meter (OneTouch #1 ea 10/07/22 Unknown Rx Ultra2 Meter) Omnipod 5 G6 Intro Kit (Gen 5) #1 ea 11/16/22 Unknown Rx subcutaneous cartridge with controller (insulin pump cart,auto,BT-cntr) estradiol 0.01% (0.1 mg/gram) 1 g vaginal 2XW yeast 11/07/23 Unknown History vaginal cream blood-glucose transmitter (Dexcom #1 ea 01/12/24 Unknown Rx G6 Transmitter device) alprazolam 0.25 mg tablet (Xanax) 0.25 mg PO BID PRN PRN anxiety 03/15/24 Unknown History amitriptyline 10 mg tablet 10 mg PO QDAY see doctor 03/15/24 Unknown History gabapentin 300 mg capsule 300 mg PO TID see doctor 03/15/24 Unknown History hydrochlorothiazide 12.5 mg capsule 12.5 mg PO QAM PRN see doctor 03/15/24 Unknown History trazodone 50 mg tablet 25 mg PO QDAY sleep 03/15/24 Unknown History Dexcom G6 Sensor (blood-glucose #3 ea 04/02/24 Unknown Rx sensor) blood-glucose transmitter (Dexcom #1 ea 04/02/24 Unknown Rx G6 Transmitter device) insulin aspart U-100 100 unit/mL 100 unit continuous subcutaneous 04/02/24 Unknown Rx subcutaneous solution (Novolog infusion .continuous pump #90 mL U-100 Insulin aspart) insulin pump cart,automated,BT #15 ea 04/02/24 Unknown Rx insulin lispro 100 unit/mL 80 unit (0.8 mL) subcut DAILY #70 04/17/24 Unknown Rx subcutaneous solution (Humalog mL U-100 Insulin) Allergy/AdvReac Type Severity Reaction Status Date / Time azithromycin (From Zithromax) AdvReac Diarrhea Verified 05/31/24 17:53 codeine AdvReac Nausea Verified 05/31/24 17:53 promethazine (From Phenergan) AdvReac Vomiting Verified 05/31/24 17:53 Family History Father Cancer Lung CA with tobacco use history. Heart disease Mother Cancer Hx breast CA. Diabetes Hypertension Other Alcoholic cirrhosis of liver with ascites Breast cancer High cholesterol Liver disease Osteoporosis Skin cancer Surgical History Previous back surgery S/P tonsillectomy and adenoidectomy Previous section H/O: knee surgery H/O breast augmentation Social History housing: other details: Lives at home, her 15, 16 year old children live with her. 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 substance use type: does not use what type of physical activity do you participate in: none ROS Constitutional Constitutional: Reports anorexia, fatigue, malaise and weakness; Denies change in weight, chills, fever(s), night sweats or other Eyes Eyes: Denies blurry vision, change in eye color, change in vision, discharge from eye(s), double vision, erythema, eye pain, loss of vision or other ENT HEENT: Reports other Details: Dry mouth ; Denies abnormal hearing, dysphagia, ear pain, epistaxis, headache(s), hearing loss, nasal congestion, nasal discharge, post nasal drip, sinus pressure or sore throat Cardiovascular Cardiovascular: Denies chest pain, claudication, dyspnea on exertion, edema, lightheadedness, orthopnea, palpitations, paroxysmal nocturnal dyspnea, rapid heart rate, syncope or other Respiratory/Chest Respiratory/Chest: Denies cough, dyspnea, excessive phlegm production, hemoptysis, productive cough, shortness of breath at rest, shortness of breath with exertion, wheezing or other Gastrointestinal Gastrointestinal: Reports abdominal pain, nausea and vomiting; Denies coffee ground emesis, constipation, diarrhea, dyspepsia, hematemesis, hematochezia, loose stools, melena or other Genitourinary Genitourinary: Reports urinary frequency; Denies burning urination, difficulty urinating, dysuria, hematuria, nocturia, urinary hesitancy, urinary incontinence, urinary urgency or other Musculoskeletal Musculoskeletal: Denies arthralgias, back pain, joint pain, joint stiffness, joint swelling, myalgias, neck pain or other Neurologic Neurologic: Denies abnormal gait, abnormal speech, confusion, disequilibrium, dizziness, focal weakness, headache(s), numbness, paresthesias, seizure-like activity, seizures, syncope, tingling, tremor(s) or other Psychiatric Psychiatric: Reports anxiety and depression; Denies homicidal ideation, suicidal ideation or other Endocrine Endocrinology: Reports polydipsia and polyuria; Denies change in body appearance, cold intolerance, excessive sweating, heat intolerance or other Hematologic/Lymphatic Hematologic/Lymphatic: Denies anemia, easy bleeding, easy bruising, lymphadenopathy or other Allergic/Immunologic Allergic/Immunologic: Denies rhinitis, hives, eczemia, asthma or other Vital Signs Vital Signs Vital Signs: 05/31/24 17:53 05/31/24 21:39 Temperature 96.3 F L Temperature Source Temporal Pulse Rate 124 H 107 H Respiratory Rate 13 18 Blood Pressure 127/69 H 117/93 H Blood Pressure Mean 88 101 Pulse Ox 100 99 Oxygen Delivery Method Room Air Room Air Weight Weight: 55.792 kg Body Mass Index (BMI) 19.8 Physical Exam Const alert, oriented x3 and no apparent distress; Negative for average body habitus, healthy appearing or well nourished Constitutional Narrative: Ill-appearing, middle-aged, white female, lying in bed, does not look toxic, currently looks comfortable, very pleasant, interacts appropriately General Appearance: cooperative HEENT normocephalic, head/scalp atraumatic and hearing grossly normal bilaterally HEENT Narrative: Mucous membranes are dry, Mallampati is 2-3, no thrush Eyes EOMs intact bilaterally and conjunctivae normal Eyes Narrative: No scleral icterus Neck no lymphadenopathy and supple Neck Narrative: Trachea midline, no thyroid enlargement Resp normal respiratory effort, no retractions, no use of accessory muscles and clear to auscultation bilaterally Auscultation: Negative for rales, rhonchi or wheezes Cardio regular rhythm, S1 normal heart sound, S2 normal heart sound, no murmurs, no rub, no gallops and no clicks Cardio Narrative: Mild tachycardia GI normal to inspection, nondistended, normoactive bowel sounds, soft to palpation and non-tender Extremity no clubbing, cyanosis or edema Extremity Narrative: 2+ pedal and radial pulses Skin no wounds, No skin turgor normal, no jaundice, no petechiae and no mottling Neuro oriented x3, moves all extremities and no focal motor deficits Speech: speech normal Psych affect normal Psych Narrative: Eye contact is good and patient interacts appropriately Results Lab / Micro Data 05/31/24 18:52 05/31/24 18:52 Labs: Laboratory Results - last 24 hr 05/31/24 18:52: WBC 11.1 H, RBC 5.17, Hgb 15.4 H, Hct 44.8, MCV 86.7, MCH 29.8, MCHC 34.4, RDW Std Deviation 41.9, RDW Coeff of Teressa 13.5, Plt Count 328, MPV 9.1, Immature Gran % (Auto) 2.100 H, Neut % (Auto) 78.0 H, Lymph % (Auto) 12.5 L, [place] % (Auto) 6.4, Eos % (Auto) 0.0, Baso % (Auto) 1.0, Absolute Neuts (auto) 8.7 H, Absolute Lymphs (auto) 1.39, Nucleated RBC % 1.2, Sodium 123 L, Potassium 2.7 L*, Chloride 86 L, Carbon Dioxide 10.0 L, Anion Gap 27 H, BUN 20 H, Creatinine 1.94 H, Estim Creat Clear Calc 30.90, Est GFR (MDRD) Af Amer 35 L, Est GFR (MDRD) Non-Af 29 L, BUN/Creatinine Ratio 10.3, Glucose 616 H*, Calcium 10.2 H, Total Bilirubin 0.90, AST 17, ALT 30, Alkaline Phosphatase 131 H, Total Protein 9.1 H, Albumin 4.3, Globulin 4.8 H, Albumin/Globulin Ratio 0.9, Serum , Qual NEGATIVE, Acetone Level SMALL H 05/31/24 19:52: Urine Color Yellow, Urine Clarity Clear, Urine pH 6.0, Ur Specific [place] 1.020, Urine Protein 100 H, Urine Glucose (UA) 1000 H, Urine Ketones 150 A*, Urine Occult Blood 150 H, Urine Nitrite Negative, Urine Bilirubin Negative, Urine Urobilinogen Normal, Ur Leukocyte Esterase Negative, Urine RBC 0-5 SEEN, Urine WBC 0-5 SEEN, Ur Squamous Epith Cells 0-5 SEEN, Urine Bacteria RARE, Urine Mucus 0 SEEN ABG Data ABG results: ABG 05/31/24 21:40 Specimen Type SANDRINE Sample Site Not entered VBG pH 7.02 L* VBG pO2 49 H VBG HCO3 6 L VBG Total CO2 7 L VBG O2 Sat (Calc) 66 VBG Base Excess -25 L POC Mix VBG pCO2 Pt Tmp 22.6 L O2 Delivery Device Room Air Crit Call To/Read Back Yes Blood Gas Notified Whom Byron Blood Gas Notified Time 21:41:29 Imaging Radiology Impression Abdomen/Pelvis CT 05/31/24 19:46 IMPRESSION: 1. Negative CT abdomen and pelvis without oral or IV contrast. 2. No evidence of masses bowel obstruction abscess free fluid or free air. There is a normal appendix. 3. No evidence of renal calcification or obstructive uropathy. 4. Early cirrhotic changes involving the liver. No hepatic masses. 5. No evidence cholelithiasis. 6. Remote compression deformity of L1 and evidence of vertebroplasty. Electronically Signed: Nam Carrera MD at 20:32 EST , Assessment & Plan Assessment/Plan (1) Hypokalemia: (2) DKA (diabetic ketoacidosis): (3) Nausea & vomiting: (4) DAMIR (acute kidney injury): (5) Pseudohyponatremia: (6) Hypercalcemia: (7) Dehydration: (8) Noncompliance: PLAN: Plan Diabetic ketoacidosis -Patient is a type 1.5 diabetic who is insulin dependent on a pump -Has not recently been compliant with her pump due to noting that she loses weight while not using insulin and weight gain with insulin -Check hemoglobin A1c--> her last hemoglobin A1c was on 03/15/2024 and was 7.8 -Pump is currently off and her carb ratio is 1:3 -Insulin drip per DKA order set -Check BMP, magnesium, and phosphorus every 4 hours -Aggressive IV fluids -N.p.o. except for sips and chips for now -VBG showed a pH of 7.03 DAMIR secondary to dehydration -Serum creatinine is 1.94 at presentation -Baseline serum creatinine looks to run between 0.75 and 1.0 -Aggressive IV fluids to treat DKA and rehydrate -Avoid nephrotoxins -Hold home HCTZ and Lasix -Will keep current medications without significant adjustments for renal dosing as I do suspect when she is hydrated well her kidney function should rapidly improve -Repeat lab in a.m. Hypokalemia -Monitor closely with acidosis as watch intracellular shifts occur with insulin her potassium will drop further -Give IV potassium 80 mill equivalents -Check magnesium Abdominal pain/nausea/vomiting -Secondary to the above -IV fluids -Antiemetics Pseudohyponatremia -Serum sodium is 123 but when corrected for blood sugar of 616 improved to 135 -Should improve further with hydration Hypercalcemia -Mild and likely secondary to dehydration -Hold home HCTZ History of alcoholic liver cirrhosis -Continue home midodrine -Continue home rifaximin -Continue home lactulose -Diuretics on hold due to the above and will restart as soon as clinically able History of alcoholism -Patient states she has been sober since November Depression/anxiety -Continue home as needed Xanax -continue home amitriptyline -Continue home duloxetine -Continue home trazodone Tobacco abuse -Recommend cessation -Nicotine patch available DVT prophylaxis -Subcu heparin as ordered Medical noncompliance -Had extensive discussion with regards to the importance of compliance with insulin and patient does realize her air at this time -She is frustrated because the insulin does make her gain weight CODE STATUS -Full code as verified prior to admission Charges/Coding Visit Charges Inpatient E&M: 54272 Init Hosp L3
[2024-05-31] MEDS: Acetaminophen 325 MG Tablet 650 MG PO (22:22)
[2024-05-31 22:29] VITALS: BP 106/59; PULSE 107; RESP 19; TEMP 36.7; O2SAT 100
[2024-05-31 22:50] LABS: Bedside Glucose 449 mg/dL (74-106)
[2024-05-31 22:51] LABS: Magnesium 2.3 mg/dL (1.6-2.6)
[2024-05-31 23:14] VITALS: BP 149/76; PULSE 102; RESP 18; TEMP 36.4; O2SAT 100; BMI 20.7
[2024-06-01] VITALS (27 sets, daily range): BP systolic 106–144; BP diastolic 49–97; PULSE 84–109; RESP 11–21; TEMP 36.4–37; O2SAT 94–100; BMI 21.0
[2024-06-01 00:15] LABS: Hemoglobin A1c 12.6 % (3.8-5.6)
[2024-06-01 00:21] LABS: Anion Gap 21 (5-15); BUN 16 mg/dL (7-18); BUN/Creat Ratio 12.6 RATIO (10-20); Calcium,Total 8.4 mg/dL (8.5-10.1); Chloride 100 mmol/L (98-107); Creatinine, Serum 1.27 mg/dL (0.55-1.02); EST Glomerular Filtration Rate 47 mL/min (>60); Est Glom Filt Rate - Afr Amer 57 mL/min (>60); Estimated Creatinine Clearance 49.32 ml/min; Glucose 280 mg/dL (74-106); Potassium 2.7 mmol/L (3.5-5.1); Sodium Level 130 mmol/L (136-145)
[2024-06-01] MEDS: Potassium Chloride 10mEq/100mL 10 MEQ/100 ML IV.SOLN. 100 MEQ IV BOLUS ×9 (00:40→12:11)
[2024-06-01] MEDS: Ondansetron 4 MG/2 ML Vial IV ×3 (01:11→21:03)
[2024-06-01] MEDS: 0.9% Normal Saline (1000mL) 1,000 ML 500 ML IV (01:18)
[2024-06-01 01:19] LABS: Bedside Glucose 310 mg/dL (74-106)
[2024-06-01 01:41] LABS: Bedside Glucose 197 mg/dL (74-106)
[2024-06-01] MEDS: Acetaminophen 325 MG Tablet 650 MG PO (01:53)
[2024-06-01 02:23] LABS: Bedside Glucose 149 mg/dL (74-106)
[2024-06-01 03:26] LABS: Bedside Glucose 150 mg/dL (74-106)
[2024-06-01] MEDS: Dextrose 5%/0.9% NaCl 1,000 ML 125 ML IV (03:47)
[2024-06-01] MEDS: 0.9% Normal Saline (1000mL) 1,000 ML 150 ML IV (03:47)
[2024-06-01 04:34] LABS: Bedside Glucose 162 mg/dL (74-106)
[2024-06-01 05:21] LABS: Bedside Glucose 198 mg/dL (74-106)
[2024-06-01 06:33] LABS: Bedside Glucose 231 mg/dL (74-106)
[2024-06-01 07:00] LABS: Absolute Lymphocyte Count 1.86 X10^3/uL (0.83-4.51); Basophil# 0.04 X10^3/uL; Basophil% 0.6 % (0-1); Hematocrit 31.5 % (37-47); Hemoglobin 11.4 g/dL (12.0-15.0); Lymphocyte # 1.86 X10^3/ul (0.83-4.51); Lymphocyte % 28.4 % (19-41); Mean Corp Hgb Conc 36.2 g/dL (32-36); Mean Corpuscular Hgb 30.9 pg (27.0-32.0); Mean Corpuscular Volume 85.4 fL (81-99); Mean Platelet Vol. 8.7 fl (6.2-12.0); Monocyte# 0.57 X10^3/uL; Monocyte% 8.7 % (0-10); NRBC Flagged by Analyzer 0.5 % (0-5); Neutrophil # 3.99 X10^3/uL (2.7-7.7); Neutrophil % 60.8 % (47-70); Platelet Count 138 K/mm3 (150-450); RBC Distribution Width CV 13.3 % (11.6-14.6); RBC Distribution Width SD 41.1 fl (35.1-43.9); Red Blood Count 3.69 M/mm3 (4.2-5.4); White Blood Count 6.6 K/mm3 (4.4-11.0)
--- NOTE | 2024-06-01 07:21 | PCM.PN.HOSP ---
Reason for Visit Reason for Visit: Diagnoses Type 2 diabetes mellitus with ketoacidosis without coma (05/31/24) Hypercalcemia (05/31/24) Dehydration (05/31/24) Hypokalemia (05/31/24) Acute kidney failure, unspecified (05/31/24) Nausea with vomiting, unspecified (05/31/24) Other specified abnormal findings of blood chemistry (05/31/24) Patient's noncompliance with other medical treatment and regimen due to unspecified reason (05/31/24) Subjective Subjective Patient is a 48-year-old lady with history of diabetes mellitus type 1 0.5 insulin-dependent on an insulin pump who presented with nausea vomiting and inability to keep anything down for 6 days. Her assessment on admission was consistent with DKA. Admitted to the intensive care unit for subsequent management Objective Data Objective Data Vital Signs: Vital Signs Temp Pulse Resp BP Pulse Ox O2 Del Method 97.7 F L 98 18 117/66 100 Room Air 06/01/24 04:00 06/01/24 06:00 06/01/24 06:00 06/01/24 06:00 06/01/24 06:00 06/01/24 06:00 Oxygen Delivery Method Room Air Weight: 59.2 kg Body Mass Index (BMI) 21.0 Intake & Output: Intake and Output for Last 24 Hours 05/30/24 05/31/24 06/01/24 23:59 23:59 23:59 Intake Total 2212.42 / 2212.42 2615.47 / 2615.47 Output Total 0 / 0 Balance 2212.42 / 2212.42 2615.47 / 2615.47 Lab / Micro Data 06/01/24 06:41 06/01/24 09:50 Labs: Laboratory Results - last 24 hr 05/31/24 18:52: WBC 11.1 H, RBC 5.17, Hgb 15.4 H, Hct 44.8, MCV 86.7, MCH 29.8, MCHC 34.4, RDW Std Deviation 41.9, RDW Coeff of Teressa 13.5, Plt Count 328, MPV 9.1, Immature Gran % (Auto) 2.100 H, Neut % (Auto) 78.0 H, Lymph % (Auto) 12.5 L, [place] % (Auto) 6.4, Eos % (Auto) 0.0, Baso % (Auto) 1.0, Absolute Neuts (auto) 8.7 H, Absolute Lymphs (auto) 1.39, Nucleated RBC % 1.2, Sodium 123 L, Potassium 2.7 L*, Chloride 86 L, Carbon Dioxide 10.0 L, Anion Gap 27 H, BUN 20 H, Creatinine 1.94 H, Estim Creat Clear Calc 30.90, Est GFR (MDRD) Af Amer 35 L, Est GFR (MDRD) Non-Af 29 L, BUN/Creatinine Ratio 10.3, Glucose 616 H*, Calcium 10.2 H, Phosphorus 4.0, Magnesium 2.3, Total Bilirubin 0.90, AST 17, ALT 30, Alkaline Phosphatase 131 H, Total Protein 9.1 H, Albumin 4.3, Globulin 4.8 H, Albumin/Globulin Ratio 0.9, Serum , Qual NEGATIVE, Acetone Level SMALL H 05/31/24 19:52: Urine Color Yellow, Urine Clarity Clear, Urine pH 6.0, Ur Specific [place] 1.020, Urine Protein 100 H, Urine Glucose (UA) 1000 H, Urine Ketones 150 A*, Urine Occult Blood 150 H, Urine Nitrite Negative, Urine Bilirubin Negative, Urine Urobilinogen Normal, Ur Leukocyte Esterase Negative, Urine RBC 0-5 SEEN, Urine WBC 0-5 SEEN, Ur Squamous Epith Cells 0-5 SEEN, Urine Bacteria RARE, Urine Mucus 0 SEEN 05/31/24 22:21: POC Glucose 449 H 05/31/24 23:40: Sodium 130 L, Potassium 2.7 L*, Chloride 100, Carbon Dioxide 9.0 L*, Anion Gap 21 H, BUN 16, Creatinine 1.27 H, Estim Creat Clear Calc 49.32, Est GFR (MDRD) Af Amer 57 L, Est GFR (MDRD) Non-Af 47 L, BUN/Creatinine Ratio 12.6, Glucose 280 H, Hemoglobin A1c 12.6 H, Calcium 8.4 L 05/31/24 23:51: POC Glucose 310 H 06/01/24 01:04: POC Glucose 197 H 06/01/24 02:01: POC Glucose 149 H 06/01/24 03:05: POC Glucose 150 H 06/01/24 04:14: POC Glucose 162 H 06/01/24 05:03: POC Glucose 198 H 06/01/24 06:04: POC Glucose 231 H 06/01/24 06:41: Sodium Cancelled, Potassium Cancelled, Chloride Cancelled, Carbon Dioxide Cancelled, Anion Gap Cancelled, BUN Cancelled, Creatinine Cancelled, Est GFR (MDRD) Af Amer Cancelled, Est GFR (MDRD) Non-Af Cancelled, BUN/Creatinine Ratio Cancelled, Glucose Cancelled, Calcium Cancelled ABG Data ABG results: ABG 05/31/24 21:40 Specimen Type SANDRINE Sample Site Not entered VBG pH 7.02 L* VBG pO2 49 H VBG HCO3 6 L VBG Total CO2 7 L VBG O2 Sat (Calc) 66 VBG Base Excess -25 L POC Mix VBG pCO2 Pt Tmp 22.6 L O2 Delivery Device Room Air Crit Call To/Read Back Yes Blood Gas Notified Whom Byron Blood Gas Notified Time 21:41:29 Radiography Diagnostic Testing: Radiology Impression Abdomen/Pelvis CT 05/31/24 19:46 IMPRESSION: 1. Negative CT abdomen and pelvis without oral or IV contrast. 2. No evidence of masses bowel obstruction abscess free fluid or free air. There is a normal appendix. 3. No evidence of renal calcification or obstructive uropathy. 4. Early cirrhotic changes involving the liver. No hepatic masses. 5. No evidence cholelithiasis. 6. Remote compression deformity of L1 and evidence of vertebroplasty. Electronically Signed: Nam Carrera MD at 20:32 EST Reading Location ID and State: [address] [place] [address] Tel , Service support , Physical Exam Narrative GENERAL: cooperative but appears ill looking HEENT: Atraumatic; normocephalic EYES; Anicteric, Normal Conjunctiva NECK; supple, normal thyroid, RESPIRATORY: Diminished to auscultation CARDIOVASCULAR: Regular S1 S2, GI: soft, normoactive bowel sounds, : No Renal angle tenderness; EXTREMITIES: No edema, no clubbing, MUSCULOSKELETAL: no muscle wasting NEURO: Awake; no lateralizing signs. SKIN: No Rash PSYCH; Flat affect Assessment & Plan Assessment/Plan (1) Hypokalemia: (2) DKA (diabetic ketoacidosis): (3) Nausea & vomiting: (4) DAMIR (acute kidney injury): (5) Pseudohyponatremia: (6) Hypercalcemia: (7) Dehydration: (8) Noncompliance: PLAN: Plan Patient is a 48-year-old lady with history of diabetes mellitus type 1.5 insulin-dependent on an insulin pump who presented with nausea vomiting and inability to keep anything down for 6 days. Her assessment on admission was consistent with DKA. Admitted to the intensive care unit for subsequent management 1. Diabetic ketoacidosis ? Patient has been admitted to the intensive care unit where patient is currently being managed per protocol with IV fluids, systemic insulin with serial monitoring of electrolytes with Q4 BMP. Patient response to therapy being monitored with a glucose levels in addition to her anion gap 2. Hypokalemia ? Secondary to above corrected per protocol 3. Hypophosphatemia ? Corrected per protocol 4. Hyponatremia ? Secondary to pseudohyponatremia as a result of patient elevated glucose levels improved with improvement of sodium levels 5.? 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 Patient is currently stable on Xifaxan and lactulose 6. Acute kidney injury ? Patient started on IV hydration with subsequent monitoring of electrolytes ordered 7.? Depression with anxiety ? Patient is on alprazolam as needed in addition to duloxetine 8.? Anemia - Secondary to chronic disorder monitoring H&H and transfuse if patient becomes symptomatic or hemoglobin falls below? 7 9. Tobacco dependence - Counseled on cessation, offered nicotine patch for tobacco cravings 10. DVT prophylaxis ? Patient was started on heparin however there was a precipitous drop in her platelet count from 328 to 138 on admission heparin subsequently discontinued Critical time spent in the patient's overall evaluation,decision-making process, review of diagnostic data, adjustment of management, discussion with other providers, nursing nursing and ancillary staff involved in patient's care documentation, 40 Minutes Charges/Coding Procedures Hospitalists Procedures: 32843 Critical Care 1st Hr
[2024-06-01 07:33] LABS: ALB/GLOB Ratio 0.9 RATIO (0.9-2.4); AST(SGOT) 13 U/L (15-37); Alanine Aminotransfer ALT/SGPT 20 U/L (13-56); Albumin, Serum 2.8 g/dL (3.2-5.0); Alkaline Phosphatase 76 U/L (45-117); Anion Gap 15 (5-15); BUN 10 mg/dL (7-18); BUN/Creat Ratio 8.3 RATIO (10-20); Calcium,Total 7.9 mg/dL (8.5-10.1); Chloride 110 mmol/L (98-107); EST Glomerular Filtration Rate 51 mL/min (>60); Est Glom Filt Rate - Afr Amer 61 mL/min (>60); Globulin 3.1 g/dL (2.2-4.2); Glucose 228 mg/dL (74-106); Magnesium 1.5 mg/dL (1.6-2.6); Phosphorus 0.4 mg/dL (2.5-4.9); Potassium 2.7 mmol/L (3.5-5.1); Protein, Total 5.9 g/dL (6.4-8.2); Sodium Level 136 mmol/L (136-145)
[2024-06-01] MEDS: Potassium Chloride Oral Tablet 20 MEQ 40 MEQ PO (07:59)
[2024-06-01] MEDS: Potassium Chloride Oral Tablet 20 MEQ PO ×2 (07:59→16:02)
[2024-06-01] MEDS: Midodrine HCl 5 MG Tablet 10 MG PO ×3 (07:59→16:02)
[2024-06-01] MEDS: rifAXIMin 550 MG Tablet PO ×2 (08:00→21:02)
[2024-06-01] MEDS: DULoxetine Hcl 60 MG Capsule PO (08:00)
[2024-06-01] MEDS: Na Biphos/Potassium Phosphate PACKET 1 PACKET PO ×2 (08:34→20:59)
[2024-06-01 09:44] LABS: Bedside Glucose 189 mg/dL (74-106)
[2024-06-01] MEDS: Potassium Phosphate 40 MM in 0.9% Normal Saline (500mL Bag) 500 ML 62.5 MM IV ×2 (09:44→17:58)
[2024-06-01 09:50] LABS: Bedside Glucose 191 mg/dL (74-106)
--- NOTE | 2024-06-01 10:05 | NURSING ---
visualized patient on camera sticking fingers down her throat in attempt to make herself vomit. This RN entered patient room, asked patient if she was attempting to make herself throw up, patient stated yes I was, I feel sick and cannot get it up. This RN educated patient on notifying staff if feeling nauseous and medications available. PRN zofran given.
--- NOTE | 2024-06-01 10:18 | CASEMGMT ---
Addendum entered by Lilo Mullins 06/01/24 13:51: Social Work- SW collaborated with bedside nurse, whom had concerns about pt behaviors and potential concerns with family. Staff are closely monitoring pt; family has left. Crisis consulted as pt has been observed by staff expressing harmful behaviors to self in the form of intentionally not taking insulin/medication to 'lose weight', as well as making self vomit. Pt has hx of suicidal ideation and self harm including overdose and alcholism. Pt to be evaluated when medically stable. SW remains available to follow. DIANA Toth Original Note: Social Work- SW participated in interdisciplinary rounds. SW will remain available to follow for any needs. DIANA Toth
[2024-06-01 10:43] LABS: Anion Gap 11 (5-15); BUN 10 mg/dL (7-18); BUN/Creat Ratio 8.6 RATIO (10-20); Chloride 112 mmol/L (98-107); Creatinine, Serum 1.16 mg/dL (0.55-1.02); EST Glomerular Filtration Rate 53 mL/min (>60); Est Glom Filt Rate - Afr Amer 64 mL/min (>60); Estimated Creatinine Clearance 54.83 ml/min; Glucose 214 mg/dL (74-106); Magnesium 1.6 mg/dL (1.6-2.6); Phosphorus 0.2 mg/dL (2.5-4.9); Potassium 3.1 mmol/L (3.5-5.1); Sodium Level 134 mmol/L (136-145)
--- NOTE | 2024-06-01 10:50 | CASEMGMT ---
Addendum entered by Derik Edmondson 06/01/24 12:43: The pt RN notified this RN CM that the pt has been caught deliberately trying to make herself throw up in the room and has been practicing diabulimia. Pt RN states that she consulted Crisis who stated that the pt has a history of alcoholism and suicidal ideation with attempts. Crisis states that they will evaluate the pt once she is medically cleared. SW notified and aware. Original Note: RN CM Assessment Face to Face with patient for initial transition planning/care coordination assessment. RN CM introduced self and role at [facility], pt voices understanding. Pt is A&Ox4 and is resting comfortably in bed and is calm. Care providers, pharmacy, and demographics verified. Admitting dx: DKA JEANIEE Strata: 3 PCP: Valerie Mullins Specialists: (Endo), Friend (GI), [facility] Preferred Pharmacy: [facility] Insurance: [employer]IGEL Mavatar SCAR Prescription Benefit: Yes LNOK: Sarbjit Layne (SO), Theresa Rodger (Mother) Living Arrangements: Pt lives with her 18 y/o son in a ranch style home with 2 steps to enter ADLs/IADLs: Ind Transportation: self, pt mother DME: Insulin pump, pens, CGM, sensors, and a BGM. Pt states that she has plenty of supplies and all that she needs to manage her DM. Pt reports that she was not using this equipment properly to help her lose weight prior to her son's wedding. Pt has been given education by the bank reconciliator and denies further concerns or needs with this issue. Pt also has access to a cane and a rollator. HHC/SNF: Denies history or needs. Pt?s goal: Return home Plan: Home no needs. 6-Click score is 24. Pt denies further needs moving forward and states that she feels safe returning home once she is medically ready and denies further questions or concern
[2024-06-01] MEDS: proCHLORPERazine 10 MG/2 ML Vial 5 MG IV (12:07)
[2024-06-01] MEDS: Insulin Glargine-YFGN 100 UNIT/ML Pen 25 UNIT SC ×2 (12:48→21:26)
[2024-06-01] MEDS: Heparin Injection (Vial) 5,000 UNIT/ML VIAL 5000 UNIT SC ×2 (12:50→21:02)
[2024-06-01] MEDS: Lactulose 20 GM/30 ML UDC PO ×2 (12:50→20:59)
[2024-06-01] MEDS: Insulin Lispro 100 UNIT/ML INSULN.PEN SC ×3 (12:59→21:27)
[2024-06-01] MEDS: Gabapentin 300 MG Capsule PO ×2 (12:59→21:01)
[2024-06-01 13:23] LABS: Bedside Glucose 173 mg/dL (74-106)
--- NOTE | 2024-06-01 13:40 | NURSING ---
Male and female visitor in room, black bookbag from visitors set on bed. This RN witnessed patient on camera reaching to tie her shoe while looking directly at ceiling room camera. Patient only tied one shoe, leaving the other shoe untied. Patient previously unable to reach to end of bed to cover herself up asking staff to assist her. Visitors stayed approximately 30 minutes in room. Upon visitors leaving, patient immediately put rhinestone setter light asking to go to the bathroom. ROGER Duron assisted patient to bathroom and stayed within direct eye visualization. Patient kept looking to see if RN was watching. Patient had diarrhea, pericare performed by patient, back to bed with assistance from RN. Bed in low position, call light in reach, bed exit on, and patient continues to be on camera. ROGER Nagy home health care social worker and ROGER Azarposition description manager made aware. Crisis also updated.
[2024-06-01] MEDS: Potassium Chloride 40 MEQ in 0.45% Normal Saline 1,000 ML 150 MEQ IV ×2 (15:24→22:31)
[2024-06-01 17:27] LABS: Bedside Glucose 326 mg/dL (74-106)
[2024-06-01] MEDS: traZODone 50 MG Tablet 25 MG PO (20:59)
[2024-06-01] MEDS: Amitriptyline 10 MG Tablet PO (21:01)
[2024-06-01 21:56] LABS: Bedside Glucose 246 mg/dL (74-106)
[2024-06-01] MEDS: ALPRAZolam 0.25 MG Tablet PO (22:37)
[2024-06-02] VITALS (13 sets, daily range): BP systolic 102–134; BP diastolic 55–86; PULSE 70–99; RESP 11–20; TEMP 36.2–37.1; O2SAT 95–100; BMI 20.9
[2024-06-02] MEDS: Insulin Lispro 100 UNIT/ML INSULN.PEN SC ×5 (01:27→21:06)
[2024-06-02 01:48] LABS: Bedside Glucose 233 mg/dL (74-106)
[2024-06-02] MEDS: Gabapentin 300 MG Capsule PO ×3 (05:14→21:17)
[2024-06-02] MEDS: Lactulose 20 GM/30 ML UDC PO ×2 (05:14→13:00)
[2024-06-02] MEDS: Heparin Injection (Vial) 5,000 UNIT/ML VIAL 5000 UNIT SC (05:14)
[2024-06-02 06:12] LABS: Absolute Lymphocyte Count 1.66 X10^3/uL (0.83-4.51); Absolute Neutrophil Count 1.9 X10^3/uL (2.0-7.7); Basophil# 0.03 X10^3/uL; Basophil% 0.8 % (0-1); Eosinophil# 0.03 X10^3/uL; Eosinophils% 0.8 % (0-5); Hematocrit 30.4 % (37-47); Hemoglobin 11.1 g/dL (12.0-15.0); Lymphocyte # 1.66 X10^3/ul (0.83-4.51); Lymphocyte % 41.6 % (19-41); Mean Corp Hgb Conc 36.5 g/dL (32-36); Mean Corpuscular Hgb 30.6 pg (27.0-32.0); Mean Corpuscular Volume 83.7 fL (81-99); Mean Platelet Vol. 8.6 fl (6.2-12.0); Monocyte# 0.34 X10^3/uL; Monocyte% 8.5 % (0-10); NRBC Flagged by Analyzer 0 % (0-5); Neutrophil % 47.5 % (47-70); Platelet Count 111 K/mm3 (150-450); RBC Distribution Width CV 13.7 % (11.6-14.6); RBC Distribution Width SD 42.1 fl (35.1-43.9); Red Blood Count 3.63 M/mm3 (4.2-5.4)
[2024-06-02 06:33] LABS: Anion Gap 9 (5-15); BUN 4 mg/dL (7-18); BUN/Creat Ratio 4.2 RATIO (10-20); Calcium,Total 8.6 mg/dL (8.5-10.1); Chloride 107 mmol/L (98-107); Creatinine, Serum 0.95 mg/dL (0.55-1.02); EST Glomerular Filtration Rate 66 mL/min (>60); Est Glom Filt Rate - Afr Amer 80 mL/min (>60); Estimated Creatinine Clearance 66.83 ml/min; Glucose 353 mg/dL (74-106); Magnesium 1.3 mg/dL (1.6-2.6); Phosphorus 2.6 mg/dL (2.5-4.9); Sodium Level 135 mmol/L (136-145)
[2024-06-02 06:35] LABS: Bedside Glucose 352 mg/dL (74-106)
[2024-06-02] MEDS: Potassium Chloride 40 MEQ in 0.45% Normal Saline 1,000 ML 150 MEQ IV (07:02)
--- NOTE | 2024-06-02 07:17 | PCM.PN.HOSP ---
Reason for Visit Reason for Visit: Diagnoses Type 2 diabetes mellitus with ketoacidosis without coma (05/31/24) Hypercalcemia (05/31/24) Dehydration (05/31/24) Hypokalemia (05/31/24) Acute kidney failure, unspecified (05/31/24) Nausea with vomiting, unspecified (05/31/24) Other specified abnormal findings of blood chemistry (05/31/24) Patient's noncompliance with other medical treatment and regimen due to unspecified reason (05/31/24) Subjective Subjective Patient is out of DKA started on long-acting insulin dose of which has been adjusted. Plan is for patient to start her insulin drip. Diagnostic data this morning is significant for magnesium of 1.3. Objective Data Objective Data Vital Signs: Vital Signs Temp Pulse Resp BP Pulse Ox O2 Del Method 98.7 F 93 17 122/84 H 97 Room Air 06/02/24 04:00 06/02/24 07:00 06/02/24 07:00 06/02/24 07:00 06/02/24 07:00 06/02/24 07:00 Oxygen Delivery Method Room Air Weight: 59.1 kg Body Mass Index (BMI) 20.9 Intake & Output: Intake and Output for Last 24 Hours 05/31/24 06/01/24 06/02/24 23:59 23:59 23:59 Intake Total 2212.42 / 2212.42 6593.2733 / 6593.2733 1533.3333 / 1533.3333 Output Total 0 / 0 Balance 2212.42 / 2212.42 6593.2733 / 6593.2733 1533.3333 / 1533.3333 Lab / Micro Data 06/02/24 06:00 06/02/24 06:00 Labs: Laboratory Results - last 24 hr 06/01/24 06:41: WBC 6.6, RBC 3.69 L, Hgb 11.4 L, Hct 31.5 L, MCV 85.4, MCH 30.9, MCHC 36.2 H D, RDW Std Deviation 41.1, RDW Coeff of Teressa 13.3, Plt Count 138 L, MPV 8.7, Immature Gran % (Auto) 1.500 H, Neut % (Auto) 60.8, Lymph % (Auto) 28.4, [place] % (Auto) 8.7, Eos % (Auto) 0.0, Baso % (Auto) 0.6, Absolute Neuts (auto) 4.0, Absolute Lymphs (auto) 1.86, Nucleated RBC % 0.5, Sodium 136 06/01/24 06:41: Sodium Cancelled, Potassium 2.7 L* 06/01/24 06:41: Potassium Cancelled, Chloride 110 H 06/01/24 06:41: Chloride Cancelled, Carbon Dioxide 12.0 L 06/01/24 06:41: Carbon Dioxide Cancelled, Anion Gap 15 06/01/24 06:41: Anion Gap Cancelled, BUN 10 06/01/24 06:41: BUN Cancelled, Creatinine 1.20 H 06/01/24 06:41: Creatinine Cancelled, Estim Creat Clear Calc 53.00, Est GFR (MDRD) Af Amer 61 06/01/24 06:41: Est GFR (MDRD) Af Amer Cancelled, Est GFR (MDRD) Non-Af 51 L 06/01/24 06:41: Est GFR (MDRD) Non-Af Cancelled, BUN/Creatinine Ratio 8.3 L 06/01/24 06:41: BUN/Creatinine Ratio Cancelled, Glucose 228 H 06/01/24 06:41: Glucose Cancelled, Calcium 7.9 L 06/01/24 06:41: Calcium Cancelled, Phosphorus 0.4 L*, Magnesium 1.5 L, Total Bilirubin 0.50, AST 13 L, ALT 20, Alkaline Phosphatase 76, Total Protein 5.9 L, Albumin 2.8 L, Globulin 3.1, Albumin/Globulin Ratio 0.9 06/01/24 08:19: POC Glucose 189 H 06/01/24 09:30: POC Glucose 191 H 06/01/24 09:50: Sodium 134 L, Potassium 3.1 L, Chloride 112 H, Carbon Dioxide 12.0 L, Anion Gap 11, BUN 10, Creatinine 1.16 H, Estim Creat Clear Calc 54.83, Est GFR (MDRD) Af Amer 64, Est GFR (MDRD) Non-Af 53 L, BUN/Creatinine Ratio 8.6 L, Glucose 214 H, Calcium 8.0 L, Phosphorus 0.2 L*, Magnesium 1.6 06/01/24 12:55: POC Glucose 173 H 06/01/24 17:07: POC Glucose 326 H 06/01/24 21:26: POC Glucose 246 H 06/02/24 01:26: POC Glucose 233 H 06/02/24 05:10: WBC Cancelled, Corrected WBC Cancelled, RBC Cancelled, Hgb Cancelled, Hct Cancelled, MCV Cancelled, MCH Cancelled, MCHC Cancelled, RDW Std Deviation Cancelled, RDW Coeff of Teressa Cancelled, Plt Count Cancelled, MPV Cancelled, Immature Gran % (Auto) Cancelled, Neut % (Auto) Cancelled, Lymph % (Auto) Cancelled, [place] % (Auto) Cancelled, Eos % (Auto) Cancelled, Baso % (Auto) Cancelled, Absolute Neuts (auto) Cancelled, Absolute Lymphs (auto) Cancelled, Total Counted Cancelled, Neutrophils % (Manual) Cancelled, Band Neutrophils % Cancelled, Lymphocytes % (Manual) Cancelled, Monocytes % (Manual) Cancelled, Eosinophils % (Manual) Cancelled, Basophils % (Manual) Cancelled, Metamyelocytes % Cancelled, Myelocytes % Cancelled, Promyelocytes % Cancelled, Blast Cells % Cancelled, Plasma Cell % (Manual) Cancelled, Other Cells % Cancelled, Nucleated RBC % Cancelled, Nucleated RBCs/100 WBC Cancelled, Differential Comment Cancelled, Diff Path Review Cancelled, Hypersegmented Neuts Cancelled, Atypical Lymphocytes Cancelled, Reactive Lymphocytes Cancelled, Smudge Cells Cancelled, Toxic Granulation Cancelled, Toxic Vacuolation Cancelled, Dohle Bodies Cancelled, Earnestine Rods Cancelled, Platelet Estimate Cancelled, Plt Morphology Comment Cancelled, RBC Morphology Cancelled 06/02/24 05:10: RBC Morphology Cancelled, Polychromasia Cancelled, Hypochromasia Cancelled, Basophilic Stippling Cancelled, Anisocytosis Cancelled, Microcytosis Cancelled, Macrocytosis Cancelled, Spherocytes Cancelled, Sickle Cells Cancelled, Target Cells Cancelled, Tear Drop Cells Cancelled, Ovalocytes Cancelled, Stomatocytes Cancelled, Patterson-Stonybrook Bodies Cancelled, Steven Cells Cancelled, Bite Cells Cancelled, Crenated Cell Cancelled, Acanthocytes (Spur) Cancelled, Rouleaux Cancelled, Schistocytes Cancelled, Sodium Cancelled, Potassium Cancelled, Chloride Cancelled, Carbon Dioxide Cancelled, Anion Gap Cancelled, BUN Cancelled, Creatinine Cancelled, Estim Creat Clear Calc Cancelled, Est GFR (MDRD) Af Amer Cancelled, Est GFR (MDRD) Non-Af Cancelled, BUN/Creatinine Ratio Cancelled, Glucose Cancelled, Calcium Cancelled, Phosphorus Cancelled, Magnesium Cancelled 06/02/24 05:13: POC Glucose 352 H 06/02/24 06:00: WBC 4.0 L, RBC 3.63 L, Hgb 11.1 L, Hct 30.4 L, MCV 83.7, MCH 30.6, MCHC 36.5 H, RDW Std Deviation 42.1, RDW Coeff of Teressa 13.7, Plt Count 111 L, MPV 8.6, Immature Gran % (Auto) 0.800, Neut % (Auto) 47.5, Lymph % (Auto) 41.6 H, [place] % (Auto) 8.5, Eos % (Auto) 0.8, Baso % (Auto) 0.8, Absolute Neuts (auto) 1.9 L, Absolute Lymphs (auto) 1.66, Nucleated RBC % 0, Sodium 135 L, Potassium 3.0 L, Chloride 107, Carbon Dioxide 19.0 L, Anion Gap 9, BUN 4 L, Creatinine 0.95, Estim Creat Clear Calc 66.83, Est GFR (MDRD) Af Amer 80, Est GFR (MDRD) Non-Af 66, BUN/Creatinine Ratio 4.2 L, Glucose 353 H, Calcium 8.6, Phosphorus 2.6, Magnesium 1.3 L Physical Exam Narrative GENERAL: cooperative but appears ill looking HEENT: Atraumatic; normocephalic EYES; Anicteric, Normal Conjunctiva NECK; supple, normal thyroid, RESPIRATORY: Diminished to auscultation CARDIOVASCULAR: Regular S1 S2, GI: soft, normoactive bowel sounds, : No Renal angle tenderness; EXTREMITIES: No edema, no clubbing, MUSCULOSKELETAL: no muscle wasting NEURO: Awake; no lateralizing signs. SKIN: No Rash PSYCH; Flat affect Assessment & Plan Assessment/Plan (1) Hypokalemia: (2) DKA (diabetic ketoacidosis): (3) Nausea & vomiting: (4) DAMIR (acute kidney injury): (5) Pseudohyponatremia: (6) Hypercalcemia: (7) Dehydration: (8) Noncompliance: PLAN: Plan Patient is a 48-year-old lady with history of diabetes mellitus type 1.5 insulin-dependent on an insulin pump who presented with nausea vomiting and inability to keep anything down for 6 days. Her assessment on admission was consistent with DKA. Admitted to the intensive care unit for subsequent management 1. Diabetic ketoacidosis ? Patient has been admitted to the intensive care unit where patient is currently being managed per protocol with IV fluids, systemic insulin with serial monitoring of electrolytes with Q4 BMP. Patient response to therapy being monitored with a glucose levels in addition to her anion gap ? 05/2024; DKA resolved patient started on long-acting insulin plan is to transition to patient's on insulin drip 2. Hypokalemia ? Secondary to above corrected per protocol 3. Hypophosphatemia ? Corrected per protocol 4. Hyponatremia ? Secondary to pseudohyponatremia as a result of patient elevated glucose levels improved with improvement of sodium levels 5.? 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 Patient is currently stable on Xifaxan and lactulose 6. Acute kidney injury ? Patient started on IV hydration with subsequent monitoring of electrolytes ordered 7.? Depression with anxiety ? Patient is on alprazolam as needed in addition to duloxetine ? 05/2024 consult was placed to the crisis team patient is medically stable to be evaluated 8.? Anemia - Secondary to chronic disorder monitoring H&H and transfuse if patient becomes symptomatic or hemoglobin falls below? 7 9. Tobacco dependence - Counseled on cessation, offered nicotine patch for tobacco cravings 10. DVT prophylaxis ? Patient was started on heparin however there was a precipitous drop in her platelet count from 328 to 138 on admission heparin subsequently discontinued 11. Hypomagnesemia - corrected per protocol repeat labs ordered for monitoring Critical time spent in the patient's overall evaluation,decision-making process, review of diagnostic data, adjustment of management, discussion with other providers, nursing nursing and ancillary staff involved in patient's care documentation,50 Minutes Charges/Coding Visit Charges Inpatient E&M: 43358 [facility] L3
[2024-06-02] MEDS: Magnesium Sulfate 4gm/100mL 4 GM/100 ML IV.SOLN. IV (07:37)
[2024-06-02] MEDS: rifAXIMin 550 MG Tablet PO ×2 (07:38→21:08)
[2024-06-02] MEDS: Midodrine HCl 5 MG Tablet 10 MG PO ×3 (07:38→16:35)
[2024-06-02] MEDS: Potassium Chloride Oral Tablet 20 MEQ 40 MEQ PO ×2 (07:38→16:35)
[2024-06-02] MEDS: Na Biphos/Potassium Phosphate PACKET 1 PACKET PO ×2 (07:39→21:08)
[2024-06-02] MEDS: DULoxetine Hcl 60 MG Capsule PO (07:39)
[2024-06-02 08:15] LABS: Cholesterol 301 mg/dL (200); High Density Lipoprotein 33 mg/dL; Triglycerides 626 mg/dL
--- NOTE | 2024-06-02 09:03 | CASEMGMT ---
Social Work As per physician, pt can be seen by crisis today. SW called crisis, spoke w/Shruti, she will be here in the next hour. SW notified the RN in ICU. HEIDY Gunter
[2024-06-02] MEDS: Insulin Glargine-YFGN 100 UNIT/ML Pen 40 UNIT SC ×2 (09:21→21:07)
[2024-06-02 09:42] LABS: Bedside Glucose 287 mg/dL (74-106)
[2024-06-02] MEDS: Atorvastatin Calcium 80 MG Tablet PO (11:11)
[2024-06-02] MEDS: Magnesium Chloride 64 MG Delay Rel.Tablet 128 MG PO ×2 (11:12→21:09)
[2024-06-02] MEDS: Insulin Lispro 100 UNIT/ML INSULN.PEN 10 UNIT SC ×2 (12:59→16:36)
[2024-06-02 13:19] LABS: Bedside Glucose 358 mg/dL (74-106)
[2024-06-02 16:59] LABS: Bedside Glucose 170 mg/dL (74-106)
[2024-06-02] MEDS: Amitriptyline 10 MG Tablet PO (21:07)
[2024-06-02] MEDS: traZODone 50 MG Tablet 25 MG PO (21:08)
--- NOTE | 2024-06-02 21:10 | NURSING ---
Patient refusing lactulose this evening. Educated that d/t her liver disease she really should be taking every dose she can get. Patient stated that she knows she has chronic liver disease but she has 'not slept good at the hospital' and does not want to be going in and out of the bathroom all night. This nurse stated that was the intended purpose of the medication, however patient still adamant that she does not want her evening dose.
[2024-06-02] MEDS: ALPRAZolam 0.25 MG Tablet PO (21:17)
[2024-06-02 21:32] LABS: Bedside Glucose 292 mg/dL (74-106)
[2024-06-03 02:00] VITALS: BP 121/66; PULSE 75; RESP 16; TEMP 36.8; O2SAT 97
[2024-06-03 02:15] LABS: Bedside Glucose 338 mg/dL (74-106)
[2024-06-03] MEDS: Insulin Lispro 100 UNIT/ML INSULN.PEN 10 UNIT SC ×3 (02:52→11:18)
[2024-06-03] MEDS: Gabapentin 300 MG Capsule PO (06:13)
[2024-06-03] MEDS: Lactulose 20 GM/30 ML UDC PO (06:13)
[2024-06-03 06:27] LABS: Absolute Lymphocyte Count 2.28 X10^3/uL (0.83-4.51); Absolute Neutrophil Count 1.8 X10^3/uL (2.0-7.7); Basophil# 0.04 X10^3/uL; Basophil% 0.8 % (0-1); Eosinophil# 0.09 X10^3/uL; Eosinophils% 1.9 % (0-5); Hematocrit 32.6 % (37-47); Hemoglobin 11.6 g/dL (12.0-15.0); Lymphocyte # 2.28 X10^3/ul (0.83-4.51); Lymphocyte % 48.1 % (19-41); Mean Corp Hgb Conc 35.6 g/dL (32-36); Mean Corpuscular Hgb 30.2 pg (27.0-32.0); Mean Corpuscular Volume 84.9 fL (81-99); Mean Platelet Vol. 8.6 fl (6.2-12.0); Monocyte% 10.5 % (0-10); NRBC Flagged by Analyzer 0.4 % (0-5); Neutrophil # 1.76 X10^3/uL (2.7-7.7); Neutrophil % 37.2 % (47-70); Platelet Count 113 K/mm3 (150-450); RBC Distribution Width CV 14.4 % (11.6-14.6); RBC Distribution Width SD 43.8 fl (35.1-43.9); Red Blood Count 3.84 M/mm3 (4.2-5.4); White Blood Count 4.7 K/mm3 (4.4-11.0)
[2024-06-03 06:40] LABS: Anion Gap 4 (5-15); BUN 3 mg/dL (7-18); BUN/Creat Ratio 3.8 RATIO (10-20); Calcium,Total 9.3 mg/dL (8.5-10.1); Chloride 110 mmol/L (98-107); Creatinine, Serum 0.78 mg/dL (0.55-1.02); EST Glomerular Filtration Rate 83 mL/min (>60); Est Glom Filt Rate - Afr Amer 100 mL/min (>60); Glucose 181 mg/dL (74-106); Magnesium 2.2 mg/dL (1.6-2.6); Phosphorus 2.1 mg/dL (2.5-4.9); Potassium 3.2 mmol/L (3.5-5.1); Sodium Level 140 mmol/L (136-145)
--- NOTE | 2024-06-03 07:09 | PCM.DC.SUM ---
Providers Date of Admission: 05/31/24 Date of Discharge: 06/03/24 Primary Care Physician: Dr. Valerie Mullins MD Reason For Visit: DKA Diagnosis Discharge Diagnosis (1) Hypokalemia: Status: Acute Code(s): E87.6 - Hypokalemia (2) DKA (diabetic ketoacidosis): Status: Acute Code(s): E11.10 - Type 2 diabetes mellitus with ketoacidosis without coma (3) Nausea & vomiting: Status: Acute Code(s): R11.2 - Nausea with vomiting, unspecified (4) DAMIR (acute kidney injury): Status: Acute Code(s): N17.9 - Acute kidney failure, unspecified (5) Pseudohyponatremia: Status: Acute Code(s): R79.89 - Other specified abnormal findings of blood chemistry (6) Hypercalcemia: Status: Acute Code(s): E83.52 - Hypercalcemia (7) Dehydration: Status: Acute Code(s): E86.0 - Dehydration (8) Noncompliance: Status: Acute Code(s): Z91.199 - Patient's noncompliance with other medical treatment and regimen due to unspecified reason Plan Patient is a 48-year-old lady with history of diabetes mellitus type 1.5 insulin-dependent on an insulin pump who presented with nausea vomiting and inability to keep anything down for 6 days. Her assessment on admission was consistent with DKA. Admitted to the intensive care unit for subsequent management 1. Diabetic ketoacidosis ? Patient has been admitted to the intensive care unit where patient is currently being managed per protocol with IV fluids, systemic insulin with serial monitoring of electrolytes with Q4 BMP. Patient response to therapy being monitored with a glucose levels in addition to her anion gap ? 06/02/2024; DKA resolved patient started on long-acting insulin plan is to transition to patient's on insulin drip -06/03/2024; plan for patient to be discharged 2. Hypokalemia ? Secondary to above corrected per protocol 3. Hypophosphatemia ? Corrected per protocol 4. Hyponatremia ? Secondary to pseudohyponatremia as a result of patient elevated glucose levels improved with improvement of sodium levels 5.? 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 Patient is currently stable on Xifaxan and lactulose 6. Acute kidney injury ? Patient started on IV hydration with subsequent monitoring of electrolytes ordered 7.? Depression with anxiety ? Patient is on alprazolam as needed in addition to duloxetine ? 05/2024 consult was placed to the crisis team patient is medically stable to be evaluated 8.? Anemia - Secondary to chronic disorder monitoring H&H and transfuse if patient becomes symptomatic or hemoglobin falls below? 7 9. Tobacco dependence - Counseled on cessation, offered nicotine patch for tobacco cravings 10. DVT prophylaxis ? Patient was started on heparin however there was a precipitous drop in her platelet count from 328 to 138 on admission heparin subsequently discontinued 11. Hypomagnesemia - corrected per protocol repeat labs ordered for monitoring Critical time spent in the patient's overall evaluation,decision-making process, review of diagnostic data, adjustment of management, discussion with other providers, nursing nursing and ancillary staff involved in patient's care documentation, 35 Minutes Medications at Discharge Home Medications duloxetine 60 mg capsule,delayed release 60 mg PO DAILY depression 12/10/21 ondansetron 4 mg disintegrating tablet 4 mg PO Q8H PRN nausea and vomiting #14 tabs 02/09/22 rifaximin 550 mg tablet (Xifaxan) 550 mg PO BID see doctor #60 tabs 02/20/22 midodrine 5 mg tablet 10 mg PO TID blood pressure 03/10/22 lancets #100 ea 05/02/22 needle (disp) #500 ea 05/02/22 lactulose 10 gram/15 mL oral solution 30 ml PO 3XD cirrhosis 08/02/22 furosemide 20 mg tablet (Lasix) 40 mg PO DAILY diuretic 08/15/22 blood sugar diagnostic (OneTouch Ultra Test strips) #100 ea 10/07/22 blood-glucose meter (OneTouch Ultra2 Meter) #1 ea 10/07/22 Omnipod 5 G6 Intro Kit (Gen 5) subcutaneous cartridge with controller (insulin pump cart,auto,BT-cntr) #1 ea 11/16/22 estradiol 0.01% (0.1 mg/gram) vaginal cream 1 g vaginal 2XW yeast 11/07/23 blood-glucose transmitter ([employer] G6 Transmitter device) #1 ea 01/12/24 alprazolam 0.25 mg tablet (Xanax) 0.25 mg PO BID PRN PRN anxiety 03/15/24 amitriptyline 10 mg tablet 10 mg PO QDAY see doctor 03/15/24 gabapentin 300 mg capsule 300 mg PO TID see doctor 03/15/24 trazodone 50 mg tablet 25 mg PO QDAY sleep 03/15/24 Dexcom G6 Sensor (blood-glucose sensor) #3 ea 04/02/24 blood-glucose transmitter (Dexcom G6 Transmitter device) #1 ea 04/02/24 insulin aspart U-100 100 unit/mL subcutaneous solution (Novolog U-100 Insulin aspart) 100 unit continuous subcutaneous infusion .continuous pump #90 mL 04/02/24 insulin pump cart,automated,BT #15 ea 04/02/24 insulin lispro 100 unit/mL subcutaneous solution (Humalog U-100 Insulin) 80 unit (0.8 mL) subcut DAILY #70 mL 04/17/24 atorvastatin 80 mg tablet 80 mg PO QHS #90 tabs 06/03/24 magnesium chloride 64 mg (magnesium chloride) tablet,delayed release (Mag 64) 128 mg (2 x 64 mg) PO BID #60 tabs 06/03/24 potassium chloride 20 mEq tablet,extended release(part/cryst) 40 meq (2 x 20 mEq) PO DAILY #30 tabs 06/03/24 potassium, sodium phosphates 280 mg-160 mg-250 mg oral powder packet 1 packet PO BID #60 ea 06/03/24 Physical Exam Narrative GENERAL: cooperative HEENT: Atraumatic; normocephalic EYES; Anicteric, Normal Conjunctiva NECK; supple, normal thyroid, RESPIRATORY: Diminished to auscultation CARDIOVASCULAR: Regular S1 S2, GI: soft, normoactive bowel sounds, : No Renal angle tenderness; EXTREMITIES: No edema, no clubbing, MUSCULOSKELETAL: no muscle wasting NEURO: Awake; no lateralizing signs. SKIN: No Rash PSYCH; Flat affect Weight / BMI Weight Weight: 59.1 kg Body Mass Index (BMI) 20.9 ABG / Lab / Microbiology Data 06/03/24 06:20 06/03/24 06:20 Laboratory: Laboratory Results - last 24 hr 06/02/24 09:20: POC Glucose 287 H 06/02/24 12:58: POC Glucose 358 H 06/02/24 16:34: POC Glucose 170 H 06/02/24 21:05: POC Glucose 292 H 06/03/24 01:55: POC Glucose 338 H 06/03/24 06:20: WBC 4.7, RBC 3.84 L, Hgb 11.6 L, Hct 32.6 L, MCV 84.9, MCH 30.2, MCHC 35.6, RDW Std Deviation 43.8, RDW Coeff of Teressa 14.4, Plt Count 113 L, MPV 8.6, Immature Gran % (Auto) 1.500 H, Neut % (Auto) 37.2 L, Lymph % (Auto) 48.1 H, [place] % (Auto) 10.5 H, Eos % (Auto) 1.9, Baso % (Auto) 0.8, Absolute Neuts (auto) 1.8 L, Absolute Lymphs (auto) 2.28, Nucleated RBC % 0.4, Sodium 140, Potassium 3.2 L, Chloride 110 H, Carbon Dioxide 25.0, Anion Gap 4 L, BUN 3 L, Creatinine 0.78, Estim Creat Clear Calc 81.40, Est GFR (MDRD) Af Amer 100, Est GFR (MDRD) Non-Af 83, BUN/Creatinine Ratio 3.8 L, Glucose 181 H, Calcium 9.3, Phosphorus 2.1 L, Magnesium 2.2 06/03/24 07:24: POC Glucose 212 H D/C Instructions Discharge Diet: 1800 Calorie Control Diet Discharge Activity: Return to Normal Activity Call your doctor if you observe: Fever of 101 or Higher, Shortness of breath, Fainting spells and Chest pain DC O2, CPAP, BIPAP Needs Home O2 Discharge instructions: No Meaningful Use Info Meaningful Use Meaningful Use Diagnoses (Choose all that apply): None applicable Ischemic Stroke Statin Dosing Therapy Reference: STATIN DOSE THERAPY REFERENCE: * Patients > 75 years receive moderate or high dose statin therapy. * Patients 75 years or YOUNGER should receive HIGH intensity statin dose unless contraindicated. You will be required to document reason for non-treatment if statin daily dose does not meet guidelines. HIGH DOSE STATIN THERAPY DAILY Atorvastatin > than or = to 40 mg Rosuvastatin > than or = to 20 mg Amlodipine + Atorvastatin > than or = to 2.5/40 mg Ezetimibe + Simvastatin 10/80 mg Simvastatin 80mg Discharge Plan Admission Admit Date/Time: 05/31/24 22:01 Attending Provider: Sai Aparicio Primary Care Provider: Valerie Mullins Consulting Providers: Theresa Carter Discharge Orders/Prescriptions Prescriptions: New atorvastatin 80 mg Tablet 80 mg PO QHS Qty: 90 0RF potassium chloride 20 mEq Tablet,Er Particles/Crystals 40 meq PO DAILY Qty: 30 0RF potassium, sodium phosphates 280-160-250 mg Powder In Packet 1 packet PO BID Qty: 60 0RF magnesium chloride [Mag 64] 64 mg Tablet,Delayed Release (Dr/Ec) 128 mg PO BID Qty: 60 0RF Continued (DME) Omnipod 5 G6 Intro Kit (Gen 5) Cartridge See Rx Instructions .Route Qty: 1 0RF Rx Instructions: As directed estradiol 0.01 % (0.1 mg/gram) cream 1 g vaginal 2XW trazodone 50 mg tablet 25 mg PO QDAY alprazolam [Xanax] 0.25 mg tablet 0.25 mg PO BID PRN PRN (Reason: anxiety) amitriptyline 10 mg tablet 10 mg PO QDAY gabapentin 300 mg capsule 300 mg PO TID duloxetine 60 mg capsule,delayed release(DR/EC) 60 mg PO DAILY Patient Comments: take 1 capsule by mouth once daily ondansetron 4 mg tablet,disintegrating 4 mg PO Q8H PRN (Reason: nausea and vomiting) Qty: 14 0RF Xifaxan 550 mg Tablet 550 mg PO BID Qty: 60 1RF midodrine 5 mg tablet 10 mg PO TID Patient Comments: TAKE TWO TABLETS (10 MG)CBY MOUTH 3 TIMES A DAY WITH MEALS lactulose 10 gram/15 mL solution 30 ml PO 3XD Patient Comments: TAKE 30 ML BY MOUTH 4CTIMES A DAY (DME) lancets Misc See Rx Instructions .Route Qty: 100 0RF Rx Instructions: As directed (DME) needle (disp) Needle See Rx Instructions .Route Qty: 500 0RF Rx Instructions: As directed furosemide [Lasix] 20 mg tablet 40 mg PO DAILY (DME) blood-glucose meter [OneTouch Ultra2 Meter] Misc See Rx Instructions .Route Qty: 1 0RF Rx Instructions: As directed (DME) OneTouch Ultra Test Strip See Rx Instructions .Route Qty: 100 5RF Rx Instructions: TID (DME) Dexcom G6 Transmitter Device See Rx Instructions .Route Qty: 1 0RF Rx Instructions: x1 (DME) Dexcom G6 Transmitter Device See Rx Instructions .Route Qty: 1 3RF Rx Instructions: As directed (DME) Dexcom G6 Sensor Device See Rx Instructions .Route Qty: 3 6RF Rx Instructions: As directed insulin aspart U-100 [Novolog U-100 Insulin aspart] 100 unit/mL solution 100 unit continuous subcutaneous infusion .continuous Qty: 90 5RF (DME) insulin pump cart,automated,BT Cartridge See Rx Instructions .Route Qty: 15 6RF Rx Instructions: 1 pod q 48 hours insulin lispro [Humalog U-100 Insulin] 100 unit/mL solution 80 unit subcut DAILY Qty: 70 1RF Discontinued hydrochlorothiazide 12.5 mg capsule 12.5 mg PO QAM PRN (Reason: see doctor ) Referrals / Follow Up: Valerie Mullins MD [Primary Care Provider] - In 1 Week Disposition Disposition (needs filled in before D/C Order can be placed): Home, Self Care Charges/Coding Visit Charges Inpatient E&M: 35697 Disch Hosp >30min
[2024-06-03 07:47] LABS: Bedside Glucose 212 mg/dL (74-106)
[2024-06-03 08:00] VITALS: BP 104/56; PULSE 79; RESP 20; TEMP 36.8; O2SAT 100
[2024-06-03] MEDS: Insulin Lispro 100 UNIT/ML INSULN.PEN SC ×2 (08:01→11:18)
[2024-06-03] MEDS: Insulin Glargine-YFGN 100 UNIT/ML Pen 40 UNIT SC (08:02)
[2024-06-03] MEDS: Potassium Chloride Oral Tablet 20 MEQ 40 MEQ PO (08:04)
[2024-06-03] MEDS: Magnesium Chloride 64 MG Delay Rel.Tablet 128 MG PO (08:05)
[2024-06-03] MEDS: Na Biphos/Potassium Phosphate PACKET 1 PACKET PO (08:05)
[2024-06-03] MEDS: DULoxetine Hcl 60 MG Capsule PO (08:05)
[2024-06-03] MEDS: Midodrine HCl 5 MG Tablet 10 MG PO ×2 (08:05→11:21)
[2024-06-03] MEDS: rifAXIMin 550 MG Tablet PO (08:06)
[2024-06-03] MEDS: Potassium Phosphate 40 MM in 0.9% Normal Saline (500mL Bag) 500 ML 62.5 MM IV (08:18)
[2024-06-03 08:19] VITALS: O2SAT 97
[2024-06-03] MEDS: Potassium Chloride 10mEq/100mL 10 MEQ/100 ML IV.SOLN. 100 MEQ IV BOLUS ×4 (08:19→11:38)
[2024-06-03] MEDS: 0.9% Normal Saline (1000mL) 1,000 ML 50 ML IV (08:30)
[2024-06-03 08:32] VITALS: BP 104/56; PULSE 79; RESP 20; TEMP 36.8; O2SAT 100
[2024-06-03 11:30] LABS: Bedside Glucose 333 mg/dL (74-106)
== END 2024-06-03 12:38 | disposition home or self-care (01) | DRG 638 ==
LOC: ED 22:05 → ICU 22:19
PROVIDERS: Physician Assistant; Admitting Provider Internal Medicine; Emergency Provider Emergency Medicine; PCP Internal Medicine; Referring Provider Emergency Medicine; Visit Provider Internal Medicine
DX: E13.10 Other specified diabetes mellitus with ketoacidosis without coma (principal); N17.9 Acute kidney failure, unspecified; E87.1 Hypo-osmolality and hyponatremia; K74.60 Unspecified cirrhosis of liver; F32.A Depression, unspecified; I10 Essential (primary) hypertension; E87.6 Hypokalemia; E78.00 Pure hypercholesterolemia, unspecified; E83.52 Hypercalcemia; Z79.4 Long term (current) use of insulin; F41.9 Anxiety disorder, unspecified; Z87.891 Personal history of nicotine dependence; Z96.41 Presence of insulin pump (external) (internal); Z86.16 Personal history of COVID-19; Z91.199 Patient's noncompliance with other medical treatment and regimen due to unspecified reason
CPT/HCPCS: 74176; 80048; 80053; 80061; 81001; 82009; 82803; 82962; 83036; 83735; 84100; 84703; 85025; 93005; 94668; 97802; 99284; 99406; A4216; J2405

== ENCOUNTER 2024-08-03 20:43 | Inpatient (IN) | payer MEDICARE, SELFPAY ==
[2024-08-03 20:44] VITALS: BP 115/87; PULSE 112; RESP 18; TEMP 36.8; O2SAT 96
--- NOTE | 2024-08-03 22:20 | EX.ED.DYSGE1 ---
HPI History of Present Illness Chief Complaint: Nausea/Vomiting Informant: patient Narrative Narrative: Patient presenting with nausea, vomiting, high blood sugars. She is a type I diabetic. She has an insulin pump that ran out of insulin a little earlier today. She states her blood sugars been running high in the 3-400s for the past 5 or 6 days and she has been vomiting for the past 3 or 4. She denies any fevers or chills. No abdominal pain or diarrhea. No hematemesis. She states she has been having trouble keeping fluids down and she states she was sitting in a bank earlier today with her boyfriend and she became lightheaded and then passed out briefly. She did not have any other prodromal symptoms such as chest discomfort, dyspnea, headache although she does have a headache now, it started later. She denies any focal neurologic symptoms. She denies having any chest pain or dyspnea now. She states she has been urinating frequently despite not being able to drink because her blood sugars been high. States she was admitted to [facility] couple weeks ago thinks she was in DKA. She is having myalgias like she was then. She also states that she just got released from a 57-day stay in an alternative living situation that she states was an alternative to going to penitentiary. [facility] Medical History Insulin pump titration Presence of insulin pump Vitamin D deficiency Diabetes 1.5, managed as type 1 HTN (hypertension) Diabetes Uncontrolled depression Chronic alcohol abuse Lumbar compression fracture Insufficiency fracture Lumbar spondylolysis Impingement of right shoulder Herniated nucleus pulposus, L5-S1 Facet syndrome, lumbar Compression fracture of L1 lumbar vertebra History of cirrhosis of liver History of diabetes mellitus Hepatomegaly Peripheral neuropathy Diabetes type 2, controlled Anemia Elevated bilirubin Bleeding tendency Post-menopausal Current use of insulin Irritable bowel Back pain due to injury High cholesterol History of stress test Alcohol abuse Anxiety Diabetes GERD (gastroesophageal reflux disease) Cirrhosis Malnutrition Closed head injury SBP (spontaneous bacterial peritonitis) Hypertension Alcoholic cirrhosis of liver with ascites COVID-19 H. pylori infection Post-menopausal Pancreatitis Asthma Smoker Migraines Chronic diarrhea Recurrent acute pancreatitis Fatty liver Gastritis and duodenitis Breast implant status Anxiety History of alcohol abuse Transaminitis Nicotine abuse Alcoholism HLD (hyperlipidemia) Home Medications ?Medication ?Instructions ?Recorded ?Last Taken ?Type duloxetine 60 mg capsule,delayed 60 mg PO DAILY depression 12/10/21 12/03/23 History release ondansetron 4 mg disintegrating 4 mg PO Q8H PRN nausea and 02/09/22 12/03/23 Rx tablet vomiting #14 tabs rifaximin 550 mg tablet (Xifaxan) 550 mg PO BID see doctor #60 tabs 02/20/22 12/03/23 Rx midodrine 5 mg tablet 10 mg PO TID blood pressure 03/10/22 12/03/23 History lancets #100 ea 05/02/22 Unknown Rx needle (disp) #500 ea 05/02/22 Unknown Rx lactulose 10 gram/15 mL oral 30 ml PO TID cirrhosis 08/02/22 12/03/23 History solution furosemide 20 mg tablet (Lasix) 40 mg PO DAILY diuretic 08/15/22 12/03/23 History blood sugar diagnostic (OneTouch #100 ea 10/07/22 Unknown Rx Ultra Test strips) blood-glucose meter (OneTouch #1 ea 10/07/22 Unknown Rx Ultra2 Meter) Omnipod 5 G6 Intro Kit (Gen 5) #1 ea 11/16/22 Unknown Rx subcutaneous cartridge with controller (insulin pump cart,auto,BT-cntr) estradiol 0.01% (0.1 mg/gram) 1 g vaginal 2XW yeast 11/07/23 Unknown History vaginal cream blood-glucose transmitter (Dexcom #1 ea 01/12/24 Unknown Rx G6 Transmitter device) alprazolam 0.25 mg tablet (Xanax) 0.25 mg PO BID PRN PRN anxiety 03/15/24 Unknown History amitriptyline 10 mg tablet 10 mg PO QDAY see doctor 03/15/24 Unknown History gabapentin 300 mg capsule 300 mg PO TID see doctor 03/15/24 Unknown History trazodone 50 mg tablet 25 mg PO QDAY sleep 03/15/24 Unknown History Dexcom G6 Sensor (blood-glucose #3 ea 04/02/24 Unknown Rx sensor) blood-glucose transmitter (Dexcom #1 ea 04/02/24 Unknown Rx G6 Transmitter device) insulin aspart U-100 100 unit/mL 100 unit continuous subcutaneous 04/02/24 Unknown Rx subcutaneous solution (Novolog infusion .continuous pump #90 mL U-100 Insulin aspart) insulin pump cart,automated,BT #15 ea 11/04/24 Unknown Rx insulin lispro 100 unit/mL 80 unit (0.8 mL) subcut DAILY #70 04/17/24 Unknown Rx subcutaneous solution (Humalog mL U-100 Insulin) atorvastatin 80 mg tablet 80 mg PO QHS #90 tabs 06/03/24 Unknown Rx potassium chloride 20 mEq 40 meq (2 x 20 mEq) PO DAILY #30 06/03/24 Unknown Rx tablet,extended release(part/cryst) tabs potassium, sodium phosphates 280 1 packet PO BID #60 ea 06/03/24 Unknown Rx mg-160 mg-250 mg oral powder packet Allergy/AdvReac Type Severity Reaction Status Date / Time azithromycin (From Zithromax) AdvReac Diarrhea Verified 08/03/24 20:44 codeine AdvReac Nausea Verified 08/03/24 20:44 promethazine (From Phenergan) AdvReac Vomiting Verified 08/03/24 20:44 Family History Father Cancer Lung CA with tobacco use history. Heart disease Mother Cancer Hx breast CA. Diabetes Hypertension Other Alcoholic cirrhosis of liver with ascites Breast cancer High cholesterol Liver disease Osteoporosis Skin cancer Surgical History Previous back surgery S/P tonsillectomy and adenoidectomy Previous section H/O: knee surgery H/O breast augmentation Social History housing: other details: Lives at home, her 15, 16 year old children live with her. 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 substance use type: does not use what type of physical activity do you participate in: none ROS ROS ED Constitutional Constitutional ED: Reports fatigue; Denies chills or fever(s) Eyes Eyes: Denies change in vision or diplopia ENT ENT ED: Denies ear pain, rhinorrhea or sore throat Cardiovascular Cardiovascular: Reports lightheadedness and syncope; Denies chest pain or palpitations Respiratory/Chest Respiratory/Chest: Denies cough or dyspnea Gastrointestinal Gastrointestinal: Reports nausea and vomiting; Denies abdominal pain or diarrhea Genitourinary Genitourinary ED: Reports urinary frequency and other Details: Vaginal discomfort, raw, burning when she urinates, and discharge that she states is a yeast infection; started applying [id number] cream ; Denies hematuria Musculoskeletal Musculoskeletal: Denies back pain or neck pain Integumentary Denies abscess or rash Neurologic Neurologic: Reports headache(s); Denies paresthesias or weakness Psychiatric Psychiatric: Denies suicidal thoughts EXAM Physical Exam Const Vital Signs: 08/03/24 20:44 08/03/24 22:44 08/04/24 00:00 Temperature 98.3 F Temperature Source Oral Pulse Rate 112 H 110 H 106 H Respiratory Rate 18 18 15 Blood Pressure 115/87 H 128/74 H 139/75 H Blood Pressure Mean 96 92 96 Pulse Ox 96 98 99 Oxygen Delivery Method Room Air Room Air Room Air Positive well nourished and well developed Constitutional Narrative: Well-appearing in no distress General Appearance ED: well developed and NAD HEENT Reports dry mucous membranes normocephalic and atraumatic Mouth ED: Yes dry mucous membranes Mouth: dry mucous membranes Eyes PERRL and EOMs intact bilaterally Neck full ROM and supple Resp normal respiratory effort and clear to auscultation bilaterally Cardio regular rate, regular rhythm and no murmurs Rate: tachycardic GI non-tender and non-distended Auscultation: normoactive bowel sounds Palpation: soft Back/Spine no CVA tenderness General Back: other FROM Extremity normal to inspection General Extremety ED: Negative for edema, pulses abnormal or tenderness General Extremity: Negative for edema or pulses abnormal Neuro oriented x3, CN's II-XII intact bilaterally and no sensory deficits noted Sensorium / Orientation: awake and alert Motor Exam: strength 5/5 throughout Psych mental status grossly normal Skin no rashes or lesions noted and no wounds MDM MDM MDM Narrative Medical decision making narrative: Patient treated with Zofran and IV fluids, nausea is a lot better, gave her a small dose of Toradol for her headache but it helped and she is amenable to Tylenol, stating this does not feel like a migraine. Urine is suspicious for infection, unclear if this is related to her yeast infection discharge or not but we will treat her as if this could be the cause of her DKA, with Rocephin and sent a culture. She does not appear septic so I do not think we need blood cultures. negative, urine positive for ketones and her venous pH is 7.14, with a base excess of -16 all consistent with metabolic acidosis/DKA likely. Elevated serum ketone level confirms this. However there were delays in getting comprehensive metabolic panel results, and since I did not know what her potassium was this delayed starting her on an insulin drip, as did her potassium level once it returned, at 2.7. Started bolusing with potassium. Discussed with hospitalist for ICU admission. Lab Data Attestation: I reviewed the patient's lab results. Labs: Laboratory Results - last 24 hr 08/03/24 08/03/24 22:36 23:15 WBC 16.9 H RBC 5.07 Hgb 15.2 H Hct 43.4 MCV 85.6 MCH 30.0 MCHC 35.0 RDW Std Deviation 41.1 RDW Coeff of Teressa 13.2 Plt Count 412 MPV 10.4 Immature Gran % (Auto) 0.600 Neut % (Auto) 81.5 H Lymph % (Auto) 13.9 L [place] % (Auto) 3.4 Eos % (Auto) 0.1 Baso % (Auto) 0.5 Absolute Neuts (auto) 13.7 H Absolute Lymphs (auto) 2.35 Nucleated RBC % 0 Sodium 134 Potassium 2.7 L* Chloride 88 L Carbon Dioxide 10.9 L Anion Gap 35 H BUN 13 Creatinine 1.09 Est GFR (MDRD) Non-Af 62 BUN/Creatinine Ratio 12.2 Glucose 467 H* Calcium 9.0 Total Bilirubin 0.46 AST 15 ALT 13 Alkaline Phosphatase 99 Total Protein 7.7 Albumin 4.5 Globulin 3.2 Albumin/Globulin Ratio 1.4 b-Hydroxybutyric mmol/L 10.4 Serum , Qual NEGATIVE Urine Color Yellow Urine Clarity Cloudy Urine pH 5.0 Ur Specific [place] 1.020 Urine Protein 100 H Urine Glucose (UA) 1000 H Urine Ketones 150 A* Urine Occult Blood 50 H Urine Nitrite Negative Urine Bilirubin Negative Urine Urobilinogen Normal Ur Leukocyte Esterase 500 H Urine RBC 0 SEEN Urine WBC 25-50 SEEN Ur Squamous Epith Cells 0-5 SEEN Ur Transition Epith Cell 10-25 SEEN Urine Bacteria 2+ Urine Mucus 0 SEEN Rhythm Strip Rhythm Strip: Sinus Tach Rate: 114 Ectopy: None EKG Initial EKG: Attestation: I personally reviewed and interpreted this EKG as follows: Interpretation: No Acute Injury Pattern, Sinus Tachycardia and Non-Specific ST Changes Management Discussion w/another healthcare provider: Hospitalist Critical Care Time Critical Care Time: Yes Critical care time (excluding procedures): 30-74 minutes (33 min), Including time spent:, Discussing w/Patient &/or Family/Police Dispatcher, Discussing w/Consultants, Arranging Admission or Transfer and Performing Direct Patient Care at Bedside Discharge Plan Dx/Rx/DC Orders Clinical Impression: DKA (diabetic ketoacidosis), UTI (urinary tract infection), Acute hypokalemia Disposition Disposition: Acute Care Hospital [facility]
[2024-08-03] MEDS: 0.9% Normal Saline (1000mL) 1,000 ML 999 ML IV (22:35)
[2024-08-03] MEDS: Ondansetron 4 MG/2 ML Vial IV (22:35)
[2024-08-03] MEDS: Ketorolac 15 MG/ML Vial IV (22:35)
[2024-08-03 22:44] VITALS: BP 128/74; PULSE 110; RESP 18; O2SAT 98
[2024-08-03 22:49] LABS: Absolute Lymphocyte Count 2.35 X10^3/uL (0.83-4.51); Absolute Neutrophil Count 13.7 X10^3/uL (2.0-7.7); Basophil# 0.09 X10^3/uL; Basophil% 0.5 % (0-1); Eosinophil# 0.01 X10^3/uL; Eosinophils% 0.1 % (0-5); Hematocrit 43.4 % (37-47); Hemoglobin 15.2 g/dL (12.0-15.0); Lymphocyte # 2.35 X10^3/ul (0.83-4.51); Lymphocyte % 13.9 % (19-41); Mean Corpuscular Volume 85.6 fL (81-99); Mean Platelet Vol. 10.4 fl (6.2-12.0); Monocyte# 0.57 X10^3/uL; Monocyte% 3.4 % (0-10); NRBC Flagged by Analyzer 0 % (0-5); Neutrophil # 13.73 X10^3/uL (2.7-7.7); Neutrophil % 81.5 % (47-70); Platelet Count 412 K/mm3 (150-450); RBC Distribution Width CV 13.2 % (11.6-14.6); RBC Distribution Width SD 41.1 fl (35.1-43.9); Red Blood Count 5.07 M/mm3 (4.2-5.4); White Blood Count 16.9 K/mm3 (4.4-11.0)
[2024-08-03 23:11] LABS: Internal QC Validated? YES +Cl - CLEAR BKGD; Pregnancy, Serum, hCG Quali. NEGATIVE Negative
[2024-08-03 23:36] LABS: Mucous, Urine 0 SEEN /hpf (<or=2+)
[2024-08-03 23:38] LABS: Color, Urine Yellow (Yellow); Glucose, Dipstick 1000 mg/dl (Normal); Leukocyte Esterase-Dipstick 500 /ul (Negative); Nitrite-Dipstick Negative (Negative); Occult Blood-Urine 50 /ul (Negative); Protein-Dipstick 100 mg/dl (Negative); Urine Bilirubin Dipstick Negative (Negative); Urine Clarity Cloudy (Clear); Urine Urobilinogen Normal (Normal)
[2024-08-03 23:45] LABS: Ketone-Dipstick 150 mg/dl (Negative); Red Blood Cells-Urine 0 SEEN /hpf (0-5); Squamous Epithelial Cells - UA 0-5 SEEN /hpf (5-10); White Blood Cells 25-50 SEEN /hpf (0-5)
[2024-08-03 23:46] LABS: Bacteria 2+ /hpf (None Seen); Transitional Epithelial - Ur 10-25 SEEN /hpf (0-5)
[2024-08-04] VITALS (29 sets, daily range): BP systolic 107–173; BP diastolic 52–120; PULSE 85–109; RESP 12–22; TEMP 36.6–37.6; O2SAT 93–100; BMI 18.8
[2024-08-04 00:12] LABS: BETA-HYDROXYBUTYRATE 10.4 mmol/L (0.0-0.3)
[2024-08-04] MEDS: Acetaminophen 500 MG Tablet 1000 MG PO (00:26)
[2024-08-04 00:27] LABS: ALB/GLOB Ratio 1.4 RATIO (0.9-2.4); AST(SGOT) 15 U/L (<=31); Alanine Aminotransfer ALT/SGPT 13 U/L (<=34); Albumin, Serum 4.5 g/dL (3.5-5.0); Alkaline Phosphatase 99 U/L (35-104); Anion Gap 35 (5-15); BUN 13 mg/dL (4-19); BUN/Creat Ratio 12.2 RATIO (10-20); Carbon Dioxide 10.9 mmol/L (21.0-32.0); Chloride 88 mmol/L (98-108); Creatinine, Serum 1.09 mg/dL (0.70-1.20); EST Glomerular Filtration Rate 62 (>60); Globulin 3.2 g/dL (2.2-4.2); Glucose 467 mg/dL (70-99); Potassium 2.7 mmol/L (3.3-5.1); Protein, Total 7.7 g/dL (5.9-8.4); Sodium Level 134 mmol/L (133-145); Total Bilirubin 0.46 mg/dL (0.00-1.30)
[2024-08-04] MEDS: Ceftriaxone 2 GM in 0.9% Normal Saline (50mL MB+) 50 ML IV (00:28)
--- NOTE | 2024-08-04 00:54 | PCM.HP.STD ---
HPI - General General Date of Admission: 08/04/24 Date of Service: 08/04/24 Chief Complaint: N/V, elevated BS, ran out of insulin. HPI Narrative The patient is a 48 y/o F w/ PMHx: CKD stage II per GFR trending, Anxiety and Depression, Asthma, HTN, HLD, Alcoholic cirrhosis, Former EtOH abuse (sober since 12/2023), Chronic anemia/AOCD, Chronic pancreatitis with chronic diarrhea, IDDM on insulin pump with peripheral neuropathy, GERD w/ Hx duodenitits, Nicotine vaping use, Chronic migraines, Hx C. difficile colitis, recent discharge 06/03/24 following evaluation and treatment of DKA with intractable nausea and emesis, pseudohyponatremia, hypercalcemia with notable dehydration who now re-presents to the [facility] ED on 08/04/24 with history of onset of nausea, emesis and elevated blood sugars unfortunately her insulin pump running out earlier in the day with blood sugars running at least in the 300-400 with past 5 to 6 days with no fevers or chills nor a recent abdominal pain however she does report difficulty with appropriately hydrating with lightheadedness and dizziness with potential syncopal event with mild headache with polyuria and polydipsia prompting eventual ED evaluation to be cautious. She does report that she was recently [place] a couple weeks ago also for DKA. She notes that she was released from alternative living approximate 57 days previous as an alternative to go to care home. Workup in the ED included T98.3, heart rate 112, BP 115/87, respiratory rate 18, 96% on room air, CBC with WBC 16.9, hemoglobin 15.2, MCV 85.6, platelet 412 with left shift, CMP with sodium 134, potassium 2.7, chloride 88, 10.9, anion gap 35, BUN/creat 13/1.09, GFR 62, glucose 467 otherwise hepatic profile unremarkable, hydroxybutyrate 10.4, serum qualitative negative, urinalysis with specific cavity 1.020, protein 100, glucose 1000 ketones 150, occult blood 50, negative nitrite, leukocyte esterase of 500 with urine WBCs 25-50 with 2+ urine bacteria, urine culture pending per ED. In the ED patient ministered 1 L normal saline, Zofran 4 mg IV x 1, Toradol 50 mg IV x 1, Rocephin 2 g IV x 1, Tylenol 1000 mg p.o. x 1, potassium 10 mill equivalent x 1, Reglan 5 mg IV x 1. [facility] Medical History Insulin pump titration Presence of insulin pump Vitamin D deficiency Diabetes 1.5, managed as type 1 HTN (hypertension) Diabetes Uncontrolled depression Chronic alcohol abuse Lumbar compression fracture Insufficiency fracture Lumbar spondylolysis Impingement of right shoulder Herniated nucleus pulposus, L5-S1 Facet syndrome, lumbar Compression fracture of L1 lumbar vertebra History of cirrhosis of liver History of diabetes mellitus Hepatomegaly Peripheral neuropathy Diabetes type 2, controlled Anemia Elevated bilirubin Bleeding tendency Post-menopausal Current use of insulin Irritable bowel Back pain due to injury High cholesterol History of stress test Alcohol abuse Anxiety Diabetes GERD (gastroesophageal reflux disease) Cirrhosis Malnutrition Closed head injury SBP (spontaneous bacterial peritonitis) Hypertension Alcoholic cirrhosis of liver with ascites COVID-19 H. pylori infection Post-menopausal Pancreatitis Asthma Smoker Migraines Chronic diarrhea Recurrent acute pancreatitis Fatty liver Gastritis and duodenitis Breast implant status Anxiety History of alcohol abuse Transaminitis Nicotine abuse Alcoholism HLD (hyperlipidemia) Home Medications ?Medication ?Instructions ?Recorded ?Last Taken ?Type duloxetine 60 mg capsule,delayed 60 mg PO DAILY depression 12/10/21 12/03/23 History release ondansetron 4 mg disintegrating 4 mg PO Q8H PRN nausea and 02/09/22 12/03/23 Rx tablet vomiting #14 tabs rifaximin 550 mg tablet (Xifaxan) 550 mg PO BID see doctor #60 tabs 02/20/22 12/03/23 Rx midodrine 5 mg tablet 10 mg PO TID blood pressure 03/10/22 12/03/23 History lancets #100 ea 05/02/22 Unknown Rx needle (disp) #500 ea 05/02/22 Unknown Rx lactulose 10 gram/15 mL oral 30 ml PO TID cirrhosis 08/02/22 12/03/23 History solution furosemide 20 mg tablet (Lasix) 40 mg PO DAILY diuretic 08/15/22 12/03/23 History blood sugar diagnostic (OneTouch #100 ea 10/07/22 Unknown Rx Ultra Test strips) blood-glucose meter (OneTouch #1 ea 10/07/22 Unknown Rx Ultra2 Meter) Omnipod 5 G6 Intro Kit (Gen 5) #1 ea 11/16/22 Unknown Rx subcutaneous cartridge with controller (insulin pump cart,auto,BT-cntr) estradiol 0.01% (0.1 mg/gram) 1 g vaginal 2XW yeast 11/07/23 Unknown History vaginal cream blood-glucose transmitter (Dexcom #1 ea 01/12/24 Unknown Rx G6 Transmitter device) alprazolam 0.25 mg tablet (Xanax) 0.25 mg PO BID PRN PRN anxiety 03/15/24 Unknown History amitriptyline 10 mg tablet 10 mg PO QDAY see doctor 03/15/24 Unknown History gabapentin 300 mg capsule 300 mg PO TID see doctor 03/15/24 Unknown History trazodone 50 mg tablet 25 mg PO QDAY sleep 03/15/24 Unknown History Dexcom G6 Sensor (blood-glucose #3 ea 04/02/24 Unknown Rx sensor) blood-glucose transmitter (Dexcom #1 ea 04/02/24 Unknown Rx G6 Transmitter device) insulin aspart U-100 100 unit/mL 100 unit continuous subcutaneous 04/02/24 Unknown Rx subcutaneous solution (Novolog infusion .continuous pump #90 mL U-100 Insulin aspart) insulin pump cart,automated,BT #15 ea 04/02/24 Unknown Rx insulin lispro 100 unit/mL 80 unit (0.8 mL) subcut DAILY #70 04/17/24 Unknown Rx subcutaneous solution (Humalog mL U-100 Insulin) atorvastatin 80 mg tablet 80 mg PO QHS #90 tabs 06/03/24 Unknown Rx potassium chloride 20 mEq 40 meq (2 x 20 mEq) PO DAILY #30 06/03/24 Unknown Rx tablet,extended release(part/cryst) tabs potassium, sodium phosphates 280 1 packet PO BID #60 ea 06/03/24 Unknown Rx mg-160 mg-250 mg oral powder packet Allergy/AdvReac Type Severity Reaction Status Date / Time azithromycin (From Zithromax) AdvReac Diarrhea Verified 08/03/24 20:44 codeine AdvReac Nausea Verified 08/03/24 20:44 promethazine (From Phenergan) AdvReac Vomiting Verified 08/03/24 20:44 Family History Father Cancer Lung CA with tobacco use history. Heart disease Mother Cancer Hx breast CA. Diabetes Hypertension Other Alcoholic cirrhosis of liver with ascites Breast cancer High cholesterol Liver disease Osteoporosis Skin cancer Surgical History Previous back surgery S/P tonsillectomy and adenoidectomy Previous section H/O: knee surgery H/O breast augmentation Social History (Updated 08/04/24 @ 02:[address] Ariane Holloway MD) housing: other details: Recent rehab stay. Prior lived w/ 15, 16 year old children. 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 HEENT: + Lightheadedness, dizziness. Eyes: No visual loss, blurred vision, double vision or yellow sclerae. Ears, Nose, Throat: No hearing loss, sneezing, congestion, runny nose or sore throat. SKIN: No rash or itching, lesions, wounds. CARDIOVASCULAR: + Lightheadedness, dizziness, syncopal event. No chest pain, chest pressure or chest discomfort, palpitations, edema, orthopnea. RESPIRATORY: No shortness of breath, cough or sputum, wheezing, hemoptysis. GASTROINTESTINAL: + Anorexia, nausea, emesis, generalized abdominal discomfort. No diarrhea, abdominal pain, melena, BRBPR. GENITOURINARY: + Increased urinary frequency, dysuria. No urgency or retention. NEUROLOGICAL: + Lightheadedness, dizziness, syncopal event. No paralysis, ataxia, numbness or tingling in the extremities, focal weakness, change in bowel or bladder control, seizure. MUSCULOSKELETAL: + muscle, back pain, joint pain or stiffness. HEMATOLOGIC: + Chronic anemia, easy bleeding/bruising. LYMPHATICS: No enlarged nodes. No history of splenectomy. PSYCHIATRIC: + History of anxiety and depression. ENDOCRINOLOGIC: No reports of sweating, cold or heat intolerance. + polyuria or polydipsia. ALLERGIES: + History of asthma with allergic rhinitis. Vital Signs Vital Signs Vital Signs: 08/03/24 20:44 08/03/24 22:44 08/04/24 00:00 Temperature 98.3 F Temperature Source Oral Pulse Rate 112 H 110 H 106 H Respiratory Rate 18 18 15 Blood Pressure 115/87 H 128/74 H 139/75 H Blood Pressure Mean 96 92 96 Pulse Ox 96 98 99 Oxygen Delivery Method Room Air Room Air Room Air Physical Exam Narrative Physical Examination: General: Awake, alert, oriented x 3 and cooperative, seated upright in the ED bed, more well-appearing than her labs, fatigued appearing. Skin: Normal color, normal turgor, no icterus, no cyanosis. HEENT: AT/NC, EOMI, PERRLA, dry MM, no carotid bruits or JVD noted. Lungs: CTA bilaterally, moderate effort, mild decrease BL bases, no rales, ronchi or wheezing. Heart: Tachycardic with regular rhythm; no gallop, rub audible. Abdomen: Soft, mild generalized discomfort with palpation but no rebound or guarding, ND, hyperactive BS, positive HM. Extremities: No cyanosis, clubbing, or edema. Neurological: Patient awake, alert, oriented as noted, cognitive function intact; pupils equally reactive to light and accommodation, cranial nerves gross normal, moving all 4 extremities, no focal deficits, strength moderately to severely globally decreased Psychiatric: Affect appears flat, fatigued, no acute evidence of depressive or anxiety feelings but does have underlying history. Results Lab / Micro Data 08/03/24 22:36 08/03/24 22:36 Labs: Laboratory Results - last 24 hr 08/03/24 22:36: WBC 16.9 H, RBC 5.07, Hgb 15.2 H, Hct 43.4, MCV 85.6, MCH 30.0, MCHC 35.0, RDW Std Deviation 41.1, RDW Coeff of Teressa 13.2, Plt Count 412, MPV 10.4, Immature Gran % (Auto) 0.600, Neut % (Auto) 81.5 H, Lymph % (Auto) 13.9 L, [place] % (Auto) 3.4, Eos % (Auto) 0.1, Baso % (Auto) 0.5, Absolute Neuts (auto) 13.7 H, Absolute Lymphs (auto) 2.35, Nucleated RBC % 0, Sodium 134, Potassium 2.7 L*, Chloride 88 L, Carbon Dioxide 10.9 L, Anion Gap 35 H, BUN 13, Creatinine 1.09, Est GFR (MDRD) Non-Af 62, BUN/Creatinine Ratio 12.2, Glucose 467 H*, Calcium 9.0, Total Bilirubin 0.46, AST 15, ALT 13, Alkaline Phosphatase 99, Total Protein 7.7, Albumin 4.5, Globulin 3.2, Albumin/Globulin Ratio 1.4, b-Hydroxybutyric mmol/L 10.4, Serum , Qual NEGATIVE 08/03/24 23:15: Urine Color Yellow, Urine Clarity Cloudy, Urine pH 5.0, Ur Specific [place] 1.020, Urine Protein 100 H, Urine Glucose (UA) 1000 H, Urine Ketones 150 A*, Urine Occult Blood 50 H, Urine Nitrite Negative, Urine Bilirubin Negative, Urine Urobilinogen Normal, Ur Leukocyte Esterase 500 H, Urine RBC 0 SEEN, Urine WBC 25-50 SEEN, Ur Squamous Epith Cells 0-5 SEEN, Ur Transition Epith Cell 10-25 SEEN, Urine Bacteria 2+, Urine Mucus 0 SEEN Rhythm Strip Rhythm Strip: Sinus Tach Rate: 114 Ectopy: None Assessment & Plan Assessment/Plan (1) UTI (urinary tract infection): (2) Acute hypokalemia: (3) DKA (diabetic ketoacidosis): PLAN: Plan The patient is a 48 y/o F w/ PMHx: CKD stage II per GFR trending, Anxiety and Depression, Asthma, HTN, HLD, Alcoholic cirrhosis, Former EtOH abuse (sober since 12/2023), Chronic anemia/AOCD, Chronic pancreatitis with chronic diarrhea, IDDM on insulin pump with peripheral neuropathy, GERD w/ Hx duodenitits, Nicotine vaping use, Chronic migraines, Hx C. difficile colitis, recent discharge 06/03/24 following evaluation and treatment of DKA with intractable nausea and emesis, pseudohyponatremia, hypercalcemia with notable dehydration who now re-presents to the [facility] ED on 08/04/24 with history of onset of nausea, emesis and elevated blood sugars unfortunately her insulin pump running out earlier in the day with blood sugars running at least in the 300-400 with past 5 to 6 days with no fevers or chills nor a recent abdominal pain however she does report difficulty with appropriately hydrating with lightheadedness and dizziness with potential syncopal event with mild headache with polyuria and polydipsia prompting eventual ED evaluation to be cautious. #1. Acute DKA with underlying IDDM on insulin pump with with chronic peripheral neuropathy, unfortunately chronic issues with noncompliance, reports running out of insulin with serial frequent admissions: Will admit to the ICU, continue on insulin drip, check serial K+, glucose w/ IVF changes pending these levels, serial chemistry, obtain mag, phos daily w/ repletion as needed, transition to home SC regimen when gap closed w/ overlap on drip, nutrition consultation. Encouraged diet and insulin regimen compliance. HgBA1c requested. 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 #2. Hypokalemia: Admission K+ 2.7, magnesium level requested, supplementation given, repeat level in AM. #3. Acute Complicated Urinary Tract Infection with nausea, emesis, urinary frequency: UA upon ED evaluation remarkable, pending UCx, continue IVFs, monitor I/Os, continue IV Rocephin w/ transition as able pending sensitivities and speciation. Bld cx x 2 obtained in the ED. #4. Alcoholic cirrhosis with ongoing alcohol abuse: Encourage sobriety, encourage follow-up with gastroenterology as previously arranged, will continue home lactulose, midodrine, Xifaxan regimen, judiciously hydrating given presentation as noted. Temporarily holding Lasix given need for hydration, add back once appropriate. #5. Chronic Kidney Disease Stage II per GFR trending: Admission BUN/Cr 13/1.09, GFR 62, baseline renal function primarily 0.9-1.2, repeat BMP in AM. #6. Anxiety and depression: We will continue patient home duloxetine, trazodone, amitriptyline and low-dose Xanax with hold parameters as needed. Given history of alcohol abuse certainly would be best to consider alternate agent to benzodiazepine. #7. Chronic anemia/AOCD: Admission hemoglobin 15.2, MCV 85.6 suspect elevated with dehydration with hemoconcentration, baseline primarily recently 11 range, most recent hemoglobin previous 06/03/2024 hemoglobin 11.6, will continue to trend #8. Hypertension: Given presentation aggressively hydrating, temporally hold Lasix, resume once clinically appropriate. #9. Hyperlipidemia: We will continue patient on statin therapy. #10. Tobacco Abuse: Encouraged cessation, inpatient consultation per RT, NR if desired. #11. Chronic asthma: Not on chronic inhaler, PRN albuterol, HOB, IS parameters. #12. Chronic pancreatitis with chronic diarrhea: Complicates presentation given need for lactulose and underlying cirrhotic disease, monitor for excessive GI losses. #13. GERD with history of duodenitis: Will maintain on PPI. #14. Former EtOH Abuse: Sober since 03/2024, encourage continued sobriety. #15. DVT prophylaxis: Lovenox. #16. CODE status: Full Code status. Charges/Coding Visit Charges Inpatient E&M: 81675 Init Hosp L3
[2024-08-04] MEDS: Metoclopramide 10 MG/2 ML Vial 5 MG IV (01:19)
[2024-08-04] MEDS: 0.9% Normal Saline (1000mL) 1,000 ML 999 ML IV ×2 (01:19→04:01)
[2024-08-04] MEDS: Potassium Chloride 10mEq/100mL 10 MEQ/100 ML IV.SOLN. 100 MEQ IV BOLUS ×9 (01:20→23:20)
[2024-08-04 01:26] LABS: Bedside Glucose 466 mg/dL (74-106)
[2024-08-04 02:37] LABS: Bedside Glucose 404 mg/dL (74-106)
[2024-08-04 02:47] LABS: Magnesium 1.9 mg/dL (1.5-2.2); Phosphorus 4.2 mg/dL (2.7-4.5)
[2024-08-04 03:19] LABS: Bedside Glucose 371 mg/dL (74-106)
--- NOTE | 2024-08-04 03:30 | PCMCONS.TICU ---
HPI Consult Data Date of Consult: 08/04/24 HPI Narrative Reason for Consultation: DKA, UTI HPI Narrative: DAVID TATE, is a 48yo with DM and reported cirrhosis of the liver who presents with confusion and a chief complaint of cramping in her legs. She states that she has been in a [facility] facility ([facility]) that has not been managing her diet or her insulin regimen well. However, she also states that she has an insulin pump but that the pump is not implanted. She is therefore unclear on her daily regimen of insulin and insulin requirements and instead states that it is based on a calorie count (as opposed to fingerstick). Patient has difficulty with recall and at times repeats herself in a manner suggesting she may not be a reliable provider of HPI data. EMR is thus used as collateral source. Has received about 2L IVF resuscitation, no IV insulin and has not been started on insulin drip for what seems to be labs consistent with DKA in ED. Arrives in ICU with 10mEq KCl running via PIV, but no continuous orders for additional K. Labs just drawn and are pending. VBG not drawn. No HCO3 given. Patient reports emesis x1 in ED. [facility] Medical History Insulin pump titration Presence of insulin pump Vitamin D deficiency Diabetes 1.5, managed as type 1 HTN (hypertension) Diabetes Uncontrolled depression Chronic alcohol abuse Lumbar compression fracture Insufficiency fracture Lumbar spondylolysis Impingement of right shoulder Herniated nucleus pulposus, L5-S1 Facet syndrome, lumbar Compression fracture of L1 lumbar vertebra History of cirrhosis of liver History of diabetes mellitus Hepatomegaly Peripheral neuropathy Diabetes type 2, controlled Anemia Elevated bilirubin Bleeding tendency Post-menopausal Current use of insulin Irritable bowel Back pain due to injury High cholesterol History of stress test Alcohol abuse Anxiety Diabetes GERD (gastroesophageal reflux disease) Cirrhosis Malnutrition Closed head injury SBP (spontaneous bacterial peritonitis) Hypertension Alcoholic cirrhosis of liver with ascites COVID-19 H. pylori infection Post-menopausal Pancreatitis Asthma Smoker Migraines Chronic diarrhea Recurrent acute pancreatitis Fatty liver Gastritis and duodenitis Breast implant status Anxiety History of alcohol abuse Transaminitis Nicotine abuse Alcoholism HLD (hyperlipidemia) Home Medications ?Medication ?Instructions ?Recorded ?Last Taken ?Type duloxetine 60 mg capsule,delayed 60 mg PO DAILY depression 12/10/21 12/03/23 History release ondansetron 4 mg disintegrating 4 mg PO Q8H PRN nausea and 02/09/22 12/03/23 Rx tablet vomiting #14 tabs rifaximin 550 mg tablet (Xifaxan) 550 mg PO BID see doctor #60 tabs 02/20/22 12/03/23 Rx midodrine 5 mg tablet 10 mg PO TID blood pressure 03/10/22 12/03/23 History lancets #100 ea 05/02/22 Unknown Rx needle (disp) #500 ea 05/02/22 Unknown Rx lactulose 10 gram/15 mL oral 30 ml PO TID cirrhosis 08/02/22 12/03/23 History solution furosemide 20 mg tablet (Lasix) 40 mg PO DAILY diuretic 08/15/22 12/03/23 History blood sugar diagnostic (OneTouch #100 ea 10/07/22 Unknown Rx Ultra Test strips) blood-glucose meter (OneTouch #1 ea 10/07/22 Unknown Rx Ultra2 Meter) Omnipod 5 G6 Intro Kit (Gen 5) #1 ea 11/16/22 Unknown Rx subcutaneous cartridge with controller (insulin pump cart,auto,BT-cntr) estradiol 0.01% (0.1 mg/gram) 1 g vaginal 2XW yeast 11/07/23 Unknown History vaginal cream blood-glucose transmitter (Dexcom #1 ea 01/12/24 Unknown Rx G6 Transmitter device) alprazolam 0.25 mg tablet (Xanax) 0.25 mg PO BID PRN PRN anxiety 03/15/24 Unknown History amitriptyline 10 mg tablet 10 mg PO QDAY see doctor 03/15/24 Unknown History gabapentin 300 mg capsule 300 mg PO TID see doctor 03/15/24 Unknown History trazodone 50 mg tablet 25 mg PO QDAY sleep 03/15/24 Unknown History Dexcom G6 Sensor (blood-glucose #3 ea 04/02/24 Unknown Rx sensor) blood-glucose transmitter (Dexcom #1 ea 04/02/24 Unknown Rx G6 Transmitter device) insulin aspart U-100 100 unit/mL 100 unit continuous subcutaneous 04/02/24 Unknown Rx subcutaneous solution (Novolog infusion .continuous pump #90 mL U-100 Insulin aspart) insulin pump cart,automated,BT #15 ea 04/02/24 Unknown Rx insulin lispro 100 unit/mL 80 unit (0.8 mL) subcut DAILY #70 04/17/24 Unknown Rx subcutaneous solution (Humalog mL U-100 Insulin) atorvastatin 80 mg tablet 80 mg PO QHS #90 tabs 06/03/24 Unknown Rx potassium chloride 20 mEq 40 meq (2 x 20 mEq) PO DAILY #30 06/03/24 Unknown Rx tablet,extended release(part/cryst) tabs potassium, sodium phosphates 280 1 packet PO BID #60 ea 06/03/24 Unknown Rx mg-160 mg-250 mg oral powder packet Allergy/AdvReac Type Severity Reaction Status Date / Time azithromycin (From Zithromax) AdvReac Diarrhea Verified 08/03/24 20:44 codeine AdvReac Nausea Verified 08/03/24 20:44 promethazine (From Phenergan) AdvReac Vomiting Verified 08/03/24 20:44 Family History Father Cancer Lung CA with tobacco use history. Heart disease Mother Cancer Hx breast CA. Diabetes Hypertension Other Alcoholic cirrhosis of liver with ascites Breast cancer High cholesterol Liver disease Osteoporosis Skin cancer Surgical History Previous back surgery S/P tonsillectomy and adenoidectomy Previous section H/O: knee surgery H/O breast augmentation Social History housing: other details: Recent rehab stay. Prior lived w/ 15, 16 year old children. 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 Status: Former smoker Electronic Cigarette Use: with nicotine alcohol intake: former details: Sober since 12/2023 substance use type: does not use what type of physical activity do you participate in: none ROS ROS Narrative 10 or more systems reviewed with patient who reports only nausea/vomiting/thirst/cramping of the legs/confusion/tiredness/yeast infection symptoms Objective Data Objective Data Vital Signs: Vital Signs Last response Temperature 36.6 C 08/04/24 02:05 Temperature Source Oral 08/04/24 02:00 Pulse Rate 106 H 08/04/24 02:05 Respiratory Rate 15 08/04/24 02:05 Blood Pressure 128/74 H 08/04/24 02:05 Blood Pressure Mean 92 08/04/24 02:05 Pulse Ox 99 08/04/24 02:05 Oxygen Delivery Method Room Air 08/04/24 02:00 I&O: I&O Last 24 Hours 08/03/24 08/03/24 08/04/24 11:59 23:59 11:59 Intake Total 1100 / 1100 1150 / 1150 Balance 1100 / 1100 1150 / 1150 I&O: Total Stay 08/03/24 20:43 thru 08/04/24 02:46 Intake Total 2250 Balance 2250 Current Meds Ordered / Administered: Current meds ordered / Administered Generic Name Dose Route Start Last Admin Trade Name Freq PRN Reason Stop Dose Admin Acetaminophen 650 mg 08/04/24 02:45 Acetaminophen 325 Mg Tablet PO Q4H PRN PRN Fever, pain 1-03/08 Al Hydroxide/Mg Hydroxide 30 ml 08/04/24 02:45 Mag Hydrox/Al Hydrox/Simeth 30 Ml Udc PO Q6H PRN PRN Gastric Burning Albuterol Sulfate 2.5 mg 08/04/24 02:45 Albuterol 2.5 Mg/3 Ml Vial.Neb. INHALATION Q2H PRN PRN Dyspnea, wheezing Alprazolam 0.25 mg 08/04/24 02:45 Alprazolam 0.25 Mg Tablet PO BID PRN PRN anxiety Amitriptyline HCl 10 mg 08/04/24 10:00 Amitriptyline 10 Mg Tablet PO DAILY [facility] Atorvastatin Calcium 80 mg 08/04/24 22:00 Atorvastatin Calcium 80 Mg Tablet PO QHS [facility] Duloxetine HCl 60 mg 08/04/24 10:00 Duloxetine Hcl 60 Mg Capsule PO DAILY [facility] Enoxaparin Sodium 40 mg 08/04/24 10:00 Enoxaparin 40 Mg/0.4 Ml Syringe SC DAILY [facility] Gabapentin 300 mg 08/04/24 06:00 Gabapentin 300 Mg Capsule PO TID [facility] Guaifenesin 10 ml 08/04/24 02:45 Guaifenesin 10 Ml Udc (200mg/10ml) PO Q4H PRN PRN COUGH Hydralazine HCl 10 mg 08/04/24 02:45 Hydralazine 20 Mg/Ml Vial IV Q4H PRN PRN SBP > 160 Protocol Sodium Chloride 1,000 mls @ 150 mls/hr 08/04/24 02:45 IV 08/04/24 16:04 .Q6H40M [facility] Protocol Sodium Chloride 1,000 mls @ 999 mls/hr 08/04/24 02:45 IV 08/04/24 03:45 .Q1H1M ONE Protocol Dextrose 250 mls @ 999 mls/hr 08/04/24 02:45 Dextrose 10%-Water IV .Q16M PRN Hypoglycemic Protocol Protocol Insulin Human Lispro 100 unit/ 100 mls @ 5.31 mls/hr 08/04/24 02:45 Sodium Chloride CONT INF .[id number] [facility] Protocol 0.1 UNITS/KG/HR Ceftriaxone Sodium 1 gm in 50 mls @ 100 mls/hr 08/04/24 22:00 Rocephin IV Q24H [facility] Pantoprazole Sodium 40 mg/ 110 mls @ 330 mls/hr 08/04/24 02:45 Sodium Chloride IV Q12 ABE Sodium Chloride 100 mls @ 15 mls/hr 08/04/24 02:48 IV .Q6H40M PRN Saline Flush Sodium Chloride 100 mls @ 15 mls/hr 08/04/24 02:48 IV .Q6H40M PRN Additional IVPB Infusion Potassium Chloride 10 meq in 100 mls @ 100 mls/hr 08/04/24 03:30 IV BOLUS 08/04/24 07:29 Q1H ABE Potassium Chloride 10 meq in 100 mls @ 100 mls/hr 08/04/24 07:28 IV BOLUS 08/04/24 09:27 Q1H [facility] Influenza Virus Vaccine 45 mcg 08/04/24 10:00 Flu Vacc (6mos Up)/Pf 45 Mcg/0.5 Ml Syringe IM 08/04/24 10:01 .ONCE ONE Ketorolac Tromethamine 15 mg 08/04/24 02:45 Ketorolac 15 Mg/Ml Vial IV 08/09/24 02:45 Q6H PRN PRN Pain Score 1-10 Lactulose 20 gm 08/04/24 06:00 Lactulose 20 Gm/30 Ml Udc PO TID [facility] Melatonin 3 mg 08/04/24 02:45 Melatonin 3 Mg Tablet PO QHS PRN PRN INSOMNIA Midodrine 10 mg 08/04/24 06:00 Midodrine Hcl 5 Mg Tablet PO TID [facility] Ondansetron HCl 4 mg 08/04/24 02:45 Ondansetron 4 Mg/2 Ml Vial IV Q8H PRN PRN NAUSEA/VOMITING Potassium Chloride 40 meq 08/04/24 10:00 Potassium Chloride Oral Tablet 20 Meq PO DAILY ABE Potassium Phos/Sodium Phos 1 packet 08/04/24 10:00 Na Biphos/Potassium Phosphate Packet PO BID ABE Rifaximin 550 mg 08/04/24 10:00 Rifaximin 550 Mg Tablet PO BID ABE Senna/Docusate Sodium 2 tablet 08/04/24 02:45 Senna/Docusate Sodium 1 Tablet PO BID PRN PRN Constipation Sodium Chloride 10 - 40 ml 08/04/24 02:48 0.9% Saline Lock 10 Ml Syringe IV UD PRN SALINE FLUSH Trazodone HCl 25 mg 08/04/24 02:45 Trazodone 50 Mg Tablet PO QDAY [facility] Physical Exam Const no apparent distress Constitutional Narrative: inconsistent orientation to place and time General Appearance: cooperative and lethargic HEENT normocephalic and head/scalp atraumatic HEENT Narrative: dry membranes Throat: posterior oropharynx normal Eyes PERRL, EOMs intact bilaterally, conjunctivae normal and no scleral icterus Neck full ROM, no lymphadenopathy, supple and no JVD Lymph Lymphatic: no lymphadenopathy noted Resp normal respiratory effort and no use of accessory muscles Effort and Inspection: able to speak in complete sentences Auscultation: clear to auscultation bilaterally Cardio regular rate and regular rhythm GI normal to inspection, nondistended, normoactive bowel sounds, soft to palpation and non-tender no CVA tenderness Neuro CN's II-XII intact bilaterally, moves all extremities and no focal motor deficits Psych cooperative Mood & Affect: flat affect Lab / Micro Data Attestation: I reviewed the patient's lab results. 08/03/24 22:36 08/03/24 22:36 Labs: Laboratory Results - last 24 hr 08/03/24 22:36: WBC 16.9 H, RBC 5.07, Hgb 15.2 H, Hct 43.4, MCV 85.6, MCH 30.0, MCHC 35.0, RDW Std Deviation 41.1, RDW Coeff of Teressa 13.2, Plt Count 412, MPV 10.4, Immature Gran % (Auto) 0.600, Neut % (Auto) 81.5 H, Lymph % (Auto) 13.9 L, [place] % (Auto) 3.4, Eos % (Auto) 0.1, Baso % (Auto) 0.5, Absolute Neuts (auto) 13.7 H, Absolute Lymphs (auto) 2.35, Nucleated RBC % 0, Sodium 134, Potassium 2.7 L*, Chloride 88 L, Carbon Dioxide 10.9 L, Anion Gap 35 H, BUN 13, Creatinine 1.09, Est GFR (MDRD) Non-Af 62, BUN/Creatinine Ratio 12.2, Glucose 467 H*, Calcium 9.0, Phosphorus 4.2, Magnesium 1.9, Total Bilirubin 0.46, AST 15, ALT 13, Alkaline Phosphatase 99, Total Protein 7.7, Albumin 4.5, Globulin 3.2, Albumin/Globulin Ratio 1.4, b-Hydroxybutyric mmol/L 10.4, Serum , Qual NEGATIVE 08/03/24 23:15: Urine Color Yellow, Urine Clarity Cloudy, Urine pH 5.0, Ur Specific [place] 1.020, Urine Protein 100 H, Urine Glucose (UA) 1000 H, Urine Ketones 150 A*, Urine Occult Blood 50 H, Urine Nitrite Negative, Urine Bilirubin Negative, Urine Urobilinogen Normal, Ur Leukocyte Esterase 500 H, Urine RBC 0 SEEN, Urine WBC 25-50 SEEN, Ur Squamous Epith Cells 0-5 SEEN, Ur Transition Epith Cell 10-25 SEEN, Urine Bacteria 2+, Urine Mucus 0 SEEN 08/04/24 00:40: POC Glucose 466 H* 08/04/24 02:15: POC Glucose 404 H 08/04/24 03:01: POC Glucose 371 H Rhythm Strip Rhythm Strip: Sinus Tach Rate: 114 Ectopy: None Assessment and Plan . Assessment and plan: ICU Problem List DKA metabolic encephalopathy, hepatic? Plan: start insulin drip simultaneous to KCl repletion of additional 60mEq will defer frontloading long acting SQ insulin 2/2 hypokalemia defer HCO3 2/2 hypokalemia VBG LA level with 7am labs ammonia level --> lactulose and rifaxamin if elevated ciprofloxacin or ceftriaxone for UTI a good start, but has a lot of squamous and may need recollection of a clean catch SW/CM consultation as the [facility] center appears to have mismanaged her DM control, either confiscating her pump or not allowing appropriate dosing? Jayme Chawla MD PCCM [facility] Critical Care Time: 60 minutes The entirety of this encounter was done via Telemedicine
[2024-08-04] MEDS: Insulin Lispro 100 UNIT in 0.9% Normal Saline (100mL Bag) 99 ML 5.3 UNIT CONT INF (03:32)
[2024-08-04 04:01] LABS: Anion Gap 32 (5-15); BUN 13 mg/dL (4-19); BUN/Creat Ratio 11.3 RATIO (10-20); Calcium,Total 7.8 mg/dL (7.6-11.0); Chloride 91 mmol/L (98-108); Creatinine, Serum 1.16 mg/dL (0.70-1.20); EST Glomerular Filtration Rate 58 (>60); Estimated Creatinine Clearance 49.18 ml/min (50-250); Glucose 388 mg/dL (70-99); Sodium Level 129 mmol/L (133-145)
[2024-08-04 04:03] LABS: Potassium 6.2 mmol/L (3.3-5.1)
[2024-08-04] MEDS: Ondansetron 4 MG/2 ML Vial IV ×3 (04:11→19:36)
[2024-08-04] MEDS: Pantoprazole Sodium 40 MG in 0.9% Normal Saline (100mL MB+) 100 ML 330 MG IV ×3 (04:16→20:49)
[2024-08-04] MEDS: 0.9% Normal Saline (1000mL) 1,000 ML 150 ML IV ×2 (04:23→11:40)
[2024-08-04 05:01] LABS: Absolute Lymphocyte Count 2.02 X10^3/uL (0.83-4.51); Absolute Neutrophil Count 10.5 X10^3/uL (2.0-7.7); Basophil# 0.07 X10^3/uL; Basophil% 0.5 % (0-1); Eosinophil# 0.06 X10^3/uL; Eosinophils% 0.4 % (0-5); Hematocrit 39.4 % (37-47); Hemoglobin 13.7 g/dL (12.0-15.0); Lymphocyte # 2.02 X10^3/ul (0.83-4.51); Lymphocyte % 14.8 % (19-41); Mean Corp Hgb Conc 34.8 g/dL (32-36); Mean Corpuscular Hgb 30.3 pg (27.0-32.0); Mean Corpuscular Volume 87.2 fL (81-99); Mean Platelet Vol. 10.1 fl (6.2-12.0); Monocyte# 0.94 X10^3/uL; Monocyte% 6.9 % (0-10); NRBC Flagged by Analyzer 0 % (0-5); Neutrophil # 10.47 X10^3/uL (2.7-7.7); Neutrophil % 76.6 % (47-70); Platelet Count 266 K/mm3 (150-450); RBC Distribution Width CV 13.3 % (11.6-14.6); RBC Distribution Width SD 42.1 fl (35.1-43.9); Red Blood Count 4.52 M/mm3 (4.2-5.4); White Blood Count 13.7 K/mm3 (4.4-11.0)
[2024-08-04 05:09] LABS: Bedside Glucose 379 mg/dL (74-106)
[2024-08-04 05:45] LABS: AST(SGOT) 17 U/L (<=31); Alanine Aminotransfer ALT/SGPT 14 U/L (<=34); Albumin, Serum 4.1 g/dL (3.5-5.0); Alkaline Phosphatase 92 U/L (35-104); Anion Gap 34 (5-15); BUN 12 mg/dL (4-19); BUN/Creat Ratio 11.1 RATIO (10-20); Bilirubin, Direct 0.18 mg/dL (0.00-0.30); Chloride 94 mmol/L (98-108); Creatinine, Serum 1.11 mg/dL (0.70-1.20); EST Glomerular Filtration Rate 61 (>60); Estimated Creatinine Clearance 51.39 ml/min (50-250); Globulin 2.9 g/dL (2.2-4.2); Glucose 369 mg/dL (70-99); Potassium 2.8 mmol/L (3.3-5.1); Sodium Level 134 mmol/L (133-145); Total Bilirubin 0.23 mg/dL (0.00-1.30)
[2024-08-04] MEDS: Acetaminophen 325 MG Tablet 650 MG PO ×2 (05:45→12:53)
[2024-08-04] MEDS: Gabapentin 300 MG Capsule PO ×2 (05:45→20:52)
[2024-08-04] MEDS: Lactulose 20 GM/30 ML UDC PO ×3 (05:46→20:52)
[2024-08-04] MEDS: Midodrine HCl 5 MG Tablet 10 MG PO ×3 (05:46→20:52)
[2024-08-04 05:47] LABS: Blood Gas Specimen Type VEN; O2 Delivery Device Room Air; Time Given 2238
[2024-08-04 05:48] LABS: Comment Results read to DR.; VBG Bicarbonate 13 mmol/L (22-26); VBG PO2 22 mmHg (25-40); VBG SO2 24 % (50-70); VBG TCO2 14 mmol/L (23-33); VBG pCO2 37.9 mmHg (41-51); VBG pH 7.14 (7.32-7.42)
[2024-08-04 05:56] LABS: Hemoglobin A1c 17.4 % (<=5.6)
[2024-08-04 09:05] LABS: Bedside Glucose 277 mg/dL (74-106)
[2024-08-04 09:05] LABS: Bedside Glucose 311 mg/dL (74-106)
[2024-08-04 09:20] LABS: Bedside Glucose 157 mg/dL (74-106)
[2024-08-04 10:30] LABS: Bedside Glucose 136 mg/dL (74-106)
--- NOTE | 2024-08-04 10:31 | CASEMGMT ---
ROGER LEIJA Assessment: Face to Face with pt for initial transition planning/care coordination assessment. RN LISS introduced self and role at [facility], pt voices understanding and consents to assessment. Pt is A&O x4 and answers all questions appropriately at this time. Care providers, pharmacy, and demographics verified/updated. Strata: 9 Admitting Dx: DKA, UTI PCP: Susanna Specialists: , Agricultural Research Engineer Preferred Pharmacy: [facility] Insurance: [facility] Prescription Benefit: yes LNOK: Theresa, Mom. Living Arrangements: Pt states she lives with 18 year old son, however she also states she's been living at a facility. RN LISS asked where she came from, she states [facility] [place]. Pt starting throwing up so did not have a chance to ask additional questions. ADLs: Pt reports I at baseline. Transportation: Pt drives self and denies concerns with transportation. DME: Pt states she has an insulin pump but the facility she came from would not let her have her insulin. HHC/SNF: Denies Hx of. Pt states no concerns with going home at time of dc. Pt states no further concerns/needs. CM to follow. Advised pt to ask CM if any further question/concerns/needs arise, voices understanding. Pt Goal: TBD Plan: VASILE Santizo RN, CM
[2024-08-04] MEDS: Ketorolac 15 MG/ML Vial IV ×2 (10:58→19:36)
[2024-08-04 11:14] LABS: Bedside Glucose 130 mg/dL (74-106)
[2024-08-04] MEDS: traZODone 50 MG Tablet 25 MG PO (12:48)
[2024-08-04] MEDS: Enoxaparin 40 MG/0.4 ML Syringe SC (12:49)
[2024-08-04] MEDS: DULoxetine Hcl 60 MG Capsule PO (12:49)
[2024-08-04] MEDS: Amitriptyline 10 MG Tablet PO (12:49)
[2024-08-04 13:00] LABS: BUN 9 mg/dL (4-19); BUN/Creat Ratio 9.5 RATIO (10-20); Calcium,Total 7.7 mg/dL (7.6-11.0); Chloride 107 mmol/L (98-108); Creatinine, Serum 0.98 mg/dL (0.70-1.20); EST Glomerular Filtration Rate 71 (>60); Estimated Creatinine Clearance 58.21 ml/min (50-250); Glucose 124 mg/dL (70-99); Potassium 3.8 mmol/L (3.3-5.1); Sodium Level 136 mmol/L (133-145)
--- NOTE | 2024-08-04 13:02 | PCM.PN.TICU ---
Objective Data Objective Data Vital Signs: Vital Signs Last response Temperature 36.9 C 08/04/24 07:00 Temperature Source Temporal 08/04/24 07:00 Pulse Rate 102 H 08/04/24 07:00 Respiratory Rate 14 08/04/24 07:00 Blood Pressure 137/78 H 08/04/24 07:00 Blood Pressure Mean 97 08/04/24 07:00 Blood Pressure Source Monitor 08/04/24 07:00 Blood Pressure Position Semi-Fowlers 08/04/24 07:00 Blood Pressure Location Right Arm 08/04/24 07:00 Pulse Ox 100 08/04/24 09:20 Oxygen Delivery Method Room Air 08/04/24 09:20 I&O: I&O Last 24 Hours 08/03/24 08/04/24 08/04/24 23:59 11:59 23:59 Intake Total 1100 / 1100 3781.37 / 3881.37 100 / 3881.37 Output Total 600 / 600 Balance 1100 / 1100 3181.37 / 3281.37 100 / 3281.37 I&O: Total Stay 08/03/24 20:43 thru 08/04/24 12:54 Intake Total 4981.37 Output Total 600 Balance 4381.37 Current Meds Ordered / Administered: Current meds ordered / Administered Generic Name Dose Route Start Last Admin Trade Name Chuckieq PRN Reason Stop Dose Admin Acetaminophen 650 mg 08/04/24 02:45 08/04/24 12:53 Acetaminophen 325 Mg Tablet PO 650 mg Q4H PRN PRN Administration Fever, pain 1-10/10 Al Hydroxide/Mg Hydroxide 30 ml 08/04/24 02:45 Mag Hydrox/Al Hydrox/Simeth 30 Ml Udc PO Q6H PRN PRN Gastric Burning Albuterol Sulfate 2.5 mg 08/04/24 02:45 Albuterol 2.5 Mg/3 Ml Vial.Neb. INHALATION Q2H PRN PRN Dyspnea, wheezing Alprazolam 0.25 mg 08/04/24 02:45 Alprazolam 0.25 Mg Tablet PO BID PRN PRN anxiety Amitriptyline HCl 10 mg 08/04/24 10:00 08/04/24 12:49 Amitriptyline 10 Mg Tablet PO 10 mg DAILY ABE Administration Atorvastatin Calcium 80 mg 08/04/24 22:00 Atorvastatin Calcium 80 Mg Tablet PO QHS ABE Duloxetine HCl 60 mg 08/04/24 10:00 08/04/24 12:49 Duloxetine Hcl 60 Mg Capsule PO 60 mg DAILY ABE Administration Enoxaparin Sodium 40 mg 08/04/24 10:00 08/04/24 12:49 Enoxaparin 40 Mg/0.4 Ml Syringe SC 40 mg DAILY ABE Administration Gabapentin 300 mg 08/04/24 06:00 08/04/24 05:45 Gabapentin 300 Mg Capsule PO 300 mg TID ABE Administration Guaifenesin 10 ml 08/04/24 02:45 Guaifenesin 10 Ml Udc (200mg/10ml) PO Q4H PRN PRN COUGH Hydralazine HCl 10 mg 08/04/24 02:45 Hydralazine 20 Mg/Ml Vial IV Q4H PRN PRN SBP > 160 Protocol Sodium Chloride 1,000 mls @ 150 mls/hr 08/04/24 02:45 08/04/24 11:40 IV 08/04/24 16:04 150 mls/hr .Q6H40M ABE Administration Protocol Dextrose 250 mls @ 999 mls/hr 08/04/24 02:45 Dextrose 10%-Water IV .Q16M PRN Hypoglycemic Protocol Protocol Insulin Human Lispro 100 unit/ 100 mls @ 5.31 mls/hr 08/04/24 02:45 08/04/24 10:54 Sodium Chloride CONT INF 0.04 units/kg/hr .[id number] ABE 2 mls/hr Infusion Protocol 0.1 UNITS/KG/HR Ceftriaxone Sodium 1 gm in 50 mls @ 100 mls/hr 08/04/24 22:00 Rocephin IV Q24H ABE Pantoprazole Sodium 40 mg/ 110 mls @ 330 mls/hr 08/04/24 03:30 08/04/24 12:46 Sodium Chloride IV 330 mls/hr Q12 ABE Administration Sodium Chloride 100 mls @ 15 mls/hr 08/04/24 02:48 IV .Q6H40M PRN Saline Flush Sodium Chloride 100 mls @ 15 mls/hr 08/04/24 02:48 IV .Q6H40M PRN Additional IVPB Infusion Ketorolac Tromethamine 15 mg 08/04/24 02:45 08/04/24 10:58 Ketorolac 15 Mg/Ml Vial IV 08/09/24 02:45 15 mg Q6H PRN PRN Administration Pain Score 1-10 Lactulose 20 gm 08/04/24 06:00 08/04/24 05:46 Lactulose 20 Gm/30 Ml Udc PO 20 gm TID ABE Administration Melatonin 3 mg 08/04/24 02:45 Melatonin 3 Mg Tablet PO QHS PRN PRN INSOMNIA Midodrine 10 mg 08/04/24 06:00 08/04/24 12:48 Midodrine Hcl 5 Mg Tablet PO 10 mg TID ABE Administration Ondansetron HCl 4 mg 08/04/24 02:45 08/04/24 10:55 Ondansetron 4 Mg/2 Ml Vial IV 4 mg Q8H PRN PRN Administration NAUSEA/VOMITING Potassium Chloride 40 meq 08/04/24 10:00 Potassium Chloride Oral Tablet 20 Meq PO DAILY [facility] Potassium Phos/Sodium Phos 1 packet 08/04/24 10:00 08/04/24 12:50 Na Biphos/Potassium Phosphate Packet PO Not Given BID ABE Rifaximin 550 mg 08/04/24 10:00 08/04/24 12:50 Rifaximin 550 Mg Tablet PO Not Given BID ABE Senna/Docusate Sodium 2 tablet 08/04/24 02:45 Senna/Docusate Sodium 1 Tablet PO BID PRN PRN Constipation Sodium Chloride 10 - 40 ml 08/04/24 02:48 0.9% Saline Lock 10 Ml Syringe IV UD PRN SALINE FLUSH Trazodone HCl 25 mg 08/04/24 10:00 08/04/24 12:48 Trazodone 50 Mg Tablet PO 25 mg DAILY ABE Administration Lab / Micro Data 08/04/24 04:50 08/04/24 12:10 Labs: Laboratory Results - last 24 hr 08/03/24 22:36: WBC 16.9 H, RBC 5.07, Hgb 15.2 H, Hct 43.4, MCV 85.6, MCH 30.0, MCHC 35.0, RDW Std Deviation 41.1, RDW Coeff of Teressa 13.2, Plt Count 412, MPV 10.4, Immature Gran % (Auto) 0.600, Neut % (Auto) 81.5 H, Lymph % (Auto) 13.9 L, [place] % (Auto) 3.4, Eos % (Auto) 0.1, Baso % (Auto) 0.5, Absolute Neuts (auto) 13.7 H, Absolute Lymphs (auto) 2.35, Nucleated RBC % 0, Sodium 134, Potassium 2.7 L*, Chloride 88 L, Carbon Dioxide 10.9 L, Anion Gap 35 H, BUN 13, Creatinine 1.09, Est GFR (MDRD) Non-Af 62, BUN/Creatinine Ratio 12.2, Glucose 467 H*, Calcium 9.0, Phosphorus 4.2, Magnesium 1.9, Total Bilirubin 0.46, AST 15, ALT 13, Alkaline Phosphatase 99, Total Protein 7.7, Albumin 4.5, Globulin 3.2, Albumin/Globulin Ratio 1.4, b-Hydroxybutyric mmol/L 10.4, Serum , Qual NEGATIVE 08/03/24 23:15: Urine Color Yellow, Urine Clarity Cloudy, Urine pH 5.0, Ur Specific [place] 1.020, Urine Protein 100 H, Urine Glucose (UA) 1000 H, Urine Ketones 150 A*, Urine Occult Blood 50 H, Urine Nitrite Negative, Urine Bilirubin Negative, Urine Urobilinogen Normal, Ur Leukocyte Esterase 500 H, Urine RBC 0 SEEN, Urine WBC 25-50 SEEN, Ur Squamous Epith Cells 0-5 SEEN, Ur Transition Epith Cell 10-25 SEEN, Urine Bacteria 2+, Urine Mucus 0 SEEN 08/04/24 00:40: POC Glucose 466 H* 08/04/24 02:15: POC Glucose 404 H 08/04/24 03:01: POC Glucose 371 H 08/04/24 03:10: Sodium 129 L, Potassium 6.2 H*, Chloride 91 L, Anion Gap 32 H, BUN 13, Creatinine 1.16, Estim Creat Clear Calc 49.18 L, Est GFR (MDRD) Non-Af 58 L, BUN/Creatinine Ratio 11.3, Glucose 388 H, Calcium 7.8, Procalcitonin 0.10 08/04/24 04:07: POC Glucose 379 H 08/04/24 04:50: WBC 13.7 H, RBC 4.52, Hgb 13.7, Hct 39.4, MCV 87.2, MCH 30.3, MCHC 34.8, RDW Std Deviation 42.1, RDW Coeff of [place] 13.3, Plt Count 266, MPV 10.1, Immature Gran % (Auto) 0.800, Neut % (Auto) 76.6 H, Lymph % (Auto) 14.8 L, [place] % (Auto) 6.9, Eos % (Auto) 0.4, Baso % (Auto) 0.5, Absolute Neuts (auto) 10.5 H, Absolute Lymphs (auto) 2.02, Nucleated RBC % 0, Sodium 134, Potassium 2.8 L, Chloride 94 L, Anion Gap 34 H, BUN 12, Creatinine 1.11, Estim Creat Clear Calc 51.39, Est GFR (MDRD) Non-Af 61, BUN/Creatinine Ratio 11.1, Glucose 369 H, Hemoglobin A1c 17.4, Lactic Acid 1.0, Calcium 8.0, Total Bilirubin 0.23, Direct Bilirubin 0.18, AST 17, ALT 14, Alkaline Phosphatase 92, Total Protein 7.0, Albumin 4.1, Globulin 2.9 08/04/24 05:40: POC Glucose 311 H 08/04/24 06:28: POC Glucose 277 H 08/04/24 08:51: POC Glucose 157 H 08/04/24 10:09: POC Glucose 136 H 08/04/24 10:52: POC Glucose 130 H 08/04/24 12:10: Sodium 136, Potassium 3.8, Chloride 107, Anion Gap 23 H, BUN 9, Creatinine 0.98, Estim Creat Clear Calc 58.21, Est GFR (MDRD) Non-Af 71, BUN/Creatinine Ratio 9.5 L, Glucose 124 H, Calcium 7.7 Micro: Microbiology 08/04/24 01:59 Mucosa - Nasopharyngeal Respiratory Panel (PCR) - Final 08/04/24 03:02 Nasal Secretion MRSA (PCR) - Final ABG Data ABG results: ABG 08/03/24 22:38 Specimen Type SANDRINE VBG pH 7.14 L* VBG pO2 22 L VBG HCO3 13 L VBG Total CO2 14 L VBG O2 Sat (Calc) 24 L POC Mix VBG pCO2 Pt Tmp 37.9 L O2 Delivery Device Room Air Crit Call To/Read Back Yes Blood Gas Notified Whom ED MD Blood Gas Notified Time 1472 Clinical Comments Results read to Rhythm Strip Rhythm Strip: Sinus Tach Rate: 114 Ectopy: None Assessment and Plan . Assessment and plan: Critical Care Time: The entirety of this encounter was done via Telemedicine Subjective Subjective Still N/V but overall improved. NS @ 150 Insulin @ 1 PE: General: Well developed, in no distress HEENT: anicteric Sclera, nl nose; supple neck, no masses Cardiovascular: S1/S2; No rubs, gallops; no displaced PM Respiratory: clear bilat; no crackles, wheezes, or rhonchi Abdominal: Non-tender; Non distended; hypoBS x 4; No Hepatosplenomegaly Extremities: Warm, well perfused; No clubbing, cyanosis; capillary refill < 2 sec Skin: intact, no rashes Neurological: A&Ox3; no gross deficits appreciated A/P: #DKA #Noncompliance -Cont insulin gtt + IVF per protocol; cont q1h CBG + q4h BMPs -Cont IVF; reviewed/adjusted; monitor & replace lytes particularly K; strict I/Os -Gentle PO intake if desired & as tolerated is OK provided no on-going N/V -Stressed the importance of compliance with insulin; pt verbalized understanding -Nutrition consult, diabetic education NPO LMWH, PPI Guarded prognosis CCT: 50 min The entirety of this encounter was completed via telemedicine.
[2024-08-04 13:08] LABS: Bedside Glucose 114 mg/dL (74-106)
[2024-08-04 13:28] LABS: Carbon Dioxide 6.1 mmol/L (21.0-32.0)
[2024-08-04 13:28] LABS: Carbon Dioxide 6.4 mmol/L (21.0-32.0)
[2024-08-04 13:29] LABS: Anion Gap 22 (5-15); Carbon Dioxide 6.6 mmol/L (21.0-32.0)
[2024-08-04] MEDS: Dext 5%-0.45% NS 1,000 ML 150 ML IV ×2 (13:45→20:26)
[2024-08-04 14:01] LABS: Bedside Glucose 125 mg/dL (74-106)
--- NOTE | 2024-08-04 14:51 | PN_ITS ---
Subjective Subjective Patient seen and examined. She complained of nausea and vomiting. Review of systems otherwise negative. She has been managed for DKA. Bicarb is 6.6 and anion gap is still elevated at 22. Objective Data Objective Data Vital Signs: Vital Signs Temp Pulse Resp BP Pulse Ox O2 Del Method 98.5 F 102 H 14 137/78 H 100 Room Air 08/04/24 07:00 08/04/24 07:00 08/04/24 07:00 08/04/24 07:00 08/04/24 09:20 08/04/24 09:20 Oxygen Delivery Method Room Air Weight: 117 lb 1.047 oz Body Mass Index (BMI) 18.8 Intake & Output: Intake and Output for Last 24 Hours 08/02/24 08/03/24 08/04/24 23:59 23:59 23:59 Intake Total 1100 / 1100 3881.37 / 3881.37 Output Total 600 / 600 Balance 1100 / 1100 3281.37 / 3281.37 Medical Nutrition Assessment Dietitian: Malnutrition Criteria Met Start: 08/04/24 14:21 Freq: Status: Active Protocol: Document 08/04/24 14:21 RMA (Rec: 08/04/24 14:21 RMA [id number]) Nutrition Malnutrition Evidence of Yes Malnutrition Exists Malnutrition (severe Acute Illness/Injury,Chronic ): Evidenced By Suboptimal Energy Intake (Severe),Weight Loss (Severe), Physical Changes (Moderate) Clinical Problem Chronic Disease or Condition Related Malnutrition Etiology severe protein-calorie malnutrition in the context of chronic disease related to poor glycemic control and inadequate oral intake Signs/Symptoms as evidenced by unintentional weight loss ~20% x 6 months, BMI 18.9, moderate muscle and fat wasting in the clavicle, face, arms and legs and PO meeting less than 75% estimated nutrition needs x 6 months; currently NPO due to insulin infusion Status Active Problem Recommendation Dietitian Recommend advance diet as tolerated to liberalized Recommendations/ consistent carbohydrate; no caloric restrictions. Changes Recommend order 120mL ensure plus HP 4 times per day w/ mepdass. Pt would greatly benefit from ongoing diet counseling with out-pt RD when ready for lifestyle change and dietary compliance. Lab / Micro Data 08/04/24 04:50 08/04/24 12:10 Labs: Laboratory Results - last 24 hr 08/03/24 22:36: WBC 16.9 H, RBC 5.07, Hgb 15.2 H, Hct 43.4, MCV 85.6, MCH 30.0, MCHC 35.0, RDW Std Deviation 41.1, RDW Coeff of Teressa 13.2, Plt Count 412, MPV 10.4, Immature Gran % (Auto) 0.600, Neut % (Auto) 81.5 H, Lymph % (Auto) 13.9 L, O'Brien % (Auto) 3.4, Eos % (Auto) 0.1, Baso % (Auto) 0.5, Absolute Neuts (auto) 13.7 H, Absolute Lymphs (auto) 2.35, Nucleated RBC % 0, Sodium 134, Potassium 2.7 L*, Chloride 88 L, Carbon Dioxide 10.9 L, Anion Gap 35 H, BUN 13, Creatinine 1.09, Est GFR (MDRD) Non-Af 62, BUN/Creatinine Ratio 12.2, Glucose 467 H*, Calcium 9.0, Phosphorus 4.2, Magnesium 1.9, Total Bilirubin 0.46, AST 15, ALT 13, Alkaline Phosphatase 99, Total Protein 7.7, Albumin 4.5, Globulin 3.2, Albumin/Globulin Ratio 1.4, b-Hydroxybutyric mmol/L 10.4, Serum , Qual NEGATIVE 08/03/24 23:15: Urine Color Yellow, Urine Clarity Cloudy, Urine pH 5.0, Ur Specific [place] 1.020, Urine Protein 100 H, Urine Glucose (UA) 1000 H, Urine Ketones 150 A*, Urine Occult Blood 50 H, Urine Nitrite Negative, Urine Bilirubin Negative, Urine Urobilinogen Normal, Ur Leukocyte Esterase 500 H, Urine RBC 0 SEEN, Urine WBC 25-50 SEEN, Ur Squamous Epith Cells 0-5 SEEN, Ur Transition Epith Cell 10-25 SEEN, Urine Bacteria 2+, Urine Mucus 0 SEEN 08/04/24 00:40: POC Glucose 466 H* 08/04/24 02:15: POC Glucose 404 H 08/04/24 03:01: POC Glucose 371 H 08/04/24 03:10: Sodium 129 L, Potassium 6.2 H*, Chloride 91 L, Carbon Dioxide 6.4 L*, Anion Gap 32 H, BUN 13, Creatinine 1.16, Estim Creat Clear Calc 49.18 L, Est GFR (MDRD) Non-Af 58 L, BUN/Creatinine Ratio 11.3, Glucose 388 H, Calcium 7.8, Procalcitonin 0.10 08/04/24 04:07: POC Glucose 379 H 08/04/24 04:50: WBC 13.7 H, RBC 4.52, Hgb 13.7, Hct 39.4, MCV 87.2, MCH 30.3, MCHC 34.8, RDW Std Deviation 42.1, RDW Coeff of Teressa 13.3, Plt Count 266, MPV 10.1, Immature Gran % (Auto) 0.800, Neut % (Auto) 76.6 H, Lymph % (Auto) 14.8 L, O'Brien % (Auto) 6.9, Eos % (Auto) 0.4, Baso % (Auto) 0.5, Absolute Neuts (auto) 10.5 H, Absolute Lymphs (auto) 2.02, Nucleated RBC % 0, Sodium 134, Potassium 2.8 L, Chloride 94 L, Carbon Dioxide 6.1 L*, Anion Gap 34 H, BUN 12, Creatinine 1.11, Estim Creat Clear Calc 51.39, Est GFR (MDRD) Non-Af 61, BUN/Creatinine Ratio 11.1, Glucose 369 H, Hemoglobin A1c 17.4, Lactic Acid 1.0, Calcium 8.0, Total Bilirubin 0.23, Direct Bilirubin 0.18, AST 17, ALT 14, Alkaline Phosphatase 92, Total Protein 7.0, Albumin 4.1, Globulin 2.9 08/04/24 05:40: POC Glucose 311 H 08/04/24 06:28: POC Glucose 277 H 08/04/24 08:51: POC Glucose 157 H 08/04/24 10:09: POC Glucose 136 H 08/04/24 10:52: POC Glucose 130 H 08/04/24 12:10: Sodium 136, Potassium 3.8, Chloride 107, Carbon Dioxide 6.6 L*, Anion Gap 22 H, BUN 9, Creatinine 0.98, Estim Creat Clear Calc 58.21, Est GFR (MDRD) Non-Af 71, BUN/Creatinine Ratio 9.5 L, Glucose 124 H, Calcium 7.7 08/04/24 12:43: POC Glucose 114 H 08/04/24 13:43: POC Glucose 125 H Micro: Microbiology 08/04/24 01:59 Mucosa - Nasopharyngeal Respiratory Panel (PCR) - Final 08/04/24 03:02 Nasal Secretion MRSA (PCR) - Final ABG Data ABG results: ABG 08/03/24 22:38 Specimen Type SANDRINE VBG pH 7.14 L* VBG pO2 22 L VBG HCO3 13 L VBG Total CO2 14 L VBG O2 Sat (Calc) 24 L POC Mix VBG pCO2 Pt Tmp 37.9 L O2 Delivery Device Room Air Crit Call To/Read Back Yes Blood Gas Notified Whom ED Blood Gas Notified Time 2237 Clinical Comments Results read to Rhythm Strip Rhythm Strip: Sinus Tach Rate: 114 Ectopy: None Physical Exam Const alert, oriented x3 and no apparent distress General Appearance: cooperative HEENT normocephalic, head/scalp atraumatic, moist oral mucous membranes and oropharynx normal Eyes PERRL and EOMs intact bilaterally Neck no lymphadenopathy and supple Lymph Lymphatic: no lymphadenopathy noted and no lymphedema noted Resp normal respiratory effort, normal air movement and clear to auscultation bilaterally Cardio regular rate, regular rhythm and S1 normal heart sound GI normal to inspection, nondistended, normoactive bowel sounds, soft to palpation, non-tender and non-distended Extremity normal capillary refill, no clubbing, cyanosis or edema and no calf tenderness General Extremity: no tenderness to palpation of joints or extremities Neuro CN's II-XII intact bilaterally, no focal motor deficits and no sensory deficits noted Motor Exam: strength 5/5 throughout and general weakness Psych thought process normal and cooperative Appearance: appropriate Assessment & Plan Assessment/Plan (1) DKA (diabetic ketoacidosis): (2) UTI (urinary tract infection): (3) Acute hypokalemia: PLAN: Plan #Acute DKA * Patient is a known diabetic with insulin pump. So she is run out of insulin. She has had several recurrent admissions for DKA. * Bicarb still low at 6 and anion gap remains elevated. * Continue keeping n.p.o. Hydrate aggressively. DKA protocol and continue insulin drip. Critical care on board. * A1c also pending. Replace electrolytes per DKA protocol. * Anion gap is down from 34-22. Continue monitoring BMP every 4 hourly. #Hypokalemia: Will replace aggressively and monitor. #UTI: Urinalysis showed evidence of UTI. On IV ceftriaxone. Urine cultures and blood cultures pending #Alcoholic liver cirrhosis: * Patient continues to drink. On Lactulose and midodrine as well as Xifaxan. * Lasix held on admission as she was dehydrated from the DKA. #Anxiety and depression: On duloxetine and trazodone as well as amitriptyline and Xanax. #Anemia of chronic disease: Stable #Hypertension: Lasix held. #Hyperlipidemia: On statin #GERD: On PPI DVT prophylaxis: Lovenox Charges/Coding Visit Charges Inpatient E&M: 99695 Subs Hosp L3
[2024-08-04 15:20] LABS: Bedside Glucose 176 mg/dL (74-106)
[2024-08-04 16:19] LABS: Anion Gap 20 (5-15); BUN 10 mg/dL (4-19); BUN/Creat Ratio 9.9 RATIO (10-20); Calcium,Total 7.7 mg/dL (7.6-11.0); Chloride 106 mmol/L (98-108); Creatinine, Serum 0.98 mg/dL (0.70-1.20); EST Glomerular Filtration Rate 70 (>60); Estimated Creatinine Clearance 58.21 ml/min (50-250); Glucose 191 mg/dL (70-99); Potassium 3.1 mmol/L (3.3-5.1); Sodium Level 134 mmol/L (133-145)
[2024-08-04 16:27] LABS: Bedside Glucose 172 mg/dL (74-106)
[2024-08-04] MEDS: Potassium Chloride Oral Tablet 20 MEQ 40 MEQ PO (17:11)
[2024-08-04 18:25] LABS: Bedside Glucose 158 mg/dL (74-106)
[2024-08-04 18:49] LABS: Bedside Glucose 192 mg/dL (74-106)
--- NOTE | 2024-08-04 19:15 | NURSING ---
went in to room to introduce self to pt and check drips and her insulin was running @4ml/hr
[2024-08-04 19:25] LABS: Bedside Glucose 183 mg/dL (74-106)
[2024-08-04] MEDS: 0.9% Saline Lock 10 ML Syringe IV (19:37)
[2024-08-04 19:53] LABS: Anion Gap 17 (5-15); BUN 9 mg/dL (4-19); BUN/Creat Ratio 8.3 RATIO (10-20); Calcium,Total 7.9 mg/dL (7.6-11.0); Carbon Dioxide 10.8 mmol/L (21.0-32.0); Chloride 106 mmol/L (98-108); Creatinine, Serum 1.06 mg/dL (0.70-1.20); EST Glomerular Filtration Rate 64 (>60); Estimated Creatinine Clearance 53.82 ml/min (50-250); Glucose 210 mg/dL (70-99); Potassium 2.7 mmol/L (3.3-5.1); Sodium Level 134 mmol/L (133-145)
[2024-08-04 20:31] LABS: Bedside Glucose 187 mg/dL (74-106)
[2024-08-04] MEDS: Atorvastatin Calcium 80 MG Tablet PO (20:52)
[2024-08-04] MEDS: rifAXIMin 550 MG Tablet PO (20:52)
[2024-08-04 21:41] LABS: Bedside Glucose 159 mg/dL (74-106)
[2024-08-04 22:35] LABS: Bedside Glucose 178 mg/dL (74-106)
[2024-08-04] MEDS: Ceftriaxone 1 GM/50 ML BAG IV (22:45)
[2024-08-04 23:39] LABS: Bedside Glucose 204 mg/dL (74-106)
[2024-08-05] VITALS (24 sets, daily range): BP systolic 92–157; BP diastolic 54–117; PULSE 81–106; RESP 10–18; TEMP 37–37.5; O2SAT 95–100; BMI 19.1
[2024-08-05 00:07] LABS: Anion Gap 13 (5-15); BUN 7 mg/dL (4-19); BUN/Creat Ratio 6.6 RATIO (10-20); Calcium,Total 7.9 mg/dL (7.6-11.0); Carbon Dioxide 12.1 mmol/L (21.0-32.0); Chloride 107 mmol/L (98-108); Creatinine, Serum 1.01 mg/dL (0.70-1.20); EST Glomerular Filtration Rate 68 (>60); Estimated Creatinine Clearance 56.48 ml/min (50-250); Glucose 207 mg/dL (70-99); Potassium 3.7 mmol/L (3.3-5.1); Sodium Level 132 mmol/L (133-145)
[2024-08-05] MEDS: Potassium Chloride 10mEq/100mL 10 MEQ/100 ML IV.SOLN. 100 MEQ IV BOLUS ×6 (00:14→10:52)
[2024-08-05 00:33] LABS: Bedside Glucose 167 mg/dL (74-106)
[2024-08-05 01:32] LABS: Bedside Glucose 148 mg/dL (74-106)
--- NOTE | 2024-08-05 03:20 | NURSING ---
time change spring so no 2 am insulin titration
[2024-08-05 03:36] LABS: Bedside Glucose 126 mg/dL (74-106)
[2024-08-05 04:24] LABS: Absolute Lymphocyte Count 2.71 X10^3/uL (0.83-4.51); Absolute Neutrophil Count 5.7 X10^3/uL (2.0-7.7); Basophil# 0.05 X10^3/uL; Basophil% 0.5 % (0-1); Eosinophil# 0.04 X10^3/uL; Eosinophils% 0.4 % (0-5); Lymphocyte # 2.71 X10^3/ul (0.83-4.51); Lymphocyte % 29.4 % (19-41); Mean Corp Hgb Conc 35.3 g/dL (32-36); Mean Corpuscular Hgb 29.9 pg (27.0-32.0); Mean Corpuscular Volume 84.6 fL (81-99); Mean Platelet Vol. 9.1 fl (6.2-12.0); Monocyte# 0.65 X10^3/uL; Monocyte% 7.1 % (0-10); NRBC Flagged by Analyzer 0 % (0-5); Neutrophil # 5.72 X10^3/uL (2.7-7.7); Neutrophil % 62.2 % (47-70); Platelet Count 176 K/mm3 (150-450); RBC Distribution Width CV 13.6 % (11.6-14.6); RBC Distribution Width SD 41.7 fl (35.1-43.9); Red Blood Count 4.02 M/mm3 (4.2-5.4); White Blood Count 9.2 K/mm3 (4.4-11.0)
[2024-08-05] MEDS: Lactulose 20 GM/30 ML UDC PO ×3 (04:35→22:09)
[2024-08-05] MEDS: Midodrine HCl 5 MG Tablet 10 MG PO ×3 (04:35→22:09)
[2024-08-05] MEDS: Gabapentin 300 MG Capsule PO ×3 (04:35→22:09)
[2024-08-05 04:42] LABS: Anion Gap 11 (5-15); BUN 5 mg/dL (4-19); BUN/Creat Ratio 5.3 RATIO (10-20); Calcium,Total 8.1 mg/dL (7.6-11.0); Carbon Dioxide 13.9 mmol/L (21.0-32.0); Chloride 109 mmol/L (98-108); Creatinine, Serum 0.89 mg/dL (0.70-1.20); EST Glomerular Filtration Rate 80 (>60); Glucose 118 mg/dL (70-99); Potassium 2.7 mmol/L (3.3-5.1); Sodium Level 133 mmol/L (133-145)
[2024-08-05 04:49] LABS: Bedside Glucose 115 mg/dL (74-106)
[2024-08-05] MEDS: Insulin Lispro 100 UNIT in 0.9% Normal Saline (100mL Bag) 99 ML 6 UNIT CONT INF (05:27)
[2024-08-05] MEDS: Ketorolac 15 MG/ML Vial IV (05:30)
--- NOTE | 2024-08-05 05:34 | PCM.HOSP.N ---
Hospitalist Note GAP closed x 2 however CO2 only 13.9, will continue and repeat an additional BMP and maintain on protocol.
[2024-08-05 05:47] LABS: Bedside Glucose 102 mg/dL (74-106)
[2024-08-05 06:42] LABS: Bedside Glucose 81 mg/dL (74-106)
[2024-08-05 07:21] LABS: Bedside Glucose 80 mg/dL (74-106)
[2024-08-05 08:23] LABS: Bedside Glucose 80 mg/dL (74-106)
--- NOTE | 2024-08-05 08:39 | PN.CC_ITS ---
Objective Data Objective Data Vital Signs: Vital Signs Last response 3 Temperature 37.3 C H 08/05/24 04:00 Temperature Source Temporal 08/05/24 04:00 Pulse Rate 85 08/05/24 07:00 Pulse Strength Normal (2+) 08/04/24 21:27 Respiratory Rate 16 08/05/24 07:00 Blood Pressure 123/74 H 08/05/24 07:00 Blood Pressure Mean 90 08/05/24 07:00 Blood Pressure Source Monitor 08/05/24 07:00 Blood Pressure Position Semi-Fowlers 08/05/24 07:00 Blood Pressure Location Right Arm 08/05/24 07:00 Pulse Ox 99 08/05/24 07:00 Oxygen Delivery Method Room Air 08/05/24 07:00 I&O: I&O Last 24 Hours 3 08/04/24 08/04/24 08/05/24 11:59 23:59 12:59 Intake Total 3781.37 / 6542.80 2761.43 / 6542.80 1430.67 / 1430.67 Output Total 600 / 900 300 / 900 1999 / 1999 Balance 3181.37 / 5642.80 2461.43 / 5642.80 -569.33 / -569.33 I&O: Total Stay 3 08/03/24 20:43 thru 08/05/24 07:59 Intake Total 9073.47 Output Total 2900 Balance 6173.47 Current Meds Ordered / Administered: Current meds ordered / Administered 3 Generic Name Dose Route Start Last Admin Trade Name Freq PRN Reason Stop Dose Admin Acetaminophen 650 mg 08/04/24 02:45 08/04/24 12:53 Acetaminophen 325 Mg Tablet PO 650 mg Q4H PRN PRN Administration Fever, pain 1-10 Al Hydroxide/Mg Hydroxide 30 ml 08/04/24 02:45 Mag Hydrox/Al Hydrox/Simeth 30 Ml Udc PO Q6H PRN PRN Gastric Burning Albuterol Sulfate 2.5 mg 08/04/24 02:45 Albuterol 2.5 Mg/3 Ml Vial.Neb. INHALATION Q2H PRN PRN Dyspnea, wheezing Alprazolam 0.25 mg 08/04/24 02:45 Alprazolam 0.25 Mg Tablet PO BID PRN PRN anxiety Amitriptyline HCl 10 mg 08/04/24 10:00 08/04/24 12:49 Amitriptyline 10 Mg Tablet PO 10 mg DAILY ABE Administration Atorvastatin Calcium 80 mg 08/04/24 22:00 08/04/24 20:52 Atorvastatin Calcium 80 Mg Tablet PO 80 mg QHS ABE Administration Duloxetine HCl 60 mg 08/04/24 10:00 08/04/24 12:49 Duloxetine Hcl 60 Mg Capsule PO 60 mg DAILY ABE Administration Enoxaparin Sodium 40 mg 08/04/24 10:00 08/04/24 12:49 Enoxaparin 40 Mg/0.4 Ml Syringe SC 40 mg DAILY ABE Administration Gabapentin 300 mg 08/04/24 06:00 08/05/24 04:35 Gabapentin 300 Mg Capsule PO 300 mg TID ABE Administration Guaifenesin 10 ml 08/04/24 02:45 Guaifenesin 10 Ml Udc (200mg/10ml) PO Q4H PRN PRN COUGH Hydralazine HCl 10 mg 08/04/24 02:45 Hydralazine 20 Mg/Ml Vial IV Q4H PRN PRN SBP > 160 Protocol Dextrose 250 mls @ 999 mls/hr 08/04/24 02:45 Dextrose 10%-Water IV .Q16M PRN Hypoglycemic Protocol Protocol Insulin Human Lispro 100 unit/ 100 mls @ 5.31 mls/hr 08/04/24 02:45 08/05/24 07:59 Sodium Chloride CONT INF 0.09 units/kg/hr .[id number] ABE 5 mls/hr Infusion Protocol 0.1 UNITS/KG/HR Ceftriaxone Sodium 1 gm in 50 mls @ 100 mls/hr 08/04/24 22:00 08/04/24 23:36 Rocephin IV Infused Q24H ABE Infusion Pantoprazole Sodium 40 mg/ 110 mls @ 330 mls/hr 08/04/24 03:30 08/04/24 21:18 Sodium Chloride IV Infused Q12 ABE Infusion Sodium Chloride 100 mls @ 15 mls/hr 08/04/24 02:48 IV .Q6H40M PRN Saline Flush Sodium Chloride 100 mls @ 15 mls/hr 08/04/24 02:48 IV .Q6H40M PRN Additional IVPB Infusion Potassium Chloride 10 meq in 100 mls @ 100 mls/hr 08/05/24 05:30 08/05/24 08:01 IV BOLUS 08/05/24 09:29 100 mls/hr Q1H ABE Administration Ketorolac Tromethamine 15 mg 08/04/24 02:45 08/05/24 05:30 Ketorolac 15 Mg/Ml Vial IV 08/09/24 02:45 15 mg Q6H PRN PRN Administration Pain Score 1-10 Lactulose 20 gm 08/04/24 06:00 08/05/24 04:35 Lactulose 20 Gm/30 Ml Udc PO 20 gm TID ABE Administration Melatonin 3 mg 08/04/24 02:45 Melatonin 3 Mg Tablet PO QHS PRN PRN INSOMNIA Midodrine 10 mg 08/04/24 06:00 08/05/24 04:35 Midodrine Hcl 5 Mg Tablet PO 10 mg TID ABE Administration Ondansetron HCl 4 mg 08/04/24 02:45 08/04/24 19:36 Ondansetron 4 Mg/2 Ml Vial IV 4 mg Q8H PRN PRN Administration NAUSEA/VOMITING Potassium Chloride 40 meq 08/04/24 10:00 08/04/24 17:11 Potassium Chloride Oral Tablet 20 Meq PO 40 meq DAILY ABE Administration Potassium Phos/Sodium Phos 1 packet 08/04/24 10:00 08/04/24 20:42 Na Biphos/Potassium Phosphate Packet PO Not Given BID ABE Rifaximin 550 mg 08/04/24 10:00 08/04/24 20:52 Rifaximin 550 Mg Tablet PO 550 mg BID ABE Administration Senna/Docusate Sodium 2 tablet 08/04/24 02:45 Senna/Docusate Sodium 1 Tablet PO BID PRN PRN Constipation Sodium Chloride 10 - 40 ml 08/04/24 02:48 08/04/24 19:37 0.9% Saline Lock 10 Ml Syringe IV 40 ml UD PRN Administration SALINE FLUSH Trazodone HCl 25 mg 08/04/24 10:00 08/04/24 12:48 Trazodone 50 Mg Tablet PO 25 mg DAILY ABE Administration Medical Records Data Medical Nutrition Assessment Dietitian: Malnutrition Criteria Met Start: 08/04/24 14:21 Freq: Status: Active Protocol: Document 08/04/24 14:21 RMA (Rec: 08/04/24 14:21 RMA [id number]) Nutrition Malnutrition Evidence of Yes Malnutrition Exists Malnutrition (severe Acute Illness/Injury,Chronic ): Evidenced By Suboptimal Energy Intake (Severe),Weight Loss (Severe), Physical Changes (Moderate) Clinical Problem Chronic Disease or Condition Related Malnutrition Etiology severe protein-calorie malnutrition in the context of chronic disease related to poor glycemic control and inadequate oral intake Signs/Symptoms as evidenced by unintentional weight loss ~20% x 6 months, BMI 18.9, moderate muscle and fat wasting in the clavicle, face, arms and legs and PO meeting less than 75% estimated nutrition needs x 6 months; currently NPO due to insulin infusion Status Active Problem Recommendation Dietitian Recommend advance diet as tolerated to liberalized Recommendations/ consistent carbohydrate; no caloric restrictions. Changes Recommend order 120mL ensure plus HP 4 times per day w/ mepdass. Pt would greatly benefit from ongoing diet counseling with out-pt RD when ready for lifestyle change and dietary compliance. Lab / Micro Data 08/05/24 04:15 08/05/24 08:00 Labs: Laboratory Results - last 24 hr 08/04/24 03:10: Carbon Dioxide 6.4 L* 08/04/24 04:50: Carbon Dioxide 6.1 L* 08/04/24 05:40: POC Glucose 311 H 08/04/24 06:28: POC Glucose 277 H 08/04/24 08:51: POC Glucose 157 H 08/04/24 10:09: POC Glucose 136 H 08/04/24 10:52: POC Glucose 130 H 08/04/24 12:10: Sodium 136, Potassium 3.8, Chloride 107, Carbon Dioxide 6.6 L*, Anion Gap 22 H, BUN 9, Creatinine 0.98, Estim Creat Clear Calc 58.21, Est GFR (MDRD) Non-Af 71, BUN/Creatinine Ratio 9.5 L, Glucose 124 H, Calcium 7.7 08/04/24 12:43: POC Glucose 114 H 08/04/24 13:43: POC Glucose 125 H 08/04/24 14:45: Sodium 134, Potassium 3.1 L, Chloride 106, Carbon Dioxide 8.0 L* , Anion Gap 20 H, BUN 10, Creatinine 0.98, Estim Creat Clear Calc 58.21, Est GFR (MDRD) Non-Af 70, BUN/Creatinine Ratio 9.9 L, Glucose 191 H, Calcium 7.7 08/04/24 14:56: POC Glucose 176 H 08/04/24 15:59: POC Glucose 172 H 08/04/24 17:08: POC Glucose 158 H 08/04/24 18:25: POC Glucose 192 H 08/04/24 18:30: Sodium 134, Potassium 2.7 L*, Chloride 106, Carbon Dioxide 10.8 L, Anion Gap 17 H, BUN 9, Creatinine 1.06, Estim Creat Clear Calc 53.82, Est GFR (MDRD) Non-Af 64, BUN/Creatinine Ratio 8.3 L, Glucose 210 H, Calcium 7.9 08/04/24 19:06: POC Glucose 183 H 08/04/24 20:05: POC Glucose 187 H 08/04/24 21:17: POC Glucose 159 H 08/04/24 22:16: POC Glucose 178 H 08/04/24 23:15: POC Glucose 204 H 08/04/24 23:30: Sodium 132 L, Potassium 3.7, Chloride 107, Carbon Dioxide 12.1 L , Anion Gap 13, BUN 7, Creatinine 1.01, Estim Creat Clear Calc 56.48, Est GFR (MDRD) Non-Af 68, BUN/Creatinine Ratio 6.6 L, Glucose 207 H, Calcium 7.9 08/05/24 00:12: POC Glucose 167 H 08/05/24 01:11: POC Glucose 148 H 08/05/24 03:15: POC Glucose 126 H 08/05/24 04:15: WBC 9.2, RBC 4.02 L, Hgb 12.0, Hct 34.0 L, MCV 84.6, MCH 29.9, MCHC 35.3, RDW Std Deviation 41.7, RDW Coeff of Teressa 13.6, Plt Count 176, MPV 9.1, Immature Gran % (Auto) 0.400, Neut % (Auto) 62.2, Lymph % (Auto) 29.4, Edgar % (Auto) 7.1, Eos % (Auto) 0.4, Baso % (Auto) 0.5, Absolute Neuts (auto) 5.7, Absolute Lymphs (auto) 2.71, Nucleated RBC % 0, Sodium 133, Potassium 2.7 L*, C hloride 109 H, Carbon Dioxide 13.9 L, Anion Gap 11, BUN 5, Creatinine 0.89, Estim Creat Clear Calc 64.10, Est GFR (MDRD) Non-Af 80, BUN/Creatinine Ratio 5.3 L, Glucose 118 H, Calcium 8.1 08/05/24 04:17: POC Glucose 115 H 08/05/24 05:25: POC Glucose 102 08/05/24 06:10: POC Glucose 81 08/05/24 07:00: POC Glucose 80 08/05/24 07:57: POC Glucose 80 Micro: Microbiology 08/04/24 01:59 Mucosa - Nasopharyngeal Respiratory Panel (PCR) - Final 08/04/24 03:02 Nasal Secretion MRSA (PCR) - Final Rhythm Strip Rhythm Strip: Sinus Tach Rate: 114 Ectopy: None Assessment and Plan . Assessment and plan: Critical Care Time: The entirety of this encounter was done via Telemedicine Subjective Subjective No acute events over night. Pt reports being hungry & denies N/V. D5-1/NS @ 100 Insulin @ 5 PE: General: Well developed, in no distress HEENT: anicteric Sclera, nl nose; supple neck, no masses Cardiovascular: S1/S2; No rubs, gallops; no displaced PM Respiratory: clear bilat; no crackles, wheezes, or rhonchi Abdominal: Non-tender; Non distended; hypoBS x 4; No Hepatosplenomegaly Extremities: Warm, well perfused; No clubbing, cyanosis; capillary refill < 2 sec Skin: intact, no rashes Neurological: A&Ox3; no gross deficits appreciated A/P: #DKA (on insulin pump) #Noncompliance -Cont insulin gtt + IVF per protocol; cont q1h CBG + q4h BMPs --> transition to LA + SSI; cont close monitoring; at home patient uses insulin pump -Cont IVF; reviewed/adjusted; monitor & replace lytes particularly K; strict I/Os --> can advance diet and D/C IVF if tolerating -Stressed the importance of compliance with insulin; pt verbalized understanding -Nutrition consult, diabetic education PO diet LMWH, PPI Guarded prognosis If patient tolerates transition off insulin drip critical care will sign off but available as needed. Pt can be downgraded later in the day from my standpoint if doing well. CCT: 50 min The entirety of this encounter was completed via telemedicine.
[2024-08-05 08:50] LABS: Anion Gap 10 (5-15); BUN 4 mg/dL (4-19); BUN/Creat Ratio 5.1 RATIO (10-20); Calcium,Total 6.8 mg/dL (7.6-11.0); Carbon Dioxide 15.2 mmol/L (21.0-32.0); Chloride 110 mmol/L (98-108); Creatinine, Serum 0.81 mg/dL (0.70-1.20); EST Glomerular Filtration Rate 88 (>60); Estimated Creatinine Clearance 71.75 ml/min (50-250); Glucose 98 mg/dL (70-99); Potassium 2.8 mmol/L (3.3-5.1); Sodium Level 135 mmol/L (133-145)
[2024-08-05 09:52] LABS: Bedside Glucose 63 mg/dL (74-106)
[2024-08-05 10:44] LABS: Bedside Glucose 136 mg/dL (74-106)
[2024-08-05] MEDS: Insulin NPH Human 100 UNITS/ML PEN 20 UNITS SC ×2 (10:46→16:59)
[2024-08-05] MEDS: Insulin Lispro 100 UNIT/ML INSULN.PEN SC ×3 (10:53→17:00)
[2024-08-05] MEDS: 0.9% Saline Lock 10 ML Syringe IV ×2 (10:56→22:10)
[2024-08-05] MEDS: Amitriptyline 10 MG Tablet PO (10:57)
[2024-08-05] MEDS: Acetaminophen 325 MG Tablet 650 MG PO ×2 (10:57→17:01)
[2024-08-05 11:22] LABS: Bedside Glucose 195 mg/dL (74-106)
--- NOTE | 2024-08-05 13:09 | PN_ITS ---
Subjective Subjective Patient seen and examined. She says she feels better and her nausea and vomiting have resolved. Review of systems is otherwise negative. Bicarb is 15, but anion gap has closed x 2 at 10. Objective Data Objective Data Vital Signs: Vital Signs Temp Pulse Resp BP Pulse Ox O2 Del Method 99.2 F H 85 16 123/74 H 99 Room Air 08/05/24 04:00 08/05/24 07:00 08/05/24 07:00 08/05/24 07:00 08/05/24 07:00 08/05/24 07:00 Oxygen Delivery Method Room Air Weight: 119 lb 4.321 oz Body Mass Index (BMI) 19.1 Intake & Output: Intake and Output for Last 24 Hours 08/03/24 08/04/24 08/06/24 23:59 23:59 00:59 Intake Total 1100 / 1100 6542.80 / 6542.80 1638.25 / 1638.25 Output Total 900 / 900 2000 / 2000 Balance 1100 / 1100 5642.80 / 5642.80 -361.75 / -361.75 Medical Nutrition Assessment Dietitian: Malnutrition Criteria Met Start: 08/04/24 14:21 Freq: Status: Active Protocol: Document 08/04/24 14:21 RMA (Rec: 08/04/24 14:21 RMA [id number]) Nutrition Malnutrition Evidence of Yes Malnutrition Exists Malnutrition (severe Acute Illness/Injury,Chronic ): Evidenced By Suboptimal Energy Intake (Severe),Weight Loss (Severe), Physical Changes (Moderate) Clinical Problem Chronic Disease or Condition Related Malnutrition Etiology severe protein-calorie malnutrition in the context of chronic disease related to poor glycemic control and inadequate oral intake Signs/Symptoms as evidenced by unintentional weight loss ~20% x 6 months, BMI 18.9, moderate muscle and fat wasting in the clavicle, face, arms and legs and PO meeting less than 75% estimated nutrition needs x 6 months; currently NPO due to insulin infusion Status Active Problem Recommendation Dietitian Recommend advance diet as tolerated to liberalized Recommendations/ consistent carbohydrate; no caloric restrictions. Changes Recommend order 120mL ensure plus HP 4 times per day w/ mepdass. Pt would greatly benefit from ongoing diet counseling with out-pt RD when ready for lifestyle change and dietary compliance. Lab / Micro Data 08/05/24 04:15 08/05/24 08:00 Labs: Laboratory Results - last 24 hr 08/04/24 03:10: Carbon Dioxide 6.4 L* 08/04/24 04:50: Carbon Dioxide 6.1 L* 08/04/24 12:10: Sodium 136, Potassium 3.8, Chloride 107, Carbon Dioxide 6.6 L*, Anion Gap 22 H, BUN 9, Creatinine 0.98, Estim Creat Clear Calc 58.21, Est GFR (MDRD) Non-Af 71, BUN/Creatinine Ratio 9.5 L, Glucose 124 H, Calcium 7.7 08/04/24 12:43: POC Glucose 114 H 08/04/24 13:43: POC Glucose 125 H 08/04/24 14:45: Sodium 134, Potassium 3.1 L, Chloride 106, Carbon Dioxide 8.0 L* , Anion Gap 20 H, BUN 10, Creatinine 0.98, Estim Creat Clear Calc 58.21, Est GFR (MDRD) Non-Af 70, BUN/Creatinine Ratio 9.9 L, Glucose 191 H, Calcium 7.7 08/04/24 14:56: POC Glucose 176 H 08/04/24 15:59: POC Glucose 172 H 08/04/24 17:08: POC Glucose 158 H 08/04/24 18:25: POC Glucose 192 H 08/04/24 18:30: Sodium 134, Potassium 2.7 L*, Chloride 106, Carbon Dioxide 10.8 L, Anion Gap 17 H, BUN 9, Creatinine 1.06, Estim Creat Clear Calc 53.82, Est GFR (MDRD) Non-Af 64, BUN/Creatinine Ratio 8.3 L, Glucose 210 H, Calcium 7.9 08/04/24 19:06: POC Glucose 183 H 08/04/24 20:05: POC Glucose 187 H 08/04/24 21:17: POC Glucose 159 H 08/04/24 22:16: POC Glucose 178 H 08/04/24 23:15: POC Glucose 204 H 08/04/24 23:30: Sodium 132 L, Potassium 3.7, Chloride 107, Carbon Dioxide 12.1 L , Anion Gap 13, BUN 7, Creatinine 1.01, Estim Creat Clear Calc 56.48, Est GFR (MDRD) Non-Af 68, BUN/Creatinine Ratio 6.6 L, Glucose 207 H, Calcium 7.9 08/05/24 00:12: POC Glucose 167 H 08/05/24 01:11: POC Glucose 148 H 08/05/24 03:15: POC Glucose 126 H 08/05/24 04:15: WBC 9.2, RBC 4.02 L, Hgb 12.0, Hct 34.0 L, MCV 84.6, MCH 29.9, MCHC 35.3, RDW Std Deviation 41.7, RDW Coeff of Teressa 13.6, Plt Count 176, MPV 9.1, Immature Gran % (Auto) 0.400, Neut % (Auto) 62.2, Lymph % (Auto) 29.4, [place] % (Auto) 7.1, Eos % (Auto) 0.4, Baso % (Auto) 0.5, Absolute Neuts (auto) 5.7, Absolute Lymphs (auto) 2.71, Nucleated RBC % 0, Sodium 133, Potassium 2.7 L*, C hloride 109 H, Carbon Dioxide 13.9 L, Anion Gap 11, BUN 5, Creatinine 0.89, Estim Creat Clear Calc 64.10, Est GFR (MDRD) Non-Af 80, BUN/Creatinine Ratio 5.3 L, Glucose 118 H, Calcium 8.1 08/05/24 04:17: POC Glucose 115 H 08/05/24 05:25: POC Glucose 102 08/05/24 06:10: POC Glucose 81 08/05/24 07:00: POC Glucose 80 08/05/24 07:57: POC Glucose 80 08/05/24 08:00: Sodium 135, Potassium 2.8 L, Chloride 110 H, Carbon Dioxide 15.2 L, Anion Gap 10, BUN 4, Creatinine 0.81, Estim Creat Clear Calc 71.75, Est GFR (MDRD) Non-Af 88, BUN/Creatinine Ratio 5.1 L, Glucose 98, Calcium 6.8 L 08/05/24 09:29: POC Glucose 63 L 08/05/24 10:24: POC Glucose 136 H 08/05/24 10:51: POC Glucose 195 H Micro: Microbiology 08/04/24 01:59 Mucosa - Nasopharyngeal Respiratory Panel (PCR) - Final 08/04/24 03:02 Nasal Secretion MRSA (PCR) - Final Rhythm Strip Rhythm Strip: Sinus Tach Rate: 114 Ectopy: None Physical Exam Const alert, oriented x3 and no apparent distress General Appearance: cooperative HEENT normocephalic, head/scalp atraumatic, moist oral mucous membranes and oropharynx normal Eyes PERRL and EOMs intact bilaterally Neck no lymphadenopathy and supple Lymph Lymphatic: no lymphadenopathy noted and no lymphedema noted Resp normal respiratory effort, normal air movement and clear to auscultation bilaterally Cardio regular rate, regular rhythm and S1 normal heart sound GI normal to inspection, nondistended, normoactive bowel sounds, soft to palpation, non-tender and non-distended Extremity normal capillary refill, no clubbing, cyanosis or edema and no calf tenderness General Extremity: no tenderness to palpation of joints or extremities Neuro CN's II-XII intact bilaterally, no focal motor deficits and no sensory deficits noted Motor Exam: strength 5/5 throughout and general weakness Psych thought process normal and cooperative Appearance: appropriate Assessment & Plan Assessment/Plan (1) DKA (diabetic ketoacidosis): (2) UTI (urinary tract infection): (3) Acute hypokalemia: PLAN: Plan #Acute DKA * Patient is a known diabetic with insulin pump. So she is run out of insulin. She has had several recurrent admissions for DKA. * Anion gap has closed x 2. Bicarb however still low at 15.2. * On high-dose sliding scale. Insulin sliding scale. Checks ACHS. * Patient placed on NPH insulin 20 units every 8 hourly per critical care * A1c also pending. Replace electrolytes per DKA protocol. * A1C is 17.4. * #Hypokalemia: Potassium is 2.8 toeay. Will replace aggressively and monitor. #HYpocalcemia: Calcium is 6.8. Will replace and trend. #UTI: Urinalysis showed evidence of UTI. On IV ceftriaxone. Urine cultures pending #Alcoholic liver cirrhosis: * Patient continues to drink. On Lactulose and midodrine as well as Xifaxan. * Lasix held on admission as she was dehydrated from the DKA. * resume lasix #Anxiety and depression: On duloxetine and trazodone as well as amitriptyline and Xanax. #Anemia of chronic disease: Stable #Hypertension: Lasix held. #Hyperlipidemia: On statin #GERD: On PPI DVT prophylaxis: Lovenox Charges/Coding Visit Charges Inpatient E&M: 46867 Subs Hosp L2
[2024-08-05] MEDS: Pantoprazole Sodium 40 MG in 0.9% Normal Saline (100mL MB+) 100 ML 330 MG IV ×2 (13:29→22:05)
[2024-08-05] MEDS: DULoxetine Hcl 60 MG Capsule PO (13:44)
[2024-08-05] MEDS: traZODone 50 MG Tablet 25 MG PO (13:45)
[2024-08-05] MEDS: Na Biphos/Potassium Phosphate PACKET 1 PACKET PO ×2 (13:46→22:09)
[2024-08-05] MEDS: Enoxaparin 40 MG/0.4 ML Syringe SC (13:46)
[2024-08-05] MEDS: Potassium Chloride Oral Tablet 20 MEQ 40 MEQ PO (13:46)
[2024-08-05] MEDS: rifAXIMin 550 MG Tablet PO ×2 (13:47→22:10)
[2024-08-05 14:15] LABS: Bedside Glucose 343 mg/dL (74-106)
[2024-08-05] MEDS: Calcium Gluconate IV 2 GM in 0.9% Normal Saline (100mL Bag) 100 ML IV (17:00)
[2024-08-05 17:33] LABS: Bedside Glucose 345 mg/dL (74-106)
[2024-08-05] MEDS: TITRATION PARAMETER CHANGE 1 EACH IV (18:37)
[2024-08-05] MEDS: Insulin Lispro 100 UNIT in 0.9% Normal Saline (100mL Bag) 99 ML CONT INF (18:39)
[2024-08-05 19:00] LABS: Bedside Glucose 321 mg/dL (74-106)
[2024-08-05 20:17] LABS: Bedside Glucose 253 mg/dL (74-106)
[2024-08-05 21:53] LABS: Bedside Glucose 253 mg/dL (74-106)
[2024-08-05] MEDS: Atorvastatin Calcium 80 MG Tablet PO (22:09)
[2024-08-05 22:30] LABS: Bedside Glucose 305 mg/dL (74-106)
[2024-08-05] MEDS: Ceftriaxone 1 GM/50 ML BAG IV (22:55)
[2024-08-05 22:57] LABS: Anion Gap 11 (5-15); BUN 3 mg/dL (4-19); BUN/Creat Ratio 3.6 RATIO (10-20); Calcium,Total 9.1 mg/dL (7.6-11.0); Carbon Dioxide 15.5 mmol/L (21.0-32.0); Chloride 109 mmol/L (98-108); Creatinine, Serum 0.78 mg/dL (0.70-1.20); EST Glomerular Filtration Rate 93 (>60); Estimated Creatinine Clearance 74.51 ml/min (50-250); Glucose 304 mg/dL (70-99); Potassium 3.4 mmol/L (3.3-5.1); Sodium Level 136 mmol/L (133-145)
[2024-08-06] VITALS (15 sets, daily range): BP systolic 110–158; BP diastolic 68–98; PULSE 70–92; RESP 13–22; TEMP 36.8–37.1; O2SAT 94–100; BMI 19.0
[2024-08-06 00:06] LABS: Bedside Glucose 284 mg/dL (74-106)
[2024-08-06] MEDS: ALPRAZolam 0.25 MG Tablet PO (00:07)
[2024-08-06 00:23] LABS: Bedside Glucose 249 mg/dL (74-106)
--- NOTE | 2024-08-06 00:23 | PCM.HOSP.N ---
Hospitalist Note Patient per review with staff recently went back into DKA, was placed on a continuous unchanging insulin drip and then also NPH regimen but allowed a diet. Given her lability will make NPO, d/c the NPH and continous unchanging insulin drip and restart the insulin drip per DKA order set. BMP with gap closed but CO2 still not >18, will continue serial BMP and maintain this status until appropriate or at discretion of Dr. Marte ICU in AM.
[2024-08-06] MEDS: Insulin Lispro 100 UNIT in 0.9% Normal Saline (100mL Bag) 99 ML CONT INF (01:12)
[2024-08-06 01:32] LABS: Bedside Glucose 255 mg/dL (74-106)
[2024-08-06 02:30] LABS: Bedside Glucose 255 mg/dL (74-106)
[2024-08-06 02:51] LABS: Anion Gap 11 (5-15); BUN 3 mg/dL (4-19); BUN/Creat Ratio 3.8 RATIO (10-20); Carbon Dioxide 17.6 mmol/L (21.0-32.0); Chloride 108 mmol/L (98-108); EST Glomerular Filtration Rate 106 (>60); Estimated Creatinine Clearance 83.03 ml/min (50-250); Glucose 269 mg/dL (70-99); Potassium 3.4 mmol/L (3.3-5.1); Sodium Level 136 mmol/L (133-145)
[2024-08-06 03:35] LABS: Bedside Glucose 254 mg/dL (74-106)
[2024-08-06 04:32] LABS: Bedside Glucose 231 mg/dL (74-106)
[2024-08-06 05:29] LABS: Bedside Glucose 213 mg/dL (74-106)
[2024-08-06] MEDS: Midodrine HCl 5 MG Tablet 10 MG PO ×2 (06:13→13:22)
[2024-08-06] MEDS: Gabapentin 300 MG Capsule PO ×2 (06:13→13:29)
[2024-08-06] MEDS: Lactulose 20 GM/30 ML UDC PO ×2 (06:13→13:22)
[2024-08-06 06:23] LABS: Absolute Lymphocyte Count 2.52 X10^3/uL (0.83-4.51); Absolute Neutrophil Count 1.8 X10^3/uL (2.0-7.7); Basophil# 0.02 X10^3/uL; Basophil% 0.4 % (0-1); Eosinophil# 0.08 X10^3/uL; Eosinophils% 1.7 % (0-5); Hematocrit 32.7 % (37-47); Hemoglobin 11.4 g/dL (12.0-15.0); Lymphocyte # 2.52 X10^3/ul (0.83-4.51); Lymphocyte % 53.3 % (19-41); Mean Corp Hgb Conc 34.9 g/dL (32-36); Mean Corpuscular Hgb 30.2 pg (27.0-32.0); Mean Corpuscular Volume 86.7 fL (81-99); Mean Platelet Vol. 9.8 fl (6.2-12.0); Monocyte# 0.32 X10^3/uL; Monocyte% 6.8 % (0-10); NRBC Flagged by Analyzer 0.6 % (0-5); Neutrophil # 1.76 X10^3/uL (2.7-7.7); Neutrophil % 37.2 % (47-70); Platelet Count 145 K/mm3 (150-450); RBC Distribution Width CV 14.1 % (11.6-14.6); RBC Distribution Width SD 44.7 fl (35.1-43.9); Red Blood Count 3.77 M/mm3 (4.2-5.4); White Blood Count 4.7 K/mm3 (4.4-11.0)
[2024-08-06 06:29] LABS: Bedside Glucose 202 mg/dL (74-106)
[2024-08-06 06:59] LABS: Anion Gap 9 (5-15); BUN 2 mg/dL (4-19); BUN/Creat Ratio 3.8 RATIO (10-20); Calcium,Total 8.3 mg/dL (7.6-11.0); Carbon Dioxide 17.5 mmol/L (21.0-32.0); Chloride 111 mmol/L (98-108); Creatinine, Serum 0.63 mg/dL (0.70-1.20); EST Glomerular Filtration Rate 109 (>60); Glucose 217 mg/dL (70-99); Potassium 2.8 mmol/L (3.3-5.1); Sodium Level 138 mmol/L (133-145)
--- NOTE | 2024-08-06 07:11 | NURSING ---
insulin drip was off for approx 30 eulogio mins while trying to get blood, so insulin was not increases at 0700 because of that
--- NOTE | 2024-08-06 07:21 | PCM.PN.HOSP ---
Reason for Visit Reason for Visit: Diagnoses Type 2 diabetes mellitus with ketoacidosis without coma (08/04/24) Hypokalemia (08/04/24) Urinary tract infection, site not specified (08/04/24) Subjective Subjective Patient feeling better.Was placed on insulin drip last night. Objective Data Objective Data Vital Signs: Vital Signs Temp Pulse Resp BP Pulse Ox O2 Del Method 36.8 C 79 22 H 119/76 94 Room Air 08/06/24 04:00 08/06/24 06:00 08/06/24 06:00 08/06/24 06:00 08/06/24 06:00 08/06/24 06:00 Oxygen Delivery Method Room Air Weight: 53.6 kg Body Mass Index (BMI) 19.0 Intake & Output: Intake and Output for Last 24 Hours 08/04/24 08/06/24 08/06/24 23:59 00:59 23:59 Intake Total 6542.80 / 6542.80 2985.14 / 3785.14 818.50 / 818.50 Output Total 900 / 900 2000 / 3000 1000 / 1000 Balance 5642.80 / 5642.80 985.14 / 785.14 -181.50 / -181.50 Medical Nutrition Assessment Dietitian: Malnutrition Criteria Met Start: 08/04/24 14:21 Freq: Status: Active Protocol: Document 08/04/24 14:21 RMA (Rec: 08/04/24 14:21 RMA [id number]) Nutrition Malnutrition Evidence of Yes Malnutrition Exists Malnutrition (severe Acute Illness/Injury,Chronic ): Evidenced By Suboptimal Energy Intake (Severe),Weight Loss (Severe), Physical Changes (Moderate) Clinical Problem Chronic Disease or Condition Related Malnutrition Etiology severe protein-calorie malnutrition in the context of chronic disease related to poor glycemic control and inadequate oral intake Signs/Symptoms as evidenced by unintentional weight loss ~20% x 6 months, BMI 18.9, moderate muscle and fat wasting in the clavicle, face, arms and legs and PO meeting less than 75% estimated nutrition needs x 6 months; currently NPO due to insulin infusion Status Active Problem Recommendation Dietitian Recommend advance diet as tolerated to liberalized Recommendations/ consistent carbohydrate; no caloric restrictions. Changes Recommend order 120mL ensure plus HP 4 times per day w/ mepdass. Pt would greatly benefit from ongoing diet counseling with out-pt RD when ready for lifestyle change and dietary compliance. Lab / Micro Data 08/06/24 06:05 08/06/24 06:05 Labs: Laboratory Results - last 24 hr 08/05/24 07:00: POC Glucose 80 08/05/24 07:57: POC Glucose 80 08/05/24 08:00: Sodium 135, Potassium 2.8 L, Chloride 110 H, Carbon Dioxide 15.2 L, Anion Gap 10, BUN 4, Creatinine 0.81, Estim Creat Clear Calc 71.75, Est GFR (MDRD) Non-Af 88, BUN/Creatinine Ratio 5.1 L, Glucose 98, Calcium 6.8 L 08/05/24 09:29: POC Glucose 63 L 08/05/24 10:24: POC Glucose 136 H 08/05/24 10:51: POC Glucose 195 H 08/05/24 13:53: POC Glucose 343 H 08/05/24 16:58: POC Glucose 345 H 08/05/24 18:34: POC Glucose 321 H 08/05/24 19:56: POC Glucose 253 H 08/05/24 21:06: POC Glucose 253 H 08/05/24 21:59: POC Glucose 305 H 08/05/24 22:00: Sodium 136, Potassium 3.4, Chloride 109 H, Carbon Dioxide 15.5 L, Anion Gap 11, BUN 3 L, Creatinine 0.78, Estim Creat Clear Calc 74.51, Est GFR (MDRD) Non-Af 93, BUN/Creatinine Ratio 3.6 L, Glucose 304 H, Calcium 9.1 08/05/24 22:57: POC Glucose 284 H 08/06/24 00:05: POC Glucose 249 H 08/06/24 01:11: POC Glucose 255 H 08/06/24 02:10: Sodium 136, Potassium 3.4, Chloride 108, Carbon Dioxide 17.6 L, Anion Gap 11, BUN 3 L, Creatinine 0.70, Estim Creat Clear Calc 83.03, Est GFR (MDRD) Non-Af 106, BUN/Creatinine Ratio 3.8 L, Glucose 269 H, Calcium 9.0 08/06/24 02:11: POC Glucose 255 H 08/06/24 03:12: POC Glucose 254 H 08/06/24 04:14: POC Glucose 231 H 08/06/24 05:09: POC Glucose 213 H 08/06/24 06:05: WBC 4.7, RBC 3.77 L, Hgb 11.4 L, Hct 32.7 L, MCV 86.7, MCH 30.2, MCHC 34.9, RDW Std Deviation 44.7 H, RDW Coeff of Teressa 14.1, Plt Count 145 L, MPV 9.8, Immature Gran % (Auto) 0.600, Neut % (Auto) 37.2 L, Lymph % (Auto) 53.3 H, [place] % (Auto) 6.8, Eos % (Auto) 1.7, Baso % (Auto) 0.4, Absolute Neuts (auto) 1.8 L, Absolute Lymphs (auto) 2.52, Nucleated RBC % 0.6, Sodium 138, Potassium 2.8 L, Chloride 111 H, Carbon Dioxide 17.5 L, Anion Gap 9, BUN 2 L, Creatinine 0.63 L, Estim Creat Clear Calc 91.40, Est GFR (MDRD) Non-Af 109, BUN/Creatinine Ratio 3.8 L, Glucose 217 H, Calcium 8.3 08/06/24 06:08: POC Glucose 202 H Micro: Microbiology 08/03/24 23:15 Interface Orders Urine Culture - Preliminary Presumptive C albicans 08/04/24 01:59 Mucosa - Nasopharyngeal Respiratory Panel (PCR) - Final 08/04/24 03:02 Nasal Secretion MRSA (PCR) - Final Rhythm Strip Rhythm Strip: Sinus Tach Rate: 114 Ectopy: None Physical Exam Const alert and no apparent distress HEENT head/scalp atraumatic and moist oral mucous membranes Assessment & Plan Assessment/Plan (1) DKA (diabetic ketoacidosis): PLAN: DM type 1.5. Had been on insulin gtt then transitioned back to NPH and lispro. Placed back on insulin gtt for concern of repeat DKA last night despite anion gap remaining closed. a1c 17.4. So, pt clearly non-compliant with insulin regimen. Will discontinue the insulin drip as is unclear if the patient even had an anion gap last night. And patient plans to resume her insulin pump at home. Patient states that she was in a program for an OPI. Previously she was in assisted and a transfer to another program. She will not return there upon discharge and go home. Patient will resume her insulin pump at home. Plan is to give her a dose of NPH and discontinue the insulin pump and then for her to get home and then resume her insulin pump. Patient has a Dexcom monitor at home. Advised patient to follow-up with Dr. Talavera with endocrinology in regards to further optimizing her glucose as patient states that her glucose typically runs in the 200s. PLAN: Plan Abdnormal urinalysis. culture growing out C. albicans. DC ceftriaxone. VTE prophylaxis: [facility].
[2024-08-06 07:24] LABS: Bedside Glucose 218 mg/dL (74-106)
[2024-08-06] MEDS: 0.9% Saline Lock 10 ML Syringe IV (08:28)
[2024-08-06] MEDS: Potassium Chloride 10mEq/100mL 10 MEQ/100 ML IV.SOLN. 100 MEQ IV BOLUS ×4 (08:29→12:52)
[2024-08-06 08:35] LABS: Bedside Glucose 211 mg/dL (74-106)
[2024-08-06 09:32] LABS: Bedside Glucose 200 mg/dL (74-106)
[2024-08-06] MEDS: 0.9% Normal Saline (100mL Bag) 100 ML 15 ML IV (09:42)
[2024-08-06 10:26] LABS: Magnesium 1.5 mg/dL (1.5-2.2)
[2024-08-06 10:26] LABS: Bedside Glucose 191 mg/dL (74-106)
--- NOTE | 2024-08-06 10:28 | DS.PCM_ITS ---
Providers Date of Admission: 08/04/24 Primary Care Physician: Dr. Valerie Mullins MD Consultations 08/04/24 02:45 Consult: Aircraft Motor Mechanic / Pulmonary Medicine Routine Consulting Provider: Intensivists/Pulmonary Med Reason for Consult: DKA, UTI EMERGENT Consult: No MD Notified: Yes Date Notified: 08/04/24 Time Notified: 02:50 Method of Notification: Text Reason For Visit: DKA, UTI Diagnosis Discharge Diagnosis (1) DKA (diabetic ketoacidosis): Status: Acute Code(s): E11.10 - Type 2 diabetes mellitus with ketoacidosis without coma Plan: DM type 1.5. Had been on insulin gtt then transitioned back to NPH and lispro. Placed back on insulin gtt for concern of repeat DKA last night despite anion gap remaining closed. a1c 17.4. So, pt clearly non-compliant with insulin regimen. Will discontinue the insulin drip as is unclear if the patient even had an anion gap last night. And patient plans to resume her insulin pump at home. Patient states that she was in a program for an OPI. Previously she was in prison and a transfer to another program. She will not return there upon discharge and go home. Patient will resume her insulin pump at home. Plan is to give her a dose of NPH and discontinue the insulin pump and then for her to get home and then resume her insulin pump. Patient has a Dexcom monitor at home. Advised patient to follow-up with Dr. Talavera with endocrinology in regards to further optimizing her glucose as patient states that her glucose typically runs in the 200s. Plan Abdnormal urinalysis. * culture growing out C. albicans. [place] ceftriaxone. Hypokalemia/Hypomagnesemia: replace VTE prophylaxis: [facility]. [place] home. Medications at Discharge Home Medications duloxetine 60 mg capsule,delayed release 60 mg PO DAILY depression 12/10/21 ondansetron 4 mg disintegrating tablet 4 mg PO Q8H PRN nausea and vomiting #14 tabs 02/09/22 rifaximin 550 mg tablet (Xifaxan) 550 mg PO BID see doctor #60 tabs 02/20/22 midodrine 5 mg tablet 10 mg PO TID blood pressure 03/10/22 lancets #100 ea 05/02/22 needle (disp) #500 ea 05/02/22 lactulose 10 gram/15 mL oral solution 30 ml PO TID cirrhosis 08/02/22 furosemide 20 mg tablet (Lasix) 40 mg PO DAILY diuretic 08/15/22 blood sugar diagnostic (OneTouch Ultra Test strips) #100 ea 10/07/22 blood-glucose meter (OneTouch Ultra2 Meter) #1 ea 10/07/22 Omnipod 5 G6 Intro Kit (Gen 5) subcutaneous cartridge with controller (insulin pump cart,auto,BT-cntr) #1 ea 11/16/22 estradiol 0.01% (0.1 mg/gram) vaginal cream 1 g vaginal 2XW yeast 11/07/23 blood-glucose transmitter (Dexcom G6 Transmitter device) #1 ea 01/12/24 alprazolam 0.25 mg tablet (Xanax) 0.25 mg PO BID PRN PRN anxiety 03/15/24 amitriptyline 10 mg tablet 10 mg PO QDAY see doctor 03/15/24 gabapentin 300 mg capsule 300 mg PO TID see doctor 03/15/24 trazodone 50 mg tablet 25 mg PO QDAY sleep 03/15/24 Dexcom G6 Sensor (blood-glucose sensor) #3 ea 04/02/24 blood-glucose transmitter (Dexcom G6 Transmitter device) #1 ea 04/02/24 insulin aspart U-100 100 unit/mL subcutaneous solution (Novolog U-100 Insulin aspart) 100 unit continuous subcutaneous infusion .continuous pump #90 mL 04/02/24 insulin pump cart,automated,BT #15 ea 04/02/24 insulin lispro 100 unit/mL subcutaneous solution (Humalog U-100 Insulin) 80 unit (0.8 mL) subcut DAILY #70 mL 04/17/24 atorvastatin 80 mg tablet 80 mg PO QHS #90 tabs 06/03/24 potassium chloride 20 mEq tablet,extended release(part/cryst) 40 meq (2 x 20 mEq) PO DAILY #30 tabs 06/03/24 potassium, sodium phosphates 280 mg-160 mg-250 mg oral powder packet 1 packet PO BID #60 ea 06/03/24 Hospital Course Operations None Procedures None Summary of Care Provided Minutes Spent on Discharge: 32 Medical Records Data Medical Nutrition Assessment Dietitian: Malnutrition Criteria Met Start: 08/04/24 14:21 Freq: Status: Active Protocol: Document 08/04/24 14:21 RMA (Rec: 08/04/24 14:21 RMA [id number]) Nutrition Malnutrition Evidence of Yes Malnutrition Exists Malnutrition (severe Acute Illness/Injury,Chronic ): Evidenced By Suboptimal Energy Intake (Severe),Weight Loss (Severe), Physical Changes (Moderate) Clinical Problem Chronic Disease or Condition Related Malnutrition Etiology severe protein-calorie malnutrition in the context of chronic disease related to poor glycemic control and inadequate oral intake Signs/Symptoms as evidenced by unintentional weight loss ~20% x 6 months, BMI 18.9, moderate muscle and fat wasting in the clavicle, face, arms and legs and PO meeting less than 75% estimated nutrition needs x 6 months; currently NPO due to insulin infusion Status Active Problem Recommendation Dietitian Recommend advance diet as tolerated to liberalized Recommendations/ consistent carbohydrate; no caloric restrictions. Changes Recommend order 120mL ensure plus HP 4 times per day w/ mepdass. Pt would greatly benefit from ongoing diet counseling with out-pt RD when ready for lifestyle change and dietary compliance. Weight / BMI Weight Weight: 53.6 kg Body Mass Index (BMI) 19.0 ABG / Lab / Microbiology Data 08/06/24 06:05 08/06/24 06:05 Laboratory: Laboratory Results - last 24 hr 08/05/24 10:24: POC Glucose 136 H 08/05/24 10:51: POC Glucose 195 H 08/05/24 13:53: POC Glucose 343 H 08/05/24 16:58: POC Glucose 345 H 08/05/24 18:34: POC Glucose 321 H 08/05/24 19:56: POC Glucose 253 H 08/05/24 21:06: POC Glucose 253 H 08/05/24 21:59: POC Glucose 305 H 08/05/24 22:00: Sodium 136, Potassium 3.4, Chloride 109 H, Carbon Dioxide 15.5 L , Anion Gap 11, BUN 3 L, Creatinine 0.78, Estim Creat Clear Calc 74.51, Est GFR (MDRD) Non-Af 93, BUN/Creatinine Ratio 3.6 L, Glucose 304 H, Calcium 9.1 08/05/24 22:57: POC Glucose 284 H 08/06/24 00:05: POC Glucose 249 H 08/06/24 01:11: POC Glucose 255 H 08/06/24 02:10: Sodium 136, Potassium 3.4, Chloride 108, Carbon Dioxide 17.6 L, Anion Gap 11, BUN 3 L, Creatinine 0.70, Estim Creat Clear Calc 83.03, Est GFR (MDRD) Non-Af 106, BUN/Creatinine Ratio 3.8 L, Glucose 269 H, Calcium 9.0 08/06/24 02:11: POC Glucose 255 H 08/06/24 03:12: POC Glucose 254 H 08/06/24 04:14: POC Glucose 231 H 08/06/24 05:09: POC Glucose 213 H 08/06/24 06:05: WBC 4.7, RBC 3.77 L, Hgb 11.4 L, Hct 32.7 L, MCV 86.7, MCH 30.2, MCHC 34.9, RDW Std Deviation 44.7 H, RDW Coeff of Teressa 14.1, Plt Count 145 L, MPV 9.8, Immature Gran % (Auto) 0.600, Neut % (Auto) 37.2 L, Lymph % (Auto) 53.3 H, Smyth % (Auto) 6.8, Eos % (Auto) 1.7, Baso % (Auto) 0.4, Absolute Neuts (auto) 1.8 L, Absolute Lymphs (auto) 2.52, Nucleated RBC % 0.6, Sodium 138, Potassium 2.8 L, Chloride 111 H, Carbon Dioxide 17.5 L, Anion Gap 9, BUN 2 L, Creatinine 0.63 L, Estim Creat Clear Calc 91.40, Est GFR (MDRD) Non-Af 109, BUN/Creatinine Ratio 3.8 L, Glucose 217 H, Calcium 8.3, Magnesium 1.5 08/06/24 06:08: POC Glucose 202 H 08/06/24 07:06: POC Glucose 218 H 08/06/24 08:09: POC Glucose 211 H 08/06/24 09:09: POC Glucose 200 H 08/06/24 10:08: POC Glucose 191 H Microbiology: Microbiology 08/03/24 23:15 Interface Orders Urine Culture - Final Presumptive C albicans Presumptive Lactobacillus sp. 08/04/24 01:59 Mucosa - Nasopharyngeal Respiratory Panel (PCR) - Final 08/04/24 03:02 Nasal Secretion MRSA (PCR) - Final D/C Instructions Discharge Diet: 2000 Calorie Control Diet DC O2, CPAP, BIPAP Needs Home O2 Discharge instructions: No Meaningful Use Info Meaningful Use Meaningful Use Diagnoses (Choose all that apply): None applicable Ischemic Stroke Statin Dosing Therapy Reference: STATIN DOSE THERAPY REFERENCE: * Patients > 75 years receive moderate or high dose statin therapy. * Patients 75 years or YOUNGER should receive HIGH intensity statin dose unless contraindicated. You will be required to document reason for non-treatment if statin daily dose does not meet guidelines. HIGH DOSE STATIN THERAPY DAILY Atorvastatin > than or = to 40 mg Rosuvastatin > than or = to 20 mg Amlodipine + Atorvastatin > than or = to 2.5/40 mg Ezetimibe + Simvastatin 10/80 mg Simvastatin 80mg Discharge Plan Admission Admit Date/Time: 08/04/24 01:13 Primary Reason for Your Visit: DARIUSA Attending Provider: Raymond Burk Primary Care Provider: Valerie Mullins Consulting Providers: Caleb Solares; Frank Newman; Jimmy Dougherty; Bebeto Marte; Sai Segura; Zaheer Kowalski; Josias Troy; Debra Dawson; Poli Maldonado; Ramsey Son; Jamye Chawla; Dena Woodall; Abiodun Salmeron; Soledad Manley; Tomasz,Wilfredo; iKet Oglesby; Mike Dickey; Steven Aburto; David Moyer; Jonny Olson; Marin Jackson; Karlo Babin; Marty Cross; Ariane Holloway; Cielo Roque Instructions Additional Instructions / Restrictions: Follow up with Dr. Talavera. Discharge Orders/Prescriptions Prescriptions: Continued (DME) Omnipod 5 G6 Intro Kit (Gen 5) Cartridge See Rx Instructions .Route Qty: 1 0RF Rx Instructions: As directed estradiol 0.01 % (0.1 mg/gram) cream 1 g vaginal 2XW trazodone 50 mg tablet 25 mg PO QDAY alprazolam [Xanax] 0.25 mg tablet 0.25 mg PO BID PRN PRN (Reason: anxiety) amitriptyline 10 mg tablet 10 mg PO QDAY gabapentin 300 mg capsule 300 mg PO TID duloxetine 60 mg capsule,delayed release(DR/EC) 60 mg PO DAILY Patient Comments: take 1 capsule by mouth once daily ondansetron 4 mg tablet,disintegrating 4 mg PO Q8H PRN (Reason: nausea and vomiting) Qty: 14 0RF Xifaxan 550 mg Tablet 550 mg PO BID Qty: 60 1RF midodrine 5 mg tablet 10 mg PO TID Patient Comments: TAKE TWO TABLETS (10 MG)CBY MOUTH 3 TIMES A DAY WITH MEALS lactulose 10 gram/15 mL solution 30 ml PO TID Patient Comments: TAKE 30 ML BY MOUTH 4CTIMES A DAY (DME) lancets Misc See Rx Instructions .Route Qty: 100 0RF Rx Instructions: As directed (DME) needle (disp) Needle See Rx Instructions .Route Qty: 500 0RF Rx Instructions: As directed furosemide [Lasix] 20 mg tablet 40 mg PO DAILY atorvastatin 80 mg Tablet 80 mg PO QHS Qty: 90 0RF potassium chloride 20 mEq Tablet,Er Particles/Crystals 40 meq PO DAILY Qty: 30 0RF potassium, sodium phosphates 280-160-250 mg Powder In Packet 1 packet PO BID Qty: 60 0RF (DME) blood-glucose meter [OneTouch Ultra2 Meter] [facility] See Rx Instructions .Route Qty: 1 0RF Rx Instructions: As directed (DME) OneTouch Ultra Test Strip See Rx Instructions .Route Qty: 100 5RF Rx Instructions: TID (DME) Dexcom G6 Transmitter Device See Rx Instructions .Route Qty: 1 0RF Rx Instructions: x1 (DME) Dexcom G6 Transmitter Device See Rx Instructions .Route Qty: 1 3RF Rx Instructions: As directed (DME) Dexcom G6 Sensor Device See Rx Instructions .Route Qty: 3 6RF Rx Instructions: As directed insulin aspart U-100 [Novolog U-100 Insulin aspart] 100 unit/mL solution 100 unit continuous subcutaneous infusion .continuous Qty: 90 5RF (DME) insulin pump cart,automated,BT Cartridge See Rx Instructions .Route Qty: 15 6RF Rx Instructions: 1 pod q 48 hours insulin lispro [Humalog U-100 Insulin] 100 unit/mL solution 80 unit subcut DAILY Qty: 70 1RF Referrals / Follow Up: Valerie Mullins MD [Primary Care Provider] - Disposition Disposition (needs filled in before D/C Order can be placed): Home, Self Care Charges/Coding Visit Charges Inpatient E&M: 74691 Disch Hosp >30min
[2024-08-06] MEDS: Enoxaparin 40 MG/0.4 ML Syringe SC (10:34)
[2024-08-06] MEDS: Furosemide 40 MG Tablet PO (10:35)
[2024-08-06] MEDS: traZODone 50 MG Tablet 25 MG PO (10:36)
[2024-08-06] MEDS: DULoxetine Hcl 60 MG Capsule PO (10:38)
[2024-08-06] MEDS: Potassium Chloride Oral Tablet 20 MEQ 40 MEQ PO (10:38)
[2024-08-06] MEDS: Na Biphos/Potassium Phosphate PACKET 1 PACKET PO (10:39)
[2024-08-06] MEDS: rifAXIMin 550 MG Tablet PO (10:39)
[2024-08-06] MEDS: Amitriptyline 10 MG Tablet PO (10:39)
[2024-08-06] MEDS: Insulin NPH Human 100 UNITS/ML PEN 15 UNITS SC (10:40)
--- NOTE | 2024-08-06 10:56 | CASEMGMT ---
Patient has order for discharge. RN CM in to discuss needs at discharge. Patient states that she has insulin for her pump at home and sensors for her CGM. Patient is independent in the room. Patient denies needs or help at discharge. Patient state she is trying to get ahold of her mother for transport, RN LISS updated ICU medical secretary teacher to inquire about possible [facility] for at discharge. Patient had no further questions or concerns.
[2024-08-06] MEDS: Pantoprazole Sodium 40 MG in 0.9% Normal Saline (100mL MB+) 100 ML 330 MG IV (11:15)
[2024-08-06] MEDS: Magnesium Sulfate 2 GM in Dextrose 5%-Water (100mL Bag) 100 ML IV (11:16)
[2024-08-06] MEDS: FLUCONAZOLE 150 MG TABLET PO (11:32)
[2024-08-06 12:21] LABS: Bedside Glucose 215 mg/dL (74-106)
[2024-08-06] MEDS: FLU VACC 2024-25(6MOS UP)/PF 45 MCG/0.5 ML SYRINGE IM (14:48)
== END 2024-08-06 14:45 | disposition home or self-care (01) | DRG 638 ==
LOC: ED 08-04 00:02 → ICU 08-04 01:28
PROVIDERS: Internal Medicine Critical Care Medicine; Internal Medicine Pulmonary Disease; Student in an Organized Health Care Education/Training Program; Admitting Provider Family Medicine; Emergency Provider Emergency Medicine; PCP Internal Medicine
DX: E10.10 Type 1 diabetes mellitus with ketoacidosis without coma (principal); K86.1 Other chronic pancreatitis; N39.0 Urinary tract infection, site not specified; D63.8 Anemia in other chronic diseases classified elsewhere; K70.30 Alcoholic cirrhosis of liver without ascites; E10.22 Type 1 diabetes mellitus with diabetic chronic kidney disease; I12.9 Hypertensive chronic kidney disease with stage 1 through stage 4 chronic kidney disease, or unspecified chronic kidney disease; F32.A Depression, unspecified; E10.42 Type 1 diabetes mellitus with diabetic polyneuropathy; E87.6 Hypokalemia; Z79.4 Long term (current) use of insulin; N18.2 Chronic kidney disease, stage 2 (mild); K21.9 Gastro-esophageal reflux disease without esophagitis; F41.9 Anxiety disorder, unspecified; E78.5 Hyperlipidemia, unspecified; Z87.891 Personal history of nicotine dependence; Z86.16 Personal history of COVID-19; Z79.899 Other long term (current) drug therapy; Z96.41 Presence of insulin pump (external) (internal)
CPT/HCPCS: 80048; 80053; 80076; 81001; 82010; 82803; 82962; 83036; 83605; 83735; 84100; 84145; 84703; 85025; 87086; 87088; 87633; 87641; 90656; 93005; 97802; 99285; A4216; J0612; J0696; J2405

== ENCOUNTER 2024-08-12 18:46 | Emergency (ER) | payer MEDICARE, SELFPAY ==
[2024-08-12] VITALS (12 sets, daily range): BP systolic 104–129; BP diastolic 57–81; PULSE 65–108; RESP 12–18; TEMP 36.8–36.9; O2SAT 92–98; BMI 20.5
--- NOTE | 2024-08-12 19:10 | EX.ED.DYSGE1 ---
HPI History of Present Illness Chief Complaint: General Illness Informant: patient Onset/Context/Timing Onset: Today Narrative Narrative: 48-year-old female extensive past medical history of insulin-dependent diabetes, DKA, hypertension, alcohol abuse, liver cirrhosis. Today was in a [place] restaurant said she only had half a tomy and fell asleep. Squad was called and she was brought in the emergency department. States about 1 to 2 weeks ago she was hospitalized for DKA. She denies any recent illness. She does have chronic diarrhea from lactulose she takes for cirrhosis. She denies recent fever. No head injury. Prior similar symptoms: No Recent Illness/Hospitalization: Yes PFSH [facility] Medical History Insulin pump titration Presence of insulin pump Vitamin D deficiency Diabetes 1.5, managed as type 1 HTN (hypertension) Diabetes Uncontrolled depression Chronic alcohol abuse Lumbar compression fracture Insufficiency fracture Lumbar spondylolysis Impingement of right shoulder Herniated nucleus pulposus, L5-S1 Facet syndrome, lumbar Compression fracture of L1 lumbar vertebra History of cirrhosis of liver History of diabetes mellitus Hepatomegaly Peripheral neuropathy Diabetes type 2, controlled Anemia Elevated bilirubin Bleeding tendency Post-menopausal Current use of insulin Irritable bowel Back pain due to injury High cholesterol History of stress test Alcohol abuse Anxiety Diabetes GERD (gastroesophageal reflux disease) Cirrhosis Malnutrition Closed head injury SBP (spontaneous bacterial peritonitis) Hypertension Alcoholic cirrhosis of liver with ascites COVID-19 H. pylori infection Post-menopausal Pancreatitis Asthma Smoker Migraines Chronic diarrhea Recurrent acute pancreatitis Fatty liver Gastritis and duodenitis Breast implant status Anxiety History of alcohol abuse Transaminitis Nicotine abuse Alcoholism HLD (hyperlipidemia) Home Medications ?Medication ?Instructions ?Recorded ?Last Taken ?Type duloxetine 60 mg capsule,delayed 60 mg PO DAILY depression 12/10/21 12/03/23 History release ondansetron 4 mg disintegrating 4 mg PO Q8H PRN nausea and 02/09/22 12/03/23 Rx tablet vomiting #14 tabs rifaximin 550 mg tablet (Xifaxan) 550 mg PO BID see doctor #60 tabs 02/20/22 12/03/23 Rx midodrine 5 mg tablet 10 mg PO TID blood pressure 03/10/22 12/03/23 History lancets #100 ea 05/02/22 Unknown Rx needle (disp) #500 ea 05/02/22 Unknown Rx lactulose 10 gram/15 mL oral 30 ml PO TID cirrhosis 08/02/22 12/03/23 History solution furosemide 20 mg tablet (Lasix) 40 mg PO DAILY diuretic 08/15/22 12/03/23 History blood sugar diagnostic (OneTouch #100 ea 10/07/22 Unknown Rx Ultra Test strips) blood-glucose meter (OneTouch #1 ea 10/07/22 Unknown Rx Ultra2 Meter) Omnipod 5 G6 Intro Kit (Gen 5) #1 ea 11/16/22 Unknown Rx subcutaneous cartridge with controller (insulin pump cart,auto,BT-cntr) estradiol 0.01% (0.1 mg/gram) 1 g vaginal 2XW yeast 11/07/23 Unknown History vaginal cream blood-glucose transmitter (Dexcom #1 ea 01/12/24 Unknown Rx G6 Transmitter device) alprazolam 0.25 mg tablet (Xanax) 0.25 mg PO BID PRN PRN anxiety 03/15/24 Unknown History gabapentin 300 mg capsule 300 mg PO TID see doctor 03/15/24 Unknown History trazodone 50 mg tablet 25 mg PO QDAY sleep 03/15/24 Unknown History Dexcom G6 Sensor (blood-glucose #3 ea 04/02/24 Unknown Rx sensor) blood-glucose transmitter (Dexcom #1 ea 04/02/24 Unknown Rx G6 Transmitter device) insulin aspart U-100 100 unit/mL 100 unit continuous subcutaneous 04/02/24 Unknown Rx subcutaneous solution (Novolog infusion .continuous pump #90 mL U-100 Insulin aspart) insulin pump cart,automated,BT #15 ea 04/02/24 Unknown Rx insulin lispro 100 unit/mL 80 unit (0.8 mL) subcut DAILY #70 04/17/24 Unknown Rx subcutaneous solution (Humalog mL U-100 Insulin) atorvastatin 80 mg tablet 80 mg PO QHS #90 tabs 06/03/24 Unknown Rx potassium chloride 20 mEq 40 meq (2 x 20 mEq) PO DAILY #30 06/03/24 Unknown Rx tablet,extended release(part/cryst) tabs potassium, sodium phosphates 280 1 packet PO BID #60 ea 06/03/24 Unknown Rx mg-160 mg-250 mg oral powder packet amitriptyline 50 mg tablet 50 mg PO QHS 08/12/24 Unknown History hydroxyzine HCl 50 mg tablet 50 mg PO Q6H PRN PRN anxiety 08/12/24 Unknown History pantoprazole 40 mg tablet,delayed 40 mg PO DAILY 08/12/24 Unknown History release Allergy/AdvReac Type Severity Reaction Status Date / Time azithromycin (From Zithromax) AdvReac Diarrhea Verified 08/12/24 18:51 codeine AdvReac Nausea Verified 08/12/24 18:51 promethazine (From Phenergan) AdvReac Vomiting Verified 08/12/24 18:51 Family History Father Cancer Lung CA with tobacco use history. Heart disease Mother Cancer Hx breast CA. Diabetes Hypertension Other Alcoholic cirrhosis of liver with ascites Breast cancer High cholesterol Liver disease Osteoporosis Skin cancer Surgical History Previous back surgery S/P tonsillectomy and adenoidectomy Previous section H/O: knee surgery H/O breast augmentation Social History housing: other details: Recent rehab stay. Prior lived w/ 15, 16 year old children. 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 His chronic diarrhea that is not new. Constitutional Constitutional ED: Denies chills or fever(s) Eyes Eyes: Denies blurry vision ENT ENT ED: Denies ear pain Cardiovascular Cardiovascular: Denies chest pain Respiratory/Chest Respiratory/Chest: Denies cough or dyspnea Gastrointestinal Gastrointestinal: Denies abdominal pain Genitourinary Genitourinary ED: Denies dysuria Musculoskeletal Musculoskeletal: Denies arthralgias Integumentary Denies abscess Neurologic Neurologic: Denies paresthesias or weakness Psychiatric Psychiatric: Denies anxiety Endocrine Endocrinology: Denies cold intolerance Hematologic/Lymphatic Hematologic/Lymphatic: Reports none Allergic/Immunologic Allergic/Immunologic ED: Denies mouth swelling, tongue swelling or urticaria EXAM Physical Exam Narrative Exam Narrative: 48-year-old female sitting upright in bed. Vital signs are stable afebrile. She does not look septic toxic or any distress. H EENT exam pupils round react to light. Moist mucous membranes. No facial droop. No trauma to her face or scalp. Nontender. Neck nontender. Trachea midline. No lymphadenopathy. Lungs are clear to auscultation bilaterally. Heart regular rhythm rate about 95 no murmur. Chest wall and ribs are nontender. Abdomen is soft and nontender. No peritoneal signs. No distention. Patient is moving all 4 extremities. Normal signal operator strength. Normal dorsi plantarflexion. No edema. Nontender. No deformity. Back nontender no bruising. Neurologically she is awake alert. Answering questions following commands. No focal motor deficits. Const Vital Signs: 08/12/24 18:48 08/12/24 19:34 08/12/24 19:47 Temperature 98.4 F Temperature Source Oral Pulse Rate 105 H 108 H Respiratory Rate 18 18 Respiratory Effort Normal Non-Labored Respiratory Pattern Normal Blood Pressure 115/64 112/75 Blood Pressure Mean 81 87 Pulse Ox 95 94 Oxygen Delivery Method Room Air Room Air 08/12/24 20:00 08/12/24 20:33 08/12/24 20:45 Temperature Temperature Source Pulse Rate 108 H 106 H 106 H Respiratory Rate 14 16 16 Respiratory Effort Respiratory Pattern Blood Pressure 115/73 Blood Pressure Mean 87 Pulse Ox 95 Oxygen Delivery Method Room Air 08/12/24 21:00 08/12/24 21:24 08/12/24 21:24 Temperature Temperature Source Pulse Rate 108 H 107 H 107 H Respiratory Rate 16 17 17 Respiratory Effort Respiratory Pattern Blood Pressure 104/57 L 126/78 H Blood Pressure Mean 72 91 Pulse Ox 92 94 92 Oxygen Delivery Method Room Air 08/12/24 21:30 08/12/24 21:45 08/12/24 22:00 Temperature Temperature Source Pulse Rate 106 H 106 H Respiratory Rate 18 17 Respiratory Effort Respiratory Pattern Blood Pressure 129/77 H 127/75 H 120/68 Blood Pressure Mean 93 88 81 Pulse Ox 93 Oxygen Delivery Method Room Air Positive well nourished and well developed; Negative for cachectic, contractures or unkempt General Appearance ED: well developed and NAD; Negative for unkempt, cachectic, contractures, cyanotic, diaphoretic or pallor Nutritional Appearance: Negative for cachectic HEENT Reports moist mucous membranes; Denies dry mucous membranes Negative for tenderness Mouth ED: No dry mucous membranes Mouth: No dry mucous membranes Eyes PERRL and EOMs intact bilaterally General Eye ED: Negative for pale conjunctiva or scleral icterus Neck no lymphadenopathy, supple and no JVD General: Negative for tenderness Lymph Lymphatic: Negative for other Chest Wall inspection of chest normal and palpation of chest normal Resp Auscultation: Negative for rales, rhonchi, wheezes or diminished lung sounds Cardio regular rate, regular rhythm, S1 normal heart sound, S2 normal heart sound and no murmurs GI normal to inspection, nondistended, normoactive bowel sounds, non-tender, non-distended and no masses Auscultation: normoactive bowel sounds Palpation: soft; Negative for tender, guarding, mass or rebound tenderness present Back/Spine no CVA tenderness General Back: Negative for CVA tenderness Cervical Spine: Negative for cervical spine tenderness Thoracic Spine / Upper Back: Negative for thoracic spinal tenderness or paraspinal muscle tenderness Lumbar Spine / Lower Back: Negative for lumbar spinal tenderness Extremity normal to inspection General Extremety ED: Negative for edema or tenderness General Extremity: Negative for edema Neuro oriented x3 and CN's II-XII intact bilaterally Sensorium / Orientation: alert; Negative for orientation impaired, lethargic or stuporous Motor Exam: strength 5/5 throughout; Negative for general weakness or strength abnormal Psych mental status grossly normal Appearance: Negative for unkempt Attitude: No agitated Mood & Affect: Negative for depressed, anxious or tearful Skin no rashes or lesions noted and no wounds General Skin Exam: Negative for jaundice or pallor Lesions: No lesion noted Rashes: No rashes noted Trauma: Negative for abrasion Wounds: Negative for wounds noted MDM MDM MDM Narrative Medical decision making narrative: 48-year-old female history of alcohol abuse and cirrhosis and diabetes. Today was at a [place] restaurant and fell asleep. Her exam currently is benign. Screening labs and EtOH will be obtained. Rule out DKA. A liter of normal saline. Repeat exam at 9:05 PM patient doing well. Exam normal and unchanged. She and I went over her test results. Including her alcohol level. She has received a liter of fluid. She ambulated to the bathroom without any difficulty. Waiting on her beta hydroxy butyrate level. Patient doing well at 10:50 PM. She was given insulin. She is instructed to watch her blood sugars closely at night. Outpatient follow-up as needed. Consider alcohol detox. Lab Data Attestation: I reviewed the patient's lab results. Lab results narrative: CBC shows a white count of 8.2. H&H 11.3 and 33. Platelet count 294. Alcohol levels elevated to 259 consistent with acute alcohol intoxication. BGT 367. Chemistries show sodium 140 gap of 18. BUN and creatinine is 7 and 0.7. Glucose 369. Liver enzymes are normal. BHB was negative at 0.2. Labs: Laboratory Results - last 24 hr 08/12/24 08/12/24 18:57 19:17 WBC 8.2 RBC 3.77 L Hgb 11.3 L Hct 33.7 L MCV 89.4 MCH 30.0 MCHC 33.5 RDW Std Deviation 44.8 H RDW Coeff of Teressa 14.2 Plt Count 294 MPV 9.3 Immature Gran % (Auto) 0.600 Neut % (Auto) 45.0 L Lymph % (Auto) 45.9 H [place] % (Auto) 6.8 Eos % (Auto) 1.3 Baso % (Auto) 0.4 Absolute Neuts (auto) 3.7 Absolute Lymphs (auto) 3.76 Nucleated RBC % 0 Sodium 140 Potassium 3.3 Chloride 99 Carbon Dioxide 23.8 Anion Gap 18 H BUN 7 Creatinine 0.73 Estim Creat Clear Calc 84.77 Est GFR (MDRD) Non-Af 101 BUN/Creatinine Ratio 9.4 L Glucose 369 H Calcium 8.3 Total Bilirubin 0.21 AST 27 ALT 19 Alkaline Phosphatase 73 Total Protein 6.2 Albumin 3.7 Globulin 2.5 Albumin/Globulin Ratio 1.5 b-Hydroxybutyric mmol/L 0.2 Ethyl Alcohol 259.0 H POC Glucose 367 H Discharge Plan Triage Chief Complaint: General Illness ED Provider: Kristian Smith Dx/Rx/DC Orders Clinical Impression: Acute alcohol intoxication, Hyperglycemia due to diabetes mellitus, History of cirrhosis of liver Instructions: ED Diabetic Hyperglycemia, ED Alcohol Intoxication Prescriptions: No Action (DME) Omnipod 5 G6 Intro Kit (Gen 5) Cartridge See Rx Instructions .Route Qty: 1 0RF Rx Instructions: As directed estradiol 0.01 % (0.1 mg/gram) cream 1 g vaginal 2XW trazodone 50 mg tablet 25 mg PO QDAY alprazolam [Xanax] 0.25 mg tablet 0.25 mg PO BID PRN PRN (Reason: anxiety) gabapentin 300 mg capsule 300 mg PO TID duloxetine 60 mg capsule,delayed release(DR/EC) 60 mg PO DAILY Patient Comments: take 1 capsule by mouth once daily ondansetron 4 mg tablet,disintegrating 4 mg PO Q8H PRN (Reason: nausea and vomiting) Qty: 14 0RF Xifaxan 550 mg Tablet 550 mg PO BID Qty: 60 1RF midodrine 5 mg tablet 10 mg PO TID Patient Comments: TAKE TWO TABLETS (10 MG)CBY MOUTH 3 TIMES A DAY WITH MEALS lactulose 10 gram/15 mL solution 30 ml PO TID Patient Comments: TAKE 30 ML BY MOUTH 4CTIMES A DAY (DME) lancets Misc See Rx Instructions .Route Qty: 100 0RF Rx Instructions: As directed (DME) needle (disp) Needle See Rx Instructions .Route Qty: 500 0RF Rx Instructions: As directed furosemide [Lasix] 20 mg tablet 40 mg PO DAILY atorvastatin 80 mg Tablet 80 mg PO QHS Qty: 90 0RF potassium chloride 20 mEq Tablet,Er Particles/Crystals 40 meq PO DAILY Qty: 30 0RF potassium, sodium phosphates 280-160-250 mg Powder In Packet 1 packet PO BID Qty: 60 0RF hydroxyzine HCl 50 mg tablet 50 mg PO Q6H PRN PRN (Reason: anxiety) amitriptyline 50 mg tablet 50 mg PO QHS pantoprazole 40 mg tablet,delayed release (DR/EC) 40 mg PO DAILY (DME) blood-glucose meter [OneTouch Ultra2 Meter] Misc See Rx Instructions .Route Qty: 1 0RF Rx Instructions: [place] [place]Touch Ultra Test Strip See Rx Instructions .Route Qty: 100 5RF Rx Instructions: TID (DME) Dexcom G6 Transmitter Device See Rx Instructions .Route Qty: 1 0RF Rx Instructions: x1 (DME) Dexcom G6 Transmitter Device See Rx Instructions .Route Qty: 1 3RF Rx Instructions: [place] [place] Dexcom G6 Sensor Device See Rx Instructions .Route Qty: 3 6RF Rx Instructions: As directed insulin aspart U-100 [Novolog U-100 Insulin aspart] 100 unit/mL solution 100 unit continuous subcutaneous infusion .continuous Qty: 90 5RF (DME) insulin pump cart,automated,BT Cartridge See Rx Instructions .Route Qty: 15 6RF Rx Instructions: 1 pod q 48 hours insulin lispro [Humalog U-100 Insulin] 100 unit/mL solution 80 unit subcut DAILY Qty: 70 1RF Primary Care Provider: Valerie Mullins Referrals: Valerie Mullins MD [Primary Care Provider] - Activity Restrictions/Additional Instructions: Watch your blood sugars closely. Check it tonight before you go to bed. We gave you 10 units of insulin here tonight. Plenty of fluids and rest. Your alcohol level was 259 which is 3 times legal. No driving for the next 24 hours. Strongly consider inpatient alcohol detox. Print Language: Fijian
[2024-08-12] MEDS: 0.9% Normal Saline (1000mL) 1,000 ML 999 ML IV (19:12)
[2024-08-12 19:21] LABS: Absolute Lymphocyte Count 3.76 X10^3/uL (0.83-4.51); Absolute Neutrophil Count 3.7 X10^3/uL (2.0-7.7); Basophil# 0.03 X10^3/uL; Basophil% 0.4 % (0-1); Eosinophil# 0.11 X10^3/uL; Eosinophils% 1.3 % (0-5); Hematocrit 33.7 % (37-47); Hemoglobin 11.3 g/dL (12.0-15.0); Lymphocyte # 3.76 X10^3/ul (0.83-4.51); Lymphocyte % 45.9 % (19-41); Mean Corp Hgb Conc 33.5 g/dL (32-36); Mean Corpuscular Volume 89.4 fL (81-99); Mean Platelet Vol. 9.3 fl (6.2-12.0); Monocyte# 0.56 X10^3/uL; Monocyte% 6.8 % (0-10); NRBC Flagged by Analyzer 0 % (0-5); Neutrophil # 3.69 X10^3/uL (2.7-7.7); Platelet Count 294 K/mm3 (150-450); RBC Distribution Width CV 14.2 % (11.6-14.6); RBC Distribution Width SD 44.8 fl (35.1-43.9); Red Blood Count 3.77 M/mm3 (4.2-5.4); White Blood Count 8.2 K/mm3 (4.4-11.0)
[2024-08-12 19:36] LABS: Bedside Glucose 367 mg/dL (74-106)
[2024-08-12 20:50] LABS: ALB/GLOB Ratio 1.5 RATIO (0.9-2.4); AST(SGOT) 27 U/L (<=31); Alanine Aminotransfer ALT/SGPT 19 U/L (<=34); Albumin, Serum 3.7 g/dL (3.5-5.0); Alkaline Phosphatase 73 U/L (35-104); Anion Gap 18 (5-15); BUN 7 mg/dL (4-19); BUN/Creat Ratio 9.4 RATIO (10-20); Calcium,Total 8.3 mg/dL (7.6-11.0); Carbon Dioxide 23.8 mmol/L (21.0-32.0); Chloride 99 mmol/L (98-108); Creatinine, Serum 0.73 mg/dL (0.70-1.20); EST Glomerular Filtration Rate 101 (>60); Estimated Creatinine Clearance 84.77 ml/min (50-250); Globulin 2.5 g/dL (2.2-4.2); Glucose 369 mg/dL (70-99); Potassium 3.3 mmol/L (3.3-5.1); Protein, Total 6.2 g/dL (5.9-8.4); Sodium Level 140 mmol/L (133-145); Total Bilirubin 0.21 mg/dL (0.00-1.30)
[2024-08-12 22:22] LABS: BETA-HYDROXYBUTYRATE 0.2 mmol/L (0.0-0.3)
[2024-08-12] MEDS: Insulin Lispro 100 UNIT/ML INSULN.PEN 10 UNIT SC (22:29)
[2024-08-12 22:51] LABS: Bedside Glucose 366 mg/dL (74-106)
--- NOTE | 2024-08-12 22:53 | ED.RN ---
GREG MCCRAY CALLED PER PT. REQUEST. SHE IS COMING TO PICK-UP PT. AT THIS TIME
== END 2024-08-12 23:26 | disposition home or self-care (01) ==
PROVIDERS: Emergency Provider Emergency Medicine; PCP Internal Medicine; Visit Provider Emergency Medicine
DX: F10.129 Alcohol abuse with intoxication, unspecified (principal); K74.60 Unspecified cirrhosis of liver; E11.65 Type 2 diabetes mellitus with hyperglycemia; E11.42 Type 2 diabetes mellitus with diabetic polyneuropathy; I10 Essential (primary) hypertension; F17.290 Nicotine dependence, other tobacco product, uncomplicated; Z79.899 Other long term (current) drug therapy; Z86.16 Personal history of COVID-19; Y90.8 Blood alcohol level of 240 mg/100 ml or more
CPT/HCPCS: 80053; 82010; 82077; 82962; 85025; 96360; 96361; 99285; A4216

== ENCOUNTER 2025-01-10 18:08 | Emergency (ER) | payer MEDICARE, SELFPAY ==
[2025-01-10 18:10] VITALS: BP 112/79; PULSE 118; RESP 18; TEMP 37.1; O2SAT 100; BMI 19.3
[2025-01-10 18:14] VITALS: BP 122/79; PULSE 118; RESP 18; TEMP 37.1; O2SAT 100
[2025-01-10 18:47] VITALS: BP 123/84; PULSE 102; RESP 15; TEMP 37.4; O2SAT 97
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
[2025-01-10 19:42] VITALS: BP 137/81; PULSE 98; RESP 18; TEMP 36.9; O2SAT 98
== END 2025-01-10 19:43 | disposition home or self-care (01) ==
PROVIDERS: Emergency Provider Student in an Organized Health Care Education/Training Program; PCP Internal Medicine; Visit Provider Student in an Organized Health Care Education/Training Program
DX: L03.116 Cellulitis of left lower limb (principal); E11.42 Type 2 diabetes mellitus with diabetic polyneuropathy; Z79.4 Long term (current) use of insulin; E78.5 Hyperlipidemia, unspecified; I10 Essential (primary) hypertension; Z96.41 Presence of insulin pump (external) (internal); F32.A Depression, unspecified; Z79.899 Other long term (current) drug therapy; F41.9 Anxiety disorder, unspecified; K21.9 Gastro-esophageal reflux disease without esophagitis; F17.290 Nicotine dependence, other tobacco product, uncomplicated; L03.115 Cellulitis of right lower limb; L02.611 Cutaneous abscess of right foot; L02.612 Cutaneous abscess of left foot
CPT/HCPCS: 99282

== ENCOUNTER 2025-01-31 19:05 | Emergency (ER) | payer MEDICARE, SELFPAY ==
[2025-01-31] VITALS (7 sets, daily range): BP systolic 118–129; BP diastolic 70–89; PULSE 103–117; RESP 15–28; TEMP 36.8–37.3; O2SAT 92–96; BMI 19.4
--- NOTE | 2025-01-31 21:27 | EKG12_ITS ---
Test Reason : COUGH Blood Pressure : */* mmHG Vent. Rate : 111 BPM Atrial Rate : 111 BPM P-R Int : 144 ms QRS Dur : 70 ms QT Int : 306 ms P-R-T Axes : 60 76 65 degrees QTcB Int : 416 ms Sinus tachycardia Otherwise normal ECG Confirmed by EDUARDO BECK, SIN ([id number]), television news video editor NATALYA ALMAZAN ([id number]) on 02/04/2025 9:06:04 AM Referred By: Confirmed By: SIN CLARK MD
--- NOTE | 2025-01-31 21:28 | ED.VIS.DYS ---
HPI History of Present Illness Chief Complaint: Cough Narrative Narrative: Patient is a 49-year-old female presenting to the emergency department for a chronic cough. Patient has an extensive past medical history including bronchitis, cirrhosis, diabetes with insulin pump, hypertension. Patient states that she has had a chronic cough since May however the past week it has significantly worsened. She states that her [employer] are no longer working. She is a smoker. Endorses a dry cough and congestion. Denies fever, chills, sore throat, abdominal pain, nausea, vomiting, diarrhea. Denies any lower extremity edema. She does report ports some chest tightness and shortness of breath. Denies history of PE or DVT. Denies recent travel, surgeries or recent hospitalizations. [facility] Medical History Insulin pump titration Presence of insulin pump Vitamin D deficiency Diabetes 1.5, managed as type 1 HTN (hypertension) Diabetes Uncontrolled depression Chronic alcohol abuse Lumbar compression fracture Insufficiency fracture Lumbar spondylolysis Impingement of right shoulder Herniated nucleus pulposus, L5-S1 Facet syndrome, lumbar Compression fracture of L1 lumbar vertebra History of cirrhosis of liver History of diabetes mellitus Hepatomegaly Peripheral neuropathy Diabetes type 2, controlled Anemia Elevated bilirubin Bleeding tendency Post-menopausal Current use of insulin Irritable bowel Back pain due to injury History of stress test Alcohol abuse Anxiety Diabetes GERD (gastroesophageal reflux disease) Cirrhosis Malnutrition Closed head injury SBP (spontaneous bacterial peritonitis) Hypertension Alcoholic cirrhosis of liver with ascites COVID-19 H. pylori infection Post-menopausal Pancreatitis Asthma Smoker Migraines Chronic diarrhea Recurrent acute pancreatitis Fatty liver Gastritis and duodenitis Breast implant status Anxiety History of alcohol abuse Transaminitis Nicotine abuse Alcoholism HLD (hyperlipidemia) Home Medications ?Medication ?Instructions ?Recorded ?Last Taken ?Type duloxetine 60 mg capsule,delayed 60 mg PO DAILY depression 12/10/21 12/03/23 History release ondansetron 4 mg disintegrating 4 mg PO Q8H PRN nausea and 02/09/22 12/03/23 Rx tablet vomiting #14 tabs midodrine 5 mg tablet 10 mg PO TID blood pressure 03/10/22 12/03/23 History lancets #100 ea 05/02/22 Unknown Rx needle (disp) #500 ea 05/02/22 Unknown Rx lactulose 10 gram/15 mL oral 30 ml PO TID cirrhosis 08/02/22 12/03/23 History solution furosemide 20 mg tablet (Lasix) 40 mg PO DAILY diuretic 08/15/22 12/03/23 History blood sugar diagnostic (OneTouch #100 ea 10/07/22 Unknown Rx Ultra Test strips) blood-glucose meter (OneTouch #1 ea 10/07/22 Unknown Rx Ultra2 Meter) Omnipod 5 G6 Intro Kit (Gen 5) #1 ea 11/16/22 Unknown Rx subcutaneous cartridge with controller (insulin pump cart,auto,BT-cntr) estradiol 0.01% (0.1 mg/gram) 1 g vaginal 2XW yeast 11/07/23 Unknown History vaginal cream alprazolam 0.25 mg tablet (Xanax) 0.25 mg PO BID PRN PRN anxiety 03/15/24 Unknown History gabapentin 300 mg capsule 300 mg PO TID see doctor 03/15/24 Unknown History trazodone 50 mg tablet 25 mg PO QDAY sleep 03/15/24 Unknown History insulin pump cart,automated,BT #15 ea 04/02/24 Unknown Rx potassium chloride 20 mEq 40 meq (2 x 20 mEq) PO DAILY #30 06/03/24 Unknown Rx tablet,extended release(part/cryst) tabs potassium, sodium phosphates 280 1 packet PO BID #60 ea 06/03/24 Unknown Rx mg-160 mg-250 mg oral powder packet amitriptyline 50 mg tablet 50 mg PO QHS 08/12/24 Unknown History hydroxyzine HCl 50 mg tablet 50 mg PO Q6H PRN PRN anxiety 08/12/24 Unknown History pantoprazole 40 mg tablet,delayed 40 mg PO DAILY 08/12/24 Unknown History release atorvastatin 80 mg tablet 80 mg PO QHS #90 tabs 11/19/24 Unknown Rx cholecalciferol (vitamin D3) 50 50 mcg PO QDAY #90 caps 11/19/24 Unknown Rx mcg (2,000 unit) capsule Dexcom G6 Sensor (blood-glucose #3 ea 01/03/25 Unknown Rx sensor) blood-glucose transmitter (Dexcom #1 ea 01/03/25 Unknown Rx G6 Transmitter device) insulin pump cart,auto,BT,G6/7 #15 ea 01/03/25 Unknown Rx (Omnipod 5 G6-G7 Pods (Gen 5) subcutaneous cartridge) albuterol sulfate 2.5 mg/3 mL 2.5 mg (3 mL) continuous 01/31/25 Unknown Clinic (0.083 %) solution for nebulization nebulization ONCE #1 mL insulin lispro 100 unit/mL 80 unit subcut DAILY 01/31/25 Unknown History subcutaneous solution (Humalog U-100 Insulin) Allergy/AdvReac Type Severity Reaction Status Date / Time azithromycin (From Zithromax) AdvReac Diarrhea Verified 01/31/25 19:07 codeine AdvReac Nausea Verified 01/31/25 19:07 promethazine (From Phenergan) AdvReac Vomiting Verified 01/31/25 19:07 Family History Father Cancer Lung CA with tobacco use history. Heart disease Mother Cancer Hx breast CA. Diabetes Hypertension Other Alcoholic cirrhosis of liver with ascites Breast cancer High cholesterol Liver disease Osteoporosis Skin cancer Surgical History Previous back surgery S/P tonsillectomy and adenoidectomy Previous section H/O: knee surgery H/O breast augmentation Social History housing: other details: Recent rehab stay. Prior lived w/ 15, 16 year old children. 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 No acute distress HEENT: Head is normocephalic and atraumatic, sinuses nontender, pupils equal round and reactive. Nares are patent. Oropharynx and throat exams normal. Neck: Supple without lymphadenopathy nontender Cardiovascular: Tachycardic rate and regular rhythm, no murmurs. No rubs or gallops. Normal S1 and S2 Respiratory: End expiratory wheezing in all lung [place]. No rhonchi or rales. Saturating 92% on room air. Abdominal: Soft and nontender. Normal bowel sounds. No guarding or rebound. Nonsurgical abdomen Extremities: No edema. No tenderness. No bruising. Normal range of motion. Normal sensation. Skin: No rash or redness. Neurological: Cranial nerves II through XII are grossly intact. Normal strength and sensation. Normal cerebellar function The rest of the physical exam is unremarkable Const Vital Signs: 01/31/25 19:06 01/31/25 20:07 01/31/25 20:36 Temperature 99.2 F H 98.3 F Temperature Source Oral Oral Pulse Rate 116 H 117 H Respiratory Rate 20 H 28 H Respiratory Effort Blood Pressure 119/89 H 118/73 Blood Pressure Mean 99 88 Pulse Ox 96 92 Oxygen Delivery Method Room Air Room Air Room Air 01/31/25 20:38 01/31/25 21:06 01/31/25 21:38 Temperature Temperature Source Pulse Rate 115 H Respiratory Rate 18 Respiratory Effort Normal Blood Pressure 129/87 H Blood Pressure Mean 101 Pulse Ox Oxygen Delivery Method 01/31/25 21:59 01/31/25 23:00 01/31/25 23:00 Temperature 98.6 F 98.2 F Temperature Source Temporal Temporal Pulse Rate 110 H 112 H Respiratory Rate 16 15 Respiratory Effort Blood Pressure 129/87 H 118/73 118/73 Blood Pressure Mean 101 88 88 Pulse Ox 93 92 Oxygen Delivery Method Room Air Room Air MDM MDM MDM Narrative Medical decision making narrative: Patient is a 49-year-old female presenting to the emergency department for cough and shortness of breath. Patient was seen and examined. Vitals are stable. She is tachycardic at 117 on my evaluation however she is tachycardic on all of her ED visits on chart review. She is afebrile. No tachypnea noted on exam. Saturating 92% on room air. Differential includes but is not limited to: Pneumonia, bronchitis, ACS, URI, less likely PE DuoNeb breathing treatments ordered given the patient's wheezing. Patient's endorsing a mild tension type headache that started after she arrived. Tylenol given. CBC with no leukocytosis and a normal hemoglobin. D-dimer within normal limits. Troponin within normal limits. BMP with no significant abnormalities. Chest x-ray reviewed from earlier today at the urgent care and there is some chronic interstitial changes however no acute opacities, pneumothorax. Patient is reevaluated. Resting in bed comfortably. Updated on the negative workup. Likely URI versus acute bronchitis. She has an albuterol inhaler at home to use as needed. Able to ambulate without difficulty. She is still mildly tachycardic however this is baseline again on chart review for her. In addition she was given breathing treatments which can contribute to the tachycardia. Patient discharged from the Emergency Department. I do not feel that the patient's evaluation reveals any acute reason for admission at this time. I instructed them to either follow-up with their primary care physician or promptly return to the Emergency Department for reevaluation should symptoms worsen or new symptoms develop. I explained what symptoms would indicate the need to return to the emergency department. Shared decision making was used. The patient voiced understanding of the treatment plan and is agreeable with it. Clinical impression Acute bronchitis History & Record Review Discussion w/independent historian: Patient and Family Lab Data Attestation: I reviewed the patient's lab results. Labs: Laboratory Results - last 24 hr 01/31/25 01/31/25 01/31/25 21:52 22:26 22:30 WBC 10.5 RBC 4.15 L Hgb 13.6 Hct 39.7 MCV 95.7 MCH 32.8 H MCHC 34.3 RDW Std Deviation 47.9 H RDW Coeff of Teressa 13.9 Plt Count 164 MPV 9.8 Immature Gran % (Auto) 0.300 Neut % (Auto) 65.0 Lymph % (Auto) 28.2 Miner % (Auto) 5.0 Eos % (Auto) 0.9 Baso % (Auto) 0.6 Absolute Neuts (auto) 6.8 Absolute Lymphs (auto) 2.96 Nucleated RBC % 0 D-Dimer Quant (PE/DVT) Cancelled 0.27 Sodium 137 Potassium 4.0 Chloride 99 Carbon Dioxide 26.4 Anion Gap 12 BUN 6 Creatinine 0.65 L Estim Creat Clear Calc 89.25 Est GFR (MDRD) Non-Af 107 BUN/Creatinine Ratio 8.9 L Glucose 109 H Calcium 10.0 Troponin T High Sens 7 POC Glucose 94 Discharge Plan Triage Chief Complaint: Cough ED Provider: Christy Huerta Dx/Rx/DC Orders Clinical Impression: Bronchitis Instructions: Acute Bronchitis Prescriptions: No Action (DME) Omnipod 5 G6 Intro Kit (Gen 5) Cartridge See Rx Instructions .Route Qty: 1 0RF Rx Instructions: As directed estradiol 0.01 % (0.1 mg/gram) cream 1 g vaginal 2XW trazodone 50 mg tablet 25 mg PO QDAY alprazolam [Xanax] 0.25 mg tablet 0.25 mg PO BID PRN PRN (Reason: anxiety) gabapentin 300 mg capsule 300 mg PO TID atorvastatin 80 mg tablet 80 mg PO QHS Qty: 90 1RF cholecalciferol (vitamin D3) 50 mcg (2,000 unit) capsule 50 mcg PO QDAY Qty: 90 1RF albuterol sulfate 2.5 mg /3 mL (0.083 %) solution for nebulization 2.5 mg continuous nebulization ONCE Qty: 1 0RF duloxetine 60 mg capsule,delayed release(DR/EC) 60 mg PO DAILY Patient Comments: take 1 capsule by mouth once daily ondansetron 4 mg tablet,disintegrating 4 mg PO Q8H PRN (Reason: nausea and vomiting) Qty: 14 0RF midodrine 5 mg tablet 10 mg PO TID Patient Comments: TAKE TWO TABLETS (10 MG)CBY MOUTH 3 TIMES A DAY WITH MEALS lactulose 10 gram/15 mL solution 30 ml PO TID Patient Comments: TAKE 30 ML BY MOUTH 4CTIMES A DAY (DME) lancets [facility] See Rx Instructions .Route Qty: 100 0RF Rx Instructions: As directed (DME) needle (disp) Needle See Rx Instructions .Route Qty: 500 0RF Rx Instructions: As directed furosemide [Lasix] 20 mg tablet 40 mg PO DAILY potassium chloride 20 mEq Tablet,Er Particles/Crystals 40 meq PO DAILY Qty: 30 0RF potassium, sodium phosphates 280-160-250 mg Powder In Packet 1 packet PO BID Qty: 60 0RF insulin lispro [Humalog U-100 Insulin] 100 unit/mL solution 80 unit subcut DAILY Patient Comments: pump Rx Instructions: pump --ssi hydroxyzine HCl 50 mg tablet 50 mg PO Q6H PRN PRN (Reason: anxiety) amitriptyline 50 mg tablet 50 mg PO QHS pantoprazole 40 mg tablet,delayed release (DR/EC) 40 mg PO DAILY (DME) blood-glucose meter [OneTouch Ultra2 Meter] [facility] See Rx Instructions .Route Qty: 1 0RF Rx Instructions: As directed (DME) OneTouch Ultra Test Strip See Rx Instructions .Route Qty: 100 5RF Rx Instructions: TID (DME) insulin pump cart,automated,BT Cartridge See Rx Instructions .Route Qty: 15 6RF Rx Instructions: 1 pod q 48 hours (DME) Dexcom G6 Transmitter Device See Rx Instructions .Route Qty: 1 3RF Rx Instructions: As directed (DME) Dexcom G6 Sensor Device See Rx Instructions .Route Qty: 3 6RF Rx Instructions: As directed (DME) Omnipod 5 G6-G7 Pods (Gen 5) Cartridge See Rx Instructions .Route Qty: 15 5RF Rx Instructions: 1 pod q 48 hours Primary Care Provider: Valerie Mullins Referrals: Valerie Mullins MD [Primary Care Provider] - 2 Days Activity Restrictions/Additional Instructions: Your evaluation in the Emergency Department did not reveal any acute reason for admission. However, I want to emphasize that you may be early in the course of a disease process or illness even if it is not present. For this reason you should follow-up within 24 hours for reevaluation with either your primary care physician or if necessary back here in the Emergency Department. You should return to the Emergency Department immediately if your symptoms worsen or new symptoms develop. Print Language: Kiswahili Disposition Disposition: Home, Self Care
[2025-01-31 22:26] LABS: Anion Gap 12 (5-15); BUN 6 mg/dL (4-19); BUN/Creat Ratio 8.9 RATIO (10-20); Calcium,Total 10.0 mg/dL (7.6-11.0); Carbon Dioxide 26.4 mmol/L (21.0-32.0); Chloride 99 mmol/L (98-108); Estimated Creatinine Clearance 89.25 ml/min (50-250); Glucose 109 mg/dL (70-99); Potassium 4.0 mmol/L (3.3-5.1); Troponin T High Sensitivity 7 ng/L (<=14)
[2025-01-31 22:29] LABS: Hematocrit 39.7 % (37-47); Hemoglobin 13.6 g/dL (12.0-15.0); Immature Granulocytes Count 0.030 X10^3/uL (0.0-0.0); Mean Corp Hgb Conc 34.3 g/dL (32-36); Mean Corpuscular Volume 95.7 fL (81-99); Mean Platelet Vol. 9.8 fl (6.2-12.0); NRBC Flagged by Analyzer 0 % (0-5); Platelet Count 164 K/mm3 (150-450); RBC Distribution Width CV 13.9 % (11.6-14.6); RBC Distribution Width SD 47.9 fl (35.1-43.9); Red Blood Count 4.15 M/mm3 (4.2-5.4); White Blood Count 10.5 K/mm3 (4.4-11.0)
--- NOTE | 2025-01-31 22:48 | ED.RN ---
2226 pt concerned her blood sugar was low,blood sugar checked at 94.Pt asymptomatic.
[2025-01-31 23:34] LABS: D-Dimer Quantitative (DVT/PE) 0.27 FEU/ug/m (0.27-0.49)
== END 2025-01-31 23:59 | disposition home or self-care (01) ==
PROVIDERS: Emergency Provider Student in an Organized Health Care Education/Training Program; PCP Internal Medicine; Visit Provider Student in an Organized Health Care Education/Training Program
DX: J20.9 Acute bronchitis, unspecified (principal); E13.42 Other specified diabetes mellitus with diabetic polyneuropathy; Z79.4 Long term (current) use of insulin; I10 Essential (primary) hypertension; F17.290 Nicotine dependence, other tobacco product, uncomplicated; Z96.41 Presence of insulin pump (external) (internal); Z79.899 Other long term (current) drug therapy; Z86.16 Personal history of COVID-19
CPT/HCPCS: 80048; 82962; 84484; 85025; 85379; 87631; 93005; 94640; 94760; 99283; A4216

== ENCOUNTER → 2025-01-31 | Outpatient (CLI) | payer MEDICARE, OTHER, SELFPAY ==
--- NOTE | 2025-01-31 17:05 | RAD_ITS ---
PROCEDURE: CHEST PA AND LATERAL 01/31/2025 REASON FOR EXAM: PERSISTING COUGH TECHNIQUE: Procedure Code: RADCXR Modality: DX Procedure: CHEST PA AND LATERAL COMPARISON: None FINDINGS: Lungs: The lungs are symmetrically expanded. Lung volumes are within normal limits. Mildly coarsened perihilar reticular lung markings are noted which may be secondary to chronic interstitial thickening. There is no consolidation. There is no peribronchial thickening. There is no pulmonary vascular redistribution. Pleura: No significant pleural effusion seen. There is no evidence of pneumothorax. Mediastinum: There is no mediastinal widening or mediastinal shift. Heart: The cardiac silhouette is not enlarged. Harleen: The pulmonary harleen are not enlarged or retracted. Osseous: No acute fracture is seen. Deformity of the distal left clavicle consistent with an old injury. Moderately severe anterior compression fracture deformity at L1 with sclerotic density likely representing vertebroplasty change noted. RAD/Chest PA and Lateral IMPRESSION: No radiographic evidence of an acute pulmonary infiltrate. - Other findings discussed above. Reading Location: [id number]
== END | disposition home or self-care (01) ==
LOC: MTRAD 17:04
PROVIDERS: PCP Internal Medicine; Referring Provider Physician Assistant Surgical; Visit Provider Physician Assistant Surgical
DX: J20.9 Acute bronchitis, unspecified (principal)
CPT/HCPCS: 71046